=== PATIENT | male | born 1955 | race Caucasian/White ===

== ENCOUNTER 2023-04-09 08:55 | Outpatient (OUT) | payer MEDICARE, OTHER, SELFPAY ==
--- NOTE | 2023-04-09 09:19 | XR_ITS ---
The [address] [address] Patient Name: JANICE PANDYA MRN: [id number] date: 1955 Sex: M Assigned Patient Location: Current Patient Location: Accession/Order Number: [id number] Exam Date: 04/09/2023 09:22 Report Date: 04/09/2023 09:43 At the request of: JAGDEEP SCHMITZ Procedure: XR foot RT min 3V PROCEDURE: XR foot RT min 3V HISTORY: RIGHT FOOT PAIN ; deviation of the fifth toe causing irritation COMPARISON: XR foot right 11/28/2022 FINDINGS: BONES:Marked degenerative changes the first metatarsal phalangeal joint and chronic lateral deviation of the first toe. Resection of second toe at the metatarsophalangeal joint. Resection of distal end of fourth toe. Medial deviation of tip of fifth toe. SOFT TISSUES:Mild distal dorsal soft tissue swelling. EFFUSION:None visible. OTHER: Negative. IMPRESSION: 1. Stable surgical changes and chronic degenerative changes. 2. No appreciable new findings involving fifth toe. Electronically authenticated by: HUSAM GAMEZ Date: 04/09/2023 09:43
== END 2023-04-09 08:56 ==
PROVIDERS: PCP Family Medicine; Visit Provider Physician Assistant
DX: M79.671 Pain in right foot (principal); L97.511 Non-pressure chronic ulcer of other part of right foot limited to breakdown of skin; E11.621 Type 2 diabetes mellitus with foot ulcer; L60.8 Other nail disorders; E11.40 Type 2 diabetes mellitus with diabetic neuropathy, unspecified; E11.65 Type 2 diabetes mellitus with hyperglycemia; B35.1 Tinea unguium; I25.10 Atherosclerotic heart disease of native coronary artery without angina pectoris; M25.872 Other specified joint disorders, left ankle and foot; M20.5X2 Other deformities of toe(s) (acquired), left foot; M20.42 Other hammer toe(s) (acquired), left foot
CPT/HCPCS: 11055; 73630

== ENCOUNTER 2023-05-01 09:56 | Outpatient (OUT) | payer MEDICARE, OTHER, SELFPAY | END 2023-05-01 09:57 | disposition home or self-care (01) | LOC: WC 09:56 | PROVIDERS: PCP Family Medicine; Visit Provider Podiatrist Foot & Ankle Surgery | DX: E11.621 Type 2 diabetes mellitus with foot ulcer (principal); E11.65 Type 2 diabetes mellitus with hyperglycemia; L84 Corns and callosities; M20.42 Other hammer toe(s) (acquired), left foot; M20.5X2 Other deformities of toe(s) (acquired), left foot; L60.8 Other nail disorders; M25.872 Other specified joint disorders, left ankle and foot; I25.10 Atherosclerotic heart disease of native coronary artery without angina pectoris; B35.1 Tinea unguium; E11.40 Type 2 diabetes mellitus with diabetic neuropathy, unspecified; E78.5 Hyperlipidemia, unspecified; E03.9 Hypothyroidism, unspecified; L97.511 Non-pressure chronic ulcer of other part of right foot limited to breakdown of skin | CPT/HCPCS: G0463 ==

== ENCOUNTER 2023-08-09 12:24 | Outpatient (OUT) | payer MEDICARE, OTHER, SELFPAY ==
[2023-08-09 12:55] LABS: Basophils Absolute Auto 0.1 10^3/uL (0.0-0.1); Eosinophils Absolute Auto 1.7 10^3/uL (0.0-0.7); Eosinophils Percent Auto 18.8 % (0.9-7.0); Hemoglobin 12.5 g/dL (14.0-18.0); Immature Granulocytes Abs Auto 0.02 10^3/uL (0.00-0.03); Immature Granulocytes Pct Auto 0.2 % (0.0-0.5); Lymphocytes Absolute Auto 2.3 10^3/uL (1.2-3.8); Lymphocytes Percent Auto 24.4 % (20.5-60.0); Mean Corpuscular HGB Conc 29.8 g/dL (29.9-35.2); Mean Corpuscular Volume 77.3 fL (80.0-94.0); Mean Platelet Volume 10.7 fL (9.5-13.5); Monocytes Absolute Auto 0.7 10^3/uL (0.3-0.8); Monocytes Percent Auto 7.8 % (1.7-12.0); Neutrophils Absolute Auto 4.4 10^3/uL (1.4-6.5); Neutrophils Percent Auto 47.8 % (43.0-75.0); Platelet Count 281 10^3/uL (150-450); Red Blood Count 5.43 10^6/uL (4.70-6.10); Red Cell Distribution Width 18.4 % (11.0-15.0); White Blood Count 9.3 10^3/uL (4.0-11.0)
[2023-08-09 13:31] LABS: Creatinine Urine Random 82.09 mg/dL (20.00-300.00); Microalbum Creatinine Ratio Ur 21.9 mg/g (0.0-29.9); Microalbumin Urine Random 1.8 mg/dL (<=30.0)
[2023-08-09 13:32] LABS: Alanine Aminotransferase 25 U/L (16-63); Albumin Globulin Ratio 0.9; Albumin Level 3.9 g/dL (3.4-5.0); Alkaline Phosphatase 67 U/L (46-116); Anion Gap 13.7; Aspartate Amino Transferase 18 U/L (15-37); BUN Creatinine Ratio 20.8; Bilirubin Total 0.5 mg/dL (0.2-1.0); Calcium 9.3 mg/dL (8.5-10.1); Carbon Dioxide 25.5 mmol/L (21.0-32.0); Chloride 103 mmol/L (98-107); Chol HDL Ratio 9.6; Cholesterol 173 mg/dL (<=200); Estimated GFR (African America >60 (>=60); Estimated GFR (Non-African Ame 55 (>=60); Globulin 4.2 g/dL; Glucose 137 mg/dL (74-106); HDL Cholesterol 18 mg/dL (40-60); Potassium 4.2 mmol/L (3.5-5.1); Sodium 138 mmol/L (136-145); Total Protein 8.1 g/dL (6.4-8.2); Triglycerides 359 mg/dL (<=150); VLDL CHOLESTEROL 71.8 mg/dL
[2023-08-09 13:47] LABS: Prostate Specific Antigen Dx 0.48 ng/mL (<=4.00)
== END 2023-08-09 12:25 | disposition home or self-care (01) ==
LOC: LAB 12:26
PROVIDERS: PCP Family Medicine; Visit Provider Family Medicine
DX: E11.59 Type 2 diabetes mellitus with other circulatory complications (principal); Z12.5 Encounter for screening for malignant neoplasm of prostate
CPT/HCPCS: 36415; 80053; 80061; 82043; 82570; 84153; 85025

== ENCOUNTER 2024-11-25 16:09 | Outpatient (OUT) | payer MEDICARE, OTHER, SELFPAY | END 2024-11-25 16:10 | disposition home or self-care (01) | LOC: WC 16:09 | PROVIDERS: PCP Family Medicine; Visit Provider Physician Assistant | DX: L84 Corns and callosities (principal); E11.65 Type 2 diabetes mellitus with hyperglycemia; E11.621 Type 2 diabetes mellitus with foot ulcer; L97.428 Non-pressure chronic ulcer of left heel and midfoot with other specified severity | CPT/HCPCS: 11043 ==

== ENCOUNTER 2024-12-10 09:52 | Outpatient (OUT) | payer MEDICARE, OTHER, SELFPAY ==
--- OUTSIDE RECORDS SUMMARY | 2024-12-10 10:00 | XMS_ITS | CCD ---
Author Organization [facility] Care Team Providers Care Bartender Helper Name Role Phone TANJA NITISH~[phone] UNKNOWN Unavailable Unavailable Ayisire, Eseoghene N Unavailable Unavailable Ayisadam, Eseoghene N Unavailable Unavailable Nitish Martin Unavailable Unavailable Unavailable Jaelyn Espinal Unavailable Margaux Christian Admitting Unavailable Nitish Martin Primary Care Unavailable Margaux Christian Attending Unavailable Nitish Martin Primary Care Unavailable Margaux Christian Attending Unavailable Margaux Christian Admitting Unavailable Tanja, Dr. Nitish Crump Primary Care Unavaila Margaux South Attending Unavailable Mark, Dr. Helga Storey Referring Unavail able Tanja, Dr. Nitish Crump Primary Care Unavaila daisy Queen, Dr. Martin Zarate Referring Unava ilable Curt, Dr. Martin Zarate Attending Unava ilcarla Flores, Dr. Helga Storey Attending Unavail able Tanja, Dr. Nitish Crump Primary Care Unavaila daisy Flores, Dr. Helga Storey Referring Unavail able NISHA IVORY Attending Unavailable NISHA VIORY Admitting Unavailable DR NITISH MARTIN Primary Care Unavailable SHAIKH Magui GOMEZ Attending Unavailable DR NITISH MARTIN Primary Care Unavailable Husam Fischer Consulting Unavailable SEVEN GOMEZIKH H Admitting Unavailable NISHA IVORY Procedure Practitioner RHONDA Fulton Consulting Unavailable NISHA IVORY Consulting Unavailable DALLIN, WYATT Consulting Unavailable JESSICA STEIN Consulting Unavailable HELGA GOLDBERG Consulting Unavailable PATRICIA, JUNIOR H Consulting Unavailable AYYAGARI ., LILA Consulting Unavailable NISHA IVORY Attending Unavailable NISHA IVORY Admitting Unavailable TANJA, DR CLEMENS Primary Care Unavailable HIGHLANDER, NISHA Núñez Consulting Unavailable HIGHLANDER, NISHA Núñez Attending Unavailable HIGHLANDER, NISHA Núñez Admitting Unavailable TANJA, DR CLEMENS Primary Care Unavailable HIGHLANDER, NISHA Núñez Attending Unavailable HIGHLANDER, NISHA Núñez Admitting Unavailable TANJA, DR CLEMENS Primary Care Unavailable HIGHLANDER, NISHA Núñez Admitting Unavailable TANJA, DR CLEMENS Primary Care Unavailable HIGHLANDER, NISHA Núñez Attending Unavailable HIGHLANDER, NISHA Núñez Attending Unavailable HIGHLANDER, NISHA Núñez Admitting Unavailable TANJA, DR CLEMENS Primary Care Unavailable WEST, DR ROSA MARIA Smith Consulting Unavailable HIGHLANDER, NISHA Núñez Consulting Unavailable AGUBOSIM, WYATT Consulting Unavailable LONG, JESSICA Consulting Unavailable TANJA, DR CLEMENS Primary Care Unavailable Zieblexie, Husam Consulting Unavailable HIGHLANDER, NISHA Núñez Attending Unavailable HIGHLANDER, NISHA Núñez Admitting Unavailable HIGHLANDER, NISHA Núñez Consulting Unavailable TANJA, DR CLEMENS Primary Care Unavailable AINSLEY, JAGDEEP Admitting Unavailable AINSLEY, JAGDEEP Attending Unavailable TANJA, DR CLEMENS Primary Care Unavailable HIGHLANDER, NISHA Núñez Attending Unavailable HIGHLANDER, NISHA Núñez Admitting Unavailable HIGHLANDER, NISHA Núñez Admitting Unavailable TANJA, DR CLEMENS Primary Care Unavailable HIGHLANDER, NISHA Núñez Consulting Unavailable HIGHLANDER, NISHA Núñez Attending Unavailable WHITAKERJOSE MARTIN Consulting Unavailable TANJA, DR CLEMENS Primary Care Unavailable HIGHLANDER, NISHA Núñez Admitting Unavailable HIGHLANDER, NISHA Núñez Attending Unavailable TANJA, DR CLEMENS Primary Care Unavailable HIGHLANDER, NISHA Núñez Attending Unavailable HIGHLANDER, NISHA Núñez Admitting Unavailable HIGHLANDER, NISHA Núñez Admitting Unavailable TANJA, DR CLEMENS Primary Care Unavailable HIGHLANDER, NISHA Núñez Attending Unavailable HIGHLANDER, NISHA Núñez Attending Unavailable HIGHLANDER, NISHA Núñez Admitting Unavailable TANJA, DR CLEMENS Primary Care Unavailable TANJA, DR CLEMENS Primary Care Unavailable HIGHLANDER, NISHA Núñez Attending Unavailable HIGHLANDER, NISHA Núñez Admitting Unavailable HIGHLANDER, NISHA Núñez Attending Unavailable HIGHLANDER, NISHA Núñez Admitting Unavailable TANJA, DR CLEMENS Primary Care Unavailable HIGHLANDER, NISHA Núñez Attending Unavailable HIGHLANDER, NISHA Núñez Admitting Unavailable TANJA, DR CLEMENS Primary Care Unavailable HIGHLANDER, NISHA Núñez Attending Unavailable HIGHLANDER, NISHA Núñez Admitting Unavailable ZieberHusam Consulting Unavailable TANJA, DR CLEMENS Primary Care Unavailable HIGHLANDER, NISHA Núñez Consulting Unavailable HIGHLANDER, NISHA Núñez Admitting Unavailable TANJA, DR CLEMENS Primary Care Unavailable HIGHLANDER, NISHA Núñez Attending Unavailable Barbara Ellis Unavailable Nitish Martin DO Primary Care Provider MARTIN QUEEN Attending Unavailable NITISH MARTIN Primary Care Unavailable Lashaun Bradley DO Unavailable [phone] Nitish Martin DO Primary Care Provider [phone] Elliot Queen MD Unavailable [phone] Nisha Ivory MD Unavailable LASHAUN BRADLEY Attending Unavailable NITISH MARTIN Referring Unavailable NITISH MARTIN Attending Unavailable EMELYN ZUNIGA Attending Unavailable LASHAUN BRADLEY Attending Unavailable LASHAUN BRADLEY Attending Unavailable NITISH MARTIN Referring Unavailable JOYCE RAMSEY Attending Unavailable NITISH MARTIN Attending Unavailable NITISH MARTIN Referring Unavailable BARI CHOWDHURY Attending Unavailable LASHAUN BRADLEY Attending Unavailable Allergies Allergy Classification Reported Allergen(s) Allergy Type Date of Onset Reaction(s) Facility (4 sources) Angiotensin Converting Enzyme (Enris) Inhibitors; Translations: [NERIS Inhibitors] Allergy to drug (finding) 3 Hypotension [facility] 3 Repository (1 source) Angiotensin-conv erting enzyme inhibitor agent Drug Intolerance 3 Unknown [facility] Medications Current Medications Medication Drug Class(es) Dates Sig (Normalized) Sig (Original) aspirin 81 mg delayed release oral tablet (20 sources) Platelet Aggregation Inhibitor, Nonsteroidal Anti-inflammatory Drug take 1 tablet by mouth in the morning aspirin 81 MG EC tablet Take 81 mg by mouth in the morning. Active Aspirin Active atorvastatin 20 mg oral tablet (20 sources) HMG-CoA Reductase Inhibitor Start: 10-15-2024 take 1 tablet by mouth once daily in the evening atorvastatin (Lipitor) 20 MG tablet Indications: Mixed hyperlipidemia (CMS/HCC) TAKE 1 TABLET BY MOUTH EVERY DAY IN THE EVENING FOR 90 DAYS 90 tablet 3 10/15/2024 Active Start: 01-07-2024 take 1 tablet by rob th once daily in the evening atorvastatin (Lipitor) 20 MG tablet Indications: Mixed hyperlipidemia (CMS/HCC) TAKE 1 TABLET BY MOUTH EVERY DAY IN THE EVENING FOR 90 DAYS 90 tablet 3 01/07/2024 Active Atorvastatin Jacki cium Active Blood Glucose Monitoring Suppl (Luma[employer]uch Verio Flex System) w/Device kit (13 sources) Blood Glucose Monitoring Suppl (One[employer]uch Verio Flex System) w/Device kit Active canagliflozin 100 mg oral tablet (17 sources) Sodium-Glucose Cotransporter 2 Inhibitor take 1 tablet by mouth once daily canagliflozin (Invokana) 100 mg Take 1 tablet (100 mg) by mouth once daily. 0 Active Invokana Active carvedilol 6.25 mg oral tablet (20 sources) alpha-Adrenergic Feroz, beta-Adrenergic Feroz Start: 01-16-2024 take 1 tablet by mouth twice daily at mealtime carvedilol (Coreg) 6.25 mg tablet Indications: Multiple vessel coronary artery disease TAKE 1 TABLET BY MOUTH TWICE A DAY WITH MEALS 180 tablet 0 01/16/2024 Active Carvedilol Activ e ciclopirox 10 mg/ml medicate d shampoo (20 sources) Start: 06-27-2024 Ciclopirox 1 % shampoo Indications: Other seborrheic dermatitis Lather on wet hair, leave on 5 min, rinse 2-3 x week, 30 day supply 120 mL 11 06/27/2024 Active Start: 06-27-2024 ciclopirox (Lo prox) 0.77 % cream Indications: Other seborrheic dermatitis Apply thin layer to affected area once a day, 30 day supply 30 g 11 06/27/2024 Active clindamycin 300 mg oral capsule (1 source) Lincosamide Antibacterial Start: 05-10-2023 take 1 capsule by mouth every eight hours Clindamycin HCl 300 MG 1 cap(s) Orally tid for 10 day(s) May, Active clopidogrel 75 mg oral tablet (20 sources) P2Y12 Platelet Inhibitor take 1 tablet by mouth in the morning clopidogrel (Plavix) 75 MG tablet Take 75 mg by mouth in the morning. Active Clopidogrel Bisu lfate Active dapagliflozin 5 mg oral tablet (16 sources) Sodium-Glucose Cotransporter 2 Inhibitor Start: 03-03-2024 End: 03-03-2025 take 1 tablet by mouth once daily dapagliflozin (Farxiga) 5 MG Indications: Type 2 diabetes mellitus with other circulatory complications (CMS/HCC) Take 1 tablet (5 mg) by mouth Daily 90 tablet 3 03/03/2024 03/03/2025 Active take 1 tablet by mouth once valeriano y dapagliflozin propanediol (Farxiga) 5 mg Take 1 tablet (5 mg) by mouth once daily. 0 Active 0.5 ml dulaglutide 3 mg/ml auto-injector (15 sources) GLP-1 Receptor Agonist dulagluti de (Trulicity) 1.5 mg/0.5 mL pen injector injection Inject under the skin. 0 Active Trulicity 0.75 M G/0.5ML Subcutaneous Solution Pen-injector as directed Quantity: 0 Refills: 0 Ordered: 27-Sep-2021 DO Active fenofibrate 145 mg oral tablet (20 sources) Peroxisome Proliferator Receptor alpha Agonist Start: 08-31-2023 take 1 tablet by mouth once daily fenofibrate (Tricor) 145 mg tablet Indications: Hyperlipidemia, unspecified hyperlipidemia type Take 1 tablet (145 mg) by mouth once daily. 90 tablet 1 08/31/2023 Active Fenofibrate Acti ve 24 hr isosorbide mononitrate 60 mg extended release oral tablet (20 sources) Nitrate Vasodilator Start: 10-20-2021 take 1 tablet by mouth once daily isosorbide mononitrate ER (Imdur) 60 mg 24 hr tablet Take 1 tablet (60 mg) by mouth once daily. 0 10/20/2021 Active Start: 10-20-2021 take 1 tablet by rob th once daily Isosorbide Mononitrate ER 30 MG Oral Tablet Extended Release 24 Hour TAKE 1 TABLET DAILY. Quantity: 90 Refills: 3 Ordered: 20-Oct-2021 Helga Flores DO Start : 20-Oct-2021 Active levothyroxine sodium 0.2 mg oral tablet (20 sources) l-Thyroxine Start: 06-11-2023 End: 07-28-2024 take 1 tablet by mouth once daily levothyroxine (Synthroid, Levoxyl) 200 MCG tablet Indications: Other specified hypothyroidism (CMS/HCC) TAKE 1 TABLET BY MOUTH EVERY DAY 90 tablet 3 07/28/2024 Active Synthroid Active 24 hr metFORMIN hydrochloride 500 mg extended release oral tablet (20 sources) Biguanide Start: 08-06-2023 End: 09-02-2024 take 1 tablet by mouth twice daily metFORMIN XR (Glucophage-XR) 500 MG 24 hr tablet Indications: Type 2 diabetes mellitus with other circulatory complications (CMS/HCC) TAKE 1 TABLET BY MOUTH TWICE A DAY 180 tablet 1 09/02/2024 Active take 1 tablet by mouth every twe lve hours metFORMIN, OSM, (Fortamet) 500 mg 24 hr tablet Take 1 tablet (500 mg) by mouth every 12 hours. Do not crush, chew, or split. 0 Active take 1 tablet by th every twelve hours at mealtime metFORMIN HCl - 500 MG Oral Tablet TAKE 1 TABLET EVERY 12 HOURS WITH FOOD. Quantity: 0 Refills: 0 Ordered: 23-Jan-2023 DO Active take 1 tablet by mouth once valeriano y metFORMIN HCl - 1000 MG Oral Tablet TAKE 1 TABLET EVERY 12 HOURS DAILY. Quantity: 0 Refills: 0 Ordered: 27-Sep-2021 DO Active metFORMIN HCl Ac tive nitroglycerin 0.4 mg subling ual tablet (20 sources) Nitrate Vasodilator nitroglyceri n (Nitrostat) 0.[address] 0.4 mg under the tongue every 5 (five) minutes if needed for chest pain. Active Nitrostat Not-Ta gregory Semaglutide, 2 MG/DOSE, (Ozempic, 2 MG/DOSE,) 8 MG/3ML solution pen-injector (7 sources) Start: 09-01-2024 inject 2 mg by subcutaneous injection every week Semaglutide, 2 MG/DOSE, (Ozempic, 2 MG/DOSE,) 8 MG/3ML solution pen-injector Indications: Type 2 diabetes mellitus with other circulatory complications (CMS/HCC) Inject 2 mg under the skin 1 (one) time per week 9 mL 3 09/01/2024 Active Completed/Discontinued Medications Medication Drug Class(es) Dates Sig (Normalized) Sig (Original) semaglutide (Ozempic, 1 MG/DOSE,) 4 MG/3ML solution pen-injector (8 sources) Start: 03-03-2024 End: 09-01-2024 inject 1 mg by subcutaneous injection every week semaglutide (Ozempic, 1 MG/DOSE,) 4 MG/3ML solution pen-injector Indications: Type 2 diabetes mellitus with other circulatory complications (CMS/HCC) Inject 1 mg under the skin 1 (one) time per week 9 mL 3 03/03/2024 09/01/2024 Discontinued Start: 03-03-2024 End: 03-03-2025 inject 1 mg by subcutaneous injection every week semaglutide (Ozempic, 1 MG/DOSE,) 4 MG/3ML solution pen-injector Indications: Type 2 diabetes mellitus with other circulatory complications (CMS/HCC) Inject 1 mg under the skin 1 (one) time per week 9 mL 3 03/03/2024 03/03/2025 Active Problems Active Problems Problem Classification Problem Date Documented Date Episodic/Chronic Acquired foot deformities (1 source) Other hammer toe(s) (acquired), left foot; Translations: [OTHER HAMMER TOES ACQUIRED LT FOOT] Onset: 12-05-2022 Chronic Acute cerebrovascular disease (1 source) Other nontraumatic subarachnoid hemorrhage; Translations: [OTH NONTRAUM SUBARACHNOID HEMORR] Onset: 11-22-2022 Chronic Chronic kidney disease (15 sources) Chronic kidney disease stage 3A ; Translations: [Stage 3a chronic kidney disease (CKD)] Onset: 08-09-2023 08-09-2023 Chronic Chronic ulcer of skin (9 sources) Non-pressure chronic ulcer of other part of right foot limited to breakdown of skin; Translations: [Non-pressure chronic ulcer of other part of right foot with fat layer exposed] Onset: 03-28-2022 Chronic Congestive heart failure; nonhypertensive (3 sources) Congestive heart failure stage C; Translations: [Congestive heart failure, unspecified] Onset: 08-31-2023 08-31-2023 Chronic Coronary atherosclerosis and other heart disease (20 sources) Multi vessel coronary artery disease; Translations: [Coronary atherosclerosis of unspecified type of vessel, lytton or graft] Onset: 03-29-2016 01-29-2024 Chronic Coronary atherosclerosis and other heart disease (2 sources) Presence of aortocoronary bypass graft; Translations: [Presence of aortocoronary bypass graft] Onset: 08-31-2023 Episodic Diabetes mellitus with complications (20 sources) Type 2 diabetes mellitus with diabetic neuropathy, unspecified; Translations: [Type 2 diabetes mellitus with hyperglycemia] Onset: 03-22-2022 Chronic Diabetes mellitus without complication (16 sources) Diabetes mellitus; Translations: [Diabetes mellitus without mention of complication, type II or unspecified type, not stated as uncontrolled] Onset: 08-31-2023 08-31-2023 Chronic Disorders of lipid metabolism (20 sources) Hyperlipidemia; Translations: [Other and unspecified hyperlipidemia] Onset: 12-05-2022 01-29-2024 Chronic Esophageal disorders (13 sources) Gastroesophageal reflux disease without esophagitis; Translations: [Gastro-esophageal reflux disease without esophagitis] Onset: 03-29-2016 08-06-2023 Chronic Essential hypertension (20 sources) Hypertensive disorder; Translations: [Unspecified essential hypertension] Onset: 08-31-2023 01-29-2024 Chronic Gout and other crystal arthropathies (1 source) Gout, unspecified; Translations: [GOUT UNSPECIFIED] Onset: 12-05-2022 Chronic Immunizations and screening for infectious disease (2 sources) Patient encounter status; Translations: [Encounter for immunization] 12-04-2024 Episodic Infective arthritis and osteomyelitis (except that caused by tuberculosis or sexually transmitted disease) (1 source) Other acute osteomyelitis, right ankle and foot; Translations: [OTH ACUTE OSTEOMYEL RT ANKLE FOOT] Onset: 03-28-2022 Chronic Osteoarthritis (13 sources) Osteoarthritis of knee; Translations: [Osteoarthritis of knee, unspecified] Onset: 03-29-2016 08-06-2023 Chronic Other acquired deformities (1 source) Contracture, left ankle; Translations: [CONTRACTURE LEFT ANKLE] Onset: 12-05-2022 Chronic Other aftercare (2 sources) exterminator helper (current) use of insulin; Translations: [correction (current) use of insulin ([facility])] Onset: 08-31-2023 Episodic Other bone disease and musculoskeletal deformities (2 sources) Absence of toe; Translations: [Acquired absence of other right toe(s)] 08-04-2024 Episodic Other circulatory disease (16 sources) Patient post angioplasty; Translations: [Other postprocedural status] Onset: 08-31-2023 01-29-2024 Episodic Other circulatory disease (2 sources) Peripheral vascular angioplasty status; Translations: [Peripheral vascular angioplasty status] Onset: 08-31-2023 Episodic Other nutritional; endocrine; and metabolic disorders (10 sources) Obesity; Translations: [Obesity, unspecified] Chronic Other nutritional; endocrine; and metabolic disorders (6 sources) Overweight in adulthood with body mass index of 25 or more but less than 30; Translations: [Overweight] Onset: 01-29-2024 01-29-2024 Episodic Other nutritional; endocrine; and metabolic disorders (2 sources) Body mass index (BMI) 29.0-29.9, adult; Translations: [Body mass index (BMI) 29.0-29.9, adult] Onset: 01-29-2024 Episodic Other screening for suspected conditions (not mental disorders or infectious disease) (13 sources) Cardiovascular stress test abnormal; Translations: [Other nonspecific abnormal results of function study of cardiovascular system] Onset: 08-31-2023 08-31-2023 Episodic Other skin disorders (5 sources) Corns and callosities; Translations: [CORNS AND CALLOSITIES] Onset: 05-30-2022 Episodic Poisoning by nonmedicinal substances (1 source) Toxic effect of unspecified spider venom, undetermined, initial encounter Episodic Residual codes; unclassified (2 sources) Never smoked tobacco; Translations: [Other specified health status] Onset: 01-29-2024 01-29-2024 Episodic Residual codes; unclassified (2 sources) Other specified health status; Translations: [Other specified health status] Onset: 01-29-2024 Episodic Residual codes; unclassified (2 sources) Family history of malignant neoplasm of thyroid; Translations: [Family history of malignant neoplasm of other organs or systems] 06-16-2024 Episodic Sprains and strains (2 sources) Sprain of foot; Translations: [Sprain of foot, left] Episodic Thyroid disorders (3 sources) Hypothyroidism, unspecified; Translations: [Acquired hypothyroidism] Onset: 12-05-2022 06-16-2024 Chronic Unclassified (1 source) R94.39 - Abnormal result of other cardiovascular function study; Translations: [R94.39 - Abnormal result of other cardiovascular function study] Onset: 03-14-2022 Unclassified (1 source) Z01.812 - Encounter for preprocedural laboratory examination; Translations: [Z01.812 - Encounter for preprocedural laboratory examination] Onset: 03-10-2022 Unclassified (1 source) CONTACT W/AND (SUSP) EXPOS COVID-19; Translations: [CONTACT W/AND (SUSP) EXPOS COVID-19] Onset: 06-13-2022 Past or Other Problems Problem Classification Problem Date Documented Da te Episodic/Chronic Acquired foot deformities (1 source) Other deformities of toe(s) (acquired), left foot; Translations: [OTHER DEFORMITIES TOES ACQ LT FOOT] Onset: 12-05-2022 Episodic Acquired foot deformities (1 source) Other deformities of toe(s) (acquired), right foot; Translations: [OTHER DEFORMITIES TOES ACQ RT FOOT] Onset: 07-13-2022 Episodic Deficiency and other anemia (13 sources) Anemia; Translations: [Anemia, unspecified] Onset: 03-29-2016 08-06-2023 Episodic Mood disorders (2 sources) Mood disorders Onset: 12-04-2024 12-04-2024 Mycoses (5 sources) Tinea unguium; Translations: [TINEA UNGUIUM] Onset: 10-24-2022 Episodic Other aftercare (1 source) exterminator helper (current) use of aspirin; Translations: [PROPOSAL CONSULTANT CURRENT USE OF ASPIRIN] Onset: 03-28-2022 Episodic Other aftercare (1 source) Other intermodal customer service (current) drug therapy; Translations: [OTH PROPOSAL CONSULTANT CURRENT DRUG THERAPY] Onset: 03-28-2022 Episodic Other bone disease and musculoskeletal deformities (1 source) Acquired absence of other right toe(s); Translations: [ACQUIRED ABSENCE OTHER RIGHT TOES] Onset: 12-05-2022 Episodic Other connective tissue disease (1 source) Plantar fascial fibromatosis; Translations: [PLANTAR FASCIAL FIBROMATOSIS] Onset: 12-05-2022 Episodic Other connective tissue disease (4 sources) Pain in right foot; Translations: [PAIN IN RIGHT FOOT] Onset: 11-28-2022 Episodic Other inflammatory condition of skin (2 sources) Seborrheic dermatitis; Translations: [Other seborrheic dermatitis] 06-27-2024 Episodic Other inflammatory condition of skin (2 sources) Erythema of skin; Translations: [Other specified erythematous conditions] 06-27-2024 Episodic Other non-traumatic joint disorders (1 source) Other specified joint disorders, left ankle and foot; Translations: [OTHER SPEC JOINT D/O LT ANKLE FOOT] Onset: 12-05-2022 Episodic Other skin disorders (1 source) Other nail disorders; Translations: [OTHER NAIL DISORDERS] Onset: 12-05-2022 Episodic Other skin disorders (1 source) Epidermal thickening, unspecified; Translations: [EPIDERMAL THICKENING UNSPECIFIED] Onset: 06-15-2022 Episodic Other skin disorders (1 source) Ingrowing nail; Translations: [INGROWING NAIL] Onset: 04-12-2022 Episodic Other skin disorders (2 sources) Skin tag; Translations: [Other hypertrophic disorders of the skin] 06-27-2024 Episodic Other skin disorders (2 sources) Inflamed seborrheic keratosis; Translations: [Inflamed seborrheic keratosis] 06-27-2024 Episodic Other upper respiratory infections (1 source) Acute pharyngitis, unspecified Onset: 10-10-2021 Resolved: 10-10-2021 Episodic Skin and subcutaneous tissue infections (1 source) Cellulitis of right lower limb; Translations: [CELLULITIS OF RIGHT LOWER LIMB] Onset: 03-28-2022 Episodic Superficial injury; contusion (1 source) Blister (nonthermal), right lesser toe(s), initial encounter; Translations: [BLISTER NONTHERM RT LESSR TOES INIT] Onset: 03-28-2022 Episodic Unclassified (14 sources) Never smoked tobacco; Translations: [Never a smoker] Unclassified (1 source) Onset: 01-29-2024 01-29-2024 Results Test Name Value Interpretation Reference Range Facility HbA1c (Bld) [Mass fraction]o n 12-01-2024 Interpretation and review of laboratory results [facility] 12-01-2024 HbA1c (Bld) [Mass fraction] 7.7 % [facility] HbA1c (Bld) [Mass fraction]o n 09-01-2024 Interpretation and review of laboratory results Abnormal [facility] 09-01-2024 HbA1c (Bld) [Mass fraction] 8.6 % [facility] No Panel Informationon 06-27 [facility] [employer] Carcinoembryonic Ag [Mass/Vo l]on 06-20-2024 Performing Organization Information Site ID: [id number] Name: [facility] Address: [address] [place] [id number] Director: Edil Bedolla MD [facility] Laboratory - Chemistry and C hemistry - challengeon 06-20-2024 Calcitonin [Mass/Vol] 6 pg/mL NINF - 10 pg/mL [facility] Comment on above: This test was performed using the Siemens Chemiluminescent method. Values obtained with different assay methods cannot be used interchangeably. Calcitonin levels, regardless of value, should not be interpreted as absolute evidence of the presence or absence of the disease. Carcinoembryonic Ag [Mass/Vol] ng/mL See Note: ng/mL [facility] Comment on above: Reference Range: Non-Smoker: <2.5 Smoker: <5.0 This test was performed using the Siemens chemiluminescent method. Values obtained from different assay methods cannot be used interchangeably. CEA levels, regardless of value, should not be interpreted as absolute evidence of the presence or absence of disease. No Panel Informationon 06-20 Performing Organization Information Site ID: [id number] Name: [facility] [place] Address: [address] [place] [address] Dr [place], [place] Director: Huan Tate M.D.,PhD [facility] US THYROIDon 06-16-2024 US THYROID EXAM: Thyroid Ultrasound: REASON FOR EXAM: Family history of thyroid cancer. COMPARISON: None. TECHNIQUE: Grayscale imaging with color flow Doppler was performed. FINDINGS: The thyroid lobes are symmetric in size and echogenicity. Diffusely heterogeneous. No discrete nodule or mass lesion. Isthmus upper limits of normal. Measurements: Right Lobe: 3.9 x 1.4 x 1.4 cm Left Lobe: 4.1 x 1.3 x 1.5 cm Isthmus: 0.60 cm IMPRESSION: No sonographic evidence of discrete thyroid nodule. *This report is generated using voice recognition reporting (Zipnosis). On occasion Zipnosis erroneously drops words from the report or replaces the spoken word with similar sounding words. Please call with any questions/concerns regarding this report.* Dictated and transcribed 06/16/2024/jf This report has been electronically signed and approved by the interpreting radiologist. Electronically Signed Martin Christianson II, M.D. 2024-06-16 16:43:23 Normal Not Available US Thyroid glandon EXAM: Thyroid Ultrasound: REASON FOR EXAM: Family history of thyroid cancer. COMPARISON: None. TECHNIQUE: Grayscale imaging with color flow Doppler was performed. FINDINGS: The thyroid lobes are symmetric in size and echogenicity. Diffusely heterogeneous. No discrete nodule or mass lesion. Isthmus upper limits of normal. Measurements: Right Lobe: 3.9 x 1.4 x 1.4 cm Left Lobe: 4.1 x 1.3 x 1.5 cm Isthmus: 0.60 cm IMPRESSION: No sonographic evidence of discrete thyroid nodule. *This report is generated using voice recognition reporting ([employer]). On occasion PowerScribe erroneously drops words from the report or replaces the spoken word with similar sounding words. Please call with any questions/concerns regarding this report.* Dictated and transcribed 06/16/2024/[place] This report has been electronically signed and approved by the interpreting radiologist. Electronically Signed Martin Christianson II, M.D. 2024-06-16 16:43:23 IMAGING Martin Christianson MD - 06/16/2024 EXAM: Thyroid Ultrasound: REASON FOR EXAM: Family history of thyroid cancer. COMPARISON: None. TECHNIQUE: Grayscale imaging with color flow Doppler was performed. FINDINGS: The thyroid lobes are symmetric in size and echogenicity. Diffusely heterogeneous. No discrete nodule or mass lesion. Isthmus upper limits of normal. Measurements: Right Lobe: 3.9 x 1.4 x 1.4 cm Left Lobe: 4.1 x 1.3 x 1.5 cm Isthmus: 0.60 cm IMPRESSION: No sonographic evidence of discrete thyroid nodule. *This report is generated using voice recognition reporting ([employer]). On occasion PowerScribe erroneously drops words from the report or replaces the spoken word with similar sounding words. Please call with any questions/concerns regarding this report.* Dictated and transcribed 06/16/2024/ This report has been electronically signed and approved by the interpreting radiologist. Electronically Signed Martin Christianson II, M.D. 2024-06-16 16:43:23 [facility] Radiology Study observation (narrative) [facility] Med[employer] US Thyroid glandOrdered By: Martin Christianson on 06-16-2024 [facility] [employer] Work Phone: Office Visit (Cardiology)on 01-23-2023 Follow-up visit Diagnoses/Problems Assessed Multiple vessel coronary artery disease (414.00) (I25.10) History of coronary artery bypass graft (V45.81) (Z95.1) Angina pectoris (413.9) (I20.9) Status post angioplasty (V45.89) (Z98.62) Diabetes mellitus (250.00) (E11.9) CHF (NYHA class II, ACC/AHA stage C) (428.0) (I50.9) Chronic myocardial ischemia (414.8) (I25.9) Class 1 obesity with body mass index (BMI) of 30.0 to 30.9 in adult (278.00,V85.30) (E66.9,Z68.30) Never a smoker Arteriosclerotic cardiovascular disease (ASCVD) (429.2,440.9) (I25.10) Orders Angina pectoris, Hypertension Renew: Carvedilol 6.25 MG Oral Tablet; TAKE 1 TABLET TWICE DAILY WITH MEALS Class 1 obesity with body mass index (BMI) of 30.0 to 30.9 in adult Healthy Weight Tips; Status:Complete - Retrospective Authorization; Done: 23Jan2023 Some eating tips that can help you lose weight.; Status:Complete - Retrospective Authorization; Done: 23Jan2023 Hyperlipidemia Renew: Atorvastatin Calcium 20 MG Oral Tablet; TAKE 1 TABLET AT BEDTIME Multiple vessel coronary artery disease Renew: Aspirin EC 81 MG Oral Tablet Delayed Release; TAKE 1 TABLET DAILY DIRECTED Renew: Nitroglycerin 0.4 MG Sublingual Tablet Sublingual; DISSOLVE 1 TABLET UNDER THE TONGUE NEEDED FOR CHEST PAIN UP TO 3 DOSES IN 15 MINUTES Multiple vessel coronary artery disease, Status post angioplasty Stop: Clopidogrel Bisulfate 75 MG Oral Tablet SocHx: Never a smoker Tobacco Use Screening; Status:Complete; Done: 23Jan2023 Patient Instructions Please bring all medicines, vitamins, and herbal supplements with you when you come to the office. Prescriptions will not be filled unless you are compliant with your follow up appointments or have a follow up appointment scheduled as per instruction of your physician. Refills should be requested at the time of your visit. stop plavix when done with bottle Follow up in 1 year Chief Complaint JANICE PANDYA is being seen for a 6 month follow-up of. 67-year-old gentleman returns for follow-up, former patient of Dr. Flores now seeing me for the first time. 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 Last heart catheterization from March [address] Christian is reviewed; revealing: Occluded LAD, patent WALL to the LAD with good runoff and good caliber distally giving collaterals to the occluded right coronary, occluded right coronary, circumflex with a stent in the proximal and mid segment with good result. The first marginal branch is small with a 70% stenosis and there are no other grafts noted. Patient has mild LV dysfunction with ejection fraction of 45%. Patient's underlying comorbidities are noted for diabetes mellitus, obesity, mild ischemic cardiomyopathy with ejection fraction 45% the above-mentioned CABG and stenting He states his glucoses running around 150-1 60 at home and remains otherwise in appropriate therapies from our standpoint he is not on a NERIS or ARB as he has adverse reaction/allergy to NERIS inhibitors (hypotension) Recommendations, continue current therapies, obtain appropriate laboratories, follow-up in 1 year Surgical History Problems History of Cardiac catheterization with stent placement History of Complete colonoscopy History of Foot surgery toe amputation History of Knee replacement History of Surgery Current Meds Medication NameInstruction Aspirin EC 81 MG Oral Tablet Delayed ReleaseTAKE 1 TABLET DAILY DIRECTED. Atorvastatin Calcium 20 MG Oral TabletTAKE 1 TABLET AT BEDTIME. Carvedilol 6.25 MG Oral TabletTAKE 1 TABLET TWICE DAILY WITH MEALS. Clopidogrel Bisulfate 75 MG Oral TabletTAKE 1 TABLET DAILY. Farxiga 5 MG Oral TabletTAKE 1 TABLET BY MOUTH EVERY MORNING Fenofibrate 145 MG Oral TabletTAKE 1 TABLET DAILY. Invokana 100 MG Oral TabletTake 1 tablet daily Isosorbide Mononitrate ER 60 MG Oral Tablet Extended Release 24 HourTAKE 1 TABLET DAILY DIRECTED. metFORMIN HCl - 500 MG Oral TabletTAKE 1 TABLET EVERY 12 HOURS WITH FOOD. Nitroglycerin 0.4 MG Sublingual Tablet SublingualDISSOLVE 1 TABLET UNDER THE TONGUE NEEDED FOR CHEST PAIN UP TO 3 DOSES IN 15 MINUTES Synthroid 200 MCG Oral TabletTAKE 1 TABLET DAILY DIRECTED. Trulicity 1.5 MG/0.5ML Subcutaneous Solution Pen-injectorUSE DIRECTED Allergies Medication NERIS Inhibitors Adverse Reaction; Hypotension;; Recorded By: Franchesca Adan; 05/01/2022 10:50:25 AM Social History Problems Caffeine use (V49.89) (Z78.9) occassional Never a smoker No alcohol use No illicit drug use Review of Systems Constitutional: not feeling tired. Cardiovascular: chest pain, but no intermittent leg claudication and as noted in HPI. Respiratory: shortness of breath during exertion, but no cough and no shortness of breath. Gastrointestinal: no change in bowel habits and no blood in stools. Integumentary: no skin rashes. Neurological: no seizures and no frequent falls. All other systems have been reviewed and are negat (more content not included)... Normal [facility] [employer] Tobacco Screening.on 023 Adult depression screening assessment No [facility] 250 DO Work Phone: Fall risk assessment a) No falls within the last year [facility] 250 DO Work Phone: Tobacco use status [facility] b) No [facility] 250 DO Work Phone: ACID FAST SMEAR AND CXon Acid Fast Culture Negative Normal [facility] Comment on above: Result Comment: No a monse fast bacilli isolated after 6 weeks. Performed By: #### A FB #### [facility] [address] [place] [address] Dr. Balta Gorman Acid Fast Smear Negative Normal [facility] Comment on above: Performed By: #### A FB #### [facility] [address] [place] [address] Dr. 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 [address] [place] [address] Dr. Balta Gorman FUNGAL CULTUREon 07-11-2022 Fungus (Mycology) Culture Final report [facility] Comment on above: Performed By: #### C XFUN #### [facility] [address] [place] [address] Dr. Balta Gorman Fungus Stain Final report Normal [facility] Comment on above: Performed By: #### C XFUN #### [facility] [address] [place] [address] Dr. Balta Gorman Result 1 Comment Normal [facility] Comment on above: Result Comment: FRANCISCA/ Calcofluor preparation: no fungus observed. Performed By: #### C XFUN #### [facility] [address] [place] [address] Dr. Balta Gorman Result Comment: No y east or mold isolated after 4 weeks. WOUND CULTUREon 06-15-2022 Bacteria identified Aer cx Nom (Unsp spec) Final report Normal [facility] Comment on above: Performed By: #### A FB #### [facility] [address] [place] [address] Dr. Balta Gorman Result 1 Comment Normal [facility] Comment on above: Result Comment: No g rowth in 36 - 48 hours. Performed By: #### A FB #### [facility] [address] [address] [address] Balta CAVAZOS STAINon 06-12-2022 DIPHTHEROIDS Normal [facility] Comment on above: Performed By: #### C VDTBH #### [facility] [address] [address] [address] Balta Gorman EPITHELIALS Normal [facility] Comment on above: Performed By: #### C VDTBH #### [facility] [address] [place] [address] Dr. Balta Gorman FUNGAL ELEMENTS Normal [facility] Comment on above: Performed By: #### C VDTBH #### [facility] [address] [address] [address] Balta CAVAZOS NEG BACILLI Normal [facility] Comment on above: Performed By: #### C VDTBH #### [facility] [address] [place] [address] Dr. Balta CAVAZOS NEG DIPPLOCOCCI Normal [facility] Comment on above: Performed By: #### C VDTBH #### [facility] [address] [place] [address] Dr. Balta CAVAZOS POS BACILLI Normal [facility] Comment on above: Performed By: #### C VDTBH #### [facility] [address] [place] [address] Dr. Balta Gorman GRAM POSITIVE COCCI Normal [facility] Comment on above: Performed By: #### C VDTBH #### [facility] [address] [place] [address] Dr. Balta Gorman GRAM STAIN SOURCE Rt 4th Toe Bone Normal [facility] Comment on above: Performed By: #### C VDTBH #### [facility] [address] [place] [address] Dr. Balta Gorman GS_DIPTH Normal [facility] Comment on above: Performed By: #### C VDTBH #### [facility] [address] [address] [address] Balta Gorman WBC NONE SEEN Normal [facility] Comment on above: Performed By: #### C VDTBH #### [facility] [address] [address] [address] Balta Gorman POINT OF CARE GLUCOSEon Glucose [Mass/Vol] 168 mg/dL Critically high 74-106 [facility] Comment on above: Performed By: #### P OCGLUC ####[facility] [id number] [address]Dr. Balta Gorman Glucose [Mass/Vol] 161 mg/dL Critically high 74-106 [facility] Comment on above: Performed By: #### P OCGLUC #### [facility] [address] [address] [address] Balta Gorman [facility])on SARS-CoV-2 (COVID-19) RNA DERICK+probe Ql (Unsp spec) Not detected Normal NOT DETECTED [facility] Comment on above: Result Comment: This test is not yet approved or cleared by the [place] FDA. When there are no FDA-approved or cleared tests available, and other criteria are met, FDA can make tests available under an emergency access mechanism called an Emergency Use Authorization (EUA). The EUA for this test is supported by the [place] of Health and Human Service's (HHS's) declaration that circumstances exist to justify the emergency use of in vitro diagnostics for the detection and/or diagnosis of the virus that causes COVID-19. This EUA will remain in effect (meaning this test can be used) for the duration of the COVID-19 declaration justifying emergency of IVDs, unless it is terminated or revoked by FDA (after which the test may no longer be used). When diagnostic testing is negative, the possibility of a false negative should be considered in the context of a patient's recent exposures and the presence of clinical signs and symptoms consistent with SARS-CoV-2. Performed By: #### C VDTBH ####[facility] [id number] [place], [place] [address]PkDr. Balta Gorman PROF CHEM 8 (BAS METB)on Anion gap [Moles/Vol] 13.3 mmol/L Normal [facility] Comment on above: Performed By: #### C VDTBH #### [facility] [address] [address] [address] Balta Gorman Calcium [Mass/Vol] 8.7 mg/dL Normal 8.5-10.1 [facility] Comment on above: Performed By: #### C VDTBH #### [facility] [address] [address] [address] Balta Gorman Chloride [Moles/Vol] 106 mmol/L Normal 98-107 [facility] Comment on above: Performed By: #### C VDTBH #### [facility] [address] [address] [address] Balta Gorman CO2 [Moles/Vol] 23.9 mmol/L Normal 21.0-32.0 [facility] Comment on above: Performed By: #### C VDTBH #### [facility] [address] [address] [address] Balta Gorman Creatinine [Mass/Vol] 1.24 mg/dL Normal 0.70-1.30 [facility] Comment on above: Performed By: #### C VDTBH #### [facility] [address] [address] [address] Balta Gorman EGFR-AF IVORIAN >60 Normal >=60 [facility] Comment on above: Performed By: #### C VDTBH #### [facility] [address] [address] [address] Balta Gorman EGFR-NON AF IVORIAN 58 mL/min/1.73m2 Critically low >=60 [facility] Comment on above: Performed By: #### C VDTBH #### [facility] [address] [address] [address] Balta Gorman Glucose [Mass/Vol] 158 mg/dL Critically high 74-106 [facility] Comment on above: Performed By: #### C VDTBH #### [facility] [address] [address] [address] Balta Gorman Potassium [Moles/Vol] 4.2 mmol/L Normal 3.5-5.1 [facility] Comment on above: Performed By: #### C VDTBH #### [facility] [address] [address] [address] Balta Gorman Sodium [Moles/Vol] 139 mmol/L Normal 136-145 [facility] Comment on above: Performed By: #### C VDTBH #### [facility] [address] [address] [address] Balta Gorman Urea nitrogen [Mass/Vol] 19.0 mg/dL Critically high 7.0-18.0 [facility] Comment on above: Performed By: #### C VDTBH #### [facility] [address] [address] [address] Balta Gorman Urea nitrogen/Creatinine [Mass ratio] 15.3 mg/mg Normal [facility] Comment on above: Performed By: #### C VDTBH #### [facility] [address] [address] [address] Balta Gorman ACID FAST SMEAR AND CXon Acid Fast Culture Negative [facility] Comment on above: Result Comment: No a monse fast bacilli isolated after 6 weeks. Performed By: #### A FB ####[facility] [id number] [id number]. Balta Gorman Acid Fast Smear Negative Normal [facility] Comment on above: Performed By: #### A FB ####[facility] [id number] [id number] [employer] Specimen Processing Tissue Grinding [facility] Comment on above: Performed By: #### A FB ####[facility] [address] [place], [place] [address]Tu. Balta Gorman FUNGAL CULTUREon 05-05-2022 Fungus (Mycology) Culture Final report Normal [facility] Comment on above: Performed By: #### A FB #### [facility] [address] [address] [address] Balta Gorman Fungus Stain Final report Normal [facility] Comment on above: Performed By: #### A FB #### [facility] [address] [address] [address] Balta Gorman Result 1 Comment Normal [facility] Comment on above: Result Comment: FRANCISCA/ Calcofluor preparation: no fungus observed. Performed By: #### A FB #### [facility] [address] [address] [address] Balta Gorman Result Comment: No y east or mold isolated after 4 weeks. Office Visit (Cardiology)on 05-01-2022 Follow-up visit Diagnoses/Problems Assessed Multiple vessel coronary artery disease (414.00) (I25.10) Hypertension (401.9) (I10) Hyperlipidemia (272.4) (E78.5) History of coronary artery bypass graft (V45.81) (Z95.1) Angina pectoris (413.9) (I20.9) Diabetes mellitus (250.00) (E11.9) Never a smoker Overweight with body mass index (BMI) of 29 to 29.9 in adult (278.02,V85.25) (E66.3,Z68.29) Orders Hyperlipidemia Renew: Atorvastatin Calcium 20 MG Oral Tablet; TAKE 1 TABLET AT BEDTIME Multiple vessel coronary artery disease Renew: Aspirin EC 81 MG Oral Tablet Delayed Release; TAKE 1 TABLET DAILY DIRECTED Overweight with body mass index (BMI) of 29 to 29.9 in adult Healthy Weight Tips; Status:Complete - Retrospective Authorization; Done: 01May2022 Some eating tips that can help you lose weight.; Status:Complete - Retrospective Authorization; Done: 01May2022 SocHx: Never a smoker Tobacco Use Screening; Status:Complete; Done: 01May2022 Patient Instructions By signing my name below, Hemal, Franchesca Adan LPN.,Scribe, attest that this documentation has been prepared under the direction and in the presence of Dr. Helga Flores DO. Please bring all medicines, vitamins, and herbal supplements with you when you come to the office. Prescriptions will not be filled unless you are compliant with your follow up appointments or have a follow up appointment scheduled as per instruction of your physician. Refills should be requested at the time of your visit Follow up in [6 ] months Chief Complaint CATH RESULTS. History of Present Illness Mr. Pandya is a 67-year-old male who is seen back today for follow-up on his history of coronary disease. He had remote bypass surgery that was done back in 1992 at [facility] in [place]. 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 This was redilated and stented. He had a recent episode at cardiac rehab in [place] and because of this was seen in January of this year in the office. He had a stress test. Stress test suggested some lateral ischemia and he then subsequently underwent a heart cath. Heart catheterization demonstrated multivessel disease. There was a circumflex small branch with a 70% narrowing but this was considered too small for intervention. There was no further intervention done after his diagnostic heart cath. Today he indicates no recent episodes of chest pain. Seems to be stable. Blood pressure was low earlier today but he is not symptomatic. Physical exam: Neck: No carotid bruits are heard Lungs: Clear Heart: Regular rate and rhythm without murmurs or extra sounds Extremities: No edema Recommendation is continued medical management of his multivessel coronary disease. No changes were recommended. He is to keep track of his blood pressure at home or at least if he has symptoms of lightheadedness. No changes were made. He is to return in 6 months. Current Meds Medication NameInstruction Aspirin EC 81 MG Oral Tablet Delayed ReleaseTAKE 1 TABLET DAILY DIRECTED. Atorvastatin Calcium 20 MG Oral TabletTAKE 1 TABLET AT BEDTIME. Carvedilol 6.25 MG Oral TabletTAKE 1 TABLET TWICE DAILY WITH MEALS. Clopidogrel Bisulfate 75 MG Oral TabletTAKE 1 TABLET DAILY. Fenofibrate 145 MG Oral TabletTAKE 1 TABLET DAILY. Invokana 100 MG Oral TabletTake 1 tablet daily Isosorbide Mononitrate ER 60 MG Oral Tablet Extended Release 24 HourTAKE 1 TABLET DAILY DIRECTED. metFORMIN HCl - 1000 MG Oral TabletTAKE 1 TABLET EVERY 12 HOURS DAILY. Nitroglycerin 0.4 MG Sublingual Tablet SublingualDISSOLVE 1 TABLET UNDER THE TONGUE NEEDED FOR CHEST PAIN UP TO 3 DOSES IN 15 MINUTES Synthroid 200 MCG Oral TabletTAKE 1 TABLET DAILY DIRECTED. Trulicity 1.5 MG/0.5ML Subcutaneous Solution Pen-injectorUSE DIRECTED Allergies Medication No Known Drug Allergies Recorded By: Vikki Rivas; 09/19/2021 9:11:40 AM Social History Problems Caffeine use (V49.89) (Z78.9) occassional Never a smoker No alcohol use No illicit drug use Review of Systems Constitutional: not feeling tired. Cardiovascular: no intermittent leg claudication and as noted in HPI. Respiratory: no cough and no shortness of breath. Gastrointestinal: no change in bowel habits and no blood in stools. Integumentary: no skin rashes. Neurological: no seizures and no frequent falls. All other systems have been reviewed and are negative for complaint. Vitals Vital Signs Recorded: 01May2022 09:28AM Heart Rate80, L Radial Iwkvxbqv21, LUE, Sitting Hgjvcxswp34, LUE, Sitting Height6 ft 1 in Offfkd898 lb BMI Zowykjopvz89.42 kg/m2 BSA Calculated2.25 Tobacco Useb) No Falls Screening (Age 18+)a) No falls within the last year Signatures Electronically signed by : Helga Flores DO; May 01 2022 11:18AM EST (Author) Normal [employer] Tobacco Screening.on 022 Fall risk assessment a) No falls within the last year [facility] 250 DO Work Phone: Tobacco use status [facility] b) No [facility] 250 DO Work Phone: XR FOOT LT MIN 3 VIEWSon XR FOOT LT MIN 3 VIEWS EXAM: XR FOOT LT MIN 3 VIEWS COMPARISON: Foot radiographs the 2019 HISTORY: Pain in left foot FINDINGS: Indications arthrodesis in the proximal second interphalangeal joints. Uncomplicated appearance of the associated hardware. Erosive or surgical changes in the proximal third, fourth and fifth phalanges, unchanged in appearance from multiple prior exams. There is slight lateral subluxation in the first interphalangeal joints. There is an Achilles tendon enthesophyte and calcaneal spurring. Soft tissue swelling overlies the medial first interphalangeal joint. IMPRESSION: 1. Lateral subluxation of the first interphalangeal joint with overlying soft tissue swelling. 2. Erosive or surgical changes in the third through fifth digits similar in appearance to prior imaging. 3. Evidence of chronic Achilles tendinosis and plantar fasciitis. 4. Uncomplicated appearing second digit arthrodesis. Electronically authenticated by: JOSE MARTIN WHITAKER Date: 2022-04-14 10:08 Normal [facility] TISSUE CULTUREon 04-07-2022 Anaerobic Culture, Extended Incubation Final report Normal [facility] Comment on above: Performed By: #### A FB #### [facility] [address] [address] [address] Balta Gorman Result 1 Comment Normal [facility] Comment on above: Result Comment: No g rowth in 56 - 72 hours. Performed By: #### A FB #### [facility] [address] [place] [address] Dr. Balta Gorman Result Comment: No g rowth after 14 days. Tissue Culture Final report Normal [facility] Comment on above: Performed By: #### A FB #### [facility] [address] [place] [address] Dr. Balta Gorman WOUND CULTUREon 03-26-2022 Antimicrobial Susceptibility Comment Normal [facility] Comment on above: Result Comment: S = Susceptible; I = Intermediate; R = Resistant P = Positive; N = Negative MICS are expressed in micrograms per mL Antibiotic RSLT#1 RSLT#2 RSLT#3 RSLT#4 Ciprofloxacin R Clindamycin S Erythromycin S Gentamicin S Levofloxacin R Linezolid S Oxacillin R Penicillin R Rifampin S Tetracycline S Trimethoprim/Sulfa R Vancomycin S Performed By: #### A FB #### [facility] [address] [place] [address] Dr. Balta Gorman Bacteria identified Aer cx Nom (Unsp spec) Final report Abnormal [facility] Comment on above: Performed By: #### A FB #### [facility] [address] [place] [address] Dr. Balta Gorman Result 1 Comment Abnormal [facility] Comment on above: Result Comment: Meth icillin - resistant Staphylococcus aureus Based on resistance to oxacillin this isolate would be resistant to all currently available beta-lactam antimicrobial agents, with the exception of the newer cephalosporins with anti-MRSA activity, such as Ceftaroline Heavy growth Performed By: #### A FB #### [facility] [address] [address] [address] Balta Gorman CBC AUTO DIFFon 03-24-2022 BASO # 0.0 103/ul Normal 0.0-0.1 [facility] Comment on above: Performed By: #### C BC ####[facility] [address] [address]Dr. Balta Gorman Basophils/100 WBC (Bld) 0.5 % Normal 0.2-2.0 [facility] Comment on above: Performed By: #### C BC ####[facility] [address] [place], [place] [address]Dr. Balta Gorman EO # 0.1 103/ul Normal 0.0-0.7 [facility] Comment on above: Performed By: #### C BC ####[facility] [address] [place], [place] [address]Dr. Balta Gorman Eosinophils/100 WBC (Bld) 1.1 % Normal 0.9-7.0 [facility] Comment on above: Performed By: #### C BC ####[facility] [address] [place], [place] [address]Dr. Balta Gorman Erythrocyte distribution width (RBC) [Ratio] 16.9 % Critically high 11.0-15.0 [facility] Comment on above: Performed By: #### C BC ####[facility] [address] [place], [place] [address]Dr. Balta Gorman Hematocrit (Bld) [Volume fraction] 34.5 % Critically low 42.0-54.0 [facility] Comment on above: Performed By: #### C BC ####[facility] Wact[address] [place], [place] [address]Dr. Balta Gorman Hemoglobin (Bld) [Mass/Vol] 10.2 g/dL Critically low 14.0-18.0 [facility] Comment on above: Performed By: #### C BC ####[facility] [address]ie[address] [place], [place] [address]Dr. Balta Gorman IG # 0.03 10e3/ul Normal 0.00-0.03 [facility] Comment on above: Performed By: #### C BC ####[facility] [address] [address]DrPaola Gorman IG % 0.4 % Normal 0.0-0.5 [facility] Comment on above: Performed By: #### C BC ####[facility] [address] [address]DrPaola Gorman LYMPH # 1.6 103/ul Normal 1.2-3.8 [facility] Comment on above: Performed By: #### C BC ####[facility] [address] [address]DrPaola Gorman Lymphocytes/100 WBC (Bld) 18.4 % Critically low 20.5-60.0 [facility] Comment on above: Performed By: #### C BC ####[facility] [address] [address]DrPaola Gorman MANUAL DIFF REQ NO Normal [facility] Comment on above: Performed By: #### C BC ####[facility] [address] [address]DrPaola Gorman MCH (RBC) [Entitic mass] 22.7 pg Critically low 25.9-34.0 [facility] Comment on above: Performed By: #### C BC ####[facility] [address] [address]DrPaola Gorman MCHC (RBC) [Mass/Vol] 29.6 g/dL Critically low 29.9-35.2 [facility] Comment on above: Performed By: #### C BC ####[facility] [address] [address]DrPaola Gorman MCV (RBC) [Entitic vol] 76.7 fL Critically low 80.0-94.0 [facility] Comment on above: Performed By: #### C BC ####[facility] [address] [place], [place] [address]DrPaola Gorman MONO # 0.9 103/ul Critically high 0.3-0.8 [facility] Comment on above: Performed By: #### C BC ####[facility] [address] [id number]. Balta Gorman Monocytes/100 WBC (Bld) 11.1 % Normal 1.7-12.0 [facility] Comment on above: Performed By: #### C BC ####[facility] [address] [id number]. Balta Gorman NEUT # 5.8 103/ul Normal 1.4-6.5 [facility] Comment on above: Performed By: #### C BC ####[facility] [address] [id number]. Balta Gorman Neutrophils/100 WBC (Bld) 68.5 % Normal 43.0-75.0 [facility] Comment on above: Performed By: #### C BC ####[facility] [address] [address]Dr. Balta Gorman Platelet mean volume (Bld) [Entitic vol] 10.2 fL Normal 9.5-13.5 [facility] Comment on above: Performed By: #### C BC ####[facility] [address] [id number]. Balta Gorman PLT 285 103/ul Normal 150-450 [facility] Comment on above: Performed By: #### C BC ####[facility] [address] [id number]. Balta Gorman RBC 4.50 106/ul Critically low 4.70-6.10 [facility] Comment on above: Performed By: #### C BC ####[facility] [address] [address]Dr. Balta Gorman WBC 8.5 103/ul Normal 4.0-11.0 [facility] Comment on above: Performed By: #### C BC ####[facility] [address] [id number] Balta Gorman POINT OF CARE GLUCOSEon 05-2 0 Glucose [Mass/Vol] 209 mg/dL Critically high 74-106 T [facility] Comment on above: Performed By: #### P OCGLUC #### [facility] [address] [address] [address] Balta Gorman PROF CHEM 8 (BAS METB)on Anion gap [Moles/Vol] 13.7 mmol/L Normal [facility] Comment on above: Performed By: #### B MP ####[facility] [address] [address]DrPaola Gorman Calcium [Mass/Vol] 8.1 mg/dL Critically low 8.5-10.1 e [facility] Comment on above: Performed By: #### B MP ####[facility] [address] [address]DrPaola Gorman Chloride [Moles/Vol] 105 mmol/L Normal 98-107 [facility] Comment on above: Performed By: #### B MP ####[facility] [address] [id number] Gorman CO2 [Moles/Vol] 23.0 mmol/L Normal 21.0-32.0 [facility] Comment on above: Performed By: #### B MP ####[facility] [address] [id number] Gorman Creatinine [Mass/Vol] 1.15 mg/dL Normal 0.70-1.30 [facility] Comment on above: Performed By: #### B MP ####[facility] [address] [id number] Gorman EGFR-AF IVORIAN >60 Normal >=60 [facility] Comment on above: Performed By: #### B MP ####[facility] [address] [address]DrPaola Gorman EGFR-NON AF IVORIAN >60 Normal >=60 [facility] Comment on above: Performed By: #### B MP ####[facility] [address] [address]DrPaola Gorman Glucose [Mass/Vol] 214 mg/dL Critically high 74-106 T [facility] Comment on above: Performed By: #### B MP ####[facility] [address] [address]DrPaola Gorman Potassium [Moles/Vol] 3.7 mmol/L Normal 3.5-5.1 [facility] Comment on above: Performed By: #### B MP ####[facility] [address] [address]DrPaola Gorman Sodium [Moles/Vol] 138 mmol/L Normal 136-145 [facility] Comment on above: Performed By: #### B MP ####[facility] [address] [address]DrPaola Gorman Urea nitrogen [Mass/Vol] 21.0 mg/dL Critically high 7.0-18.0 [facility] Comment on above: Performed By: #### B MP ####[facility] [address] [place], [place] [address]DrPaola Gorman Urea nitrogen/Creatinine [Mass ratio] 18.3 mg/mg Normal [facility] Comment on above: Performed By: #### B MP ####[facility] [address] [place], [place] [address]DrPaola Gorman CBC AUTO DIFFon 03-23-2022 BASO # 0.1 103/ul Normal 0.0-0.1 [facility] Comment on above: Performed By: #### C VDTBH #### [facility] [address] [place] [address] Dr. Balta Gorman Basophils/100 WBC (Bld) 1.0 % Normal 0.2-2.0 [facility] Comment on above: Performed By: #### C VDTBH #### [facility] [address] [place] [address] Dr. Balta Gorman EO # 0.3 103/ul Normal 0.0-0.7 [facility] Comment on above: Performed By: #### C VDTBH #### [facility] [address] [place] [address] Dr. Balta Gorman Eosinophils/100 WBC (Bld) 4.5 % Normal 0.9-7.0 [facility] Comment on above: Performed By: #### C VDTBH #### [facility] [address] [place] [address] Dr. Balta Gorman Erythrocyte distribution width (RBC) [Ratio] 17.0 % Critically high 11.0-15.0 [facility] Comment on above: Performed By: #### C VDTBH #### [facility] [address] [place] [address] Dr. Balta Gorman Hematocrit (Bld) [Volume fraction] 35.7 % Critically low 42.0-54.0 [facility] Comment on above: Performed By: #### C VDTBH #### [facility] [address] [place] [address] Dr. Balta Gorman Hemoglobin (Bld) [Mass/Vol] 10.6 g/dL Critically low 14.0-18.0 [facility] Comment on above: Performed By: #### C VDTBH #### [facility] [address] [place] [address] Dr. Balta Gorman IG # 0.03 10e3/ul Normal 0.00-0.03 [facility] Comment on above: Performed By: #### C VDTBH #### [facility] [address] [place] [address] Dr. Balta Gorman IG % 0.4 % Normal 0.0-0.5 [facility] Comment on above: Performed By: #### C VDTBH #### [facility] [address] [place] [address] Dr. Balta Gorman LYMPH # 1.8 103/ul Normal 1.2-3.8 [facility] Comment on above: Performed By: #### C VDTBH #### [facility] [address] [place] [address] Dr. Balta Gorman Lymphocytes/100 WBC (Bld) 25.6 % Normal 20.5-60.0 [facility] Comment on above: Performed By: #### C VDTBH #### [facility] [address] [place] [address] Dr. Balta Gorman MANUAL DIFF REQ NO Normal [facility] Comment on above: Performed By: #### C VDTBH #### [facility] [address] [place] [address] Dr. Balta Gorman MCH (RBC) [Entitic mass] 22.8 pg Critically low 25.9-34.0 [facility] Comment on above: Performed By: #### C VDTBH #### [facility] [address] [place] [address] Dr. Balta Gorman MCHC (RBC) [Mass/Vol] 29.7 g/dL Critically low 29.9-35.2 [facility] Comment on above: Performed By: #### C VDTBH #### [facility] [address] [place] [address] Dr. Balta Gorman MCV (RBC) [Entitic vol] 76.9 fL Critically low 80.0-94.0 [facility] Comment on above: Performed By: #### C VDTBH #### [facility] [address] [place] [address] Dr. Balta Gorman MONO # 1.0 103/ul Critically high 0.3-0.8 [facility] Comment on above: Performed By: #### C VDTBH #### [facility] [address] [place] [address] Dr. Balta Gorman Monocytes/100 WBC (Bld) 13.8 % Critically high 1.7-12.0 [facility] Comment on above: Performed By: #### C VDTBH #### [facility] [address] [place] [address] Dr. Balta Gorman NEUT # 3.9 103/ul Normal 1.4-6.5 [facility] Comment on above: Performed By: #### C VDTBH #### [facility] [address] [place] [address] Dr. Balta Gorman Neutrophils/100 WBC (Bld) 54.7 % Normal 43.0-75.0 [facility] Comment on above: Performed By: #### C VDTBH #### [facility] [address] [address] [address] Balta Gorman Platelet mean volume (Bld) [Entitic vol] 10.5 fL Normal 9.5-13.5 [facility] Comment on above: Performed By: #### C VDTBH #### [facility] [address] [address] [address] Balta Gorman PLT 271 103/ul Normal 150-450 [facility] Comment on above: Performed By: #### C VDTBH #### [facility] [address] [address] [address] Balta Gorman RBC 4.64 106/ul Critically low 4.70-6.10 [facility] Comment on above: Performed By: #### C VDTBH #### [facility] [address] [address] [address] Balta Gorman WBC 7.2 103/ul Normal 4.0-11.0 [facility] Comment on above: Performed By: #### C VDTBH #### [facility] [address] [address] [address] Balta Gorman GLYCOHEMOGLOBIN A1Con 2021 ADA RECOMMENDATION SEE BELOW Normal [facility] Comment on above: Result Comment: ADA RECOMMENDED LIMIT 4.0 - 6.0 ADA THERAPEUTIC TARGET < 7.0 ACTION SUGGESTED > 7.0 Performed By: #### A 1C #### [facility] [address] [address] [address] Balta Gorman Glucose [Mass/Vol] 177 mg/dL Normal [facility] Comment on above: Performed By: #### A 1C #### [facility] [address] [address] [address] Balta Gorman HbA1c (Bld) [Mass fraction] 7.8 % Critically high 4.5-6.2 [facility] Comment on above: Performed By: #### A 1C #### [facility] [address] [address] [address] Balta Gorman GRAM STAINon 03-23-2022 COMMENTS NO ORGANISMS OBSERVED Normal [facility] Comment on above: Performed By: #### A FB #### [facility] [address] [address] [address] Balta Gorman DIPHTHEROIDS Normal [facility] Comment on above: Performed By: #### A FB #### [facility] [address] [address] [address] Balta Gorman EPITHELIALS Normal [facility] Comment on above: Performed By: #### A FB #### [facility] [address] [address] [address] Balta Gorman FUNGAL ELEMENTS Normal [facility] Comment on above: Performed By: #### A FB #### [facility] [address] [place] [address] Dr. Balta Gorman GRAM NEG BACILLI [facility] Comment on above: Performed By: #### A FB #### [facility] [address] [place] [address] Dr. Balta CAVAZOS NEG DIPPLOCOCCI [facility] Comment on above: Performed By: #### A FB #### [facility] [address] [address] [address] Balta Gorman GRAM POS BACILLI Normal [facility] Comment on above: Performed By: #### A FB #### [facility] [address] [place] [address] Dr. Balta Gorman GRAM POSITIVE COCCI Normal [facility] Comment on above: Performed By: #### A FB #### [facility] [address] [address] [address] Balta Gorman GRAM STAIN SOURCE r. 2nd toe bone- pos t irrigation Normal [facility] Comment on above: Performed By: #### A FB #### [facility] [address] [place] [address] Dr. Balta Gorman GS_DIPTH [facility] Comment on above: Performed By: #### A FB #### [facility] [address] [place] [address] Dr. Balta Gorman WBC RARE Normal [facility] Comment on above: Performed By: #### A FB #### [facility] [address] [address] [address] Balta Gorman POINT OF CARE GLUCOSEon 03-05 Glucose [Mass/Vol] 209 mg/dL Critically high [address] [place] [address] Comment on above: Performed By: #### A FB #### [facility] [address] [address] [address] Balta Gorman Glucose [Mass/Vol] 203 mg/dL Critically high -106 [facility] Comment on above: Performed By: #### P OCGLUC #### [facility] [address] [address] [address] Balta Gorman Glucose [Mass/Vol] 119 mg/dL Critically high [address] [place] [address] Comment on above: Performed By: #### A FB #### [facility] [address] [place] [address] Dr. Balta Gorman Glucose [Mass/Vol] 115 mg/dL Critically high [address] [place] [address] Comment on above: Performed By: #### A FB #### [facility] [address] [address] [address] Balta Gorman PROF CHEM 8 (BAS METB)on Anion gap [Moles/Vol] 12.2 mmol/L Normal [facility] Comment on above: Performed By: #### A FB #### [facility] [address] [address] [address] Balta Gorman Calcium [Mass/Vol] 8.1 mg/dL Critically low 8.5-10.1 [facility] Comment on above: Performed By: #### A FB #### [facility] [address] [address] [address] Balta Gorman Chloride [Moles/Vol] 104 mmol/L Normal 98-107 [facility] Comment on above: Performed By: #### A FB #### [facility] [address] [address] [address] Balta Gorman CO2 [Moles/Vol] 24.5 mmol/L Normal 21.0-32.0 [facility] Comment on above: Performed By: #### A FB #### [facility] [address] [address] [address] Balta Gorman Creatinine [Mass/Vol] 1.06 mg/dL Normal 0.70-1.30 [facility] Comment on above: Performed By: #### A FB #### [facility] [address] [place] [address] Dr. Balta Gorman EGFR-AF IVORIAN >60 Normal >=60 [facility] Comment on above: Performed By: #### A FB #### [facility] [address] [address] [address] Balta Gorman EGFR-NON AF IVORIAN >60 Normal >=60 [facility] Comment on above: Performed By: #### A FB #### [facility] [address] [place] [address] Dr. Balta Gorman Glucose [Mass/Vol] 110 mg/dL Critically high 74-106 T [facility] Comment on above: Performed By: #### A FB #### [facility] [address] [place] [address] Dr. Balta Gorman Potassium [Moles/Vol] 3.7 mmol/L Normal 3.5-5.1 [facility] Comment on above: Performed By: #### A FB #### [facility] [address] [place] [address] Dr. Balta Gorman Sodium [Moles/Vol] 137 mmol/L Normal 136-145 [facility] Comment on above: Performed By: #### A FB #### [facility] [address] [place] [address] Dr. Balta Gorman Urea nitrogen [Mass/Vol] 19.0 mg/dL Critically high 7.0-18.0 [facility] Comment on above: Performed By: #### A FB #### [facility] [address] [place] [address] Dr. Balta Gorman Urea nitrogen/Creatinine [Mass ratio] 17.9 mg/mg Normal [facility] Comment on above: Performed By: #### A FB #### [facility] [address] [place] [address] Dr. Balta Gorman PROTIMEon 03-23-2022 INR Coag (PPP) [Relative time] 1.06 {INR} Normal [facility] Comment on above: Performed By: #### P TT, PT ####[facility] [address] [place], [place] [address]DrPaola Gorman INR GUIDELINES SEE BELOW Normal [facility] Comment on above: Result Comment: PORSCHE RED INR: 2.0 - 3.0 CONDITIONS NOT LISTED BELOW 2.5 - 3.5 FOR PROSTHETIC HEART VALVE REPLACEMENT 2.5 - 3.5 RECURRENT THROMBOSIS Performed By: #### P TT, PT ####[facility] Jvivvdt[address] [place], [place] [address]DrPaola Gorman PT Coag (PPP) [Time] 11.4 s Normal 9.0-11.6 [facility] Comment on above: Performed By: #### P TT, PT ####[facility] Fuedfoaprh[address] [place], [place] [address]DrPaola Gorman PTTon 03-23-2022 aPTT Coag (Bld) [Time] 33.8 s Normal 22.3-36.2 [facility] Comment on above: Performed By: #### P TT, PT ####[facility] Wrbueaugmu[address] [place], [place] [address]DrPaola Gorman CBC AUTO DIFFon 03-22-2022 BASO # 0.1 103/ul Normal 0.0-0.1 [facility] Comment on above: Performed By: #### C BC ####[facility] K[address]fs[address] [place], [place] [address]DrPaola Gorman Basophils/100 WBC (Bld) 0.9 % Normal 0.2-2.0 [facility] Comment on above: Performed By: #### C BC ####[facility] O[address]vjkyct[address] [place], [place] [address]DrPaola Gorman EO # 0.3 103/ul Normal 0.0-0.7 [facility] Comment on above: Performed By: #### C BC ####[facility] [address] [place] [address]Dr. Balta Gorman Eosinophils/100 WBC (Bld) 3.2 % Normal 0.9-7.0 [facility] Comment on above: Performed By: #### C BC ####[facility] Qrmrijuywo[address] [place], [place] [address]Dr. Balta Gorman Erythrocyte distribution width (RBC) [Ratio] 17.5 % Critically high 11.0-15.0 [facility] Comment on above: Performed By: #### C BC ####[facility] Tldggftsrl[address] [place], [place] [address]Dr. Balta Gorman Hematocrit (Bld) [Volume fraction] 39.5 % Critically low 42.0-54.0 [facility] Comment on above: Performed By: #### C BC ####[facility] Mixjgkxcin[address] [place], [place] [address]Dr. Balta Gorman Hemoglobin (Bld) [Mass/Vol] 11.6 g/dL Critically low 14.0-18.0 [facility] Comment on above: Performed By: #### C BC ####[facility] Qsgqrajpon8[address] [place], [place] [address]Dr. Balta Gorman IG # 0.03 10e3/ul Normal 0.00-0.03 [facility] Comment on above: Performed By: #### C BC ####[facility] Spepmkulfr[address] [place], [place] [address]Dr. Balta Gorman IG % 0.3 % Normal 0.0-0.5 [facility] Comment on above: Performed By: #### C BC ####[facility] Nktraneyjy[address] [place], [place] [address]Dr. Balta Gorman LYMPH # 1.6 103/ul Normal 1.2-3.8 [facility] Comment on above: Performed By: #### C BC ####[facility] Trqxaqceyc[address] [place], [place] [address]Dr. Balta Gorman Lymphocytes/100 WBC (Bld) 17.7 % Critically low 20.5-60.0 [facility] Comment on above: Performed By: #### C BC ####[facility] [address] [place] [id number]. Balta Gorman MANUAL DIFF REQ NO Normal [facility] Comment on above: Performed By: #### C BC ####[facility] S[address] [place] [address]Dr. Balta Sherif MCH (RBC) [Entitic mass] 22.5 pg Critically low 25.9-34.0 [facility] Comment on above: Performed By: #### C BC ####[facility] Cel[address]qbeopr[address] [place] [address]Dr. Balta Sherif MCHC (RBC) [Mass/Vol] 29.4 g/dL Critically low 29.9-35.2 [facility] Comment on above: Performed By: #### C BC ####[facility] [address] [place] [address]Dr. Balta Gorman MCV (RBC) [Entitic vol] 76.6 fL Critically low 80.0-94.0 [facility] Comment on above: Performed By: #### C BC ####[facility] Owzltrzigw[address] [place], [place] [address]Dr. Balta Gorman MONO # 1.0 103/ul Critically high 0.3-0.8 [facility] Comment on above: Performed By: #### C BC ####[facility] Havajiwbyj[address] [place], [place] [address]Dr. Balta Gorman Monocytes/100 WBC (Bld) 11.0 % Normal 1.7-12.0 [facility] Comment on above: Performed By: #### C BC ####[facility] Aszmwhxxub[address] [place] [address]Dr. Balta Gorman NEUT # 5.9 103/ul Normal 1.4-6.5 [facility] Comment on above: Performed By: #### C BC ####[facility] Cll[address] [place], [place] [address]Dr. Balta Gorman Neutrophils/100 WBC (Bld) 66.9 % Normal 43.0-75.0 [facility] Comment on above: Performed By: #### C BC ####[facility] [address] [place], [place] [address]Yw. Balta Gorman Platelet mean volume (Bld) [Entitic vol] 10.4 fL Normal 9.5-13.5 [facility] Comment on above: Performed By: #### C BC ####[facility] We[address] [place], [place] [address]Oa. Aurabenja Gorman PLT 319 103/ul Normal 150-450 [facility] Comment on above: Performed By: #### C BC ####[facility] [address]ls[address] [place], [place] [address]Jw. Balta Gorman RBC 5.16 106/ul Normal 4.70-6.10 [facility] Comment on above: Result Comment: SLIG HT HYPOCHROMIA Performed By: #### C BC ####[facility] [address] [place] [id number]. Balta Gorman WBC 8.8 103/ul Normal 4.0-11.0 [facility] Comment on above: Performed By: #### C BC ####[facility] [address] [place], [place] [address]Nh. Balta Gorman CULTURE BLOODon 03-22-2022 Microscopic examination of blood, culture Culture Observations: No growth at 5 days. Isolate 1 BC_BA_NA Normal [facility] Comment on above: Performed By: #### C VDTBH #### [facility] Laboratory [address] [place], [place] [address] Dr. Balta Gorman Microscopic examination of blood, culture Culture Observations: No growth at 5 days. Isolate 1 BC_BA_NA Normal [facility] Comment on above: Performed By: #### C VDTBH #### [facility] Laboratory [address] [place] [id number] Balta Gorman Covid-19 PCR ([facility])on 03-05 SARS-CoV-2 (COVID-19) RNA DERICK+probe Ql (Unsp spec) Not detected Normal NOT DETECTED [facility] Comment on above: Result Comment: When diagnostic testing is negative, the possibility of a false negative should be considered in the context of a patient's recent exposures and the presence of clinical signs and symptoms consistent with SARS-CoV-2. This test is not yet approved or cleared by the [place] Food and Drug Administration (FDA). This test was developed by [employer], [place], [place]. The performance characteristics of this test were validated by [facility]. The results are not intended to be used as the sole means for clinical diagnosis or patient management decisions. The [facility] is authorized under Clinical Laboratory Improvement Amendments (CLIA) to perform high- complexity testing. This test is not yet approved or cleared by the [place] FDA. When there are no FDA-approved or cleared tests available, and other criteria are met, FDA can make tests available under an emergency access mechanism called an Emergency Use Authorization (EUA). The EUA for this test is supported by the [place] of Health and Human Service's declaration that circumstances exist to justify the emergency use of in vitro diagnostics for the detection and/or diagnosis of the virus that causes COVID-19. This EUA will remain in effect for the duration of the COVID-19 declaration justifying emergency of IVDs, unless it is terminated or revoked by the FDA (after which the test may no longer be used). Performed By: #### C VDTBH #### [facility] Laboratory [address] [place] [address] [address] Balta Gorman POINT OF CARE GLUCOSEon 03-05 Glucose [Mass/Vol] 121 mg/dL Critically high 74-106 [facility] Comment on above: Performed By: #### P OCGLUC #### [facility] Laboratory [address] [place] [address] [address] Balta Gorman Glucose [Mass/Vol] 109 mg/dL Critically high 74-106 [facility] Comment on above: Performed By: #### P OCGLUC #### [facility] Laboratory [address] [place] [address] [address] Balta Gorman PROF 14(COMP METB)on 022 Albumin [Mass/Vol] 3.5 g/dL Normal 3.4-5.0 [facility] Comment on above: Performed By: #### C MP ####[facility] [address]gsqz[address] [place] [address]Dr. Balta Gorman Albumin/Globulin [Mass ratio] 0.8 {ratio} Normal [facility] Comment on above: Performed By: #### C MP ####[facility] [address]omflqowl[address] [place] [address]Dr. Balta Gorman ALP [Catalytic activity/Vol] 78 U/L Normal 46-116 [facility] Comment on above: Performed By: #### C MP ####[facility] Bxhke[address] [place], [place] [address]Dr. Balta hSerif ALT [Catalytic activity/Vol] 24 U/L Normal 16-63 [facility] Comment on above: Performed By: #### C MP ####[facility] Kdpeadppfc[address] [place], [place] [address]Dr. Balta Sherif Anion gap [Moles/Vol] 11.9 mmol/L Normal [facility] Comment on above: Performed By: #### C MP ####[facility] Qvnbykeubz[address] [place], [place] [address]Dr. Balta Sherif AST [Catalytic activity/Vol] 16 U/L Normal 15-37 [facility] Comment on above: Performed By: #### C MP ####[facility] U[address]rvhx[address] [place], [place] [address]Dr. Balta Sherif Bilirubin [Mass/Vol] 0.6 mg/dL Normal 0.2-1.0 [facility] Comment on above: Performed By: #### C MP ####[facility] H[address]uczoeen[address] [place], [place] [address]Dr. Balta Sherif Calcium [Mass/Vol] 8.7 mg/dL Normal 8.5-10.1 [facility] Comment on above: Performed By: #### C MP ####[facility] Lf[address]awg[address] [place], [place] [address]Dr. Balta Gorman Chloride [Moles/Vol] 104 mmol/L Normal 98-107 [facility] Comment on above: Performed By: #### C MP ####[facility] F[address]klxvp[address] [place], [place] [address]Dr. Balta Gorman CO2 [Moles/Vol] 28.1 mmol/L Normal 21.0-32.0 [facility] Comment on above: Performed By: #### C MP ####[facility] [address] [place] [id number]. Balta Gorman Creatinine [Mass/Vol] 1.24 mg/dL Normal 0.70-1.30 [facility] Comment on above: Performed By: #### C MP ####[facility] Hfgcrraura[address] [place] [id number]. Balta Sherif EGFR-AF IVORIAN >60 Normal >=60 [facility] Comment on above: Performed By: #### C MP ####[facility] Mvguxdnwhk9925 [place] [address]Dr. Balta Sherif EGFR-NON AF IVORIAN 58 mL/min/1.73m2 Critically low >=60 [facility] Comment on above: Performed By: #### C MP ####[facility] Vnefdnnvsf9725 [place] [id number]. Balta Sherif Globulin (S) [Mass/Vol] 4.4 g/dL Normal [facility] Comment on above: Performed By: #### C MP ####[facility] Tsuxfwmlpj[address] [place] [address]Dr. Balta Gorman Glucose [Mass/Vol] 205 mg/dL Critically high 74-106 [facility] Comment on above: Performed By: #### C MP ####[facility] Brtowlspse4994 [place] [address]Dr. Balta Sherif Potassium [Moles/Vol] 4.0 mmol/L Normal 3.5-5.1 [facility] Comment on above: Performed By: #### C MP ####[facility] S[address]oafrhs[address]89 [place] [address]Dr. Balta Sherif Protein [Mass/Vol] 7.9 g/dL Normal 6.4-8.2 [facility] Comment on above: Performed By: #### C MP ####[facility] Cozrqfbecv[address] [place] [address]Dr. Balta Sherif Sodium [Moles/Vol] 140 mmol/L Normal 136-145 [facility] Comment on above: Performed By: #### C MP ####[facility] Hbjamaflfu[address] [place], [place] [address]Dr. Balta Gorman Urea nitrogen [Mass/Vol] 22.0 mg/dL Critically high 7.0-18.0 [facility] Comment on above: Performed By: #### C MP ####[facility] X[address]jlmavoqo[address] [place], [place] [address]Dr. Balta Gorman Urea nitrogen/Creatinine [Mass ratio] 17.7 mg/mg Normal [facility] Comment on above: Performed By: #### C MP ####[facility] Cgzqdnumhs[address] [place], [place] [address]Dr. Balta Gorman UA (CLEAN/CATCH) SLIP INJECTOR AND APPLICATOR/MICRO I F IND.on 03-22-2022 Bilirubin Ql (U) Negative Normal NEGATIVE [facility] Comment on above: Performed By: #### U ACSIND ####[facility] Vwmmfcctko[address] [place], [place] [address]Dr. Balta Gorman Clarity (U) CLEAR Normal CLEAR [facility] Comment on above: Performed By: #### U ACSIND ####[facility] Iuxpavldhz[address] [place], [place] [address]Dr. Balta Gorman Color (U) LT. YELLOW Normal YELLOW [facility] Comment on above: Performed By: #### U ACSIND ####[facility] Pwkjknagzi[address] [place], [place] [address]Dr. Balta Gorman Glucose Ql (U) >1000 Abnormal NEGATIVE [facility] Comment on above: Performed By: #### U ACSIND ####[facility] Fqvbelsyxc[address] [place], [place] [address]Dr. Balta Gorman Hemoglobin Ql (U) Negative Normal NEGATIVE [facility] Comment on above: Performed By: #### U ACSIND ####[facility] Bwhfjabnco[address] [place], [place] [address]Dr. Balta Gorman Ketones Ql (U) Negative Normal NEGATIVE [facility] Comment on above: Performed By: #### U ACSIND ####[facility] Vwidjgrlkk[address] [place], [place] [address]Dr. Balta Gorman LEUKOCYTES Negative Normal NEGATIVE [facility] Comment on above: Performed By: #### U ACSIND ####[facility] [address]rgzrg[address] [place] [address]Dr. Balta Gorman Nitrite Ql (U) Negative Normal NEGATIVE [facility] Comment on above: Performed By: #### U ACSIND ####[facility] Xlfvezvesv[address] [place] [address]Dr. Blata Gorman pH (U) 6.0 [pH] Normal 5-9 [facility] Comment on above: Performed By: #### U ACSIND ####[facility] Bsdneuiefp[address] [place] [address]Dr. Balta Gorman SPEC GRAVITY 1.010 Normal 1.005-<=1.02 5 [facility] Comment on above: Performed By: #### U ACSIND ####[facility] Cxcxqftdpp37[address] [place] [address]Dr. Balta Gorman UA PROTEIN Negative Normal NEGATIVE/ TRACE [facility] Comment on above: Performed By: #### U ACSIND ####[facility] Dwokhwgrcf[address] [place], [place] [address]Dr. Balta Gorman UR MICRO IND NOT INDICATED Normal [facility] Comment on above: Performed By: #### U ACSIND ####[facility] Nbadxwmmln99[address] [place] [address]Dr. Balta Gorman Urobilinogen Qn (U) 0.2 {Jose Luis'U}/dL Normal 0.2 - 1. 0 [facility] Comment on above: Performed By: #### U ACSIND ####[facility] Yfplimiyot[address] [place], [place] [address]Dr. Balta Gorman XR FOOT RT MIN 3 VIEWSon XR FOOT RT MIN 3 VIEWS EXAM: Right foot HISTORY: Second toe wound with infection for 2 weeks and no improvement. COMPARISON STUDY: 05/26/2021. TECHNIQUE: 3 views of the right foot were obtained. FINDINGS: There is no evidence of fracture or dislocation. There are no suspicious or destructive bone lesions, and there is no obvious periosteal reaction. There has been significant worsening of degenerative changes at the first MTP joint. 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 There is diffuse soft tissue swelling in the second toe. IMPRESSION: Diffuse swelling of the second toe with no definite plain film evidence of osteomyelitis. However, plain film can be insensitive in the early stages. If clinical concern remains, an MRI with and without contrast is the best method to evaluate. Significant progression of degenerative changes at the first MTP joint. Electronically authenticated by: HELGA GOLDBERG Date: 2022-03-22 15:21 Normal [facility] Blood Urea Nitrogenon 2021 Urea nitrogen [Mass/Vol] 21 mg/dL Normal - [facility] Comment on above: Performed By: #### P P, LYTES, CBC, BUN, CREAT, LIPID #### [place] [id number] [facility] COVID-19 Antigenon 2 COVID-19 Antigen Healthcare Worker?: N Reference Range: Negative Negative results, from patients with symptom onset beyond five days, should be treated as presumptive and confirmation with a molecular assay, if necessary, for patient management, may be performed. Negative results do not rule out COVID-19 and should not be used as the sole basis for treatment or patient management decisions, including infection control decisions. Negative results should be considered in the context of a patient's recent exposures, history and the presence of clinical signs and symptoms consistent with COVID-19. The [facility] SARS Antigen JOSE L does not differentiate between SARS-CoV and SARS-CoV-2. This test was developed and its performance characteristic determined by [employer] and validated at [facility]. This test has not been FDA cleared or approved. This test has been authorized by FDA under an Emergency Use Authorization (EUA). This test has been validated in accordance with the FDA's Guidance Document (Policy for Diagnostics Testing in Laboratories Certified to Perform High Complexity Testing under CLIA prior to Emergency Use Authorization for Coronavirus Disease-2019 during the Public Health Emergency) issued on February 05, 2020. This test is only authorized for the duration of time the declaration that circumstances exist justifying the authorization of the emergency use of in vitro diagnostic tests for detection of SARS-CoV-2 virus and/or diagnosis of COVID-19 infection under section 564(b)(1) of the Act, 21 U.S.C. 360bbb-3(b)(1), unless the authorization is terminated or revoked sooner. SARS-CoV+SARS-CoV-2 (COVID-19) Ag [Presence] in Respiratory specimen by Rapid immunoassay Negative for SARS Antigen by JOSE L PERFORMED BY: [place] [id number] PATHOLOGIST AUTOMATIC CASTING MACHINE OPERATOR ERLIN GUPTA M.D. Normal [facility] Comment on above: Performed By: #### S OFIANEG, COVID-19 HERMINIO #### [address] Coagulation Profileon 2021 aPTT Coag (Bld) [Time] 30.4 s Normal 25.1-36.5 [facility] Comment on above: Result Comment: PERF ORMED BY: [place] [id number] PATHOLOGIST AUTOMATIC CASTING MACHINE OPERATOR ERLIN GUPTA M.D. Performed By: #### P P, LYTES, CBC, BUN, CREAT, LIPID #### [address] INR Coag (PPP) [Relative time] 1.1 {INR} Normal [facility] Comment on above: Result Comment: INR Therapeutic Range A) Pre- and Peroperative OAT started two weeks before surgery. NOT HIP SURGERY: 1.5 - 2.5 HIP SURGERY: 2 - 3 B) Primary and secondary prevention of venous THROMBOSIS: 2 - 3 C) Active venous thrombosis, pulmonary embolism and prevention of recurrent venous thrombosis: 2 - 3 D) Prevention of arterial thromboembolism including patients with mechanical heart valves: 3 - 4.5 Performed By: #### P P, LYTES, CBC, BUN, CREAT, LIPID #### [facility] [address] [place] [address] PT Coag (PPP) [Time] 12.7 s Normal 9.0-12.9 [facility] Comment on above: Performed By: #### P P, LYTES, CBC, BUN, CREAT, LIPID #### [facility] [address] Complete Blood Count Auto Di ffon 03-10-2022 Basophils (Bld) [#/Vol] 0.1 10*3/uL Normal 0.0-0.2 [facility] Comment on above: Result Comment: PERF ORMED BY: [place] [id number] PATHOLOGIST AUTOMATIC CASTING MACHINE OPERATOR ERLIN GUPTA M.D. Performed By: #### P P, LYTES, CBC, BUN, CREAT, LIPID #### [address] Basophils/100 WBC (Bld) 1.6 % Normal . [facility] Comment on above: Performed By: #### P P, LYTES, CBC, BUN, CREAT, LIPID #### [address] Eosinophils (Bld) [#/Vol] 0.2 10*3/uL Normal 0.0-0.45 [facility] Comment on above: Performed By: #### P P, LYTES, CBC, BUN, CREAT, LIPID #### [address] Eosinophils/100 WBC (Bld) 3.4 % Normal . [facility] Comment on above: Performed By: #### P P, LYTES, CBC, BUN, CREAT, LIPID #### [address] Erythrocyte distribution width (RBC) [Ratio] 17.0 % High 12.0-14.8 [facility] Comment on above: Performed By: #### P P, LYTES, CBC, BUN, CREAT, LIPID #### [address] Hematocrit (Bld) [Volume fraction] 38.9 % Normal 38.8-50.0 [facility] Comment on above: Performed By: #### P P, LYTES, CBC, BUN, CREAT, LIPID #### [place] [address] [place] Hemoglobin (Bld) [Mass/Vol] 12.4 g/dL Low 13.0-17.0 [facility] Comment on above: Performed By: #### P P, LYTES, CBC, BUN, CREAT, LIPID #### [address] Lymphocytes (Bld) [#/Vol] 1.6 10*3/uL Normal 1.00-4.8 [facility] Comment on above: Performed By: #### P P, LYTES, CBC, BUN, CREAT, LIPID #### [address] Lymphocytes/100 WBC (Bld) 25.1 % Normal . [facility] Comment on above: Performed By: #### P P, LYTES, CBC, BUN, CREAT, LIPID #### [address] MCH (RBC) [Entitic mass] 22.6 pg Low 27.5-35.2 [facility] Comment on above: Performed By: #### P P, LYTES, CBC, BUN, CREAT, LIPID #### [address] MCV (RBC) [Entitic vol] 70.8 fL Low 83.5-101 [facility] Comment on above: Performed By: #### P P, LYTES, CBC, BUN, CREAT, LIPID #### [address] Mean Corpuscular HGB Conc 31.9 g/dL Low 32.5-35.6 [facility] Comment on above: Performed By: #### P P, LYTES, CBC, BUN, CREAT, LIPID #### [address] Monocytes (Bld) [#/Vol] 0.7 10*3/uL Normal 0.0-0.8 [facility] Comment on above: Performed By: #### P P, LYTES, CBC, BUN, CREAT, LIPID #### [address] Monocytes/100 WBC (Bld) 10.2 % Normal . [facility] Comment on above: Performed By: #### P P, LYTES, CBC, BUN, CREAT, LIPID #### [address] Neutrophils (Bld) [#/Vol] 3.8 10*3/uL Normal 1.8-7.7 [facility] Comment on above: Performed By: #### P P, LYTES, CBC, BUN, CREAT, LIPID #### [address] Neutrophils/100 WBC (Bld) 59.7 % Normal . [facility] Comment on above: Performed By: #### P P, LYTES, CBC, BUN, CREAT, LIPID #### [address] Nucleated RBC/100 WBC (Bld) [Ratio] 0.1 % Normal 0-0.5 [facility] Comment on above: Performed By: #### P P, LYTES, CBC, BUN, CREAT, LIPID #### [address] Platelet mean volume (Bld) [Entitic vol] 8.6 fL Normal 6.6-10.1 [facility] Comment on above: Performed By: #### P P, LYTES, CBC, BUN, CREAT, LIPID #### [place] [address] [place] Platelets (Bld) [#/Vol] 270 10*3/uL Normal 150-450 [facility] Comment on above: Performed By: #### P P, LYTES, CBC, BUN, CREAT, LIPID #### [place] [address] [place] RBC (Bld) [#/Vol] 5.49 10*6/uL Normal 3.90-5.60 [facility] Comment on above: Performed By: #### P P, LYTES, CBC, BUN, CREAT, LIPID #### [address] [place] [address] [place] WBC (Bld) [#/Vol] 6.4 10*3/uL Normal 4.5-11.0 [facility] Comment on above: Performed By: #### P P, LYTES, CBC, BUN, CREAT, LIPID #### [address] Creatinineon 03-10-2022 Creatinine [Mass/Vol] 1.01 mg/dL Normal 0.64-1.27 [facility] Comment on above: Performed By: #### P P, LYTES, CBC, BUN, CREAT, LIPID #### [address] Estimated GFR ( Raegan > 60 Normal [facility] Comment on above: Result Comment: GFR estimated reference range: According to KDOQI guidelines, <60 ml/min/1.73m2 is sufficient to diagnose a patient with chronic kidney disease. Performed By: #### P P, LYTES, CBC, BUN, CREAT, LIPID #### [address] Estimated GFR (Non- Am > 60 Normal [facility] Comment on above: Performed By: #### P P, LYTES, CBC, BUN, CREAT, LIPID #### [address] ECG 12 lead ECGon 03-10-2022 ECG 12 lead ECG [place] [address] Electrocardiograph Report Signed Patient: Janice Pandya Jr MR#: [id number] : 1955 Acct:[id number] Age/Sex: 67 / M ADM Date: 03/10/22 Loc: Room: Type: [facility] Attending Dr: Margaux Christian MD Ordering Provider: Margaux Christian MD Date of Service: 03/10/2204/26/924 ECG/ECG 12 lead ECG: pre op Copies to: Test Reason : Blood Pressure : / mmHG Vent. Rate : 066 BPM Atrial Rate : 066 BPM P-R Int : 218 ms QRS Dur : 110 ms QT Int : 410 ms P-R-T Axes : 008 030 -52 degrees QTc Int : 429 ms Sinus rhythm with 1st degree AV block Voltage criteria for left ventricular hypertrophy Abnormal ECG When compared with ECG of 09-NOV-2021 15:43, LVH criteria are now present Confirmed by [place] PEREIRA [facility], ERIAK ([id number]) on 03/10/2022 10:04:07 AM Referred By: LATESHA CHRISTIAN Electronically Signed By:ERIKA CARRION MD [facility] Transcribed By: MUS Signed By Erika Carrion MD, [facility] 03/10/22 1004 Normal [facility] Electrolyteson 03-10-2022 Chloride [Moles/Vol] 105 mmol/L Normal 95-114 [facility] Comment on above: Performed By: #### P P, LYTES, CBC, BUN, CREAT, LIPID #### [address] CO2 [Moles/Vol] 22.9 mmol/L Normal 22.0-30.0 [facility] Comment on above: Performed By: #### P P, LYTES, CBC, BUN, CREAT, LIPID #### [address] Potassium [Moles/Vol] 4.3 mmol/L Normal 3.5-5.1 [facility] Comment on above: Performed By: #### P P, LYTES, CBC, BUN, CREAT, LIPID #### [address] Sodium [Moles/Vol] 137 mmol/L Normal 136-146 [facility] Comment on above: Performed By: #### P P, LYTES, CBC, BUN, CREAT, LIPID #### [address] Laboratory - Chemistry and C hemistry - challengeon 03-10-2022 Cholesterol [Mass/Vol] 167\S\167 Normal 140-200 -[facility] 600 DO Work Phone: Comment on above: Chol less than 200 m g/dl low risk Chol 201-239 mg/dl borderline risk Chol 240 mg/dl and greater high risk Cholesterol in LDL [Mass/Vol] 80\S\80 Normal 0-100 [facility] 600 DO Work Phone: Comment on above: LDL ATP III CLASSIFI CATION LDL less than 100 mg/dL Optimal LDL 100-129 mg/dL Near or above optimal LDL 130-159 mg/dL Borderline high LDL 160-189 mg/dL High LDL greater than 189 mg/dL Very high Laboratory - Microbiology an d Antimicrobial susceptibilityon 03-10-2022 SARS-CoV-2 (COVID-19) RNA DERICK+probe Ql (Unsp spec) [facility] 600 DO Work Phone: Lipid Panelon 03-10-2022 Cholesterol [Mass/Vol] 167 mg/dL Normal 140-200 [facility] Comment on above: Result Comment: Chol less than 200 mg/dl low risk Chol 201-239 mg/dl borderline risk Chol 240 mg/dl and greater high risk Performed By: #### P P, LYTES, CBC, BUN, CREAT, LIPID #### [facility] [address] [place] [address] Cholesterol in HDL [Mass/Vol] 21 mg/dL Low 29-71 [facility] Comment on above: Result Comment: HDL CHOL ATP-III CLASSIFICATION Cardiovascular Risk HDL > or equal to 60 mg/dL LOW HDL < 40 mg/dL HIGH Performed By: #### P P, LYTES, CBC, BUN, CREAT, LIPID #### [facility] [address] [place] [address] Cholesterol.total/Ch olesterol in HDL [Mass ratio] 8.0 {ratio} Normal <5.0 [facility] Comment on above: Result Comment: PERF ORMED BY: [place] [address] PATHOLOGIST AUTOMATIC CASTING MACHINE OPERATOR ERLIN GUPTA M.D. Performed By: #### P P, LYTES, CBC, BUN, CREAT, LIPID #### [facility] [address] [place] [address] LDL Cholesterol,Calculat ed 80 mg/dL Normal 0-100 [facility] Comment on above: Result Comment: LDL ATP III CLASSIFICATION LDL less than 100 mg/dL Optimal LDL 100-129 mg/dL Near or above optimal LDL 130-159 mg/dL Borderline high LDL 160-189 mg/dL High LDL greater than 189 mg/dL Very high Performed By: #### P P, LYTES, CBC, BUN, CREAT, LIPID #### [facility] [address] Triglyceride w/Reflex 328 mg/dL High 35-149 [facility] Comment on above: Result Comment: TRIG ATP III CLASSIFICATION TRIG less than 150 mg/dL Normal TRIG 150-199 mg/dL Borderline high TRIG 200-500 mg/dL High TRIG greater than 500 mg/dL Very high Standard traceable to the Center for Disease Conrtrol and Prevention (CDC) test method. Performed By: #### P P, LYTES, CBC, BUN, CREAT, LIPID #### [facility] [address] VLDL CHOLESTEROL 65 mg/dL Normal [facility] Comment on above: Performed By: #### P P, LYTES, CBC, BUN, CREAT, LIPID #### [facility] [address] No Panel Informationon 03-10 0.1\S\0.1 Normal 0-0.5 [facility] [employer] DO Work Phone: Comment on above: PERFORMED BY:[facility] [address] [id number] MEDICAL DIRECTORERLIN GUPTA M.D. 0.2\S\0.2 Normal 0.0-0.45 [facility] [employer] DO Work Phone: 0.7\S\0.7 Normal 0.0-0.8 [facility] [employer] 600 DO Work Phone: 1.6\S\1.6 Normal . [facility] [employer] 600 DO Work Phone: 3.8\S\3.8 Normal 1.8-7.7 -[facility] 600 DO Work Phone: 3.4\S\3.4 Normal . [facility] 600 DO Work Phone: 10.2\S\10.2 Normal . [facility] 600 DO Work Phone: 25.1\S\25.1 Normal . [facility] 600 DO Work Phone: 59.7\S\59.7 Normal . [facility] 600 DO Work Phone: 8.6\S\8.6 Normal 6.6-10.1 [facility] 600 DO Work Phone: 270\S\270 Normal 150-450 [facility] 600 DO Work Phone: 17.0\S\17.0 above high threshold 12.0-14.8 [facility] 600 DO Work Phone: 31.9\S\31.9 below low threshold 32.5-35.6 [facility] 600 DO Work Phone: 22.6\S\22.6 below low threshold 27.5-35.2 [facility] 600 DO Work Phone: 70.8\S\70.8 below low threshold 83.5-101 [facility] 600 DO Work Phone: 38.9\S\38.9 Normal 38.8-50.0 [facility] 600 DO Work Phone: 12.4\S\12.4 below low threshold 13.0-17.0 [facility] 600 DO Work Phone: 5.49\S\5.49 Normal 3.90-5.60 [facility] 600 DO Work Phone: 6.4\S\6.4 Normal 4.1-10.5 [facility] 600 DO Work Phone: 30.4\S\30.4 Normal 25.1-36.5 [facility] 600 DO Work Phone: Comment on above: PERFORMED BY:[facility] [place], [place] [id number] MEDICAL DIRECTORERLIN GUPTA M.D. 1.1\S\1.1 Normal [facility] 600 DO Work Phone: Comment on above: INR Therapeutic Rang e A) Pre- and Peroperative OAT started two weeks before surgery. NOT HIP SURGERY: 1.5 - 2.5 HIP SURGERY: 2 - 3 B) Primary and secondary prevention of venous THROMBOSIS: 2 - 3 C) Active venous thrombosis, pulmonary embolism and prevention of recurrent venous thrombosis: 2 - 3 D) Prevention of arterial thromboembolism including patients with mechanical heart valves: 3 - 4.5 12.7\S\12.7 Normal 9.0-12.9 [facility] 600 DO Work Phone: Negative Normal Negative [facility] DO Work Phone: Comment on above: This is a duplicate Herminio SARS Antigen (JOSE L) result to be used for statistical tracking purpose only.PERFORMED BY:[facility] [place], [place] [phone] MEDICAL DIRECTORERLIN GUPTA M.D. 22.9\S\22.9 Normal 22.0-30.0 [facility] 600 DO Work Phone: 105\S\105 Normal 95-114 [facility] 600 DO Work Phone: 4.3\S\4.3 Normal 3.5-5.1 [facility] 600 DO Work Phone: 137\S\137 Normal 136-146 [place] [address] DO Work Phone: 21\S\21 below low threshold 29-71 [place] [address] DO Work Phone: Comment on above: HDL CHOL ATP-III CLA SSIFICATION Cardiovascular Risk HDL > or equal to 60 mg/dL LOW HDL < 40 mg/dL HIGH > 60 Normal [place] [address] DO Work Phone: Comment on above: GFR estimated refere nce range: According to KDOQI guidelines, <60 ml/min/1.73m2 is sufficient to diagnose a patient with chronic kidney disease. 1.01\S\1.01 Normal 0.64-1.27 [place] [address] DO Work Phone: 8.0\S\8.0 Normal <5.0 [place] [address] DO Work Phone: Comment on above: PERFORMED BY:[facility] [place], [place] [phone] MEDICAL DIRECTORERLIN GUPTA M.D. 65\S\65 Normal [place] [address] DO Work Phone: 328\S\328 above high threshold 35-149 [place] [address] DO Work Phone: Comment on above: TRIG ATP III CLASSIF ICATION TRIG less than 150 mg/dL Normal TRIG 150-199 mg/dL Borderline high TRIG 200-500 mg/dL High TRIG greater than 500 mg/dL Very high Standard traceable to the Center for Disease Conrtrol and Prevention (CDC) test method. Herminio Ag Negativeon 03-10-20 22 Herminio Ag Negative Negative Normal Negative [facility] Comment on above: Result Comment: This is a duplicate Herminio SARS Antigen (JOSE L) result to be used for statistical tracking purpose only. PERFORMED BY: [facility] [address] [place] [address] PATHOLOGIST AUTOMATIC CASTING MACHINE OPERATOR ERLIN GUPTA M.D. Performed By: #### S PADMINI CHAU-19 HERMINIO #### [facility] [address] CARDIAC STRESS/REST INJE CTIONon 03-01-2022 [facility] CARDIAC STRESS/REST INJECTION Patient Name: JANICE PANDYA STUDY: MYOCARDIAL PERFUSION STRESS TEST WITH LEXISCAN Performing facility: [facility], [address] [place] [address], [address] Provider: Helga Flores DO, [facility] PCP: Dr. Vineet Martin Supervising provider: Ratna Queen DO, [facility] INDICATION: Angina CAD; S/P PTCA HISTORY: Gender: M; Age: 67 y/o ; Height: 185.42 cm; Weight: 106.158145 kg. High Cholesterol; CAD; Diabetes; HTN; Chest Pain; Denies smoking. Cardiac catheterization on 2021. PTCA on 2021. CABG on 1992. COMPARISON: Previous nuclear testing completed at [facility]. ACCESSION NUMBER(S): [id number]; [id number]; [id number] ORDERING CLINICIAN: HELGA FLORES TECHNIQUE: ONE DAY protocol. Stress injection: Date:03-01-22, 35.6 mCi of Myoview IV 20 seconds after rapid injection of Lexiscan. Rest injection: Date: 03-01-22, 11.5 mCi of Myoview IV at rest. The patient had a rapid injection of 0.4 mg of Lexiscan IV over 10 seconds. Imaging was performed by gated tomographic technique. Reason for Lexiscan: dizziness/unsteady/fa ll risk STRESS TEST DATA: Resting heart rate was 61 BPM. Resting blood pressure was 126/70 mmHg. Peak blood pressure was 100/52 mmHg. Peak heart rate was 81 BPM. TEST TERMINATED DUE TO: Protocol completed FINDINGS: STRESS TEST RESULTS: Resting electrocardiogram revealed normal sinus rhythm. There were no significant ischemic ECG changes or dysrhythmias. The patient did not have chest pains/symptoms during procedure. There was a normal recovery phase. IMAGING RESULTS: Image quality was good. Rest and stress tomographic images were reviewed and revealed abnormal perfusion. There was evidence of perfusion abnormality with small area of moderate which is reversible on rest images consistent with small area of lateral wall ischemia. There was evidence of perfusion abnormality with small area of moderate which is fixed on both rest and stress images consistent with small inferolateral myocardial infarction. There was not left ventricular dilatation with stress. Overall left ventricular systolic function appeared to be abnormal. There were regional wall motion abnormalities with moderate inferolateral hypokinesis. LVEF was 45%. TID is 1.15 and is normal. There were no evidence of attenuation artifact. IMPRESSION: Abnormal Lexiscan Myoview cardiac perfusion stress test. Smaller lateral myocardial ischemia by perfusion imaging. Small inferolateral myocardial infarction by perfusion imaging. Abnormal left ventricular systolic function. Left ventricular ejection fraction 40 %. When compared to prior study the lateral wall ischemia is new. Electronically signed by: MARGAUX CRHISTIAN MD Normal [facility] No Panel Informationon 03-01 Normal -[facility] 250 DO Work Phone: Complete Blood Count with Au to Diffon 01-23-2022 Basophils (Bld) [#/Vol] 0.08 10*3/uL Normal 0.00-0.20 [facility] Specialist Comment on above: Performed By: #### C BCAD #### [facility] [address] [place], [place] [id number] Basophils/100 WBC (Bld) 1.1 % Normal [facility] Comment on above: Performed By: #### C BCAD #### [facility] [address] [place], [place] [id number] Eosinophils (Bld) [#/Vol] 0.29 10*3/uL Normal 0.02-0.50 [facility] Comment on above: Performed By: #### C BCAD #### [facility] [address] [place], [place] [id number] Eosinophils/100 WBC (Bld) 4.1 % Normal [facility] Comment on above: Performed By: #### C BCAD #### [facility] [address] [place], [place] [id number] Erythrocyte distribution width (RBC) [Ratio] 17.6 % High 11.0-15.0 [facility] Comment on above: Performed By: #### C BCAD #### [facility] [address] [place], [place] [id number] Hematocrit (Bld) [Volume fraction] 41.0 % Normal 38.5-50.0 [facility] Comment on above: Performed By: #### C BCAD #### [facility] [address] [place], [place] [id number] Hemoglobin (Bld) [Mass/Vol] 11.9 g/dL Low 13.0-17.1 [facility] Special[facility] Comment on above: Performed By: #### C BCAD #### [facility] [address] [place], [place] [id number] Lymphocytes (Bld) [#/Vol] 1.8 10*3/uL Normal 0.9-3.9 [facility] Comment on above: Performed By: #### C BCAD #### [facility] [address] [place], [place] [id number] Lymphocytes/100 WBC (Bld) 25.1 % Normal [facility] Comment on above: Performed By: #### C BCAD #### [facility] [address] [place], [place] [id number] MCH (RBC) [Entitic mass] 21.9 pg Low 27.0-33.0 [facility] Comment on above: Performed By: #### C BCAD #### [facility] [address] [place], [place] [id number] MCHC (RBC) [Mass/Vol] 29.0 g/dL Low 32.0-36.0 [facility] Comment on above: Performed By: #### C BCAD #### [facility] [address] [place], [place] [id number] MCV (RBC) [Entitic vol] 76 fL Low 80-100 [facility] Comment on above: Performed By: #### C BCAD #### [facility] [address] [place], [place] [id number] Monocytes (Bld) [#/Vol] 0.7 10*3/uL Normal 0.2-0.9 [facility] Comment on above: Performed By: #### C BCAD #### [facility] [address] [place], [place] [id number] Monocytes/100 WBC (Bld) 9.3 % Normal [facility] Comment on above: Performed By: #### C BCAD #### [facility] [address] [place], [place] [id number] Neutrophils (Bld) [#/Vol] 4.3 10*3/uL Normal 1.5-7.8 [facility] Comment on above: Performed By: #### C BCAD #### [facility] [address] [place], [place] [id number] Neutrophils/100 WBC (Bld) 60.0 % Normal [facility] Comment on above: Performed By: #### C BCAD #### [facility] [address] [place], [place] [id number] Platelet mean volume (Bld) [Entitic vol] 10.50 fL Normal 7.50-12.50 [facility] Comment on above: Performed By: #### C BCAD #### [facility] [address] [place], [place] [id number] Platelets (Bld) [#/Vol] 306 10*3/uL Normal 140-400 [facility] Comment on above: Performed By: #### C BCAD #### [facility] [address] [place], [place] [id number] RBC (Bld) [#/Vol] 5.43 10*6/uL Normal 4.20-5.80 [facility] Comment on above: Performed By: #### C BCAD #### [facility] [address] [place], [place] [id number] RDW-SD 46.0 fL Normal 37.0-50.0 [facility] Comment on above: Performed By: #### C BCAD #### [facility] [address] [place], [place] [id number] WBC (Bld) [#/Vol] 7.1 10*3/uL Normal 3.8-11.0 [facility] Comment on above: Performed By: #### C BCAD #### [facility] [address] [place], [place] [id number] Hemoglobin A1Con 01-23-2022 EAG 182.90 Normal [facility] Comment on above: Performed By: #### A 1C #### [facility] [address] [place], [place] [id number] HbA1c (Bld) [Mass fraction] 8.0 % High 4.0-6.0 [facility] Comment on above: Performed By: #### A 1C #### [facility] [address] [place], [place] [id number] Lipid Panelon 01-23-2022 Cholesterol [Mass/Vol] 177 mg/dL Normal 125-200 [facility] Comment on above: Result Comment: Low risk < 200mg/dL Borderline risk 201-239 mg/dl High risk > or equal to 240 Performed By: #### L IPD #### [facility] [address] [place], [place] [id number] Cholesterol in HDL [Mass/Vol] 25 mg/dL Low >40 [facility] Comment on above: Result Comment: High Cardiovascular Risk HDL <40 mg/dL Low Cardiovascular Risk HDL > or equal to 60 mg/dl Performed By: #### L IPD #### [facility] [address] [place], [place] [id number] Cholesterol in LDL [Mass/Vol] 83 mg/dL Normal [facility] Comment on above: Result Comment: LDL ATP III CLASSIFICATION LDL less than 100 mg/dl Optimal LDL 100-129 mg/dl Near or above optimal LDL 130-159 Borderline high LDL 160-189 High LDL greater than 189 mg/dl Very High Performed By: #### L IPD #### [facility] [address] [place], [place] [id number] Cholesterol in VLDL [Mass/Vol] 69 mg/dL Normal [facility] Comment on above: Performed By: #### L IPD #### [facility] [address] [place], [place] [id number] Cholesterol.total/Ch olesterol in HDL [Mass ratio] 7 {ratio} Normal [facility] Comment on above: Performed By: #### L IPD #### [facility] [address] [place], [place] [id number] Triglyceride [Mass/Vol] 343 mg/dL High 30-150 [facility] Associate Professor Physician Comment on above: Result Comment: TRIG ATPIII CLASSIFICATIONS TRIG less than 150 mg/dl Normal TRIG 150-199 mg/dl Borderline High TRIG 200-500 mg/dl High TRIG greather than 500 mg/dl Very High Performed By: #### L IPD #### [facility] [address] [place], [place] [id number] PSA SCREEN (MEDICARE)on 01-04 TPSA 0.405 ng/mL Normal <4.000 [facility] Associate Professor Physician Comment on above: Result Comment: PSA Test Method: ECLIA/Joseph e 601 Performed By: #### P SA #### [facility] [address] [place], [place] [id number] Tobacco Screening.on 022 Fall risk assessment a) No falls within the last year [facility] [employer] DO Work Phone: Tobacco use status CPHS b) No [place] [address] DO Work Phone: Laboratory - Chemistry and C hemistry - challengeon 11-07-2021 Cholesterol [Mass/Vol] 183\S\183 Normal 140-200 [facility] [employer] DO Work Phone: Comment on above: Chol less than 200 m g/dl low risk Chol 201-239 mg/dl borderline risk Chol 240 mg/dl and greater high risk Cholesterol in LDL [Mass/Vol] 97\S\97 Normal 0-100 [place] [address] DO Work Phone: Comment on above: LDL ATP III CLASSIFI CATION LDL less than 100 mg/dL Optimal LDL 100-129 mg/dL Near or above optimal LDL 130-159 mg/dL Borderline high LDL 160-189 mg/dL High LDL greater than 189 mg/dL Very high Laboratory - Microbiology an d Antimicrobial susceptibilityon 11-07-2021 SARS-CoV-2 (COVID-19) RNA DERICK+probe Ql (Unsp spec) [facility] [employer] DO Work Phone: No Panel Informationon 11-07 56.2\S\56.2 Normal . [place] [address] DO Work Phone: 8.5\S\8.5 Normal 6.6-10.1 [facility] DO Work Phone: 279\S\279 Normal 150-450 [facility] 250 DO Work Phone: 16.0\S\16.0 above high threshold 12.0-14.8 [facility] 250 DO Work Phone: 31.3\S\31.3 below low threshold 32.5-35.6 [facility] 250 DO Work Phone: 22.7\S\22.7 below low threshold 27.5-35.2 [facility] 250 DO Work Phone: 3.5\S\3.5 Normal 1.8-7.7 [facility] 250 DO Work Phone: 0.1\S\0.1 Normal 0.0-0.2 [facility] 250 DO Work Phone: Comment on above: PERFORMED BY:[place] [address] [address] [place], [place] [phone] MEDICAL DIRECTORERLIN GUPTA M.D. 1.4\S\1.4 Normal . [facility] 250 DO Work Phone: 4.0\S\4.0 Normal . [facility] 250 DO Work Phone: 10.2\S\10.2 Normal . [facility] DO Work Phone: 28.2\S\28.2 Normal . [facility] [address] DO Work Phone: 0.2\S\0.2 Normal 0.0-0.45 [facility] [address] DO Work Phone: 0.6\S\0.6 Normal 0.0-0.8 [facility] [address] DO Work Phone: 1.7\S\1.7 Normal 1.00-4.8 [facility] 250 DO Work Phone: 72.3\S\72.3 below low threshold 83.5-101 [facility] 250 DO Work Phone: 39.8\S\39.8 Normal 38.8-50.0 [facility] DO Work Phone: 12.5\S\12.5 below low threshold 13.0-17.0 [facility] DO Work Phone: 5.50\S\5.50 Normal 3.90-5.60 [facility] [facility] DO Work Phone: 6.2\S\6.2 Normal 4.1-10.5 [facility] 250 DO Work Phone: 34.4\S\34.4 Normal 25.1-36.5 [facility] 250 DO Work Phone: Comment on above: PERFORMED BY:[place] [address] [address], [place] [id number] MEDICAL DIRECTORERLIN GUPTA M.D. 1.1\S\1.1 Normal [facility] 250 DO Work Phone: Comment on above: INR Therapeutic Rang e A) Pre- and Peroperative OAT started two weeks before surgery. NOT HIP SURGERY: 1.5 - 2.5 HIP SURGERY: 2 - 3 B) Primary and secondary prevention of venous THROMBOSIS: 2 - 3 C) Active venous thrombosis, pulmonary embolism and prevention of recurrent venous thrombosis: 2 - 3 D) Prevention of arterial thromboembolism including patients with mechanical heart valves: 3 - 4.5 12.2\S\12.2 Normal 9.0-12.9 [facility] 250 DO Work Phone: Negative Normal Negative [facility] 250 DO Work Phone: Comment on above: This is a duplicate Herminio SARS Antigen (JOSE L) result to be used for statistical tracking purpose only.PERFORMED BY:[facility] [place] [id number] MEDICAL DIRECTORSAN [facility] ALONSO Garner 24.2\S\24.2 Normal 22.0-30.0 [facility] 250 DO Work Phone: 101\S\101 Normal 95-114 [facility] 250 DO Work Phone: 4.5\S\4.5 Normal 3.5-5.1 [facility] 250 DO Work Phone: 139\S\139 Normal 136-146 [facility] 250 DO Work Phone: 23\S\23 Normal 9-23 [facility] 250 DO Work Phone: > 60 Normal -[facility] 250 DO Work Phone: Comment on above: GFR estimated refere nce range: According to KDOQI guidelines, <60 ml/min/1.73m2 is sufficient to diagnose a patient with chronic kidney disease. 1.14\S\1.14 Normal 0.64-1.27 [facility] 250 DO Work Phone: 9.2\S\9.2 Normal <5.0 [facility] 250 DO Work Phone: Comment on above: PERFORMED BY:[facility] [place] [id number] MEDICAL DIRECTORERLIN GUPTA M.D. 66\S\65 Normal [facility] 250 DO Work Phone: 329\S\329 above high threshold 35-149 -[facility] 250 DO Work Phone: Comment on above: TRIG ATP III CLASSIF ICATION TRIG less than 150 mg/dL Normal TRIG 150-199 mg/dL Borderline high TRIG 200-500 mg/dL High TRIG greater than 500 mg/dL Very high Standard traceable to the Center for Disease Conrtrol and Prevention (CDC) test method. 20\S\20 below low threshold 29-71 [facility] 250 DO Work Phone: Comment on above: HDL CHOL ATP-III CLA SSIFICATION Cardiovascular Risk HDL > or equal to 60 mg/dL LOW HDL < 40 mg/dL HIGH [facility] CARDIAC STRESS/REST INJE CTIONon 10-12-2021 [facility] CARDIAC STRESS/REST INJECTION Patient Name: JANICE PANDYA STUDY: MYOCARDIAL PERFUSION STRESS TEST WITH LEXISCAN Performing facility: [facility], [address] [place] [address], [address] Provider: Helga Flores DO, [facility] PCP: Dr. Vineet Martin Supervising provider: Erika Carrion MD, [facility] INDICATION: CAD; HISTORY: Gender: M; Age: 66 y/o ; Height: 185.42 cm; Weight: 106.154286 kg. High Cholesterol; CAD; Diabetes; HTN; Chest Pain; Denies smoking. Cardiac catheterization on 2014. PTCA on 2014. COMPARISON: Previous nuclear testing completed at [facility]. ACCESSION NUMBER(S): [id number]; [id number]; [id number] ORDERING CLINICIAN: HELGA FLORES TECHNIQUE: ONE DAY protocol. Stress injection: Date:10-12-21, 34.6 mCi of Myoview IV 20 seconds after rapid injection of Lexiscan. Rest injection: Date: 10-12-21, 11.2 mCi of Myoview IV at rest. The patient had a rapid injection of 0.4 mg of Lexiscan IV over 10 seconds. Imaging was performed by gated tomographic technique. Reason for Lexiscan: dizziness/unsteady/fa ll risk STRESS TEST DATA: Resting heart rate was 63 BPM. Resting blood pressure was 152/84 mmHg. Peak blood pressure was 154/62 mmHg. Peak heart rate was 81 BPM. TEST TERMINATED DUE TO: Protocol completed FINDINGS: STRESS TEST RESULTS: Resting electrocardiogram revealed sinus bradycardia with first-degree AV block and nonspecific ST and T changes. There were no significant ischemic ECG changes, in frequent isolated PVCs were noted during the stress test. The patient did not have chest pains/symptoms during procedure. There was a normal recovery phase. IMAGING RESULTS: Image quality was good. Rest and stress tomographic images were reviewed and revealed abnormal perfusion. There was no evidence of perfusion abnormality suggestive of ischemia ischemia. There was evidence of a small fixed perfusion abnormality involving the basal inferior wall consistent with infarction. There was no left ventricular dilatation with stress. Overall left ventricular systolic function appeared to be abnormal. There was mild basal inferior wall hypokinesis. LVEF was 46%. TID is 1.0 and is normal. There was no evidence of attenuation artifact. IMPRESSION: Abnormal Lexiscan Myoview cardiac perfusion stress test. No myocardial ischemia by perfusion imaging. Small basal inferior myocardial infarction by perfusion imaging. Abnormal left ventricular systolic function. Left ventricular ejection fraction 46 %. When compared to a study from 2019, the previous study reported inferior myocardial infarction with minimal inferior ischemia. Ejection fraction measures 55% previously. Current study reveals only basal infarction with no ischemia and with drop of the ejection fraction down to 46%. Electronically signed by: ERIKA CARRION MD Normal [facility] No Panel Informationon 10-12 Normal [facility] 600 DO Work Phone: Quick Strepon 10-10-2021 S. pyogenes Org specific cx Ql (Throat) Negative [employer] Other Quick Strep [employer] [facility] [employer] Other Tobacco Screening.on 021 Fall risk assessment a) No falls within the last year [facility] 250 DO Work Phone: Tobacco use status CPHS b) No [facility] 250 DO Work Phone: Vital Signs Date Time Vital Sign Value Performing Clinician Facility 12-04-2024 11:36-0500 Body height 185.4 cm Joyce Ramsey Work Phone: [facility] 12-04-2024 11:36-0500 Body mass index (BMI) [Ratio] 28.23 kg/m2 Joyce Ramsey GEOPHYSICAL PROSPECTING PERMIT AGENT Work Phone: [facility] 12-04-2024 11:36-0500 Body temperature 98.01 [degF] Joyce Ramsey GEOPHYSICAL PROSPECTING PERMIT AGENT Work Phone: [facility] 12-04-2024 11:36-0500 Body weight 97.07 kg Joyce Ramsey GEOPHYSICAL PROSPECTING PERMIT AGENT Work Phone: [facility] 12-04-2024 11:36-0500 Diastolic blood pressure 78 mm[Hg] Joyce Ramsey GEOPHYSICAL PROSPECTING PERMIT AGENT Work Phone: [facility] 12-04-2024 11:36-0500 Heart rate 62 /min Joyce Ramsey GEOPHYSICAL PROSPECTING PERMIT AGENT Work Phone: [facility] 12-04-2024 11:36-0500 SaO2% (BldA) [Mass fraction] 99 % Joyce Ramsey GEOPHYSICAL PROSPECTING PERMIT AGENT Work Phone: [facility] 12-04-2024 11:36-0500 Systolic blood pressure 120 mm[Hg] Joyce Ramsey GEOPHYSICAL PROSPECTING PERMIT AGENT Work Phone: [facility] 12-01-2024 09:09-0500 Body height 185.4 cm Lashaun Petznick DO Work Phone: [facility] 12-01-2024 09:09-0500 Body mass index (BMI) [Ratio] 28.5 kg/m2 Lashaun Petznick DO Work Phone: [facility] 12-01-2024 09:09-0500 Body temperature 98.29 [degF] Lashaun Petznick DO Work Phone: [facility] 12-01-2024 09:09-0500 Body weight 97.98 kg Lashaun Petznick DO Work Phone: [facility] 12-01-2024 09:09-0500 Diastolic blood pressure 82 mm[Hg] Lashaun Petznick DO Work Phone: [facility] 12-01-2024 09:09-0500 Heart rate 83 /min Lashaun Petznick DO Work Phone: [facility] 12-01-2024 09:09-0500 SaO2% (BldA) [Mass fraction] 96 % Lashaun Petznick DO Work Phone: [facility] 12-01-2024 09:09-0500 Systolic blood pressure 140 mm[Hg] Lashaun Petznick DO Work Phone: [facility] 09-01-2024 09:14-0400 Body height 185.4 cm Lashaun Petznick DO Work Phone: [facility] 09-01-2024 09:14-0400 Body mass index (BMI) [Ratio] 29.5 kg/m2 Lashaun Petznick DO Work Phone: [facility] 09-01-2024 09:14-0400 Body temperature 96.6 [degF] Lashaun Petznick DO Work Phone: [facility] 09-01-2024 09:14-0400 Body weight 101.42 kg Lashaun Petznick DO Work Phone: [facility] 09-01-2024 09:14-0400 Diastolic blood pressure 72 mm[Hg] Lashaun Petznick DO Work Phone: [facility] 09-01-2024 09:14-0400 Heart rate 69 /min Lashaun Petznick DO Work Phone: [facility] 09-01-2024 09:14-0400 SaO2% (BldA) [Mass fraction] 96 % Lashaun Petznick DO Work Phone: [facility] 09-01-2024 09:14-0400 Systolic blood pressure 124 mm[Hg] Lashaun Petznick DO Work Phone: [facility] 06-16-2024 15:30-0400 Body height 185.4 cm Nitish Martin DO Work Phone: [facility] 06-16-2024 15:30-0400 Body mass index (BMI) [Ratio] 29.42 kg/m2 Nitish Martin DO Work Phone: [facility] 06-16-2024 15:30-0400 Body temperature 98.29 [degF] Nitish Martin DO Work Phone: [facility] 06-16-2024 15:30-0400 Body weight 101.15 kg Nitish Martin DO Work Phone: [facility] 06-16-2024 15:30-0400 Diastolic blood pressure 80 mm[Hg] Nitish Martin DO Work Phone: [facility] 06-16-2024 15:30-0400 Heart rate 80 /min Nitish Martin DO Work Phone: [facility] 06-16-2024 15:30-0400 Systolic blood pressure 122 mm[Hg] Nitish Martin DO Work Phone: [facility] 01-29-2024 14:36-0400 Body height 185.4 cm Martin Queen DO Work Phone: [facility] 01-29-2024 14:36-0400 Body mass index (BMI) [Ratio] 29.69 kg/m2 Martin Queen DO Work Phone: [facility] 01-29-2024 14:36-0400 Body weight 102.06 kg Martin Queen DO Work Phone: [facility] 01-29-2024 14:36-0400 Diastolic blood pressure 70 mm[Hg] Martin Queen DO Work Phone: [facility] 01-29-2024 14:36-0400 Heart rate 86 /min Martin Queen DO Work Phone: [facility] 01-29-2024 14:36-0400 Systolic blood pressure 138 mm[Hg] Martin Queen DO Work Phone: [facility] 05-10-2023 12:10-0400 Body height 185.42 cm Barbara Ellis Other [employer] Other 05-10-2023 12:10-0400 Body mass index (BMI) [Ratio] 30.26 kg/m2 Barbara Ellis Other [employer] Other 05-10-2023 12:10-0400 Body temperature 97.8 [degF] Barbara Ellis Other [employer] Other 05-10-2023 12:10-0400 Body weight 104.06 kg Barbara Ellis Other [employer] Other 05-10-2023 12:10-0400 Respiratory rate 18 /min Barbara Ellis Other [employer] Other 05-10-2023 12:10-0400 SaO2% (BldA) [Mass fraction] 97 % Barbara Ellis Other [employer] Other 01-23-2023 11:01-0400 Body height 185.42 cm Nitish Martin Work Phone: [facility] DO Work Phone: 01-23-2023 11:01-0400 Body mass index (BMI) [Ratio] 30.08 kg/m2 Nitish Martin Work Phone: [facility] DO Work Phone: 01-23-2023 11:01-0400 Body surface area Derived from formula 2.28 m2 Nitish Martin Work Phone: [facility] DO Work Phone: 01-23-2023 11:01-0400 Body weight 103.42 kg Nitish Martin Work Phone: [facility] DO Work Phone: 01-23-2023 11:01-0400 Diastolic blood pressure 60 mm[Hg] Nitish Martin Work Phone: [facility] DO Work Phone: 01-23-2023 11:01-0400 Heart rate 60 /min Nitish Martin Work Phone: [facility] 250 DO Work Phone: 01-23-2023 11:01-0400 Systolic blood pressure 108 mm[Hg] Nitish Martin Work Phone: [facility] 250 DO Work Phone: 05-01-2022 09:28-0400 Body height 185.42 cm Nitish Martin Work Phone: [facility] 250 DO Work Phone: 05-01-2022 09:28-0400 Body mass index (BMI) [Ratio] 29.42 kg/m2 Nitish Martin Work Phone: [facility] 250 DO Work Phone: 05-01-2022 09:28-0400 Body surface area Derived from formula 2.25 m2 Nitish Martin Work Phone: [facility] 250 DO Work Phone: 05-01-2022 09:28-0400 Body weight 101.15 kg Nitish Martin Work Phone: [facility] 250 DO Work Phone: 05-01-2022 09:28-0400 Diastolic blood pressure 50 mm[Hg] Nitish Martin Work Phone: [facility] 250 DO Work Phone: 05-01-2022 09:28-0400 Heart rate 80 /min Nitish Martin Work Phone: [facility] 250 DO Work Phone: 05-01-2022 09:28-0400 Systolic blood pressure 80 mm[Hg] Nitish Martin Work Phone: [facility] 250 DO Work Phone: 03-01-2022 07:30-0400 40 1 Nitish Martin Work Phone: [facility] 600 DO Work Phone: Comment on above: [id number] 11-22-2021 10:31-0500 Body height 182.88 cm Nitish Martin Work Phone: [facility] 250 DO Work Phone: 11-22-2021 10:31-0500 Body mass index (BMI) [Ratio] 30.38 kg/m2 Nitish Martin Work Phone: [facility] 250 DO Work Phone: 11-22-2021 10:31-0500 Body surface area Derived from formula 2.24 m2 Nitish Martin Work Phone: [facility] 250 DO Work Phone: 11-22-2021 10:31-0500 Body weight 101.61 kg Nitish Martin Work Phone: [facility] 250 DO Work Phone: 11-22-2021 10:31-0500 Diastolic blood pressure 72 mm[Hg] Nitish Martin Work Phone: [facility] 250 DO Work Phone: 11-22-2021 10:31-0500 Heart rate 66 /min Nitish Martin Work Phone: [facility] 250 DO Work Phone: 11-22-2021 10:31-0500 Systolic blood pressure 124 mm[Hg] Nitish Martin Work Phone: [facility] 250 DO Work Phone: 10-10-2021 10:00-0500 Body height 185.42 cm Jaelyn Espinal Other [employer] Other 10-10-2021 10:00-0500 Body temperature 97.5 [degF] Jaelyn Espinal Other [employer] Other 10-10-2021 10:00-0500 SaO2% (BldA) [Mass fraction] 99 % Jaelyn Espinal Other [employer] Other 09-27-2021 09:48-0500 Body height 182.88 cm Nitish Martin Work Phone: [facility] 250 DO Work Phone: 09-27-2021 09:48-0500 Body mass index (BMI) [Ratio] 30.65 kg/m2 Nitish Martin Work Phone: [facility] 250 DO Work Phone: 09-27-2021 09:48-0500 Body surface area Derived from formula 2.24 m2 Nitish Martin Work Phone: [facility] 250 DO Work Phone: 09-27-2021 09:48-0500 Body weight 102.51 kg Nitish Martin Work Phone: [facility] 250 DO Work Phone: 09-27-2021 09:48-0500 Diastolic blood pressure 59 mm[Hg] Nitish Martin Work Phone: [facility] 250 DO Work Phone: 09-27-2021 09:48-0500 Heart rate 73 /min Nitish Martin Work Phone: [facility] 250 DO Work Phone: 09-27-2021 09:48-0500 Systolic blood pressure 129 mm[Hg] Nitish Martin Work Phone: [facility] 250 DO Work Phone: 09-27-2021 09:48-0500 46 1 Nitish Martin Work Phone: [facility] 250[facility] [place] Work Phone: Comment on above: [id number] Encounters Encounter Date Encounter Type Care Provider Facility Start: 12-04-2024 End: 12-04-2024 Bamboo flowsheet Nitish Martin DO Work Phone: [facility] 230 Start: 12-04-2024 End: 12-04-2024 Bamboo flowsheet Nitish Martin DO Work Phone: [facility] 230 Start: 12-04-2024 End: 12-04-2024 Assay of hemosiderin, quant Joyce Ramsey GEOPHYSICAL PROSPECTING PERMIT AGENT Work Phone: [facility] Start: 12-04-2024 End: 12-04-2024 Patient encounter procedure Joyce Ramsey GEOPHYSICAL PROSPECTING PERMIT AGENT Work Phone: [facility] 230 Comment on above: Routine general medi jacki examination at health care facility (Primary Dx); Encounter for vaccination; Hypertension, unspecified type (CMS/HCC); Stage 3a chronic kidney disease (CKD) (CMS/HCC); Type 2 diabetes mellitus with stage 3a chronic kidney disease, without long-term current use of insulin (HCC) (CMS/HCC); Hyperlipidemia, unspecified hyperlipidemia type (CMS/HCC) Start: 12-04-2024 End: 12-04-2024 ambulatory JOYCE RAMSEY Not Available Start: 12-01-2024 End: 12-01-2024 Office outpatient visit 25 minutes Lashaun Bradley DO Work Phone: [facility] 230 Comment on above: Type 2 diabetes lisandro itus with other circulatory complications (CMS/HCC) (Primary Dx); Type 2 diabetes mellitus with stage 3a chronic kidney disease, without long-term current use of insulin (HCC) (CMS/HCC); Preventative health care; Screening for prostate cancer Start: 12-01-2024 End: 12-01-2024 Patient encounter status Lashaun Bradley DO Work Phone: [facility] Start: 12-01-2024 End: 12-01-2024 ambulatory LASHAUN BRADLEY Not Available Start: 09-01-2024 End: 09-01-2024 Office outpatient visit 25 minutes Lashaun Bradley DO Work Phone: [facility] 230 Comment on above: Type 2 diabetes lisandro itus with other circulatory complications (CMS/HCC) Start: 09-01-2024 End: 09-01-2024 ambulatory LASHAUN BRADLEY Not Available Start: 08-29-2024 End: 08-29-2024 Telephone encounter Lashaun Bradley DO Work Phone: [facility] 230 Start: 06-27-2024 End: 06-27-2024 Bamboo flowsheet CallMD PA Work Phone: [facility] Start: 06-27-2024 End: 06-27-2024 [employer] CallMD PA Work Phone: [facility] Start: 06-27-2024 End: 06-27-2024 Office outpatient new 45 minutes CallMD PA Work Phone: [facility] Comment on above: Other seborrheic matthew matitis (Primary Dx); Acrochordon; Other specified erythematous conditions; Inflamed seborrheic keratosis Start: 06-27-2024 End: 06-27-20[address] Not Available Start: 06-16-2024 End: 06-16-2024 ambulatory NITISH MARTIN Not Available Start: 06-16-2024 End: 06-16-2024 Office outpatient visit 25 minutes Nitish Martin DO Work Phone: [facility] 230 Comment on above: Hypothyroidism (acqu ired) (CMS/HCC) (Primary Dx); Family history of thyroid cancer; Type 2 diabetes mellitus with foot ulcer (CODE) (CMS/HCC); Non-pressure chronic ulcer of other part of unspecified foot with unspecified severity (CMS/HCC); Type 2 diabetes mellitus with diabetic neuropathy, unspecified (CMS/HCC); Type 2 diabetes mellitus with other diabetic neurological complication (CMS/HCC); Type 2 diabetes mellitus with diabetic polyneuropathy (HCC) (CMS/HCC); Type 2 diabetes mellitus with hyperglycemia (CMS/HCC); Acquired absence of other right toe(s) ([facility]) Start: 06-16-2024 End: 06-16-2024 ambulatory NITISH MARTIN Not Available Start: 06-02-2024 End: 06-02-2024 ambulatory LASHAUN BRADLEY Not Available Start: 03-03-2024 End: 03-03-2024 ambulatory LASHAUN Dimas KIRK Not Available Start: 01-29-2024 End: 01-29-2024 Office outpatient visit 25 minutes [facility] DO Work Phone: [facility] Comment on above: Arteriosclerotic car diovascular disease (ASCVD); History of coronary artery bypass graft; Multiple vessel coronary artery disease; Status post angioplasty; Hypertension, unspecified type; Mixed hyperlipidemia; Other specified diabetes mellitus with other specified complication, with long-term current use of insulin ([facility]); BMI 29.0-29.9,adult; Never smoked tobacco Start: 01-29-2024 End: 01-29-2024 ambulatory [facility] Ambulatory Start: 01-07-2024 End: 01-07-2024 ambulatory EMELYN Quintero EFRAIN Not Available Start: 05-10-2023 End: 05-10-2023 ambulatory Barbara Ellis Other [employer] Other Start: 05-10-2023 Office outpatient vi sit 15 minutes Barbara Ellis [facility] Start: 03-19-2023 End: 03-20-[address] NITISH MARTIN Facility:[facility]1 Start: 03-05-2023 Rx Renewal Nitish Martin Work Phone: [facility] 250 DO Work Phone: Start: 03-05-2023 End: 03-06-[address] NITISH MARTIN Facility:[facility]1 Start: 02-13-2023 End: 02-14-[address] NITISH MARTIN Facility:[facility]1 Start: 01-23-2023 Office outpatient vi sit 15 minutes Nitish Martin Work Phone: [facility] 250 DO Work Phone: Start: 01-23-[address] Nitish Martin Facility: Start: 11-28-2022 End: 11-29-[address] NITISH MARTIN Facility:[facility]1 Start: 11-13-2022 End: 11-14-2022 ambulatory NISHA Wilton IVORY Facility:[facility]1 Start: 10-24-2022 End: 10-25-2022 ambulatory NISHA Núñez [facility] Facility:[facility] Start: 07-18-2022 End: 07-19-2022 ambulatory NISHA Núñez [facility] Facility:[facility] Start: 07-03-2022 End: 07-04-2022 ambulatory NISHA Núñez [facility] Facility:[facility]1 Start: 06-20-2022 End: 06-21-2022 ambulatory NISHA Núñez [facility] Facility:[facility]1 Start: 06-13-2022 Encounter for preprocedural laboratory examination NISHA Núñez [facility] Start: 06-12-2022 End: 06-12-2022 ambulatory NISHA Núñez [facility] Facility:[facility]1 Start: 06-09-2022 End: 06-10-2022 ambulatory NISHA Núñez [facility] Facility:[facility]1 Start: 06-09-2022 End: 06-10-2022 Encounter for preprocedural laboratory examination NISHA Núñez [facility] Facility:[facility]1 Start: 06-07-2022 End: 06-08-2022 ambulatory NISHA Núñez [facility] Facility:H1 Start: 06-06-2022 End: 06-07-2022 ambulatory NISHA Núñez [facility] Facility:H1 Start: 05-30-2022 End: 05-31-2022 ambulatory NISHA Núñez [facility] Facility:H1 Start: 05-02-2022 End: 05-03-2022 ambulatory NISHA Núñez [facility] Facility:H1 Start: 05-01-2022 Office outpatient vi sit 25 minutes Nitish Martin Work Phone: [facility] 250 DO Work Phone: Start: 05-01-[address] Helga Flores Facility: Start: 04-18-2022 End: 04-19-2022 ambulatory NISHA Wilton IVORY Facility:[facility]1 Start: 04-14-2022 End: 04-15-2022 ambulatory NISHA IVORY Facility:[facility]1 Start: 03-30-2022 End: 03-31-[address] NITISH MARTIN Facility:[facility]1 Start: 03-22-2022 End: 03-24-2022 Evaluation and management of inpatient SHAIKH Magui GOMEZ Facility:H1 Start: 03-22-2022 End: 03-23-[address] NITISH MARTIN Facility:[facility]1 Start: 03-14-[address] Nitish Martin Facility:[id number] Start: 03-14-2022 Patient encounter procedure Nitish Martin Work Phone: [facility] DO Work Phone: Start: [facility]-20[facility] Provider: Margaux Christian, Status: Pen, Time: 12:00 PM Nitish Martin Work Phone: [facility] DO Work Phone: Start: 03-14-2022 End: 03-15-2022 ambulatory Margaux Christian Facility:[facility] Start: 03-13-2022 Chart Update Nitish Martin Work Phone: [facility] DO Work Phone: Start: 03-10-2022 Chart Update Nitish Martin Work Phone: [facility] 600 DO Work Phone: Start: 03-10-2022 End: 03-10-2022 ambulatory Nitish Martin Facility:[facility] Start: 12-14-2021 Rx Renewal Nitish Martin Work Phone: [facility] 250 DO Work Phone: Start: 11-22-2021 Office outpatient vi sit 25 minutes Nitish Martin Work Phone: [facility] DO Work Phone: Start: 11-09-2021 [facility] Provider: Martin Queen, Status: Pen, Time: 1:00 PM Nitish Martin Work Phone: [facility] 250 DO Work Phone: Start: 11-08-2021 Chart Update Nitish Martin Work Phone: [facility] DO Work Phone: Start: 10-18-2021 Telephone encounter Nitish luz Work Phone: [facility] 600 DO Work Phone: Start: 10-14-2021 Chart Update [facility] Work Phone: Start: 10-12-2021 Patient encounter procedure Nitish Martin Work Phone: [facility] [address] [place] Work Phone: Start: 10-10-2021 End: 10-10-2021 ambulatory Jaelyn Espinal Other [facility] [employer] Other Start: 10-10-2021 Office outpatient vi sit 15 minutes Jaelyn Espinal [facility] Start: 09-28-2021 AUDIT Nitish Martin Work Phone: [facility] [address] [place] Work Phone: Start: 09-27-2021 Office outpatient vi sit 25 minutes [facility]itish Martin [facility] Work Phone: Start: 04-11-2017 End: 04-12-2017 Ambulatory [id number] MAILE MARTIN [place] Procedures Date Procedure Procedure Detail Performing Clinician Start: 12-01-2024 Hemoglobin glycosylated a1c Lashaun Bradley DO Work Phone: Start: 09-01-2024 Hemoglobin glycosylated a1c Lashaun Bradley DO Work Phone: Start: 06-27-2024 CRYOTHERAPY SKIN LESION Bari Chowdhury PA Work Phone: Start: 06-18-2024 Carcinoembryonic ant igen cea Nitish Martin DO Work Phone: Start: 01-29-2024 Alanine aminotransfe rase [Enzymatic activity/volume] in Serum or Plasma MARTIN QUEEN Start: 01-29-2024 Aspartate aminotrans ferase [Enzymatic activity/volume] in Serum or Plasma MARTIN QUEEN Start: 01-29-2024 HIGH SENSITIVITY CRP BRIAN QUEEN Start: 01-29-2024 Lipid panel MARTIN BUCK Start: 08-31-2023 History of coronary artery bypass grafting History of coronary artery bypass graft Martin Queen DO Work Phone: Start: 03-23-2022 Detachment at Right 2nd Toe, Complete, Open Approach NISHA IVORY Arthroplasty of knee Nitish Martin Work Phone: Cardiac catheterization Nitish Martin Work Phone: History of coronary artery bypass grafting History of coronary artery bypass graft Nitish Martin Work Phone: History of coronary artery bypass grafting History of coronary artery bypass graft Martin Queen DO Work Phone: Operative procedure on foot Nitish Martin Work Phone: Comment on above: toe amputation; Surgical procedure Nitish pro Work Phone: Total colonoscopy Nitish luz Work Phone: Plan of Treatment Date Care Activity Detail Author Start: 12-04-2025 Medicare Annual Wellness (AWV) Medicare Annual Wellness (AWV) [facility] Start: 12-01-2025 Urine screening for protein Diabetes: Urine Protein Screening [facility] Start: 03-27-2025 Screening for malignant neoplasm of colon [facility] Start: 03-27-2025 End: 03-27-2025 Patient encounter procedure 03/27/2025 8:45 AM EDT Office Visit [facility] [address] [facility] [address] [place] [phone] Lashaun Bradley DO [address] [place] [address] [facility] [address] Start: 03-01-2025 Hemoglobin A1c measurement Diabetes: Hemoglobin A1C [facility] Start: 01-28-2025 End: 01-28-2025 Patient encounter procedure 01/28/2025 9:50 AM EDT Office Visit [facility] [address] [place] [id number] Martin Queen, DO [address] [place] [address] [facility] Start: 12-04-2024 End: 12-04-2024 Patient encounter procedure 12/04/2024 11:20 AM EST Office Visit [facility] [address] [place] [phone] Nitish Martin, DO [address] [place] [address] Arrived [facility] [address] Comment on above: Arrived Start: 12-02-2024 Hemoglobin A1c measurement Diabetes: Hemoglobin A1C [facility] Start: 12-01-2024 End: 12-01-2025 Prostate specific Ag [Mass/volume] in Serum or Plasma PSA Lab Routine Screening for prostate cancer Expected: 12/01/2024 (Approximate), Expires: 12/01/2025 [facility] Comment on above: Expected: 12/01/2024 (Approximate), Expi res: 12/01/2025 Start: 12-01-2024 End: 12-01-2024 Patient encounter procedure 12/01/2024 9:15 AM EST Office Visit [facility] [address] [place] [phone] Lashaun Bradley, DO [address] [place] [address] [facility] [address] Start: 09-02-2024 Hemoglobin A1c measurement Diabetes: Hemoglobin A1C [facility] Start: 09-01-2024 End: 09-01-2024 Patient encounter procedure 09/01/2024 9:15 AM EDT Office Visit [facility] [address] [place] [address] Lashaun Bradley, DO [address] [place] [address] [facility] [address] Start: 08-09-2024 Urine screening for protein Diabetes: Urine Protein Screening [facility] Start: 07-06-2024 Influenza vaccination Influenza Vaccine (#1) [facility] Start: 06-27-2024 Glaucoma screening Diabetes: Retinopathy Screening [facility] Start: 06-27-2024 End: 06-27-2024 Patient encounter procedure 06/27/2024 8:50 AM EDT Office Visit [facility] [address] [place] [address] Bari Chowdhury PA [address] [place] [address] [facility] Comment on above: Arrived Start: 01-29-2024 End: 01-28-2025 Alanine aminotransferase [Enzymatic activity/volume] in Serum or Plasma by With P-5'-P Alanine Aminotransferase Lab Routine 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 Multiple vessel coronary artery disease Hypertension, unspecified type Mixed hyperlipidemia Expected: 01/29/2024 (Approximate), Expires: 01/28/2025 [facility] Work Phone: Comment on above: Expected: 01/29/2024 (Approximate), Expi res: 01/28/2025 Start: 01-29-2024 End: 01-28-2025 Aspartate aminotransferase [Enzymatic activity/volume] in Serum or Plasma by With P-5'-P Aspartate Aminotransferase Lab Routine 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 Multiple vessel coronary artery disease Hypertension, unspecified type Mixed hyperlipidemia Expected: 01/29/2024 (Approximate), Expires: 01/28/2025 [facility] Work Phone: Comment on above: Expected: 01/29/2024 (Approximate), Expi res: 01/28/2025 Start: 01-29-2024 End: 01-28-2025 C reactive protein [Mass/volume] in Serum or Plasma by High sensitivity method C-Reactive Protein, High Sensitivity Lab Routine 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 Multiple vessel coronary artery disease Hypertension, unspecified type Mixed hyperlipidemia Expected: 01/29/2024 (Approximate), Expires: 01/28/2025 [facility] Work Phone: Comment on above: Expected: 01/29/2024 (Approximate), Expi res: 01/28/2025 Start: 01-29-2024 End: 01-28-2025 Lipid 1996 panel - Serum or Plasma Lipid Panel Lab Routine 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 Multiple vessel coronary artery disease Hypertension, unspecified type Mixed hyperlipidemia Expected: 01/29/2024 (Approximate), Expires: 01/28/2025 [facility] Service Area Work Phone: Comment on above: Expected: 01/29/2024 (Approximate), Expi res: 01/28/2025 Start: 01-24-2024 FUV, Provider: Martin Queen, Status: Pen, Time: 9:30 AM FUV, Provider: Martin Queen, Status: Pen, Time: 9:30 AM [facility] [employer] 250 DO Work Phone: Start: 01-23-2023 Medicare Annual Wellness (AWV) Medicare Annual Wellness (AWV) [facility] Start: 11-16-2022 FUV, Provider: Martin Queen, Status: Pen, Time: 10:20 AM FUV, Provider: Martin Queen, Status: Pen, Time: 10:20 AM [facility] Work Phone: Start: 08-25-2022 Pneumococcal Vaccine: 65+ Years (2 - PCV) Pneumococcal Vaccine: 65+ Years (2 - PCV) [facility] Start: 08-25-2022 Pneumococcal Vaccine: 65+ Years (2 of 2 - PCV) Pneumococcal Vaccine: 65+ Years (2 of 2 - PCV) [facility] Start: 05-29-2022 FUV, Provider: Helga Flores, Status: Pen, Time: 10:15 AM FUV, Provider: Helga Flores, Status: Pen, Time: 10:15 AM -[facility] 250 DO Work Phone: Start: 05-01-2022 FUV, Provider: Helga Flores, Status: Pen, Time: 9:30 AM FUV, Provider: Helga Flores, Status: Pen, Time: 9:30 AM -[facility] 600 DO Work Phone: Start: 03-21-2022 FUV, Provider: Helga Flores, Status: Pen, Time: 9:15 AM FUV, Provider: Helga Flores, Status: Pen, Time: 9:15 AM [facility] 250 DO Work Phone: Start: 03-14-2022 SURGNONUH, Provider: Margaux Christian, Status: Pen, Time: 12:00 PM SURGNONUH, Provider: Margaux Christian, Status: Pen, Time: 12:00 PM -[facility] 600 DO Work Phone: Start: 11-09-2021 SURGNONUH, Provider: Martin Queen, Status: Pen, Time: 1:00 PM SURGNONUH, Provider: Martin Queen, Status: Pen, Time: 1:00 PM -[facility] 600 DO Work Phone: Start: 10-12-2021 STRESS NUC, Provider: [place] HHVI NUCLEAR 01,[id number], Status: Pen, Time: 7:30 AM STRESS NUC, Provider: [place] [facility]VI NUCLEAR 01,[id number], Status: Pen, Time: 7:30 AM -[facility] 250 DO Work Phone: Start: 02-07-2006 Zoster Vaccines (1 of 2) Zoster Vaccines (1 of 2) [facility] Start: 02-07-1978 DTaP/Tdap/Td Vaccines (1 - Tdap) DTaP/Tdap/Td Vaccines (1 - Tdap) [facility] Start: 02-07-1975 Urine screening for protein Diabetes: Urine Protein Screening [facility] Start: 02-07-1974 Hepatitis C screening Hepatitis C Screening [facility] Start: 02-07-1966 Diabetic foot examination Diabetes: Foot Exam [facility] Start: 02-07-1966 Glaucoma screening Diabetes: Retinopathy Screening [facility] Start: 1956 Creatinine measurement Creatinine Level [facility] Start: 1956 Echocardiography Echocardiogram [facility] Start: 1956 Hemoglobin A1c measurement Diabetes: Hemoglobin A1C [facility] Start: 1956 Lipid panel Lipid Panel [facility] Start: 1956 Medicare Annual Wellness Visit Medicare Annual Wellness Visit (AWV) [facility] Start: 1956 Potassium measurement Potassium Level [facility] Start: 1956 Screening for malignant neoplasm of colon [facility] Start: 1956 Thyroid stimulating hormone measurement TSH Level [facility] CBC W Auto Different ial panel - Blood CBC and differential Lab Routine Preventative health care Ordered: 12/01/2024 [facility] Comment on above: Ordered: 12/01/2024 Comprehensive metabo lic 2000 panel - Serum or Plasma Comprehensive metabolic panel Lab Routine Preventative health care Ordered: 12/01/2024 [facility] Work Phone: Comment on above: Ordered: 12/01/2024 Lipid 1996 panel - S mariely or Plasma Lipid panel Lab Routine Preventative health care Ordered: 12/01/2024 [facility] Comment on above: Ordered: 12/01/2024 Microalbumin/Creatin ine panel in random Urine Microalbumin / creatinine urine ratio Lab Routine Type 2 diabetes mellitus with other circulatory complications (CMS/HCC) Ordered: 12/01/2024 [facility] Comment on above: Ordered: 12/01/2024 Thyrotropin [Units/volume] in Serum or Plasma TSH Lab Routine Preventative health care Ordered: 12/01/2024 [facility] Comment on above: Ordered: 12/01/2024 Immunizations Immunization Date Immunization Notes Care Provider Ele mcneal 12-04-2024 Pneumococcal Conjuga te PCV 20 Joyce Ramsey NP Work Phone: [facility] 08-04-2024 influenza, high dose seasonal, preservative-free Lashaun Bradley DO Work Phone: [facility] 08-21-2023 Influenza, Seasonal, Quadrivalent, Adjuvanted [facility] Work Phone: [facility] 08-21-2023 influenza virus vacc ine, unspecified formulation [facility] Work Phone: [facility] 08-09-2023 RSV, recombinant, protein subunit RSVpreF, adjuvant reconstitu, 120mcg/0.5mL, PF (Arexvy) [facility] Work Phone: [facility] 08-02-2022 Fluzone High-Dose Quadrivalent 0.7 ML Intramuscular Suspension Prefilled Syringe Nitish Martin Work Phone: [facility] 250 DO Work Phone: 08-02-2022 Pfizer COVID-19 Vac Bivalent 30 MCG/0.3ML Intramuscular Suspension Nitish Martin Work Phone: [facility] 09-02-2021 Pfizer-BioNTech COVI D-19 Vacc 30 MCG/0.3ML Intramuscular Suspension Nitish Martin Work Phone: [facility] 08-25-2021 Fluad Quadrivalent 0 .5 ML Intramuscular Prefilled Syringe Nitish Martin Work Phone: [facility] 250 DO Work Phone: 08-25-2021 pneumococcal polysaccharide vaccine, 23 valent Nitish Martin Work Phone: [facility] 02-06-2021 Pfizer-BioNTech COVI D-19 Vacc 30 MCG/0.3ML Intramuscular Suspension Nitish Martin Work Phone: [facility] 01-16-2021 Pfizer-BioNTech COVI D-19 Vacc 30 MCG/0.3ML Intramuscular Suspension Nitish Martin Work Phone: [facility] 11-22-2020 zoster vaccine recombinant Nitish Martin Work Phone: [facility] 250 DO Work Phone: 01-18-2021 zoster vaccine, unspecified formulation Martin Queen DO Work Phone: [facility] Work Phone: 09-09-2020 influenza, high dose seasonal, preservative-free Nitish Martin Work Phone: [facility] 250 DO Work Phone: 09-05-2020 influenza virus vacc ine, unspecified formulation Nitish Martin Work Phone: [facility] 250 DO Work Phone: 09-05-2020 influenza, seasonal, injectable Bari Chowdhury PA Work Phone: [facility] 08-29-2020 influenza, injectabl e, quadrivalent, preservative free Nitish Martin Work Phone: [facility] 250 DO Work Phone: 08-29-2020 zoster vaccine recombinant Nitish Martin Work Phone: [facility] 250 DO Work Phone: 08-29-2020 zoster vaccine, unspecified formulation Martin Queen DO Work Phone: [facility] Work Phone: 09-07-2019 influenza virus vacc ine, unspecified formulation Nitish Martin Work Phone: [facility] 250 DO Work Phone: 08-26-2019 Influenza, injectabl e, Madin Caitie Canine Kidney, preservative free, quadrivalent Nitish Martin Work Phone: [facility] 250 DO Work Phone: 11-05-2017 pneumococcal polysaccharide vaccine, 23 valent Nitish Martin Work Phone: [facility] 09-18-2017 influenza, injectabl e, quadrivalent, preservative free Nitish Martin Work Phone: [facility] 250 DO Work Phone: 08-06-2017 influenza, high dose seasonal, preservative-free Nitish Martin Work Phone: [facility] 250 DO Work Phone: 08-05-2016 influenza virus vacc ine, unspecified formulation Nitish Martin Work Phone: [facility] 250 DO Work Phone: 07-24-2011 influenza, seasonal, injectable, preservative free Nitish Martin Work Phone: [facility] 250 DO Work Phone: 11-05-2010 influenza virus vacc ine, unspecified formulation Nitish Martin Work Phone: [facility] 250 DO Work Phone: 08-05-2010 pneumococcal polysaccharide vaccine, 23 valent Nitish Martin Work Phone: [place] [address] DO Work Phone: 08-13-2008 influenza, seasonal, injectable, preservative free Nitish Martin Work Phone: [place] [address] DO Work Phone: influenza virus vacc ine, unspecified formulation Nitish Martin Work Phone: [place] [address] DO Work Phone: Comment on above: Sep 2010 Payers Date Payer Category Payer Self-pay 2021 Medicare [id number] 2021 Private Health Insurance [employer] [id number] 2021 Unknown 2017 Unknown [id number] 1959 Medicare [id number] 1959 Unknown [id number] 2.16.840.1.222421.19 1956 Unknown [id number] 2.16.840.1.962220.3.579.2. 356 1956 Unknown [id number] 2.16.840.1.896391.3.579.2. 356 1956 Unknown [id number] 2.16.840.1.913672.3.579.2. 356 1956 Unknown [id number] 2.16.840.1.307441.3.579.2. 593 1956 Unknown [id number] 2.16.840.1.308163.3.579.2. 593 1956 Unknown [id number] 2.16.840.1.227564.3.579.2. 593 1956 Unknown [id number] 2.16.840.1.126243.3.579.2. 593 1956 Unknown [id number] 2.16.840.1.234276.3.579.2. 593 1956 Unknown [id number] 2.16.840.1.254655.3.579.2. 593 1956 Unknown [id number] 2.16.840.1.993629.3.579.2. 593 1956 Unknown [id number] 2.16.840.1.460247.3.579.2. 593 1956 Unknown [id number] 2.16.840.1.319336.3.579.2. 593 1956 Unknown [id number] 2.16.840.1.736928.3.579.2. 593 1956 Unknown [id number] 2.16.840.1.882703.3.579.2. 593 1956 Unknown [id number] 2.16.840.1.428620.3.579.2. 593 1956 Unknown [id number] 2.16.840.1.707494.3.579.2. 593 1956 Unknown [id number] 2.16.840.1.268478.3.579.2. 593 1956 Unknown [id number] 2.16.840.1.445256.3.579.2. 593 1956 Unknown [id number] 2.16.840.1.838701.3.579.2. 593 1956 Unknown [id number] 2.16.840.1.150094.3.579.2. 593 1956 Unknown [id number] 2.16.840.1.998106.3.579.2. 593 1956 Unknown [id number] 2.16.840.1.009929.3.579.2. 593 1956 Unknown [id number] 2.16.840.1.770156.3.579.2. 593 1956 Unknown [id number] 2.16.840.1.755081.3.579.2. 1244 1956 Unknown [id number] 2.16.840.1.092265.3.579.2. 1259 1956 Unknown [id number] 2.16.840.1.355169.3.579.2. 1259 1956 Unknown [id number] 2.16.840.1.950556.3.579.2. 1259 1956 Unknown [id number] 2.16.840.1.911682.3.579.2. 1259 1956 Unknown [id number] 2.16.840.1.309431.3.579.2. 9 1956 Unknown [id number] 2.16.840.1.325114.3.579.2. 1259 1956 Unknown [id number] 2.16.840.1.656613.3.579.2. 9 1956 Unknown [id number] 2.16.840.1.687753.3.579.2. 1259 1956 Unknown [id number] 2.16.840.1.849199.3.579.2. 9 1956 Unknown [id number] 2.16.840.1.997965.3.579.2. 1259 Unknown [id number] 2.16.840.1.474545.3.579.2. 531 Unknown [id number] 2.16.840.1.970289.3.579.2. 531 Social History Date Type Detail Facility Start: 01-29-2024 End: 12-01-2024 Caffeine use Caffeine use [facility] 250 DO Work Phone: Comment on above: occassional; Start: 01-29-2024 End: 12-01-2024 Sex Assigned At [facility] [employer] Other Start: 01-29-2024 End: 06-16-2024 Tobacco smoking status NHIS Never smoked tobacco [facility] Start: 01-29-2024 End: 06-16-2024 Tobacco use and exposure Smokeless tobacco non-user [facility] Work Phone: Start: 01-29-2024 End: 12-01-2024 Alcohol intake Lifetime non-drinker (finding) [facility] Work Phone: Start: 1955 [facility] Work Phone: Start: 01-19-2024 End: 01-29-2024 Exposure to SARS-CoV-2 (event) Not sure [facility] How often to you hav e a drink containing alcohol? Never [facility] How many standard drinks containing alcohol do you have on a typical day? Patient does not drink [facility] NEGATED: Highlighted rowStart: PAULINO History of tobacco use Passive smoker [facility] Medical Equipment Procedure Code Equipment Code Equipment Origin al Text Equipment Identifier Dates Fsbs daily [id number] Start: 03-03-2024 Fsbs daily [id number] Start: 03-03-2024 Clinical Notes 10-08-2017 to 12-01-2024 Lashaun Bradley, - 12/01/2024 9:35 AM Trini Bradley, - 12/01/2024 9:15 AM Trini Bradley, DO - 09/01/2024 12:48 PM Erika Bradley DO - 09/01/2024 9:15 AM EDT Note Date & Type Note Facility 12-01-2024 History of Presen t illness Narrative Associated Problem(s): Type 2 diabetes mellitus with other circulatory complications (CMS/[facility]) During the appointment today all pertinent labs, imaging, health maintenance, and glucose readings were reviewed. Encouraged to check blood glucose throughout the day with some fasting and some PP readings. They are to bring their glucose meter/cgm in to all appointments. All of the patients questions, treatment options, and current care plan and goals were discussed. A copy of this along with pertinent instructions were given to the patient at the end of the appointment. The patient voices understanding of all of this and is to call in between appointments if they have any problems or questions. Janice Pandya is making improvements and encouraged on this. , Will stay on current medications. , Instructions given today include: Dietary education Images from the original note were not included. Janice Pandya is a 69 y.o. male presents with chief complaint of Diabetes HPI: Diabetes Mellitus Follow-up: Janice Pandya is here for follow-up evaluation of diabetes mellitus. The initial diagnosis of diabetes was made in 2000 Diabetes complications: peripheral neuropathy and cardiovascular disease He has been checking his blood glucose once a day in the morning. Last A1c: 8.6 on 09/01/24 Last eye exam: 06/27/2022- 2023 Dr Villegas Current concerns include: Forgot his meter at home. Lost 7 lbs since his last visit. Ozepmic was increased at his last visit. Admits to decreased appetite. Bg levels: improving 130- 160 in the morning Diet: trying to limit carbs Drinks: water, gatorade zero, 2 cups coffee with splenda, 1 can diet pop Exercise: None recently Hypoglycemia: none He states he is due for labs. Not sure if you want to order these or Dr Martin SUBJECTIVE: PROBLEM LIST SOCIAL ALLERGIES: Patient Active Problem List Diagnosis Type 2 diabetes mellitus with other circulatory complications ([facility]) Anemia, unspecified Atherosclerotic heart disease of [place] coronary artery without angina pectoris ([facility]) Gastro-esophageal reflux disease without esophagitis Osteoarthritis of knee, unspecified Stage 3a chronic kidney disease (CKD) ([facility]) Hypertension ([facility]) Hyperlipidemia ([facility]) History of coronary artery bypass graft Type 2 diabetes mellitus with stage 3a chronic kidney disease, without long-term current use of insulin ([facility]) ([facility]) Social History Tobacco Use Smoking status: Never Passive exposure: Never Smokeless tobacco: Never Substance Use Topics Alcohol use: Never Drug use: Never No Known Allergies Synopsis SmartLink 12/01/2024 09:20 Antidiabetic medications Dapagliflozin Propanediol 5 mg Daily PO metFORMIN HCl 500 mg BID PO Semaglutide 2 mg Weekly SC (8 MG/3ML SOPN) Labs MHPT A1C 7.7 Outpatient prescription Medication marked as long-term The ASCVD Risk score (Andreia CHAVEZ, et al., 2019) failed to calculate for the following reasons: Risk score cannot be calculated because patient has a medical history suggesting prior/existing ASCVD REVIEW OF SYMPTOMS: Review of Systems Constitutional: Negative for appetite change, fatigue and unexpected weight change. Eyes: Negative for visual disturbance. Respiratory: Negative for cough, shortness of breath and wheezing. Cardiovascular: Negative for chest pain, palpitations and leg swelling. Neurological: Negative for numbness. Endocrine: Negative for polydipsia, polyphagia and polyuria. OBJECTIVE: 12/01/2024 9:09 AM 09/01/2024 9:14 AM 06/16/2024 3:30 PM Vitals BMI 28.5 kg/m2 29.5 kg/m2 29.42 kg/m2 Systolic 140 124 122 Diastolic 82 72 80 Heart Rate 83 69 80 Temp 98.3 F 96.6 F 98.3 F Height (in) 6' 1 6' 1 6' 1 Weight (lb) 216 223.6 223 Visit Report Report Report Report Physical Exam Constitutional: General: He is not in acute distress. Appearance: Normal appearance. Cardiovascular: Rate and Rhythm: Normal rate and regular rhythm. Heart sounds: No murmur heard. No friction rub. No gallop. Pulmonary: Breath sounds: Normal breath sounds. No wheezing, rhonchi or rales. Musculoskeletal: General: No swelling. Neurological: Mental Status: He is alert. ASSESSMENT AND PLAN: Problem List Items Addressed This Visit Type 2 diabetes mellitus with other circulatory complications (CMS/HCC) - Primary During the appointment today all pertinent labs, imaging, health maintenance, and glucose readings were reviewed. Encouraged to check blood glucose throughout the day with some fasting and some PP readings. They are to bring their glucose meter/cgm in to all appointments. All of the patients questions, treatment options, and current care plan and goals were discussed. A copy of this along with pertinent instructions were given to the patient at the end of the appointment. The patient voices understanding of all of this and is to call in between appointments if they have any problems or questions. Janice Pandya is making improvements and encouraged on this. , Will stay on current medications. , Instructions given today include: Dietary education Relevant Orders POCT glycosylated hemoglobin (Hb A1C) docked device (Completed) Microalbumin / creatinine urine ratio Type 2 diabetes mellitus with stage 3a chronic kidney disease, without long-term current use of insulin (HCC) (CMS/HCC) Other Visit Diagnoses Preventative health care Relevant Orders Comprehensive metabolic panel Lipid panel TSH CBC and differential Screening for prostate cancer Relevant Orders PSA Follow up in about 4 months (around 03/31/2025) for Recheck. Patient's Medications New Prescriptions No medications on file Previous Medications ASPIRIN 81 MG EC TABLET Take 81 mg by mouth in the morning. ATORVASTATIN (LIPITOR) 20 MG TABLET TAKE 1 TABLET BY MOUTH EVERY DAY IN THE EVENING FOR 90 DAYS BLOOD GLUCOSE MONITORING SUPPL (L[employer] EnginesIO FLEX SYSTEM) W/DEVICE KIT CARVEDILOL (COREG) 6.25 MG TABLET Take 6.25 mg by mouth in the morning and 6.25 mg in the evening. Take with meals. CICLOPIROX (LOPROX) 0.77 % CREAM Apply thin layer to affected area once a day, 30 day supply CICLOPIROX 1 % SHAMPOO Lather on wet hair, leave on 5 min, rinse 2-3 x week, 30 day supply CLOPIDOGREL (PLAVIX) 75 MG TABLET Take 75 mg by mouth in the morning. DAPAGLIFLOZIN (FARXIGA) 5 MG Take 1 tablet (5 mg) by mouth Daily FENOFIBRATE (TRICOR) 145 MG TABLET Take 145 mg by mouth in the morning. GLUCOSE BLOOD ([employer] TherapeuticsTOUCH VERIO) TEST STRIP Fsbs daily ISOSORBIDE MONONITRATE ER (IMDUR) 60 MG 24 HR TABLET Take 60 mg by mouth in the morning. Do not crush or chew. . LEVOTHYROXINE (SYNTHROID, LEVOXYL) 200 MCG TABLET TAKE 1 TABLET BY MOUTH EVERY DAY METFORMIN XR (GLUCOPHAGE-XR) 500 MG 24 HR TABLET TAKE 1 TABLET BY MOUTH TWICE A DAY NITROGLYCERIN (NITROSTAT) 0.[address] 0.4 mg under the tongue every 5 (five) minutes if needed for chest pain. ONETOUCH DELICA [facility]ANCETS [facility]G [facility] F[facility] daily SEMAGLUTIDE, 2 MG/DOSE, (OZEMPIC, 2 MG/DOSE,) 8 MG/3ML SOLUTION PEN-INJECTOR Inject 2 mg under the skin 1 (one) time per week Modified Medications No medications on file Discontinued Medications No medications on file I have reviewed and reconciled the history and medication list with the patient today. documented in this encounter [facility] 09-01-2024 History of Presen t illness Narrative Associated Problem(s): Type 2 diabetes mellitus with other circulatory complications (CMS/[facility]) During the appointment today all pertinent labs, imaging, health maintenance, and glucose readings were reviewed. Encouraged to check blood glucose throughout the day with some fasting and some PP readings. They are to bring their glucose meter/cgm in to all appointments. All of the patients questions, treatment options, and current care plan and goals were discussed. A copy of this along with pertinent instructions were given to the patient at the end of the appointment. The patient voices understanding of all of this and is to call in between appointments if they have any problems or questions. Jnaice Pandya blood sugars are worsening. , Discussed dietary changes at length. Encouraged to limit simple carbs and focus more on healthy protein/fat with all meals and snacks. They should also avoid any sugary drinks. , Instructions given today include: Dietary education. Will increase ozempic. He is going to also work on improving his diet. Images from the original note were not included. Janice Pandya is a 69 y.o. male presents with chief complaint of Diabetes HPI: Diabetes Mellitus Follow-up: Janice Pandya is here for follow-up evaluation of diabetes mellitus. The initial diagnosis of diabetes was made in 2000 Diabetes complications: peripheral neuropathy and cardiovascular disease He has been checking his blood glucose once a day in the morning. Bg running 150-200 in the am. Hasn't been great with his diet lately. Last A1c: 7.9 (06/02/24) Last eye exam: 06/27/2022- 2023 Dr Villegas Current concerns include: States his bg levels are similar to last visit. Diet: trying to limit carbs Drinks: water, gatorade zero, 2 cups coffee with splenda, 1 can diet pop Exercise: None recently Hypoglycemia: None Diabetes Pertinent negatives for diabetes include no chest pain, no fatigue, no polydipsia, no polyphagia and no polyuria. SUBJECTIVE: PROBLEM LIST SOCIAL ALLERGIES: Patient Active Problem List Diagnosis Type 2 diabetes mellitus with other circulatory complications (CMS/HCC) Anemia, unspecified Atherosclerotic heart disease of [place] coronary artery without angina pectoris (CMS/HCC) Gastro-esophageal reflux disease without esophagitis Osteoarthritis of knee, unspecified Stage 3a chronic kidney disease (CKD) (CMS/HCC) Hypertension (CMS/HCC) Hyperlipidemia (CMS/HCC) History of coronary artery bypass graft Type 2 diabetes mellitus with stage 3a chronic kidney disease, without long-term current use of insulin (HCC) (CMS/[facility]) Social History Tobacco Use Smoking status: Never Passive exposure: Never Smokeless tobacco: Never Substance Use Topics Alcohol use: Never Drug use: Never No Known Allergies Synopsis [facility] 09/01/2024 Antidiabetic medications Dapagliflozin Propanediol 5 mg Daily PO metFORMIN HCl 500 mg BID PO Semaglutide 1 mg Weekly SC -Discontinued Semaglutide 2 mg Weekly SC (8 MG/3ML SOPN) Labs MHPT A1C 8.6 Outpatient prescription Medication marked as long-term REVIEW OF SYMPTOMS: Review of Systems Constitutional: Negative for appetite change, fatigue and unexpected weight change. Eyes: Negative for visual disturbance. Respiratory: Negative for cough, shortness of breath and wheezing. Cardiovascular: Negative for chest pain, palpitations and leg swelling. Neurological: Negative for numbness. Endocrine: Negative for polydipsia, polyphagia and polyuria. OBJECTIVE: 09/01/2024 9:14 AM 06/16/2024 3:30 PM 06/02/2024 9:15 AM Vitals BMI 29.5 kg/m2 29.42 kg/m2 29.42 kg/m2 Systolic 124 122 126 Diastolic 72 80 68 Heart Rate 69 80 88 Temp 96.6 F 98.3 F 98.3 F Height (in) 6' 1 6' 1 6' 1 Weight (lb) 223.6 223 223 Visit Report Report Report Report Physical Exam Constitutional: General: He is not in acute distress. Appearance: Normal appearance. Cardiovascular: Rate and Rhythm: Normal rate and regular rhythm. Heart sounds: No murmur heard. No friction rub. No gallop. Pulmonary: Breath sounds: Normal breath sounds. No wheezing, rhonchi or rales. Musculoskeletal: General: No swelling. Neurological: Mental Status: He is alert. ASSESSMENT AND PLAN: Problem List Items Addressed This Visit Type 2 diabetes mellitus with other circulatory complications (CMS/HCC) During the appointment today all pertinent labs, imaging, health maintenance, and glucose readings were reviewed. Encouraged to check blood glucose throughout the day with some fasting and some PP readings. They are to bring their glucose meter/cgm in to all appointments. All of the patients questions, treatment options, and current care plan and goals were discussed. A copy of this along with pertinent instructions were given to the patient at the end of the appointment. The patient voices understanding of all of this and is to call in between appointments if they have any problems or questions. Janice Pandya blood sugars are worsening. , Discussed dietary changes at length. Encouraged to limit simple carbs and focus more on healthy protein/fat with all meals and snacks. They should also avoid any sugary drinks. , Instructions given today include: Dietary education. Will increase ozempic. He is going to also work on improving his diet. Relevant Medications Semaglutide, 2 MG/DOSE, (Ozempic, 2 MG/DOSE,) 8 MG/3ML solution pen-injector Other Relevant Orders POCT glycosylated hemoglobin (Hb A1C) docked device (Completed) Follow up in about 3 months (around 12/02/2024) for Recheck. Patient's Medications New Prescriptions SEMAGLUTIDE, 2 MG/DOSE, (OZEMPIC, 2 MG/DOSE,) 8 MG/3ML SOLUTION PEN-INJECTOR Inject 2 mg under the skin 1 (one) time per week Previous Medications ASPIRIN 81 MG EC TABLET Take 81 mg by mouth in the morning. ATORVASTATIN (LIPITOR) 20 MG TABLET TAKE 1 TABLET BY MOUTH EVERY DAY IN THE EVENING FOR 90 DAYS BLOOD GLUCOSE MONITORING SUPPL ([employer] VERIO FLEX SYSTEM) W/DEVICE KIT CARVEDILOL (COREG) 6.25 MG TABLET Take 6.25 mg by mouth in the morning and 6.25 mg in the evening. Take with meals. CICLOPIROX (LOPROX) 0.77 % CREAM Apply thin layer to affected area once a day, 30 day supply CICLOPIROX 1 % SHAMPOO Lather on wet hair, leave on 5 min, rinse 2-3 x week, 30 day supply CLOPIDOGREL (PLAVIX) 75 MG TABLET Take 75 mg by mouth in the morning. DAPAGLIFLOZIN (FARXIGA) 5 MG Take 1 tablet (5 mg) by mouth Daily FENOFIBRATE (TRICOR) 145 MG TABLET Take 145 mg by mouth in the morning. GLUCOSE BLOOD ([employer] Services[employer]CH VERIO) TEST STRIP Fsbs daily ISOSORBIDE MONONITRATE ER (IMDUR) 60 MG 24 HR TABLET Take 60 mg by mouth in the morning. Do not crush or chew. . LEVOTHYROXINE (SYNTHROID, LEVOXYL) 200 MCG TABLET TAKE 1 TABLET BY MOUTH EVERY DAY METFORMIN XR (GLUCOPHAGE-XR) 500 MG 24 HR TABLET TAKE 1 TABLET BY MOUTH TWICE A DAY NITROGLYCERIN (NITROSTAT) 0.[address] 0.4 mg under the tongue every 5 (five) minutes if needed for chest pain. [employer] TherapeuticsTOUCH DELICA LANCETS 33G [facility] Fsbs daily Modified Medications No medications on file Discontinued Medications SEMAGLUTIDE (OZEMPIC, 1 MG/DOSE,) 4 MG/3ML SOLUTION PEN-INJECTOR Inject 1 mg under the skin 1 (one) time per week I have reviewed and reconciled the history and medication list with the patient today. documented in this encounter [facility] 08-29-2024 Telephone encounter Note LVM appointment reminder [facility] 08-29-2024 Miscellaneous Notes LVM appointment reminder documented in this encounter [facility] 06-27-2024 History of Presen t illness Narrative Follow up Diagnosis: Seborrheic Dermatitis Location: scalp, face Last visit: 12/12/2018 Status: flared, ran out of medication few years ago Current treatment: Fluocinonide 0.05% solution, Hydrocortisone 2.5% cream- needs refills Previous patient of Jaimie Avina NP Lesions: Location: chest, left underarm Duration: months Quality: itchy Associated symptoms: raised, rough Treatments: none All pertinent medical history, medications, and allergies were reviewed. General Exam: alert , oriented to person, place, and time , normal affect, well appearing Unaccompanied A focused exam completed based on patient reported problems, see below: 1. Other seborrheic dermatitis Head - Anterior (Face), Scalp Erythema and scale. Flaring today Discussed that seborrheic dermatitis is a chronic condition that can be controlled but not cured. Start Ciclopirox shampoo 2-3 times weekly, leave on 5-10 min, then rinse. Start Ciclopirox cream daily on the face as needed for flares. May hold cream when clear. Continue shampoo as maintenance treatment. Notify office if flaring despite treatment. Related Medications Ciclopirox 1 % shampoo Lather on wet hair, leave on 5 min, rinse 2-3 x week, 30 day supply ciclopirox (Loprox) 0.77 % cream Apply thin layer to affected area once a day, 30 day supply 2. Acrochordon Left Axilla Fleshy, skin-colored sessile and pedunculated papules with surrounding erythema The patient was informed that skin tags are benign growths usually found around the neck or in the axillae. Due to symptoms/inflammation, removal performed today, see procedure note. Procedure: Skin tag removal Informed consent: Discussed risks (permanent scarring, infection, pain, bleeding, bruising, redness, and recurrence of the lesion) and benefits of the procedure, as well as the alternatives. He is aware that skin tags are benign lesions, and their removal is often not considered medically necessary. Informed consent was obtained and waiver was signed if needed. Anesthesia: 1% lidocaine with epinephrine and a 1:10 solution of 8.4% sodium bicarbonate, Quantity: 1.0 cc The area was prepared and draped in a standard fashion. Snip removal was performed. Bleeding was controlled with electrocautery A sterile dressing was applied. The patient tolerated procedure well. The patient was instructed on post-op care. Number of lesions removed: 1 3. Other specified erythematous conditions 4. Inflamed seborrheic keratosis (2) Chest - Medial (Center), Left Axilla [address] and brown stuck on verrucous scaly papule with surrounding erythema The patient was informed that symptomatic seborrheic keratoses are benign growths that become inflamed, itchy, tender, traumatized, caught on clothing, or bleed. Symptomatic lesions can be treated with cryotherapy or curretage. Thicker lesions treated with cryotherapy may require more than one treatment. The patient was instructed to notify the office if abnormal redness or tenderness develops at the treatment site. Cryotherapy today, see procedure note. Diagnosis: Inflamed seborrheic keratosis Indication: Inflamed Consent: Verbal consent was obtained and risks were discussed, including, but not limited to risks of scarring, darker or car rider pigmentary changes, recurrence, incomplete removal and infection. Method: Liquid nitrogen was used to treat the lesion(s) with two 5-10 second freeze-thaw cycles Number of lesions treated: 2 Post-procedure instructions: Instructions were given orally and in writing. The office will be contacted if the lesion fails to resolve despite treatment, or if a side effect develops such as abnormal crusting, scabbing, redness or tenderness Cryotherapy, skin lesion - Chest - Medial (Center), Left Axilla Next Visit: 1 year documented in this encounter [facility] 06-16-2024 History of Presen t illness Narrative Images from the original note were not included. Janice Pandya is a 69 y.o. male presents with chief complaint of No chief complaint on file. HPI: HPI AUNT HAD THYROID CANCER. Brother just dx. Was told to have thyroid tested. History of Present Illness The patient presents for evaluation of thyroid cancer. She is diagnosed with papillary thyroid cancer. FAMILY HISTORY Her aunt of thyroid cancer. Her brother has a big mass in his throat. SUBJECTIVE: MEDICATIONS: ALLERGIES Current Outpatient Medications Medication Instructions aspirin 81 mg, Daily atorvastatin (Lipitor) 20 MG tablet TAKE 1 TABLET BY MOUTH EVERY DAY IN THE EVENING FOR 90 DAYS Blood Glucose Monitoring Suppl (Nanomech Verio Flex System) w/Device kit No dose, route, or frequency recorded. carvedilol (COREG) 6.25 mg, 2 times daily with meals ciclopirox (Loprox) 0.77 % cream Apply thin layer to affected area once a day, 30 day supply Ciclopirox 1 % shampoo Lather on wet hair, leave on 5 min, rinse 2-3 x week, 30 day supply clopidogrel (PLAVIX) 75 mg, Daily dapagliflozin (FARXIGA) 5 mg, Oral, Daily fenofibrate (TRICOR) 145 mg, Daily glucose blood ([employer] Verio) test strip Fsbs daily isosorbide mononitrate ER (IMDUR) 60 mg, Daily levothyroxine (SYNTHROID, LEVOXYL) 200 mcg, Oral, Daily metFORMIN XR (GLUCOPHAGE-XR) 500 mg, Oral, 2 times daily nitroglycerin (NITROSTAT) 0.4 mg, Every 5 min PRN Nanomech Delica Lancets 33G misc Fsbs daily Ozempic (2 MG/DOSE) 2 mg, Subcutaneous, Weekly No Known Allergies Depression: Not at risk (09/01/2024) PHQ-2 PHQ-2 Score: 0 REVIEW OF SYMPTOMS: Review of Systems OBJECTIVE: BP 122/80 Pulse 80 Temp 98.3 F Ht 6' 1 Wt 223 lb BMI 29.42 kg/m Recent Results (from the past 6 weeks) POCT glycosylated hemoglobin (Hb A1C) docked device Collection Time: 09/01/24 9:23 AM Result Value Ref Range Hemoglobin A1C 8.6 Results GENERAL EXAM: Physical Exam Physical Exam ASSESSMENT AND PLAN: Assessment/Plan Diagnoses and all orders for this visit: Hypothyroidism (acquired) (CMS/HCC) - Calcitonin; Future - CEA; Future - US thyroid; Future Family history of thyroid cancer - Calcitonin; Future - CEA; Future - US thyroid; Future Type 2 diabetes mellitus with foot ulcer (CODE) (CMS/HCC) Non-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 Family hx Papillary thyroid cancer. Noted some weight loss. Calcitonin and Carcinoma Embryonic Antigen (CEA) tests have been ordered. An ultrasound has been scheduled. No follow-ups on file. documented in this encounter [facility] 01-29-2024 History of Presen t illness Narrative Subjective Janice Pandya is a 68 y.o. male Chief Complaint Annual Exam 68-year-old gentleman returns for annual follow-up he is doing well he denies any cardiovascular events, symptoms, nitrate usage or hospitalizations. He has a history of known ASHD, last years catheterization from March [address] Christian is reviewed; revealing: Occluded LAD, patent WALL to the LAD with good runoff and good caliber distally giving collaterals to the occluded right coronary, occluded right coronary, circumflex with a stent in the proximal and mid segment with good result. The first marginal branch is small with a 70% stenosis and there are no other grafts noted. Patient has mild LV dysfunction with ejection fraction of 45%. Patient's underlying comorbidities are noted for diabetes mellitus, obesity, mild ischemic cardiomyopathy with ejection fraction 45% the above-mentioned CABG and stenting. Most recently his diabetes is being reviewed by his primary care physician and undergoing advance therapeutic intervention because of weight gain etc. Recommendations, continue with current therapies obtain lipid and high-sensitivity profiles and follow-up in 1 year Review of Systems All other systems reviewed and are negative. Vitals: 01/29/24 1436 BP: 138/70 BP Location: Right arm Patient Position: Sitting Pulse: 86 Weight: 102 kg (225 lb) Height: 1.854 m (6' 1 ) Objective Physical Exam Constitutional: Appearance: Normal appearance. HENT: Nose: Nose normal. Neck: Vascular: No carotid bruit. Cardiovascular: Rate and Rhythm: Normal rate. Pulses: Normal pulses. Heart sounds: Normal heart sounds. Pulmonary: Effort: Pulmonary effort is normal. Abdominal: General: Bowel sounds are normal. Palpations: Abdomen is soft. Musculoskeletal: General: Normal range of motion. Cervical back: Normal range of motion. Right lower leg: No edema. Left lower leg: No edema. Skin: General: Skin is warm and dry. Neurological: General: No focal deficit present. Mental Status: He is alert. Psychiatric: Mood and Affect: Mood normal. Behavior: Behavior normal. Thought Content: Thought content normal. Judgment: Judgment normal. Allergies Neris inhibitors Current Medications Current Outpatient Medications: aspirin 81 mg EC tablet, Take 1 tablet (81 mg) by mouth once daily., Disp: , Rfl: atorvastatin (Lipitor) 20 mg tablet, Take 1 tablet (20 mg) by mouth once daily at bedtime., Disp: , Rfl: canagliflozin (Invokana) 100 mg, Take 1 tablet (100 mg) by mouth once daily., Disp: , Rfl: carvedilol (Coreg) 6.25 mg tablet, TAKE 1 TABLET BY MOUTH TWICE A DAY WITH MEALS, Disp: 180 tablet, Rfl: 0 dapagliflozin propanediol (Farxiga) 5 mg, Take 1 tablet (5 mg) by mouth once daily., Disp: , Rfl: dulaglutide (Trulicity) 1.5 mg/0.5 mL pen injector injection, Inject under the skin., Disp: , Rfl: fenofibrate (Tricor) 145 mg tablet, Take 1 tablet (145 mg) by mouth once daily., Disp: 90 tablet, Rfl: 1 isosorbide mononitrate ER (Imdur) 60 mg 24 hr tablet, Take 1 tablet (60 mg) by mouth once daily., Disp: , Rfl: levothyroxine (Synthroid) 200 mcg tablet, Take 1 tablet (200 mcg) by mouth once daily., Disp: , Rfl: metFORMIN, OSM, (Fortamet) 500 mg 24 hr tablet, Take 1 tablet (500 mg) by mouth every 12 hours. Do not crush, chew, or split., Disp: , Rfl: nitroglycerin (Nitrostat) 0.4 mg SL tablet, Place under the tongue., Disp: , Rfl: Assessment/Plan 1. Arteriosclerotic cardiovascular disease (ASCVD) 2. History of coronary artery bypass graft 3. Multiple vessel coronary artery disease 4. Status post angioplasty 5. Hypertension, unspecified type 6. Mixed hyperlipidemia 7. Other specified diabetes mellitus with other specified complication, with long-term current use of insulin ([facility]) 8. BMI 29.0-29.9,adult 9. Never smoked tobacco Scribe Attestation By signing my name below, ISheri LPN, Scribe attest that this documentation has been prepared under the direction and in the presence of Martin Queen DO. Provider Attestation - Scribe documentation All medical record entries made by the Scribe were at my direction and personally dictated by me. I have reviewed the chart and agree that the record accurately reflects my personal performance of the history, physical exam, discussion and plan. documented in this encounter [facility] Work Phone: 01-29-2024 Instructions Sheri Newman LPN - 01/29/2024 2:10 PM EDT Please bring all medicines, vitamins, and herbal supplements with you when you come to the office. Prescriptions will not be filled unless you are compliant with your follow up appointments or have a follow up appointment scheduled as per instruction of your physician. Refills should be requested at the time of your visit. BMI was above normal measurement. Current weight: 102 kg (225 lb) Weight change since last visit (-) denotes wt loss -3 lbs Weight loss needed to achieve BMI 25: 35.9 Lbs Weight loss needed to achieve BMI 30: -1.9 Lbs Provided instructions on dietary changes Provided instructions on exercise. documented in this encounter [facility] Work Phone: 05-10-2023 Evaluation note Encounter Date Diagnosis Assessment Notes May, Spider bite wound, undetermined intent, initial encounter (ICD-10 - T63.304A) Spider bites home care material was printed Drink plenty fluids, get plenty of rest. Continue home medications as prescribed. Take the clindamycin as prescribed until gone. Keep the wound clean and dry. You may shower however no swimming until the wound is completely healed. Call your family doctor tomorrow for an appointment to be rechecked next week. Go to the ER for worsening symptoms or concerns. [employer] Other 01-24-2023 NotePROCEDURE: XR FOOT RT MIN 3 VIEWS HISTORY: Pain in right foot ; lateral right foot lump for one month COMPARISON: XR foot right 06/12/2022 FINDINGS: BONES:Marked degenerative changes the first metatarsophalangeal joint. Amputation of the second toe at the metatarsophalangeal joint. Amputation of distal phalanx of third digit and the middle and distal phalanx of the fourth digit. Moderate degenerative changes of the tarsal metatarsal joints. SOFT TISSUES:Mild distal dorsal soft tissue swelling. Skin surface marker localizing the patient's palpable lump projects over the tarsal-metatarsal joints where there are small degenerative osteophytes. EFFUSION:None visible. OTHER: Negative. IMPRESSION: 1. Patient's palpable lump may correspond to degenerative osteophytes at the metatarsophalangeal joints. 2. Stable postsurgical changes. No acute bone abnormality. Electronically authenticated by: HUSAM FISCHER Date: 2022-11-28 15:28[facility]08-08-2022 NotePROCEDURE: XR FOOT RT MIN 3 VIEWS COMPARISON: 06/06/2022 HISTORY: OTHER HAMMER TOE(S) (ACQUIRED), RIGHT FOOT FINDINGS: BONES:Interval amputation at the fourth proximal interphalangeal joint. Stable amputation second metatarsal phalangeal joint. Moderate hallux valgus with severe changes of the first metatarsal-phalangeal joint. Moderate degenerative changes tarsal metatarsal joints. Mild enthesopathic spurring of the calcaneus at the plantar insertion SOFT TISSUES:Forefoot soft tissue swelling. Vascular calcifications EFFUSION:None visible. OTHER: Negative. IMPRESSION: Interval amputation at the fourth proximal interphalangeal joint Electronically authenticated by: ROSA MARIA MATOS Date: 2022-06-12 21:05[facility]08-02-2022 NotePROCEDURE: XR FOOT RT MIN 3 VIEWS HISTORY: Pain in right foot ; seeping blister over fourth digit. COMPARISON: XR foot right 03/23/2022 FINDINGS: BONES:Marked degenerative changes of the first metatarsophalangeal joint. Resection of the second toe at the metatarsophalangeal joint. Resection of the third distal phalanx. Mild degenerative changes the midfoot. SOFT TISSUES:Mild dorsal soft tissue swelling over the distal foot. No radiopaque foreign body. EFFUSION:None visible. OTHER: Negative. IMPRESSION: 1. Stable surgical changes and degenerative changes. 2. No appreciable acute findings with specific attention to the fourth toe. Electronically authenticated by: HUSAM FISCHER Date: 2022-06-06 19:33[facility]05-19-2022 NotePROCEDURE: XR FOOT RT MIN 3 VIEWS HISTORY: Postoperative care COMPARISON: XR foot right 03/22/2022 FINDINGS: BONES:Amputation of the second toe at the metatarsophalangeal joint. Moderate degenerative changes of the tarsal-metatarsal joints and the first metatarsophalangeal joint. SOFT TISSUES:Dorsal soft tissue swelling and small amount of subcutaneous air at surgical site. EFFUSION:None visible. OTHER: Negative. IMPRESSION: 1. Postop amputation of second toe. 2. Multifocal degenerative changes. Electronically authenticated by: HUSAM FISCHER Date: 2022-03-23 11:10[id number] Evaluation note* Encounter Date Diagnosis Assessment Notes Treatment Notes Treatment Clinical Notes Oct, Sore throat (ICD-10 - J02.9) symptoms appear viral in nature. Reassurance given. . Saltwater gargles may help with pain and disrupts bacteria and viral infections. Continue tylenol/ibu for general discomfort. Encourage fluids. Symptoms should improve within the next 4-7 days. [employer] Other 12-04-2017 History general Narrative - Reported* Type Description Date Medical History Diabetes mellitus Medical History Hyperlipidemia Medical History Hypothyroidism Surgical History CABG 1992 Surgical History cardiac stent 2002 Surgical History right knee arthroplasty 10/08/20 Surgical History left knee arthroplasty 03/2016 Surgical History Foot Surgery Hospitalization History see above surgical histo ry [employer] Other Evaluation note* Diagnosis Arteriosclerotic cardiovascular disease (ASCVD) Unspecified cardiovascular disease History of coronary artery bypass graft Postsurgical aortocoronary bypass status Multiple vessel coronary artery disease Status post angioplasty Postsurgical percutaneous transluminal coronary angioplasty status Hypertension, unspecified type Mixed hyperlipidemia Other specified diabetes mellitus with other specified complication, with long- term current use of insulin (CMS/HCC) BMI 29.0-29.9,adult Never smoked tobacco documented in this encounter [facility] Work Phone: Evaluation note* Diagnosis Type 2 diabetes mellitus with other circulatory complications (CMS/HCC)- Primary Screening for prostate cancer Special screening for malignant neoplasm of prostate Type 2 diabetes mellitus with stage 3a chronic kidney disease, without long-term current use of insulin (HCC) (CMS/HCC)- Primary Type 2 diabetes mellitus with other circulatory complications (CMS/HCC) Type 2 diabetes mellitus with hyperosmolarity without coma, unspecified whether intermodal customer service insulin use (CMS/HCC) Type 2 diabetes mellitus with stage 3a chronic kidney disease, without long-term current use of insulin (HCC) (CMS/HCC) Type 2 diabetes mellitus with other circulatory complications (CMS/HCC) Type 2 diabetes mellitus with other circulatory complications (CMS/HCC) documented in this encounter [facility] HealthcareEvaluation note* Diagnosis Type 2 diabetes mellitus with other circulatory complications (CMS/HCC)- Primary Screening for prostate cancer Special screening for malignant neoplasm of prostate Type 2 diabetes mellitus with stage 3a chronic kidney disease, without long-term current use of insulin (HCC) (CMS/HCC)- Primary Type 2 diabetes mellitus with other circulatory complications (CMS/HCC) Type 2 diabetes mellitus with hyperosmolarity without coma, unspecified whether intermodal customer service insulin use (CMS/HCC) Type 2 diabetes mellitus with stage 3a chronic kidney disease, without long-term current use of insulin (HCC) (CMS/HCC) Type 2 diabetes mellitus with other circulatory complications (CMS/HCC) Hypothyroidism (acquired) (CMS/HCC)- Primary Unspecified hypothyroidism Family history of thyroid cancer Family history of other specified malignant neoplasm Type 2 diabetes mellitus with foot ulcer (CODE) (CMS/HCC) Non-pressure chronic ulcer of other part of unspecified foot with unspecified severity (CMS/HCC) Type 2 diabetes mellitus with diabetic neuropathy, unspecified (CMS/HCC) Type 2 diabetes mellitus with other diabetic neurological complication (CMS/HCC) Type 2 diabetes mellitus with diabetic polyneuropathy (CMS/HCC) Type 2 diabetes mellitus with hyperglycemia (CMS/HCC) Acquired absence of other right toe(s) (CMS/HCC) Hypothyroidism (acquired) (CMS/HCC) Unspecified hypothyroidism Family history of thyroid cancer Family history of other specified malignant neoplasm Type 2 diabetes mellitus with other circulatory complications (CMS/HCC) documented in this encounter [facility] HealthcareEvaluation note* Diagnosis Other seborrheic dermatitis- Primary Acrochordon Unspecified hypertrophic and atrophic condition of skin Other specified erythematous conditions Inflamed seborrheic keratosis documented in this encounter [facility] HealthcareEvaluation note* Diagnosis Type 2 diabetes mellitus with other circulatory complications (CMS/HCC)- Primary Screening for prostate cancer Special screening for malignant neoplasm of prostate Type 2 diabetes mellitus with stage 3a chronic kidney disease, without long-term current use of insulin (HCC) (CMS/HCC)- Primary Type 2 diabetes mellitus with other circulatory complications (CMS/HCC) Type 2 diabetes mellitus with hyperosmolarity without coma, unspecified whether fdc insulin use (CMS/HCC) Type 2 diabetes mellitus with stage 3a chronic kidney disease, without long-term current use of insulin (HCC) (CMS/HCC) Type 2 diabetes mellitus with other circulatory complications (CMS/HCC) Type 2 diabetes mellitus with other circulatory complications (CMS/HCC) Type 2 diabetes mellitus with other circulatory complications (CMS/HCC)- Primary Type 2 diabetes mellitus with stage 3a chronic kidney disease, without long-term current use of insulin (HCC) (CMS/HCC) Preventative health care Routine general medical examination at a health care facility Screening for prostate cancer Special screening for malignant neoplasm of prostate documented in this encounter [facility] HealthcareEvaluation note* Diagnosis Type 2 diabetes mellitus with other circulatory complications (CMS/HCC)- Primary Screening for prostate cancer Special screening for malignant neoplasm of prostate Type 2 diabetes mellitus with stage 3a chronic kidney disease, without long-term current use of insulin (HCC) (CMS/HCC)- Primary Type 2 diabetes mellitus with other circulatory complications (CMS/HCC) Type 2 diabetes mellitus with hyperosmolarity without coma, unspecified whether intermodal customer service insulin use (CMS/HCC) Type 2 diabetes mellitus with stage 3a chronic kidney disease, without long-term current use of insulin (HCC) (CMS/HCC) Type 2 diabetes mellitus with other circulatory complications (CMS/HCC) Type 2 diabetes mellitus with other circulatory complications (CMS/HCC) Type 2 diabetes mellitus with other circulatory complications (CMS/HCC)- Primary Type 2 diabetes mellitus with stage 3a chronic kidney disease, without long-term current use of insulin (HCC) (CMS/HCC) Preventative health care Routine general medical examination at a health care facility Screening for prostate cancer Special screening for malignant neoplasm of prostate Routine general medical examination at health care facility- Primary Routine general medical examination at a health care facility Encounter for vaccination Hypertension, unspecified type (CMS/HCC) Stage 3a chronic kidney disease (CKD) (CMS/HCC) Type 2 diabetes mellitus with stage 3a chronic kidney disease, without long-term current use of insulin (HCC) (CMS/HCC) Hyperlipidemia, unspecified hyperlipidemia type (CMS/HCC) [facility] Narrative* Mr. Pandya is a 66-year-old male who is seen back today for follow-up on his history of coronary disease. He had bypass surgery that was done remotely back in 1992 at [facility] in [place]. He had a WALL graft to the LAD and has had previous intervention to the circumflex and right coronary arteries. Last heart catheterization from 2014 demonstrated the LAD to be occluded proximally. WALL graft to the LAD was patent. Circumflex had been previously stented and had a 90% stenosis at the leading edge of the stent. There was some collaterals to the right coronary artery from the circumflex. The right coronary artery itself was occluded. He had further intervention to the circumflex.Today he indicates he has been having intermittent episodes of chest pain mostly with exertion. He typically rests and the discomfort resolves. * Physical exam: * Neck: No carotid bruits are heard * Lungs: Clear * Heart: Regular rate and rhythm without murmurs or extra sounds * Extremities: No significant edema * Recommendation is for him to undergo a Lexiscan stress test to evaluate for areas of significant ischemia. I anticipate he will likely require cardiac catheterization in the future. Continue medical management in the interim. He will be seen back after stress testing is completed. No change made to medications today. [facility] Work Phone: History of Present illness Narrative* Mr. Pandya is a 66-year-old male who is seen back today for follow-up on his history of coronary disease. He had remote bypass surgery that was done back in 1992 at [facility] in [place].He had a WALL graft to the LAD and has had previous intervention to the circumflex and right coronary arteries. Heart catheterization in 2014 demonstrated the LAD to be occluded proximally. The WALL graft was patent. Circumflex had significant stenosis and had further intervention. Right coronary artery was occluded. He had recent intervention again done in November of this year with further intervention to the circumflex which had a restenotic lesion. He indicates today no anginal chest pain. Se ems to be doing well. * Physical exam: * Neck: No carotid bruits are heard * Lungs: Clear * Heart: Regular rate and rhythm without murmurs or extra sounds * Extremities: No edema * Recommendation is continuation of current medications. He is interested in starting cardiac rehab. This will be arranged for him through [facility]. He is to return in 6 months for follow-up. [facility] [phone] DO Work Phone: History of Present illness Narrative* Mr. Pandya is a 67-year-old male who is seen back today for follow-up on his history of coronary disease. He had remote bypass surgery that was done back in 1992 at [facility] in [place]. 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 This was redilated and stented. He had a recent episode at cardiac rehab in [place] and because of this was seen in January of this year in the office. He had a stress test. Stress test suggested some lateral ischemia and he then subsequently underwent a heart cath. Heart catheterization demonstrated multivessel disease. There was a circumflex small branch with a 70% narrowing but this was considered too small for intervention. There was no further intervention done after his diagnosticheart cath. Today he indicates no recent episodes of chest pain. Seems to be stable. Blood pressurewas low earlier today but he is not symptomatic. * Physical exam: * Neck: No carotid bruits are heard * Lungs: Clear * Heart: Regular rate and rhythm without murmurs or extra sounds * Extremities: No edema * Recommendation is continued medical management of his multivessel coronary disease. No changes wererecommended. He is to keep track of his blood pressure at home or at least if he has symptoms of lightheadedness. No changes were made. He is to return in 6 months. [facility] 250 DO Work Phone: History of Present illness Narrative* Joyce Ramsey, GEOPHYSICAL PROSPECTING PERMIT AGENT - 12/04/2024 1:00 PM EST Images from the original note were not included. Subjective : Chief Complaint: Janice Pandya is an 69 y.o. male here for an annual wellness visit. I have reviewed and reconciled the history and medication list with the patient today. Current Outpatient Medications Medication Sig Dispense Refill aspirin 81 MG EC tablet Take 81 mg by mouth in the morning. atorvastatin (Lipitor) 20 MG tablet TAKE 1 TABLET BY MOUTH EVERY DAY IN THE EVENING FOR 90 DAYS 90 tablet 3 Blood Glucose Monitoring Suppl (Nanomech Verio Flex System) w/Device kit carvedilol (Coreg) 6.25 MG tablet Take 6.25 mg by mouth in the morning and 6.25 mg in the evening. Take with meals. ciclopirox (Loprox) 0.77 % cream Apply thin layer to affected area once a day, 30 day supply 30 g 11 Ciclopirox 1 % shampoo Lather on wet hair, leave on 5 min, rinse 2-3 x week, 30 day supply 120 mL 11 clopidogrel (Plavix) 75 MG tablet Take 75 mg by mouth in the morning. dapagliflozin (Farxiga) 5 MG Take 1 tablet (5 mg) by mouth Daily 90 tablet 3 fenofibrate (Tricor) 145 MG tablet Take 145 mg by mouth in the morning. glucose blood (LumaStreamuch Verio) test strip Fsbs daily 100 strip 4 isosorbide mononitrate ER (Imdur) 60 MG 24 hr tablet Take 60 mg by mouth in the morning. Do not crush or chew. . levothyroxine (Synthroid, Levoxyl) 200 MCG tablet TAKE 1 TABLET BY MOUTH EVERY DAY 90 tablet 3 metFORMIN XR (Glucophage-XR) 500 MG 24 hr tablet TAKE 1 TABLET BY MOUTH TWICE A DAY 180 tablet 1 nitroglycerin (Nitrostat) 0.[address] 0.4 mg under the tongue every 5 (five) minutes if needed for chest pain. OneTouch Delica Lancets 33G misc Fsbs daily 100 each 3 Semaglutide, 2 MG/DOSE, (Ozempic, 2 MG/DOSE,) 8 MG/3ML solution pen-injector Inject 2 mg under the skin 1 (one) time per week 9 mL 3 No current facility-administered medications for this visit. Review of Systems All other systems reviewed and are negative. List of current healthcare providers: Patient Care Team: Nitish Martin DO as PCP - General (Family Medicine) Lashaun Bradley DO as PCP - ACO Reach Elliot Queen MD as Referring Physician (Cardiology) Nisha Ivory MD as Referring Physician (Podiatry) Medicare Annual Visit Over the past 2 weeks, how often have you been bothered by any of the following problems? Little interest or pleasure in doing things: Not at all Feeling down, depressed, or hopeless: Not at all Patient Health Questionnaire-2 Score: 0 Over the past 2 weeks, how often have you been bothered by any of the following problems? Trouble falling or staying asleep, or sleeping too much: Not at all Feeling tired or having little energy: Not at all Poor appetite or overeating: Not at all Feeling bad about yourself - or that you are a failure or have let yourself or your family down: Not at all Trouble concentrating on things, such as reading the newspaper or watching television: Not at all Moving or speaking so slowly that other people could have noticed? Or the opposite - being so fidgety or restless that you have been moving around a lot more than usual.: Not at all Thoughts that you would be better off or hurting yourself in some way: Not at all Patient Health Questionnaire-9 Score: 0 Ribeiro Fall Risk History of Falling, Immediate or Within 3 Months: No Secondary Diagnosis: No Ambulatory Aid: Walks without aid/bedrest/nurse assist Intravenous Therapy/Heparin Lock: No Gait/Transferring: Normal/bedrest/immobile Mental Status: Oriented to own ability Ribeiro Fall Risk Score: 0 Health Risk Assessment Form Do you need help eating, bathing, using the toilet, dressing, or getting around your home?: No Can you prepare your own meals?: Yes Can you do your own housework without help?: Yes Can you shop for groceries or clothes without help?: Yes Do you exercise for about 20 minutes 3 or more days a week?: No How confident are you that you can control and manage most of your health problems?: Very confident Can you mange your money, credit cards and accounts, pay bills and taxes?: Yes Vision Screening: Yes, no gross abnormalities Hearing Screening: Yes, no gross abnormalities Cognitive Screening Three Word Registration: Village, Kitchen, Baby Clock Drawing: Normal Clock - 2 Three Word Recall: 2/3 words correct - 2 Total Score (0-5 Points): 4 Pain Assessment Pain Score: 0 - No pain Advance Care Planning Do you have a living will?: Yes Do you have a medical power of mergers and acquisitions attorney?: Yes Who is your medical power of mergers and acquisitions attorney?: alexis Liliana Objective : BP 120/78 Pulse 62 Temp 98 F Ht 6' 1 Wt 214 lb SpO2 99% BMI 28.23 kg/m No results found. Physical Exam Vitals reviewed. Constitutional: Appearance: Normal appearance. HENT: Head: Normocephalic and atraumatic. Right Ear: Tympanic membrane normal. Left Ear: Tympanic membrane normal. Nose: Nose normal. Mouth/Throat: Mouth: Mucous membranes are moist. Pharynx: Oropharynx is clear. Eyes: Extraocular Movements: Extraocular movements intact. Neck: Vascular: No carotid bruit. Cardiovascular: Rate and Rhythm: Normal rate. Rhythm irregular. Heart sounds: Normal heart sounds. Pulmonary: Effort: Pulmonary effort is normal. Breath sounds: Normal breath sounds. No wheezing, rhonchi or rales. Musculoskeletal: Cervical back: Neck supple. Lymphadenopathy: Cervical: No cervical adenopathy. Skin: General: Skin is warm and dry. Neurological: General: No focal deficit present. Mental Status: He is alert and oriented to person, place, and time. Psychiatric: Mood and Affect: Mood normal. Behavior: Behavior normal. Judgment: Judgment normal. Assessment/Plan : The following health maintenance schedule was reviewed with the patient and provided in printed form in the after visit summary: Health Maintenance Topic Date Due Medicare Annual Wellness (AWV) 01/23/2023 Diabetes: Retinopathy Screening 06/27/2024 Colorectal Cancer Screening 03/27/2025 Diabetes: Hemoglobin A1C 03/01/2025 Diabetes: Urine Protein Screening 12/01/2025 Influenza Vaccine Completed Pneumococcal Vaccine: 65+ Years Completed Advance Care Planning Has CAR[place] and CHELEJorge Janice was seen today for medicare annual wellness visit subsequent. Diagnoses and all orders for this visit: Routine general medical examination at health care facility (Primary) Encounter for vaccination - Pneumococcal conjugate vaccine 20-valent IM Hypertension, unspecified type (CMS/HCC) Stage 3a chronic kidney disease (CKD) ([facility]) Type 2 diabetes mellitus with stage 3a chronic kidney disease, without long-term current use of insulin (HCC) ([facility]) Hyperlipidemia, unspecified hyperlipidemia type ([facility]) Patient here for annual Medicare Wellness visit. Demographics were updated. Self-assessment was completed. Past medical, family and social history were updated. The medication list, including supplements being taken, was updated. A list of other current medical providers was established/updated. Time was spent discussing health maintenance issues, ordering proper testing, and schedule was provided regarding recommended screening. We discussed safety issues and fall risk. Depression screening was completed and addressed. Cognitive function was assessed by direct observation and assessment of ability to perform ADL's and IADL's was done. We also discussed Advanced Directives and code status. The current BMI was provided along with an education packet regarding healthy living and maintenanceof a healthy weight. The BMI will cont to be monitored at routine office visits as well. Major riskfactors for chronic disease including family history were discussed . Orders Placed This Encounter Procedures Pneumococcal conjugate vaccine 20-valent IM Electronically signed by Joyce Ramsey NP on December 04, 2024 documented in this encounter[facility] HealthcareReason for referral (narrative)* Consultation (Routine) - Authorized Specialty Diagnoses / Procedures Referred By Vaughn t Referred To Contact Cardiology Diagnoses Arteriosclerotic cardiovascular disease (ASCVD) Procedures Follow Up In Cardiology Martin Queen DO [facility], [address] [address] Martin Queen DO [facility], [address] [address] Referral ID Status Reason Start Date Expiration Date V isits Requested Visits Authorized [id number] Authorized 01/29/2024 01/28/2025 1 1 [facility] Work Phone: Summary Purpose Family History No Family History Records FoundUnknown Family Member Name Dates Details No pertinent family history: Mother, Sister(V49.89, Z78.9) Status:Active Family history of congestive heart failure: Brother(V17.49, Z82.49) Status:Active Unknown Family Member Name Dates Details Family history of congestive heart failure: Brother(V17.49, Z82.49) Status:Active No pertinent family history: Mother, Sister(V49.89, Z78.9) Status:Active Unknown Family Member Name Dates Details No pertinent family history: Mother, Sister(V49.89, Z78.9) Status:Active Family history of congestive heart failure: Brother(V17.49, Z82.49) Status:Active Unknown Family Member Name Dates Details Family history of congestive heart failure: Brother(V17.49, Z82.49) Status:Active No pertinent family history: Mother, Sister(V49.89, Z78.9) Status:Active Unknown Family Member Name Dates Details No pertinent family history: Mother, Sister(V49.89, Z78.9) Status:Active Family history of congestive heart failure: Brother(V17.49, Z82.49) Status:Active Unknown Family Member Name Dates Details Family history of congestive heart failure: Brother(V17.49, Z82.49) Status:Active No pertinent family history: Mother, Sister(V49.89, Z78.9) Status:Active Unknown Family Member Name Dates Details Family history of congestive heart failure: Brother(V17.49, Z82.49) Status:Active No pertinent family history: Mother, Sister(V49.89, Z78.9) Status:Active Unknown Family Member Name Dates Details Family history of congestive heart failure: Brother(V17.49, Z82.49) Status:Active No pertinent family history: Mother, Sister(V49.89, Z78.9) Status:Active Unknown Family Member Name Dates Details Family history of congestive heart failure: Brother(V17.49, Z82.49) Status:Active No pertinent family history: Mother, Sister(V49.89, Z78.9) Status:Active Unknown Family Member Name Dates Details Family history of congestive heart failure: Brother(V17.49, Z82.49) Status:Active No pertinent family history: Mother, Sister(V49.89, Z78.9) Status:Active Unknown Family Member Name Dates Details Family history of congestive heart failure: Brother(V17.49, Z82.49) Status:Active No pertinent family history: Mother, Sister(V49.89, Z78.9) Status:Active Unknown Family Member Name Dates Details Family history of congestive heart failure: Brother(V17.49, Z82.49) Status:Active No pertinent family history: Mother, Sister(V49.89, Z78.9) Status:Active Unknown Family Member Name Dates Details Family history of congestive heart failure: Brother(V17.49, Z82.49) Status:Active No pertinent family history: Mother, Sister(V49.89, Z78.9) Status:Active Unknown Family Member Name Dates Details Family history of congestive heart failure: Brother(V17.49, Z82.49) Status:Active No pertinent family history: Mother, Sister(V49.89, Z78.9) Status:Active Advance Directives No Advanced Directives Records FoundNo Advanced Directives Records FoundNo Advanced Directives Records FoundNo Advanced Directives Records FoundNo Advanced Directives Records FoundNo Advanced Directives Records FoundNo Advanced Directives Records FoundNo Advanced Directives Records FoundNo Advanced Directives Records Found Chief Complaint JANICE PANDYA is being seen for an annual follow-up of.cath results.CATH RESULTS.* JANICE PANDYA is being seen for a 6 month follow-up of. * 67-year-old gentleman returns for follow-up, former patient of Dr. Flores now seeing me for the first time. 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 Last heart catheterization from March [address] Christian is reviewed; revealing: Occluded LAD, patent WALL to the LAD with good runoff and good caliber distally giving collaterals to the occluded right coronary, occluded right coronary, circumflex with a stent in the proximal and mid segment with good result. The first marginal branch is small with a 70% stenosis and there are no other grafts noted. Patient has mild LV dysfunction with ejection fraction of 45%. * Patient's underlying comorbidities are noted for diabetes mellitus, obesity, mild ischemic cardiomyopathy with ejection fraction 45% the above-mentioned CABG and stenting * He states his glucoses running around 150-1 60 at home and remains otherwise in appropriate therapies from our standpoint he is not on a NERIS or ARB as he has adverse reaction/allergy to NERIS inhibitors (hypotension) * Recommendations, continue current therapies, obtain appropriate laboratories, follow-up in 1 year Additional Source Comments (unrecognized sect ion and content) No Status Records FoundNo Status Records FoundNo Status Records FoundNo Status Records FoundNo Status Records FoundNo Status Records FoundNo Status Records FoundNo Status Records FoundNo Status Records Found INFORMATION SOURCE (unrecogn ized section and content) DATE CREATED AUTHOR 05/01/2018 [facility] DATE CREATED AUTHOR AUTHOR'S ORGANIZ ATION 01/25/2022 [facility] dical Specialist DATE CREATED AUTHOR AUTHOR'S ORGANIZ ATION 03/03/2022 [facility] DATE CREATED AUTHOR AUTHOR'S ORGANIZ ATION 12/09/2022 [facility] DATE CREATED AUTHOR AUTHOR'S ORGANIZ ATION 01/24/2023 [employer] DATE CREATED AUTHOR AUTHOR'S ORGANIZ ATION 02/20/2023 [facility] DATE CREATED AUTHOR AUTHOR'S ORGANIZ ATION 03/21/2023 [facility] DATE CREATED AUTHOR AUTHOR'S ORGANIZ ATION 04/18/2024 [facility] DATE CREATED AUTHOR AUTHOR'S ORGANIZ ATION 12/06/2024 [facility] dical Specialists EPIC REASON FOR VISIT (unrecogniz ed section and content) Reason Comments Annual Exam Reason Comments Diabetes Reason Comments Rash Suspicious Skin Lesion Reason Comments Medicare Annual Wellness Visit Subsequen t Care Teams (unrecognized sec tion and content) Bartender Helper Relationship Specialty Start Date End Date Nitish Martin DO [address] [place] [id number] PCP - General 09/18/19 Bartender Helper Relationship Specialty Start Date End Date Lashaun Bradley, DO [address] [place] [address] PCP - ACO Reach 03/29/23 Nitish Martin, DO [address] [place] [address] PCP - General Family Medicine 03/13/23 Bartender Helper Relationship Specialty Start Date End Date Lashaun Bradley, DO [address] [place] [address] PCP - ACO Reach 03/29/23 Nitish Martin, DO [address] [place] [address] PCP - General Family Medicine 03/13/23 Bartender Helper Relationship Specialty Start Date End Date Lashaun Bradley, DO [address] [place] [address] PCP - ACO Reach 03/29/23 Nitish Martin, DO [address] [place] [address] PCP - General Family Medicine 03/13/23 Bartender Helper Relationship Specialty Start Date End Date Lashaun Bradley, DO [address] [place] [address] PCP - ACO Reach 03/29/23 Nitish Martin, DO [address] [place] [address] PCP - General Family Medicine 03/13/23 Bartender Helper Relationship Specialty Start Date End Date Lashaun Bradley, DO [address] [place] [address] PCP - ACO Reach 03/29/23 Nitish Martin, DO [address] [place] [address] PCP - General Family Medicine 03/13/23 Bartender Helper Relationship Specialty Start Date End Date Kirk Lashaun Dimas, DO [address] [place] [address] PCP - ACO Reach 03/29/23 Nitish Martin, DO [address] [place] [address] PCP - General Family Medicine 03/13/23 Bartender Helper Relationship Specialty Start Date End Date OtonielLashaun thompson Judie, DO [address] [place] [address] PCP - ACO Reach 03/29/23 Ntiish Martin, DO [address] [place] [address] PCP - General Family Medicine 03/13/23 Elliot Queen MD [address] [place] [address] Referring Physician Cardiology 12/04/24 Nisha Ivory MD [address] [place] [address] [place] [address] Referring Physician Podiatry 12/04/24 Bartender Helper Relationship Specialty Start Date End Date Lashaun Bradley, DO [address] [place] [address] PCP - ACO Reach 03/29/23 Nitish Martin, DO [address] [place] [address] PCP - General Family Medicine 03/13/23 FOR RECORDS PERTAINING TO PATIENTS WHO ARE OR HAVE BEEN ENROLLED IN A CHEMICAL DEPENDENCY/SUBSTANCEABUSE PROGRAM, SOME INFORMATION MAY BE OMITTED. This clinical summary was aggregated from multiple sources. Caution should be exercised in using it in the provision of clinical care. This summary normalizes information from multiple sources, and as a consequence, information in this document may materially change the coding, format and clinical context of patient data. In addition, data may be omitted in some cases. CLINICAL DECISIONS SHOULD BE BASED ON THE PRIMARY CLINICAL RECORDS. [facility]. provides no warranty or guarantee of the accuracy or completeness of information in this document.
== END 2024-12-10 09:53 | disposition home or self-care (01) ==
LOC: WC 09:53
PROVIDERS: PCP Family Medicine; Visit Provider Physician Assistant
DX: E11.621 Type 2 diabetes mellitus with foot ulcer (principal); L97.422 Non-pressure chronic ulcer of left heel and midfoot with fat layer exposed
CPT/HCPCS: 11042

== ENCOUNTER 2024-12-23 10:32 | Outpatient (OUT) | payer MEDICARE, OTHER, SELFPAY ==
--- OUTSIDE RECORDS SUMMARY | 2024-12-23 10:41 | XMS_ITS | CCD ---
Author Organization [facility] Care Team Providers Care Mud Mixer Operator Name Role Phone TANJA NITISH~[phone] UNKNOWN Unavailable Unavailable Ayisire, Eseoghene N Unavailable Unavailable Ayisadam, Eseoghene N Unavailable Unavailable Nitish Martin Unavailable Unavailable Unavailable Jaelyn Espinal Unavailable Margaux Christian Admitting Unavailable Nitish Martin Primary Care Unavailable Margaux Christian Attending Unavailable Nitish Martin Primary Care Unavailable Margaux Christian Attending Unavailable Margaux Christian Admitting Unavailable Tanja, Dr. Nitihs Crump Primary Care Unavaila Margaux South Attending [...] Unavail able NISHA IVORY Attending Unavailable NISHA IVORY Admitting Unavailable DR NITISH MARTIN Primary Care [...] Admitting Unavailable HIGHLANDER, NISHA Núñez Attending Unavailable TNAJA, DR CLEMENS Primary Care Unavailable HIGHLANDER, NISHA [...] Primary Care Unavailable Lashaun Bradley DO Unavailable [phone] Nitish Martin DO Primary Care Provider [phone] Elliot Queen MD Unavailable Nisha Ivory MD Unavailable [phone] LASHAUN BRADLEY Attending Unavailable NITISH MARTIN Referring [...] Reaction(s) Facility (4 sources) Angiotensin Converting Enzyme (Neris) Inhibitors; Translations: [NERIS Inhibitors] Allergy to drug (finding) 3 Hypotension [facility] 3 Repository (1 source) Angiotensin-conv erting enzyme inhibitor agent Drug Intolerance 3 Unknown [facility] Medications Current Medications Medication Drug Class(es) [...] Jacki cium Active Blood Glucose Monitoring Suppl (Flowlineuch Verio Flex System) w/Device kit (13 sources) Blood Glucose Monitoring Suppl (One[employer]itrum View, [employer] Verio Flex System) w/Device kit Active canagliflozin [...] [Coronary atherosclerosis of unspecified type of vessel, lower brule or graft] Onset: 03-29-2016 01-29-2024 Chronic Coronary [...] Onset: 12-05-2022 Chronic Other aftercare (2 sources) technical trainer (current) use of insulin; Translations: [halfway (current) use of insulin ([facility])] Onset: 08-31-2023 Episodic Other bone [...] Onset: 10-24-2022 Episodic Other aftercare (1 source) technical trainer (current) use of aspirin; Translations: [LONGTERM CURRENT USE OF ASPIRIN] Onset: 03-28-2022 Episodic Other aftercare (1 source) Other half-way (current) drug therapy; Translations: [OTH SCIENCE AND OPERATIONS OFFICER CURRENT DRUG THERAPY] Onset: 03-28-2022 Episodic Other [...] Interpretation and review of laboratory results [facility] 12-01-2024 HbA1c (Bld) [Mass fraction] 7.7 % [facility] HbA1c (Bld) [Mass fraction]o n 09-01-2024 Interpretation and review of laboratory results Abnormal [facility] 09-01-2024 HbA1c (Bld) [Mass fraction] 8.6 % [facility] No Panel Informationon 06-27 [facility] Semi Carcinoembryonic Ag [Mass/Vo l]on 06-20-2024 Performing Organization Information Site ID: QPT Name: [facility] Address: [address] [place] [id number] Director: Edil Bedolla MD [facility] Laboratory - Chemistry and C hemistry - challengeon 06-20-2024 Calcitonin [Mass/Vol] 6 pg/mL NINF - 10 pg/mL [facility] Comment on above: This test was performed using the Siemens Chemiluminescent method. Values obtained with different assay methods cannot be used interchangeably. Calcitonin levels, regardless of value, should not be interpreted as absolute evidence of the presence or absence of the disease. Carcinoembryonic Ag [Mass/Vol] ng/mL See Note: ng/mL [facility] Comment on above: Reference Range: Non-Smoker: <2.5 Smoker: <5.0 This test was performed using the Siemens chemiluminescent method. Values obtained from different assay methods cannot be used interchangeably. CEA levels, regardless of value, should not be interpreted as absolute evidence of the presence or absence of disease. No Panel Informationon 06-20 Performing Organization Information Site ID: KIRT Name: [facility] [place] Address: [address] [place] [address] Dr Polk, [place] Director: Huan Tate M.D.,PhD [facility] US THYROIDon 06-16-2024 US THYROID [...] report is generated using voice recognition reporting (Simple Emotion). On occasion Simple Emotion erroneously drops words from the report or [...] report is generated using voice recognition reporting (IncellDxcribe). On occasion PowerScribe erroneously drops words from [...] report is generated using voice recognition reporting (IncellDxcribe). On occasion PowerScribe erroneously drops words from the report or replaces the spoken word with similar sounding words. Please call with any questions/concerns regarding this report.* Dictated and transcribed 06/16/2024/ This report has been electronically signed and approved by the interpreting radiologist. Electronically Signed Martin Christianson II, M.D. 2024-06-16 16:43:23 [facility] Radiology Study observation (narrative) [facility] [employer] US Thyroid glandOrdered By: Martin Christianson on 06-16-2024 [facility] [employer] Work Phone: Office Visit (Cardiology)on 01-23-2023 [...] negat (more content not included)... Normal [facility] Tobacco Screening.on 023 Adult depression screening assessment No [facility] 250 DO Work Phone: Fall risk assessment a) No falls within the last year [facility] 250 DO Work Phone: Tobacco use status [facility] b) No [facility] 250 DO Work Phone: ACID FAST SMEAR AND CXon Acid Fast Culture Negative Normal [facility] Comment on above: Result Comment: No a monse fast bacilli isolated after 6 weeks. Performed By: #### A FB #### [facility] [address] [place] [address] Dr. Balta Gorman Acid Fast Smear Negative Normal [facility] Comment on above: Performed By: #### A FB #### [facility] [address] [place] [address] Dr. Balta Gorman [employer] Specimen Processing Tissue Grinding Normal [facility] Comment on above: Performed By: #### A FB #### [facility] [address] [place] [address] Dr. Balta Gorman FUNGAL CULTUREon 07-11-2022 Fungus (Mycology) Culture Final report [facility] Comment on above: Performed By: #### C XFUN #### [facility] [address] [place] [address] Dr. Balta Gorman Fungus Stain Final report Normal [facility] Comment on above: Performed By: #### C XFUN #### [facility] [address] [place] [address] Dr. Balta Gorman Result 1 Comment Normal [facility] Comment on above: Result Comment: FRANCISCA/ Calcofluor preparation: no fungus observed. Performed By: #### C XFUN #### [facility] [address] [place] [address] Dr. Balta Gorman Result Comment: No y east or mold isolated after 4 weeks. WOUND CULTUREon 06-15-2022 Bacteria identified Aer cx Nom (Unsp spec) Final report Normal [facility] Comment on above: Performed By: #### A FB #### [facility] [address] [place] [address] Dr. Balta Gorman Result 1 Comment Normal [facility] Comment on above: Result Comment: No g rowth in 36 - 48 hours. Performed By: #### A FB #### [facility] [address] [address] [address] Balta CAVAZOS STAINon 06-12-2022 DIPHTHEROIDS Normal [facility] Comment on above: Performed By: #### C VDTBH #### [facility] [address] [address] [address] Balta Gorman EPITHELIALS Normal [facility] Comment on above: Performed By: #### C VDTBH #### [facility] [address] [place] [address] Dr. Balta Gorman FUNGAL ELEMENTS Normal [facility] Comment on above: Performed By: #### C VDTBH #### [facility] [address] [address] [address] Balta CAVAZOS NEG BACILLI Normal [facility] Comment on above: Performed By: #### C VDTBH #### [facility] [address] [place] [address] Dr. Balta CAVAZOS NEG DIPPLOCOCCI Normal [facility] Comment on above: Performed By: #### C VDTBH #### [facility] [address] [place] [address] Dr. Balta CAVAZOS POS BACILLI Normal [facility] Comment on above: Performed By: #### C VDTBH #### [facility] [address] [place] [address] Dr. Balta Gorman GRAM POSITIVE COCCI Normal [facility] Comment on above: Performed By: #### C VDTBH #### [facility] [address] [place] [address] Dr. Balta Gorman GRAM STAIN SOURCE Rt 4th Toe Bone Normal [facility] Comment on above: Performed By: #### C VDTBH #### [facility] [address] [place] [address] Dr. Balta Gorman GS_DIPTH Normal [facility] Comment on above: Performed By: #### C VDTBH #### [facility] [address] [address] [address] Balta Gorman WBC NONE SEEN Normal [facility] Comment on above: Performed By: #### C VDTBH #### [facility] [address] [address] [address] Balta Gorman POINT OF CARE GLUCOSEon Glucose [Mass/Vol] 168 mg/dL Critically high 74-106 [facility] Comment on above: Performed By: #### P OCGLUC ####[facility] [address] [address]Dr. Balta Gorman Glucose [Mass/Vol] 161 mg/dL Critically high 74-106 [facility] Comment on above: Performed By: #### P OCGLUC #### [facility] [address] [address] [address] Balta Gorman [facility]on SARS-CoV-2 (COVID-19) RNA DERICK+probe Ql (Unsp spec) Not detected Normal NOT DETECTED [facility] Comment on above: Result Comment: This test is not yet approved or cleared by the [place] FDA. When there are no FDA-approved or cleared tests available, and other criteria are met, FDA can make tests available under an emergency access mechanism called an Emergency Use Authorization (EUA). The EUA for this test is supported by the Environmental Protection Inspector of Health and Human Service's (HHS's) declaration [...] with SARS-CoV-2. Performed By: #### C VDTBH ####[facility] [address] [place], [place] [address]ClDr. Balta Gorman PROF CHEM 8 (BAS METB)on Anion gap [Moles/Vol] 13.3 mmol/L Normal [facility] Comment on above: Performed By: #### C VDTBH #### [facility] [address] [address] [address] Balta Gorman Calcium [Mass/Vol] 8.7 mg/dL Normal 8.5-10.1 [facility] Comment on above: Performed By: #### C VDTBH #### [facility] [address] [address] [address] Balta Gorman Chloride [Moles/Vol] 106 mmol/L Normal 98-107 [facility] Comment on above: Performed By: #### C VDTBH #### [facility] [address] [address] [address] Balta Gorman CO2 [Moles/Vol] 23.9 mmol/L Normal 21.0-32.0 [facility] Comment on above: Performed By: #### C VDTBH #### [facility] [address] [address] [address] Balta Gorman Creatinine [Mass/Vol] 1.24 mg/dL Normal 0.70-1.30 [facility] Comment on above: Performed By: #### C VDTBH #### [facility] [address] [address] [address] Balta Gorman EGFR-AF CONGOLESE >60 Normal >=60 [facility] Comment on above: Performed By: #### C VDTBH #### [facility] [address] [address] [address] Balta Gorman EGFR-NON AF CONGOLESE 58 mL/min/1.73m2 Critically low >=60 [facility] Comment on above: Performed By: #### C VDTBH #### [facility] [address] [address] [address] Balta Gorman Glucose [Mass/Vol] 158 mg/dL Critically high 74-106 [facility] Comment on above: Performed By: #### C VDTBH #### [facility] [address] [address] [address] Balta Gorman Potassium [Moles/Vol] 4.2 mmol/L Normal 3.5-5.1 [facility] Comment on above: Performed By: #### C VDTBH #### [facility] [address] [address] [address] Balta Gorman Sodium [Moles/Vol] 139 mmol/L Normal 136-145 [facility] Comment on above: Performed By: #### C VDTBH #### [facility] [address] [address] [address] Balta Gorman Urea nitrogen [Mass/Vol] 19.0 mg/dL Critically high 7.0-18.0 [facility] Comment on above: Performed By: #### C VDTBH #### [facility] [address] [address] [address] Balta Gorman Urea nitrogen/Creatinine [Mass ratio] 15.3 mg/mg Normal [facility] Comment on above: Performed By: #### C VDTBH #### [facility] [address] [address] [address] Balta Gorman ACID FAST SMEAR AND CXon Acid Fast Culture Negative [facility] Comment on above: Result Comment: No a monse fast bacilli isolated after 6 weeks. Performed By: #### A FB ####[facility] [address] [id number]. Balta Gorman Acid Fast Smear Negative Normal [facility] Comment on above: Performed By: #### A FB ####[facility] [address] [id number] Gorman [employer] Specimen Processing Tissue Grinding [facility] Comment on above: Performed By: #### A FB ####[facility] [address] [place], [place] [address]Xz. Balta Gorman FUNGAL CULTUREon 05-05-2022 Fungus (Mycology) Culture Final report Normal [facility] Comment on above: Performed By: #### A FB #### [facility] [address] [address] [address] Balta Gorman Fungus Stain Final report Normal [facility] Comment on above: Performed By: #### A FB #### [facility] [address] [address] [address] Balta Gorman Result 1 Comment Normal [facility] Comment on above: Result Comment: FRANCISCA/ Calcofluor preparation: no fungus observed. Performed By: #### A FB #### [facility] [address] [address] [address] Balta Gorman Result Comment: No y [...] that was done back in 1992 at [facility] in [place]. 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 This was redilated and stented. He had a recent episode at cardiac rehab in [place] and because of this was seen in [...] Recorded: 01May2022 09:28AM Heart Rate80, L Radial Vbmncact08, LUE, Sitting Zeuwozksb61, LUE, Sitting Height6 ft 1 in Gqgwyp827 lb BMI Cvajwutfaq11.42 kg/m2 BSA Calculated2.25 Tobacco Useb) No Falls Screening (Age 18+)a) No falls within the last year Signatures Electronically signed by : Helga Flores DO; May 01 2022 11:18AM EST (Author) Normal Right On Interactive Tobacco Screening.on 022 Fall risk assessment a) No falls within the last year [facility] [employer] in [place] 250 DO Work Phone: Tobacco use status [facility] b) No [facility] 250 DO Work Phone: XR FOOT LT [...] JOSE MARTIN WHITAKER Date: 2022-04-14 10:08 Normal [facility] TISSUE CULTUREon 04-07-2022 Anaerobic Culture, Extended Incubation Final report Normal [facility] Comment on above: Performed By: #### A FB #### [facility] [address] [address] [address] Balta Gorman Result 1 Comment Normal [facility] Comment on above: Result Comment: No g rowth in 56 - 72 hours. Performed By: #### A FB #### [facility] [address] [place] [address] Dr. Balta Gorman Result Comment: No g rowth after 14 days. Tissue Culture Final report Normal [facility] Comment on above: Performed By: #### A FB #### [facility] [address] [place] [address] Dr. Balta Gorman WOUND CULTUREon 03-26-2022 Antimicrobial Susceptibility Comment Normal [facility] Comment on above: Result Comment: S = Susceptible; I = Intermediate; R = Resistant P = Positive; N = Negative MICS are expressed in micrograms per mL Antibiotic RSLT#1 RSLT#2 RSLT#3 RSLT#4 Ciprofloxacin R Clindamycin S Erythromycin S Gentamicin S Levofloxacin R Linezolid S Oxacillin R Penicillin R Rifampin S Tetracycline S Trimethoprim/Sulfa R Vancomycin S Performed By: #### A FB #### [facility] [address] [place] [address] Dr. Balta Gorman Bacteria identified Aer cx Nom (Unsp spec) Final report Abnormal [facility] Comment on above: Performed By: #### A FB #### [facility] [address] [place] [address] Dr. Balta Gorman Result 1 Comment Abnormal [facility] Comment on above: Result Comment: Meth icillin - resistant Staphylococcus aureus Based on resistance to oxacillin this isolate would be resistant to all currently available beta-lactam antimicrobial agents, with the exception of the newer cephalosporins with anti-MRSA activity, such as Ceftaroline Heavy growth Performed By: #### A FB #### [facility] [address] [address] [address] Balta Gorman CBC AUTO DIFFon 03-24-2022 BASO # 0.0 103/ul Normal 0.0-0.1 [facility] Comment on above: Performed By: #### C BC ####[facility] [address] [address]Dr. Balta Gorman Basophils/100 WBC (Bld) 0.5 % Normal 0.2-2.0 [facility] Comment on above: Performed By: #### C BC ####[facility] [address] [place], [place] [address]Dr. Balta Gorman EO # 0.1 103/ul Normal 0.0-0.7 [facility] Comment on above: Performed By: #### C BC ####[facility] [address] [place], [place] [address]Dr. Balta Gorman Eosinophils/100 WBC (Bld) 1.1 % Normal 0.9-7.0 [facility] Comment on above: Performed By: #### C BC ####[facility] [address] [place], [place] [address]Dr. Balta Gorman Erythrocyte distribution width (RBC) [Ratio] 16.9 % Critically high 11.0-15.0 [facility] Comment on above: Performed By: #### C BC ####[facility] [address] [place], [place] [address]Dr. Balta Gorman Hematocrit (Bld) [Volume fraction] 34.5 % Critically low 42.0-54.0 [facility] Comment on above: Performed By: #### C BC ####[facility] [address] [place], [place] [address]Dr. Balta Gorman Hemoglobin (Bld) [Mass/Vol] 10.2 g/dL Critically low 14.0-18.0 [facility] Comment on above: Performed By: #### C BC ####[facility] [address] [place], [place] [address]Dr. Balta Gorman IG # 0.03 10e3/ul Normal 0.00-0.03 [facility] Comment on above: Performed By: #### C BC ####[facility] [address] [address]DrPaola Gorman IG % 0.4 % Normal 0.0-0.5 [facility] Comment on above: Performed By: #### C BC ####[facility] [address] [address]DrPaola Gorman LYMPH # 1.6 103/ul Normal 1.2-3.8 [facility] Comment on above: Performed By: #### C BC ####[facility] [address] [address]DrPaola Gorman Lymphocytes/100 WBC (Bld) 18.4 % Critically low 20.5-60.0 [facility] Comment on above: Performed By: #### C BC ####[facility] [address] [address]DrPaola Gorman MANUAL DIFF REQ NO Normal [facility] Comment on above: Performed By: #### C BC ####[facility] [address] [address]DrPaola Gorman MCH (RBC) [Entitic mass] 22.7 pg Critically low 25.9-34.0 [facility] Comment on above: Performed By: #### C BC ####[facility] [address] [address]DrPaola Gorman MCHC (RBC) [Mass/Vol] 29.6 g/dL Critically low 29.9-35.2 [facility] Comment on above: Performed By: #### C BC ####[facility] [address] [address]DrPaola Gorman MCV (RBC) [Entitic vol] 76.7 fL Critically low 80.0-94.0 [facility] Comment on above: Performed By: #### C BC ####[facility] [address] [place], [place] [address]DrPaola Gorman MONO # 0.9 103/ul Critically high 0.3-0.8 [facility] Comment on above: Performed By: #### C BC ####[facility] [address] [id number]. Balta Gorman Monocytes/100 WBC (Bld) 11.1 % Normal 1.7-12.0 [facility] Comment on above: Performed By: #### C BC ####[facility] [address] [address]Dr. Balta Gorman NEUT # 5.8 103/ul Normal 1.4-6.5 [facility] Comment on above: Performed By: #### C BC ####[facility] [address] [id number]. Balta Gorman Neutrophils/100 WBC (Bld) 68.5 % Normal 43.0-75.0 [facility] Comment on above: Performed By: #### C BC ####[facility] [address] [address]Dr. Balta Gorman Platelet mean volume (Bld) [Entitic vol] 10.2 fL Normal 9.5-13.5 [facility] Comment on above: Performed By: #### C BC ####[facility] [address] [address]Dr. Balta Gorman PLT 285 103/ul Normal 150-450 [facility] Comment on above: Performed By: #### C BC ####[facility] [address] [address]Dr. Balta Gorman RBC 4.50 106/ul Critically low 4.70-6.10 [facility] Comment on above: Performed By: #### C BC ####[facility] [address] [address]Dr. Balta Gorman WBC 8.5 103/ul Normal 4.0-11.0 [facility] Comment on above: Performed By: #### C BC ####[facility] [address] [id number] Balta Gorman POINT OF CARE GLUCOSEon 05-2 0 Glucose [Mass/Vol] 209 mg/dL Critically high 74-[address] [facility] Comment on above: Performed By: #### P OCGLUC #### [facility] [address] [address] [address] Balta Gorman PROF CHEM 8 (BAS METB)on Anion gap [Moles/Vol] 13.7 mmol/L Normal [facility] Comment on above: Performed By: #### B MP ####[facility] [address] [address]DrPaola Gorman Calcium [Mass/Vol] 8.1 mg/dL Critically low 8.5-10.1 e [facility] Comment on above: Performed By: #### B MP ####[facility] [address] [address]DrPaola Gorman Chloride [Moles/Vol] 105 mmol/L Normal 98-107 [facility] Comment on above: Performed By: #### B MP ####[facility] [address] [id number] Gorman CO2 [Moles/Vol] 23.0 mmol/L Normal 21.0-32.0 [facility] Comment on above: Performed By: #### B MP ####[facility] [facility] [address] [place] [id number] Gorman Creatinine [Mass/Vol] 1.15 mg/dL Normal 0.70-1.30 [facility] Comment on above: Performed By: #### B MP ####[facility] [address] [place] [id number] Gorman EGFR-AF CONGOLESE >60 Normal >=60 [facility] Comment on above: Performed By: #### B MP ####[facility] [address] [place] [id number] Gorman EGFR-NON AF CONGOLESE >60 Normal >=60 [facility] Comment on above: Performed By: #### B MP ####[facility] [address] [place] [address]DrPaola Gorman Glucose [Mass/Vol] 214 mg/dL Critically high 74-[address] [facility] Comment on above: Performed By: #### B MP ####[facility] [address] [place] [address]DrPaola Gorman Potassium [Moles/Vol] 3.7 mmol/L Normal 3.5-5.1 [facility] Comment on above: Performed By: #### B MP ####[facility] Q[address] [place] [address]DrPaola Gorman Sodium [Moles/Vol] 138 mmol/L Normal 136-145 [facility] Comment on above: Performed By: #### B MP ####[facility] [address]jee[address] [place] [address]DrPaola Gorman Urea nitrogen [Mass/Vol] 21.0 mg/dL Critically high 7.0-18.0 [facility] Comment on above: Performed By: #### B MP ####[facility] [address] [place], [place] [address]DrPaola Gorman Urea nitrogen/Creatinine [Mass ratio] 18.3 mg/mg Normal [facility] Comment on above: Performed By: #### B MP ####[facility] [address] [place], [place] [address]DrPaola Gorman CBC AUTO DIFFon 03-23-2022 BASO # 0.1 103/ul Normal 0.0-0.1 [facility] Comment on above: Performed By: #### C VDTBH #### [facility] [address] [place] [address] Dr. Balta Gorman Basophils/100 WBC (Bld) 1.0 % Normal 0.2-2.0 [facility] Comment on above: Performed By: #### C VDTBH #### [facility] [address] [place] [address] Dr. Balta Gorman EO # 0.3 103/ul Normal 0.0-0.7 [facility] Comment on above: Performed By: #### C VDTBH #### [facility] [address] [place] [address] Dr. Balta Gorman Eosinophils/100 WBC (Bld) 4.5 % Normal 0.9-7.0 [facility] Comment on above: Performed By: #### C VDTBH #### [facility] [address] [place] [address] Dr. Balta Gorman Erythrocyte distribution width (RBC) [Ratio] 17.0 % Critically high 11.0-15.0 [facility] Comment on above: Performed By: #### C VDTBH #### [facility] [address] [place] [address] Dr. Balta Gorman Hematocrit (Bld) [Volume fraction] 35.7 % Critically low 42.0-54.0 [facility] Comment on above: Performed By: #### C VDTBH #### [facility] [address] [place] [address] Dr. Balta Gorman Hemoglobin (Bld) [Mass/Vol] 10.6 g/dL Critically low 14.0-18.0 [facility] Comment on above: Performed By: #### C VDTBH #### [facility] [address] [place] [address] Dr. Balta Gorman IG # 0.03 10e3/ul Normal 0.00-0.03 [facility] Comment on above: Performed By: #### C VDTBH #### [facility] [address] [place] [address] Dr. Balta Gorman IG % 0.4 % Normal 0.0-0.5 [facility] Comment on above: Performed By: #### C VDTBH #### [facility] [address] [place] [address] Dr. Balta Gorman LYMPH # 1.8 103/ul Normal 1.2-3.8 [facility] Comment on above: Performed By: #### C VDTBH #### [facility] [address] [place] [address] Dr. Balta Gorman Lymphocytes/100 WBC (Bld) 25.6 % Normal 20.5-60.0 [facility] Comment on above: Performed By: #### C VDTBH #### [facility] [address] [place] [address] Dr. Balta Gorman MANUAL DIFF REQ NO Normal [facility] Comment on above: Performed By: #### C VDTBH #### [facility] [address] [place] [address] Dr. Balta Gorman MCH (RBC) [Entitic mass] 22.8 pg Critically low 25.9-34.0 [facility] Comment on above: Performed By: #### C VDTBH #### [facility] [address] [place] [address] Dr. Balta Gorman MCHC (RBC) [Mass/Vol] 29.7 g/dL Critically low 29.9-35.2 [facility] Comment on above: Performed By: #### C VDTBH #### [facility] [address] [place] [address] Dr. Balta Gorman MCV (RBC) [Entitic vol] 76.9 fL Critically low 80.0-94.0 [facility] Comment on above: Performed By: #### C VDTBH #### [facility] [address] [place] [address] Dr. Balta Gorman MONO # 1.0 103/ul Critically high 0.3-0.8 [facility] Comment on above: Performed By: #### C VDTBH #### [facility] [address] [place] [address] Dr. Balta Gorman Monocytes/100 WBC (Bld) 13.8 % Critically high 1.7-12.0 [facility] Comment on above: Performed By: #### C VDTBH #### [facility] [address] [place] [address] Dr. Balta Gorman NEUT # 3.9 103/ul Normal 1.4-6.5 [facility] Comment on above: Performed By: #### C VDTBH #### [facility] [address] [place] [address] Dr. Balta Gorman Neutrophils/100 WBC (Bld) 54.7 % Normal 43.0-75.0 [facility] Comment on above: Performed By: #### C VDTBH #### [facility] [address] [address] [address] Balta Gorman Platelet mean volume (Bld) [Entitic vol] 10.5 fL Normal 9.5-13.5 [facility] Comment on above: Performed By: #### C VDTBH #### [facility] [address] [address] [address] Balta Gorman PLT 271 103/ul Normal 150-450 [facility] Comment on above: Performed By: #### C VDTBH #### [facility] [address] [address] [address] Balta Gorman RBC 4.64 106/ul Critically low 4.70-6.10 [facility] Comment on above: Performed By: #### C VDTBH #### [facility] [address] [address] [address] Balta Gorman WBC 7.2 103/ul Normal 4.0-11.0 [facility] Comment on above: Performed By: #### C VDTBH #### [facility] [address] [address] [address] Balta Gorman GLYCOHEMOGLOBIN A1Con 2021 ADA RECOMMENDATION SEE BELOW Normal [facility] Comment on above: Result Comment: ADA RECOMMENDED LIMIT 4.0 - 6.0 ADA THERAPEUTIC TARGET < 7.0 ACTION SUGGESTED > 7.0 Performed By: #### A 1C #### [facility] [address] [address] [address] Balta Gorman Glucose [Mass/Vol] 177 mg/dL Normal [facility] Comment on above: Performed By: #### A 1C #### [facility] [address] [address] [address] Balta Gorman HbA1c (Bld) [Mass fraction] 7.8 % Critically high 4.5-6.2 [facility] Comment on above: Performed By: #### A 1C #### [facility] [address] [address] [address] Balta Gorman GRAM STAINon 03-23-2022 COMMENTS NO ORGANISMS OBSERVED Normal [facility] Comment on above: Performed By: #### A FB #### [facility] [address] [address] [address] Balta Gorman DIPHTHEROIDS Normal [facility] Comment on above: Performed By: #### A FB #### [facility] [address] [address] [address] Balta Gorman EPITHELIALS Normal [facility] Comment on above: Performed By: #### A FB #### [facility] [address] [address] [address] Balta Gorman FUNGAL ELEMENTS Normal [facility] Comment on above: Performed By: #### A FB #### [facility] [address] [place] [address] Dr. Balta Gorman GRAM NEG BACILLI [facility] Comment on above: Performed By: #### A FB #### [facility] [address] [place] [address] Dr. Balta CAVAZOS NEG DIPPLOCOCCI [facility] Comment on above: Performed By: #### A FB #### [facility] [address] [address] [address] Balta Gorman GRAM POS BACILLI Normal [facility] Comment on above: Performed By: #### A FB #### [facility] [address] [place] [address] Dr. Balta Gorman GRAM POSITIVE COCCI Normal [facility] Comment on above: Performed By: #### A FB #### [facility] [address] [address] [address] Balta Gorman GRAM STAIN SOURCE r. 2nd toe bone- pos t irrigation Normal [facility] Comment on above: Performed By: #### A FB #### [facility] [address] [place] [address] Dr. Balta Gorman GS_DIPTH [facility] Comment on above: Performed By: #### A FB #### [facility] [address] [place] [address] Dr. Balta Gorman WBC RARE Normal [facility] Comment on above: Performed By: #### A FB #### [facility] [address] [address] [address] Balta Gorman POINT OF CARE GLUCOSEon 03-05 Glucose [Mass/Vol] 209 mg/dL Critically high [address] [place] [address] Comment on above: Performed By: #### A FB #### [facility] [address] [address] [address] Balta Gorman Glucose [Mass/Vol] 203 mg/dL Critically high -106 [facility] Comment on above: Performed By: #### P OCGLUC #### [facility] [address] [address] [address] Balta Gorman Glucose [Mass/Vol] 119 mg/dL Critically high [address] [place] [address] Comment on above: Performed By: #### A FB #### [facility] [address] [place] [address] Dr. Balta Gorman Glucose [Mass/Vol] 115 mg/dL Critically high [address] [place] [address] Comment on above: Performed By: #### A FB #### [facility] [address] [address] [address] Balta Gorman PROF CHEM 8 (BAS METB)on Anion gap [Moles/Vol] 12.2 mmol/L Normal [facility] Comment on above: Performed By: #### A FB #### [facility] [address] [address] [address] Balta Gorman Calcium [Mass/Vol] 8.1 mg/dL Critically low 8.5-10.1 [facility] Comment on above: Performed By: #### A FB #### [facility] [address] [address] [address] Balta Gorman Chloride [Moles/Vol] 104 mmol/L Normal 98-107 [facility] Comment on above: Performed By: #### A FB #### [facility] [address] [address] [address] Balta Gorman CO2 [Moles/Vol] 24.5 mmol/L Normal 21.0-32.0 [facility] Comment on above: Performed By: #### A FB #### [facility] [address] [address] [address] Balta Gorman Creatinine [Mass/Vol] 1.06 mg/dL Normal 0.70-1.30 [facility] Comment on above: Performed By: #### A FB #### [facility] [address] [place] [address] Dr. Balta Gorman EGFR-AF CONGOLESE >60 Normal >=60 [facility] Comment on above: Performed By: #### A FB #### [facility] [address] [address] [address] Balta Gorman EGFR-NON AF CONGOLESE >60 Normal >=60 [facility] Comment on above: Performed By: #### A FB #### [facility] [address] [place] [address] Dr. Balta Gorman Glucose [Mass/Vol] 110 mg/dL Critically high 74-[address] [facility] Comment on above: Performed By: #### A FB #### [facility] [address] [place] [address] Dr. Balta Gorman Potassium [Moles/Vol] 3.7 mmol/L Normal 3.5-5.1 [facility] Comment on above: Performed By: #### A FB #### [facility] [address] [place] [address] Dr. Balta Gorman Sodium [Moles/Vol] 137 mmol/L Normal 136-145 [facility] Comment on above: Performed By: #### A FB #### [facility] [address] [place] [address] Dr. Balta Gorman Urea nitrogen [Mass/Vol] 19.0 mg/dL Critically high 7.0-18.0 [facility] Comment on above: Performed By: #### A FB #### [facility] [address] [place] [address] Dr. Balta Gorman Urea nitrogen/Creatinine [Mass ratio] 17.9 mg/mg Normal [facility] Comment on above: Performed By: #### A FB #### [facility] [address] [place] [address] Dr. Balta Gorman PROTIMEon 03-23-2022 INR Coag (PPP) [Relative time] 1.06 {INR} Normal [facility] Comment on above: Performed By: #### P TT, PT ####[facility] [address] [place], [place] [address]DrPaola Gorman INR GUIDELINES SEE BELOW Normal [facility] Comment on above: Result Comment: PORSCHE RED INR: 2.0 - 3.0 CONDITIONS NOT LISTED BELOW 2.5 - 3.5 FOR PROSTHETIC HEART VALVE REPLACEMENT 2.5 - 3.5 RECURRENT THROMBOSIS Performed By: #### P TT, PT ####[facility] [address] [place], [place] [address]DrPaola Gorman PT Coag (PPP) [Time] 11.4 s Normal 9.0-11.6 [facility] Comment on above: Performed By: #### P TT, PT ####[facility] [address] [place], [place] [address]DrPaola Gorman PTTon 03-23-2022 aPTT Coag (Bld) [Time] 33.8 s Normal 22.3-36.2 [facility] Comment on above: Performed By: #### P TT, PT ####[facility] [address] [place], [place] [address]DrPaola Gorman CBC AUTO DIFFon 03-22-2022 BASO # 0.1 103/ul Normal 0.0-0.1 [facility] Comment on above: Performed By: #### C BC ####[facility] [address] [place], [place] [address]DrPaola Gorman Basophils/100 WBC (Bld) 0.9 % Normal 0.2-2.0 [facility] Comment on above: Performed By: #### C BC ####[facility] [address] [place], [place] [address]DrPaola Gorman EO # 0.3 103/ul Normal 0.0-0.7 [facility] Comment on above: Performed By: #### C BC ####[facility] [address] [place] [address]Dr. Balta Gorman Eosinophils/100 WBC (Bld) 3.2 % Normal 0.9-7.0 [facility] Comment on above: Performed By: #### C BC ####[facility] [address] [place], [place] [address]Dr. Balta Gorman Erythrocyte distribution width (RBC) [Ratio] 17.5 % Critically high 11.0-15.0 [facility] Comment on above: Performed By: #### C BC ####[facility] [address] [place], [place] [address]Dr. Balta Gorman Hematocrit (Bld) [Volume fraction] 39.5 % Critically low 42.0-54.0 [facility] Comment on above: Performed By: #### C BC ####[facility] [address] [place], [place] [address]Dr. Balta Gorman Hemoglobin (Bld) [Mass/Vol] 11.6 g/dL Critically low 14.0-18.0 [facility] Comment on above: Performed By: #### C BC ####[facility] [address] [place], [place] [address]Dr. Balta Gorman IG # 0.03 10e3/ul Normal 0.00-0.03 [facility] Comment on above: Performed By: #### C BC ####[facility] [address] [place], [place] [address]Dr. Balta Gorman IG % 0.3 % Normal 0.0-0.5 [facility] Comment on above: Performed By: #### C BC ####[facility] [address] [place], [place] [address]Dr. Balta Gorman LYMPH # 1.6 103/ul Normal 1.2-3.8 [facility] Comment on above: Performed By: #### C BC ####[facility] [address] [place], [place] [address]Dr. Balta Gorman Lymphocytes/100 WBC (Bld) 17.7 % Critically low 20.5-60.0 [facility] Comment on above: Performed By: #### C BC ####[facility] [address] [place] [id number]. Balta Gorman MANUAL DIFF REQ NO Normal [facility] Comment on above: Performed By: #### C BC ####[facility] [address] [place] [address]Dr. Balta Sherif MCH (RBC) [Entitic mass] 22.5 pg Critically low 25.9-34.0 [facility] Comment on above: Performed By: #### C BC ####[facility] [address] [place] [address]Dr. Balta Sherif MCHC (RBC) [Mass/Vol] 29.4 g/dL Critically low 29.9-35.2 [facility] Comment on above: Performed By: #### C BC ####[facility] [address] [place] [address]Dr. Balta Gorman MCV (RBC) [Entitic vol] 76.6 fL Critically low 80.0-94.0 [facility] Comment on above: Performed By: #### C BC ####[facility] [address] [place], [place] [address]Dr. Balta Gorman MONO # 1.0 103/ul Critically high 0.3-0.8 [facility] Comment on above: Performed By: #### C BC ####[facility] [address] [place], [place] [address]Dr. Balta Gorman Monocytes/100 WBC (Bld) 11.0 % Normal 1.7-12.0 [facility] Comment on above: Performed By: #### C BC ####[facility] [address] [place] [address]Dr. Balta Gorman NEUT # 5.9 103/ul Normal 1.4-6.5 [facility] Comment on above: Performed By: #### C BC ####[facility] [address] [place], [place] [address]Dr. Balta Gorman Neutrophils/100 WBC (Bld) 66.9 % Normal 43.0-75.0 [facility] Comment on above: Performed By: #### C BC ####[facility] [address] [place], [place] [address]Gu. Balta Gorman Platelet mean volume (Bld) [Entitic vol] 10.4 fL Normal 9.5-13.5 [facility] Comment on above: Performed By: #### C BC ####[facility] [address] [place], [place] [address]Or. Aurabenja Gorman PLT 319 103/ul Normal 150-450 [facility] Comment on above: Performed By: #### C BC ####[facility] [address] [place], [place] [address]Iv. Balta Gorman RBC 5.16 106/ul Normal 4.70-6.10 [facility] Comment on above: Result Comment: SLIG HT HYPOCHROMIA Performed By: #### C BC ####[facility] [address] [place] [id number]. Balta Gorman WBC 8.8 103/ul Normal 4.0-11.0 [facility] Comment on above: Performed By: #### C BC ####[facility] [address] [place], [place] [address]St. Balta Gorman CULTURE BLOODon 03-22-2022 Microscopic examination of blood, culture Culture Observations: No growth at 5 days. Isolate 1 BC_BA_NA Normal [facility] Comment on above: Performed By: #### C VDTBH #### [facility] [address] [place], [place] [address] Dr. Balta Gorman Microscopic examination of blood, culture Culture Observations: No growth at 5 days. Isolate 1 BC_BA_NA Normal [facility] Comment on above: Performed By: #### C VDTBH #### [facility] [id number] Balta Gorman Covid-19 PCR ([facility])on 03-05 SARS-CoV-2 (COVID-19) RNA DERICK+probe Ql (Unsp spec) Not detected Normal NOT DETECTED [facility] Comment on above: Result Comment: When diagnostic testing is negative, the possibility of a false negative should be considered in the context of a patient's recent exposures and the presence of clinical signs and symptoms consistent with SARS-CoV-2. This test is not yet approved or cleared by the [place] Food and Drug Administration (FDA). This test was developed by [employer], [place], [place]. The performance characteristics of this test were validated by [facility]. The results are not intended to be used as the sole means for clinical diagnosis or patient management decisions. [facility] is authorized under Clinical Laboratory Improvement [...] for this test is supported by the Environmental Protection Inspector of Health and Human Service's declaration that [...] used). Performed By: #### C VDTBH #### [facility] [address] [address] [address] Balta Gorman POINT OF CARE GLUCOSEon 03-05 Glucose [Mass/Vol] 121 mg/dL Critically high 74-106 [facility] Comment on above: Performed By: #### P OCGLUC #### [facility] [address] [address] [address] Batla Gorman Glucose [Mass/Vol] 109 mg/dL Critically high 74-106 [facility] Comment on above: Performed By: #### P OCGLUC #### [facility] [address] [address] [address] Blata Gorman PROF 14(COMP METB)on 022 Albumin [Mass/Vol] 3.5 g/dL Normal 3.4-5.0 [facility] Comment on above: Performed By: #### C MP ####[facility] [address] [place] [address]Dr. Balta Gorman Albumin/Globulin [Mass ratio] 0.8 {ratio} Normal [facility] Comment on above: Performed By: #### C MP ####[facility] [address] [place] [address]Dr. Balta Gorman ALP [Catalytic activity/Vol] 78 U/L Normal 46-116 [facility] Comment on above: Performed By: #### C MP ####[facility] [address] [place], [place] [address]Dr. Balta Sherif ALT [Catalytic activity/Vol] 24 U/L Normal 16-63 [facility] Comment on above: Performed By: #### C MP ####[facility] [address] [place], [place] [address]Dr. Balta Sherif Anion gap [Moles/Vol] 11.9 mmol/L Normal [facility] Comment on above: Performed By: #### C MP ####[facility] [address] [place], [place] [address]Dr. Balta Sherif AST [Catalytic activity/Vol] 16 U/L Normal 15-37 [facility] Comment on above: Performed By: #### C MP ####[facility] [address] [place], [place] [address]Dr. Balta Sherif Bilirubin [Mass/Vol] 0.6 mg/dL Normal 0.2-1.0 [facility] Comment on above: Performed By: #### C MP ####[facility] [address] [place], [place] [address]Dr. Balta Sherif Calcium [Mass/Vol] 8.7 mg/dL Normal 8.5-10.1 [facility] Comment on above: Performed By: #### C MP ####[facility] [address] [place], [place] [address]Dr. Balta Gorman Chloride [Moles/Vol] 104 mmol/L Normal 98-107 [facility] Comment on above: Performed By: #### C MP ####[facility] [address] [place], [place] [address]Dr. Balta Gorman CO2 [Moles/Vol] 28.1 mmol/L Normal 21.0-32.0 [facility] Comment on above: Performed By: #### C MP ####[facility] [address] [place] [id number]. Balta Gorman Creatinine [Mass/Vol] 1.24 mg/dL Normal 0.70-1.30 [facility] Comment on above: Performed By: #### C MP ####[facility] [address] [place] [id number]. Balta Sherif EGFR-AF CONGOLESE >60 Normal >=60 [facility] Comment on above: Performed By: #### C MP ####[facility] [address] [place] [id number]. Balta Sherif EGFR-NON AF CONGOLESE 58 mL/min/1.73m2 Critically low >=60 [facility] Comment on above: Performed By: #### C MP ####[facility] [address] [place] [id number]. Balta Sherif Globulin (S) [Mass/Vol] 4.4 g/dL Normal [facility] Comment on above: Performed By: #### C MP ####[facility] Qiijm[address]shp[address] [place] [id number]. Balta Gorman Glucose [Mass/Vol] 205 mg/dL Critically high 74-106 [facility] Comment on above: Performed By: #### C MP ####[facility] Vuf[address]utb[address] [place] [id number]. Balta Sherif Potassium [Moles/Vol] 4.0 mmol/L Normal 3.5-5.1 [facility] Comment on above: Performed By: #### C MP ####[facility] Bs[address]wkxhq[address] [place] [id number]. Balta Sherif Protein [Mass/Vol] 7.9 g/dL Normal 6.4-8.2 [facility] Comment on above: Performed By: #### C MP ####[facility] Bzldwousfo[address] [place] [id number]. Balta Sherif Sodium [Moles/Vol] 140 mmol/L Normal 136-145 [facility] Comment on above: Performed By: #### C MP ####[facility] [address] [place], [place] [address]Dr. Balta Gorman Urea nitrogen [Mass/Vol] 22.0 mg/dL Critically high 7.0-18.0 [facility] Comment on above: Performed By: #### C MP ####[facility] [address] [place], [place] [address]Dr. Balta Gorman Urea nitrogen/Creatinine [Mass ratio] 17.7 mg/mg Normal [facility] Comment on above: Performed By: #### C MP ####[facility] [address] [place], [place] [address]Dr. Balta Gorman UA (CLEAN/CATCH) SOFTWARE PROGRAM MANAGER/MICRO I F IND.on 03-22-2022 Bilirubin Ql (U) Negative Normal NEGATIVE [facility] Comment on above: Performed By: #### U ACSIND ####[facility] [address] [place], [place] [address]Dr. Balta Gorman Clarity (U) CLEAR Normal CLEAR [facility] Comment on above: Performed By: #### U ACSIND ####[facility] Qbby[address] [place], [place] [address]Dr. Balta Gorman Color (U) LT. YELLOW Normal YELLOW [facility] Comment on above: Performed By: #### U ACSIND ####[facility] [address] [place], [place] [address]Dr. Balta Gorman Glucose Ql (U) >1000 Abnormal NEGATIVE [facility] Comment on above: Performed By: #### U ACSIND ####[facility] [address] [place], [place] [address]Dr. Balta Gorman Hemoglobin Ql (U) Negative Normal NEGATIVE [facility] Comment on above: Performed By: #### U ACSIND ####[facility] [address]qvc[address] [place], [place] [address]Dr. Balta Gorman Ketones Ql (U) Negative Normal NEGATIVE [facility] Comment on above: Performed By: #### U ACSIND ####[facility] M[address]ih[address] [place], [place] [address]Dr. Balta Gorman LEUKOCYTES Negative Normal NEGATIVE [facility] Comment on above: Performed By: #### U ACSIND ####[facility] Um[address] [place] [address]Dr. Balta Gorman Nitrite Ql (U) Negative Normal NEGATIVE [facility] Comment on above: Performed By: #### U ACSIND ####[facility] [address]os[address]fq[address] [place] [address]Dr. Balta Gorman pH (U) 6.0 [pH] Normal 5-9 [facility] Comment on above: Performed By: #### U ACSIND ####[facility] [address] [place] [address]Dr. Balta Gorman SPEC GRAVITY 1.010 Normal 1.005-<=1.02 5 [facility] Comment on above: Performed By: #### U ACSIND ####[facility] [address]nc[address] [place] [address]Dr. Balta Gorman UA PROTEIN Negative Normal NEGATIVE/ TRACE [facility] Comment on above: Performed By: #### U ACSIND ####[facility] [address]ef[address] [place], [place] [address]Dr. Balta Gorman UR MICRO IND NOT INDICATED Normal [facility] Comment on above: Performed By: #### U ACSIND ####[facility] [address]uss[address]fp[address] [place] [address]Dr. Balta Gorman Urobilinogen Qn (U) 0.2 {Jose Luis'U}/dL Normal 0.2 - 1. 0 [facility] Comment on above: Performed By: #### U ACSIND ####[facility] Okrcmtpic[address] [place], [place] [address]Dr. Balta Gorman XR FOOT RT MIN 3 [...] by: HELGA GOLDBERG Date: 2022-03-22 15:21 Normal [facility] Blood Urea Nitrogenon 2021 Urea nitrogen [Mass/Vol] 21 mg/dL Normal - [facility] Comment on above: Performed By: #### P P, LYTES, CBC, BUN, CREAT, LIPID #### [place] [id number] [facility] COVID-19 Antigenon 2 COVID-19 Antigen Healthcare Worker?: [...] developed and its performance characteristic determined by [employer] and validated at [facility]. This test has not been FDA [...] SARS Antigen by JOSE L PERFORMED BY: [place] [address] PATHOLOGIST BENCH WORKER HELPER ERLIN GUPTA M.D. Normal [facility] Comment on above: Performed By: #### S OFIANEG, COVID-19 HERMINIO #### [address] Coagulation Profileon 2021 aPTT Coag (Bld) [Time] 30.4 s Normal 25.1-36.5 [facility] Comment on above: Result Comment: PERF ORMED BY: [place] [address] PATHOLOGIST BENCH WORKER HELPER ERLIN GUPTA M.D. Performed By: #### P P, LYTES, CBC, BUN, CREAT, LIPID #### [address] INR Coag (PPP) [Relative time] 1.1 {INR} Normal [facility] Comment on above: Result Comment: INR [...] P, LYTES, CBC, BUN, CREAT, LIPID #### [facility] [address] [place] [address] PT Coag (PPP) [Time] 12.7 s Normal 9.0-12.[address] [facility] Comment on above: Performed By: #### P P, LYTES, CBC, BUN, CREAT, LIPID #### [facility] [address] Complete Blood Count Auto Di ffon 03-10-2022 Basophils (Bld) [#/Vol] 0.1 10*3/uL Normal 0.0-0.2 [facility] Comment on above: Result Comment: PERF ORMED BY: [place] [address] PATHOLOGIST BENCH WORKER HELPER ERLIN GUPTA M.D. Performed By: #### P P, LYTES, CBC, BUN, CREAT, LIPID #### [address] Basophils/100 WBC (Bld) 1.6 % Normal . [facility] Comment on above: Performed By: #### P P, LYTES, CBC, BUN, CREAT, LIPID #### [address] Eosinophils (Bld) [#/Vol] 0.2 10*3/uL Normal 0.0-0.45 [facility] Comment on above: Performed By: #### P P, LYTES, CBC, BUN, CREAT, LIPID #### [address] Eosinophils/100 WBC (Bld) 3.4 % Normal . [facility] Comment on above: Performed By: #### P P, LYTES, CBC, BUN, CREAT, LIPID #### [address] Erythrocyte distribution width (RBC) [Ratio] 17.0 % High 12.0-14.8 [facility] Comment on above: Performed By: #### P P, LYTES, CBC, BUN, CREAT, LIPID #### [address] Hematocrit (Bld) [Volume fraction] 38.9 % Normal 38.8-50.0 [facility] Comment on above: Performed By: #### P P, LYTES, CBC, BUN, CREAT, LIPID #### [place] [address] [place] Hemoglobin (Bld) [Mass/Vol] 12.4 g/dL Low 13.0-17.0 [facility] Comment on above: Performed By: #### P P, LYTES, CBC, BUN, CREAT, LIPID #### [address] Lymphocytes (Bld) [#/Vol] 1.6 10*3/uL Normal 1.00-4.8 [facility] Comment on above: Performed By: #### P P, LYTES, CBC, BUN, CREAT, LIPID #### [address] Lymphocytes/100 WBC (Bld) 25.1 % Normal . [facility] Comment on above: Performed By: #### P P, LYTES, CBC, BUN, CREAT, LIPID #### [address] MCH (RBC) [Entitic mass] 22.6 pg Low 27.5-35.2 [facility] Comment on above: Performed By: #### P P, LYTES, CBC, BUN, CREAT, LIPID #### [address] MCV (RBC) [Entitic vol] 70.8 fL Low 83.5-101 [facility] Comment on above: Performed By: #### P P, LYTES, CBC, BUN, CREAT, LIPID #### [address] Mean Corpuscular HGB Conc 31.9 g/dL Low 32.5-35.6 [facility] Comment on above: Performed By: #### P P, LYTES, CBC, BUN, CREAT, LIPID #### [address] Monocytes (Bld) [#/Vol] 0.7 10*3/uL Normal 0.0-0.8 [facility] Comment on above: Performed By: #### P P, LYTES, CBC, BUN, CREAT, LIPID #### [address] Monocytes/100 WBC (Bld) 10.2 % Normal . [facility] Comment on above: Performed By: #### P P, LYTES, CBC, BUN, CREAT, LIPID #### [address] Neutrophils (Bld) [#/Vol] 3.8 10*3/uL Normal 1.8-7.7 [facility] Comment on above: Performed By: #### P P, LYTES, CBC, BUN, CREAT, LIPID #### [address] Neutrophils/100 WBC (Bld) 59.7 % Normal . [facility] Comment on above: Performed By: #### P P, LYTES, CBC, BUN, CREAT, LIPID #### [address] Nucleated RBC/100 WBC (Bld) [Ratio] 0.1 % Normal 0-0.5 [facility] Comment on above: Performed By: #### P P, LYTES, CBC, BUN, CREAT, LIPID #### [address] Platelet mean volume (Bld) [Entitic vol] 8.6 fL Normal 6.6-10.1 [facility] Comment on above: Performed By: #### P P, LYTES, CBC, BUN, CREAT, LIPID #### [place] [address] [place] Platelets (Bld) [#/Vol] 270 10*3/uL Normal 150-450 [facility] Comment on above: Performed By: #### P P, LYTES, CBC, BUN, CREAT, LIPID #### [place] [address] [place] RBC (Bld) [#/Vol] 5.49 10*6/uL Normal 3.90-5.60 [facility] Comment on above: Performed By: #### P P, LYTES, CBC, BUN, CREAT, LIPID #### [address] [place] [address] [place] WBC (Bld) [#/Vol] 6.4 10*3/uL Normal 4.5-11.0 [facility] Comment on above: Performed By: #### P P, LYTES, CBC, BUN, CREAT, LIPID #### [address] Creatinineon 03-10-2022 Creatinine [Mass/Vol] 1.01 mg/dL Normal 0.64-1.27 [facility] Comment on above: Performed By: #### P P, LYTES, CBC, BUN, CREAT, LIPID #### [address] Estimated GFR ( Raegan > 60 Normal [facility] Comment on above: Result Comment: GFR estimated reference range: According to KDOQI guidelines, <60 ml/min/1.73m2 is sufficient to diagnose a patient with chronic kidney disease. Performed By: #### P P, LYTES, CBC, BUN, CREAT, LIPID #### [address] Estimated GFR (Non- Am > 60 Normal [facility] Comment on above: Performed By: #### P P, LYTES, CBC, BUN, CREAT, LIPID #### [address] ECG 12 lead ECGon 03-10-2022 ECG 12 lead ECG [facility] [place] [address] Electrocardiograph Report Signed Patient: Janice Pandya Jr MR#: [id number] : 1955 Acct:[id number] Age/Sex: 67 / M ADM Date: 03/10/22 Loc: Room: Type: [facility] Attending Dr: Margaux Christian MD Ordering Provider: [...] are now present Confirmed by INDIA PEREIRA [facility], ERIKA ([id number]) on 03/10/2022 10:04:07 AM Referred By: LATESHA CHRISTIAN Electronically Signed By:ERIKA CARRION MD [facility] Transcribed By: MUS Signed By Erika Carrion MD, [facility] 03/10/22 1004 Normal [facility] Electrolyteson 03-10-2022 Chloride [Moles/Vol] 105 mmol/L Normal 95-[address] [facility] Comment on above: Performed By: #### P P, LYTES, CBC, BUN, CREAT, LIPID #### [address] CO2 [Moles/Vol] 22.9 mmol/L Normal 22.0-30.0 [facility] Comment on above: Performed By: #### P P, LYTES, CBC, BUN, CREAT, LIPID #### [address] Potassium [Moles/Vol] 4.3 mmol/L Normal 3.5-5.1 [facility] Comment on above: Performed By: #### P P, LYTES, CBC, BUN, CREAT, LIPID #### [address] Sodium [Moles/Vol] 137 mmol/L Normal 136-146 [facility] Comment on above: Performed By: #### P P, LYTES, CBC, BUN, CREAT, LIPID #### [address] Laboratory - Chemistry and C hemistry - challengeon 03-10-2022 Cholesterol [Mass/Vol] 167\S\167 Normal 140-200 -[facility] 600 DO Work Phone: Comment on above: Chol less than 200 m g/dl low risk Chol 201-239 mg/dl borderline risk Chol 240 mg/dl and greater high risk Cholesterol in LDL [Mass/Vol] 80\S\80 Normal 0-100 [facility] 600 DO Work Phone: Comment on above: LDL ATP III CLASSIFI CATION LDL less than 100 mg/dL Optimal LDL 100-129 mg/dL Near or above optimal LDL 130-159 mg/dL Borderline high LDL 160-189 mg/dL High LDL greater than 189 mg/dL Very high Laboratory - Microbiology an d Antimicrobial susceptibilityon 03-10-2022 SARS-CoV-2 (COVID-19) RNA DERICK+probe Ql (Unsp spec) [facility] 600 DO Work Phone: Lipid Panelon 03-10-2022 Cholesterol [Mass/Vol] 167 mg/dL Normal 140-200 [facility] Comment on above: Result Comment: Chol less than 200 mg/dl low risk Chol 201-239 mg/dl borderline risk Chol 240 mg/dl and greater high risk Performed By: #### P P, LYTES, CBC, BUN, CREAT, LIPID #### [facility] [address] [place] [address] Cholesterol in HDL [Mass/Vol] 21 mg/dL Low 29-71 [facility] Comment on above: Result Comment: HDL CHOL ATP-III CLASSIFICATION Cardiovascular Risk HDL > or equal to 60 mg/dL LOW HDL < 40 mg/dL HIGH Performed By: #### P P, LYTES, CBC, BUN, CREAT, LIPID #### [facility] [address] [place] [address] Cholesterol.total/Ch olesterol in HDL [Mass ratio] 8.0 {ratio} Normal <5.0 [facility] Comment on above: Result Comment: PERF ORMED BY: [place] [address] PATHOLOGIST BENCH WORKER HELPER ERLIN GUPTA M.D. Performed By: #### P P, LYTES, CBC, BUN, CREAT, LIPID #### [facility] [address] [place] [address] LDL Cholesterol,Calculat ed 80 mg/dL Normal 0-100 [facility] Comment on above: Result Comment: LDL ATP III CLASSIFICATION LDL less than 100 mg/dL Optimal LDL 100-129 mg/dL Near or above optimal LDL 130-159 mg/dL Borderline high LDL 160-189 mg/dL High LDL greater than 189 mg/dL Very high Performed By: #### P P, LYTES, CBC, BUN, CREAT, LIPID #### [facility] [address] Triglyceride w/Reflex 328 mg/dL High 35-149 [facility] Comment on above: Result Comment: TRIG ATP III CLASSIFICATION TRIG less than 150 mg/dL Normal TRIG 150-199 mg/dL Borderline high TRIG 200-500 mg/dL High TRIG greater than 500 mg/dL Very high Standard traceable to the Center for Disease Conrtrol and Prevention (CDC) test method. Performed By: #### P P, LYTES, CBC, BUN, CREAT, LIPID #### [facility] [address] VLDL CHOLESTEROL 65 mg/dL Normal [facility] Comment on above: Performed By: #### P P, LYTES, CBC, BUN, CREAT, LIPID #### [facility] [address] No Panel Informationon 03-10 0.1\S\0.1 Normal 0-0.5 [facility] [employer] DO Work Phone: Comment on above: PERFORMED BY:[facility] [place] [address] [phone] MEDICAL DIRECTORERLIN GUPTA M.D. 0.2\S\0.2 Normal 0.0-0.45 [facility] [employer] DO Work Phone: 0.7\S\0.7 Normal 0.0-0.8 [facility] [employer] 600 DO Work Phone: 1.6\S\1.6 Normal . [facility] [employer] 600 DO Work Phone: 3.8\S\3.8 Normal 1.8-7.7 -[facility] 600 DO Work Phone: 3.4\S\3.4 Normal . [facility] 600 DO Work Phone: 10.2\S\10.2 Normal . [facility] 600 DO Work Phone: 25.1\S\25.1 Normal . [facility] 600 DO Work Phone: 59.7\S\59.7 Normal . [facility] 600 DO Work Phone: 8.6\S\8.6 Normal 6.6-10.1 [facility] 600 DO Work Phone: 270\S\270 Normal 150-450 [facility] 600 DO Work Phone: 17.0\S\17.0 above high threshold 12.0-14.8 [facility] 600 DO Work Phone: 31.9\S\31.9 below low threshold 32.5-35.6 [facility] 600 DO Work Phone: 22.6\S\22.6 below low threshold 27.5-35.2 [facility] 600 DO Work Phone: 70.8\S\70.8 below low threshold 83.5-101 [facility] 600 DO Work Phone: 38.9\S\38.9 Normal 38.8-50.0 [facility] 600 DO Work Phone: 12.4\S\12.4 below low threshold 13.0-17.0 [facility] 600 DO Work Phone: 5.49\S\5.49 Normal 3.90-5.60 [facility] 600 DO Work Phone: 6.4\S\6.4 Normal 4.1-10.5 [facility] 600 DO Work Phone: 30.4\S\30.4 Normal 25.1-36.5 [facility] 600 DO Work Phone: Comment on above: PERFORMED BY:[facility] [place], [place] [phone] MEDICAL DIRECTORERLIN GUPTA M.D. 1.1\S\1.1 Normal [facility] 600 DO Work Phone: Comment on above: [...] valves: 3 - 4.5 12.7\S\12.7 Normal 9.0-12.9 [facility] 600 DO Work Phone: Negative Normal Negative [facility] 600 DO Work Phone: Comment on above: This is a duplicate Herminio SARS Antigen (JOSE L) result to be used for statistical tracking purpose only.PERFORMED BY:[facility] [place], [place] [phone] MEDICAL DIRECTORERLIN GUPTA M.D. 22.9\S\22.9 Normal 22.0-30.0 [facility] 600 DO Work Phone: 105\S\105 Normal 95-114 [facility] 600 DO Work Phone: 4.3\S\4.3 Normal 3.5-5.1 [facility] 600 DO Work Phone: 137\S\137 Normal 136-146 [place] [address] DO Work Phone: 21\S\21 below low threshold 29-71 [place] [address] DO Work Phone: Comment on above: HDL CHOL ATP-III CLA SSIFICATION Cardiovascular Risk HDL > or equal to 60 mg/dL LOW HDL < 40 mg/dL HIGH > 60 Normal [place] [address] DO Work Phone: Comment on above: GFR estimated refere nce range: According to KDOQI guidelines, <60 ml/min/1.73m2 is sufficient to diagnose a patient with chronic kidney disease. 1.01\S\1.01 Normal 0.64-1.27 [place] [address] DO Work Phone: 8.0\S\8.0 Normal <5.0 [place] [address] DO Work Phone: Comment on above: PERFORMED BY:[facility] [place], [place] [phone] MEDICAL DIRECTORERLIN GUPTA M.D. 65\S\65 Normal [place] [address] DO Work Phone: 328\S\328 above high threshold 35-149 [place] [address] DO Work Phone: Comment on above: TRIG ATP III CLASSIF ICATION TRIG less than 150 mg/dL Normal TRIG 150-199 mg/dL Borderline high TRIG 200-500 mg/dL High TRIG greater than 500 mg/dL Very high Standard traceable to the Center for Disease Conrtrol and Prevention (CDC) test method. Herminio Ag Negativeon 03-10-20 22 Herminio Ag Negative Negative Normal Negative [facility] Comment on above: Result Comment: This is a duplicate Herminio SARS Antigen (JOSE L) result to be used for statistical tracking purpose only. PERFORMED BY: [facility] [address] [place] [address] PATHOLOGIST BENCH WORKER HELPER ERLIN GUPTA M.D. Performed By: #### S PADMINI CHAU-19 HERMINIO #### [facility] [address] CARDIAC STRESS/REST INJE CTIONon 03-01-2022 [facility] CARDIAC STRESS/REST INJECTION Patient Name: JANICE PANDYA STUDY: MYOCARDIAL PERFUSION STRESS TEST WITH LEXISCAN Performing facility: [facility], [address] [place] [address], [address] Provider: Helga Flores DO, [facility] PCP: Dr. Vineet Martin Supervising provider: Ratna Queen DO, [facility] INDICATION: Angina CAD; S/P PTCA HISTORY: Gender: M; Age: 67 y/o ; Height: 185.42 cm; Weight: 106.071750 kg. High Cholesterol; CAD; Diabetes; HTN; Chest Pain; Denies smoking. Cardiac catheterization on 2021. PTCA on 2021. CABG on 1992. COMPARISON: Previous nuclear testing completed at [facility]. ACCESSION NUMBER(S): [id number]; [id number]; [id number] ORDERING CLINICIAN: HELGA FLORES TECHNIQUE: ONE DAY [...] ischemia is new. Electronically signed by: MARGAUX CHRISTIAN MD Normal [facility] No Panel Informationon 03-01 Normal -[facility] 250 DO Work Phone: Complete Blood Count with Au to Diffon 01-23-2022 Basophils (Bld) [#/Vol] 0.08 10*3/uL Normal 0.00-0.20 [facility] Specialist Comment on above: Performed By: #### C BCAD #### [facility] [address] [place], [place] [id number] Basophils/100 WBC (Bld) 1.1 % Normal [facility] Comment on above: Performed By: #### C BCAD #### [facility] [address] [place], [place] [id number] Eosinophils (Bld) [#/Vol] 0.29 10*3/uL Normal 0.02-0.50 [facility] Comment on above: Performed By: #### C BCAD #### [facility] [address] [place], [place] [id number] Eosinophils/100 WBC (Bld) 4.1 % Normal [facility] Comment on above: Performed By: #### C BCAD #### [facility] [address] [place], [place] [id number] Erythrocyte distribution width (RBC) [Ratio] 17.6 % High 11.0-15.0 [facility] Comment on above: Performed By: #### C BCAD #### [facility] [address] [place], [place] [id number] Hematocrit (Bld) [Volume fraction] 41.0 % Normal 38.5-50.0 [facility] Specialist Comment on above: Performed By: #### C BCAD #### [facility] [address] [place], [place] [id number] Hemoglobin (Bld) [Mass/Vol] 11.9 g/dL Low 13.0-17.1 [facility] Specialist Comment on above: Performed By: #### C BCAD #### [facility] [address] [place], [place] [id number] Lymphocytes (Bld) [#/Vol] 1.8 10*3/uL Normal 0.9-3.9 [facility] Specialist Comment on above: Performed By: #### C BCAD #### [facility] [address] [place], [place] [id number] Lymphocytes/100 WBC (Bld) 25.1 % Normal [facility] Specialist Comment on above: Performed By: #### C BCAD #### [facility] [address] [place], [place] [id number] MCH (RBC) [Entitic mass] 21.9 pg Low 27.0-33.0 [facility] Specialist Comment on above: Performed By: #### C BCAD #### [facility] [address] [place], [place] [id number] MCHC (RBC) [Mass/Vol] 29.0 g/dL Low 32.0-36.0 [facility] Specialist Comment on above: Performed By: #### C BCAD #### [facility] [address] [place], [place] [id number] MCV (RBC) [Entitic vol] 76 fL Low 80-100 [facility] Specialist Comment on above: Performed By: #### C BCAD #### [facility] [address] [place], [place] [id number] Monocytes (Bld) [#/Vol] 0.7 10*3/uL Normal 0.2-0.9 [facility] Specialist Comment on above: Performed By: #### C BCAD #### [facility] [address] [place], [place] [id number] Monocytes/100 WBC (Bld) 9.3 % Normal [facility] Comment on above: Performed By: #### C BCAD #### [facility] [address], [place] [id number] Neutrophils (Bld) [#/Vol] 4.3 10*3/uL Normal 1.5-7.8 [facility] Comment on above: Performed By: #### C BCAD #### [facility] [address] [place], [place] [id number] Neutrophils/100 WBC (Bld) 60.0 % Normal [facility] Comment on above: Performed By: #### C BCAD #### [facility] [address], [place] [id number] Platelet mean volume (Bld) [Entitic vol] 10.50 fL Normal 7.50-12.50 [facility] Comment on above: Performed By: #### C BCAD #### [facility] [address] [place], [place] [id number] Platelets (Bld) [#/Vol] 306 10*3/uL Normal 140-400 [facility] Comment on above: Performed By: #### C BCAD #### [facility] [address] [place], [place] [id number] RBC (Bld) [#/Vol] 5.43 10*6/uL Normal 4.20-5.80 [facility] Comment on above: Performed By: #### C BCAD #### [facility] [address], [place] [id number] RDW-SD 46.0 fL Normal 37.0-50.0 [facility] Comment on above: Performed By: #### C BCAD #### [facility] [address] [place] [id number] WBC (Bld) [#/Vol] 7.1 10*3/uL Normal 3.8-11.0 [facility] Comment on above: Performed By: #### C BCAD #### [facility] [address], [place] [id number] Hemoglobin A1Con 01-23-2022 EAG 182.90 Normal [facility] Comment on above: Performed By: #### A 1C #### [facility] [address], [place] [id number] HbA1c (Bld) [Mass fraction] 8.0 % High 4.0-6.0 [facility] Specialist Comment on above: Performed By: #### A 1C #### [facility] [address], [place] [id number] Lipid Panelon 01-23-2022 Cholesterol [Mass/Vol] 177 mg/dL Normal 125-200 [facility] Specialist Comment on above: Result Comment: Low risk < 200mg/dL Borderline risk 201-239 mg/dl High risk > or equal to 240 Performed By: #### L IPD #### [facility] [address], [place] [id number] Cholesterol in HDL [Mass/Vol] 25 mg/dL Low >40 [facility] Specialist Comment on above: Result Comment: High Cardiovascular Risk HDL <40 mg/dL Low Cardiovascular Risk HDL > or equal to 60 mg/dl Performed By: #### L IPD #### [facility] [address], [place] [id number] Cholesterol in LDL [Mass/Vol] 83 mg/dL Normal [facility] Specialist Comment on above: Result Comment: LDL ATP III CLASSIFICATION LDL less than 100 mg/dl Optimal LDL 100-129 mg/dl Near or above optimal LDL 130-159 Borderline high LDL 160-189 High LDL greater than 189 mg/dl Very High Performed By: #### L IPD #### [facility] [address], [place] [id number] Cholesterol in VLDL [Mass/Vol] 69 mg/dL Normal [facility] Specialist Comment on above: Performed By: #### L IPD #### [facility] [address], [place] [id number] Cholesterol.total/Ch olesterol in HDL [Mass ratio] 7 {ratio} Normal [facility] Specialist Comment on above: Performed By: #### L IPD #### [facility] [address], [place] [id number] Triglyceride [Mass/Vol] 343 mg/dL High 30-150 [facility] Professional Driver Comment on above: Result Comment: TRIG ATPIII CLASSIFICATIONS TRIG less than 150 mg/dl Normal TRIG 150-199 mg/dl Borderline High TRIG 200-500 mg/dl High TRIG greather than 500 mg/dl Very High Performed By: #### L IPD #### [facility] [address], [place] [id number] PSA SCREEN (MEDICARE)on 01-04 TPSA 0.405 ng/mL Normal <4.000 [facility] Professional Driver Comment on above: Result Comment: PSA Test Method: ECLIA/Joseph e 601 Performed By: #### P SA #### [facility] [address], [place] [id number] Tobacco Screening.on 022 Fall risk assessment a) No falls within the last year [facility] [employer] DO Work Phone: Tobacco use status CPHS b) No [place] [address] DO Work Phone: Laboratory - Chemistry and C hemistry - challengeon 11-07-2021 Cholesterol [Mass/Vol] 183\S\183 Normal 140-200 [facility] [employer] DO Work Phone: Comment on above: Chol less than 200 m g/dl low risk Chol 201-239 mg/dl borderline risk Chol 240 mg/dl and greater high risk Cholesterol in LDL [Mass/Vol] 97\S\97 Normal 0-100 [place] [address] DO Work Phone: Comment on above: LDL ATP III CLASSIFI CATION LDL less than 100 mg/dL Optimal LDL 100-129 mg/dL Near or above optimal LDL 130-159 mg/dL Borderline high LDL 160-189 mg/dL High LDL greater than 189 mg/dL Very high Laboratory - Microbiology an d Antimicrobial susceptibilityon 11-07-2021 SARS-CoV-2 (COVID-19) RNA DERICK+probe Ql (Unsp spec) [facility] [employer] DO Work Phone: No Panel Informationon 11-07 56.2\S\56.2 Normal . [place] [address] DO Work Phone: 8.5\S\8.5 Normal 6.6-10.1 [facility] DO Work Phone: 279\S\279 Normal 150-450 [facility] 250 DO Work Phone: 16.0\S\16.0 above high threshold 12.0-14.8 [facility] DO Work Phone: 31.3\S\31.3 below low threshold 32.5-35.6 [facility] DO Work Phone: 22.7\S\22.7 below low threshold 27.5-35.2 [facility] [facility] DO Work Phone: 3.5\S\3.5 Normal 1.8-7.7 [facility] DO Work Phone: 0.1\S\0.1 Normal 0.0-0.2 [facility] DO Work Phone: Comment on above: PERFORMED BY:[place] [address] [address] [place], [place] [id number] MEDICAL DIRECTORERLIN GUPTA M.D. 1.4\S\1.4 Normal . [facility] DO Work Phone: 4.0\S\4.0 Normal . [facility] DO Work Phone: 10.2\S\10.2 Normal . [facility] DO Work Phone: 28.2\S\28.2 Normal . [facility] DO Work Phone: 0.2\S\0.2 Normal 0.0-0.45 [facility] DO Work Phone: 0.6\S\0.6 Normal 0.0-0.8 [facility] DO Work Phone: 1.7\S\1.7 Normal 1.00-4.8 [facility] DO Work Phone: 72.3\S\72.3 below low threshold 83.5-101 [facility] DO Work Phone: 39.8\S\39.8 Normal 38.8-50.0 [facility] DO Work Phone: 12.5\S\12.5 below low threshold 13.0-17.0 [facility] DO Work Phone: 5.50\S\5.50 Normal 3.90-5.60 [facility] DO Work Phone: 6.2\S\6.2 Normal 4.1-10.5 [facility] DO Work Phone: 34.4\S\34.4 Normal 25.1-36.5 [facility] DO Work Phone: Comment on above: PERFORMED BY:[place] [address] [address] [place], [place] [id number] MEDICAL DIRECTORERLIN GUPTA M.D. 1.1\S\1.[address] [facility] 250 DO Work Phone: Comment on above: [...] valves: 3 - 4.5 12.2\S\12.2 Normal 9.0-12.9 [facility] [facility] DO Work Phone: Negative Normal Negative [facility] DO Work Phone: Comment on above: This is a duplicate Herminio SARS Antigen (JOSE L) result to be used for statistical tracking purpose only.PERFORMED BY:[facility] [place] [id number] MEDICAL DIRECTORVALLEY [facility] ALONSO Garner 24.2\S\24.2 Normal 22.0-30.0 [facility] DO Work Phone: 101\S\101 Normal 95-114 [facility] DO Work Phone: 4.5\S\4.5 Normal 3.5-5.1 [facility] DO Work Phone: 139\S\139 Normal 136-146 [facility] DO Work Phone: 23\S\23 Normal 9-23 [facility] [facility] DO Work Phone: > 60 Normal -[facility] [facility] DO Work Phone: Comment on above: GFR estimated refere nce range: According to KDOQI guidelines, <60 ml/min/1.73m2 is sufficient to diagnose a patient with chronic kidney disease. 1.14\S\1.14 Normal 0.64-1.27 [facility] DO Work Phone: 9.2\S\9.2 Normal <5.0 [facility] [facility] DO Work Phone: Comment on above: PERFORMED BY:[facility] [place] [id number] MEDICAL DIRECTORERLIN GUPTA M.D. 66\S\65 Normal [facility] DO Work Phone: 329\S\329 above high threshold 35-149 -[facility] [facility] DO Work Phone: Comment on above: TRIG ATP III CLASSIF ICATION TRIG less than 150 mg/dL Normal TRIG 150-199 mg/dL Borderline high TRIG 200-500 mg/dL High TRIG greater than 500 mg/dL Very high Standard traceable to the Center for Disease Conrtrol and Prevention (CDC) test method. 20\S\20 below low threshold 29-71 [facility] DO Work Phone: Comment on above: HDL CHOL ATP-III CLA SSIFICATION Cardiovascular Risk HDL > or equal to 60 mg/dL LOW HDL < 40 mg/dL HIGH [facility] CARDIAC STRESS/REST INJE CTIONon 10-12-2021 [facility] CARDIAC STRESS/REST INJECTION Patient Name: JANICE PANDYA STUDY: MYOCARDIAL PERFUSION STRESS TEST WITH LEXISCAN Performing facility: [facility], [address] [place] [address], [address] Provider: Helga Flores DO, [facility] PCP: Dr. Vineet Martin Supervising provider: [facility]ion [facility] INDICATION: CAD; HISTORY: Gender: M; Age: 66 y/o ; Height: 185.42 cm; Weight: 106.590136 kg. High Cholesterol; CAD; Diabetes; HTN; Chest Pain; Denies smoking. Cardiac catheterization on 2014. PTCA on 2014. COMPARISON: Previous nuclear testing completed at [facility]. ACCESSION NUMBER(S): [id number]; [id number]; [id number] ORDERING CLINICIAN: HELGA FLORES TECHNIQUE: ONE DAY [...] Electronically signed by: ERIKA CARRION MD Normal [facility] No Panel Informationon 10-12 Normal [facility] 600 DO Work Phone: Quick Strepon 10-10-2021 S. pyogenes Org specific cx Ql (Throat) Negative [employer] Other Quick Strep [facility] Other Tobacco Screening.on 021 Fall risk assessment a) No falls within the last year [facility] [facility] DO Work Phone: Tobacco use status CPHS b) No [facility] DO Work Phone: Vital Signs Date Time Vital Sign Value Performing Clinician Facility 12-04-2024 11:36-0500 Body height 185.4 cm Joyce Ramsey Work Phone: [facility] 12-04-2024 11:36-0500 Body mass index (BMI) [Ratio] 28.23 kg/m2 Joyce Ramsey [employer] INSPECTOR Work Phone: [facility] 12-04-2024 11:36-0500 Body temperature 98.01 [degF] Joyce Ramsey [employer] FRAMES INSPECTOR Work Phone: [facility] 12-04-2024 11:36-0500 Body weight 97.07 kg Joyce Ramsey [employer]AMES INSPECTOR Work Phone: [facility] 12-04-2024 11:36-0500 Diastolic blood pressure 78 mm[Hg] Joyce Ramsey [employer] FRAMES INSPECTOR Work Phone: [facility] 12-04-2024 11:36-0500 Heart rate 62 /min Joyce Ramsey [employer] INSPECTOR Work Phone: [facility] 12-04-2024 11:36-0500 SaO2% (BldA) [Mass fraction] 99 % Joyce Ramsey [employer] FRAMES INSPECTOR Work Phone: [facility] 12-04-2024 11:36-0500 Systolic blood pressure 120 mm[Hg] Joyce Ramsey HANDB[employer] FRAMES INSPECTOR Work Phone: [facility] 12-01-2024 09:09-0500 Body height 185.4 cm Lashaun Petznick DO Work Phone: [facility] 12-01-2024 09:09-0500 Body mass index (BMI) [Ratio] 28.5 kg/m2 Lashaun Petznick DO Work Phone: [facility] 12-01-2024 09:09-0500 Body temperature 98.29 [degF] Lashaun Petznick DO Work Phone: [facility] 12-01-2024 09:09-0500 Body weight 97.98 kg Lashaun Petznick DO Work Phone: [facility] 12-01-2024 09:09-0500 Diastolic blood pressure 82 mm[Hg] Lashaun Petznick DO Work Phone: [facility] 12-01-2024 09:09-0500 Heart rate 83 /min Lashaun Petznick DO Work Phone: [facility] 12-01-2024 09:09-0500 SaO2% (BldA) [Mass fraction] 96 % Lashaun Petznick DO Work Phone: [facility] 12-01-2024 09:09-0500 Systolic blood pressure 140 mm[Hg] Lashaun Petznick DO Work Phone: [facility] 09-01-2024 09:14-0400 Body height 185.4 cm Lashaun Petznick DO Work Phone: [facility] 09-01-2024 09:14-0400 Body mass index (BMI) [Ratio] 29.5 kg/m2 Lashaun Petznick DO Work Phone: [facility] 09-01-2024 09:14-0400 Body temperature 96.6 [degF] Lashaun Petznick DO Work Phone: [facility] 09-01-2024 09:14-0400 Body weight 101.42 kg Lashaun Petznick DO Work Phone: [facility] 09-01-2024 09:14-0400 Diastolic blood pressure 72 mm[Hg] Lashaun Petznick DO Work Phone: [facility] 09-01-2024 09:14-0400 Heart rate 69 /min Lashaun Petznick DO Work Phone: [facility] 09-01-2024 09:14-0400 SaO2% (BldA) [Mass fraction] 96 % Lashaun Petznick DO Work Phone: [facility] 09-01-2024 09:14-0400 Systolic blood pressure 124 mm[Hg] Lashaun Petznick DO Work Phone: [facility] 06-16-2024 15:30-0400 Body height 185.4 cm Nitish Martin DO Work Phone: [facility] 06-16-2024 15:30-0400 Body mass index (BMI) [Ratio] 29.42 kg/m2 Nitish Martin DO Work Phone: [facility] 06-16-2024 15:30-0400 Body temperature 98.29 [degF] Nitish Martin DO Work Phone: [facility] 06-16-2024 15:30-0400 Body weight 101.15 kg Nitish Martin DO Work Phone: [facility] 06-16-2024 15:30-0400 Diastolic blood pressure 80 mm[Hg] Nitish Martin DO Work Phone: [facility] 06-16-2024 15:30-0400 Heart rate 80 /min Nitish Martin DO Work Phone: [facility] 06-16-2024 15:30-0400 Systolic blood pressure 122 mm[Hg] Nitish Martin DO Work Phone: [facility] 01-29-2024 14:36-0400 Body height 185.4 cm Martin Queen DO Work Phone: [facility] 01-29-2024 14:36-0400 Body mass index (BMI) [Ratio] 29.69 kg/m2 Martin Queen DO Work Phone: [facility] 01-29-2024 14:36-0400 Body weight 102.06 kg Martin Queen DO Work Phone: [facility] 01-29-2024 14:36-0400 Diastolic blood pressure 70 mm[Hg] Martin Queen DO Work Phone: [facility] 01-29-2024 14:36-0400 Heart rate 86 /min Martin Queen DO Work Phone: [facility] 01-29-2024 14:36-0400 Systolic blood pressure 138 mm[Hg] Martin Queen DO Work Phone: [facility] 05-10-2023 12:10-0400 Body height 185.42 cm Barbara Ellis Other [employer] Other 05-10-2023 12:10-0400 Body mass index (BMI) [Ratio] 30.26 kg/m2 Barbara Ellis Other [employer] Other 05-10-2023 12:10-0400 Body temperature 97.8 [degF] Barbara Ellis Other [employer] Other 05-10-2023 12:10-0400 Body weight 104.06 kg Barbara Ellis Other [employer] Other 05-10-2023 12:10-0400 Respiratory rate 18 /min Barbara Ellis Other [employer] Other 05-10-2023 12:10-0400 SaO2% (BldA) [Mass fraction] 97 % Barbara Ellis Other [employer] Other 01-23-2023 11:01-0400 Body height 185.42 cm Nitish Martin Work Phone[facility] DO Work Phone: 01-23-2023 11:01-0400 Body mass index (BMI) [Ratio] 30.08 kg/m2 Nitish Martin Work Phone: [facility] DO Work Phone: 01-23-2023 11:01-0400 Body surface area Derived from formula 2.28 m2 Nitish Martin Work Phone: [facility] DO Work Phone: 01-23-2023 11:01-0400 Body weight 103.42 kg Nitish Martin Work Phone: [facility] DO Work Phone: 01-23-2023 11:01-0400 Diastolic blood pressure 60 mm[Hg] Nitish Martin Work Phone: [facility] DO Work Phone: 01-23-2023 11:01-0400 Heart rate 60 /min Nitish Martin Work Phone: [facility] [facility] DO Work Phone: 01-23-2023 11:01-0400 Systolic blood pressure 108 mm[Hg] Nitish Martin Work Phone: [facility] [facility] DO Work Phone: 05-01-2022 09:28-0400 Body height 185.42 cm Nitish Martin Work Phone: [facility] [facility] DO Work Phone: 05-01-2022 09:28-0400 Body mass index (BMI) [Ratio] 29.42 kg/m2 Nitish Martin Work Phone: [facility] [facility] DO Work Phone: 05-01-2022 09:28-0400 Body surface area Derived from formula 2.25 m2 Nitish Martin Work Phone: [facility] [facility] DO Work Phone: 05-01-2022 09:28-0400 Body weight 101.15 kg Nitish Martin Work Phone: [facility] [facility] DO Work Phone: 05-01-2022 09:28-0400 Diastolic blood pressure 50 mm[Hg] Nitish Martin Work Phone: [facility] DO Work Phone: 05-01-2022 09:28-0400 Heart rate 80 /min Nitish Martin Work Phone: [facility] [facility] DO Work Phone: 05-01-2022 09:28-0400 Systolic blood pressure 80 mm[Hg] Nitish Martin Work Phone: [facility] [facility] DO Work Phone: 03-01-2022 07:30-0400 40 1 Nitish Martin Work Phone: [facility] 600 DO Work Phone: Comment on above: [id number] 11-22-2021 10:31-0500 Body height 182.88 cm Nitish Martin Work Phone: [facility] DO Work Phone: 11-22-2021 10:31-0500 Body mass index (BMI) [Ratio] 30.38 kg/m2 Nitish Martin Work Phone: [facility] [facility] DO Work Phone: 11-22-2021 10:31-0500 Body surface area Derived from formula 2.24 m2 Nitish Martin Work Phone: [facility] [facility] DO Work Phone: 11-22-2021 10:31-0500 Body weight 101.61 kg Nitish Martin Work Phone: [facility] DO Work Phone: 11-22-2021 10:31-0500 Diastolic blood pressure 72 mm[Hg] Nitish Martin Work Phone: [facility] [facility] DO Work Phone: 11-22-2021 10:31-0500 Heart rate 66 /min Nitish Martin Work Phone: [facility] [facility] DO Work Phone: 11-22-2021 10:31-0500 Systolic blood pressure 124 mm[Hg] Nitish Martin Work Phone: [facility] [facility] DO Work Phone: 10-10-2021 10:00-0500 Body height 185.42 cm Jaelyn Espinal Other [employer] Other 10-10-2021 10:00-0500 Body temperature 97.5 [degF] Jaelyn Espinal Other [employer] Other 10-10-2021 10:00-0500 SaO2% (BldA) [Mass fraction] 99 % Jaelyn Espinal Other [employer] Other 09-27-2021 09:48-0500 Body height 182.88 cm Nitish Martin Work Phone: [facility] DO Work Phone: 09-27-2021 09:48-0500 Body mass index (BMI) [Ratio] 30.65 kg/m2 Nitish Martin Work Phone: [facility] [facility] DO Work Phone: 09-27-2021 09:48-0500 Body surface area Derived from formula 2.24 m2 Nitish Martin Work Phone: [facility] [facility] DO Work Phone: 09-27-2021 09:48-0500 Body weight 102.51 kg Nitish Martin Work Phone: [facility] DO Work Phone: 09-27-2021 09:48-0500 Diastolic blood pressure 59 mm[Hg] Nitish Martin Work Phone: [facility] DO Work Phone: 09-27-2021 09:48-0500 Heart rate 73 /min Nitish Martin Work Phone: [facility] [facility] DO Work Phone: 09-27-2021 09:48-0500 Systolic blood pressure 129 mm[Hg] Nitish Martin Work Phone: [facility] DO Work Phone: 09-27-2021 09:48-0500 46 1 Nitish Martin Work Phone: [facility] [facility] [place] Work Phone: Comment on above: [id number] Encounters Encounter Date Encounter Type Care Provider Facility Start: 12-04-2024 End: 12-04-2024 Bamboo flowsheet Nitish Martin DO Work Phone: [facility] 230 Start: 12-04-2024 End: 12-04-2024 Bamboo flowsheet Nitish Martin DO Work Phone: [facility] 230 Start: 12-04-2024 End: 12-04-2024 Assay of hemosiderin, quant Joyce Ramsey HANDBAG FRAMES INSPECTOR Work Phone: [facility] Start: 12-04-2024 End: 12-04-2024 Patient encounter procedure Joyce Ramsey HANDBAG FRAMES INSPECTOR Work Phone: [facility] 230 Comment on above: Routine general medi [...] 25 minutes Lashaun Bradley DO Work Phone: [facility] 230 Comment on above: Type 2 diabetes lisandro itus with other circulatory complications (CMS/HCC) (Primary Dx); Type 2 diabetes mellitus with stage 3a chronic kidney disease, without long-term current use of insulin (HCC) (CMS/HCC); Preventative health care; Screening for prostate cancer Start: 12-01-2024 End: 12-01-2024 Patient encounter status Lashaun Bradley DO Work Phone: [facility] Start: 12-01-2024 End: 12-01-2024 ambulatory LASHAUN BRADLEY Not Available Start: 09-01-2024 End: 09-01-2024 Office outpatient visit 25 minutes Lashaun Bradley DO Work Phone: [facility] 230 Comment on above: Type 2 diabetes lisandro itus with other circulatory complications (CMS/HCC) Start: 09-01-2024 End: 09-01-2024 ambulatory LASHAUN BRADLEY Not Available Start: 08-29-2024 End: 08-29-2024 Telephone encounter Lashaun Bradley DO Work Phone: [facility] 230 Start: 06-27-2024 End: 06-27-2024 Bamboo flowsheet [employer] PA Work Phone: [facility] Start: 06-27-2024 End: 06-27-2024 [employer] PA Work Phone: [facility] Start: 06-27-2024 End: 06-27-2024 Office outpatient new 45 minutes [employer] PA Work Phone: [facility] Comment on above: Other seborrheic matthew matitis (Primary Dx); Acrochordon; Other specified erythematous conditions; Inflamed seborrheic keratosis Start: 06-27-2024 End: 06-27-2024 ambulatory BARI Ping4EIM Not Available Start: 06-16-2024 End: 06-16-2024 ambulatory NITISH MARTIN Not Available Start: 06-16-2024 End: 06-16-2024 Office outpatient visit 25 minutes Nitish Martin DO Work Phone: [facility] 230 Comment on above: Hypothyroidism (acqu ired) [...] (CMS/HCC); Acquired absence of other right toe(s) ([facility]) Start: 06-16-2024 End: 06-16-2024 ambulatory NITISH MARTIN Not Available Start: 06-02-2024 End: 06-02-2024 ambulatory LASHAUN BRADLEY Not Available Start: 03-03-2024 End: 03-03-2024 ambulatory LASHAUN Dimas KIRK Not Available Start: 01-29-2024 End: 01-29-2024 Office outpatient visit 25 minutes [facility] DO Work Phone: [facility] Comment on above: Arteriosclerotic car diovascular disease (ASCVD); History of coronary artery bypass graft; Multiple vessel coronary artery disease; Status post angioplasty; Hypertension, unspecified type; Mixed hyperlipidemia; Other specified diabetes mellitus with other specified complication, with long-term current use of insulin ([facility]); BMI 29.0-29.9,adult; Never smoked tobacco Start: 01-29-2024 End: 01-29-2024 ambulatory [facility] Ambulatory Start: 01-07-2024 End: 01-07-2024 ambulatory EMELYN Quintero EFRAIN Not Available Start: 05-10-2023 End: 05-10-2023 ambulatory Barbara Ellis Other [employer] Other Start: 05-10-2023 Office outpatient vi sit 15 minutes Barbara Ellis [facility] Start: 03-19-2023 End: 03-20-[address] NITISH MARTIN Facility:H1 Start: 03-05-2023 Rx Renewal Nitish Martin Work Phone: [facility] DO Work Phone: Start: 03-05-2023 End: 03-06-[address] NITISH MARTIN Facility:[facility]1 Start: 02-13-2023 End: 02-14-[address] NITISH MARTIN Facility:[facility]1 Start: 01-23-2023 Office outpatient vi sit 15 minutes Nitish Martin Work Phone: [facility] DO Work Phone: Start: 01-23-[address] Nitish Martin Facility: Start: 11-28-2022 End: 11-29-[address] NITISH MARTIN Facility:[facility]1 Start: 11-13-2022 End: 11-14-2022 ambulatory NISHA Wilton IVORY Facility:H1 Start: 10-24-2022 End: 10-25-2022 ambulatory NISHA Núñez [facility] Facility:H1 Start: 07-18-2022 End: 07-19-2022 ambulatory NISHA Núñez [facility] Facility:H1 Start: 07-03-2022 End: 07-04-2022 ambulatory NISHA Núñez [facility] Facility:H1 Start: 06-20-2022 End: 06-21-2022 ambulatory NISHA Núñez [facility] Facility:H1 Start: 06-13-2022 Encounter for preprocedural laboratory examination NISHA Núñez [facility] Start: 06-12-2022 End: 06-12-2022 ambulatory NISHA Núñez [facility] Facility:H1 Start: 06-09-2022 End: 06-10-2022 ambulatory NISHA Núñez [facility] Facility:H1 Start: 06-09-2022 End: 06-10-2022 Encounter for preprocedural laboratory examination NISHA Núñez [facility] Facility:H1 Start: 06-07-2022 End: 06-08-2022 ambulatory [facility]HA [facility]ez [facility] [facility] Facility[facility] Start: 06-06-2022 End: 06-07-2022 ambulatory NISHA Núñez [facility] Facility:H1 Start: 05-30-2022 End: 05-31-2022 ambulatory NISHA Núñez [facility] Facility:H1 Start: 05-02-2022 End: 05-03-2022 ambulatory NISHA Núñez [facility] Facility:H1 Start: 05-01-2022 Office outpatient vi sit 25 minutes Nitish Martin Work Phone: [facility] 250 DO Work Phone: Start: 05-01-2022 ambulatory [...] Patient encounter procedure Nitish Martin Work Phone: [facility] 250 DO Work Phone: Start: 03-14-2022 SURGFORMERLY [facility], Provider: Margaux Christian, Status: Pen, Time: 12:00 PM Nitish Martin Work Phone: [facility] 250 DO Work Phone: Start: 03-14-2022 End: 03-15-2022 ambulatory Margaux Christian Facility:[facility] Start: 03-13-2022 Chart Update Nitish Martin Work Phone: [facility] 250 DO Work Phone: Start: 03-10-2022 Chart Update Nitish Martin Work Phone: [facility] 600 DO Work Phone: Start: 03-10-2022 End: 03-10-2022 ambulatory Nitish Martin Facility:[facility] Start: 12-14-2021 Rx Renewal Nitish Martin Work Phone: [facility] 250 DO Work Phone: Start: 11-22-2021 Office outpatient vi sit 25 minutes Nitish Martin Work Phone: [facility] 250 DO Work Phone: Start: 11-09-2021 SURGFORMERLY [facility], Provider: Martin Queen, Status: Pen, Time: 1:00 PM Nitish Martin Work Phone: [facility] 250 DO Work Phone: Start: 11-08-2021 Chart Update Nitish Martin Work Phone: [facility] 250 DO Work Phone: Start: 10-18-2021 Telephone encounter Nitish luz Work Phone: [facility] 600 DO Work Phone: Start: 10-14-2021 Chart Update Nitish Martin [facility]: [facility] Work Phone: Start: 10-12-2021 Patient encounter procedure Nitish Martin Work Phone: [facility] 250A [place] Work Phone: Start: 10-10-2021 End: 10-10-2021 ambulatory Jaelyn Espinal Other [facility] Other Start: 10-10-2021 Office outpatient vi sit 15 minutes Jaelyn Espinla [facility] Start: 09-28-2021 AUDIT Nitish Martin Work Phone: [facility] 250[address] [place] Work Phone: Start: 09-27-2021 Office outpatient vi sit 25 minutes Nitish Martin Work Phone: [facility] Work Phone: Start: 04-11-2017 End: 04-12-2017 Ambulatory [id number] MAILE MARTIN Facility[place] Procedures Date Procedure Procedure Detail Performing Clinician [...] Annual Wellness (AWV) Medicare Annual Wellness (AWV) [facility] Start: 12-01-2025 Urine screening for protein Diabetes: Urine Protein Screening [facility] Start: 03-27-2025 Screening for malignant neoplasm of colon [facility] Start: 03-27-2025 End: 03-27-2025 Patient encounter procedure 03/27/2025 8:45 AM EDT Office Visit [facility] [address] [facility] [address] [place] [phone] Lashaun Bradley DO [address] [place] [address] [facility] 230 Start: 03-01-2025 Hemoglobin A1c measurement Diabetes: Hemoglobin A1C [facility] Start: 01-28-2025 End: 01-28-2025 Patient encounter procedure 01/28/2025 9:50 AM EDT Office Visit [facility] [address] [place] [id number] Martin Queen, DO [address] [place] [address] [facility] Start: 12-04-2024 End: 12-04-2024 Patient encounter procedure 12/04/2024 11:20 AM EST Office Visit [facility] [address] [place] [phone] Nitish Martin, DO [address] [place] [address] Arrived [facility] 230 Comment on above: Arrived Start: 12-02-2024 Hemoglobin A1c measurement Diabetes: Hemoglobin A1C [facility] Start: 12-01-2024 End: 12-01-2025 Prostate specific Ag [Mass/volume] in Serum or Plasma PSA Lab Routine Screening for prostate cancer Expected: 12/01/2024 (Approximate), Expires: 12/01/2025 [facility] Comment on above: Expected: 12/01/2024 (Approximate), Expi res: 12/01/2025 Start: 12-01-2024 End: 12-01-2024 Patient encounter procedure 12/01/2024 9:15 AM EST Office Visit [facility] [address] [place] [phone] Lashaun Bradley, DO [address] [place] [address] [facility] 230 Start: 09-02-2024 Hemoglobin A1c measurement Diabetes: Hemoglobin A1C [facility] Start: 09-01-2024 End: 09-01-2024 Patient encounter procedure 09/01/2024 9:15 AM EDT Office Visit [facility] [address] [place] [address] Lashaun Bradley, DO [address] [place] [address] [facility] 230 Start: 08-09-2024 Urine screening for protein Diabetes: Urine Protein Screening [facility] Start: 07-06-2024 Influenza vaccination Influenza Vaccine (#1) [facility] Start: 06-27-2024 Glaucoma screening Diabetes: Retinopathy Screening [facility] Start: 06-27-2024 End: 06-27-2024 Patient encounter procedure 06/27/2024 8:50 AM EDT Office Visit [facility] [address] [place] [address] Bari Chowdhury PA [address] [place] [address] [facility] Comment on above: Arrived Start: 01-29-2024 End: 01-28-2025 Alanine aminotransferase [Enzymatic activity/volume] in Serum or Plasma by With P-5'-P Alanine Aminotransferase Lab Routine 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 Multiple vessel coronary artery disease Hypertension, unspecified type Mixed hyperlipidemia Expected: 01/29/2024 (Approximate), Expires: 01/28/2025 [facility] Work Phone: Comment on above: Expected: 01/29/2024 (Approximate), Expi res: 01/28/2025 Start: 01-29-2024 End: 01-28-2025 Aspartate aminotransferase [Enzymatic activity/volume] in Serum or Plasma by With P-5'-P Aspartate Aminotransferase Lab Routine 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 Multiple vessel coronary artery disease Hypertension, unspecified type Mixed hyperlipidemia Expected: 01/29/2024 (Approximate), Expires: 01/28/2025 [facility] Work Phone: Comment on above: Expected: 01/29/2024 (Approximate), Expi res: 01/28/2025 Start: 01-29-2024 End: 01-28-2025 C reactive protein [Mass/volume] in Serum or Plasma by High sensitivity method C-Reactive Protein, High Sensitivity Lab Routine 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 Multiple vessel coronary artery disease Hypertension, unspecified type Mixed hyperlipidemia Expected: 01/29/2024 (Approximate), Expires: 01/28/2025 [facility] Work Phone: Comment on above: Expected: 01/29/2024 (Approximate), Expi res: 01/28/2025 Start: 01-29-2024 End: 01-28-2025 Lipid 1996 panel - Serum or Plasma Lipid Panel Lab Routine 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 Multiple vessel coronary artery disease Hypertension, unspecified type Mixed hyperlipidemia Expected: 01/29/2024 (Approximate), Expires: 01/28/2025 [facility] Service Area Work Phone: Comment on above: Expected: 01/29/2024 (Approximate), Expi res: 01/28/2025 Start: 01-24-2024 [facility]UV, Provider: Martin Queen, Status: Pen, Time: 9:30 AM [facility], Provider: Martin Queen, Status: Pen, Time: 9:30 AM [facility] [employer] 250 DO Work Phone: Start: 01-23-2023 Medicare Annual Wellness (AWV) Medicare Annual Wellness (AWV) [facility] Start: 11-16-2022 FUV, Provider: Martin Queen, Status: Pen, Time: 10:20 AM [facility], Provider: Martin Queen, Status: Pen, Time: 10:20 AM [facility] 250 DO Work Phone: Start: 08-25-2022 Pneumococcal Vaccine: 65+ Years (2 - PCV) Pneumococcal Vaccine: 65+ Years (2 - PCV) [facility] Start: 08-25-2022 Pneumococcal Vaccine: 65+ Years (2 of 2 - PCV) Pneumococcal Vaccine: 65+ Years (2 of 2 - PCV) [facility] Start: 05-29-2022 FUV, Provider: Helga Flores, Status: Pen, Time: 10:15 AM [facility]UV, Provider: Helga Flores, Status: Pen, Time: 10:15 AM -[facility] 250 DO Work Phone: Start: 05-01-2022 FUV, Provider: Helga Flores, Status: Pen, Time: 9:30 AM [facility]UV, Provider: Helga Flores, Status: Pen, Time: 9:30 AM -[facility] 600 DO Work Phone: Start: 03-21-2022 FUV, Provider: Helga Flores, Status: Pen, Time: 9:15 AM [facility], Provider: Helga Flores, Status: Pen, Time: 9:15 AM [facility] 250 DO Work Phone: Start: 03-14-2022 [facility], Provider: Margaux Christian, Status: Pen, Time: 12:00 PM [facility], Provider: Margaux Christian, Status: Pen, Time: 12:00 PM -[facility] 600 DO Work Phone: Start: 11-09-2021 [facility], Provider: Martin Queen, Status: Pen, Time: 1:00 PM [facility], Provider: Martin Queen, Status: Pen, Time: 1:00 PM -[facility] 600 DO Work Phone: Start: 10-12-2021 STRESS NUC, Provider: [place] HHVI NUCLEAR 01,[id number], Status: Pen, Time: 7:30 AM STRESS NUC, Provider: [place] [facility]VI NUCLEAR 01,[id number], Status: Pen, Time: 7:30 AM -[facility] 250 DO Work Phone: Start: 02-07-2006 Zoster Vaccines (1 of 2) Zoster Vaccines (1 of 2) [facility] Start: 02-07-1978 DTaP/Tdap/Td Vaccines (1 - Tdap) DTaP/Tdap/Td Vaccines (1 - Tdap) [facility] Start: 02-07-1975 Urine screening for protein Diabetes: Urine Protein Screening [facility] Start: 02-07-1974 Hepatitis C screening Hepatitis C Screening [facility] Start: 02-07-1966 Diabetic foot examination Diabetes: Foot Exam [facility] Start: 02-07-1966 Glaucoma screening Diabetes: Retinopathy Screening [facility] Start: 1956 Creatinine measurement Creatinine Level [facility] Start: 1956 Echocardiography Echocardiogram [facility] Start: 1956 Hemoglobin A1c measurement Diabetes: Hemoglobin A1C [facility] Start: 1956 Lipid panel Lipid Panel [facility] Start: 1956 Medicare Annual Wellness Visit Medicare Annual Wellness Visit (AWV) [facility] Start: 1956 Potassium measurement Potassium Level [facility] Start: 1956 Screening for malignant neoplasm of colon [facility] Start: 1956 Thyroid stimulating hormone measurement TSH Level [facility] CBC W Auto Different ial panel - Blood CBC and differential Lab Routine Preventative health care Ordered: 12/01/2024 [facility] Comment on above: Ordered: 12/01/2024 Comprehensive metabo lic 2000 panel - Serum or Plasma Comprehensive metabolic panel Lab Routine Preventative health care Ordered: 12/01/2024 [facility] Work Phone: Comment on above: Ordered: 12/01/2024 Lipid 1996 panel - S mariely or Plasma Lipid panel Lab Routine Preventative health care Ordered: 12/01/2024 [facility] Comment on above: Ordered: 12/01/2024 Microalbumin/Creatin ine panel in random Urine Microalbumin / creatinine urine ratio Lab Routine Type 2 diabetes mellitus with other circulatory complications (CMS/HCC) Ordered: 12/01/2024 [facility] Comment on above: Ordered: 12/01/2024 Thyrotropin [Units/volume] in Serum or Plasma TSH Lab Routine Preventative health care Ordered: 12/01/2024 [facility] Comment on above: Ordered: 12/01/2024 Immunizations Immunization Date Immunization Notes Care Provider Ele mcneal 12-04-2024 Pneumococcal Conjuga te PCV 20 Joyce Ramsey NP Work Phone: [facility] 08-04-2024 influenza, high dose seasonal, preservative-free Lashaun Bradley DO Work Phone: [facility] 08-21-2023 Influenza, Seasonal, Quadrivalent, Adjuvanted [facility] Work Phone: [facility] 08-21-2023 influenza virus vacc ine, unspecified formulation [facility] Work Phone: [facility] 08-09-2023 RSV, recombinant, protein subunit RSVpreF, adjuvant reconstitu, 120mcg/0.5mL, PF (Arexvy) [facility] Work Phone: [facility] 08-02-2022 Fluzone High-Dose Quadrivalent 0.7 ML Intramuscular Suspension Prefilled Syringe Nitish Martin Work Phone: [facility] 250 DO Work Phone: 08-02-2022 Pfizer COVID-19 Vac Bivalent 30 MCG/0.3ML Intramuscular Suspension Nitish Martin Work Phone: [facility] 09-02-2021 Pfizer-BioNTech COVI D-19 Vacc 30 MCG/0.3ML Intramuscular Suspension Nitish Martin Work Phone: [facility] 08-25-2021 Fluad Quadrivalent 0 .5 ML Intramuscular Prefilled Syringe Nitish Martin Work Phone: [facility] 250 DO Work Phone: 08-25-2021 pneumococcal polysaccharide vaccine, 23 valent Nitish Martin Work Phone: [facility] 02-06-2021 Pfizer-BioNTech COVI D-19 Vacc 30 MCG/0.3ML Intramuscular Suspension Nitish Martin Work Phone: [facility] 01-16-2021 Pfizer-BioNTech COVI D-19 Vacc 30 MCG/0.3ML Intramuscular Suspension Nitish Martin Work Phone: [facility] 11-22-2020 zoster vaccine recombinant Nitish Martin Work Phone: [facility] 250 DO Work Phone: 01-18-2021 zoster vaccine, unspecified formulation Martin Queen DO Work Phone: [facility] Work Phone: 09-09-2020 influenza, high dose seasonal, preservative-free Nitish Martin Work Phone: [facility] 250 DO Work Phone: 09-05-2020 influenza virus vacc ine, unspecified formulation Nitish Martin Work Phone: [facility] 250 DO Work Phone: 09-05-2020 influenza, seasonal, injectable Bari Chowdhury PA Work Phone: [facility] 08-29-2020 influenza, injectabl e, quadrivalent, preservative free Nitish Martin Work Phone: [facility] 250 DO Work Phone: 08-29-2020 zoster vaccine recombinant Nitish Martin Work Phone: [facility] 250 DO Work Phone: 08-29-2020 zoster vaccine, unspecified formulation Martin Queen DO Work Phone: [facility] Work Phone: 09-07-2019 influenza virus vacc ine, unspecified formulation Nitish Martin Work Phone: [facility] 250 DO Work Phone: 08-26-2019 Influenza, injectabl e, Madin Caitie Canine Kidney, preservative free, quadrivalent Nitish Martin Work Phone: [facility] 250 DO Work Phone: 11-05-2017 pneumococcal polysaccharide vaccine, 23 valent Nitish Martin Work Phone: [facility] 09-18-2017 influenza, injectabl e, quadrivalent, preservative free Nitish Martin Work Phone: [facility] 250 DO Work Phone: 08-06-2017 influenza, high dose seasonal, preservative-free Nitish Martin Work Phone: [facility] 250 DO Work Phone: 08-05-2016 influenza virus vacc ine, unspecified formulation Nitish Martin Work Phone: [facility] 250 DO Work Phone: 07-24-2011 influenza, seasonal, injectable, preservative free Nitish Martin Work Phone: [facility] 250 DO Work Phone: 11-05-2010 influenza virus vacc ine, unspecified formulation Nitish Martin Work Phone: [facility] 250 DO Work Phone: 08-05-2010 pneumococcal polysaccharide vaccine, 23 valent Nitish Martin Work Phone: [place] [address] DO Work Phone: 08-13-2008 influenza, seasonal, injectable, preservative free Nitish Martin Work Phone: [place] [address] DO Work Phone: influenza virus vacc ine, unspecified formulation Nitish Martin Work Phone: [place] [address] DO Work Phone: Comment on above: Sep 2010 Payers Date Payer Category Payer Self-pay 2021 Medicare [id number] 2021 Private Health Insurance [employer] [id number] 2021 Unknown 2017 Unknown [id number] 1958 Medicare [id number] 1959 Unknown [id number] 2.16.840.1.929019.19 1956 Unknown [id number] 2.16.840.1.006711.3.579.2. 356 1956 Unknown [id number] 2.16.840.1.149240.3.579.2. 356 1956 Unknown [id number] 2.16.840.1.248854.3.579.2. 356 1956 Unknown [id number] 2.16.840.1.418849.3.579.2. 593 1956 Unknown [id number] 2.16.840.1.761715.3.579.2. 593 1956 Unknown [id number] 2.16.840.1.282930.3.579.2. 593 1956 Unknown [id number] 2.16.840.1.400487.3.579.2. 593 1956 Unknown [id number] 2.16.840.1.217594.3.579.2. 593 1956 Unknown [id number] 2.16.840.1.805443.3.579.2. 593 1956 Unknown [id number] 2.16.840.1.086385.3.579.2. 593 1956 Unknown [id number] 2.16.840.1.226246.3.579.2. 593 1956 Unknown [id number] 2.16.840.1.648988.3.579.2. 593 1956 Unknown [id number] 2.16.840.1.319352.3.579.2. 593 1956 Unknown [id number] 2.16.840.1.819278.3.579.2. 593 1956 Unknown [id number] 2.16.840.1.721295.3.579.2. 593 1956 Unknown [id number] 2.16.840.1.231168.3.579.2. 593 1956 Unknown [id number] 2.16.840.1.976404.3.579.2. 593 1956 Unknown [id number] 2.16.840.1.678503.3.579.2. 593 1956 Unknown [id number] 2.16.840.1.795692.3.579.2. 593 1956 Unknown [id number] 2.16.840.1.657222.3.579.2. 593 1956 Unknown [id number] 2.16.840.1.076514.3.579.2. 593 1956 Unknown [id number] 2.16.840.1.606259.3.579.2. 593 1956 Unknown [id number] 2.16.840.1.971574.3.579.2. 593 1956 Unknown [id number] 2.16.840.1.608967.3.579.2. 1244 1956 Unknown [id number] 2.16.840.1.781614.3.579.2. 1259 1956 Unknown [id number] 2.16.840.1.189517.3.579.2. 1259 1956 Unknown [id number] 2.16.840.1.773995.3.579.2. 1259 1956 Unknown [id number] 2.16.840.1.848236.3.579.2. 1259 1956 Unknown [id number] 2.16.840.1.218291.3.579.2. 9 1956 Unknown [id number] 2.16.840.1.348830.3.579.2. 1259 1956 Unknown [id number] 2.16.840.1.112271.3.579.2. 9 1956 Unknown [id number] 2.16.840.1.818300.3.579.2. 1259 1956 Unknown [id number] 2.16.840.1.305428.3.579.2. 9 1956 Unknown [id number] 2.16.840.1.577302.3.579.2. 1259 Unknown [id number] 2.16.840.1.208632.3.579.2. 531 Unknown [id number] 2.16.840.1.328542.3.579.2. 531 Social History Date Type Detail Facility Start: 01-29-2024 End: 12-01-2024 Caffeine use Caffeine use [facility] 250 DO Work Phone: Comment on above: occassional; Start: 01-29-2024 End: 12-01-2024 Sex Assigned At [facility] Other Start: 01-29-2024 End: 06-16-2024 Tobacco smoking status NHIS Never smoked tobacco [facility] Start: 01-29-2024 End: 06-16-2024 Tobacco use and exposure Smokeless tobacco non-user [facility] Work Phone: Start: 01-29-2024 End: 12-01-2024 Alcohol intake Lifetime non-drinker (finding) [facility] Work Phone: Start: 1955 [facility]: Start: 01-19-2024 End: 01-29-2024 Exposure to SARS-CoV-2 (event) Not sure [facility] How often to you hav e a drink containing alcohol? Never [facility] How many standard drinks containing alcohol do you have on a typical day? Patient does not drink [facility] NEGATED: Highlighted rowStart: PAULINO History of tobacco use Passive smoker [facility] Medical Equipment Procedure Code Equipment Code Equipment Origin al Text Equipment Identifier Dates Fsbs daily [id number] Start: 03-03-2024 Fsbs daily [id number] Start: 03-03-2024 Clinical Notes 10-08-2017 to 12-01-2024 Lashaun Bradley, - 12/01/2024 9:35 AM Trini Bradlye, - 12/01/2024 9:15 AM Trini Bradley, DO - 09/01/2024 12:48 PM Erika Bradley DO - 09/01/2024 9:15 AM EDT Note Date & Type Note Facility 12-01-2024 History of Presen t illness Narrative Associated Problem(s): Type 2 diabetes mellitus with other circulatory complications (CMS/[facility]) During the appointment today all [...] 2 diabetes mellitus with other circulatory complications ([facility]) Anemia, unspecified Atherosclerotic heart disease of [place] coronary artery without angina pectoris ([facility]) Gastro-esophageal reflux disease without esophagitis Osteoarthritis of knee, unspecified Stage 3a chronic kidney disease (CKD) ([facility]) Hypertension ([facility]) Hyperlipidemia ([facility]) History of coronary artery bypass graft Type 2 diabetes mellitus with stage 3a chronic kidney disease, without long-term current use of insulin ([facility]) ([facility]) Social History Tobacco Use Smoking [...] FOR 90 DAYS BLOOD GLUCOSE MONITORING SUPPL (Read[employer]IO FLEX SYSTEM) W/DEVICE KIT CARVEDILOL (COREG) 6.25 [...] by mouth in the morning. GLUCOSE BLOOD ([employer] SolutionsTOUCH VERIO) TEST STRIP Fsbs daily ISOSORBIDE MONONITRATE [...] for chest pain. ONETOUCH DELICA LANCETS 33G [facility] Fsbs daily SEMAGLUTIDE, 2 MG/DOSE, (OZEMPIC, 2 MG/DOSE,) 8 MG/3ML SOLUTION PEN-INJECTOR Inject 2 mg under the skin 1 (one) time per week Modified Medications No medications on file Discontinued Medications No medications on file I have reviewed and reconciled the history and medication list with the patient today. documented in this encounter [facility] 09-01-2024 History of Presen t illness Narrative Associated Problem(s): Type 2 diabetes mellitus with other circulatory complications (CMS/[facility]) During the appointment today all [...] if they have any problems or questions. Janiec Pandya blood sugars are worsening. , Discussed [...] (CMS/HCC) Anemia, unspecified Atherosclerotic heart disease of [place] coronary artery without angina pectoris (CMS/HCC) Gastro-esophageal reflux disease without esophagitis Osteoarthritis of knee, unspecified Stage 3a chronic kidney disease (CKD) (CMS/HCC) Hypertension (CMS/HCC) Hyperlipidemia (CMS/HCC) History of coronary artery bypass graft Type 2 diabetes mellitus with stage 3a chronic kidney disease, without long-term current use of insulin (HCC) (CMS/[facility]) Social History Tobacco Use Smoking [...] FOR 90 DAYS BLOOD GLUCOSE MONITORING SUPPL ([employer] VERIO FLEX SYSTEM) W/DEVICE KIT CARVEDILOL (COREG) [...] by mouth in the morning. GLUCOSE BLOOD (Lav[employer]CH VERIO) TEST STRIP Fsbs daily ISOSORBIDE MONONITRATE [...] (five) minutes if needed for chest pain. [employer] SolutionsTOUCH DELICA LANCETS 33G [facility] Fsbs daily Modified Medications No medications on file Discontinued Medications SEMAGLUTIDE (OZEMPIC, 1 MG/DOSE,) 4 MG/3ML SOLUTION PEN-INJECTOR Inject 1 mg under the skin 1 (one) time per week I have reviewed and reconciled the history and medication list with the patient today. documented in this encounter [facility] 08-29-2024 Telephone encounter Note LVM appointment reminder [facility] 08-29-2024 Miscellaneous Notes LVM appointment reminder documented in this encounter [facility] 06-27-2024 History of Presen t illness Narrative [...] (2) Chest - Medial (Center), Left Axilla [place] and brown stuck on verrucous scaly papule [...] limited to risks of scarring, darker or machine set up pigmentary changes, recurrence, incomplete removal and infection. [...] Visit: 1 year documented in this encounter [facility] 06-16-2024 History of Presen t illness Narrative [...] FOR 90 DAYS Blood Glucose Monitoring Suppl ([employer] Verio Flex System) w/Device kit No dose, [...] fenofibrate (TRICOR) 145 mg, Daily glucose blood (Flowlineuch Verio) test strip Fsbs daily isosorbide mononitrate ER (IMDUR) 60 mg, Daily levothyroxine (SYNTHROID, LEVOXYL) 200 mcg, Oral, Daily metFORMIN XR (GLUCOPHAGE-XR) 500 mg, Oral, 2 times daily nitroglycerin (NITROSTAT) 0.4 mg, Every 5 min PRN [employer] Delica Lancets 33G misc Fsbs daily Ozempic [...] follow-ups on file. documented in this encounter [facility] 01-29-2024 History of Presen t illness Narrative [...] complication, with long-term current use of insulin ([facility]) 8. BMI 29.0-29.9,adult 9. Never [...] discussion and plan. documented in this encounter [facility] Work Phone: 01-29-2024 Instructions Sheri Newman [...] instructions on exercise. documented in this encounter [facility] Work Phone: 05-10-2023 Evaluation note Encounter [...] the ER for worsening symptoms or concerns. [employer] Other 01-24-2023 NotePROCEDURE: XR FOOT RT MIN [...] Electronically authenticated by: HUSAM FISCHER Date: 2022-11-28 15:28[facility]08-08-2022 NotePROCEDURE: XR FOOT RT MIN 3 [...] authenticated by: ROSA MARIA MATOS Date: 2022-06-12 21:05[facility]08-02-2022 NotePROCEDURE: XR FOOT RT MIN 3 [...] Electronically authenticated by: HUSAM FISCHER Date: 2022-06-06 19:33[facility]05-19-2022 NotePROCEDURE: XR FOOT RT MIN 3 [...] authenticated by: HUSAM FISCHER Date: 2022-03-23 11:10[id number]* Encounter Date Diagnosis Assessment Notes Treatment Notes Treatment Clinical Notes Oct, Sore throat (ICD-10 - J02.9) symptoms appear viral in nature. Reassurance given. . Saltwater gargles may help with pain and disrupts bacteria and viral infections. Continue tylenol/ibu for general discomfort. Encourage fluids. Symptoms should improve within the next 4-7 days. [employer] Other 12-04-2017 History general Narrative - Reported* Type Description Date Medical History Diabetes mellitus Medical History Hyperlipidemia Medical History Hypothyroidism Surgical History CABG 1992 Surgical History cardiac stent 2002 Surgical History right knee arthroplasty 10/08/20 Surgical History left knee arthroplasty 03/2016 Surgical History Foot Surgery Hospitalization History see above surgical histo ry [employer] Other Evaluation note* Diagnosis Arteriosclerotic cardiovascular disease [...] Never smoked tobacco documented in this encounter [facility] Work Phone: Evaluation note* Diagnosis Type [...] mellitus with hyperosmolarity without coma, unspecified whether half-way insulin use (CMS/HCC) Type 2 diabetes mellitus with stage 3a chronic kidney disease, without long-term current use of insulin (HCC) (CMS/HCC) Type 2 diabetes mellitus with other circulatory complications (CMS/HCC) Type 2 diabetes mellitus with other circulatory complications (CMS/HCC) documented in this encounter [facility] Healthcare[facility]* Diagnosis Type 2 diabetes mellitus with other circulatory complications (CMS/HCC)- Primary Screening for prostate cancer Special screening for malignant neoplasm of prostate Type 2 diabetes mellitus with stage 3a chronic kidney disease, without long-term current use of insulin (HCC) (CMS/HCC)- Primary Type 2 diabetes mellitus with other circulatory complications (CMS/HCC) Type 2 diabetes mellitus with hyperosmolarity without coma, unspecified whether oil expeller insulin use (CMS/HCC) Type 2 diabetes mellitus [...] circulatory complications (CMS/HCC) documented in this encounter [facility] HealthcareEvaluation note* Diagnosis Other seborrheic dermatitis- Primary Acrochordon Unspecified hypertrophic and atrophic condition of skin Other specified erythematous conditions Inflamed seborrheic keratosis documented in this encounter [facility] HealthcareEvaluation note* Diagnosis Type 2 diabetes mellitus with other circulatory complications (CMS/HCC)- Primary Screening for prostate cancer Special screening for malignant neoplasm of prostate Type 2 diabetes mellitus with stage 3a chronic kidney disease, without long-term current use of insulin (HCC) (CMS/HCC)- Primary Type 2 diabetes mellitus with other circulatory complications (CMS/HCC) Type 2 diabetes mellitus with hyperosmolarity without coma, unspecified whether oil expeller insulin use (CMS/HCC) Type 2 diabetes mellitus [...] neoplasm of prostate documented in this encounter [facility] HealthcareEvaluation note* Diagnosis Type 2 diabetes mellitus with other circulatory complications (CMS/HCC)- Primary Screening for prostate cancer Special screening for malignant neoplasm of prostate Type 2 diabetes mellitus with stage 3a chronic kidney disease, without long-term current use of insulin (HCC) (CMS/HCC)- Primary Type 2 diabetes mellitus with other circulatory complications (CMS/HCC) Type 2 diabetes mellitus with hyperosmolarity without coma, unspecified whether oil expeller insulin use (CMS/HCC) Type 2 diabetes mellitus [...] was done remotely back in 1992 at [facility] in [place]. He had a WALL graft to the [...] completed. No change made to medications today. [facility] Work [facility]: History of Present illness Narrative* Mr. Pandya is a 66-year-old male who is seen back today for follow-up on his history of coronary disease. He had remote bypass surgery that was done back in 1992 at [facility] in [place].He had a WALL graft to the LAD [...] This will be arranged for him through [facility]. He is to return in 6 months for follow-up. [facility] [employer] 528 DO Work Phone: History of Present illness Narrative* Mr. Pandya is a 67-year-old male who is seen back today for follow-up on his history of coronary disease. He had remote bypass surgery that was done back in 1992 at [facility] in [place]. 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 This was redilated and stented. He had a recent episode at cardiac rehab in [place] and because of this was seen in [...] He is to return in 6 months. [facility] 250 DO Work Phone: History of Present illness Narrative* Joyce Ramsey, HANDBAG FRAMES INSPECTOR - 12/04/2024 1:00 PM EST Images from [...] 90 tablet 3 Blood Glucose Monitoring Suppl ([employer] Verio Flex System) w/Device kit carvedilol (Coreg) [...] by mouth in the morning. glucose blood ([employer] Verio) test strip Fsbs daily 100 strip [...] Do you have a medical power of erisa attorney?: Yes Who is your medical power of erisa attorney?: alexis Liliana Objective : BP 120/78 [...] (CMS/HCC) Stage 3a chronic kidney disease (CKD) ([facility]) Type 2 diabetes mellitus with stage 3a chronic kidney disease, without long-term current use of insulin (HCC) ([facility]) Hyperlipidemia, unspecified hyperlipidemia type ([facility]) Patient here for annual Medicare [...] Up In Cardiology Martin Queen DO [address] [facility] [address], [address] [address] Martin Queen DO [address] [facility] [address], [address] [address] Referral ID Status Reason Start Date Expiration Date V isits Requested Visits Authorized [id number] Authorized 01/29/2024 01/28/2025 1 1 [facility] Work Phone: Summary Purpose Family History [...] our standpoint he is not on a NERSI or ARB as he has adverse reaction/allergy [...] section and content) DATE CREATED AUTHOR 05/01/2018 [facility] DATE CREATED AUTHOR AUTHOR'S ORGANIZ ATION 01/25/2022 [facility] dical Specialist DATE CREATED AUTHOR AUTHOR'S ORGANIZ ATION [facility]2022 [facility] DATE CREATED AUTHOR AUTHOR'S ORGANIZ ATION 12/09/2022 [place] DATE CREATED AUTHOR AUTHOR'S ORGANIZ ATION 01/24/2023 [employer] DATE CREATED AUTHOR AUTHOR'S ORGANIZ ATION 02/20/2023 [facility] DATE CREATED AUTHOR AUTHOR'S ORGANIZ ATION 03/21/2023 [facility] DATE CREATED AUTHOR AUTHOR'S ORGANIZ ATION 04/18/2024 [facility] DATE CREATED AUTHOR AUTHOR'S ORGANIZ ATION 12/06/2024 [facility] dical Specialists EPIC REASON FOR VISIT (unrecogniz ed section and content) Reason Comments Annual Exam Reason Comments Diabetes Reason Comments Rash Suspicious Skin Lesion Reason Comments Medicare Annual Wellness Visit Subsequen t Care Teams (unrecognized sec tion and content) Mud Mixer Operator Relationship Specialty Start Date End Date Nitish Martin DO [address] [place] [id number] PCP - General 09/18/19 Mud Mixer Operator Relationship Specialty Start Date End Date Lashaun Bradley, DO [address] [place] [address] PCP - ACO Reach 03/29/23 Nitish Martin, DO [address] [place] [address] PCP - General Family Medicine 03/13/23 Mud Mixer Operator Relationship Specialty Start Date End Date Lashaun Bradley, DO [address] [place] [address] PCP - ACO Reach 03/29/23 Nitish Martin, DO [address] [place] [address] PCP - General Family Medicine 03/13/23 Mud Mixer Operator Relationship Specialty Start Date End Date Lashaun Bradley, DO [address] [place] [address] PCP - ACO Reach 03/29/23 Nitish Martin, DO [address] [place] [address] PCP - General Family Medicine 03/13/23 Mud Mixer Operator Relationship Specialty Start Date End Date Lashaun Bradley, DO [address] [place] [address] PCP - ACO Reach 03/29/23 Nitish Martin, DO [address] [place] [address] PCP - General Family Medicine 03/13/23 Mud Mixer Operator Relationship Specialty Start Date End Date Lashaun Bradley, DO [address] [place] [address] PCP - ACO Reach 03/29/23 Nitish Martin, DO [address] [place] [address] PCP - General Family Medicine 03/13/23 Mud Mixer Operator Relationship Specialty Start Date End Date Kirk Lashaun Dimas, DO [address] [place] [address] PCP - ACO Reach 03/29/23 Nitish Martin, DO [address] [place] [address] PCP - General Family Medicine 03/13/23 Mud Mixer Operator Relationship Specialty Start Date End Date OtonielLashaun thompson Judie, DO [address] [place] [address] PCP - ACO Reach 03/29/23 Nitish Martin, DO [address] [place] [address] PCP - General Family Medicine 03/13/23 Elliot Queen MD [address] [place] [address] Referring Physician Cardiology 12/04/24 Nisha Ivory MD [address] [place] [address] [place] [address] Referring Physician Podiatry 12/04/24 Mud Mixer Operator Relationship Specialty Start Date End Date Lashaun Bradley, DO [address] [place] [address] PCP - ACO Reach 03/29/23 Nitish Martin, DO [address] [place] [address] PCP - General Family Medicine 03/13/23 FOR [...] BE BASED ON THE PRIMARY CLINICAL RECORDS. [employer] [facility]. provides no warranty or guarantee of the accuracy or completeness of information in this document.
== END 2024-12-23 10:33 | disposition home or self-care (01) ==
LOC: WC 10:32
PROVIDERS: PCP Family Medicine; Visit Provider Physician Assistant
DX: E11.621 Type 2 diabetes mellitus with foot ulcer (principal); L97.429 Non-pressure chronic ulcer of left heel and midfoot with unspecified severity; L97.422 Non-pressure chronic ulcer of left heel and midfoot with fat layer exposed
CPT/HCPCS: 11043

== ENCOUNTER 2025-01-06 15:46 | Outpatient (OUT) | payer MEDICARE, OTHER, SELFPAY | END 2025-01-06 15:47 | disposition home or self-care (01) | LOC: WC 15:46 | PROVIDERS: PCP Family Medicine; Visit Provider Podiatrist Foot & Ankle Surgery | DX: E11.621 Type 2 diabetes mellitus with foot ulcer (principal); L97.422 Non-pressure chronic ulcer of left heel and midfoot with fat layer exposed | CPT/HCPCS: 11042 ==

== ENCOUNTER 2025-01-27 15:58 | Outpatient (OUT) | payer MEDICARE, OTHER, SELFPAY | END 2025-01-27 15:59 | disposition home or self-care (01) | LOC: WC 15:58 | PROVIDERS: PCP Family Medicine; Visit Provider Physician Assistant | DX: E11.621 Type 2 diabetes mellitus with foot ulcer (principal); L97.422 Non-pressure chronic ulcer of left heel and midfoot with fat layer exposed | CPT/HCPCS: 11043 ==

== ENCOUNTER 2025-01-28 13:01 | Outpatient (OUT) | payer MEDICARE, OTHER, SELFPAY ==
[2025-01-28 15:07] LABS: Anion Gap 13.7; Calcium 8.8 mg/dL (8.5-10.1); Carbon Dioxide 25.7 mmol/L (21.0-32.0); Chloride 104 mmol/L (98-107); Estimated GFR (African America >60 (>=60 mL/min/1.73m^2); Estimated GFR (Non-African Ame 51 (>=60 mL/min/1.73m^2); Glucose 150 mg/dL (74-106); Potassium 4.4 mmol/L (3.5-5.1); Sodium 139 mmol/L (136-145)
[2025-01-29 05:12] LABS: C-Reactive Protein, Cardiac 1.17 mg/L (0.00-3.00)
== END 2025-01-28 13:02 | disposition home or self-care (01) ==
LOC: LAB 13:03
PROVIDERS: PCP Family Medicine; Visit Provider Internal Medicine Cardiovascular Disease
DX: I25.10 Atherosclerotic heart disease of native coronary artery without angina pectoris (principal); I50.9 Heart failure, unspecified; I25.5 Ischemic cardiomyopathy
CPT/HCPCS: 36415; 80048; 83880; 86140

== ENCOUNTER 2025-02-10 09:52 | Outpatient (OUT) | payer MEDICARE, OTHER, SELFPAY ==
--- OUTSIDE RECORDS SUMMARY | 2025-02-10 10:13 | XMS_ITS | CCD ---
Author Organization [facility] Care Team Providers Care Finance Manager Name Role Phone NITISH AGRAWAL~[phone] UNKNOWN Unavailable Unavailable Ayisire, Eseoghene N Unavailable Unavailable Kwesiisadam, Eseoghene N Unavailable Unavailable Nitish Agrawal Unavailable Unavailable Unavailable Jaelyn Espinal Unavailable Margaux Castillo Admitting Unavailable Nitish Agrawal Primary Care Unavailable Margaux Castillo Attending Unavailable Nitish Agrawal Primary Care Unavailable Margaux Castillo Attending Unavailable Margaux Castillo Admitting Unavailable Tanja, Dr. Nitish Crump Primary Care Unavaila ble Margaux Castillo Attending Unavailable Mark, Dr. Helga Storey Referring Unavail able Tanja, Dr. Nitish Crump Primary Care Unavaila daisy Elias, Dr. Martin Zarate Referring Unava ilable Curt, Dr. Martin Zarate Attending Unava ilcarla Flores, Dr. Helga Storey Attending Unavail able Tanja, Dr. Nitish Crump Primary Care Unavaila daisy Flores, Dr. Helga Storey Referring Unavail able NISHA FARRAR Attending Unavailable NISHA FARRAR Admitting Unavailable DR NITISH AGRAWAL Primary Care Unavailable SHAIKH Magui GOMEZ Attending Unavailable DR NITISH AGRAWAL Primary Care Unavailable Husam Gamez Consulting Unavailable SEVEN GOMEZIKH H Admitting Unavailable NISHA FARRAR Procedure Practitioner RHONDA Fulton Consulting Unavailable NISHA FARRAR Consulting Unavailable AGUBDUARTE, WYATT Consulting Unavailable JESSICA STEIN Consulting Unavailable HELGA GOLDBERG Consulting Unavailable PATRICIA, JUNIOR H Consulting Unavailable AYYAGARI ., LILA Consulting Unavailable NISHA FARRAR Attending Unavailable NISHA FARRAR Admitting Unavailable TANJA, DR CLEMENS Primary Care [...] Unavailable HIGHLANDER, NISHA Núñez Attending Unavailable Barbara lElis Unavailable Nitish Agrawal DO Primary Care Provider Lashaun Bradley DO Unavailable Nitish Agrawal DO Primary Care Provider [phone] Elliot Elias MD Unavailable [phone] Nisha Farrar MD Unavailable [phone] Nitish Agrawal DO Primary Care Provider [phone] Elliot Elias MD Unavailable [phone] LASHAUN BRADLEY Attending Unavailable NITISH AGRAWAL Referring Unavailable NITISH AGRAWAL Attending Unavailable JOYCE LOYD Attending Unavailable LATHA CAICEDO Attending Unavailable LASHAUN BRADLEY Attending Unavailable LASHAUN BRADLEY Attending Unavailable NITISH AGRAWAL Referring Unavailable NITISH AGRAWAL Attending Unavailable NITISH AGRAWAL Referring Unavailable BARI CHOWDHURY Attending Unavailable LASHAUN BRADLEY Attending Unavailable MARTIN ELIAS Attending Unavailable MARTIN ELIAS Referring Unavailable NITISH AGRAWAL Primary Care Unavailable MARTIN ELIAS Referring Unavailable NITISH AGRAWAL Primary Care Unavailable Allergies Allergy Classification Reported Allergen(s) Allergy Type Date of Onset Reaction(s) Facility (4 sources) Angiotensin Converting Enzyme (Neris) Inhibitors; Translations: [NERIS Inhibitors] Allergy to drug (finding) 3 Hypotension [facility] 3 Repository (2 sources) Angiotensin-conv erting enzyme inhibitor agent Drug Intolerance 3 Unknown [facility] Medications Current Medications Medication Drug Class(es) Dates Sig (Normalized) Sig (Original) aspirin 81 mg delayed release oral tablet (20 sources) Platelet Aggregation Inhibitor, Nonsteroidal Anti-inflammatory Drug take 1 tablet by mouth in the morning aspirin 81 MG EC tablet Take 81 mg by mouth in the morning. Active Aspirin Active atorvastatin 20 mg oral tablet (20 sources) HMG-CoA Reductase Inhibitor Start: 01-07-2024 take 1 tablet by mouth once daily in the evening atorvastatin (Lipitor) 20 MG tablet Indications: Mixed hyperlipidemia (CMS/HCC) TAKE 1 TABLET BY MOUTH EVERY DAY IN THE EVENING FOR 90 DAYS 90 tablet 3 10/15/2024 Active Atorvastatin Jacki cium Active Blood Glucose Monitoring Suppl (OneTouch Verio Flex System) w/Device kit (18 sources) Blood Glucose Monitoring Suppl (OneTouch Verio Flex System) w/Device kit Active canagliflozin 100 mg oral tablet (18 sources) Sodium-Glucose Cotransporter 2 Inhibitor take 1 tablet by mouth once daily canagliflozin (Invokana) 100 mg Take 1 tablet (100 mg) by mouth once daily. Active Invokana Active carvedilol 6.25 mg oral tablet (20 sources) alpha-Adrenergic Feroz, beta-Adrenergic Feroz Start: 01-16-2024 take 1 tablet by mouth twice daily at mealtime carvedilol (Coreg) 6.25 mg tablet Indications: Multiple vessel coronary artery disease , Hypertension, unspecified type TAKE 1 TABLET BY MOUTH TWICE A DAY WITH FOOD 180 tablet 3 04/17/2024 Active Carvedilol Activ e ciclopirox 10 mg/ml [...] lfate Active dapagliflozin 5 mg oral tablet (20 sources) Sodium-Glucose Cotransporter 2 Inhibitor Start: 03-03-2024 End: 03-03-2025 take 1 tablet by mouth once daily dapagliflozin (Farxiga) 5 MG Indications: Type 2 diabetes mellitus with other circulatory complications Take 1 tablet (5 mg) by mouth Daily 90 tablet 3 03/03/2024 03/03/2025 Active 0.5 ml dulaglutide 3 mg/ml auto-injector (16 sources) GLP-1 Receptor Agonist End: 01-28-2025 dulaglutide (Trulicity) 1.5 mg/0.5 mL pen injector injection Inject under the skin. 01/28/2025 Discontinued (Therapy completed) Trulicity 0.75 M G/0.5ML Subcutaneous Solution Pen-injector as directed Quantity: 0 Refills: 0 Ordered: 27-Sep-2021 DO Active fenofibrate 145 mg oral tablet (20 sources) Peroxisome Proliferator Receptor alpha Agonist Start: 08-31-2023 take 1 tablet by mouth once daily fenofibrate (Tricor) 145 mg tablet Indications: Hyperlipidemia, unspecified hyperlipidemia type TAKE 1 TABLET BY MOUTH EVERY DAY 90 tablet 3 03/05/2024 Active Fenofibrate Acti ve hydrOXYzine hydrochloride 25 mg oral tablet (1 source) Antihistamine Start: 01-29-2025 take 2 tablets by mouth twice daily as needed for anxiety hydrOXYzine HCl (Atarax) 25 MG tablet Indications: Anxiety Take 2 tablets (50 mg) by mouth 2 (two) times a day as needed for anxiety 40 tablet 01/29/2025 Active Start: 01-29-2025 take 2 tablets by mo [facility] twice daily as needed for anxiety hydrOXYzine HCl (Atarax) 25 MG tablet Indications: Anxiety Take 2 tablets (50 mg) by mouth 2 (two) times a day as needed for anxiety 40 tablet 01/29/2025 Active 24 hr isosorbide mononitrate 60 mg extended release oral tablet (20 sources) Nitrate Vasodilator Start: 10-20-2021 End: 12-09-2025 take 1 tablet by mouth once daily isosorbide mononitrate ER (Imdur) 60 mg 24 hr tablet Indications: Angina pectoris, unspecified , Hypertension, unspecified type Take 1 tablet (60 mg) by mouth once daily. 90 tablet 3 12/09/2024 12/09/2025 Active Start: 10-20-2021 [facility] daily Isosorbide Mononitrate ER 30 MG Oral Tablet Extended Release 24 Hour TAKE 1 TABLET DAILY. Quantity: 90 Refills: 3 Ordered: 20-Oct-2021 Helga Flores DO Start : 20-Oct-2021 Active ammonium lactate 120 mg/ml topical lotion (2 sources) Start: 11-25-2024 ammonium lacta te (Lac-Hydrin) 12 % lotion APPLY DAILY TO DRY AREAS ON FEET 11/25/2024 Active levothyroxine sodium 0.2 mg oral tablet (20 sources) l-Thyroxi ne Start: 06-11-2023 End: 07-28-2024 take 1 tablet by mouth once daily levothyroxine (Synthroid, Levoxyl) 200 MCG tablet Indications: Other specified hypothyroidism TAKE 1 TABLET BY MOUTH EVERY DAY 90 tablet 3 07/28/2024 Active Synthroid Active 24 hr metFORMIN hydrochlorid e 500 mg extended release oral tablet (20 sources) Biguanide Start: 03-03-2024 metFORMIN XR 5 00 mg 24 hr tablet 1 tablet (500 mg) 2 times daily (morning and late afternoon). 03/03/2024 Active Start: 08-06-2023 End: 09-02-2024 take 1 tablet by mouth twice daily metFORMIN XR (Glucophage-XR) 500 MG 24 hr tablet Indications: Type 2 diabetes mellitus with other circulatory complications TAKE 1 TABLET BY MOUTH TWICE A DAY 180 tablet 1 09/02/2024 Active take 1 tablet by rob th every twelve hours metFORMIN, OSM, (Fortamet) 500 mg 24 hr tablet Take 1 tablet (500 mg) by mouth every 12 hours. Do not crush, chew, or split. Active take 1 tablet by rob th every twelve hours at mealtime metFORMIN HCl - 500 MG Oral Tablet TAKE 1 TABLET EVERY 12 HOURS WITH FOOD. Quantity: 0 Refills: 0 Ordered: 23-Jan-2023 DO Active take 1 tablet by rob th once daily metFORMIN HCl - 1000 MG Oral Tablet TAKE 1 TABLET EVERY 12 HOURS DAILY. Quantity: 0 Refills: 0 Ordered: 27-Sep-2021 DO Active metFORMIN HCl Ac tive nitroglycerin 0.4 mg sublingual tablet (20 sources) Nitrate Vasodilator Start: 10-15-2024 nitroglyce rin (Nitrostat) 0.4 mg SL tablet Indications: Arteriosclerotic cardiovascular disease (ASCVD) , History of coronary artery bypass graft , Status post angioplasty Place 1 tablet (0.4 mg) under the tongue every 5 minutes if needed for chest pain. 100 tablet 1 10/15/2024 Active Nitrostat Alexy jenkins Ozempic 1 mg/dose (4 mg/3 mL) pen injector (1 source) Start: 03-04-2024 End: 01-28-2025 inject 1 mg by subcutaneous injection every week Ozempic 1 mg/dose (4 mg/3 mL) pen injector Inject 1 mg under the skin 1 (one) time per week. 03/04/2024 01/28/2025 Discontinued (Dose adjustment) Ozempic 2 mg/dose (8 mg/3 mL) pen injector (1 source) Start: 11-23-2024 Ozempic 2 mg/d ose (8 mg/3 mL) pen injector Inject 2 mg under the skin every 7 days. 11/23/2024 Active Semaglutide, 2 MG/DOSE, (Ozempic, 2 MG/DOSE,) 8 MG/3ML solution pen-injector (12 sources) Start: 09-01-2024 inject 2 mg by subcutaneous injection every week Semaglutide, 2 MG/DOSE, (Ozempic, 2 MG/DOSE,) 8 MG/3ML solution pen-injector Indications: Type 2 diabetes mellitus with other circulatory complications Inject 2 mg under the skin 1 (one) time per week 9 mL 3 09/01/2024 Active Start: 09-01-2024 inject 2 mg by subcu taneous injection every week Semaglutide, 2 MG/DOSE, (Ozempic, 2 MG/DOSE,) 8 MG/3ML solution pen-injector Indications: Type 2 diabetes mellitus with other circulatory complications (CMS/HCC) Inject 2 mg under the skin 1 (one) time per week 9 mL 3 09/01/2024 Active sertraline 50 mg oral tablet (1 source) Serotonin Reuptake Inhibitor Start: 01-29-2025 End: 07-28-2025 take 1 tablet by mouth once daily sertraline (Zoloft) 50 MG tablet Indications: Anxiety Take 1 tablet (50 mg) by mouth Daily 30 tablet 5 01/29/2025 07/28/2025 Active Completed/Discontinued Medications Medication Drug Class(es) Dates [...] [OTH NONTRAUM SUBARACHNOID HEMORR] Onset: 11-22-2022 Chronic Anxiety disorders (2 sources) Anxiety; Translations: [Anxiety disorder, unspecified] 01-29-2025 Chronic Cardiac dysrhythmias (20 sources) Palpitations; Translations: [Tachycardia] Onset: 01-28-2025 01-28-2025 Episodic Chronic kidney disease (20 sources) Chronic kidney disease stage 3A ; Translations: [Stage 3a chronic kidney disease (CKD)] Onset: 08-09-2023 08-09-2023 Chronic Chronic ulcer of skin (9 sources) Non-pressure chronic ulcer of other part of right foot limited to breakdown of skin; Translations: [Non-pressure chronic ulcer of other part of right foot with fat layer exposed] Onset: 03-28-2022 Chronic Congestive heart failure; nonhypertensive (11 sources) Congestive heart failure stage C; Translations: [Congestive heart failure, unspecified] Onset: 08-31-2023 08-31-2023 Chronic Coronary atherosclerosis and other heart disease (20 sources) Multi vessel coronary artery disease; Translations: [Coronary atherosclerosis of unspecified type of vessel, [place] or graft] Onset: 03-29-2016 01-29-2024 Chronic Coronary atherosclerosis and other heart disease (2 sources) Presence of aortocoronary bypass graft; Translations: [Presence of aortocoronary bypass graft] Onset: 08-31-2023 Episodic Diabetes mellitus with complications (20 sources) Type 2 diabetes mellitus with diabetic neuropathy, unspecified; Translations: [Type 2 diabetes mellitus with hyperglycemia] Onset: 03-29-2016 Chronic Diabetes mellitus without complication (20 sources) Diabetes mellitus; Translations: [Diabetes mellitus without mention of complication, type II or unspecified type, not stated as uncontrolled] Onset: 08-31-2023 08-31-2023 Chronic Disorders of lipid metabolism (20 sources) Hyperlipidemia; Translations: [Other and unspecified hyperlipidemia] Onset: 12-05-2022 01-29-2024 Chronic Esophageal disorders (18 sources) Gastroesophageal reflux disease without esophagitis; Translations: [...] RT ANKLE FOOT] Onset: 03-28-2022 Chronic Osteoarthritis (18 sources) Osteoarthritis of knee; Translations: [Osteoarthritis of knee, unspecified] Onset: 03-29-2016 08-06-2023 Chronic Other acquired deformities (1 source) Contracture, left ankle; Translations: [CONTRACTURE LEFT ANKLE] Onset: 12-05-2022 Chronic Other aftercare (2 sources) computer terminal operator (current) use of insulin; Translations: [computer terminal operator (current) use of insulin (Multi)] Onset: 08-31-2023 Episodic Other bone disease and musculoskeletal deformities (2 sources) Absence of toe; Translations: [Acquired absence of other right toe(s)] 08-04-2024 Episodic Other circulatory disease (2 sources) Peripheral vascular angioplasty status; Translations: [Peripheral vascular angioplasty status] Onset: 08-31-2023 Episodic Other nervous system disorders (8 sources) Difficulty walking; Translations: [Difficulty in walking, not elsewhere classified] Onset: 03-29-2016 01-28-2025 Chronic Other nutritional; endocrine; and metabolic disorders (10 sources) Obesity; Translations: [Obesity, unspecified] Chronic Other nutritional; endocrine; and metabolic disorders (2 sources) Body mass index (BMI) 28.0-28.9, adult; Translations: [Body mass index (BMI) 28.0-28.9, adult] Onset: 01-28-2025 Episodic Other skin disorders (5 sources) Corns and callosities; Translations: [CORNS AND CALLOSITIES] Onset: 05-30-2022 Episodic Peripheral and visceral atherosclerosis (2 sources) Arteriosclerotic vascular disease 01-28-2025 Chronic Poisoning by nonmedicinal substances (1 source) Toxic effect of unspecified spider venom, undetermined, initial encounter Episodic Residual codes; unclassified (2 sources) Family history of malignant neoplasm of thyroid; Translations: [Family history of malignant neoplasm of other organs or systems] 06-16-2024 Episodic Residual codes; unclassified (2 sources) Other specified health status; Translations: [Other specified health status] Onset: 01-29-2024 Episodic Sprains and strains (2 sources) Sprain of foot; Translations: [Sprain of foot, left] Episodic Thyroid disorders (5 sources) Hypothyroidism, unspecified; Translations: [Acquired hypothyroidism] Onset: [...] TOES ACQ RT FOOT] Onset: 07-13-2022 Episodic Administrative/social admission (8 sources) Reduced mobility; Translations: [Other reduced mobility] Onset: 03-29-2016 01-28-2025 Episodic Deficiency and other anemia (18 sources) Anemia; Translations: [Anemia, unspecified] Onset: 03-29-2016 08-06-2023 Episodic Mood disorders (7 sources) Mood disorders Onset: 12-04-2024 12-04-2024 Mycoses (5 sources) Tinea unguium; Translations: [TINEA UNGUIUM] Onset: 10-24-2022 Episodic Other aftercare (1 source) computer terminal operator (current) use of aspirin; Translations: [ROLL FILLER CURRENT USE OF ASPIRIN] Onset: 03-28-2022 Episodic Other aftercare (1 source) Other terminal operator (current) drug therapy; Translations: [OTH HALFWAY CURRENT DRUG THERAPY] Onset: 03-28-2022 Episodic Other bone disease and musculoskeletal deformities (1 source) Acquired absence of other right toe(s); Translations: [ACQUIRED ABSENCE OTHER RIGHT TOES] Onset: 12-05-2022 Episodic Other circulatory disease (20 sources) Patient post angioplasty; Translations: [Other postprocedural status] Onset: 08-31-2023 01-29-2024 Episodic Other connective tissue disease (1 source) Plantar fascial fibromatosis; Translations: [PLANTAR FASCIAL FIBROMATOSIS] Onset: 12-05-2022 Episodic Other connective tissue disease (4 sources) Pain in right foot; Translations: [PAIN IN RIGHT FOOT] Onset: 11-28-2022 Episodic Other connective tissue disease (8 sources) Muscle weakness; Translations: [Muscle weakness (generalized)] Onset: 03-29-2016 01-28-2025 Episodic Other inflammatory condition of skin (2 sources) Seborrheic dermatitis; Translations: [Other seborrheic dermatitis] 06-27-2024 Episodic Other inflammatory condition of skin (2 sources) Erythema of skin; Translations: [Other specified erythematous conditions] 06-27-2024 Episodic Other non-traumatic joint disorders (1 source) Other specified joint disorders, left ankle and foot; Translations: [OTHER SPEC JOINT D/O LT ANKLE FOOT] Onset: 12-05-2022 Episodic Other nutritional; endocrine; and metabolic disorders (12 sources) Overweight in adulthood with body mass index of 25 or more but less than 30; Translations: [Overweight] Onset: 01-29-2024 01-29-2024 Episodic Other screening for suspected conditions (not mental disorders or infectious disease) (18 sources) Cardiovascular stress test abnormal; Translations: [Other nonspecific abnormal results of function study of cardiovascular system] Onset: 08-31-2023 08-31-2023 Episodic Other skin disorders (1 source) Other [...] pharyngitis, unspecified Onset: 10-10-2021 Resolved: 10-10-2021 Episodic Residual codes; unclassified (8 sources) Never smoked tobacco; Translations: [Other specified health status] Onset: 01-29-2024 01-29-2024 Episodic Skin and subcutaneous tissue infections (1 source) Cellulitis of right lower limb; Translations: [CELLULITIS OF RIGHT LOWER LIMB] Onset: 03-28-2022 Episodic Superficial injury; contusion (1 source) Blister (nonthermal), right lesser toe(s), initial encounter; Translations: [BLISTER NONTHERM RT LESSR TOES INIT] Onset: 03-28-2022 Episodic Unclassified (14 sources) Never smoked tobacco; Translations: [Never a smoker] Unclassified (2 sources) Onset: 01-29-2024 01-29-2024 Results Test Name Value Interpretation Reference Range Facility ALL BASIC METABOLIC PANELon 01-28-2025 Anion gap [Moles/Vol] 13.7 mmol/L [facility] Calcium [Mass/Vol] 8.8 mg/dL 8.5 - 10. 1 mg/dL [facility] Chloride [Moles/Vol] 104 mmol/L 98 - 10 7 mmol/L [facility] CO2 [Moles/Vol] 25.7 mmol/L 21.0 - 32.0 mmol/L [facility] Creatinine [Mass/Vol] 1.39 mg/dL High 0.70 - 1.30 mg/dL [facility] GFR/1.73 sq M.predicted CKD-EPI (S/P/Bld) [Vol rate/Area] >60 >=60 mL/min/1.73m 2 [facility] Glucose [Mass/Vol] 150 mg/dL High 74 - 106 mg/dL [facility] Potassium [Moles/Vol] 4.4 mmol/L 3.5 - 5.1 mmol/L [facility] Sodium [Moles/Vol] 139 mmol/L 136 - 145 mmol/L [facility] TBH EGFR-NON AF GREENLANDIC 51 Low >=60 mL/min/1.73m 2 [facility] Urea nitrogen [Mass/Vol] 25 mg/dL High 7.0 - 18.0 mg/dL [facility] Urea nitrogen/Creatinine [Mass ratio] 18 mg/mg [facility] ALL PRO BNPon 01-28-2025 NT PRO B TYPE NATRIURETIC PEPT 1185 pg/mL High NINF - 900.0 pg/mL [facility] [employer] No Panel Informationon 01-28 Interpretation and review of laboratory results Abnormal [facility] HbA1c (Bld) [Mass fraction]o n 12-01-2024 Interpretation and review of laboratory results [facility] Cell countson 12-01-2024 HbA1c (Bld) [Mass fraction] 7.7 % [facility] [employer] HbA1c (Bld) [Mass fraction]o n 09-01-2024 Interpretation and review of laboratory results Abnormal [facility] [employer] [facility] - Hematology and Cell countson 09-01-2024 HbA1c (Bld) [Mass fraction] 8.6 % [facility] [employer] No Panel Informationon 06-27 [facility] Carcinoembryonic Ag [Mass/Vo l]on 06-20-2024 Performing Organization Information Site ID: QPT Name: [facility] Address: [address] [place] [address], [address] [place] [id number] Director: Edil Bedolla MD [facility] Laboratory - Chemistry and C hemistry - challengeon 06-20-2024 Calcitonin [Mass/Vol] 6 pg/mL NINF - 10 pg/mL [facility] Comment on above: This test was performed using the Siemens Chemiluminescent method. Values obtained with different assay methods cannot be used interchangeably. Calcitonin levels, regardless of value, should not be interpreted as absolute evidence of the presence or absence of the disease. Carcinoembryonic Ag [Mass/Vol] ng/mL See Note: ng/mL [facility] Comment on above: Reference Range: Non-Smoker: <2.5 Smoker: <5.0 This test was performed using the Siemens chemiluminescent method. Values obtained from different assay methods cannot be used interchangeably. CEA levels, regardless of value, should not be interpreted as absolute evidence of the presence or absence of disease. No Panel Informationon 06-20 Performing Organization Information Site ID: [facility] Name: [facility] [place] [place] Address: [address] [place] [address] [place] [id number] Director: Huan Tate M.D.,PhD [facility] US THYROIDon 06-16-2024 [...] report is generated using voice recognition reporting ([employer]). On occasion [employer] erroneously drops words from [...] report is generated using voice recognition reporting ([employer]). On occasion [employer] erroneously drops words from [...] report is generated using voice recognition reporting ([employer]). On occasion [employer] erroneously drops words from the report or replaces the spoken word with similar sounding words. Please call with any questions/concerns regarding this report.* Dictated and transcribed 06/16/2024/[place] This report has been electronically signed and approved by the interpreting radiologist. Electronically Signed Martin Christianson II, M.D. 2024-06-16 16:43:23 [facility] Radiology Study observation (narrative) [facility] US Thyroid glandOrdered By: Martin Christianson on 06-16-2024 [facility] Work Phone: Office Visit (Cardiology)on 01-23-2023 [...] up in 1 year Chief Complaint JANICE FORD is being seen for a 6 month follow-up of. 67-year-old gentleman returns for follow-up, former patient of Dr. Flores now seeing me for the first time. 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 Last heart catheterization from March [address] Castillo is reviewed; revealing: [place]ccluded LAD, patent WALL [...] are negat (more content not included)... Normal [employer] Tobacco Screening.on 023 Adult depression screening assessment No [facility] [employer] 250 DO Work Phone: Fall risk assessment a) No falls within the last year [facility] [employer] 250 DO Work Phone: Tobacco use status [facility]PH[facility] b) No [facility] [employer] 250 DO Work Phone: ACID FAST SMEAR AND CXon Acid Fast Culture Negative Normal [facility] Comment on above: Result Comment: No a monse fast bacilli isolated after 6 weeks. Performed By: #### A FB #### [facility] [address] [place] [address] Dr. Balta Gorman Acid Fast Smear Negative Normal [facility] Comment on above: Performed By: #### A FB #### [facility] [address] [place] [address] Dr. Balta Gorman [employer] Specimen Processing Tissue Grinding Normal [facility] Comment on above: Performed By: #### A FB #### [facility] [address] [place] [address] Dr. Balta Gorman FUNGAL CULTUREon 07-11-2022 Fungus (Mycology) Culture Final report Normal [facility] Comment on above: Performed By: #### C XFUN #### [facility] [address] [place] [address] Dr. Balta Gorman Fungus Stain Final report Normal [facility] Comment on above: Performed By: #### C XFUN #### [facility] [address] [place], [place] [id number] Dr. Balta Gorman Result 1 Comment Normal [facility] [facility] Comment on above: Result Comment: FRANCISCA/ Calcofluor preparation: no fungus observed. Performed By: #### C XFUN #### [facility] [address] [place] [address] Dr. Balta Gorman Result Comment: No y east or mold isolated after 4 weeks. WOUND CULTUREon 06-15-2022 Bacteria identified Aer cx Nom (Unsp spec) Final report Normal [facility] Comment on above: Performed By: #### A FB #### [facility] [address] [place] [address] Dr. Balta Gorman Result 1 Comment Normal [facility] Comment on above: Result Comment: No g rowth in 36 - 48 hours. Performed By: #### A FB #### [facility] [address] [place] [address] Dr. Balta Gorman GRAM STAINon 06-12-2022 DIPHTHEROIDS Normal The [facility] Comment on above: Performed By: #### C VDTBH #### [facility] [address] [place] [address] Dr. Balta Gorman EPITHELIALS Normal The [facility] Comment on above: Performed By: #### C VDTBH #### [facility] [address] [place] [address] Dr. Balta Gorman FUNGAL ELEMENTS Normal The [facility] Comment on above: Performed By: #### C VDTBH #### [facility] [address] [place] [address] Dr. Balta CAVAZOS NEG BACILLI Normal The [facility] Comment on above: Performed By: #### C VDTBH #### [facility] [address] [address] [address] Balta CAVAZOS NEG DIPPLOCOCCI Normal The [facility] Comment on above: Performed By: #### C VDTBH #### [facility] [address] [place] [address] Dr. Balta Gorman GRAM POS BACILLI Normal The [facility] Comment on above: Performed By: #### C VDTBH #### [facility] [address] [address] [address] Balta Gorman GRAM POSITIVE COCCI Normal [facility] Comment on above: Performed By: #### C VDTBH #### [facility] [address] [address] [address] Balta Gorman GRAM STAIN SOURCE Rt 4th Toe Bone Normal Th e [facility] Comment on above: Performed By: #### C VDTBH #### [facility] [address] [address] [address] Balta Gorman GS_DIPTH Normal [facility] Comment on above: Performed By: #### C VDTBH #### [facility] [address] [address] [address] Balta Gorman WBC NONE SEEN [facility] Comment on above: Performed By: #### C VDTBH #### [facility] [address] [address] [address] Balta Gorman POINT OF CARE GLUCOSEon Glucose [Mass/Vol] 168 mg/dL Critically high [address] [place] [address] Comment on above: Performed By: #### P OCGLUC ####[facility] [address] [address]Dr. Balta Gorman Glucose [Mass/Vol] 161 mg/dL Critically high [address] [place] [address] Comment on above: Performed By: #### P OCGLUC #### [facility] [address] [address] [address] Balta Gorman Covid-19 PCR ([facility]on SARS-CoV-2 (COVID-19) RNA DERICK+probe Ql (Unsp spec) Not detected Normal NOT DETECTED The [facility] Comment on above: Result Comment: This test is not yet approved or cleared by the [place] FDA. When there are no FDA-approved or cleared tests available, and other criteria are met, FDA can make tests available under an emergency access mechanism called an Emergency Use Authorization (EUA). The EUA for this test is supported by the [place] of Health and Human Service's (HHS's) declaration [...] with SARS-CoV-2. Performed By: #### C VDTBH ####[facility] [address] [address]Dr. Balta Gorman PROF CHEM 8 (BAS METB)on Anion gap [Moles/Vol] 13.3 mmol/L Normal [facility] Comment on above: Performed By: #### C VDTBH #### [facility] [address] [place] [address] Dr. Balta Gorman Calcium [Mass/Vol] 8.7 mg/dL Normal 8.5-10.1 [facility] Comment on above: Performed By: #### C VDTBH #### [facility] [address] [address] [address] Balta Gorman Chloride [Moles/Vol] 106 mmol/L Normal 98-107 [facility] Comment on above: Performed By: #### C VDTBH #### [facility] [address] [address] [address] Balta Gorman CO2 [Moles/Vol] 23.9 mmol/L Normal 21.0-32.[address] [facility] Comment on above: Performed By: #### C VDTBH #### [facility] [address] [address] [address] Balta Gorman Creatinine [Mass/Vol] 1.24 mg/dL Normal 0.70-1.30 [facility] Comment on above: Performed By: #### C VDTBH #### [facility] [address] [address] [address] Balta Gorman EGFR-AF GREENLANDIC >60 Normal >=[address] [facility] Comment on above: Performed By: #### C VDTBH #### [facility] [address] [address] [address] Balta Gorman EGFR-NON AF GREENLANDIC 58 mL/min/1.73m2 Critically low >=60 [facility] Comment on above: Performed By: #### C VDTBH #### [facility] [address] [address] [address] Balta Gorman Glucose [Mass/Vol] 158 mg/dL Critically high 74-106 [facility] Comment on above: Performed By: #### C VDTBH #### [facility] [address] [address] [address] Balta Gorman Potassium [Moles/Vol] 4.2 mmol/L Normal 3.5-5.1 [facility] Comment on above: Performed By: #### C VDTBH #### [facility] [address] [address] [address] Balta Gorman Sodium [Moles/Vol] 139 mmol/L Normal 136-145 [facility] Comment on above: Performed By: #### C VDTBH #### [facility] [address] [address] [address] Balta Gorman Urea nitrogen [Mass/Vol] 19.0 mg/dL Critically high 7.0-18.0 [facility] Comment on above: Performed By: #### C VDTBH #### [facility] [address] [address] [address] Balta Gorman Urea nitrogen/Creatinine [Mass ratio] 15.3 mg/mg Normal [facility] Comment on above: Performed By: #### C VDTBH #### [facility] [address] [address] [address] Balta Gorman ACID FAST SMEAR AND CXon Acid Fast Culture Negative Normal [facility] Comment on above: Result Comment: No a monse fast bacilli isolated after 6 weeks. Performed By: #### A FB ####[facility] [address] [address]Dr. Balta Gorman Acid Fast Smear Negative Normal [facility] Comment on above: Performed By: #### A FB ####[facility] [address] [place], [place] [address]MfDr. 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 Balta Gorman FUNGAL CULTUREon 05-05-2022 Fungus (Mycology) Culture Final report Normal [facility] Comment on above: Performed By: #### A FB #### [facility] [address] [place], [place] [address] Dr. Balta Gorman Fungus Stain Final report Normal [facility] Comment on above: Performed By: #### A FB #### [facility] [address] [place], [place] [address] Dr. Balta Gorman Result 1 Comment Normal [facility] Comment on above: Result Comment: FRANCISCA/ Calcofluor preparation: no fungus observed. Performed By: #### A FB #### [facility] [address] [place], [place] [address] Dr. Balta Gorman Result Comment: No y [...] lose weight.; Status:Complete - Retrospective Authorization; Done: [id number] SocHx: Never a smoker Tobacco Use Screening; Status:Complete; Done: [id number] Patient Instructions By signing my name below, I, Franchesca Adan LPN.,[place], attest that this documentation has been prepared [...] CATH RESULTS. History of Present Illness Mr. Ford is a 67-year-old male who is seen back today for follow-up on his history of coronary disease. He had remote bypass surgery that was done back in 1992 at [facility] in [place]. 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 This was redilated and stented. He had a recent episode at cardiac rehab in [place] and because of this was seen in [...] Recorded: 01May2022 09:28AM Heart Rate80, L Radial Urtgfzxt00, LUE, Sitting Ucgszeded14, LUE, Sitting Height6 ft 1 in Jxldxa285 lb BMI Tjbehxngrd07.42 kg/m2 BSA Calculated2.25 Tobacco Useb) No Falls Screening (Age 18+)a) No falls within the last year Signatures Electronically signed by : Helga Flores DO; May 01 2022 11:18AM EST (Author) Normal [employer] Tobacco Screening.on 022 Fall risk assessment a) No falls within the last year [facility] [employer] Ice Cream 250 DO Work Phone: Tobacco use status [facility] b) No [facility] Heart-Amanda 250 DO Work Phone: XR FOOT LT [...] JOSE MARTIN WHITAKER Date: 2022-04-14 10:08 Normal The [facility] TISSUE CULTUREon 04-07-2022 Anaerobic Culture, Extended Incubation Final report Normal [facility] Comment on above: Performed By: #### A FB #### [facility] [address] [place] [address] Dr. Balta Gorman Result 1 Comment Normal The [facility] Comment on above: Result Comment: No g rowth in 56 - 72 hours. Performed By: #### A FB #### [facility] [address] [place] [address] Dr. Balta Gorman Result Comment: No g rowth after 14 days. Tissue Culture Final report Normal [facility] Comment on above: Performed By: #### A FB #### [facility] [address] [place] [address] Dr. Balta Gorman WOUND CULTUREon 03-26-2022 Antimicrobial Susceptibility Comment Normal [facility] Comment on above: Result Comment: S = Susceptible; I = Intermediate; R = Resistant P = Positive; N = Negative MICS are expressed in micrograms per mL Antibiotic RSLT#1 RSLT#2 RSLT#3 RSLT#4 Ciprofloxacin R Clindamycin S Erythromycin S Gentamicin S Levofloxacin R Linezolid S Oxacillin R Penicillin R Rifampin S Tetracycline S Trimethoprim/Sulfa R Vancomycin S Performed By: #### A FB #### [facility] [address] [place] [address] Dr. Balta Gorman Bacteria identified Aer cx Nom (Unsp spec) Final report Abnormal The [facility] Comment on above: Performed By: #### A FB #### [facility] [address] [address] [address] Balta Gorman Result 1 Comment Abnormal The [facility] Comment on above: Result Comment: Meth icillin - resistant Staphylococcus aureus Based on resistance to oxacillin this isolate would be resistant to all currently available beta-lactam antimicrobial agents, with the exception of the newer cephalosporins with anti-MRSA activity, such as Ceftaroline Heavy growth Performed By: #### A FB #### [facility] [address] [address] [address] Balta Gorman CBC AUTO DIFFon 03-24-2022 BASO # 0.0 103/ul Normal 0.0-0.1 [facility] Comment on above: Performed By: #### C BC ####[facility] [address] [address]Dr. Balta Gorman Basophils/100 WBC (Bld) 0.5 % Normal 0.2-2.0 [facility] Comment on above: Performed By: #### C BC ####[facility] [address] [address]Dr. Balta Gorman EO # 0.1 103/ul Normal 0.0-0.7 [facility] Comment on above: Performed By: #### C BC ####[facility] [address] [address]Dr. Balta Gorman Eosinophils/100 WBC (Bld) 1.1 % Normal 0.9-7.0 [facility] Comment on above: Performed By: #### C BC ####[facility] [address] [address]DrPaola Gorman Erythrocyte distribution width (RBC) [Ratio] 16.9 % Critically high 11.0-15.0 [facility] Comment on above: Performed By: #### C BC ####[facility] [address] [place], [place] [address]Dr. Balta Gorman Hematocrit (Bld) [Volume fraction] 34.5 % Critically low 42.0-54.0 [facility] Comment on above: Performed By: #### C BC ####[facility] [address] [address]DrPaola Balta Sherif Hemoglobin (Bld) [Mass/Vol] 10.2 g/dL Critically low 14.0-18.0 [facility] Comment on above: Performed By: #### C BC ####[facility] [address] [address]DrPaola Chavarriabenja Sherif IG # 0.03 10e3/ul Normal 0.00-0.03 [facility] Comment on above: Performed By: #### C BC ####[facility] [address] [place], [place] [address]DrPaola Gorman IG % 0.4 % Normal 0.0-0.5 [facility] Comment on above: Performed By: #### C BC ####[facility] [address] [place], [place] [address]DrPaola Gorman LYMPH # 1.6 103/ul Normal 1.2-3.8 [facility] Comment on above: Performed By: #### C BC ####[facility] [address] [place], [place] [address]DrPaola Gorman Lymphocytes/100 WBC (Bld) 18.4 % Critically low 20.5-60.0 [facility] Comment on above: Performed By: #### C BC ####[facility] [address] [address]DrPaola Gorman MANUAL DIFF REQ NO Normal [facility] Comment on above: Performed By: #### C BC ####[facility] [address] [address]DrPaola Gorman MCH (RBC) [Entitic mass] 22.7 pg Critically low 25.9-34.0 [facility] Comment on above: Performed By: #### C BC ####[facility] [address] [address]DrPaola Gorman MCHC (RBC) [Mass/Vol] 29.6 g/dL Critically low 29.9-35.2 [facility] Comment on above: Performed By: #### C BC ####[facility] [address] [address]DrPaola Gorman MCV (RBC) [Entitic vol] 76.7 fL Critically low 80.0-94.0 [facility] Comment on above: Performed By: #### C BC ####[facility] [address] [address]DrPaola Gorman MONO # 0.9 103/ul Critically high 0.3-0.8 [facility] Comment on above: Performed By: #### C BC ####[facility] [address] [address]DrPaola Gorman Monocytes/100 WBC (Bld) 11.1 % Normal 1.7-12.0 [facility] Comment on above: Performed By: #### C BC ####[facility] [address] [place], [place] [address]DrPaola Gorman NEUT # 5.8 103/ul Normal 1.4-6.5 [facility] Comment on above: Performed By: #### C BC ####[facility] [address] [place], [place] [address]DrPaola Gorman Neutrophils/100 WBC (Bld) 68.5 % Normal 43.0-75.0 [facility] Comment on above: Performed By: #### C BC ####[facility] [address] [place], [place] [address]DrPaola Gorman Platelet mean volume (Bld) [Entitic vol] 10.2 fL Normal 9.5-13.5 [facility] Comment on above: Performed By: #### C BC ####[facility] [address] [place], [place] [address]DrPaola Gorman PLT 285 103/ul Normal 150-450 [facility] Comment on above: Performed By: #### C BC ####[facility] [address] [address]DrPaola Gorman RBC 4.50 106/ul Critically low 4.70-6.10 [facility] Comment on above: Performed By: #### C BC ####[facility] [address] [address]DrPaola Gorman WBC 8.5 103/ul Normal 4.0-11.0 [facility] Comment on above: Performed By: #### C BC ####[facility] [address] [address]DrPaola Gorman POINT OF CARE GLUCOSEon 03-06 Glucose [Mass/Vol] 209 mg/dL Critically high 74-106 [facility] Comment on above: Performed By: #### P OCGLUC #### [facility] [address] [address] [address] Balta Gorman PROF CHEM 8 (BAS METB)on Anion gap [Moles/Vol] 13.7 mmol/L Normal [facility] Comment on above: Performed By: #### B MP ####[facility] [address] [address]DrPaola Gorman Calcium [Mass/Vol] 8.1 mg/dL Critically low 8.5-10.1 [facility] Comment on above: Performed By: #### B MP ####[facility] [address] [address]Dr. Balta Gorman Chloride [Moles/Vol] 105 mmol/L Normal 98-107 [facility] Comment on above: Performed By: #### B MP ####[facility] [address] [address]DrPaola Gorman CO2 [Moles/Vol] 23.0 mmol/L Normal 21.0-32.[address] [facility] Comment on above: Performed By: #### B MP ####[facility] [address] [address]DrPaola Gorman Creatinine [Mass/Vol] 1.15 mg/dL Normal 0.70-1.30 [facility] Comment on above: Performed By: #### B MP ####[facility] [address] [address]DrPaola Gorman EGFR-AF GREENLANDIC >60 Normal >=60 [facility] Comment on above: Performed By: #### B MP ####[facility] [address] [address]Dr. Balta Gorman EGFR-NON AF GREENLANDIC >60 Normal >=60 [facility] Comment on above: Performed By: #### B MP ####[facility] [address] [address]Dr. Balta Gorman Glucose [Mass/Vol] 214 mg/dL Critically high 74-106 [facility] Comment on above: Performed By: #### B MP ####[facility] [address] [address]Dr. Balta Gorman Potassium [Moles/Vol] 3.7 mmol/L Normal 3.5-5.1 [facility] Comment on above: Performed By: #### B MP ####[facility] [address] [address]DrPaola Gorman Sodium [Moles/Vol] 138 mmol/L Normal 136-145 [facility] Comment on above: Performed By: #### B MP ####[facility] [address] [address]Dr. Balta Gorman Urea nitrogen [Mass/Vol] 21.0 mg/dL Critically high 7.0-18.0 [facility] Comment on above: Performed By: #### B MP ####[facility] [address] [address]DrPaola Gorman Urea nitrogen/Creatinine [Mass ratio] 18.3 mg/mg Normal [facility] Comment on above: Performed By: #### B MP ####[facility] [address] [place] [address]DrPaola Gorman CBC AUTO DIFFon 03-23-2022 BASO # 0.1 103/ul Normal 0.0-0.1 [facility] Comment on above: Performed By: #### C VDTBH #### [facility] [address] [address] [address] Balta Gorman Basophils/100 WBC (Bld) 1.0 % Normal 0.2-2.0 [facility] Comment on above: Performed By: #### C VDTBH #### [facility] [address] [place] [address] Dr. Balta Gorman EO # 0.3 103/ul Normal 0.0-0.7 [facility] Comment on above: Performed By: #### C VDTBH #### [facility] [address] [place] [address] Dr. Balta Gorman Eosinophils/100 WBC (Bld) 4.5 % Normal 0.9-7.0 [facility] Comment on above: Performed By: #### C VDTBH #### [facility] [address] [place] [address] Dr. Balta Gorman Erythrocyte distribution width (RBC) [Ratio] 17.0 % Critically high 11.0-15.0 [facility] Comment on above: Performed By: #### C VDTBH #### [facility] [address] [place] [address] Dr. Balta Gorman Hematocrit (Bld) [Volume fraction] 35.7 % Critically low 42.0-54.0 [facility] Comment on above: Performed By: #### C VDTBH #### [facility] [address] [place] [address] Dr. Balta Gorman Hemoglobin (Bld) [Mass/Vol] 10.6 g/dL Critically low 14.0-18.0 [facility] Comment on above: Performed By: #### C VDTBH #### [facility] [address] [place] [address] Dr. Balta Gorman IG # 0.03 10e3/ul Normal 0.00-0.03 [facility] Comment on above: Performed By: #### C VDTBH #### [facility] [address] [place] [address] Dr. Balta Gorman IG % 0.4 % Normal 0.0-0.5 [facility] Comment on above: Performed By: #### C VDTBH #### [facility] [address] [address] [address] Balta Gorman LYMPH # 1.8 103/ul Normal 1.2-3.8 [facility] Comment on above: Performed By: #### C VDTBH #### [facility] [address] [place] [address] Dr. Balta Gorman Lymphocytes/100 WBC (Bld) 25.6 % Normal 20.5-60.0 [facility] Comment on above: Performed By: #### C VDTBH #### [facility] [address] [place] [address] Dr. Balta Gorman MANUAL DIFF REQ NO Normal [facility] Comment on above: Performed By: #### C VDTBH #### [facility] [address] [place] [address] Dr. Balta Gorman MCH (RBC) [Entitic mass] 22.8 pg Critically low 25.9-34.0 [facility] Comment on above: Performed By: #### C VDTBH #### [facility] [facility] [address] [place] [address] Dr. Balta Gorman MCHC (RBC) [Mass/Vol] 29.7 g/dL Critically low 29.9-35.2 [facility] Comment on above: Performed By: #### C VDTBH #### [facility] Laboratory [address] [place] [address] Dr. Balta Gorman MCV (RBC) [Entitic vol] 76.9 fL Critically low 80.0-94.0 [facility] Comment on above: Performed By: #### C VDTBH #### [facility] Laboratory [address] [place] [address] Dr. Balta Gorman MONO # 1.0 103/ul Critically high 0.3-0.8 The [facility] Comment on above: Performed By: #### C VDTBH #### [facility] Laboratory [address] [place] [address] Dr. Balta Gorman Monocytes/100 WBC (Bld) 13.8 % Critically high 1.7-12.0 [facility] Comment on above: Performed By: #### C VDTBH #### [facility] Laboratory [address] [address] [address] Balta Gorman NEUT # 3.9 103/ul Normal 1.4-6.5 [facility] Comment on above: Performed By: #### C VDTBH #### [facility] Laboratory [address] [address] [address] Balta Gorman Neutrophils/100 WBC (Bld) 54.7 % Normal 43.0-75.0 [facility] Comment on above: Performed By: #### C VDTBH #### [facility] [address] [address] [address] Balta Gorman Platelet mean volume (Bld) [Entitic vol] 10.5 fL Normal 9.5-13.5 [facility] Comment on above: Performed By: #### C VDTBH #### [facility] [address] [place] [address] Dr. Balta Gorman PLT 271 103/ul Normal 150-450 [facility] Comment on above: Performed By: #### C VDTBH #### [facility] [address] [address] [address] Balta Gorman RBC 4.64 106/ul Critically low 4.70-6.10 [facility] Comment on above: Performed By: #### C VDTBH #### [facility] [address] [place] [address] Dr. Balta Gorman WBC 7.2 103/ul Normal 4.0-11.0 [facility] Comment on above: Performed By: #### C VDTBH #### [facility] [address] [place] [address] Dr. Balta Gorman GLYCOHEMOGLOBIN A1Con 2021 ADA RECOMMENDATION SEE BELOW Normal [facility] Comment on above: Result Comment: ADA RECOMMENDED LIMIT 4.0 - 6.0 ADA THERAPEUTIC TARGET < 7.0 ACTION SUGGESTED > 7.0 Performed By: #### A 1C #### [facility] [address] [address] [address] Balta Gorman Glucose [Mass/Vol] 177 mg/dL Normal [facility] Comment on above: Performed By: #### A 1C #### [facility] [address] [address] [address] Balta Gorman HbA1c (Bld) [Mass fraction] 7.8 % Critically high 4.5-6.2 [facility] Comment on above: Performed By: #### A 1C #### [facility] Laboratory [address] [address] [address] Balta Gorman GRAM STAINon 03-23-2022 COMMENTS NO ORGANISMS OBSERVED Normal [facility] Comment on above: Performed By: #### A FB #### [facility] [address] [address] [address] Balta Gorman DIPHTHEROIDS Normal [facility] Comment on above: Performed By: #### A FB #### [facility] [address] [address] [address] Balta Gorman EPITHELIALS Normal [facility] Comment on above: Performed By: #### A FB #### [facility] [address] [address] [address] Balta Gorman FUNGAL ELEMENTS Normal [facility] Comment on above: Performed By: #### A FB #### [facility] [address] [place] [address] Dr. Balta CAVAZOS NEG BACILLI Normal [facility] Comment on above: Performed By: #### A FB #### [facility] [address] [address] [address] Balta CAVAZOS NEG DIPPLOCOCCI Normal [facility] Comment on above: Performed By: #### A FB #### [facility] [address] [address] [address] Balta Gorman GRAM POS BACILLI Normal [facility] Comment on above: Performed By: #### A FB #### [facility] [address] [place] [address] Dr. Balta Gorman GRAM POSITIVE COCCI Normal [facility] Comment on above: Performed By: #### A FB #### [facility] [address] [place] [address] Dr. Balta Gorman GRAM STAIN SOURCE r. 2nd toe bone- pos t irrigation Normal [facility] Comment on above: Performed By: #### A FB #### [facility] [address] [address] [address] Balta Gorman GS_DIPTH [facility] Comment on above: Performed By: #### A FB #### [facility] [address] [address] [address] Balta Gorman WBC RARE [facility] Comment on above: Performed By: #### A FB #### [facility] [address] [address] [address] Balta Gorman POINT OF CARE GLUCOSEon 03-05 Glucose [Mass/Vol] 209 mg/dL Critically high [facility]106 [facility] Comment on above: Performed By: #### A FB #### [facility] [address] [place] [address] Dr. Balta Gorman Glucose [Mass/Vol] 203 mg/dL Critically high [facility]106 [facility] Comment on above: Performed By: #### P OCGLUC #### [facility] [address] [place] [address] Dr. Balta Gorman Glucose [Mass/Vol] 119 mg/dL Critically high [address] [place] [address] Comment on above: Performed By: #### A FB #### [facility] [address] [place] [address] Dr. Balta Gorman Glucose [Mass/Vol] 115 mg/dL Critically high [facility]106 [facility] Comment on above: Performed By: #### A FB #### [facility] [address] [place] [address] Dr. Balta Gorman PROF CHEM 8 (BAS METB)on Anion gap [Moles/Vol] 12.2 mmol/L [facility] Comment on above: Performed By: #### A FB #### [facility] [address] [place] [address] Dr. Balta Gorman Calcium [Mass/Vol] 8.1 mg/dL Critically low 8.5-10.1 [facility] Comment on above: Performed By: #### A FB #### [facility] [address] [place] [address] Dr. Batla Gorman Chloride [Moles/Vol] 104 mmol/L Normal 98-107 [facility] Comment on above: Performed By: #### A FB #### [facility] [address] [address] [address] Balta Gorman CO2 [Moles/Vol] 24.5 mmol/L Normal 21.0-32.0 [facility] Comment on above: Performed By: #### A FB #### [facility] [address] [place] [address] Dr. Balta Gorman Creatinine [Mass/Vol] 1.06 mg/dL Normal 0.70-1.30 [facility] Comment on above: Performed By: #### A FB #### [facility] [address] [place] [address] Dr. Balta Gorman EGFR-AF GREENLANDIC >60 Normal >=[address] [facility] Comment on above: Performed By: #### A FB #### [facility] [address] [place] [address] Dr. Balta Gorman EGFR-NON AF GREENLANDIC >60 Normal >=60 [facility] Comment on above: Performed By: #### A FB #### [facility] [address] [place] [address] Dr. Balta Gorman Glucose [Mass/Vol] 110 mg/dL Critically high 74-106 [facility] Comment on above: Performed By: #### A FB #### [facility] [address] [place] [address] Dr. Balta Gorman Potassium [Moles/Vol] 3.7 mmol/L Normal 3.5-5.1 [facility] Comment on above: Performed By: #### A FB #### [facility] [address] [place] [address] Dr. Balta Gorman Sodium [Moles/Vol] 137 mmol/L Normal 136-145 [facility] Comment on above: Performed By: #### A FB #### [facility] [address] [place] [address] Dr. Balta Gorman Urea nitrogen [Mass/Vol] 19.0 mg/dL Critically high 7.0-18.0 [facility] Comment on above: Performed By: #### A FB #### [facility] [address] [address] [address] Balta Gorman Urea nitrogen/Creatinine [Mass ratio] 17.9 mg/mg Normal [facility] Comment on above: Performed By: #### A FB #### [facility] [address] [address] [address] Balta Gorman PROTIMEon 03-23-2022 INR Coag (PPP) [Relative time] 1.06 {INR} Normal [facility] Comment on above: Performed By: #### P TT, PT ####[facility] [address] [place], [place] [address]Dr. Balta Gorman INR GUIDELINES SEE BELOW Normal [facility] Comment on above: Result Comment: PORSCHE RED INR: 2.0 - 3.0 CONDITIONS NOT LISTED BELOW 2.5 - 3.5 FOR PROSTHETIC HEART VALVE REPLACEMENT 2.5 - 3.5 RECURRENT THROMBOSIS Performed By: #### P TT, PT ####[facility] [address] [place], [place] [address]Dr. Balta Gorman PT Coag (PPP) [Time] 11.4 s Normal 9.0-11.6 [facility] Comment on above: Performed By: #### P TT, PT ####[facility] [address] [place], [place] [address]Dr. Balta Gorman PTTon 03-23-2022 aPTT Coag (Bld) [Time] 33.8 s Normal 22.3-36.2 [facility] Comment on above: Performed By: #### P TT, PT ####[facility] [address] [place], [place] [address]Dr. Balta Gorman CBC AUTO DIFFon 03-22-2022 BASO # 0.1 103/ul Normal 0.0-0.1 [facility] Comment on above: Performed By: #### C BC ####[facility] [address] [place], [place] [address]Dr. Chavarrialan Gorman Basophils/100 WBC (Bld) 0.9 % Normal 0.2-2.0 [facility] Comment on above: Performed By: #### C BC ####[facility] [address] [address]Dr. Balta Gorman EO # 0.3 103/ul Normal 0.0-0.7 [facility] Comment on above: Performed By: #### C BC ####[facility] [address] [place], [place] [address]Dr. Balta Gorman Eosinophils/100 WBC (Bld) 3.2 % Normal 0.9-7.0 [facility] Comment on above: Performed By: #### C BC ####[facility] [address] [place], [place] [address]Dr. Balta Gorman Erythrocyte distribution width (RBC) [Ratio] 17.5 % Critically high 11.0-15.0 [facility] Comment on above: Performed By: #### C BC ####[facility] [address] [place], [place] [address]Dr. Balta Gorman Hematocrit (Bld) [Volume fraction] 39.5 % Critically low 42.0-54.0 [facility] Comment on above: Performed By: #### C BC ####[facility] [address] [place], [place] [address]Dr. Balta Gorman Hemoglobin (Bld) [Mass/Vol] 11.6 g/dL Critically low 14.0-18.0 [facility] Comment on above: Performed By: #### C BC ####[facility] [address] [place], [place] [address]Dr. Balta Gorman IG # 0.03 10e3/ul Normal 0.00-0.03 [facility] Comment on above: Performed By: #### C BC ####[facility] [address] [place], [place] [address]Dr. Balta Gorman IG % 0.3 % Normal 0.0-0.5 [facility] Comment on above: Performed By: #### C BC ####[facility] [address] [address]Dr. Balta Gorman LYMPH # 1.6 103/ul Normal 1.2-3.8 [facility] Comment on above: Performed By: #### C BC ####[facility] [address] [address]Dr. Balta Gorman Lymphocytes/100 WBC (Bld) 17.7 % Critically low 20.5-60.0 [facility] Comment on above: Performed By: #### C BC ####[facility] [address] [address]Dr. Balta Gorman MANUAL DIFF REQ NO Normal [facility] Comment on above: Performed By: #### C BC ####[facility] [address] [address]Dr. Balta Gorman MCH (RBC) [Entitic mass] 22.5 pg Critically low 25.9-34.0 [facility] Comment on above: Performed By: #### C BC ####[facility] [address] [place], [place] [address]Dr. Balta Gorman MCHC (RBC) [Mass/Vol] 29.4 g/dL Critically low 29.9-35.2 [facility] Comment on above: Performed By: #### C BC ####[facility] [address] [address]Dr. Balta Gorman MCV (RBC) [Entitic vol] 76.6 fL Critically low 80.0-94.0 [facility] Comment on above: Performed By: #### C BC ####[facility] [address] [address]Dr. Balta Gorman MONO # 1.0 103/ul Critically high 0.3-0.8 [facility] Comment on above: Performed By: #### C BC ####[facility] [address] [place], [place] [address]Dr. Balta Gorman Monocytes/100 WBC (Bld) 11.0 % Normal 1.7-12.0 [facility] Comment on above: Performed By: #### C BC ####[facility] [address] [place], [place] [address]Ji. Aruabenja Gorman NEUT # 5.9 103/ul Normal 1.4-6.5 [facility] Comment on above: Performed By: #### C BC ####[facility] [address] [place], [place] [address]Cg. Balta Gorman Neutrophils/100 WBC (Bld) 66.9 % Normal 43.0-75.0 [facility] Comment on above: Performed By: #### C BC ####[facility] [address] [address]Dr. Balta Gorman Platelet mean volume (Bld) [Entitic vol] 10.4 fL Normal 9.5-13.5 [facility] Comment on above: Performed By: #### C BC ####[facility] [address] [place], [place] [address]Xc. Balta Gorman PLT 319 103/ul Normal 150-450 [facility] Comment on above: Performed By: #### C BC ####[facility] [address] [address]Dr. Balta Gorman RBC 5.16 106/ul Normal 4.70-6.10 [facility] Comment on above: Result Comment: SLIG HT HYPOCHROMIA Performed By: #### C BC ####[facility] [address] [address]Dr. Balta Gorman WBC 8.8 103/ul Normal 4.0-11.0 [facility] Comment on above: Performed By: #### C BC ####[facility] [address] [address]DrPaola Gorman CULTURE BLOODon 03-22-2022 Microscopic examination of blood, culture Culture Observations: No growth at 5 days. Isolate 1 BC_BA_NA Normal [facility] Comment on above: Performed By: #### C VDTB #### [facility] Laboratory [address] [place], [place] [address] Dr. Balta Gorman Microscopic examination of blood, culture Culture Observations: No growth at 5 days. Isolate 1 BC_BA_NA Normal [facility] Comment on above: Performed By: #### C VDTBH #### [facility] Laboratory [address] [address] [address] Balta Gorman Covid-19 PCR ([facility])on 03-05 SARS-CoV-2 (COVID-19) RNA DERICK+probe Ql (Unsp spec) Not detected Normal NOT DETECTED [facility] Comment on above: Result Comment: When diagnostic testing is negative, the possibility of a false negative should be considered in the context of a patient's recent exposures and the presence of clinical signs and symptoms consistent with SARS-CoV-2. This test is not yet approved or cleared by the [place] Food and Drug Administration (FDA). This test was developed by [employer], [place], [place]. The performance characteristics of this test were validated by The [facility]. The results are not intended to be used as the sole means for clinical diagnosis or patient management decisions. The [facility] is authorized under Clinical [...] for this test is supported by the [place] of Health and Human Service's declaration that [...] used). Performed By: #### C VDTBH #### [facility] Laboratory [address] [address] [address] Balta Gorman POINT OF CARE GLUCOSEon 03-05 Glucose [Mass/Vol] 121 mg/dL Critically high 74-106 [facility] Comment on above: Performed By: #### P OCGLUC #### [facility] Laboratory [address] [place], [place] [address] Dr. Balta Gorman Glucose [Mass/Vol] 109 mg/dL Critically high 74-106 [facility] Comment on above: Performed By: #### P OCGLUC #### [facility] Laboratory [address] [place], [place] [address] Dr. Balta Gorman PROF 14(COMP METB)on 022 Albumin [Mass/Vol] 3.5 g/dL Normal 3.4-5.0 [facility] Comment on above: Performed By: #### C MP ####[facility] [address] [address]DrPaola Gorman Albumin/Globulin [Mass ratio] 0.8 {ratio} Normal [facility] Comment on above: Performed By: #### C MP ####[facility] [address] [address]DrPaola Gorman ALP [Catalytic activity/Vol] 78 U/L Normal 46-116 [facility] Comment on above: Performed By: #### C MP ####[facility] [address] [address]DrPaola Gorman ALT [Catalytic activity/Vol] 24 U/L Normal 16-63 [facility] Comment on above: Performed By: #### C MP ####[facility] [address] [address]DrPaola Gorman Anion gap [Moles/Vol] 11.9 mmol/L Normal [facility] Comment on above: Performed By: #### C MP ####[facility] [address] [address]DrPaola Gorman AST [Catalytic activity/Vol] 16 U/L Normal 15-37 [facility] Comment on above: Performed By: #### C MP ####[facility] [address] [address]DrPaola Gorman Bilirubin [Mass/Vol] 0.6 mg/dL Normal 0.2-1.0 [facility] Comment on above: Performed By: #### C MP ####[facility] [address] [address]DrPaola Gorman Calcium [Mass/Vol] 8.7 mg/dL Normal 8.5-10.1 [facility] Comment on above: Performed By: #### C MP ####[facility] [address] [address]Dr. Balta Gorman Chloride [Moles/Vol] 104 mmol/L Normal 98-107 [facility] Comment on above: Performed By: #### C MP ####[facility] [address] [address]Dr. Balta Gorman CO2 [Moles/Vol] 28.1 mmol/L Normal 21.0-32.0 [facility] Comment on above: Performed By: #### C MP ####[facility] [address] [address]Dr. Balta Gorman Creatinine [Mass/Vol] 1.24 mg/dL Normal 0.70-1.30 [facility] Comment on above: Performed By: #### C MP ####[facility] [address] [place], [place] [address]Dr. Balta Sherif EGFR-AF GREENLANDIC >60 Normal >=60 [facility] Comment on above: Performed By: #### C MP ####[facility] [address] [address]Dr. Balta Sherif EGFR-NON AF GREENLANDIC 58 mL/min/1.73m2 Critically low >=60 [facility] Comment on above: Performed By: #### C MP ####[facility] [address] [address]Dr. Balta Sherif Globulin (S) [Mass/Vol] 4.4 g/dL Normal [facility] Comment on above: Performed By: #### C MP ####[facility] [address] [address]Dr. Balta Sherif Glucose [Mass/Vol] 205 mg/dL Critically high 74-106 [facility] Comment on above: Performed By: #### C MP ####[facility] [address] [address]Dr. Balta Gorman Potassium [Moles/Vol] 4.0 mmol/L Normal 3.5-5.1 [facility] Comment on above: Performed By: #### C MP ####[facility] [address] [address]Dr. Balta Gorman Protein [Mass/Vol] 7.9 g/dL Normal 6.4-8.2 [facility] Comment on above: Performed By: #### C MP ####[facility] [address] [place], [place] [address]Dr. Balta Gorman Sodium [Moles/Vol] 140 mmol/L Normal 136-145 [facility] Comment on above: Performed By: #### C MP ####[facility] [address] [place], [place] [address]Dr. Balta Gorman Urea nitrogen [Mass/Vol] 22.0 mg/dL Critically high 7.0-18.0 [facility] Comment on above: Performed By: #### C MP ####[facility] [address] [place], [place] [address]Dr. Balta Gorman Urea nitrogen/Creatinine [Mass ratio] 17.7 mg/mg Normal [facility] Comment on above: Performed By: #### C MP ####[facility] [address] [place], [place] [address]Dr. Balta Gorman UA (CLEAN/CATCH) UNIVERSITY LECTURER/MICRO I F IND.on 03-22-2022 Bilirubin Ql (U) Negative Normal NEGATIVE [facility] Comment on above: Performed By: #### U ACSIND ####[facility] [address] [place], [place] [address]Dr. Balta Gorman Clarity (U) CLEAR Normal CLEAR [facility] Comment on above: Performed By: #### U ACSIND ####[facility] [address] [place], [place] [address]Dr. Balta Gorman Color (U) LT. YELLOW Normal YELLOW [facility] Comment on above: Performed By: #### U ACSIND ####[facility] P[address] [place], [place] [address]Dr. Balta Gorman Glucose Ql (U) >1000 Abnormal NEGATIVE [facility] Comment on above: Performed By: #### U ACSIND ####[facility] [address] [place] [address]Dr. Balta Gorman Hemoglobin Ql (U) Negative Normal NEGATIVE [facility] Comment on above: Performed By: #### U ACSIND ####[facility] Mxvwpbdhwd[address] [place], [place] [address]Dr. Balta Gorman Ketones Ql (U) Negative Normal NEGATIVE [facility] Comment on above: Performed By: #### U ACSIND ####[facility] Yvifq[address]dv[address] [place], [place] [address]Dr. Balta Gorman LEUKOCYTES Negative Normal NEGATIVE [facility] Comment on above: Performed By: #### U ACSIND ####[facility] Ip[address]lamqi[address] [place], [place] [address]Dr. Balta Gorman Nitrite Ql (U) Negative Normal NEGATIVE [facility] Comment on above: Performed By: #### U ACSIND ####[facility] Pe[address] [place], [place] [address]Dr. Balta Gorman pH (U) 6.0 [pH] Normal 5-9 [facility] Comment on above: Performed By: #### U ACSIND ####[facility] Wzejpr[address]df[address] [place], [place] [address]Dr. Balta Gorman SPEC GRAVITY 1.010 Normal 1.005-<=1.02 5 [facility] Comment on above: Performed By: #### U ACSIND ####[facility] Dmawkxwbez[address] [place], [place] [address]Dr. Balta Gorman UA PROTEIN Negative Normal NEGATIVE/ TRACE [facility] Comment on above: Performed By: #### U ACSIND ####[facility] Yihiwbfnsw[address] [place], [place] [address]Dr. Aurabenja Gorman UR MICRO IND NOT INDICATED Normal The [facility] Comment on above: Performed By: #### U ACSIND ####[facility] Nbzffg[address] [place], [place] [address]Dr. Balta Sherif Urobilinogen Qn (U) 0.2 {Jose Luis'U}/dL Normal 0.2 - 1. 0 [facility] Comment on above: Performed By: #### U ACSIND ####[facility] Xtx[address]omm1042 [place], [place] [address]Sd. Balta Gorman XR FOOT RT MIN 3 [...] by: HELGA GOLDBERG Date: 2022-03-22 15:21 Normal [facility] Blood Urea Nitrogenon 2021 Urea nitrogen [Mass/Vol] 21 mg/dL Normal - [facility] Comment on above: Performed By: #### P P, LYTES, CBC, BUN, CREAT, LIPID #### [address] COVID-19 Antigenon 2 COVID-19 Antigen Healthcare Worker?: [...] developed and its performance characteristic determined by Wunsch-Brautkle[employer] and validated at [facility]. This test has not been [...] SARS Antigen by JOSE L PERFORMED BY: [place] [address] PATHOLOGIST LABORER OPERATOR ERLIN GUPTA M.D. [facility] Comment on above: Performed By: #### S OFIANEG, COVID-19 HERMINIO #### [facility] [address] [place] [address] Coagulation Profileon 2021 aPTT Coag (Bld) [Time] 30.4 s Normal 25.1-36.5 [facility] Comment on above: Result Comment: PERF ORMED BY: [place] [address] PATHOLOGIST LABORER OPERATOR ERLIN GUPTA M.D. Performed By: #### P P, LYTES, CBC, BUN, CREAT, LIPID #### [facility] [address] [place], [place] [id number] [facility] INR Coag (PPP) [Relative time] 1.1 {INR} Normal [facility] Comment on above: Result Comment: [...] P, LYTES, CBC, BUN, CREAT, LIPID #### [address] PT Coag (PPP) [Time] 12.7 s Normal 9.0-12.9 [facility] Comment on above: Performed By: #### P P, LYTES, CBC, BUN, CREAT, LIPID #### [address] Complete Blood Count Auto Di ffon 03-10-2022 Basophils (Bld) [#/Vol] 0.1 10*3/uL Normal 0.0-0.2 [facility] Comment on above: Result Comment: PERF ORMED BY: [place] [address] PATHOLOGIST LABORER OPERATOR ERLIN GUPTA M.D. Performed By: #### P P, LYTES, CBC, BUN, CREAT, LIPID #### [address] Basophils/100 WBC (Bld) 1.6 % Normal . [facility] Comment on above: Performed By: #### P P, LYTES, CBC, BUN, CREAT, LIPID #### [address] Eosinophils (Bld) [#/Vol] 0.2 10*3/uL Normal 0.0-0.45 [facility] Comment on above: Performed By: #### P P, LYTES, CBC, BUN, CREAT, LIPID #### [address] Eosinophils/100 WBC (Bld) 3.4 % Normal . [facility] Comment on above: Performed By: #### P P, LYTES, CBC, BUN, CREAT, LIPID #### [address] Erythrocyte distribution width (RBC) [Ratio] 17.0 % High 12.0-14.8 [facility] Comment on above: Performed By: #### P P, LYTES, CBC, BUN, CREAT, LIPID #### [address] Hematocrit (Bld) [Volume fraction] 38.9 % Normal 38.8-50.0 [facility] Comment on above: Performed By: #### P P, LYTES, CBC, BUN, CREAT, LIPID #### [address] Hemoglobin (Bld) [Mass/Vol] 12.4 g/dL Low 13.0-17.0 [facility] Comment on above: Performed By: #### P P, LYTES, CBC, BUN, CREAT, LIPID #### [address] Lymphocytes (Bld) [#/Vol] 1.6 10*3/uL Normal 1.00-4.8 [facility] Comment on above: Performed By: #### P P, LYTES, CBC, BUN, CREAT, LIPID #### [address] Lymphocytes/100 WBC (Bld) 25.1 % Normal . [facility] Comment on above: Performed By: #### P P, LYTES, CBC, BUN, CREAT, LIPID #### [address] MCH (RBC) [Entitic mass] 22.6 pg Low 27.5-35.2 [facility] Comment on above: Performed By: #### P P, LYTES, CBC, BUN, CREAT, LIPID #### [address] MCV (RBC) [Entitic vol] 70.8 fL Low 83.5-101 [facility] Comment on above: Performed By: #### P P, LYTES, CBC, BUN, CREAT, LIPID #### [address] Mean Corpuscular HGB Conc 31.9 g/dL Low 32.5-35.6 [facility] Comment on above: Performed By: #### P P, LYTES, CBC, BUN, CREAT, LIPID #### [facility] [address] [place] [address] [place] Monocytes (Bld) [#/Vol] 0.7 10*3/uL Normal 0.0-0.8 [facility] Comment on above: Performed By: #### P P, LYTES, CBC, BUN, CREAT, LIPID #### [facility] [address] Monocytes/100 WBC (Bld) 10.2 % Normal . [facility] Comment on above: Performed By: #### P P, LYTES, CBC, BUN, CREAT, LIPID #### [address] Neutrophils (Bld) [#/Vol] 3.8 10*3/uL Normal 1.8-7.7 [facility] Comment on above: Performed By: #### P P, LYTES, CBC, BUN, CREAT, LIPID #### [address] Neutrophils/100 WBC (Bld) 59.7 % Normal . [facility] Comment on above: Performed By: #### P P, LYTES, CBC, BUN, CREAT, LIPID #### [address] Nucleated RBC/100 WBC (Bld) [Ratio] 0.1 % Normal 0-0.5 [facility] Comment on above: Performed By: #### P P, LYTES, CBC, BUN, CREAT, LIPID #### [place] [address] [place] Platelet mean volume (Bld) [Entitic vol] 8.6 fL Normal 6.6-10.1 [facility] Comment on above: Performed By: #### P P, LYTES, CBC, BUN, CREAT, LIPID #### [place] [address] [place] Platelets (Bld) [#/Vol] 270 10*3/uL Normal 150-450 [facility] Comment on above: Performed By: #### P P, LYTES, CBC, BUN, CREAT, LIPID #### [address] RBC (Bld) [#/Vol] 5.49 10*6/uL Normal 3.90-5.60 [facility] Comment on above: Performed By: #### P P, LYTES, CBC, BUN, CREAT, LIPID #### [address] WBC (Bld) [#/Vol] 6.4 10*3/uL Normal 4.5-11.0 [facility] Comment on above: Performed By: #### P P, LYTES, CBC, BUN, CREAT, LIPID #### [address] Creatinineon 03-10-2022 Creatinine [Mass/Vol] 1.01 mg/dL Normal 0.64-1.27 [facility] Comment on above: Performed By: #### P P, LYTES, CBC, BUN, CREAT, LIPID #### [address] Estimated GFR ( Raegan > 60 [facility] Comment on above: Result Comment: GFR estimated reference range: According to KDOQI guidelines, <60 ml/min/1.73m2 is sufficient to diagnose a patient with chronic kidney disease. Performed By: #### P P, LYTES, CBC, BUN, CREAT, LIPID #### [address] Estimated GFR (Non- Am > 60 [facility] Comment on above: Performed By: #### P P, LYTES, CBC, BUN, CREAT, LIPID #### [address] ECG 12 lead ECGon 03-10-2022 ECG 12 lead ECG [facility] [place] [address] [place] [address] Electrocardiograph Report Signed Patient: Janice Ford MR#: [id number] : 1955 Acct:[id number] Age/Sex: 67 / M ADM Date: 03/10/22 Loc: PS Room: Type: [facility] Attending Dr: Margaux Castillo MD Ordering Provider: Margaux Castillo MD Date of Service: 03/10/2204/26/924 ECG/ECG 12 [...] are now present Confirmed by INDIA PEREIRA FACC, ERIKA ([id number]) on 03/10/2022 10:04:07 AM Referred By: LATESHA CASTILLO Electronically Signed By:ERIKA OSBORNE MD FACC Transcribed By: MUS Signed By Erika Osborne MD, FACC 03/10/22 1004 Normal [facility] Electrolyteson 03-10-2022 Chloride [Moles/Vol] 105 mmol/L Normal 95-114 [facility] Comment on above: Performed By: #### P P, LYTES, CBC, BUN, CREAT, LIPID #### [facility] [address] CO2 [Moles/Vol] 22.9 mmol/L Normal 22.0-30.0 [facility] Comment on above: Performed By: #### P P, LYTES, CBC, BUN, CREAT, LIPID #### [facility] [address] [place] [address] [place] Potassium [Moles/Vol] 4.3 mmol/L Normal 3.5-5.1 [facility] Comment on above: Performed By: #### P P, LYTES, CBC, BUN, CREAT, LIPID #### [facility] [address] [place] [address] [place] Sodium [Moles/Vol] 137 mmol/L Normal 136-146 [facility] Comment on above: Performed By: #### P P, LYTES, CBC, BUN, CREAT, LIPID #### [facility] [address] [place] [id number] [facility] Laboratory - Chemistry and C hemistry - challengeon 03-10-2022 Cholesterol [Mass/Vol] 167\S\167 Normal 140-200 [place] [address] DO Work Phone: Comment on above: Chol less than 200 m g/dl low risk Chol 201-239 mg/dl borderline risk Chol 240 mg/dl and greater high risk Cholesterol in LDL [Mass/Vol] 80\S\80 Normal 0-100 [place] [address] DO Work Phone: Comment on above: LDL ATP III CLASSIFI CATION LDL less than 100 mg/dL Optimal LDL 100-129 mg/dL Near or above optimal LDL 130-159 mg/dL Borderline high LDL 160-189 mg/dL High LDL greater than 189 mg/dL Very high Laboratory - Microbiology an d Antimicrobial susceptibilityon 03-10-2022 SARS-CoV-2 (COVID-19) RNA DERICK+probe Ql (Unsp spec) [place] [address] DO Work Phone: Lipid Panelon 03-10-2022 Cholesterol [Mass/Vol] 167 mg/dL Normal 140-200 [facility] Comment on above: Result Comment: Chol less than 200 mg/dl low risk Chol 201-239 mg/dl borderline risk Chol 240 mg/dl and greater high risk Performed By: #### P P, LYTES, CBC, BUN, CREAT, LIPID #### [facility] [address] [place] [address] [place] Cholesterol in HDL [Mass/Vol] 21 mg/dL Low 29-71 [facility] Comment on above: Result Comment: HDL CHOL ATP-III CLASSIFICATION Cardiovascular Risk HDL > or equal to 60 mg/dL LOW HDL < 40 mg/dL HIGH Performed By: #### P P, LYTES, CBC, BUN, CREAT, LIPID #### [facility] [address] [place] [id number] [facility] Cholesterol.total/Ch olesterol in HDL [Mass ratio] 8.0 {ratio} Normal <5.0 [facility] Comment on above: Result Comment: PERF ORMED BY: [facility] [address] [place] [id number] PATHOLOGIST LABORER OPERATOR ERLIN GUPTA M.D. Performed By: #### P P, LYTES, CBC, BUN, CREAT, LIPID #### [facility] [address] LDL Cholesterol,Calculat ed 80 mg/dL Normal 0-100 [facility] Comment on above: Result Comment: LDL ATP III CLASSIFICATION LDL less than 100 mg/dL Optimal LDL 100-129 mg/dL Near or above optimal LDL 130-159 mg/dL Borderline high LDL 160-189 mg/dL High LDL greater than 189 mg/dL Very high Performed By: #### P P, LYTES, CBC, BUN, CREAT, LIPID #### [facility] [address] [place] [address] Triglyceride w/Reflex 328 mg/dL High 35-149 [facility] Comment on above: Result Comment: TRIG ATP III CLASSIFICATION TRIG less than 150 mg/dL Normal TRIG 150-199 mg/dL Borderline high TRIG 200-500 mg/dL High TRIG greater than 500 mg/dL Very high Standard traceable to the Center for Disease Conrtrol and Prevention (CDC) test method. Performed By: #### P P, LYTES, CBC, BUN, CREAT, LIPID #### [facility] [address] VLDL CHOLESTEROL 65 mg/dL Normal [facility] Comment on above: Performed By: #### P P, LYTES, CBC, BUN, CREAT, LIPID #### [facility] [address] No Panel Informationon 03-10 0.1\S\0.1 Normal 0-0.5 -[facility] [address] DO Work Phone: Comment on above: PERFORMED BY:[facility] M[place]OUGH[place], [place] [phone] MEDICAL DIRECTORERLIN GUPTA M.D. 0.2\S\0.2 Normal 0.0-0.45 [facility] [address] DO Work Phone: 0.7\S\0.7 Normal 0.0-0.8 [facility] [address] DO Work Phone: 1.6\S\1.6 Normal . -[facility] [address] DO Work Phone: 3.8\S\3.8 Normal 1.8-7.7 [facility] [address] DO Work Phone: 3.4\S\3.4 Normal . -[facility] [address] DO Work Phone: 10.2\S\10.2 Normal . -[facility] [address] DO Work Phone: 25.1\S\25.1 Normal . -[facility] [address] DO Work Phone: 59.7\S\59.7 Normal . -[facility] [address] DO Work Phone: 8.6\S\8.6 Normal 6.6-10.1 -[facility] [address] DO Work Phone: 270\S\270 Normal 150-450 -[facility] [address] DO Work Phone: 17.0\S\17.0 above high threshold 12.0-14.8 -[facility] [address] DO Work Phone: 31.9\S\31.9 below low threshold 32.5-35.6 -[facility] [address] DO Work Phone: 22.6\S\22.6 below low threshold 27.5-35.2 -[facility] [address] DO Work Phone: 70.8\S\70.8 below low threshold 83.5-101 -[facility] [address] DO Work Phone: 38.9\S\38.9 Normal 38.8-50.0 [facility] [address] DO Work Phone: 12.4\S\12.4 below low threshold 13.0-17.0 [facility] 600 DO Work Phone: 5.49\S\5.49 Normal 3.90-5.60 [facility] 600 DO Work Phone: 6.4\S\6.4 Normal 4.1-10.5 [facility] [address] DO Work Phone: 30.4\S\30.4 Normal 25.1-36.5 [facility] Work Phone: Comment on above: PERFORMED BY:[facility] [place] [place], [place] [phone] MEDICAL DIRECTORERLIN GUPTA M.D. 1.1\S\1.1 Normal [facility] 600 DO Work Phone: Comment [...] valves: 3 - 4.5 12.7\S\12.7 Normal 9.0-12.9 [facility] DO Work Phone: Negative Normal Negative [facility] DO Work Phone: Comment on above: This is a duplicate Herminio SARS Antigen (JOSE L) result to be used for statistical tracking purpose only.PERFORMED BY:[facility] [place], [place] [phone] MEDICAL DIRECTORERLIN GUPTA M.D. 22.9\S\22.9 Normal 22.0-30.0 [facility] 600 DO Work Phone: 105\S\105 Normal 95-114 [facility] 600 DO Work Phone: 4.3\S\4.3 Normal 3.5-5.1 [facility] 600 DO Work Phone: 137\S\137 Normal 136-146 [facility] 600 DO Work Phone: 21\S\21 below low threshold 29-71 [facility] 600 DO Work Phone: Comment on above: HDL CHOL ATP-III CLA SSIFICATION Cardiovascular Risk HDL > or equal to 60 mg/dL LOW HDL < 40 mg/dL HIGH > 60 Normal [facility] 600 DO Work Phone: Comment on above: GFR estimated refere nce range: According to KDOQI guidelines, <60 ml/min/1.73m2 is sufficient to diagnose a patient with chronic kidney disease. 1.01\S\1.01 Normal 0.64-1.27 [facility] 600 DO Work Phone: 8.0\S\8.0 Normal <5.0 [facility] [employer] DO Work Phone: Comment on above: PERFORMED BY:[facility] [place], [place] [phone] MEDICAL DIRECTORERLIN GUPTA M.D. 65\S\65 Normal [facility] 600 DO Work Phone: 328\S\328 above high threshold 35-149 [facility] [employer] DO Work Phone: Comment on above: TRIG ATP III CLASSIF ICATION TRIG less than 150 mg/dL Normal TRIG 150-199 mg/dL Borderline high TRIG 200-500 mg/dL High TRIG greater than 500 mg/dL Very high Standard traceable to the Center for Disease Conrtrol and Prevention (CDC) test method. Herminio Ag Negativeon 03-10-20 Herminio Ag Negative Negative Normal Negative [facility] Comment on above: Result Comment: This is a duplicate Herminio SARS Antigen (JOSE L) result to be used for statistical tracking purpose only. PERFORMED BY: [facility] [address] [place] [address] PATHOLOGIST LABORER OPERATOR ERLIN GUPTA M.D. Performed By: #### S DEEJAY CHAUID-19 HERMINIO #### [address] CARDIAC STRESS/REST INJE CTIONon 03-01-2022 [facility] CARDIAC STRESS/REST INJECTION Patient Name: JANICE FORD STUDY: MYOCARDIAL PERFUSION STRESS TEST WITH LEXISCAN Performing facility: [facility], [address] [place] [address], [address] Provider: Helga Flores DO, [facility] PCP: Dr. Vineet Agrawal Supervising provider: Ratna Elias DO, [facility] INDICATION: Angina CAD; S/P PTCA HISTORY: Gender: M; Age: 67 y/o ; Height: 185.42 cm; Weight: 106.330149 kg. High Cholesterol; CAD; Diabetes; HTN; Chest Pain; Denies smoking. Cardiac catheterization on 2021. PTCA on 2021. CABG on 1992. COMPARISON: Previous nuclear testing completed at [facility]. ACCESSION NUMBER(S): [id number]; [id number]; [id number] ORDERING CLINICIAN: EHLGA FLORES TECHNIQUE: ONE DAY protocol. Stress injection: [...] ischemia is new. Electronically signed by: MARGAUX CASTILLO MD Normal [facility] No Panel Informationon 03-01 Normal -[facility] 250 DO Work Phone: Complete Blood Count with Au to Diffon 01-23-2022 Basophils (Bld) [#/Vol] 0.08 10*3/uL Normal 0.00-0.20 [facility] Iv Therapy Nurse Comment on above: Performed By: #### C BCAD #### [facility] [address] [place], [place] [id number] Basophils/100 WBC (Bld) 1.1 % Normal [facility] Iv Therapy Nurse Comment on above: Performed By: #### C BCAD #### [facility] [address] [place], [place] [id number] Eosinophils (Bld) [#/Vol] 0.29 10*3/uL Normal 0.02-0.50 [facility] Specialist Comment on above: Performed By: #### C BCAD #### [facility] [address] [place], [place] [id number] Eosinophils/100 WBC (Bld) 4.1 % Normal [facility] Specialist Comment on above: Performed By: #### C BCAD #### [facility] [address] [place], [place] [id number] Erythrocyte distribution width (RBC) [Ratio] 17.6 % High 11.0-15.0 [facility] Specialist Comment on above: Performed By: #### C BCAD #### [facility] [address] [place], [place] [id number] Hematocrit (Bld) [Volume fraction] 41.0 % Normal 38.5-50.0 [facility] Iv Therapy Nurse Comment on above: Performed By: #### C BCAD #### [facility] [address] [place], [place] [id number] Hemoglobin (Bld) [Mass/Vol] 11.9 g/dL Low 13.0-17.1 [facility] Iv Therapy Nurse Comment on above: Performed By: #### C BCAD #### [facility] [address] [place], [place] [id number] Lymphocytes (Bld) [#/Vol] 1.8 10*3/uL Normal 0.9-3.9 [facility] Specialist Comment on above: Performed By: #### C BCAD #### [facility] [address] [place], [place] [id number] Lymphocytes/100 WBC (Bld) 25.1 % Normal [facility] Specialist Comment on above: Performed By: #### C BCAD #### [facility] [address] [place], [place] [id number] MCH (RBC) [Entitic mass] 21.9 pg Low 27.0-33.0 [facility] Iv Therapy Nurse Comment on above: Performed By: #### C BCAD #### [facility] [address] [place], [place] [id number] MCHC (RBC) [Mass/Vol] 29.0 g/dL Low 32.0-36.0 [facility] Iv Therapy Nurse Comment on above: Performed By: #### C BCAD #### [facility] [address] [place], [place] [id number] MCV (RBC) [Entitic vol] 76 fL Low 80-100 [facility] Specialist Comment on above: Performed By: #### C BCAD #### [facility] [address] [place], [place] [id number] Monocytes (Bld) [#/Vol] 0.7 10*3/uL Normal 0.2-0.9 [facility] Comment on above: Performed By: #### C BCAD #### [facility] [address] [place], [place] [id number] Monocytes/100 WBC (Bld) 9.3 % Normal [facility] Comment on above: Performed By: #### C BCAD #### [facility] [address] [place], [place] [id number] Neutrophils (Bld) [#/Vol] 4.3 10*3/uL Normal 1.5-7.8 [facility] Comment on above: Performed By: #### C BCAD #### [facility] [address] [place], [place] [id number] Neutrophils/100 WBC (Bld) 60.0 % Normal [facility] Comment on above: Performed By: #### C BCAD #### [facility] [address] [place], [place] [id number] Platelet mean volume (Bld) [Entitic vol] 10.50 fL Normal 7.50-12.50 [facility] Comment on above: Performed By: #### C BCAD #### [facility] [address] [place], [place] [id number] Platelets (Bld) [#/Vol] 306 10*3/uL Normal 140-400 [facility] Specialist Comment on above: Performed By: #### C BCAD #### [facility] [address] [place], [place] [id number] RBC (Bld) [#/Vol] 5.43 10*6/uL Normal 4.20-5.80 [facility] Comment on above: Performed By: #### C BCAD #### [facility] [address] [place], [place] [id number] RDW-SD 46.0 fL Normal 37.0-50.0 [facility] Specialist Comment on above: Performed By: #### C BCAD #### [facility] [address] [place], [place] [id number] WBC (Bld) [#/Vol] 7.1 10*3/uL Normal 3.8-11.0 [facility] Comment on above: Performed By: #### C BCAD #### [facility] [address] [place], [place] [id number] Hemoglobin A1Con 01-23-2022 EAG 182.90 Normal [facility] Comment on above: Performed By: #### A 1C #### [facility] [address] [place], [place] [id number] HbA1c (Bld) [Mass fraction] 8.0 % High 4.0-6.0 [facility] Comment on above: Performed By: #### A 1C #### [facility] [address] [place], [place] [id number] Lipid Panelon 01-23-2022 Cholesterol [Mass/Vol] 177 mg/dL Normal 125-200 [facility] Comment on above: Result Comment: Low risk < 200mg/dL Borderline risk 201-239 mg/dl High risk > or equal to 240 Performed By: #### L IPD #### [facility] [address] [place], [place] [id number] Cholesterol in HDL [Mass/Vol] 25 mg/dL Low >40 [facility] Specialist Comment on above: Result Comment: High Cardiovascular Risk HDL <40 mg/dL Low Cardiovascular Risk HDL > or equal to 60 mg/dl Performed By: #### L IPD #### [facility] [address] [place], [place] [id number] Cholesterol in LDL [Mass/Vol] 83 mg/dL Normal [facility] Comment on above: Result Comment: LDL ATP III CLASSIFICATION LDL less than 100 mg/dl Optimal LDL 100-129 mg/dl Near or above optimal LDL 130-159 Borderline high LDL 160-189 High LDL greater than 189 mg/dl Very High Performed By: #### L IPD #### [facility] [address] [place], [place] [id number] Cholesterol in VLDL [Mass/Vol] 69 mg/dL Normal [facility] Comment on above: Performed By: #### L IPD #### [facility] [address] [place], [place] [id number] Cholesterol.total/Ch olesterol in HDL [Mass ratio] 7 {ratio} Normal [facility] Iv Therapy Nurse Comment on above: Performed By: #### L IPD #### [facility] [address] [place], [place] [id number] Triglyceride [Mass/Vol] 343 mg/dL High 30-150 [facility] Iv Therapy Nurse Comment on above: Result Comment: TRIG ATPIII CLASSIFICATIONS TRIG less than 150 mg/dl Normal TRIG 150-199 mg/dl Borderline High TRIG 200-500 mg/dl High TRIG greather than 500 mg/dl Very High Performed By: #### L IPD #### [facility] [address] [place], [place] [id number] PSA SCREEN (MEDICARE)on 01-04 TPSA 0.405 ng/mL Normal <4.000 [facility] Iv Therapy Nurse Comment on above: Result Comment: PSA Test Method: ECLIA/Joseph e 601 Performed By: #### P SA MC #### [facility] [address] [place], [place] [id number] Tobacco Screening.on 022 Fall risk assessment a) No falls within the last year [facility] [employer] 250 DO Work Phone: Tobacco use status CPHS b) No [facility] [employer] 250 DO Work Phone: Laboratory - Chemistry and C hemistry - challengeon 11-07-2021 Cholesterol [Mass/Vol] 183\S\183 Normal 140-200 [facility]Amanda 250 DO Work Phone: Comment on above: Chol less than 200 m g/dl low risk Chol 201-239 mg/dl borderline risk Chol 240 mg/dl and greater high risk Cholesterol in LDL [Mass/Vol] 97\S\97 Normal 0-100 [facility] [employer] 250 DO Work Phone: Comment on above: LDL ATP III CLASSIFI CATION LDL less than 100 mg/dL Optimal LDL 100-129 mg/dL Near or above optimal LDL 130-159 mg/dL Borderline high LDL 160-189 mg/dL High LDL greater than 189 mg/dL Very high Laboratory - Microbiology an d Antimicrobial susceptibilityon 11-07-2021 SARS-CoV-2 (COVID-19) RNA DERICK+probe Ql (Unsp spec) -[facility] Heart-Amanda 250 DO Work Phone: No Panel Informationon 11-07 56.2\S\56.2 Normal . [facility] Heart-[place]ano 250 DO Work Phone: 8.5\S\8.5 Normal 6.6-10.1 [facility]-Amanda 250 DO Work Phone: 279\S\279 Normal 150-450 [facility]-[place] 250 DO Work Phone: 16.0\S\16.0 above high threshold 12.0-14.8 [facility]manda 250 DO Work Phone: 31.3\S\31.3 below low threshold 32.5-35.6 [facility]-[place] 250 DO Work Phone: 22.7\S\22.7 below low threshold 27.5-35.2 [facility]manda 250 DO Work Phone: 3.5\S\3.5 Normal 1.8-7.7 [facility]manda 250 DO Work Phone: 0.1\S\0.1 Normal 0.0-0.2 [facility]manda 250 DO Work Phone: Comment on above: PERFORMED BY:[facility] [place], [place] [phone] MEDICAL DIRECTORERLIN GUPTA M.D. 1.4\S\1.4 Normal . [facility]-Amanda 250 DO Work Phone: 4.0\S\4.0 Normal . [facility]-[place] 250 DO Work Phone: 10.2\S\10.2 Normal . [facility]mand[facility] 250 DO Work Phone: 28.2\S\28.2 Normal . [facility] 250 DO Work Phone: 0.2\S\0.2 Normal 0.0-0.45 [facility] 250 DO Work Phone: 0.6\S\0.6 Normal 0.0-0.8 [facility] 250 DO Work Phone: 1.7\S\1.7 Normal 1.00-4.8 [facility]manda 250 DO Work Phone: 72.3\S\72.3 below low threshold 83.5-101 [facility] 250 DO Work Phone: 39.8\S\39.8 Normal 38.8-50.0 [facility] 250 DO Work Phone: 12.5\S\12.5 below low threshold 13.0-17.0 [facility]manda 250 DO Work Phone: 5.50\S\5.50 Normal 3.90-5.60 [facility]manda 250 DO Work Phone: 6.2\S\6.2 Normal 4.1-10.5 [facility]manda 250 DO Work Phone: 34.4\S\34.4 Normal 25.1-36.5 [facility]manda 250 DO Work Phone: Comment on above: PERFORMED BY:[place] [address] [address] [place], [place] [phone] MEDICAL DIRECTORERLIN GUPTA M.D. 1.1\S\1.1 Normal [facility] 250 DO Work Phone: Comment [...] valves: 3 - 4.5 12.2\S\12.2 Normal 9.0-12.9 [facility]-Amanda 250 DO Work Phone: Negative Normal Negative [facility]-[place] 250 DO Work Phone: Comment on above: This is a duplicate Herminio SARS Antigen (JOSE L) result to be used for statistical tracking purpose only.PERFORMED BY:[id number] [place], [place] [phone] MEDICAL DIRECTORERLIN GUPTA M.D. 24.2\S\24.2 Normal 22.0-30.0 [facility]manda 250 DO Work Phone: 101\S\101 Normal 95-114 [facility]manda 250 DO Work Phone: 4.5\S\4.5 Normal 3.5-5.1 [facility]manda 250 DO Work Phone: 139\S\139 Normal 136-146 [facility]manda 250 DO Work Phone: 23\S\23 Normal 9-23 [facility] 250 DO Work Phone: > 60 Normal [facility]manda 250 DO Work Phone: Comment on above: GFR estimated refere nce range: According to KDOQI guidelines, <60 ml/min/1.73m2 is sufficient to diagnose a patient with chronic kidney disease. 1.14\S\1.14 Normal 0.64-1.27 [facility] 250 DO Work Phone: 9.2\S\9.2 Normal <5.0 [facility] [place] [facility] 250 DO Work Phone: Comment on above: PERFORMED BY:[facility] [place], [place] [phone] MEDICAL DIRECTORERLIN GUPTA M.D. 66\S\65 Normal [facility] 250 DO Work Phone: 329\S\329 above high threshold 35-149 [place] [address] DO Work Phone: Comment on above: TRIG ATP III CLASSIF ICATION TRIG less than 150 mg/dL Normal TRIG 150-199 mg/dL Borderline high TRIG 200-500 mg/dL High TRIG greater than 500 mg/dL Very high Standard traceable to the Center for Disease Conrtrol and Prevention (CDC) test method. 20\S\20 below low threshold 29-71 [place] [address] DO Work Phone: Comment on above: HDL CHOL ATP-III CLA SSIFICATION Cardiovascular Risk HDL > or equal to 60 mg/dL LOW HDL < 40 mg/dL HIGH [facility] CARDIAC STRESS/REST INJE CTIONon 10-12-2021 [facility] CARDIAC STRESS/REST INJECTION Patient Name: JANICE FORD STUDY: MYOCARDIAL PERFUSION STRESS TEST WITH LEXISCAN Performing facility: [facility], [address] [place] [address] [facility] Provider: Helga Flores DO, FACC PCP: Dr. Vineet Agrawal Supervising provider: Erika Osborne MD, FACC INDICATION: CAD; HISTORY: Gender: M; Age: 66 y/o ; Height: 185.42 cm; Weight: 106.907558 kg. High Cholesterol; CAD; Diabetes; HTN; Chest Pain; Denies smoking. Cardiac catheterization on 2014. PTCA on 2014. COMPARISON: Previous nuclear testing completed [id number] at [facility]. ACCESSION NUMBER(S): [id number]; [id number]; [id number] ORDERING CLINICIAN: HELGA FLORES TECHNIQUE: ONE DAY [...] down to 46%. Electronically signed by: ERIKA OSBORNE MD Normal [facility] No Panel Informationon 10-12 Normal [facility] 600 DO Work Phone: Quick Strepon 10-10-2021 S. pyogenes Org specific cx Ql (Throat) Negative [employer] Other [facility] [employer] Other Tobacco Screening.on 021 Fall risk assessment a) No falls within the last year [facility] 250 DO Work Phone: Tobacco use status [facility] b) No [facility]manda 250 DO Work Phone: Vital Signs Date Time Vital Sign Value Performing Clinician Facility 01-29-2025 08:49-0400 Body height 185.4 cm Latha HARRIS Work Phone: [facility] 01-29-2025 08:49-0400 Body mass index (BMI) [Ratio] 28.1 kg/m2 Latha Caicedo PA Work Phone: [facility] 01-29-2025 08:49-0400 Body temperature 97.3 [degF] Latha Caicedo PA Work Phone: [facility] 01-29-2025 08:49-0400 Body weight 96.62 kg Latha Caicedo PA Work Phone: [facility] 01-29-2025 08:49-0400 Diastolic blood pressure 72 mm[Hg] Latha Caicedo PA Work Phone: [facility] 01-29-2025 08:49-0400 Heart rate 76 /min Latha Caicedo PA Work Phone: [facility] 01-29-2025 08:49-0400 SaO2% (BldA) [Mass fraction] 96 % Latha Caicedo PA Work Phone: [facility] 01-29-2025 08:49-0400 Systolic blood pressure 130 mm[Hg] Latha Caicedo PA Work Phone: [facility] 01-28-2025 10:05-0400 Body height 185.4 cm Martin Elias DO Work Phone: [facility] 01-28-2025 10:05-0400 Body mass index (BMI) [Ratio] 28.68 kg/m2 Martin Elias DO Work Phone: [facility] 01-28-2025 10:05-0400 Body weight 98.61 kg Martin Elias DO Work Phone: [facility] 01-28-2025 10:05-0400 Diastolic blood pressure 66 mm[Hg] Martin Elias DO Work Phone: [facility] 01-28-2025 10:05-0400 Heart rate 82 /min Martin Elias DO Work Phone: [facility] 01-28-2025 10:05-0400 Systolic blood pressure 116 mm[Hg] Martin Elias DO Work Phone: [facility] 12-04-2024 11:36-0500 Body height 185.4 cm Joyce Loyd CYLINDER HONER Work Phone: [facility] 12-04-2024 11:36-0500 Body mass index (BMI) [Ratio] 28.23 kg/m2 Joyce Geney CYLINDER HONER Work Phone: [facility] 12-04-2024 11:36-0500 Body temperature 98.01 [degF] Joyce Loyd CYLINDER HONER Work Phone: [facility] 12-04-2024 11:36-0500 Body weight 97.07 kg Joyce Loyd CYLINDER HONER Work Phone: [facility] 12-04-2024 11:36-0500 Diastolic blood pressure 78 mm[Hg] Joyce Millsy CYLINDER HONER Work Phone: [facility] 12-04-2024 11:36-0500 Heart rate 62 /min Joyce Loyd CYLINDER HONER Work Phone: [facility] 12-04-2024 11:36-0500 SaO2% (BldA) [Mass fraction] 99 % Joyce Millsy CYLINDER HONER Work Phone: [facility] 12-04-2024 11:36-0500 Systolic blood pressure 120 mm[Hg] Joyce Millsy CYLINDER HONER Work Phone: [facility] 12-04-2024 11:15-0500 Body height 185.4 cm Nitish Agrawal DO Work Phone: [facility] 12-04-2024 11:15-0500 Body mass index (BMI) [Ratio] 28.23 kg/m2 Nitish Agrawal DO Work Phone: [facility] 12-04-2024 11:15-0500 Body temperature 98.01 [degF] Nitish Agrawal DO Work Phone: [facility] 12-04-2024 11:15-0500 Body weight 97.07 kg Nitish Agrawal DO Work Phone: [facility] 12-04-2024 11:15-0500 Diastolic blood pressure 78 mm[Hg] Nitish Agrawal DO Work Phone: [facility] 12-04-2024 11:15-0500 Heart rate 62 /min Nitish Agrawal DO Work Phone: [facility] 12-04-2024 11:15-0500 SaO2% (BldA) [Mass fraction] 99 % Nitish Agrawal DO Work Phone: [facility] 12-04-2024 11:15-0500 Systolic blood pressure 120 mm[Hg] Nitish Agrawal DO Work Phone: [facility] 12-01-2024 09:09-0500 Body height 185.4 cm Lashaun Petznick DO Work Phone: [facility] 12-01-2024 09:09-0500 Body mass index (BMI) [Ratio] 28.5 kg/m2 Lsahaun Petznick DO Work Phone: [facility] 12-01-2024 09:09-0500 Body temperature 98.29 [degF] Lashaun Petznick DO Work Phone: [facility] 12-01-2024 09:09-0500 Body weight 97.98 kg Lashaun Petznick DO Work Phone: [facility] 12-01-2024 09:09-0500 Diastolic blood pressure 82 mm[Hg] Lashaun Petznick DO Work Phone: [facility] 12-01-2024 09:09-0500 Heart rate 83 /min Lashaun Petznick DO Work Phone: [facility] 12-01-2024 09:09-0500 SaO2% (BldA) [Mass fraction] 96 % Lashaun Petznick DO Work Phone: [facility] 12-01-2024 09:09-0500 Systolic blood pressure 140 mm[Hg] Lashaun Petznick DO Work Phone: [facility] 09-01-2024 09:14-0400 Body height 185.4 cm Lashaun Petznick DO Work Phone: [facility] 09-01-2024 09:14-0400 Body mass index (BMI) [Ratio] 29.5 kg/m2 Lashaun Petznick DO Work Phone: [facility] 09-01-2024 09:14-0400 Body temperature 96.6 [degF] Lashaun Petznick DO Work Phone: [facility] 09-01-2024 09:14-0400 Body weight 101.42 kg Lashaun Petznick DO Work Phone: [facility] 09-01-2024 09:14-0400 Diastolic blood pressure 72 mm[Hg] Lashaun Petznick DO Work Phone: [facility] 09-01-2024 09:14-0400 Heart rate 69 /min Lashaun Petznick DO Work Phone: [facility] 09-01-2024 09:14-0400 SaO2% (BldA) [Mass fraction] 96 % Lashaun Petznick DO Work Phone: [facility] 09-01-2024 09:14-0400 Systolic blood pressure 124 mm[Hg] Lashaun Petznick DO Work Phone: [facility] 06-16-2024 15:30-0400 Body height 185.4 cm Nitish Agrawal DO Work Phone: [facility] 06-16-2024 15:30-0400 Body mass index (BMI) [Ratio] 29.42 kg/m2 Nitish Agrawal DO Work Phone: [facility] 06-16-2024 15:30-0400 Body temperature 98.29 [degF] Nitish Agrawal DO Work Phone: [facility] 06-16-2024 15:30-0400 Body weight 101.15 kg Nitish Agrawal DO Work Phone: [facility] 06-16-2024 15:30-0400 Diastolic blood pressure 80 mm[Hg] Nitish Agrawal DO Work Phone: [facility] 06-16-2024 15:30-0400 Heart rate 80 /min Nitish Agrawal DO Work Phone: [facility] 06-16-2024 15:30-0400 Systolic blood pressure 122 mm[Hg] Nitish Agrawal DO Work Phone: [facility] 01-29-2024 14:36-0400 Body height 185.4 cm Martin Elias DO Work Phone: [facility] 01-29-2024 14:36-0400 Body mass index (BMI) [Ratio] 29.69 kg/m2 Martin Elias DO Work Phone: [facility] 01-29-2024 14:36-0400 Body weight 102.06 kg Martin Elias DO Work Phone: [facility] 01-29-2024 14:36-0400 Diastolic blood pressure 70 mm[Hg] Martin Elias DO Work Phone: [facility] 01-29-2024 14:36-0400 Heart rate 86 /min Martin Elias DO Work Phone: [facility] 01-29-2024 14:36-0400 Systolic blood pressure 138 mm[Hg] Martin Elias DO Work Phone: [facility] 05-10-2023 12:10-0400 Body height 185.42 cm Barbara Ellis Other [employer] Other 05-10-2023 12:10-0400 Body mass index (BMI) [Ratio] 30.26 kg/m2 Barbara Ellis Other [employer] Other 05-10-2023 12:10-0400 Body temperature 97.8 [degF] Barbara Ellis Other [employer] Other 05-10-2023 12:10-0400 Body weight 104.06 kg Barbara Ellis Other [employer] Other 05-10-2023 12:10-0400 Respiratory rate 18 /min Barbara Ellis Other [employer] Other 05-10-2023 12:10-0400 SaO2% (BldA) [Mass fraction] 97 % Barbara Ellis Other [employer] Other 01-23-2023 11:01-0400 Body height 185.42 cm Nitish Agrawal Work Phone: [facility] 250 DO Work Phone: 01-23-2023 11:01-0400 Body mass index (BMI) [Ratio] 30.08 kg/m2 Nitish Agrawal Work Phone: [facility] 250 DO Work Phone: 01-23-2023 11:01-0400 Body surface area Derived from formula 2.28 m2 Nitish Agrawal Work Phone: [facility] 250 DO Work Phone: 01-23-2023 11:01-0400 Body weight 103.42 kg Nitish Agrawal Work Phone: [email or web address] 250 DO Work Phone: 01-23-2023 11:01-0400 Diastolic blood pressure 60 mm[Hg] Nitish Agrawal Work Phone: [facility] 250 DO Work Phone: 01-23-2023 11:01-0400 Heart rate 60 /min Nitish Agrawal Work Phone: [facility] 250 DO Work Phone: 01-23-2023 11:01-0400 Systolic blood pressure 108 mm[Hg] Nitish Agrawal Work Phone: [facility]manda 250 DO Work Phone: 05-01-2022 09:28-0400 Body height 185.42 cm Nitish Agrawal Work Phone: [facility]manda 250 DO Work Phone: 05-01-2022 09:28-0400 Body mass index (BMI) [Ratio] 29.42 kg/m2 Nitish Agrawal Work Phone: [facility] 250 DO Work Phone: 05-01-2022 09:28-0400 Body surface area Derived from formula 2.25 m2 Nitish Agrawal Work Phone: [facility] 250 DO Work Phone: 05-01-2022 09:28-0400 Body weight 101.15 kg Nitish Agrawal Work Phone: [facility] 250 DO Work Phone: 05-01-2022 09:28-0400 Diastolic blood pressure 50 mm[Hg] Nitish Agrawal Work Phone: [facility] 250 DO Work Phone: 05-01-2022 09:28-0400 Heart rate 80 /min Nitish Agrawal Work Phone: [facility] 250 DO Work Phone: 05-01-2022 09:28-0400 Systolic blood pressure 80 mm[Hg] Nitish Agrawal Work Phone: [facility] 250 DO Work Phone: 03-01-2022 07:30-0400 40 1 Nitish Agrawal Work Phone: [facility] 600 DO Work Phone: Comment on above: [id number] 11-22-2021 10:31-0500 Body height 182.88 cm Nitish Agrawal Work Phone: [facility] 250 DO Work Phone: 11-22-2021 10:31-0500 Body mass index (BMI) [Ratio] 30.38 kg/m2 Nitish Agrawal Work Phone: [facility] 250 DO Work Phone: 11-22-2021 10:31-0500 Body surface area Derived from formula 2.24 m2 Nitish Agrawal Work Phone: [facility] 250 DO Work Phone: 11-22-2021 10:31-0500 Body weight 101.61 kg Nitish Agrawal Work Phone: [facility] 250 DO Work Phone: 11-22-2021 10:31-0500 Diastolic blood pressure 72 mm[Hg] Nitish Agrawal Work Phone: [facility] 250 DO Work Phone: 11-22-2021 10:31-0500 Heart rate 66 /min Nitish Agrawal Work Phone: [facility] 250 DO Work Phone: 11-22-2021 10:31-0500 Systolic blood pressure 124 mm[Hg] Nitish Agarwal Work Phone: [facility] 250 DO Work Phone: 10-10-2021 10:00-0500 Body height 185.42 cm Jaelyn Espinal Other [employer] Other 10-10-2021 10:00-0500 Body temperature 97.5 [degF] Jaelyn Espinal Other [employer] Other 10-10-2021 10:00-0500 SaO2% (BldA) [Mass fraction] 99 % Jaelyn Espinal Other [facility] [employer] Other 09-27-2021 09:48-0500 Body height 182.88 cm Nitish Agrawal Work Phone: [facility] 250 DO Work Phone: 09-27-2021 09:48-0500 Body mass index (BMI) [Ratio] 30.65 kg/m2 Nitish Agrawal Work Phone: [facility] 250 DO Work Phone: 09-27-2021 09:48-0500 Body surface area Derived from formula 2.24 m2 Nitish Agrawal Work Phone: [facility] 250 DO Work Phone: 09-27-2021 09:48-0500 Body weight 102.51 kg Nitish Agrawal Work Phone: [facility] 250 DO Work Phone: 09-27-2021 09:48-0500 Diastolic blood pressure 59 mm[Hg] Nitish Agrawal Work Phone: [facility] 250 DO Work Phone: 09-27-2021 09:48-0500 Heart rate 73 /min Nitish Agrawal Work Phone: [facility] 250 DO Work Phone: 09-27-2021 09:48-0500 Systolic blood pressure 129 mm[Hg] Nitish Agrawal Work Phone: [facility] 250 DO Work Phone: 09-27-2021 09:48-0500 46 1 Nitish Agrawal Work Phone: [facility] 250A [place] Work Phone: Comment on above: [id number] Encounters Encounter Date Encounter Type Care Provider Facility Start: 01-30-2025 End: 01-30-2025 ambulatory [facility] Ambulatory Start: 01-29-2025 End: 01-29-2025 Bamboo flowsheet Latha Caicedo PA Work Phone: [facility] [address] Start: 01-29-2025 End: 01-29-2025 Bamboo flowsheet Latha Caicedo PA Work Phone: [facility] [address] Start: 01-29-2025 End: 01-29-2025 Office outpatient visit 15 minutes Latha Caicedo PA Work Phone: [facility] [address] Comment on above: Anxiety (Primary Dx) Start: 01-29-2025 End: 01-29-2025 ambulatory LATHA CAICEDO Not Available Start: 01-28-2025 End: 01-28-2025 Clinisync Result Encounter Generic External Data Provider [facility] External Department Unsolicited Start: 01-28-2025 End: 01-28-2025 Clinisync Result Encounter Generic External Data Provider [facility] External Department Unsolicited Start: 01-28-2025 End: 01-28-2025 Office outpatient visit 40 minutes [facility] DO Work Phone: [facility] Comment on above: Arteriosclerotic car diovascular disease (ASCVD); History of coronary artery bypass graft; Status post angioplasty; Ischemic cardiomyopathy; Angina pectoris; Palpitations; Tachycardia; Mixed hyperlipidemia; Other specified diabetes mellitus with other specified complication, with long-term current use of insulin; Body mass index (BMI) of 28.0 to 28.9 in adult; Never smoked tobacco; ACC/AHA stage C congestive heart failure due to ischemic cardiomyopathy Start: 01-28-2025 End: 01-28-2025 ambulatory [facility] Ambulatory Start: 12-04-2024 End: 12-04-2024 Bamboo flowsheet Nitish Agrawal DO Work Phone: [facility] [address] Start: 12-04-2024 End: 12-04-2024 Bamboo flowsheet Nitish Agrawal DO Work Phone: [facility] [address] Start: 12-04-2024 End: 12-04-2024 Assay of hemosiderin, quant Joyce Loyd CYLINDER HONER Work Phone: [facility] Start: 12-04-2024 End: 12-04-2024 Patient encounter procedure Joyce Loyd CYLINDER HONER Work Phone: [facility] 230 Comment on above: Routine general medi jacki examination at health care facility (Primary Dx); Encounter for vaccination; Hypertension, unspecified type (CMS/HCC); Stage 3a chronic kidney disease (CKD) (CMS/HCC); Type 2 diabetes mellitus with stage 3a chronic kidney disease, without long-term current use of insulin (HCC) (CMS/HCC); Hyperlipidemia, unspecified hyperlipidemia type (CMS/HCC) Start: 12-04-2024 End: 12-04-2024 Office outpatient visit 25 minutes Nitish Agrawal DO Work Phone: [facility] 230 Comment on above: Hypothyroidism (acqu ired) (CMS/HCC) (Primary Dx) Start: 12-04-2024 End: 12-04-2024 ambulatory JOYCE LOYD Not Available Start: 12-01-2024 End: 12-01-2024 Office outpatient visit 25 minutes Lashaun Bradley DO Work Phone: [facility] [phone] Comment on above: Type 2 diabetes lisandro itus with other circulatory complications (CMS/HCC) (Primary Dx); Type 2 diabetes mellitus with stage 3a chronic kidney disease, without long-term current use of insulin (HCC) (CMS/HCC); Preventative health care; Screening for prostate cancer Start: 12-01-2024 End: 12-01-2024 Patient encounter status Lashaun Judie Bradley DO Work Phone: [facility] Start: 12-01-2024 End: 12-01-2024 ambulatory LASHAUN Dimas PETZNICK Not Available Start: 09-01-2024 End: 09-01-2024 Office outpatient visit 25 minutes Lashaun Tamayoick DO Work Phone: [facility] [phone] Comment on above: Type 2 diabetes lisandro itus with other circulatory complications (CMS/HCC) Start: 09-01-2024 End: 09-01-2024 ambulatory LASHAUN Judie PETZNICK Not Available Start: 08-29-2024 End: 08-29-2024 Telephone encounter Lashaun Frederickjay DO Work Phone: [facility] [address] Start: 06-27-2024 End: 06-27-2024 Bamboo flowsheet Barikvng Doran PA Work Phone: [facility] Start: 06-27-2024 End: 06-27-2024 Bamboo flowsheet Bari Andreea PA Work Phone: [facility] Start: 06-27-2024 End: 06-27-2024 Office outpatient new 45 minutes Bari Northeim PA Work Phone: [facility] Comment on above: Other seborrheic matthew matitis (Primary Dx); Acrochordon; Other specified erythematous conditions; Inflamed seborrheic keratosis Start: 06-27-2024 End: 06-27-2024 ambulatory BARI DORAN Not Available Start: 06-16-2024 End: 06-16-2024 ambulatory NITISH AGRAWAL Not Available Start: 06-16-2024 End: 06-16-2024 Office outpatient visit 25 minutes Nitish Agrawal DO Work Phone: [facility] 230 Comment on above: Hypothyroidism (acqu ired) [...] (CMS/HCC); Acquired absence of other right toe(s) (CMS/HCC) Start: 06-16-2024 End: 06-16-2024 ambulatory NITISH AGRAWAL Not Available Start: 06-02-2024 End: 06-02-2024 ambulatory LASHAUN Dimas ISAIASICK Not Available Start: 03-03-2024 End: 03-03-2024 ambulatory LASHAUN M ISAIASICK Not Available Start: 01-29-2024 End: 01-29-2024 Office outpatient visit 25 minutes Martin Zavala Curt DO Work Phone: [facility] Comment on above: Arteriosclerotic car diovascular disease (ASCVD); History of coronary artery bypass graft; Multiple vessel coronary artery disease; Status post angioplasty; Hypertension, unspecified type; Mixed hyperlipidemia; Other specified diabetes mellitus with other specified complication, with long-term current use of insulin ([facility]); BMI 29.0-29.9,adult; Never smoked tobacco Start: 05-10-2023 End: 05-10-2023 ambulatory Barbara Ellis Other [facility] [employer] Other Start: 05-10-2023 Office outpatient vi sit 15 minutes Barbara Ellis [facility] [place] Start: 03-19-2023 End: 03-20-[address] NITISH AGRAWAL Facility:H1 Start: 03-05-2023 Rx Renewal Nitish Agrawal Work Phone: [facility] 250 DO Work Phone: Start: 03-05-2023 End: 03-06-[address] NITISH AGRAWAL Facility:H1 Start: 02-13-2023 End: 02-14-[address] NITISH AGRAWAL Facility:H1 Start: 01-23-2023 Office outpatient vi sit 15 minutes Nitish Agrawal Work Phone: [facility] 250 DO Work Phone: Start: 01-23-[address] Nitish Agrawal Facility: Start: 11-28-2022 End: 11-29-[address] NITISH AGRAWAL Facility:H1 Start: 11-13-2022 End: 11-14-2022 ambulatory NISHA FARRAR Facility:H1 Start: 10-24-2022 End: 10-25-2022 ambulatory NISHA FARRAR Facility:H1 Start: 07-18-2022 End: 07-19-2022 ambulatory NISHA FARRAR Facility:H1 Start: 07-03-2022 End: 07-04-2022 ambulatory NISHA FARRAR Facility:H1 Start: 06-20-2022 End: 06-21-2022 ambulatory NISHA FARRAR Facility:H1 Start: 06-13-2022 Encounter for preprocedural laboratory examination NISHA FARRAR [facility] Start: 06-12-2022 End: 06-12-2022 ambulatory NISHA FARRAR Facility:H1 Start: 06-09-2022 End: 06-10-2022 ambulatory NISHA FARRAR Facility:H1 Start: 06-09-2022 End: 06-10-2022 Encounter for preprocedural laboratory examination NISHA FARRAR Facility:H1 Start: 06-07-2022 End: 06-08-2022 ambulatory NISHA FARRAR Facility:H1 Start: 06-06-2022 End: 06-07-2022 ambulatory NISHA FARRAR Facility:H1 Start: 05-30-2022 End: 05-31-2022 ambulatory NISHA FARRAR Facility:H1 Start: 05-02-2022 End: 05-03-2022 ambulatory NISHA FARRAR Facility:H1 Start: 05-01-2022 Office outpatient vi sit 25 minutes Nitish Agraawl Work Phone: [facility] [address] DO Work Phone: Start: 05-01-[address] Helga Flores Facility:[id number] Start: 04-18-2022 End: 04-19-2022 ambulatory NISHA FARRAR Facility:H1 Start: 04-14-2022 End: 04-15-2022 ambulatory NISHA FARRAR Facility:H1 Start: 03-30-2022 End: 03-31-[address] NITISH AGRAWAL Facility:H1 Start: 03-22-2022 End: 03-24-2022 Evaluation and management of inpatient SHAIKH Magui GOMEZ Facility:H1 Start: 03-22-2022 End: 03-23-[address] NITISH AGRAWAL Facility:H1 Start: 03-14-[address] Nitish Agrawal Facility:[id number] Start: 03-14-2022 Patient encounter procedure Nitish Agrawal Work Phone: [facility] [address] DO Work Phone: Start: 03-14-2022 SURGNON, Provider: Margaux Castillo, Status: Pen, Time: 12:00 PM Nitish Agrawal Work Phone: [facility] 250 DO Work Phone: Start: 03-14-2022 End: 03-15-2022 ambulatory Margaux Castillo Facility:[facility] Start: 03-13-2022 Chart Update Nitish Agrawal Work Phone: [facility] [address] DO Work Phone: Start: 03-10-2022 Chart Update Nitish Agrawal Work Phone: [facility] 600 DO Work Phone: Start: 03-10-2022 End: 03-10-2022 ambulatory Nitish Agrawal Facility:[facility] Start: 12-14-2021 Rx Renewal Nitish Agrawal Work Phone: -[facility] 250 DO Work Phone: Start: 11-22-2021 Office outpatient vi sit 25 minutes Nitish Agrawal Work Phone: [facility] 250 DO Work Phone: Start: 11-09-2021 SURGNON, Provider: Martin Elias, Status: Pen, Time: 1:00 PM Nitish Agrawal Work Phone: -[facility] 250 DO Work Phone: Start: 11-08-2021 Chart Update Nitish Agrawal Work Phone: [facility] 250 DO Work Phone: Start: 10-18-2021 Telephone encounter Nitish luz Work Phone: [facility] 600 DO Work Phone: Start: 10-14-2021 Chart Update Nitish Agrawal Work Phone: [facility] 600 DO Work Phone: Start: 10-12-2021 Patient encounter procedure Nitish Agrawal Work Phone: [facility] 250[address] [place] Work Phone: Start: 10-10-2021 End: 10-10-2021 ambulatory Jaelyn Jonesault Other [facility] [employer] Other Start: 10-10-2021 Office outpatient vi sit 15 minutes Jaelyn Kylie [facility] Start: 09-28-2021 AUDIT Nitish Agrawal Work Phone: [facility] 250[address] [place] Work Phone: Start: 09-27-2021 Office outpatient vi sit 25 minutes Nitish Agrawal Work Phone: [facility] 250 DO Work Phone: Start: 04-11-2017 End: 04-12-2017 Ambulatory [id number] MAILE AGRAWAL Facility:[facility] Procedures Date Procedure Procedure Detail Performing Clinician Start: 01-28-2025 ALL BASIC METABOLIC PANEL Generic External Data Provider Start: 01-28-2025 ALL PRO BNP Generic Ex ternal Data Provider Start: 12-01-2024 Hemoglobin glycosylated a1c Lashaun Bradley DO Work Phone: Start: 12-01-2024 Lipid 1996 panel - S mariley or Plasma Martin Elias DO Work Phone: Start: 12-01-2024 Thyrotropin [Units/v olume] in Serum or Plasma Martin Elias DO Work Phone: Start: 09-01-2024 Hemoglobin glycosylated a1c Lashaun Bradley DO Work Phone: Start: 06-27-2024 CRYOTHERAPY SKIN LESION Bari HARRIS Work Phone: Start: 06-18-2024 Carcinoembryonic ant igen cea Nitish Agrawal DO Work Phone: Start: 08-31-2023 History of coronary artery bypass grafting History of coronary artery bypass graft Martin Elias DO Work Phone: Start: 03-23-2022 Detachment at Right 2nd Toe, Complete, Open Approach NISHA FARRAR Arthroplasty of knee Nitish Agrawal Work Phone: Cardiac catheterization Nitish Agrawal Work Phone: History of coronary artery bypass grafting History of coronary artery bypass graft Nitish Agrawal Work Phone: History of coronary artery bypass grafting History of coronary artery bypass graft Martin Elias DO Work Phone: History of coronary artery bypass grafting History of coronary artery bypass graft Martin Elias DO Work Phone: Operative procedure on foot Nitish Agrawal Work Phone: Comment on above: toe amputation; Surgical procedure Nitish pro Work Phone: Total colonoscopy Nitish luz Work Phone: Plan of Treatment Date Care Activity Detail Author Start: 12-07-2025 End: 12-07-2025 Patient encounter procedure 12/07/2025 10:00 AM EST Office Visit [facility] [address] [place] [phone] Joyce Loyd NP [address] [place] [address] [facility] Start: 12-04-2025 Medicare Annual Wellness (AWV) Medicare Annual Wellness (AWV) [facility] Start: 12-01-2025 Lipid panel Lipid Panel [facility] Start: 12-01-2025 Thyroid stimulating hormone measurement TSH Level [facility] Start: 12-01-2025 Urine screening for protein Diabetes: Urine Protein Screening [facility] Start: 03-27-2025 Screening for malignant neoplasm of colon [facility] Start: 03-27-2025 End: 03-27-2025 Patient encounter procedure 03/27/2025 8:45 AM EDT Office Visit [facility] [address] [place] [phone] Lashaun Bradley DO [address] [place] [address] [facility] 230 Start: 03-12-2025 End: 03-12-2025 Patient encounter procedure 03/12/2025 8:00 AM EDT Office Visit [facility] [address] [place] [phone] Latha Caicedo PA [address] [place] [address] [facility] 230 Start: 03-01-2025 Hemoglobin A1c measurement Diabetes: Hemoglobin A1C [facility] Start: 01-29-2025 End: 01-29-2025 Patient encounter procedure 01/29/2025 8:40 AM EDT Office Visit [facility] [address] [place] [phone] Latha Caicedo PA [address] [place] [address] Arrived [facility] 230 Comment on above: Arrived Start: 01-28-2025 End: 01-28-2026 Basic metabolic 2000 panel - Serum or Plasma Basic Metabolic Panel Lab Routine Arteriosclerotic cardiovascular disease (ASCVD) Expected: 01/28/2025 (Approximate), Expires: 01/28/2026 [facility] Work Phone: Comment on above: Expected: 01/28/2025 (Approximate), Expi res: 01/28/2026 Start: 01-28-2025 End: 01-28-2026 C reactive protein [Mass/volume] in Serum or Plasma by High sensitivity method C-Reactive Protein, High Sensitivity Lab Routine Arteriosclerotic cardiovascular disease (ASCVD) Expected: 01/28/2025 (Approximate), Expires: 01/28/2026 [facility] Work Phone: Comment on above: Expected: 01/28/2025 (Approximate), Expi res: 01/28/2026 Start: 01-28-2025 End: 01-28-2026 Holter monitor study Holter Or Event Band Manager Cardiac Services Routine Angina pectoris Palpitations Tachycardia Expected: 01/28/2025, Expires: 01/28/2026 [facility] Service Area Work Phone: Comment on above: Expected: 01/28/2025, Expires: Start: 01-28-2025 End: 01-28-2026 Natriuretic peptide B [Mass/volume] in Blood B-Type Natriuretic Peptide Lab Routine Arteriosclerotic cardiovascular disease (ASCVD) ACC/AHA stage C congestive heart failure due to ischemic cardiomyopathy Expected: 01/28/2025 (Approximate), Expires: 01/28/2026 [facility] Work Phone: Comment on above: Expected: 01/28/2025 (Approximate), Expi res: 01/28/2026 Start: 01-28-2025 End: 01-28-2027 NM Heart Perfusion W stress and W radionuclide IV Nuclear Stress Test Cardiac Nuclear Medicine Routine 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 Status post angioplasty Angina pectoris Palpitations Tachycardia Expected: 01/28/2025 (Approximate), Expires: 01/28/2027 [facility] Work Phone: Comment on above: Expected: 01/28/2025 (Approximate), Expi res: 01/28/2027 Start: 01-28-2025 End: 01-28-2025 Patient encounter procedure 01/28/2025 9:50 AM EDT Office Visit [facility] [address] [facility] [address] [place] [phone] Martin Elias, DO [address] [place] [address] [facility] Start: 12-04-2024 End: 12-04-2024 Patient encounter procedure 12/04/2024 11:20 AM EST Office Visit [facility] [address] [place] [address] Nitish Agrawal DO [address] [place], [place] [id number] Arrived [facility] 230 Comment on above: Arrived Start: 12-02-2024 Hemoglobin A1c measurement Diabetes: Hemoglobin A1C [facility] Start: 12-01-2024 End: 12-01-2025 Prostate specific Ag [Mass/volume] in Serum or Plasma PSA Lab Routine Screening for prostate cancer Expected: 12/01/2024 (Approximate), Expires: 12/01/2025 [facility] Comment on above: Expected: 12/01/2024 (Approximate), Expi res: 12/01/2025 Start: 12-01-2024 End: 12-01-2024 Patient encounter procedure 12/01/2024 9:15 AM EST Office Visit [facility] [address] [place] [phone] Lashaun Bradley, DO [address] [place] [address] [facility] 230 Start: 09-02-2024 Hemoglobin A1c measurement Diabetes: Hemoglobin A1C [facility] Start: 09-01-2024 End: 09-01-2024 Patient encounter procedure 09/01/2024 9:15 AM EDT Office Visit [facility] [address] [place] [phone] Lashaun Bradley, DO [address] [place] [address] [facility] 230 Start: 08-09-2024 Urine screening for protein Diabetes: Urine Protein Screening [facility] Start: 07-06-2024 Influenza vaccination Influenza Vaccine (#1) [facility] Start: 06-27-2024 Glaucoma screening Diabetes: Retinopathy Screening [facility] Start: 06-27-2024 End: 06-27-2024 Patient encounter procedure 06/27/2024 8:50 AM EDT Office Visit [facility] [address] [place] [phone] Bari Chowdhury PA [address] [place] [phone] Arrived [facility] Comment on above: Arrived Start: 01-29-2024 End: 01-28-2025 Alanine aminotransferase [Enzymatic activity/volume] in Serum or Plasma by With P-5'-P Alanine Aminotransferase Lab Routine 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 Multiple vessel coronary artery disease Hypertension, unspecified type Mixed hyperlipidemia Expected: 01/29/2024 (Approximate), Expires: 01/28/2025 [facility] Work Phone: Comment on above: Expected: 01/29/2024 (Approximate), Expi res: 01/28/2025 Start: 01-29-2024 End: 01-28-2025 Aspartate aminotransferase [Enzymatic activity/volume] in Serum or Plasma by With P-5'-P Aspartate Aminotransferase Lab Routine 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 Multiple vessel coronary artery disease Hypertension, unspecified type Mixed hyperlipidemia Expected: 01/29/2024 (Approximate), Expires: 01/28/2025 [facility] Work Phone: Comment on above: Expected: 01/29/2024 (Approximate), Expi res: 01/28/2025 Start: 01-29-2024 End: 01-28-2025 C reactive protein [Mass/volume] in Serum or Plasma by High sensitivity method C-Reactive Protein, High Sensitivity Lab Routine 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 Multiple vessel coronary artery disease Hypertension, unspecified type Mixed hyperlipidemia Expected: 01/29/2024 (Approximate), Expires: 01/28/2025 [facility] Work Phone: Comment on above: Expected: 01/29/2024 (Approximate), Expi res: 01/28/2025 Start: 01-29-2024 End: 01-28-2025 Lipid 1996 panel - Serum or Plasma Lipid Panel Lab Routine 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 Multiple vessel coronary artery disease Hypertension, unspecified type Mixed hyperlipidemia Expected: 01/29/2024 (Approximate), Expires: 01/28/2025 [facility] Service Area Work Phone: Comment on above: Expected: 01/29/2024 (Approximate), Expi res: 01/28/2025 Start: 01-24-2024 FUV, Provider: Martin Elias, Status: Pen, Time: 9:30 AM FUV, Provider: Martin Elias, Status: Pen, Time: 9:30 AM [facility] 250 DO Work Phone: Start: 01-23-2023 Medicare Annual Wellness (AWV) Medicare Annual Wellness (AWV) [facility] Start: 11-16-2022 FUV, Provider: Martin Elias, Status: Pen, Time: 10:20 AM FUV, Provider: Martin Elias, Status: Pen, Time: 10:20 AM -[facility]-[place] 250 DO Work Phone: Start: 08-25-2022 Pneumococcal Vaccine: 65+ Years (2 - PCV) Pneumococcal Vaccine: 65+ Years (2 - PCV) [facility] Start: 08-25-2022 Pneumococcal Vaccine: 65+ Years (2 of 2 - PCV) Pneumococcal Vaccine: 65+ Years (2 of 2 - PCV) [facility] Start: 05-29-2022 FUV, Provider: Helga Flores, Status: Pen, Time: 10:15 AM FUV, Provider: Helga Flores, Status: Pen, Time: 10:15 AM -[facility] 250 DO Work Phone: Start: 05-01-2022 FUV, Provider: Helga Flores, Status: Pen, Time: 9:30 AM FUV, Provider: Helga Flores, Status: Pen, Time: 9:30 AM -[facility] 600 DO Work Phone: Start: 03-21-2022 FUV, Provider: Helga Flores, Status: Pen, Time: 9:15 AM FUV, Provider: Helga Flores, Status: Pen, Time: 9:15 AM -[facility] 250 DO Work Phone: Start: 03-14-2022 SURGNON, Provider: Margaux Castillo, Status: Pen, Time: 12:00 PM [facility] Provider: Margaux Castillo, Status: Pen, Time: 12:00 PM [facility] 600 DO Work Phone: Start: 11-09-2021 [facility], Provider: Martin Elias, Status: Pen, Time: 1:00 PM [facility], Provider: Martin Elias, Status: Pen, [facility] [facility] Work Phone: Start: 10-12-2021 STRESS NUC, Provider: [place] [facility]VI NUCLEAR 01,[id number], Status: Pen, Time: 7:30 AM STRESS NUC, Provider: [place] [facility] NUCLEAR 01,[id number], Status: Pen, Time: 7:30 AM -[facility] 250 DO Work Phone: Start: 02-07-2006 Zoster Vaccines (1 of 2) Zoster Vaccines (1 of 2) [facility] Start: 02-07-1978 DTaP/Tdap/Td Vaccines (1 - Tdap) DTaP/Tdap/Td Vaccines (1 - Tdap) [facility] Start: 02-07-1975 Urine screening for protein Diabetes: Urine Protein Screening [facility] Start: 02-07-1974 Hepatitis C screening Hepatitis C Screening [facility] Start: 02-07-1966 Diabetic foot examination Diabetes: Foot Exam [facility] Start: 02-07-1966 Glaucoma screening Diabetes: Retinopathy Screening [facility] Start: 1956 Creatinine measurement Creatinine Level [facility] Start: 1956 Echocardiography Echocardiogram [facility] Start: 1956 Hemoglobin A1c measurement Diabetes: Hemoglobin A1C [facility] Start: 1956 Lipid panel Lipid Panel [facility] Start: 1956 Medicare Annual Wellness Visit Medicare Annual Wellness Visit (AWV) [facility] Start: 1956 Potassium measurement Potassium Level [facility] Start: 1956 Screening for malignant neoplasm of colon [facility] Start: 1956 Thyroid stimulating hormone measurement TSH Level [facility] CBC W Auto Different ial panel - Blood CBC and differential Lab Routine Preventative health care Ordered: 12/01/2024 [facility] Comment on above: Ordered: 12/01/2024 Comprehensive metabo lic 2000 panel - Serum or Plasma Comprehensive metabolic panel Lab Routine Preventative health care Ordered: 12/01/2024 [facility] Work Phone: Comment on above: Ordered: 12/01/2024 Lipid 1996 panel - S mariely or Plasma Lipid panel Lab Routine Preventative health care Ordered: 12/01/2024 [facility] Comment on above: Ordered: 12/01/2024 Microalbumin/Creatin ine panel in random Urine Microalbumin / creatinine urine ratio Lab Routine Type 2 diabetes mellitus with other circulatory complications (CMS/HCC) Ordered: 12/01/2024 [facility] Comment on above: Ordered: 12/01/2024 Thyrotropin [Units/volume] in Serum or Plasma TSH Lab Routine Preventative health care Ordered: 12/01/2024 [facility] Comment on above: Ordered: 12/01/2024 Immunizations Immunization Date Immunization Notes Care Provider Ele mcneal 12-04-2024 Pneumococcal Conjuga te PCV 20 Joyce Loyd CYLINDER HONER Work Phone: [facility] 08-04-2024 influenza, high dose seasonal, preservative-free Lashaun Bradley DO Work Phone: [facility] 08-21-2023 Influenza, Seasonal, Quadrivalent, Adjuvanted [facility] PA Work Phone: [facility] 08-21-2023 influenza virus vacc ine, unspecified formulation [facility] STEVEN Work Phone: [facility] 08-09-2023 RSV, recombinant, protein subunit RSVpreF, adjuvant reconstitu, 120mcg/0.5mL, PF (Arexvy) [facility] Work Phone: [facility] 08-02-2022 Fluzone High-Dose Quadrivalent 0.7 ML Intramuscular Suspension Prefilled Syringe Nitish Agrawal Work Phone: [facility] 250 DO Work Phone: 08-02-2022 Pfizer COVID-19 Vac Bivalent 30 MCG/0.3ML Intramuscular Suspension Nitish Agrawal Work Phone: [facility] 09-02-2021 Pfizer-BioNTech COVI D-19 Vacc 30 MCG/0.3ML Intramuscular Suspension Nitish Agrawal Work Phone: [facility] 08-25-2021 Fluad Quadrivalent 0 .5 ML Intramuscular Prefilled Syringe [facility]itish Agrawal [facility] DO Work Phone: 08-25-2021 pneumococcal polysaccharide vaccine, 23 valent Nitish Agrawal Work Phone: [facility] 02-06-2021 Pfizer-BioNTech COVI D-19 Vacc 30 MCG/0.3ML Intramuscular Suspension Nitish Agrawal Work Phone: [facility] 01-16-2021 [facility] COV[facility] D-19 Vacc 30 MCG/0.3ML Intramuscular Suspension Nitish Agrawal Work Phone: [facility] 11-22-2020 zoster vaccine recombinant Nitish Agrawal Work Phone: [facility] 250 DO Work Phone: 11-22-2020 zoster vaccine, unspecified formulation Martin Elias DO Work Phone: [facility] Work Phone: 09-09-2020 influenza, high dose seasonal, preservative-free Nitish Agrawal Work Phone: [facility] 250 DO Work Phone: 09-05-2020 influenza virus vacc ine, unspecified formulation Nitish Agrawal Work Phone: [facility] 250 DO Work Phone: 09-05-2020 influenza, seasonal, injectable Bari Luciana HARRIS Work Phone: [facility] 08-29-2020 influenza, injectabl e, quadrivalent, preservative free Nitish Agrawal Work Phone: [facility] 250 DO Work Phone: 08-29-2020 zoster vaccine recombinant Nitish Agrawal Work Phone: [place] [address] DO Work Phone: 08-29-2020 zoster vaccine, unspecified formulation Martin Elias DO Work Phone: [facility] Work Phone: 09-07-2019 influenza virus vacc ine, unspecified formulation Nitish Agrawal Work Phone: [place] [address] DO Work Phone: 08-26-2019 Influenza, injectabl e, Madin [place] Canine Kidney, preservative free, quadrivalent Nitish Agrawal Work Phone: [place] [address] DO Work Phone: 11-05-2017 pneumococcal polysaccharide vaccine, 23 valent Nitish Agrawal Work Phone: [facility] 09-18-2017 influenza, injectabl e, quadrivalent, preservative free Nitish Agrawal Work Phone: [place] [address] DO Work Phone: 08-06-2017 influenza, high dose seasonal, preservative-free Nitish Agrawal Work Phone: [place] [address] DO Work Phone: 08-05-2016 influenza virus vacc ine, unspecified formulation Nitish Agrawal Work Phone: [facility] 250 DO Work Phone: 07-24-2011 influenza, seasonal, injectable, preservative free Nitish Agrawal Work Phone: [facility] 250 DO Work Phone: 11-05-2010 influenza virus vacc ine, unspecified formulation Nitish Agrawal Work Phone: [place] [id number] DO Work Phone: 08-05-2010 pneumococcal polysaccharide vaccine, 23 valent Nitish Agrawal Work Phone: [place] [address] DO Work Phone: 08-13-2008 influenza, seasonal, injectable, preservative free Nitish Agrawal Work Phone: [place] [address] DO Work Phone: influenza virus vacc ine, unspecified formulation Nitish Agrawal Work Phone: [place] [address] DO Work Phone: Comment on above: Sep 2010 Payers Date Payer Category Payer Self-pay 2021 Medicare [id number] 2021 Private Health Insurance [employer] [id number] 2021 Unknown 2017 Unknown [id number] 1959 Medicare [id number] 1959 Unknown [id number] 2..840.1.880365.19 1956 Unknown [id number] 2..840.1.149494.3.579.2. 356 1956 Unknown [id number] 2..840.1.828928.3.579.2. 356 1956 Unknown [id number] 2..840.1.409053.3.579.2. 356 1956 Unknown [id number] 2.16.840.1.007827.3.579.2. 593 1956 Unknown [id number] 2.16.840.1.521128.3.579.2. 593 1956 Unknown [id number] 2.16.840.1.494131.3.579.2. 593 1956 Unknown [id number] 2.16.840.1.285910.3.579.2. 593 1956 Unknown [id number] 2.16.840.1.678425.3.579.2. 593 1956 Unknown [id number] 2.16.840.1.584024.3.579.2. 593 1956 Unknown [id number] 2.16.840.1.140212.3.579.2. 593 1956 Unknown [id number] 2.16.840.1.045909.3.579.2. 593 1956 Unknown [id number] 2.16.840.1.264350.3.579.2. 593 1956 Unknown [id number] 2.16.840.1.171523.3.579.2. 593 1956 Unknown [id number] 2.16.840.1.338354.3.579.2. 593 1956 Unknown [id number] 2.16.840.1.034510.3.579.2. 593 1956 Unknown [id number] 2.16.840.1.766965.3.579.2. 593 1956 Unknown [id number] 2.16.840.1.791474.3.579.2. 593 1956 Unknown [id number] 2.16.840.1.641532.3.579.2. 593 1956 Unknown [id number] 2.16.840.1.722566.3.579.2. 593 1956 Unknown [id number] 2.16.840.1.871452.3.579.2. 593 1956 Unknown [id number] 2.16.840.1.618377.3.579.2. 593 1956 Unknown [id number] 2.16.840.1.094504.3.579.2. 593 1956 Unknown [id number] 2.16.840.1.658992.3.579.2. 593 1956 Unknown [id number] 2.16.840.1.081058.3.579.2. 1259 1956 Unknown [id number] 2.16.840.1.734486.3.579.2. 125 1956 Unknown [id number] 2.840.1.628273.3.579.2. 125 1956 Unknown [id number] 2.16.840.1.980083.3.579.2. 125 1956 Unknown [id number] 2.16840.1.018092.3.579.2. 1259 1956 Unknown [id number] 2.16840.1.737296.3.579.2. 1259 1956 Unknown [id number] 2.16.840.1.621489.3.579.2. 125 1956 Unknown [id number] 2.16.840.1.102574.3.579.2. 125 1956 Unknown [id number] 2.16.840.1.014553.3.579.2. 125 1956 Unknown [id number] 2.16.840.1.888613.3.579.2. 1259 1956 Unknown [id number] 2.16.840.1.744343.3.579.2. 1244 1956 Unknown [id number] 2.16.840.1.553722.3.579.2. 1244 Unknown [id number] 2.16.840.1.265513.3.579.2. 531 Unknown [id number] 2.16.840.1.532493.3.579.2. 531 Social History Date Type Detail Facility Start: 01-29-2024 End: 12-04-2024 Caffeine use Caffeine use -[facility] DO Work Phone: Comment on above: occassional; Start: 01-29-2024 End: 12-04-2024 Sex Assigned At [facility] [employer] Other Start: 01-29-2024 End: 06-16-2024 Tobacco smoking status NHIS Never smoked tobacco [facility] Start: 01-29-2024 End: 06-16-2024 Tobacco use and exposure Smokeless tobacco non-user [facility] Work Phone: Start: 01-29-2024 End: 12-04-2024 Alcohol intake Lifetime non-drinker (finding) [facility] Work Phone: Start: 1955 Sex Assigned At Not on file [facility] Work Phone: Start: 01-19-2024 End: 01-28-2025 Exposure to SARS-CoV-2 (event) Not sure [facility] How often to you hav e a drink containing alcohol? Never [facility] How many standard drinks containing alcohol do you have on a typical day? Patient does not drink [facility] Start: 1955 Sex assigned at Male U [facility] Start: 09-23-2024 Gender identity Identifies as male gender (finding) [facility] Work Phone: NEGATED: Highlighted rowStart: NINF History of tobacco use Passive smoker [facility] Medical Equipment Procedure Code Equipment Code Equipment Origin al Text Equipment Identifier Dates Fsbs daily [id number] Start: 03-03-2024 [facility] daily [id number] Start: 03-03-2024 Clinical Notes 10-08-2017 to 01-29-2025 Latha Caicedo, PA - 01/29/2025 8:40 AM EDIdalia Elias, DO - 01/28/2025 9:50 AM EDTPatient Shayy Abel Tanja, DO - 12/04/2024 11:20 AM Trini Bradley, DO - 12/01/2024 9:35 AM EST Note Date & Type Note Facility 01-29-2025 History of Presen t illness Narrative Images from the original note were not included. Subjective Patient ID: Janice Ford is a 69 y.o. male who presents for Anxiety (Pt presents to discuss anxiety. Pt notes periods of chest tightness when going to work on things, noticing a difference in personality when around large groups. Pt was told by Insurance Claims Clerk he wants to have a stress test and he started to get all tense about this.). Anxiety Presents for initial visit. Onset was 1 to 6 months ago. The problem has been gradually worsening. Symptoms include chest pain, excessive worry, irritability, nervous/anxious behavior, palpitations, panic and restlessness. Patient reports no depressed mood, insomnia, nausea, shortness of breath or suicidal ideas. Symptoms occur most days. The severity of symptoms is interfering with daily activities. The symptoms are aggravated by social activities and specific phobias. The quality of sleep is fair. Nighttime awakenings: one to two. Past treatments include nothing. Review of Systems Constitutional: Positive for irritability. Negative for chills and fever. Respiratory: Negative for shortness of breath. Cardiovascular: Positive for chest pain and palpitations. Gastrointestinal: Negative for diarrhea, nausea and vomiting. Musculoskeletal: Negative for myalgias. Skin: Negative for rash. Psychiatric/Behavioral: Negative for suicidal ideas. The patient is nervous/anxious. The patient does not have insomnia. All other systems reviewed and are negative. Objective Visit Vitals BP 130/72 Pulse 76 Temp 97.3 F Ht 6' 1 Wt 213 lb SpO2 96% BMI 28.10 kg/m Smoking Status Never BSA 2.23 m Physical Exam Constitutional: General: He is not in acute distress. Appearance: Normal appearance. HENT: Head: Normocephalic and atraumatic. Mouth/Throat: Mouth: Mucous membranes are moist. Cardiovascular: Rate and Rhythm: Normal rate and regular rhythm. Pulses: Normal pulses. Heart sounds: No murmur heard. No friction rub. No gallop. Pulmonary: Effort: No respiratory distress. Breath sounds: Normal breath sounds. No wheezing, rhonchi or rales. Skin: General: Skin is warm and dry. Findings: No rash. Neurological: General: No focal deficit present. Mental Status: He is alert and oriented to person, place, and time. Psychiatric: Mood and Affect: Mood is anxious. Behavior: Behavior normal. Thought Content: Thought content does not include homicidal or suicidal ideation. Judgment: Judgment normal. Assessment/Plan Diagnoses and all orders for this visit: Anxiety - sertraline (Zoloft) 50 MG tablet; Take 1 tablet (50 mg) by mouth Daily - hydrOXYzine HCl (Atarax) 25 MG tablet; Take 2 tablets (50 mg) by mouth 2 (two) times a day as needed for anxiety Medication as directed. Counseling recommended. Verbalizes understanding of the need to be seen in the ER for suicidal/homicidal ideation, excessive stress, elevated blood pressure or palpitations. Pt offers understanding of treatment plan. I discussed the side effects of the medications prescribed and to seek medical care if they arise. Discussed stress management strategies, social support and importance of healthy diet, exercise and regular sleep habits. Advised on relaxation methods to decrease anxiety and depression. All questions answered. Call the office with any other questions or concerns. documented in this encounter [facility] 01-28-2025 History of Presen t illness Narrative Chief Complaint Patient presents with Annual Exam 1 year, arteriosclerotic cardiovascular disease Subjective Janice Ford is a 69 y.o. male 69-year-old gentleman returns for annual follow-up for continued cardiovascular evaluation and surveillance. He is doing reasonably well although he has had episodes of class III angina while cleaning up his yard most recently. This was resolved simply by stopping his activity and going inside, anginal resolved by 5 minutes. He has had a couple other episodes with less intense activity; he has not taken any nitrates. He denies any hospitalizations, nitrate usage admits to the above episodes of angina which are relatively new in onset as well as admits to palpitations and tachyarrhythmias that have occurred over the past 1 year. He has a history of known ASHD, last years catheterization from March [address] Castillo is reviewed; revealing: Occluded LAD, patent WALL [...] fraction 45% the above-mentioned CABG and stenting. He remains on appropriate secondary preventive therapies, we do not have any recent lipid panel. Recommendations: Proceed with Lexiscan stress imaging, 7-day event monitor, lipid panel, BNP, high-sensitivity CRP and chemistry panel, otherwise instructions in regards to nitrate usage and follow-up again in 6 months; for any unstable symptomatology to initiate nitro under the tongue and go to the emergency room Review of Systems Cardiovascular: Positive for chest pain and dyspnea on exertion. All other systems reviewed and are negative. Vitals: 01/28/25 1005 BP: 116/66 BP Location: Left arm Patient Position: Sitting Pulse: 82 Weight: 98.6 kg (217 lb 6.4 oz) Height: 1.854 m (6' 1 ) Objective [...] TABLET BY MOUTH TWICE A DAY WITH FOOD, Disp: 180 tablet, Rfl: 3 dapagliflozin propanediol (Farxiga) 5 mg, Take 1 tablet (5 mg) by mouth once daily., Disp: , Rfl: fenofibrate (Tricor) 145 mg tablet, TAKE 1 TABLET BY MOUTH EVERY DAY, Disp: 90 tablet, Rfl: 3 isosorbide mononitrate ER (Imdur) 60 mg 24 hr tablet, Take 1 tablet (60 mg) by mouth once daily., Disp: 90 tablet, Rfl: 3 levothyroxine (Synthroid) 200 mcg tablet, Take 1 tablet (200 mcg) by mouth once daily., Disp: , Rfl: metFORMIN XR 500 mg 24 hr tablet, 1 tablet (500 mg) 2 times daily (morning and late afternoon)., Disp: , Rfl: metFORMIN, OSM, (Fortamet) 500 mg 24 hr tablet, Take 1 tablet (500 mg) by mouth every 12 hours. Do not crush, chew, or split., Disp: , Rfl: nitroglycerin (Nitrostat) 0.4 mg SL tablet, Place 1 tablet (0.4 mg) under the tongue every 5 minutes if needed for chest pain., Disp: 100 tablet, Rfl: 1 Ozempic 2 mg/dose (8 mg/3 mL) pen injector, Inject 2 mg under the skin every 7 days., Disp: , Rfl: Assessment/Plan 1. Arteriosclerotic cardiovascular disease (ASCVD) Follow Up In Cardiology 2. History of coronary artery bypass graft 3. Status post angioplasty 4. Ischemic cardiomyopathy 5. Angina pectoris 6. Palpitations 7. Tachycardia 8. Mixed hyperlipidemia 9. Other specified diabetes mellitus with other specified complication, with long-term current use of insulin 10. Body mass index (BMI) of 28.0 to 28.9 in adult 11. Never smoked tobacco Scribe Attestation By signing my name below, Mandi Recio LPN, Scribe attest that this documentation has been prepared under the direction and in the presence of Martin Elias DO. Provider Attestation - Scribe documentation All medical record entries made by the Scribe were at my direction and personally dictated by me. I have reviewed the chart and agree that the record accurately reflects my personal performance of the history, physical exam, discussion and plan. documented in this encounter [facility] Work Phone: 01-28-2025 Instructions Mandi Oakley LPN - 01/28/2025 9:50 AM EDT Please bring all medicines, vitamins, and herbal supplements with you when you come to the office. Prescriptions will not be filled unless you are compliant with your follow up appointments or have a follow up appointment scheduled as per instruction of your physician. Refills should be requested at the time of your visit. BMI was above normal measurement. Current weight: 98.6 kg (217 lb 6.4 oz) Weight change since last visit (-) denotes wt loss -7.6 lbs Weight loss needed to achieve BMI 25: 28.3 Lbs Weight loss needed to achieve BMI 30: -9.5 Lbs Provided instructions on dietary changes Provided instructions on exercise. documented in this encounter [facility] Work Phone: 12-04-2024 History of Presen t illness Narrative Images from the original note were not included. Janice Ford is a 69 y.o. male presents with chief complaint of No chief complaint on file. HPI: HPI Here for 6 month check - discuss lab History of Present Illness The patient is a 69-year-old male who presents for evaluation of thyroid management, cholesterol management, and blood glucose management. He reports experiencing heat intolerance, often feeling the need to discard his blanket or dress more lightly than others. He has been prescribed Ozempic, which he notes has significantly suppressed his appetite. He has an upcoming appointment with Dr. Elias scheduled for 01/28/2025. He does not experience any chest pain or irregular heartbeats. However, he occasionally experiences shortness of breath when exerting himself physically, necessitating rest. FAMILY HISTORY His younger brother has thyroid cancer. His aunt of thyroid cancer about 5 years ago. MEDICATIONS Current: Metformin, atorvastatin, Ozempic, Synthroid SUBJECTIVE: MEDICATIONS: ALLERGIES Current Outpatient Medications Medication Instructions ammonium lactate (Lac-Hydrin) 12 % lotion APPLY DAILY TO DRY AREAS ON FEET aspirin 81 mg, Daily atorvastatin (Lipitor) 20 MG tablet TAKE 1 TABLET BY MOUTH EVERY DAY IN THE EVENING FOR 90 DAYS Blood Glucose Monitoring Suppl ([employer] Verio Flex System) w/Device kit No dose, [...] fenofibrate (TRICOR) 145 mg, Daily glucose blood ([employer] Verio) test strip Fsbs daily hydrOXYzine HCl (ATARAX) 50 mg, Oral, 2 times daily PRN isosorbide mononitrate ER (IMDUR) 60 mg, Daily levothyroxine (SYNTHROID, LEVOXYL) 200 mcg, Oral, Daily metFORMIN XR (GLUCOPHAGE-XR) 500 mg, Oral, 2 times daily nitroglycerin (NITROSTAT) 0.4 mg, Every 5 min PRN OneTouch Delica Lancets 33G [facility] Fsbs daily Ozempic (2 MG/DOSE) 2 mg, Subcutaneous, Weekly sertraline (ZOLOFT) 50 mg, Oral, Daily No Known Allergies Depression: Not at risk (12/04/2024) PHQ-2 PHQ-2 Score: 0 REVIEW OF SYMPTOMS: Review of Systems OBJECTIVE: BP 120/78 Pulse 62 Temp 98 F Ht 6' 1 Wt 214 lb SpO2 99% BMI 28.23 kg/m Recent Results (from the past 6 weeks) ALL BASIC METABOLIC PANEL Collection Time: 01/28/25 1:24 PM Result Value Ref Range SODIUM 139 136 - 145 mmol/L POTASSIUM 4.4 3.5 - 5.1 mmol/L CHLORIDE 104 98 - 107 mmol/L CARBON DIOXIDE 25.7 21.0 - 32.0 mmol/L ANION GAP 13.7 GLUCOSE 150 (H) 74 - 106 mg/dL BLOOD UREA NITROGEN 25.0 (H) 7.0 - 18.0 mg/dL CREATININE 1.39 (H) 0.70 - 1.30 mg/dL TBH EGFR-AF [place] >60 >=60 mL/min/1.73m 2 TBH EGFR-NON AF [place] 51 (L) >=60 mL/min/1.73m 2 BUN CREATININE RATIO 18.0 CALCIUM 8.8 8.5 - 10.1 mg/dL ALL PRO BNP Collection Time: 01/28/25 1:24 PM Result Value Ref Range NT PRO B TYPE NATRIURETIC PEPT 1,185.0 (H) <=900.0 pg/mL C-REACTIVE PROTEIN, CARDIAC Collection Time: 01/28/25 1:24 PM Result Value Ref Range C-REACTIVE PROTEIN, CARDIAC 1.17 0.00 - 3.00 mg/L Results Laboratory Studies Thyroid test shows TSH is 0.032. PSA is normal at 0.9. CBC is essentially normal. Microalbumin in urine test is normal. Cholesterol panel shows HDL is 22. Blood sugar is 111. Kidney function is normal with a filtration rate of 75. Salts in the blood stream are normal. Protein is normal. Liver functions are normal. GENERAL EXAM: Physical Exam Physical Exam Lungs are clear. Heart has a regular rate and rhythm. Vital Signs The patient's body mass index (BMI) is 28.2. ASSESSMENT AND PLAN: Assessment/Plan Assessment & Plan 1. Thyroid management. His thyroid levels are slightly elevated, with a TSH of 0.032. He reports feeling hot when others are comfortable, which is consistent with hyperthyroidism. He has lost 11 pounds since February 2024, which is not rapid but still notable. The dosage of Synthroid will be reduced from 200 mcg to 150 mcg. He should continue taking the remaining 200 mcg tablets until they are finished. TSH levels will be rechecked in one year. 2. Cholesterol management. His cholesterol levels are suboptimal, with an HDL of 18. He is currently on atorvastatin 20 mg. He is advised to discuss potential dosage adjustments with Dr. Elias during his upcoming appointment on January 28, 2025. 3. Blood glucose management. His blood glucose level is well-controlled at 111. He is currently on metformin and Ozempic, which has effectively curbed his appetite. He should continue his current medication regimen. 4. Prostate cancer screening. His PSA level is within the normal range at 0.9, with a slight age-related increase over the past seven years. Annual PSA screenings will continue until he reaches the age of 76. No follow-ups on file. I have reviewed and reconciled the history and medication list with the patient today. documented in this encounter [facility] 12-01-2024 History of Presen t illness Narrative Associated Problem(s): Type 2 diabetes mellitus with other circulatory complications ([facility]) During the appointment today all [...] they have any problems or questions. Janice Ford is making improvements and encouraged on this. , Will stay on current medications. , Instructions given today include: Dietary education Images from the original note were not included. Janice Ford is a 69 y.o. male presents with chief complaint of Diabetes HPI: Diabetes Mellitus Follow-up: Janice Ford is here for follow-up evaluation of diabetes [...] you want to order these or Dr Agrawal SUBJECTIVE: PROBLEM LIST SOCIAL ALLERGIES: Patient Active Problem List Diagnosis Type 2 diabetes mellitus with other circulatory complications ([facility]/HCC) Anemia, unspecified Atherosclerotic heart disease of [place] coronary artery without angina pectoris ([facility]/HCC) Gastro-esophageal reflux disease without esophagitis Osteoarthritis of knee, unspecified Stage 3a chronic kidney disease (CKD) ([facility]) Hypertension ([facility]) Hyperlipidemia ([facility]) History of coronary artery bypass graft Type 2 diabetes mellitus with stage 3a chronic kidney disease, without long-term current use of insulin ([facility]) ([facility]) Social History Tobacco Use Smoking [...] 2 diabetes mellitus with other circulatory complications ([facility]) - Primary During the appointment today all [...] they have any problems or questions. Janice Ford is making improvements and encouraged on this. , Will stay on current medications. , Instructions given today include: Dietary education Relevant Orders POCT glycosylated hemoglobin (Hb A1C) docked device (Completed) Microalbumin / creatinine urine ratio Type 2 diabetes mellitus with stage 3a chronic kidney disease, without long-term current use of insulin (HCC) ([facility]) Other Visit Diagnoses Preventative health care Relevant [...] FOR 90 DAYS BLOOD GLUCOSE MONITORING SUPPL ([employer] VERIO FLEX SYSTEM) W/DEVICE KIT CARVEDILOL (COREG) [...] by mouth in the morning. GLUCOSE BLOOD (ONETOUCH VERIO) TEST STRIP Fsbs daily ISOSORBIDE MONONITRATE [...] for chest pain. ONETOUCH DELICA LANCETS 33G MISC Fsbs daily SEMAGLUTIDE, 2 MG/DOSE, (OZEMPIC, 2 MG/DOSE,) 8 MG/3ML SOLUTION PEN-INJECTOR Inject 2 mg under the skin 1 (one) time per week Modified Medications No medications on file Discontinued Medications No medications on file I have reviewed and reconciled the history and medication list with the patient today. documented in this encounter [facility] 09-01-2024 History of Presen t illness Narrative Associated Problem(s): Type 2 diabetes mellitus with other circulatory complications ([facility]) During the appointment today all [...] they have any problems or questions. Janice Ford blood sugars are worsening. , Discussed dietary changes at length. Encouraged to limit simple carbs and focus more on healthy protein/fat with all meals and snacks. They should also avoid any sugary drinks. , Instructions given today include: Dietary education. Will increase ozempic. He is going to also work on improving his diet. Images from the original note were not included. Janice Ford is a 69 y.o. male presents with chief complaint of Diabetes HPI: Diabetes Mellitus Follow-up: Janice Ford is here for follow-up evaluation of diabetes [...] (CMS/HCC) Anemia, unspecified Atherosclerotic heart disease of [place] coronary artery without angina pectoris (CMS/HCC) Gastro-esophageal reflux disease without esophagitis Osteoarthritis of knee, unspecified Stage 3a chronic kidney disease (CKD) (CMS/HCC) Hypertension (CMS/HCC) Hyperlipidemia (CMS/HCC) History of coronary artery bypass graft Type 2 diabetes mellitus with stage 3a chronic kidney disease, without long-term current use of insulin (HCC) ([facility]) Social History Tobacco Use Smoking [...] they have any problems or questions. Janice Ford blood sugars are worsening. , Discussed dietary [...] FOR 90 DAYS BLOOD GLUCOSE MONITORING SUPPL ([employer] VERIO FLEX SYSTEM) W/DEVICE KIT CARVEDILOL (COREG) [...] by mouth in the morning. GLUCOSE BLOOD (TLBX.meUCH VERIO) TEST STRIP Fsbs daily ISOSORBIDE MONONITRATE [...] (five) minutes if needed for chest pain. TLBX.meUCH DELICA LANCETS 33G [facility] Fsbs daily Modified Medications No medications on file Discontinued Medications SEMAGLUTIDE (OZEMPIC, 1 MG/DOSE,) 4 MG/3ML SOLUTION PEN-INJECTOR Inject 1 mg under the skin 1 (one) time per week I have reviewed and reconciled the history and medication list with the patient today. documented in this encounter [facility] 08-29-2024 Telephone encounter Note LVM appointment reminder [facility] 08-29-2024 Miscellaneous Notes LVM appointment reminder documented in this encounter [facility] 06-27-2024 History of Presen t illness Narrative [...] (2) Chest - Medial (Center), Left Axilla [place] and brown stuck on verrucous scaly papule [...] limited to risks of scarring, darker or account officer pigmentary changes, recurrence, incomplete removal and infection. [...] Visit: 1 year documented in this encounter [facility] 06-16-2024 History of Presen t illness Narrative Images from the original note were not included. Janice Ford is a 69 y.o. male presents with [...] FOR 90 DAYS Blood Glucose Monitoring Suppl ([employer] Verio Flex System) w/Device kit No dose, [...] fenofibrate (TRICOR) 145 mg, Daily glucose blood ([employer] Verio) test strip Fsbs daily isosorbide mononitrate ER (IMDUR) 60 mg, Daily levothyroxine (SYNTHROID, LEVOXYL) 200 mcg, Oral, Daily metFORMIN XR (GLUCOPHAGE-XR) 500 mg, Oral, 2 times daily nitroglycerin (NITROSTAT) 0.4 mg, Every 5 min PRN OneTouch Delica Lancets 33G misc Fsbs daily Ozempic [...] (CMS/HCC) Type 2 diabetes mellitus with hyperglycemia ([facility]/HCC) Acquired absence of other right toe(s) ([facility]) Assessment & Plan 1. Family hx Papillary thyroid cancer. Noted some weight loss. Calcitonin and Carcinoma Embryonic Antigen (CEA) tests have been ordered. An ultrasound has been scheduled. No follow-ups on file. documented in this encounter [facility] 01-29-2024 History of Presen t illness Narrative Subjective Janice Ford is a 68 y.o. male Chief Complaint Annual Exam 68-year-old gentleman returns for annual follow-up he is doing well he denies any cardiovascular events, symptoms, nitrate usage or hospitalizations. He has a history of known ASHD, last years catheterization from March [address] Castillo is reviewed; revealing: Occluded LAD, patent WALL [...] complication, with long-term current use of insulin ([facility]) 8. BMI 29.0-29.9,adult 9. Never smoked tobacco Scribe Attestation By signing my name below, I, Echo Otero LPN attest that this documentation has been prepared under the direction and in the presence of Martin Elias DO. Provider Attestation - Scribe documentation All medical record entries made by the Scribe were at my direction and personally dictated by me. I have reviewed the chart and agree that the record accurately reflects my personal performance of the history, physical exam, discussion and plan. documented in this encounter [facility] Work Phone: 01-29-2024 Instructions Sheri Newman [...] instructions on exercise. documented in this encounter [facility] Work Phone: 05-10-2023 Evaluation note Encounter [...] the ER for worsening symptoms or concerns. [employer] Other 01-24-2023 NotePROCEDURE: XR FOOT RT MIN [...] acute bone abnormality. Electronically authenticated by: HUSAM GAMEZ Date: 2022-11-28 15:28[facility]08-08-2022 NotePROCEDURE: XR FOOT RT MIN 3 VIEWS [...] authenticated by: ROSA MARIA MATOS Date: 2022-06-12 21:05[facility]08-02-2022 NotePROCEDURE: XR FOOT RT MIN 3 VIEWS [...] the fourth toe. Electronically authenticated by: HUSAM GAMEZ Date: 2022-06-06 19:33[facility]05-19-2022 NotePROCEDURE: XR FOOT RT MIN 3 VIEWS [...] Multifocal degenerative changes. Electronically authenticated by: HUSAM GAMEZ Date: 2022-03-23 11:10[id number] Evaluation note* Encounter Date Diagnosis Assessment Notes Treatment Notes Treatment Clinical Notes Oct, Sore throat (ICD-10 - J02.9) symptoms appear viral in nature. Reassurance given. . Saltwater gargles may help with pain and disrupts bacteria and viral infections. Continue tylenol/ibu for general discomfort. Encourage fluids. Symptoms should improve within the next 4-7 days. [facility] Other 12-04-2017 History general Narrative - Reported* Type Description Date Medical History Diabetes mellitus Medical History Hyperlipidemia Medical History Hypothyroidism Surgical History CABG 1992 Surgical History cardiac stent 2002 Surgical History right knee arthroplasty 10/08/20 Surgical History left knee arthroplasty 03/2016 Surgical History Foot Surgery Hospitalization History see above surgical histo ry [facility] Other Evaluation note* Diagnosis Arteriosclerotic cardiovascular disease [...] Never smoked tobacco documented in this encounter [facility] Work Phone: Evaluation note* Diagnosis Type [...] mellitus with hyperosmolarity without coma, unspecified whether correction insulin use (CMS/HCC) Type 2 diabetes mellitus with stage 3a chronic kidney disease, without long-term current use of insulin (HCC) (CMS/HCC) Type 2 diabetes mellitus with other circulatory complications (CMS/HCC) Type 2 diabetes mellitus with other circulatory complications (CMS/HCC) documented in this encounter [facility] HealthcareEvaluation note* Diagnosis Type 2 diabetes mellitus with other circulatory complications (CMS/HCC)- Primary Screening for prostate cancer Special screening for malignant neoplasm of prostate Type 2 diabetes mellitus with stage 3a chronic kidney disease, without long-term current use of insulin (HCC) (CMS/HCC)- Primary Type 2 diabetes mellitus with other circulatory complications (CMS/HCC) Type 2 diabetes mellitus with hyperosmolarity without coma, unspecified whether terminal operator insulin use (CMS/HCC) Type 2 diabetes mellitus [...] circulatory complications (CMS/HCC) documented in this encounter [facility] HealthcareEvaluation note* Diagnosis Other seborrheic dermatitis- Primary Acrochordon Unspecified hypertrophic and atrophic condition of skin Other specified erythematous conditions Inflamed seborrheic keratosis documented in this encounter [facility] HealthcareEvaluation note* Diagnosis Type 2 diabetes mellitus with other circulatory complications (CMS/HCC)- Primary Screening for prostate cancer Special screening for malignant neoplasm of prostate Type 2 diabetes mellitus with stage 3a chronic kidney disease, without long-term current use of insulin (HCC) (CMS/HCC)- Primary Type 2 diabetes mellitus with other circulatory complications (CMS/HCC) Type 2 diabetes mellitus with hyperosmolarity without coma, unspecified whether terminal operator insulin use (CMS/HCC) Type 2 diabetes mellitus [...] neoplasm of prostate documented in this encounter [facility] HealthcareEvaluation note* Diagnosis Type 2 diabetes mellitus with other circulatory complications (CMS/HCC)- Primary Screening for prostate cancer Special screening for malignant neoplasm of prostate Type 2 diabetes mellitus with stage 3a chronic kidney disease, without long-term current use of insulin (HCC) (CMS/HCC)- Primary Type 2 diabetes mellitus with other circulatory complications (CMS/HCC) Type 2 diabetes mellitus with hyperosmolarity without coma, unspecified whether correction insulin use (CMS/HCC) Type 2 diabetes mellitus [...] hyperlipidemia type (CMS/HCC) documented in this encounter [facility] HealthcareEvaluation note* Diagnosis Arteriosclerotic cardiovascular disease (ASCVD) Unspecified cardiovascular disease History of coronary artery bypass graft Postsurgical aortocoronary bypass status Status post angioplasty Postsurgical percutaneous transluminal coronary angioplasty status Ischemic cardiomyopathy Other specified forms of chronic ischemic heart disease Angina pectoris Other and unspecified angina pectoris Palpitations Tachycardia Unspecified tachycardia Mixed hyperlipidemia Other specified diabetes mellitus with other specified complication, with long- term current use of insulin Body mass index (BMI) of 28.0 to 28.9 in adult Never smoked tobacco ACC/AHA stage C congestive heart failure due to ischemic cardiomyopathy documented in this encounter [facility] Work Phone: Evaluation note* Diagnosis Type [...] mellitus with hyperosmolarity without coma, unspecified whether correction insulin use (CMS/HCC) Type 2 diabetes mellitus [...] without long-term current use of insulin (HCC) ([facility]) Preventative health care Routine general medical examination at a health care facility Screening for prostate cancer Special screening for malignant neoplasm of prostate Anxiety- Primary Anxiety state, unspecified documented in [facility] encounter [facility]* Diagnosis Type 2 diabetes mellitus with other circulatory complications- Primary Screening for prostate cancer Special screening for malignant neoplasm of prostate Type 2 diabetes mellitus with stage 3a chronic kidney disease, without long-term current use of insulin (HCC) ([facility])- Primary Type 2 diabetes mellitus with other circulatory complications Type 2 diabetes mellitus with hyperosmolarity without coma, unspecified whether correction insulin use (CMS/[facility]) Type 2 diabetes mellitus with stage 3a chronic kidney disease, without long-term current use of insulin (HCC) ([facility]) 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 Ford is a 66-year-old male who is seen back today for follow-up on his history of coronary disease. He had bypass surgery that was done remotely back in 1992 at [facility] in [place]. He had a WALL graft to the [...] completed. No change made to medications today. [facility] DO Work Phone: History of Present illness Narrative* Mr. Ford is a 66-year-old male who is seen back today for follow-up on his history of coronary disease. He had remote bypass surgery that was done back in 1992 at [facility].He had a WALL graft to the LAD [...] This will be arranged for him through [facility]. He is to return in 6 months for follow-up. [facility] Work Phone: History of Present illness Narrative* Mr. Ford is a 67-year-old male who is seen back today for follow-up on his history of coronary disease. He had remote bypass surgery that was done back in 1992 at [facility]. 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 This was redilated and stented. He had a recent episode at cardiac rehab in [place] and because of this was seen in [...] He is to return in 6 months. -[facility] [address] DO Work Phone: History of Present illness Narrative* Joyce Loyd NP - 12/04/2024 1:00 PM EST Images from the original note were not included. Subjective : Chief Complaint: Janice Ford is an 69 y.o. male here for [...] 90 tablet 3 Blood Glucose Monitoring Suppl ([place] Verio Flex System) w/Device kit carvedilol (Coreg) [...] by mouth in the morning. glucose blood ([employer] Verio) test strip Fsbs daily 100 strip [...] current healthcare providers: Patient Care Team: Nitish Agrawal DO as PCP - General (Family Medicine) Lashaun Bradley, DO as PCP - ACO Reach Elliot Elias MD as Referring Physician (Cardiology) Nisha Farrar MD as Referring Physician (Podiatry) Medicare Annual [...] Do you have a medical power of traffic law attorney?: Yes Who is your medical power of traffic law attorney?: alexis Liliana Objective : BP 120/78 [...] Completed Advance Care Planning Has CARINA and KAREEN Janice was seen today for medicare annual wellness visit subsequent. Diagnoses and all orders for this visit: Routine general medical examination at health care facility (Primary) Encounter for vaccination - Pneumococcal conjugate vaccine 20-valent IM Hypertension, unspecified type ([facility]/HCC) Stage 3a chronic kidney disease (CKD) ([facility]) Type 2 diabetes mellitus with stage 3a chronic kidney disease, without long-term current use of insulin (HCC) ([facility]) Hyperlipidemia, unspecified hyperlipidemia type ([facility]) Patient here for annual Medicare [...] vaccine 20-valent IM Electronically signed by Joyce Loyd NP on December 04, 2024 documented [facility] Healthcare[facility] for referral (narrative)* Consultation (Routine) - Authorized Specialty Diagnoses / Procedures Referred By Conttrino t Referred To Contact Cardiology Diagnoses Arteriosclerotic cardiovascular disease (ASCVD) Procedures Follow Up In Cardiology Martin Elias, [address] [facility] [place] [address] Martin Elias DO [address] [facility] [address], [address] [address] Referral ID Status Reason Start Date Expiration Date V isits Requested Visits Authorized [id number] Authorized 01/29/2024 01/28/2025 1 1 [facility] Work Phone: Summary Purpose Family History Unknown Family Member Name Dates Details No [...] Advanced Directives Records Found Chief Complaint JANICE FORD is being seen for an annual follow-up of.cath results.CATH RESULTS.* JANICE FORD is being seen for a 6 month follow-up of. * 67-year-old gentleman returns for follow-up, former patient of Dr. Flores now seeing me for the first time. 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 Last heart catheterization from March [address] Castillo is reviewed; revealing: Occluded LAD, patent WALL [...] section and content) DATE CREATED AUTHOR 05/01/2018 [facility] DATE CREATED AUTHOR AUTHOR'S ORGANIZ ATION 01/25/2022 [facility] dical Specialist DATE CREATED AUTHOR AUTHOR'S ORGANIZ ATION 03/03/2022 [facility] DATE CREATED AUTHOR AUTHOR'S ORGANIZ ATION 12/09/2022 [facility] DATE CREATED AUTHOR AUTHOR'S ORGANIZ ATION 01/24/2023 [employer] DATE CREATED AUTHOR AUTHOR'S ORGANIZ ATION 02/20/2023 [facility] DATE CREATED AUTHOR AUTHOR'S ORGANIZ ATION 03/21/2023 [facility] DATE CREATED AUTHOR AUTHOR'S ORGANIZ ATION 01/30/2025 [facility] dical Specialists EPIC DATE CREATED AUTHOR AUTHOR'S ORGANIZ ATION 01/31/2025 [facility] REASON FOR VISIT (unrecogniz ed section and content) Reason Comments Annual Exam Reason Comments Diabetes Reason Comments Rash Suspicious Skin Lesion Reason Comments Medicare Annual Wellness Visit Subsequen t Reason Comments Annual Exam 1 year, arterioscler otic cardiovascular disease Specialty Diagnoses / Procedures Referred By Conttrino t Referred To Contact Cardiology Diagnoses Arteriosclerotic cardiovascular disease (ASCVD) Procedures Follow Up In Cardiology Martin Elias, DO [address] [facility], [address] [place] [address] Phone: tel: fax: Martin Elias, DO [address] [place] [address] Phone: tel: fax: Referral ID Status Reason Start Date Expiration Date V isits Requested Visits Authorized [id number] Authorized 01/29/2024 01/28/2025 1 1 Reason Comments Anxiety Pt presents to discu anxiety. Pt notes periods of chest tightness when going to work on things, noticing a difference in personality when around large groups. Pt was told by Insurance Claims Clerk he wants to have a stress test and he started to get all tense about this. Care Teams (unrecognized sec tion and content) Finance Manager Relationship Specialty Start Date End Date Nitish Agrawal, [address] [place] [address] PCP - General 09/18/19 Finance Manager Relationship Specialty Start Date End Date Lashaun Bradley DO [address] [place] [address] PCP - ACO Reach 03/29/23 Nitish Agrawal DO [address] [place] [address] PCP - General Family Medicine 03/13/23 Finance Manager Relationship Specialty Start Date End Date Lashanu Bradley DO [address] [place] [address] PCP - ACO Reach 03/29/23 Nitish Agrawal DO [address] [place] [address] PCP - General Family Medicine 03/13/23 Finance Manager Relationship Specialty Start Date End Date Lashaun Bradley Judie, DO [address] [place] [address] PCP - ACO Reach 03/29/23 Nitish Agrawal, DO [address] [place] [address] PCP - General Family Medicine 03/13/23 Finance Manager Relationship Specialty Start Date End Date Lashaun Bradley, DO [address] [place] [address] PCP - ACO Reach 03/29/23 Nitish Agrawal, DO [address] [place] [address] PCP - General Family Medicine 03/13/23 Finance Manager Relationship Specialty Start Date End Date Lashaun Bradley, DO [address] [place] [address] PCP - ACO Reach 03/29/23 Nitish Agrawal, DO [address] [place] [address] PCP - General Family Medicine 03/13/23 Finance Manager Relationship Specialty Start Date End Date Lashaun Bradley, DO [address] [place] [address] PCP - ACO Reach 03/29/23 Nitish Agrawal, DO [address] [place] [address] PCP - General Family Medicine 03/13/23 Finance Manager Relationship Specialty Start Date End Date Lashaun Bradley, DO [address] [place] [address] PCP - ACO Reach 03/29/23 Nitish Agrawal, DO [address] [place] [address] PCP - General Family Medicine 03/13/23 Elliot Elias MD [address] [facility] [address] [place] [address] Referring Physician Cardiology 12/04/24 Nisha Farrar MD [address] [place] [address] [place] [address] Referring Physician Podiatry 12/04/24 Finance Manager Relationship Specialty Start Date End Date Lashaun Bradley DO [address] [place] [address] PCP - ACO Reach 03/29/23 Nitish Agrawal, [address] [place] [address] PCP - General Family Medicine 03/13/23 Finance Manager Relationship Specialty Start Date End Date Nitish Agrawal, [address] [id number] PCP - General 09/18/19 Finance Manager Relationship Specialty Start Date End Date Lashaun Bradley DO [address] [place] [address] PCP - ACO Reach 03/29/23 Nitish Agrawal DO [address] [place] [address] PCP - General Family Medicine 03/13/23 Elliot Elias MD [address] [facility] [address], [address] [place] [address] Referring Physician Cardiology 12/04/24 Nisha Farrar MD [address] [place] [address] Referring Physician Podiatry 12/04/24 Finance Manager Relationship Specialty Start Date End Date Lashaun Bradley DO [address] [place] [address] PCP - ACO Reach 03/29/23 Nitish Agrawal DO [address] [place] [address] PCP - General Family Medicine 03/13/23 Elliot Elias MD [address] [facility] [address], [address] [place] [address] Referring Physician Cardiology 12/04/24 Nisha Farrar MD [address] [place] [address] Referring Physician Podiatry 12/04/24 Finance Manager Relationship Specialty Start Date End Date Lashaun Bradley DO [address] [place] [address] PCP - ACO Reach 03/29/23 Nitish Agrawal, DO [address] [place] [address] PCP - General Family Medicine 03/13/23 Elliot Elias MD [address] [facility] [address], [address] [place] [address] Referring Physician Cardiology 12/04/24 Nisha Farrar MD [address] [place] [address] [place] [address] Referring Physician Podiatry 12/04/24 Finance Manager Relationship Specialty Start Date End Date Lashaun Bradley DO [address] [place] [address] PCP - ACO Reach 03/29/23 Nitish Agrawal, [address] [place] [address] PCP - General Family Medicine 03/13/23 Elliot Elias MD [address] [facility] [address], [address] [place] [address] Referring Physician Cardiology 12/04/24 Nisha Farrar MD [address] [place] [address] [place] [address] Referring Physician Podiatry 12/04/24 FOR RECORDS PERTAINING TO PATIENTS WHO ARE [...] BE BASED ON THE PRIMARY CLINICAL RECORDS. [facility] [employer] [facility]. provides no warranty or guarantee of the accuracy or completeness of information in this document.
== END 2025-02-10 09:53 | disposition home or self-care (01) ==
LOC: WC 09:53
PROVIDERS: PCP Family Medicine; Visit Provider Physician Assistant
DX: E11.621 Type 2 diabetes mellitus with foot ulcer (principal); L97.425 Non-pressure chronic ulcer of left heel and midfoot with muscle involvement without evidence of necrosis
CPT/HCPCS: 11042

== ENCOUNTER 2025-03-03 08:48 | Outpatient (OUT) | payer MEDICARE, OTHER, SELFPAY | END 2025-03-03 08:49 | disposition home or self-care (01) | LOC: WC 08:49 | PROVIDERS: PCP Family Medicine; Visit Provider Physician Assistant | DX: E11.621 Type 2 diabetes mellitus with foot ulcer (principal); L97.425 Non-pressure chronic ulcer of left heel and midfoot with muscle involvement without evidence of necrosis | CPT/HCPCS: 11043 ==

== ENCOUNTER 2025-03-24 09:03 | Outpatient (OUT) | payer MEDICARE, OTHER, SELFPAY ==
--- OUTSIDE RECORDS SUMMARY | 2025-03-24 09:10 | XMS_ITS | CCD ---
Author Organization [facility] Care Team Providers Care Animal Chiropractor Name Role Phone NITISH AGRAWAL~[phone] UNKNOWN Unavailable Unavailable Ayisire, Eseoghene N Unavailable [...] Unavailable DR NITISH AGRAWAL Primary Care Unavailable PATRICIA, JUNIOR H Attending Unavailable DR NITISH AGRAWAL Primary Care Unavailable Husam Gamez Consulting Unavailable PATRICIA, JUNIOR H Admitting Unavailable NISHA FARRAR Procedure Practitioner RHONDA Fulton Consulting Unavailable NISHA FARRAR Consulting Unavailable DALLIN, WYATT Consulting Unavailable JESSICA STEIN Consulting Unavailable HELGA GOLDBERG Consulting Unavailable PATRICIA, JNUIOR H Consulting Unavailable WILIAN ., LILA Consulting Unavailable NISHA FARRAR Attending Unavailable NISHA FARRAR Admitting Unavailable DR NITISH AGRAWAL Primary Care Unavailable HIGHLANDER, NISHA Núñez Consulting [...] Unavailable TANJA, DR CLEMENS Primary Care Unavailable Zieber, Husam Consulting Unavailable HIGHLANDER, NISHA Núñez Attending [...] HIGHLANDER, NISHA Núñez Attending Unavailable HIGHLANDER, NISHA úNñez Admitting Unavailable HIGHLANDER, NISHA Núñez Admitting Unavailable [...] Núñez Attending Unavailable Barbara Ellis Unavailable Nitish Agrawal DO Primary Care Provider Lashaun Bradley DO Unavailable [phone] Nitish Agrawal DO Primary Care Provider [phone] Elliot Elias MD Unavailable [phone] Nisha Farrar MD Unavailable [phone] Nitish Agrawal DO Primary Care Provider Elliot Elias MD Unavailable LASHAUN BRADLEY Attending Unavailable NITISH AGRAWAL Referring Unavailable NITISH AGRAWAL Attending Unavailable JOYCE LOYD Attending Unavailable LATHA CAICEDO Attending Unavailable LASHAUN BRADLEY Attending Unavailable LASHAUN BRADLEY Attending Unavailable NITISH AGRAWAL Referring Unavailable NITISH AGRAWAL Attending Unavailable NITISH AGRAWAL Referring Unavailable BARI CHOWDHURY Attending Unavailable LASHAUN BRADLEY Attending Unavailable MARTIN ELIAS Referring Unavailable NITISH AGRAWAL Primary Care Unavailable MARTIN ELIAS Attending Unavailable MARTIN ELIAS Referring Unavailable NITISH AGRAWAL Primary Care Unavailable MARTIN ELIAS Referring Unavailable NITISH AGRAWAL Primary Care Unavailable Allergies Allergy Classification Reported Allergen(s) Allergy Type Date of Onset Reaction(s) Facility (5 sources) Angiotensin Converting Enzyme (Neris) Inhibitors; Translations: [NERIS Inhibitors] Allergy to drug (finding) 3 Hypotension [facility] Repository (7 sources) Angiotensin-conv erting enzyme inhibitor agent Drug Intolerance 3 Unknown [facility] Medications Current Medications Medication Drug Class(es) Dates [...] Jacki cium Active Blood Glucose Monitoring Suppl ([employer] Verio Flex System) w/Device kit (19 sources) Blood Glucose Monitoring Suppl ([employer] Verio Flex System) w/Device kit Active canagliflozin 100 mg oral tablet (20 sources) Sodium-Glucose Cotransporter 2 Inhibitor take 1 [...] x week, 30 day supply 120 mL 06/27/2024 Active Start: 06-27-2024 ciclopirox (Lo prox) [...] ve hydrOXYzine hydrochloride 25 mg oral tablet (2 sources) Antihistamine Start: 01-29-2025 take 2 tablets by [...] Active Start: 10-20-2021 take 1 tablet by once daily Isosorbide Mononitrate ER 30 MG Oral Tablet Extended Release 24 Hour TAKE 1 TABLET DAILY. Quantity: 90 Refills: 3 Ordered: 20-Oct-2021 Helga Flores DO Start : 20-Oct-2021 Active ammonium lactate 120 mg/ml topical lotion (3 sources) Start: 11-25-2024 ammonium lacta te (Lac-Hydrin) [...] pain. 100 tablet 1 10/15/2024 Active Nitrostat Erica-Ta gregory Ozempic 1 mg/dose (4 mg/3 mL) pen injector (1 source) Start: 03-04-2024 End: 01-28-2025 inject 1 mg by subcutaneous injection every week Ozempic 1 mg/dose (4 mg/3 mL) pen injector Inject 1 mg under the skin 1 (one) time per week. 03/04/2024 01/28/2025 Discontinued (Dose adjustment) Ozempic 2 mg/dose (8 mg/3 mL) pen injector (6 sources) Start: 11-23-2024 Ozempic 2 mg/d ose (8 mg/3 mL) pen injector Inject 2 mg under the skin every 7 days. 11/23/2024 Active Semaglutide, 2 MG/DOSE, (Ozempic, 2 MG/DOSE,) 8 MG/3ML solution pen-injector (13 sources) Start: 09-01-2024 inject 2 mg by [...] 09/01/2024 Active sertraline 50 mg oral tablet (2 sources) Serotonin Reuptake Inhibitor Start: 01-29-2025 End: 07-28-2025 take 1 tablet by mouth once daily sertraline (Zoloft) 50 MG tablet Indications: Anxiety Take 1 tablet (50 mg) by mouth Daily 30 tablet 5 01/29/2025 07/28/2025 Active Completed/Discontinued Medications Medication Drug Class(es) Dates Sig (Normalized) Sig (Original) regadenoson (Lexiscan) injection 0.4 mg (1 source) Start: 02-23-2025 End: 02-23-2025 0.4 mg, intravenous, Once, On Sun02/23/25 at 0930, For 1 dose semaglutide (Ozempic, 1 MG/DOSE,) 4 MG/3ML solution [...] week 9 mL 3 03/03/2024 03/03/2025 Active Tc-99m tetrofosmin (Myoview) injection 10 millicurie (1 source) Start: 02-23-2025 End: 02-23-2025 10 millicurie, intravenous, Once in imaging, Starting on Sun02/23/25 at 0825, For 1 dose, Administer 45 to 90 minutes prior to imaging unless otherwise indicated. Tc-99m tetrofosmin (Myoview) injection 30 millicurie (1 source) Start: 02-23-2025 End: 02-23-2025 30 millicurie, intravenous, Once in imaging, Starting on Sun02/23/25 at 0937, For 1 dose, Administer 45 to 90 minutes prior to imaging unless otherwise indicated. Problems Active Problems Problem Classification Problem Date [...] Onset: 03-28-2022 Chronic Congestive heart failure; nonhypertensive (17 sources) Congestive heart failure stage C; Translations: [Congestive heart failure, unspecified] Onset: 08-31-2023 08-31-2023 Chronic Coronary atherosclerosis and other heart disease (20 sources) Multi vessel coronary artery disease; Translations: [Coronary atherosclerosis of unspecified type of vessel, [place] or graft] Onset: 03-29-2016 01-29-2024 Chronic Coronary atherosclerosis and other heart disease (4 sources) Presence of aortocoronary bypass graft; Translations: [...] hyperlipidemia] Onset: 12-05-2022 01-29-2024 Chronic Esophageal disorders (19 sources) Gastroesophageal reflux disease without esophagitis; Translations: [...] RT ANKLE FOOT] Onset: 03-28-2022 Chronic Osteoarthritis (19 sources) Osteoarthritis of knee; Translations: [Osteoarthritis of knee, unspecified] Onset: 03-29-2016 08-06-2023 Chronic Other acquired deformities (1 source) Contracture, left ankle; Translations: [CONTRACTURE LEFT ANKLE] Onset: 12-05-2022 Chronic Other aftercare (2 sources) [facility] (current) use of insulin; Translations: [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 (Multi)] Onset: 08-31-2023 Episodic Other bone disease and musculoskeletal deformities (2 sources) Absence of toe; Translations: [Acquired absence of other right toe(s)] 08-04-2024 Episodic Other circulatory disease (4 sources) Peripheral vascular angioplasty status; Translations: [Peripheral vascular angioplasty status] Onset: 08-31-2023 Episodic Other nervous system disorders (10 sources) Difficulty walking; Translations: [Difficulty in walking, [...] Onset: 05-30-2022 Episodic Peripheral and visceral atherosclerosis (3 sources) Arteriosclerotic vascular disease 01-28-2025 Chronic Poisoning [...] RT FOOT] Onset: 07-13-2022 Episodic Administrative/social admission (10 sources) Reduced mobility; Translations: [Other reduced mobility] Onset: 03-29-2016 01-28-2025 Episodic Deficiency and other anemia (19 sources) Anemia; Translations: [Anemia, unspecified] Onset: 03-29-2016 08-06-2023 Episodic Mood disorders (8 sources) Mood disorders Onset: 12-04-2024 12-04-2024 Mycoses (5 sources) Tinea unguium; Translations: [TINEA UNGUIUM] Onset: 10-24-2022 Episodic Other aftercare (1 source) 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; Translations: [SKILLED NURSING CURRENT USE OF ASPIRIN] Onset: 03-28-2022 Episodic Other aftercare (1 source) Other long-term (current) drug therapy; Translations: [OTH SKILLED NURSING CURRENT DRUG THERAPY] Onset: 03-28-2022 Episodic Other [...] Onset: 11-28-2022 Episodic Other connective tissue disease (10 sources) Muscle weakness; Translations: [Muscle weakness (generalized)] [...] Episodic Other nutritional; endocrine; and metabolic disorders (18 sources) Overweight in adulthood with body mass index of 25 or more but less than 30; Translations: [Overweight] Onset: 01-29-2024 01-29-2024 Episodic Other screening for suspected conditions (not mental disorders or infectious disease) (20 sources) Cardiovascular stress test abnormal; Translations: [Other [...] 10-10-2021 Resolved: 10-10-2021 Episodic Residual codes; unclassified (14 sources) Never smoked tobacco; Translations: [Other specified [...] smoked tobacco; Translations: [Never a smoker] Unclassified (7 sources) Onset: 01-29-2024 01-29-2024 Results Test Name Value Interpretation Reference Range Facility [facility] Heart Perfusion W stress and W radionuclide Rei 02-23-2025 Abnormal Lexiscan Myoview cardiac perfusion stress test. No myocardial ischemia by perfusion imaging. No myocardial infarction by perfusion imaging. Abnormal left ventricular systolic function, mild global hypokinesis. Left ventricular ejection fraction 45 %. When compared to a study from 2021, the previous study reported inferolateral myocardial infarction with small lateral myocardial ischemia which is no longer seen, ejection fraction has improved from 40% up to 45%. Signed by: Erika Osborne 02/23/2025 6:21 PM Dictation workstation: [id number] [facility] Interpreted By: Erika Osborne and Giannuzzi Michael STUDY: MYOCARDIAL PERFUSION STRESS TEST WITH LEXISCAN Performing facility: [facility], [address] [place] [address], [address], [address] Provider: Ratna Elias DO, FACC PCP: Dr. Vineet Agrawal Supervising provider: Yamilka Rebollar MD, FACC INDICATION: Signs/Symptoms:h/o pci, angina 2-3, palps, tachy. ,I25.10 Atherosclerotic heart disease of [place] coronary artery without angina pectoris,Z95.1 Presence of aortocoronary bypass graft,Z98.62 Peripheral vascular angioplasty status,I20.9 Angina pectoris, unspecified,R00.2 Palpitations,R00.0 Tachycardia, unspecified HISTORY: Gender: M; Age: 70 y/o ; Height: HT 185.4 cm cm; Weight: WT 98.612 kg kg. CAD; High Cholesterol; HTN; Arrhythmias;ST Palpitations; Chest Pain; SOB; CHF ICM Denies smoking. Cardiac catheterization on 2014. PTCA on 2014. CABG on 1992. COMPARISON: Previous nuclear testing completed at [facility]. ACCESSION NUMBER(S): [id number] ORDERING CLINICIAN: MARTIN ELIAS TECHNIQUE: ONE DAY protocol. Stress injection: Date:06-25-25, 33.9 mCi of Myoview IV 20 seconds after rapid injection of Lexiscan. Rest injection: Date: 06-25-25, 10.3 mCi of Myoview IV at rest. The patient had a rapid injection of 0.4 mg of Lexiscan IV over 10 seconds. Imaging was performed by gated tomographic technique. Reason for Lexiscan: dizziness/unsteady/fa ll risk STRESS TEST DATA: Resting heart rate was 76 BPM. Resting blood pressure was 136/86 mmHg. Peak blood pressure was 128/78 mmHg. Peak heart rate was 90 BPM. TEST TERMINATED DUE TO: Protocol completed FINDINGS: STRESS TEST RESULTS: Resting electrocardiogram revealed normal sinus rhythm with first-degree AV block, incomplete left bundle branch block, diffuse repolarization abnormalities. There were no significant ischemic ECG changes or dysrhythmias. The patient did not have chest pains/symptoms during procedure. There was a normal recovery phase. IMAGING RESULTS: Image quality was good. Rest and stress tomographic images were reviewed and revealed abnormal perfusion. There was no evidence of perfusion abnormality consistent with ischemia. There was no evidence of perfusion abnormality consistent with infarction. There was no left ventricular dilatation with stress. Overall left ventricular systolic function appeared to be abnormal. There was mild global hypokinesis. LVEF was 45%. TID is 0.98 and is normal. There was evidence of inferoapical attenuation artifact. [facility] Erika Osborne M D - 02/23/2025 Interpreted By: Erika Osborne and Giannuzzi Michael STUDY: MYOCARDIAL PERFUSION STRESS TEST WITH LEXISCAN Performing facility: [facility], [address] [place] [address], [address], [place], [place] [address] Provider: Ratna Elias DO, FACC PCP: Dr. Vineet Agrawal Supervising provider: Yamilka Rebollar MD, FACC INDICATION: Signs/Symptoms:h/o pci, angina 2-3, palps, tachy. ,I25.10 Atherosclerotic heart disease of [place] coronary artery without angina pectoris,Z95.1 Presence of aortocoronary bypass graft,Z98.62 Peripheral vascular angioplasty status,I20.9 Angina pectoris, unspecified,R00.2 Palpitations,R00.0 Tachycardia, unspecified HISTORY: Gender: M; Age: 70 y/o ; Height: HT 185.4 cm cm; Weight: WT 98.612 kg kg. CAD; High Cholesterol; HTN; Arrhythmias;ST Palpitations; Chest Pain; SOB; CHF ICM Denies smoking. Cardiac catheterization on 2014. PTCA on 2014. CABG on 1992. COMPARISON: Previous nuclear testing completed at [facility]. ACCESSION NUMBER(S): [id number] ORDERING CLINICIAN: MARTIN ELIAS TECHNIQUE: ONE DAY protocol. Stress injection: Date:06-25-25, 33.9 mCi of Myoview IV 20 seconds after rapid injection of Lexiscan. Rest injection: Date: 06-25-25, 10.3 mCi of Myoview IV at rest. The patient had a rapid injection of 0.4 mg of Lexiscan IV over 10 seconds. Imaging was performed by gated tomographic technique. Reason for Lexiscan: dizziness/unsteady/fa ll risk STRESS TEST DATA: Resting heart rate was 76 BPM. Resting blood pressure was 136/86 mmHg. Peak blood pressure was 128/78 mmHg. Peak heart rate was 90 BPM. TEST TERMINATED DUE TO: Protocol completed FINDINGS: STRESS TEST RESULTS: Resting electrocardiogram revealed normal sinus rhythm with first-degree AV block, incomplete left bundle branch block, diffuse repolarization abnormalities. There were no significant ischemic ECG changes or dysrhythmias. The patient did not have chest pains/symptoms during procedure. There was a normal recovery phase. IMAGING RESULTS: Image quality was good. Rest and stress tomographic images were reviewed and revealed abnormal perfusion. There was no evidence of perfusion abnormality consistent with ischemia. There was no evidence of perfusion abnormality consistent with infarction. There was no left ventricular dilatation with stress. Overall left ventricular systolic function appeared to be abnormal. There was mild global hypokinesis. LVEF was 45%. TID is 0.98 and is normal. There was evidence of inferoapical attenuation artifact. IMPRESSION: Abnormal Lexiscan Myoview cardiac perfusion stress test. No myocardial ischemia by perfusion imaging. No myocardial infarction by perfusion imaging. Abnormal left ventricular systolic function, mild global hypokinesis. Left ventricular ejection fraction 45 %. When compared to a study from 2021, the previous study reported inferolateral myocardial infarction with small lateral myocardial ischemia which is no longer seen, ejection fraction has improved from 40% up to 45%. Signed by: Erika Osborne 02/23/2025 6:21 PM Dictation workstation: [id number] [facility] Work Phone: Radiology Study observation (narrative) [facility] Work Phone: NM Heart Perfusion W stress and W radionuclide IVOrdered By: Erika Osborne on 02-23-2025 [facility] Work Phone: NUCLEAR STRESS TESTon 2024 NUCLEAR STRESS TEST Interpreted By: Erika Osborne, and Maine Lopez STUDY: MYOCARDIAL PERFUSION STRESS TEST WITH LEXISCAN Performing facility: [facility], [address] [place] [address], [address], [address] Provider: Ratna Elias DO, FACC PCP: Dr. Vineet Agrawal Supervising provider: Yamilka Rebollar MD, FACC INDICATION: Signs/Symptoms:h/o pci, angina 2-3, palps, tachy. ,I25.10 Atherosclerotic heart disease of [place] coronary artery without angina pectoris,Z95.1 Presence of aortocoronary bypass graft,Z98.62 Peripheral vascular angioplasty status,I20.9 Angina pectoris, unspecified,R00.2 Palpitations,R00.0 Tachycardia, unspecified HISTORY: Gender: M; Age: 70 y/o ; Height: HT 185.4 cm cm; Weight: WT 98.612 kg kg. CAD; High Cholesterol; HTN; Arrhythmias;ST Palpitations; Chest Pain; SOB; CHF ICM Denies smoking. Cardiac catheterization on 2014. PTCA on 2014. CABG on 1992. COMPARISON: Previous nuclear testing completed at [facility]. ACCESSION NUMBER(S): [id number] ORDERING CLINICIAN: MARTIN ELIAS TECHNIQUE: ONE DAY protocol. Stress injection: Date:06-25-25, 33.9 mCi of Myoview IV 20 seconds after rapid injection of Lexiscan. Rest injection: Date: 06-25-25, 10.3 mCi of Myoview IV at rest. The patient had a rapid injection of 0.4 mg of Lexiscan IV over 10 seconds. Imaging was performed by gated tomographic technique. Reason for Lexiscan: dizziness/unsteady/fa ll risk STRESS TEST DATA: Resting heart rate was 76 BPM. Resting blood pressure was 136/86 mmHg. Peak blood pressure was 128/78 mmHg. Peak heart rate was 90 BPM. TEST TERMINATED DUE TO: Protocol completed FINDINGS: STRESS TEST RESULTS: Resting electrocardiogram revealed normal sinus rhythm with first-degree AV block, incomplete left bundle branch block, diffuse repolarization abnormalities. There were no significant ischemic ECG changes or dysrhythmias. The patient did not have chest pains/symptoms during procedure. There was a normal recovery phase. IMAGING RESULTS: Image quality was good. Rest and stress tomographic images were reviewed and revealed abnormal perfusion. There was no evidence of perfusion abnormality consistent with ischemia. There was no evidence of perfusion abnormality consistent with infarction. There was no left ventricular dilatation with stress. Overall left ventricular systolic function appeared to be abnormal. There was mild global hypokinesis. LVEF was 45%. TID is 0.98 and is normal. There was evidence of inferoapical attenuation artifact. IMPRESSION: Abnormal Lexiscan Myoview cardiac perfusion stress test. No myocardial ischemia by perfusion imaging. No myocardial infarction by perfusion imaging. Abnormal left ventricular systolic function, mild global hypokinesis. Left ventricular ejection fraction 45 %. When compared to a study from 2021, the previous study reported inferolateral myocardial infarction with small lateral myocardial ischemia which is no longer seen, ejection fraction has improved from 40% up to 45%. Signed by: Erika Osborne 02/23/2025 6:21 PM Dictation workstation: [id number] [facility] NUCLEAR STRESS TEST EXERCISE (CARD)on 02-23-2025 Source Facility: [facility] Interpreted By: Erika Osborne, Sahil Lopez STUDY: MYOCARDIAL PERFUSION STRESS TEST WITH LEXISCAN Performing facility: [facility], [address], [address], [place] [id number] [facility] Provider: Ratna Elias DO, FACC PCP: Dr. Vineet Agrawal Supervising provider: Yamilka Rebolalr MD, FACC INDICATION: Signs/Symptoms:h/o pci, angina 2-3, palps, tachy. ,I25.10 Atherosclerotic heart disease of [place] coronary artery without angina pectoris,Z95.1 Presence of aortocoronary bypass graft,Z98.62 Peripheral vascular angioplasty status,I20.9 Angina pectoris, unspecified,R00.2 Palpitations,R00.0 Tachycardia, unspecified HISTORY: Gender: M; Age: 70 y/o ; Height: HT 185.4 cm cm; Weight: WT 98.612 kg kg. CAD; High Cholesterol; HTN; Arrhythmias;ST Palpitations; Chest Pain; SOB; CHF ICM Denies smoking. Cardiac catheterization on 2014. PTCA on 2014. CABG on 1992. COMPARISON: Previous nuclear testing completed at [facility]. ACCESSION NUMBER(S): [id number] ORDERING CLINICIAN: MARTIN ELIAS TECHNIQUE: ONE DAY protocol. Stress injection: Date:06-25-25, 33.9 mCi of Myoview IV 20 seconds after rapid injection of Lexiscan. Rest injection: Date: 06-25-25, 10.3 mCi of Myoview IV at rest. The patient had a rapid injection of 0.4 mg of Lexiscan IV over 10 seconds. Imaging was performed by gated tomographic technique. Reason for Lexiscan: dizziness/unsteady/fa ll risk STRESS TEST DATA: Resting heart rate was 76 BPM. Resting blood pressure was 136/86 mmHg. Peak blood pressure was 128/78 mmHg. Peak heart rate was 90 BPM. TEST TERMINATED DUE TO: Protocol completed FINDINGS: STRESS TEST RESULTS: Resting electrocardiogram revealed normal sinus rhythm with first-degree AV block, incomplete left bundle branch block, diffuse repolarization abnormalities. There were no significant ischemic ECG changes or dysrhythmias. The patient did not have chest pains/symptoms during procedure. There was a normal recovery phase. IMAGING RESULTS: Image quality was good. Rest and stress tomographic images were reviewed and revealed abnormal perfusion. There was no evidence of perfusion abnormality consistent with ischemia. There was no evidence of perfusion abnormality consistent with infarction. There was no left ventricular dilatation with stress. Overall left ventricular systolic function appeared to be abnormal. There was mild global hypokinesis. LVEF was 45%. TID is 0.98 and is normal. There was evidence of inferoapical attenuation artifact. IMPRESSION: Abnormal Lexiscan Myoview cardiac perfusion stress test. No myocardial ischemia by perfusion imaging. No myocardial infarction by perfusion imaging. Abnormal left ventricular systolic function, mild global hypokinesis. Left ventricular ejection fraction 45 %. When compared to a study from 2021, the previous study reported inferolateral myocardial infarction with small lateral myocardial ischemia which is no longer seen, ejection fraction has improved from 40% up to 45%. Signed by: Erika Osborne 02/23/2025 6:21 PM Dictation workstation: [id number] Radiology, Radiologist, - 02/24/2025 Source Facility: [facility] Interpreted By: Erika Osborne and Giannuzzi Michael STUDY: MYOCARDIAL PERFUSION STRESS TEST WITH LEXISCAN Performing facility: [facility], [address], [address], [place] [address] [facility] Provider: Ratna Elias DO, [facility] PCP: Dr. Vineet Agrawal Supervising provider: Yamilka Rebollar MD, FACC INDICATION: Signs/Symptoms:h/o pci, angina 2-3, palps, tachy. ,I25.10 Atherosclerotic heart disease of [place] coronary artery without angina pectoris,Z95.1 Presence of aortocoronary bypass graft,Z98.62 Peripheral vascular angioplasty status,I20.9 Angina pectoris, unspecified,R00.2 Palpitations,R00.0 Tachycardia, unspecified HISTORY: Gender: M; Age: 70 y/o ; Height: HT 185.4 cm cm; Weight: WT 98.612 kg kg. CAD; High Cholesterol; HTN; Arrhythmias;ST Palpitations; Chest Pain; SOB; CHF ICM Denies smoking. Cardiac catheterization on 2014. PTCA on 2014. CABG on 1992. COMPARISON: Previous nuclear testing completed at [facility]. ACCESSION NUMBER(S): [id number] ORDERING CLINICIAN: MARTIN ELIAS TECHNIQUE: ONE DAY protocol. Stress injection: Date:06-25-25, 33.9 mCi of Myoview IV 20 seconds after rapid injection of Lexiscan. Rest injection: Date: 06-25-25, 10.3 mCi of Myoview IV at rest. The patient had a rapid injection of 0.4 mg of Lexiscan IV over 10 seconds. Imaging was performed by gated tomographic technique. Reason for Lexiscan: dizziness/unsteady/fa ll risk STRESS TEST DATA: Resting heart rate was 76 BPM. Resting blood pressure was 136/86 mmHg. Peak blood pressure was 128/78 mmHg. Peak heart rate was 90 BPM. TEST TERMINATED DUE TO: Protocol completed FINDINGS: STRESS TEST RESULTS: Resting electrocardiogram revealed normal sinus rhythm with first-degree AV block, incomplete left bundle branch block, diffuse repolarization abnormalities. There were no significant ischemic ECG changes or dysrhythmias. The patient did not have chest pains/symptoms during procedure. There was a normal recovery phase. IMAGING RESULTS: Image quality was good. Rest and stress tomographic images were reviewed and revealed abnormal perfusion. There was no evidence of perfusion abnormality consistent with ischemia. There was no evidence of perfusion abnormality consistent with infarction. There was no left ventricular dilatation with stress. Overall left ventricular systolic function appeared to be abnormal. There was mild global hypokinesis. LVEF was 45%. TID is 0.98 and is normal. There was evidence of inferoapical attenuation artifact. IMPRESSION: Abnormal Lexiscan Myoview cardiac perfusion stress test. No myocardial ischemia by perfusion imaging. No myocardial infarction by perfusion imaging. Abnormal left ventricular systolic function, mild global hypokinesis. Left ventricular ejection fraction 45 %. When compared to a study from 2021, the previous study reported inferolateral myocardial infarction with small lateral myocardial ischemia which is no longer seen, ejection fraction has improved from 40% up to 45%. Signed by: Erika Osborne 02/23/2025 6:21 PM Dictation workstation: [id number] [facility] Radiology Study observation (narrative) [facility] NUCLEAR STRESS TEST EXERCISE (CARD)Ordered By: Radiologist Radiology on 02-23-2025 [facility] LOOKSIM[facility]car e Work Phone: ALL BASIC METABOLIC PANELon 01-28-2025 Anion gap [Moles/Vol] 13.7 mmol/L [facility] Calcium [Mass/Vol] 8.8 mg/dL 8.5 - 10. 1 mg/dL [facility] Chloride [Moles/Vol] 104 mmol/L 98 - 10 7 mmol/L [facility] CO2 [Moles/Vol] 25.7 mmol/L 21.0 - 32.0 mmol/L [facility] Creatinine [Mass/Vol] 1.39 mg/dL High 0.70 - 1.30 mg/dL [facility] GFR/1.73 sq M.predicted CKD-EPI (S/P/Bld) [Vol rate/Area] >60 >=60 mL/min/1.73m 2 [facility] Glucose [Mass/Vol] 150 mg/dL High 74 - 106 mg/dL [facility] Potassium [Moles/Vol] 4.4 mmol/L 3.5 - 5.1 mmol/L [facility] Sodium [Moles/Vol] 139 mmol/L 136 - 145 mmol/L [facility] TBH EGFR-NON AF GUINEAN 51 Low >=60 mL/min/1.73m 2 [facility] Urea nitrogen [Mass/Vol] 25 mg/dL High 7.0 - 18.0 mg/dL [facility] Urea nitrogen/Creatinine [Mass ratio] 18 mg/mg [facility] ALL PRO BNPon 01-28-2025 NT PRO B TYPE NATRIURETIC PEPT 1185 pg/mL High NINF - 900.0 pg/mL [facility] No Panel Informationon 01-28 Interpretation and review of laboratory results Abnormal [facility] HbA1c (Bld) [Mass fraction]o n 12-01-2024 Interpretation and review of laboratory results [facility] and Cell countson 12-01-2024 HbA1c (Bld) [Mass fraction] 7.7 % [facility] HbA1c (Bld) [Mass fraction]o n 09-01-2024 Interpretation and review of laboratory results Abnormal [facility] - Hematology and Cell countson 09-01-2024 HbA1c (Bld) [Mass fraction] 8.6 % [facility] No Panel Informationon 06-27 [facility] Carcinoembryonic Ag [Mass/Vo l]on 06-20-2024 Performing Organization Information Site ID: QPT Name: [facility] Address: [address] [place] [address], [address] [place] [id number] Director: Edil Bedolla MD [facility] Laboratory - Chemistry and C hemistry - challengeon 06-20-2024 Calcitonin [Mass/Vol] 6 pg/mL NINF - 10 pg/mL [facility] Comment on above: This test was performed using the Siemens Chemiluminescent method. Values obtained with different assay methods cannot be used interchangeably. Calcitonin levels, regardless of value, should not be interpreted as absolute evidence of the presence or absence of the disease. Carcinoembryonic Ag [Mass/Vol] ng/mL See Note: ng/mL [facility] Comment on above: Reference Range: Non-Smoker: <2.5 Smoker: <5.0 This test was performed using the Siemens chemiluminescent method. Values obtained from different assay methods cannot be used interchangeably. CEA levels, regardless of value, should not be interpreted as absolute evidence of the presence or absence of disease. No Panel Informationon 06-20 Performing Organization Information Site ID: [facility] Name: [facility] Address: [address] [place] [address] Dr [place], [place] Director: Huan Tate M.D.,PhD [facility] Health[facility] [place] THYROIDon 06-16-2024 [place] [...] report is generated using voice recognition reporting (Quaam). On occasion Quaam erroneously drops words from the report or [...] report is generated using voice recognition reporting ([employer]). On occasion PowerScribe erroneously drops words from [...] report is generated using voice recognition reporting ([employer]). On occasion PowerScribe erroneously drops words from the report or replaces the spoken word with similar sounding words. Please call with any questions/concerns regarding this report.* Dictated and transcribed 06/16/2024/ This report has been electronically signed and approved by the interpreting radiologist. Electronically Signed Martin Christianson II, M.D. 2024-06-16 16:43:23 [facility] Radiology Study observation (narrative) [facility] Thyroid glandOrdered By: Martin Christianson on 06-16-2024 [facility] [employer] Work Phone: Office Visit (Cardiology)on 01-23-2023 [...] are negat (more content not included)... Normal [facility] Tobacco Screening.on 023 Adult depression screening assessment No [facility] 250 DO Work Phone: Fall risk assessment a) No falls within the last year [facility] 250 DO Work Phone: Tobacco use status [facility] b) No [facility] Work Phone: ACID FAST SMEAR AND CXon Acid Fast Culture Negative Normal [facility] Comment on above: Result Comment: No a monse fast bacilli isolated after 6 weeks. Performed By: #### A FB #### [facility] [address] [place] [address] Dr. Balta Gorman Acid Fast Smear Negative Normal [facility] Comment on above: Performed By: #### A FB #### [facility] [address] [place] [address] Dr. Balta Gorman [employer] Specimen Processing Tissue Gr[facility] Comment on above: Performed By: #### A FB #### [facility] [address] [place] [address] Dr. Balta Gorman FUNGAL CULTUREon 07-11-2022 Fungus (Mycology) Culture Final report [facility] Comment on above: Performed By: #### C XFUN #### [facility] [address] [place] [address] Dr. Balta Gorman Fungus Stain Final report Normal [facility] Comment on above: Performed By: #### C XFUN #### [facility] [address] [place] [address] Dr. Balta Gorman Result 1 Comment Normal [facility] Comment on above: Result Comment: FRANCISCA/ Calcofluor preparation: no fungus observed. Performed By: #### C XFUN #### [facility] [address] [place] [address] Dr. Balta Gorman Result Comment: No y east or mold isolated after 4 weeks. WOUND CULTUREon 06-15-2022 Bacteria identified Aer cx Nom (Unsp spec) Final report Normal [facility] Comment on above: Performed By: #### A FB #### [facility] [address] [address] [address] Balta Gorman Result 1 Comment Normal [facility] Comment on above: Result Comment: No g rowth in 36 - 48 hours. Performed By: #### A FB #### [facility] [address] [address] [address] Balta CAVAZOS STAINon 06-12-2022 DIPHTHEROIDS Normal [facility] Comment on above: Performed By: #### C VDTBH #### [facility] [address] [address] [address] Balta Gorman EPITHELIALS Normal [facility] Comment on above: Performed By: #### C VDTBH #### [facility] [address] [place] [address] Dr. Balta Gorman FUNGAL ELEMENTS Normal [facility] Comment on above: Performed By: #### C VDTBH #### [facility] [address] [address] [address] Balta CAVAZOS NEG BACILLI Normal [facility] Comment on above: Performed By: #### C VDTBH #### [facility] [address] [address] [address] Balta CAVAZOS NEG DIPPLOCOCCI Normal [facility] Comment on above: Performed By: #### C VDTBH #### [facility] [address] [address] [address] Balta CAVAZOS POS BACILLI Normal [facility] Comment on above: Performed By: #### C VDTBH #### [facility] [address] [address] [address] Balta Gorman GRAM POSITIVE COCCI Normal [facility] Comment on above: Performed By: #### C VDTBH #### [facility] [address] [address] [address] Balta Gorman GRAM STAIN SOURCE Rt 4th Toe Bone Normal [facility] Comment on above: Performed By: #### C VDTBH #### [facility] [address] [place] [address] Dr. Balta Gorman GS_DIPTH Normal [facility] Comment on above: Performed By: #### C VDTBH #### [facility] [address] [address] [address] Balta Gorman WBC NONE SEEN Normal [facility] Comment on above: Performed By: #### C VDTBH #### [facility] [address] [address] [address] Balta Gorman POINT OF CARE GLUCOSEon Glucose [Mass/Vol] 168 mg/dL Critically high 74-106 [facility] Comment on above: Performed By: #### P OCGLUC ####[facility] [address] [address]Dr. Balta Gorman Glucose [Mass/Vol] 161 mg/dL Critically high 74-106 [facility] Comment on above: Performed By: #### P OCGLUC #### [facility] [address] [address] [address] Balta Gorman Covid-19 PCR ([facility]on SARS-CoV-2 (COVID-19) RNA DERICK+probe Ql (Unsp spec) Not detected Normal NOT DETECTED [facility] Comment on above: Result Comment: This test is not yet approved or cleared by the [place] FDA. When there are no FDA-approved or cleared tests available, and other criteria are met, FDA can make tests available under an emergency access mechanism called an Emergency Use Authorization (EUA). The EUA for this test is supported by the [place] of Health and Human Service's (HHS's) declaration [...] with SARS-CoV-2. Performed By: #### C VDTBH ####[facility] [address] [place], [place] [address]McDr. Balta Gorman PROF CHEM 8 (BAS METB)on Anion gap [Moles/Vol] 13.3 mmol/L Normal [facility] Comment on above: Performed By: #### C VDTBH #### [facility] [address] [address] [address] Balta Gorman Calcium [Mass/Vol] 8.7 mg/dL Normal 8.5-10.1 [facility] Comment on above: Performed By: #### C VDTBH #### [facility] [address] [address] [address] Balta Gorman Chloride [Moles/Vol] 106 mmol/L Normal 98-107 [facility] Comment on above: Performed By: #### C VDTBH #### [facility] [address] [address] [address] Balta Gorman CO2 [Moles/Vol] 23.9 mmol/L Normal 21.0-32.0 [facility] Comment on above: Performed By: #### C VDTBH #### [facility] [address] [address] [address] Balta Gorman Creatinine [Mass/Vol] 1.24 mg/dL Normal 0.70-1.30 [facility] Comment on above: Performed By: #### C VDTBH #### [facility] [address] [address] [address] Balta Gorman EGFR-AF GUINEAN >60 Normal >=60 [facility] Comment on above: Performed By: #### C VDTBH #### [facility] [address] [address] [address] Balta Gorman EGFR-NON AF GUINEAN 58 mL/min/1.73m2 Critically low >=60 [facility] Comment on above: Performed By: #### C VDTBH #### [facility] [address] [address] [address] Balta Gorman Glucose [Mass/Vol] 158 mg/dL Critically high 74-106 [facility] Comment on above: Performed By: #### C VDTBH #### [facility] [address] [address] [address] Balta Gorman Potassium [Moles/Vol] 4.2 mmol/L Normal 3.5-5.1 [facility] Comment on above: Performed By: #### C VDTBH #### [facility] [address] [address] [address] Balta Gorman Sodium [Moles/Vol] 139 mmol/L Normal 136-145 [facility] Comment on above: Performed By: #### C VDTBH #### [facility] [address] [address] [address] Balta Gorman Urea nitrogen [Mass/Vol] 19.0 mg/dL Critically high 7.0-18.0 [facility] Comment on above: Performed By: #### C VDTBH #### [facility] [address] [address] [address] Balta Gorman Urea nitrogen/Creatinine [Mass ratio] 15.3 mg/mg Normal [facility] Comment on above: Performed By: #### C VDTBH #### [facility] [address] [address] [address] Balta Gorman ACID FAST SMEAR AND CXon Acid Fast Culture Negative Normal [facility] Comment on above: Result Comment: No a monse fast bacilli isolated after 6 weeks. Performed By: #### A FB ####[facility] [address] [id number] Gorman Acid Fast Smear Negative Normal [facility] Comment on above: Performed By: #### A FB ####[facility] [address] [id number] Gorman [employer] Specimen Processing Tissue [facility] Comment on above: Performed By: #### A FB ####[facility] [address] [id number] Gorman FUNGAL CULTUREon 05-05-2022 Fungus (Mycology) Culture Final report Normal [facility] [facility] Comment on above: Performed By: #### A FB #### [facility] [address] [place], [place] [address] Dr. Balta Gorman Fungus Stain Final report Normal [facility] Comment on above: Performed By: #### A FB #### [facility] [address] [place], [place] [address] Dr. Balta Gorman Result 1 Comment Normal [facility] Comment on above: Result Comment: FRANCISCA/ Calcofluor preparation: no fungus observed. Performed By: #### A FB #### [facility] [address] [place], [place] [address] Dr. Balta Gorman Result Comment: No y [...] Patient Instructions By signing my name below, Franchesca Recio LPN.,Scribe, attest that this documentation has been [...] back in 1992 at [facility] in [place]. 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 This was redilated and stented. He had a recent episode at cardiac rehab in [place] and because of this was seen in [...] Recorded: 01May2022 09:28AM Heart Rate80, L Radial Jlrasbhc38, LUE, Sitting Vswfgjjfp59, LUE, Sitting Height6 ft 1 in Icfohr752 lb BMI Bkzzsfrapo09.42 kg/m2 BSA Calculated2.25 Tobacco Useb) No Falls Screening (Age 18+)a) No falls within the last year Signatures Electronically signed by : Helga Flores DO; May 01 2022 11:18AM EST (Author) Normal [employer] Tobacco Screening.on 022 Fall risk assessment a) No falls within the last year [facility] [employer] 250 DO Work Phone: Tobacco use status [facility] b) No [facility] 250 DO Work Phone: XR FOOT LT [...] JOSE MARTIN WHITAKER Date: 2022-04-14 10:08 Normal [facility] TISSUE CULTUREon 04-07-2022 Anaerobic Culture, Extended Incubation Final report Normal [facility] Comment on above: Performed By: #### A FB #### [facility] [address] [address] [address] Balta Gorman Result 1 Comment Normal [facility] Comment on above: Result Comment: No g rowth in 56 - 72 hours. Performed By: #### A FB #### [facility] [address] [place] [address] Dr. Balta Gorman Result Comment: No g rowth after 14 days. Tissue Culture Final report Normal [facility] Comment on above: Performed By: #### A FB #### [facility] [address] [address] [address] Balta Gorman WOUND CULTUREon 03-26-2022 Antimicrobial Susceptibility Comment Normal [facility] Comment on above: Result Comment: S = Susceptible; I = Intermediate; R = Resistant P = Positive; N = Negative MICS are expressed in micrograms per mL Antibiotic RSLT#1 RSLT#2 RSLT#3 RSLT#4 Ciprofloxacin R Clindamycin S Erythromycin S Gentamicin S Levofloxacin R Linezolid S Oxacillin R Penicillin R Rifampin S Tetracycline S Trimethoprim/Sulfa R Vancomycin S Performed By: #### A FB #### [facility] [address] [place] [address] Dr. Balta Gorman Bacteria identified Aer cx Nom (Unsp spec) Final report Abnormal [facility] Comment on above: Performed By: #### A FB #### [facility] [address] [place] [address] Dr. Balta Gorman Result 1 Comment Abnormal [facility] Comment on above: Result Comment: Meth icillin - resistant Staphylococcus aureus Based on resistance to oxacillin this isolate would be resistant to all currently available beta-lactam antimicrobial agents, with the exception of the newer cephalosporins with anti-MRSA activity, such as Ceftaroline Heavy growth Performed By: #### A FB #### [facility] [address] [address] [address] Balta Gorman CBC AUTO DIFFon 03-24-2022 BASO # 0.0 103/ul Normal 0.0-0.1 [facility] Comment on above: Performed By: #### C BC ####[facility] [address] [address]DrPaola Gorman Basophils/100 WBC (Bld) 0.5 % Normal 0.2-2.0 [facility] Comment on above: Performed By: #### C BC ####[facility] [address] [address]Dr. Balta Gorman EO # 0.1 103/ul Normal 0.0-0.7 [facility] Comment on above: Performed By: #### C BC ####[facility] [address] [address]Dr. Balta Gorman Eosinophils/100 WBC (Bld) 1.1 % Normal 0.9-7.0 [facility] Comment on above: Performed By: #### C BC ####[facility] [address] [place], [place] [address]Dr. Balta Gorman Erythrocyte distribution width (RBC) [Ratio] 16.9 % Critically high 11.0-15.0 [facility] Comment on above: Performed By: #### C BC ####[facility] [address] [place], [place] [address]DrPaola Gorman Hematocrit (Bld) [Volume fraction] 34.5 % Critically low 42.0-54.0 [facility] Comment on above: Performed By: #### C BC ####[facility] [address] [place], [place] [address]DrPaola Gorman Hemoglobin (Bld) [Mass/Vol] 10.2 g/dL Critically low 14.0-18.0 [facility] Comment on above: Performed By: #### C BC ####[facility] [address] [place], [place] [address]DrPaola Chavarriabenja Sherif IG # 0.03 10e3/ul Normal 0.00-0.03 [facility] Comment on above: Performed By: #### C BC ####[facility] [address] [address]DrPaola Balta Sherif IG % 0.4 % Normal 0.0-0.5 [facility] Comment on above: Performed By: #### C BC ####[facility] [address] [address]DrPaola Gorman LYMPH # 1.6 103/ul Normal 1.2-3.8 [facility] Comment on above: Performed By: #### C BC ####[facility] [address] [address]DrPaola Gorman Lymphocytes/100 WBC (Bld) 18.4 % Critically low 20.5-60.0 [facility] Comment on above: Performed By: #### C BC ####[facility] [address] [place], [place] [address]DrPaola Gorman MANUAL DIFF REQ NO Normal [facility] Comment on above: Performed By: #### C BC ####[facility] [address] [address]DrPaola Gorman MCH (RBC) [Entitic mass] 22.7 pg Critically low 25.9-34.0 [facility] Comment on above: Performed By: #### C BC ####[facility] [address] [address]DrPaola Gorman MCHC (RBC) [Mass/Vol] 29.6 g/dL Critically low 29.9-35.2 [facility] Comment on above: Performed By: #### C BC ####[facility] [address] [place], [place] [address]DrPaola Gorman MCV (RBC) [Entitic vol] 76.7 fL Critically low 80.0-94.0 [facility] Comment on above: Performed By: #### C BC ####[facility] [address] [place], [place] [address]DrPaola Gorman MONO # 0.9 103/ul Critically high 0.3-0.8 [facility] Comment on above: Performed By: #### C BC ####[facility] [address] [address]Dr. Balta Gormna Monocytes/100 WBC (Bld) 11.1 % Normal 1.7-12.0 [facility] Comment on above: Performed By: #### C BC ####[facility] [address] [address]Dr. Balta Gorman NEUT # 5.8 103/ul Normal 1.4-6.5 [facility] Comment on above: Performed By: #### C BC ####[facility] [address] [address]Dr. Balta Gorman Neutrophils/100 WBC (Bld) 68.5 % Normal 43.0-75.0 [facility] Comment on above: Performed By: #### C BC ####[facility] [address] [address]Dr. Balta Groman Platelet mean volume (Bld) [Entitic vol] 10.2 fL Normal 9.5-13.5 [facility] Comment on above: Performed By: #### C BC ####[facility] [address] [address]Dr. Balta Gorman PLT 285 103/ul Normal 150-450 [facility] Comment on above: Performed By: #### C BC ####[facility] [address] [address]Dr. Balta Gorman RBC 4.50 106/ul Critically low 4.70-6.10 [facility] Comment on above: Performed By: #### C BC ####[facility] [address] [address]Dr. Balta Gorman WBC 8.5 103/ul Normal 4.0-11.0 [facility] Comment on above: Performed By: #### C BC ####[facility] [address] [address]Dr. Balta Sherif POINT OF CARE GLUCOSEon 05-2 0-2022 Glucose [Mass/Vol] 209 mg/dL Critically high 74-106 [facility] Comment on above: Performed By: #### P OCGLUC #### [facility] [address] [address] [address] Balta Gorman PROF CHEM 8 (BAS METB)on Anion gap [Moles/Vol] 13.7 mmol/L Normal [facility] Comment on above: Performed By: #### B MP ####[facility] [address] [address]DrPaola Gorman Calcium [Mass/Vol] 8.1 mg/dL Critically low 8.5-10.1 [facility] Comment on above: Performed By: #### B MP ####[facility] [address] [place] [address]DrPaola Gorman Chloride [Moles/Vol] 105 mmol/L Normal 98-107 [facility] Comment on above: Performed By: #### B MP ####[facility] [address] [place] [address]DrPaola Gorman CO2 [Moles/Vol] 23.0 mmol/L Normal 21.0-32.0 [facility] Comment on above: Performed By: #### B MP ####[facility] [address] [place] [id number] Gorman Creatinine [Mass/Vol] 1.15 mg/dL Normal 0.70-1.30 [facility] Comment on above: Performed By: #### B MP ####[facility] [address] [place] [id number] Gorman EGFR-AF GUINEAN >60 Normal >=60 [facility] Comment on above: Performed By: #### B MP ####[facility] [address] [place] [id number] Gorman EGFR-NON AF GUINEAN >60 Normal >=60 [facility] Comment on above: Performed By: #### B MP ####[facility] Vlt[address]wlnsfb[address] [place] [id number] Gorman Glucose [Mass/Vol] 214 mg/dL Critically high 74-106 [facility] Comment on above: Performed By: #### B MP ####[facility] [address] [place] [address]Dr. Balta Gorman Potassium [Moles/Vol] 3.7 mmol/L Normal 3.5-5.1 [facility] Comment on above: Performed By: #### B MP ####[facility] [address] [address]Dr. Balta Gorman Sodium [Moles/Vol] 138 mmol/L Normal 136-145 [facility] Comment on above: Performed By: #### B MP ####[facility] [address] [place] [place] [address]Dr. Balta Gorman Urea nitrogen [Mass/Vol] 21.0 mg/dL Critically high 7.0-18.0 [facility] Comment on above: Performed By: #### B MP ####[facility] [address] [place] [address]Dr. Balta Gorman Urea nitrogen/Creatinine [Mass ratio] 18.3 mg/mg Normal [facility] Comment on above: Performed By: #### B MP ####[facility] Lxcrav[address] [place], [place] [address]Dr. Balta Gorman CBC AUTO DIFFon 03-23-2022 BASO # 0.1 103/ul Normal 0.0-0.1 [facility] Comment on above: Performed By: #### C VDTBH #### [facility] [address] [place] [address] Dr. Balta Gorman Basophils/100 WBC (Bld) 1.0 % Normal 0.2-2.0 [facility] Comment on above: Performed By: #### C VDTBH #### [facility] [address] [place] [address] Dr. Balta Gorman EO # 0.3 103/ul Normal 0.0-0.7 [facility] Comment on above: Performed By: #### C VDTBH #### [facility] [address] [place] [address] Dr. Balta Gorman Eosinophils/100 WBC (Bld) 4.5 % Normal 0.9-7.0 [facility] Comment on above: Performed By: #### C VDTBH #### [facility] [address] [place] [address] Dr. Balta Gorman Erythrocyte distribution width (RBC) [Ratio] 17.0 % Critically high 11.0-15.0 [facility] Comment on above: Performed By: #### C VDTBH #### [facility] [address] [place] [address] Dr. Balta Gorman Hematocrit (Bld) [Volume fraction] 35.7 % Critically low 42.0-54.0 [facility] Comment on above: Performed By: #### C VDTBH #### [facility] [address] [place] [address] Dr. Balta Gorman Hemoglobin (Bld) [Mass/Vol] 10.6 g/dL Critically low 14.0-18.0 [facility] Comment on above: Performed By: #### C VDTBH #### [facility] [address] [place] [address] Dr. Balta Gorman IG # 0.03 10e3/ul Normal 0.00-0.03 [facility] Comment on above: Performed By: #### C VDTBH #### [facility] [address] [place] [address] Dr. Balta Gorman IG % 0.4 % Normal 0.0-0.5 [facility] Comment on above: Performed By: #### C VDTBH #### [facility] [address] [place] [address] Dr. Balta Gorman LYMPH # 1.8 103/ul Normal 1.2-3.8 [facility] Comment on above: Performed By: #### C VDTBH #### [facility] [address] [place] [address] Dr. Balta Gorman Lymphocytes/100 WBC (Bld) 25.6 % Normal 20.5-60.0 [facility] Comment on above: Performed By: #### C VDTBH #### [facility] [address] [place] [address] Dr. Balta Gorman MANUAL DIFF REQ NO Normal [facility] Comment on above: Performed By: #### C VDTBH #### [facility] [address] [place] [address] Dr. Balta Gorman MCH (RBC) [Entitic mass] 22.8 pg Critically low 25.9-34.0 [facility] Comment on above: Performed By: #### C VDTBH #### [facility] [address] [place] [address] Dr. Balta Gorman MCHC (RBC) [Mass/Vol] 29.7 g/dL Critically low 29.9-35.2 [facility] Comment on above: Performed By: #### C VDTBH #### [facility] [address] [place] [address] Dr. Balta Gorman MCV (RBC) [Entitic vol] 76.9 fL Critically low 80.0-94.0 [facility] Comment on above: Performed By: #### C VDTBH #### [facility] [address] [place] [address] Dr. Balta Gorman MONO # 1.0 103/ul Critically high 0.3-0.8 [facility] Comment on above: Performed By: #### C VDTBH #### [facility] [address] [place] [address] Dr. Balta Gorman Monocytes/100 WBC (Bld) 13.8 % Critically high 1.7-12.0 [facility] Comment on above: Performed By: #### C VDTBH #### [facility] [address] [place] [address] Dr. Balta Gorman NEUT # 3.9 103/ul Normal 1.4-6.5 [facility] Comment on above: Performed By: #### C VDTBH #### [facility] [address] [place] [address] Dr. Balta Gorman Neutrophils/100 WBC (Bld) 54.7 % Normal 43.0-75.0 [facility] Comment on above: Performed By: #### C VDTBH #### [facility] [address] [address] [address] Balta Gorman Platelet mean volume (Bld) [Entitic vol] 10.5 fL Normal 9.5-13.5 [facility] Comment on above: Performed By: #### C VDTBH #### [facility] [address] [address] [address] Balta Gorman PLT 271 103/ul Normal 150-450 [facility] Comment on above: Performed By: #### C VDTBH #### [facility] [address] [address] [address] Balta Gorman RBC 4.64 106/ul Critically low 4.70-6.10 [facility] Comment on above: Performed By: #### C VDTBH #### [facility] [address] [address] [address] Balta Gorman WBC 7.2 103/ul Normal 4.0-11.0 [facility] Comment on above: Performed By: #### C VDTBH #### [facility] [address] [address] [address] Balta Gorman GLYCOHEMOGLOBIN A1Con 2021 ADA RECOMMENDATION SEE BELOW Normal [facility] Comment on above: Result Comment: ADA RECOMMENDED LIMIT 4.0 - 6.0 ADA THERAPEUTIC TARGET < 7.0 ACTION SUGGESTED > 7.0 Performed By: #### A 1C #### [facility] [address] [address] [address] Balta Gorman Glucose [Mass/Vol] 177 mg/dL Normal [facility] Comment on above: Performed By: #### A 1C #### [facility] [address] [address] [address] Balta Gorman HbA1c (Bld) [Mass fraction] 7.8 % Critically high 4.5-6.2 [facility] Comment on above: Performed By: #### A 1C #### [facility] [address] [address] [address] Balta Gorman GRAM STAINon 03-23-2022 COMMENTS NO ORGANISMS OBSERVED Normal [facility] Comment on above: Performed By: #### A FB #### [facility] [address] [address] [address] Balta Gorman DIPHTHEROIDS Normal [facility] Comment on above: Performed By: #### A FB #### [facility] [address] [place] [address] Dr. Balta Gorman EPITHELIALS Normal [facility] Comment on above: Performed By: #### A FB #### [facility] [address] [place] [address] Dr. Balta Gorman FUNGAL ELEMENTS Normal [facility] Comment on above: Performed By: #### A FB #### [facility] [address] [place] [address] Dr. Balta Gorman GRAM NEG BACILLI [facility] Comment on above: Performed By: #### A FB #### [facility] [address] [place] [address] Dr. Balta CAVAZOS NEG DIPPLOCOCCI [facility] Comment on above: Performed By: #### A FB #### [facility] [address] [address] [address] Balta Gorman GRAM POS BACILLI [facility] Comment on above: Performed By: #### A FB #### [facility] [address] [place] [address] Dr. Balta Gorman GRAM POSITIVE COCCI Normal [facility] Comment on above: Performed By: #### A FB #### [facility] [address] [address] [address] Balta Gorman GRAM STAIN SOURCE r. 2nd toe bone- pos t irrigation Normal [facility] Comment on above: Performed By: #### A FB #### [facility] [address] [place] [address] Dr. Balta Gorman GS_DIPTH [facility] Comment on above: Performed By: #### A FB #### [facility] [address] [place] [address] Dr. Balta Gorman WBC RARE Normal [facility] Comment on above: Performed By: #### A FB #### [facility] [address] [address] [address] Balta Gorman POINT OF CARE GLUCOSEon 03-05 Glucose [Mass/Vol] 209 mg/dL Critically high [address] [place] [address] Comment on above: Performed By: #### A FB #### [facility] [address] [address] [address] Balta Gorman Glucose [Mass/Vol] 203 mg/dL Critically high [address] [place] [address] Comment on above: Performed By: #### P OCGLUC #### [facility] [address] [address] [address] Balta Gorman Glucose [Mass/Vol] 119 mg/dL Critically high [address] [place] [address] Comment on above: Performed By: #### A FB #### [facility] [address] [place] [address] Dr. Balta Gorman Glucose [Mass/Vol] 115 mg/dL Critically high [address] [place] [address] Comment on above: Performed By: #### A FB #### [facility] [address] [address] [address] Balta Gorman PROF CHEM 8 (BAS METB)on Anion gap [Moles/Vol] 12.2 mmol/L Normal [facility] Comment on above: Performed By: #### A FB #### [facility] [address] [address] [address] Balta Gorman Calcium [Mass/Vol] 8.1 mg/dL Critically low 8.5-10.1 [facility] Comment on above: Performed By: #### A FB #### [facility] [address] [address] [address] Balta Gorman Chloride [Moles/Vol] 104 mmol/L Normal 98-107 [facility] Comment on above: Performed By: #### A FB #### [facility] [address] [place] [address] Dr. Balta Gorman CO2 [Moles/Vol] 24.5 mmol/L Normal 21.0-32.0 [facility] Comment on above: Performed By: #### A FB #### [facility] [address] [address] [address] Balta Gorman Creatinine [Mass/Vol] 1.06 mg/dL Normal 0.70-1.30 [facility] Comment on above: Performed By: #### A FB #### [facility] [address] [place] [address] Dr. Balta Gorman EGFR-AF GUINEAN >60 Normal >=60 [facility] Comment on above: Performed By: #### A FB #### [facility] [address] [place] [address] Dr. Balta Gorman EGFR-NON AF GUINEAN >60 Normal >=60 [facility] Comment on above: Performed By: #### A FB #### [facility] [address] [place] [address] Dr. Balta Gorman Glucose [Mass/Vol] 110 mg/dL Critically high 74-106 [facility] Comment on above: Performed By: #### A FB #### [facility] [address] [place] [address] Dr. Balta Gorman Potassium [Moles/Vol] 3.7 mmol/L Normal 3.5-5.1 [facility] Comment on above: Performed By: #### A FB #### [facility] [address] [place] [address] Dr. Balta Gorman Sodium [Moles/Vol] 137 mmol/L Normal 136-145 [facility] Comment on above: Performed By: #### A FB #### [facility] [address] [place] [address] Dr. Balta Gorman Urea nitrogen [Mass/Vol] 19.0 mg/dL Critically high 7.0-18.0 [facility] Comment on above: Performed By: #### A FB #### [facility] [address] [place] [address] Dr. Balta Gorman Urea nitrogen/Creatinine [Mass ratio] 17.9 mg/mg Normal [facility] Comment on above: Performed By: #### A FB #### [facility] [address] [address] [address] Balta Gorman PROTIMEon 03-23-2022 INR Coag (PPP) [Relative time] 1.06 {INR} Normal [facility] Comment on above: Performed By: #### P TT, PT ####[facility] [address] [place], [place] [address]DrPaola Gorman INR GUIDELINES SEE BELOW Normal [facility] Comment on above: Result Comment: PORSCHE RED INR: 2.0 - 3.0 CONDITIONS NOT LISTED BELOW 2.5 - 3.5 FOR PROSTHETIC HEART VALVE REPLACEMENT 2.5 - 3.5 RECURRENT THROMBOSIS Performed By: #### P TT, PT ####[facility] Cltid[address] [place], [place] [address]DrPaola Gorman PT Coag (PPP) [Time] 11.4 s Normal 9.0-11.6 [facility] Comment on above: Performed By: #### P TT, PT ####[facility] [address] [place], [place] [address]DrPaola Gorman PTTon 03-23-2022 aPTT Coag (Bld) [Time] 33.8 s Normal 22.3-36.2 [facility] Comment on above: Performed By: #### P TT, PT ####[facility] Sly[address]axcd[address] [place], [place] [address]DrPaola Gorman CBC AUTO DIFFon 03-22-2022 BASO # 0.1 103/ul Normal 0.0-0.1 [facility] Comment on above: Performed By: #### C BC ####[facility] [address]vrupoiryu[address] [place], [place] [address]DrPaola Gorman Basophils/100 WBC (Bld) 0.9 % Normal 0.2-2.0 [facility] Comment on above: Performed By: #### C BC ####[facility] [address] [place], [place] [address]DrPaola Gorman EO # 0.3 103/ul Normal 0.0-0.7 [facility] Comment on above: Performed By: #### C BC ####[facility] [address] [place] [address]Dr. Balta Gorman Eosinophils/100 WBC (Bld) 3.2 % Normal 0.9-7.0 [facility] Comment on above: Performed By: #### C BC ####[facility] U[address] [place], [place] [address]Dr. Balta Gorman Erythrocyte distribution width (RBC) [Ratio] 17.5 % Critically high 11.0-15.0 [facility] Comment on above: Performed By: #### C BC ####[facility] [address]arke[address] [place], [place] [address]Dr. Balta Gorman Hematocrit (Bld) [Volume fraction] 39.5 % Critically low 42.0-54.0 [facility] Comment on above: Performed By: #### C BC ####[facility] Dog[address]yar[address] [place], [place] [address]Dr. Balta Gorman Hemoglobin (Bld) [Mass/Vol] 11.6 g/dL Critically low 14.0-18.0 [facility] Comment on above: Performed By: #### C BC ####[facility] [address] [place], [place] [address]Dr. Balta Gorman IG # 0.03 10e3/ul Normal 0.00-0.03 [facility] Comment on above: Performed By: #### C BC ####[facility] K[address]ch[address] [place], [place] [address]Dr. Balta Gorman IG % 0.3 % Normal 0.0-0.5 [facility] Comment on above: Performed By: #### C BC ####[facility] Lnvlnvpdnv[address] [place], [place] [address]Dr. Balta Gorman LYMPH # 1.6 103/ul Normal 1.2-3.8 [facility] Comment on above: Performed By: #### C BC ####[facility] [address]fdmrsmtq[address] [place], [place] [address]Dr. Balta Gorman Lymphocytes/100 WBC (Bld) 17.7 % Critically low 20.5-60.0 [facility] Comment on above: Performed By: #### C BC ####[facility] [address] [place] [id number]. Balta Gorman MANUAL DIFF REQ NO Normal [facility] Comment on above: Performed By: #### C BC ####[facility] Pbexejjtim[address] [place] [id number]. Balta Gorman MCH (RBC) [Entitic mass] 22.5 pg Critically low 25.9-34.0 [facility] Comment on above: Performed By: #### C BC ####[facility] Lytocrvcep[address] [place], [place] [address]Dr. Balta Gorman MCHC (RBC) [Mass/Vol] 29.4 g/dL Critically low 29.9-35.2 [facility] Comment on above: Performed By: #### C BC ####[facility] [address] [place] [address]Dr. Balta Gorman MCV (RBC) [Entitic vol] 76.6 fL Critically low 80.0-94.0 [facility] Comment on above: Performed By: #### C BC ####[facility] [address] [place], [place] [address]Dr. Balta Gorman MONO # 1.0 103/ul Critically high 0.3-0.8 [facility] Comment on above: Performed By: #### C BC ####[facility] [address] [place] [address]Dr. Balta Gorman Monocytes/100 WBC (Bld) 11.0 % Normal 1.7-12.0 [facility] Comment on above: Performed By: #### C BC ####[facility] [address] [place], [place] [address]Dr. Balta Gorman NEUT # 5.9 103/ul Normal 1.4-6.5 [facility] Comment on above: Performed By: #### C BC ####[facility] [address] [place], [place] [address]Dr. Balta Gorman Neutrophils/100 WBC (Bld) 66.9 % Normal 43.0-75.0 [facility] Comment on above: Performed By: #### C BC ####[facility] [address] [place], [place] [address]Ul. Balta Gorman Platelet mean volume (Bld) [Entitic vol] 10.4 fL Normal 9.5-13.5 [facility] Comment on above: Performed By: #### C BC ####[facility] [address] [place], [place] [address]Kc. Balta Gorman PLT 319 103/ul Normal 150-450 [facility] Comment on above: Performed By: #### C BC ####[facility] [address]sensjepus[address] [place], [place] [address]Bv. Balta Gorman RBC 5.16 106/ul Normal 4.70-6.10 [facility] Comment on above: Result Comment: SLIG HT HYPOCHROMIA Performed By: #### C BC ####[facility] [address]ws[address] [place] [id number]. Balta Gorman WBC 8.8 103/ul Normal 4.0-11.0 [facility] Comment on above: Performed By: #### C BC ####[facility] [address]frol[address] [place] [id number]. Balta Gorman CULTURE BLOODon 03-22-2022 Microscopic examination of blood, culture Culture Observations: No growth at 5 days. Isolate 1 BC_BA_NA Normal [facility] Comment on above: Performed By: #### C VDTB #### [facility] [address] [address] [address] Balta Gorman Microscopic examination of blood, culture Culture Observations: No growth at 5 days. Isolate 1 BC_BA_NA Normal [facility] Comment on above: Performed By: #### C VDTBH #### [facility] [address] [address] [address] Balta Gorman [facility]-05 SARS-CoV-2 (COVID-19) RNA DERICK+probe Ql (Unsp spec) Not detected Normal NOT DETECTED [facility] Comment on above: Result Comment: When diagnostic testing is negative, the possibility of a false negative should be considered in the context of a patient's recent exposures and the presence of clinical signs and symptoms consistent with SARS-CoV-2. This test is not yet approved or cleared by the [place] Food and Drug Administration (FDA). This test was developed by [employer], [place], [place]. The performance characteristics of this test were validated by [facility]. The results are not intended to be used as the sole means for clinical diagnosis or patient management decisions. [facility] is authorized under Clinical Laboratory Improvement Amendments [...] for this test is supported by the Delinquency Prevention Officer of Health and Human Service's declaration that [...] used). Performed By: #### C VDTBH #### [facility] [address] [address] [address] Balta Gorman POINT OF CARE GLUCOSEon 03-05 Glucose [Mass/Vol] 121 mg/dL Critically high 74-106 [facility] Comment on above: Performed By: #### P OCGLUC #### [facility] [address] [place] [address] Dr. Balta Gorman Glucose [Mass/Vol] 109 mg/dL Critically high 74-106 [facility] Comment on above: Performed By: #### P OCGLUC #### [facility] [address] [address] [address] Balta Gorman PROF 14(COMP METB)on 022 Albumin [Mass/Vol] 3.5 g/dL Normal 3.4-5.0 [facility] Comment on above: Performed By: #### C MP ####[facility] [address] [place] [address]Dr. Balta Sherif Albumin/Globulin [Mass ratio] 0.8 {ratio} Normal [facility] Comment on above: Performed By: #### C MP ####[facility] [address] [address]Dr. Balta Sherif ALP [Catalytic activity/Vol] 78 U/L Normal 46-116 [facility] Comment on above: Performed By: #### C MP ####[facility] [address] [place], [place] [address]Dr. Balta Sherif ALT [Catalytic activity/Vol] 24 U/L Normal 16-63 [facility] Comment on above: Performed By: #### C MP ####[facility] Che[address] [place], [place] [address]Dr. Aurabenja Sherif Anion gap [Moles/Vol] 11.9 mmol/L Normal [facility] Comment on above: Performed By: #### C MP ####[facility] Az[address]cf[address]lt[address] [place], [place] [address]Dr. Balta Sherif AST [Catalytic activity/Vol] 16 U/L Normal 15-37 [facility] Comment on above: Performed By: #### C MP ####[facility] [address] [place], [place] [address]Dr. Balta Gorman Bilirubin [Mass/Vol] 0.6 mg/dL Normal 0.2-1.0 [facility] Comment on above: Performed By: #### C MP ####[facility] R[address] [place], [place] [address]Dr. Balta Gorman Calcium [Mass/Vol] 8.7 mg/dL Normal 8.5-10.1 [facility] Comment on above: Performed By: #### C MP ####[facility] [address]so[address]ocx[address] [place], [place] [address]Dr. Balta Gorman Chloride [Moles/Vol] 104 mmol/L Normal 98-107 [facility] Comment on above: Performed By: #### C MP ####[facility] [address] [place], [place] [address]Dr. Balta Gorman CO2 [Moles/Vol] 28.1 mmol/L Normal 21.0-32.0 [facility] Comment on above: Performed By: #### C MP ####[facility] [address] [place] [address]Dr. Balta Sherif Creatinine [Mass/Vol] 1.24 mg/dL Normal 0.70-1.30 [facility] Comment on above: Performed By: #### C MP ####[facility] [address] [place] [id number]. Balta Sherif EGFR-AF GUINEAN >60 Normal >=60 [facility] Comment on above: Performed By: #### C MP ####[facility] [address] [place] [id number]. Balta Gorman EGFR-NON AF GUINEAN 58 mL/min/1.73m2 Critically low >=60 [facility] Comment on above: Performed By: #### C MP ####[facility] [address] [place] [address]Dr. Balta Gorman Globulin (S) [Mass/Vol] 4.4 g/dL Normal [facility] Comment on above: Performed By: #### C MP ####[facility] [address] [place] [id number]. Balta Gorman Glucose [Mass/Vol] 205 mg/dL Critically high 74-106 [facility] Comment on above: Performed By: #### C MP ####[facility] [address] [place] [id number]. Balta Gorman Potassium [Moles/Vol] 4.0 mmol/L Normal 3.5-5.1 [facility] Comment on above: Performed By: #### C MP ####[facility] Ilmcffiydi[address] [place] [id number]. Balta Gorman Protein [Mass/Vol] 7.9 g/dL Normal 6.4-8.2 [facility] Comment on above: Performed By: #### C MP ####[facility] U[address] [place] [id number]. Balta Gorman Sodium [Moles/Vol] 140 mmol/L Normal 136-145 [facility] Comment on above: Performed By: #### C MP ####[facility] Hbqdssjugj[address] [place], [place] [address]Dr. Balta Gorman Urea nitrogen [Mass/Vol] 22.0 mg/dL Critically high 7.0-18.0 [facility] Comment on above: Performed By: #### C MP ####[facility] Nkswefxj[address] [place], [place] [address]Dr. Balta Gorman Urea nitrogen/Creatinine [Mass ratio] 17.7 mg/mg Normal [facility] Comment on above: Performed By: #### C MP ####[facility] Dmtuhmyene[address] [place], [place] [address]Dr. Balta Gorman UA (CLEAN/CATCH) FEED MILL MANAGER/MICRO I F IND.on 03-22-2022 Bilirubin Ql (U) Negative Normal NEGATIVE The [facility] Comment on above: Performed By: #### U ACSIND ####[facility] Fytcvtl[address] [place], [place] [address]Dr. Balta Gorman Clarity (U) CLEAR Normal CLEAR [facility] Comment on above: Performed By: #### U ACSIND ####[facility] Oy[address] [place], [place] [address]Dr. Balta Gorman Color (U) LT. YELLOW Normal YELLOW [facility] Comment on above: Performed By: #### U ACSIND ####[facility] Grlispngsd[address] [place], [place] [address]Dr. Balta Gorman Glucose Ql (U) >1000 Abnormal NEGATIVE The [facility] Comment on above: Performed By: #### U ACSIND ####[facility] Mcojtdusdw[address] [place], [place] [address]Dr. Balta Gorman Hemoglobin Ql (U) Negative Normal NEGATIVE The [facility] Comment on above: Performed By: #### U ACSIND ####[facility] Tbcektscal[address] [place], [place] [address]Dr. Balta Gorman Ketones Ql (U) Negative Normal NEGATIVE The [facility] Comment on above: Performed By: #### U ACSIND ####[facility] [address] [place] [address]Dr. Balta Gorman LEUKOCYTES Negative Normal NEGATIVE [facility] Comment on above: Performed By: #### U ACSIND ####[facility] [address] [place] [address]Dr. Balta Gorman Nitrite Ql (U) Negative Normal NEGATIVE The [facility] Comment on above: Performed By: #### U ACSIND ####[facility] [address] [place] [address]Dr. Balta Gorman pH (U) 6.0 [pH] Normal 5-9 [facility] Comment on above: Performed By: #### U ACSIND ####[facility] Dvydjrpf[address] [place], [place] [address]Dr. Balta Gorman SPEC GRAVITY 1.010 Normal 1.005-<=1.02 5 [facility] Comment on above: Performed By: #### U ACSIND ####[facility] Bxtehlrdbu[address] [place], [place] [address]Dr. Balta Gorman UA PROTEIN Negative Normal NEGATIVE/ TRACE [facility] Comment on above: Performed By: #### U ACSIND ####[facility] Syrjoqyoyb[address] [place], [place] [address]Dr. Balta Gorman UR MICRO IND NOT INDICATED Normal The [facility] Comment on above: Performed By: #### U ACSIND ####[facility] [address] [place] [address]Dr. Balta Gorman Urobilinogen Qn (U) 0.2 {Jose Luis'U}/dL Normal 0.2 - 1. 0 [facility] Comment on above: Performed By: #### U ACSIND ####[facility] Utofmkqdhn[address] [place], [place] [address]Dr. Balta Gorman XR FOOT RT MIN 3 [...] by: HELGA GOLDBERG Date: 2022-03-22 15:21 Normal [facility] Blood Urea Nitrogenon 2021 Urea nitrogen [Mass/Vol] 21 mg/dL Normal 07-28 [facility] Comment on above: Performed By: #### P P, LYTES, CBC, BUN, CREAT, LIPID #### [facility] [address] [id number] [facility] [...] developed and its performance characteristic determined by [facility] and validated at [facility]. This test has not been FDA [...] SARS Antigen by JOSE L PERFORMED BY: [place] [address] PATHOLOGIST NEWSPAPER JOURNALIST ERLIN GUPTA M.D. Normal [facility] Comment on above: Performed By: #### S OFIANEG, COVID-19 HERMINIO #### [address] Coagulation Profileon 2021 aPTT Coag (Bld) [Time] 30.4 s Normal 25.1-36.5 [facility] Comment on above: Result Comment: PERF ORMED BY: [place] [address] PATHOLOGIST NEWSPAPER JOURNALIST ERLIN GUPTA M.D. Performed By: #### P P, LYTES, CBC, BUN, CREAT, LIPID #### [address] INR Coag (PPP) [Relative time] 1.1 {INR} [facility] Comment on above: Result Comment: INR Therapeutic [...] P, LYTES, CBC, BUN, CREAT, LIPID #### [address] PT Coag (PPP) [Time] 12.7 s Normal 9.0-12.9 [facility] Comment on above: Performed By: #### P P, LYTES, CBC, BUN, CREAT, LIPID #### [address] Complete Blood Count Auto Di ffon 03-10-2022 Basophils (Bld) [#/Vol] 0.1 10*3/uL Normal 0.0-0.2 [facility] Comment on above: Result Comment: PERF ORMED BY: [place] [address] PATHOLOGIST NEWSPAPER JOURNALIST ERLIN GUPTA M.D. Performed By: #### P P, LYTES, CBC, BUN, CREAT, LIPID #### [address] Basophils/100 WBC (Bld) 1.6 % Normal . [facility] Comment on above: Performed By: #### P P, LYTES, CBC, BUN, CREAT, LIPID #### [address] Eosinophils (Bld) [#/Vol] 0.2 10*3/uL Normal 0.0-0.45 [facility] Comment on above: Performed By: #### P P, LYTES, CBC, BUN, CREAT, LIPID #### [address] Eosinophils/100 WBC (Bld) 3.4 % Normal . [facility] Comment on above: Performed By: #### P P, LYTES, CBC, BUN, CREAT, LIPID #### [address] Erythrocyte distribution width (RBC) [Ratio] 17.0 % High 12.0-14.8 [facility] Comment on above: Performed By: #### P P, LYTES, CBC, BUN, CREAT, LIPID #### [address] Hematocrit (Bld) [Volume fraction] 38.9 % Normal 38.8-50.0 [facility] Comment on above: Performed By: #### P P, LYTES, CBC, BUN, CREAT, LIPID #### [address] Hemoglobin (Bld) [Mass/Vol] 12.4 g/dL Low 13.0-17.0 [facility] Comment on above: Performed By: #### P P, LYTES, CBC, BUN, CREAT, LIPID #### [address] Lymphocytes (Bld) [#/Vol] 1.6 10*3/uL Normal 1.00-4.8 [facility] Comment on above: Performed By: #### P P, LYTES, CBC, BUN, CREAT, LIPID #### [address] Lymphocytes/100 WBC (Bld) 25.1 % Normal . [facility] Comment on above: Performed By: #### P P, LYTES, CBC, BUN, CREAT, LIPID #### [address] MCH (RBC) [Entitic mass] 22.6 pg Low 27.5-35.2 [facility] Comment on above: Performed By: #### P P, LYTES, CBC, BUN, CREAT, LIPID #### [address] MCV (RBC) [Entitic vol] 70.8 fL Low 83.5-101 [facility] Comment on above: Performed By: #### P P, LYTES, CBC, BUN, CREAT, LIPID #### [address] Mean Corpuscular HGB Conc 31.9 g/dL Low 32.5-35.6 [facility] Comment on above: Performed By: #### P P, LYTES, CBC, BUN, CREAT, LIPID #### [address] Monocytes (Bld) [#/Vol] 0.7 10*3/uL Normal 0.0-0.8 [facility] Comment on above: Performed By: #### P P, LYTES, CBC, BUN, CREAT, LIPID #### [address] [address] [place] Monocytes/100 WBC (Bld) 10.2 % Normal . [facility] Comment on above: Performed By: #### P P, LYTES, CBC, BUN, CREAT, LIPID #### [address] Neutrophils (Bld) [#/Vol] 3.8 10*3/uL Normal 1.8-7.7 [facility] Comment on above: Performed By: #### P P, LYTES, CBC, BUN, CREAT, LIPID #### [address] Neutrophils/100 WBC (Bld) 59.7 % Normal . [facility] Comment on above: Performed By: #### P P, LYTES, CBC, BUN, CREAT, LIPID #### [address] Nucleated RBC/100 WBC (Bld) [Ratio] 0.1 % Normal 0-0.5 [facility] Comment on above: Performed By: #### P P, LYTES, CBC, BUN, CREAT, LIPID #### [address] Platelet mean volume (Bld) [Entitic vol] 8.6 fL Normal 6.6-10.1 [facility] Comment on above: Performed By: #### P P, LYTES, CBC, BUN, CREAT, LIPID #### [place] [address] [place] Platelets (Bld) [#/Vol] 270 10*3/uL Normal 150-450 [facility] Comment on above: Performed By: #### P P, LYTES, CBC, BUN, CREAT, LIPID #### [place] [address] [place] RBC (Bld) [#/Vol] 5.49 10*6/uL Normal 3.90-5.60 [facility] Comment on above: Performed By: #### P P, LYTES, CBC, BUN, CREAT, LIPID #### [address] WBC (Bld) [#/Vol] 6.4 10*3/uL Normal 4.5-11.0 [facility] Comment on above: Performed By: #### P P, LYTES, CBC, BUN, CREAT, LIPID #### [address] Creatinineon 03-10-2022 Creatinine [Mass/Vol] 1.01 mg/dL Normal 0.64-1.27 [facility] Comment on above: Performed By: #### P P, LYTES, CBC, BUN, CREAT, LIPID #### [address] Estimated GFR ( Raegan > 60 Normal [facility] Comment on above: Result Comment: GFR estimated reference range: According to KDOQI guidelines, <60 ml/min/1.73m2 is sufficient to diagnose a patient with chronic kidney disease. Performed By: #### P P, LYTES, CBC, BUN, CREAT, LIPID #### [address] Estimated GFR (Non- Am > 60 Normal [facility] Comment on above: Performed By: #### P P, LYTES, CBC, BUN, CREAT, LIPID #### [address] ECG 12 lead ECGon 03-10-2022 ECG 12 lead ECG [facility] [place] [address] Electrocardiograph Report Signed Patient: Janice Ford Jr MR#: [id number] : 1955 Acct:[id number] Age/Sex: 67 / M ADM Date: 03/10/22 Loc: PS Room: Type: [facility] Attending Dr: Margaux Castillo MD Ordering Provider: [...] are now present Confirmed by [facility], ERIKA ([id number]) on 03/10/2022 10:04:07 AM Referred By: LATESHA CASTILLO Electronically Signed By:ERIKA OSBORNE MD [facility] Transcribed By: MUS Signed By Erika Osborne MD, FAC 03/10/22 1004 Normal [facility] Electrolyteson 03-10-2022 Chloride [Moles/Vol] 105 mmol/L Normal 95-114 [facility] Comment on above: Performed By: #### P P, LYTES, CBC, BUN, CREAT, LIPID #### [address] CO2 [Moles/Vol] 22.9 mmol/L Normal 22.0-30.0 [facility] Comment on above: Performed By: #### P P, LYTES, CBC, BUN, CREAT, LIPID #### [address] Potassium [Moles/Vol] 4.3 mmol/L Normal 3.5-5.1 [facility] Comment on above: Performed By: #### P P, LYTES, CBC, BUN, CREAT, LIPID #### [address] Sodium [Moles/Vol] 137 mmol/L Normal 136-146 [facility] Comment on above: Performed By: #### P P, LYTES, CBC, BUN, CREAT, LIPID #### [address] Laboratory - Chemistry and C hemistry - challengeon 03-10-2022 Cholesterol [Mass/Vol] 167\S\167 Normal 140-200 -[facility] 600 DO Work Phone: Comment on above: Chol less than 200 m g/dl low risk Chol 201-239 mg/dl borderline risk Chol 240 mg/dl and greater high risk Cholesterol in LDL [Mass/Vol] 80\S\80 Normal 0-100 [facility] 600 DO Work Phone: Comment on above: LDL ATP III CLASSIFI CATION LDL less than 100 mg/dL Optimal LDL 100-129 mg/dL Near or above optimal LDL 130-159 mg/dL Borderline high LDL 160-189 mg/dL High LDL greater than 189 mg/dL Very high Laboratory - Microbiology an d Antimicrobial susceptibilityon 03-10-2022 SARS-CoV-2 (COVID-19) RNA DERICK+probe Ql (Unsp spec) [facility] 600 DO Work Phone: Lipid Panelon 03-10-2022 Cholesterol [Mass/Vol] 167 mg/dL Normal 140-200 [facility] Comment on above: Result Comment: Chol less than 200 mg/dl low risk Chol 201-239 mg/dl borderline risk Chol 240 mg/dl and greater high risk Performed By: #### P P, LYTES, CBC, BUN, CREAT, LIPID #### [facility] [address] [place] [address] Cholesterol in HDL [Mass/Vol] 21 mg/dL Low 29-71 [facility] Comment on above: Result Comment: HDL CHOL ATP-III CLASSIFICATION Cardiovascular Risk HDL > or equal to 60 mg/dL LOW HDL < 40 mg/dL HIGH Performed By: #### P P, LYTES, CBC, BUN, CREAT, LIPID #### [facility] [address] Cholesterol.total/Ch olesterol in HDL [Mass ratio] 8.0 {ratio} Normal <5.0 [facility] Comment on above: Result Comment: PERF ORMED BY: [place] [address] PATHOLOGIST NEWSPAPER JOURNALIST ERLIN GUPTA M.D. Performed By: #### P P, LYTES, CBC, BUN, CREAT, LIPID #### [place] [address] [place] LDL Cholesterol,Calculat ed 80 mg/dL Normal 0-100 [facility] Comment on above: Result Comment: LDL ATP III CLASSIFICATION LDL less than 100 mg/dL Optimal LDL 100-129 mg/dL Near or above optimal LDL 130-159 mg/dL Borderline high LDL 160-189 mg/dL High LDL greater than 189 mg/dL Very high Performed By: #### P P, LYTES, CBC, BUN, CREAT, LIPID #### [facility] [address] Triglyceride w/Reflex 328 mg/dL High 35-149 [facility] Comment on above: Result Comment: TRIG ATP III CLASSIFICATION TRIG less than 150 mg/dL Normal TRIG 150-199 mg/dL Borderline high TRIG 200-500 mg/dL High TRIG greater than 500 mg/dL Very high Standard traceable to the Center for Disease Conrtrol and Prevention (CDC) test method. Performed By: #### P P, LYTES, CBC, BUN, CREAT, LIPID #### [facility] [address] VLDL CHOLESTEROL 65 mg/dL Normal [facility] Comment on above: Performed By: #### P P, LYTES, CBC, BUN, CREAT, LIPID #### [facility] [address] No Panel Informationon 03-10 0.1\S\0.1 Normal 0-0.5 [facility] [employer] 600 DO Work Phone: Comment on above: PERFORMED BY:[address] [id number] MEDICAL DIRECTORERLIN GUPTA M.D. 0.2\S\0.2 Normal 0.0-0.45 [facility] [employer] 600 DO Work Phone: 0.7\S\0.7 Normal 0.0-0.8 [facility] 600 DO Work Phone: 1.6\S\1.6 Normal . [facility] 600 DO Work Phone: 3.8\S\3.8 Normal 1.8-7.7 -[facility] 600 DO Work Phone: 3.4\S\3.4 Normal . [facility] 600 DO Work Phone: 10.2\S\10.2 Normal . [facility] 600 DO Work Phone: 25.1\S\25.1 Normal . [facility] 600 DO Work Phone: 59.7\S\59.7 Normal . [facility] 600 DO Work Phone: 8.6\S\8.6 Normal 6.6-10.1 -[facility] 600 DO Work Phone: 270\S\270 Normal 150-450 [facility] 600 DO Work Phone: 17.0\S\17.0 above high threshold 12.0-14.8 -[facility] 600 DO Work Phone: 31.9\S\31.9 below low threshold 32.5-35.6 -[facility] 600 DO Work Phone: 22.6\S\22.6 below low threshold 27.5-35.2 -[facility] 600 DO Work Phone: 70.8\S\70.8 below low threshold 83.5-101 -[facility] 600 DO Work Phone: 38.9\S\38.9 Normal 38.8-50.0 -[facility] 600 DO Work Phone: 12.4\S\12.4 below low threshold 13.0-17.0 -[facility] 600 DO Work Phone: 5.49\S\5.49 Normal 3.90-5.60 [facility] 600 DO Work Phone: 6.4\S\6.4 Normal 4.1-10.5 [facility] 600 DO Work Phone: 30.4\S\30.4 Normal 25.1-36.5 [facility] 600 DO Work Phone: Comment on above: PERFORMED BY:[facility] [place], [place] [phone] MEDICAL DIRECTORERLIN GUPTA M.D. 1.1\S\1.1 Normal [facility] 600 DO Work Phone: Comment on above: [...] valves: 3 - 4.5 12.7\S\12.7 Normal 9.0-12.9 [facility] 600 DO Work Phone: Negative Normal Negative [facility] 600 DO Work Phone: Comment on above: This is a duplicate Herminio SARS Antigen (JOSE L) result to be used for statistical tracking purpose only.PERFORMED BY:[facility] [place] [id number] MEDICAL DIRECTORERLIN GUPTA M.D. 22.9\S\22.9 Normal 22.0-30.0 [facility] 600 DO Work Phone: 105\S\105 Normal 95-114 [facility] 600 DO Work Phone: 4.3\S\4.3 Normal 3.5-5.1 [facility] [employer] DO Work Phone: 137\S\137 Normal 136-146 [facility] [employer] DO Work Phone: 21\S\21 below low threshold 29-71 [place] [address] DO Work Phone: Comment on above: HDL CHOL ATP-III CLA SSIFICATION Cardiovascular Risk HDL > or equal to 60 mg/dL LOW HDL < 40 mg/dL HIGH > 60 Normal [facility] [employer] DO Work Phone: Comment on above: GFR estimated refere nce range: According to KDOQI guidelines, <60 ml/min/1.73m2 is sufficient to diagnose a patient with chronic kidney disease. 1.01\S\1.01 Normal 0.64-1.27 [facility] [place] [address] DO Work Phone: 8.0\S\8.0 Normal <5.0 [facility] [employer] DO Work Phone: Comment on above: PERFORMED BY:[facility] [place], [place] [phone] MEDICAL DIRECTORERLIN GUPTA M.D. 65\S\65 Normal [facility] [employer] DO Work Phone: 328\S\328 above high threshold 35-149 [place] [address] DO Work Phone: Comment on above: TRIG ATP III CLASSIF ICATION TRIG less than 150 mg/dL Normal TRIG 150-199 mg/dL Borderline high TRIG 200-500 mg/dL High TRIG greater than 500 mg/dL Very high Standard traceable to the Center for Disease Conrtrol and Prevention (CDC) test method. Herminio Ag Negativeon 03-10-20 22 Herminio Ag Negative Negative Normal Negative [facility] Comment on above: Result Comment: This is a duplicate Herminio SARS Antigen (JOSE L) result to be used for statistical tracking purpose only. PERFORMED BY: [facility] [address] [place] [address] PATHOLOGIST NEWSPAPER JOURNALIST ERLIN GUPTA M.D. Performed By: #### S PADMINI CHAU-Roseanne HERMINIO #### [facility] [address] [id number] [facility] CARDIAC STRESS/REST INJE CTIONon 03-01-2022 [facility] CARDIAC STRESS/REST INJECTION Patient Name: JANICE FORD STUDY: MYOCARDIAL PERFUSION STRESS TEST WITH LEXISCAN Performing facility: [facility], [address] [place] [address], [address], [address] Provider: Helga Flores DO, [facility] PCP: Dr. Vineet Agrawal Supervising provider: Ratna Elias DO [facility] INDICATION: Angina CAD; S/P PTCA HISTORY: Gender: M; Age: 67 y/o ; Height: 185.42 cm; Weight: 106.340192 kg. High Cholesterol; CAD; Diabetes; HTN; Chest Pain; Denies smoking. Cardiac catheterization on 2021. PTCA on 2021. CABG on 1992. COMPARISON: Previous nuclear testing completed at [facility]. ACCESSION NUMBER(S): [id number]; [id number]; [id number] ORDERING CLINICIAN: HELGA FLORES TECHNIQUE: ONE DAY [...] Electronically signed by: MARGAUX CASTILLO MD Normal [facility] No Panel Informationon 03-01 Normal -[facility] [place] 250 DO Work Phone: Complete Blood Count with Au to Diffon 01-23-2022 Basophils (Bld) [#/Vol] 0.08 10*3/uL Normal 0.00-0.20 [facility] Comment on above: Performed By: #### C BCAD #### [facility] [address] [place], [place] [id number] Basophils/100 WBC (Bld) 1.1 % Normal [facility] Comment on above: Performed By: #### C BCAD #### [facility] [address] [place], [place] [id number] Eosinophils (Bld) [#/Vol] 0.29 10*3/uL Normal 0.02-0.50 [facility] Comment on above: Performed By: #### C BCAD #### [facility] [address] [place], [place] [id number] Eosinophils/100 WBC (Bld) 4.1 % Normal [facility] Comment on above: Performed By: #### C BCAD #### [facility] [address] [place], [place] [id number] Erythrocyte distribution width (RBC) [Ratio] 17.6 % High 11.0-15.0 [facility] Comment on above: Performed By: #### C BCAD #### [facility] [address] [place], [place] [id number] Hematocrit (Bld) [Volume fraction] 41.0 % Normal 38.5-50.0 [facility] Specialist Comment on above: Performed By: #### C BCAD #### [facility] [address] [place], [place] [id number] Hemoglobin (Bld) [Mass/Vol] 11.9 g/dL Low 13.0-17.1 [facility] Specialist Comment on above: Performed By: #### C BCAD #### [facility] [address] [place], [place] [id number] Lymphocytes (Bld) [#/Vol] 1.8 10*3/uL Normal 0.9-3.9 [facility] Specialist Comment on above: Performed By: #### C BCAD #### [facility] [address] [place], [place] [id number] Lymphocytes/100 WBC (Bld) 25.1 % Normal [facility] Specialist Comment on above: Performed By: #### C BCAD #### [facility] [address] [place], [place] [id number] MCH (RBC) [Entitic mass] 21.9 pg Low 27.0-33.0 [facility] Specialist Comment on above: Performed By: #### C BCAD #### [facility] [address] [place], [place] [id number] MCHC (RBC) [Mass/Vol] 29.0 g/dL Low 32.0-36.0 [facility] Specialist Comment on above: Performed By: #### C BCAD #### [facility] [address] [place], [place] [id number] MCV (RBC) [Entitic vol] 76 fL Low 80-100 [facility] Specialist Comment on above: Performed By: #### C BCAD #### [facility] [address] [place], [place] [id number] Monocytes (Bld) [#/Vol] 0.7 10*3/uL Normal 0.2-0.9 [facility] Specialist Comment on above: Performed By: #### C BCAD #### [facility] [address] [place], [place] [id number] Monocytes/100 WBC (Bld) 9.3 % Normal [facility] Comment on above: Performed By: #### C BCAD #### [facility] [address] [place], [place] [id number] Neutrophils (Bld) [#/Vol] 4.3 10*3/uL Normal 1.5-7.8 [facility] Comment on above: Performed By: #### C BCAD #### [facility] [address] [place], [place] [id number] Neutrophils/100 WBC (Bld) 60.0 % Normal [facility] Comment on above: Performed By: #### C BCAD #### [facility] [address] [place], [place] [id number] Platelet mean volume (Bld) [Entitic vol] 10.50 fL Normal 7.50-12.50 [facility] Comment on above: Performed By: #### C BCAD #### [facility] [address] [place], [place] [id number] Platelets (Bld) [#/Vol] 306 10*3/uL Normal 140-400 [facility] Comment on above: Performed By: #### C BCAD #### [facility] [address] [place], [place] [id number] RBC (Bld) [#/Vol] 5.43 10*6/uL Normal 4.20-5.80 [facility] Comment on above: Performed By: #### C BCAD #### [facility] [address] [place], [place] [id number] RDW-SD 46.0 fL Normal 37.0-50.0 [facility] Comment on above: Performed By: #### C BCAD #### [facility] [address] [place], [place] [id number] WBC (Bld) [#/Vol] 7.1 10*3/uL Normal 3.8-11.0 [facility] Comment on above: Performed By: #### C BCAD #### [facility] [address] [place], [place] [id number] Hemoglobin A1Con 01-23-2022 EAG 182.90 Normal [facility] Director Telemetry Comment on above: Performed By: #### A 1C #### [facility] [address] [place], [place] [id number] HbA1c (Bld) [Mass fraction] 8.0 % High 4.0-6.0 [facility] Director Telemetry Comment on above: Performed By: #### A 1C #### [facility] [address] [place], [place] [id number] Lipid Panelon 01-23-2022 Cholesterol [Mass/Vol] 177 mg/dL Normal 125-200 [facility] Specialist Comment on above: Result Comment: Low risk < 200mg/dL Borderline risk 201-239 mg/dl High risk > or equal to 240 Performed By: #### L IPD #### [facility] [address], [place] [id number] Cholesterol in HDL [Mass/Vol] 25 mg/dL Low >40 [facility] Director Telemetry Comment on above: Result Comment: High Cardiovascular Risk HDL <40 mg/dL Low Cardiovascular Risk HDL > or equal to 60 mg/dl Performed By: #### L IPD #### [facility] [address], [place] [id number] Cholesterol in LDL [Mass/Vol] 83 mg/dL Normal [facility] Specialist Comment on above: Result Comment: LDL ATP III CLASSIFICATION LDL less than 100 mg/dl Optimal LDL 100-129 mg/dl Near or above optimal LDL 130-159 Borderline high LDL 160-189 High LDL greater than 189 mg/dl Very High Performed By: #### L IPD #### [facility] [address], [place] [id number] Cholesterol in VLDL [Mass/Vol] 69 mg/dL Normal [facility] Specialist Comment on above: Performed By: #### L IPD #### [facility] [address], [place] [id number] Cholesterol.total/Ch olesterol in HDL [Mass ratio] 7 {ratio} Normal [facility] Director Telemetry Comment on above: Performed By: #### L IPD #### [facility] [address], [place] [id number] Triglyceride [Mass/Vol] 343 mg/dL High 30-150 [facility] Director Telemetry Comment on above: Result Comment: TRIG ATPIII CLASSIFICATIONS TRIG less than 150 mg/dl Normal TRIG 150-199 mg/dl Borderline High TRIG 200-500 mg/dl High TRIG greather than 500 mg/dl Very High Performed By: #### L IPD #### [facility] [address], [place] [id number] PSA SCREEN (MEDICARE)on 01-04 TPSA 0.405 ng/mL Normal <4.000 [facility] Director Telemetry Comment on above: Result Comment: PSA Test Method: ECLIA/Joseph e 601 Performed By: #### P SA MC #### [facility] [address], [place] [id number] Tobacco Screening.on 022 Fall risk assessment a) No falls within the last year [facility] DO Work Phone: Tobacco use status CPHS b) No [place] [address] DO Work Phone: Laboratory - Chemistry and C hemistry - challengeon 11-07-2021 Cholesterol [Mass/Vol] 183\S\183 Normal 140-200 [place] [address] DO Work Phone: Comment on above: Chol less than 200 m g/dl low risk Chol 201-239 mg/dl borderline risk Chol 240 mg/dl and greater high risk Cholesterol in LDL [Mass/Vol] 97\S\97 Normal 0-100 [place] [address] DO Work Phone: Comment on above: LDL ATP III CLASSIFI CATION LDL less than 100 mg/dL Optimal LDL 100-129 mg/dL Near or above optimal LDL 130-159 mg/dL Borderline high LDL 160-189 mg/dL High LDL greater than 189 mg/dL Very high Laboratory - Microbiology an d Antimicrobial susceptibilityon 11-07-2021 SARS-CoV-2 (COVID-19) RNA DERICK+probe Ql (Unsp spec) [facility] [employer] DO Work Phone: No Panel Informationon 11-07 56.2\S\56.2 Normal . [place] [address] DO Work Phone: 8.5\S\8.5 Normal 6.6-10.1 [facility] [address] DO Work Phone: 279\S\279 Normal 150-450 [facility] 250 DO Work Phone: 16.0\S\16.0 above high threshold 12.0-14.8 [facility] [address] DO Work Phone: 31.3\S\31.3 below low threshold 32.5-35.6 [facility] [address] DO Work Phone: 22.7\S\22.7 below low threshold 27.5-35.2 -[facility] [facility] DO Work Phone: 3.5\S\3.5 Normal 1.8-7.7 [facility] 250 DO Work Phone: 0.1\S\0.1 Normal 0.0-0.2 [facility] [address] DO Work Phone: Comment on above: PERFORMED BY:[facility] [place], [place] [id number] MEDICAL DIRECTORERLIN GUPTA M.D. 1.4\S\1.4 Normal . [facility] [address] DO Work Phone: 4.0\S\4.0 Normal . [facility] [address] DO Work Phone: 10.2\S\10.2 Normal . [facility] [address] DO Work Phone: 28.2\S\28.2 Normal . [facility] [facility] DO Work Phone: 0.2\S\0.2 Normal 0.0-0.45 [facility] [address] DO Work Phone: 0.6\S\0.6 Normal 0.0-0.8 [facility] 250 DO Work Phone: 1.7\S\1.7 Normal 1.00-4.8 [facility] [address] DO Work Phone: 72.3\S\72.3 below low threshold 83.5-101 [facility] 250 DO Work Phone: 39.8\S\39.8 Normal 38.8-50.0 [facility] [facility] DO Work Phone: 12.5\S\12.5 below low threshold 13.0-17.0 [facility] [address] DO Work Phone: 5.50\S\5.50 Normal 3.90-5.60 [facility] 250 DO Work Phone: 6.2\S\6.2 Normal 4.1-10.5 [facility] 250 DO Work Phone: 34.4\S\34.4 Normal 25.1-36.5 [facility] 250 DO Work Phone: Comment on above: PERFORMED BY:[place] [id number] [address] [place], [place] [phone] MEDICAL DIRECTORERLIN GUPTA M.D. 1.1\S\1.1 [facility] Work Phone: Comment on above: [...] valves: 3 - 4.5 12.2\S\12.2 Normal 9.0-12.9 [facility] [facility] DO Work Phone: Negative Normal Negative [facility] [address] DO Work Phone: Comment on above: This is a duplicate Herminio SARS Antigen (JOSE L) result to be used for statistical tracking purpose only.PERFORMED BY:[facility] [place] [id number] MEDICAL DIRECTORERLIN GUPTA M.D. 24.2\S\24.2 Normal 22.0-30.0 -[facility] [address] DO Work Phone: 101\S\101 Normal 95-114 -[facility] [address] DO Work Phone: 4.5\S\4.5 Normal 3.5-5.1 -[facility] [address] DO Work Phone: 139\S\139 Normal 136-146 -[facility] [address] DO Work Phone: 23\S\23 Normal 9-23 -[facility] [address] DO Work Phone: > 60 Normal -[facility] [address] DO Work Phone: Comment on above: GFR estimated refere nce range: According to KDOQI guidelines, <60 ml/min/1.73m2 is sufficient to diagnose a patient with chronic kidney disease. 1.14\S\1.14 Normal 0.64-1.27 [facility] [address] DO Work Phone: 9.2\S\9.2 Normal <5.0 [facility] [address] DO Work Phone: Comment on above: PERFORMED BY:[facility] [place] [id number] MEDICAL DIRECTORERLIN GUPTA M.D. 66\S\65 Normal [facility] [address] DO Work Phone: 329\S\329 above high threshold 35-149 -[facility] [address] DO Work Phone: Comment on above: TRIG ATP III CLASSIF ICATION TRIG less than 150 mg/dL Normal TRIG 150-199 mg/dL Borderline high TRIG 200-500 mg/dL High TRIG greater than 500 mg/dL Very high Standard traceable to the Center for Disease Conrtrol and Prevention (CDC) test method. 20\S\20 below low threshold 29-71 -[facility] [address] DO Work Phone: Comment on above: HDL CHOL ATP-III CLA SSIFICATION Cardiovascular Risk HDL > or equal to 60 mg/dL LOW HDL < 40 mg/dL HIGH [facility] CARDIAC STRESS/REST INJE CTIONon 10-12-2021 [facility] CARDIAC STRESS/REST INJECTION Patient Name: JANICE FORD STUDY: MYOCARDIAL PERFUSION STRESS TEST WITH LEXISCAN Performing facility: [facility], [address] [place] [address], [address], [address] Provider: Helga Flores DO, FACC PCP: Dr. Vineet Agrawal Supervising provider: Erika Osborne MD, FACC INDICATION: CAD; HISTORY: Gender: M; Age: 66 y/o ; Height: 185.42 cm; Weight: 106.446517 kg. High Cholesterol; CAD; Diabetes; HTN; Chest Pain; Denies smoking. Cardiac catheterization on 2014. PTCA on 2014. COMPARISON: Previous nuclear testing completed [id number] at [facility]. ACCESSION NUMBER(S): [id number]; [id number]; [id number] ORDERING CLINICIAN: HELGA FLORES TECHNIQUE: ONE DAY [...] Electronically signed by: ERIKA OSBORNE MD Normal [facility] No Panel Informationon 10-12 Normal [facility] 600 DO Work Phone: Quick Strepon 10-10-2021 S. pyogenes Org specific cx Ql (Throat) Negative [facility] Other Quick Strep [facility] [employer] Other Tobacco Screening.on 021 Fall risk assessment a) No falls within the last year [facility] [address] DO Work Phone: Tobacco use status CPHS b) No [facility] [place] [address] DO Work Phone: Vital Signs Date Time Vital Sign Value Performing Clinician Facility 02-23-2025 09:20-0400 Diastolic blood pressure 86 mm[Hg] [address] 02-23-2025 09:20-0400 Heart rate 76 /min [address] 02-23-2025 09:20-0400 Systolic blood pressure 136 mm[Hg] Svetlana 1 [facility] 01-29-2025 08:49-0400 Body height 185.4 cm Latha Caicedo PA Work Phone: [facility] 01-29-2025 08:49-0400 Body mass index (BMI) [Ratio] 28.1 kg/m2 Latha Caicedo PA Work Phone: [facility] 01-29-2025 08:49-0400 Body temperature 97.3 [degF] Latha Caicedo PA Work Phone: [facility] 01-29-2025 08:49-0400 Body weight 96.62 kg Latha Caicedo PA Work Phone: [facility] 01-29-2025 08:49-0400 Diastolic blood pressure 72 mm[Hg] Latha Caicedo PA Work Phone: [facility] 01-29-2025 08:49-0400 Heart rate 76 /min Latha Caicedo PA Work Phone: [facility] 01-29-2025 08:49-0400 SaO2% (BldA) [Mass fraction] 96 % Latha Caicedo PA Work Phone: [facility] 01-29-2025 08:49-0400 Systolic blood pressure 130 mm[Hg] Latha Caicedo PA Work Phone: [facility] 01-28-2025 10:05-0400 Body height 185.4 cm Martin Elias DO Work Phone: [facility] 01-28-2025 10:05-0400 Body mass index (BMI) [Ratio] 28.68 kg/m2 Martin Elias DO Work Phone: [facility] 01-28-2025 10:05-0400 Body weight 98.61 kg Martin Elias DO Work Phone: [facility] 01-28-2025 10:05-0400 Diastolic blood pressure 66 mm[Hg] Martin Elias DO Work Phone: [facility] 01-28-2025 10:05-0400 Heart rate 82 /min Martin Elias DO Work Phone: [facility] 01-28-2025 10:05-0400 Systolic blood pressure 116 mm[Hg] Martin Elias DO Work Phone: [facility] 12-04-2024 11:36-0500 Body height 185.4 cm Joyce Loyd MULTI DISCIPLINED LANGUAGE ANALYST Work Phone: [facility] 12-04-2024 11:36-0500 Body mass index (BMI) [Ratio] 28.23 kg/m2 Joyce Loyd MULTI DISCIPLINED LANGUAGE ANALYST Work Phone: [facility] 12-04-2024 11:36-0500 Body temperature 98.01 [degF] Joyce Loyd MULTI DISCIPLINED LANGUAGE ANALYST Work Phone: [facility] 12-04-2024 11:36-0500 Body weight 97.07 kg Joyce Loyd MULTI DISCIPLINED LANGUAGE ANALYST Work Phone: [facility] 12-04-2024 11:36-0500 Diastolic blood pressure 78 mm[Hg] Joyce Evert MULTI DISCIPLINED LANGUAGE ANALYST Work Phone: [facility] 12-04-2024 11:36-0500 Heart rate 62 /min Joyce Loyd MULTI DISCIPLINED LANGUAGE ANALYST Work Phone: [facility] 12-04-2024 11:36-0500 SaO2% (BldA) [Mass fraction] 99 % Joyce Loyd MULTI DISCIPLINED LANGUAGE ANALYST Work Phone: [facility] 12-04-2024 11:36-0500 Systolic blood pressure 120 mm[Hg] Joyce Evert MULTI DISCIPLINED LANGUAGE ANALYST Work Phone: [facility] 12-04-2024 11:15-0500 Body height 185.4 cm Nitish Agrawal DO Work Phone: [facility] 12-04-2024 11:15-0500 Body mass index (BMI) [Ratio] 28.23 kg/m2 Nitish Agrawal DO Work Phone: [facility] 12-04-2024 11:15-0500 Body temperature 98.01 [degF] Nitish Agrawal DO Work Phone: [facility] 12-04-2024 11:15-0500 Body weight 97.07 kg Nitish Agrawal DO Work Phone: [facility] 12-04-2024 11:15-0500 Diastolic blood pressure 78 mm[Hg] Nitish Agrawal DO Work Phone: [facility] 12-04-2024 11:15-0500 Heart rate 62 /min Nitish Agrawal DO Work Phone: [facility] 12-04-2024 11:15-0500 SaO2% (BldA) [Mass fraction] 99 % Nitish Agrawal DO Work Phone: [facility] 12-04-2024 11:15-0500 Systolic blood pressure 120 mm[Hg] Niitsh Agrawal DO Work Phone: [facility] 12-01-2024 09:09-0500 Body height 185.4 cm Lashaun Petznick DO Work Phone: [facility] 12-01-2024 09:09-0500 Body mass index (BMI) [Ratio] 28.5 kg/m2 Lashaun Petznick DO Work Phone: [facility] 12-01-2024 09:09-0500 Body temperature 98.29 [degF] Lashaun Petznick DO Work Phone: [facility] 12-01-2024 09:09-0500 Body weight 97.98 kg Lashaun Petznick DO Work Phone: [facility] 12-01-2024 09:09-0500 Diastolic blood pressure 82 mm[Hg] Lashaun Petznick DO Work Phone: [facility] 12-01-2024 09:09-0500 Heart rate 83 /min Lashaun Petznick DO Work Phone: [facility] 12-01-2024 09:09-0500 SaO2% (BldA) [Mass fraction] 96 % Lashaun Petznick DO Work Phone: [facility] 12-01-2024 09:09-0500 Systolic blood pressure 140 mm[Hg] Lashaun Petznick DO Work Phone: [facility] 09-01-2024 09:14-0400 Body height 185.4 cm Lashaun Petznick DO Work Phone: [facility] 09-01-2024 09:14-0400 Body mass index (BMI) [Ratio] 29.5 kg/m2 Lashaun Petznick DO Work Phone: [facility] 09-01-2024 09:14-0400 Body temperature 96.6 [degF] Lashaun Petznick DO Work Phone: [facility] 09-01-2024 09:14-0400 Body weight 101.42 kg Lashaun Petznick DO Work Phone: [facility] 09-01-2024 09:14-0400 Diastolic blood pressure 72 mm[Hg] Lashaun Petznick DO Work Phone: [facility] 09-01-2024 09:14-0400 Heart rate 69 /min Lashaun Petznick DO Work Phone: [facility] 09-01-2024 09:14-0400 SaO2% (BldA) [Mass fraction] 96 % Lashaun Petznick DO Work Phone: [facility] 09-01-2024 09:14-0400 Systolic blood pressure 124 mm[Hg] Lashaun Petznick DO Work Phone: [facility] 06-16-2024 15:30-0400 Body height 185.4 cm Nitish Agrawal DO Work Phone: [facility] 06-16-2024 15:30-0400 Body mass index (BMI) [Ratio] 29.42 kg/m2 Nitish Agrawal DO Work Phone: [facility] 06-16-2024 15:30-0400 Body temperature 98.29 [degF] Nitish Agrawal DO Work Phone: [facility] 06-16-2024 15:30-0400 Body weight 101.15 kg Nitish Agrawal DO Work Phone: [facility] 06-16-2024 15:30-0400 Diastolic blood pressure 80 mm[Hg] Nitish Agrawal DO Work Phone: [facility] 06-16-2024 15:30-0400 Heart rate 80 /min Nitish Agrawal DO Work Phone: [facility] 06-16-2024 15:30-0400 Systolic blood pressure 122 mm[Hg] Nitish Agrawal DO Work Phone: [facility] 01-29-2024 14:36-0400 Body height 185.4 cm Martin Elias DO Work Phone: [facility] 01-29-2024 14:36-0400 Body mass index (BMI) [Ratio] 29.69 kg/m2 Martin Elias DO Work Phone: [facility] 01-29-2024 14:36-0400 Body weight 102.06 kg Martin Elias DO Work Phone: [facility] 01-29-2024 14:36-0400 Diastolic blood pressure 70 mm[Hg] Martin Elias DO Work Phone: [facility] 01-29-2024 14:36-0400 Heart rate 86 /min Martin Elias DO Work Phone: [facility] 01-29-2024 14:36-0400 Systolic blood pressure 138 mm[Hg] Martin Elias DO Work Phone: [facility] 05-10-2023 12:10-0400 Body height 185.42 cm Barbara Ellis Other [facility] Other 05-10-2023 12:10-0400 Body mass index (BMI) [Ratio] 30.26 kg/m2 Barbara Ellis Other [facility] Other 05-10-2023 12:10-0400 Body temperature 97.8 [degF] Barbara Ellis Other [facility] Other 05-10-2023 12:10-0400 Body weight 104.06 kg Barbara Ellis Other [facility] Other 05-10-2023 12:10-0400 Respiratory rate 18 /min Barbara Ellis Other [facility] Other 05-10-2023 12:10-0400 SaO2% (BldA) [Mass fraction] 97 % Barbara Ellis Other [facility] Other 01-23-2023 11:01-0400 Body height 185.42 cm Nitish Agrawal Work Phone: [facility] [facility] DO Work Phone: 01-23-2023 11:01-0400 Body mass index (BMI) [Ratio] 30.08 kg/m2 Nitish Agrawal Work Phone: [facility] [facility] DO Work Phone: 01-23-2023 11:01-0400 Body surface area Derived from formula 2.28 m2 Nitish Agrawal Work Phone: -[facility] 250 DO Work Phone: 01-23-2023 11:01-0400 Body weight 103.42 kg Nitish Agrawal Work Phone: -[facility] 250 DO Work Phone: 01-23-2023 11:01-0400 Diastolic blood pressure 60 mm[Hg] Nitish Agrawal Work Phone: -[facility] [address] DO Work Phone: 01-23-2023 11:01-0400 Heart rate 60 /min Nitish Agrawal Work Phone: [facility] [facility] DO Work Phone: 01-23-2023 11:01-0400 Systolic blood pressure 108 mm[Hg] Nitish Agrawal Work Phone: [facility] 250 DO Work Phone: 05-01-2022 09:28-0400 Body height 185.42 cm Nitish Agrawal Work Phone: [facility] [address] DO Work Phone: 05-01-2022 09:28-0400 Body mass index (BMI) [Ratio] 29.42 kg/m2 Nitish Agrawal Work Phone: [facility] 250 DO Work Phone: 05-01-2022 09:28-0400 Body surface area Derived from formula 2.25 m2 Nitish Agrawal Work Phone: [facility] 250 DO Work Phone: 05-01-2022 09:28-0400 Body weight 101.15 kg Nitish Agrawal Work Phone: [facility] 250 DO Work Phone: 05-01-2022 09:28-0400 Diastolic blood pressure 50 mm[Hg] Nitish Agrawal Work Phone: [facility] [facility] DO Work Phone: 05-01-2022 09:28-0400 Heart rate 80 /min Nitish Agrawal Work Phone: [facility] [address] DO Work Phone: 05-01-2022 09:28-0400 Systolic blood pressure 80 mm[Hg] Nitish Agrawal Work Phone: [facility] [facility] DO Work Phone: 03-01-2022 07:30-0400 40 1 Nitish Agrawal Work Phone: [facility] 600 DO Work Phone: Comment on above: [id number] 11-22-2021 10:31-0500 Body height 182.88 cm Nitish Agrawal Work Phone: [facility] [address] DO Work Phone: 11-22-2021 10:31-0500 Body mass index (BMI) [Ratio] 30.38 kg/m2 Nitish Agrawal Work Phone: [facility] 250 DO Work Phone: 11-22-2021 10:31-0500 Body surface area Derived from formula 2.24 m2 Nitish Agrawal Work Phone: [facility] 250 DO Work Phone: 11-22-2021 10:31-0500 Body weight 101.61 kg Nitish Agrawal Work Phone: [facility] 250 DO Work Phone: 11-22-2021 10:31-0500 Diastolic blood pressure 72 mm[Hg] Nitish Agrawal Work Phone: [facility] 250 DO Work Phone: 11-22-2021 10:31-0500 Heart rate 66 /min Nitish Agrawal Work Phone: [facility] [facility] DO Work Phone: 11-22-2021 10:31-0500 Systolic blood pressure 124 mm[Hg] Ntiish Agrawal Work Phone: [facility] [facility] DO Work Phone: 10-10-2021 10:00-0500 Body height 185.42 cm Jaelyn Espinal Other [facility] Other 10-10-2021 10:00-0500 Body temperature 97.5 [degF] Jaelyn Espinal Other [facility] Other 10-10-2021 10:00-0500 SaO2% (BldA) [Mass fraction] 99 % Jaelyn Espinal Other [facility] Other 09-27-2021 09:48-0500 Body height 182.88 cm Nitish Agrawal Work Phone: [facility] 250 DO Work Phone: 09-27-2021 09:48-0500 Body mass index (BMI) [Ratio] 30.65 kg/m2 Nitish Agrawal Work Phone: [facility] 250 DO Work Phone: 09-27-2021 09:48-0500 Body surface area Derived from formula 2.24 m2 Nitish Agrawal Work Phone: [facility] 250 DO Work Phone: 09-27-2021 09:48-0500 Body weight 102.51 kg Nitish Agrawal Work Phone: [facility] 250 DO Work Phone: 09-27-2021 09:48-0500 Diastolic blood pressure 59 mm[Hg] Nitish Agrawal Work Phone: [facility] 250 DO Work Phone: 09-27-2021 09:48-0500 Heart rate 73 /min Nitish Agrawal Work Phone: [facility] 250 DO Work Phone: 09-27-2021 09:48-0500 Systolic blood pressure 129 mm[Hg] Nitish Agrawal Work Phone: [facility] 250 DO Work Phone: 09-27-2021 09:48-0500 46 1 Nitish Agrawal Work Phone: [facility] [address] [place] Work Phone: Comment on above: [id number] Encounters Encounter Date Encounter Type Care Provider Facility Start: 02-23-2025 End: 02-24-2025 Clinisync Result Encounter Generic External Data Provider [facility] External Department Unsolicited Start: 02-23-2025 End: 02-24-2025 Clinisync Result Encounter Generic External Data Provider [facility] External Department Unsolicited Start: 02-23-2025 End: 02-23-2025 Subsequent hospital visit by physician Svetlana Aponte Admin Room 1 [facility] Comment on above: Arteriosclerotic car diovascular disease (ASCVD); History of coronary artery bypass graft; Status post angioplasty; Angina pectoris; Palpitations; Tachycardia Start: 02-23-2025 End: 02-23-2025 ambulatory [facility] Start: 01-30-2025 End: 01-30-2025 ambulatory [facility] Ambulatory Start: 01-29-2025 End: 01-29-2025 Bamboo flowsheet Latha Caicedo PA Work Phone: [facility] Start: 01-29-2025 End: 01-29-2025 Bamboo flowsheet Latha HARRIS Work Phone: [facility] Start: 01-29-2025 End: 01-29-2025 Office outpatient visit 15 minutes Latha Caicedo PA Work Phone: [facility] Comment on above: Anxiety (Primary Dx) Start: 01-29-2025 End: 01-29-2025 ambulatory LATHA CAICEDO Not Available Start: 01-28-2025 End: 01-28-2025 Clinisync Result Encounter Generic External Data Provider [facility] External Department Unsolicited Start: 01-28-2025 End: 01-28-2025 Clinisync Result Encounter Generic External Data Provider [facility] External Department Unsolicited Start: 01-28-2025 End: 01-28-2025 Office outpatient visit 40 minutes [facility] Work Phone: [facility] Comment on above: Arteriosclerotic car diovascular disease [...] ischemic cardiomyopathy Start: 01-28-2025 End: 01-28-2025 ambulatory [facility] Ambulatory Start: 12-04-2024 End: 12-04-2024 Bamboo flowsheet Nitish Agrawal DO Work Phone: [facility] Start: 12-04-2024 End: 12-04-2024 Bamboo flowsheet Nitish Agrawal DO Work Phone: [facility] Start: 12-04-2024 End: 12-04-2024 Assay of hemosiderin, quant Joyce Loyd MULTI DISCIPLINED LANGUAGE ANALYST Work Phone: [facility] Start: 12-04-2024 End: 12-04-2024 Patient encounter procedure Joyce Loyd MULTI DISCIPLINED LANGUAGE ANALYST Work Phone: [facility] 230 Comment on above: Routine general [...] minutes Nitish Agrawal DO Work Phone: [facility] 230 Comment on above: Hypothyroidism (acqu ired) (CMS/HCC) (Primary Dx) Start: 12-04-2024 End: 12-04-2024 ambulatory JOYCE LOYD Not Available Start: 12-01-2024 End: 12-01-2024 Office outpatient visit 25 minutes Lashaun Bradley DO Work Phone: [facility] [place] [facility] 230 Comment on above: Type 2 diabetes lisandro itus with other circulatory complications (CMS/HCC) (Primary Dx); Type 2 diabetes mellitus with stage 3a chronic kidney disease, without long-term current use of insulin (HCC) (CMS/HCC); Preventative health care; Screening for prostate cancer Start: 12-01-2024 End: 12-01-2024 Patient encounter status Lashaun Bradley DO Work Phone: [facility] Start: 12-01-2024 End: 12-01-2024 ambulatory LASHAUN BRADLEY Not Available Start: 09-01-2024 End: 09-01-2024 Office outpatient visit 25 minutes Lashaun Bradley DO Work Phone: [facility] FM 230 Comment on above: Type 2 diabetes lisandro itus with other circulatory complications (CMS/HCC) Start: 09-01-2024 End: 09-01-2024 ambulatory LASHAUN BRADLEY Not Available Start: 08-29-2024 End: 08-29-2024 Telephone encounter Lashaun Bradley DO Work Phone: [facility] FM 230 Start: 06-27-2024 End: 06-27-2024 [employer] Work Phone: [facility] Start: 06-27-2024 End: 06-27-2024 [employer] Work Phone: [facility] Start: 06-27-2024 End: 06-27-2024 Office outpatient new 45 minutes Bari Clipmarks PA Work Phone: [facility]M Comment on above: Other seborrheic matthew matitis (Primary Dx); Acrochordon; Other specified erythematous conditions; Inflamed seborrheic keratosis Start: 06-27-2024 End: 06-27-2024 ambulatory BARI NORTHEIM Not Available Start: 06-16-2024 End: 06-16-2024 ambulatory NITISH AGRAWAL Not Available Start: 06-16-2024 End: 06-16-2024 Office outpatient visit 25 minutes Nitish Agrawal DO Work Phone: [facility] FM 230 Comment on above: Hypothyroidism (acqu ired) (CMS/HCC) (Primary Dx); Family history of thyroid cancer; Type 2 diabetes mellitus with foot ulcer (CODE) (CMS/HCC); Non-pressure chronic ulcer of other part of unspecified foot with unspecified severity (CMS/HCC); Type 2 diabetes mellitus with diabetic neuropathy, unspecified (CMS/HCC); Type 2 diabetes mellitus with other diabetic neurological complication ([facility]/HCC); Type 2 diabetes mellitus with diabetic polyneuropathy (HCC) ([facility]); Type 2 diabetes mellitus with hyperglycemia ([facility]); Acquired absence of other right toe(s) ([facility]) Start: 06-16-2024 End: 06-16-2024 ambulatory NITISH AGRAWAL Not Available Start: 06-02-2024 End: 06-02-2024 ambulatory LASHAUN BRADLEY Not Available Start: 03-03-2024 End: 03-03-2024 ambulatory LASHAUN M KIRK Not Available Start: 01-29-2024 End: 01-29-2024 Office outpatient visit 25 minutes Martin Elias DO Work Phone: [facility] Comment on above: Arteriosclerotic car diovascular disease (ASCVD); History of coronary artery bypass graft; Multiple vessel coronary artery disease; Status post angioplasty; Hypertension, unspecified type; Mixed hyperlipidemia; Other specified diabetes mellitus with other specified complication, with long-term current use of insulin ([facility]); BMI 29.0-29.9,adult; Never smoked tobacco Start: 05-10-2023 End: 05-10-2023 ambulatory Barbara Ellis Other [place] [employer] Other Start: 05-10-2023 Office outpatient vi sit 15 minutes Barbara Ellis [facility] Start: 03-19-2023 End: 03-20-[address] NITISH AGRAWAL Facility:H1 Start: 03-05-2023 Rx Renewal [facility]ish [facility] Work Phone: Start: 03-05-2023 End: 03-06-[address] NITISH AGRAWAL Facility:H1 Start: 02-13-2023 End: 02-14-[address] NITISH AGRAWAL Facility:H1 Start: 01-23-2023 Office outpatient vi sit 15 minutes [facility]itish [facility]al [facility] Work Phone: Start: 01-23-[address] Nitish Agrawal Facility: Start: 11-28-2022 End: 11-29-[address] NITISH AGRAWAL Facility:H1 Start: 11-13-2022 End: 11-14-2022 ambulatory NISHA Wilton FARRAR Facility:H1 Start: 10-24-2022 End: 10-25-2022 ambulatory NISHA Núñez [facility] Facility:H1 Start: 07-18-2022 End: 07-19-2022 ambulatory NISHA Núñez [facility] Facility:H1 Start: 07-03-2022 End: 07-04-2022 ambulatory NISHA Núñez [facility] Facility:H1 Start: 06-20-2022 End: 06-21-2022 ambulatory NISHA Núñez [facility] Facility:H1 Start: 06-13-2022 Encounter for preprocedural laboratory examination NISHA Núñez [facility] Start: 06-12-2022 End: 06-12-2022 ambulatory NISHA Núñez [facility] Facility:H1 Start: 06-09-2022 End: 06-10-2022 ambulatory NISHA Núñez [facility] Facility:H1 Start: 06-09-2022 End: 06-10-2022 Encounter for preprocedural laboratory examination NISHA Núñez [facility] Facility:H1 Start: 06-07-2022 End: 06-08-2022 ambulatory NISHA Núñez [facility] Facility:H1 Start: 06-06-2022 End: 06-07-2022 ambulatory NISHA Núñez [facility] Facility:H1 Start: 05-30-2022 End: 05-31-2022 ambulatory NISHA Núñez [facility] Facility:H1 Start: 05-02-2022 End: 05-03-2022 ambulatory NISHA Núñez [facility] Facility:H1 Start: 05-01-2022 Office outpatient vi sit 25 minutes Nitish Agrawal Work Phone: [facility] [facility] DO Work Phone: Start: 05-01-[address] Helga Flores Facility: Start: 04-18-2022 End: 04-19-2022 ambulatory NISHA Wilton FARRAR Facility:H1 Start: 04-14-2022 End: 04-15-2022 ambulatory NISHA Wilton CHARAN Facility:H1 Start: 03-30-2022 End: 03-31-[address] NITISH AGRAWAL Facility:H1 Start: 03-22-2022 End: 03-24-2022 Evaluation and management of inpatient SHAIKH Magui GOMEZ Facility:H1 Start: 03-22-2022 End: 03-23-[address] NITISH AGRAWAL Facility:H1 Start: 03-14-[address] Nitish Agrawal Facility:[id number] Start: 03-14-2022 Patient encounter procedure Nitish Agrawal Work Phone: [facility] 250 DO Work Phone: Start: 03-14-2022 [facility], Provider: Margaux Castillo, Status: Pen, Time: 12:00 PM Nitish Agrawal Work Phone: -[facility] 250 DO Work Phone: Start: 03-14-2022 End: 03-15-2022 ambulatory Margaux Castillo Facility:[facility] Start: 03-13-2022 Chart Update Nitish Agrawal Work Phone: [facility] 250 DO Work Phone: Start: 03-10-2022 Chart Update Nitish Agrawal Work Phone: -[facility] 600 DO Work Phone: Start: 03-10-2022 End: 03-10-2022 ambulatory Nitish Agrawal Facility:[facility] Start: 12-14-2021 Rx Renewal Nitish Agrawal Work Phone: [facility] 250 DO Work Phone: Start: 11-22-2021 Office outpatient vi sit 25 minutes Nitish Agrawal Work Phone: [facility] 250 DO Work Phone: Start: 11-09-2021 [facility], Provider: Martin Elias, Status: Pen, Time: 1:00 PM Nitish Agrawal Work Phone: [facility] 250 DO Work Phone: Start: 11-08-2021 Chart Update Nitish Agrawal Work Phone: [facility] 250 DO Work Phone: Start: 10-18-2021 Telephone encounter Nitish luz Work Phone: [facility] 600 DO Work Phone: Start: 10-14-2021 Chart Update Nitish Agrawal Work Phone: [facility] 600 DO Work Phone: Start: 10-12-2021 Patient encounter procedure Nitish Agrawal Work Phone: [facility] [address] [place] Work Phone: Start: 10-10-2021 End: 10-10-2021 ambulatory Jaelyn Espinal Other [place] [employer] Other Start: 10-10-2021 Office outpatient vi sit 15 minutes Jaelyn Espinal [facility] Urgent [facility] D[facility] Start: 09-28-2021 AUDIT Nitish Agrawal Work Phone: [facility] [address] [place] Work Phone: Start: 09-27-2021 Office outpatient vi sit 25 minutes Nitish Agrawal Work Phone: [facility] 250 DO Work Phone: Start: 04-11-2017 End: 04-12-2017 Ambulatory [id number] MAILE AGRAWAL [facility] Procedures Date Procedure Procedure Detail Performing Clinician Start: 02-23-2025 Cv strs tst xers&/or rx cont ecg trcg only Martin Elias DO Work Phone: Start: 02-23-2025 NUCLEAR STRESS TEST EXERCISE (CARD) Generic External Data Provider Start: 01-28-2025 ALL BASIC METABOLIC PANEL Generic External Data Provider Start: 01-28-2025 ALL PRO BNP Generic Ex ternal Data Provider Start: 12-01-2024 Hemoglobin glycosylated a1c Lashaun Bradley DO Work Phone: Start: 12-01-2024 Lipid 1996 panel - S mariely or Plasma Martin Elias DO Work Phone: [...] History of coronary artery bypass graft Martin Cobiandon DO Work Phone: Start: 03-23-2022 Detachment at Right 2nd Toe, Complete, Open Approach NISHA FARRAR Arthroplasty of knee Nitish Agrawal Work Phone: Cardiac catheterization Nitish Agrawal Work Phone: History of coronary artery bypass grafting History of coronary artery bypass graft Nitish Agrawal Work Phone: History of coronary artery bypass grafting History of coronary artery bypass graft Martin Cobiandon DO Work Phone: History of coronary artery bypass grafting History of coronary artery bypass graft Martin Zavala Curt Work Phone: History of coronary artery bypass grafting History of coronary artery bypass graft Svetlana 1 Operative procedure on foot Nitish Agrawal Work Phone: Comment on above: toe amputation; Surgical procedure Nitish pro Work Phone: Total colonoscopy Nitish luz Work Phone: Plan of Treatment Date Care Activity Detail Author Start: 12-07-2025 End: 12-07-2025 Patient encounter procedure 12/07/2025 10:00 AM EST Office Visit [facility] [address] [place] [id number] Joyce Loyd, [employer]ED LANGUAGE ANALYST [address] [place] [address] [facility] 230 Start: 12-04-2025 Medicare Annual Wellness (AWV) Medicare Annual Wellness (AWV) [facility] Start: 12-01-2025 Lipid panel Lipid Panel [facility] Start: 12-01-2025 Thyroid stimulating hormone measurement TSH Level [facility] Start: 12-01-2025 Urine screening for protein Diabetes: Urine Protein Screening [facility] Start: 08-04-2025 End: 08-04-2025 Patient encounter procedure 08/04/2025 11:10 AM EDT Office Visit [facility] [address] [place] [phone] Martin Elias DO [address] [place] [address] [facility] Start: 03-27-2025 Screening for malignant neoplasm of colon [facility] Start: 03-27-2025 End: 03-27-2025 Patient encounter procedure 03/27/2025 8:45 AM EDT Office Visit [facility] [address] [place] [phone] Lashaun Bradley DO [address] [place] [address] [facility] 230 Start: 03-12-2025 End: 03-12-2025 Patient encounter procedure 03/12/2025 8:00 AM EDT Office Visit [facility] [address] [place] [phone] Latha Caicedo, PA [address] [place] [address] [facility] 230 Start: 03-01-2025 Hemoglobin A1c measurement Diabetes: Hemoglobin A1C [facility] Start: 02-01-2025 COVID-19 Vaccine ( season) COVID-19 Vaccine () [facility] Start: 01-29-2025 End: 01-29-2025 Patient encounter procedure 01/29/2025 8:40 AM EDT Office Visit [facility] [address] [place] [address] Latha Caicedo PA [address] [place] [address] Arrived [facility] 230 Comment on above: Arrived Start: 01-28-2025 End: 01-28-2026 Basic metabolic 2000 panel - Serum or Plasma Basic Metabolic Panel Lab Routine Arteriosclerotic cardiovascular disease (ASCVD) Expected: 01/28/2025 (Approximate), Expires: 01/28/2026 [facility] Work Phone: Comment on above: Expected: 01/28/2025 (Approximate), Expi res: 01/28/2026 Start: 01-28-2025 End: 01-28-2026 C reactive protein [Mass/volume] in Serum or Plasma by High sensitivity method C-Reactive Protein, High Sensitivity Lab Routine Arteriosclerotic cardiovascular disease (ASCVD) Expected: 01/28/2025 (Approximate), Expires: 01/28/2026 [facility] Work Phone: Comment on above: Expected: 01/28/2025 (Approximate), Expi res: 01/28/2026 Start: 01-28-2025 End: 01-28-2026 Holter monitor study Holter Or Event [facility] Routine Angina pectoris Palpitations Tachycardia Expected: 01/28/2025, Expires: 01/28/2026 [facility] Service Area Work Phone: Comment on above: Expected: 01/28/2025, Expires: Start: 01-28-2025 End: 01-28-2026 Natriuretic peptide B [Mass/volume] in Blood B-Type Natriuretic Peptide Lab Routine Arteriosclerotic cardiovascular disease (ASCVD) ACC/AHA stage C congestive heart failure due to ischemic cardiomyopathy Expected: 01/28/2025 (Approximate), Expires: 01/28/2026 [facility] Work Phone: Comment on above: Expected: 01/28/2025 (Approximate), Expi res: 01/28/2026 Start: 01-28-2025 End: 01-28-2027 NM Heart Perfusion W stress and W radionuclide IV Nuclear Stress Test Cardiac Nuclear Medicine Routine 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 Status post angioplasty Angina pectoris Palpitations Tachycardia Expected: 01/28/2025 (Approximate), Expires: 01/28/2027 [facility] Work Phone: Comment on above: Expected: 01/28/2025 (Approximate), Expi res: 01/28/2027 Start: 01-28-2025 End: 01-28-2025 Patient encounter procedure 01/28/2025 9:50 AM EDT Office Visit [facility] [address] [place] [address] Martin Elias, DO [address] [place] [address] [facility] Start: 12-04-2024 End: 12-04-2024 Patient encounter procedure 12/04/2024 11:20 AM EST Office Visit [facility] [address] [place] [phone] Nitish Agrawal, DO [address] [place] [address] Arrived [facility] 230 Comment on above: Arrived Start: 12-02-2024 Hemoglobin A1c measurement Diabetes: Hemoglobin A1C [facility] Start: 12-01-2024 End: 12-01-2025 Prostate specific Ag [Mass/volume] in Serum or Plasma PSA Lab Routine Screening for prostate cancer Expected: 12/01/2024 (Approximate), Expires: 12/01/2025 [facility] Comment on above: Expected: 12/01/2024 (Approximate), Expi res: 12/01/2025 Start: 12-01-2024 End: 12-01-2024 Patient encounter procedure 12/01/2024 9:15 AM EST Office Visit [facility] [address] [place] [phone] OtonielyelenaLashaun gipson, DO [address] [place] [address] [facility] 230 Start: 09-02-2024 Hemoglobin A1c measurement Diabetes: Hemoglobin A1C [facility] Start: 09-01-2024 End: 09-01-2024 Patient encounter procedure 09/01/2024 9:15 AM EDT Office Visit [facility] [address] [place] [address] OtonielyelenaLashaun gipson, DO [address] [place] [address] [facility] 230 Start: 08-09-2024 Urine screening for protein Diabetes: Urine Protein Screening [facility] Start: 07-06-2024 Influenza vaccination Influenza Vaccine (#1) [facility] Start: 06-27-2024 Glaucoma screening Diabetes: Retinopathy Screening [facility] Start: 06-27-2024 End: 06-27-2024 Patient encounter procedure 06/27/2024 8:50 AM EDT Office Visit [facility] [address] [place] [phone] Bari Chowdhury PA [address] [place] [phone] Arrived [facility] Comment on above: Arrived Start: 01-29-2024 End: 01-28-2025 Alanine aminotransferase [Enzymatic activity/volume] in Serum or Plasma by With P-5'-P Alanine Aminotransferase Lab Routine 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 Multiple vessel coronary artery disease Hypertension, unspecified type Mixed hyperlipidemia Expected: 01/29/2024 (Approximate), Expires: 01/28/2025 [facility] Work Phone: Comment on above: Expected: 01/29/2024 (Approximate), Expi res: 01/28/2025 Start: 01-29-2024 End: 01-28-2025 Aspartate aminotransferase [Enzymatic activity/volume] in Serum or Plasma by With P-5'-P Aspartate Aminotransferase Lab Routine 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 Multiple vessel coronary artery disease Hypertension, unspecified type Mixed hyperlipidemia Expected: 01/29/2024 (Approximate), Expires: 01/28/2025 [facility] Work Phone: Comment on above: Expected: 01/29/2024 (Approximate), Expi res: 01/28/2025 Start: 01-29-2024 End: 01-28-2025 C reactive protein [Mass/volume] in Serum or Plasma by High sensitivity method C-Reactive Protein, High Sensitivity Lab Routine 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 Multiple vessel coronary artery disease Hypertension, unspecified type Mixed hyperlipidemia Expected: 01/29/2024 (Approximate), Expires: 01/28/2025 [facility] Work Phone: Comment on above: Expected: 01/29/2024 (Approximate), Expi res: 01/28/2025 Start: 01-29-2024 End: 01-28-2025 Lipid 1996 panel - Serum or Plasma Lipid Panel Lab Routine 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 Multiple vessel coronary artery disease Hypertension, unspecified type Mixed hyperlipidemia Expected: 01/29/2024 (Approximate), Expires: 01/28/2025 [facility] Work Phone: Comment on above: Expected: 01/29/2024 (Approximate), Expi res: 01/28/2025 Start: 01-24-2024 FUV, Provider: Martin Elias, Status: Fidencio, Time: 9:30 AM FUV, Provider: Martin lEias, Status: Fidencio, Time: 9:30 AM [place] [address] DO Work Phone: Start: 01-23-2023 Medicare Annual Wellness (AWV) Medicare Annual Wellness (AWV) [facility] Start: 11-16-2022 FUV, Provider: Martin Elias, Status: Pen, Time: 10:20 AM FUV, Provider: Martin Elias, Status: Pen, Time: 10:20 AM [facility] 250 DO Work Phone: Start: 08-25-2022 Pneumococcal Vaccine: 65+ Years (2 - PCV) Pneumococcal Vaccine: 65+ Years (2 - PCV) [facility] Start: 08-25-2022 Pneumococcal Vaccine: 65+ Years (2 of 2 - PCV) Pneumococcal Vaccine: 65+ Years (2 of 2 - PCV) [facility] Start: 05-29-2022 FUV, Provider: Helga Flores, Status: Pen, Time: 10:15 AM FUV, Provider: Helga Flores, Status: Pen, Time: 10:15 AM -[facility] 250 DO Work Phone: Start: 05-01-2022 FUV, Provider: Helga Flores, Status: Pen, Time: 9:30 AM FUV, Provider: Helga Flores, Status: Pen, Time: 9:30 AM -[facility]-[place] 600 DO Work Phone: Start: 03-21-2022 FUV, Provider: Helga Flores, Status: Pen, Time: 9:15 AM FUV, Provider: Helga Flores, Status: Pen, Time: 9:15 AM -[facility] 250 DO Work Phone: Start: 03-14-2022 SURGNON, Provider: Margaux Castillo, Status: Pen, Time: 12:00 PM SUR[facility]ON[facility], Provider: Margaux Castillo, Status: Pen, Time: 12:00 PM [facility] 600 DO Work Phone: Start: 11-09-2021 SUR[facility]ONUH, Provider: Martin Elias, Status: Pen, Time: 1:00 PM SUR[facility]ON[facility], Provider: Martin Elias, Status: Pen, Time: 1:00 PM -[facility] 600 DO Work Phone: Start: 10-12-2021 STRESS NUC, Provider: TANOZOARIDA MCKEON NUCLEAR 01,[id number], Status: Pen, Time: 7:30 AM STRESS NUC, Provider: [place] MARRI NUCLEAR 01,[id number], Status: Pen, Time: 7:30 AM -[facility] 250 DO Work Phone: Start: 02-07-2006 Zoster Vaccines (1 of 2) Zoster Vaccines (1 of 2) [facility] Start: 02-07-1978 DTaP/Tdap/Td Vaccines (1 - Tdap) DTaP/Tdap/Td Vaccines (1 - Tdap) [facility] Start: 02-07-1975 Urine screening for protein Diabetes: Urine Protein Screening [facility] Start: 02-07-1974 Hepatitis C screening Hepatitis C Screening [facility] Start: 02-07-1966 Diabetic foot examination Diabetes: Foot Exam [facility] Start: 02-07-1966 Glaucoma screening Diabetes: Retinopathy Screening [facility] Start: 1956 Creatinine measurement Creatinine Level [facility] Start: 1956 Echocardiography Echocardiogram [facility] Start: 1956 Hemoglobin A1c measurement Diabetes: Hemoglobin A1C [facility] Start: 1956 Lipid panel Lipid Panel [facility] Start: 1956 Medicare Annual Wellness Visit Medicare Annual Wellness Visit (AWV) [facility] Start: 1956 Potassium measurement Potassium Level [facility] Start: 1956 Screening for malignant neoplasm of colon [facility] Start: 1956 Thyroid stimulating hormone measurement TSH Level [facility] CBC W Auto Different ial panel - Blood CBC and differential Lab Routine Preventative health care Ordered: 12/01/2024 [facility] Comment on above: Ordered: 12/01/2024 Comprehensive metabo lic 2000 panel - Serum or Plasma Comprehensive metabolic panel Lab Routine Preventative health care Ordered: 12/01/2024 [facility] Work Phone: Comment on above: Ordered: 12/01/2024 Lipid 1996 panel - S mariely or Plasma Lipid panel Lab Routine Preventative health care Ordered: 12/01/2024 [facility] Comment on above: Ordered: 12/01/2024 Microalbumin/Creatin ine panel in random Urine Microalbumin / creatinine urine ratio Lab Routine Type 2 diabetes mellitus with other circulatory complications (CMS/HCC) Ordered: 12/01/2024 [facility] Comment on above: Ordered: 12/01/2024 Thyrotropin [Units/volume] in Serum or Plasma TSH Lab Routine Preventative health care Ordered: 12/01/2024 [facility] Comment on above: Ordered: 12/01/2024 Immunizations Immunization Date Immunization Notes Care Provider Ele mcneal 12-04-2024 Pneumococcal Conjuga te PCV 20 Joyce Loyd M[employer] LANGUAGE ANALYST Work Phone: [facility] 08-04-2024 influenza, high dose seasonal, preservative-free Lashaun Bradley DO Work Phone: [facility] 08-21-2023 Influenza, Seasonal, Quadrivalent, Adjuvanted [facility] Work Phone: [facility] 08-21-2023 influenza virus vacc ine, unspecified formulation [facility] Work Phone: [facility] 08-09-2023 RSV, recombinant, protein subunit RSVpreF, adjuvant reconstitu, 120mcg/0.5mL, PF (Arexvy) [facility] Work Phone: [facility] [facility] 08-02-2022 Fluzone High-Dose Quadrivalent 0.7 ML Intramuscular Suspension Prefilled Syringe Nitish Agrawal Work Phone: [facility] 250 DO Work Phone: 08-02-2022 Pfizer COVID-19 Vac Bivalent 30 MCG/0.3ML Intramuscular Suspension Nitish Agrawal Work Phone: [facility] 09-02-2021 Pfizer-BioNTech COVI D-19 Vacc 30 MCG/0.3ML Intramuscular Suspension Nitish Agrawal Work Phone: [facility] 08-25-2021 Fluad Quadrivalent 0 .5 ML Intramuscular Prefilled Syringe Nitish Agrawal Work Phone: [facility] 250 DO Work Phone: 08-25-2021 pneumococcal polysaccharide vaccine, 23 valent Nitish Agrawal Work Phone: [facility] 02-06-2021 Pfizer-BioNTech COVI D-19 Vacc 30 MCG/0.3ML Intramuscular Suspension Nitish Agrawal Work Phone: [facility] 01-16-2021 Pfizer-BioNTech COVI D-19 Vacc 30 MCG/0.3ML Intramuscular Suspension Nitish Agrawal Work Phone: [facility] 11-22-2020 zoster vaccine recombinant Nitish Agrawal Work Phone: -[facility] 250 DO Work Phone: 11-22-2020 zoster vaccine, unspecified formulation Martin Elias DO Work Phone: [facility] Work Phone: 09-09-2020 influenza, high dose seasonal, preservative-free Nitish Agrawal Work Phone: [facility] 250 DO Work Phone: 09-05-2020 influenza virus vacc ine, unspecified formulation Nitish Agrawal Work Phone: [facility] 250 DO Work Phone: 09-05-2020 influenza, seasonal, injectable Bari Andreeam PA Work Phone: [facility] 08-29-2020 influenza, injectabl e, quadrivalent, preservative free Nitish Agrawal Work Phone: [facility] 250 DO Work Phone: 08-29-2020 zoster vaccine recombinant Nitish Agrawal Work Phone: [facility] 250 DO Work Phone: 08-29-2020 zoster vaccine, unspecified formulation Martin Elias DO Work Phone: [facility] Work Phone: 09-07-2019 influenza virus vacc ine, unspecified formulation Nitish Agrawal [facility] Phone: [facility] Work Phone: 08-26-2019 Influenza, injectabl e, Madin Caitie Canine Kidney, preservative free, quadrivalent Nitish Agrawal Work Phone: [facility] 250 DO Work Phone: 11-05-2017 pneumococcal polysaccharide vaccine, 23 valent Nitish Agrawal Work Phone: [facility] 09-18-2017 influenza, injectabl e, quadrivalent, preservative free Nitish Agrawal Work Phone: [place] [address] DO Work Phone: 08-06-2017 influenza, high dose seasonal, preservative-free Nitish Agrawal Work Phone: [place] [address] DO Work Phone: 08-05-2016 influenza virus vacc ine, unspecified formulation Nitish Agrawal Work Phone: [place] [address] DO Work Phone: 07-24-2011 influenza, seasonal, injectable, preservative free Nitish Agrawal Work Phone: [place] [address] DO Work Phone: 11-05-2010 influenza virus vacc ine, unspecified formulation Nitish Agrawal Work Phone: [facility] 250 DO Work Phone: 08-05-2010 pneumococcal polysaccharide vaccine, 23 valent Nitish Agrawal Work Phone: [facility] 250 DO Work Phone: 08-13-2008 influenza, seasonal, injectable, preservative free Nitish Agrawal Work Phone: [facility] 250 DO Work Phone: influenza virus vacc ine, unspecified formulation Nitish Agrawal Work Phone: [facility] 250 DO Work Phone: Comment on above: Sep 2010 Payers Date Payer Category Payer Self-pay 2021 Medicare [id number] 2021 Private Health Insurance [employer] Member Subscriber Plan / Payer (Effective 2021-Present) Name: Janice Ford Relation to Subscriber: Self Name: Janice Ford Payer ID: Not on file Type: Not on file Address: [place] [id number] 2021 Unknown 2017 Unknown [id number] 1958 Medicare [id number] 1959 Unknown [id number] 2.16840.1.204326.19 1956 Unknown [id number] 2.16840.1.727126.3.579.2. 356 1956 Unknown [id number] 2.840.1.566663.3.579.2. 356 1956 Unknown [id number] 2.840.1.476270.3.579.2. 356 1956 Unknown [id number] 2.16.840.1.844536.3.579.2. 593 1956 Unknown [id number] 2.16.840.1.514730.3.579.2. 593 1956 Unknown [id number] 2.16.840.1.117721.3.579.2. 593 1956 Unknown [id number] 2.16.840.1.824061.3.579.2. 593 1956 Unknown [id number] 2.16.840.1.056571.3.579.2. 593 1956 Unknown [id number] 2.16.840.1.354666.3.579.2. 593 1956 Unknown [id number] 2.16.840.1.437003.3.579.2. 593 1956 Unknown [id number] 2.16.840.1.001120.3.579.2. 593 1956 Unknown [id number] 2.16.840.1.912384.3.579.2. 593 1956 Unknown [id number] 2.16.840.1.120615.3.579.2. 593 1956 Unknown [id number] 2.16.840.1.983947.3.579.2. 593 1956 Unknown [id number] 2.16.840.1.004324.3.579.2. 593 1956 Unknown [id number] 2.16.840.1.439206.3.579.2. 593 1956 Unknown [id number] 2.16.840.1.459712.3.579.2. 593 1956 Unknown [id number] 2.16.840.1.381782.3.579.2. 593 1956 Unknown [id number] 2.16.840.1.372087.3.579.2. 593 1956 Unknown [id number] 2.16.840.1.570930.3.579.2. 593 1956 Unknown [id number] 2.16.840.1.334711.3.579.2. 593 1956 Unknown [id number] 2.16.840.1.713697.3.579.2. 593 1956 Unknown [id number] 2.16.840.1.568118.3.579.2. 593 1956 Unknown [id number] 2.16.840.1.649736.3.579.2. 9 1956 Unknown [id number] 2.16.840.1.149119.3.579.2. 9 1956 Unknown [id number] 2.16.840.1.012782.3.579.2. 1258 1956 Unknown [id number] 2.16.840.1.296736.3.579.2. 1258 1956 Unknown [id number] 2.16.840.1.056970.3.579.2. 1258 1956 Unknown [id number] 2.16.840.1.129139.3.579.2. 1258 1956 Unknown [id number] 2.16840.1.772296.3.579.2. 1258 1956 Unknown [id number] 2.16.840.1.500818.3.579.2. 9 1956 Unknown [id number] 2.16840.1.977059.3.579.2. 1258 1956 Unknown [id number] 2.16.840.1.310944.3.579.2. 9 1956 Unknown [id number] 2.16840.1.926061.3.579.2. 1245 1956 Unknown [id number] 2.16.840.1.594182.3.579.2. 1245 1956 Unknown [id number] 2.16840.1.835468.3.579.2. 1245 1956 Unknown [id number] 2.16840.1.894480.3.579.2. 1245 1956 Unknown [id number] 2.16840.1.166509.3.579.2. 1245 1956 Unknown [id number] 2.16.840.1.226655.3.579.2. 1244 1956 Unknown [id number] 2.16.840.1.682773.3.579.2. 1244 Unknown [id number] 2.16.840.1.260589.3.579.2. 531 Unknown [id number] 2.16.840.1.084368.3.579.2. 531 Social History Date Type Detail Facility Start: 01-29-2024 End: 12-04-2024 Caffeine use Caffeine use -[facility] 250 DO Work Phone: Comment on above: occassional; Start: 01-29-2024 End: 12-04-2024 Sex Assigned At [facility] [employer] Other Start: 01-29-2024 End: 06-16-2024 Tobacco smoking status NHIS Never smoked tobacco [facility] Start: 01-29-2024 End: 06-16-2024 Tobacco use and exposure Smokeless tobacco non-user [facility] Work Phone: Start: 01-29-2024 End: 01-29-2025 Alcohol intake Lifetime non-drinker (finding) [facility] Work Phone: Start: 1955 Sex Assigned At Not on file [facility] Work Phone: Start: 01-19-2024 End: 01-30-2025 Exposure to SARS-CoV-2 (event) Not sure [facility] How often to you hav e a drink containing alcohol? Never [facility] How many standard drinks containing alcohol do you have on a typical day? Patient does not drink [facility] Start: 1955 Sex assigned at Male [facility] Start: 09-23-2024 Gender identity Identifies as male gender (finding) [facility] Work Phone: NEGATED: Highlighted rowStart: NINF History of tobacco use Passive smoker [facility] Medical Equipment Procedure Code Equipment Code Equipment Origin al Text Equipment Identifier Dates Fsbs daily [id number] Start: 03-03-2024 Fsbs daily [id number] Start: 03-03-2024 Clinical Notes 10-08-2017 to 01-29-2025 Latha Caicedo, PA - 01/29/2025 8:40 AM Nydia Elias, DO - 01/28/2025 9:50 AM EDTPatitrudi Agrawal, DO - 12/04/2024 11:20 AM Trini Bradley, [...] around large groups. Pt was told by [employer] he wants to have a stress test [...] questions or concerns. documented in this encounter [facility] 01-28-2025 History of Presen t illness Narrative [...] Attestation By signing my name below, I, Mandi Micah Vincent LPNibkvng attest that this documentation has been prepared [...] discussion and plan. documented in this encounter [facility] Work Phone: 01-28-2025 Instructions Mandi Oakley LPN [...] instructions on exercise. documented in this encounter [facility] Work Phone: 12-04-2024 History of Presen t [...] FOR 90 DAYS Blood Glucose Monitoring Suppl ([employer] Verio Flex System) w/Device kit No dose, [...] fenofibrate (TRICOR) 145 mg, Daily glucose blood ([employer]uch Verio) test strip Fsbs daily hydrOXYzine HCl (ATARAX) 50 mg, Oral, 2 times daily PRN isosorbide mononitrate ER (IMDUR) 60 mg, Daily levothyroxine (SYNTHROID, LEVOXYL) 200 mcg, Oral, Daily metFORMIN XR (GLUCOPHAGE-XR) 500 mg, Oral, 2 times daily nitroglycerin (NITROSTAT) 0.4 mg, Every 5 min PRN [employer] Delica Lancets 33G [facility] Fsbs daily Ozempic (2 MG/DOSE) 2 mg, [...] (H) 0.70 - 1.30 mg/dL TBH EGFR-AF GUINEAN >60 >=60 mL/min/1.73m 2 TBH EGFR-NON AF GUINEAN 51 (L) >=60 mL/min/1.73m 2 BUN CREATININE [...] the patient today. documented in this encounter [facility] 12-01-2024 History of Presen t illness Narrative Associated Problem(s): Type 2 diabetes mellitus with other circulatory complications ([facility]) During the appointment today all [...] 2 diabetes mellitus with other circulatory complications ([facility]) Anemia, unspecified Atherosclerotic heart disease of [place] coronary artery without angina pectoris ([facility]) Gastro-esophageal reflux disease without esophagitis Osteoarthritis of knee, unspecified Stage 3a chronic kidney disease (CKD) ([facility]) Hypertension ([facility]) Hyperlipidemia ([facility]) History of coronary artery bypass graft Type 2 diabetes mellitus with stage 3a chronic kidney disease, without long-term current use of insulin ([facility]) ([facility]) Social History Tobacco Use Smoking [...] FOR 90 DAYS BLOOD GLUCOSE MONITORING SUPPL ([employer] VERIO FLEX SYSTEM) W/DEVICE KIT CARVEDILOL (COREG) [...] the patient today. documented in this encounter [facility] 09-01-2024 History of Presen t illness Narrative Associated Problem(s): Type 2 diabetes mellitus with other circulatory complications ([facility]) During the appointment today all [...] 2 diabetes mellitus with other circulatory complications ([facility]) Anemia, unspecified Atherosclerotic heart disease of [place] coronary artery without angina pectoris ([facility]) Gastro-esophageal reflux disease without esophagitis Osteoarthritis of knee, unspecified Stage 3a chronic kidney disease (CKD) ([facility]) Hypertension ([facility]) Hyperlipidemia ([facility]) History of coronary artery bypass graft Type 2 diabetes mellitus with stage 3a chronic kidney disease, without long-term current use of insulin ([facility]) ([facility]) Social History Tobacco Use Smoking [...] FOR 90 DAYS BLOOD GLUCOSE MONITORING SUPPL ([employer] VERIO FLEX SYSTEM) W/DEVICE KIT CARVEDILOL (COREG) [...] by mouth in the morning. GLUCOSE BLOOD ([employer] VERIO) TEST STRIP Fsbs daily ISOSORBIDE MONONITRATE [...] (five) minutes if needed for chest pain. [employer] DELICA LANCETS 33G [facility] Fsbs daily Modified Medications No medications on file Discontinued Medications SEMAGLUTIDE (OZEMPIC, 1 MG/DOSE,) 4 MG/3ML SOLUTION PEN-INJECTOR Inject 1 mg under the skin 1 (one) time per week I have reviewed and reconciled the history and medication list with the patient today. documented in this encounter [facility] 08-29-2024 Telephone encounter Note LVM appointment reminder [facility] 08-29-2024 Miscellaneous Notes LVM appointment reminder documented in this encounter [facility] 06-27-2024 History of Presen t [...] (2) Chest - Medial (Center), Left Axilla [place] and brown stuck on verrucous scaly papule [...] limited to risks of scarring, darker or decal transferrer pigmentary changes, recurrence, incomplete removal and infection. [...] Visit: 1 year documented in this encounter [facility] 06-16-2024 History of Presen t [...] FOR 90 DAYS Blood Glucose Monitoring Suppl ([employer] Verio Flex System) w/Device kit No dose, [...] fenofibrate (TRICOR) 145 mg, Daily glucose blood ([employer] Verio) test strip Fsbs daily isosorbide mononitrate [...] 2 diabetes mellitus with foot ulcer (CODE) ([facility]/HCC) Non-pressure chronic ulcer of other part of unspecified foot with unspecified severity (CMS/HCC) Type 2 diabetes mellitus with diabetic neuropathy, unspecified (CMS/HCC) Type 2 diabetes mellitus with other diabetic neurological complication (CMS/HCC) Type 2 diabetes mellitus with diabetic polyneuropathy (HCC) ([facility]/HCC) Type 2 diabetes mellitus with hyperglycemia (CMS/HCC) Acquired absence of other right toe(s) ([facility]) Assessment & Plan 1. Family hx Papillary thyroid cancer. Noted some weight loss. Calcitonin and Carcinoma Embryonic Antigen (CEA) tests have been ordered. An ultrasound has been scheduled. No follow-ups on file. documented in this encounter [facility] 01-29-2024 History of Presen t [...] complication, with long-term current use of insulin ([facility]) 8. BMI 29.0-29.9,adult 9. Never smoked tobacco Scribe Attestation By signing my name below, ISheri LPN , Echo attest that this documentation has been prepared [...] discussion and plan. documented in this encounter [facility] Work Phone: 01-29-2024 Instructions Sheri Newman LPN [...] instructions on exercise. documented in this encounter [facility] Work Phone: 05-10-2023 Evaluation note Encounter Date [...] the ER for worsening symptoms or concerns. [facility] Other 01-24-2023 NotePROCEDURE: XR FOOT RT MIN [...] Electronically authenticated by: HUSAM GAMEZ Date: 2022-11-28 15:28[facility]08-08-2022 NotePROCEDURE: XR FOOT RT MIN 3 [...] authenticated by: ROSA MARIA MATOS Date: 2022-06-12 21:05[facility]08-02-2022 NotePROCEDURE: XR FOOT RT MIN 3 [...] Electronically authenticated by: HUSAM GAMEZ Date: 2022-06-06 19:33[facility]05-19-2022 NotePROCEDURE: XR FOOT RT MIN 3 [...] authenticated by: HUSAM GAMEZ Date: 2022-03-23 11:10[id number]* Encounter Date Diagnosis Assessment Notes Treatment Notes Treatment Clinical Notes Oct, Sore throat (ICD-10 - J02.9) symptoms appear viral in nature. Reassurance given. . Saltwater gargles may help with pain and disrupts bacteria and viral infections. Continue tylenol/ibu for general discomfort. Encourage fluids. Symptoms should improve within the next 4-7 days. [facility] Other 12-04-2017 History general Narrative - Reported* Type Description Date Medical History Diabetes mellitus Medical History Hyperlipidemia Medical History Hypothyroidism Surgical History CABG 1992 Surgical History cardiac stent 2002 Surgical History right knee arthroplasty 10/08/20 Surgical History left knee arthroplasty 03/2016 Surgical History Foot Surgery Hospitalization History see above surgical histo ry [facility] [employer] Other Evaluation note* Diagnosis Arteriosclerotic cardiovascular disease [...] Never smoked tobacco documented in this encounter [facility] Work Phone: Evaluation note* Diagnosis Type 2 [...] mellitus with hyperosmolarity without coma, unspecified whether long-term insulin use (CMS/HCC) Type 2 diabetes mellitus [...] mellitus with hyperosmolarity without coma, unspecified whether long-term insulin use (CMS/HCC) Type 2 diabetes mellitus [...] circulatory complications (CMS/HCC) documented in this encounter [facility]* Diagnosis Other seborrheic dermatitis- Primary Acrochordon Unspecified hypertrophic and atrophic condition of skin Other specified erythematous conditions Inflamed seborrheic keratosis documented in this encounter [facility]* Diagnosis Type 2 diabetes [...] with hyperosmolarity without coma, unspecified whether intermodal dispatcher insulin use (CMS/HCC) Type 2 diabetes mellitus [...] neoplasm of prostate documented in this encounter [facility]* Diagnosis Type 2 diabetes [...] with hyperosmolarity without coma, unspecified whether intermodal dispatcher insulin use (CMS/HCC) Type 2 diabetes mellitus [...] hyperlipidemia type (CMS/HCC) documented in this encounter [facility] Healthcare[facility] note* Diagnosis Arteriosclerotic cardiovascular disease (ASCVD) [...] to ischemic cardiomyopathy documented in this encounter [facility] Work Phone: Evaluation note* Diagnosis Type 2 [...] with hyperosmolarity without coma, unspecified whether intermodal dispatcher insulin use (CMS/HCC) Type 2 diabetes mellitus [...] without long-term current use of insulin (HCC) ([facility]) Preventative health care Routine general medical examination at a health care facility Screening for prostate cancer Special screening for malignant neoplasm of prostate Anxiety- Primary Anxiety state, unspecified documented in this encounter [facility] HealthcareEvaluation note* Diagnosis Type 2 diabetes mellitus with other circulatory complications- Primary Screening for prostate cancer Special screening for malignant neoplasm of prostate Type 2 diabetes mellitus with stage 3a chronic kidney disease, without long-term current use of insulin (HCC) ([facility])- Primary Type 2 diabetes mellitus with other circulatory complications Type 2 diabetes mellitus with hyperosmolarity without coma, unspecified whether intermodal dispatcher insulin use (CMS/[facility]) Type 2 diabetes mellitus with stage 3a chronic kidney disease, without long-term current use of insulin (HCC) ([facility]) 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 complications- Primary Type 2 diabetes mellitus with stage 3a chronic kidney disease, without long-term current use of insulin (HCC) ([facility]) Preventative health care Routine general medical examination at a health care facility Screening for prostate cancer Special screening for malignant neoplasm of prostate Hypothyroidism (acquired) ([facility])- Primary Unspecified hypothyroidism documented in this encounter [facility]* Diagnosis Arteriosclerotic cardiovascular disease (ASCVD) Unspecified cardiovascular disease History of coronary artery bypass graft Postsurgical aortocoronary bypass status Status post angioplasty Postsurgical percutaneous transluminal coronary angioplasty status Angina pectoris Other and unspecified angina pectoris Palpitations Tachycardia Unspecified tachycardia documented in this encounter [facility] Work Phone: History of Present illness Narrative* Mr. Ford is a 66-year-old male who is seen back today for follow-up on his history of coronary disease. He had bypass surgery that was done remotely back in 1992 at [facility]. He had a WALL graft to the [...] completed. No change made to medications today. [facility] [employer] 250 DO Work Phone: History of Present illness Narrative* Mr. Ford is a 66-year-old male who is seen back today for follow-up on his history of coronary disease. He had remote bypass surgery that was done back in 1992 at [facility].He had a WALL graft to the LAD [...] This will be arranged for [facility] through [facility]. He is to return in 6 months for follow-up. [facility] [employer] 250 DO Work Phone: History of Present illness Narrative* Mr. Ford is a 67-year-old male who is seen back today for follow-up on his history of coronary disease. He had remote bypass surgery that was done back in 1992 at [facility]. 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 This was redilated and stented. He had a recent episode at cardiac rehab in [place] and because of this was seen in [...] He is to return in 6 months. [facility] [employer] DO Work Phone: History of Present illness [...] 90 tablet 3 Blood Glucose Monitoring Suppl ([employer] Verio Flex System) w/Device kit carvedilol (Coreg) [...] by mouth in the morning. glucose blood (OneTouch Verio) test strip Fsbs daily 100 strip [...] Do you have a medical power of document review attorney?: Yes Who is your medical power of document review attorney?: alexis Ford Objective : BP 120/78 Pulse 62 Temp [...] conjugate vaccine 20-valent IM Hypertension, unspecified type ([facility]) Stage 3a chronic kidney disease (CKD) ([facility]) Type 2 diabetes mellitus with stage 3a chronic kidney disease, without long-term current use of insulin (HCC) ([facility]) Hyperlipidemia, unspecified hyperlipidemia type ([facility]) Patient here for annual Medicare [...] (ASCVD) Procedures Follow Up In Cardiology Martin Elias DO [address], [place] [address] [place] [id number] Martin Elias DO [address], [address] [place] [address] Referral ID Status Reason Start Date Expiration Date V isits Requested Visits Authorized [id number] Authorized 01/29/2024 01/28/2025 1 1 [facility] Work Phone: Reason for visit Narrative* Cardiac Stress Testing (Routine) - Authorized Specialty Diagnoses / Procedures Referred By Conttrino t Referred To Contact Radiology Diagnoses 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 Status post angioplasty Angina pectoris Palpitations Tachycardia Procedures Nuclear Stress Test CHG MYOCARDIAL SPECT MULTIPLE STUDIES Martin Elias, [address] [facility] 2, [address] [address] Phone: tel: fax: Referral ID Status Reason Start Date Expiration Date V isits Requested Visits Authorized [id number] Authorized 01/28/2025 01/28/2026 5 5 [facility] Work Phone: reason for visit Narrative* Cardiac Stress Testing (Routine) - Authorized Specialty Diagnoses / Procedures Referred By Contac t Referred To Contact Radiology Diagnoses 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 Status post angioplasty Angina pectoris Palpitations Tachycardia Procedures Nuclear Stress Test CHG MYOCARDIAL SPECT MULTIPLE STUDIES Martin Elias, [address], [place] [address] [place] [id number] Phone: tel: fax: Referral ID Status Reason Start Date Expiration Date V isits Requested Visits Authorized [id number] Authorized 01/28/2025 01/28/2026 5 5 [facility] Work Phone: Summary Purpose Family History No [...] section and content) DATE CREATED AUTHOR 05/01/2018 [facility] DATE CREATED AUTHOR AUTHOR'S ORGANIZ ATION 01/25/2022 [facility] dical Specialist DATE CREATED AUTHOR AUTHOR'S ORGANIZ ATION 03/03/2022 [facility] DATE CREATED AUTHOR AUTHOR'S ORGANIZ ATION 12/09/2022 [facility] DATE CREATED AUTHOR AUTHOR'S ORGANIZ ATION 01/24/2023 [facility] DATE CREATED AUTHOR AUTHOR'S ORGANIZ ATION 02/20/2023 [facility] DATE CREATED AUTHOR AUTHOR'S ORGANIZ ATION 03/21/2023 [facility] DATE CREATED AUTHOR AUTHOR'S ORGANIZ ATION 01/30/2025 [facility] dical Specialists EPIC DATE CREATED AUTHOR AUTHOR'S ORGANIZ ATION 03/18/2025 [facility] DATE CREATED AUTHOR AUTHOR'S ORGANIZ ATION 03/18/2025 [facility] REASON FOR VISIT (unrecogniz ed section and content) Reason Comments Annual Exam Reason Comments Diabetes Reason Comments Rash Suspicious Skin Lesion Reason Comments Medicare Annual Wellness Visit Subsequen t Reason Comments Annual Exam 1 year, arterioscler otic cardiovascular disease Specialty Diagnoses / Procedures Referred By Contac t Referred To Contact Cardiology Diagnoses Arteriosclerotic cardiovascular disease (ASCVD) Procedures Follow Up In Cardiology Martin Elias S, DO [address] [facility], [address] [place] [address] Phone: tel: fax: Martin Elias, DO [address] [facility], [facility] [address] [place] [address] Phone: tel: fax: Referral ID Status Reason Start Date Expiration Date V isits Requested Visits Authorized [id number] Authorized 01/29/2024 01/28/2025 1 1 Reason Comments [facility] Pt notes periods of chest tightness when going to work on things, noticing a difference in personality when around large groups. Pt was told by [employer] he wants to have a stress test and he started to get all tense about this. Care Teams (unrecognized sec tion and content) Animal Chiropractor Relationship Specialty Start Date End Date Nitish Agrawal, [address] [place] [address] PCP - General 09/18/19 Animal Chiropractor Relationship Specialty Start Date End Date Lashaun Bradley, [address] [facility] [address] [place] [address] PCP - ACO Reach 03/29/23 Nitish Agrawal, [address] [facility] [address] [place] [address] PCP - General Family Medicine 03/13/23 Animal Chiropractor Relationship Specialty Start Date End Date Lashaun Bradley DO [address] [facility] [address] [place] [address] PCP - ACO Reach 03/29/23 Nitish Agrawal, [address] [facility] [address] [place] [address] PCP - General Family Medicine 03/13/23 Animal Chiropractor Relationship Specialty Start Date End Date RonibrandanWojciechLashaun M, DO [address] [place] [address] PCP - ACO Reach 03/29/23 Nitish Agrawal, DO [address] [place] [address] PCP - General Family Medicine 03/13/23 Animal Chiropractor Relationship Specialty Start Date End Date RonibrandanLashaun Judie, DO [address] [place] [address] PCP - ACO Reach 03/29/23 Nitish Agrawal, DO [address] [place] [address] PCP - General Family Medicine 03/13/23 Animal Chiropractor Relationship Specialty Start Date End Date Lashaun Bradley, DO [address] [place] [address] PCP - ACO Reach 03/29/23 Nitish Agrawal, DO [address] [place] [address] PCP - General Family Medicine 03/13/23 Animal Chiropractor Relationship Specialty Start Date End Date Lashaun Bradley, DO [address] [place] [address] PCP - ACO Reach 03/29/23 Nitish Agrawal, DO [address] [place] [address] PCP - General Family Medicine 03/13/23 Animal Chiropractor Relationship Specialty Start Date End Date Lashaun Bradley, DO [address] [place] [address] PCP - ACO Reach 03/29/23 Nitish Agrawal, DO [address] [place] [address] PCP - General Family Medicine 03/13/23 Elliot Elias MD [address] [facility] [address] [place] [address] Referring Physician Cardiology 12/04/24 Nisha Farrar MD [address] [place] [address] [place] [address] Referring Physician Podiatry 12/04/24 Animal Chiropractor Relationship Specialty Start Date End Date Lashaun Bradley, DO [address] [place] [address] PCP - ACO Reach 03/29/23 Nitish Agrawal, DO [address] [place] [address] PCP - General Family Medicine 03/13/23 Animal Chiropractor Relationship Specialty Start Date End Date Nitish Agrawal, DO [address] [id number] PCP - General 09/18/19 Animal Chiropractor Relationship Specialty Start Date End Date Lashaun Bradley DO [address] [place] [address] PCP - ACO Reach 03/29/23 Nitish Agrawal, DO [address] [place] [address] PCP - General Family Medicine 03/13/23 Elliot Elias MD [address] [facility], [address] [place] [address] Referring Physician Cardiology 12/04/24 Nisha Farrar MD [address] [place] [address] [place] [address] Referring Physician Podiatry 12/04/24 Animal Chiropractor Relationship Specialty Start Date End Date Lashaun Bradley DO [address] [place] [address] PCP - ACO Reach 03/29/23 Nitish Agrawal DO [address] [place] [address] PCP - General Family Medicine 03/13/23 Elliot Elias MD [address] [facility] [address], [address] [place] [address] Referring Physician Cardiology 12/04/24 Nisha Farrar MD [address] [place] [address] [place] [address] Referring Physician Podiatry 12/04/24 Animal Chiropractor Relationship Specialty Start Date End Date Lashaun Bradley DO [address] [place] [address] PCP - ACO Reach 03/29/23 Nitish Agrawal DO [address] [place] [address] PCP - General Family Medicine 03/13/23 Elliot Elias MD [address] [facility] [address], [address] [place] [address] Referring Physician Cardiology 12/04/24 Nisha Farrar MD [address] [place], [place] [address] [place] [address] Referring Physician Podiatry 12/04/24 Animal Chiropractor Relationship Specialty Start Date End Date Lashaun Bradley, DO [address] [place] [address] PCP - ACO Reach 03/29/23 Nitish Agrawal DO [address] [place] [address] PCP - General Family Medicine 03/13/23 Elliot Elias MD [address] [facility] [address], [address] [place] [address] Referring Physician Cardiology 12/04/24 Nisha Farrar MD [address] [place], [place] [address] [place] [address] Referring Physician Podiatry 12/04/24 Animal Chiropractor Relationship Specialty Start Date End Date Nitish Agrawal DO [address] [place] [address] PCP - General 09/18/19 Animal Chiropractor Relationship Specialty Start Date End Date Nitish Agrawal DO [address] [place] [address] PCP - General 09/18/19 Animal Chiropractor Relationship Specialty Start Date End Date Nitish Agrawal, DO [address] [place] [address] PCP - General 09/18/19 Animal Chiropractor Relationship Specialty Start Date End Date Nitish Agrawal, DO [address] [place] [address] PCP - General 09/18/19 Animal Chiropractor Relationship Specialty Start Date End Date Lashaun Bradley, DO [address] [place] [address] PCP - ACO Reach 03/29/23 Nitish Agrawal DO [address] [place] [address] PCP - General Family Medicine 03/13/23 Elliot Elias MD [address] [facility] [address], [address] [place] [address] Referring Physician Cardiology 12/04/24 Nisha Farrar MD [address] [place] [address] [place] [address] Referring Physician Podiatry 12/04/24 FOR RECORDS PERTAINING [...] BE BASED ON THE PRIMARY CLINICAL RECORDS. [facility] provides no warranty or guarantee of the accuracy or completeness of information in this document.
== END 2025-03-24 09:04 | disposition home or self-care (01) ==
LOC: WC 09:03
PROVIDERS: PCP Family Medicine; Visit Provider Physician Assistant
DX: E11.621 Type 2 diabetes mellitus with foot ulcer (principal); L97.425 Non-pressure chronic ulcer of left heel and midfoot with muscle involvement without evidence of necrosis
CPT/HCPCS: 11043

== ENCOUNTER 2025-04-07 09:29 | Outpatient (OUT) | payer MEDICARE, OTHER, SELFPAY | END 2025-04-07 09:30 | disposition home or self-care (01) | LOC: WC 09:32 | PROVIDERS: PCP Family Medicine; Visit Provider Physician Assistant | DX: E11.621 Type 2 diabetes mellitus with foot ulcer (principal); L97.425 Non-pressure chronic ulcer of left heel and midfoot with muscle involvement without evidence of necrosis | CPT/HCPCS: 11043 ==

== ENCOUNTER 2025-04-22 13:51 | Outpatient (OUT) | payer MEDICARE, OTHER, SELFPAY ==
--- OUTSIDE RECORDS SUMMARY | 2025-04-22 13:54 | XMS_ITS | Encounter Summary ---
Author Organization [facility] Address [address] [place] [address] Care Team Providers Care Showroom Consultant Name Role Phone Lashaun Madison Judie DO Unavailable [phone] Nitish Agrawal DO Primary Care Provider [phone] Elliot Elias MD Unavailable [phone] Ranjan Ivory MD Unavailable [phone] Encounter Details Date Type Department Care Team (Late st Contact Info) Description 08/09/2023 Orders Only [facility] [address] [facility] [address] [place] [address] A, Unknown Practice [address] [place], [place] [phone] Social History Tobacco Use Types Packs/Day Years Used Date Smoking Tobacco: Never Smokeless Tobacco: Never Alcohol Use Standard Drinks/Week Comments Never 0 (1 standard drink = 0.6 oz pur e alcohol) AUDIT-C Answer Date Recorded Q1: How often do you have a drink containing alcohol? Never 08/06/2023 Q2: How many drinks containi ng alcohol do you have on a typical day when you are drinking? Patient does not drink Q3: How often do you have si x or more drinks on one occasion? Never 08/06/2023 PHQ-2 Answer Date Recorded Patient Health Questionnaire-2 Score 0 08/06/2023 Sex and Gender Information Value Date Recorded Sex Assigned at Not on file Legal Sex Male 7:07 PM EDT Gender Identity Not on file Sexual Orientation Not on file documented as of this encounter Plan of Treatment Upcoming Encounters Date Type Department Care Team (Late st Contact Info) Description 09/21/2025 8:30 AM EST Office Visit [facility] [address] [place] [phone] Lashaun Madison DO [address] [place] [address] 12/07/2025 10:00 AM EST Office Visit [facility] [address] [place] [phone] Joyce Loyd, LAZARO [address] [place] [address] documented as of this encounter Procedures Procedure Name Priority Date/Time Associated Diagnosis Comments SCANNED LABS Routine 08/09/2023 3:16 PM EDT SCANNED LABS Routine 08/09/2023 3:05 PM EDT documented in this encounter Results * SCANNED LABS (08/09/2023 3:16 PM EDT) us Unknown Practice A LAB CHG PERFORMABLES Final Re sult * SCANNED LABS (08/09/2023 3:05 PM EDT) us Unknown Practice A LAB CHG PERFORMABLES Final Re sult documented in this encounter Visit Diagnoses Not on filedocumented in this encounter Care Teams Showroom Consultant Relationship Specialty Start Date End Date Lashaun Madison DO [address] [place] [address] PCP - ACO Reach 03/29/23 Nitish Agrawal DO [address] [place] [address] PCP - General Family Medicine 03/13/23 Elliot Elias MD [address] [facility] [address], [address] [place] [address] Referring Physician Cardiology 12/04/24 Ranjan Ivory MD [address] [place] [address] Dr LUCAS [place], [id number] Referring Physician Podiatry 12/04/24 documented as of this encounter
--- OUTSIDE RECORDS SUMMARY | 2025-04-22 13:54 | XMS_ITS | Encounter Summary ---
Author Organization [facility] Address [address] [place] [address] Care Team Providers Care Demand Manager Name Role Phone Lashaun Madison Judie DO Unavailable [phone] Nitish Agrawal DO Primary Care Provider [phone] Elliot Elias MD Unavailable [phone] Ranjan Ivory MD Unavailable [phone] Encounter Details Date Type Department Care Team (Late st Contact Info) Description 12/04/2024 Abstract [facility] [address] [facility] [address] [place] [address] Nitish Agrawal, [address] [facility] [address] [place] [address] Social History Tobacco Use Types Packs/Day Years Used Date Smoking Tobacco: Never Passive Smoke Exposure: Never Smokeless Tobacco: Never Alcohol Use Standard [...] Date Recorded Patient Health Questionnaire-2 Score 0 12/04/2024 Sex and Gender Information Value Date Recorded Sex Assigned at Not on file Legal Sex Male 7:07 PM EDT Gender Identity Not on file Sexual Orientation Not on file documented as of this encounter Functional Status * Over the past 2 weeks, how often have you been bothered by any of the following problems? Question Answer Date of Assessment Author Little interest or pleasure in doing things Not at all 12/04/2024 11:00 AM Michela Petty MA Feeling down, depressed, or hopeless Not at all 12/04/2024 11:00 AM Michela Petty MA Patient Health Questionnaire-2 Score 0 12/04/2024 11:00 AM Promise Petty MA * Question Answer Date of Assessment Author Trouble falling or staying asleep, or sleeping too much Not at all 12/04/2024 11:00 AM Michela Minaya MA Feeling tired or having little energy Not at all 12/04/2024 11:00 AM Michela Petty MA Poor appetite or overeating Not at all 12/04/2024 11 :00 AM Michela Petty MA Feeling bad about yourself - or that you are a failure or have let yourself or your family down Not at all 12/04/2024 11:00 AM Michela Petty MA Trouble concentrating on things, such as reading the newspaper or watching television Not at all 12/04/2024 11:00 AM Michela Petty MA Moving or speaking so slowly that other people could have noticed? Or the opposite - being so fidgety or restless that you have been moving around a lot more than usual. Not at all 12/04/2024 11:00 AM Michela Castro MA Thoughts that you would be better off or hurting yourself in some way Not at all 12/04/2024 11:00 AM Deangelo Petty MA Patient Health Questionnaire-9 Score 0 12/04/2024 11:00 AM Promise Petty MA documented as of this encounter Plan of Treatment Upcoming Encounters Date Type Department Care Team (Late st Contact Info) Description 09/21/2025 8:30 AM EST Office Visit [facility] [address] [place] [address] Lashaun Madison, [address] [place] [address] 12/07/2025 10:00 AM EST Office Visit [facility] [address] [place] [phone] Joyce Loyd, LAZARO [address] [place] [address] documented as of this encounter Visit Diagnoses Not on filedocumented in this encounter Additional Health Concerns Assessment Noted Time PHQ-9 Depression Total Score: 0 12/04/19 11:00 AM EST documented as of this encounter Care Teams Demand Manager Relationship Specialty Start Date End Date Lashaun Madison DO [address] [place] [address] PCP - ACO Reach 03/29/23 Nitish Agrawal DO [address] [place] [address] PCP - General Family Medicine 03/13/23 Elliot Elias MD [address] [facility], [address] [place] [address] Referring Physician Cardiology 12/04/24 Ranjan Ivory MD [address] [place] [address] [place] [address] Referring Physician Podiatry 12/04/24 documented as of this encounter
--- OUTSIDE RECORDS SUMMARY | 2025-04-22 13:54 | XMS_ITS | Clinical Summary ---
Author Organization [facility] Address [address] [place] [address] Phone Care Team Providers Care Shrimp Peeling Machine Operator Name Role Phone Nitish Agrawal DO Primary Care Provider [phone] Allergies Active Allergy Reactions Criticality Noted Date Comments Enrike Inhibitors Unknown 08/31/2023 Medications aspirin 81 mg EC tablet Take 1 tablet (81 mg) by mouth once daily. Active atorvastatin (Lipitor) 20 mg tablet Take 1 tablet (20 mg) by mouth once daily at bedtime. Active canagliflozin (Invokana) 100 mg Take 1 tablet (100 mg) by mouth once daily. Active levothyroxine (Synthroid) 200 mcg tablet Take 1 tablet (200 mcg) by mouth once daily. Active metFORMIN, OSM, (Fortamet) 500 mg 24 hr tablet Take 1 tablet (500 mg) by mouth every 12 hours. Do not crush, chew, or split. Active dapagliflozin propanediol (Farxiga) 5 mg Take 1 tablet (5 mg) by mouth once daily. Active metFORMIN XR 500 mg 24 hr tablet 1 tablet (500 mg) 2 times daily (morning and late afternoon). 03/03/20 24 Active nitroglycerin (Nitrostat) 0.4 mg SL tabletIndications: Arteriosclerotic cardiovascular disease (ASCVD),History of coronary artery bypass graft,Status post angioplasty Place 1 tablet (0.4 mg) under the tongue every 5 minutes if needed for chest pain. 100 tablet 1 10/15/20 24 Active isosorbide mononitrate ER (Imdur) 60 mg 24 hr tabletIndications: Angina pectoris, unspecified,Hypert ension, unspecified type Take 1 tablet (60 mg) by mouth once daily. 90 tablet 3 12/09/19 25 026 Active Ozempic 2 mg/dose (8 mg/3 mL) pen injector Inject 2 mg under the skin every 7 days. 11/23/19 25 Active fenofibrate (Tricor) 145 mg tabletIndications: Hyperlipidemia, unspecified hyperlipidemia type Take 1 tablet (145 mg) by mouth once daily. 90 tablet 3 03/03/20 25 026 Active carvedilol (Coreg) 6.25 mg tabletIndications: Multiple vessel coronary artery disease,Hypertensi on, unspecified type TAKE 1 TABLET BY MOUTH TWICE A DAY WITH FOOD 180 tablet 3 04/14/20 25 Active carvedilol (Coreg) 6.25 mg tabletIndications: Multiple vessel coronary artery disease,Hypertensi on, unspecified type TAKE 1 TABLET BY MOUTH TWICE A DAY WITH FOOD 180 tablet 3 04/17/20 24 025 Discontinued Active Problems Problem Noted Date Diagnosed Date Ischemic cardiomyopathy 01/28/2025 Palpitations 01/28/2025 Tachycardia 01/28/2025 Body mass index (BMI) of 28.0 to 28.9 in adult 0 01/29/2024 Never smoked tobacco 01/29/2024 Abnormal stress test 08/31/2023 Angina pectoris 08/31/2023 Diabetes mellitus (Multi) 08/31/2023 History of coronary artery bypass graft 08/31/20 23 Hyperlipidemia 08/31/2023 Hypertension 08/31/2023 Multiple vessel coronary artery disease 08/31/20 23 Status post angioplasty 08/31/2023 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 CHF (NYHA class II, ACC/AHA stage C) (Multi) Chronic myocardial ischemia 08/31/2023 Encounters Date Type Department Care Team Description 04/11/2025 Refill [place] [id number] [address] Zach Elias, Multiple vessel coronary artery disease; Hypertension, unspecified type 03/17/[address] [place] [address] Franchesca Adan LPN 03/17/[address] [address] Cristin Fulton RN 03/01/[address] [address] Zach Elias, DO Hyperlipidemia, unspecified hyperlipidemia type 02/23/2025 8:09 AM EDT - 02/23/2025 11:59 PM EDT Hospital Encounter [address] [address] Discharge Disposition: Home 02/23/2025 8:09 AM EDT - 02/23/2025 11:59 PM EDT Hospital Encounter [address] [address] Discharge Disposition: Home 02/23/2025 8:09 AM EDT - 02/23/2025 11:59 PM EDT Hospital Encounter [address] [address] Discharge Disposition: Home 02/23/2025 8:09 AM EDT - 02/23/2025 11:59 PM EDT Hospital Encounter [address] [address] Discharge Disposition: Home 02/23/2025 8:09 AM EDT - 02/23/2025 11:59 PM EDT Hospital Encounter [address] [address] Arteriosclerotic cardiovascular disease (ASCVD); History of coronary artery bypass graft; Status post angioplasty; Angina pectoris; Palpitations; Tachycardia Discharge Disposition: Home 02/22/2025 Travel 02/19/2025 Travel 02/17/[address] [place] [address] BenewahFranchesca gordonROSLYN 01/30/2025 8:00 AM EDT Ancillary Procedure [address] [address] Angina pectoris; Palpitations; Tachycardia 01/30/2025 Travel 01/28/2025 9:50 AM EDT Office Visit [address] [address] Zach Elias, Arteriosclerotic cardiovascular disease (ASCVD); History of coronary artery bypass graft; Status post angioplasty; Ischemic cardiomyopathy; Angina pectoris; Palpitations; Tachycardia; Mixed hyperlipidemia; Other specified diabetes mellitus with other specified complication, with long-term current use of insulin; Body mass index (BMI) of 28.0 to 28.9 in adult; Never smoked tobacco; ACC/AHA stage C congestive heart failure due to ischemic cardiomyopathy 01/28/2025 Travel from Last 3 Months Immunizations Immunization Administration Dates Next Due Pfizer Purple Cap SARS-CoV-2 09/02/2021,02/07/20,01/16/2021 Pneumococcal polysaccharide vaccine, 23-valent, age 2 years and older (PNEUMOVAX 23) 08/25/2021,11/05/2017,08/05/2010 Zoster, Unspecified 11/22/2020,08/29/2020 Family History Medical History Relation Name Comments Heart failure Brother Relation Name Status Comments Brother Social History Tobacco Use Types Packs/Day Years Used Date Smoking Tobacco: Never Smokeless Tobacco: Never Alcohol Use Standard Drinks/Week Comments Never 0 (1 standard drink = 0.6 oz pur e alcohol) Sex and Gender Information Value Date Recorded Sex Assigned at Male 09/23/2024 10:48 AM EST Legal Sex Male 4:11 AM EST Gender Identity Male 09/23/2024 10:48 AM EST Sexual Orientation Not on file Last Filed Vital Signs Vital Sign Reading Time Taken Comments Blood Pressure 136/86 02/23/2025 9:20 AM EDT Pulse 76 02/23/2025 9:20 AM EDT Temperature - - Respiratory Rate - - Oxygen Saturation - - Inhaled Oxygen Concentration - - Weight 98.6 kg (217 lb 6.4 oz) 01/28/2025 10:05 AM EDT Height 185.4 cm (6' 1 ) 01/28/2025 10:05 AM EDT Body Mass Index 28.68 01/28/2025 10:05 AM EDT Plan of Treatment Upcoming Encounters Date Type Department Care Team (Late st Contact Info) Description 08/04/2025 11:10 AM EDT Office Visit [facility] [address] [facility] [address] [place] [address] Zach Elias DO [address] [facility] [address] [place] [address] Health Maintenance Due Date Last Done Comments CT Colonography 1955 Colonoscopy 1955 Creatinine Level 1955 Diabetes: Hemoglobin A1C 1955 Echocardiogram 1955 FIT 1955 Medicare Annual Wellness Visit (AWV) 1955 Potassium Level 1955 Sigmoidoscopy 1955 Diabetes: Retinopathy Screening 02/07/1966 Hepatitis C Screening 02/07/1974 DTaP/Tdap/Td Vaccines (1 - Tdap) 02/07/1978 Zoster Vaccines (1 of 2) 02/07/2006 11/22/2020, 08/06 COVID-19 Vaccine ( season) 2025 08/04/2024, 08/09/2023, 08/02/2022, Additional history exists Colorectal Cancer Screening 03/27/2025 FIT-DNA (Cologuard) 03/27/2025 03/27/2022 Diabetes: Urine Protein Screening 12/01/2025 12/01/2024 Lipid Panel 12/01/2025 12/01/2024 TSH Level 12/01/2025 12/01/2024 RSV High Risk: (Elderly (60+) or Population) Completed 08/09/2023 Influenza Vaccine Completed 08/04/2024, , 08/02/2022, Additional history exists Pneumococcal Vaccine Completed 12/04/2024, 08/25/2021, 11/05/2017, Additional history exists HIB Vaccines Aged Out No longer eligi ble based on patient's age to complete this topic HPV Vaccines Aged Out No longer eligi ble based on patient's age to complete this topic Hepatitis A Vaccines Aged Out No long er eligible based on patient's age to complete this topic Hepatitis B Vaccines Aged Out No long er eligible based on patient's age to complete this topic IPV Vaccines Aged Out No longer eligi ble based on patient's age to complete this topic Meningococcal Vaccine Aged Out No mela celia eligible based on patient's age to complete this topic Rotavirus Vaccines Aged Out No longer eligible based on patient's age to complete this topic Procedures Procedure Name Priority Date/Time Associated Diagnosis Comments STRESS TEST, REGADENOSON W MYOCARDIAL PERFUSION SPECT (MULTI STUDY) Routine 02/23/2025 10:25 AM EDT 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 Status post angioplasty Angina pectoris Palpitations Tachycardia CARDIAC EVENT MONITOR CONTINUOUS UP TO 30 DAYS - HOOK-UP, PHYSICIAN READ Routine 01/30/2025 8:15 AM EDT Angina pectoris Palpitations Tachycardia from Last 3 Months Results * STRESS TEST, REGADENOSON W MYOCARDIAL PERFUSION SPECT (MULTI STUDY) (02/23/2025 10:25 AM EDT) Anatomical Region Laterality Modality Nuclear Medicine 02/23/2025 6:22 PM EDT 02/23/2025 6:22 PM EDT Impressions 02/23/2025 6:21 PM EDT Abnormal Lexiscan Myoview cardiac perfusion stress test. [...] 40% up to 45%. Signed by: Erika Carrion 02/23/2025 6:21 PM Dictation workstation: [id number] Narrative 02/23/2025 6:21 PM EDT Interpreted By: Erika Carrion, and Maine Lopez STUDY: MYOCARDIAL PERFUSION STRESS TEST WITH LEXISCAN Performing facility: [facility], [address], [address], [place] [address] [facility] Provider: Ratna Elias DO, [facility] PCP: Dr. Vineet Agrawal Supervising provider: Yamilka Rebollar MD, [facility] INDICATION: Signs/Symptoms:h/o pci, angina 2-3, palps, tachy. ,I25.10 Atherosclerotic heart disease of citizen [place] coronary artery without angina pectoris,Z95.1 Presence of [...] 1992. COMPARISON: Previous nuclear testing completed at [facility]. ACCESSION NUMBER(S): [id number] ORDERING CLINICIAN: ZACH ELIAS TECHNIQUE: ONE DAY protocol. Stress injection: Date:06-25-25, 33.9 mCi of Myoview IV 20 seconds after rapid injection of Lexiscan. Rest injection: Date: 06-25-25, 10.3 mCi of Myoview IV at rest. The patient had a rapid injection of 0.4 mg of Lexiscan IV over 10 seconds. Imaging was performed by gated tomographic technique. Reason for Lexiscan: dizziness/unsteady/fall risk STRESS TEST DATA: Resting heart rate [...] There was evidence of inferoapical attenuation artifact. Procedure Note Erika Carrion MD - 02/23/2025 Interpreted By: Erika Carrion and Maine Lopez STUDY: MYOCARDIAL PERFUSION STRESS TEST WITH LEXISCAN Performing facility: [facility], [address] [place] [address], [address], [place], [place] [address] Provider: Ratna Elias DO, [facility] PCP: Dr. Vineet Agrawal Supervising provider: Yamil[facility]bollar MD, [facility] INDICATION: Signs/Symptoms:h/o pci, angina 2-3, palps, tachy. ,I25.10 Atherosclerotic heart disease of citizen [place] coronary artery without angina pectoris,Z95.1 Presence of [...] 1992. COMPARISON: Previous nuclear testing completed at [facility]. ACCESSION NUMBER(S): [id number] ORDERING CLINICIAN: ZACH ELIAS TECHNIQUE: ONE DAY protocol. Stress injection: Date:06-25-25, 33.9 mCi of Myoview IV 20 seconds after rapid injection of Lexiscan. Rest injection: Date: 06-25-25, 10.3 mCi of Myoview IV at rest. The patient had a rapid injection of 0.4 mg of Lexiscan IV over 10 seconds. Imaging was performed by gated tomographic technique. Reason for Lexiscan: dizziness/unsteady/fall risk STRESS TEST DATA: Resting heart rate [...] 40% up to 45%. Signed by: Erika Carrion 02/23/2025 6:21 PM Dictation workstation: [id number] Zach Elias DO CV STRESS PROCEDURES Final Result * CARDIAC EVENT MONITOR CONTINUOUS UP TO 30 DAYS - HOOK-UP, PHYSICIAN READ (01/30/2025 8:15 AM EDT) Narrative [facility] - 02/11/2025 5:41 PM EDT 1 week event monitor applied on 01/30/2025 and was removed on 02/06/2025. 5 tracings were sent for review all demonstrated normal sinus rhythm with a heart rate between 73 and 98 bpm and with isolated PVCs. No symptoms were reported Zach Elias DO CV CARDIAC SERVICES PROCEDU RES Final Result [facility] from Last 3 Months Insurance [facility] MEDICARE SUPPLEMENT MEDICARE PART A AND B Care Teams Shrimp Peeling Machine Operator Relationship Specialty Start Date End Date Nitish Agrawal DO [address] [place] [address] PCP - General 09/18/19
--- OUTSIDE RECORDS SUMMARY | 2025-04-22 13:54 | XMS_ITS | Encounter Summary ---
Author Organization [facility] Address [address] [place] [address] Care Team Providers Care Drag Car Racer Name Role Phone Lashaun Madison DO Unavailable [phone] Nitish Agrawal DO Primary Care Provider [phone] Elliot Elias MD Unavailable [phone] Ranjan Ivory MD Unavailable [phone] Encounter Details Date Type Department Care Team (Late st Contact Info) Description 04/09/2023 Orders Only [facility] [address] [place] [address] Nitish Agrawal DO [address] [place] [address] Social History Tobacco Use Types Packs/Day Years Used Date Smoking Tobacco: Never Assessed Sex and Gender Information Value Date Recorded Sex Assigned at Not on file Legal Sex Male 7:07 PM EDT Gender Identity Not on file Sexual Orientation Not on file documented as of this encounter Plan of Treatment Upcoming Encounters Date Type Department Care Team (Late st Contact Info) Description 09/21/2025 8:30 AM EST Office Visit [facility] [address] [place] [address] Lashaun Madison DO [address] [place] [address] 12/07/2025 10:00 AM EST Office Visit [facility] [address] [place] [address] Joyce Loyd, BOAT FUELER [address] [facility] [address] [place] [address] documented as of this encounter Procedures Procedure Name Priority Date/Time Associated Diagnosis Comments XR FOOT 3+ VIEWS RIGHT Routine 04/09/2023 3:27 PM EDT documented in this encounter Results * XR FOOT 3+ VIEWS RIGHT (04/09/2023 3:27 PM EDT) Anatomical Region Laterality Modality Radiographic Kelly ging Nitish Agrawal DO IMG XR PROCEDURES Final Result documented in this encounter Visit Diagnoses Not on filedocumented in this encounter Care Teams Drag Car Racer Relationship Specialty Start Date End Date Lashaun Madison DO [address] [facility] [address] [place] [address] PCP - ACO Reach 03/29/23 Nitish Agrawal DO [address] [facility] [address] [place] [address] PCP - General Family Medicine 03/13/23 Elliot Elias MD [address] [facility] [address], [facility] [address] [place] [address] Referring Physician Cardiology 12/04/24 Ranjan Ivory MD [address] [place] [address] [place] [address] Referring Physician Podiatry 12/04/24 documented as of this encounter
--- OUTSIDE RECORDS SUMMARY | 2025-04-22 13:54 | XMS_ITS ---
Author Organization [facility] Care Team Providers Care Director Dance Name Role Phone FLOYD LÓPEZ Unavailable Unavailable Allergies and adverse reactions No Known Allergies Care Team Name Role Address Phone Organization Dates FLOYD [facility] [address] [place], [address], [place] (Office): : [facility] 03/29/2016 - 04/02/2016 Mental Status Section Date Assessment Total Score Description 04/02/2016 BIMS 15 cognitively int act PHQ-9 00 04/02/2016 BIMS 15 cognitively int act PHQ-9 00 Problems Problem # Description Date of onset Resolved Date Code CodeSystem Concern Status 1 DIFFICULTY IN WALKING, NOT ELSEWHERE CLASSIFIED 03/29/[address] active 2 MUSCLE WEAKNESS (GENERALIZED) 03/29/[address] active 3 OTHER REDUCED MOBILITY 03/29/[address] active Reason for Referral No Reasons for Referral Entered Social History Social History Observation Description Start Date End Date Code Code System Current Smoking Status Tobacco smoking consumption unknown 596690836 SNOMED CT Sex Assigned At Male 1955 [address]-2 [facility] Gender Identity Vital Signs Code Code System Vitals Name Values and Units Timing Information 9279-1 LOINC Respiratory Rate Value=18.0 Units=/m in 04/02/2016 8310-5 LOINC Body Temperature Value=98.0 Units= F 04/02/2016 70546-2 LOINC O2 % BldC Oximetry Value=98.0 Units= % 04/02/2016 8462-4 [facility] Blood Pressure-Diastolic Value=78 Un its=mmHg 04/02/2016 8480-6 [facility] Blood Pressure-Systolic Odxod=312 Un its=mmHg 04/02/2016 8867-4 [facility] Heart rate Value=86.0 Units=/min 45918-7 [facility] Pain Level Value=5.0 04/01/2016 8302-2 [facility] Height Value=73.0 Units=Inches 03/30/2016 26583-4 [facility] Weight Ljhyk=127.3 Units=Lbs
--- OUTSIDE RECORDS SUMMARY | 2025-04-22 13:54 | XMS_ITS | Encounter Summary ---
Author Organization [facility] Address [address] [place] [address] Phone Care Team Providers Care Automobile Body Worker Name Role Phone Nitish Agrawal DO Primary Care Provider [phone] Encounter Details Date Type Department Care Team (Late st Contact Info) Description 06/09/2022 Orders Only [facility] [address] [place] [address] Conversion, Onbase Social History Tobacco Use Types Packs/Day Years Used Date Smoking Tobacco: Never Assessed Sex and Gender Information Value Date Recorded Sex Assigned at Male 09/23/2024 10:48 AM EST Legal Sex Male 4:11 AM EST Gender Identity Male 09/23/2024 10:48 AM EST Sexual Orientation Not on file documented as of this encounter Plan of Treatment Upcoming Encounters Date Type Department Care Team (Late st Contact Info) Description 08/04/2025 11:10 AM EDT Office Visit [facility] [address] [facility] [address] [place] [address] Martin Elias DO [address], [address] [place] [address] Scheduled Orders Name Type Priority Associated Diagnoses Orde r Schedule OUTSIDE LAB SCAN Lab Ordered: 06/09/2022 documented as of this encounter Visit Diagnoses Not on filedocumented in this encounter Care Teams Automobile Body Worker Relationship Specialty Start Date End Date Nitish Agrawal DO [address] [place] [address] PCP - General 09/18/19 documented as of this encounter
--- OUTSIDE RECORDS SUMMARY | 2025-04-22 13:54 | XMS_ITS | Encounter Summary ---
Author Organization [facility] Address [address] [place] [address] Care Team Providers Care Coroner Technician Name Role Phone Lashaun Madison Judie DO Unavailable [phone] Nitish Agrawal DO Primary Care Provider [phone] Elliot Elias MD Unavailable [phone] Ranjan Ivory MD Unavailable [phone] Encounter Details Date Type Department Care Team (Late st Contact Info) Description 10/15/2023 Abstract [facility] [address] [place] [id number] Kiel Lozano, DPM [address] [place], [place] [id number] Social History Tobacco Use Types Packs/Day Years [...] 09/21/2025 8:30 AM EST Office Visit [facility] [address] [place] [address] Lashaun Madison, DO [address] [place] [address] 12/07/2025 10:00 AM EST Office Visit [facility] [address] [place] [address] Joyce Loyd, LEAD DATA ARCHITECT [address] [place] [address] documented as of this encounter Visit Diagnoses Not on filedocumented in this encounter Care Teams Coroner Technician Relationship Specialty Start Date End Date Lashaun Madison, DO [address] [place] [address] PCP - ACO Reach 03/29/23 Nitish Agrawal DO [address] [place] [address] PCP - General Family Medicine 03/13/23 Elliot Elias MD [address] [facility] [address], [address] [place] [address] Referring Physician Cardiology 12/04/24 Ranjan Ivory MD [address] [place] [address] [place] [address] Referring Physician Podiatry 12/04/24 documented as of this encounter
--- OUTSIDE RECORDS SUMMARY | 2025-04-22 13:54 | XMS_ITS | Clinical Summary ---
Author Organization [facility] Address [id number] [place] [address] Care Team Providers Care Director Professional Services Name Role Phone Brittany York Primary Care Provider [phone] Social History Tobacco Use Types Packs/Day Years Used Date Smoking Tobacco: Never Assessed Childcare Answer Date Recorded Childcare Unknown 01/12/2021 Employment Answer Date Recorded Employment Unknown 01/12/2021 Purpose - Life Answer Date Recorded Purpose and direction in life Unknown Sex and Gender Information Value Date Recorded Sex Assigned at Not on file Legal Sex Male 11:41 AM EDT Gender Identity Not on file Sexual Orientation Not on file Plan of Treatment Health Maintenance Due Date Last Done Comments Depression Screening 1967 Tobacco Screening 1967 Adult BMI Screening 02/07/1974 DTaP,Tdap and Td Vaccines (1 - Tdap) 02/07/1975 Zoster (Shingles) Vaccine (1 of 2) 02/07/2006 Fall Risk Screening 02/07/2021 Influenza Vaccine 07/06/2025 Medical Devices Not on file Care Teams Director Professional Services Relationship Specialty Start Date End Date Brittany York APRN-CNP [address] [place] [address] PCP - General Family Medicine 01/12/21
--- OUTSIDE RECORDS SUMMARY | 2025-04-22 13:54 | XMS_ITS | Encounter Summary ---
Author Organization [facility] Address [address] [place] [address] Care Team Providers Care Wound Care Technician Name Role Phone Lashaun Madison DO Unavailable [phone] Nitish Agrawal DO Primary Care Provider [phone] Elliot Elias MD Unavailable [phone] Ranjan Ivory MD Unavailable [phone] Encounter Details Date Type Department Care Team (Late st Contact Info) Description 07/19/2023 Abstract [facility] [address] [place] [phone] Kiel Lozano, DPM [address] [place] [address] Social History Tobacco Use Types Packs/Day Years [...] Visit [facility] [address] [facility] [address] [place] [address] Lashaun Madison DO [address] [facility] [address] [place] [address] 12/07/2025 10:00 AM EST Office Visit [facility] [address] [place] [address] Joyce Loyd, BATCH MIXER OPERATOR [address] [place] [address] documented as of this encounter Visit Diagnoses Not on filedocumented in this encounter Care Teams Wound Care Technician Relationship Specialty Start Date End Date Lashaun Madison DO [address] [place] [address] PCP - ACO Reach 03/29/23 Nitish Agrawal DO [address] [place] [address] PCP - General Family Medicine 03/13/23 Elliot Elias MD [address] [place] [address] [address], [address] [place] [address] Referring Physician Cardiology 12/04/24 Ranjan Ivory MD [address] [place] [address] [place] [address] Referring Physician Podiatry 12/04/24 documented as of this encounter
--- OUTSIDE RECORDS SUMMARY | 2025-04-22 13:54 | XMS_ITS | Encounter Summary ---
Author Organization [facility] Address [address] [place] [address] Phone Care Team Providers Care Fleet Maintenance Manager Name Role Phone Nitish Agrawal DO Primary Care Provider [phone] Encounter Details Date Type Department Care Team (Late st Contact Info) Description 11/07/2021 Orders Only [facility] [address] [place] [address] Conversion, Onbase Social History Tobacco Use Types [...] Description 08/04/2025 11:10 AM EDT Office Visit [facility] [address] [facility] [address] [place] [address] Martin Elias DO [address], [address] [place] [address] Scheduled Orders Name Type Priority Associated Diagnoses Orde r Schedule OUTSIDE LAB SCAN Lab Ordered: 11/07/2021 documented as of this encounter Visit Diagnoses Not on filedocumented in this encounter Care Teams Fleet Maintenance Manager Relationship Specialty Start Date End Date Nitish Agrawal DO [address] [place] [address] PCP - General 09/18/19 documented as of this encounter
--- OUTSIDE RECORDS SUMMARY | 2025-04-22 13:54 | XMS_ITS | Encounter Summary ---
Author Organization [facility] Address [address] [place] [address] Phone Care Team Providers Care Supreme Court Judge Name Role Phone Tanja Nitish Crump DO Primary Care Provider [phone] Reason for Visit * Reason Comments Med Refill Encounter Details Date Type Department Care Team (Late st Contact Info) Description 04/11/[address] [place] [phone] Martin Elias DO [address] [place] [address] [address], [address] [place] [address] Multiple vessel coronary artery disease; Hypertension, unspecified type Social History Tobacco Use Types Packs/Day Years [...] Description 08/04/2025 11:10 AM EDT Office Visit [address] [place] [address] Martin Elias DO [address] [facility] 2, [address] [place] [address] documented as of this encounter Visit Diagnoses Diagnosis Multiple vessel coronary artery disease Hypertension, unspecified type documented in this encounter Additional Health Concerns Assessment Noted Time A fall risk assessment has been complete d for the patient 01/29/2024 2:36 PM EDT documented as of this encounter Care Teams Supreme Court Judge Relationship Specialty Start Date End Date Nitish Agrawal DO [address] [place] [phone] PCP - General 09/18/19 documented as of this encounter
--- OUTSIDE RECORDS SUMMARY | 2025-04-22 13:54 | XMS_ITS | Encounter Summary ---
Author Organization [facility] Address [address] [place] [address] Care Team Providers Care Salicylic Acid Blender Name Role Phone Lashaun Madison DO Unavailable [phone] Nitish Agrawal DO Primary Care Provider [phone] Elliot Elias MD Unavailable [phone] Ranjan Ivory MD Unavailable [phone] Encounter Details Date Type Department Care Team (Late st Contact Info) Description 06/30/2023 Abstract [facility] [address] [place] [phone] Kiel Lozano, DPM [address] [place], [place] [id number] Social History Tobacco Use Types Packs/Day Years Used Date Smoking Tobacco: Never Tobacco Cessation:Counseling Given: Not Answered Alcohol Use Standard Drinks/Week Comments Never 0 [...] Visit [facility] [address] [facility] [address] [place] [phone] Lashaun Madison DO [address] [facility] 230 [place] [address] 12/07/2025 10:00 AM EST Office Visit [facility] [address] [place] [address] Joyce Loyd, REFRIGERATING ENGINEER [address] [place] [address] documented as of this encounter Visit Diagnoses Not on filedocumented in this encounter Care Teams Salicylic Acid Blender Relationship Specialty Start Date End Date Lashaun Madison DO [address] [place] [address] PCP - ACO Reach 03/29/23 Nitish Agrawal DO [address] [place] [address] PCP - General Family Medicine 03/13/23 Elliot Elias MD [address] [place] [address] 2, [address] [place] [address] Referring Physician Cardiology 12/04/24 Ranjan Ivory MD [address] [place] [address] [place] [address] Referring Physician Podiatry 12/04/24 documented as of this encounter
--- OUTSIDE RECORDS SUMMARY | 2025-04-22 13:54 | XMS_ITS | Encounter Summary ---
Author Organization [facility] Address [address] [place] [address] Phone Care Team Providers Care Geothermal Sheet Metal Worker Name Role Phone Nitish Agrawal DO Primary Care Provider [phone] Encounter Details Date Type Department Care Team (Late st Contact Info) Description 03/07/2021 Orders Only [facility] [address] [place] [address] Conversion, Onbase Social History Tobacco Use Types [...] Description 08/04/2025 11:10 AM EDT Office Visit [facility] [address] [facility] [address] [place] [address] Martin Elias DO [address], [address] [place] [address] Scheduled Orders Name Type Priority Associated Diagnoses Orde r Schedule OUTSIDE LAB SCAN Lab Ordered: 03/07/2021 documented as of this encounter Visit Diagnoses Not on filedocumented in this encounter Care Teams Geothermal Sheet Metal Worker Relationship Specialty Start Date End Date Nitish Agrawal DO [address] [place] [address] PCP - General 09/18/19 documented as of this encounter
--- OUTSIDE RECORDS SUMMARY | 2025-04-22 13:54 | XMS_ITS | Encounter Summary ---
Author Organization [facility] Address [address] [place] [address] Care Team Providers Care Music Industry Internship Name Role Phone Lashaun Madison DO Unavailable [phone] Nitish Agrawal DO Primary Care Provider [phone] Elliot Elias MD Unavailable [phone] Ranjan Ivory MD Unavailable [phone] Encounter Details Date Type Department Care Team (Late st Contact Info) Description 07/30/2023 Abstract [facility] [address] [place] [phone] Kiel Lozano, DPM [address] [place] [address] Social History Tobacco Use Types Packs/Day Years [...] [facility] [address] [place] [address] Lashaun Madison DO [address] [facility] 230 [place] [address] 12/07/2025 10:00 AM EST Office Visit [facility] [address] [place] [address] Joyce Loyd, DELINQUENT TAX COLLECTOR [address] [place] [address] documented as of this encounter Visit Diagnoses Not on filedocumented in this encounter Care Teams Music Industry Internship Relationship Specialty Start Date End Date Lashaun Madison DO [address] [place] [address] PCP - ACO Reach 03/29/23 Nitish Agrawal DO [address] [place] [address] PCP - General Family Medicine 03/13/23 Elliot Elias MD [address] [place] [address] [address], [address] [place] [address] Referring Physician Cardiology 12/04/24 Ranjan Ivory MD [address] [place] [address] [place] [address] Referring Physician Podiatry 12/04/24 documented as of this encounter
--- OUTSIDE RECORDS SUMMARY | 2025-04-22 13:54 | XMS_ITS | Encounter Summary ---
Author Organization [facility] Address [address] [place] [address] Care Team Providers Care Drawer In Hand Name Role Phone Lashaun Madison DO Unavailable [phone] Nitish Agrawal DO Primary Care Provider [phone] Elliot Elias MD Unavailable [phone] Ranjan Ivory MD Unavailable [phone] Encounter Details Date Type Department Care Team (Late st Contact Info) Description 02/19/2024 Abstract [facility] [address] [facility] 230 [place] [address] Lashaun Madison, [address] [facility] 230 [place] [address] Social History Tobacco Use Types Packs/Day Years [...] 09/21/2025 8:30 AM EST Office Visit [facility] [address] [place] [address] Lashaun Madison, DO [address] [place] [address] 12/07/2025 10:00 AM EST Office Visit [facility] [address] [place] [address] Joyce Loyd, BEAM WARPER [address] [place] [address] documented as of this encounter Visit Diagnoses Not on filedocumented in this encounter Care Teams Drawer In Hand Relationship Specialty Start Date End Date Lashaun Madison, DO [address] [place] [address] PCP - ACO Reach 03/29/23 Nitish Agrawal DO [address] [place] [address] PCP - General Family Medicine 03/13/23 Elliot Elias MD 703 [facility] 2, [address] [place] [address] Referring Physician Cardiology 12/04/24 Ranjan Ivory MD [address] [place] [address] [place] [address] Referring Physician Podiatry 12/04/24 documented as of this encounter
--- OUTSIDE RECORDS SUMMARY | 2025-04-22 13:54 | XMS_ITS | Encounter Summary ---
Author Organization [facility] Address [address] [place] [address] Care Team Providers Care Thermospray Operator Name Role Phone Lashaun Madison DO Unavailable [phone] Nitish Agrawal DO Primary Care Provider [phone] Elliot Elias MD Unavailable [phone] Ranjan Ivory MD Unavailable [phone] Reason for Visit * Reason Comments Med Refill Encounter Details Date Type Department Care Team (Late st Contact Info) Description 03/04/2024 Refill [facility] [address] [facility] [address] [place] [phone] Lashaun Madison, DO [address] [facility] 230 [place] [address] Type 2 diabetes mellitus with other circulatory complications (HCC) Social History Tobacco Use Types Packs/Day Years [...] on file documented as of this encounter Miscellaneous Notes * Telephone Encounter - Imani Ritchie LPN - 03/04/2024 4:53 PM EDT Was sent yesterday. Received confirmation: Receipt confirmed by pharmacy (03/03/2024 9:08 AM EDT) documented in this encounter Plan of Treatment Upcoming Encounters Date Type Department Care Team (Late st Contact Info) Description 09/21/2025 8:30 AM EST Office Visit [facility] [address] [place] [address] Lashaun Madison DO [address] [place] [address] 12/07/2025 10:00 AM EST Office Visit [facility] [address] [place] [phone] Joyce Loyd, READING RECOVERY TEACHER [address] [place] [address] documented as of this encounter Visit Diagnoses Diagnosis Type 2 diabetes mellitus with other circulatory complications (HCC) documented in this encounter Care Teams Thermospray Operator Relationship Specialty Start Date End Date Lashaun Madison DO [address] [place] [address] PCP - ACO Reach 03/29/23 Nitish Agrawal DO [address] [place] [address] PCP - General Family Medicine 03/13/23 Elliot Elias MD [facility] 2, [address] [place] [address] Referring Physician Cardiology 12/04/24 Ranjan Ivory MD [address] [place] [address] Dr LUCAS Diboll, [id number] Referring Physician Podiatry 12/04/24 documented as of this encounter
--- OUTSIDE RECORDS SUMMARY | 2025-04-22 13:54 | XMS_ITS | Clinical Summary ---
Author Organization [facility] Address [address] [place] [address] Care Team Providers Care In House Cra Name Role Phone Lashaun Madison Judie RICH Unavailable [phone] Nitish Agrawal DO Primary Care Provider [phone] Elliot Queen MD Unavailable [phone] Ranjan Ivory MD Unavailable [phone] Allergies No known active allergies Medications isosorbide mononitrate ER (Imdur) 60 MG 24 hr tablet Take 60 mg by mouth in the morning. Do not crush or chew. . Active fenofibrate (Tricor) 145 MG tablet Take 145 mg by mouth in the morning. Active carvedilol (Coreg) 6.25 MG tablet Take 6.25 mg by mouth in the morning and 6.25 mg in the evening. Take with meals. Active aspirin 81 MG EC tablet Take 81 mg by mouth in the morning. Active clopidogrel (Plavix) 75 MG tablet Take 75 mg by mouth in the morning. Active nitroglycerin (Nitrostat) 0.[address] 0.4 mg under the tongue every 5 (five) minutes if needed for chest pain. Active Blood Glucose Monitoring Suppl (ClickPay ServicesToScan•Jour Verio Flex System) w/Device kit Active glucose blood (OneTouch Verio) test stripIndications:Ty pe 2 diabetes mellitus with other circulatory complications (HCC) Fsbs daily 100 strip 4 4 Active OneTouch Delica Lancets 33G miscIndications:Typ e 2 diabetes mellitus with other circulatory complications (HCC) Fsbs daily 100 each 3 4 Active Ciclopirox 1 % shampooIndications: Other seborrheic dermatitis Lather on wet hair, leave on 5 min, rinse 2-3 x week, 30 day supply 120 mL 11 4 Active ciclopirox (Loprox) 0.77 % creamIndications:Ot her seborrheic dermatitis Apply thin layer to affected area once a day, 30 day supply 30 g 11 4 Active levothyroxine (Synthroid, Levoxyl) 200 MCG tabletIndications:O ther specified hypothyroidism TAKE 1 TABLET BY MOUTH EVERY DAY 90 tablet 3 4 Active Semaglutide, 2 MG/DOSE, (Ozempic, 2 MG/DOSE,) 8 MG/3ML solution pen-injectorIndicat ions:Type 2 diabetes mellitus with other circulatory complications (HCC) Inject 2 mg under the skin 1 (one) time per week 9 mL 3 4 Active atorvastatin (Lipitor) 20 MG tabletIndications:M ixed hyperlipidemia TAKE 1 TABLET BY MOUTH EVERY DAY IN THE EVENING FOR 90 DAYS 90 tablet 3 4 Active ammonium lactate (Lac-Hydrin) 12 % lotion APPLY DAILY TO DRY AREAS ON FEET 5 Active sertraline (Zoloft) 50 MG tabletIndications:A nxiety Take 1 tablet (50 mg) by mouth Daily 30 tablet 5 5 07/28/20 25 Active hydrOXYzine HCl (Atarax) 25 MG tabletIndications:A nxiety Take 2 tablets (50 mg) by mouth 2 (two) times a day as needed for anxiety 40 tablet 5 Active metFORMIN XR (Glucophage-XR) 500 MG 24 hr tabletIndications:T ype 2 diabetes mellitus with other circulatory complications (HCC) TAKE 1 TABLET BY MOUTH TWICE A DAY 180 tablet 1 5 Active dapagliflozin (Farxiga) 5 MGIndications:Type 2 diabetes mellitus with other circulatory complications (HCC) TAKE 1 TABLET BY MOUTH EVERY DAY 90 tablet 5 Active Active Problems Problem Noted Date Diagnosed Date Ischemic cardiomyopathy 01/28/2025 Palpitations 01/28/2025 Tachycardia 01/28/2025 Body mass index (BMI) of 28.0 to 28.9 in adult 0 01/29/2024 Never smoked tobacco 01/29/2024 Type 2 diabetes mellitus wit h stage 3a chronic kidney disease, without long-term current use of insulin 12/03/2023 Hypertension 08/31/2023 Hyperlipidemia 08/31/2023 History of coronary artery bypass graft 08/31/20 Abnormal stress test 08/31/2023 Angina pectoris 08/31/2023 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 CHF (NYHA class II, ACC/AHA stage C) 08/31/2023 Chronic myocardial ischemia 08/31/2023 Status post angioplasty 08/31/2023 Multiple vessel coronary artery disease 08/31/20 Diabetes mellitus 08/31/2023 Stage 3a chronic kidney disease (CKD) 08/09/2023 Type 2 diabetes mellitus wit h other circulatory complications 07/12/2023 Assessment & Plan (03/27/2025 9:16 AM EDT): During the appointment today all pertinent labs, [...] if they have any problems or questions. Nick Ford is doing very well and encouraged on this. , Will stay on current medications. Assessment & Plan (12/01/2024 9:35 AM EST): During the appointment today all pertinent labs, [...] if they have any problems or questions. Nick Ford is making improvements and encouraged on this. , Will stay on current medications. , Instructions given today include: Dietary education Assessment & Plan (09/01/2024 12:48 PM EDT): During the appointment today all pertinent labs, [...] if they have any problems or questions. Nick Ford blood sugars are worsening. , Discussed dietary changes at length. Encouraged to limit simple carbs and focus more on healthy protein/fat with all meals and snacks. They should also avoid any sugary drinks. , Instructions given today include: Dietary education. Will increase ozempic. He is going to also work on improving his diet. Assessment & Plan (06/02/2024 9:50 AM EDT): During the appointment today all pertinent labs, [...] if they have any problems or questions. Nick Ford control is stable overall. , Will stay on current medications. , Discussed dietary changes at length. Encouraged to limit simple carbs and focus more on healthy protein/fat with all meals and snacks. They should also avoid any sugary drinks. , Instructions given today include: Dietary education. He needs to limit simple carbs. Assessment & Plan (03/03/2024 9:51 AM EDT): During the appointment today all pertinent labs, [...] if they have any problems or questions. Nick Ford is making improvements and encouraged on this. , Discussed dietary changes at length. Encouraged to limit simple carbs and focus more on healthy protein/fat with all meals and snacks. They should also avoid any sugary drinks. , Instructions given today include: Dietary education. Will change him to ozempic due to the struggle with getting mounjaro/trulicity. Assessment & Plan (12/03/2023 8:05 PM EST): During the appointment today all pertinent labs, [...] if they have any problems or questions. Nick Ford is struggling to gain control of their diabetes. I am very concerned for diabetes related complications. , Will stay on current medications. , Discussed dietary changes at length. Encouraged to limit simple carbs and focus more on healthy protein/fat with all meals and snacks. They should also avoid any sugary drinks. , Instructions given today include: Dietary education. Will change from trulicity to mounjaro when he runs out of trulicity to see if this works better for him. He is to contact me when he runs low on trulicity. Assessment & Plan (08/06/2023 3:37 PM EDT): During the appointment today all pertinent labs, [...] if they have any problems or questions. Nick Ford is struggling to gain control of their diabetes. I am very concerned for diabetes related complications. , Will stay on current medications. , Discussed dietary changes at length. Encouraged to limit simple carbs and focus more on healthy protein/fat with all meals and snacks. They should also avoid any sugary drinks. , Instructions given today include: Dietary education. He really needs to improve control of his diet and increase activity. Will stay on current meds for now. Anemia, unspecified 03/29/2016 Atherosclerotic heart diseas e of [place] coronary artery without angina pectoris 03/29/2016 Gastro-esophageal reflux disease without esophag itis 03/29/2016 Osteoarthritis of knee, unspecified 03/29/2016 Difficulty in walking, not elsewhere classified 03/29/2016 Muscle weakness (generalized) 03/29/2016 Other reduced mobility 03/29/2016 Diabetes mellitus due to und erlying condition with unspecified complications 03/29/2016 Difficulty walking 03/29/2016 Muscle weakness 03/29/2016 Reduced mobility 03/29/2016 Encounters Date Type Department Care Team Description 03/27/2025 8:45 AM EDT Office Visit [facility] [address] [place] [address] Lashaun Madison, DO Type 2 diabetes mellitus with stage 3a chronic kidney disease, without long-term current use of insulin (HCC); Type 2 diabetes mellitus with other circulatory complications (HCC) 03/27/2025 Orders Only [facility] [address] [place] [address] Joyce Loyd NP Colon cancer screening (Primary Dx) 03/27/2025 Travel 03/01/2025 Refill [facility] [address] [place] [address] Lashaun Madison, DO Type 2 diabetes mellitus with other circulatory complications (HCC) 02/25/2025 Refill [facility] [address] [place] [address] Lashaun Madison, Type 2 diabetes mellitus with other circulatory complications (HCC) 02/23/2025 Clinisync Result Encounter [facility] External Department Unsolicited Provider, Generic External Data 01/29/2025 8:40 AM EDT Office Visit [facility] [address] [place] [address] Robin Caicedo PA Anxiety (Primary Dx) 01/29/2025 Telephone [facility] [address] [place] [address] Robin Caicedo PA Medication Question 01/29/2025 Bamboo flowsheet [facility] [address] [place] [address] Robin Caicedo PA 01/29/2025 Travel 01/28/2025 Clinisync Result Encounter [facility] External Department Unsolicited Provider, Generic External Data from Last 3 Months Immunizations Immunization Administration Dates Next Due Influenza, High Dose Seasona l, Preservative Free 08/04/2024,09/09/2020 Influenza, High-dose Seasona l, Quadrivalent, Preservative Free 08/02/2022 Influenza, Seasonal, Quadriv alent, Adjuvanted 08/21/2023,08/25/2021 Influenza, injectable, MDCK, preservative free, quadrivalent 08/26/2019 Influenza, injectable, quadr ivalent, preservative free 08/29/2020,09/18/2017 Influenza, seasonal, injectable 09/05/2020 Influenza, seasonal, injecta ble, preservative free 07/24/2011,08/13/2008 Pneumococcal Conjugate PCV 20 12/04/2024 Pneumococcal Polysaccharide PPSV23 08/25/2021,,08/05/2010 RSV, recombinant, protein gtz bunit RSVpreF, adjuvant reconstitu, 120mcg/0.5mL, PF (Arexvy) 08/09/2023 SARS-COV-2 (COVID-19) vaccin e, mRNA, spike protein, LNP, bivalent, preservative free, 30 mcg/0.3 mL dose, nic-sucrose formulation 08/02/2022 Zoster, Recombinant 11/22/2020,08/29/2020 Zoster, Unspecified 11/22/2020,08/29/2020 Family History Medical History Relation Name Comments Diabetes Brother Diabetes Father Heart disease Father Hypertension Father Stroke Father Cancer Mother Kidney disease Mother Lung disease Mother Melanoma Neg Hx Relation Name Status Comments Brother 3 Daughter 1, healthy Father Mother Sister 2, healthy Son 1 Social History Tobacco Use Types Packs/Day Years Used Date Smoking Tobacco: Never Passive Smoke Exposure: Never Smokeless Tobacco: Never Tobacco Cessation:Counseling Given: Yes Alcohol Use Standard Drinks/Week Comments Never 0 [...] Date Recorded Patient Health Questionnaire-2 Score 0 03/27/2025 Sex and Gender Information Value Date Recorded Sex Assigned at Not on file Legal Sex Male 7:07 PM EDT Gender Identity Not on file Sexual Orientation Not on file Last Filed Vital Signs Vital Sign Reading Time Taken Comments Blood Pressure 128/72 03/27/2025 8:46 AM EDT Pulse 67 03/27/2025 8:46 AM EDT Temperature 36.8 C (98.2 F) 03/27/2025 8:46 AM EDT Respiratory Rate - - Oxygen Saturation 97% 03/27/2025 8:46 AM EDT Inhaled Oxygen Concentration - - Weight 97.5 kg (215 lb) 03/27/2025 8:46 AM EDT Height 185.4 cm (6' 1 ) 03/27/2025 8:46 AM EDT Body Mass Index 28.37 03/27/2025 8:46 AM EDT Plan of Treatment Upcoming Encounters Date Type Department Care Team (Late st Contact Info) Description 09/21/2025 8:30 AM EST Office Visit [facility] [address] [place] [address] Lashaun Madison, [address] [place] [address] 12/07/2025 10:00 AM EST Office Visit [facility] [address] [place] [address] GenemartinezJoyce, [employer] [address] [place] [address] Health Maintenance Due Date Last Done Comments CT Colonography 1956 Colonoscopy 1956 FIT 1956 FOBT 1956 Sigmoidoscopy 1956 Diabetes: Retinopathy Screening 06/27/2024 Colorectal Cancer Screening 03/27/2025 FIT-DNA 03/27/2025 03/27/2022, 03/06, 02/19/2019, Additional history exists Diabetes: Hemoglobin A1C 06/27/2025 025, 12/01/2024, 09/01/2024, Additional history exists Diabetes: Urine Protein Screening 12/01/2025 12/01/2024, 12/28/2020, 12/23/2019, Additional history exists Influenza Vaccine Completed 08/04/2024, , 08/02/2022, Additional history exists Pneumococcal Vaccine: 65+ Years Completed 12/04/2024, 08/25/2021, 11/05/2017, Additional history exists Procedures Procedure Name Priority Date/Time Associated Diagnosis Comments POCT GLYCOSYLATED HEMOGLOBIN (HGB A1C) Routine 03/27/2025 8:57 AM EDT Type 2 diabetes mellitus with other circulatory complications (HCC) NUCLEAR STRESS TEST EXERCISE (CARD) 02/23/2025 8:09 AM EDT C-REACTIVE PROTEIN, CARDIAC Routine 01/28/2025 1:24 PM EDT ALL PRO BNP Routine 01/28/2025 1:24 PM EDT ALL BASIC METABOLIC PANEL Routine 01/28/2025 1:24 PM EDT MICROALBUMIN / CREATININE URINE RATIO Routine 12/01/2024 10:03 AM EST Type 2 diabetes mellitus with other circulatory complications (HCC) COLOR FUNDUS PHOTOGRAPHY - OU - BOTH EYES Routine 06/27/2022 12:00 PM EDT LAB COLOGUARD COLON CANCER SCREEN Routine 03/27/2022 from Last 3 Months or Most Recently Relevant to Health Maintenance Results * POCT glycosylated hemoglobin (Hb A1C) docked device (03/27/2025 8:57 AM EDT) Hemoglobin A1C 7.1 Blood Venous blood specimen / Unknown 03/27/2025 8:57 AM EDT Lashaun Madison DO POINT OF CARE TEST ENTER/E DIT ORDERABLES Final Result * NUCLEAR STRESS TEST EXERCISE (CARD) (02/23/2025 8:09 AM EDT) Anatomical Region Laterality Modality Radiographic Kelly ging 02/23/2025 8:09 AM EDT Narrative 02/23/2025 6:21 PM EDT Source Facility: [facility] Interpreted By: Erika Carrion, Sahil Lopez STUDY: MYOCARDIAL PERFUSION STRESS TEST WITH LEXISCAN Performing facility: [facility], [address] [place] [address], [address], [address] Provider: Ratna Queen DO, FACC PCP: Dr. Vineet Agrawal Supervising provider: Yamilka Rebollar MD, FACC INDICATION: Signs/Symptoms:h/o pci, angina 2-3, palps, tachy. ,I25.10 Atherosclerotic heart disease of [place] coronary artery without angina pectoris,Z95.1 Presence of [...] 1992. COMPARISON: Previous nuclear testing completed at [facility]. ACCESSION NUMBER(S): [id number] ORDERING CLINICIAN: ZACH QUEEN TECHNIQUE: ONE DAY protocol. Stress injection: Date:06-25-25, [...] Erika Carrion 02/23/2025 6:21 PM Dictation workstation: [id number] Procedure Note Radiology, Radiologist, - 02/24/2025 Source Facility: [facility] Interpreted By: Erika Carrion and Giannuzzi Michael STUDY: MYOCARDIAL PERFUSION STRESS TEST WITH LEXISCAN Performing facility: [facility], [address], [address], [place] [address] [facility] Provider: Ratna Queen DO, [facility] PCP: Dr. Vineet Agrawal Supervising provider: Yamilka Rebollar MD, FACC INDICATION: Signs/Symptoms:h/o pci, angina 2-3, palps, tachy. ,I25.10 Atherosclerotic heart disease of [place] coronary artery without angina pectoris,Z95.1 Presence of [...] 1992. COMPARISON: Previous nuclear testing completed at [facility]. ACCESSION NUMBER(S): [id number] ORDERING CLINICIAN: ZACH QUEEN TECHNIQUE: ONE DAY protocol. Stress injection: Date:06-25-25, [...] Erika Carrion 02/23/2025 6:21 PM Dictation workstation: [id number] Generic External Data Provider IMG XR PROCEDURES Final Result * C-REACTIVE PROTEIN, CARDIAC (01/28/2025 1:24 PM EDT) Pathologist [facility] C-REACTIVE PROTEIN, CARDIAC 1.17 0.00 - 3.00 mg/L [facility] Comment: Relative Risk for Future Cardiovascular Event Low <1.00 Average 1.00 - 3.00 High >3.00 Performed at: [facility] [address] [id number] Radiology Asst: Leonardo Stevens PhD, Phone: [phone] 01/28/2025 1:24 PM EDT 01/28/2025 1:48 PM EDT Narrative [facility] - 01/29/2025 5:12 AM EDT Generic External Data Provider LAB BLOOD ORDERAB LES Final Result [facility] * (ABNORMAL) ALL PRO BNP (01/28/2025 1:24 PM EDT) Pathologist [facility] NT PRO B TYPE NATRIURETIC PEPT 1,185.0(H) <=900.0 pg/mL [facility] 01/28/2025 1:24 PM EDT 01/28/2025 1:48 PM EDT Narrative [facility] - 01/28/2025 3:08 PM EDT Generic External Data Provider [facility] F inal Result Performing Organization Address City/[facility] Co de Phone Number [facility] TB * (ABNORMAL) ALL BASIC METABOLIC PANEL (01/28/2025 1:24 PM EDT) SODIUM 139 136 - 145 mmol/L [facility] POTASSIUM 4.4 3.5 - 5.1 mmol/L [facility] CHLORIDE 104 98 - 107 mmol/L [facility] CARBON DIOXIDE 25.7 21.0 - 32.0 mmol/L [facility] ANION GAP 13.7 [facility] GLUCOSE 150(H) 74 - 106 mg/dL [facility] BLOOD UREA NITROGEN 25.0(H) 7.0 - 18.0 mg/dL [facility] CREATININE 1.39(H) 0.70 - 1.30 mg/dL [facility] EGFR-AF ICELANDIC >60 >=60 mL/min/1.7 3m 2 [facility] EGFR-NON AF ICELANDIC 51(L) >=60 mL/min/1.7 3m 2 [facility] BUN CREATININE RATIO 18.0 [facility] CALCIUM 8.8 8.5 - 10.1 mg/dL [facility] 01/28/2025 1:24 PM EDT 01/28/2025 1:48 PM EDT Narrative [facility] - 01/28/2025 3:08 PM EDT Generic External Data Provider [facility] F inal Result Performing Organization Address City/[facility]/ZIP Co de Phone Number [facility] TB * (ABNORMAL) Microalbumin / creatinine urine ratio (12/01/2024 10:03 AM EST) Creat Ur 95.3 Not Estab. mg/dL [facility] Albumin Ur 48.3 Not Estab. ug/mL [facility] Alb/Creat Ratio Urine 51(H) 0 - 29 mg/g creat [facility] Comment: Normal: 0 - 29 Moderately increased: 30 - 300 Severely increased: >300 Urine Urine specimen obtained by clean catch procedure / Unknown 12/01/2024 10:03 AM EST 12/01/2024 Narrative [facility] - 12/02/2024 10:07 AM EST Performed at: - [facility] [id number] Radiology Asst: Leonardo Stevens PhD, Phone: [phone] us Lashaun Madison DO LAB URINE ORDERABLES Final Result [facility] * Color Fundus Photography - OU - Both Eyes (06/27/2022 12:00 PM EDT) Anatomical Region Laterality Modality Head Fundus Photograp hy 06/27/2022 12:0 0 PM EDT Narrative 06/27/2022 12:00 PM EDT PERFORMED AT [facility] LOCATION:[id number] [facility] Procedure Note CONVERSION, GENERIC - 03/21/2023 PERFORMED AT [facility] LOCATION:[id number] [facility] Lashaun Madison DO OPHTH PHOTOGRAPHY Final Re sult * Cologuard?? colon cancer screening (03/27/2022) COLOGUARD RESULT REPORTABLE Negative Negative [facility] Comment: NEGATIVE TEST RESULT. A negative Cologuard result indicates a low likelihood that a colorectal cancer (CRC) or advanced adenoma (adenomatous polyps with more advanced pre-malignant features) is present. The chance that a person with a negative Cologuard test has a colorectal cancer is less than 1 in 1500 (negative predictive value >99.9%) or has an advanced adenoma is less than 5.3% (negative predictive value 94.7%). These data are based on a prospective cross-sectional study of 10,000 individuals at average risk for colorectal cancer who were screened with both Cologuard and colonoscopy. (Payam Dillon al, N Engl J Med 2014;370(14):0282-8692) The normal value (reference range) for this assay is negative. COLOGUARD RE-SCREENING RECOMMENDATION: Periodic colorectal cancer screening is an important part of preventive healthcare for asymptomatic individuals at average risk for colorectal cancer. Following a negative Cologuard result, the [place] Cancer Society and U.S. Multi-Society Task Force screening guidelines recommend a Cologuard re-screening interval of 3 years. References: [place] [employer] Society Guideline for Colorectal Cancer Screening: https://www.cancer.org/cancer/wvjpg-kxnycf-owjkxp/bceamcejs-zurywnemc-hlgugsc/ac s-rec ommendations.html.; [place] DK, Oren SHEIKH, Harvey RomanK, Colorectal Cancer Screening: Recommendations for Physicians and Patients from the U.S. Multi-Society Task Force on Colorectal Cancer Screening , Am J Gastroenterology 2017; 112:1825-4160. TEST DESCRIPTION: Composite algorithmic analysis of stool DNA-biomarkers with hemoglobin immunoassay. Quantitative values of individual biomarkers are not reportable and are not associated with individual biomarker result reference ranges. Cologuard is intended for colorectal cancer screening of adults of either sex, 45 years or older, who are at average-risk for colorectal cancer (CRC). Cologuard has been approved for use by the U.S. FDA. The performance of Cologuard was established in a cross sectional study of average-risk adults aged 50-84. Cologuard performance in patients ages 45 to 49 years was estimated by sub-group analysis of near-age groups. Colonoscopies performed for a positive result may find as the most clinically significant lesion: colorectal cancer [4.0%], advanced adenoma (including sessile serrated polyps greater than or equal to 1cm diameter) [20%] or non- advanced adenoma [31%]; or no colorectal neoplasia [45%]. These estimates are derived from a prospective cross-sectional screening study of 10,000 individuals at average risk for colorectal cancer who were screened with both Cologuard and colonoscopy. (Payam Dillon al, N Engl J Med 2014;370(14):0609-1628.) Cologuard may produce a false negative or false positive result (no colorectal cancer or precancerous polyp present at colonoscopy follow up). A negative Cologuard test result does not guarantee the absence of CRC or advanced adenoma (pre-cancer). The current Cologuard screening interval is every 3 years. ([place] Cancer Society and U.S. Multi-Society Task Force). Cologuard performance data in a 10,000 patient pivotal study using colonoscopy as the reference method can be accessed at the following location: www.Enable Injections.Oyster.com/results. Additional description of the Cologuard test process, warnings and precautions can be found at www.cologuard.com. 03/27/2022 Robin HARRIS [facility] MOLECULAR DIAGNOSTICS ORDERA BLES Final Result [facility] from Last 3 Months or Most Recently Relevant to Health Maintenance Insurance [employer] [place] Care Teams In House Cra Relationship Specialty Start Date End Date Lashaun Madison DO [address] [place] [address] PCP - ACO Reach 03/29/23 Nitish Agrawal DO [address] [place] [address] PCP - General Family Medicine 03/13/23 Elliot Queen MD [address] [address], [address] [address] Referring Physician Cardiology 12/04/24 Ranjan Ivory MD [address] [place] [address] [place] [address] Referring Physician Podiatry 12/04/24
--- OUTSIDE RECORDS SUMMARY | 2025-04-22 13:54 | XMS_ITS | Encounter Summary ---
Author Organization [facility] Address [address] [place] [address] Care Team Providers Care Dental Surgery Doctor Name Role Phone Lashaun Madison DO Unavailable [phone] Nitish Agrawal DO Primary Care Provider [phone] Elliot Elias MD Unavailable [phone] Ranjan Ivory MD Unavailable [phone] Encounter Details Date Type Department Care Team (Late st Contact Info) Description 08/06/2023 Abstract [facility] [address] [facility] [address] 230 [place] [address] Lashaun Madison, [address] [facility] 230 [place] [address] Social History Tobacco Use Types Packs/Day Years [...] as of this encounter Functional Status * Audit-C Score Answer Date of Assessment Author 0 08/06/2023 1:02 PM Abel Bryant LPN * Question Answer Date of Assessment Author Q1: How often do you have a drink containing alcohol? Never 08/06/2023 1:02 PM Zoie Bryant LPN Q2: How many drinks containing alcohol do you have on a typical day when you are drinking? Patient does not drink 08/06/2023 1:02 PM Zoie Bryant LPN Q3: How often do you have six or more drinks on one occasion? Never 08/06/2023 1:02 PM Zoie Bryant LPN * Over the past 2 weeks, how often have you been bothered by any of the following problems? Question Answer Date of Assessment Author Little interest or pleasure in doing things Not at all 08/06/2023 1:02 PM Zoie Bryant LPN Feeling down, depressed, or hopeless Not at all 08/06/2023 1:02 PM Zoie rByant LPN Patient Health Questionnaire-2 Score 0 08/06/2023 1:02 PM Asher Bryant LPN documented as of this encounter Plan of Treatment Upcoming Encounters Date Type Department Care Team (Late st Contact Info) Description 09/21/2025 8:30 AM EST Office Visit [facility] [address] [place] [address] Lashaun Madison DO [address] [place] [address] 12/07/2025 10:00 AM EST Office Visit [facility] [address] [place] [address] Joyce Loyd NP [address] [place] [address] documented as of this encounter Visit Diagnoses Not on filedocumented in this encounter Care Teams Dental Surgery Doctor Relationship Specialty Start Date End Date Lashaun Madison DO [address] [place] [address] PCP - ACO Reach 03/29/23 Nitish Agrawal DO [address] [facility] 230 [place] [address] PCP - General Family Medicine 03/13/23 Elliot Elias MD 703 [facility] 2, [facility] 250 [place] [address] Referring Physician Cardiology 12/04/24 Ranjan Ivory MD [address] [place] [address] [place] [address] Referring Physician Podiatry 12/04/24 documented as of this encounter
--- OUTSIDE RECORDS SUMMARY | 2025-04-22 13:54 | XMS_ITS | Encounter Summary ---
Author Organization [facility] Address [address] [place] [address] Phone Care Team Providers Care Geodetic Surveyor Name Role Phone Nitish Agrawal DO Primary Care Provider [phone] Encounter Details Date Type Department Care Team (Late st Contact Info) Description 01/15/2019 Orders Only [facility] [address] [place] [address] Conversion, Onbase Social History Tobacco Use Types [...] Description 08/04/2025 11:10 AM EDT Office Visit [facility] 7[address] [facility] [address] [place] [address] Martin Elias DO 703 [facility] 2, [address] [place] [address] Scheduled Orders Name Type Priority Associated Diagnoses Orde r Schedule OUTSIDE LAB SCAN Lab Ordered: 01/15/2019 documented as of this encounter Visit Diagnoses Not on filedocumented in this encounter Care Teams Geodetic Surveyor Relationship Specialty Start Date End Date Nitish Agrawal DO [address] [place] [address] PCP - General 09/18/19 documented as of this encounter
== END 2025-04-22 13:52 | disposition home or self-care (01) ==
LOC: WC 13:51
PROVIDERS: PCP Family Medicine; Visit Provider Podiatrist Foot & Ankle Surgery
DX: M79.672 Pain in left foot (principal); M21.962 Unspecified acquired deformity of left lower leg; L97.529 Non-pressure chronic ulcer of other part of left foot with unspecified severity; E11.621 Type 2 diabetes mellitus with foot ulcer; L97.425 Non-pressure chronic ulcer of left heel and midfoot with muscle involvement without evidence of necrosis
CPT/HCPCS: 11043; 73630

== ENCOUNTER 2025-04-22 14:36 | Outpatient (OUT) | payer MEDICARE, OTHER, SELFPAY ==
--- OUTSIDE RECORDS SUMMARY | 2025-04-22 14:45 | XMS_ITS | Encounter Summary ---
Author Organization [facility] Address [address] [place] [address] Care Team Providers Care Getterer Name Role Phone Lashaun Madison DO Unavailable [phone] Nitish Agrawal DO Primary Care Provider [phone] Elliot Elias MD Unavailable [phone] Ranjan Ivory MD Unavailable [phone] Encounter Details Date Type Department Care Team (Late st Contact Info) Description 08/06/2023 Abstract [facility] [address] [facility] [address] 230 [place] [address] Lashaun Madison, [address] [facility] 230 [place] [address] Social History Tobacco Use Types Packs/Day Years [...] all 08/06/2023 1:02 PM Zoie Bryant LPN Patient Health Questionnaire-2 Score 0 08/06/2023 1:02 PM Asher Bryant LPN documented as of this encounter Plan of Treatment Upcoming Encounters Date Type Department Care Team (Late st Contact Info) Description 09/21/2025 8:30 AM EST Office Visit [facility] [address] [place] [address] Lashaun Madison DO [address] [place] [address] 12/07/2025 10:00 AM EST Office Visit [facility] [address] [place] [address] Joyce Loyd NP [address] [place] [address] documented as of this encounter Visit Diagnoses Not on filedocumented in this encounter Care Teams Getterer Relationship Specialty Start Date End Date Lashaun Madison DO [address] [place] [address] PCP - ACO Reach 03/29/23 Nitish Agrawal DO [address] [facility] 230 [place] [address] PCP - General Family Medicine 03/13/23 Elliot Elias MD 703 [facility] 2, [facility] 250 [place] [address] Referring Physician Cardiology 12/04/24 Ranjan Ivory MD [address] [place] [address] [place] [address] Referring Physician Podiatry 12/04/24 documented as of this encounter
--- OUTSIDE RECORDS SUMMARY | 2025-04-22 14:45 | XMS_ITS | Clinical Summary ---
Author Organization [facility] Address [address] [place] [address] Phone Care Team Providers Care Core Drill Operator Helper Name Role Phone Nitish Agrawal DO Primary Care Provider [phone] Allergies Active Allergy Reactions Criticality Noted Date [...] Type Department Care Team Description 04/11/2025 Refill [place] [id number] [address] Zach Elias, Multiple vessel coronary artery disease; Hypertension, unspecified type 03/17/[address] [place] [address] Franchesca Adan LPN 03/17/[address] [address] Cristin Fulton RN 03/01/[address] [address] Zach Elias, DO Hyperlipidemia, unspecified hyperlipidemia type 02/23/2025 8:09 AM EDT - 02/23/2025 11:59 PM EDT Hospital Encounter [address] [address] Discharge Disposition: Home 02/23/2025 8:09 AM EDT - 02/23/2025 11:59 PM EDT Hospital Encounter [address] [address] Discharge Disposition: Home 02/23/2025 8:09 AM EDT - 02/23/2025 11:59 PM EDT Hospital Encounter [address] [address] Discharge Disposition: Home 02/23/2025 8:09 AM EDT - 02/23/2025 11:59 PM EDT Hospital Encounter [address] [address] Discharge Disposition: Home 02/23/2025 8:09 AM EDT - 02/23/2025 11:59 PM EDT Hospital Encounter [address] [address] Arteriosclerotic cardiovascular disease (ASCVD); History of coronary artery bypass graft; Status post angioplasty; Angina pectoris; Palpitations; Tachycardia Discharge Disposition: Home 02/22/2025 Travel 02/19/2025 Travel 02/17/[address] [place] [address] GlennFranchesca gordonROSLYN 01/30/2025 8:00 AM EDT Ancillary Procedure [address] [address] Angina pectoris; Palpitations; Tachycardia 01/30/2025 Travel 01/28/2025 9:50 AM EDT Office Visit [address] [address] Zach Elias, Arteriosclerotic cardiovascular disease [...] Description 08/04/2025 11:10 AM EDT Office Visit [facility] [address] [place] [address] Zach Elias DO [address], [address] [place] [address] Health Maintenance Due Date Last Done Comments [...] Erika Carrion 02/23/2025 6:21 PM Dictation workstation: [id number] Narrative 02/23/2025 6:21 PM EDT Interpreted By: Erika Carrion, and Maine Lopez STUDY: MYOCARDIAL PERFUSION STRESS TEST WITH LEXISCAN Performing facility: [facility], [address], [address], [place] [address] [facility] Provider: Ratna Elias DO, [facility] PCP: Dr. Vineet Agrawal Supervising provider: Yamilka Rebollar MD, [facility] INDICATION: Signs/Symptoms:h/o pci, angina 2-3, palps, tachy. ,I25.10 Atherosclerotic heart disease of [place] coronary artery without angina pectoris,Z95.1 Presence of [...] 1992. COMPARISON: Previous nuclear testing completed at [facility]. ACCESSION NUMBER(S): [id number] ORDERING CLINICIAN: ZACH ELIAS TECHNIQUE: ONE DAY [...] PERFUSION STRESS TEST WITH LEXISCAN Performing facility: [facility], [address] [place] [address], [address], [place], [place] [address] Provider: Ratna Elias DO, [facility] PCP: Dr. Vineet Agrawal Supervising provider: Yamil[facility]ollar MD, [facility] INDICATION: Signs/Symptoms:h/o pci, angina 2-3, palps, tachy. ,I25.10 Atherosclerotic heart disease of [place] coronary artery without angina pectoris,Z95.1 Presence of [...] 1992. COMPARISON: Previous nuclear testing completed at [facility]. ACCESSION NUMBER(S): [id number] ORDERING CLINICIAN: ZACH ELIAS TECHNIQUE: ONE DAY [...] Erika Carrion 02/23/2025 6:21 PM Dictation workstation: [id number] Zach Elias DO CV STRESS PROCEDURES Final [...] Result CPACS from Last 3 Months Insurance [facility] MEDICARE SUPPLEMENT MEDICARE PART A AND B Care Teams Core Drill Operator Helper Relationship Specialty Start Date End Date Nitish Agrawal DO [address] [place] [address] PCP - General 09/18/19
--- OUTSIDE RECORDS SUMMARY | 2025-04-22 14:45 | XMS_ITS | Encounter Summary ---
Author Organization [facility] Address [address] [place] [address] Care Team Providers Care Canvas Cutter Machine Name Role Phone Lashaun Madison DO Unavailable [phone] Nitish Agrawal DO Primary Care Provider [phone] Elliot Elias MD Unavailable [phone] Ranjan Iovry MD Unavailable [phone] Encounter Details Date Type Department Care Team (Late st Contact Info) Description 07/19/2023 Abstract [facility] [address] [place] [address] Kiel Lozano, DPM [address] [place] [address] Social History Tobacco Use Types Packs/Day Years [...] Visit [facility] [address] [facility] 230 [place] [address] Lashaun Madison DO [address] [facility] 230 [place] [address] 12/07/2025 10:00 AM EST Office Visit [facility] [address] [place] [address] Joyce Loyd, CERTIFIED MORTICIAN [address] [place] [address] documented as of this encounter Visit Diagnoses Not on filedocumented in this encounter Care Teams Canvas Cutter Machine Relationship Specialty Start Date End Date Lashaun Madison DO [address] [place] [address] PCP - ACO Reach 03/29/23 Nitish Agrawal DO [address] [place] [address] PCP - General Family Medicine 03/13/23 Elliot Elias MD [address] [place] [address] 2, [address] [place] [address] Referring Physician Cardiology 12/04/24 Ranjan Ivory MD [address] [place] [address] [place] [address] Referring Physician Podiatry 12/04/24 documented as of this encounter
--- OUTSIDE RECORDS SUMMARY | 2025-04-22 14:45 | XMS_ITS | Encounter Summary ---
Author Organization [facility] Address [address] [place] [address] Phone Care Team Providers Care Outpatient Dietitian Name Role Phone Nitish Agrawal DO Primary Care Provider [phone] Encounter Details Date Type Department Care Team (Late st Contact Info) Description 11/07/2021 Orders Only [facility] [address] [place] [address] Conversion, Onbase Social History Tobacco Use Types [...] Description 08/04/2025 11:10 AM EDT Office Visit [facility] [address] [place] [address] Martin Elias DO [address], [address] [place] [address] Scheduled Orders Name Type Priority Associated Diagnoses Orde r Schedule OUTSIDE LAB SCAN Lab Ordered: 11/07/2021 documented as of this encounter Visit Diagnoses Not on filedocumented in this encounter Care Teams Outpatient Dietitian Relationship Specialty Start Date End Date Nitish Agrawal DO [address] [place] [address] PCP - General 09/18/19 documented as of this encounter
--- OUTSIDE RECORDS SUMMARY | 2025-04-22 14:45 | XMS_ITS | Encounter Summary ---
Author Organization [facility] Address [address] [place] [address] Care Team Providers Care Company Driver Name Role Phone Lashaun Madison DO Unavailable [phone] Nitish Agrawal DO Primary Care Provider [phone] Elliot Elias MD Unavailable [phone] Ranjan Ivory MD Unavailable [phone] Encounter Details Date Type Department Care Team (Late st Contact Info) Description 02/19/2024 Abstract [facility] [address] [facility] 230 [place] [address] Lashaun Madison, [address] [facility] 230 [place] [address] Social History Tobacco Use Types Packs/Day Years [...] 09/21/2025 8:30 AM EST Office Visit [facility] [address] [place] [address] Lashaun Madison, DO [address] [place] [address] 12/07/2025 10:00 AM EST Office Visit [facility] [address] [place] [address] Joyce Loyd, GLUER MACHINE OPERATOR [address] [place] [address] documented as of this encounter Visit Diagnoses Not on filedocumented in this encounter Care Teams Company Driver Relationship Specialty Start Date End Date Lashaun Madison, DO [address] [place] [address] PCP - ACO Reach 03/29/23 Nitish Agrawal DO [address] [place] [address] PCP - General Family Medicine 03/13/23 Elliot Elias MD 703 [facility] 2, [address] [place] [address] Referring Physician Cardiology 12/04/24 Ranjan Ivory MD [address] [place] [address] [place] [address] Referring Physician Podiatry 12/04/24 documented as of this encounter
--- OUTSIDE RECORDS SUMMARY | 2025-04-22 14:45 | XMS_ITS | Encounter Summary ---
Author Organization [facility] Address [address] [place] [address] Care Team Providers Care Senior Systems Software Engineer Name Role Phone Lashaun Madison Judie DO Unavailable [phone] Nitish Agrawal DO Primary Care Provider [phone] Elliot Elias MD Unavailable [phone] Ranjan Ivory MD Unavailable [phone] Encounter Details Date Type Department Care Team (Late st Contact Info) Description 12/04/2024 Abstract [facility] [address] [facility] [address] 230 [place] [address] Nitish Agrawal, [address] [facility] 230 [place] [address] Social History Tobacco Use Types Packs/Day Years [...] 09/21/2025 8:30 AM EST Office Visit [facility] [address] [place] [address] Lashaun Madison, [address] [place] [address] 12/07/2025 10:00 AM EST Office Visit [facility] [address] [place] [address] Joyce Loyd, LAZARO [address] [place] [address] documented as of this encounter Visit Diagnoses Not on filedocumented in this encounter Additional Health Concerns Assessment Noted Time PHQ-9 Depression Total Score: 0 12/04/19 11:00 AM EST documented as of this encounter Care Teams Senior Systems Software Engineer Relationship Specialty Start Date End Date Lashaun Madison DO [address] [place] [address] PCP - ACO Reach 03/29/23 Nitish Agrawal DO [address] [place] [address] PCP - General Family Medicine 03/13/23 Elliot Elias MD 703 [facility] 2, [address] [place] [address] Referring Physician Cardiology 12/04/24 Ranjan Ivory MD [address] [place] [address] [place] [address] Referring Physician Podiatry 12/04/24 documented as of this encounter
--- OUTSIDE RECORDS SUMMARY | 2025-04-22 14:45 | XMS_ITS | Encounter Summary ---
Author Organization [facility] Address [address] [place] [address] Phone Care Team Providers Care Set Illustrator Name Role Phone Nitish Agrawal DO Primary Care Provider [phone] Encounter Details Date Type Department Care Team (Late st Contact Info) Description 03/07/2021 Orders Only [facility] [address] [place] [address] Conversion, Onbase Social History Tobacco Use Types [...] Description 08/04/2025 11:10 AM EDT Office Visit [facility] 703 [facility] [address] [place] [address] Martin Elias DO [address], [address] [place] [address] Scheduled Orders Name Type Priority Associated Diagnoses Orde r Schedule OUTSIDE LAB SCAN Lab Ordered: 03/07/2021 documented as of this encounter Visit Diagnoses Not on filedocumented in this encounter Care Teams Set Illustrator Relationship Specialty Start Date End Date Nitish Agrawal DO [address] [place] [address] PCP - General 09/18/19 documented as of this encounter
--- OUTSIDE RECORDS SUMMARY | 2025-04-22 14:45 | XMS_ITS | Encounter Summary ---
Author Organization [facility] Address [address] [place] [address] Care Team Providers Care Barratte Operator Name Role Phone Lashaun Madison Judie DO Unavailable [phone] Nitish Agrawal DO Primary Care Provider [phone] Elliot Elias MD Unavailable [phone] Ranjan Ivory MD Unavailable [phone] Encounter Details Date Type Department Care Team (Late st Contact Info) Description 10/15/2023 Abstract [facility] [address] [place] [address] Kiel Lozano, DPM [address] [place], [place] [address] Social History Tobacco Use Types Packs/Day Years [...] 09/21/2025 8:30 AM EST Office Visit [facility] [address] [place] [address] Lashaun Madison, DO [address] [place] [address] 12/07/2025 10:00 AM EST Office Visit [facility] [address] [place] [address] Joyce Loyd, BIG DATA DEVELOPER [address] [place] [address] documented as of this encounter Visit Diagnoses Not on filedocumented in this encounter Care Teams Barratte Operator Relationship Specialty Start Date End Date Lashaun Madison, DO [address] [place] [address] PCP - ACO Reach 03/29/23 Nitish Agrawal DO [address] [place] [address] PCP - General Family Medicine 03/13/23 Elliot Elias MD 703 [facility] 2, [address] [place] [address] Referring Physician Cardiology 12/04/24 Ranjan Ivory MD [address] [place] [address] [place] [address] Referring Physician Podiatry 12/04/24 documented as of this encounter
--- OUTSIDE RECORDS SUMMARY | 2025-04-22 14:45 | XMS_ITS | Encounter Summary ---
Author Organization [facility] Address [address] [place] [address] Phone Care Team Providers Care Oracle Hrms Consultant Name Role Phone Nitish Agrawal DO Primary Care Provider [phone] Encounter Details Date Type Department Care Team (Late st Contact Info) Description 06/09/2022 Orders Only [facility] [address] [place] [address] Conversion, Onbase Social History Tobacco Use Types [...] 11:10 AM EDT Office [facility] 703 [facility] [address] [place] [address] Martin Elias DO [address], [address] [place] [address] Scheduled Orders Name Type Priority Associated Diagnoses Orde r Schedule OUTSIDE LAB SCAN Lab Ordered: 06/09/2022 documented as of this encounter Visit Diagnoses Not on filedocumented in this encounter Care Teams Oracle Hrms Consultant Relationship Specialty Start Date End Date Nitish Agrawal DO [address] [place] [address] PCP - General 09/18/19 documented as of this encounter
--- OUTSIDE RECORDS SUMMARY | 2025-04-22 14:45 | XMS_ITS | Encounter Summary ---
Author Organization [facility] Address [address] [place] [address] Care Team Providers Care Head Baker Name Role Phone Lashaun Madison DO Unavailable [phone] Nitish Agrawal DO Primary Care Provider [phone] Elliot Elias MD Unavailable [phone] Ranjan Ivory MD Unavailable [phone] Encounter Details Date Type Department Care Team (Late st Contact Info) Description 04/09/2023 Orders Only [facility] [address] [place] [address] Nitish Agrawal DO [address] [place] [address] Social History Tobacco Use Types Packs/Day Years [...] 09/21/2025 8:30 AM EST Office Visit [facility] [address] [place] [address] Lashaun Madison DO [address] [place] [address] 12/07/2025 10:00 AM EST Office Visit [facility] [address] [place] [address] Joyce Loyd, MACHINE RECORDS UNITS SUPERVISOR [address] [facility] 230 [place] [address] documented as of this encounter Procedures Procedure [...] on filedocumented in this encounter Care Teams Head Baker Relationship Specialty Start Date End Date Lashaun Madison DO [address] [facility] 230 [place] [address] PCP - ACO Reach 03/29/23 Nitish Agrawal DO [address] [facility] 230 [place] [address] PCP - General Family Medicine 03/13/23 Elliot Elias MD 7[address] [facility] 2, [facility] 250 [place] [address] Referring Physician Cardiology 12/04/24 Ranjan Ivory MD [address] [place] [address] [place] [address] Referring Physician Podiatry 12/04/24 documented as of this encounter
--- OUTSIDE RECORDS SUMMARY | 2025-04-22 14:45 | XMS_ITS | Encounter Summary ---
Author Organization [facility] Address [address] [place] [address] Phone Care Team Providers Care Banjo Repairer Name Role Phone Nitish Agrawal DO Primary Care Provider [phone] Encounter Details Date Type Department Care Team (Late st Contact Info) Description 01/15/2019 Orders Only [facility] [address] [place] [address] Conversion, Onbase Social History Tobacco Use Types [...] Description 08/04/2025 11:10 AM EDT Office Visit [facility] 703 [facility] [address] [place] [address] Martin Elias DO 703 [facility] 2, [address] [place] [address] Scheduled Orders Name Type Priority Associated Diagnoses Orde r Schedule OUTSIDE LAB SCAN Lab Ordered: 01/15/2019 documented as of this encounter Visit Diagnoses Not on filedocumented in this encounter Care Teams Banjo Repairer Relationship Specialty Start Date End Date Nitish Agrawal DO [address] [place] [address] PCP - General 09/18/19 documented as of this encounter
--- OUTSIDE RECORDS SUMMARY | 2025-04-22 14:45 | XMS_ITS | Encounter Summary ---
Author Organization [facility] Address [address] [place] [address] Care Team Providers Care Finance Manager Name Role Phone Lashaun Madison Judie DO Unavailable [phone] Nitish Agrawal DO Primary Care Provider [phone] Elliot Elias MD Unavailable [phone] Ranjan Ivory MD Unavailable [phone] Encounter Details Date Type Department Care Team (Late st Contact Info) Description 08/09/2023 Orders Only [facility] [address] [facility] [address] [place] [address] A, Unknown Practice [address] [place], [place] [address] Social History Tobacco Use Types Packs/Day Years [...] [address] [place] [address] Lashaun Madison DO [address] [place] [address] 12/07/2025 10:00 AM EST Office Visit [facility] [address] [place] [address] Joyce Loyd, LAZARO [address] [place] [address] documented as of this encounter Procedures Procedure [...] on filedocumented in this encounter Care Teams Finance Manager Relationship Specialty Start Date End Date Lashaun Madison DO [address] [place] [address] PCP - ACO Reach 03/29/23 Nitish Agrawal DO [address] [place] [address] PCP - General Family Medicine 03/13/23 Elliot Elias MD 703 [facility] 2, [address] [place] [address] Referring Physician Cardiology 12/04/24 Ranjan Ivory MD [address] [place] [address] Dr LUCAS [place], [facility]11 Referring Physician Podiatry 12/04/24 documented as of this encounter
--- OUTSIDE RECORDS SUMMARY | 2025-04-22 14:45 | XMS_ITS ---
Author Organization [facility] Care Team Providers Care Gunstock Repairer Name Role Phone FLOYD LÓPEZ Unavailable Unavailable Allergies and adverse reactions No Known Allergies Care Team Name Role Address Phone Organization Dates FLOYD MCFADDENMUSA PCP [address] [place], [address], [place] (Office): : [facility] 03/29/2016 - 04/02/2016 Mental Status Section Date Assessment Total Score Description 04/02/2016 BIMS 15 cognitively int act PHQ-9 00 04/02/2016 BIMS 15 cognitively int act PHQ-9 00 Problems Problem # Description Date of onset Resolved Date Code CodeSystem Concern Status 1 DIFFICULTY IN WALKING, NOT ELSEWHERE CLASSIFIED 03/29/[address] active 2 MUSCLE WEAKNESS (GENERALIZED) 03/29/[address] active 3 OTHER REDUCED MOBILITY 03/29/[address] active Reason for Referral No Reasons for Referral Entered Social History Social History Observation Description Start Date End Date Code Code System Current Smoking Status Tobacco smoking consumption unknown 449828330 SNOMED CT Sex Assigned At Male 1955 [address]90-2 [facility] Gender Identity Vital Signs Code Code System Vitals Name Values and Units Timing Information 9279-1 LOINC Respiratory Rate Value=18.0 Units=/m in 04/02/2016 8310-5 LOINC Body Temperature Value=98.0 Units= F 04/02/2016 51786-4 LOINC O2 % BldC Oximetry Value=98.0 Units= % 04/02/2016 8462-4 [facility] Blood Pressure-Diastolic Value=78 Un its=mmHg 04/02/2016 8480-6 [facility] Blood Pressure-Systolic Dkuyi=170 Un its=mmHg 04/02/2016 8867-4 [facility] Heart rate Value=86.0 Units=/min 35790-3 [facility] Pain Level Value=5.0 04/01/2016 8302-2 [facility] Height Value=73.0 Units=Inches 03/30/2016 45407-9 [facility] Weight Hvzrq=491.3 Units=Lbs
--- OUTSIDE RECORDS SUMMARY | 2025-04-22 14:45 | XMS_ITS | Clinical Summary ---
Author Organization [facility] Address [address] [place] [address] Care Team Providers Care Piano Assembler Name Role Phone Lashaun Madison Judie RICH Unavailable [phone] Nitish Agrawal DO Primary Care Provider [phone] Elliot Queen MD Unavailable [phone] Ranjan Ivory MD Unavailable [phone] Allergies No known active allergies Medications isosorbide [...] chest pain. Active Blood Glucose Monitoring Suppl (WibkiToInveshare Verio Flex System) w/Device kit Active glucose [...] unspecified 03/29/2016 Atherosclerotic heart diseas e of [place] coronary artery without angina pectoris 03/29/2016 Gastro-esophageal [...] 03/27/2025 8:45 AM EDT Office Visit [facility] [address] [place] [address] Lashaun Madison, DO Type 2 diabetes mellitus with stage 3a chronic kidney disease, without long-term current use of insulin (HCC); Type 2 diabetes mellitus with other circulatory complications (HCC) 03/27/2025 Orders Only [facility] [address] [place] [address] Joyce Loyd NP Colon cancer screening (Primary Dx) 03/27/2025 Travel 03/01/2025 Refill [facility] [address] [place] [address] Lashaun Madison, DO Type 2 diabetes mellitus with other circulatory complications (HCC) 02/25/2025 Refill [facility] [address] [place] [address] Lashaun Madison, Type 2 diabetes mellitus with other circulatory complications (HCC) 02/23/2025 Clinisync Result Encounter [facility] External Department Unsolicited Provider, Generic External Data 01/29/2025 8:40 AM EDT Office Visit [facility] [address] [place] [address] Robin Caicedo PA Anxiety (Primary Dx) 01/29/2025 Telephone [facility] [address] [place] [address] Robin Caicedo PA Medication Question 01/29/2025 Bamboo flowsheet [facility] [address] [place] [address] Robin Caicedo PA 01/29/2025 Travel 01/28/2025 [...] [address] [place] [address] Lashaun Madison, [address] [place] [address] 12/07/2025 10:00 AM EST Office Visit [facility] [address] [place] [address] GenemartinezJoyce, AURICULOTHERAPIST [address] [place] [address] Health Maintenance Due Date Last Done Comments [...] Narrative 02/23/2025 6:21 PM EDT Source Facility: [facility] Interpreted By: Erika Carrion, Sahil Lopez STUDY: MYOCARDIAL PERFUSION STRESS TEST WITH LEXISCAN Performing facility: [facility], [address] [place] [address], [address], [address] Provider: Ratna Queen DO, FACC PCP: Dr. Vineet Agrawal Supervising provider: Yamilka Rebollar MD, FACC INDICATION: Signs/Symptoms:h/o pci, angina 2-3, palps, tachy. ,I25.10 Atherosclerotic heart disease of [place] coronary artery without angina pectoris,Z95.1 Presence of [...] 1992. COMPARISON: Previous nuclear testing completed at [facility]. ACCESSION NUMBER(S): [id number] ORDERING CLINICIAN: ZACH QUEEN TECHNIQUE: ONE DAY [...] Erika Carrion 02/23/2025 6:21 PM Dictation workstation: [id number] Procedure Note Radiology, Radiologist, - 02/24/2025 Source Facility: [facility] Interpreted By: Erika Carrion and Giannuzzi Michael STUDY: MYOCARDIAL PERFUSION STRESS TEST WITH LEXISCAN Performing facility: [facility], [address] [facility], [address], [place] [address] [facility] Provider: Ratna Queen DO, [facility] PCP: Dr. Vineet Agrawal Supervising provider: Yamilka Rebollar MD, FACC INDICATION: Signs/Symptoms:h/o pci, angina 2-3, palps, tachy. ,I25.10 Atherosclerotic heart disease of [place] coronary artery without angina pectoris,Z95.1 Presence of [...] 1992. COMPARISON: Previous nuclear testing completed at [facility]. ACCESSION NUMBER(S): [id number] ORDERING CLINICIAN: ZACH QUEEN TECHNIQUE: ONE DAY [...] Erika Carrion 02/23/2025 6:21 PM Dictation workstation: [id number] Generic External Data Provider IMG XR PROCEDURES Final Result * C-REACTIVE PROTEIN, CARDIAC (01/28/2025 1:24 PM EDT) Pathologist [facility] C-REACTIVE PROTEIN, CARDIAC 1.17 0.00 - 3.00 mg/L [facility] Comment: Relative Risk for Future Cardiovascular Event Low <1.00 Average 1.00 - 3.00 High >3.00 Performed at: [facility] [address] [id number] Seed Core Operator: Leonardo Stevens PhD, Phone: [phone] 01/28/2025 1:24 PM EDT 01/28/2025 1:48 PM EDT Narrative [facility] - 01/29/2025 5:12 AM EDT Generic External Data Provider LAB BLOOD ORDERAB LES Final Result [facility] * (ABNORMAL) ALL PRO BNP (01/28/2025 1:24 PM EDT) Pathologist [facility] NT PRO B TYPE NATRIURETIC PEPT 1,185.0(H) <=900.0 pg/mL [facility] 01/28/2025 1:24 PM EDT 01/28/2025 1:48 PM EDT Narrative [facility] - 01/28/2025 3:08 PM EDT Generic External Data Provider [facility] F inal Result Performing Organization Address City/[facility] Co de Phone Number [facility] TB * [...] 0.70 - 1.30 mg/dL [facility] EGFR-AF [place] >60 >=60 mL/min/1.7 3m 2 [facility] EGFR-NON AF [place] 51(L) >=60 mL/min/1.7 3m 2 [facility] BUN CREATININE RATIO 18.0 [facility] CALCIUM 8.8 8.5 - 10.1 mg/dL [facility] 01/28/2025 1:24 PM EDT 01/28/2025 1:48 PM EDT Narrative [facility] - 01/28/2025 3:08 PM EDT Generic External Data Provider [facility] F inal Result Performing Organization Address City/[facility]/ZIP Co de Phone Number [facility] TB * [...] 12/02/2024 10:07 AM EST Performed at: - [facility] [id number] Seed Core Operator: Leonardo Stevens PhD, Phone: [phone] us Lashaun Madison DO LAB URINE ORDERABLES Final Result [facility] * Color Fundus Photography - OU - Both Eyes (06/27/2022 12:00 PM EDT) Anatomical Region Laterality Modality Head Fundus Photograp hy 06/27/2022 12:0 0 PM EDT Narrative 06/27/2022 12:00 PM EDT PERFORMED AT [facility] LOCATION:[id number] [facility] Procedure Note CONVERSION, GENERIC - 03/21/2023 PERFORMED AT [facility] LOCATION:[id number] [facility] Lashaun Madison DO OPHTH PHOTOGRAPHY Final Re [...] (Payam Dillon al, N Engl J Med 2014;370(14):9074-7448) The normal value (reference range) for this assay is negative. COLOGUARD RE-SCREENING RECOMMENDATION: Periodic colorectal cancer screening is an important part of preventive healthcare for asymptomatic individuals at average risk for colorectal cancer. Following a negative Cologuard result, the [place] Cancer Society and U.S. Multi-Society Task Force screening guidelines recommend a Cologuard re-screening interval of 3 years. References: [place] Cancer Society Guideline for Colorectal Cancer Screening: https://www.cancer.org/cancer/uzhju-zhxzvx-nmzfvs/isdnhcklw-eiqwrvzcu-zchdodj/ac s-rec ommendations.html.; [place] DK, Oren SHEIKH, Harvey RomanK, Colorectal Cancer Screening: Recommendations for Physicians and Patients from the U.S. Multi-Society Task Force on Colorectal Cancer Screening , Am J Gastroenterology 2017; 112:4145-9930. TEST DESCRIPTION: Composite algorithmic analysis of stool [...] (Payam Dillon al, N Engl J Med 2014;370(14):5627-2823.) Cologuard may produce a false negative or false positive result (no colorectal cancer or precancerous polyp present at colonoscopy follow up). A negative Cologuard test result does not guarantee the absence of CRC or advanced adenoma (pre-cancer). The current Cologuard screening interval is every 3 years. ([place] Cancer Society and U.S. Multi-Society Task Force). Cologuard performance data in a 10,000 patient pivotal study using colonoscopy as the reference method can be accessed at the following location: www.[employer].LectureTools/results. Additional description of the Cologuard test process, warnings and precautions can be found at www.cologuard.com. 03/27/2022 Robin [facility] ORDERA BLES Final Result [facility] from Last 3 Months or Most Recently Relevant to Health Maintenance Insurance [employer] [place] Care Teams Piano Assembler Relationship Specialty Start Date End Date Lashaun Madison DO [address] [place] [address] PCP - ACO Reach 03/29/23 Nitish Agrawal DO [address] [place] [address] PCP - General Family Medicine 03/13/23 Elliot Queen MD [address] [place] [address], [address] [address] Referring Physician Cardiology 12/04/24 Ranjan Ivory MD [address] [place] [address] [place] [address] Referring Physician Podiatry 12/04/24
--- OUTSIDE RECORDS SUMMARY | 2025-04-22 14:45 | XMS_ITS | Encounter Summary ---
Author Organization [facility] Address [address] [place] [address] Care Team Providers Care Academic Computing Director Name Role Phone Lashaun Madison DO Unavailable [phone] Nitish Agrawal DO Primary Care Provider [phone] Elliot Elias MD Unavailable [phone] Ranjan Ivory MD Unavailable [phone] Reason for Visit * Reason Comments Med Refill Encounter Details Date Type Department Care Team (Late st Contact Info) Description 03/04/2024 Refill [facility] [address] [facility] [address] [place] [address] Lashaun Madison, DO [address] [facility] 230 [place] [address] Type 2 diabetes mellitus with [...] 09/21/2025 8:30 AM EST Office Visit [facility] [address] [place] [address] Lashaun Madison DO [address] [place] [address] 12/07/2025 10:00 AM EST Office Visit [facility] [address] [place] [address] Joyce Loyd, SLOT MACHINE DEPARTMENT FLOORPERSON [address] [place] [address] documented as of this encounter Visit Diagnoses Diagnosis Type 2 diabetes mellitus with other circulatory complications (HCC) documented in this encounter Care Teams Academic Computing Director Relationship Specialty Start Date End Date Lashaun Madison DO [address] [place] [address] PCP - ACO Reach 03/29/23 Nitish Agrawal DO [address] [place] [address] PCP - General Family Medicine 03/13/23 Elliot Elias MD [facility]03 [facility], [address] [place] [address] Referring Physician Cardiology 12/04/24 Ranjan Ivory MD [address] [place] [address] Dr LUCAS [place], [facility]11 Referring Physician Podiatry 12/04/24 documented as of this encounter
--- OUTSIDE RECORDS SUMMARY | 2025-04-22 14:45 | XMS_ITS | Encounter Summary ---
Author Organization [facility] Address [address] [place] [address] Phone Care Team Providers Care It Security Project Manager Name Role Phone Tanja Nitish Crump DO Primary Care Provider [phone] Reason for Visit * Reason Comments Med Refill Encounter Details Date Type Department Care Team (Late st Contact Info) Description 04/11/[address] [place] [address] Martin Elias DO [address] [place] [address] 2, [address] [place] [address] Multiple vessel coronary artery disease; [...] Description 08/04/2025 11:10 AM EDT Office Visit [address] [place] [address] Martin Elias DO 703 [facility] 2, [address] [place] [address] documented as of this encounter Visit Diagnoses Diagnosis Multiple vessel coronary artery disease Hypertension, unspecified type documented in this encounter Additional Health Concerns Assessment Noted Time A fall risk assessment has been complete d for the patient 01/29/2024 2:36 PM EDT documented as of this encounter Care Teams It Security Project Manager Relationship Specialty Start Date End Date Nitish Agrawal DO [address] [place] [address] PCP - General 09/18/19 documented as of this encounter
--- OUTSIDE RECORDS SUMMARY | 2025-04-22 14:45 | XMS_ITS | Encounter Summary ---
Author Organization [facility] Address [address] [place] [address] Care Team Providers Care Labor Employment Associate Name Role Phone Lashaun Madison DO Unavailable [phone] Nitish Agrawal DO Primary Care Provider [phone] Elliot Elias MD Unavailable [phone] Ranjan Ivory MD Unavailable [phone] Encounter Details Date Type Department Care Team (Late st Contact Info) Description 06/30/2023 Abstract [facility] [address] [place] [phone] Kiel Lozano, DPM [address] [place], [place] [address] Social History Tobacco Use Types Packs/Day Years [...] Visit [facility] [address] [facility] 230 [place] [address] Lashaun Madison DO [address] [facility] 230 [place] [address] 12/07/2025 10:00 AM EST Office Visit [facility] [address] [place] [address] Joyce Loyd, HOG WORKER [address] [place] [address] documented as of this encounter Visit Diagnoses Not on filedocumented in this encounter Care Teams Labor Employment Associate Relationship Specialty Start Date End Date Lashaun Madison DO [address] [place] [address] PCP - ACO Reach 03/29/23 Nitish Agrawal DO [address] [place] [address] PCP - General Family Medicine 03/13/23 Elliot Elias MD [address] [place] [address] 2, [address] [place] [address] Referring Physician Cardiology 12/04/24 Ranjan Ivory MD [address] [place] [address] [place] [address] Referring Physician Podiatry 12/04/24 documented as of this encounter
--- OUTSIDE RECORDS SUMMARY | 2025-04-22 14:45 | XMS_ITS | Clinical Summary ---
Author Organization [facility] Address [facility] [id number] [address] [place] [address] Care Team Providers Care Dye Tank Tender Name Role Phone Brittany York Primary Care Provider [phone] Social History Tobacco Use Types Packs/Day Years [...] Medical Devices Not on file Care Teams Dye Tank Tender Relationship Specialty Start Date End Date Brittany York APRN-CNP [address] [place] [address] PCP - General Family Medicine 01/12/21
--- OUTSIDE RECORDS SUMMARY | 2025-04-22 14:45 | XMS_ITS | Encounter Summary ---
Author Organization [facility] Address [address] [place] [address] Care Team Providers Care Plant Care Worker Name Role Phone Lashaun Madison DO Unavailable [phone] Nitish Agrawal DO Primary Care Provider [phone] Elliot Elias MD Unavailable [phone] Ranjan Ivory MD Unavailable [phone] Encounter Details Date Type Department Care Team (Late st Contact Info) Description 07/30/2023 Abstract [facility] [address] [place] [address] Kiel Lozano, DPM [address] [place] [address] Social History Tobacco Use Types Packs/Day Years [...] Visit [facility] [address] [facility] 230 [place] [address] Lashaun Madison DO [address] [facility] 230 [place] [address] 12/07/2025 10:00 AM EST Office Visit [facility] [address] [place] [address] Joyce Loyd, STUDIO HAND [address] [place] [address] documented as of this encounter Visit Diagnoses Not on filedocumented in this encounter Care Teams Plant Care Worker Relationship Specialty Start Date End Date Lashaun Madison DO [address] [place] [address] PCP - ACO Reach 03/29/23 Nitish Agrawal DO [address] [place] [address] PCP - General Family Medicine 03/13/23 Elliot Elias MD [address] [place] [address] [address], [address] [place] [address] Referring Physician Cardiology 12/04/24 Ranjan Ivory MD [address] [place] [address] [place] [address] Referring Physician Podiatry 12/04/24 documented as of this encounter
--- NOTE | 2025-04-22 15:08 | XR_ITS ---
The [address] [address] Patient Name: JANICE PANDYA MRN: [id number] date: 1955 Sex: M Assigned Patient Location: [facility] Current Patient Location: [facility] Accession/Order Number: [id number] Exam Date: 04/22/2025 15:23 Report Date: 04/22/2025 15:25 At the request of: NISHA FARRAR DPJudie Procedure: XR foot LT min 3V LEFT FOOT - 3 views CLINICAL HISTORY: lt foot pain, lt foot ulcer, lt foot deformity COMPARISON: Left foot 04/14/2022 FINDINGS: No focal soft tissue abnormality. PIP joint prosthesis second digit without hardware complication. Hallux valgus deformity. No acute bony process is seen. There appears to be bone loss involving the heads of the proximal phalanx of the third fourth and fifth digits similar to the prior study. Moderate degenerative changes of the IP joint of the first digit. Plantar spurring. XR/XR foot LT min 3V IMPRESSION: NO SIGNIFICANT CHANGE IN LEFT FOOT FINDINGS COMPARED TO THE PRIOR STUDY. NO HARDWARE COMPLICATION IS SEEN. Impression dictated by: Theron Guerra Jr., D.O. 04/22/2025 3:25 PM Dictation Location: [place] [address] Electronically authenticated by: [id number] Y Date: 04/22/2025 15:25
== END 2025-04-22 14:37 | disposition home or self-care (01) ==
LOC: RAD 14:42
PROVIDERS: PCP Family Medicine; Visit Provider Podiatrist Foot & Ankle Surgery
DX: M79.672 Pain in left foot (principal); M21.962 Unspecified acquired deformity of left lower leg; L97.529 Non-pressure chronic ulcer of other part of left foot with unspecified severity
CPT/HCPCS: 73630

== ENCOUNTER 2025-05-07 14:37 | Outpatient (OUT) | payer MEDICARE, OTHER, SELFPAY ==
--- OUTSIDE RECORDS SUMMARY | 2025-05-07 14:39 | XMS_ITS | Encounter Summary ---
Author Organization [facility] Address [address] [place] [address] Phone Care Team Providers Care Lead Php Developer Name Role Phone Nitish Agrawal DO Primary Care Provider [phone] Encounter Details Date Type Department Care Team (Late st Contact Info) Description 06/09/2022 Orders Only [facility] [address] [place] [address] Conversion, Onbase Social History Tobacco Use Types [...] Description 08/04/2025 11:10 AM EDT Office Visit [facility] 703 [facility] [address] [place] [address] Maritn Elias DO [address], [address] [place] [address] Scheduled Orders Name Type Priority Associated Diagnoses Orde r Schedule OUTSIDE LAB SCAN Lab Ordered: 06/09/2022 documented as of this encounter Visit Diagnoses Not on filedocumented in this encounter Care Teams Lead Php Developer Relationship Specialty Start Date End Date Nitish Agrawal DO [address] [place] [address] PCP - General 09/18/19 documented as of this encounter
--- OUTSIDE RECORDS SUMMARY | 2025-05-07 14:39 | XMS_ITS | Encounter Summary ---
Author Organization [facility] Address [address] [place] [address] Care Team Providers Care Sales And Service Change Leader Name Role Phone Lashaun Madison DO Unavailable [phone] Nitish Agrawal DO Primary Care Provider [phone] Elliot Elias MD Unavailable [phone] Ranjan Ivory MD Unavailable [phone] Encounter Details Date Type Department Care Team (Late st Contact Info) Description 08/06/2023 Abstract [facility] [address] [facility] [address] [place] [address] Lashaun Madison, [address] [facility] 230 [place] [address] Social History Tobacco Use Types Packs/Day Years [...] 09/21/2025 8:30 AM EST Office Visit [facility] [address] [place] [address] Lashaun Madison DO [address] [place] [address] 12/07/2025 10:00 AM EST Office Visit [facility] [address] [place] [address] Joyce Loyd NP [address] [place] [address] documented as of this encounter Visit Diagnoses Not on filedocumented in this encounter Care Teams Sales And Service Change Leader Relationship Specialty Start Date End Date Lashaun Madison DO [address] [place] [address] PCP - ACO Reach 03/29/23 Nitish Agrawal DO [address] [facility] 230 [place] [address] PCP - General Family Medicine 03/13/23 Elliot Elias MD 703 [facility] 2, [facility] 250 [place] [address] Referring Physician Cardiology 12/04/24 Ranjan Ivory MD [address] [place] [address] [place] [address] Referring Physician Podiatry 12/04/24 documented as of this encounter
--- OUTSIDE RECORDS SUMMARY | 2025-05-07 14:39 | XMS_ITS | Encounter Summary ---
Author Organization [facility] Address [address] [place] [address] Care Team Providers Care Bundle Collector Name Role Phone Lashaun Madison Judie DO Unavailable [phone] Nitish Agrawal DO Primary Care Provider [phone] Elliot Elias MD Unavailable [phone] Ranjan Ivory MD Unavailable [phone] Encounter Details Date Type Department Care Team (Late st Contact Info) Description 10/15/2023 Abstract [facility] [address] [place] [phone] Kiel Lozano, DPM [address] [place], [place] [phone] Social History Tobacco Use Types Packs/Day Years [...] 09/21/2025 8:30 AM EST Office Visit [facility] [address] [place] [address] Lashaun Madison, DO [address] [place] [address] 12/07/2025 10:00 AM EST Office Visit [facility] [address] [place] [address] Joyce Loyd, BRAKE RELINER [address] [place] [address] documented as of this encounter Visit Diagnoses Not on filedocumented in this encounter Care Teams Bundle Collector Relationship Specialty Start Date End Date Lashaun Madison, DO [address] [place] [address] PCP - ACO Reach 03/29/23 Nitish Agrawal DO [address] [place] [address] PCP - General Family Medicine 03/13/23 Elliot Elias MD 703 [facility] 2, [address] [place] [address] Referring Physician Cardiology 12/04/24 Ranjan Ivory MD [address] [place] [address] [place] [address] Referring Physician Podiatry 12/04/24 documented as of this encounter
--- OUTSIDE RECORDS SUMMARY | 2025-05-07 14:39 | XMS_ITS | Clinical Summary ---
Author Organization [facility] Address [address] [facility] [place] [address] Care Team Providers Care Seeing Eye Dog Teacher Name Role Phone Lashaun Madison Judie RICH Unavailable [phone] Nitish Martin DO Primary Care Provider [phone] Elliot Elias MD Unavailable [phone] Nisha Ivory MD Unavailable [phone] Allergies No known active allergies Medications isosorbide [...] chest pain. Active Blood Glucose Monitoring Suppl ([employer] Verio Flex System) w/Device kit Active glucose [...] any problems or questions. Janice Pandya is doing very well and encouraged on [...] have any problems or questions. Janice Pandya control is stable overall. , Will stay [...] any problems or questions. Janice Pandya is struggling to gain control of their [...] any problems or questions. 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 03/29/2016 Gastro-esophageal reflux disease without esophag itis 03/29/2016 Osteoarthritis of knee, unspecified 03/29/2016 Difficulty in walking, not elsewhere classified 03/29/2016 Muscle weakness (generalized) 03/29/2016 Other reduced mobility 03/29/2016 Diabetes mellitus due to und erlying condition with unspecified complications 03/29/2016 Difficulty walking 03/29/2016 Muscle weakness 03/29/2016 Reduced mobility 03/29/2016 Encounters Date Type Department Care Team Description 04/22/2025 Clinisync Result Encounter [facility] External Department Unsolicited Provider, Generic External Data 03/27/2025 8:45 AM EDT Office Visit [facility] [address] [place] [address] Lashaun Madison, DO Type 2 diabetes mellitus with stage 3a chronic kidney disease, without long-term current use of insulin (HCC); Type 2 diabetes mellitus with other circulatory complications (HCC) 03/27/2025 Orders Only [facility] [address] [place] [address] Joyce Loyd, COIL CLEANER Colon cancer screening (Primary Dx) 03/27/2025 Travel 03/01/2025 Refill [facility] [address] [place] [address] Lashaun Madison, DO Type 2 diabetes mellitus with other circulatory complications (HCC) 02/25/2025 Refill [facility] [address] [place] [address] Lashaun Madison, Type 2 diabetes mellitus [...] 8:30 AM EST Office Visit [facility] [address] [place] [address] Lashaun Madison DO [address] [place] [address] 12/07/2025 10:00 AM EST Office Visit [facility] [address] [place] [address] Joyce Loyd, LAZARO [address] [place], [place] [phone] Health Maintenance Due Date Last Done Comments CT Colonography 1955 Colonoscopy 1955 FIT 1955 FOBT 1955 Sigmoidoscopy 1955 Diabetes: Retinopathy Screening 06/27/2024 Colorectal Cancer Screening 03/27/2025 FIT-DNA 03/27/2025 03/27/2022, 03/06, 02/19/2019, Additional history exists Diabetes: Hemoglobin A1C 06/27/2025 025, 12/01/2024, 09/01/2024, Additional history exists Influenza Vaccine (#1) 2025 4, 08/21/2023, 08/02/2022, Additional history exists Diabetes: Urine Protein Screening 12/01/2025 12/01/2024, 12/28/2020, 12/23/2019, Additional history exists Pneumococcal Vaccine: 65+ Years Completed 12/04/2024, 08/25/2021, 11/05/2017, Additional history exists Procedures Procedure Name Priority Date/Time Associated Diagnosis Comments XR FOOT LT MIN 3V 04/22/2025 3:2 5 PM EDT POCT GLYCOSYLATED HEMOGLOBIN (HGB A1C) Routine 03/27/2025 8:57 AM EDT Type 2 diabetes mellitus with other circulatory complications (HCC) NUCLEAR STRESS TEST EXERCISE (CARD) 02/23/2025 8:09 AM EDT MICROALBUMIN / CREATININE URINE RATIO Routine 12/01/2024 10:03 AM EST Type 2 diabetes mellitus with other circulatory complications (HCC) COLOR FUNDUS PHOTOGRAPHY - OU - BOTH EYES Routine 06/27/2022 12:00 PM EDT LAB COLOGUARD COLON CANCER SCREEN Routine 03/27/2022 from Last 3 Months or Most Recently Relevant to Health Maintenance Results * XR FOOT LT MIN 3V (04/22/2025 3:25 PM EDT) Anatomical Region Laterality Modality Other 04/22/2025 3:25 PM EDT Narrative 04/22/2025 3:27 PM EDT The [address] [address] XRay Report Signed Patient: JANICE PANDYA MR#: [id number] : 1955 Acct:[id number] Age/Sex: 70 / M ADM Date: 04/22/25 Loc: RAD Attending Dr: Nisha Ivory D.P.M. Ordering Physician: Nisha Ivory D.P.M. Date of Service: 04/22/25 Procedure(s): XR foot LT min 3V Accession Number(s): [id number] cc: NITISH MARTIN ; Nisha Ivory D.P.M. [place] [address] Patient Name: JANICE PANDYA MRN: [id number] date: 1955 Sex: M Assigned Patient Location: RAD Current Patient Location: [facility] Accession/Order Number: [id number] Exam Date: 04/22/2025 15:23 Report Date: 04/22/2025 15:25 At the request of: NISHA IVORY DPJudie Procedure: XR foot LT min 3V LEFT FOOT - 3 views CLINICAL HISTORY: lt foot pain, lt foot ulcer, lt foot deformity COMPARISON: Left foot 04/14/2022 FINDINGS: No focal soft tissue abnormality. PIP joint prosthesis second digit without hardware complication. Hallux valgus deformity. No acute bony process is seen. There appears to be bone loss involving the heads of the proximal phalanx of the third fourth and fifth digits similar to the prior study. Moderate degenerative changes of the IP joint of the first digit. Plantar spurring. XR/XR foot LT min 3V IMPRESSION: NO SIGNIFICANT CHANGE IN LEFT FOOT FINDINGS COMPARED TO THE PRIOR STUDY. NO HARDWARE COMPLICATION IS SEEN. Impression dictated by: Theron Guerra Jr., D.O. 04/22/2025 3:25 PM Dictation Location: [place] [address] Electronically authenticated by: [id number] Y Date: 04/22/2025 15:25 Dictated By: Theron Guerra M.D. Signed By: 04/22/25 1527 DD/ 1525 TD/TT: English Instructor: Procedure Note Radiology, Radiologist, MD - 04/22/[address] [address] XRay Report Signed Patient: JANICE PANDYA R#: [id number] : 1955cct:[id number] Age/Sex: 70 / MADM Date: 04/22/25 Loc: RAD Attending Dr: Nisha Ivory D.P.M. Ordering Physician: Nisha Ivory D.P.M. Date of Service: 04/22/25 Procedure(s): XR foot LT min 3V Accession Number(s): [id number] cc: NITISH MARTIN ; Nisha Ivory D.P.M. The [place] [address] Patient Name: JANICE PANDYA MRN: [id number] date: 1955 Sex: M Assigned Patient Location: [facility] Current Patient Location: [facility] Accession/Order Number: [id number] Exam Date: 04/22/2025 15:23 Report Date: 04/22/2025 15:25 At the request of: NISHA IVORY DPJudie Procedure: XR foot LT min 3V LEFT FOOT - 3 views CLINICAL HISTORY: lt foot pain, lt foot ulcer, lt foot deformity COMPARISON: Left foot 04/14/2022 FINDINGS: No focal soft tissue abnormality. PIP joint prosthesis second digitwithout hardware complication. Hallux valgus deformity. No acute bony process is seen. There appears to be bone loss involving the heads of the proximal phalanx of the third fourth and fifth digits similar to the prior study. Moderate degenerative changes of the IP joint of the first digit. Plantar spurring. XR/XR foot LT min 3V IMPRESSION: NO SIGNIFICANT CHANGE IN LEFT FOOT FINDINGS COMPARED TO THE PRIOR STUDY.NO HARDWARE COMPLICATION IS SEEN. Impression dictated by: Theron Guerra Jr., D.O. 04/22/2025 3:25 PM Dictation Location: [place] [address] Electronically authenticated by: [id number] Y Date: 5:25 Dictated By: Theron Guerra M.D. Signed By:04/22/25 1527 DD/ 1525 TD/TT: English Instructor: us Generic External Data Provider [facility] Final Result * POCT glycosylated hemoglobin (Hb A1C) docked device (03/27/2025 8:57 AM EDT) Hemoglobin A1C 7.1 Blood Venous blood specimen / Unknown 03/27/2025 8:57 AM EDT us Lashaun Madison DO POINT OF CARE TEST ENTER/E DIT ORDERABLES Final Result * NUCLEAR STRESS TEST EXERCISE (CARD) (02/23/2025 8:09 AM EDT) Anatomical Region Laterality Modality Radiographic Kelly ging 02/23/2025 8:09 AM EDT Narrative 02/23/2025 6:21 PM EDT Source Facility: [facility] Interpreted By: Erika Carrion and Giannuzzi Michael STUDY: MYOCARDIAL PERFUSION STRESS TEST WITH LEXISCAN Performing facility: [facility], [address] [place] [address], [address], [place] [address] [facility] Provider: Ratna Elias DO, LOCATED WITHIN [facility] PCP: Dr. Vineet Martin Supervising provider: Yamilka Rebollar MD, FACC INDICATION: Signs/Symptoms:h/o pci, angina 2-3, palps, tachy. 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 COMPARISON: Previous nuclear testing completed at [facility]. ACCESSION NUMBER(S): [id number] ORDERING CLINICIAN: ZACH ELIAS TECHNIQUE: ONE DAY [...] Erika Carrion 02/23/2025 6:21 PM Dictation workstation: [id number] Procedure Note Radiology, Radiologist, - 02/24/2025 Source Facility: [facility] Interpreted By: Erika Carrion, Sahil Lopez STUDY: MYOCARDIAL PERFUSION STRESS TEST WITH LEXISCAN Performing facility: [facility], [address] [place] [address], [address], [place] [id number] [facility] Provider: Ratna Elias DO, FACC PCP: Dr. Vineet Martin Supervising provider: Yamilka Rebollar MD, [facility] INDICATION: Signs/Symptoms:h/o pci, angina 2-3, palps, tachy. 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 COMPARISON: Previous nuclear testing completed at [facility]. ACCESSION NUMBER(S): [id number] ORDERING CLINICIAN: ZACH ELIAS TECHNIQUE: ONE DAY [...] Erika Carrion 02/23/2025 6:21 PM Dictation workstation: [id number] Generic External Data Provider IMG XR PROCEDURES Final Result * (ABNORMAL) Microalbumin / creatinine urine ratio [...] - 12/02/2024 10:07 AM EST Performed at: [facility] [id number] Lipcoat Sprayer: Leonardo Stevens PhD, Phone: [phone] us Lashaun Madison DO LAB URINE ORDERABLES Final Result [facility] * Color Fundus Photography - OU - Both Eyes (06/27/2022 12:00 PM EDT) Anatomical Region Laterality Modality Head Fundus Photograp hy 06/27/2022 12:0 0 PM EDT Narrative 06/27/2022 12:00 PM EDT PERFORMED AT [facility] LOCATION:[id number] [facility] Procedure Note CONVERSION, GENERIC - 03/21/2023 PERFORMED AT [facility] LOCATION:[id number] [facility] us Lashaun Madison DO OPHTH PHOTOGRAPHY Final Re [...] screened with both Cologuard and colonoscopy. (Payam Calle et al, N Engl J Med 2014;370(14):1767-8352) The normal value (reference range) for this assay is negative. COLOGUARD RE-SCREENING RECOMMENDATION: Periodic colorectal cancer screening is an important part of preventive healthcare for asymptomatic individuals at average risk for colorectal cancer. Following a negative Cologuard result, the [place] [employer] Society and U.S. Multi-Society Task Force screening guidelines recommend a Cologuard re-screening interval of 3 years. References: [place] [employer] Guideline for Colorectal Cancer Screening: https://www.cancer.org/cancer/zpwsn-vcenpj-kdotpo/aykakktyk-emnvubvsn-jlgvaly/ac s-rec ommendations.html.; [place] CHAVEZ, Oren CR, Harvey RomanK, Colorectal Cancer Screening: Recommendations for Physicians and Patients from the U.S. Multi-Society Task Force on Colorectal Cancer Screening , Am J Gastroenterology 2017; 112:6432-5291. TEST DESCRIPTION: Composite algorithmic analysis of stool [...] screened with both Cologuard and colonoscopy. (Payam Pretty. et al, N Engl J Med 2014;370(14):2812-0567.) Cologuard may produce a false negative or false positive result (no colorectal cancer or precancerous polyp present at colonoscopy follow up). A negative Cologuard test result does not guarantee the absence of CRC or advanced adenoma (pre-cancer). The current Cologuard screening interval is every 3 years. ([place] [employer] Society and U.S. Multi-Society Task Force). Cologuard performance data in a 10,000 patient pivotal study using colonoscopy as the reference method can be accessed at the following location: www.Ignite100.Hotelscan/results. Additional description of the Cologuard test process, warnings and precautions can be found at www.cologuard.com. 03/27/2022 [facility] ORDERA BLES Final Result [facility] from Last 3 Months or Most Recently Relevant to Health Maintenance Insurance MEDICARE [employer] Care Teams Seeing Eye Dog Teacher Relationship Specialty Start Date End Date Lashaun Madison DO [address] [facility] 230 [place] [address] PCP - ACO Reach 03/29/23 Nitish Martin DO [address] [facility] [facility] 230 [place] [address] PCP - General Family Medicine 03/13/23 Elliot Elias MD 703 [facility] 2, [address] [place] [address] Referring Physician Cardiology 12/04/24 Nisha Ivory MD [address] [place] [address] [place] [address] Referring Physician Podiatry 12/04/24
--- OUTSIDE RECORDS SUMMARY | 2025-05-07 14:39 | XMS_ITS | Encounter Summary ---
Author Organization [facility] Address [address] [place] [address] Care Team Providers Care Rug Renovator Name Role Phone Lashaun Madison Judie DO Unavailable [phone] Nitish Agrawal DO Primary Care Provider [phone] Elliot Elias MD Unavailable [phone] Ranjan Ivory MD Unavailable [phone] Encounter Details Date Type Department Care Team (Late st Contact Info) Description 08/09/2023 Orders Only [facility] [address] [facility] [address] [place] [address] A, Unknown Practice [address] [place], [place] [address] Social History Tobacco Use Types Packs/Day Years [...] [address] [place] [address] Lashaun Madison DO [address] [place] [address] 12/07/2025 10:00 AM EST Office Visit [facility] [address] [place] [address] Joyce Loyd, LAZARO [address] [place] [address] documented as of this encounter Procedures Procedure [...] on filedocumented in this encounter Care Teams Rug Renovator Relationship Specialty Start Date End Date Lashaun Madison DO [address] [place] [address] PCP - ACO Reach 03/29/23 Nitish Agrawal DO [address] [place] [address] PCP - General Family Medicine 03/13/23 Elliot Elias MD 703 [facility] 2, [address] [place] [address] Referring Physician Cardiology 12/04/24 Ranjan Ivory MD [address] [place] [address] Dr LUCAS Bolivar, [facility] Referring Physician Podiatry 12/04/24 documented as of this encounter
--- OUTSIDE RECORDS SUMMARY | 2025-05-07 14:39 | XMS_ITS | Encounter Summary ---
Author Organization [facility] Address [address] [place] [address] Phone Care Team Providers Care Rice Dryer Mechanic Name Role Phone Nitish Agrawal DO Primary Care Provider [phone] Encounter Details Date Type Department Care Team (Late st Contact Info) Description 03/07/2021 Orders Only [facility] [address] [place] [address] Conversion, Onbase Social History Tobacco Use Types [...] Description 08/04/2025 11:10 AM EDT Office Visit [facility] 703 [facility] [address] [place] [address] Martin Elias DO [address] [place] [address] Scheduled Orders Name Type Priority Associated Diagnoses Orde r Schedule OUTSIDE LAB SCAN Lab Ordered: 03/07/2021 documented as of this encounter Visit Diagnoses Not on filedocumented in this encounter Care Teams Rice Dryer Mechanic Relationship Specialty Start Date End Date Nitish Agrawal DO [address] [place] [address] PCP - General 09/18/19 documented as of this encounter
--- OUTSIDE RECORDS SUMMARY | 2025-05-07 14:39 | XMS_ITS | Encounter Summary ---
Author Organization [facility] Address [address] [place] [address] Phone Care Team Providers Care Quality Engineer Name Role Phone Nitish Agrawal DO Primary Care Provider [phone] Encounter Details Date Type Department Care Team (Late st Contact Info) Description 11/07/2021 Orders Only [facility] [address] [place] [address] Conversion, Onbase Social History Tobacco Use Types [...] Description 08/04/2025 11:10 AM EDT Office Visit [facility] [address] [facility] [address] [place] [address] Martin Elias DO [address], [address] [place] [address] Scheduled Orders Name Type Priority Associated Diagnoses Orde r Schedule OUTSIDE LAB SCAN Lab Ordered: 11/07/2021 documented as of this encounter Visit Diagnoses Not on filedocumented in this encounter Care Teams Quality Engineer Relationship Specialty Start Date End Date Nitish Agrawal DO [address] [place] [address] PCP - General 09/18/19 documented as of this encounter
--- OUTSIDE RECORDS SUMMARY | 2025-05-07 14:39 | XMS_ITS | Clinical Summary ---
Author Organization [facility] Address [address] [place] [address] Phone Care Team Providers Care Cook Mess Name Role Phone Nitish Agrawal DO Primary Care Provider [phone] Allergies Active Allergy Reactions Criticality Noted Date [...] Encounters Date Type Department Care Team Description 05/07/[address] [place] [address] Franchesca Adan, ROSLYN POC 04/11/2025 Refill [facility] [address] [place] [address] Zach Queen DO Multiple vessel coronary artery disease; Hypertension, unspecified type 03/17/[address] [facility] [address] [place] [address] Franchesca Adan LPN 03/17/[address] [place] [address] Cristin Fulton RN 03/01/[address] [place] [address] Zach Queen DO Hyperlipidemia, unspecified hyperlipidemia type 02/23/2025 8:09 AM EDT - 02/23/2025 11:59 PM EDT Hospital Encounter [place] [address] [place] [address] Discharge Disposition: Home 02/23/2025 8:09 AM EDT - 02/23/2025 11:59 PM EDT Hospital Encounter [address] [address] Discharge Disposition: Home 02/23/2025 8:09 AM EDT - 02/23/2025 11:59 PM EDT Hospital Encounter [address] [address] Discharge Disposition: Home 02/23/2025 8:09 AM EDT - 02/23/2025 11:59 PM EDT Hospital Encounter [address] [address] Discharge Disposition: Home 02/23/2025 8:09 AM EDT - 02/23/2025 11:59 PM EDT Hospital Encounter [place] [address] [place] [address] Arteriosclerotic cardiovascular disease (ASCVD); History of coronary artery bypass graft; Status post angioplasty; Angina pectoris; Palpitations; Tachycardia Discharge Disposition: Home 02/22/2025 Travel 02/19/2025 Travel 02/17/2025 Telephone [facility] [address] [place] [address] Franchesca Adan LPN from Last 3 Months Immunizations Immunization Administration [...] 11:10 AM EDT Office Visit [facility] 703 [facility] [address] [place] [address] Zach Queen, [address] [facility] [address], [address] [place] [address] Health Maintenance Due Date Last Done Comments [...] Cancer Screening 03/27/2025 FIT-DNA (Cologuard) 03/27/2025 03/27/2022 Influenza Vaccine (#1) 2025 , 08/21/2023, 08/02/2022, Additional history exists Diabetes: Urine Protein Screening 12/01/2025 12/01/2024 Lipid Panel 12/01/2025 12/01/2024 TSH Level 12/01/2025 12/01/2024 RSV High Risk: (Elderly (60+) or Population) Completed 08/09/2023 Pneumococcal Vaccine Completed 12/04/2024, 08/25/2021, 11/05/2017, Additional history exists HIB Vaccines Aged Out No longer eligi ble based on patient's age to complete this topic HPV Vaccines (No Doses Required) Completed Hepatitis A Vaccines Aged Out No long [...] Status post angioplasty Angina pectoris Palpitations Tachycardia from Last 3 [...] Erika Carrion 02/23/2025 6:21 PM Dictation workstation: [id number] Narrative 02/23/2025 6:21 PM EDT Interpreted By: Erika Carrion and Giannuzzi Michael STUDY: MYOCARDIAL PERFUSION STRESS TEST WITH LEXISCAN Performing facility: [facility], [address] [place] [address], [address], [address] Provider: Ratna Queen DO, FACC PCP: Dr. Vineet Agrawal Supervising provider: Yamilka Rebollar MD, FACC INDICATION: Signs/Symptoms:h/o pci, angina 2-3, palps, tachy. ,I25.10 Atherosclerotic heart disease of beaver coronary artery without angina pectoris,Z95.1 Presence of [...] 1992. COMPARISON: Previous nuclear testing completed at [facility]. ACCESSION NUMBER(S): [id number] ORDERING CLINICIAN: ZACH QUEEN TECHNIQUE: ONE DAY [...] - 02/23/2025 Interpreted By: Erika Carrion and Giannuzzi Michael STUDY: MYOCARDIAL PERFUSION STRESS TEST WITH LEXISCAN Performing facility: [facility], [address] [place] [address], [address], [place] [address] [facility] Provider: Ratna Queen DO, FACC PCP: Dr. Vineet Agrawal Supervising provider: Yamilka Rebollar MD, FACC INDICATION: Signs/Symptoms:h/o pci, angina 2-3, palps, tachy. ,I25.10 Atherosclerotic heart disease of beaver coronary artery without angina pectoris,Z95.1 Presence of [...] 1992. COMPARISON: Previous nuclear testing completed at [facility]. ACCESSION NUMBER(S): [id number] ORDERING CLINICIAN: ZACH QUEEN TECHNIQUE: ONE DAY [...] Erika Carrion 02/23/2025 6:21 PM Dictation workstation: [id number] Zach Queen DO CV STRESS PROCEDURES Final Result from Last 3 Months Insurance [facility] MEDICARE SUPPLEMENT MEDICARE PART A AND B Care Teams Cook Mess Relationship Specialty Start Date End Date Nitish Agrawal DO [address] [place] [address] PCP - General 09/18/19
--- OUTSIDE RECORDS SUMMARY | 2025-05-07 14:39 | XMS_ITS | Encounter Summary ---
Author Organization [facility] Address [address] [place] [address] Care Team Providers Care Multi Site Leasing Consultant Name Role Phone Lashaun Madison DO Unavailable [phone] Nitish Agrawal DO Primary Care Provider [phone] Elliot Elias MD Unavailable [phone] Ranjan Ivory MD Unavailable [phone] Reason for Visit * Reason Comments Med Refill Encounter Details Date Type Department Care Team (Late st Contact Info) Description 03/04/2024 Refill [facility] [address] [facility] [address] [place] [phone] Lashaun Madison, DO [address] [facility] 230 [place] [address] Type 2 diabetes mellitus with [...] 09/21/2025 8:30 AM EST Office Visit [facility] [address] [place] [address] Lashaun Madison DO [address] [place] [address] 12/07/2025 10:00 AM EST Office Visit [facility] [address] [place] [address] Joyce Loyd, SCHOOL TRAFFIC SUPERVISOR [address] [place] [address] documented as of this encounter Visit Diagnoses Diagnosis Type 2 diabetes mellitus with other circulatory complications (HCC) documented in this encounter Care Teams Multi Site Leasing Consultant Relationship Specialty Start Date End Date Lashaun Madison DO [address] [place] [address] PCP - ACO Reach 03/29/23 Nitish Agrawal DO [address] [place] [address] PCP - General Family Medicine 03/13/23 Elliot Elias MD [facility] [facility], [address] [place] [address] Referring Physician Cardiology 12/04/24 Ranjan Ivory MD [address] [place] [address] Dr LUCAS [place], [facility]11 Referring Physician Podiatry 12/04/24 documented as of this encounter
--- OUTSIDE RECORDS SUMMARY | 2025-05-07 14:39 | XMS_ITS | Encounter Summary ---
Author Organization [facility] Address [address] [place] [address] Care Team Providers Care Kaiawhina Kohanga Reo Name Role Phone Lashaun Madison DO Unavailable [phone] Nitish Agrawal DO Primary Care Provider [phone] Elliot Elias MD Unavailable [phone] Ranjan Ivory MD Unavailable [phone] Encounter Details Date Type Department Care Team (Late st Contact Info) Description 07/30/2023 Abstract [facility] [address] [place] [phone] Kiel Lozano, DPM [address] [place] [address] Social History Tobacco Use Types Packs/Day Years [...] Visit [facility] [address] [facility] 230 [place] [address] Lashaun Madison DO [address] [facility] 230 [place] [address] 12/07/2025 10:00 AM EST Office Visit [facility] [address] [place] [address] Jyoce Loyd, GUN TESTER [address] [place] [address] documented as of this encounter Visit Diagnoses Not on filedocumented in this encounter Care Teams Kaiawhina Kohanga Reo Relationship Specialty Start Date End Date Lashaun Madison DO [address] [place] [address] PCP - ACO Reach 03/29/23 Nitish Agrawal DO [address] [place] [address] PCP - General Family Medicine 03/13/23 Elliot Elias MD [address] [place] [address] 2, [address] [place] [address] Referring Physician Cardiology 12/04/24 Ranjan Ivory MD [address] [place] [address] [place] [address] Referring Physician Podiatry 12/04/24 documented as of this encounter
--- OUTSIDE RECORDS SUMMARY | 2025-05-07 14:39 | XMS_ITS | Encounter Summary ---
Author Organization [facility] Address [address] [place] [address] Care Team Providers Care Fabrication Lead Name Role Phone Lashaun Madison DO Unavailable [phone] Nitish Agrawal DO Primary Care Provider [phone] Elliot Elias MD Unavailable [phone] Ranjan Ivory MD Unavailable [phone] Encounter Details Date Type Department Care Team (Late st Contact Info) Description 06/30/2023 Abstract [facility] [address] [place] [phone] Kiel Lozano, DPM [address] [place], [place] [id number] Social History Tobacco Use Types Packs/Day Years [...] Visit [facility] [address] [facility] 230 [place] [phone] Lashaun Madison DO [address] [facility] 230 [place] [address] 12/07/2025 10:00 AM EST Office Visit [facility] [address] [place] [address] Joyce Loyd, VARYING EXCEPTIONALITIES TEACHER [address] [place] [address] documented as of this encounter Visit Diagnoses Not on filedocumented in this encounter Care Teams Fabrication Lead Relationship Specialty Start Date End Date Lashaun Madison DO [address] [place] [address] PCP - ACO Reach 03/29/23 Nitish Agrawal DO [address] [place] [address] PCP - General Family Medicine 03/13/23 Elliot Elias MD [address] [place] [address] 2, [address] [place] [address] Referring Physician Cardiology 12/04/24 Ranjan Ivory MD [address] [place] [address] [place] [address] Referring Physician Podiatry 12/04/24 documented as of this encounter
--- OUTSIDE RECORDS SUMMARY | 2025-05-07 14:39 | XMS_ITS | Encounter Summary ---
Author Organization [facility] Address [address] [place] [address] Care Team Providers Care Tube Fitter Name Role Phone Lashaun Madison DO Unavailable [phone] Nitish Agrawal DO Primary Care Provider [phone] Elliot Elias MD Unavailable [phone] Ranjan Ivory MD Unavailable [phone] Encounter Details Date Type Department Care Team (Late st Contact Info) Description 07/19/2023 Abstract [facility] [address] [place] [phone] Kiel Lozano, DPM [address] [place] [address] Social History Tobacco Use Types Packs/Day Years [...] Visit [facility] [address] [facility] 230 [place] [address] Lashaun Madison DO [address] [facility] 230 [place] [address] 12/07/2025 10:00 AM EST Office Visit [facility] [address] [place] [address] Joyce Loyd, GIN CLERK [address] [place] [address] documented as of this encounter Visit Diagnoses Not on filedocumented in this encounter Care Teams Tube Fitter Relationship Specialty Start Date End Date Lashaun Madison DO [address] [place] [address] PCP - ACO Reach 03/29/23 Nitish Agrawal DO [address] [place] [address] PCP - General Family Medicine 03/13/23 Elliot Elias MD [address] [place] [address] 2, [address] [place] [address] Referring Physician Cardiology 12/04/24 Ranjan Ivory MD [address] [place] [address] [place] [address] Referring Physician Podiatry 12/04/24 documented as of this encounter
--- OUTSIDE RECORDS SUMMARY | 2025-05-07 14:39 | XMS_ITS | Clinical Summary ---
Author Organization [facility] [employer] [facility] [employer] Address [facility]-[id number] [address] [place] [address] Care Team Providers Care Restaurant Line Server Name Role Phone Brittany York Primary Care Provider [phone] Social History Tobacco Use Types Packs/Day Years [...] Medical Devices Not on file Care Teams Restaurant Line Server Relationship Specialty Start Date End Date Brittany York APRN-CNP [address] [place] [address] PCP - General Family Medicine 01/12/21
--- OUTSIDE RECORDS SUMMARY | 2025-05-07 14:39 | XMS_ITS | Encounter Summary ---
Author Organization [facility] Address [address] [place] [address] Care Team Providers Care Svp Group Director Name Role Phone Lashaun Madison DO Unavailable [phone] Nitish Agrawal DO Primary Care Provider [phone] Elliot Elias MD Unavailable [phone] Ranjan Ivory MD Unavailable [phone] Encounter Details Date Type Department Care Team (Late st Contact Info) Description 04/09/2023 Orders Only [facility] [address] [place] [address] Nitish Agrawal DO [address] [place] [address] Social History Tobacco Use Types Packs/Day Years [...] 09/21/2025 8:30 AM EST Office Visit [facility] [address] [place] [address] Lashaun Madison DO [address] [place] [address] 12/07/2025 10:00 AM EST Office Visit [facility] [address] [place] [address] Joyce Loyd, VISITING NURSE [address] [facility] 230 [place] [address] documented as of this encounter Procedures Procedure [...] on filedocumented in this encounter Care Teams Svp Group Director Relationship Specialty Start Date End Date Lashaun Madison DO [address] [facility] 230 [place] [address] PCP - ACO Reach 03/29/23 Nitish Agrawal DO [address] [facility] 230 [place] [address] PCP - General Family Medicine 03/13/23 Elliot Elias MD 703 [facility] 2, [facility] 250 [place] [address] Referring Physician Cardiology 12/04/24 Ranjan Ivory MD [address] [place] [address] [place] [address] Referring Physician Podiatry 12/04/24 documented as of this encounter
--- OUTSIDE RECORDS SUMMARY | 2025-05-07 14:39 | XMS_ITS | Encounter Summary ---
Author Organization [facility] Address [address] [place] [address] Phone Care Team Providers Care Welding Equipment Sales Representative Name Role Phone TanjaNitish owen Primary Care Provider [phone] Reason for Visit * Reason Onset Date Comments POC 05/07/2025 Encounter Details Date Type Department Care Team (Late st Contact Info) Description 05/07/2025 Telephone [place] [id number] [address] Franchesca Adan LPN POC Social History Tobacco Use Types Packs/Day Years [...] encounter Miscellaneous Notes * Telephone Encounter - Franchesca Adan LPN - 05/07/2025 1:10 PM EDT POC form completed and signed. Faxed to Dr. Ivory office approval given for metatarsal excision. Form to be scanned to chart. documented in this encounter Plan of Treatment Upcoming Encounters Date Type Department Care Team (Late st Contact Info) Description 08/04/2025 11:10 AM EDT Office Visit [facility] [address] [facility] [address] [place] [address] Martin Elias DO [address] [facility] [address], [address] [place] [address] documented as of this encounter Visit Diagnoses Not on filedocumented in this encounter Additional Health Concerns Assessment Noted Time A fall risk assessment has been complete d for the patient 01/29/2024 2:36 PM EDT documented as of this encounter Care Teams Welding Equipment Sales Representative Relationship Specialty Start Date End Date Nitish Agrawal DO [address] [place] [phone] PCP - General 09/18/19 documented as of this encounter
--- OUTSIDE RECORDS SUMMARY | 2025-05-07 14:39 | XMS_ITS | Encounter Summary ---
Author Organization [facility] Address [address] [place] [address] Care Team Providers Care Taxicab Driver Name Role Phone Lashaun Madison Judie DO Unavailable [phone] Nitish Agrawal DO Primary Care Provider [phone] Elliot Elias MD Unavailable [phone] Ranjan Ivory MD Unavailable [phone] Encounter Details Date Type Department Care Team (Late st Contact Info) Description 02/19/2024 Abstract [facility] 230 [address] [facility] [address] [place] [address] Nitish Agrawal, [address] [facility] 230 [place] [address] Social History Tobacco Use Types Packs/Day Years [...] 09/21/2025 8:30 AM EST Office Visit [facility] [address] [place] [address] Lashaun Madison, DO [address] [place] [address] 12/07/2025 10:00 AM EST Office Visit [facility] [address] [place] [address] Joyce Loyd, COMMUNITY HEALTH NURSING DIRECTOR [address] [place] [address] documented as of this encounter Visit Diagnoses Not on filedocumented in this encounter Care Teams Taxicab Driver Relationship Specialty Start Date End Date Lashaun Madison DO [address] [place] [address] PCP - ACO Reach 03/29/23 Nitish Agrawal DO [address] [place] [address] PCP - General Family Medicine 03/13/23 Elliot Elias MD 703 [facility] 2, [address] [place] [address] Referring Physician Cardiology 12/04/24 Ranjan Ivory MD [address] [place] [address] [place] [address] Referring Physician Podiatry 12/04/24 documented as of this encounter
--- OUTSIDE RECORDS SUMMARY | 2025-05-07 14:39 | XMS_ITS | Encounter Summary ---
Author Organization [facility] Address [address] [place] [address] Care Team Providers Care Pilot Boat Operator Name Role Phone Lashaun Madison DO Unavailable [phone] Nitish Agrawal DO Primary Care Provider [phone] Elliot Elias MD Unavailable [phone] Ranjan Ivory MD Unavailable [phone] Encounter Details Date Type Department Care Team (Late st Contact Info) Description 02/19/2024 Abstract [facility] 230 [address] [facility] 230 [place] [address] Lashaun Madison, [address] [facility] 230 [place] [address] Social History Tobacco Use Types Packs/Day Years [...] 09/21/2025 8:30 AM EST Office Visit [facility] [address] [place] [address] Lashaun Madison, DO [address] [place] [address] 12/07/2025 10:00 AM EST Office Visit [facility] [address] [place] [address] Joyce Loyd, CATTLE MANAGER [address] [place] [address] documented as of this encounter Visit Diagnoses Not on filedocumented in this encounter Care Teams Pilot Boat Operator Relationship Specialty Start Date End Date Lashaun Madison, DO [address] [place] [address] PCP - ACO Reach 03/29/23 Nitish Agrawal DO [address] [place] [address] PCP - General Family Medicine 03/13/23 Elliot Elias MD [address] [facility] 2, [address] [place] [address] Referring Physician Cardiology 12/04/24 Ranjan Ivory MD [address] [place] [address] [place] [address] Referring Physician Podiatry 12/04/24 documented as of this encounter
--- OUTSIDE RECORDS SUMMARY | 2025-05-07 14:39 | XMS_ITS | Encounter Summary ---
Author Organization [facility] Address [address] [place] [address] Phone Care Team Providers Care Service Sprinkler Helper Name Role Phone Nitish Agrawal DO Primary Care Provider [phone] Encounter Details Date Type Department Care Team (Late st Contact Info) Description 01/15/[address] [facility] [address] [place] [address] Conversion, Onbase Social History Tobacco Use Types [...] Description 08/04/2025 11:10 AM EDT Office Visit [facility] [address] [facility] [address] [place] [address] Martin Elias DO 703 [facility] 2, [address] [place] [address] Scheduled Orders Name Type Priority Associated Diagnoses Orde r Schedule OUTSIDE LAB SCAN Lab Ordered: 01/15/2019 documented as of this encounter Visit Diagnoses Not on filedocumented in this encounter Care Teams Service Sprinkler Helper Relationship Specialty Start Date End Date Nitish Agrawal DO [address] [place] [address] PCP - General 09/18/19 documented as of this encounter
== END 2025-05-07 14:38 | disposition home or self-care (01) ==
LOC: WC 14:37
PROVIDERS: PCP Family Medicine; Visit Provider Physician Assistant
DX: E11.621 Type 2 diabetes mellitus with foot ulcer (principal); L97.425 Non-pressure chronic ulcer of left heel and midfoot with muscle involvement without evidence of necrosis
CPT/HCPCS: 11043

== ENCOUNTER 2025-05-15 09:51 | Outpatient (OUT) | payer MEDICARE, OTHER, SELFPAY ==
--- OUTSIDE RECORDS SUMMARY | 2025-05-15 10:02 | XMS_ITS | CCD ---
Author Organization [facility] CliniSywy Care Team Providers Care Project Management Manager Name Role Phone NITISH [phone] UNKNOWN Unavailable Unavailable Ayisire, Eseoghene N Unavailable [...] WYATT Consulting Unavailable JESSICA STEIN Consulting Unavailable HELAG GOLDBERG Consulting Unavailable PATRICIA, JUNIOR H Consulting Unavailable WILIAN ., LILA Consulting [...] Unavailable HIGHLANDER, NISHA Núñez Attending Unavailable HIGHLANDER, NSIHA Núñez Admitting Unavailable HIGHLANDER, NISHA Núñez Admitting [...] Primary Care Provider Lashaun Bradley DO Unavailable [phone] Nitish Agrawal DO Primary Care Provider [phone] Elliot Elias MD Unavailable [phone] Nisha Farrar MD Unavailable [phone] Nitish Agrawal DO Primary Care Provider [phone] Elliot Elias MD Unavailable MARTIN ELIAS Referring Unavailable NITISH AGRAWAL Primary Care Unavailable LASHAUN BRADLEY Attending Unavailable NITISH AGRAWAL Referring Unavailable NITISH AGRAWAL Attending Unavailable LASHAUN BRADLEY Attending Unavailable NITISH AGRAWAL Referring Unavailable JOYCE LOYD Attending Unavailable LATHA CAICEDO Attending Unavailable LASHAUN BRADLEY Attending Unavailable NITISH AGRAWAL Attending Unavailable NITISH AGRAWAL [...] Inhibitors] Allergy to drug (finding) 3 Hypotension [facility] Repository (7 sources) Angiotensin-conv erting enzyme inhibitor agent Drug Intolerance 3 Unknown [facility] Medications Current Medications Medication Drug Class(es) [...] (Lipitor) 20 MG tablet Indications: Mixed hyperlipidemia TAKE 1 TABLET BY MOUTH EVERY DAY IN THE EVENING FOR 90 DAYS 90 tablet 3 10/15/2024 Active Atorvastatin Jacki cium Active Blood Glucose Monitoring Suppl (beModeluch Verio Flex System) w/Device kit (20 sources) Blood Glucose Monitoring Suppl (OneTouch Verio [...] TABLET BY MOUTH EVERY DAY 90 tablet 03/02/2025 Active 0.5 ml dulaglutide 3 mg/ml auto-injector [...] ve hydrOXYzine hydrochloride 25 mg oral tablet (3 sources) Antihistamine Start: 01-29-2025 take 2 tablets [...] Start: 10-20-2021 take 1 tablet by rob once daily Isosorbide Mononitrate ER 30 MG Oral Tablet Extended Release 24 Hour TAKE 1 TABLET DAILY. Quantity: 90 Refills: 3 Ordered: 20-Oct-2021 Helga Flores DO Start : 20-Oct-2021 Active ammonium lactate 120 mg/ml topical lotion (4 sources) Start: 11-25-2024 ammonium lacta te (Lac-Hydrin) [...] release oral tablet (20 sources) Biguanide Start: 02-25-2025 take 1 tablet by mouth twice daily metFORMIN XR (Glucophage-XR) 500 MG 24 hr tablet Indications: Type 2 diabetes mellitus with other circulatory complications (HCC) TAKE 1 TABLET BY MOUTH TWICE A DAY 180 tablet 1 02/25/2025 Active Start: 03-03-2024 metFORMIN XR 5 00 mg [...] (Ozempic, 2 MG/DOSE,) 8 MG/3ML solution pen-injector (14 sources) Start: 09-01-2024 inject 2 mg by [...] 09/01/2024 Active sertraline 50 mg oral tablet (3 sources) Serotonin Reuptake Inhibitor Start: 01-29-2025 End: [...] Anxiety; Translations: [Anxiety disorder, unspecified] 01-29-2025 Chronic Chronic kidney disease (20 sources) Chronic kidney disease stage 3A ; Translations: [Stage 3a chronic kidney disease (CKD)] Onset: 08-09-2023 08-09-2023 Chronic Chronic ulcer of skin (9 sources) Non-pressure chronic ulcer of other part of right foot limited to breakdown of skin; Translations: [Non-pressure chronic ulcer of other part of right foot with fat layer exposed] Onset: 03-28-2022 Chronic Congestive heart failure; nonhypertensive (18 sources) Congestive heart failure stage C; Translations: [Congestive heart failure, unspecified] Onset: 08-31-2023 08-31-2023 Chronic Coronary atherosclerosis and other heart disease (20 sources) Multi vessel coronary artery disease; Translations: [Coronary atherosclerosis of unspecified type of vessel, [place] or graft] Onset: 03-29-2016 01-29-2024 Chronic Diabetes mellitus with complications (20 sources) Type [...] hyperlipidemia] Onset: 12-05-2022 01-29-2024 Chronic Esophageal disorders (20 sources) Gastroesophageal reflux disease without esophagitis; Translations: [...] RT ANKLE FOOT] Onset: 03-28-2022 Chronic Osteoarthritis (20 sources) Osteoarthritis of knee; Translations: [Osteoarthritis of knee, unspecified] Onset: 03-29-2016 08-06-2023 Chronic Other acquired deformities (1 source) Contracture, left ankle; Translations: [CONTRACTURE LEFT ANKLE] Onset: 12-05-2022 Chronic Other bone disease and musculoskeletal deformities (2 sources) Absence of toe; Translations: [Acquired absence of other right toe(s)] 08-04-2024 Episodic Other nervous system disorders (12 sources) Difficulty walking; Translations: [Difficulty in walking, not elsewhere classified] Onset: 03-29-2016 01-28-2025 Chronic Other nutritional; endocrine; and metabolic disorders (10 sources) Obesity; Translations: [Obesity, unspecified] Chronic Other skin disorders (5 sources) Corns and [...] RT FOOT] Onset: 07-13-2022 Episodic Administrative/social admission (12 sources) Reduced mobility; Translations: [Other reduced mobility] Onset: 03-29-2016 01-28-2025 Episodic Cardiac dysrhythmias (20 sources) Palpitations; Translations: [Tachycardia] Onset: 01-28-2025 01-28-2025 Episodic Coronary atherosclerosis and other heart disease (4 sources) Presence of aortocoronary bypass graft; Translations: [Presence of aortocoronary bypass graft] Onset: 08-31-2023 Episodic Deficiency and other anemia (20 sources) Anemia; Translations: [Anemia, unspecified] Onset: 03-29-2016 08-06-2023 Episodic Mood disorders (9 sources) Mood disorders Onset: 12-04-2024 12-04-2024 Mycoses (5 sources) Tinea unguium; Translations: [TINEA UNGUIUM] Onset: 10-24-2022 Episodic Other aftercare (1 source) long term acute care registered nurse (current) use of aspirin; Translations: [ASSEMBLER BICYCLE CURRENT USE OF ASPIRIN] Onset: 03-28-2022 Episodic Other aftercare (1 source) Other custodial (current) drug therapy; Translations: [OTH CUSTODIAL CURRENT DRUG THERAPY] Onset: 03-28-2022 Episodic Other aftercare (2 sources) halfway (current) use of insulin; Translations: [long term acute care registered nurse (current) use of insulin (Multi)] Onset: 08-31-2023 Episodic Other bone disease and musculoskeletal deformities (1 source) Acquired absence of other right toe(s); Translations: [ACQUIRED ABSENCE OTHER RIGHT TOES] Onset: 12-05-2022 Episodic Other circulatory disease (20 sources) Patient post angioplasty; Translations: [Other postprocedural status] Onset: 08-31-2023 01-29-2024 Episodic Other circulatory disease (4 sources) Peripheral vascular angioplasty status; Translations: [Peripheral vascular angioplasty status] Onset: 08-31-2023 Episodic Other connective tissue disease (1 source) Plantar fascial fibromatosis; Translations: [PLANTAR FASCIAL FIBROMATOSIS] Onset: 12-05-2022 Episodic Other connective tissue disease (4 sources) Pain in right foot; Translations: [PAIN IN RIGHT FOOT] Onset: 11-28-2022 Episodic Other connective tissue disease (12 sources) Muscle weakness; Translations: [Muscle weakness (generalized)] [...] Episodic Other nutritional; endocrine; and metabolic disorders (19 sources) Overweight in adulthood with body mass index of 25 or more but less than 30; Translations: [Overweight] Onset: 01-29-2024 01-29-2024 Episodic Other nutritional; endocrine; and metabolic disorders (2 sources) Body mass index (BMI) 28.0-28.9, adult; Translations: [Body mass index (BMI) 28.0-28.9, adult] Onset: 01-28-2025 Episodic Other screening for suspected conditions (not [...] 10-10-2021 Resolved: 10-10-2021 Episodic Residual codes; unclassified (15 sources) Never smoked tobacco; Translations: [Other specified health status] Onset: 01-29-2024 01-29-2024 Episodic Residual codes; unclassified (2 sources) Other specified health status; Translations: [Other specified health status] Onset: 01-29-2024 Episodic Skin and subcutaneous tissue infections [...] Test Name Value Interpretation Reference Range Facility XR FOOT LT MIN 3Von 04-22-20 [place] [address] XRay Report Signed Patient: JANICE FORD MR#: [id number] : 1955 Acct:[id number] Age/Sex: 70 / M ADM Date: 04/22/25 Loc: RAD Attending Dr: Nisha Farrar D.P.M. Ordering Physician: Nisha Farrar D.P.M. Date of Service: 04/22/25 Procedure(s): XR foot LT min 3V Accession Number(s): [id number] cc: NITISH AGRAWAL ; Nisha Farrar D.P.M. [address] [address] Patient Name: JANICE FORD MRN: [id number] date: 1955 Sex: M Assigned Patient Location: RAD Current Patient Location: RAD Accession/Order Number: [id number] Exam Date: 04/22/2025 15:23 Report Date: 04/22/2025 15:25 At the request of: NISHA FARRAR DPJudie Procedure: XR foot LT min 3V [...] Jr., D.O. 04/22/2025 3:25 PM Dictation Location: [place] [address] Electronically authenticated by: [id number] Y Date: 04/22/2025 15:25 Dictated By: Theron Guerra M.D. Signed By: 04/22/25 1527 DD/ 1525 TD/TT: Office Systems Technology Instructor: [facility] Radiology, Radiologist, MD - 04/22/2025 [place] [address] XRay Report Signed Patient: JANICE FORD MR#: [id number] : 1955 Acct:[id number] Age/Sex: 70 / M ADM Date: 04/22/25 Loc: RAD Attending Dr: Nisha Farrar D.P.M. Ordering Physician: Nisha Farrar D.P.M. Date of Service: 04/22/25 Procedure(s): XR foot LT min 3V Accession Number(s): [id number] cc: NITISH AGRAWAL ; Nisha Farrar D.P.M. The [address] [address] Patient Name: JANICE FORD MRN: [facility]:[id number] date: 1955 Sex: M Assigned Patient Location: RAD Current Patient Location: RAD Accession/Order Number: [id number] Exam Date: 04/22/2025 15:23 Report Date: 04/22/2025 15:25 At the request of: NISHA FARRAR DPM Procedure: XR foot LT min 3V LEFT [...] Jr., D.O. 04/22/2025 3:25 PM Dictation Location: [place] [address] Electronically authenticated by: [id number] Y Date: 04/22/2025 15:25 Dictated By: Theron Guerra M.D. Signed By: 04/22/25 1527 DD/ 1525 TD/TT: Office Systems Technology Instructor: [facility] Radiology Study observation (narrative) [facility] XR FOOT LT MIN 3VOrdered By: Radiologist Radiology on 04-22-2025 [facility] Work Phone: nm Heart Perfusion W stress and W radionuclide [...] Erika Osborne 02/23/2025 6:21 PM Dictation workstation: [id number] Interpreted By: Erika Osborne, and Maine Lopez STUDY: MYOCARDIAL PERFUSION STRESS TEST WITH LEXISCAN Performing facility: [facility], [address] [place] [address], [address], [place] [address] [facility] Provider: Ratna Elias DO, [facility] PCP: Dr. Vineet Agrawal Supervising provider: Yamilka Rebollar MD, [facility] INDICATION: Signs/Symptoms:h/o pci, angina 2-3, palps, tachy. ,I25.10 Atherosclerotic heart disease of [place] coronary artery without angina pectoris,Z95.1 Presence of [...] 1992. COMPARISON: Previous nuclear testing completed at [facility]. ACCESSION NUMBER(S): [id number] ORDERING CLINICIAN: MARTIN ELIAS TECHNIQUE: ONE DAY [...] PERFUSION STRESS TEST WITH LEXISCAN Performing facility: [facility], [address] [place] [address], [address], [place] [address] [facility] Provider: Ratna Elias DO, FACC PCP: Dr. Vineet Agrawal Supervising provider: Yamilka Rebollar MD, FACC INDICATION: Signs/Symptoms:h/o pci, angina 2-3, palps, tachy. ,I25.10 Atherosclerotic heart disease of [place] coronary artery without angina pectoris,Z95.1 Presence of [...] 1992. COMPARISON: Previous nuclear testing completed at [facility]. ACCESSION NUMBER(S): [id number] ORDERING CLINICIAN: MARTIN ELIAS TECHNIQUE: ONE DAY [...] Erika Osborne 02/23/2025 6:21 PM Dictation workstation: [id number] [facility] Work Phone: Radiology Study observation (narrative) [facility] Work Phone: NM Heart Perfusion W stress and W radionuclide IVOrdered By: Erika Osborne on 02-23-2025 [facility] Work Phone: NUCLEAR STRESS TESTon 2024 NUCLEAR STRESS TEST Interpreted By: Erika Osborne and Maine Lopez STUDY: MYOCARDIAL PERFUSION STRESS TEST WITH LEXISCAN Performing facility: [facility], [address], [address], [place] [address] [facility] Provider: Ratna Elias DO, FACC PCP: Dr. Vineet Agrawal Supervising provider: Yamilka Rebollar MD, FACC INDICATION: Signs/Symptoms:h/o pci, angina 2-3, palps, tachy. ,I25.10 Atherosclerotic heart disease of [place] coronary artery without angina pectoris,Z95.1 Presence of [...] 1992. COMPARISON: Previous nuclear testing completed at [facility]. ACCESSION NUMBER(S): [id number] ORDERING CLINICIAN: MARTIN ELIAS TECHNIQUE: ONE DAY [...] Erika Osborne 02/23/2025 6:21 PM Dictation workstation: [id number] [facility] NUCLEAR STRESS TEST EXERCISE (CARD)on 02-23-2025 Source Facility: [facility] Interpreted By: Erika Osborne, and Maine Lopez STUDY: MYOCARDIAL PERFUSION STRESS TEST WITH LEXISCAN Performing facility: [facility], [address], [address], [place] [address] [facility] Provider: Ratna Elias DO, FACC PCP: Dr. Vineet Agrawal Supervising provider: Yamilka Rebollar MD, FACC INDICATION: Signs/Symptoms:h/o pci, angina 2-3, palps, tachy. ,I25.10 Atherosclerotic heart disease of [place] coronary artery without angina pectoris,Z95.1 Presence of [...] 1992. COMPARISON: Previous nuclear testing completed at [facility]. ACCESSION NUMBER(S): [id number] ORDERING CLINICIAN: MARTIN ELIAS TECHNIQUE: ONE DAY [...] Erika Osborne 02/23/2025 6:21 PM Dictation workstation: [id number] Radiology, Radiologist, - 02/24/2025 Source Facility: [facility] Interpreted By: Erika Osborne and Giannuzzi Michael STUDY: MYOCARDIAL PERFUSION STRESS TEST WITH LEXISCAN Performing facility: [facility], [address] [place] [address], [address], [place] [id number] [facility] Provider: Ratna Elias DO, FACC PCP: Dr. Vineet Agrawal Supervising provider: Yamilka Rebollar MD, FACC INDICATION: Signs/Symptoms:h/o pci, angina 2-3, palps, tachy. ,I25.10 Atherosclerotic heart disease of [place] coronary artery without angina pectoris,Z95.1 Presence of [...] 1992. COMPARISON: Previous nuclear testing completed at [facility]. ACCESSION NUMBER(S): [id number] ORDERING CLINICIAN: MARTIN ELIAS TECHNIQUE: ONE DAY [...] Erika Osborne 02/23/2025 6:21 PM Dictation workstation: [id number] [facility] Radiology Study observation (narrative) [facility] NUCLEAR STRESS TEST EXERCISE (CARD)Ordered By: Radiologist Radiology on 02-23-2025 [facility] Work Phone: ALL BASIC METABOLIC PANELon 01-28-2025 Anion gap [Moles/Vol] 13.7 mmol/L [facility] Calcium [Mass/Vol] 8.8 mg/dL 8.5 - 10. 1 mg/dL [facility] Chloride [Moles/Vol] 104 mmol/L 98 - 10 7 mmol/L [facility] CO2 [Moles/Vol] 25.7 mmol/L 21.0 - 32.0 mmol/L [facility] Creatinine [Mass/Vol] 1.39 mg/dL High 0.70 - 1.30 mg/dL [facility] GFR/1.73 sq M.predicted CKD-EPI (S/P/Bld) [Vol rate/Area] >60 >=60 mL/min/1.73m 2 [facility] Glucose [Mass/Vol] 150 mg/dL High 74 - 106 mg/dL [facility] Potassium [Moles/Vol] 4.4 mmol/L 3.5 - 5.1 mmol/L [facility] Sodium [Moles/Vol] 139 mmol/L 136 - 145 mmol/L [facility] TBH EGFR-NON AF SRI LANKAN 51 Low >=60 mL/min/1.73m 2 [facility] Urea nitrogen [Mass/Vol] 25 mg/dL High 7.0 - 18.0 mg/dL [facility] Urea nitrogen/Creatinine [Mass ratio] 18 mg/mg [facility] ALL PRO BNPon 01-28-2025 NT PRO B TYPE NATRIURETIC PEPT 1185 pg/mL High NINF - 900.0 pg/mL [facility] No Panel Informationon 01-28 Interpretation and review of laboratory results Abnormal [facility] HbA1c (Bld) [Mass fraction]o n 12-01-2024 Interpretation and review of laboratory results [facility] - Hematology and Cell countson 12-01-2024 HbA1c (Bld) [Mass fraction] 7.7 % [facility] [place] HbA1c (Bld) [Mass fraction]o n 09-01-2024 Interpretation and review of laboratory results Abnormal [facility] [employer] [facility] Laboratory - Hematology and Cell countson 09-01-2024 HbA1c (Bld) [Mass fraction] 8.6 % [facility] [place] No Panel Informationon 06-27 [facility] Carcinoembryonic Ag [Mass/Vo l]on 06-20-2024 Performing Organization Information Site ID: QPT Name: [facility] Address: [address] [place] [address], [address] [place] [id number] Director: Edil Bedolla MD [facility] [place] Laboratory - Chemistry and C hemistry - challengeon 06-20-2024 Calcitonin [Mass/Vol] 6 pg/mL NINF - 10 pg/mL [facility] Comment on above: This test was performed using the Siemens Chemiluminescent method. Values obtained with different assay methods cannot be used interchangeably. Calcitonin levels, regardless of value, should not be interpreted as absolute evidence of the presence or absence of the disease. Carcinoembryonic Ag [Mass/Vol] ng/mL See Note: ng/mL [facility] Comment on above: Reference Range: Non-Smoker: <2.5 Smoker: <5.0 This test was performed using the Siemens chemiluminescent method. Values obtained from different assay methods cannot be used interchangeably. CEA levels, regardless of value, should not be interpreted as absolute evidence of the presence or absence of disease. No Panel Informationon 06-20 Performing Organization Information Site ID: AMD Name: [facility] Address: [address] [place] [address] [place] [address] Director: Huan Tate M.D.,PhD [facility] [employer] US THYROIDon 06-16-2024 US THYROID EXAM: Thyroid [...] report is generated using voice recognition reporting (BroadLight). On occasion PowerSc[employer] erroneously drops words from [...] report is generated using voice recognition reporting (BroadLight). On occasion PowerScribe erroneously drops words from [...] report is generated using voice recognition reporting (Contoure). On occasion PowerScribe erroneously drops words from the report or replaces the spoken word with similar sounding words. Please call with any questions/concerns regarding this report.* Dictated and transcribed 06/16/2024/[place] This report has been electronically signed and approved by the interpreting radiologist. Electronically Signed Martin Christianson II, M.D. 2024-06-16 16:43:23 [facility] Radiology Study observation (narrative) [facility] Thyroid glandOrdered By: Martin Christianson on 06-16-2024 [facility] [employer] Work Phone: Office Visit (Cardiology)on 01-23-2023 [...] are negat (more content not included)... [facility] Tobacco Screening.on 023 Adult depression screening assessment No [facility] [employer] 250 DO Work Phone: Fall risk assessment a) No falls within the last year [facility] [employer] 250 DO Work Phone: Tobacco use status [facility] b) No [facility] [employer] 250 DO Work Phone: ACID FAST SMEAR AND CXon Acid Fast Culture Negative Normal [facility] Comment on above: Result Comment: No a monse fast bacilli isolated after 6 weeks. Performed By: #### A FB #### [facility] [address] [place] [address] [address] Balta Gorman Acid Fast Smear Negative Normal [facility] Comment on above: Performed By: #### A FB #### [facility] [address] [place] [address] [address] Balta Gorman [employer] Specimen Processing Tissue Grinding Normal [facility] Comment on above: Performed By: #### A FB #### [facility] [address] [place] [address] [address] Balta Gorman FUNGAL CULTUREon 07-11-2022 Fungus (Mycology) Culture Final report Normal [facility] Comment on above: Performed By: #### C XFUN #### [facility] [address] [place] [address] Dr. Balta Gorman Fungus Stain Final report Normal [facility] Comment on above: Performed By: #### C XFUN #### [facility] [address] [place] [address] Dr. Balta Gorman Result 1 Comment Normal [facility] Comment on above: Result Comment: FRANCISCA/ Calcofluor preparation: no fungus observed. Performed By: #### C XFUN #### [facility] [address] [place] [address] Dr. Balta Gorman Result Comment: No y east or mold isolated after 4 weeks. WOUND CULTUREon 06-15-2022 Bacteria identified Aer cx Nom (Unsp spec) Final report Normal [facility] Comment on above: Performed By: #### A FB #### [facility] [address] [place] [address] Dr. Balta Gorman Result 1 Comment Normal [facility] Comment on above: Result Comment: No g rowth in 36 - 48 hours. Performed By: #### A FB #### [facility] [address] [place] [address] Dr. Balta Gorman GRAM STAINon 06-12-2022 DIPHTHEROIDS Normal [facility] Comment on above: Performed By: #### C VDTBH #### [facility] [address] [place] [address] Dr. Balta Gorman EPITHELIALS Normal [facility] Comment on above: Performed By: #### C VDTBH #### [facility] [address] [place] [address] Dr. Balta Gorman FUNGAL ELEMENTS Normal [facility] Comment on above: Performed By: #### C VDTBH #### [facility] [address] [place] [address] Dr. Balta Gorman GRAM NEG BACILLI Normal [facility] Comment on above: Performed By: #### C VDTBH #### [facility] [address] [place] [address] [address] Balta Gorman GRAM NEG DIPPLOCOCCI Normal [facility] Comment on above: Performed By: #### C VDTBH #### [facility] [address] [place] [address] [address] Balta Gorman GRAM POS BACILLI Normal [facility] Comment on above: Performed By: #### C VDTBH #### [facility] [address] [place] [address] [address] Balta Gorman GRAM POSITIVE COCCI Normal [facility] Comment on above: Performed By: #### C VDTBH #### [facility] [address] [place] [address] [address] Balta Gorman GRAM STAIN SOURCE Rt 4th Toe Bone Normal [facility] Comment on above: Performed By: #### C VDTBH #### [facility] [address] [place] [address] Dr. Balta Gorman GS_DIPTH Normal [facility] Comment on above: Performed By: #### C VDTBH #### [facility] [address] [place] [address] [address] Balta Gorman WBC NONE SEEN Normal [facility] Comment on above: Performed By: #### C VDTBH #### [facility] [address] [place] [address] [address] Balta Gorman POINT OF CARE GLUCOSEon Glucose [Mass/Vol] 168 mg/dL Critically high 74-106 [facility] Comment on above: Performed By: #### P OCGLUC ####[facility] [id number] [place] [address]Dr. Balta Gorman Glucose [Mass/Vol] 161 mg/dL Critically high 74-106 [facility] Comment on above: Performed By: #### P OCGLUC #### [facility] [address] [place] [address] Dr. Balta Gorman Covid-19 PCR (CVDTB)on SARS-CoV-2 (COVID-19) RNA DERICK+probe Ql (Unsp spec) Not detected Normal NOT DETECTED [facility] Comment on above: Result Comment: This test is not yet approved or cleared by the [place] FDA. When there are no FDA-approved or cleared tests available, and other criteria are met, FDA can make tests available under an emergency access mechanism called an Emergency Use Authorization (EUA). The EUA for this test is supported by the [place] of Health and Human Service's (HHS's) declaration [...] with SARS-CoV-2. Performed By: #### C VDTBH ####[facility] [address] [place] [address]Dr. Balta Gorman PROF CHEM 8 (BAS METB)on Anion gap [Moles/Vol] 13.3 mmol/L Normal [facility] Comment on above: Performed By: #### C VDTBH #### [facility] [address] [place] [address] Dr. Balta Gorman Calcium [Mass/Vol] 8.7 mg/dL Normal 8.5-10.1 [facility] Comment on above: Performed By: #### C VDTBH #### [facility] [address] [address] [address] Balta Gorman Chloride [Moles/Vol] 106 mmol/L Normal 98-107 [facility] Comment on above: Performed By: #### C VDTBH #### [facility] [address] [address] [address] Balta Gorman CO2 [Moles/Vol] 23.9 mmol/L Normal 21.0-32.0 [facility] Comment on above: Performed By: #### C VDTBH #### [facility] [address] [address] [address] Balta Gorman Creatinine [Mass/Vol] 1.24 mg/dL Normal 0.70-1.30 [facility] Comment on above: Performed By: #### C VDTBH #### [facility] [address] [address] [address] Balta Gorman EGFR-AF SRI LANKAN >60 Normal >=60 [facility] Comment on above: Performed By: #### C VDTBH #### [facility] [address] [address] [address] Balta Gorman EGFR-NON AF SRI LANKAN 58 mL/min/1.73m2 Critically low >=60 [facility] Comment on above: Performed By: #### C VDTBH #### [facility] [address] [place] [address] Dr. Balta Gorman Glucose [Mass/Vol] 158 mg/dL Critically high 74-106 [facility] Comment on above: Performed By: #### C VDTBH #### [facility] [address] [place] [address] Dr. Balta Gorman Potassium [Moles/Vol] 4.2 mmol/L Normal 3.5-5.1 [facility] Comment on above: Performed By: #### C VDTBH #### [facility] [address] [place] [address] Dr. Balta Gorman Sodium [Moles/Vol] 139 mmol/L Normal 136-145 [facility] Comment on above: Performed By: #### C VDTBH #### [facility] [address] [place] [address] Dr. Balta Gorman Urea nitrogen [Mass/Vol] 19.0 mg/dL Critically high 7.0-18.0 [facility] Comment on above: Performed By: #### C VDTBH #### [facility] [address] [place] [address] Dr. Balta Gorman Urea nitrogen/Creatinine [Mass ratio] 15.3 mg/mg Normal [facility] Comment on above: Performed By: #### C VDTBH #### [facility] [address] [address] [address] Balta Gorman ACID FAST SMEAR AND CXon Acid Fast Culture Negative Normal [facility] Comment on above: Result Comment: No a monse fast bacilli isolated after 6 weeks. Performed By: #### A FB ####[facility] [address] [place], [place] [address]YoDr. Balta Gorman Acid Fast Smear Negative Normal [facility] Comment on above: Performed By: #### A FB ####[facility] [address] [place] [id number]. Balta Gorman AFB Specimen Processing Tissue Grinding Normal [facility] Comment on above: Performed By: #### A FB ####[facility] [address] [address]Dr. Balta Gorman FUNGAL CULTUREon 05-05-2022 Fungus (Mycology) Culture Final report Normal [facility] Comment on above: Performed By: #### A FB #### [facility] [address] [address] [address] Balta Gorman Fungus Stain Final report Normal [facility] Comment on above: Performed By: #### A FB #### [facility] [address] [place] [address] Dr. Balta Gorman Result 1 Comment Normal [facility] Comment on above: Result Comment: FRANCISCA/ Calcofluor preparation: no fungus observed. Performed By: #### A FB #### [facility] [address] [place] [address] Dr. Balta Gorman Result Comment: No y [...] signing my name below, I, Franchesca Adan LPN.,Scribe, attest that this documentation [...] that was done back in 1992 at [facility] in [place]. 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 This was redilated and stented. He had a recent episode at cardiac rehab in [place] and because of this was seen in [...] Recorded: 01May2022 09:28AM Heart Rate80, L Radial Kgyrvktn08, LUE, Sitting Lruonxeyy31, LUE, Sitting Height6 ft 1 in Pjuqya928 lb BMI Qjronyyycb16.42 kg/m2 BSA Calculated2.25 Tobacco Useb) No Falls Screening (Age 18+)a) No falls within the last year Signatures Electronically signed by : Helga Flores DO; May 01 2022 11:18AM EST (Author) Normal [facility] Tobacco Screening.on 022 Fall risk assessment a) No falls within the last year [facility] Adalid 250 DO Work Phone: Tobacco use status CP b) No -[facility] Rashad-Tano 250 DO Work Phone: XR FOOT LT [...] JOSE MARTIN WHITAKER Date: 2022-04-14 10:08 Normal [facility] TISSUE CULTUREon 04-07-2022 Anaerobic Culture, Extended Incubation Final report Normal [facility] Comment on above: Performed By: #### A FB #### [facility] [address] [place] [address] Dr. Balta Gorman Result 1 Comment Normal [facility] Comment on above: Result Comment: No g rowth in 56 - 72 hours. Performed By: #### A FB #### [facility] [address] [address] [address] Balta Gorman Result Comment: No g rowth after 14 days. Tissue Culture Final report Normal [facility] Comment on above: Performed By: #### A FB #### [facility] [address] [address] [address] Balta Gorman WOUND CULTUREon 03-26-2022 Antimicrobial Susceptibility Comment Normal [facility] Comment on above: Result Comment: S = Susceptible; I = Intermediate; R = Resistant P = Positive; N = Negative MICS are expressed in micrograms per mL Antibiotic RSLT#1 RSLT#2 RSLT#3 RSLT#4 Ciprofloxacin R Clindamycin S Erythromycin S Gentamicin S Levofloxacin R Linezolid S Oxacillin R Penicillin R Rifampin S Tetracycline S Trimethoprim/Sulfa R Vancomycin S Performed By: #### A FB #### [facility] [address] [place] [address] Dr. Balta Gorman Bacteria identified Aer cx Nom (Unsp spec) Final report Abnormal [facility] Comment on above: Performed By: #### A FB #### [facility] [address] [place] [address] Dr. Balta Gorman Result 1 Comment Abnormal [facility] Comment on above: Result Comment: Meth icillin - resistant Staphylococcus aureus Based on resistance to oxacillin this isolate would be resistant to all currently available beta-lactam antimicrobial agents, with the exception of the newer cephalosporins with anti-MRSA activity, such as Ceftaroline Heavy growth Performed By: #### A FB #### [facility] [address] [place] [address] Dr. Balta Gorman CBC AUTO DIFFon 03-24-2022 BASO # 0.0 103/ul Normal 0.0-0.1 [facility] Comment on above: Performed By: #### C BC ####[facility] [address] [place], [place] [address]Dr. Balta Gorman Basophils/100 WBC (Bld) 0.5 % Normal 0.2-2.0 [facility] Comment on above: Performed By: #### C BC ####[facility] [address] [place] [address]Dr. Balta Gorman EO # 0.1 103/ul Normal 0.0-0.7 [facility] Comment on above: Performed By: #### C BC ####[facility] [address] [place] [address]DrPaola Gorman Eosinophils/100 WBC (Bld) 1.1 % Normal 0.9-7.0 [facility] Comment on above: Performed By: #### C BC ####[facility] [address] [place] [address]Dr. Balta Gorman Erythrocyte distribution width (RBC) [Ratio] 16.9 % Critically high 11.0-15.0 [facility] Comment on above: Performed By: #### C BC ####[facility] [address] [place] [address]Dr. Balta Gorman Hematocrit (Bld) [Volume fraction] 34.5 % Critically low 42.0-54.0 [facility] Comment on above: Performed By: #### C BC ####[facility] [address] [place] [address]Dr. Balta Gorman Hemoglobin (Bld) [Mass/Vol] 10.2 g/dL Critically low 14.0-18.0 [facility] Comment on above: Performed By: #### C BC ####[facility] [address] [place], [place] [address]Dr. Balta Gorman IG # 0.03 10e3/ul Normal 0.00-0.03 [facility] Comment on above: Performed By: #### C BC ####[facility] [address] [place], [place] [address]Dr. Balta Gorman IG % 0.4 % Normal 0.0-0.5 [facility] Comment on above: Performed By: #### C BC ####[facility] [address] [place], [place] [address]Dr. Balta Gorman LYMPH # 1.6 103/ul Normal 1.2-3.8 [facility] Comment on above: Performed By: #### C BC ####[facility] [address] [place], [place] [address]Dr. Balta Gorman Lymphocytes/100 WBC (Bld) 18.4 % Critically low 20.5-60.0 [facility] Comment on above: Performed By: #### C BC ####[facility] [address] [place], [place] [address]Dr. Balta Gorman MANUAL DIFF REQ NO Normal [facility] Comment on above: Performed By: #### C BC ####[facility] [address] [place] [id number]. Balta Gorman MCH (RBC) [Entitic mass] 22.7 pg Critically low 25.9-34.0 [facility] Comment on above: Performed By: #### C BC ####[facility] [address] [place] [id number]. Balta Gorman MCHC (RBC) [Mass/Vol] 29.6 g/dL Critically low 29.9-35.2 [facility] Comment on above: Performed By: #### C BC ####[facility] [address] [place] [id number]. Balta Gorman MCV (RBC) [Entitic vol] 76.7 fL Critically low 80.0-94.0 [facility] Comment on above: Performed By: #### C BC ####[facility] [address] [place], [place] [address]Dr. Aurabenja Sherif MONO # 0.9 103/ul Critically high 0.3-0.8 [facility] Comment on above: Performed By: #### C BC ####[facility] [address] [place], [place] [address]Dr. Aurabenja Gorman Monocytes/100 WBC (Bld) 11.1 % Normal 1.7-12.0 [facility] Comment on above: Performed By: #### C BC ####[facility] [address] [place], [place] [address]Dr. Balta Gorman NEUT # 5.8 103/ul Normal 1.4-6.5 [facility] Comment on above: Performed By: #### C BC ####[facility] [address] [place], [place] [address]Dr. Aurabenja Gorman Neutrophils/100 WBC (Bld) 68.5 % Normal 43.0-75.0 [facility] Comment on above: Performed By: #### C BC ####[facility] [address] [place], [place] [address]Dr. Aurabenja Gorman Platelet mean volume (Bld) [Entitic vol] 10.2 fL Normal 9.5-13.5 [facility] Comment on above: Performed By: #### C BC ####[facility] [address] [place], [place] [address]Fu. Balta Gorman PLT 285 103/ul Normal 150-450 [facility] Comment on above: Performed By: #### C BC ####[facility] [address] [place], [place] [address]If. Balta Gorman RBC 4.50 106/ul Critically low 4.70-6.10 [facility] Comment on above: Performed By: #### C BC ####[facility] [address] [place] [id number]. Balta Gorman WBC 8.5 103/ul Normal 4.0-11.0 [facility] Comment on above: Performed By: #### C BC ####[facility] [address] [place] [id number]. Balta Gorman POINT OF CARE GLUCOSEon 03-06 Glucose [Mass/Vol] 209 mg/dL Critically high 74-106 [facility] Comment on above: Performed By: #### P OCGLUC #### [facility] [address] [place], [place] [address] Dr. Balta Gorman PROF CHEM 8 (BAS METB)on Anion gap [Moles/Vol] 13.7 mmol/L Normal [facility] Comment on above: Performed By: #### B MP ####[facility] [address] [place] [id number]. aBlta Gorman Calcium [Mass/Vol] 8.1 mg/dL Critically low 8.5-10.1 [facility] Comment on above: Performed By: #### B MP ####[facility] [address] [place] [id number] Gorman Chloride [Moles/Vol] 105 mmol/L Normal 98-107 [facility] Comment on above: Performed By: #### B MP ####[facility] [address] [place] [id number] Gorman CO2 [Moles/Vol] 23.0 mmol/L Normal 21.0-32.0 [facility] Comment on above: Performed By: #### B MP ####[facility] [address] [place] [address]Dr. Balta Gorman Creatinine [Mass/Vol] 1.15 mg/dL Normal 0.70-1.30 [facility] Comment on above: Performed By: #### B MP ####[facility] [address] [place] [address]Dr. Balta Gorman EGFR-AF SRI LANKAN >60 Normal >=60 [facility] Comment on above: Performed By: #### B MP ####[facility] [address]bl[address] [place] [address]Dr. Balta Gorman EGFR-NON AF SRI LANKAN >60 Normal >=60 [facility] Comment on above: Performed By: #### B MP ####[facility] [address] [place], [place] [address]Dr. Balta Sherif Glucose [Mass/Vol] 214 mg/dL Critically high 74-106 [facility] Comment on above: Performed By: #### B MP ####[facility] [address] [place], [place] [address]Dr. Balta Gorman Potassium [Moles/Vol] 3.7 mmol/L Normal 3.5-5.1 [facility] Comment on above: Performed By: #### B MP ####[facility] [address] [place], [place] [address]Dr. Aurabenja Sherif Sodium [Moles/Vol] 138 mmol/L Normal 136-145 [facility] Comment on above: Performed By: #### B MP ####[facility] [address] [place] [address]Dr. Aurabenja Sherif Urea nitrogen [Mass/Vol] 21.0 mg/dL Critically high 7.0-18.0 [facility] Comment on above: Performed By: #### B MP ####[facility] [address] [place] [address]Dr. Balta Gorman Urea nitrogen/Creatinine [Mass ratio] 18.3 mg/mg Normal [facility] Comment on above: Performed By: #### B MP ####[facility] [address] [place] [address]Dr. Balta Gorman CBC AUTO DIFFon 03-23-2022 BASO # 0.1 103/ul Normal 0.0-0.1 [facility] Comment on above: Performed By: #### C VDTBH #### [facility] [address] [address] [address] Balta Gorman Basophils/100 WBC (Bld) 1.0 % Normal 0.2-2.0 [facility] Comment on above: Performed By: #### C VDTBH #### [facility] [address] [place] [address] Dr. Balta Gorman EO # 0.3 103/ul Normal 0.0-0.7 [facility] Comment on above: Performed By: #### C VDTBH #### [facility] [address] [place] [address] Dr. Balta Gorman Eosinophils/100 WBC (Bld) 4.5 % Normal 0.9-7.0 [facility] Comment on above: Performed By: #### C VDTBH #### [facility] [address] [place] [address] Dr. Balta Gorman Erythrocyte distribution width (RBC) [Ratio] 17.0 % Critically high 11.0-15.0 [facility] Comment on above: Performed By: #### C VDTBH #### [facility] [address] [place] [address] Dr. Balta Gorman Hematocrit (Bld) [Volume fraction] 35.7 % Critically low 42.0-54.0 [facility] Comment on above: Performed By: #### C VDTBH #### [facility] [address] [place] [address] Dr. Balta Gorman Hemoglobin (Bld) [Mass/Vol] 10.6 g/dL Critically low 14.0-18.0 [facility] Comment on above: Performed By: #### C VDTBH #### [facility] [address] [place] [address] Dr. Balta Gorman IG # 0.03 10e3/ul Normal 0.00-0.03 [facility] Comment on above: Performed By: #### C VDTBH #### [facility] [address] [place] [address] Dr. Balta Gorman IG % 0.4 % Normal 0.0-0.5 [facility] Comment on above: Performed By: #### C VDTBH #### [facility] [address] [place] [address] Dr. Balta Gorman LYMPH # 1.8 103/ul Normal 1.2-3.8 [facility] Comment on above: Performed By: #### C VDTBH #### [facility] [address] [place] [address] Dr. Balta Gorman Lymphocytes/100 WBC (Bld) 25.6 % Normal 20.5-60.0 [facility] Comment on above: Performed By: #### C VDTBH #### [facility] [address] [place] [address] Dr. Balta Gorman MANUAL DIFF REQ NO Normal [facility] Comment on above: Performed By: #### C VDTBH #### [facility] [address] [place] [address] Dr. Balta Gorman MCH (RBC) [Entitic mass] 22.8 pg Critically low 25.9-34.0 [facility] Comment on above: Performed By: #### C VDTBH #### [facility] [address] [place] [address] Dr. Balta Gorman MCHC (RBC) [Mass/Vol] 29.7 g/dL Critically low 29.9-35.2 [facility] Comment on above: Performed By: #### C VDTBH #### [facility] [address] [place] [address] Dr. Balta Gorman MCV (RBC) [Entitic vol] 76.9 fL Critically low 80.0-94.0 [facility] Comment on above: Performed By: #### C VDTBH #### [facility] [address] [place] [address] Dr. Balta Gorman MONO # 1.0 103/ul Critically high 0.3-0.8 [facility] Comment on above: Performed By: #### C VDTBH #### [facility] [address] [place] [address] Dr. Balta Gorman Monocytes/100 WBC (Bld) 13.8 % Critically high 1.7-12.0 [facility] Comment on above: Performed By: #### C VDTBH #### [facility] [address] [place] [address] Dr. Balta Gorman NEUT # 3.9 103/ul Normal 1.4-6.5 [facility] Comment on above: Performed By: #### C VDTBH #### [facility] [address] [place] [address] Dr. Balta Gorman Neutrophils/100 WBC (Bld) 54.7 % Normal 43.0-75.0 [facility] Comment on above: Performed By: #### C VDTBH #### [facility] [address] [place] [address] Dr. Balta Gorman Platelet mean volume (Bld) [Entitic vol] 10.5 fL Normal 9.5-13.5 [facility] Comment on above: Performed By: #### C VDTBH #### [facility] [address] [place] [address] Dr. Balta Gorman PLT 271 103/ul Normal 150-450 [facility] Comment on above: Performed By: #### C VDTBH #### [facility] [address] [place] [address] Dr. Balta Gorman RBC 4.64 106/ul Critically low 4.70-6.10 [facility] Comment on above: Performed By: #### C VDTBH #### [facility] [address] [place] [address] Dr. Balta Gorman WBC 7.2 103/ul Normal 4.0-11.0 [facility] Comment on above: Performed By: #### C VDTBH #### [facility] [address] [place] [address] Dr. Balta Gorman GLYCOHEMOGLOBIN A1Con 2021 ADA RECOMMENDATION SEE BELOW Normal [facility] Comment on above: Result Comment: ADA RECOMMENDED LIMIT 4.0 - 6.0 ADA THERAPEUTIC TARGET < 7.0 ACTION SUGGESTED > 7.0 Performed By: #### A 1C #### [facility] [address] [address] [address] Balta Gorman Glucose [Mass/Vol] 177 mg/dL Normal [facility] Comment on above: Performed By: #### A 1C #### [facility] [address] [address] [address] Balta Gorman HbA1c (Bld) [Mass fraction] 7.8 % Critically high 4.5-6.2 [facility] Comment on above: Performed By: #### A 1C #### [facility] [address] [place] [address] Dr. Balta Gorman GRAM STAINon 03-23-2022 COMMENTS NO ORGANISMS OBSERVED Normal [facility] Comment on above: Performed By: #### A FB #### [facility] [address] [place] [address] Dr. Balta Gorman DIPHTHEROIDS Normal [facility] Comment on above: Performed By: #### A FB #### [facility] [address] [address] [address] Balta Gorman EPITHELIALS Normal [facility] Comment on above: Performed By: #### A FB #### [facility] [address] [address] [address] Balta Gorman FUNGAL ELEMENTS Normal [facility] Comment on above: Performed By: #### A FB #### [facility] [address] [place] [address] Dr. Balta Gorman GRAM NEG BACILLI Normal [facility] Comment on above: Performed By: #### A FB #### [facility] [address] [place] [address] Dr. Balta CAVAZOS NEG DIPPLOCOCCI Normal [facility] Comment on above: Performed By: #### A FB #### [facility] [address] [place] [address] Dr. Balta Gorman GRAM POS BACILLI Normal [facility] Comment on above: Performed By: #### A FB #### [facility] [address] [address] [address] Balta Gorman GRAM POSITIVE COCCI Normal [facility] Comment on above: Performed By: #### A FB #### [facility] [address] [place] [address] Dr. Balta Gorman GRAM STAIN SOURCE r. 2nd toe bone- pos t irrigation Normal [facility] Comment on above: Performed By: #### A FB #### [facility] [address] [place] [address] Dr. Balta Gorman GS_DIPTH [facility] Comment on above: Performed By: #### A FB #### [facility] [address] [place] [address] Dr. Balta Gorman WBC RARE [facility] Comment on above: Performed By: #### A FB #### [facility] [address] [place] [address] Dr. Balta Gorman POINT OF CARE GLUCOSEon 03-05 Glucose [Mass/Vol] 209 mg/dL Critically high 74-106 [facility] Comment on above: Performed By: #### A FB #### [facility] [address] [place] [address] Dr. Balta Gorman Glucose [Mass/Vol] 203 mg/dL Critically high -106 [facility] Comment on above: Performed By: #### P OCGLUC #### [facility] [address] [place] [address] Dr. Balta Gorman Glucose [Mass/Vol] 119 mg/dL Critically high 74-106 [facility] Comment on above: Performed By: #### A FB #### [facility] [address] [place] [address] Dr. Balta Gorman Glucose [Mass/Vol] 115 mg/dL Critically high -106 [facility] Comment on above: Performed By: #### A FB #### [facility] [address] [place] [address] Dr. Balta Gorman PROF CHEM 8 (BAS METB)on Anion gap [Moles/Vol] 12.2 mmol/L Normal [facility] Comment on above: Performed By: #### A FB #### [facility] [address] [place] [address] Dr. Balta Gorman Calcium [Mass/Vol] 8.1 mg/dL Critically low 8.5-10.1 Th e [facility] Comment on above: Performed By: #### A FB #### [facility] [address] [address] [address] Balta Gorman Chloride [Moles/Vol] 104 mmol/L Normal 98-107 [facility] Comment on above: Performed By: #### A FB #### [facility] [address] [place] [address] Dr. Balta Gorman CO2 [Moles/Vol] 24.5 mmol/L Normal 21.0-32.0 [facility] Comment on above: Performed By: #### A FB #### [facility] [address] [place] [address] Dr. Balta Gorman Creatinine [Mass/Vol] 1.06 mg/dL Normal 0.70-1.30 [facility] Comment on above: Performed By: #### A FB #### [facility] [address] [place] [address] Dr. Balta Gorman EGFR-AF SRI LANKAN >60 Normal >=60 [facility] Comment on above: Performed By: #### A FB #### [facility] [address] [place] [address] Dr. Balta Gorman EGFR-NON AF SRI LANKAN >60 Normal >=60 [facility] Comment on above: Performed By: #### A FB #### [facility] [address] [place] [address] Dr. Balta Gorman Glucose [Mass/Vol] 110 mg/dL Critically high 74-106 [facility] Comment on above: Performed By: #### A FB #### [facility] [address] [place] [address] Dr. Balta Gomran Potassium [Moles/Vol] 3.7 mmol/L Normal 3.5-5.1 [facility] Comment on above: Performed By: #### A FB #### [facility] [address] [address] [address] Balta Gorman Sodium [Moles/Vol] 137 mmol/L Normal 136-145 [facility] Comment on above: Performed By: #### A FB #### [facility] [address] [address] [address] Balta Gorman Urea nitrogen [Mass/Vol] 19.0 mg/dL Critically high 7.0-18.0 [facility] Comment on above: Performed By: #### A FB #### [facility] [address] [address] [address] Balta Gorman Urea nitrogen/Creatinine [Mass ratio] 17.9 mg/mg Normal [facility] Comment on above: Performed By: #### A FB #### [facility] [address] [address] [address] Balta Gorman PROTIMEon 03-23-2022 INR Coag (PPP) [Relative time] 1.06 {INR} Normal [facility] Comment on above: Performed By: #### P TT, PT ####[facility] [address] [address]Dr. Balta Gorman INR GUIDELINES SEE BELOW Normal [facility] Comment on above: Result Comment: PORSCHE RED INR: 2.0 - 3.0 CONDITIONS NOT LISTED BELOW 2.5 - 3.5 FOR PROSTHETIC HEART VALVE REPLACEMENT 2.5 - 3.5 RECURRENT THROMBOSIS Performed By: #### P TT, PT ####[facility] [address] [address]Dr. Balta Gorman PT Coag (PPP) [Time] 11.4 s Normal 9.0-11.6 [facility] Comment on above: Performed By: #### P TT, PT ####[facility] [address] [address]Dr. Balta Gorman PTTon 03-23-2022 aPTT Coag (Bld) [Time] 33.8 s Normal 22.3-36.2 [facility] Comment on above: Performed By: #### P TT, PT ####[facility] [address] [address]Dr. Balta Gorman CBC AUTO DIFFon 03-22-2022 BASO # 0.1 103/ul Normal 0.0-0.1 [facility] Comment on above: Performed By: #### C BC ####[facility] [address] [place], [place] [address]Dr. Balta Sherif Basophils/100 WBC (Bld) 0.9 % Normal 0.2-2.0 [facility] Comment on above: Performed By: #### C BC ####[facility] [address] [place], [place] [address]Dr. Balta Gorman EO # 0.3 103/ul Normal 0.0-0.7 [facility] Comment on above: Performed By: #### C BC ####[facility] [address] [place], [place] [address]Dr. Aurabenja Gorman Eosinophils/100 WBC (Bld) 3.2 % Normal 0.9-7.0 [facility] Comment on above: Performed By: #### C BC ####[facility] [address] [place], [place] [address]Dr. Balta Gorman Erythrocyte distribution width (RBC) [Ratio] 17.5 % Critically high 11.0-15.0 [facility] Comment on above: Performed By: #### C BC ####[facility] [address] [place], [place] [address]Dr. Balta Gorman Hematocrit (Bld) [Volume fraction] 39.5 % Critically low 42.0-54.0 [facility] Comment on above: Performed By: #### C BC ####[facility] [address] [place], [place] [address]Dr. Balta Gorman Hemoglobin (Bld) [Mass/Vol] 11.6 g/dL Critically low 14.0-18.0 [facility] Comment on above: Performed By: #### C BC ####[facility] [address] [place], [place] [address]Dr. Balta Gorman IG # 0.03 10e3/ul Normal 0.00-0.03 [facility] Comment on above: Performed By: #### C BC ####[facility] [address] [address]Dr. Balta Gorman IG % 0.3 % Normal 0.0-0.5 [facility] Comment on above: Performed By: #### C BC ####[facility] [address] [address]Dr. Balta Sherif LYMPH # 1.6 103/ul Normal 1.2-3.8 [facility] Comment on above: Performed By: #### C BC ####[facility] [address] [address]Dr. Aurabenja Gorman Lymphocytes/100 WBC (Bld) 17.7 % Critically low 20.5-60.0 [facility] Comment on above: Performed By: #### C BC ####[facility] [address] [address]Dr. Aurabenja Gorman MANUAL DIFF REQ NO Normal [facility] Comment on above: Performed By: #### C BC ####[facility] [address] [address]Dr. Balta Sherif MCH (RBC) [Entitic mass] 22.5 pg Critically low 25.9-34.0 [facility] Comment on above: Performed By: #### C BC ####[facility] [address] [address]Dr. Balta Sherif MCHC (RBC) [Mass/Vol] 29.4 g/dL Critically low 29.9-35.2 [facility] Comment on above: Performed By: #### C BC ####[facility] [address] [address]Dr. Aurabenja Gorman MCV (RBC) [Entitic vol] 76.6 fL Critically low 80.0-94.0 [facility] Comment on above: Performed By: #### C BC ####[facility] [address] [place], [place] [address]Dr. Balta Gorman MONO # 1.0 103/ul Critically high 0.3-0.8 [facility] Comment on above: Performed By: #### C BC ####[facility] [address] [address]Dr. Balta Gorman Monocytes/100 WBC (Bld) 11.0 % Normal 1.7-12.0 [facility] Comment on above: Performed By: #### C BC ####[facility] [address] [id number]. Balta Gorman NEUT # 5.9 103/ul Normal 1.4-6.5 [facility] Comment on above: Performed By: #### C BC ####[facility] [address] [address]Dr. Balta Sherif Neutrophils/100 WBC (Bld) 66.9 % Normal 43.0-75.0 [facility] Comment on above: Performed By: #### C BC ####[facility] [address]vpyxesisx[address] [place], [place] [address]Dr. Balta Gorman Platelet mean volume (Bld) [Entitic vol] 10.4 fL Normal 9.5-13.5 [facility] Comment on above: Performed By: #### C BC ####[facility] [address] [place], [place] [address]Dr. Balta Sherif PLT 319 103/ul Normal 150-450 [facility] Comment on above: Performed By: #### C BC ####[facility] [address] [id number]. Aurabenja Sherif RBC 5.16 106/ul Normal 4.70-6.10 [facility] Comment on above: Result Comment: SLIG HT HYPOCHROMIA Performed By: #### C BC ####[facility] [address] [id number]. Aurabenja Sherif WBC 8.8 103/ul Normal 4.0-11.0 [facility] Comment on above: Performed By: #### C BC ####[facility] [address] [id number]. Balta Gorman CULTURE BLOODon 03-22-2022 Microscopic examination of blood, culture Culture Observations: No growth at 5 days. Isolate 1 BC_BA_NA Normal [facility] Comment on above: Performed By: #### C VDTBH #### [facility] [address] [place] [address] Dr. Balta Gorman Microscopic examination of blood, culture Culture Observations: No growth at 5 days. Isolate 1 BC_BA_NA Normal [facility] Comment on above: Performed By: #### C VDTBH #### [facility] [address] [address] [address] Balta Gorman Covid-19 PCR ([facility])on 03-05 SARS-CoV-2 (COVID-19) RNA DERICK+probe Ql (Unsp spec) Not detected Normal NOT DETECTED [facility] Comment on above: Result Comment: When diagnostic testing is negative, the possibility of a false negative should be considered in the context of a patient's recent exposures and the presence of clinical signs and symptoms consistent with SARS-CoV-2. This test is not yet approved or cleared by the [place] Food and Drug Administration (FDA). This test was developed by [facility], [place], [place]. The performance characteristics of this test were validated by [facility]. The results are not intended to be used as the sole means for clinical diagnosis or patient management decisions. [facility] is authorized under Clinical Laboratory Improvement [...] for this test is supported by the [place] of Health and Human Service's declaration that [...] used). Performed By: #### C VDTBH #### [facility] [address] [address] [address] Balta Gorman POINT OF CARE GLUCOSEon 03-05 Glucose [Mass/Vol] 121 mg/dL Critically high 74-106 [facility] Comment on above: Performed By: #### P OCGLUC #### [facility] [address] [address] [address] Balta Gorman Glucose [Mass/Vol] 109 mg/dL Critically high 74-106 [facility] Comment on above: Performed By: #### P OCGLUC #### [facility] [address] [address] [address] Balta Gorman PROF 14(COMP METB)on 022 Albumin [Mass/Vol] 3.5 g/dL Normal 3.4-5.0 [facility] Comment on above: Performed By: #### C MP ####[facility] [address] [address]Dr. Balta Goramn Albumin/Globulin [Mass ratio] 0.8 {ratio} Normal [facility] Comment on above: Performed By: #### C MP ####[facility] [address] [address]Dr. Balta Gorman ALP [Catalytic activity/Vol] 78 U/L Normal 46-116 [facility] Comment on above: Performed By: #### C MP ####[facility] [address] [address]Dr. Balta Gorman ALT [Catalytic activity/Vol] 24 U/L Normal 16-63 [facility] Comment on above: Performed By: #### C MP ####[facility] [address] [address]Dr. Balta Gorman Anion gap [Moles/Vol] 11.9 mmol/L Normal [facility] Comment on above: Performed By: #### C MP ####[facility] [address] [address]Dr. Balta Gorman AST [Catalytic activity/Vol] 16 U/L Normal 15-37 [facility] Comment on above: Performed By: #### C MP ####[facility] [address] [address]Dr. Balta Gorman Bilirubin [Mass/Vol] 0.6 mg/dL Normal 0.2-1.0 [facility] Comment on above: Performed By: #### C MP ####[facility] [address] [address]Dr. Balta Gorman Calcium [Mass/Vol] 8.7 mg/dL Normal 8.5-10.1 [facility] Comment on above: Performed By: #### C MP ####[facility] [address] [id number]. Balta Gorman Chloride [Moles/Vol] 104 mmol/L Normal 98-107 [facility] Comment on above: Performed By: #### C MP ####[facility] [address] [address]Dr. Balta Gorman CO2 [Moles/Vol] 28.1 mmol/L Normal 21.0-32.0 [facility] Comment on above: Performed By: #### C MP ####[facility] Octvasfzt[address] [place], [place] [address]Dr. Balta Gorman Creatinine [Mass/Vol] 1.24 mg/dL Normal 0.70-1.30 [facility] Comment on above: Performed By: #### C MP ####[facility] [address] [address]Dr. Balta Gorman EGFR-AF SRI LANKAN >60 Normal >=60 [facility] Comment on above: Performed By: #### C MP ####[facility] [address] [address]Dr. Balta Gorman EGFR-NON AF SRI LANKAN 58 mL/min/1.73m2 Critically low >=60 [facility] Comment on above: Performed By: #### C MP ####[facility] [address] [place], [place] [address]Dr. Balta Gorman Globulin (S) [Mass/Vol] 4.4 g/dL Normal [facility] Comment on above: Performed By: #### C MP ####[facility] [address] [place], [place] [address]Dr. Balta Gorman Glucose [Mass/Vol] 205 mg/dL Critically high 74-106 [facility] Comment on above: Performed By: #### C MP ####[facility] [address] [address]Dr. Balta Gorman Potassium [Moles/Vol] 4.0 mmol/L Normal 3.5-5.1 [facility] Comment on above: Performed By: #### C MP ####[facility] Cqns[address]scqi[address] [place], [place] [address]Dr. Balta Gorman Protein [Mass/Vol] 7.9 g/dL Normal 6.4-8.2 [facility] Comment on above: Performed By: #### C MP ####[facility] [address] [place], [place] [address]Dr. Balta Gorman Sodium [Moles/Vol] 140 mmol/L Normal 136-145 [facility] Comment on above: Performed By: #### C MP ####[facility] Enxvx[address] [place], [place] [address]Dr. Balta Gorman Urea nitrogen [Mass/Vol] 22.0 mg/dL Critically high 7.0-18.0 [facility] Comment on above: Performed By: #### C MP ####[facility] [address]zf[address] [place], [place] [address]Dr. Balta Gorman Urea nitrogen/Creatinine [Mass ratio] 17.7 mg/mg Normal [facility] Comment on above: Performed By: #### C MP ####[facility] Yacshyr[address]ib[address] [place], [place] [address]Dr. Balta Gorman UA (CLEAN/CATCH) WATCH SUPERVISOR/MICRO I F IND.on 03-22-2022 Bilirubin Ql (U) Negative Normal NEGATIVE [facility] Comment on above: Performed By: #### U ACSIND ####[facility] [address]ikt[address] [address]Dr. Balta Gorman Clarity (U) CLEAR Normal CLEAR [facility] Comment on above: Performed By: #### U ACSIND ####[facility] N[address]atsxq[address] [place], [place] [address]Dr. Balta Gorman Color (U) LT. YELLOW Normal YELLOW [facility] Comment on above: Performed By: #### U ACSIND ####[facility] Tw[address] [place], [place] [address]Dr. Balta Gorman Glucose Ql (U) >1000 Abnormal NEGATIVE [facility] Comment on above: Performed By: #### U ACSIND ####[facility] [address] [place], [place] [address]Dr. Balta Gorman Hemoglobin Ql (U) Negative Normal NEGATIVE [facility] Comment on above: Performed By: #### U ACSIND ####[facility] Iqqvwfryhv[address] [place], [place] [address]Dr. Balta Gorman Ketones Ql (U) Negative Normal NEGATIVE [facility] Comment on above: Performed By: #### U ACSIND ####[facility] [address]ecsa[address] [place], [place] [address]Dr. Balta Gorman LEUKOCYTES Negative Normal NEGATIVE [facility] Comment on above: Performed By: #### U ACSIND ####[facility] [address] [place], [place] [address]Dr. Balta Gorman Nitrite Ql (U) Negative Normal NEGATIVE [facility] Comment on above: Performed By: #### U ACSIND ####[facility] [address]evoloue[address] [place], [place] [address]Dr. Balta Gorman pH (U) 6.0 [pH] Normal 5-9 [facility] Comment on above: Performed By: #### U ACSIND ####[facility] Pr[address] [place], [place] [address]Dr. Balta Gorman SPEC GRAVITY 1.010 Normal 1.005-<=1.02 5 [facility] Comment on above: Performed By: #### U ACSIND ####[facility] [address] [place], [place] [address]Dr. Balta Gorman UA PROTEIN Negative Normal NEGATIVE/ TRACE [facility] Comment on above: Performed By: #### U ACSIND ####[facility] O[address]caq[address] [place], [place] [address]Dr. Balta Gorman UR MICRO IND NOT INDICATED Normal [facility] Comment on above: Performed By: #### U ACSIND ####[facility] [address] [place], [place] [address]Wd. Balta Gorman Urobilinogen Qn (U) 0.2 {Jose Luis'U}/dL Normal 0.2 - 1. 0 [facility] Comment on above: Performed By: #### U ACSIND ####[facility] [address] [id number]. Balta Gorman XR FOOT RT MIN 3 [...] by: HELGA GOLDBERG Date: 2022-03-22 15:21 Normal [facility] Blood Urea Nitrogenon 2021 Urea nitrogen [Mass/Vol] 21 mg/dL Normal - [facility] Comment on above: Performed By: #### P P, LYTES, CBC, BUN, CREAT, LIPID #### [facility] [address] COVID-19 Antigenon 2 COVID-19 Antigen Healthcare [...] developed and its performance characteristic determined by [employer] and validated at [facility]. This test has not been FDA cleared [...] SARS Antigen by JOSE L PERFORMED BY: [place] [address] PATHOLOGIST ACOUSTIC SENSOR OPERATOR ERLIN GUPTA M.D. Normal [facility] Comment on above: Performed By: #### S OFIANEG, COVID-19 HERMINIO #### [facility] [address] [place] [address] Coagulation Profileon 2021 aPTT Coag (Bld) [Time] 30.4 s Normal 25.1-36.5 [facility] Comment on above: Result Comment: PERF ORMED BY: [place] [address] PATHOLOGIST ACOUSTIC SENSOR OPERATOR ERLIN GUPTA M.D. Performed By: #### P P, LYTES, CBC, BUN, CREAT, LIPID #### [facility] [address] [place] [address] INR Coag (PPP) [Relative time] 1.1 {INR} Normal [facility] Comment on above: Result Comment: INR Therapeutic [...] P, LYTES, CBC, BUN, CREAT, LIPID #### [address] PT Coag (PPP) [Time] 12.7 s Normal 9.0-12.9 [facility] Comment on above: Performed By: #### P P, LYTES, CBC, BUN, CREAT, LIPID #### [address] Complete Blood Count Auto Di ffon 03-10-2022 Basophils (Bld) [#/Vol] 0.1 10*3/uL Normal 0.0-0.2 [facility] Comment on above: Result Comment: PERF ORMED BY: [place] [address] PATHOLOGIST ACOUSTIC SENSOR OPERATOR ERLIN GUPTA M.D. Performed By: #### P P, LYTES, CBC, BUN, CREAT, LIPID #### [address] Basophils/100 WBC (Bld) 1.6 % Normal . [facility] Comment on above: Performed By: #### P P, LYTES, CBC, BUN, CREAT, LIPID #### [address] Eosinophils (Bld) [#/Vol] 0.2 10*3/uL Normal 0.0-0.45 [facility] Comment on above: Performed By: #### P P, LYTES, CBC, BUN, CREAT, LIPID #### [address] Eosinophils/100 WBC (Bld) 3.4 % Normal . [facility] Comment on above: Performed By: #### P P, LYTES, CBC, BUN, CREAT, LIPID #### [address] Erythrocyte distribution width (RBC) [Ratio] 17.0 % High 12.0-14.8 [facility] Comment on above: Performed By: #### P P, LYTES, CBC, BUN, CREAT, LIPID #### [address] Hematocrit (Bld) [Volume fraction] 38.9 % Normal 38.8-50.0 [facility] Comment on above: Performed By: #### P P, LYTES, CBC, BUN, CREAT, LIPID #### [address] Hemoglobin (Bld) [Mass/Vol] 12.4 g/dL Low 13.0-17.0 [facility] Comment on above: Performed By: #### P P, LYTES, CBC, BUN, CREAT, LIPID #### [address] Lymphocytes (Bld) [#/Vol] 1.6 10*3/uL Normal 1.00-4.8 [facility] Comment on above: Performed By: #### P P, LYTES, CBC, BUN, CREAT, LIPID #### [address] Lymphocytes/100 WBC (Bld) 25.1 % Normal . [facility] Comment on above: Performed By: #### P P, LYTES, CBC, BUN, CREAT, LIPID #### [address] MCH (RBC) [Entitic mass] 22.6 pg Low 27.5-35.2 [facility] Comment on above: Performed By: #### P P, LYTES, CBC, BUN, CREAT, LIPID #### [address] MCV (RBC) [Entitic vol] 70.8 fL Low 83.5-101 [facility] Comment on above: Performed By: #### P P, LYTES, CBC, BUN, CREAT, LIPID #### [address] Mean Corpuscular HGB Conc 31.9 g/dL Low 32.5-35.6 [facility] Comment on above: Performed By: #### P P, LYTES, CBC, BUN, CREAT, LIPID #### [address] Monocytes (Bld) [#/Vol] 0.7 10*3/uL Normal 0.0-0.8 [facility] Comment on above: Performed By: #### P P, LYTES, CBC, BUN, CREAT, LIPID #### [address] Monocytes/100 WBC (Bld) 10.2 % Normal . [facility] Comment on above: Performed By: #### P P, LYTES, CBC, BUN, CREAT, LIPID #### [address] Neutrophils (Bld) [#/Vol] 3.8 10*3/uL Normal 1.8-7.7 [facility] Comment on above: Performed By: #### P P, LYTES, CBC, BUN, CREAT, LIPID #### [address] Neutrophils/100 WBC (Bld) 59.7 % Normal . [facility] Comment on above: Performed By: #### P P, LYTES, CBC, BUN, CREAT, LIPID #### [address] Nucleated RBC/100 WBC (Bld) [Ratio] 0.1 % Normal 0-0.5 [facility] Comment on above: Performed By: #### P P, LYTES, CBC, BUN, CREAT, LIPID #### [address] Platelet mean volume (Bld) [Entitic vol] 8.6 fL Normal 6.6-10.1 [facility] Comment on above: Performed By: #### P P, LYTES, CBC, BUN, CREAT, LIPID #### [facility] [address] Platelets (Bld) [#/Vol] 270 10*3/uL Normal 150-450 [facility] Comment on above: Performed By: #### P P, LYTES, CBC, BUN, CREAT, LIPID #### [address] RBC (Bld) [#/Vol] 5.49 10*6/uL Normal 3.90-5.60 [facility] Comment on above: Performed By: #### P P, LYTES, CBC, BUN, CREAT, LIPID #### [address] WBC (Bld) [#/Vol] 6.4 10*3/uL Normal 4.5-11.0 [facility] Comment on above: Performed By: #### P P, LYTES, CBC, BUN, CREAT, LIPID #### [address] Creatinineon 03-10-2022 Creatinine [Mass/Vol] 1.01 mg/dL Normal 0.64-1.27 [facility] Comment on above: Performed By: #### P P, LYTES, CBC, BUN, CREAT, LIPID #### [address] Estimated GFR ( Raegan > 60 Normal [facility] Comment on above: Result Comment: GFR estimated reference range: According to KDOQI guidelines, <60 ml/min/1.73m2 is sufficient to diagnose a patient with chronic kidney disease. Performed By: #### P P, LYTES, CBC, BUN, CREAT, LIPID #### [address] Estimated GFR (Non- Am > 60 Normal [facility] Comment on above: Performed By: #### P P, LYTES, CBC, BUN, CREAT, LIPID #### [facility] [address] ECG 12 lead ECGon 03-10-2022 ECG 12 lead ECG [facility] Main [place] [address] [place] [address] Electrocardiograph Report Signed Patient: Janice Ford Jr MR#: [id number] : 1955 Acct:[id number] Age/Sex: 67 / M ADM Date: 03/10/22 Loc: PS Room: Type: [facility] Attending Dr: Margaux Castillo MD Ordering Provider: [...] are now present Confirmed by INDIA PEREIRA [facility], ERIKA ([id number]) on 03/10/2022 10:04:07 AM Referred By: LATESHA CASTILLO Electronically Signed By:ERIKA OSBORNE MD [facility] Transcribed By: MUS Signed By Erika Osborne MD, FACC 03/10/22 1004 Normal [facility] Electrolyteson 03-10-2022 Chloride [Moles/Vol] 105 mmol/L Normal 95-114 [facility] Comment on above: Performed By: #### P P, LYTES, CBC, BUN, CREAT, LIPID #### [address] CO2 [Moles/Vol] 22.9 mmol/L Normal 22.0-30.0 [facility] Comment on above: Performed By: #### P P, LYTES, CBC, BUN, CREAT, LIPID #### [facility] [address] Potassium [Moles/Vol] 4.3 mmol/L Normal 3.5-5.1 [facility] Comment on above: Performed By: #### P P, LYTES, CBC, BUN, CREAT, LIPID #### [facility] [address] Sodium [Moles/Vol] 137 mmol/L Normal 136-146 [facility] Comment on above: Performed By: #### P P, LYTES, CBC, BUN, CREAT, LIPID #### [facility] [address] Laboratory - Chemistry and C hemistry - challengeon 03-10-2022 Cholesterol [Mass/Vol] 167\S\167 Normal 140-200 [place] [address] DO Work Phone: Comment on above: Chol less than 200 m g/dl low risk Chol 201-239 mg/dl borderline risk Chol 240 mg/dl and greater high risk Cholesterol in LDL [Mass/Vol] 80\S\80 Normal 0-100 [place] [address] DO Work Phone: Comment on above: LDL ATP III CLASSIFI CATION LDL less than 100 mg/dL Optimal LDL 100-129 mg/dL Near or above optimal LDL 130-159 mg/dL Borderline high LDL 160-189 mg/dL High LDL greater than 189 mg/dL Very high Laboratory - Microbiology an d Antimicrobial susceptibilityon 03-10-2022 SARS-CoV-2 (COVID-19) RNA DERICK+probe Ql (Unsp spec) [place] [address] DO Work Phone: Lipid Panelon 03-10-2022 Cholesterol [Mass/Vol] 167 mg/dL Normal 140-200 [facility] Comment on above: Result Comment: Chol less than 200 mg/dl low risk Chol 201-239 mg/dl borderline risk Chol 240 mg/dl and greater high risk Performed By: #### P P, LYTES, CBC, BUN, CREAT, LIPID #### [facility] [address] Cholesterol in HDL [Mass/Vol] 21 mg/dL Low 29-71 [facility] Comment on above: Result Comment: HDL CHOL ATP-III CLASSIFICATION Cardiovascular Risk HDL > or equal to 60 mg/dL LOW HDL < 40 mg/dL HIGH Performed By: #### P P, LYTES, CBC, BUN, CREAT, LIPID #### [facility] [address] Cholesterol.total/Ch olesterol in HDL [Mass ratio] 8.0 {ratio} Normal <5.0 [facility] Comment on above: Result Comment: PERF ORMED BY: [place] [address] PATHOLOGIST ACOUSTIC SENSOR OPERATOR ERLIN GUPTA M.D. Performed By: #### P P, LYTES, CBC, BUN, CREAT, LIPID #### [address] LDL Cholesterol,Calculat ed 80 mg/dL Normal 0-100 [facility] Comment on above: Result Comment: LDL ATP III CLASSIFICATION LDL less than 100 mg/dL Optimal LDL 100-129 mg/dL Near or above optimal LDL 130-159 mg/dL Borderline high LDL 160-189 mg/dL High LDL greater than 189 mg/dL Very high Performed By: #### P P, LYTES, CBC, BUN, CREAT, LIPID #### [address] Triglyceride w/Reflex 328 mg/dL High 35-149 [facility] Comment on above: Result Comment: TRIG ATP III CLASSIFICATION TRIG less than 150 mg/dL Normal TRIG 150-199 mg/dL Borderline high TRIG 200-500 mg/dL High TRIG greater than 500 mg/dL Very high Standard traceable to the Center for Disease Conrtrol and Prevention (CDC) test method. Performed By: #### P P, LYTES, CBC, BUN, CREAT, LIPID #### [facility] [address] VLDL CHOLESTEROL 65 mg/dL Normal [facility] Comment on above: Performed By: #### P P, LYTES, CBC, BUN, CREAT, LIPID #### [facility] 1111 [place] [address] [facility] No Panel Informationon 03-10 0.1\S\0.1 Normal 0-0.5 -[facility] 600 DO Work Phone: Comment on above: PERFORMED BY:[facility]1111 [address] [place], [place] [id number] MEDICAL DIRECTORERLIN GUPTA M.D. 0.2\S\0.2 Normal 0.0-0.45 -[facility] 600 DO Work Phone: 0.7\S\0.7 Normal 0.0-0.8 -[facility] 600 DO Work Phone: 1.6\S\1.6 Normal . [facility] 600 DO Work Phone: 3.8\S\3.8 Normal 1.8-7.7 -[facility] 600 DO Work Phone: 3.4\S\3.4 Normal . [facility] 600 DO Work Phone: 10.2\S\10.2 Normal . [facility] 600 DO Work Phone: 25.1\S\25.1 Normal . [facility] 600 DO Work Phone: 59.7\S\59.7 Normal . [facility] 600 DO Work Phone: 8.6\S\8.6 Normal 6.6-10.1 -[facility] 600 DO Work Phone: 270\S\270 Normal 150-450 [facility] 600 DO Work Phone: 17.0\S\17.0 above high threshold 12.0-14.8 -[facility] 600 DO Work Phone: 31.9\S\31.9 below low threshold 32.5-35.6 -[facility] 600 DO Work Phone: 22.6\S\22.6 below low threshold 27.5-35.2 [facility] 600 DO Work Phone: 70.8\S\70.8 below low threshold 83.5-101 MP-[facility] 600 DO Work Phone: 38.9\S\38.9 Normal 38.8-50.0 [facility] 600 DO Work Phone: 12.4\S\12.4 below low threshold 13.0-17.0 [facility] 600 DO Work Phone: 5.49\S\5.49 Normal 3.90-5.60 [facility] 600 DO Work Phone: 6.4\S\6.4 Normal 4.1-10.5 -[facility] 600 DO Work Phone: 30.4\S\30.4 Normal 25.1-36.5 [facility] 600 DO Work Phone: Comment on above: PERFORMED BY:[place] [address] [place] [place], [place] [phone] MEDICAL DIRECTORERLIN GUPTA M.D. 1.1\S\1.1 Normal [facility] 600 DO Work Phone: Comment on [...] valves: 3 - 4.5 12.7\S\12.7 Normal 9.0-12.9 [facility] 600 DO Work Phone: Negative Normal Negative -[facility] 600 DO Work Phone: Comment on above: This is a duplicate Herminio SARS Antigen (JOSE L) result to be used for statistical tracking purpose only.PERFORMED BY:[place] [address] [address] [place], [place] [id number] MEDICAL DIRECTORERLIN GUPTA M.D. 22.9\S\22.9 Normal 22.0-30.0 [facility] 600 DO Work Phone: 105\S\105 Normal 95-114 [facility] 600 DO Work Phone: 4.3\S\4.3 Normal 3.5-5.1 [facility] 600 DO Work Phone: 137\S\137 Normal 136-146 [facility] 600 DO Work Phone: 21\S\21 below low threshold 29-71 -[facility] 600 DO Work Phone: Comment on above: HDL CHOL ATP-III CLA SSIFICATION Cardiovascular Risk HDL > or equal to 60 mg/dL LOW HDL < 40 mg/dL HIGH > 60 Normal [facility] 600 DO Work Phone: Comment on above: GFR estimated refere nce range: According to KDOQI guidelines, <60 ml/min/1.73m2 is sufficient to diagnose a patient with chronic kidney disease. 1.01\S\1.01 Normal 0.64-1.27 [facility] 600 DO Work Phone: 8.0\S\8.0 Normal <5.0 [facility] 600 DO Work Phone: Comment on above: PERFORMED BY:[facility] [place], [place] [phone] MEDICAL DIRECTORERLIN GUPTA M.D. 66\S\65 Normal -[facility] 600 DO Work Phone: 328\S\328 above high threshold 35-149 -[facility] 600 DO Work Phone: Comment on above: TRIG ATP III CLASSIF ICATION TRIG less than 150 mg/dL Normal TRIG 150-199 mg/dL Borderline high TRIG 200-500 mg/dL High TRIG greater than 500 mg/dL Very high Standard traceable to the Center for Disease Conrtrol and Prevention (CDC) test method. Herminio Ag Negativeon 03-10-20 Herminio Ag Negative Negative Normal Negative [facility] Comment on above: Result Comment: This is a duplicate Herminio SARS Antigen (JOSE L) result to be used for statistical tracking purpose only. PERFORMED BY: [place] [address] PATHOLOGIST ACOUSTIC SENSOR OPERATOR ERLIN GUPTA M.D. Performed By: #### S DEEJAY CHAUID-19 HERMINIO #### [address] CARDIAC STRESS/REST INJE CTIONon 03-01-2022 [facility] CARDIAC STRESS/REST INJECTION Patient Name: JANICE FORD STUDY: MYOCARDIAL PERFUSION STRESS TEST WITH LEXISCAN Performing facility: [facility], [address] [place] [address], [address] Provider: Helga Flores DO, [facility] PCP: Dr. Vineet Agrawal Supervising provider: Ratna Elias DO, [facility] INDICATION: Angina CAD; S/P PTCA HISTORY: Gender: M; Age: 67 y/o ; Height: 185.42 cm; Weight: 106.410415 kg. High Cholesterol; CAD; Diabetes; HTN; Chest Pain; Denies smoking. Cardiac catheterization on 2021. PTCA on 2021. CABG on 1992. COMPARISON: Previous nuclear testing completed at [facility]. ACCESSION NUMBER(S): [id number]; [id number]; [id number] ORDERING CLINICIAN: HELGA FLORES TECHNIQUE: ONE DAY [...] Electronically signed by: MARGAUX CASTILLO MD Normal [facility] No Panel Informationon 03-01 Normal -[facility] 250 DO Work Phone: Complete Blood Count with Au to Diffon 01-23-2022 Basophils (Bld) [#/Vol] 0.08 10*3/uL Normal 0.00-0.20 [facility] Weatherization Coordinator Comment on above: Performed By: #### C BCAD #### [facility] [address] [place], [place] [id number] Basophils/100 WBC (Bld) 1.1 % Normal [facility] Specialist Comment on above: Performed By: #### C BCAD #### [facility] [address] [place], [place] [id number] Eosinophils (Bld) [#/Vol] 0.29 10*3/uL Normal 0.02-0.50 [facility] Comment on above: Performed By: #### C BCAD #### [facility] [address] [place], [place] [id number] Eosinophils/100 WBC (Bld) 4.1 % Normal [facility] Specialist Comment on above: Performed By: #### C BCAD #### [facility] [address] [place], [place] [id number] Erythrocyte distribution width (RBC) [Ratio] 17.6 % High 11.0-15.0 [facility] Comment on above: Performed By: #### C BCAD #### [facility] [address] [place], [place] [id number] Hematocrit (Bld) [Volume fraction] 41.0 % Normal 38.5-50.0 [facility] Comment on above: Performed By: #### C BCAD #### [facility] [address] [place], [place] [id number] Hemoglobin (Bld) [Mass/Vol] 11.9 g/dL Low 13.0-17.1 [facility] Comment on above: Performed By: #### C BCAD #### [facility] [address] [place], [place] [id number] Lymphocytes (Bld) [#/Vol] 1.8 10*3/uL Normal 0.9-3.9 [facility] Comment on above: Performed By: #### C BCAD #### [facility] [address] [place], [place] [id number] Lymphocytes/100 WBC (Bld) 25.1 % Normal [facility] Specialist Comment on above: Performed By: #### C BCAD #### [facility] [address] [place], [place] [id number] MCH (RBC) [Entitic mass] 21.9 pg Low 27.0-33.0 [facility] Special[facility] Comment on above: Performed By: #### C BCAD #### [facility] [address] [place], [place] [id number] MCHC (RBC) [Mass/Vol] 29.0 g/dL Low 32.0-36.0 [facility] Comment on above: Performed By: #### C BCAD #### [facility] [address] [place], [place] [id number] MCV (RBC) [Entitic vol] 76 fL Low 80-100 [facility] Special[facility] Comment on above: Performed By: #### C BCAD #### [facility] [address] [place], [place] [id number] Monocytes (Bld) [#/Vol] 0.7 10*3/uL Normal 0.2-0.9 [facility] Comment on above: Performed By: #### C BCAD #### [facility] [address] [place], [place] [id number] Monocytes/100 WBC (Bld) 9.3 % Normal [facility] Special[facility] Comment on above: Performed By: #### C BCAD #### [facility] [address] [place], [place] [id number] Neutrophils (Bld) [#/Vol] 4.3 10*3/uL Normal 1.5-7.8 [facility] Special[facility] Comment on above: Performed By: #### C BCAD #### [facility] [address] [place], [place] [id number] Neutrophils/100 WBC (Bld) 60.0 % Normal [facility] Specialist Comment on above: Performed By: #### C BCAD #### [facility] [address] [place], [place] [id number] Platelet mean volume (Bld) [Entitic vol] 10.50 fL Normal 7.50-12.50 [facility] Specialist Comment on above: Performed By: #### C BCAD #### [facility] [address] [place], [place] [id number] Platelets (Bld) [#/Vol] 306 10*3/uL Normal 140-400 [facility] Specialist Comment on above: Performed By: #### C BCAD #### [facility] [address] [place], [place] [id number] RBC (Bld) [#/Vol] 5.43 10*6/uL Normal 4.20-5.80 [facility] Comment on above: Performed By: #### C BCAD #### [facility] [address] [place], [place] [id number] RDW-SD 46.0 fL Normal 37.0-50.0 [facility] Special[facility] Comment on above: Performed By: #### C BCAD #### [facility] [address] [place], [place] [id number] WBC (Bld) [#/Vol] 7.1 10*3/uL Normal 3.8-11.0 [facility] Comment on above: Performed By: #### C BCAD #### [facility] [address] [place], [place] [id number] Hemoglobin A1Con 01-23-[address]22 EAG [address] [facility] Comment on above: Performed By: #### A 1C #### [facility] [address] [place], [place] [id number] HbA1c (Bld) [Mass fraction] 8.0 % High 4.0-6.[address] [facility] Comment on above: Performed By: #### A 1C #### [facility] [address] [place], [place] [id number] Lipid Panelon 01-23-2022 Cholesterol [Mass/Vol] 177 mg/dL Normal 125-200 [facility] Specialist Comment on above: Result Comment: Low risk < 200mg/dL Borderline risk 201-239 mg/dl High risk > or equal to 240 Performed By: #### L IPD #### [facility] [address] [place], [place] [id number] Cholesterol in HDL [Mass/Vol] 25 mg/dL Low >40 [facility] Special[facility] Comment on above: Result Comment: High Cardiovascular Risk HDL <40 mg/dL Low Cardiovascular Risk HDL > or equal to 60 mg/dl Performed By: #### L IPD #### [facility] [address] [place], [place] [id number] Cholesterol in LDL [Mass/Vol] 83 mg/dL Normal [facility] Comment on above: Result Comment: LDL ATP III CLASSIFICATION LDL less than 100 mg/dl Optimal LDL 100-129 mg/dl Near or above optimal LDL 130-159 Borderline high LDL 160-189 High LDL greater than 189 mg/dl Very High Performed By: #### L IPD #### [facility] [address] [place], [place] [id number] Cholesterol in VLDL [Mass/Vol] 69 mg/dL Normal [facility] Weatherization Coordinator Comment on above: Performed By: #### L IPD #### [facility] [address] [place], [place] [id number] Cholesterol.total/Ch olesterol in HDL [Mass ratio] 7 {ratio} Normal [facility] Specialist Comment on above: Performed By: #### L IPD #### [facility] [address] [place], [place] [id number] Triglyceride [Mass/Vol] 343 mg/dL High 30-150 [facility] Weatherization Coordinator Comment on above: Result Comment: TRIG ATPIII CLASSIFICATIONS TRIG less than 150 mg/dl Normal TRIG 150-199 mg/dl Borderline High TRIG 200-500 mg/dl High TRIG greather than 500 mg/dl Very High Performed By: #### L IPD #### [facility] [address] [place], [place] [id number] PSA SCREEN (MEDICARE)on 01-04 TPSA 0.405 ng/mL Normal <4.000 [facility] Specialist Comment on above: Result Comment: PSA Test Method: ECLIA/Joseph e 601 Performed By: #### P SA MC #### [facility] [address] [place], [place] [id number] Tobacco Screening.on 022 Fall risk assessment a) No falls within the last year [facility] 250 DO Work Phone: Tobacco use status CP b) No [facility] 250 DO Work Phone: Laboratory - Chemistry and C hemistry - challengeon 11-07-2021 Cholesterol [Mass/Vol] 183\S\183 Normal 140-200 [facility] 250 DO Work Phone: Comment on above: Chol less than 200 m g/dl low risk Chol 201-239 mg/dl borderline risk Chol 240 mg/dl and greater high risk Cholesterol in LDL [Mass/Vol] 97\S\97 Normal 0-100 [facility] 250 DO Work Phone: Comment on above: LDL ATP III CLASSIFI CATION LDL less than 100 mg/dL Optimal LDL 100-129 mg/dL Near or above optimal LDL 130-159 mg/dL Borderline high LDL 160-189 mg/dL High LDL greater than 189 mg/dL Very high Laboratory - Microbiology an d Antimicrobial susceptibilityon 11-07-2021 SARS-CoV-2 (COVID-19) RNA DERICK+probe Ql (Unsp spec) [facility] 250 DO Work Phone: No Panel Informationon 11-07 56.2\S\56.2 Normal . [facility] 250 DO Work Phone: 8.5\S\8.5 Normal 6.6-10.1 [facility] Work Phone: 279\S\279 Normal 150-450 [facility] 250 DO Work Phone: 16.0\S\16.0 above high threshold 12.0-14.8 [facility] 250 DO Work Phone: 31.3\S\31.3 below low threshold 32.5-35.6 [facility] 250 DO Work Phone: 22.7\S\22.7 below low threshold 27.5-35.2 [facility] 250 DO Work Phone: 3.5\S\3.5 Normal 1.8-7.7 [facility] 250 DO Work Phone: 0.1\S\0.1 Normal 0.0-0.2 [facility] 250 DO Work Phone: Comment on above: PERFORMED BY:[place] [address] [address] [place], [place] [id number] MEDICAL DIRECTORERLIN GUPTA M.D. 1.4\S\1.4 Normal . [facility] 250 DO Work Phone: 4.0\S\4.0 Normal . [facility] 250 DO Work Phone: 10.2\S\10.2 Normal . [facility] 250 DO Work Phone: 28.2\S\28.2 Normal . [facility] 250 DO Work Phone: 0.2\S\0.2 Normal 0.0-0.45 [facility] 250 DO Work Phone: 0.6\S\0.6 Normal 0.0-0.8 [facility] 250 DO Work Phone: 1.7\S\1.7 Normal 1.00-4.8 [facility] 250 DO Work Phone: 72.3\S\72.3 below low threshold 83.5-101 [facility] 250 DO Work Phone: 39.8\S\39.8 Normal 38.8-50.0 [facility] 250 DO Work Phone: 12.5\S\12.5 below low threshold 13.0-17.0 [facility] 250 DO Work Phone: 5.50\S\5.50 Normal 3.90-5.60 [facility] 250 DO Work Phone: 6.2\S\6.2 Normal 4.1-10.5 [facility] 250 DO Work Phone: 34.4\S\34.4 Normal 25.1-36.5 [facility] 250 DO Work Phone: Comment on above: PERFORMED BY:[facility] [id number] MEDICAL DIRECTORERLIN GUPTA M.D. 1.1\S\1.1 Normal -[facility] 250 DO Work Phone: Comment on above: [...] valves: 3 - 4.5 12.2\S\12.2 Normal 9.0-12.9 -[facility] 250 DO Work Phone: Negative Normal Negative -[facility] 250 DO Work Phone: Comment on above: This is a duplicate Herminio SARS Antigen (JOSE L) result to be used for statistical tracking purpose only.PERFORMED BY:[facility] [place] [id number] MEDICAL DIRECTORERLIN GUPTA M.D. 24.2\S\24.2 Normal 22.0-30.0 [facility] 250 DO Work Phone: 101\S\101 Normal 95-114 [facility] 250 DO Work Phone: 4.5\S\4.5 Normal 3.5-5.1 -[facility] 250 DO Work Phone: 139\S\139 Normal 136-146 -[facility] 250 DO Work Phone: 23\S\23 Normal 9-23 -[facility] 250 DO Work Phone: > 60 Normal -[facility] 250 DO Work Phone: Comment on above: GFR estimated refere wye range: According to KDOQI guidelines, <60 ml/min/1.73m2 is sufficient to diagnose a patient with chronic kidney disease. 1.14\S\1.14 Normal 0.64-1.27 [facility] 250 DO Work Phone: 9.2\S\9.2 Normal <5.0 [place] [address] DO Work Phone: Comment on above: PERFORMED BY:[place] [address] [place], [place] [id number] MEDICAL DIRECTORERLIN GUPTA M.D. 65\S\65 Normal [place] [address] DO Work Phone: 329\S\329 above high threshold 35-149 [place] [address] DO Work Phone: Comment on above: TRIG ATP III CLASSIF ICATION TRIG less than 150 mg/dL Normal TRIG 150-199 mg/dL Borderline high TRIG 200-500 mg/dL High TRIG greater than 500 mg/dL Very high Standard traceable to the Center for Disease Conrtrol and Prevention (CDC) test method. 20\S\20 below low threshold 29-71 [place] [address] DO Work Phone: Comment on above: HDL CHOL ATP-III CLA SSIFICATION Cardiovascular Risk HDL > or equal to 60 mg/dL LOW HDL < 40 mg/dL HIGH [facility] CARDIAC STRESS/REST INJE CTIONon 10-12-2021 [facility] CARDIAC STRESS/REST INJECTION Patient Name: JANICE FORD STUDY: MYOCARDIAL PERFUSION STRESS TEST WITH LEXISCAN Performing facility: [facility], [address] [place] [id number] [facility] Provider: Helga Flores DO, FAC PCP: Dr. Vineet Agrawal Supervising provider: Erika Osborne MD, FACC INDICATION: CAD; HISTORY: Gender: M; Age: 66 y/o ; Height: 185.42 cm; Weight: 106.316613 kg. High Cholesterol; CAD; Diabetes; HTN; Chest Pain; Denies smoking. Cardiac catheterization on 2014. PTCA on 2014. COMPARISON: Previous nuclear testing completed [id number] at [facility]. ACCESSION NUMBER(S): [id number]; [id number]; [id number] ORDERING CLINICIAN: HELGA FLORES TECHNIQUE: ONE DAY [...] Electronically signed by: ERIKA OSBORNE MD Normal [facility] No Panel Informationon 10-12 Normal [facility] 600 DO Work Phone: Quick Strepon 10-10-2021 S. pyogenes Org specific cx Ql (Throat) Negative [facility] [place] Communication Other Quick Strep [facility] [place] Communication Other Tobacco Screening.on 021 Fall risk assessment a) No falls within the last year [facility] 250 DO Work Phone: Tobacco use status CPHS b) No [facility] 250 DO Work Phone: Vital Signs Date Time Vital Sign Value Performing Clinician Facility 02-23-2025 09:20-0400 Diastolic blood pressure 86 mm[Hg] [address] 02-23-2025 09:20-0400 Heart rate 76 /min [address] 02-23-2025 09:20-0400 Systolic blood pressure 136 mm[Hg] [address] 01-29-2025 08:49-0400 Body height 185.4 cm Latha HARRIS Work Phone: [facility] 01-29-2025 08:49-0400 Body mass index (BMI) [Ratio] 28.1 kg/m2 Latha HARRIS Work Phone: [facility] 01-29-2025 08:49-0400 Body temperature 97.3 [degF] Latha HARRIS Work Phone: [facility] 01-29-2025 08:49-0400 Body weight 96.62 kg Latha HARRIS Work Phone: [facility] 01-29-2025 08:49-0400 Diastolic blood pressure 72 mm[Hg] Latha HARRIS Work Phone: [facility] 01-29-2025 08:49-0400 Heart rate 76 /min Latha HARRIS Work Phone: [facility] 01-29-2025 08:49-0400 SaO2% (BldA) [Mass fraction] 96 % Latha HARRIS Work Phone: [facility] 01-29-2025 08:49-0400 Systolic blood pressure 130 mm[Hg] Latha HARRIS Work Phone: [facility] 01-28-2025 10:05-0400 Body height 185.4 cm Martin Elias DO Work Phone: [facility] 01-28-2025 10:05-0400 Body mass index (BMI) [Ratio] 28.68 kg/m2 Martin Elias DO Work Phone: [facility] 01-28-2025 10:05-0400 Body weight 98.61 kg Martin Elias DO Work Phone: [facility] 01-28-2025 10:05-0400 Diastolic blood pressure 66 mm[Hg] Martin Elias DO Work Phone: [facility] 01-28-2025 10:05-0400 Heart rate 82 /min Martin Elias DO Work Phone: [facility] 01-28-2025 10:05-0400 Systolic blood pressure 116 mm[Hg] Martin Elias DO Work Phone: [facility] 12-04-2024 11:36-0500 Body height 185.4 cm Joyce Loyd MANAGER MONE[employer] Work Phone: [facility] 12-04-2024 11:36-0500 Body mass index (BMI) [Ratio] 28.23 kg/m2 Joyce Loyd MANAGER [employer]ONE[employer] Work Phone: [facility] 12-04-2024 11:36-0500 Body temperature 98.01 [degF] Joyce Loyd MANAGER [employer]ONE[employer] Work Phone: [facility] 12-04-2024 11:36-0500 Body weight 97.07 kg Joyce Loyd MANAGER [employer]ONE[employer] Work Phone: [facility] 12-04-2024 11:36-0500 Diastolic blood pressure 78 mm[Hg] Joyce Loyd MANAGER [employer]ONEY Work Phone: [facility] 12-04-2024 11:36-0500 Heart rate 62 /min Joyce Loyd MANAGER [employer] Work Phone: [facility] 12-04-2024 11:36-0500 SaO2% (BldA) [Mass fraction] 99 % Joyce Loyd MANAGER MONEY Work Phone: [facility] 12-04-2024 11:36-0500 Systolic blood pressure 120 mm[Hg] Joyce Loyd MANAGER MONEY Work Phone: [facility] 12-04-2024 11:15-0500 Body height 185.4 cm Nitish Agrawal DO Work Phone: [facility] 12-04-2024 11:15-0500 Body mass index (BMI) [Ratio] 28.23 kg/m2 Nitish Agrawal DO Work Phone: [facility] 12-04-2024 11:15-0500 Body temperature 98.01 [degF] Nitish Agrawal DO Work Phone: [facility] 12-04-2024 11:15-0500 Body weight 97.07 kg Nitish Agrawal DO Work Phone: [facility] 12-04-2024 11:15-0500 Diastolic blood pressure 78 mm[Hg] Nitish Agrawal DO Work Phone: [facility] 12-04-2024 11:15-0500 Heart rate 62 /min Nitish Agrawal DO Work Phone: [facility] 12-04-2024 11:15-0500 SaO2% (BldA) [Mass fraction] 99 % Nitish Agrawal DO Work Phone: [facility] 12-04-2024 11:15-0500 Systolic blood pressure 120 mm[Hg] Nitish Agrawal DO Work Phone: [facility] 12-01-2024 09:09-0500 Body height 185.4 cm Lashaun Petznick DO Work Phone: [facility] 12-01-2024 09:09-0500 Body mass index (BMI) [Ratio] 28.5 kg/m2 Lashaun Petznick DO Work Phone: [facility] 12-01-2024 09:09-0500 Body temperature 98.29 [degF] Lashaun Petznick DO Work Phone: [facility] 12-01-2024 09:09-0500 Body weight 97.98 kg Lashaun Petznick DO Work Phone: [facility] 12-01-2024 09:09-0500 Diastolic blood pressure 82 mm[Hg] Lashaun Petznick DO Work Phone: [facility] 12-01-2024 09:09-0500 Heart rate 83 /min Lashaun Petznick DO Work Phone: [facility] 12-01-2024 09:09-0500 SaO2% (BldA) [Mass fraction] 96 % Lashaun Petznick DO Work Phone: [facility] 12-01-2024 09:09-0500 Systolic blood pressure 140 mm[Hg] Lashaun Petznick DO Work Phone: [facility] 09-01-2024 09:14-0400 Body height 185.4 cm Lashaun Petznick DO Work Phone: [facility] 09-01-2024 09:14-0400 Body mass index (BMI) [Ratio] 29.5 kg/m2 Lashaun Petznick DO Work Phone: [facility] 09-01-2024 09:14-0400 Body temperature 96.6 [degF] Lashaun Petznick DO Work Phone: [facility] 09-01-2024 09:14-0400 Body weight 101.42 kg Lashaun Petznick DO Work Phone: [facility] 09-01-2024 09:14-0400 Diastolic blood pressure 72 mm[Hg] Lashaun Petznick DO Work Phone: [facility] 09-01-2024 09:14-0400 Heart rate 69 /min Lashaun Petznick DO Work Phone: [facility] 09-01-2024 09:14-0400 SaO2% (BldA) [Mass fraction] 96 % Lashaun Petznick DO Work Phone: [facility] 09-01-2024 09:14-0400 Systolic blood pressure 124 mm[Hg] Lashaun Bradley DO Work Phone: [facility] 06-16-2024 15:30-0400 Body height 185.4 cm Nitish Agrawal DO Work Phone: [facility] 06-16-2024 15:30-0400 Body mass index (BMI) [Ratio] 29.42 kg/m2 Nitish Agrawal DO Work Phone: [facility] 06-16-2024 15:30-0400 Body temperature 98.29 [degF] Nitish Agrawal DO Work Phone: [facility] 06-16-2024 15:30-0400 Body weight 101.15 kg Nitish Agrawal DO Work Phone: [facility] 06-16-2024 15:30-0400 Diastolic blood pressure 80 mm[Hg] Nitish Agrawal DO Work Phone: [facility] 06-16-2024 15:30-0400 Heart rate 80 /min Nitish Agrawal DO Work Phone: [facility] 06-16-2024 15:30-0400 Systolic blood pressure 122 mm[Hg] Nitish Agrawal DO Work Phone: [facility] 01-29-2024 14:36-0400 Body height 185.4 cm Martin Elias DO Work Phone: [facility] 01-29-2024 14:36-0400 Body mass index (BMI) [Ratio] 29.69 kg/m2 Martin Elias DO Work Phone: [facility] 01-29-2024 14:36-0400 Body weight 102.06 kg Martin Elias DO Work Phone: [facility] 01-29-2024 14:36-0400 Diastolic blood pressure 70 mm[Hg] Martin Elias DO Work Phone: [facility] 01-29-2024 14:36-0400 Heart rate 86 /min Martin Elias DO Work Phone: [facility] 01-29-2024 14:36-0400 Systolic blood pressure 138 mm[Hg] Martin Elias DO Work Phone: [facility] 05-10-2023 12:10-0400 Body height 185.42 cm Barbara Ellis Other [employer] Other 05-10-2023 12:10-0400 Body mass index (BMI) [Ratio] 30.26 kg/m2 Barbara Ellis Other [employer] Other 05-10-2023 12:10-0400 Body temperature 97.8 [degF] Barbara Ellis Other [employer] Other 05-10-2023 12:10-0400 Body weight 104.06 kg Barbara Ellis Other [employer] Other 05-10-2023 12:10-0400 Respiratory rate 18 /min Barbara Ellis Other [employer] Other 05-10-2023 12:10-0400 SaO2% (BldA) [Mass fraction] 97 % Barbara Ellis Other [employer] Other 01-23-2023 11:01-0400 Body height 185.42 cm Nitish Agrawal Work Phone: [facility] DO Work Phone: 01-23-2023 11:01-0400 Body mass index (BMI) [Ratio] 30.08 kg/m2 Nitish Agrawal Work Phone: [facility] 250 DO Work Phone: 01-23-2023 11:01-0400 Body surface area Derived from formula 2.28 m2 Nitish Agrawal Work Phone: [facility] 250 DO Work Phone: 01-23-2023 11:01-0400 Body weight 103.42 kg Nitish Agrawal Work Phone: [facility] 250 DO Work Phone: 01-23-2023 11:01-0400 Diastolic blood pressure 60 mm[Hg] Nitish Agrawal Work Phone: [facility] 250 DO Work Phone: 01-23-2023 11:01-0400 Heart rate 60 /min Nitish Agrawal Work Phone: [facility] 250 DO Work Phone: 01-23-2023 11:01-0400 Systolic blood pressure 108 mm[Hg] Nitish Agrawal Work Phone: [facility] 250 DO Work Phone: 05-01-2022 09:28-0400 Body height 185.42 cm Nitish Agrawal Work Phone: [facility] 250 DO Work Phone: 05-01-2022 09:28-0400 Body mass index (BMI) [Ratio] 29.42 kg/m2 Nitish Agrawal Work Phone: [facility] 250 DO Work Phone: 05-01-2022 09:28-0400 Body surface area Derived from formula 2.25 m2 Nitish Agrawal Work Phone: [facility] 250 DO Work Phone: 05-01-2022 09:28-0400 Body weight 101.15 kg Nitish Agrawal Work Phone: [facility] 250 DO Work Phone: 05-01-2022 09:28-0400 Diastolic blood pressure 50 mm[Hg] Nitish Agrawal Work Phone: [facility] 250 DO Work Phone: 05-01-2022 09:28-0400 Heart rate 80 /min Nitish Agrawal Work Phone: [facility] 250 DO Work Phone: 05-01-2022 09:28-0400 Systolic blood pressure 80 mm[Hg] Nitish Agrawal Work Phone: [facility] 250 DO Work Phone: 03-01-2022 07:30-0400 40 1 Nitish Agrawal Work Phone: [facility] 600 DO Work Phone: Comment on above: [id number] 11-22-2021 10:31-0500 Body height 182.88 cm Nitish Agrawal Work Phone: [facility] 250 DO Work Phone: 11-22-2021 10:31-0500 Body mass index (BMI) [Ratio] 30.38 kg/m2 Nitish Agrawal Work Phone: [facility] 250 DO Work Phone: 11-22-2021 10:31-0500 Body surface area Derived from formula 2.24 m2 Nitish Agrawal Work Phone: [facility] 250 DO Work Phone: 11-22-2021 10:31-0500 Body weight 101.61 kg Nitish Agrawal Work Phone: [facility] 250 DO Work Phone: 11-22-2021 10:31-0500 Diastolic blood pressure 72 mm[Hg] Nitish Agrawal Work Phone: [facility] 250 DO Work Phone: 11-22-2021 10:31-0500 Heart rate 66 /min Nitish Agrawal Work Phone: [facility] 250 DO Work Phone: 11-22-2021 10:31-0500 Systolic blood pressure 124 mm[Hg] Nitish Agrawal Work Phone: [facility] 250 DO Work Phone: 10-10-2021 10:00-0500 Body height 185.42 cm Jaelyn Espinal Other [employer] Other 10-10-2021 10:00-0500 Body temperature 97.5 [degF] Jaelyn Espinal Other [employer] Other 10-10-2021 10:00-0500 SaO2% (BldA) [Mass fraction] 99 % Jaelyn Espinal Other [employer] Other 09-27-2021 09:48-0500 Body height 182.88 cm Nitish Agrawal Work Phone: [facility] 250 DO Work Phone: 09-27-2021 09:48-0500 Body mass index (BMI) [Ratio] 30.65 kg/m2 Nitish Agrawal Work Phone: [facility] 250 DO Work Phone: 09-27-2021 09:48-0500 Body surface area Derived from formula 2.24 m2 Nitish Agrawal Work Phone: [facility] 250 DO Work Phone: 09-27-2021 09:48-0500 Body weight 102.51 kg Nitish Agrawal Work Phone: [facility] 250 DO Work Phone: 09-27-2021 09:48-0500 Diastolic blood pressure 59 mm[Hg] Nitish Agrawal Work Phone: [facility] 250 DO Work Phone: 09-27-2021 09:48-0500 Heart rate 73 /min Nitish Gordoner Work Phone: [facility] 250 DO Work Phone: 09-27-2021 09:48-0500 Systolic blood pressure 129 mm[Hg] Nitish Gordoner Work Phone: [facility] 250 DO Work Phone: 09-27-2021 09:48-0500 46 1 Nitish Gordoner Work Phone: [facility] [address] [place] Work Phone: Comment on above: [id number] Encounters Encounter Date Encounter Type Care Provider Facility Start: 04-22-2025 End: 04-22-2025 Clinisync Result Encounter Generic External Data Provider [facility] External Department Unsolicited Start: 04-22-2025 End: 04-22-2025 Clinisync Result Encounter Generic External Data Provider [facility] External Department Unsolicited Start: 03-27-2025 End: 03-27-2025 ambulatory LASHAUN BRADLEY Not Available Start: 02-23-2025 End: 02-24-2025 Clinisync Result Encounter Generic External Data Provider [facility] External Department Unsolicited Start: 02-23-2025 End: 02-24-2025 Clinisync Result Encounter Generic External Data Provider [facility] External Department Unsolicited Start: 02-23-2025 End: 02-23-2025 Subsequent hospital visit by physician Sevtlana Garrett Fl Admin Room [facility] Comment on above: Arteriosclerotic car diovascular disease (ASCVD); History of coronary artery bypass graft; Status post angioplasty; Angina pectoris; Palpitations; Tachycardia Start: 02-23-2025 End: 02-23-2025 ambulatory [facility] Start: 01-30-2025 End: 01-30-2025 ambulatory [facility] Amb[facility] Start: 01-29-2025 End: 01-29-2025 Bamboo flowsheet Latha Caiceod PA Work Phone: [facility] Start: 01-29-2025 End: 01-29-2025 Bamboo flowsheet Latha Caicedo PA Work Phone: [facility] Start: 01-29-2025 End: 01-29-2025 Office outpatient visit 15 minutes Latha Caicedo PA Work Phone: [facility] 230 Comment on above: Anxiety (Primary Dx) Start: 01-29-2025 End: 01-29-2025 ambulatory LATHA CAICEDO Not Available Start: 01-28-2025 End: 01-28-2025 Clinisync Result Encounter Generic External Data Provider [facility] External Department Unsolicited Start: 01-28-2025 End: 01-28-2025 Clinisync Result Encounter Generic External Data Provider [facility] External Department Unsolicited Start: 01-28-2025 End: 01-28-2025 Office outpatient visit 40 minutes [facility] DO Work Phone: [facility] Comment on above: Arteriosclerotic car diovascular disease [...] ischemic cardiomyopathy Start: 01-28-2025 End: 01-28-2025 ambulatory [facility] Ambulatory Start: 12-04-2024 End: 12-04-2024 Bamboo flowsheet Nitish Agrawal DO Work Phone: [facility] Start: 12-04-2024 End: 12-04-2024 Bamboo flowsheet Nitish Agrawal DO Work Phone: [facility] Start: 12-04-2024 End: 12-04-2024 Assay of hemosiderin, quant Joyce Loyd NP Work Phone: [facility] Start: 12-04-2024 End: 12-04-2024 Patient encounter procedure Joyce Loyd NP Work Phone: [facility] 230 Comment on above: Routine general medi [...] 25 minutes Nitish Agrawal DO Work Phone: [facility] 230 Comment on above: Hypothyroidism (acqu ired) (CMS/HCC) (Primary Dx) Start: 12-04-2024 End: 12-04-2024 ambulatory JOYCE Amanda LOYD Not Available Start: 12-01-2024 End: 12-01-2024 Office outpatient visit 25 minutes Lashaun Bradley DO Work Phone: [facility] 512 Comment on above: Type 2 diabetes lisandro itus with other circulatory complications (CMS/HCC) (Primary Dx); Type 2 diabetes mellitus with stage 3a chronic kidney disease, without long-term current use of insulin (HCC) (CMS/HCC); Preventative health care; Screening for prostate cancer Start: 12-01-2024 End: 12-01-2024 Patient encounter status Lashaun Bradley DO Work Phone: [facility] Start: 12-01-2024 End: 12-01-2024 ambulatory LASHAUN BRADLEY Not Available Start: 09-01-2024 End: 09-01-2024 Office outpatient visit 25 minutes Lashaun Bradley DO Work Phone: [facility] 126 Comment on above: Type 2 diabetes lisandro itus with other circulatory complications (CMS/HCC) Start: 09-01-2024 End: 09-01-2024 ambulatory LASHAUN BRADLEY Not Available Start: 08-29-2024 End: 08-29-2024 Telephone encounter Lashaun Bradley DO Work Phone: [facility] 230 Start: 06-27-2024 End: 06-27-2024 Shaq Chowdhury [place] Work Phone: [facility] Start: 06-27-2024 End: 06-27-2024 Bamboo flowsheet Bari Chowdhury PA Work Phone: [facility] Start: 06-27-2024 End: 06-27-2024 Office outpatient new 45 minutes Bari Chowdhury PA Work Phone: [facility] Comment on above: Other seborrheic matthew matitis (Primary Dx); Acrochordon; Other specified erythematous conditions; Inflamed seborrheic keratosis Start: 06-27-2024 End: 06-27-2024 ambulatory BARI CHOWDHURY Not Available Start: 06-16-2024 End: 06-16-2024 ambulatory NITISH AGRAWAL Not Available Start: 06-16-2024 End: 06-16-2024 Office outpatient visit 25 minutes Nitish Agrawal DO Work Phone: [facility] 230 Comment on above: Hypothyroidism (acqu [...] 06-02-2024 ambulatory LASHAUN BRADLEY Not Available Start: 01-29-2024 End: 01-29-2024 Office outpatient visit 25 minutes Martin Elias DO Work Phone: [facility] Comment on above: Arteriosclerotic car diovascular disease (ASCVD); History of coronary artery bypass graft; Multiple vessel coronary artery disease; Status post angioplasty; Hypertension, unspecified type; Mixed hyperlipidemia; Other specified diabetes mellitus with other specified complication, with long-term current use of insulin ([facility]); BMI 29.0-29.9,adult; Never smoked tobacco Start: 05-10-2023 End: 05-10-2023 ambulatory Barbara Ellis Other [facility] [employer] Other Start: 05-10-2023 Office outpatient vi sit 15 minutes Barbara Ellis [facility] Start: 03-19-2023 End: 03-20-[address] NITISH AGRAWAL Facility:H1 Start: 03-05-2023 Rx Renewal Nitish Agrawal Work Phone: [facility] 250 DO Work Phone: Start: 03-05-2023 End: 03-06-[address] NITISH AGRAWAL Facility:H1 Start: 02-13-2023 End: 02-14-[address] NITISH AGRAWAL Facility:[facility]1 Start: 01-23-2023 Office outpatient vi sit 15 minutes Nitish [facility]rawal [facility] Work Phone: Start: 01-23-[address] Nitish Agrawal Facility:[id number] Start: 11-28-2022 End: 11-29-[address] NITISH AGRAWAL Facility:[facility]1 Start: 11-13-2022 End: 11-14-2022 ambulatory NISHA FARRAR Facility:[facility]1 Start: 10-24-2022 End: 10-25-2022 ambulatory NISHA FARRAR Facility:[facility]1 Start: 07-18-2022 End: 07-19-2022 ambulatory NISHA FARRAR Facility:[facility]1 Start: 07-03-2022 End: 07-04-2022 ambulatory NISHA FARRAR Facility:[facility]1 Start: 06-20-2022 End: 06-21-2022 ambulatory NISHA FARRAR Facility:[facility]1 Start: 06-13-2022 Encounter for preprocedural laboratory examination NISHA FARRAR [facility] Start: 06-12-2022 End: 06-12-2022 ambulatory NISHA FARRAR Facility:[facility]1 Start: 06-09-2022 End: 06-10-2022 ambulatory NISHA FARRAR Facility:[facility]1 Start: 06-09-2022 End: 06-10-2022 Encounter for preprocedural laboratory examination NISAH FARRAR Facility:[facility]1 Start: 06-07-2022 End: 06-08-2022 ambulatory NISHA FARRAR Facility:[facility]1 Start: 06-06-2022 End: 06-07-2022 ambulatory NISHA FARRAR Facility:[facility]1 Start: 05-30-2022 End: 05-31-2022 ambulatory NISHA FARRAR Facility:[facility]1 Start: 05-02-2022 End: 05-03-2022 [facility] Start: 05-01-2022 Office outpatient vi sit 25 minutes Nitish Agrawal Work Phone: [facility] 250 DO Work Phone: Start: 05-01-[address] Helga Flores Facility:[id number] Start: 04-18-2022 End: 04-19-2022 ambulatory NISHA FARRAR Facility:[facility]1 Start: 04-14-2022 End: 04-15-2022 ambulatory NISHA FARRAR Facility:H1 Start: 03-30-2022 End: 03-31-[address] NITISH AGRAWAL Facility:H1 Start: 03-22-2022 End: 03-24-2022 Evaluation and management of inpatient SHAIKH Magui GOMEZ Facility:H1 Start: 03-22-2022 End: 03-23-[address] NITISH AGRAWAL Facility:H1 Start: 03-14-[address] Nitish Agrawal Facility:[id number] Start: 03-14-2022 Patient encounter procedure Nitish Agrawal Work Phone: [facility] 250 DO Work Phone: Start: 03-14-2022 SURGNON, Provider: Margaux Castillo, Status: Pen, Time: 12:00 PM Nitish Agrawal Work Phone: [facility] 250 DO Work Phone: Start: 03-14-2022 End: 03-15-2022 ambulatory Margaux Castillo Facility:[facility] Start: 03-13-2022 Chart Update Nitish Agrawal Work Phone: -[facility] 250 DO Work Phone: Start: 03-10-2022 Chart Update Nitish Agrawal Work Phone: -[facility] 600 DO Work Phone: Start: 03-10-2022 End: 03-10-2022 ambulatory Nitish Agrawal Facility:[facility] Start: 12-14-2021 Rx Renewal Nitish Agrawal Work Phone: -[facility] 250 DO Work Phone: Start: 11-22-2021 Office outpatient vi sit 25 minutes Nitish Agrawal Work Phone: [facility] 250 DO Work Phone: Start: 11-09-2021 SURGNON, Provider: Martin Elias, Status: Pen, Time: 1:00 PM Nitish Agrawal Work Phone: [facility] 250 DO Work Phone: Start: 11-08-2021 Chart Update Nitish Agrawal Work Phone: -[facility] 250 DO Work Phone: Start: 10-18-2021 Telephone encounter Nitish luz Work Phone: [facility] 600 DO Work Phone: Start: 10-14-2021 Chart Update Nitish Agrawal Work Phone: -[facility] 600 DO Work Phone: Start: 10-12-2021 Patient encounter procedure Nitish Agrawal Work Phone: -[facility] [address] [place] Work Phone: Start: 10-10-2021 End: 10-10-2021 ambulatory Jaelyn Espinal Other [facility] [employer] Other Start: 10-10-2021 Office outpatient vi sit 15 minutes Jaelyn Espinal [facility] Start: 09-28-2021 AUDIT Nitish Agrawal Work Phone: -[facility] [address] [place] Work Phone: Start: 09-27-2021 Office outpatient vi sit 25 minutes Nitish Agrawal Work Phone: [facility] 250 DO Work Phone: Start: 04-11-2017 End: 04-12-2017 Ambulatory [id number] MAILE AGRAWAL Facility:[facility] Procedures Date Procedure Procedure Detail Performing Clinician Start: 04-22-2025 XR FOOT LT MIN 3V Gener ic External Data Provider Start: 02-23-2025 Cv strs tst xers&/or rx [...] 12/07/2025 10:00 AM EST Office Visit [facility] [address] [place] [phone] Joyce Loyd NP [address] [place] [address] [facility] 230 Start: 12-04-2025 Medicare Annual Wellness (AWV) Medicare Annual Wellness (AWV) [facility] Start: 12-01-2025 Lipid panel Lipid Panel [facility] Start: 12-01-2025 Thyroid stimulating hormone measurement TSH Level [facility] Start: 12-01-2025 Urine screening for protein Diabetes: Urine Protein Screening [facility] Start: 09-21-2025 End: 09-21-2025 Patient encounter procedure 09/21/2025 8:30 AM EST Office Visit [facility] [address] [place] [phone] Lashaun Bradley DO [address] [place] [address] [facility] 230 Start: 08-04-2025 End: 08-04-2025 Patient encounter procedure 08/04/2025 11:10 AM EDT Office Visit [facility] [address] [place] [address] Martin Elias, [address] [place] [address] [facility] Start: 06-27-2025 Hemoglobin A1c measurement Diabetes: Hemoglobin A1C [facility] Start: 03-27-2025 Screening for malignant neoplasm of colon [facility] Start: 03-27-2025 End: 03-27-2025 Patient encounter procedure 03/27/2025 8:45 AM EDT Office Visit [facility] [address] [place] [phone] Lashaun Bradley DO [address] [place] [address] [facility] 230 Start: 03-12-2025 End: 03-12-2025 Patient encounter procedure 03/12/2025 8:00 AM EDT Office Visit [facility] [address] [place] [phone] Latha Caicedo PA [address] [place] [address] [facility] 230 Start: 03-01-2025 Hemoglobin A1c measurement Diabetes: Hemoglobin A1C [facility] Start: 02-01-2025 COVID-19 Vaccine ( season) COVID-19 Vaccine ( season) [facility] Start: 01-29-2025 End: 01-29-2025 Patient encounter procedure 01/29/2025 8:40 AM EDT [facility] [address] [place] [phone] Latha Caicedo PA [address] [place] [address] Arrived [facility] 230 Comment on above: Arrived Start: 01-28-2025 End: 01-28-2026 Basic metabolic 2000 panel - Serum or Plasma Basic Metabolic Panel Lab Routine Arteriosclerotic cardiovascular disease (ASCVD) Expected: 01/28/2025 (Approximate), Expires: 01/28/2026 [facility] Work Phone: Comment on above: Expected: 01/28/2025 (Approximate), Expi res: 01/28/2026 Start: 01-28-2025 End: 01-28-2026 C reactive protein [Mass/volume] in Serum or Plasma by High sensitivity method C-Reactive Protein, High Sensitivity Lab Routine Arteriosclerotic cardiovascular disease (ASCVD) Expected: 01/28/2025 (Approximate), Expires: 01/28/2026 [facility] [facility] Work Phone: Comment on above: Expected: 01/28/2025 (Approximate), Expi res: 01/28/2026 Start: 01-28-2025 End: 01-28-2026 Holter monitor study Holter Or Event Room [facility] Services Routine Angina pectoris Palpitations Tachycardia Expected: 01/28/2025, Expires: 01/28/2026 [facility] Service Area Work Phone: Comment on above: Expected: 01/28/2025, Expires: Start: 01-28-2025 End: 01-28-2026 Natriuretic peptide B [Mass/volume] in Blood B-Type Natriuretic Peptide Lab Routine Arteriosclerotic cardiovascular disease (ASCVD) ACC/AHA stage C congestive heart failure due to ischemic cardiomyopathy Expected: 01/28/2025 (Approximate), Expires: 01/28/2026 [facility] Work Phone: Comment on above: Expected: 01/28/2025 (Approximate), Expi res: 01/28/2026 Start: 01-28-2025 End: 01-28-2027 NM Heart Perfusion W stress and W radionuclide IV Nuclear Stress Test Cardiac Nuclear Medicine Routine 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 Status post angioplasty Angina pectoris Palpitations Tachycardia Expected: 01/28/2025 (Approximate), Expires: 01/28/2027 [facility] Work Phone: Comment on above: Expected: 01/28/2025 (Approximate), Expi res: 01/28/2027 Start: 01-28-2025 End: 01-28-2025 Patient encounter procedure 01/28/2025 9:50 AM EDT Office Visit [facility] [address] [place] [phone] Martin Elias, DO [address] [place] [address] [facility] Start: 12-04-2024 End: 12-04-2024 Patient encounter procedure 12/04/2024 11:20 AM EST Office Visit [facility] [address] [place] [phone] Nitish Agrawal, DO [address] [place] [address] Arrived [facility] Comment on above: Arrived Start: 12-02-2024 Hemoglobin A1c measurement Diabetes: Hemoglobin A1C [facility] Start: 12-01-2024 End: 12-01-2025 Prostate specific Ag [Mass/volume] in Serum or Plasma PSA Lab Routine Screening for prostate cancer Expected: 12/01/2024 (Approximate), Expires: 12/01/2025 [facility] Comment on above: Expected: 12/01/2024 (Approximate), Expi res: 12/01/2025 Start: 12-01-2024 End: 12-01-2024 Patient encounter procedure 12/01/2024 9:15 AM EST Office Visit [facility] [address] [place] [phone] Lashaun Bradley, DO [address] [place] [address] [facility] Start: 09-02-2024 Hemoglobin A1c measurement Diabetes: Hemoglobin A1C [facility] Start: 09-01-2024 End: 09-01-2024 Patient encounter procedure 09/01/2024 9:15 AM EDT Office Visit [facility] [address] [place] [phone] Lashaun Bradley DO [address] [place] [address] [facility] 230 Start: 08-09-2024 Urine screening for protein Diabetes: Urine Protein Screening [facility] Start: 07-06-2024 Influenza vaccination Influenza Vaccine (#1) [facility] Start: 06-27-2024 Glaucoma screening Diabetes: Retinopathy Screening [facility] Start: 06-27-2024 End: 06-27-2024 Patient encounter procedure 06/27/2024 8:50 AM EDT Office Visit [facility] [address] [place] [phone] Bari Chowdhury PA [address] [place] [phone] Arrived [facility] Comment on above: Arrived Start: 01-29-2024 End: 01-28-2025 Alanine aminotransferase [Enzymatic activity/volume] in Serum or Plasma by With P-5'-P Alanine Aminotransferase Lab Routine 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 Multiple vessel coronary artery disease Hypertension, unspecified type Mixed hyperlipidemia Expected: 01/29/2024 (Approximate), Expires: 01/28/2025 [facility] Work Phone: Comment on above: Expected: 01/29/2024 (Approximate), Expi res: 01/28/2025 Start: 01-29-2024 End: 01-28-2025 Aspartate aminotransferase [Enzymatic activity/volume] in Serum or Plasma by With P-5'-P Aspartate Aminotransferase Lab Routine 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 Multiple vessel coronary artery disease Hypertension, unspecified type Mixed hyperlipidemia Expected: 01/29/2024 (Approximate), Expires: 01/28/2025 [facility] Work Phone: Comment on above: Expected: 01/29/2024 (Approximate), Expi res: 01/28/2025 Start: 01-29-2024 End: 01-28-2025 C reactive protein [Mass/volume] in Serum or Plasma by High sensitivity method C-Reactive Protein, High Sensitivity Lab Routine 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 Multiple vessel coronary artery disease Hypertension, unspecified type Mixed hyperlipidemia Expected: 01/29/2024 (Approximate), Expires: 01/28/2025 [facility] Work Phone: Comment on above: Expected: 01/29/2024 (Approximate), Expi res: 01/28/2025 Start: 01-29-2024 End: 01-28-2025 Lipid 1996 panel - Serum or Plasma Lipid Panel Lab Routine 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 Multiple vessel coronary artery disease Hypertension, unspecified type Mixed hyperlipidemia Expected: 01/29/2024 (Approximate), Expires: 01/28/2025 [facility] Service Area Work Phone: Comment on above: Expected: 01/29/2024 (Approximate), Expi res: 01/28/2025 Start: 01-24-2024 FUV, Provider: Martin Elias, Status: Fidencio, Time: 9:30 AM FUV, Provider: Matrin Elias, Status: Fidencio, Time: 9:30 AM [facility] [employer] 250 DO Work Phone: Start: 01-23-2023 Medicare Annual Wellness (AWV) Medicare Annual Wellness (AWV) [facility] Start: 11-16-2022 FUV, Provider: Martin Elias, Status: Fidencio, Time: 10:20 AM FUV, Provider: Martin Elias, Status: Fidencio, Time: 10:20 AM [facility] 250 DO Work Phone: Start: 08-25-2022 Pneumococcal Vaccine: 65+ Years (2 - PCV) Pneumococcal Vaccine: 65+ Years (2 - PCV) [facility] Start: 08-25-2022 Pneumococcal Vaccine: 65+ Years (2 of 2 - PCV) Pneumococcal Vaccine: 65+ Years (2 of 2 - PCV) [facility] Start: 05-29-2022 FUV, Provider: Helga Flores, Status: Pen, Time: 10:15 AM FUV, Provider: Helga Flores, Status: Pen, Time: 10:15 AM -[facility] 250 DO Work Phone: Start: 05-01-2022 FUV, Provider: Helga Flores, Status: Pen, Time: 9:30 AM FUV, Provider: Helga Folres, Status: Pen, Time: 9:30 AM -[facility] 600 DO Work Phone: Start: 03-21-2022 FUV, Provider: Helga Flores, Status: Pen, Time: 9:15 AM FUV, Provider: Helga Flores, Status: Pen, Time: 9:15 AM -[facility] 250 DO Work Phone: Start: 03-14-2022 SURGNONUH, Provider: Margaux Castillo, Status: Pen, Time: 12:00 PM [facility], Provider: Margaux Castillo, Status: Pen, Time: 12:00 PM -[facility] 600 DO Work Phone: Start: 11-09-2021 SURGNONUH, Provider: Martin Elias, Status: Pen, Time: 1:00 PM SURGNON[facility], Provider: Martin Elias, Status: Pen, Time: 1:00 PM -[facility] 600 DO Work Phone: Start: 10-12-2021 STRESS NUC, Provider: [place] MARRI NUCLEAR 01,[id number], Status: Pen, Time: 7:30 AM STRESS NUC, Provider: [place] HHVI NUCLEAR 01,[id number], Status: Pen, Time: 7:30 AM [facility] 250 DO Work Phone: Start: 02-07-2006 Zoster Vaccines (1 of 2) Zoster Vaccines (1 of 2) [facility] Start: 02-07-1978 DTaP/Tdap/Td Vaccines (1 - Tdap) DTaP/Tdap/Td Vaccines (1 - Tdap) [facility] Start: 02-07-1975 Urine screening for protein Diabetes: Urine Protein Screening [facility] Start: 02-07-1974 Hepatitis C screening Hepatitis C Screening [facility] Start: 02-07-1966 Diabetic foot examination Diabetes: Foot Exam [facility] Start: 02-07-1966 Glaucoma screening Diabetes: Retinopathy Screening [facility] Start: 1956 Creatinine measurement Creatinine Level [facility] Start: 1956 Echocardiography Echocardiogram [facility] Start: 1956 Hemoglobin A1c measurement Diabetes: Hemoglobin A1C [facility] Start: 1956 Lipid panel Lipid Panel [facility] Start: 1956 Medicare Annual Wellness Visit Medicare Annual Wellness Visit (AWV) [facility] Start: 1956 Potassium measurement Potassium Level [facility] Start: 1956 Screening for malignant neoplasm of colon [facility] Start: 1956 Thyroid stimulating hormone measurement TSH Level [facility] CBC W Auto Different ial panel - Blood CBC and differential Lab Routine Preventative health care Ordered: 12/01/2024 [facility] Comment on above: Ordered: 12/01/2024 Comprehensive metabo lic 2000 panel - Serum or Plasma Comprehensive metabolic panel Lab Routine Preventative health care Ordered: 12/01/2024 [facility] Work Phone: Comment on above: Ordered: 12/01/2024 Lipid 1996 panel - S mariely or Plasma Lipid panel Lab Routine Preventative health care Ordered: 12/01/2024 [facility] Comment on above: Ordered: 12/01/2024 Microalbumin/Creatin ine panel in random Urine Microalbumin / creatinine urine ratio Lab Routine Type 2 diabetes mellitus with other circulatory complications (CMS/HCC) Ordered: 12/01/2024 [facility] Comment on above: Ordered: 12/01/2024 Thyrotropin [Units/volume] in Serum or Plasma TSH Lab Routine Preventative health care Ordered: 12/01/2024 [facility] Comment on above: Ordered: 12/01/2024 Immunizations Immunization Date Immunization Notes Care Provider Ele mcneal 12-04-2024 Pneumococcal Conjuga te PCV 20 Joyce Loyd MANAGER [employer]ONE[employer] Work Phone: [facility] 08-04-2024 influenza, high dose seasonal, preservative-free Lashaun Bradley DO Work Phone: [facility] 08-21-2023 Influenza, Seasonal, Quadrivalent, Adjuvanted [facility] Work Phone: [facility] 08-21-2023 influenza virus vacc ine, unspecified formulation [facility] Work Phone: [facility] 08-09-2023 RSV, recombinant, protein subunit RSVpreF, adjuvant reconstitu, 120mcg/0.5mL, PF (Arexvy) [facility] Work Phone: [facility] 08-02-2022 Fluzone High-Dose Quadrivalent 0.7 ML Intramuscular Suspension Prefilled Syringe Nitish Agrawal Work Phone: [facility] 250 DO Work Phone: 08-02-2022 Pfizer COVID-19 Vac Bivalent 30 MCG/0.3ML Intramuscular Suspension Nitish Agrawal Work Phone: [facility] 09-02-2021 NewsWhipLinkdexNTech COVI D-19 Vacc 30 MCG/0.3ML Intramuscular Suspension Nitish Agrawal Work Phone: [facility] 08-25-2021 Fluad Quadrivalent 0 .5 ML Intramuscular Prefilled Syringe Nitish Agrawal Work Phone: [facility] 250 DO Work Phone: 08-25-2021 pneumococcal polysaccharide vaccine, 23 valent Nitish Agrawal Work Phone: [facility] 02-06-2021 PfizerBeeBillionNTVision Source COVI D-19 Vacc 30 MCG/0.3ML Intramuscular Suspension Nitish Agrawal Work Phone: [facility] 01-16-2021 Pfizer-BioNTech COVI D-19 Vacc 30 MCG/0.3ML Intramuscular Suspension Nitish Agrawal Work Phone: [facility] 11-22-2020 zoster vaccine recombinant [facility]itish [facility]rawal [facility] Work Phone: 11-22-2020 zoster vaccine, unspecified formulation Martin Elias DO Work Phone: [facility] Work Phone: 09-09-2020 influenza, high dose seasonal, preservative-free Nitish Agrawal Work Phone: [facility] 250 DO Work Phone: 09-05-2020 influenza virus vacc ine, unspecified formulation Nitish Agrawal Work Phone: [facility] 250 DO Work Phone: 09-05-2020 influenza, seasonal, injectable Bari HARRIS Work Phone: [facility] 08-29-2020 influenza, injectabl e, quadrivalent, preservative free Nitish Agrawal Work Phone: [facility] 250 DO Work Phone: 08-29-2020 zoster vaccine recombinant Nitish Agrawal Work Phone: [facility] 250 DO Work Phone: 08-29-2020 zoster vaccine, unspecified formulation Martin Elias DO Work Phone: [facility] Work Phone: 09-07-2019 influenza virus vacc ine, unspecified formulation Nitish Agrawal Work Phone: [facility] 250 DO Work Phone: 08-26-2019 Influenza, injectabl e, Madin Caitie Canine Kidney, preservative free, quadrivalent Nitish Agrawal Work Phone: [facility] 250 DO Work Phone: 11-05-2017 pneumococcal polysaccharide vaccine, 23 valent Nitish Abel Agrawal Work Phone: [facility] 09-18-2017 influenza, injectabl e, quadrivalent, preservative free Nitish Agrawal Work Phone: [facility] 250 DO Work Phone: 08-06-2017 influenza, high dose seasonal, preservative-free Nitish Agrawal Work Phone: [place] [address] DO Work Phone: 08-05-2016 influenza virus vacc ine, unspecified formulation Nitish Roman Tanja Work Phone: [place] [address] DO Work Phone: 07-24-2011 influenza, seasonal, injectable, preservative free Nitish Agrawal Work Phone: [place] [address] DO Work Phone: 11-05-2010 influenza virus vacc ine, unspecified formulation Nitish Abel Gordoner Work Phone: [place] [address] DO Work Phone: 08-05-2010 pneumococcal polysaccharide vaccine, 23 valent Nitish Abel Tanja Work Phone: [facility] 250 DO Work Phone: 08-13-2008 influenza, seasonal, injectable, preservative free Nitish Agrawal Work Phone: [place] [address] DO Work Phone: influenza virus vacc ine, unspecified formulation Nitish Roman Tanja Work Phone: [place] [address] DO Work Phone: Comment on above: Sep 2010 Payers Date Payer Category Payer Self-pay 2021 Medicare [id number] 2021 Private Health Insurance [employer] [id number] 2021 Unknown 2017 Unknown [id number] 1959 Medicare [id number] 1959 Unknown [id number] 2.16.840.1.745272.19 1956 Unknown [id number] 2.16.840.1.399216.3.579.2. 356 1956 Unknown [id number] 2.16.840.1.047302.3.579.2. 356 1956 Unknown [id number] 2.16.840.1.639668.3.579.2. 356 1956 Unknown [id number] 2.16.840.1.580526.3.579.2. 593 1956 Unknown [id number] 2.16.840.1.573488.3.579.2. 593 1956 Unknown [id number] 2.16.840.1.889055.3.579.2. 593 1956 Unknown [id number] 2.16.840.1.264795.3.579.2. 593 1956 Unknown [id number] 2.16.840.1.817693.3.579.2. 593 1956 Unknown [id number] 2.16.840.1.492294.3.579.2. 593 1956 Unknown [id number] 2.16.840.1.617772.3.579.2. 593 1956 Unknown [id number] 2.16.840.1.501305.3.579.2. 593 1956 Unknown [id number] 2.16.840.1.216822.3.579.2. 593 1956 Unknown [id number] 2.16.840.1.048470.3.579.2. 593 1956 Unknown [id number] 2.16.840.1.979780.3.579.2. 593 1956 Unknown [id number] 2.16.840.1.854431.3.579.2. 593 1956 Unknown [id number] 2.16.840.1.650508.3.579.2. 593 1956 Unknown [id number] 2.16.840.1.560239.3.579.2. 593 1956 Unknown [id number] 2.16.840.1.139201.3.579.2. 593 1956 Unknown [id number] 2.16.840.1.398368.3.579.2. 593 1956 Unknown [id number] 2.16.840.1.285742.3.579.2. 593 1956 Unknown [id number] 2.16.840.1.362986.3.579.2. 593 1956 Unknown [id number] 2.16.840.1.070152.3.579.2. 593 1956 Unknown [id number] 2.16.840.1.445063.3.579.2. 593 1956 Unknown [id number] 2.16.840.1.904412.3.579.2. 1246 1956 Unknown [id number] 2.16.840.1.702740.3.579.2. 1246 1956 Unknown [id number] 2.16.840.1.305555.3.579.2. 1245 1956 Unknown [id number] 2.16.840.1.172083.3.579.2. 1245 1956 Unknown [id number] 2.16.840.1.280165.3.579.2. 1245 1956 Unknown [id number] 2.16.840.1.142649.3.579.2. 1258 1956 Unknown [id number] 2.16.840.1.716108.3.579.2. 1258 1956 Unknown [id number] 2.16.840.1.299444.3.579.2. 1258 1956 Unknown [id number] 2.840.1.012597.3.579.2. 1258 1956 Unknown [id number] 2.16840.1.400262.3.579.2. 1258 1956 Unknown [id number] 2..840.1.436144.3.579.2. 1258 1956 Unknown [id number] 2.16.840.1.352040.3.579.2. 1258 1956 Unknown [id number] 2.16.840.1.011982.3.579.2. 1258 1956 Unknown [id number] 2.16.840.1.801056.3.579.2. 1258 1956 Unknown [id number] 2.16.840.1.232298.3.579.2. 1258 1956 Unknown [id number] 2.16.840.1.396319.3.579.2. 4 1956 Unknown [id number] 2.16.840.1.348512.3.579.2. 1244 Unknown [id number] 2.16.840.1.660810.3.579.2. 531 Unknown [id number] 2.16.840.1.087100.3.579.2. 531 Social History Date Type Detail Facility Start: 01-29-2024 End: 03-27-2025 Caffeine use Caffeine use -[facility] 250 DO Work Phone: Comment on above: occassional; Start: 01-29-2024 End: 03-27-2025 Sex Assigned At [facility] [employer] Other Start: 01-29-2024 End: 06-16-2024 Tobacco smoking status NHIS Never smoked tobacco [facility] Start: 01-29-2024 End: 06-16-2024 Tobacco use and exposure Smokeless tobacco non-user [facility] Work Phone: Start: 01-29-2024 End: 03-27-2025 Alcohol intake Lifetime non-drinker (finding) [facility] Work Phone: Start: 1955 Sex Assigned At Not on file [facility] Work Phone: Start: 01-19-2024 End: 01-30-2025 Exposure to SARS-CoV-2 (event) Not sure [facility] How often to you hav e a drink containing alcohol? Never [facility] How many standard drinks containing alcohol do you have on a typical day? Patient does not drink [facility] Start: 1955 Sex assigned at Male [facility] Start: 09-23-2024 Gender identity Identifies as male gender (finding) [facility] Work Phone: NEGATED: Highlighted rowStart: NINF History of tobacco use Passive smoker [facility] Medical Equipment Procedure Code Equipment Code Equipment Origin al Text Equipment Identifier Dates Fsbs daily [id number] Start: 03-03-2024 Fsbs daily [id number] Start: 03-03-2024 Clinical Notes 10-08-2017 to 01-29-2025 STEVEN Costa - 01/29/2025 8:40 AM Nydia Elias DO - 01/28/2025 9:50 AM EDTPatient Shayy Abel Agrawal, DO - 12/04/2024 11:20 AM Shadycari Bradley, DO - 12/01/2024 9:35 AM EST [...] around large groups. Pt was told by Hand Tube Bender he wants to have a stress test [...] questions or concerns. documented in this encounter [facility] 01-28-2025 History of Presen t illness Narrative [...] signing my name below, Mandi Recio LPN, Micahibe attest that this documentation has been prepared [...] discussion and plan. documented in this encounter [facility] Work Phone: 01-28-2025 Instructions Mandi Oakley [...] instructions on exercise. documented in this encounter [facility] Work Phone: 12-04-2024 History of Presen [...] FOR 90 DAYS Blood Glucose Monitoring Suppl (beModeluch Verio Flex System) w/Device kit No dose, [...] fenofibrate (TRICOR) 145 mg, Daily glucose blood (OneTouch Verio) test strip Fsbs daily hydrOXYzine HCl [...] (H) 0.70 - 1.30 mg/dL [facility] EGFR-AF SRI LANKAN >60 >=60 mL/min/1.73m 2 [facility] EGFR-NON AF SRI LANKAN 51 (L) >=60 mL/min/1.73m 2 BUN CREATININE [...] the patient today. documented in this encounter [facility] 12-01-2024 History of Presen t illness Narrative [...] 2 diabetes mellitus with other circulatory complications ([facility]/HCC) Anemia, unspecified Atherosclerotic heart disease of [place] coronary artery without angina pectoris ([facility]/HCC) Gastro-esophageal reflux disease without esophagitis Osteoarthritis of knee, unspecified Stage 3a chronic kidney disease (CKD) ([facility]/HCC) Hypertension ([facility]/HCC) Hyperlipidemia ([facility]) History of coronary artery bypass graft Type 2 diabetes mellitus with stage 3a chronic kidney disease, without long-term current use of insulin ([facility]) ([facility]) Social History Tobacco Use Smoking [...] 2 diabetes mellitus with other circulatory complications (CMS/[facility]) - Primary During the appointment [...] they have any problems or questions. Janice Kilgore Liliana is making improvements and encouraged on this. , Will stay on current medications. , Instructions given today include: Dietary education Relevant Orders POCT glycosylated hemoglobin (Hb A1C) docked device (Completed) Microalbumin / creatinine urine ratio Type 2 diabetes mellitus with stage 3a chronic kidney disease, without long-term current use of insulin (HCC) (CMS/[facility]) Other Visit Diagnoses Preventative health [...] FOR 90 DAYS BLOOD GLUCOSE MONITORING SUPPL (UpdateLogic VERIO FLEX SYSTEM) W/DEVICE KIT CARVEDILOL (COREG) [...] for chest pain. ONETOUCH DELICA LANCETS 33G [facility] [place] daily SEMAGLUTIDE, 2 MG/DOSE, (OZEMPIC, 2 MG/DOSE,) 8 MG/3ML SOLUTION PEN-INJECTOR Inject 2 mg under the skin 1 (one) time per week Modified Medications No medications on file Discontinued Medications No medications on file I have reviewed and reconciled the history and medication list with the patient today. documented in this encounter [facility] 09-01-2024 History of Presen t illness Narrative Associated Problem(s): Type 2 diabetes mellitus with other circulatory complications ([facility]) During the appointment today all [...] 2 diabetes mellitus with other circulatory complications ([facility]) Anemia, unspecified Atherosclerotic heart disease of [place] coronary artery without angina pectoris ([facility]) Gastro-esophageal reflux disease without esophagitis Osteoarthritis of knee, unspecified Stage 3a chronic kidney disease (CKD) (CMS/[facility]) Hypertension ([facility]/HCC) Hyperlipidemia ([facility]) History of coronary artery bypass graft Type 2 diabetes mellitus with stage 3a chronic kidney disease, without long-term current use of insulin ([facility]) ([facility]) Social History Tobacco Use Smoking [...] FOR 90 DAYS BLOOD GLUCOSE MONITORING SUPPL (Crowd FusionUCH VERIO FLEX SYSTEM) W/DEVICE KIT CARVEDILOL (COREG) [...] by mouth in the morning. GLUCOSE BLOOD (Resort GemsTOUCH VERIO) TEST STRIP Fsbs daily ISOSORBIDE MONONITRATE [...] (five) minutes if needed for chest pain. Resort GemsUCH DELICA LANCETS 33[place] [facility] [place] daily Modified Medications No medications on file Discontinued Medications SEMAGLUTIDE (OZEMPIC, 1 MG/DOSE,) 4 MG/3ML SOLUTION PEN-INJECTOR Inject 1 mg under the skin 1 (one) time per week I have reviewed and reconciled the history and medication list with the patient today. documented in this encounter [facility] 08-29-2024 Telephone encounter Note LVM appointment reminder [facility] 08-29-2024 Miscellaneous Notes M appointment reminder documented in this encounter [facility] 06-27-2024 History of Presen t illness Narrative [...] (2) Chest - Medial (Center), Left Axilla Skyline and brown stuck on verrucous scaly papule [...] limited to risks of scarring, darker or mill tender second operator pigmentary changes, recurrence, incomplete removal and infection. [...] Visit: 1 year documented in this encounter [facility] 06-16-2024 History of Presen t illness Narrative [...] FOR 90 DAYS Blood Glucose Monitoring Suppl (beModeluch Verio Flex System) w/Device kit No dose, [...] fenofibrate (TRICOR) 145 mg, Daily glucose blood (CFBankTouch Verio) test strip Fsbs daily isosorbide mononitrate ER (IMDUR) 60 mg, Daily levothyroxine (SYNTHROID, LEVOXYL) 200 mcg, Oral, Daily metFORMIN XR (GLUCOPHAGE-XR) 500 mg, Oral, 2 times daily nitroglycerin (NITROSTAT) 0.4 mg, Every 5 min PRN CFBankTouch Delica Lancets 33G misc Fsbs daily Ozempic [...] follow-ups on file. documented in this encounter [facility] 01-29-2024 History of Presen t illness Narrative [...] complication, with long-term current use of insulin ([facility]) 8. BMI 29.0-29.9,adult 9. Never smoked tobacco Scribe Attestation By signing my name below, I, Micah Otero LPNibkvng attest that this documentation has been [...] discussion and plan. documented in this encounter [facility] Work Phone: 01-29-2024 Instructions Sheri Newman [...] instructions on exercise. documented in this encounter [facility] Work Phone: 05-10-2023 Evaluation note Encounter [...] the ER for worsening symptoms or concerns. [employer] Other 01-24-2023 NotePROCEDURE: XR FOOT RT MIN [...] Electronically authenticated by: HUSAM GAMEZ Date: 2022-11-28 15:28[facility]08-08-2022 NotePROCEDURE: XR FOOT RT MIN 3 [...] authenticated by: ROSA MARIA MATOS Date: 2022-06-12 21:05[facility]08-02-2022 NotePROCEDURE: XR FOOT RT MIN 3 [...] Electronically authenticated by: HUSAM GAMEZ Date: 2022-06-06 19:33[facility]05-19-2022 NotePROCEDURE: XR FOOT RT MIN 3 [...] authenticated by: HUSAM GAMEZ Date: 2022-03-23 11:10[facility]* Encounter Date Diagnosis Assessment Notes Treatment Notes Treatment Clinical Notes Oct, Sore throat (ICD-10 - J02.9) symptoms appear viral in nature. Reassurance given. . Saltwater gargles may help with pain and disrupts bacteria and viral infections. Continue tylenol/ibu for general discomfort. Encourage fluids. Symptoms should improve within the next 4-7 days. [employer] Other 12-04-2017 History general Narrative - Reported* Type Description Date Medical History Diabetes mellitus Medical History Hyperlipidemia Medical History Hypothyroidism Surgical History CABG 1992 Surgical History cardiac stent 2002 Surgical History right knee arthroplasty 10/08/20 Surgical History left knee arthroplasty 03/2016 Surgical History Foot Surgery Hospitalization History see above surgical histo ry [employer] Other Evaluation note* Diagnosis Arteriosclerotic cardiovascular disease [...] Never smoked tobacco documented in this encounter [facility] Work Phone: Evaluation note* Diagnosis Type [...] mellitus with hyperosmolarity without coma, unspecified whether custodial insulin use (CMS/HCC) Type 2 diabetes mellitus with stage 3a chronic kidney disease, without long-term current use of insulin (HCC) (CMS/HCC) Type 2 diabetes mellitus with other circulatory complications (CMS/HCC) Type 2 diabetes mellitus with other circulatory complications (CMS/HCC) documented in this encounter [facility] HealthcareEvaluation note* Diagnosis Type 2 diabetes mellitus with other circulatory complications (CMS/HCC)- Primary Screening for prostate cancer Special screening for malignant neoplasm of prostate Type 2 diabetes mellitus with stage 3a chronic kidney disease, without long-term current use of insulin (HCC) (CMS/HCC)- Primary Type 2 diabetes mellitus with other circulatory complications (CMS/HCC) Type 2 diabetes mellitus with hyperosmolarity without coma, unspecified whether custodial insulin use (CMS/HCC) Type 2 diabetes mellitus [...] circulatory complications (CMS/HCC) documented in this encounter [facility] HealthcareEvaluation note* Diagnosis Other seborrheic dermatitis- Primary Acrochordon Unspecified hypertrophic and atrophic condition of skin Other specified erythematous conditions Inflamed seborrheic keratosis documented in this encounter [facility] HealthcareEvaluation note* Diagnosis Type 2 diabetes mellitus with other circulatory complications (CMS/HCC)- Primary Screening for prostate cancer Special screening for malignant neoplasm of prostate Type 2 diabetes mellitus with stage 3a chronic kidney disease, without long-term current use of insulin (HCC) (CMS/HCC)- Primary Type 2 diabetes mellitus with other circulatory complications (CMS/HCC) Type 2 diabetes mellitus with hyperosmolarity without coma, unspecified whether middle or intermediate school principal insulin use (CMS/HCC) Type 2 diabetes mellitus [...] neoplasm of prostate documented in this encounter [facility] HealthcareEvaluation note* Diagnosis Type 2 diabetes mellitus with other circulatory complications (CMS/HCC)- Primary Screening for prostate cancer Special screening for malignant neoplasm of prostate Type 2 diabetes mellitus with stage 3a chronic kidney disease, without long-term current use of insulin (HCC) (CMS/HCC)- Primary Type 2 diabetes mellitus with other circulatory complications (CMS/HCC) Type 2 diabetes mellitus with hyperosmolarity without coma, unspecified whether custodial insulin use (CMS/HCC) Type 2 diabetes mellitus [...] hyperlipidemia type (CMS/HCC) documented in this encounter [facility] HealthcareEvaluation note* Diagnosis Arteriosclerotic cardiovascular disease [...] to ischemic cardiomyopathy documented in this encounter [facility] Work Phone: Evaluation note* Diagnosis Type [...] mellitus with hyperosmolarity without coma, unspecified whether custodial insulin use (CMS/HCC) Type 2 diabetes mellitus [...] Anxiety state, unspecified documented in this encounter [facility] HealthcareEvaluation note* Diagnosis Type 2 diabetes mellitus with other circulatory complications- Primary Screening for prostate cancer Special screening for malignant neoplasm of prostate Type 2 diabetes mellitus with stage 3a chronic kidney disease, without long-term current use of insulin (HCC) ([facility])- Primary Type 2 diabetes mellitus with other circulatory complications Type 2 diabetes mellitus with hyperosmolarity without coma, unspecified whether middle or intermediate school principal insulin use (CMS/HCC) Type 2 diabetes mellitus with stage 3a chronic kidney disease, without long-term current use of insulin (HCC) ([facility]) 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 complications- Primary Type 2 diabetes mellitus with stage 3a chronic kidney disease, without long-term current use of insulin (HCC) ([facility]) Preventative health care Routine general medical examination at a health care facility Screening for prostate cancer Special screening for malignant neoplasm of prostate Hypothyroidism (acquired) ([facility])- Primary Unspecified hypothyroidism documented in this encounter [facility]* Diagnosis Arteriosclerotic cardiovascular disease (ASCVD) Unspecified cardiovascular disease History of coronary artery bypass graft Postsurgical aortocoronary bypass status Status post angioplasty Postsurgical percutaneous transluminal coronary angioplasty status Angina pectoris Other and unspecified angina pectoris Palpitations Tachycardia Unspecified tachycardia documented in this encounter [facility] Work Phone: History of Present illness Narrative* Mr. Ford is a 66-year-old male who is seen back today for follow-up on his history of coronary disease. He had bypass surgery that was done remotely back in 1992 at [facility] in [place]. He had a WALL graft to the [...] completed. No change made to medications today. [facility] Job DO Work Phone: History of Present illness Narrative* Mr. Ford is a 66-year-old male who is seen back today for follow-up on his history of coronary disease. He had remote bypass surgery that was done back in 1992 at [facility].He had a WALL graft to the LAD [...] This [facility] for [facility]. He is to return in 6 months for follow-up. [facility] Job DO Work Phone: History of Present illness Narrative* Mr. Ford is a 67-year-old male who is seen back today for follow-up on his history of coronary disease. He had remote bypass surgery that was done back in 1992 at [facility]. 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 This was redilated and stented. He had a recent episode at cardiac rehab in [place] and because of this was seen in [...] He is to return in 6 months. [facility] 250 DO Work Phone: History of Present [...] 90 tablet 3 Blood Glucose Monitoring Suppl ([employer] Verio Flex System) w/Device kit carvedilol (Coreg) [...] by mouth in the morning. glucose blood (beModeluch Verio) test strip Fsbs daily 100 strip [...] for chest pain. OneTouch Delica Lancets 33G [facility] Fsbs daily 100 each 3 Semaglutide, 2 [...] Normal/bedrest/immobile Mental Status: Oriented to own ability Gema Fall Risk Score: 0 Health Risk Assessment [...] Do you have a medical power of finishing lab technician?: Yes Who is your medical power of finishing lab technician?: aleixskarlo Ford Objective : BP 120/78 Pulse 62 [...] conjugate vaccine 20-valent IM Hypertension, unspecified type ([facility]) Stage 3a chronic kidney disease (CKD) ([facility]) Type 2 diabetes mellitus with stage 3a chronic kidney disease, without long-term current use of insulin (HCC) ([facility]) Hyperlipidemia, unspecified hyperlipidemia type ([facility]) Patient here for annual Medicare [...] December 04, 2024 [facility] Consultation (Routine) - Authorized Specialty Diagnoses / Procedures Referred By Vaughn costa Referred To Contact Cardiology Diagnoses Arteriosclerotic cardiovascular disease (ASCVD) Procedures Follow Up In Cardiology Martin Elias DO [address] [facility] 2, [address] [address] Martin Elias DO [address] [facility] 2, [address] [address] Referral ID Status Reason Start Date Expiration Date V isits Requested Visits Authorized [id number] Authorized 01/29/2024 01/28/2025 1 1 [facility] Work Phone: Reason for visit Narrative* Cardiac Stress Testing (Routine) - Authorized Specialty Diagnoses / Procedures Referred By Haileeac t Referred To Contact Radiology Diagnoses 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 Status post angioplasty Angina pectoris Palpitations Tachycardia Procedures Nuclear Stress Test CHG MYOCARDIAL SPECT MULTIPLE STUDIES Martin Elias DO [address] [facility] 2, [address] [address] Phone: tel: fax: Referral ID Status Reason Start Date Expiration Date V isits Requested Visits Authorized [id number] Authorized 01/28/2025 01/28/2026 5 5 [facility] Work Phone: Reason for visit Narrative* Cardiac Stress Testing (Routine) - Authorized Specialty Diagnoses / Procedures Referred By Contac t Referred To Contact Radiology Diagnoses 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 Status post angioplasty Angina pectoris Palpitations Tachycardia Procedures Nuclear Stress Test CHG MYOCARDIAL SPECT MULTIPLE STUDIES Martin Elias DO [address] [facility] 2, [address] [address] Phone: tel: fax: Referral ID Status Reason Start Date Expiration Date V isits Requested Visits Authorized [id number] Authorized 01/28/2025 01/28/2026 5 5 [facility] Work Phone: Summary Purpose Family History [...] section and content) DATE CREATED AUTHOR 05/01/2018 [facility] DATE CREATED AUTHOR AUTHOR'S ORGANIZ ATION 01/25/2022 [facility] Special[facility] DATE CREATED AUTHOR AUTHOR'S ORGANIZ ATION 03/03/2022 [facility] DATE CREATED AUTHOR AUTHOR'S ORGANIZ ATION 12/09/2022 [facility] DATE CREATED AUTHOR AUTHOR'S ORGANIZ ATION 01/24/2023 [facility] DATE CREATED AUTHOR AUTHOR'S ORGANIZ ATION 02/20/2023 [facility] DATE CREATED AUTHOR AUTHOR'S ORGANIZ ATION 03/21/2023 [facility] DATE CREATED AUTHOR AUTHOR'S ORGANIZ ATION 03/18/2025 [facility] DATE CREATED AUTHOR AUTHOR'S ORGANIZ ATION 04/02/2025 [facility] d[facility] Specialists EPIC DATE CREATED AUTHOR AUTHOR'S ORGANIZ ATION 05/10/2025 [facility] REASON FOR VISIT (unrecogniz ed section [...] Procedures Follow Up In Cardiology Martin Elias, [address] [place] [address], [address] [address] Phone: tel: fax: Martin Elias, [address] [place] [address] 2, [address] [address] Phone: tel: fax: Referral ID Status Reason Start Date Expiration Date V isits Requested Visits Authorized [id number] Authorized 01/29/2024 01/28/2025 1 1 Reason Comments Anxiety Pt presents to discu anxiety. Pt notes periods of chest tightness when going to work on things, noticing a difference in personality when around large groups. Pt was told by Hand Tube Bender he wants to have a stress test and he started to get all tense about this. Care Teams (unrecognized sec tion and content) Project Management Manager Relationship Specialty Start Date End Date Nitish Agrawal, DO [address] [place] [id number] PCP - General 09/18/19 Project Management Manager Relationship Specialty Start Date End Date Lashaun Bradley, DO [address] [place] [address] PCP - ACO Reach 03/29/23 Nitish Agrawal, DO [address] [place] [address] PCP - General Family Medicine 03/13/23 Project Management Manager Relationship Specialty Start Date End Date Lashaun Bradley, DO [address] [place] [address] PCP - ACO Reach 03/29/23 Nitish Agrawal, DO [address] [place] [address] PCP - General Family Medicine 03/13/23 Project Management Manager Relationship Specialty Start Date End Date Lashaun Bradley, DO [address] [place] [address] PCP - ACO Reach 03/29/23 Nitish Agrawal, DO [address] [place] [address] PCP - General Family Medicine 03/13/23 Project Management Manager Relationship Specialty Start Date End Date RonibrandanWojciechLashaun M, DO [address] [place] [address] PCP - ACO Reach 03/29/23 Nitish Agrawal, DO [address] [place] [address] PCP - General Family Medicine 03/13/23 Project Management Manager Relationship Specialty Start Date End Date Lashaun Bradley, DO [address] [place] [address] PCP - ACO Reach 03/29/23 Nitish Agrawal, DO [address] [place] [address] PCP - General Family Medicine 03/13/23 Project Management Manager Relationship Specialty Start Date End Date RonibrandanWojciechLashaun M, DO [address] [place] [address] PCP - ACO Reach 03/29/23 Nitish Agrawal, DO [address] [place] [address] PCP - General Family Medicine 03/13/23 Project Management Manager Relationship Specialty Start Date End Date Lashaun Bradley, DO [address] [place] [address] PCP - ACO Reach 03/29/23 Nitish Agrawal, DO [address] [place] [address] PCP - General Family Medicine 03/13/23 Elliot Elias MD [address] [facility] [address] [place] [address] Referring Physician Cardiology 12/04/24 Nisha Farrar MD [address] [place] [address] [place] [address] Referring Physician Podiatry 12/04/24 Project Management Manager Relationship Specialty Start Date End Date Lashaun Bradley DO [address] [place] [address] PCP - ACO Reach 03/29/23 Nitish Agrawal DO [address] [place] [address] PCP - General Family Medicine 03/13/23 Project Management Manager Relationship Specialty Start Date End Date Nitish Agrawal DO [address] [phone] PCP - General 09/18/19 Project Management Manager Relationship Specialty Start Date End Date Lashaun Bradley DO [address] [place] [address] PCP - ACO Reach 03/29/23 Nitish Agrawal DO [address] [place] [address] PCP - General Family Medicine 03/13/23 Elliot Elias MD [address] [place] [address] [address] [place] [address] Referring Physician Cardiology 12/04/24 Nisha Farrar MD [address] [place] [address] [place] [address] Referring Physician Podiatry 12/04/24 Project Management Manager Relationship Specialty Start Date End Date Lashaun Bradley, DO [address] [place] [address] PCP - ACO Reach 03/29/23 Nitish Agrawal, [address] [place] [address] PCP - General Family Medicine 03/13/23 Elliot Elias MD [address] [facility] 2, [address] [place] [address] Referring Physician Cardiology 12/04/24 Nisha Farrar MD [address] [place], [place] [address] [address] Referring Physician Podiatry 12/04/24 Project Management Manager Relationship Specialty Start Date End Date Lashaun Bradley, DO [address] [place] [address] PCP - ACO Reach 03/29/23 Nitish Agrawal, [address] [place] [address] PCP - General Family Medicine 03/13/23 Elliot Elias MD [address] [facility] 2, [address] [place] [address] Referring Physician Cardiology 12/04/24 Nisha Farrar MD [address] [place] [address] [place] [address] Referring Physician Podiatry 12/04/24 Project Management Manager Relationship Specialty Start Date End Date Lashaun Bradley, DO [address] [place] [address] PCP - ACO Reach 03/29/23 Nitish Agrawal, DO [address] [place] [address] PCP - General Family Medicine 03/13/23 Elliot Elias MD [address] [place] [address] 2, [address] [place] [address] Referring Physician Cardiology 12/04/24 Nisha Farrar MD [address] [place] [address] [place] [address] Referring Physician Podiatry 12/04/24 Project Management Manager Relationship Specialty Start Date End Date Nitish Agrawal, DO [address] [place] [address] PCP - General 09/18/19 Project Management Manager Relationship Specialty Start Date End Date Nitish Agrawal, [address] [place] [address] PCP - General 09/18/19 Project Management Manager Relationship Specialty Start Date End Date Nitish Agrawal DO [address] [place] [phone] PCP - General 09/18/19 Project Management Manager Relationship Specialty Start Date End Date Nitish Agrawal, [address] [place] [address] PCP - General 09/18/19 Project Management Manager Relationship Specialty Start Date End Date Lashaun Bradley, DO [address] [place] [address] PCP - ACO Reach 03/29/23 Nitish Agrawal, DO [address] [place] [address] PCP - General Family Medicine 03/13/23 Elliot Elias MD [address] [facility] 2, [address] [place] [address] Referring Physician Cardiology 12/04/24 Nisha Farrar MD [address] [place] [address] [place] [address] Referring Physician Podiatry 12/04/24 Project Management Manager Relationship Specialty Start Date End Date Lashaun Bradley, DO [address] [place] [address] PCP - ACO Reach 03/29/23 Nitish Agrawal, [address] [place] [address] PCP - General Family Medicine 03/13/23 Elliot Elias MD [address], [address] [place] [address] Referring Physician Cardiology 12/04/24 Nisha Farrar MD [address] [place] [address] [place] [address] Referring Physician Podiatry 12/04/24 FOR RECORDS PERTAINING [...] BE BASED ON THE PRIMARY CLINICAL RECORDS. [employer] provides no warranty or guarantee of the accuracy or completeness of information in this document.
--- NOTE | 2025-05-15 10:04 | ECG_ITS ---
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
--- NOTE | 2025-05-15 10:12 | XR_ITS ---
The [address] [address] Patient Name: JANICE PANDYA MRN: [id number] date: 1955 Sex: M Assigned Patient Location: [facility] Current Patient Location: [facility] Accession/Order Number: [id number] Exam Date: 05/15/2025 10:46 Report Date: 05/15/2025 10:49 At the request of: NISHA FARRAR DPM Procedure: XR chest 2V PA AND LATERAL CHEST: CLINICAL HISTORY: Preoperative clearance COMPARISON: 01/11/2022 Median sternotomy wires are visualized. There is no focal parenchymal consolidation, effusion or pneumothorax. The cardiac, hilar and mediastinal silhouettes are within normal limits. There is no vascular congestion. The visualized bony thorax is intact. There is mild dextroscoliotic curvature and degenerative changes with suspected DISH. XR/XR chest 2V IMPRESSION: NO ACUTE CARDIOPULMONARY ABNORMALITY. Impression dictated by: Melani Owens M.D. 05/15/2025 10:49 AM Dictation Location: [place] [address] Electronically authenticated by: [id number] Y Date: 05/15/2025 10:49
--- NOTE | 2025-05-15 10:52 | PM.PRESUREVA ---
History of Present Illness History of Present Illness Chief complaint: diabetic Foot Ulcer left plantar foot metatarsal Narrative: Patient presents for presurgical testing. Please see HPI from Dr. Ivory dated April 22, 2025. Review of Systems ROS Narrative Please see ROS from Dr. Ivory dated April 22, 2025. [facility] Medical History (Updated 05/15/25 @ 10:50 by Christina Bragg NP) Hypertension ?I10 - Essential (primary) hypertension (ICD-10) Arthritis ?M19.90 - Unspecified osteoarthritis, unspecified site (ICD-10) Kidney stones ?N20.0 - Calculus of kidney (ICD-10) Dyspnea on exertion ?R06.09 - Other forms of dyspnea (ICD-10) Hypothyroidism ?E03.9 - Hypothyroidism, unspecified (ICD-10) Tachycardia ?R00.0 - Tachycardia, unspecified (ICD-10) CAD (coronary artery disease) ?I25.10 - Atherosclerotic heart disease of [place] coronary artery without angina pectoris (ICD-10) Ischemic cardiomyopathy ?I25.5 - Ischemic cardiomyopathy (ICD-10) Diabetes ?E11.9 - Type 2 diabetes mellitus without complications (ICD-10) Palpitations ?R00.2 - Palpitations (ICD-10) ASHD (arteriosclerotic heart disease) ?I25.10 - Atherosclerotic heart disease of [place] coronary artery without angina pectoris (ICD-10) Angina of effort ?I20.89 - Other forms of angina pectoris (ICD-10) Equinus contracture of left ankle ?M24.572 - Contracture, left ankle (ICD-10) Diabetic ulcer of left foot ?E11.621 - Type 2 diabetes mellitus with foot ulcer (ICD-10) ?L97.529 - Non-pressure chronic ulcer of other part of left foot with unspecified severity (ICD-10) Surgical History (Updated 05/15/25 @ 10:25 by Christina Bragg NP) History of foot surgery ?Z98.890 - Other specified postprocedural states (ICD-10) History of colonoscopy ?Z98.890 - Other specified postprocedural states (ICD-10) History of total knee arthroplasty ?Z96.659 - Presence of unspecified artificial knee joint (ICD-10) S/P arterial stent ?Z95.9 - Presence of cardiac and vascular implant and graft, unspecified (ICD-10) Hx of CABG ?Z95.1 - Presence of aortocoronary bypass graft (ICD-10) History of cardiac catheterization ?Z98.890 - Other specified postprocedural states (ICD-10) Family History (Updated 05/15/25 @ 10:25 by Christina Bragg NP) Other Family history of cancer Family history of diabetes mellitus Family history of heart disease Family history of hypertension Family history of stroke Social History (Updated 05/15/25 @ 10:19 by Christina Bragg NP) Within the past year, how often did you have a drink containing alcohol: monthly or less Smoking status: Never smoker Non-prescribed substance use: denies use Previous occupational history: Retired Highest level of school completed/degree received: high school graduate Meds Home Medications and Allergies Home Medications ?Medication ?Instructions ?Recorded ?Confirmed ?Type atorvastatin 20 mg tablet 20 mg PO DAILY 05/15/25 05/15/25 History carvedilol 6.25 mg tablet 6.25 mg PO Q12H 05/15/25 05/15/25 History dapagliflozin propanediol 5 mg 5 mg PO DAILY 05/15/25 05/15/25 History tablet (Farxiga) fenofibrate nanocrystallized 145 145 mg PO DAILY 05/15/25 05/15/25 History mg tablet isosorbide mononitrate 60 mg 60 mg PO DAILY 05/15/25 05/15/25 History tablet,extended release 24 hr levothyroxine 200 mcg tablet 200 mcg PO DAILY 05/15/25 05/15/25 History metformin 500 mg tablet,extended 500 mg PO BID 05/15/25 05/15/25 History release 24 hr nitroglycerin 0.4 mg sublingual 0.4 mg sublingual Q5M PRN chest 05/15/25 05/15/25 History tablet pain semaglutide 2 mg/dose (8 mg/3 mL) 2 mg subcut QWEEK 05/15/25 05/15/25 History subcutaneous pen injector (Ozempic) Allergies Allergy/AdvReac Type Severity Reaction Status Date / Time No Known Drug Allergies Allergy Verified 05/15/25 10:14 Exam Narrative Exam Narrative: Constitutional: Awake, alert, comfortable, pale, chronically ill-appearing, nontoxic, interactive, vital signs as charted Head: Normocephalic, atraumatic Neck: Supple, normal appearance, normal range of motion, no meningeal signs, no lymphadenopathy Respiratory: No respiratory distress, breath sounds clear Cardiovascular: Regular rate and rhythm, strong and regular heart tones Neuro: No gross neurological deficits Psychiatric: Oriented ?3, normal affect Assessment and Plan Assessment and Plan (1) Diabetic ulcer of left foot: (2) Equinus contracture of left ankle: Plan Left partial second metatarsal excision with delayed primary closure of ulceration and tendo Achilles lengthening scheduled with Dr. Ivory May 19, 2025.
[2025-05-15 11:00] LABS: Hematocrit 42.9 % (42.0-54.0); Hemoglobin 13.6 g/dL (14.0-18.0); Immature Granulocytes Abs Auto 0.03 10^3/uL (0.00-0.03); Immature Granulocytes Pct Auto 0.4 % (0.0-0.5); Lymphocytes Absolute Auto 1.8 10^3/uL (1.2-3.8); Mean Corpuscular HGB Conc 31.7 g/dL (29.9-35.2); Mean Corpuscular Hemoglobin 26.3 pg (25.9-34.0); Mean Corpuscular Volume 82.8 fL (80.0-94.0); Platelet Count 266 10^3/uL (150-450); Red Blood Count 5.18 10^6/uL (4.70-6.10); White Blood Count 7.1 10^3/uL (4.0-11.0)
[2025-05-15 11:18] LABS: Anion Gap 16.2; Blood Urea Nitrogen 25.0 mg/dL (7.0-18.0); Calcium 8.5 mg/dL (8.5-10.1); Carbon Dioxide 23.9 mmol/L (21.0-32.0); Chloride 105 mmol/L (98-107); Estimated GFR (African America >60 (>=60 mL/min/1.73m^2); Estimated GFR (Non-African Ame 54 (>=60 mL/min/1.73m^2); Glucose 231 mg/dL (74-106); INR 1.05; Partial Thromboplastin Time 32.2 sec (22.3-36.2); Potassium 4.1 mmol/L (3.5-5.1); Prothrombin Time 11.1 sec (9.0-11.6); Sodium 141 mmol/L (136-145)
== END 2025-05-15 09:52 | disposition home or self-care (01) ==
PROVIDERS: PCP Family Medicine; Visit Provider Podiatrist Foot & Ankle Surgery
DX: Z01.810 Encounter for preprocedural cardiovascular examination (principal); Z01.812 Encounter for preprocedural laboratory examination; Z01.818 Encounter for other preprocedural examination; E11.621 Type 2 diabetes mellitus with foot ulcer
CPT/HCPCS: 71046; 80048; 85025; 85610; 85730; 93005; G0463

== ENCOUNTER 2025-05-18 07:22 | Outpatient (OUT) | payer MEDICARE, OTHER, SELFPAY ==
--- NOTE | 2025-05-18 07:30 | CA_ITS ---
[facility] Test Date: 2025-05-18 Pat Name: JANICE PANDYA Department: Room: - Gender: Male Office Rn: : [id number] Requested By: Gisela Crandall Order Number: [id number] Reading MD: SUKHWINDER KARIMI Interpretive Statements Normal segmental pressures and waveforms in both lower extremities to the level of the ankle. Significant pressure drop and dampened pressure waveforms between the lower thigh and ankle bilaterally suggestive of below knee peripheral arterial disease. Mildly reduced ankle-brachial indices bilaterally; left worse than right. Abnormal toe brachial indices more pronounced on the right lower extremity. Given the significantly reduced TBI's, the ankle-brachial indices may be falsely elevated due to calcified vessels. Electronically Signed On 05-19-2025 12:57:12 EDT by SUKHWINDER KARIMI
--- OUTSIDE RECORDS SUMMARY | 2025-05-18 07:43 | XMS_ITS | CCD ---
Author Organization [facility] CliniSyoh Care Team Providers Care Inspector And Hand Packager Name Role Phone NITISH [phone] UNKNOWN Unavailable Unavailable Ayisire, Eseoghene N Unavailable [...] Primary Care Provider Lashaun Bradley DO Unavailable [phone] Nitish Agrawal DO Primary Care Provider Elliot Elias MD Unavailable [phone] Nisha Farrar MD Unavailable [phone] Nitish Agrawal DO Primary Care Provider Elliot Elias MD Unavailable [phone] MARTIN ELIAS Referring Unavailable NITISH AGRAWAL Primary [...] Inhibitors] Allergy to drug (finding) 3 Hypotension [facility] Repository (7 sources) Angiotensin-conv erting enzyme inhibitor agent Drug Intolerance 3 Unknown [facility] Medications Current Medications Medication Drug [...] Jacki cium Active Blood Glucose Monitoring Suppl (Stretchuch Verio Flex System) w/Device kit (20 sources) [...] ve hydrOXYzine hydrochloride 25 mg oral tablet (4 sources) Antihistamine Start: 01-29-2025 take 2 tablets [...] Active ammonium lactate 120 mg/ml topical lotion (5 sources) Start: 11-25-2024 ammonium lacta te (Lac-Hydrin) [...] (Ozempic, 2 MG/DOSE,) 8 MG/3ML solution pen-injector (15 sources) Start: 09-01-2024 inject 2 mg by [...] 09/01/2024 Active sertraline 50 mg oral tablet (4 sources) Serotonin Reuptake Inhibitor Start: 01-29-2025 End: [...] Onset: 03-28-2022 Chronic Congestive heart failure; nonhypertensive (19 sources) Congestive heart failure stage C; Translations: [Congestive heart failure, unspecified] Onset: 08-31-2023 08-31-2023 Chronic Coronary atherosclerosis and other heart disease (20 sources) Multi vessel coronary artery disease; Translations: [Coronary atherosclerosis of unspecified type of vessel, [place] or graft] Onset: 03-29-2016 01-29-2024 Chronic Diabetes [...] toe(s)] 08-04-2024 Episodic Other nervous system disorders (14 sources) Difficulty walking; Translations: [Difficulty in walking, [...] RT FOOT] Onset: 07-13-2022 Episodic Administrative/social admission (14 sources) Reduced mobility; Translations: [Other reduced mobility] Onset: 03-29-2016 01-28-2025 Episodic Cardiac dysrhythmias (20 sources) Palpitations; Translations: [Tachycardia] Onset: 01-28-2025 01-28-2025 Episodic Coronary atherosclerosis and other heart disease (4 sources) Presence of aortocoronary bypass graft; Translations: [Presence of aortocoronary bypass graft] Onset: 08-31-2023 Episodic Deficiency and other anemia (20 sources) Anemia; Translations: [Anemia, unspecified] Onset: 03-29-2016 08-06-2023 Episodic Mood disorders (10 sources) Mood disorders Onset: 12-04-2024 12-04-2024 Mycoses (5 sources) Tinea unguium; Translations: [TINEA UNGUIUM] Onset: 10-24-2022 Episodic Other aftercare (1 source) MCFP (current) use of aspirin; Translations: [PENITENTIARY CURRENT USE OF ASPIRIN] Onset: 03-28-2022 Episodic Other aftercare (1 source) Other residential (current) drug therapy; Translations: [OTH INSTRUMENTATION DESIGNER CURRENT DRUG THERAPY] Onset: 03-28-2022 Episodic Other aftercare (2 sources) [facility]FP (current) use of insulin; Translations: [oil heaterman (current) use of insulin (Multi)] Onset: 08-31-2023 [...] Onset: 11-28-2022 Episodic Other connective tissue disease (14 sources) Muscle weakness; Translations: [Muscle weakness (generalized)] [...] Episodic Other nutritional; endocrine; and metabolic disorders (20 sources) Overweight in adulthood with body mass [...] 10-10-2021 Resolved: 10-10-2021 Episodic Residual codes; unclassified (16 sources) Never smoked tobacco; Translations: [Other specified [...] Name Value Interpretation Reference Range Facility XR CHEST 2Von 05-15-2025 [place] [address] XRay Report Signed Patient: JANICE FORD Jr. MR#: [id number] : 1955 Acct:[id number] Age/Sex: 70 / M ADM Date: 05/15/25 Loc: [facility] Attending Dr: Nisha Farrar D.P.M. Ordering Physician: Nisha Farrar D.P.M. Date of Service: 05/15/25 Procedure(s): XR chest 2V Accession Number(s): [id number] cc: NITISH AGRAWAL ; Nisha Farrar D.P.M. [address] [address] Patient Name: JANICE FORD MRN: [id number] date: 1955 Sex: M Assigned Patient Location: [facility] Current Patient Location: [facility] Accession/Order Number: [id number] Exam Date: 05/15/2025 10:46 Report Date: 05/15/2025 10:49 At the request of: NISHA FARRAR DPM Procedure: XR chest 2V PA AND LATERAL CHEST: CLINICAL HISTORY: Preoperative clearance COMPARISON: 01/11/2022 Median sternotomy wires are visualized. There is no focal parenchymal consolidation, effusion or pneumothorax. The cardiac, hilar and mediastinal silhouettes are within normal limits. There is no vascular congestion. The visualized bony thorax is intact. There is mild dextroscoliotic curvature and degenerative changes with suspected DISH. XR/XR chest 2V IMPRESSION: NO ACUTE CARDIOPULMONARY ABNORMALITY. Impression dictated by: Melani Owens M.D. 05/15/2025 10:49 AM Dictation Location: [place] [address] Electronically authenticated by: [id number] Y Date: 05/15/2025 10:49 Dictated By: Melani Owens M.D. Signed By: 05/15/25 1051 DD/ 1049 TD/TT: Tile Setter: [facility] Radiology, Radiologist, MD - 05/15/2025 [place] [address] XRay Report Signed Patient: JANICE FORD Jr. MR#: [id number] : 1955 Acct:[id number] Age/Sex: 70 / M ADM Date: 05/15/25 Loc: [facility] Attending Dr: Nisha Farrar D.P.M. Ordering Physician: Nisha Farrar D.P.M. Date of Service: 05/15/25 Procedure(s): XR chest 2V Accession Number(s): [id number] cc: NITISH AGRAWAL ; Nisha Farrar D.P.M. The [place] [id number] Patient Name: JANICE FORD MRN: [facility]:[id number] date: 1955 Sex: M Assigned Patient Location: [facility] Current Patient Location: [facility] Accession/Order Number: [id number] Exam Date: 05/15/2025 10:46 Report Date: 05/15/2025 10:49 At the request of: NISHA FARRAR DPJudie Procedure: XR chest 2V PA AND LATERAL CHEST: CLINICAL HISTORY: Preoperative clearance COMPARISON: 01/11/2022 Median sternotomy wires are visualized. There is no focal parenchymal consolidation, effusion or pneumothorax. The cardiac, hilar and mediastinal silhouettes are within normal limits. There is no vascular congestion. The visualized bony thorax is intact. There is mild dextroscoliotic curvature and degenerative changes with suspected DISH. XR/XR chest 2V IMPRESSION: NO ACUTE CARDIOPULMONARY ABNORMALITY. Impression dictated by: Melani Owens M.D. 05/15/2025 10:49 AM Dictation Location: [place] [address] Electronically authenticated by: [id number] Y Date: 05/15/2025 10:49 Dictated By: Melani Owens M.D. Signed By: 05/15/25 1051 DD/ 1049 TD/TT: Tile Setter: [facility] [employer] Radiology Study observation (narrative) [facility] XR CHEST 2VOrdered By: [facility] on 05-15-2025 [facility] [employer] Work Phone: XR FOOT LT MIN 3Von 04-22-20 [place] [address] XRay Report Signed Patient: JANICE FORD MR#: [id number] : 1955 Acct:[id number] Age/Sex: 70 / M ADM Date: 04/22/25 Loc: [facility] Attending Dr: Nisha Farrar D.P.M. Ordering Physician: Nisha Farrar D.P.M. Date of Service: 04/22/25 Procedure(s): XR foot LT min 3V Accession Number(s): [id number] cc: NITISH AGRAWAL ; Nisha Farrar D.P.M. The [place] [id number] Patient Name: JANICE FORD MRN: [id number] date: 1955 Sex: M Assigned Patient Location: [facility] Current Patient Location: [facility] Accession/Order Number: [id number] Exam Date: 04/22/2025 15:23 Report Date: 04/22/2025 [...] Jr., D.O. 04/22/2025 3:25 PM Dictation Location: [place] [address] Electronically authenticated by: [id number] Y Date: 04/22/2025 15:25 Dictated By: Theron Guerra M.D. Signed By: 04/22/25 1527 DD/ 1525 TD/TT: Tile Setter: [facility] Radiology, Radiologist, MD - 04/22/2025 [place] [address] XRay Report Signed Patient: JANICE FORD MR#: [id number] : 1955 Acct:[id number] Age/Sex: 70 / M ADM Date: 04/22/25 Loc: [facility] Attending Dr: Nisha Farrar D.P.M. Ordering Physician: Nisha Farrar D.P.M. Date of Service: 04/22/25 Procedure(s): XR foot LT min 3V Accession Number(s): [id number] cc: NITISH AGRAWAL ; Nisha Farrar D.P.M. The [address] [address] Patient Name: JANICE FORD MRN: [facility]:[id number] date: 1955 Sex: M Assigned Patient Location: [facility] Current Patient Location: [facility] Accession/Order Number: [id number] Exam Date: 04/22/2025 15:23 Report Date: 04/22/2025 [...] Jr., D.O. 04/22/2025 3:25 PM Dictation Location: [place] [address] Electronically authenticated by: [id number] Y Date: 04/22/2025 15:25 Dictated By: Theron Guerra M.D. Signed By: 04/22/25 1527 DD/ 1525 TD/TT: Tile Setter: [facility] [employer] Radiology Study observation (narrative) [facility] [employer] XR FOOT LT MIN 3VOrdered By: Radiologist Radiology on 04-22-2025 [facility] Centrescar e Work Phone: nm Heart Perfusion W [...] Erika Osborne 02/23/2025 6:21 PM Dictation workstation: [id number] Interpreted By: Erika Osborne, and Maine Lopez STUDY: MYOCARDIAL PERFUSION STRESS TEST WITH LEXISCAN Performing facility: [facility], [address] [place] [address], [address], [place] [address] [facility] Provider: Ratna Elias DO, [facility] PCP: Dr. Vineet Agrawal Supervising provider: Yamilka Rebollar MD, [facility] INDICATION: Signs/Symptoms:h/o pci, angina 2-3, palps, tachy. ,I25.10 Atherosclerotic heart disease of [place] coronary artery without angina pectoris,Z95.1 Presence of [...] 1992. COMPARISON: Previous nuclear testing completed at [facility]. ACCESSION NUMBER(S): [id number] ORDERING CLINICIAN: MARTIN ELIAS TECHNIQUE: ONE DAY [...] TEST WITH LEXISCAN Performing facility: [facility], [address] [place] [address], [address], [place] [address] [facility] Provider: Ratna Elias DO, FACC PCP: Dr. Vineet Agrawal Supervising provider: Yamilka Rebollar MD, FACC INDICATION: Signs/Symptoms:h/o pci, angina 2-3, palps, tachy. ,I25.10 Atherosclerotic heart disease of [place] coronary artery without angina pectoris,Z95.1 Presence of [...] 1992. COMPARISON: Previous nuclear testing completed at [facility]. ACCESSION NUMBER(S): [id number] ORDERING CLINICIAN: MARTIN ELIAS TECHNIQUE: ONE DAY [...] Erika Osborne 02/23/2025 6:21 PM Dictation workstation: [id number] [facility] Work Phone: Radiology Study observation (narrative) [facility] Work Phone: NM Heart Perfusion W stress and W radionuclide IVOrdered By: Erika Osborne on 02-23-2025 [facility] Work Phone: NUCLEAR STRESS TESTon 2024 NUCLEAR STRESS TEST Interpreted By: Erika Osborne and Maine Lopez STUDY: MYOCARDIAL PERFUSION STRESS TEST WITH LEXISCAN Performing facility: [facility], [address], [address], [place] [address] [facility] Provider: Ratna Elias DO, FACC PCP: Dr. Vineet Agrawal Supervising provider: Yamilka Rebollar MD, FACC INDICATION: Signs/Symptoms:h/o pci, angina 2-3, palps, tachy. ,I25.10 Atherosclerotic heart disease of [place] coronary artery without angina pectoris,Z95.1 Presence of [...] 1992. COMPARISON: Previous nuclear testing completed at [facility]. ACCESSION NUMBER(S): [id number] ORDERING CLINICIAN: MARTIN ELIAS TECHNIQUE: ONE DAY [...] Erika Osborne 02/23/2025 6:21 PM Dictation workstation: [id number] [facility] NUCLEAR STRESS TEST EXERCISE (CARD)on 02-23-2025 Source Facility: [facility] Interpreted By: Erika Osborne, and Maine Lopez STUDY: MYOCARDIAL PERFUSION STRESS TEST WITH LEXISCAN Performing facility: [facility], [address], [address], [place] [address] [facility] Provider: Ratna Elias DO, FACC PCP: Dr. Vineet Agrawal Supervising provider: Yamilka Rebollar MD, FACC INDICATION: Signs/Symptoms:h/o pci, angina 2-3, palps, tachy. ,I25.10 Atherosclerotic heart disease of [place] coronary artery without angina pectoris,Z95.1 Presence of [...] 1992. COMPARISON: Previous nuclear testing completed at [facility]. ACCESSION NUMBER(S): [id number] ORDERING CLINICIAN: MARTIN ELIAS TECHNIQUE: ONE DAY [...] Erika Osborne 02/23/2025 6:21 PM Dictation workstation: [id number] Radiology, Radiologist, - 02/24/2025 Source Facility: [facility] Interpreted By: Erika Osborne and Giannuzzi Michael STUDY: MYOCARDIAL PERFUSION STRESS TEST WITH LEXISCAN Performing facility: [facility], [address] [place] [address], [address], [place] [id number] [facility] Provider: Ratna Elias DO, FACC PCP: Dr. Vineet Agrawal Supervising provider: Yamilka Rebollar MD, FACC INDICATION: Signs/Symptoms:h/o pci, angina 2-3, palps, tachy. ,I25.10 Atherosclerotic heart disease of [place] coronary artery without angina pectoris,Z95.1 Presence of [...] 1992. COMPARISON: Previous nuclear testing completed at [facility]. ACCESSION NUMBER(S): [id number] ORDERING CLINICIAN: MARTIN ELIAS TECHNIQUE: ONE DAY [...] Erika Osborne 02/23/2025 6:21 PM Dictation workstation: [id number] [facility] Radiology Study observation (narrative) [facility] NUCLEAR STRESS TEST EXERCISE (CARD)Ordered By: Radiologist Radiology on 02-23-2025 [employer] Work Phone: ALL BASIC METABOLIC PANELon 01-28-2025 Anion gap [Moles/Vol] 13.7 mmol/L [facility] Calcium [Mass/Vol] 8.8 mg/dL 8.5 - 10. 1 mg/dL [facility] Chloride [Moles/Vol] 104 mmol/L 98 - 10 7 mmol/L [facility] CO2 [Moles/Vol] 25.7 mmol/L 21.0 - 32.0 mmol/L [facility] Creatinine [Mass/Vol] 1.39 mg/dL High 0.70 - 1.30 mg/dL [facility] GFR/1.73 sq M.predicted CKD-EPI (S/P/Bld) [Vol rate/Area] >60 >=60 mL/min/1.73m 2 [facility] Glucose [Mass/Vol] 150 mg/dL High 74 - 106 mg/dL [facility] Potassium [Moles/Vol] 4.4 mmol/L 3.5 - 5.1 mmol/L [facility] Sodium [Moles/Vol] 139 mmol/L 136 - 145 mmol/L [facility] TBH EGFR-NON AF [place] 51 Low >=60 mL/min/1.73m 2 [facility] Urea nitrogen [Mass/Vol] 25 mg/dL High 7.0 - 18.0 mg/dL [facility] Urea nitrogen/Creatinine [Mass ratio] 18 mg/mg [facility] ALL PRO BNPon 01-28-2025 NT PRO B TYPE NATRIURETIC PEPT 1185 pg/mL High NINF - 900.0 pg/mL [facility] No Panel Informationon 01-28 Interpretation and review of laboratory results Abnormal [facility] [employer] [facility] HbA1c (Bld) [Mass fraction]o n 12-01-2024 Interpretation and review of laboratory results [facility]ology and Cell countson 12-01-2024 HbA1c (Bld) [Mass fraction] 7.7 % [facility] [employer] HbA1c (Bld) [Mass fraction]o n 09-01-2024 Interpretation and review of laboratory results Abnormal [facility] - Hematology and Cell countson 09-01-2024 HbA1c (Bld) [Mass fraction] 8.6 % [facility] [employer] No Panel Informationon 06-27 [employer] Carcinoembryonic Ag [Mass/Vo l]on 06-20-2024 Performing Organization Information Site ID: QPT Name: [employer] [facility] Address: [address] [place] [address], [address] [place] [id number] Director: Edil Bedolla MD [facility] [employer] Laboratory - Chemistry and C hemistry - challengeon 06-20-2024 Calcitonin [Mass/Vol] 6 pg/mL NINF - 10 pg/mL [facility] [employer] Comment on above: This test was performed using the Siemens Chemiluminescent method. Values obtained with different assay methods cannot be used interchangeably. Calcitonin levels, regardless of value, should not be interpreted as absolute evidence of the presence or absence of the disease. Carcinoembryonic Ag [Mass/Vol] ng/mL See Note: ng/mL [facility] [employer] Comment on above: Reference Range: Non-Smoker: <2.5 Smoker: <5.0 This test was performed using the Siemens chemiluminescent method. Values obtained from different assay methods cannot be used interchangeably. CEA levels, regardless of value, should not be interpreted as absolute evidence of the presence or absence of disease. No Panel Informationon 06-20 Performing Organization Information Site ID: AMD Name: [employer] [place] Address: [address] [place] [address] [place] [address] Director: Huan Tate M.D.,PhD [facility] US THYROIDon 06-16-2024 US THYROID EXAM: Thyroid [...] report is generated using voice recognition reporting ([employer]). On occasion PowerScribe erroneously drops words from [...] report is generated using voice recognition reporting ([employer]). On occasion PowerScribe erroneously drops words from [...] report is generated using voice recognition reporting ([employer]). On occasion Power[employer] erroneously drops words from the report or replaces the spoken word with similar sounding words. Please call with any questions/concerns regarding this report.* Dictated and transcribed 06/16/2024/[place] This report has been electronically signed and approved by the interpreting radiologist. Electronically Signed Martin Christianson II, M.D. 2024-06-16 16:43:23 [facility] Radiology Study observation (narrative) [facility] Thyroid glandOrdered By: Martin Christianson on 06-16-2024 [facility] [employer] Work Phone: Office Visit (Cardiology)on 01-23-2023 [...] are negat (more content not included)... Normal [facility] Tobacco Screening.on 023 Adult depression screening assessment No [facility] [employer] 250 DO Work Phone: Fall risk assessment a) No falls within the last year [facility] [employer] 250 DO Work Phone: Tobacco use status [facility] b) No [facility] [employer] 250 DO Work Phone: ACID FAST SMEAR AND CXon Acid Fast Culture Negative Normal [facility] Comment on above: Result Comment: No a monse fast bacilli isolated after 6 weeks. Performed By: #### A FB #### [facility] [address] [place] [address] [address] Balta Gorman Acid Fast Smear Negative Normal [facility] Comment on above: Performed By: #### A FB #### [facility] [address] [place] [address] [address] Balta Gorman [employer] Specimen Processing Tissue Grinding Normal [facility] Comment on above: Performed By: #### A FB #### [facility] [address] [place] [address] [address] Balta Gorman FUNGAL CULTUREon 07-11-2022 Fungus (Mycology) Culture Final report Normal [facility] Comment on above: Performed By: #### C XFUN #### [facility] [address] [place] [address] Dr. Balta Gorman Fungus Stain Final report Normal [facility] Comment on above: Performed By: #### C XFUN #### [facility] [address] [place] [address] Dr. Balta Gorman Result 1 Comment Normal [facility] Comment on above: Result Comment: FRANCISCA/ Calcofluor preparation: no fungus observed. Performed By: #### C XFUN #### [facility] [address] [place] [address] Dr. Balta Gorman Result Comment: No y east or mold isolated after 4 weeks. WOUND CULTUREon 06-15-2022 Bacteria identified Aer cx Nom (Unsp spec) Final report Normal [facility] Comment on above: Performed By: #### A FB #### [facility] [address] [place] [address] Dr. Balta Gorman Result 1 Comment Normal [facility] Comment on above: Result Comment: No g rowth in 36 - 48 hours. Performed By: #### A FB #### [facility] [address] [place] [address] Dr. Balta Gorman GRAM STAINon 06-12-2022 DIPHTHEROIDS Normal [facility] Comment on above: Performed By: #### C VDTBH #### [facility] [address] [place] [address] Dr. Balta Gorman EPITHELIALS Normal [facility] Comment on above: Performed By: #### C VDTBH #### [facility] [address] [place] [address] Dr. Balta Gorman FUNGAL ELEMENTS Normal [facility] Comment on above: Performed By: #### C VDTBH #### [facility] [address] [place] [address] Dr. Balta Gorman GRAM NEG BACILLI Normal [facility] Comment on above: Performed By: #### C VDTBH #### [facility] [address] [place] [address] [address] Balta Gorman GRAM NEG DIPPLOCOCCI Normal [facility] Comment on above: Performed By: #### C VDTBH #### [facility] [address] [place] [address] [address] Balta Gorman GRAM POS BACILLI Normal [facility] Comment on above: Performed By: #### C VDTBH #### [facility] [address] [place] [address] [address] Balta Gorman GRAM POSITIVE COCCI Normal [facility] Comment on above: Performed By: #### C VDTBH #### [facility] [address] [place] [address] [address] Balta Gorman GRAM STAIN SOURCE Rt 4th Toe Bone Normal [facility] Comment on above: Performed By: #### C VDTBH #### [facility] [address] [place] [address] Dr. Balta Gorman GS_DIPTH Normal [facility] Comment on above: Performed By: #### C VDTBH #### [facility] [address] [place] [address] [address] Balta Gorman WBC NONE SEEN Normal [facility] Comment on above: Performed By: #### C VDTBH #### [facility] [address] [place] [address] [address] Balta Gorman POINT OF CARE GLUCOSEon Glucose [Mass/Vol] 168 mg/dL Critically high 74-106 [facility] Comment on above: Performed By: #### P OCGLUC ####[facility] [id number] [place] [address]Dr. Balta Gorman Glucose [Mass/Vol] 161 mg/dL Critically high 74-106 [facility] Comment on above: Performed By: #### P OCGLUC #### [facility] [address] [place] [address] Dr. Balat Gorman Covid-19 PCR (CVDTB)on SARS-CoV-2 (COVID-19) RNA DERICK+probe Ql (Unsp spec) Not detected Normal NOT DETECTED [facility] Comment on above: Result Comment: This test is not yet approved or cleared by the [place] FDA. When there are no FDA-approved or cleared tests available, and other criteria are met, FDA can make tests available under an emergency access mechanism called an Emergency Use Authorization (EUA). The EUA for this test is supported by the [place] of Health and Human Service's (HHS's) declaration [...] with SARS-CoV-2. Performed By: #### C VDTBH ####[facility] [id number] [place] [address]Dr. Balta Gorman PROF CHEM 8 (BAS METB)on Anion gap [Moles/Vol] 13.3 mmol/L Normal [facility] Comment on above: Performed By: #### C VDTBH #### [facility] [address] [place] [address] Dr. Balta Gorman Calcium [Mass/Vol] 8.7 mg/dL Normal 8.5-10.1 [facility] Comment on above: Performed By: #### C VDTBH #### [facility] [address] [place] [address] [address] Balta Gorman Chloride [Moles/Vol] 106 mmol/L Normal 98-107 [facility] Comment on above: Performed By: #### C VDTBH #### [facility] [address] [place] [address] Dr. Balta Gorman CO2 [Moles/Vol] 23.9 mmol/L Normal 21.0-32.0 [facility] Comment on above: Performed By: #### C VDTBH #### [facility] [address] [address] [address] Balta Gorman Creatinine [Mass/Vol] 1.24 mg/dL Normal 0.70-1.30 [facility] Comment on above: Performed By: #### C VDTBH #### [facility] [address] [address] [address] Balta Gorman EGFR-AF PAPUA NEW GUINEAN >60 Normal >=60 [facility] Comment on above: Performed By: #### C VDTBH #### [facility] [address] [address] [address] Balta Gorman EGFR-NON AF PAPUA NEW GUINEAN 58 mL/min/1.73m2 Critically low >=60 [facility] Comment on above: Performed By: #### C VDTBH #### [facility] [address] [place] [address] Dr. Balta Gorman Glucose [Mass/Vol] 158 mg/dL Critically high 74-106 T [facility] Comment on above: Performed By: #### C VDTBH #### [facility] [address] [place] [address] Dr. Balta Gorman Potassium [Moles/Vol] 4.2 mmol/L Normal 3.5-5.1 [facility] Comment on above: Performed By: #### C VDTBH #### [facility] [address] [place] [address] Dr. Balta Gorman Sodium [Moles/Vol] 139 mmol/L Normal 136-145 [facility] Comment on above: Performed By: #### C VDTBH #### [facility] [address] [place] [address] Dr. Balta Gorman Urea nitrogen [Mass/Vol] 19.0 mg/dL Critically high 7.0-18.0 [facility] Comment on above: Performed By: #### C VDTBH #### [facility] [address] [place] [address] Dr. Balta Gorman Urea nitrogen/Creatinine [Mass ratio] 15.3 mg/mg Normal [facility] Comment on above: Performed By: #### C VDTBH #### [facility] [address] [address] [address] Balta Gorman ACID FAST SMEAR AND CXon Acid Fast Culture Negative Normal [facility] Comment on above: Result Comment: No a monse fast bacilli isolated after 6 weeks. Performed By: #### A FB ####[facility] [address] [place], [place] [address]EoDr. Balta Gorman Acid Fast Smear Negative Normal [facility] Comment on above: Performed By: #### A FB ####[facility] [address] [id number]. Balta Gorman AFB Specimen Processing Tissue Grinding Normal [facility] Comment on above: Performed By: #### A FB ####[facility] [address] [address]Dr. Balta Gorman FUNGAL CULTUREon 05-05-2022 Fungus (Mycology) Culture Final report Normal [facility] Comment on above: Performed By: #### A FB #### [facility] [address] [address] [address] Balta Gorman Fungus Stain Final report Normal [facility] Comment on above: Performed By: #### A FB #### [facility] [address] [place] [address] Dr. Balta Gorman Result 1 Comment Normal [facility] Comment on above: Result Comment: FRANCISCA/ Calcofluor preparation: no fungus observed. Performed By: #### A FB #### [facility] [address] [place] [address] Dr. Balta Gorman Result Comment: No y [...] that was done back in 1992 at [facility] in [place]. 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 This was redilated and stented. He had a recent episode at cardiac rehab in [place] and because of this was seen in [...] Recorded: 01May2022 09:28AM Heart Rate80, L Radial Qtujpqjb07, LUE, Sitting Ossycqvon60, LUE, Sitting Height6 ft 1 in Tfhgcp162 lb BMI Uuchnkwpyo54.42 kg/m2 BSA Calculated2.25 Tobacco Useb) No Falls Screening (Age 18+)a) No falls within the last year Signatures Electronically signed by : Helga Flores DO; May 01 2022 11:18AM EST (Author) Normal [facility] Tobacco Screening.on 022 Fall risk assessment a) No falls within the last year [facility] Adalid 250 DO Work Phone: Tobacco use status CP b) No -[facility] Rashad-Tano 250 DO Work Phone: XR [...] JOSE MARTIN WHITAKER Date: 2022-04-14 10:08 Normal [facility] TISSUE CULTUREon 04-07-2022 Anaerobic Culture, Extended Incubation Final report Normal [facility] Comment on above: Performed By: #### A FB #### [facility] [address] [place] [address] Dr. Balta Gorman Result 1 Comment Normal [facility] Comment on above: Result Comment: No g rowth in 56 - 72 hours. Performed By: #### A FB #### [facility] [address] [address] [address] Balta Gorman Result Comment: No g rowth after 14 days. Tissue Culture Final report Normal [facility] Comment on above: Performed By: #### A FB #### [facility] [address] [address] [address] Balta Gorman WOUND CULTUREon 03-26-2022 Antimicrobial Susceptibility Comment Normal [facility] Comment on above: Result Comment: S = Susceptible; I = Intermediate; R = Resistant P = Positive; N = Negative MICS are expressed in micrograms per mL Antibiotic RSLT#1 RSLT#2 RSLT#3 RSLT#4 Ciprofloxacin R Clindamycin S Erythromycin S Gentamicin S Levofloxacin R Linezolid S Oxacillin R Penicillin R Rifampin S Tetracycline S Trimethoprim/Sulfa R Vancomycin S Performed By: #### A FB #### [facility] [address] [place] [address] Dr. Balta Gorman Bacteria identified Aer cx Nom (Unsp spec) Final report Abnormal [facility] Comment on above: Performed By: #### A FB #### [facility] [address] [place] [address] Dr. Balta Gorman Result 1 Comment Abnormal [facility] Comment on above: Result Comment: Meth icillin - resistant Staphylococcus aureus Based on resistance to oxacillin this isolate would be resistant to all currently available beta-lactam antimicrobial agents, with the exception of the newer cephalosporins with anti-MRSA activity, such as Ceftaroline Heavy growth Performed By: #### A FB #### [facility] [address] [place] [address] Dr. Balta Gorman CBC AUTO DIFFon 03-24-2022 BASO # 0.0 103/ul Normal 0.0-0.1 [facility] Comment on above: Performed By: #### C BC ####[facility] [address] [place], [place] [address]Dr. Balta Gorman Basophils/100 WBC (Bld) 0.5 % Normal 0.2-2.0 [facility] Comment on above: Performed By: #### C BC ####[facility] [address] [address]Dr. Balta Gorman EO # 0.1 103/ul Normal 0.0-0.7 [facility] Comment on above: Performed By: #### C BC ####[facility] [address] [address]DrPaola Gorman Eosinophils/100 WBC (Bld) 1.1 % Normal 0.9-7.0 [facility] Comment on above: Performed By: #### C BC ####[facility] [address] [address]Dr. Balta Gorman Erythrocyte distribution width (RBC) [Ratio] 16.9 % Critically high 11.0-15.0 [facility] Comment on above: Performed By: #### C BC ####[facility] [address] [address]Dr. Balta Gorman Hematocrit (Bld) [Volume fraction] 34.5 % Critically low 42.0-54.0 [facility] Comment on above: Performed By: #### C BC ####[facility] [address] [address]Dr. Balta Gorman Hemoglobin (Bld) [Mass/Vol] 10.2 g/dL Critically low 14.0-18.0 [facility] Comment on above: Performed By: #### C BC ####[facility] [address] [place], [place] [address]Dr. Balta Gorman IG # 0.03 10e3/ul Normal 0.00-0.03 [facility] Comment on above: Performed By: #### C BC ####[facility] [address] [place], [place] [address]Dr. Balta Gorman IG % 0.4 % Normal 0.0-0.5 [facility] Comment on above: Performed By: #### C BC ####[facility] [address] [place], [place] [address]Dr. Balta Gorman LYMPH # 1.6 103/ul Normal 1.2-3.8 [facility] Comment on above: Performed By: #### C BC ####[facility] [address] [place], [place] [address]Dr. Balta Gorman Lymphocytes/100 WBC (Bld) 18.4 % Critically low 20.5-60.0 [facility] Comment on above: Performed By: #### C BC ####[facility] [address] [place], [place] [address]Dr. Balta Gorman MANUAL DIFF REQ NO Normal [facility] Comment on above: Performed By: #### C BC ####[facility] [address] [id number]. Balta Gorman MCH (RBC) [Entitic mass] 22.7 pg Critically low 25.9-34.0 [facility] Comment on above: Performed By: #### C BC ####[facility] [address] [id number]. Balta Gorman MCHC (RBC) [Mass/Vol] 29.6 g/dL Critically low 29.9-35.2 [facility] Comment on above: Performed By: #### C BC ####[facility] [address] [id number]. Balta Gorman MCV (RBC) [Entitic vol] 76.7 fL Critically low 80.0-94.0 [facility] Comment on above: Performed By: #### C BC ####[facility] [address] [place], [place] [address]Dr. Aurabenja Sherif MONO # 0.9 103/ul Critically high 0.3-0.8 [facility] Comment on above: Performed By: #### C BC ####[facility] [address] [place], [place] [address]Dr. Aurabenja Gorman Monocytes/100 WBC (Bld) 11.1 % Normal 1.7-12.0 [facility] Comment on above: Performed By: #### C BC ####[facility] [address] [place], [place] [address]Dr. Balta Gorman NEUT # 5.8 103/ul Normal 1.4-6.5 [facility] Comment on above: Performed By: #### C BC ####[facility] [address] [place], [place] [id number]. Aurabenja Gorman Neutrophils/100 WBC (Bld) 68.5 % Normal 43.0-75.0 [facility] Comment on above: Performed By: #### C BC ####[facility] [address] [place], [place] [address]Dr. Aurabenja Gorman Platelet mean volume (Bld) [Entitic vol] 10.2 fL Normal 9.5-13.5 [facility] Comment on above: Performed By: #### C BC ####[facility] [address] [place], [place] [address]Bn. Balta Gorman PLT 285 103/ul Normal 150-450 [facility] Comment on above: Performed By: #### C BC ####[facility] [address], [place] [address]Dt. Balta Gorman RBC 4.50 106/ul Critically low 4.70-6.10 [facility] Comment on above: Performed By: #### C BC ####[facility] [address] [id number]. Balta Gorman WBC 8.5 103/ul Normal 4.0-11.0 [facility] Comment on above: Performed By: #### C BC ####[facility] [address] [id number]. Balta Gorman POINT OF CARE GLUCOSEon 03-06 Glucose [Mass/Vol] 209 mg/dL Critically high 74-106 [facility] Comment on above: Performed By: #### P OCGLUC #### [facility] [address] [place], [place] [address] Dr. Balta Gorman PROF CHEM 8 (BAS METB)on Anion gap [Moles/Vol] 13.7 mmol/L Normal [facility] Comment on above: Performed By: #### B MP ####[facility] [address] [id number]. Balta Gorman Calcium [Mass/Vol] 8.1 mg/dL Critically low 8.5-10.1 [facility] Comment on above: Performed By: #### B MP ####[facility] [address] [address]DrPaola Gorman Chloride [Moles/Vol] 105 mmol/L Normal 98-107 [facility] Comment on above: Performed By: #### B MP ####[facility] [address] [id number] Gorman CO2 [Moles/Vol] 23.0 mmol/L Normal 21.0-32.0 [facility] Comment on above: Performed By: #### B MP ####[facility] [address] [address]Dr. Balta Gorman Creatinine [Mass/Vol] 1.15 mg/dL Normal 0.70-1.30 [facility] Comment on above: Performed By: #### B MP ####[facility] [address] [address]Dr. Balta Gorman EGFR-AF PAPUA NEW GUINEAN >60 Normal >=60 [facility] Comment on above: Performed By: #### B MP ####[facility] [address] [address]Dr. Balta Gorman EGFR-NON AF PAPUA NEW GUINEAN >60 Normal >=60 [facility] Comment on above: Performed By: #### B MP ####[facility] [address] [place], [place] [address]Dr. Balta Sherif Glucose [Mass/Vol] 214 mg/dL Critically high 74-106 [facility] Comment on above: Performed By: #### B MP ####[facility] [address] [place], [place] [address]Dr. Balta Gorman Potassium [Moles/Vol] 3.7 mmol/L Normal 3.5-5.1 [facility] Comment on above: Performed By: #### B MP ####[facility] [address] [place], [place] [address]Dr. Aurabenja Sherif Sodium [Moles/Vol] 138 mmol/L Normal 136-145 [facility] Comment on above: Performed By: #### B MP ####[facility] [address] [address]Dr. Aurabenja Sherif Urea nitrogen [Mass/Vol] 21.0 mg/dL Critically high 7.0-18.0 [facility] Comment on above: Performed By: #### B MP ####[facility] [address] [address]Dr. Balta Gorman Urea nitrogen/Creatinine [Mass ratio] 18.3 mg/mg Normal [facility] Comment on above: Performed By: #### B MP ####[facility] [address] [address]Dr. Balta Gorman CBC AUTO DIFFon 03-23-2022 BASO # 0.1 103/ul Normal 0.0-0.1 [facility] Comment on above: Performed By: #### C VDTBH #### [facility] [address] [address] [address] Balta Gorman Basophils/100 WBC (Bld) 1.0 % Normal 0.2-2.0 [facility] Comment on above: Performed By: #### C VDTBH #### [facility] [address] [place] [address] Dr. Balta Gorman EO # 0.3 103/ul Normal 0.0-0.7 [facility] Comment on above: Performed By: #### C VDTBH #### [facility] [address] [place] [address] Dr. Balta Gorman Eosinophils/100 WBC (Bld) 4.5 % Normal 0.9-7.0 [facility] Comment on above: Performed By: #### C VDTBH #### [facility] [address] [place] [address] Dr. Balta Gorman Erythrocyte distribution width (RBC) [Ratio] 17.0 % Critically high 11.0-15.0 [facility] Comment on above: Performed By: #### C VDTBH #### [facility] [address] [place] [address] Dr. Balta Gorman Hematocrit (Bld) [Volume fraction] 35.7 % Critically low 42.0-54.0 [facility] Comment on above: Performed By: #### C VDTBH #### [facility] [address] [place] [address] Dr. Balta Gorman Hemoglobin (Bld) [Mass/Vol] 10.6 g/dL Critically low 14.0-18.0 [facility] Comment on above: Performed By: #### C VDTBH #### [facility] [address] [place] [address] Dr. Balta Gorman IG # 0.03 10e3/ul Normal 0.00-0.03 [facility] Comment on above: Performed By: #### C VDTBH #### [facility] [address] [place] [address] Dr. Balta Gorman IG % 0.4 % Normal 0.0-0.5 [facility] Comment on above: Performed By: #### C VDTBH #### [facility] [address] [place] [address] Dr. Balta Gorman LYMPH # 1.8 103/ul Normal 1.2-3.8 [facility] Comment on above: Performed By: #### C VDTBH #### [facility] [address] [place] [address] Dr. Balta Gorman Lymphocytes/100 WBC (Bld) 25.6 % Normal 20.5-60.0 [facility] Comment on above: Performed By: #### C VDTBH #### [facility] [address] [place] [address] Dr. Balta Gorman MANUAL DIFF REQ NO Normal [facility] Comment on above: Performed By: #### C VDTBH #### [facility] [address] [place] [address] Dr. Balta Gorman MCH (RBC) [Entitic mass] 22.8 pg Critically low 25.9-34.0 [facility] Comment on above: Performed By: #### C VDTBH #### [facility] [address] [place] [address] Dr. Balta Gorman MCHC (RBC) [Mass/Vol] 29.7 g/dL Critically low 29.9-35.2 [facility] Comment on above: Performed By: #### C VDTBH #### [facility] [address] [place] [address] Dr. Balta Gorman MCV (RBC) [Entitic vol] 76.9 fL Critically low 80.0-94.0 [facility] Comment on above: Performed By: #### C VDTBH #### [facility] [address] [place] [address] Dr. Balta Gorman MONO # 1.0 103/ul Critically high 0.3-0.8 [facility] Comment on above: Performed By: #### C VDTBH #### [facility] [address] [place] [address] Dr. Balta Gorman Monocytes/100 WBC (Bld) 13.8 % Critically high 1.7-12.0 [facility] Comment on above: Performed By: #### C VDTBH #### [facility] [address] [place] [address] Dr. Balta Gorman NEUT # 3.9 103/ul Normal 1.4-6.5 [facility] Comment on above: Performed By: #### C VDTBH #### [facility] [address] [place] [address] Dr. Balta Gorman Neutrophils/100 WBC (Bld) 54.7 % Normal 43.0-75.0 [facility] Comment on above: Performed By: #### C VDTBH #### [facility] [address] [place] [address] Dr. Balta Gorman Platelet mean volume (Bld) [Entitic vol] 10.5 fL Normal 9.5-13.5 [facility] Comment on above: Performed By: #### C VDTBH #### [facility] [address] [place] [address] Dr. Balta Gorman PLT 271 103/ul Normal 150-450 [facility] Comment on above: Performed By: #### C VDTBH #### [facility] [address] [place] [address] Dr. Balta Gorman RBC 4.64 106/ul Critically low 4.70-6.10 [facility] Comment on above: Performed By: #### C VDTBH #### [facility] [address] [place] [address] Dr. Balta Gorman WBC 7.2 103/ul Normal 4.0-11.0 [facility] Comment on above: Performed By: #### C VDTBH #### [facility] [address] [place] [address] Dr. Balta Gorman GLYCOHEMOGLOBIN A1Con 2021 ADA RECOMMENDATION SEE BELOW Normal [facility] Comment on above: Result Comment: ADA RECOMMENDED LIMIT 4.0 - 6.0 ADA THERAPEUTIC TARGET < 7.0 ACTION SUGGESTED > 7.0 Performed By: #### A 1C #### [facility] [address] [address] [address] Balta Gorman Glucose [Mass/Vol] 177 mg/dL Normal [facility] Comment on above: Performed By: #### A 1C #### [facility] [address] [address] [address] Balta Gorman HbA1c (Bld) [Mass fraction] 7.8 % Critically high 4.5-6.2 [facility] Comment on above: Performed By: #### A 1C #### [facility] [address] [place] [address] Dr. Balta Gorman GRAM STAINon 03-23-2022 COMMENTS NO ORGANISMS OBSERVED Normal [facility] Comment on above: Performed By: #### A FB #### [facility] [address] [place] [address] Dr. Balta Gorman DIPHTHEROIDS Normal [facility] Comment on above: Performed By: #### A FB #### [facility] [address] [address] [address] Balta Gorman EPITHELIALS Normal [facility] Comment on above: Performed By: #### A FB #### [facility] [address] [address] [address] Balta Gorman FUNGAL ELEMENTS Normal [facility] Comment on above: Performed By: #### A FB #### [facility] [address] [place] [address] Dr. Balta Gorman GRAM NEG BACILLI Normal [facility] Comment on above: Performed By: #### A FB #### [facility] [address] [place] [address] Dr. Balta CAVAZOS NEG DIPPLOCOCCI Normal [facility] Comment on above: Performed By: #### A FB #### [facility] [address] [place] [address] Dr. Balta Gorman GRAM POS BACILLI Normal [facility] Comment on above: Performed By: #### A FB #### [facility] [address] [address] [address] Balta Gorman GRAM POSITIVE COCCI Normal [facility] Comment on above: Performed By: #### A FB #### [facility] [address] [place] [address] Dr. Balta Gorman GRAM STAIN SOURCE r. 2nd toe bone- pos t irrigation Normal [facility] Comment on above: Performed By: #### A FB #### [facility] [address] [place] [address] Dr. Balta Gorman GS_DIPTH [facility] Comment on above: Performed By: #### A FB #### [facility] [address] [place] [address] Dr. Balta Gorman WBC RARE [facility] Comment on above: Performed By: #### A FB #### [facility] [address] [place] [address] Dr. Balta Gorman POINT OF CARE GLUCOSEon 03-05 Glucose [Mass/Vol] 209 mg/dL Critically high 74-106 [facility] Comment on above: Performed By: #### A FB #### [facility] [address] [place] [address] Dr. Balta Gorman Glucose [Mass/Vol] 203 mg/dL Critically high -106 [facility] Comment on above: Performed By: #### P OCGLUC #### [facility] [address] [place] [address] Dr. Balta Gorman Glucose [Mass/Vol] 119 mg/dL Critically high 74-106 [facility] Comment on above: Performed By: #### A FB #### [facility] [address] [place] [address] Dr. Balta Gorman Glucose [Mass/Vol] 115 mg/dL Critically high -106 [facility] Comment on above: Performed By: #### A FB #### [facility] [address] [place] [address] Dr. Balta Gorman PROF CHEM 8 (BAS METB)on Anion gap [Moles/Vol] 12.2 mmol/L Normal [facility] Comment on above: Performed By: #### A FB #### [facility] [address] [place] [address] Dr. Balta Gorman Calcium [Mass/Vol] 8.1 mg/dL Critically low 8.5-10.1 [facility] Comment on above: Performed By: #### A FB #### [facility] [address] [address] [address] Batla Gorman Chloride [Moles/Vol] 104 mmol/L Normal 98-107 [facility] Comment on above: Performed By: #### A FB #### [facility] [address] [place] [address] Dr. Balta Gorman CO2 [Moles/Vol] 24.5 mmol/L Normal 21.0-32.0 [facility] Comment on above: Performed By: #### A FB #### [facility] [address] [place] [address] Dr. Balta Gorman Creatinine [Mass/Vol] 1.06 mg/dL Normal 0.70-1.30 [facility] Comment on above: Performed By: #### A FB #### [facility] [address] [place] [address] Dr. Balta Gorman EGFR-AF PAPUA NEW GUINEAN >60 Normal >=60 [facility] Comment on above: Performed By: #### A FB #### [facility] [address] [place] [address] Dr. Balta Gorman EGFR-NON AF PAPUA NEW GUINEAN >60 Normal >=60 [facility] Comment on above: Performed By: #### A FB #### [facility] [address] [place] [address] Dr. Balta Gorman Glucose [Mass/Vol] 110 mg/dL Critically high 74-106 [facility] Comment on above: Performed By: #### A FB #### [facility] [address] [place] [address] Dr. Balta Gorman Potassium [Moles/Vol] 3.7 mmol/L Normal 3.5-5.1 [facility] Comment on above: Performed By: #### A FB #### [facility] [address] [address] [address] Balta Gorman Sodium [Moles/Vol] 137 mmol/L Normal 136-145 [facility] Comment on above: Performed By: #### A FB #### [facility] [address] [address] [address] Balta Gorman Urea nitrogen [Mass/Vol] 19.0 mg/dL Critically high 7.0-18.0 [facility] Comment on above: Performed By: #### A FB #### [facility] [address] [address] [address] Balta Gorman Urea nitrogen/Creatinine [Mass ratio] 17.9 mg/mg Normal [facility] Comment on above: Performed By: #### A FB #### [facility] [address] [address] [address] Balta Gorman PROTIMEon 03-23-2022 INR Coag (PPP) [Relative time] 1.06 {INR} Normal [facility] Comment on above: Performed By: #### P TT, PT ####[facility] [address] [address]Dr. Balta Gorman INR GUIDELINES SEE BELOW Normal [facility] Comment on above: Result Comment: PORSCHE RED INR: 2.0 - 3.0 CONDITIONS NOT LISTED BELOW 2.5 - 3.5 FOR PROSTHETIC HEART VALVE REPLACEMENT 2.5 - 3.5 RECURRENT THROMBOSIS Performed By: #### P TT, PT ####[facility] [address] [address]Dr. Balta Gorman PT Coag (PPP) [Time] 11.4 s Normal 9.0-11.6 [facility] Comment on above: Performed By: #### P TT, PT ####[facility] [address] [address]Dr. Balta Gorman PTTon 03-23-2022 aPTT Coag (Bld) [Time] 33.8 s Normal 22.3-36.2 [facility] Comment on above: Performed By: #### P TT, PT ####[facility] [address] [address]Dr. Balta Gorman CBC AUTO DIFFon 03-22-2022 BASO # 0.1 103/ul Normal 0.0-0.1 [facility] Comment on above: Performed By: #### C BC ####[facility] [address] [place], [place] [address]Dr. Balta Sherif Basophils/100 WBC (Bld) 0.9 % Normal 0.2-2.0 [facility] Comment on above: Performed By: #### C BC ####[facility] Hgxqvrzn[address] [place], [place] [address]Dr. Balta Gorman EO # 0.3 103/ul Normal 0.0-0.7 [facility] Comment on above: Performed By: #### C BC ####[facility] [address] [place], [place] [address]Dr. Aurabenja Gorman Eosinophils/100 WBC (Bld) 3.2 % Normal 0.9-7.0 [facility] Comment on above: Performed By: #### C BC ####[facility] [address] [place], [place] [address]Dr. Balta Gorman Erythrocyte distribution width (RBC) [Ratio] 17.5 % Critically high 11.0-15.0 [facility] Comment on above: Performed By: #### C BC ####[facility] [address] [place], [place] [address]Dr. Balta Gorman Hematocrit (Bld) [Volume fraction] 39.5 % Critically low 42.0-54.0 [facility] Comment on above: Performed By: #### C BC ####[facility] [address]sofr[address] [place], [place] [address]Dr. Balta Gorman Hemoglobin (Bld) [Mass/Vol] 11.6 g/dL Critically low 14.0-18.0 [facility] Comment on above: Performed By: #### C BC ####[facility] [address] [place], [place] [address]Dr. Balta Gorman IG # 0.03 10e3/ul Normal 0.00-0.03 [facility] Comment on above: Performed By: #### C BC ####[facility] [address] [address]Dr. Balta Gorman IG % 0.3 % Normal 0.0-0.5 [facility] Comment on above: Performed By: #### C BC ####[facility] [address] [address]Dr. Balta Sherif LYMPH # 1.6 103/ul Normal 1.2-3.8 [facility] Comment on above: Performed By: #### C BC ####[facility] [address] [address]Dr. Aurabenja Gorman Lymphocytes/100 WBC (Bld) 17.7 % Critically low 20.5-60.0 [facility] Comment on above: Performed By: #### C BC ####[facility] [address] [address]Dr. Aurabenja Gorman MANUAL DIFF REQ NO Normal [facility] Comment on above: Performed By: #### C BC ####[facility] [address] [address]Dr. Balta Sherif MCH (RBC) [Entitic mass] 22.5 pg Critically low 25.9-34.0 [facility] Comment on above: Performed By: #### C BC ####[facility] [address] [address]Dr. Balta Sherif MCHC (RBC) [Mass/Vol] 29.4 g/dL Critically low 29.9-35.2 [facility] Comment on above: Performed By: #### C BC ####[facility] [address] [address]Dr. Aurabenja Gorman MCV (RBC) [Entitic vol] 76.6 fL Critically low 80.0-94.0 [facility] Comment on above: Performed By: #### C BC ####[facility] Ev[address]ks[address] [place], [place] [address]Dr. Balta Gorman MONO # 1.0 103/ul Critically high 0.3-0.8 [facility] Comment on above: Performed By: #### C BC ####[facility] [address] [address]Dr. Balta Gorman Monocytes/100 WBC (Bld) 11.0 % Normal 1.7-12.0 [facility] Comment on above: Performed By: #### C BC ####[facility] [address] [id number]. Balta Gorman NEUT # 5.9 103/ul Normal 1.4-6.5 [facility] Comment on above: Performed By: #### C BC ####[facility] [address] [address]Dr. Balta Sherif Neutrophils/100 WBC (Bld) 66.9 % Normal 43.0-75.0 [facility] Comment on above: Performed By: #### C BC ####[facility] Zrx[address] [place], [place] [address]Dr. Balta Gorman Platelet mean volume (Bld) [Entitic vol] 10.4 fL Normal 9.5-13.5 [facility] Comment on above: Performed By: #### C BC ####[facility] Ff[address] [place], [place] [address]Dr. Balta Sherif PLT 319 103/ul Normal 150-450 [facility] Comment on above: Performed By: #### C BC ####[facility] [address] [address]Dr. Aurabenja Sherif RBC 5.16 106/ul Normal 4.70-6.10 [facility] Comment on above: Result Comment: SLIG HT HYPOCHROMIA Performed By: #### C BC ####[facility] [address] [address]Dr. Aurabenja Sherif WBC 8.8 103/ul Normal 4.0-11.0 [facility] Comment on above: Performed By: #### C BC ####[facility] [address] [address]Dr. Balta Gorman CULTURE BLOODon 03-22-2022 Microscopic examination of blood, culture Culture Observations: No growth at 5 days. Isolate 1 BC_BA_NA Normal [facility] Comment on above: Performed By: #### C VDTBH #### [facility] [address] [place] [address] Dr. Balta Gorman Microscopic examination of blood, culture Culture Observations: No growth at 5 days. Isolate 1 BC_BA_NA Normal [facility] Comment on above: Performed By: #### C VDTBH #### [facility] [address] [address] [address] Balta Gorman Covid-19 PCR ([facility])on 03-05 SARS-CoV-2 (COVID-19) RNA DERICK+probe Ql (Unsp spec) Not detected Normal NOT DETECTED [facility] Comment on above: [...] Administration (FDA). This test was developed by [employer], [place], [place]. The performance characteristics of this test were validated by [facility]. The results are not intended to be used as the sole means for clinical diagnosis or patient management decisions. [facility] is authorized under Clinical Laboratory [...] for this test is supported by the [place] of Health and Human Service's declaration that [...] used). Performed By: #### C VDTBH #### [facility] [address] [address] [address] Balta Gorman POINT OF CARE GLUCOSEon 03-05 Glucose [Mass/Vol] 121 mg/dL Critically high 74-106 [facility] Comment on above: Performed By: #### P OCGLUC #### [facility] [address] [address] [address] Balta Gorman Glucose [Mass/Vol] 109 mg/dL Critically high 74-106 [facility] Comment on above: Performed By: #### P OCGLUC #### [facility] [address] [address] [address] Balta Gorman PROF 14(COMP METB)on 022 Albumin [Mass/Vol] 3.5 g/dL Normal 3.4-5.0 [facility] Comment on above: Performed By: #### C MP ####[facility] [address] [address]Dr. Balta Gorman Albumin/Globulin [Mass ratio] 0.8 {ratio} Normal [facility] Comment on above: Performed By: #### C MP ####[facility] [address] [address]Dr. Balta Gorman ALP [Catalytic activity/Vol] 78 U/L Normal 46-116 [facility] Comment on above: Performed By: #### C MP ####[facility] [address] [address]Dr. Balta Gorman ALT [Catalytic activity/Vol] 24 U/L Normal 16-63 [facility] Comment on above: Performed By: #### C MP ####[facility] [address] [address]Dr. Balta Gorman Anion gap [Moles/Vol] 11.9 mmol/L Normal [facility] Comment on above: Performed By: #### C MP ####[facility] [address] [address]Dr. Balta Gorman AST [Catalytic activity/Vol] 16 U/L Normal 15-37 [facility] Comment on above: Performed By: #### C MP ####[facility] [address] [address]Dr. Balta Gorman Bilirubin [Mass/Vol] 0.6 mg/dL Normal 0.2-1.0 [facility] Comment on above: Performed By: #### C MP ####[facility] [address] [address]Dr. Balta Gorman Calcium [Mass/Vol] 8.7 mg/dL Normal 8.5-10.1 [facility] Comment on above: Performed By: #### C MP ####[facility] [address] [id number]. Balta Gorman Chloride [Moles/Vol] 104 mmol/L Normal 98-107 [facility] Comment on above: Performed By: #### C MP ####[facility] [address] [address]Dr. Balta Gorman CO2 [Moles/Vol] 28.1 mmol/L Normal 21.0-32.0 [facility] Comment on above: Performed By: #### C MP ####[facility] N[address] [place], [place] [address]Dr. Balta Gorman Creatinine [Mass/Vol] 1.24 mg/dL Normal 0.70-1.30 [facility] Comment on above: Performed By: #### C MP ####[facility] [address] [address]Dr. Balta Gorman EGFR-AF PAPUA [place] >60 Normal >=60 [facility] Comment on above: Performed By: #### C MP ####[facility] [address] [address]Dr. Balta Gorman EGFR-NON AF PAPUA [place] 58 mL/min/1.73m2 Critically low >=60 [facility] Comment on above: Performed By: #### C MP ####[facility] [address]se[address] [place], [place] [address]Dr. Balta Gorman Globulin (S) [Mass/Vol] 4.4 g/dL Normal [facility] Comment on above: Performed By: #### C MP ####[facility] [address] [place], [place] [address]Dr. Balta Gorman Glucose [Mass/Vol] 205 mg/dL Critically high 74-106 [facility] Comment on above: Performed By: #### C MP ####[facility] [address] [address]Dr. Balta Gorman Potassium [Moles/Vol] 4.0 mmol/L Normal 3.5-5.1 [facility] Comment on above: Performed By: #### C MP ####[facility] X[address]wssct[address] [place], [place] [address]Dr. Balta Gorman Protein [Mass/Vol] 7.9 g/dL Normal 6.4-8.2 [facility] Comment on above: Performed By: #### C MP ####[facility] Ifjnxcsonb[address] [place], [place] [address]Dr. Balta Gorman Sodium [Moles/Vol] 140 mmol/L Normal 136-145 [facility] Comment on above: Performed By: #### C MP ####[facility] Slstznazgu[address] [place], [place] [address]Dr. Balta Gorman Urea nitrogen [Mass/Vol] 22.0 mg/dL Critically high 7.0-18.0 [facility] Comment on above: Performed By: #### C MP ####[facility] [address] [place], [place] [address]Dr. Balta Gorman Urea nitrogen/Creatinine [Mass ratio] 17.7 mg/mg Normal [facility] Comment on above: Performed By: #### C MP ####[facility] [address]chx[address]bet[address] [place], [place] [address]Dr. Balta Gorman UA (CLEAN/CATCH) LUMP MACHINE OPERATOR/MICRO I F IND.on 03-22-2022 Bilirubin Ql (U) Negative Normal NEGATIVE [facility] Comment on above: Performed By: #### U ACSIND ####[facility] [address] [address]Dr. Balta Gorman Clarity (U) CLEAR Normal CLEAR [facility] Comment on above: Performed By: #### U ACSIND ####[facility] [address] [place], [place] [address]Dr. Balta Gorman Color (U) LT. YELLOW Normal YELLOW [facility] Comment on above: Performed By: #### U ACSIND ####[facility] [address] [place], [place] [address]Dr. Balta Gorman Glucose Ql (U) >1000 Abnormal NEGATIVE [facility] Comment on above: Performed By: #### U ACSIND ####[facility] Nx[address]ulonmjf[address] [place], [place] [address]Dr. Balta Gorman Hemoglobin Ql (U) Negative Normal NEGATIVE [facility] Comment on above: Performed By: #### U ACSIND ####[facility] Z[address] [place], [place] [address]Dr. Balta Gorman Ketones Ql (U) Negative Normal NEGATIVE [facility] Comment on above: Performed By: #### U ACSIND ####[facility] [address] [place], [place] [address]Dr. Balta Gorman LEUKOCYTES Negative Normal NEGATIVE [facility] Comment on above: Performed By: #### U ACSIND ####[facility] [address]om[address] [place], [place] [address]Dr. Balta Gorman Nitrite Ql (U) Negative Normal NEGATIVE [facility] Comment on above: Performed By: #### U ACSIND ####[facility] Xtha[address]rmfn[address] [place], [place] [address]Dr. Balta Gorman pH (U) 6.0 [pH] Normal 5-9 [facility] Comment on above: Performed By: #### U ACSIND ####[facility] [address]vwtvsc[address] [place], [place] [address]Dr. Balta Gorman SPEC GRAVITY 1.010 Normal 1.005-<=1.02 5 [facility] Comment on above: Performed By: #### U ACSIND ####[facility] T[address]rf[address] [place], [place] [address]Dr. Balta Gorman UA PROTEIN Negative Normal NEGATIVE/ TRACE [facility] Comment on above: Performed By: #### U ACSIND ####[facility] Lscsup[address]zl[address] [place], [place] [address]Dr. Balta Gorman UR MICRO IND NOT INDICATED Normal [facility] Comment on above: Performed By: #### U ACSIND ####[facility] Rx[address] [place], [place] [address]Ht. Balta Gorman Urobilinogen Qn (U) 0.2 {Jose Luis'U}/dL Normal 0.2 - 1. 0 [facility] Comment on above: Performed By: #### U ACSIND ####[facility] [address] [address]Dr. Balta Gorman XR FOOT RT MIN 3 [...] HELGA GOLDBERG Date: 2022-03-22 15:21 Normal [facility] Blood Urea Nitrogenon 2021 Urea nitrogen [Mass/Vol] 21 mg/dL Normal - [facility] Comment on above: Performed By: #### P P, LYTES, CBC, BUN, CREAT, LIPID #### [facility] [address] COVID-19 Antigenon 2 COVID-19 Antigen Healthcare [...] developed and its performance characteristic determined by [employer] and validated at [facility]. This test has not been FDA cleared [...] SARS Antigen by JOSE L PERFORMED BY: [place] [address] PATHOLOGIST [employer] OPERATOR ERLIN GUPTA M.D. Normal [facility] Comment on above: Performed By: #### S OFIANEG, COVID-19 HERMINIO #### [facility] [address] [place] [address] Coagulation Profileon 2021 aPTT Coag (Bld) [Time] 30.4 s Normal 25.1-36.5 [facility] Comment on above: Result Comment: PERF ORMED BY: [place] [address] PATHOLOGIST [employer] OPERATOR ERLIN GUPTA M.D. Performed By: #### P P, LYTES, CBC, BUN, CREAT, LIPID #### [facility] [address] [place] [address] INR Coag (PPP) [Relative time] 1.1 {INR} Normal [facility] Comment on above: Result Comment: INR Therapeutic [...] P, LYTES, CBC, BUN, CREAT, LIPID #### [address] PT Coag (PPP) [Time] 12.7 s Normal 9.0-12.9 [facility] Comment on above: Performed By: #### P P, LYTES, CBC, BUN, CREAT, LIPID #### [address] Complete Blood Count Auto Di ffon 03-10-2022 Basophils (Bld) [#/Vol] 0.1 10*3/uL Normal 0.0-0.2 [facility] Comment on above: Result Comment: PERF ORMED BY: [place] [address] PATHOLOGIST [employer] OPERATOR ERLIN GUPTA M.D. Performed By: #### P P, LYTES, CBC, BUN, CREAT, LIPID #### [address] Basophils/100 WBC (Bld) 1.6 % Normal . [facility] Comment on above: Performed By: #### P P, LYTES, CBC, BUN, CREAT, LIPID #### [address] Eosinophils (Bld) [#/Vol] 0.2 10*3/uL Normal 0.0-0.45 [facility] Comment on above: Performed By: #### P P, LYTES, CBC, BUN, CREAT, LIPID #### [address] Eosinophils/100 WBC (Bld) 3.4 % Normal . [facility] Comment on above: Performed By: #### P P, LYTES, CBC, BUN, CREAT, LIPID #### [address] Erythrocyte distribution width (RBC) [Ratio] 17.0 % High 12.0-14.8 [facility] Comment on above: Performed By: #### P P, LYTES, CBC, BUN, CREAT, LIPID #### [address] Hematocrit (Bld) [Volume fraction] 38.9 % Normal 38.8-50.0 [facility] Comment on above: Performed By: #### P P, LYTES, CBC, BUN, CREAT, LIPID #### [address] Hemoglobin (Bld) [Mass/Vol] 12.4 g/dL Low 13.0-17.0 [facility] Comment on above: Performed By: #### P P, LYTES, CBC, BUN, CREAT, LIPID #### [address] Lymphocytes (Bld) [#/Vol] 1.6 10*3/uL Normal 1.00-4.8 [facility] Comment on above: Performed By: #### P P, LYTES, CBC, BUN, CREAT, LIPID #### [address] Lymphocytes/100 WBC (Bld) 25.1 % Normal . [facility] Comment on above: Performed By: #### P P, LYTES, CBC, BUN, CREAT, LIPID #### [address] MCH (RBC) [Entitic mass] 22.6 pg Low 27.5-35.2 [facility] Comment on above: Performed By: #### P P, LYTES, CBC, BUN, CREAT, LIPID #### [address] MCV (RBC) [Entitic vol] 70.8 fL Low 83.5-101 [facility] Comment on above: Performed By: #### P P, LYTES, CBC, BUN, CREAT, LIPID #### [address] Mean Corpuscular HGB Conc 31.9 g/dL Low 32.5-35.6 [facility] Comment on above: Performed By: #### P P, LYTES, CBC, BUN, CREAT, LIPID #### [address] Monocytes (Bld) [#/Vol] 0.7 10*3/uL Normal 0.0-0.8 [facility] Comment on above: Performed By: #### P P, LYTES, CBC, BUN, CREAT, LIPID #### [address] Monocytes/100 WBC (Bld) 10.2 % Normal . [facility] Comment on above: Performed By: #### P P, LYTES, CBC, BUN, CREAT, LIPID #### [address] Neutrophils (Bld) [#/Vol] 3.8 10*3/uL Normal 1.8-7.7 [facility] Comment on above: Performed By: #### P P, LYTES, CBC, BUN, CREAT, LIPID #### [address] Neutrophils/100 WBC (Bld) 59.7 % Normal . [facility] Comment on above: Performed By: #### P P, LYTES, CBC, BUN, CREAT, LIPID #### [address] Nucleated RBC/100 WBC (Bld) [Ratio] 0.1 % Normal 0-0.5 [facility] Comment on above: Performed By: #### P P, LYTES, CBC, BUN, CREAT, LIPID #### [address] Platelet mean volume (Bld) [Entitic vol] 8.6 fL Normal 6.6-10.1 [facility] Comment on above: Performed By: #### P P, LYTES, CBC, BUN, CREAT, LIPID #### [facility] [address] Platelets (Bld) [#/Vol] 270 10*3/uL Normal 150-450 [facility] Comment on above: Performed By: #### P P, LYTES, CBC, BUN, CREAT, LIPID #### [address] RBC (Bld) [#/Vol] 5.49 10*6/uL Normal 3.90-5.60 [facility] Comment on above: Performed By: #### P P, LYTES, CBC, BUN, CREAT, LIPID #### [address] WBC (Bld) [#/Vol] 6.4 10*3/uL Normal 4.5-11.0 [facility] Comment on above: Performed By: #### P P, LYTES, CBC, BUN, CREAT, LIPID #### [address] Creatinineon 03-10-2022 Creatinine [Mass/Vol] 1.01 mg/dL Normal 0.64-1.27 [facility] Comment on above: Performed By: #### P P, LYTES, CBC, BUN, CREAT, LIPID #### [address] Estimated GFR ( Raegan > 60 Normal [facility] Comment on above: Result Comment: GFR estimated reference range: According to KDOQI guidelines, <60 ml/min/1.73m2 is sufficient to diagnose a patient with chronic kidney disease. Performed By: #### P P, LYTES, CBC, BUN, CREAT, LIPID #### [address] Estimated GFR (Non- Am > 60 Normal [facility] Comment on above: Performed By: #### P P, LYTES, CBC, BUN, CREAT, LIPID #### [facility] [address] ECG 12 lead ECGon 03-10-2022 ECG 12 lead ECG [facility] [place] [address] [place] [address] Electrocardiograph Report Signed Patient: Janice Ford Jr MR#: [id number] : 1955 Acct:[id number] Age/Sex: 67 / M ADM Date: 03/10/22 Loc: PS Room: Type: [employer] Attending Dr: Margaux Castillo MD Ordering Provider: [...] are now present Confirmed by [place] [facility], ERIKA ([id number]) on 03/10/2022 10:04:07 AM Referred By: LATESHA CASTILLO Electronically Signed By:ERIKA OSBORNE MD [facility] Transcribed By: MUS Signed By Erika Osborne MD, FACC 03/10/22 1004 Normal [facility] Electrolyteson 03-10-2022 Chloride [Moles/Vol] 105 mmol/L Normal 95-114 [facility] Comment on above: Performed By: #### P P, LYTES, CBC, BUN, CREAT, LIPID #### [address] CO2 [Moles/Vol] 22.9 mmol/L Normal 22.0-30.0 [facility] Comment on above: Performed By: #### P P, LYTES, CBC, BUN, CREAT, LIPID #### [facility] [address] Potassium [Moles/Vol] 4.3 mmol/L Normal 3.5-5.1 [facility] Comment on above: Performed By: #### P P, LYTES, CBC, BUN, CREAT, LIPID #### [facility] [address] Sodium [Moles/Vol] 137 mmol/L Normal 136-146 [facility] Comment on above: Performed By: #### P P, LYTES, CBC, BUN, CREAT, LIPID #### [facility] [address] Laboratory - Chemistry and C hemistry - challengeon 03-10-2022 Cholesterol [Mass/Vol] 167\S\167 Normal 140-[address] [place] [address] DO Work Phone: Comment on above: Chol less than 200 m g/dl low risk Chol 201-239 mg/dl borderline risk Chol 240 mg/dl and greater high risk Cholesterol in LDL [Mass/Vol] 80\S\80 Normal 0-100 [place] [address] DO Work Phone: Comment on above: LDL ATP III CLASSIFI CATION LDL less than 100 mg/dL Optimal LDL 100-129 mg/dL Near or above optimal LDL 130-159 mg/dL Borderline high LDL 160-189 mg/dL High LDL greater than 189 mg/dL Very high Laboratory - Microbiology an d Antimicrobial susceptibilityon 03-10-2022 SARS-CoV-2 (COVID-19) RNA DERICK+probe Ql (Unsp spec) [place] [address] DO Work Phone: Lipid Panelon 03-10-2022 Cholesterol [Mass/Vol] 167 mg/dL Normal 140-200 [facility] Comment on above: Result Comment: Chol less than 200 mg/dl low risk Chol 201-239 mg/dl borderline risk Chol 240 mg/dl and greater high risk Performed By: #### P P, LYTES, CBC, BUN, CREAT, LIPID #### [facility] [address] Cholesterol in HDL [Mass/Vol] 21 mg/dL Low 29-71 [facility] Comment on above: Result Comment: HDL CHOL ATP-III CLASSIFICATION Cardiovascular Risk HDL > or equal to 60 mg/dL LOW HDL < 40 mg/dL HIGH Performed By: #### P P, LYTES, CBC, BUN, CREAT, LIPID #### [facility] [address] Cholesterol.total/Ch olesterol in HDL [Mass ratio] 8.0 {ratio} Normal <5.0 [facility] Comment on above: Result Comment: PERF ORMED BY: [place] [address] PATHOLOGIST [employer] OPERATOR ERLIN GUPTA M.D. Performed By: #### P P, LYTES, CBC, BUN, CREAT, LIPID #### [address] LDL Cholesterol,Calculat ed 80 mg/dL Normal 0-100 [facility] Comment on above: Result Comment: LDL ATP III CLASSIFICATION LDL less than 100 mg/dL Optimal LDL 100-129 mg/dL Near or above optimal LDL 130-159 mg/dL Borderline high LDL 160-189 mg/dL High LDL greater than 189 mg/dL Very high Performed By: #### P P, LYTES, CBC, BUN, CREAT, LIPID #### [address] Triglyceride w/Reflex 328 mg/dL High 35-149 [facility] Comment on above: Result Comment: TRIG ATP III CLASSIFICATION TRIG less than 150 mg/dL Normal TRIG 150-199 mg/dL Borderline high TRIG 200-500 mg/dL High TRIG greater than 500 mg/dL Very high Standard traceable to the Center for Disease Conrtrol and Prevention (CDC) test method. Performed By: #### P P, LYTES, CBC, BUN, CREAT, LIPID #### [facility] [address] VLDL CHOLESTEROL 65 mg/dL Normal [facility] Comment on above: Performed By: #### P P, LYTES, CBC, BUN, CREAT, LIPID #### [facility] [address] [place] [address] [facility] No Panel Informationon 03-10 0.1\S\0.1 Normal 0-0.5 -[facility] 600 DO Work Phone: Comment on above: PERFORMED BY:[facility]1111 [address]JHONY MCD[place] [id number] MEDICAL DIRECTORERLIN GUPTA M.D. 0.2\S\0.2 Normal 0.0-0.45 -[facility] 600 DO Work Phone: 0.7\S\0.7 Normal 0.0-0.8 -[facility] 600 DO Work Phone: 1.6\S\1.6 Normal . [facility] 600 DO Work Phone: 3.8\S\3.8 Normal 1.8-7.7 -[facility] 600 DO Work Phone: 3.4\S\3.4 Normal . [facility] 600 DO Work Phone: 10.2\S\10.2 Normal . [facility] 600 DO Work Phone: 25.1\S\25.1 Normal . [facility] 600 DO Work Phone: 59.7\S\59.7 Normal . [facility] 600 DO Work Phone: 8.6\S\8.6 Normal 6.6-10.1 -[facility] 600 DO Work Phone: 270\S\270 Normal 150-450 [facility] 600 DO Work Phone: 17.0\S\17.0 above high threshold 12.0-14.8 -[facility] 600 DO Work Phone: 31.9\S\31.9 below low threshold 32.5-35.6 -[facility] 600 DO Work Phone: 22.6\S\22.6 below low threshold 27.5-35.2 [facility] 600 DO Work Phone: 70.8\S\70.8 below low threshold 83.5-101 MP-[facility] 600 DO Work Phone: 38.9\S\38.9 Normal 38.8-50.0 [facility] 600 DO Work Phone: 12.4\S\12.4 below low threshold 13.0-17.0 [facility] 600 DO Work Phone: 5.49\S\5.49 Normal 3.90-5.60 [facility] 600 DO Work Phone: 6.4\S\6.4 Normal 4.1-10.5 -[facility] 600 DO Work Phone: 30.4\S\30.4 Normal 25.1-36.5 [facility] 600 DO Work Phone: Comment on above: PERFORMED BY:[place] [address] [address] [place], [place] [phone] MEDICAL DIRECTORERLIN GUPTA M.D. 1.1\S\1.1 Normal [facility] 600 DO Work Phone: Comment on [...] valves: 3 - 4.5 12.7\S\12.7 Normal 9.0-12.9 [facility] 600 DO Work Phone: Negative Normal Negative -[facility] 600 DO Work Phone: Comment on above: This is a duplicate Herminio SARS Antigen (JOSE L) result to be used for statistical tracking purpose only.PERFORMED BY:[place] [address] [address] [place]DENA[place]CH[place], [place] [phone] MEDICAL DIRECTORERLIN GUPTA M.D. 22.9\S\22.9 Normal 22.0-30.0 [facility] 600 DO Work Phone: 105\S\105 Normal 95-114 [facility] 600 DO Work Phone: 4.3\S\4.3 Normal 3.5-5.1 [facility] 600 DO Work Phone: 137\S\137 Normal 136-146 [facility] 600 DO Work Phone: 21\S\21 below low threshold 29-71 -[facility] 600 DO Work Phone: Comment on above: HDL CHOL ATP-III CLA SSIFICATION Cardiovascular Risk HDL > or equal to 60 mg/dL LOW HDL < 40 mg/dL HIGH > 60 Normal [facility] 600 DO Work Phone: Comment on above: GFR estimated refere nce range: According to KDOQI guidelines, <60 ml/min/1.73m2 is sufficient to diagnose a patient with chronic kidney disease. 1.01\S\1.01 Normal 0.64-1.27 [facility] 600 DO Work Phone: 8.0\S\8.0 Normal <5.0 [facility] 600 DO Work Phone: Comment on above: PERFORMED BY:[facility] CONDENACOG[place]CH[place], [place] [phone] MEDICAL DIRECTORERLIN GUPTA M.D. 66\S\65 Normal -[facility] 600 DO Work Phone: 328\S\328 above high threshold 35-149 -[facility] 600 DO Work Phone: Comment on above: TRIG ATP III CLASSIF ICATION TRIG less than 150 mg/dL Normal TRIG 150-199 mg/dL Borderline high TRIG 200-500 mg/dL High TRIG greater than 500 mg/dL Very high Standard traceable to the Center for Disease Conrtrol and Prevention (CDC) test method. Herminio Ag Negativeon 03-10-20 Herminio Ag Negative Negative Normal Negative [facility] Comment on above: Result Comment: This is a duplicate Herminio SARS Antigen (JOSE L) result to be used for statistical tracking purpose only. PERFORMED BY: [place] [address] PATHOLOGIST [employer] OPERATOR ERLIN GUPTA M.D. Performed By: #### S DEEJAY CHAUID-19 HERMINIO #### [address] CARDIAC STRESS/REST INJE CTIONon 03-01-2022 [facility] CARDIAC STRESS/REST INJECTION Patient Name: JANICE FORD STUDY: MYOCARDIAL PERFUSION STRESS TEST WITH LEXISCAN Performing facility: [facility], [address] [place] [address], [address] Provider: Helga Flores DO, [facility] PCP: Dr. Vineet Agrawal Supervising provider: Rtana Elias DO, [facility] INDICATION: Angina CAD; S/P PTCA HISTORY: Gender: M; Age: 67 y/o ; Height: 185.42 cm; Weight: 106.047793 kg. High Cholesterol; CAD; Diabetes; HTN; Chest Pain; Denies smoking. Cardiac catheterization on 2021. PTCA on 2021. CABG on 1992. COMPARISON: Previous nuclear testing completed at [facility]. ACCESSION NUMBER(S): [id number]; [id number]; [id number] ORDERING CLINICIAN: HELGA FLORES TECHNIQUE: ONE DAY [...] Electronically signed by: MARGAUX CASTILLO MD Normal [facility] No Panel Informationon 03-01 Normal -[facility] 250 DO Work Phone: Complete Blood Count with Au to Diffon 01-23-2022 Basophils (Bld) [#/Vol] 0.08 10*3/uL Normal 0.00-0.20 [facility] [employer] Supervisor Comment on above: Performed By: #### C BCAD #### [facility] [address] [place], [place] [id number] Basophils/100 WBC (Bld) 1.1 % Normal [facility] Specialist Comment on above: Performed By: #### C BCAD #### [facility] [address] [place], [place] [id number] Eosinophils (Bld) [#/Vol] 0.29 10*3/uL Normal 0.02-0.50 [facility] Specialist Comment on above: Performed By: #### C BCAD #### [facility] [address] [place], [place] [id number] Eosinophils/100 WBC (Bld) 4.1 % Normal [facility] Specialist Comment on above: Performed By: #### C BCAD #### [facility] [address] [place], [place] [id number] Erythrocyte distribution width (RBC) [Ratio] 17.6 % High 11.0-15.0 [facility] Specialist Comment on above: Performed By: #### C BCAD #### [facility] [address] [place], [place] [id number] Hematocrit (Bld) [Volume fraction] 41.0 % Normal 38.5-50.0 [facility] Specialist Comment on above: Performed By: #### C BCAD #### [facility] [address] [place], [place] [id number] Hemoglobin (Bld) [Mass/Vol] 11.9 g/dL Low 13.0-17.1 [facility] Specialist Comment on above: Performed By: #### C BCAD #### [facility] [address] [place], [place] [id number] Lymphocytes (Bld) [#/Vol] 1.8 10*3/uL Normal 0.9-3.9 [facility] Specialist Comment on above: Performed By: #### C BCAD #### [facility] [address] [place], [place] [id number] Lymphocytes/100 WBC (Bld) 25.1 % Normal [facility] Specialist Comment on above: Performed By: #### C BCAD #### [facility] [address] [place], [place] [id number] MCH (RBC) [Entitic mass] 21.9 pg Low 27.0-33.0 [facility] Specialist Comment on above: Performed By: #### C BCAD #### [facility] [address] [place], [place] [id number] MCHC (RBC) [Mass/Vol] 29.0 g/dL Low 32.0-36.0 [facility] Specialist Comment on above: Performed By: #### C BCAD #### [facility] [address] [place], [place] [id number] MCV (RBC) [Entitic vol] 76 fL Low 80-100 [facility] Specialist Comment on above: Performed By: #### C BCAD #### [facility] [address] [place], [place] [id number] Monocytes (Bld) [#/Vol] 0.7 10*3/uL Normal 0.2-0.9 [facility] Specialist Comment on above: Performed By: #### C BCAD #### [facility] [address] [place], [place] [id number] Monocytes/100 WBC (Bld) 9.3 % Normal [facility] Specialist Comment on above: Performed By: #### C BCAD #### [facility] [address] [place], [place] [id number] Neutrophils (Bld) [#/Vol] 4.3 10*3/uL Normal 1.5-7.8 [facility] Specialist Comment on above: Performed By: #### C BCAD #### [facility] [address] [place], [place] [id number] Neutrophils/100 WBC (Bld) 60.0 % Normal [facility] Specialist Comment on above: Performed By: #### C BCAD #### [facility] [address] [place], [place] [id number] Platelet mean volume (Bld) [Entitic vol] 10.50 fL Normal 7.50-12.50 [facility] Specialist Comment on above: Performed By: #### C BCAD #### [facility] [address] [place], [place] [id number] Platelets (Bld) [#/Vol] 306 10*3/uL Normal 140-400 [facility] Specialist Comment on above: Performed By: #### C BCAD #### [facility] [address] [place], [place] [id number] RBC (Bld) [#/Vol] 5.43 10*6/uL Normal 4.20-5.80 [facility] Comment on above: Performed By: #### C BCAD #### [facility] [address] [place], [place] [id number] RDW-SD 46.0 fL Normal 37.0-50.0 [facility] Specialist Comment on above: Performed By: #### C BCAD #### [facility] [address] [place], [place] [id number] WBC (Bld) [#/Vol] 7.1 10*3/uL Normal 3.8-11.0 [facility] Comment on above: Performed By: #### C BCAD #### [facility] [address] [place], [place] [id number] Hemoglobin A1Con 01-23-2022 EAG 182.90 Normal [facility] Comment on above: Performed By: #### A 1C #### [facility] [address] [place], [place] [id number] HbA1c (Bld) [Mass fraction] 8.0 % High 4.0-6.0 [facility] Comment on above: Performed By: #### A 1C #### [facility] [address] [place], [place] [id number] Lipid Panelon 01-23-2022 Cholesterol [Mass/Vol] 177 mg/dL Normal 125-200 [facility] Specialist Comment on above: Result Comment: Low risk < 200mg/dL Borderline risk 201-239 mg/dl High risk > or equal to 240 Performed By: #### L IPD #### [facility] [address] [place], [place] [id number] Cholesterol in HDL [Mass/Vol] 25 mg/dL Low >40 [facility] Specialist Comment on above: Result Comment: High Cardiovascular Risk HDL <40 mg/dL Low Cardiovascular Risk HDL > or equal to 60 mg/dl Performed By: #### L IPD #### [facility] [address] [place], [place] [id number] Cholesterol in LDL [Mass/Vol] 83 mg/dL Normal [facility] Comment on above: Result Comment: LDL ATP III CLASSIFICATION LDL less than 100 mg/dl Optimal LDL 100-129 mg/dl Near or above optimal LDL 130-159 Borderline high LDL 160-189 High LDL greater than 189 mg/dl Very High Performed By: #### L IPD #### [facility] [address] [place], [place] [id number] Cholesterol in VLDL [Mass/Vol] 69 mg/dL Normal [facility] [employer] Supervisor Comment on above: Performed By: #### L IPD #### [facility] [address] [place], [place] [id number] Cholesterol.total/Ch olesterol in HDL [Mass ratio] 7 {ratio} Normal [facility] Specialist Comment on above: Performed By: #### L IPD #### [facility] [address] [place], [place] [id number] Triglyceride [Mass/Vol] 343 mg/dL High 30-150 [facility] [employer] Supervisor Comment on above: Result Comment: TRIG ATPIII CLASSIFICATIONS TRIG less than 150 mg/dl Normal TRIG 150-199 mg/dl Borderline High TRIG 200-500 mg/dl High TRIG greather than 500 mg/dl Very High Performed By: #### L IPD #### [facility] [address] [place], [place] [id number] PSA SCREEN (MEDICARE)on 01-04 TPSA 0.405 ng/mL Normal <4.000 [facility] Specialist Comment on above: Result Comment: PSA Test Method: ECLIA/Joseph e 601 Performed By: #### P SA MC #### [facility] [address] [place], [place] [id number] Tobacco Screening.on 022 Fall risk assessment a) No falls within the last year [facility] 250 DO Work Phone: Tobacco use status CP b) No [facility] 250 DO Work Phone: Laboratory - Chemistry and C hemistry - challengeon 11-07-2021 Cholesterol [Mass/Vol] 183\S\183 Normal 140-200 [facility] 250 DO Work Phone: Comment on above: Chol less than 200 m g/dl low risk Chol 201-239 mg/dl borderline risk Chol 240 mg/dl and greater high risk Cholesterol in LDL [Mass/Vol] 97\S\97 Normal 0-100 [facility] 250 DO Work Phone: Comment on above: LDL ATP III CLASSIFI CATION LDL less than 100 mg/dL Optimal LDL 100-129 mg/dL Near or above optimal LDL 130-159 mg/dL Borderline high LDL 160-189 mg/dL High LDL greater than 189 mg/dL Very high Laboratory - Microbiology an d Antimicrobial susceptibilityon 11-07-2021 SARS-CoV-2 (COVID-19) RNA DERICK+probe Ql (Unsp spec) [facility] 250 DO Work Phone: No Panel Informationon 11-07 56.2\S\56.2 Normal . [facility] 250 DO Work Phone: 8.5\S\8.5 Normal 6.6-10.1 [facility] Work Phone: 279\S\279 Normal 150-450 [facility] 250 DO Work Phone: 16.0\S\16.0 above high threshold 12.0-14.8 [facility] Work Phone: 31.3\S\31.3 below low threshold 32.5-35.6 [facility] Work Phone: 22.7\S\22.7 below low threshold 27.5-35.2 [facility] 250 DO Work Phone: 3.5\S\3.5 Normal 1.8-7.7 [facility] 250 DO Work Phone: 0.1\S\0.1 Normal 0.0-0.2 [facility] 250 DO Work Phone: Comment on above: PERFORMED BY:[place] [address] [address] [place], [place] [id number] MEDICAL DIRECTORERLIN GUPTA M.D. 1.4\S\1.4 Normal . [facility] 250 DO Work Phone: 4.0\S\4.0 Normal . [facility] 250 DO Work Phone: 10.2\S\10.2 Normal . [facility] 250 DO Work Phone: 28.2\S\28.2 Normal . [facility] 250 DO Work Phone: 0.2\S\0.2 Normal 0.0-0.45 [facility] 250 DO Work Phone: 0.6\S\0.6 Normal 0.0-0.8 [facility] 250 DO Work Phone: 1.7\S\1.7 Normal 1.00-4.8 [facility] 250 DO Work Phone: 72.3\S\72.3 below low threshold 83.5-101 [facility] 250 DO Work Phone: 39.8\S\39.8 Normal 38.8-50.0 [facility] 250 DO Work Phone: 12.5\S\12.5 below low threshold 13.0-17.0 [facility] 250 DO Work Phone: 5.50\S\5.50 Normal 3.90-5.60 [facility] 250 DO Work Phone: 6.2\S\6.2 Normal 4.1-10.5 [facility] 250 DO Work Phone: 34.4\S\34.4 Normal 25.1-36.5 [facility] 250 DO Work Phone: Comment on above: PERFORMED BY:[facility] [place] [id number] MEDICAL DIRECTORERLIN GUPTA M.D. 1.1\S\1.1 Normal -[facility] 250 DO Work Phone: [...] valves: 3 - 4.5 12.2\S\12.2 Normal 9.0-12.9 -[facility] 250 DO Work Phone: Negative Normal Negative -[facility] 250 DO Work Phone: Comment on above: This is a duplicate Herminio SARS Antigen (JOSE L) result to be used for statistical tracking purpose only.PERFORMED BY:[facility] [place] [id number] MEDICAL DIRECTORERLIN GUPTA M.D. 24.2\S\24.2 Normal 22.0-30.0 [facility] 250 DO Work Phone: 101\S\101 Normal 95-114 [facility] 250 DO Work Phone: 4.5\S\4.5 Normal 3.5-5.1 -[facility] 250 DO Work Phone: 139\S\139 Normal 136-146 -[facility] 250 DO Work Phone: 23\S\23 Normal 9-23 -[facility] 250 DO Work Phone: > 60 Normal -[facility] 250 DO Work Phone: Comment on above: GFR estimated refere ohe range: According to KDOQI guidelines, <60 ml/min/1.73m2 is sufficient to diagnose a patient with chronic kidney disease. 1.14\S\1.14 Normal 0.64-1.27 [facility] 250 DO Work Phone: 9.2\S\9.2 Normal <5.0 [place] [address] DO Work Phone: Comment on above: PERFORMED BY:[place] [address] [address] [place], [place] [phone] MEDICAL DIRECTORERLIN GUPTA M.D. 65\S\65 Normal [place] [address] DO Work Phone: 329\S\329 above high threshold 35-149 [place] [address] DO Work Phone: Comment on above: TRIG ATP III CLASSIF ICATION TRIG less than 150 mg/dL Normal TRIG 150-199 mg/dL Borderline high TRIG 200-500 mg/dL High TRIG greater than 500 mg/dL Very high Standard traceable to the Center for Disease Conrtrol and Prevention (CDC) test method. 20\S\20 below low threshold 29-71 [place] [address] DO Work Phone: Comment on above: HDL CHOL ATP-III CLA SSIFICATION Cardiovascular Risk HDL > or equal to 60 mg/dL LOW HDL < 40 mg/dL HIGH [facility] CARDIAC STRESS/REST INJE CTIONon 10-12-2021 [facility] CARDIAC STRESS/REST INJECTION Patient Name: JANICE FORD STUDY: MYOCARDIAL PERFUSION STRESS TEST WITH LEXISCAN Performing facility: [facility], [address] [place] [id number] [facility] Provider: Helga Flores DO, FAC PCP: Dr. Vineet Agrawal Supervising provider: Erika Osborne MD, FACC INDICATION: CAD; HISTORY: Gender: M; Age: 66 y/o ; Height: 185.42 cm; Weight: 106.130607 kg. High Cholesterol; CAD; Diabetes; HTN; Chest Pain; Denies smoking. Cardiac catheterization on 2014. PTCA on 2014. COMPARISON: Previous nuclear testing completed [id number] at [facility]. ACCESSION NUMBER(S): [id number]; [id number]; [id number] ORDERING CLINICIAN: HEGLA FLORES TECHNIQUE: ONE DAY protocol. Stress injection: [...] Electronically signed by: ERIKA OSBORNE MD Normal [facility] No Panel Informationon 10-12 Normal [facility] 600 DO Work Phone: Quick Strepon 10-10-2021 S. pyogenes Org specific cx Ql (Throat) Negative [facility] Other Quick Strep [facility] Other Tobacco Screening.on 021 Fall risk assessment a) No falls within the last year [facility] 250 DO Work Phone: Tobacco use status CPHS b) No [facility] 250 DO Work Phone: Vital Signs Date Time Vital Sign Value Performing Clinician Facility 02-23-2025 09:20-0400 Diastolic blood pressure 86 mm[Hg] [address] 02-23-2025 09:20-0400 Heart rate 76 /min [address] 02-23-2025 09:20-0400 Systolic blood pressure 136 mm[Hg] [address] 01-29-2025 08:49-0400 Body height 185.4 cm Latha HARRIS Work Phone: [facility] 01-29-2025 08:49-0400 Body mass index (BMI) [Ratio] 28.1 kg/m2 Latha HARRIS Work Phone: [facility] 01-29-2025 08:49-0400 Body temperature 97.3 [degF] Latha HARRIS Work Phone: [facility] 01-29-2025 08:49-0400 Body weight 96.62 kg Latha HARRIS Work Phone: [facility] 01-29-2025 08:49-0400 Diastolic blood pressure 72 mm[Hg] Latha HARRIS Work Phone: [facility] 01-29-2025 08:49-0400 Heart rate 76 /min Latha HARRIS Work Phone: [facility] 01-29-2025 08:49-0400 SaO2% (BldA) [Mass fraction] 96 % Latha HARRIS Work Phone: [facility] 01-29-2025 08:49-0400 Systolic blood pressure 130 mm[Hg] Latha HARRIS Work Phone: [facility] 01-28-2025 10:05-0400 Body height 185.4 cm Martin Elias DO Work Phone: [facility] 01-28-2025 10:05-0400 Body mass index (BMI) [Ratio] 28.68 kg/m2 Martin Elias DO Work Phone: [facility] 01-28-2025 10:05-0400 Body weight 98.61 kg Martin Elias DO Work Phone: [facility] 01-28-2025 10:05-0400 Diastolic blood pressure 66 mm[Hg] Martin Elias DO Work Phone: [facility] 01-28-2025 10:05-0400 Heart rate 82 /min Martin Elias DO Work Phone: [facility] 01-28-2025 10:05-0400 Systolic blood pressure 116 mm[Hg] Martin Elias DO Work Phone: [facility] 12-04-2024 11:36-0500 Body height 185.4 cm Joyce Loyd [employer]OR[employer] DANCER Work Phone: [facility] 12-04-2024 11:36-0500 Body mass index (BMI) [Ratio] 28.23 kg/m2 Joyce Loyd [employer] D[employer]ER Work Phone: [facility] 12-04-2024 11:36-0500 Body temperature 98.01 [degF] Joyce Loyd [employer]OR[employer] DANCER Work Phone: [facility] 12-04-2024 11:36-0500 Body weight 97.07 kg Joyce Loyd [employer] D[employer]ER Work Phone: [facility] 12-04-2024 11:36-0500 Diastolic blood pressure 78 mm[Hg] Joyce Loyd [employer] DANCER Work Phone: [facility] 12-04-2024 11:36-0500 Heart rate 62 /min Joyce Loyd [employer] DANCER Work Phone: [facility] 12-04-2024 11:36-0500 SaO2% (BldA) [Mass fraction] 99 % Joyce Loyd CHORUS DANCER Work Phone: [facility] 12-04-2024 11:36-0500 Systolic blood pressure 120 mm[Hg] Joyce Loyd CHORUS DANCER Work Phone: [facility] 12-04-2024 11:15-0500 Body height 185.4 cm Nitish Agrawal DO Work Phone: [facility] 12-04-2024 11:15-0500 Body mass index (BMI) [Ratio] 28.23 kg/m2 Nitish Agrawal DO Work Phone: [facility] 12-04-2024 11:15-0500 Body temperature 98.01 [degF] Nitish Agrawal DO Work Phone: [facility] 12-04-2024 11:15-0500 Body weight 97.07 kg Nitish Agrawal DO Work Phone: [facility] 12-04-2024 11:15-0500 Diastolic blood pressure 78 mm[Hg] Nitish Agrawal DO Work Phone: [facility] 12-04-2024 11:15-0500 Heart rate 62 /min Nitish Agrawal DO Work Phone: [facility] 12-04-2024 11:15-0500 SaO2% (BldA) [Mass fraction] 99 % Nitish Agrawal DO Work Phone: [facility] 12-04-2024 11:15-0500 Systolic blood pressure 120 mm[Hg] Nitish Agrawal DO Work Phone: [facility] 12-01-2024 09:09-0500 Body height 185.4 cm Lashaun Petznick DO Work Phone: [facility] 12-01-2024 09:09-0500 Body mass index (BMI) [Ratio] 28.5 kg/m2 Lashaun Petznick DO Work Phone: [facility] 12-01-2024 09:09-0500 Body temperature 98.29 [degF] Lashaun Petznick DO Work Phone: [facility] 12-01-2024 09:09-0500 Body weight 97.98 kg Lashaun Petznick DO Work Phone: [facility] 12-01-2024 09:09-0500 Diastolic blood pressure 82 mm[Hg] Lashaun Petznick DO Work Phone: [facility] 12-01-2024 09:09-0500 Heart rate 83 /min Lashaun Petznick DO Work Phone: [facility] 12-01-2024 09:09-0500 SaO2% (BldA) [Mass fraction] 96 % Lashaun Petznick DO Work Phone: [facility] 12-01-2024 09:09-0500 Systolic blood pressure 140 mm[Hg] Lashaun Petznick DO Work Phone: [facility] 09-01-2024 09:14-0400 Body height 185.4 cm Lashaun Petznick DO Work Phone: [facility] 09-01-2024 09:14-0400 Body mass index (BMI) [Ratio] 29.5 kg/m2 Lashaun Petznick DO Work Phone: [facility] 09-01-2024 09:14-0400 Body temperature 96.6 [degF] Lashaun Petznick DO Work Phone: [facility] 09-01-2024 09:14-0400 Body weight 101.42 kg Lashaun Petznick DO Work Phone: [facility] 09-01-2024 09:14-0400 Diastolic blood pressure 72 mm[Hg] Lashaun Petznick DO Work Phone: [facility] 09-01-2024 09:14-0400 Heart rate 69 /min Lashaun Petznick DO Work Phone: [facility] 09-01-2024 09:14-0400 SaO2% (BldA) [Mass fraction] 96 % Lashaun Petznick DO Work Phone: [facility] 09-01-2024 09:14-0400 Systolic blood pressure 124 mm[Hg] Lashaun Bradley DO Work Phone: [facility] 06-16-2024 15:30-0400 Body height 185.4 cm Nitish Agrawal DO Work Phone: [facility] 06-16-2024 15:30-0400 Body mass index (BMI) [Ratio] 29.42 kg/m2 Nitish Agrawal DO Work Phone: [facility] 06-16-2024 15:30-0400 Body temperature 98.29 [degF] Nitish Agrawal DO Work Phone: [facility] 06-16-2024 15:30-0400 Body weight 101.15 kg Nitish Agrawal DO Work Phone: [facility] 06-16-2024 15:30-0400 Diastolic blood pressure 80 mm[Hg] Nitish Agrawal DO Work Phone: [facility] 06-16-2024 15:30-0400 Heart rate 80 /min Nitish Agrawal DO Work Phone: [facility] 06-16-2024 15:30-0400 Systolic blood pressure 122 mm[Hg] Nitish Agrawal DO Work Phone: [facility] 01-29-2024 14:36-0400 Body height 185.4 cm Martin Elias DO Work Phone: [facility] 01-29-2024 14:36-0400 Body mass index (BMI) [Ratio] 29.69 kg/m2 Martin Elias DO Work Phone: [facility] 01-29-2024 14:36-0400 Body weight 102.06 kg Martin Elias DO Work Phone: [facility] 01-29-2024 14:36-0400 Diastolic blood pressure 70 mm[Hg] Martin Elias DO Work Phone: [facility] 01-29-2024 14:36-0400 Heart rate 86 /min Martin Elias DO Work Phone: [facility] 01-29-2024 14:36-0400 Systolic blood pressure 138 mm[Hg] Martin Elias DO Work Phone: [facility] 05-10-2023 12:10-0400 Body height 185.42 cm Barbara Ellis Other [employer] Other 05-10-2023 12:10-0400 Body mass index (BMI) [Ratio] 30.26 kg/m2 Barbara Ellis Other [employer] Other 05-10-2023 12:10-0400 Body temperature 97.8 [degF] Barbara Ellis Other [employer] Other 05-10-2023 12:10-0400 Body weight 104.06 kg Barbara Ellis Other [employer] Other 05-10-2023 12:10-0400 Respiratory rate 18 /min Barbara Ellis Other [employer] Other 05-10-2023 12:10-0400 SaO2% (BldA) [Mass fraction] 97 % Barbara Ellis Other [employer] Other 01-23-2023 11:01-0400 Body height 185.42 cm Nitish Agrawal Work Phone: [facility] [employer] 250 DO Work Phone: 01-23-2023 11:01-0400 Body mass index (BMI) [Ratio] 30.08 kg/m2 Nitish Agrawal Work Phone: [facility] [employer] 250 DO Work Phone: 01-23-2023 11:01-0400 Body surface area Derived from formula 2.28 m2 Nitish Agrawal Work Phone: [employer] [employer] 250 DO Work Phone: 01-23-2023 11:01-0400 Body weight 103.42 kg Nitish Agrawal Work Phone: [facility] 250 DO Work Phone: 01-23-2023 11:01-0400 Diastolic blood pressure 60 mm[Hg] Nitish Agrawal Work Phone: [facility] 250 DO Work Phone: 01-23-2023 11:01-0400 Heart rate 60 /min Nitish Agrawal Work Phone: [facility] 250 DO Work Phone: 01-23-2023 11:01-0400 Systolic blood pressure 108 mm[Hg] Nitish Agrawal Work Phone: [facility] 250 DO Work Phone: 05-01-2022 09:28-0400 Body height 185.42 cm Nitish Agrawal Work Phone: [facility] 250 DO Work Phone: 05-01-2022 09:28-0400 Body mass index (BMI) [Ratio] 29.42 kg/m2 Nitish Agrawal Work Phone: [facility] 250 DO Work Phone: 05-01-2022 09:28-0400 Body surface area Derived from formula 2.25 m2 Nitish Agrawal Work Phone: [facility] 250 DO Work Phone: 05-01-2022 09:28-0400 Body weight 101.15 kg Nitish Agrawal Work Phone: [facility] 250 DO Work Phone: 05-01-2022 09:28-0400 Diastolic blood pressure 50 mm[Hg] Nitish Agrawal Work Phone: [facility] 250 DO Work Phone: 05-01-2022 09:28-0400 Heart rate 80 /min Nitish Agrawal Work Phone: [facility] 250 DO Work Phone: 05-01-2022 09:28-0400 Systolic blood pressure 80 mm[Hg] Nitish Agrawal Work Phone: [facility] 250 DO Work Phone: 03-01-2022 07:30-0400 40 1 Nitish Agrawal Work Phone: [facility] 600 DO Work Phone: Comment on above: [id number] 11-22-2021 10:31-0500 Body height 182.88 cm Nitish Agrawal Work Phone: [facility] 250 DO Work Phone: 11-22-2021 10:31-0500 Body mass index (BMI) [Ratio] 30.38 kg/m2 Nitish Agrawal Work Phone: [facility] 250 DO Work Phone: 11-22-2021 10:31-0500 Body surface area Derived from formula 2.24 m2 Nitish Agrawal Work Phone: [facility] 250 DO Work Phone: 11-22-2021 10:31-0500 Body weight 101.61 kg Nitish Agrawal Work Phone: [facility] 250 DO Work Phone: 11-22-2021 10:31-0500 Diastolic blood pressure 72 mm[Hg] Nitish Agrawal Work Phone: [facility] 250 DO Work Phone: 11-22-2021 10:31-0500 Heart rate 66 /min Nitish Agrawal Work Phone: [facility] 250 DO Work Phone: 11-22-2021 10:31-0500 Systolic blood pressure 124 mm[Hg] Nitish Agrawal Work Phone: [facility] 250 DO Work Phone: 10-10-2021 10:00-0500 Body height 185.42 cm Jaelyn Espinal Other [employer] Other 10-10-2021 10:00-0500 Body temperature 97.5 [degF] Jaelyn Espinal Other [employer] Other 10-10-2021 10:00-0500 SaO2% (BldA) [Mass fraction] 99 % Jaelyn Espinal Other [employer] Other 09-27-2021 09:48-0500 Body height 182.88 cm Nitish Agrawal Work Phone: [facility] 250 DO Work Phone: 09-27-2021 09:48-0500 Body mass index (BMI) [Ratio] 30.65 kg/m2 Nitish Agrawal Work Phone: [facility] 250 DO Work Phone: 09-27-2021 09:48-0500 Body surface area Derived from formula 2.24 m2 Nitish Agrawal Work Phone: [facility] 250 DO Work Phone: 09-27-2021 09:48-0500 Body weight 102.51 kg Nitish Agrawal Work Phone: [facility] 250 DO Work Phone: 09-27-2021 09:48-0500 Diastolic blood pressure 59 mm[Hg] Nitish Agrawal Work Phone: [facility] 250 DO Work Phone: 09-27-2021 09:48-0500 Heart rate 73 /min Nitish Gordoner Work Phone: [facility] 250 DO Work Phone: 09-27-2021 09:48-0500 Systolic blood pressure 129 mm[Hg] Nitish Roman Tanja Work Phone: [facility] 250 DO Work Phone: 09-27-2021 09:48-0500 46 1 Nitish Agrawal Work Phone: [facility] [address] [place] Work Phone: Comment on above: [id number] Encounters Encounter Date Encounter Type Care Provider Facility Start: 05-15-2025 End: 05-15-2025 Clinisync Result Encounter Generic External Data Provider [facility] External Department Unsolicited Start: 05-15-2025 End: 05-15-2025 Clinisync Result Encounter Generic External Data Provider [...] by physician Svetlana Aponte Admin Room 1 [facility] Comment on above: Arteriosclerotic car diovascular disease (ASCVD); History of coronary artery bypass graft; Status post angioplasty; Angina pectoris; Palpitations; Tachycardia Start: 02-23-2025 End: 02-23-2025 ambulatory [facility] Start: 01-30-2025 End: 01-30-2025 ambulatory [facility] Ambulatory Start: 01-29-2025 End: 01-29-2025 Bamboo flowsheet Latha Caicedo PA Work Phone: [facility] Start: 01-29-2025 End: 01-29-2025 Bamboo flowsheet Latha Caicedo PA Work Phone: [facility] Start: 01-29-2025 End: 01-29-2025 Office outpatient visit 15 minutes Latha Caicedo PA Work Phone: [facility] 230 Comment on above: Anxiety (Primary Dx) Start: 01-29-2025 End: 01-29-2025 ambulatory LATHA CAICEDO Not Available Start: 01-28-2025 End: 01-28-2025 Clinisync Result Encounter Generic External Data Provider [facility] External Department Unsolicited Start: 01-28-2025 End: 01-28-2025 Clinisync Result Encounter Generic External Data Provider [facility] External Department Unsolicited Start: 01-28-2025 End: 01-28-2025 Office outpatient visit 40 minutes [facility] DO Work Phone: [facility] Comment on above: Arteriosclerotic car diovascular disease [...] ischemic cardiomyopathy Start: 01-28-2025 End: 01-28-2025 ambulatory [facility] Ambulatory Start: 12-04-2024 End: 12-04-2024 Bamboo flowsheet Nitish Agrawal DO Work Phone: [facility] Start: 12-04-2024 End: 12-04-2024 Bamboo flowsheet Nitish Agrawal DO Work Phone: [facility] Start: 12-04-2024 End: 12-04-2024 Assay of hemosiderin, quant Joyce Loyd CHORUS DANCER Work Phone: [facility] Start: 12-04-2024 End: 12-04-2024 Patient encounter procedure Joyce Loyd CHORUS DANCER Work Phone: [facility] 230 Comment on above: Routine [...] 25 minutes Nitish Agrawal DO Work Phone: [facility] 230 Comment on above: Hypothyroidism (acqu ired) (CMS/HCC) (Primary Dx) Start: 12-04-2024 End: 12-04-2024 ambulatory JOYCE LOYD Not Available Start: 12-01-2024 End: 12-01-2024 Office outpatient visit 25 minutes Lashaun Bradley DO Work Phone: [facility] [phone] Comment on above: Type 2 diabetes lisandro itus with other circulatory complications (CMS/HCC) (Primary Dx); Type 2 diabetes mellitus with stage 3a chronic kidney disease, without long-term current use of insulin (HCC) (CMS/HCC); Preventative health care; Screening for prostate cancer Start: 12-01-2024 End: 12-01-2024 Patient encounter status Lashaun Bradley DO Work Phone: [facility] Start: 12-01-2024 End: 12-01-2024 ambulatory LASHAUN Dimas PETYELENAICK Not Available Start: 09-01-2024 End: 09-01-2024 Office outpatient visit 25 minutes Lashaun Tamayoick DO Work Phone: [facility] 488 Comment on above: Type 2 diabetes lisandro itus with other circulatory complications (CMS/HCC) Start: 09-01-2024 End: 09-01-2024 ambulatory LASHAUN Judie PETZNICK Not Available Start: 08-29-2024 End: 08-29-2024 Telephone encounter Lashaun Frederickyelenabrandan DO Work Phone: [facility] 230 Start: 06-27-2024 End: 06-27-2024 Bamboo flowsheet Bari Doran PA Work Phone: [facility] Start: 06-27-2024 End: 06-27-2024 Bamboo flowsheet [facility]ng [facility] Work Phone: [facility] Start: 06-27-2024 End: 06-27-2024 Office outpatient new 45 minutes Bari [facility] Work Phone: [facility] Comment on above: Other seborrheic matthew matitis (Primary Dx); Acrochordon; Other specified erythematous conditions; Inflamed seborrheic keratosis Start: 06-27-2024 End: 06-27-2024 [facility] Start: 06-16-2024 End: 06-16-2024 ambulatory NITISH AGRAWAL Not Available Start: 06-16-2024 End: 06-16-2024 Office outpatient visit 25 minutes Nitish Agrawal DO Work Phone: [facility] 230 Comment on above: Hypothyroidism [...] End: 01-29-2024 Office outpatient visit 25 minutes Maritn Elias DO Work Phone: [facility] Comment on above: Arteriosclerotic car diovascular disease (ASCVD); History of coronary artery bypass graft; Multiple vessel coronary artery disease; Status post angioplasty; Hypertension, unspecified type; Mixed hyperlipidemia; Other specified diabetes mellitus with other specified complication, with long-term current use of insulin ([facility]); BMI 29.0-29.9,adult; Never smoked tobacco Start: 05-10-2023 End: 05-10-2023 ambulatory Barbara Ellis Other [employer] Other Start: 05-10-2023 Office outpatient vi sit 15 minutes Barbara Ellis [facility] Start: 03-19-2023 End: 03-20-[address] NITISH AGRAWAL Facility:[facility]1 Start: 03-05-2023 Rx Renewal Nitish Agrawal Work Phone: [facility] 250 DO Work Phone: Start: 03-05-2023 End: 03-06-[address] NITISH AGRAWAL Facility:[facility]1 Start: 02-13-2023 End: 02-14-[address] NITISH AGRAWAL Facility:[facility]1 Start: 01-23-2023 Office outpatient vi sit 15 minutes Nitish Agrawal Work Phone: [facility] 250 DO Work Phone: Start: 01-23-[address] Nitish Agrawal Facility:[id number] Start: 11-28-2022 End: 11-29-[address] NITISH AGRAWAL Facility:[facility]1 Start: 11-13-2022 End: 11-14-2022 ambulatory NISHA FARRAR Facility:[facility]1 Start: 10-24-2022 End: 10-25-2022 ambulatory NISHA FARRAR Facility:[facility]1 Start: 07-18-2022 End: 07-19-2022 ambulatory NISHA FARRAR Facility:[facility]1 Start: 07-03-2022 End: 07-04-2022 ambulatory NISHA FARRAR Facility:[facility]1 Start: 06-20-2022 End: 06-21-2022 ambulatory NISHA FARRAR Facility:[facility]1 Start: 06-13-2022 Encounter for preprocedural laboratory examination NISHA FARRAR [facility] Start: 06-12-2022 End: 06-12-2022 ambulatory NISHA FARRAR [...] sit 25 minutes Nitish Agrawal Work Phone: [facility] 250 DO Work Phone: Start: 05-01-[address] Helga Flores Facility:[id number] Start: 04-18-2022 End: 04-19-2022 ambulatory NISHA FARRAR Facility:[facility]1 Start: 04-14-2022 End: 04-15-2022 ambulatory NISHA FARRAR Facility:[facility]1 Start: 03-30-2022 End: 03-31-[address] NITISH AGRAWAL Facility:[facility]1 Start: 03-22-2022 End: 03-24-2022 Evaluation and management of inpatient SHAIKH Magui GOMEZ Facility:H1 Start: 03-22-2022 End: 03-23-[address] NITISH AGRAWAL Facility:[facility]1 Start: 03-14-[address] Nitish Agrawal Facility:[id number] Start: 03-14-2022 Patient encounter procedure Nitish Agrawal Work Phone: [facility] 250 DO Work Phone: Start: [facility]-14-2022 [facility]: Margaux Castillo, Status: Pen, Time: 12:00 PM Nitish Agrawal Work Phone: [facility] 250 DO Work Phone: Start: 03-14-2022 End: 03-15-2022 ambulatory Margaux Castillo Facility:[facility] Start: 03-13-2022 Chart Update Nitish Agrawal Work Phone: [facility] 250 DO Work Phone: Start: 03-10-2022 Chart Update Nitish Agrawal Work Phone: [facility] 600 DO Work Phone: Start: 03-10-2022 End: 03-10-2022 ambulatory Nitish Agrawal Facility:[facility] Start: 12-14-2021 Rx Renewal Nitish Agrawal Work Phone: [facility] 250 DO Work Phone: Start: 11-22-2021 Office outpatient vi sit 25 minutes Nitish Agrawal Work Phone: [facility] 250 DO Work Phone: Start: 11-09-2021 SURGNON, Provider: Martin Elias, Status: Pen, Time: 1:00 PM Nitish Agrawal Work Phone: [facility] 250 DO Work Phone: Start: 11-08-2021 Chart Update Nitish Agrawal Work Phone: [facility] 250 DO Work Phone: Start: 10-18-2021 Telephone encounter Nitish luz Work Phone: [facility] 600 DO Work Phone: Start: 10-14-2021 Chart Update Nitish Agrawal Work Phone: [facility] 600 DO Work Phone: Start: 10-12-2021 Patient encounter procedure Nitish Agrawal Work Phone: [facility] [address] [place] Work Phone: Start: 10-10-2021 End: 10-10-2021 ambulatory Jaelyn Espinal Other [facility] [employer] Other Start: 10-10-2021 Office outpatient vi sit 15 minutes Jaelyn Espinal [facility] Start: 09-28-2021 AUDIT Nitish Agrawal Work Phone: [facility] [address] [place] Work Phone: Start: 09-27-2021 Office outpatient vi sit 25 minutes Nitish Agrawal Work Phone: [facility] 250 DO Work Phone: Start: 04-11-2017 End: 04-12-2017 Ambulatory [id number] MAILE AGRAWAL Facility:[facility] Procedures Date Procedure Procedure Detail Performing Clinician Start: 05-15-2025 XR CHEST 2V Generic Ex ternal Data Provider Start: 04-22-2025 XR FOOT LT MIN 3V [...] History of coronary artery bypass graft Martin Sally Elias Work Phone: History of coronary artery bypass [...] [address] [place] [address] Joyce Loyd, CHORUS DANCER [address] [place] [address] [facility] Start: 12-04-2025 Medicare Annual Wellness (AWV) Medicare Annual Wellness (AWV) [facility] Healthcare Start: 12-01-2025 Lipid panel Lipid Panel [facility] Start: 12-01-2025 Thyroid stimulating hormone measurement TSH Level [facility] Start: 12-01-2025 Urine screening for protein Diabetes: Urine Protein Screening [facility] Start: 09-21-2025 End: 09-21-2025 Patient encounter procedure 09/21/2025 8:30 AM EST Office Visit [facility] [address] [place] [phone] Lashaun Bradley, DO [address] [place] [address] [facility] Start: 08-04-2025 End: 08-04-2025 Patient encounter procedure 08/04/2025 11:10 AM EDT Office Visit [facility] [address] [place] [id number] Martin Elias, DO [address] [place] [address] [facility] Start: 07-06-2025 Influenza vaccination Influenza Vaccine (#1) [facility] Start: 06-27-2025 Hemoglobin A1c measurement Diabetes: Hemoglobin A1C [facility] Start: 03-27-2025 Screening for malignant neoplasm of [facility] Start: 03-27-2025 End: 03-27-2025 Patient encounter procedure 03/27/2025 8:45 AM EDT Office Visit [facility] [address] [place] [phone] Lashaun Bradley, DO [address] [place] [address] [facility] 230 Start: 03-12-2025 End: 03-12-2025 Patient encounter procedure 03/12/2025 8:00 AM EDT Office Visit [facility] [address] [place] [phone] Latha Caicedo PA [address] [place] [address] [facility] 230 Start: 03-01-2025 Hemoglobin A1c measurement Diabetes: Hemoglobin A1C [facility] Start: 02-01-2025 COVID-19 Vaccine ( season) COVID-19 Vaccine ( season) [facility] Start: 01-29-2025 End: 01-29-2025 Patient encounter procedure 01/29/2025 8:40 AM EDT Office Visit [facility] [address] [place] [phone] Latha Caicedo PA [address] [place] [address] Arrived [facility] 230 Comment on above: Arrived Start: 01-28-2025 End: 01-28-2026 Basic metabolic 2000 panel - Serum or Plasma Basic Metabolic Panel Lab Routine Arteriosclerotic cardiovascular disease (ASCVD) Expected: 01/28/2025 (Approximate), Expires: 01/28/2026 [facility] Work Phone: Comment on above: Expected: 01/28/2025 (Approximate), Expi res: 01/28/2026 Start: 01-28-2025 End: 01-28-2026 C reactive protein [Mass/volume] in Serum or Plasma by High sensitivity method C-Reactive Protein, High Sensitivity Lab Routine Arteriosclerotic cardiovascular disease (ASCVD) Expected: 01/28/2025 (Approximate), Expires: 01/28/2026 [facility] Work Phone: Comment on above: Expected: 01/28/2025 (Approximate), Expi res: 01/28/2026 Start: 01-28-2025 End: 01-28-2026 Holter monitor study Holter Or Event Tool [facility] Routine Angina pectoris Palpitations Tachycardia Expected: 01/28/2025, Expires: 01/28/2026 [facility] Service Area Work Phone: Comment on above: Expected: 01/28/2025, Expires: Start: 01-28-2025 End: 01-28-2026 Natriuretic peptide B [Mass/volume] in Blood B-Type Natriuretic Peptide Lab Routine Arteriosclerotic cardiovascular disease (ASCVD) ACC/AHA stage C congestive heart failure due to ischemic cardiomyopathy Expected: 01/28/2025 (Approximate), Expires: 01/28/2026 [facility] Work Phone: Comment on above: Expected: 01/28/2025 (Approximate), Expi res: 01/28/2026 Start: 01-28-2025 End: 01-28-2027 NM Heart Perfusion W stress and W radionuclide IV Nuclear Stress Test Cardiac Nuclear Medicine Routine 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 Status post angioplasty Angina pectoris Palpitations Tachycardia Expected: 01/28/2025 (Approximate), Expires: 01/28/2027 [facility] Work Phone: Comment on above: Expected: 01/28/2025 (Approximate), Expi res: 01/28/2027 Start: 01-28-2025 End: 01-28-2025 Patient encounter procedure 01/28/2025 9:50 AM EDT Office Visit [facility] [address] [place] [phone] Martin Elias, DO [address] [place] [address] [facility] Start: 12-04-2024 End: 12-04-2024 Patient encounter procedure 12/04/2024 11:20 AM EST Office Visit [facility] [address] [place] [phone] Nitish Agrawal, [address] [place] [address] Arrived [facility] 230 Comment on above: Arrived Start: 12-02-2024 Hemoglobin A1c measurement Diabetes: Hemoglobin A1C [facility] Healthcare Start: 12-01-2024 End: 12-01-2025 Prostate specific Ag [Mass/volume] in Serum or Plasma PSA Lab Routine Screening for prostate cancer Expected: 12/01/2024 (Approximate), Expires: 12/01/2025 [facility] Comment on above: Expected: 12/01/2024 (Approximate), Expi res: 12/01/2025 Start: 12-01-2024 End: 12-01-2024 Patient encounter procedure 12/01/2024 9:15 AM EST Office Visit [facility] [address] [place] [phone] Lashaun Bradley, DO [address] [place] [address] [facility] Start: 09-02-2024 Hemoglobin A1c measurement Diabetes: Hemoglobin A1C [facility] Start: 09-01-2024 End: 09-01-2024 Patient encounter procedure 09/01/2024 9:15 AM EDT Office Visit [facility] [address] [place] [phone] Lashaun Bradley, DO [address] [place] [address] [facility] 230 Start: 08-09-2024 Urine screening for protein Diabetes: Urine Protein Screening [facility] Start: 07-06-2024 Influenza vaccination Influenza Vaccine (#1) [facility] Start: 06-27-2024 Glaucoma screening Diabetes: Retinopathy Screening [facility] Start: 06-27-2024 End: 06-27-2024 Patient encounter procedure 06/27/2024 8:50 AM EDT Office Visit [facility] [address] [place] [phone] Bari Chowdhury PA [address] [place] [phone] Arrived [facility] Comment on above: Arrived Start: 01-29-2024 End: 01-28-2025 Alanine aminotransferase [Enzymatic activity/volume] in Serum or Plasma by With P-5'-P Alanine Aminotransferase Lab Routine 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 Multiple vessel coronary artery disease Hypertension, unspecified type Mixed hyperlipidemia Expected: 01/29/2024 (Approximate), Expires: 01/28/2025 [facility] Work Phone: Comment on above: Expected: 01/29/2024 (Approximate), Expi res: 01/28/2025 Start: 01-29-2024 End: 01-28-2025 Aspartate aminotransferase [Enzymatic activity/volume] in Serum or Plasma by With P-5'-P Aspartate Aminotransferase Lab Routine 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 Multiple vessel coronary artery disease Hypertension, unspecified type Mixed hyperlipidemia Expected: 01/29/2024 (Approximate), Expires: 01/28/2025 [facility] Work Phone: Comment on above: Expected: 01/29/2024 (Approximate), Expi res: 01/28/2025 Start: 01-29-2024 End: 01-28-2025 C reactive protein [Mass/volume] in Serum or Plasma by High sensitivity method C-Reactive Protein, High Sensitivity Lab Routine 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 Multiple vessel coronary artery disease Hypertension, unspecified type Mixed hyperlipidemia Expected: 01/29/2024 (Approximate), Expires: 01/28/2025 [facility] Work Phone: Comment on above: Expected: 01/29/2024 (Approximate), Expi res: 01/28/2025 Start: 01-29-2024 End: 01-28-2025 Lipid 1996 panel - Serum or Plasma Lipid Panel Lab Routine 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 Multiple vessel coronary artery disease Hypertension, unspecified type Mixed hyperlipidemia Expected: 01/29/2024 (Approximate), Expires: 01/28/2025 [facility] Service Area Work Phone: Comment on above: Expected: 01/29/2024 (Approximate), Expi res: 01/28/2025 Start: 01-24-2024 FUV, Provider: Martin Elias, Status: Pen, Time: 9:30 AM FUV, Provider: Martin Elias, Status: Fidencio, Time: 9:30 AM [facility] 250 DO Work Phone: Start: 01-23-2023 Medicare Annual Wellness (AWV) Medicare Annual Wellness (AWV) [facility] Start: 11-16-2022 FUV, Provider: Martin Elias, Status: Pen, Time: 10:20 AM FUV, Provider: Martin Elias, Status: Pen, Time: 10:20 AM -[facility] 250 DO Work Phone: Start: 08-25-2022 Pneumococcal Vaccine: 65+ Years (2 - PCV) Pneumococcal Vaccine: 65+ Years (2 - PCV) [facility] Start: 08-25-2022 Pneumococcal Vaccine: 65+ Years (2 of 2 - PCV) Pneumococcal Vaccine: 65+ Years (2 of 2 - PCV) [facility] Start: 05-29-2022 FUV, Provider: Helga Flores, Status: Pen, Time: 10:15 AM FUV, Provider: Helga Flores, Status: Pen, Time: 10:15 AM -[facility] 250 DO Work Phone: Start: 05-01-2022 FUV, Provider: Helga Flores, Status: Pen, Time: 9:30 AM FUV, Provider: Helga Flores, Status: Pen, Time: 9:30 AM -[facility] 600 DO Work Phone: Start: 03-21-2022 FUV, Provider: Helga Flores, Status: Pen, Time: 9:15 AM FUV, Provider: Helga Flores, Status: Pen, Time: 9:15 AM -[facility] 250 DO Work Phone: Start: 03-14-2022 SURGNON, Provider: Margaux Castillo, Status: Pen, Time: 12:00 PM SURGNONUH, Provider: Margaux Castillo, Status: Pen, Time: 12:00 PM -[facility] 600 DO Work Phone: Start: 11-09-2021 SURGNONUH, Provider: Martin Elias, Status: Pen, Time: 1:00 PM SURGNONUH, Provider: Martin Elias, Status: Pen, Time: 1:00 PM -[facility] 600 DO Work Phone: Start: 10-12-2021 STRESS NUC, Provider: [place] MCKEON NUCLEAR [id number], Status: Pen, Time: 7:30 AM STRESS NUC, Provider: [place] MCKEON NUCLEAR [id number], Status: Pen, Time: 7:30 AM [facility] 250 DO Work Phone: Start: 02-07-2006 Zoster Vaccines (1 of 2) Zoster Vaccines (1 of 2) [facility] Start: 02-07-1978 DTaP/Tdap/Td Vaccines (1 - Tdap) DTaP/Tdap/Td Vaccines (1 - Tdap) [facility] Start: 02-07-1975 Urine screening for protein Diabetes: Urine Protein Screening [facility] Start: 02-07-1974 Hepatitis C screening Hepatitis C Screening [facility] Start: 02-07-1966 Diabetic foot examination Diabetes: Foot Exam [facility] Start: 02-07-1966 Glaucoma screening Diabetes: Retinopathy Screening [facility] Start: 1956 Creatinine measurement Creatinine Level [facility] Start: 1956 Echocardiography Echocardiogram [facility] Start: 1956 Hemoglobin A1c measurement Diabetes: Hemoglobin A1C [facility] Start: 1956 Lipid panel Lipid Panel [facility] Start: 1956 Medicare Annual Wellness Visit Medicare Annual Wellness Visit (AWV) [facility] Start: 1956 Potassium measurement Potassium Level [facility] Start: 1956 Screening for malignant neoplasm of colon [facility] Start: 1956 Thyroid stimulating hormone measurement TSH Level [facility] CBC W Auto Different ial panel - Blood CBC and differential Lab Routine Preventative health care Ordered: 12/01/2024 [facility] Comment on above: Ordered: 12/01/2024 Comprehensive metabo lic 2000 panel - Serum or Plasma Comprehensive metabolic panel Lab Routine Preventative health care Ordered: 12/01/2024 [facility] Work Phone: Comment on above: Ordered: 12/01/2024 Lipid 1996 panel - S mariely or Plasma Lipid panel Lab Routine Preventative health care Ordered: 12/01/2024 [facility] Comment on above: Ordered: 12/01/2024 Microalbumin/Creatin ine panel in random Urine Microalbumin / creatinine urine ratio Lab Routine Type 2 diabetes mellitus with other circulatory complications (CMS/HCC) Ordered: 12/01/2024 [facility] Comment on above: Ordered: 12/01/2024 Thyrotropin [Units/volume] in Serum or Plasma TSH Lab Routine Preventative health care Ordered: 12/01/2024 [facility] Comment on above: Ordered: 12/01/2024 Immunizations Immunization Date Immunization Notes Care Provider Ele mcneal 12-04-2024 Pneumococcal Conjuga te PCV 20 Joyce Loyd [employer]ER Work Phone: [facility] 08-04-2024 influenza, high dose seasonal, preservative-free Lashaun Tamayobrandan DO Work Phone: [facility] 08-04-2024 influenza virus vacc ine, unspecified formulation Generic Provider [facility] 08-21-2023 Influenza, Seasonal, Quadrivalent, Adjuvanted [facility] Work Phone: [facility] 08-21-2023 influenza virus vacc ine, unspecified formulation [facility] PA Work Phone: [facility] 08-09-2023 RSV, recombinant, protein subunit RSVpreF, adjuvant reconstitu, 120mcg/0.5mL, PF (Arexvy) [facility] Work Phone: [facility] 08-02-2022 Fluzone High-Dose Quadrivalent 0.7 ML Intramuscular Suspension Prefilled Syringe Nitish Agrawal Work Phone: [facility] 250 DO Work Phone: 08-02-2022 Pfizer COVID-19 Vac Bivalent 30 MCG/0.3ML Intramuscular Suspension Nitish Agrawal Work Phone: [facility] 09-02-2021 Pfizer-BioNTech COVI D-19 Vacc 30 MCG/0.3ML Intramuscular Suspension Nitish Agrawal Work Phone: [facility] 08-25-2021 Fluad Quadrivalent 0 .5 ML Intramuscular Prefilled Syringe Nitish [facility]rawal [facility] DO Work Phone: 08-25-2021 pneumococcal polysaccharide vaccine, 23 valent Nitish Agrawal Work Phone: [facility] 02-06-2021 [facility] COV[facility] D-19 Vacc 30 MCG/0.3ML Intramuscular Suspension Nitish Agrawal Work Phone: [facility] 01-16-2021 Pfizer-BioNTech COVI D-19 Vacc 30 MCG/0.3ML Intramuscular Suspension Nitish Agrawal Work Phone: [facility] 11-22-2020 zoster vaccine recombinant Nitish Agrawal Work Phone: [facility] 250 DO Work Phone: 11-22-2020 zoster vaccine, unspecified formulation Martin Elias DO Work Phone: [facility] Work Phone: 09-09-2020 influenza, high dose seasonal, preservative-free Nitish Agrawal Work Phone: [facility] 250 DO Work Phone: 09-05-2020 influenza virus vacc ine, unspecified formulation Nitish Agrawal Work Phone: [facility] 250 DO Work Phone: 09-05-2020 influenza, seasonal, injectable Bari HARRIS Work Phone: [facility] 08-29-2020 influenza, injectabl e, quadrivalent, preservative free Nitish Agrawal Work Phone: [facility] 250 DO Work Phone: 08-29-2020 zoster vaccine recombinant Nitish Agrawal Work Phone: [facility] 250 DO Work Phone: 08-29-2020 zoster vaccine, unspecified formulation Martin Elais DO Work Phone: [facility] Work Phone: 09-07-2019 influenza virus vacc ine, unspecified formulation Nitish Agrawal Work Phone: [facility] 250 DO Work Phone: 08-26-2019 Influenza, injectabl e, Madin [place] Canine Kidney, preservative free, quadrivalent Nitish Agrawal Work Phone: [facility] 250 DO Work Phone: 11-05-2017 pneumococcal polysaccharide vaccine, 23 valent Nitish Agrawal Work Phone: [facility] 09-18-2017 influenza, injectabl e, quadrivalent, preservative free Nitish Agrawal Work Phone: [facility] 250 DO Work Phone: 08-06-2017 influenza, high dose seasonal, preservative-free Nitish Agrawal Work Phone: [facility] 250 DO Work Phone: 08-05-2016 influenza virus vacc ine, unspecified formulation Nitish Agrawal Work Phone: [facility] 250 DO Work Phone: 07-24-2011 influenza, seasonal, injectable, preservative free Nitish Agrawal Work Phone: [facility] 250 DO Work Phone: 11-05-2010 influenza virus vacc ine, unspecified formulation Nitish Argawal Work Phone: [facility] 250 DO Work Phone: 08-05-2010 pneumococcal polysaccharide vaccine, 23 valent Nitish Agrawal Work Phone: [facility] 250 DO Work Phone: 08-13-2008 influenza, seasonal, injectable, preservative free Nitish Agrawal Work Phone: [facility] 250 DO Work Phone: influenza virus vacc ine, unspecified formulation Nitish Roman Tanja Work Phone: -[facility] 250 DO Work Phone: Comment on above: Sep 2010 Payers Date Payer Category Payer Self-pay 2021 Medicare [id number] 2021 Private Health Insurance [employer] Member Subscriber Plan / Payer (Effective 2021-Present) Name: Janice Ford Relation to Subscriber: Self Name: [place] Janice Kilgore Payer ID: Not on file Type: Not on file Address: [place] [id number] 2021 Unknown 2017 Unknown [id number] 1958 Medicare [id number] 1959 Unknown [id number] 2..840.1.980580.19 1956 Unknown [id number] 2.840.1.330319.3.579.2. 356 1956 Unknown [id number] 2.16840.1.814128.3.579.2. 356 1956 Unknown [id number] 2.16840.1.887788.3.579.2. 356 1956 Unknown [id number] 2.16840.1.870132.3.579.2. 593 1956 Unknown [id number] 2.16840.1.449497.3.579.2. 593 1956 Unknown [id number] 2.16840.1.832588.3.579.2. 593 1956 Unknown [id number] 2.16.840.1.871007.3.579.2. 593 1956 Unknown [id number] 2.16.840.1.519539.3.579.2. 593 1956 Unknown [id number] 2.16.840.1.835044.3.579.2. 593 1956 Unknown [id number] 2.16.840.1.895857.3.579.2. 593 1956 Unknown [id number] 2.16.840.1.688939.3.579.2. 593 1956 Unknown [id number] 2.16.840.1.109386.3.579.2. 593 1956 Unknown [id number] 2.16.840.1.655217.3.579.2. 593 1956 Unknown [id number] 2.16.840.1.343257.3.579.2. 593 1956 Unknown [id number] 2.16.840.1.409722.3.579.2. 593 1956 Unknown [id number] 2.16.840.1.057481.3.579.2. 593 1956 Unknown [id number] 2.16.840.1.873308.3.579.2. 593 1956 Unknown [id number] 2.16.840.1.675233.3.579.2. 593 1956 Unknown [id number] 2.16.840.1.063691.3.579.2. 593 1956 Unknown [id number] 2.16.840.1.327800.3.579.2. 593 1956 Unknown [id number] 2.16.840.1.458601.3.579.2. 593 1956 Unknown [id number] 2.16.840.1.262019.3.579.2. 593 1956 Unknown [id number] 2.16.840.1.493091.3.579.2. 593 1956 Unknown [id number] 2.16.840.1.316161.3.579.2. 1246 1956 Unknown [id number] 2.16.840.1.677006.3.579.2. 1245 1956 Unknown [id number] 2.16840.1.110754.3.579.2. 1245 1956 Unknown [id number] 2.840.1.994598.3.579.2. 1245 1956 Unknown [id number] 2.840.1.889665.3.579.2. 1246 1956 Unknown [id number] 2.840.1.339657.3.579.2. 1258 1956 Unknown [id number] 2.840.1.785906.3.579.2. 1258 1956 Unknown [id number] 2.840.1.309952.3.579.2. 1258 1956 Unknown [id number] 2.840.1.923325.3.579.2. 1259 1956 Unknown [id number] 2.840.1.681535.3.579.2. 1258 1956 Unknown [id number] 2.840.1.154011.3.579.2. 1258 1956 Unknown [id number] 2.16840.1.404282.3.579.2. 1258 1956 Unknown [id number] 2.16.840.1.988264.3.579.2. 1258 1956 Unknown [id number] 2.16840.1.728815.3.579.2. 1259 1956 Unknown [id number] 2.16.840.1.282919.3.579.2. 1259 1956 Unknown [id number] 2.16.840.1.788589.3.579.2. 1244 1956 Unknown [id number] 2.16.840.1.295877.3.579.2. 1244 Unknown [id number] 2.16.840.1.167397.3.579.2. 531 Unknown [id number] 2.16.840.1.688392.3.579.2. 531 Social History Date Type Detail Facility Start: 01-29-2024 End: 03-27-2025 Caffeine use Caffeine use -[facility] 250 DO Work Phone: Comment on above: occassional; Start: 01-29-2024 End: 03-27-2025 Sex Assigned At [facility] Other Start: 01-29-2024 End: 06-16-2024 Tobacco smoking status NHIS Never smoked tobacco [facility] Start: 01-29-2024 End: 06-16-2024 Tobacco use and exposure Smokeless tobacco non-user [facility] Work Phone: Start: 01-29-2024 End: 03-27-2025 Alcohol intake Lifetime non-drinker (finding) [facility] Work Phone: Start: 1955 Sex Assigned At Not on file [facility] Work Phone: Start: 01-19-2024 End: 01-30-2025 Exposure to SARS-CoV-2 (event) Not sure [facility] How often to you hav e a drink containing alcohol? Never [facility] How many standard drinks containing alcohol do you have on a typical day? Patient does not drink [facility] Start: 1955 Sex assigned at Male [facility] Start: 09-23-2024 Gender identity Identifies as male gender (finding) [facility] Work Phone: NEGATED: Highlighted rowStart: PAULINO History of tobacco use Passive smoker [facility] Medical Equipment Procedure Code Equipment Code Equipment Origin al Text Equipment Identifier Dates Fsbs daily [id number] Start: 03-03-2024 Fsbs daily [id number] Start: 03-03-2024 Clinical Notes 10-08-2017 to 01-29-2025 Latha Caicedo, PA - 01/29/2025 8:40 AM EDTMartin Elias, DO - 01/28/2025 9:50 AM EDTPatient Shayy Agrawal, DO - 12/04/2024 11:20 AM Trini [...] around large groups. Pt was told by Payroll Director he wants to have a stress test [...] questions or concerns. documented in this encounter [facility] 01-28-2025 History of Presen t [...] By signing my name below, I, Mandi Vincent LPN, Micahibkvng attest that this documentation has been prepared [...] discussion and plan. documented in this encounter [facility] Work Phone: 01-28-2025 Instructions Mandi [...] instructions on exercise. documented in this encounter [facility] Work Phone: 12-04-2024 History of [...] FOR 90 DAYS Blood Glucose Monitoring Suppl ([employer] Verio Flex System) w/Device kit No dose, [...] fenofibrate (TRICOR) 145 mg, Daily glucose blood (HolganixTouch Verio) test strip Fsbs daily hydrOXYzine HCl (ATARAX) 50 mg, Oral, 2 times daily PRN isosorbide mononitrate ER (IMDUR) 60 mg, Daily levothyroxine (SYNTHROID, LEVOXYL) 200 mcg, Oral, Daily metFORMIN XR (GLUCOPHAGE-XR) 500 mg, Oral, 2 times daily nitroglycerin (NITROSTAT) 0.4 mg, Every 5 min PRN OneTouch Delica Lancets 33G [facility]sbs daily Ozempic (2 MG/DOSE) 2 mg, [...] (H) 0.70 - 1.30 mg/dL [facility] EGFR-AF [place] >60 >=60 mL/min/1.73m 2 TBH EGFR-NON AF [place] 51 (L) >=60 mL/min/1.73m 2 BUN [...] patient today. documented in this encounter [facility] 12-01-2024 History of Presen t [...] 2 diabetes mellitus with other circulatory complications ([facility]) Anemia, unspecified Atherosclerotic heart disease of [place] coronary artery without angina pectoris ([facility]) Gastro-esophageal reflux disease without esophagitis Osteoarthritis of knee, unspecified Stage 3a chronic kidney disease (CKD) ([facility]) Hypertension ([facility]) Hyperlipidemia ([facility]) History of coronary artery bypass graft Type 2 diabetes mellitus with stage 3a chronic kidney disease, without long-term current use of insulin ([facility]) ([facility]) Social History Tobacco Use Smoking status: Never [...] FOR 90 DAYS BLOOD GLUCOSE MONITORING SUPPL ([email or web address] VERIO FLEX SYSTEM) W/DEVICE KIT CARVEDILOL (COREG) [...] by mouth in the morning. GLUCOSE BLOOD (TargetCast NetworksTOUCH VERIO) TEST STRIP Fsbs daily ISOSORBIDE MONONITRATE [...] patient today. documented in this encounter [facility] 09-01-2024 History of Presen t illness Narrative Associated Problem(s): Type 2 diabetes mellitus with other circulatory complications ([facility]) During the appointment today all pertinent labs, [...] (CMS/HCC) Anemia, unspecified Atherosclerotic heart disease of [place] coronary artery without angina pectoris (CMS/HCC) Gastro-esophageal reflux disease without esophagitis Osteoarthritis of knee, unspecified Stage 3a chronic kidney disease (CKD) (CMS/HCC) Hypertension (CMS/HCC) Hyperlipidemia (CMS/HCC) History of coronary artery bypass graft Type 2 diabetes mellitus with stage 3a chronic kidney disease, without long-term current use of insulin (HCC) ([facility]) Social History Tobacco Use Smoking status: Never [...] FOR 90 DAYS BLOOD GLUCOSE MONITORING SUPPL ([email or web address] VERIO FLEX SYSTEM) W/DEVICE KIT CARVEDILOL (COREG) [...] by mouth in the morning. GLUCOSE BLOOD (AccelaloxUCH VERIO) TEST STRIP Fsbs daily ISOSORBIDE MONONITRATE [...] (five) minutes if needed for chest pain. [employer]Cast NetworksTOUCH DELICA LANCETS 33G [facility] Fsbs daily Modified Medications No medications on file Discontinued Medications SEMAGLUTIDE (OZEMPIC, 1 MG/DOSE,) 4 MG/3ML SOLUTION PEN-INJECTOR Inject 1 mg under the skin 1 (one) time per week I have reviewed and reconciled the history and medication list with the patient today. documented in this encounter [facility] 08-29-2024 Telephone encounter Note LVM appointment reminder [facility] 08-29-2024 Miscellaneous Notes LVM appointment reminder documented in this encounter [facility] 06-27-2024 History of Presen t [...] (2) Chest - Medial (Center), Left Axilla Bono and brown stuck on verrucous scaly papule [...] limited to risks of scarring, darker or ceo ziff davis pigmentary changes, recurrence, incomplete removal and infection. [...] 1 year documented in this encounter [facility] 06-16-2024 History of Presen t [...] FOR 90 DAYS Blood Glucose Monitoring Suppl ([employer] Verio Flex System) w/Device kit No dose, [...] fenofibrate (TRICOR) 145 mg, Daily glucose blood (Stretchuch Verio) test strip Fsbs daily isosorbide mononitrate ER (IMDUR) 60 mg, Daily levothyroxine (SYNTHROID, LEVOXYL) 200 mcg, Oral, Daily metFORMIN XR (GLUCOPHAGE-XR) 500 mg, Oral, 2 times daily nitroglycerin (NITROSTAT) 0.4 mg, Every 5 min PRN [employer] Delica Lancets 33G misc Fsbs daily Ozempic [...] on file. documented in this encounter [facility] 01-29-2024 History of Presen t [...] complication, with long-term current use of insulin ([facility]) 8. BMI 29.0-29.9,adult 9. Never smoked tobacco [...] discussion and plan. documented in this encounter [facility] Work Phone: 01-29-2024 Instructions Sheri [...] instructions on exercise. documented in this encounter [facility] Work Phone: 05-10-2023 Evaluation note [...] the ER for worsening symptoms or concerns. [facility] Other 01-24-2023 NotePROCEDURE: XR FOOT RT MIN [...] Electronically authenticated by: HUSAM GAMEZ Date: 2022-11-28 15:28[facility]08-08-2022 NotePROCEDURE: XR FOOT RT MIN 3 VIEWS [...] authenticated by: ROSA MARIA MATOS Date: 2022-06-12 21:05[facility]08-02-2022 NotePROCEDURE: XR FOOT RT MIN 3 VIEWS [...] Electronically authenticated by: HUSAM GAMEZ Date: 2022-06-06 19:33[facility]05-19-2022 NotePROCEDURE: XR FOOT RT MIN 3 VIEWS [...] authenticated by: HUSAM GAMEZ Date: 2022-03-23 11:10[id number]* Encounter Date Diagnosis Assessment Notes Treatment Notes Treatment Clinical Notes Oct, Sore throat (ICD-10 - J02.9) symptoms appear viral in nature. Reassurance given. . Saltwater gargles may help with pain and disrupts bacteria and viral infections. Continue tylenol/ibu for general discomfort. Encourage fluids. Symptoms should improve within the next 4-7 days. [facility] Other 12-04-2017 History general Narrative - Reported* Type Description Date Medical History Diabetes mellitus Medical History Hyperlipidemia Medical History Hypothyroidism Surgical History CABG 1992 Surgical History cardiac stent 2002 Surgical History right knee arthroplasty 10/08/20 Surgical History left knee arthroplasty 03/2016 Surgical History Foot Surgery Hospitalization History see above surgical histo ry [facility] Other Evaluation note* Diagnosis Arteriosclerotic cardiovascular disease [...] Never smoked tobacco documented in this encounter [facility] Work Phone: Evaluation note* Diagnosis [...] mellitus with hyperosmolarity without coma, unspecified whether residential insulin use (CMS/HCC) Type 2 diabetes mellitus with stage 3a chronic kidney disease, without long-term current use of insulin (HCC) (CMS/HCC) Type 2 diabetes mellitus with other circulatory complications (CMS/HCC) Type 2 diabetes mellitus with other circulatory complications (CMS/HCC) documented in this encounter [facility] HealthcareEvaluation note* Diagnosis Type 2 diabetes mellitus with other circulatory complications (CMS/HCC)- Primary Screening for prostate cancer Special screening for malignant neoplasm of prostate Type 2 diabetes mellitus with stage 3a chronic kidney disease, without long-term current use of insulin (HCC) (CMS/HCC)- Primary Type 2 diabetes mellitus with other circulatory complications (CMS/HCC) Type 2 diabetes mellitus with hyperosmolarity without coma, unspecified whether residential insulin use (CMS/HCC) Type 2 diabetes mellitus [...] circulatory complications (CMS/HCC) documented in this encounter [facility] HealthcareEvaluation note* Diagnosis Other seborrheic dermatitis- Primary Acrochordon Unspecified hypertrophic and atrophic condition of skin Other specified erythematous conditions Inflamed seborrheic keratosis documented in this encounter [facility] HealthcareEvaluation note* Diagnosis Type 2 diabetes mellitus with other circulatory complications (CMS/HCC)- Primary Screening for prostate cancer Special screening for malignant neoplasm of prostate Type 2 diabetes mellitus with stage 3a chronic kidney disease, without long-term current use of insulin (HCC) (CMS/HCC)- Primary Type 2 diabetes mellitus with other circulatory complications (CMS/HCC) Type 2 diabetes mellitus with hyperosmolarity without coma, unspecified whether long line teamster insulin use (CMS/HCC) Type 2 diabetes mellitus [...] neoplasm of prostate documented in this encounter [facility] HealthcareEvaluation note* Diagnosis Type 2 diabetes mellitus with other circulatory complications (CMS/HCC)- Primary Screening for prostate cancer Special screening for malignant neoplasm of prostate Type 2 diabetes mellitus with stage 3a chronic kidney disease, without long-term current use of insulin (HCC) (CMS/HCC)- Primary Type 2 diabetes mellitus with other circulatory complications (CMS/HCC) Type 2 diabetes mellitus with hyperosmolarity without coma, unspecified whether residential insulin use (CMS/HCC) Type 2 diabetes mellitus [...] without long-term current use of insulin (HCC) ([facility]/HCC) Hyperlipidemia, unspecified hyperlipidemia type (CMS/HCC) documented in this encounter [facility] HealthcareEvaluation note* Diagnosis Arteriosclerotic cardiovascular disease [...] to ischemic cardiomyopathy documented in this encounter [facility] Work Phone: Evaluation note* Diagnosis [...] mellitus with hyperosmolarity without coma, unspecified whether long line teamster insulin use (CMS/HCC) Type 2 diabetes mellitus [...] Anxiety state, unspecified documented in this encounter [facility] HealthcareEvaluation note* Diagnosis Type 2 diabetes mellitus with other circulatory complications- Primary Screening for prostate cancer Special screening for malignant neoplasm of prostate Type 2 diabetes mellitus with stage 3a chronic kidney disease, without long-term current use of insulin (HCC) (CMS/HCC)- Primary Type 2 diabetes mellitus with other circulatory complications Type 2 diabetes mellitus with hyperosmolarity without coma, unspecified whether long line teamster insulin use (CMS/HCC) Type 2 diabetes mellitus with stage 3a chronic kidney disease, without long-term current use of insulin (HCC) ([facility]/HCC) 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 complications- Primary Type 2 diabetes mellitus with stage 3a chronic kidney disease, without long-term current use of insulin (HCC) ([facility]/HCC) Preventative health care Routine general medical examination at a health care facility Screening for prostate cancer Special screening for malignant neoplasm of prostate Hypothyroidism (acquired) ([facility])- Primary Unspecified hypothyroidism documented in this encounter [facility] HealthcareEvaluation note* Diagnosis Arteriosclerotic cardiovascular disease (ASCVD) Unspecified cardiovascular disease History of coronary artery bypass graft Postsurgical aortocoronary bypass status Status post angioplasty Postsurgical percutaneous transluminal coronary angioplasty status Angina pectoris Other and unspecified angina pectoris Palpitations Tachycardia Unspecified tachycardia documented in this encounter [facility] Work Phone: History of Present illness Narrative* Mr. Ford is a 66-year-old male who is seen back today for follow-up on his history of coronary disease. He had bypass surgery that was done remotely back in 1992 at [facility]. He had a WALL graft to the [...] completed. No change made to medications today. [facility] [employer] DO Work Phone: History of Present illness Narrative* Mr. Ford is a 66-year-old male who is seen back today for follow-up on his history of coronary disease. He had remote bypass surgery that was done back in 1992 at [facility].He had a WALL graft to the LAD [...] This will be arranged for him through [facility]. He is to return in 6 months for follow-up. [facility] [employer] DO Work Phone: History of Present illness Narrative* Mr. Ford is a 67-year-old male who is seen back today for follow-up on his history of coronary disease. He had remote bypass surgery that was done back in 1992 at [facility] in [place]. 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 This was redilated and stented. He had a recent episode at cardiac rehab in [place] and because of this was seen in [...] He is to return in 6 months. [facility] 250 DO Work Phone: History of Present [...] 90 tablet 3 Blood Glucose Monitoring Suppl ([employer] Verio Flex System) w/Device kit carvedilol (Coreg) [...] for chest pain. OneTouch Delica Lancets 33G [facility] Fsbs daily 100 each 3 Semaglutide, 2 [...] at all Patient Health Questionnaire-9 Score: 0 Gema Fall Risk History of Falling, Immediate or [...] Do you have a medical power of environmental attorney?: Yes Who is your medical power of environmental attorney?: alexis Ford Objective : BP 120/78 [...] conjugate vaccine 20-valent IM Hypertension, unspecified type ([facility]) Stage 3a chronic kidney disease (CKD) ([facility]) Type 2 diabetes mellitus with stage 3a chronic kidney disease, without long-term current use of insulin (HCC) ([facility]) Hyperlipidemia, unspecified hyperlipidemia type ([facility]) Patient here for annual Medicare Wellness visit. [...] Follow Up In Cardiology Martin Elias DO [address] [place] [address] 2, [address] [address] Martin Elias DO [address] [place] [address] 2, [address] [address] Referral ID Status Reason Start Date Expiration Date V isits Requested Visits Authorized [id number] Authorized 01/29/2024 01/28/2025 1 1 [facility] Work Phone: reason for visit Narrative* Cardiac Stress Testing (Routine) - Authorized Specialty Diagnoses / Procedures Referred By Vaughn costa Referred To Contact Radiology Diagnoses 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 Status post angioplasty Angina pectoris Palpitations Tachycardia Procedures Nuclear Stress Test CHG MYOCARDIAL SPECT MULTIPLE STUDIES Martin Elias DO [address] [place] [address] 2, [address] [address] Phone: tel: fax: Referral ID Status Reason Start Date Expiration Date V isits Requested Visits Authorized [id number] Authorized 01/28/2025 01/28/2026 5 5 [facility] Work Phone: reason for visit Narrative* Cardiac Stress Testing (Routine) - Authorized Specialty Diagnoses / Procedures Referred By Contac t Referred To Contact Radiology Diagnoses 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 Status post angioplasty Angina pectoris Palpitations Tachycardia Procedures Nuclear Stress Test CHG MYOCARDIAL SPECT MULTIPLE STUDIES Martin Elias DO [address] [facility] [address], [address] [place] [address] Phone: tel: fax: Referral ID Status Reason Start Date Expiration Date V isits Requested Visits Authorized [id number] Authorized 01/28/2025 01/28/2026 5 5 [facility] Work Phone: Summary Purpose Family History Unknown [...] section and content) DATE CREATED AUTHOR 05/01/2018 [facility] DATE CREATED AUTHOR AUTHOR'S ORGANIZ ATION 01/25/2022 [facility] DATE CREATED AUTHOR AUTHOR'S ORGANIZ ATION 03/03/2022 [facility] DATE CREATED AUTHOR AUTHOR'S ORGANIZ ATION 12/09/2022 [facility] DATE CREATED AUTHOR AUTHOR'S ORGANIZ ATION 01/24/2023 [employer] DATE CREATED AUTHOR AUTHOR'S ORGANIZ ATION 02/20/2023 [facility] DATE CREATED AUTHOR AUTHOR'S ORGANIZ ATION 03/21/2023 [facility] DATE CREATED AUTHOR AUTHOR'S ORGANIZ ATION 03/18/2025 [facility] DATE CREATED AUTHOR AUTHOR'S ORGANIZ ATION 04/02/2025 [facility] DATE CREATED AUTHOR AUTHOR'S ORGANIZ ATION 05/10/2025 [facility] Ambulatory REASON FOR VISIT (unrecogniz ed [...] Up In Cardiology Martin Elias, DO [address] [facility] [place] [address] Phone: tel: fax: Martin Elias, DO [address] [place] [address] Phone: tel: fax: Referral ID Status Reason Start Date Expiration Date V isits Requested Visits Authorized [id number] Authorized 01/29/2024 01/28/2025 1 1 Reason Comments Anxiety Pt presents to discu anxiety. Pt notes periods of chest tightness when going to work on things, noticing a difference in personality when around large groups. Pt was told by Payroll Director he wants to have a stress test and he started to get all tense about this. Care Teams (unrecognized sec tion and content) Inspector And Hand Packager Relationship Specialty Start Date End Date Nitish Agrawal, [address] [place] [phone] PCP - General 09/18/19 Inspector And Hand Packager Relationship Specialty Start Date End Date Lashaun Bradley DO [address] [place] [address] PCP - ACO Reach 03/29/23 Nitish Agrawal, [address] [place] [address] PCP - General Family Medicine 03/13/23 Inspector And Hand Packager Relationship Specialty Start Date End Date Lashaun Bradley DO [address] [place] [address] PCP - ACO Reach 03/29/23 Nitish Agrawal DO [address] [place] [address] PCP - General Family Medicine 03/13/23 Inspector And Hand Packager Relationship Specialty Start Date End Date Lashaun Bradley, DO [address] [place] [address] PCP - ACO Reach 03/29/23 Nitish Agrawal, DO [address] [place] [address] PCP - General Family Medicine 03/13/23 Inspector And Hand Packager Relationship Specialty Start Date End Date Lashaun Bradley, DO [address] [place] [address] PCP - ACO Reach 03/29/23 Nitish Agrawal, DO [address] [place] [address] PCP - General Family Medicine 03/13/23 Inspector And Hand Packager Relationship Specialty Start Date End Date Lashaun Bradley, DO [address] [place] [address] PCP - ACO Reach 03/29/23 Nitish Agrawal, DO [address] [place] [address] PCP - General Family Medicine 03/13/23 Inspector And Hand Packager Relationship Specialty Start Date End Date Lashaun Bradley, DO [address] [place] [address] PCP - ACO Reach 03/29/23 Nitish Agrawal, DO [address] [place] [address] PCP - General Family Medicine 03/13/23 Inspector And Hand Packager Relationship Specialty Start Date End Date Lashaun Bradley, DO [address] [place] [address] PCP - ACO Reach 03/29/23 Nitish Agrawal, DO [address] [place] [address] PCP - General Family Medicine 03/13/23 Elliot Elias MD [address] [place] [address] [address] [place] [address] Referring Physician Cardiology 12/04/24 Nisha Farrar MD [address] [place] [address] [place] [address] Referring Physician Podiatry 12/04/24 Inspector And Hand Packager Relationship Specialty Start Date End Date Lashaun Bradley DO [address] [place] [address] PCP - ACO Reach 03/29/23 Nitihs Agrawal, [address] [place] [address] PCP - General Family Medicine 03/13/23 Inspector And Hand Packager Relationship Specialty Start Date End Date Nitish Agrawal, [address] [address] PCP - General 09/18/19 Inspector And Hand Packager Relationship Specialty Start Date End Date Lashaun Bradley DO [address] [place] [address] PCP - ACO Reach 03/29/23 Nitish Agrawal DO [address] [place] [address] PCP - General Family Medicine 03/13/23 Elliot Elias MD [address] [facility] [address], [address] [place] [address] Referring Physician Cardiology 12/04/24 Nisha Farrar MD [address] [place] [address] Referring Physician Podiatry 12/04/24 Inspector And Hand Packager Relationship Specialty Start Date End Date Lashaun Bradley DO [address] [place] [address] PCP - ACO Reach 03/29/23 Nitish Agrawal DO [address] [place] [address] PCP - General Family Medicine 03/13/23 Elliot Elias MD [address] [facility] [address], [address] [place] [address] Referring Physician Cardiology 12/04/24 Nisha Farrar MD [address] [place] [address] Referring Physician Podiatry 12/04/24 Inspector And Hand Packager Relationship Specialty Start Date End Date Lashaun Bradley DO [address] [place] [address] PCP - ACO Reach 03/29/23 Nitish Agrawal DO [address] [place] [address] PCP - General Family Medicine 03/13/23 Elliot Elias MD [address] [facility] [address], [address] [place] [address] Referring Physician Cardiology 12/04/24 Nisha Farrar MD [facility] [place] [address] Referring Physician Podiatry 12/04/24 Inspector And Hand Packager Relationship Specialty Start Date End Date Lashaun Bradley DO [address] [place] [address] PCP - ACO Reach 03/29/23 Nitish Agrawal DO [address] [place] [address] PCP - General Family Medicine 03/13/23 Elliot Elias MD [address] [facility] [address], [address] [place] [address] Referring Physician Cardiology 12/04/24 Nisha Farrar MD [facility] [place] [address] Referring Physician Podiatry 12/04/24 Inspector And Hand Packager Relationship Specialty Start Date End Date Nitish Agrawal DO [address] [id number] PCP - General 09/18/19 Inspector And Hand Packager Relationship Specialty Start Date End Date Nitish Agrawal DO [address] [place] [address] PCP - General 09/18/19 Inspector And Hand Packager Relationship Specialty Start Date End Date TanjaNitish owen, DO [address] [place] [address] PCP - General 09/18/19 Inspector And Hand Packager Relationship Specialty Start Date End Date TanjaNitish owen, DO [address] [place] [address] PCP - General 09/18/19 Inspector And Hand Packager Relationship Specialty Start Date End Date Lashaun Bradley, DO [address] [place] [address] PCP - ACO Reach 03/29/23 Nitish Agrawal, DO [address] [place] [address] PCP - General Family Medicine 03/13/23 Elliot Elias MD [address] [place] [address] 2, [address] [place] [address] Referring Physician Cardiology 12/04/24 Nisha Farrar MD [address] [place] [address] [place] [address] Referring Physician Podiatry 12/04/24 Inspector And Hand Packager Relationship Specialty Start Date End Date Lashaun Bradley, DO [address] [place] [address] PCP - ACO Reach 03/29/23 Nitish Agrawal DO [address] [place] [address] PCP - General Family Medicine 03/13/23 Elliot Elias MD [address], [address] [place] [address] Referring Physician Cardiology 12/04/24 Nisha Farrar MD [address] [place] [address] [place] [address] Referring Physician Podiatry 12/04/24 FOR RECORDS PERTAINING [...] BE BASED ON THE PRIMARY CLINICAL RECORDS. [employer] provides no warranty or guarantee of the accuracy or completeness of information in this document.
== END 2025-05-18 07:23 | disposition home or self-care (01) ==
LOC: CARD 07:23
PROVIDERS: PCP Family Medicine; Visit Provider Physician Assistant
DX: R09.89 Other specified symptoms and signs involving the circulatory and respiratory systems (principal); I73.9 Peripheral vascular disease, unspecified
CPT/HCPCS: 93923

== ENCOUNTER 2025-05-19 11:34 | Day surgery (SDC) | payer MEDICARE, OTHER, SELFPAY ==
[2025-05-15 10:48] VITALS: BP 147/77; PULSE 63; TEMP 36.4; O2SAT 98; BMI 28.7
--- OUTSIDE RECORDS SUMMARY | 2025-05-19 11:38 | XMS_ITS | Encounter Summary ---
Author Organization [facility] Address [address] [place] [address] Care Team Providers Care Access Clerk Name Role Phone Lashaun Madison DO Unavailable [phone] Nitish Agrawal DO Primary Care Provider [phone] Elliot Elias MD Unavailable [phone] Ranjan Ivory MD Unavailable [phone] Encounter Details Date Type Department Care Team (Late st Contact Info) Description 06/30/2023 Abstract [facility] [address] [place] [id number] Kiel Lozano, DPM [address] [place], [place] [id number] Social History Tobacco Use Types Packs/Day Years [...] Visit [facility] [address] [facility] 230 [place] [phone] Lashaun Madison DO [address] [facility] 230 [place] [address] 12/07/2025 10:00 AM EST Office Visit [facility] [address] [place] [address] Joyce Loyd, SHED HAND [address] [place] [address] documented as of this encounter Visit Diagnoses Not on filedocumented in this encounter Care Teams Access Clerk Relationship Specialty Start Date End Date Lashaun Madison DO [address] [place] [address] PCP - ACO Reach 03/29/23 Nitish Agrawal DO [address] [place] [address] PCP - General Family Medicine 03/13/23 Elliot Elias MD [address] [place] [address] 2, [address] [place] [address] Referring Physician Cardiology 12/04/24 Ranjan Ivory MD [address] [place] [address] [place] [address] Referring Physician Podiatry 12/04/24 documented as of this encounter
--- OUTSIDE RECORDS SUMMARY | 2025-05-19 11:38 | XMS_ITS | Encounter Summary ---
Author Organization [facility] Address [address] [place] [address] Phone Care Team Providers Care Pipe Threader Name Role Phone Nitish Agrawal DO Primary Care Provider [phone] Encounter Details Date Type Department Care Team (Late st Contact Info) Description 03/07/2021 Orders Only [facility] [address] [place] [address] Conversion, Onbase Social History Tobacco Use Types [...] Description 08/04/2025 11:10 AM EDT Office Visit [facility] [address] [facility] [address] [place] [address] Martin Elias DO [address], [address] [place] [address] Scheduled Orders Name Type Priority Associated Diagnoses Orde r Schedule OUTSIDE LAB SCAN Lab Ordered: 03/07/2021 documented as of this encounter Visit Diagnoses Not on filedocumented in this encounter Care Teams Pipe Threader Relationship Specialty Start Date End Date Nitish Agrawal DO [address] [place] [address] PCP - General 09/18/19 documented as of this encounter
--- OUTSIDE RECORDS SUMMARY | 2025-05-19 11:38 | XMS_ITS | Encounter Summary ---
Author Organization [facility] Address [address] [place] [address] Care Team Providers Care Appliance Service Supervisor Name Role Phone Lashaun Madison DO Unavailable [phone] Nitish Agrawal DO Primary Care Provider [phone] Elliot Elias MD Unavailable [phone] Ranjan Ivory MD Unavailable [phone] Encounter Details Date Type Department Care Team (Late st Contact Info) Description 04/09/2023 Orders Only [facility] [address] [place] [address] Nitish Agrawal DO [address] [place] [address] Social History Tobacco Use Types Packs/Day Years [...] 09/21/2025 8:30 AM EST Office Visit [facility] [address] [place] [address] Lashaun Madison DO [address] [place] [address] 12/07/2025 10:00 AM EST Office Visit [facility] [address] [place] [address] Joyce Loyd, SCREW EYE ASSEMBLER [address] [facility] [address] [place] [address] documented as of this encounter Procedures Procedure [...] on filedocumented in this encounter Care Teams Appliance Service Supervisor Relationship Specialty Start Date End Date Lashaun Madison DO [address] [facility] [address] [place] [address] PCP - ACO Reach 03/29/23 Nitish Agrawal DO [address] [facility] [address] [place] [address] PCP - General Family Medicine 03/13/23 Elliot Elias MD [address] [facility] 2, [facility] [address] [place] [address] Referring Physician Cardiology 12/04/24 Ranjan Ivory MD [address] [place] [address] [place] [address] Referring Physician Podiatry 12/04/24 documented as of this encounter
--- OUTSIDE RECORDS SUMMARY | 2025-05-19 11:38 | XMS_ITS | Encounter Summary ---
Author Organization [facility] Address [address] [place] [address] Care Team Providers Care Engineering Associate Name Role Phone Lashaun Madison Judie DO Unavailable [phone] Nitish Agrawal DO Primary Care Provider [phone] Elliot Elias MD Unavailable [phone] Ranjan Ivory MD Unavailable [phone] Encounter Details Date Type Department Care Team (Late st Contact Info) Description 08/09/2023 Orders Only [facility] [address] [facility] [address] [place] [address] A, Unknown Practice [address] [place], [place] [address] Social History Tobacco Use Types Packs/Day Years [...] [address] [place] [address] Lashaun Madison DO [address] [place] [address] 12/07/2025 10:00 AM EST Office Visit [facility] [address] [place] [address] Joyce Loyd, LAZARO [address] [place] [address] documented as of this encounter Procedures Procedure [...] on filedocumented in this encounter Care Teams Engineering Associate Relationship Specialty Start Date End Date Lashaun Madison DO [address] [place] [address] PCP - ACO Reach 03/29/23 Nitish Agrawal DO [address] [place] [address] PCP - General Family Medicine 03/13/23 Elliot Elias MD [address] [facility] 2, [address] [place] [address] Referring Physician Cardiology 12/04/24 Ranjan Ivory MD [address] [place] [address] Dr LUCAS [place], [facility] Referring Physician Podiatry 12/04/24 documented as of this encounter
--- OUTSIDE RECORDS SUMMARY | 2025-05-19 11:38 | XMS_ITS | Encounter Summary ---
Author Organization [facility] Address [address] [place] [address] Phone Care Team Providers Care Supervisor Ship Maintenance Services Name Role Phone Nitish Agrawal DO Primary Care Provider [phone] Encounter Details Date Type Department Care Team (Late st Contact Info) Description 06/09/2022 Orders Only [facility] [address] [place] [address] Conversion, Onbase Social History Tobacco Use Types [...] Description 08/04/2025 11:10 AM EDT Office Visit [facility] [address] [facility] [address] [place] [phone] Martin Elias DO [address], [address] [place] [address] Scheduled Orders Name Type Priority Associated Diagnoses Orde r Schedule OUTSIDE LAB SCAN Lab Ordered: 06/09/2022 documented as of this encounter Visit Diagnoses Not on filedocumented in this encounter Care Teams Supervisor Ship Maintenance Services Relationship Specialty Start Date End Date Nitish Agrawal DO [address] [place] [address] PCP - General 09/18/19 documented as of this encounter
--- OUTSIDE RECORDS SUMMARY | 2025-05-19 11:38 | XMS_ITS | Encounter Summary ---
Author Organization [facility] Address [address] [place] [address] Phone Care Team Providers Care Telecommunications Clerk Name Role Phone TanjaNitish owen Primary Care Provider [phone] Reason for Visit * Reason Onset Date Comments POC 05/07/2025 Encounter Details Date Type Department Care Team (Late st Contact Info) Description 05/07/2025 Telephone [place] [id number] [address] Franchesca Adan LPN POC Social [...] 11:10 AM EDT Office Visit [facility] [address] [facility] [address] [place] [phone] Martin Elias DO [address] [facility] [address] [place] [address] documented as of this encounter Visit Diagnoses Not on filedocumented in this encounter Additional Health Concerns Assessment Noted Time A fall risk assessment has been complete d for the patient 01/29/2024 2:36 PM EDT documented as of this encounter Care Teams Telecommunications Clerk Relationship Specialty Start Date End Date Nitish Agrawal DO [address] [place] [phone] PCP - General 09/18/19 documented as of this encounter
--- OUTSIDE RECORDS SUMMARY | 2025-05-19 11:38 | XMS_ITS | Encounter Summary ---
Author Organization [facility] Address [address] [place] [address] Phone Care Team Providers Care Stack Yield Engineer Name Role Phone Nitish Agrawal DO Primary Care Provider [phone] Encounter Details Date Type Department Care Team (Late st Contact Info) Description 11/07/2021 Orders Only [facility] [address] [place] [address] Conversion, Onbase Social History Tobacco Use Types [...] Description 08/04/2025 11:10 AM EDT Office Visit [facility] [address] [facility] [address] [place] [phone] Martin Elias DO [address], [address] [place] [address] Scheduled Orders Name Type Priority Associated Diagnoses Orde r Schedule OUTSIDE LAB SCAN Lab Ordered: 11/07/2021 documented as of this encounter Visit Diagnoses Not on filedocumented in this encounter Care Teams Stack Yield Engineer Relationship Specialty Start Date End Date Nitish Agrawal DO [address] [place] [address] PCP - General 09/18/19 documented as of this encounter
--- OUTSIDE RECORDS SUMMARY | 2025-05-19 11:38 | XMS_ITS | Encounter Summary ---
Author Organization [facility] Address [address] [place] [address] Care Team Providers Care Fence Supervisor Name Role Phone Lashaun Madison DO Unavailable [phone] Nitish Agrawal DO Primary Care Provider [phone] Elliot Elias MD Unavailable [phone] Ranjan Ivory MD Unavailable [phone] Encounter Details Date Type Department Care Team (Late st Contact Info) Description 07/30/2023 Abstract [facility] [address] [place] [phone] Kiel Lozano, DPM [address] [place] [address] Social History Tobacco Use Types Packs/Day Years [...] Visit [facility] [address] [facility] [address] [place] [address] Lashaun Madison DO [address] [facility] [address] [place] [address] 12/07/2025 10:00 AM EST Office Visit [facility] [address] [place] [address] Joyce Loyd, ALARM FIELD TECHNICIAN [address] [place] [address] documented as of this encounter Visit Diagnoses Not on filedocumented in this encounter Care Teams Fence Supervisor Relationship Specialty Start Date End Date Lashaun Madison DO [address] [place] [address] PCP - ACO Reach 03/29/23 Nitish Agrawal DO [address] [place] [address] PCP - General Family Medicine 03/13/23 Elliot Elias MD [address] [place] [address] [address], [address] [place] [address] Referring Physician Cardiology 12/04/24 Ranjan Ivory MD [address] [place] [address] [place] [address] Referring Physician Podiatry 12/04/24 documented as of this encounter
--- OUTSIDE RECORDS SUMMARY | 2025-05-19 11:38 | XMS_ITS | Encounter Summary ---
Author Organization [facility] Address [address] [place] [address] Care Team Providers Care Clinical Laboratory Manager Name Role Phone Lashaun Madison DO Unavailable [phone] Nitish Agrawal DO Primary Care Provider [phone] Elliot Elias MD Unavailable [phone] Ranjan Ivory MD Unavailable [phone] Encounter Details Date Type Department Care Team (Late st Contact Info) Description 07/19/2023 Abstract [facility] [address] [place] [phone] Kiel Lozano, DPM [address] [place] [address] Social History Tobacco Use Types Packs/Day Years [...] [address] [facility] [address] [place] [address] Lashaun Madison DO [address] [facility] [address] [place] [address] 12/07/2025 10:00 AM EST Office Visit [facility] [address] [place] [address] Joyce Loyd, MARBLE RUBBER [address] [place] [address] documented as of this encounter Visit Diagnoses Not on filedocumented in this encounter Care Teams Clinical Laboratory Manager Relationship Specialty Start Date End Date Lashaun Madison DO [address] [place] [address] PCP - ACO Reach 03/29/23 Nitish Agrawal DO [address] [place] [address] PCP - General Family Medicine 03/13/23 Elliot Elias MD [address] [place] [address] [address], [address] [place] [address] Referring Physician Cardiology 12/04/24 Ranjan Ivory MD [address] [place] [address] [place] [address] Referring Physician Podiatry 12/04/24 documented as of this encounter
--- OUTSIDE RECORDS SUMMARY | 2025-05-19 11:38 | XMS_ITS | Clinical Summary ---
Author Organization [facility] Address [address] [place] [place] [address] Phone Care Team Providers Care Translator Interpreter Name Role Phone Nitish Agrawal DO Primary Care Provider [phone] Allergies Active Allergy Reactions Criticality Noted Date [...] 2 times daily (morning and late afternoon). 4 Active nitroglycerin (Nitrostat) 0.4 mg SL tabletIndications:A rteriosclerotic cardiovascular disease (ASCVD),History of coronary artery bypass graft,Status post angioplasty Place 1 tablet (0.4 mg) under the tongue every 5 minutes if needed for chest pain. 100 tablet 1 4 Active isosorbide mononitrate ER (Imdur) 60 mg 24 hr tabletIndications:A ngina pectoris, unspecified,Hyperte nsion, unspecified type Take 1 tablet (60 mg) by mouth once daily. 90 tablet 3 5 12/09/19 26 Active Ozempic 2 mg/dose (8 mg/3 mL) pen injector Inject 2 mg under the skin every 7 days. 5 Active fenofibrate (Tricor) 145 mg tabletIndications:H yperlipidemia, unspecified hyperlipidemia type Take 1 tablet (145 mg) by mouth once daily. 90 tablet 3 5 03/03/20 26 Active carvedilol (Coreg) 6.25 mg tabletIndications:M ultiple vessel coronary artery disease,Hypertensio n, unspecified type TAKE 1 TABLET BY MOUTH TWICE A DAY WITH FOOD 180 tablet 3 5 Active Active Problems Problem Noted Date Diagnosed Date Ischemic cardiomyopathy 01/28/2025 Palpitations 01/28/2025 Tachycardia 01/28/2025 Body mass index (BMI) of 28.0 to 28.9 in adult 0 01/29/2024 Never smoked tobacco 01/29/2024 Abnormal stress test 08/31/2023 Angina pectoris 08/31/2023 Diabetes mellitus (Multi) 08/31/2023 History of coronary artery bypass graft 08/31/20 23 Hyperlipidemia 08/31/2023 Hypertension 08/31/2023 Multiple vessel coronary artery disease 08/31/20 Status post angioplasty 08/31/2023 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 CHF (NYHA class II, ACC/AHA stage C) (Multi) Chronic myocardial ischemia 08/31/2023 Encounters Date Type Department Care Team Description 05/07/[address] [address] Franchesca Adan LPN POC 04/11/2025 Refill [facility] [address] [place] [address] Zach Queen, Multiple vessel coronary artery disease; Hypertension, unspecified type 03/17/[address] [place] [address] Franchesca Adan LPN 03/17/[address] [address] Cristin Fulton RN 03/01/[address] [address] Zach Queen, DO Hyperlipidemia, unspecified hyperlipidemia type 02/23/2025 8:09 AM EDT - 02/23/2025 11:59 PM EDT Hospital Encounter [address] [address] Discharge Disposition: Home 02/23/2025 8:09 AM EDT - 02/23/2025 11:59 PM EDT Hospital Encounter [address] [address] Discharge Disposition: Home 02/23/2025 8:09 AM EDT - 02/23/2025 11:59 PM EDT Hospital Encounter [address] [address] Discharge Disposition: Home 02/23/2025 8:09 AM EDT - 02/23/2025 11:59 PM EDT Hospital Encounter [address] [address] Discharge Disposition: Home 02/23/2025 8:09 AM EDT - 02/23/2025 11:59 PM EDT Hospital Encounter [address] [address] Arteriosclerotic cardiovascular disease (ASCVD); History of coronary artery bypass graft; Status post angioplasty; Angina pectoris; Palpitations; Tachycardia Discharge Disposition: Home 02/22/2025 Travel 02/19/2025 Travel 02/17/[address] [place] [address] Franchesca Adan LPN from Last 3 Months [...] Description 08/04/2025 11:10 AM EDT Office Visit [facility] [address] [facility] [address] [place] [address] Zach Queen, [address] [facility] 2, [address] [place] [address] Health Maintenance Due Date Last [...] Erika Carrion 02/23/2025 6:21 PM Dictation workstation: [id number] Narrative 02/23/2025 6:21 PM EDT Interpreted By: Erika Carrion, and Maine Lopez STUDY: MYOCARDIAL PERFUSION STRESS TEST WITH LEXISCAN Performing facility: [facility], [address] [place] [address], [address], [address] Provider: Ratna Queen DO, FACC PCP: Dr. Vineet Agrawal Supervising provider: Yamilka Rebollar MD, FACC INDICATION: Signs/Symptoms:h/o pci, angina 2-3, palps, tachy. ,I25.10 Atherosclerotic heart disease of [place] coronary artery without angina pectoris,Z95.1 Presence of [...] 1992. COMPARISON: Previous nuclear testing completed at [facility]. ACCESSION NUMBER(S): [id number] ORDERING CLINICIAN: ZACH QUEEN TECHNIQUE: ONE DAY [...] PERFUSION STRESS TEST WITH LEXISCAN Performing facility: [facility], [address] [place] [address], [address], [place] [id number] [facility] Provider: Ratna Queen DO, FACC PCP: Dr. Vineet Agrawal Supervising provider: Yamilka Rebollar MD, FACC INDICATION: Signs/Symptoms:h/o pci, angina 2-3, palps, tachy. ,I25.10 Atherosclerotic heart disease of [place] coronary artery without angina pectoris,Z95.1 Presence of [...] 1992. COMPARISON: Previous nuclear testing completed at [facility]. ACCESSION NUMBER(S): [id number] ORDERING CLINICIAN: ZACH QUEEN TECHNIQUE: ONE DAY [...] Erika Carrion 02/23/2025 6:21 PM Dictation workstation: [id number] Zach Queen DO CV STRESS PROCEDURES Final Result from Last 3 Months Insurance [facility] MEDICARE SUPPLEMENT MEDICARE PART A AND B Care Teams Translator Interpreter Relationship Specialty Start Date End Date Nitish Agrawal DO [address] [place] [phone] PCP - General 09/18/19
--- OUTSIDE RECORDS SUMMARY | 2025-05-19 11:38 | XMS_ITS | Clinical Summary ---
Author Organization [facility] Address [address] [facility] [place] [address] Care Team Providers Care Technologist Development Name Role Phone Lashaun Madison Judie RICH Unavailable [phone] Nitish Martin DO Primary Care Provider [phone] Elliot Queen MD Unavailable [phone] Nisha Ivory MD Unavailable [phone] Allergies No known active allergies Medications isosorbide [...] chest pain. Active Blood Glucose Monitoring Suppl (OutTrippinToYuanfen~Flow™ Verio Flex System) w/Device kit Active glucose [...] unspecified 03/29/2016 Atherosclerotic heart diseas e of [place] coronary artery without angina pectoris 03/29/2016 Gastro-esophageal reflux disease without esophag itis 03/29/2016 Osteoarthritis of knee, unspecified 03/29/2016 Difficulty in walking, not elsewhere classified 03/29/2016 Muscle weakness (generalized) 03/29/2016 Other reduced mobility 03/29/2016 Diabetes mellitus due to und erlying condition with unspecified complications 03/29/2016 Difficulty walking 03/29/2016 Muscle weakness 03/29/2016 Reduced mobility 03/29/2016 Encounters Date Type Department Care Team Description 05/15/2025 Abstract [facility] [address] [place] [address] Nitish Martin, DO 05/15/2025 Abstract [facility] [address] [place] [address] Nitish Martin, DO 05/15/2025 Clinisync Result Encounter [facility] External Department Unsolicited Provider, Generic External Data 04/22/2025 Clinisync Result Encounter [facility] External Department Unsolicited Provider, Generic External Data 03/27/2025 8:45 AM EDT Office Visit [facility] [address] [place] [place] [address] Lashaun Madison, DO Type 2 diabetes mellitus with stage 3a chronic kidney disease, without long-term current use of insulin (HCC); Type 2 diabetes mellitus with other circulatory complications (HCC) 03/27/2025 Orders Only [facility] [address] [place] [address] Joyce Loyd, LAZARO Colon cancer screening (Primary Dx) 03/27/2025 Travel 03/01/2025 Refill [facility] [address] [place] [address] Gricelda Lashaun M, DO Type 2 diabetes mellitus with other circulatory complications (HCC) 02/25/2025 Refill [facility] [address] [place] [address] Otonieljay Lashaun M, DO Type 2 diabetes mellitus with other [...] 09/21/2025 8:30 AM EST Office Visit [facility] [address] [facility] 230 [place] [address] Lashaun Madison DO [address] [facility] 230 [place] [address] 12/07/2025 10:00 AM EST Office Visit [facility] [address] [facility] 230 [place] [address] GeneJoyce henriquez Amanda, SUPERINTENDENT CAR CONSTRUCTION [address] [facility] 230 [place] [address] Health Maintenance Due Date Last Done Comments [...] Name Priority Date/Time Associated Diagnosis Comments XR CHEST 2V 05/15/2025 10:49 AM EDT ALL BASIC METABOLIC PANEL Routine 05/15/2025 10:35 AM EDT [facility] APTT Routine 05/15/2025 10:35 AM EDT [facility] PROTHROMBIN TIME INR W/O COUM Routine 05/15/2025 10:35 AM EDT ALL CBC WITH AUTO DIFF Routine 05/15/2025 10:35 AM EDT XR FOOT LT MIN 3V 04/22/2025 3:2 [...] Relevant to Health Maintenance Results * XR CHEST 2V (05/15/2025 10:49 AM EDT) Anatomical Region Laterality Modality Other 05/15/2025 10:4 9 AM EDT Narrative 05/15/2025 10:[place] [address] XRay Report Signed Patient: JANICE PANDYA Jr. MR#: [id number] : 1955 Acct:[id number] Age/Sex: 70 / M ADM Date: 05/15/25 Loc: [facility] Attending Dr: Nisha Ivory D.P.M. Ordering Physician: Nisha Ivory D.P.M. Date of Service: 05/15/25 Procedure(s): XR chest 2V Accession Number(s): [id number] cc: NITISH MARTIN ; Nisha Ivory D.P.M. [address] [address] Patient Name: JANICE PANDYA MRN: [id number] date: 1955 Sex: M Assigned Patient Location: [facility] Current Patient Location: [facility] Accession/Order Number: [id number] Exam Date: 05/15/2025 10:46 Report Date: 05/15/2025 10:49 At the request of: NISHA IVORY DPJudie Procedure: XR chest 2V PA AND [...] Owens M.D. 05/15/2025 10:49 AM Dictation Location: [place] [address] Electronically authenticated by: [id number] Y Date: 05/15/2025 10:49 Dictated By: Melani Owens M.D. Signed By: 05/15/25 1051 DD/ 1049 TD/TT: Plywood Layup Line Back Feeder: Procedure Note Radiology, Radiologist, MD - 05/15/2025 [place] [address] XRay Report Signed Patient: JANICE PANDYA Jr.MR#: [id number] : 1955cct:[id number] Age/Sex: 70 / MADM Date: 05/15/25 Loc: [facility] Attending Dr: Nisha Ivory D.P.M. Ordering Physician: Nisha Ivory D.P.M. Date of Service: 05/15/25 Procedure(s): XR chest 2V Accession Number(s): [id number] cc: NITISH MARTIN ; Nisha Ivory D.P.M. The [place] [address] Patient Name: JANICE PANDYA MRN: [id number] date: 1955 Sex: M Assigned Patient Location: [facility] Current Patient Location: [facility] Accession/Order Number: [id number] Exam Date: 05/15/2025 10:46 Report Date: 05/15/2025 10:49 At the request of: NISHA IVORY DPJudie Procedure: XR chest 2V PA AND LATERAL CHEST: CLINICAL HISTORY: Preoperative clearance COMPARISON: 01/11/2022 Median sternotomy wires are visualized. There is no focal parenchymal consolidation, effusion or pneumothorax. The cardiac, hilar andmediastinal silhouettes are within normal limits. There is no vascular congestion.The visualized bony thorax is intact. There is mild dextroscolioticcurvature and degenerative changes with suspected DISH. XR/XR chest 2V IMPRESSION: NO ACUTE CARDIOPULMONARY ABNORMALITY. Impression dictated by: Melani Owens M.D. 05/15/2025 10:49 AM Dictation Location: [place] [address] Electronically authenticated by: [id number] Y Date: 0:49 Dictated By: Melani Owens M.D. Signed By:05/15/25 1051 DD/ 1049 TD/TT: Plywood Layup Line Back Feeder: Generic External Data Provider [facility] IMAGING Final Result * [facility] PROTHROMBIN TIME INR W/O COUM (05/15/2025 10:35 AM EDT) PROTHROMBIN TIME 11.1 9.0 - 11.6 sec TBH TBH INR 1.05 TBH Comment: DESIRED INR: 2.0-3.0 CONDITIONS NOT LISTED BELOW 2.5-3.5 FOR PROSTHETIC HEART VALVE REPLACEMENT 2.5-3.5 RECURRENT THROMBOSIS 05/15/2025 10:3 5 AM EDT 05/15/2025 10:40 AM EDT Narrative CLINISYNC - 05/15/2025 11:18 AM EDT Generic External Data Provider [facility] F inal Result [facility] * [facility] APTT (05/15/2025 10:35 AM EDT) PARTIAL THROMBOPLASTIN TIME 32.2 22.3 - 36.2 sec TBH 05/15/2025 10:3 5 AM EDT 05/15/2025 10:40 AM EDT Narrative CLINISYNC - 05/15/2025 11:18 AM EDT us Generic External Data Provider CLINISYNC F inal Result CLINISYNC [facility] * (ABNORMAL) ALL CBC WITH AUTO DIFF (05/15/2025 10:35 AM EDT) [facility] WBC 7.1 4.0 - 11.0 10 3/uL TBH TBH RBC 5.18 4.70 - 6.10 10 6/uL TBH TBH HGB 13.6(L) 14.0 - 18.0 g/dL TBH TBH HCT 42.9 42.0 - 54.0 % TBH TBH MCV 82.8 80.0 - 94.0 fL TBH TBH MCH 26.3 25.9 - 34.0 pg TBH TBH MCHC 31.7 29.9 - 35.2 g/dL TBH TBH RDW 15.8(H) 11.0 - 15.0 % TBH TBH PLT 266 150 - 450 10 3/uL TBH TBH MPV 10.4 9.5 - 13.5 fL TBH NEUTROPHILS PERCENT AUTO 60.8 43.0 - 75.0 % TBH LYMPHOCYTES PERCENT AUTO 25.7 20.5 - 60.0 % TBH MONOCYTES PERCENT AUTO 9.2 1.7 - 12.0 % TBH TBH EO % 2.8 0.9 - 7.0 % TBH BASOPHILS PERCENT AUTO 1.1 0.2 - 2.0 % TBH IMMATURE GRANULOCYTES PCT AUTO 0.4 0.0 - 0.5 % TBH NEUTROPHILS ABSOLUTE AUTO 4.3 1.4 - 6.5 10 3/uL TBH LYMPHOCYTES ABSOLUTE AUTO 1.8 1.2 - 3.8 10 3/uL TBH MONOCYTES ABSOLUTE AUTO 0.7 0.3 - 0.8 10 3/uL TBH TBH EO # 0.2 0.0 - 0.7 10 3/uL TBH BASOPHILS ABSOLUTE AUTO 0.1 0.0 - 0.1 10 3/uL TBH IMMATURE GRANULOCYTES ABS AUTO 0.03 0.00 - 0.03 10 3/uL TBH 05/15/2025 10:3 5 AM EDT 05/15/2025 10:40 AM EDT Narrative CLINISYNC - 05/15/2025 11:06 AM EDT Generic External Data Provider CLINMELISSANC F inal Result Performing Organization Address City/[facility] Co de Phone Number ANH TB * (ABNORMAL) ALL BASIC METABOLIC PANEL (05/15/2025 10:35 AM EDT) SODIUM 141 136 - 145 mmol/L TBH POTASSIUM 4.1 3.5 - 5.1 mmol/L TBH CHLORIDE 105 98 - 107 mmol/L TBH CARBON DIOXIDE 23.9 21.0 - 32.0 mmol/L TBH ANION GAP 16.2 TBH GLUCOSE 231(H) 74 - 106 mg/dL TBH BLOOD UREA NITROGEN 25.0(H) 7.0 - 18.0 mg/dL TBH CREATININE 1.32(H) 0.70 - 1.30 mg/dL TBH TBH EGFR-AF BURMESE >60 >=60 mL/min/1.7 3m 2 TBH TBH EGFR-NON AF BURMESE 54(L) >=60 mL/min/1.7 3m 2 TBH BUN CREATININE RATIO 18.9 TBH CALCIUM 8.5 8.5 - 10.1 mg/dL TBH 05/15/2025 10:3 5 AM EDT 05/15/2025 10:40 AM EDT Narrative CLINISYNC - 05/15/2025 11:26 AM EDT Generic External Data Provider ANH F yoly Result Performing Organization Address City/[facility] Co de Phone Number ANH TB * XR FOOT LT MIN 3V (04/22/2025 3:25 PM EDT) Anatomical Region Laterality Modality Other 04/22/2025 3:25 PM EDT Narrative 04/22/2025 3:27 PM EDT The [address] [address] XRay Report Signed Patient: JANICE PANDYA MR#: [id number] : 1955 Acct:[id number] Age/Sex: 70 / M ADM Date: 04/22/25 Loc: RAD Attending Dr: Nisha Ivory D.P.M. Ordering Physician: Nisha Ivory D.P.M. Date of Service: 04/22/25 Procedure(s): XR foot LT min 3V Accession Number(s): [id number] cc: NITISH MARTIN ; Nisha Ivory D.P.M. The [place] [id number] Patient Name: JANICE PANDYA MRN: [facility]:[id number] date: 1955 Sex: M Assigned Patient Location: [facility] Current Patient Location: [facility] Accession/Order Number: [id number] Exam Date: 04/22/2025 15:23 Report Date: 04/22/2025 [...] Jr., D.O. 04/22/2025 3:25 PM Dictation Location: [place] [address] Electronically authenticated by: [id number] Y Date: 04/22/2025 15:25 Dictated By: Theron Guerra M.D. Signed By: 04/22/25 1527 DD/ 1525 TD/TT: Plywood Layup Line Back Feeder: Procedure Note Radiology, Radiologist, MD - 04/22/2025 [place] [address] XRay Report Signed Patient: JANICE PANDYA R#: [id number] : 1955cct:[id number] Age/Sex: 70 / MADM Date: 04/22/25 Loc: RAD Attending Dr: Nisha Ivory D.P.M. Ordering Physician: Nisha Ivory D.P.M. Date of Service: 04/22/25 Procedure(s): XR foot LT min 3V Accession Number(s): [id number] cc: NITISH MARTIN ; Nisha Ivory D.P.M. [place] [id number] Patient Name: JANICE PANDYA MRN: TBH:[id number] date: 1955 Sex: M Assigned Patient Location: [facility] Current Patient Location: [facility] Accession/Order Number: [id number] Exam Date: 04/22/2025 15:23 Report Date: 04/22/2025 15:25 At the request of: NISHA IVORY DPM Procedure: XR foot LT min 3V [...] Jr., D.O. 04/22/2025 3:25 PM Dictation Location: [place] [address] Electronically authenticated by: [id number] Y Date: 5:25 Dictated By: Theron Guerra M.D. Signed By:04/22/25 1527 DD/ 1525 TD/TT: Plywood Layup Line Back Feeder: us Generic External Data Provider CLINISYNC IMAGING Final Result * POCT glycosylated hemoglobin (Hb A1C) docked device (03/27/2025 8:57 AM EDT) Hemoglobin A1C 7.1 Blood Venous blood specimen / Unknown 03/27/2025 8:57 AM EDT Lashaun M Gricelda RICH POINT OF CARE TEST ENTER/E DIT ORDERABLES Final Result * NUCLEAR STRESS TEST EXERCISE (CARD) (02/23/2025 8:09 AM EDT) Anatomical Region Laterality Modality Radiographic Kelly ging 02/23/2025 8:09 AM EDT Narrative 02/23/2025 6:21 PM EDT Source Facility: [facility] Interpreted By: Erika Carrion and Giannuzzi Michael STUDY: MYOCARDIAL PERFUSION STRESS TEST WITH LEXISCAN Performing facility: [facility], [address] [place] [address], [address], [address] Provider: Ratna Queen DO, FACC PCP: Dr. Vineet Martin Supervising provider: Yamilka Rebollar MD, FACC INDICATION: Signs/Symptoms:h/o pci, angina 2-3, palps, tachy. ,I25.10 Atherosclerotic heart disease of [place] coronary artery without angina pectoris,Z95.1 Presence of [...] COMPARISON: Previous nuclear testing completed at [facility]. ACCESSION NUMBER(S): [id number] ORDERING CLINICIAN: ZACH QUEEN TECHNIQUE: ONE DAY [...] Erika Carrion 02/23/2025 6:21 PM Dictation workstation: [id number] Procedure Note Radiology, Radiologist, - 02/24/2025 Source Facility: [facility] Interpreted By: Erika Carrion, and Maine Lopez STUDY: MYOCARDIAL PERFUSION STRESS TEST WITH LEXISCAN Performing facility: [facility], [address] [place] [address], [address], [place] [address] [facility] Provider: Ratna Queen DO, FACC PCP: Dr. Vineet Martin Supervising provider: Yamilka Rebollar MD, FACC INDICATION: Signs/Symptoms:h/o pci, angina 2-3, palps, tachy. ,I25.10 Atherosclerotic heart disease of [place] coronary artery without angina pectoris,Z95.1 Presence of [...] COMPARISON: Previous nuclear testing completed at [facility]. ACCESSION NUMBER(S): [id number] ORDERING CLINICIAN: ZACH QUEEN TECHNIQUE: ONE DAY [...] Erika Carrion 02/23/2025 6:21 PM Dictation workstation: [id number] Generic External Data Provider IMG XR PROCEDURES [...] - 12/02/2024 10:07 AM EST Performed at: 01 - [facility] [id number] Digital Campaign Manager: Leonardo Stevens PhD, Phone: [phone] us Lashaun Madison DO LAB URINE ORDERABLES Final Result Performing Organization Address City/State/[facility] Co de Phone Number [facility] * Color Fundus Photography - OU - Both Eyes (06/27/2022 12:00 PM EDT) Anatomical Region Laterality Modality Head Fundus Photograp hy 06/27/2022 12:0 0 PM EDT Narrative 06/27/2022 12:00 PM EDT PERFORMED AT [facility] LOCATION:[id number] [facility] Procedure Note CONVERSION, GENERIC - 03/21/2023 PERFORMED AT [facility] LOCATION:[id number] [facility] Lashaun Madison DO OPHTH PHOTOGRAPHY Final Re [...] Calle et al, N Engl J Med 2014;370(14):2651-2218) The normal value (reference range) for this assay is negative. COLOGUARD RE-SCREENING RECOMMENDATION: Periodic colorectal cancer screening is an important part of preventive healthcare for asymptomatic individuals at average risk for colorectal cancer. Following a negative Cologuard result, the [place] Cancer Society and U.S. Multi-Society Task Force screening guidelines recommend a Cologuard re-screening interval of 3 years. References: [place] Cancer Society Guideline for Colorectal Cancer Screening: https://www.cancer.org/cancer/dfmiz-yagrke-icywih/aspokqkfu-qqjvhgjzl-yvzcudv/ac s-rec ommendations.html.; [place] CHAVEZ, Oren SHEIKH, Harvey RomanK, Colorectal Cancer Screening: Recommendations for Physicians and Patients from the U.S. Multi-Society Task Force on Colorectal Cancer Screening , Am J Gastroenterology 2017; 112:6766-7126. TEST DESCRIPTION: Composite algorithmic analysis of stool [...] (Payam Dillon al, N Engl J Med 2014;370(14):7644-9832.) Cologuard may produce a false negative or false positive result (no colorectal cancer or precancerous polyp present at colonoscopy follow up). A negative Cologuard test result does not guarantee the absence of CRC or advanced adenoma (pre-cancer). The current Cologuard screening interval is every 3 years. ([place] Cancer Society and U.S. Multi-Society Task Force). Cologuard performance data in a 10,000 patient pivotal study using colonoscopy as the reference method can be accessed at the following location: www.Xoft/results. Additional description of the Cologuard test process, warnings and precautions can be found at www.cologuard.com. 03/27/2022 Robin [facility] ORDERA BLES Final Result [facility] from Last 3 Months or Most Recently Relevant to Health Maintenance Insurance MED[employer] Care Teams Technologist Development Relationship Specialty Start Date End Date Lashaun Madison DO [address] [facility] [address] [place] [address] PCP - ACO Reach 03/29/23 Nitish Martin DO [address] [facility] 230 [place] [address] PCP - General Family Medicine 03/13/23 Elliot Queen MD [address] [place] [address] 2, [facility] [address] [place] [address] Referring Physician Cardiology 12/04/24 Nisha Ivory MD [address] [place] [address] [place] [address] Referring Physician Podiatry 12/04/24
--- OUTSIDE RECORDS SUMMARY | 2025-05-19 11:38 | XMS_ITS | Clinical Summary ---
Author Organization [facility] CenterPredilytics iQiyi Sys tem Address [facility] [id number] [address] [place] [address] Care Team Providers Care Shadowgraph Operator Name Role Phone Brittany York Primary Care Provider [phone] Social History Tobacco Use Types Packs/Day Years [...] Medical Devices Not on file Care Teams Shadowgraph Operator Relationship Specialty Start Date End Date Brittany York APRN-CNP [address] [place] [address] PCP - General Family Medicine 01/12/21
--- OUTSIDE RECORDS SUMMARY | 2025-05-19 11:38 | XMS_ITS | Encounter Summary ---
Author Organization [facility] Address [address] [place] [address] Care Team Providers Care Undercollar Maker Name Role Phone Lashaun Madison DO Unavailable [phone] Nitish Agrawal DO Primary Care Provider [phone] Elliot Elias MD Unavailable [phone] Ranjan Ivory MD Unavailable [phone] Encounter Details Date Type Department Care Team (Late st Contact Info) Description 08/06/2023 Abstract [facility] [address] [facility] [address] [address] [place] [address] Lashaun Madison, [address] [facility] 230 [place] [address] Social History Tobacco Use Types Packs/Day Years [...] 09/21/2025 8:30 AM EST Office Visit [facility] [address] [address] [place] [address] Lashaun Madison DO [address] [place] [address] 12/07/2025 10:00 AM EST Office Visit [facility] [address] [address] [place] [address] Joyce Loyd NP [address] [place] [address] documented as of this encounter Visit Diagnoses Not on filedocumented in this encounter Care Teams Undercollar Maker Relationship Specialty Start Date End Date Lashaun Madison DO [address] [place] [address] PCP - ACO Reach 03/29/23 Nitish Agrawal DO [address] [facility] 230 [place] [address] PCP - General Family Medicine 03/13/23 Elliot Elias MD [address] [facility] 2, [facility] [address] [place] [address] Referring Physician Cardiology 12/04/24 Ranjan Ivory MD [address] [place] [address] [place] [address] Referring Physician Podiatry 12/04/24 documented as of this encounter
--- OUTSIDE RECORDS SUMMARY | 2025-05-19 11:39 | XMS_ITS | Encounter Summary ---
Author Organization [facility] Address [address] [place] [address] Care Team Providers Care Ornamental Metal Worker Helper Name Role Phone Lashaun Madison DO Unavailable [phone] Nitish Agrawal DO Primary Care Provider [phone] Elliot Elias MD Unavailable [phone] Ranjan Ivory MD Unavailable [phone] Reason for Visit * Reason Comments Med Refill Encounter Details Date Type Department Care Team (Late st Contact Info) Description 03/04/2024 Refill [facility] [address] [facility] [address] [address] [place] [address] Lashaun Madison, DO [address] [facility] 230 [place] [address] Type 2 diabetes mellitus with [...] 09/21/2025 8:30 AM EST Office Visit [facility] [address] [place] [address] Lashaun Madison DO [address] [place] [address] 12/07/2025 10:00 AM EST Office Visit [facility] [address] [address] [place] [address] Joyce Loyd, SHOE LASTER [address] [place] [address] documented as of this encounter Visit Diagnoses Diagnosis Type 2 diabetes mellitus with other circulatory complications (HCC) documented in this encounter Care Teams Ornamental Metal Worker Helper Relationship Specialty Start Date End Date Lashaun Madison DO [address] [place] [address] PCP - ACO Reach 03/29/23 Nitish Agrawal DO [address] [place] [address] PCP - General Family Medicine 03/13/23 Elliot Elias MD [facility] [facility] [address] [place] [address] Referring Physician Cardiology 12/04/24 Ranjan Ivory MD [address] [place] [address] Dr LUCAS Lerna, [facility]11 Referring Physician Podiatry 12/04/24 documented as of this encounter
--- OUTSIDE RECORDS SUMMARY | 2025-05-19 11:39 | XMS_ITS | Encounter Summary ---
Author Organization [facility] Address [address] [place] [address] Care Team Providers Care Fruit Picker Machine Operator Name Role Phone Lashaun Madison DO Unavailable [phone] Nitish Agrawal DO Primary Care Provider [phone] Elliot Elias MD Unavailable [phone] Ranjan Ivory MD Unavailable [phone] Encounter Details Date Type Department Care Team (Late st Contact Info) Description 02/19/2024 Abstract [facility] [address] [facility] 230 [place] [address] Lashaun Madison, [address] [facility] 230 [place] [address] Social History Tobacco Use Types Packs/Day Years [...] 09/21/2025 8:30 AM EST Office Visit [facility] [address] [place] [address] Lashaun Madison, DO [address] [facility] [address] [place] [address] 12/07/2025 10:00 AM EST Office Visit [facility] [address] [place] [address] Joyce Loyd, FARM MACHINERY ENGINE MECHANIC [address] [place] [address] documented as of this encounter Visit Diagnoses Not on filedocumented in this encounter Care Teams Fruit Picker Machine Operator Relationship Specialty Start Date End Date Lashaun Madison, DO [address] [place] [address] PCP - ACO Reach 03/29/23 Nitish Agrawal DO [address] [place] [address] PCP - General Family Medicine 03/13/23 Elliot Elias MD [address]03 [facility] 2, [address] [place] [address] Referring Physician Cardiology 12/04/24 Ranjan Ivory MD [address] [place] [address] [place] [address] Referring Physician Podiatry 12/04/24 documented as of this encounter
--- OUTSIDE RECORDS SUMMARY | 2025-05-19 11:39 | XMS_ITS | Encounter Summary ---
Author Organization [facility] Address [address] [place] [address] Care Team Providers Care Tennis Player Name Role Phone Lashaun Madison Judie DO Unavailable [phone] Nitish Agrawal DO Primary Care Provider [phone] Elliot Elias MD Unavailable [phone] Ranjan Ivory MD Unavailable [phone] Encounter Details Date Type Department Care Team ([facility] Contact Info) Description 05/15/2025 Abstract [facility] [address] [facility] [address] [place] [address] Nitish Agrawal, [address] [facility] 230 [place] [address] Social History Tobacco Use Types Packs/Day Years [...] Upcoming Encounters Date Type Department Care Team ([facility] Contact Info) Description 09/21/2025 8:30 AM EST Office Visit [facility] [address] [place] [address] Lashaun Madison DO [address] [place] [address] 12/07/2025 10:00 AM EST Office Visit [facility] [address] [place] [address] Joyce Loyd, CONTROL OPERATOR [address] [place], [place] [id number] documented as of this encounter Visit Diagnoses Not on filedocumented in this encounter Additional Health Concerns Assessment Noted Time PHQ-9 Depression Total Score: 0 12/04/19 11:00 AM EST documented as of this encounter Care Teams Tennis Player Relationship Specialty Start Date End Date Lashaun Madison DO [address] [place] [address] PCP - ACO Reach 03/29/23 Nitish Agrawal DO [address] [place] [address] PCP - General Family Medicine 03/13/23 Elliot Elias MD 703 [facility] 2, [address] [place] [address] Referring Physician Cardiology 12/04/24 Ranjan Ivory MD [address] [place] [address] [place] [address] Referring Physician Podiatry 12/04/24 documented as of this encounter
--- OUTSIDE RECORDS SUMMARY | 2025-05-19 11:39 | XMS_ITS | Encounter Summary ---
Author Organization [facility] Address [address] [place] [address] Care Team Providers Care Micro Photographer Name Role Phone Lashaun Madison Judie DO Unavailable [phone] Nitish Agrawal DO Primary Care Provider [phone] Elliot Elias MD Unavailable [phone] Ranjan Ivory MD Unavailable [phone] Encounter Details Date Type Department Care Team (Late st Contact Info) Description 10/15/2023 Abstract [facility] [address] [place] [phone] Kiel Lozano, DPM [address] [place], [place] [phone] Social History Tobacco Use Types Packs/Day Years [...] 09/21/2025 8:30 AM EST Office Visit [facility] [address] [place] [address] Lashaun Madison, DO [address] [place] [address] 12/07/2025 10:00 AM EST Office Visit [facility] [address] [place] [address] Joyce Loyd, DIRECTOR INSURANCE [address] [place] [address] documented as of this encounter Visit Diagnoses Not on filedocumented in this encounter Care Teams Micro Photographer Relationship Specialty Start Date End Date Lashaun Madison, DO [address] [place] [address] PCP - ACO Reach 03/29/23 Nitish Agrawal DO [address] [place] [address] PCP - General Family Medicine 03/13/23 Elliot Elias MD 703 [facility] 2, [address] [place] [address] Referring Physician Cardiology 12/04/24 Ranjan Ivory MD [address] [place] [address] [place] [address] Referring Physician Podiatry 12/04/24 documented as of this encounter
--- OUTSIDE RECORDS SUMMARY | 2025-05-19 11:39 | XMS_ITS | Encounter Summary ---
Author Organization [facility] Address [address] [place] [address] Phone Care Team Providers Care Meeting Planner Name Role Phone Nitish Agrawal DO Primary Care Provider [phone] Encounter Details Date Type Department Care Team (Late st Contact Info) Description 01/15/2019 Orders Only [facility] [address] [place] [address] Conversion, Onbase Social History Tobacco Use Types [...] Description 08/04/2025 11:10 AM EDT Office Visit [facility] 703 [facility] [address] [place] [address] aMrtin Elias DO 703 [facility] 2, [address] [place] [address] Scheduled Orders Name Type Priority Associated Diagnoses Orde r Schedule OUTSIDE LAB SCAN Lab Ordered: 01/15/2019 documented as of this encounter Visit Diagnoses Not on filedocumented in this encounter Care Teams Meeting Planner Relationship Specialty Start Date End Date Nitish Agrawal DO [address] [place] [address] PCP - General 09/18/19 documented as of this encounter
--- OUTSIDE RECORDS SUMMARY | 2025-05-19 11:39 | XMS_ITS | Encounter Summary ---
Author Organization [facility] Address [address] [place] [address] Care Team Providers Care Park Keeper Name Role Phone Lashaun Madison Judie DO Unavailable [phone] Nitish Agrawal DO Primary Care Provider [phone] Elliot Elias MD Unavailable [phone] Ranjan Ivory MD Unavailable [phone] Encounter Details Date Type Department Care Team ([facility] Contact Info) Description 05/15/2025 Abstract [facility] [address] [facility] [address] [place] [address] Nitish Agrawal, [address] [facility] 230 [place] [address] Social History Tobacco Use Types Packs/Day Years [...] Upcoming Encounters Date Type Department Care Team ([facility] Contact Info) Description 09/21/2025 8:30 AM EST Office Visit [facility] [address] [place] [phone] Lashaun Madison DO [address] [place] [address] 12/07/2025 10:00 AM EST Office Visit [facility] [address] [place] [address] Joyce Loyd, INDUSTRIAL CLEANER [address] [place], [place] [phone] documented as of this encounter Visit Diagnoses Not on filedocumented in this encounter Additional Health Concerns Assessment Noted Time PHQ-9 Depression Total Score: 0 12/04/19 11:00 AM EST documented as of this encounter Care Teams Park Keeper Relationship Specialty Start Date End Date Lashaun Madison DO [address] [place] [address] PCP - ACO Reach 03/29/23 Nitish Agrawal DO [address] [place] [address] PCP - General Family Medicine 03/13/23 Elliot Elias MD 703 [facility] 2, [address] [place] [address] Referring Physician Cardiology 12/04/24 Ranjan Ivory MD [address] [place] [address] [place] [address] Referring Physician Podiatry 12/04/24 documented as of this encounter
--- OUTSIDE RECORDS SUMMARY | 2025-05-19 11:39 | XMS_ITS | Encounter Summary ---
Author Organization [facility] Address [address] [place] [address] Care Team Providers Care It Security Project Manager Name Role Phone Lashaun Madison DO Unavailable [phone] Nitish Agrawal DO Primary Care Provider [phone] Elliot Elias MD Unavailable [phone] Nisha Ivory MD Unavailable [phone] Encounter Details Date Type Department Care Team (Late Contact Info) Description 05/15/2025 Clinisync Result Encounter [facility] External Department Unsolicited Provider, Generic External Data Social History Tobacco Use Types Packs/Day Years [...] Encounters Date Type Department Care Team (Late Contact Info) Description 09/21/2025 8:30 AM EST Office Visit [facility] [address] [facility] [address] [place] [address] Lashaun Madison M, DO [address] [place] [address] 12/07/2025 10:00 AM EST Office Visit [facility] [address] [place] [address] Joyce Loyd, NOVELTY WORKER [address] [place] [address] documented as of this encounter Procedures Procedure Name Priority Date/Time Associated Diagnosis Comments XR CHEST 2V 05/15/2025 10:49 AM EDT [facility] PROTHROMBIN TIME INR W/O COUM Routine 05/15/2025 10:35 AM EDT [facility] APTT Routine 05/15/2025 10:35 AM EDT ALL CBC WITH AUTO DIFF Routine 05/15/2025 10:35 AM EDT ALL BASIC METABOLIC PANEL Routine 05/15/2025 10:35 AM EDT documented in this encounter Results * XR CHEST 2V (05/15/2025 10:49 AM EDT) Anatomical Region Laterality Modality Other 05/15/2025 10:4 9 AM EDT Narrative 05/15/2025 10:51 AM EDT The [address] [address] XRay Report Signed Patient: JANICE PANDYA Jr. MR#: [id number] : 1955 Acct:[id number] Age/Sex: 70 / M ADM Date: 05/15/25 Loc: PST Attending Dr: Nisha Ivory D.P.M. Ordering Physician: Nisha Ivory D.P.M. Date of Service: 05/15/25 Procedure(s): XR chest 2V Accession Number(s): [id number] cc: NITISH AGRAWAL ; Nisha Ivory D.P.M. The [address] [address] Patient Name: JANICE PANDYA MRN: [id number] date: 1955 Sex: M Assigned Patient Location: [facility] Current Patient Location: [facility] Accession/Order Number: [id number] Exam Date: 05/15/2025 10:46 Report Date: 05/15/2025 [...] Owens M.D. 05/15/2025 10:49 AM Dictation Location: [place] [address] Electronically authenticated by: [id number] Y Date: 05/15/2025 10:49 Dictated By: Melani Owens M.D. Signed By: 05/15/25 1051 DD/ 1049 TD/TT: Video Production Assistant: Procedure Note Radiology, Radiologist, MD - 05/15/2025 [place] [address] XRay Report Signed Patient: JANICE PANDYA Jr.MR#: [id number] : 1955cct:[id number] Age/Sex: 70 / MADM Date: 05/15/25 Loc: [facility] Attending Dr: Nisha Ivory D.P.M. Ordering Physician: Nisha Ivory D.P.M. Date of Service: 05/15/25 Procedure(s): XR chest 2V Accession Number(s): [id number] cc: NITISH AGRAWAL ; Nisha Ivory D.P.M. [place] [id number] Patient Name: JANICE PANDYA MRN: [id number] date: 1955 Sex: M Assigned Patient Location: [facility] Current Patient Location: [facility] Accession/Order Number: [id number] Exam Date: 05/15/2025 10:46 Report Date: 05/15/2025 [...] Owens M.D. 05/15/2025 10:49 AM Dictation Location: [place] [address] Electronically authenticated by: [id number] Y Date: 0:49 Dictated By: Melani Owens M.D. Signed By:05/15/25 1051 DD/ 1049 TD/TT: Video Production Assistant: Generic External Data Provider [facility] Final Result * (ABNORMAL) ALL BASIC METABOLIC PANEL (05/15/2025 [...] 0.70 - 1.30 mg/dL TBH TBH EGFR-AF EGYPTIAN >60 >=60 mL/min/1.7 3m 2 TBH TBH EGFR-NON AF EGYPTIAN 54(L) >=60 mL/min/1.7 3m 2 TBH BUN CREATININE RATIO 18.9 TBH CALCIUM 8.5 8.5 - 10.1 mg/dL [facility] 05/15/2025 10:3 5 AM EDT 05/15/2025 10:40 AM EDT Narrative [facility] - 05/15/2025 11:26 AM EDT Generic External Data Provider [facility] F inal Result Performing Organization Address [facility] de Phone Number [facility] * [facility] APTT (05/15/2025 10:35 AM EDT) PARTIAL THROMBOPLASTIN TIME 32.2 22.3 - 36.2 sec TB 05/15/2025 10:3 5 AM EDT 05/15/2025 10:40 AM EDT Narrative [facility] - 05/15/2025 11:18 AM EDT Generic External Data Provider [facility] F inal Result Performing Organization Address [facility] de Phone Number [facility] * [facility] PROTHROMBIN TIME INR W/O COUM (05/15/2025 10:35 AM EDT) PROTHROMBIN TIME 11.1 9.0 - 11.6 sec TB TB INR 1.05 TBH Comment: DESIRED INR: 2.0-3.0 CONDITIONS NOT LISTED BELOW 2.5-3.5 FOR PROSTHETIC HEART VALVE REPLACEMENT 2.5-3.5 RECURRENT THROMBOSIS 05/15/2025 10:3 5 AM EDT 05/15/2025 10:[address] [facility] - 05/15/2025 11:18 AM EDT Generic External Data Provider [facility] F inal Result Performing Organization Address [facility] de Phone Number [facility] * (ABNORMAL) ALL CBC WITH AUTO DIFF (05/15/2025 10:35 AM EDT) TB WBC 7.1 4.0 - 11.0 10 3/uL TBH TBH RBC 5.18 4.70 - 6.10 10 6/uL TBH TBH HGB 13.6(L) 14.0 - 18.0 g/dL TBH TB HCT 42.9 42.0 - 54.0 % TBH TBH MCV 82.8 80.0 - 94.0 fL TBH TBH MCH 26.3 25.9 - 34.0 pg TBH TB MCHC 31.7 29.9 - 35.2 g/dL TB TB RDW 15.8(H) 11.0 - 15.0 % TBH [...] Narrative [facility] - 05/15/2025 11:06 AM EDT us Generic External Data Provider [facility] F inal Result [facility] documented in this encounter Visit Diagnoses Not on filedocumented in this encounter Additional Health Concerns Assessment Noted Time PHQ-9 Depression Total Score: 0 12/04/19 25 11:00 AM EST documented as of this encounter Care Teams It Security Project Manager Relationship Specialty Start Date End Date Lashaun Madison DO [address] [facility] 230 [place] [address] PCP - ACO Reach 03/29/23 Nitish Agrawal DO [address] [facility] 230 [place] [address] PCP - General Family Medicine 03/13/23 Elliot Elias MD [address] [place] [address] 2, [facility] 250 [place] [address] Referring Physician Cardiology 12/04/24 Nisha Ivory MD [address] [place] [address] [place] [address] Referring Physician Podiatry 12/04/24 documented as of this encounter
--- OUTSIDE RECORDS SUMMARY | 2025-05-19 11:39 | XMS_ITS | Encounter Summary ---
Author Organization [facility] Address [address] [place] [address] Care Team Providers Care Electrical Installation Supervisor Name Role Phone Lashaun Madison Judie DO Unavailable [phone] Nitish Agrawal DO Primary Care Provider [phone] Elliot Elias MD Unavailable [phone] Ranjan Ivory MD Unavailable [phone] Encounter Details Date Type Department Care Team (Late st Contact Info) Description 02/19/2024 Abstract [facility] [address] [facility] [address] [place] [address] Nitish Agrawal, [address] [facility] 230 [place] [address] Social History Tobacco Use Types Packs/Day Years [...] 09/21/2025 8:30 AM EST Office Visit [facility] [address] [place] [address] Lashaun Madison, DO [address] [place] [address] 12/07/2025 10:00 AM EST Office Visit [facility] [address] [place] [address] Joyce Loyd, CHIEF GUARD [address] [place] [address] documented as of this encounter Visit Diagnoses Not on filedocumented in this encounter Care Teams Electrical Installation Supervisor Relationship Specialty Start Date End Date Lashaun Madison DO [address] [place] [address] PCP - ACO Reach 03/29/23 Nitish Agrawal DO [address] [place] [address] PCP - General Family Medicine 03/13/23 Elliot Elias MD 703 [facility] 2, [address] [place] [address] Referring Physician Cardiology 12/04/24 Ranjan Ivory MD [address] [place] [address] [place] [address] Referring Physician Podiatry 12/04/24 documented as of this encounter
[2025-05-19 11:41] VITALS: BP 149/81; PULSE 73; TEMP 36.1; O2SAT 99; BMI 28.2
[2025-05-19] MEDS: CEFAZOLIN SODIUM 2 GM/50 ML D5W PREMIX IV (13:19)
--- NOTE | 2025-05-19 13:29 | PM.ORONB ---
Brief Operative Note Date of procedure: 05/19/25 Pre-op diagnosis general: Left diabetic foot ulcer, second toe contracture & hammertoe with subluxation at metatarsal phalangeal joint, equinus Post-op diagnosis: same as pre-op Procedure: Procedure performed: Left delayed primary closure of diabetic foot ulcer, partial second metatarsal resection, tendo Achilles lengthening Indications for procedure: Mr. Ford is a 70-year-old male with type 2 diabetes and nonhealing left plantar forefoot ulceration. Despite offloading and local wound care the ulceration has waxed and waned for months. At his last appointment in the wound center we discussed the potential risks and benefits of surgical intervention specifically pertaining to the above procedures. Noninvasive vascular studies were obtained and do show peripheral arterial disease with left REKHA of 0.91 and TBI of 0.59. Medical clearance was obtained and patient wished to proceed with the above procedures. Intraoperative findings: Ulcer subsecond metatarsal head measured 1.4 x 1.0 x 0.2 cm. no signs of infection. No bone or tendon exposure but ulceration did involve fat and fascia. Contracture with subluxation noted at the 2nd MPJ. Bone quality within normal limits. Procedure in detail: Patient was identified preoperatively by myself which time correct side and site were marked and consent was obtained. Patient brought back to the operating theater placed on table in supine position with a calf tourniquet. IV sedation was administered and the left lower extremity was prepped and draped in usual sterile fashion. Local anesthesia consisting of 10 cc of 1% lidocaine plain and 10 cc of 0.5% Marcaine plain as a standard second ray block. Formal timeout was performed. A triple hemisection percutaneous tendo Achilles lengthening was performed through 3 separate stab incisions placed over the mid substance of the Achilles tendon. The most distal stab incision once through the Achilles tendon the scalpel was turned 90 degrees and the foot was dorsiflexed releasing 50% of the width of the Achilles tendon. Then 3 cm proximal another stab incision was placed releasing 50% of the medial half of the Achilles tendon followed by another stab incision proximal to the second releasing the lateral 50% of the Achilles tendon. 10 degrees of ankle joint dorsiflexion was obtained. Foot and ankle were then exsanguinated and the tourniquet was inflated. The ulceration on the plantar forefoot was then excised and a 3-1 ellipse and passed the back table but was not sent as specimen. The ellipse was then extended distally as well as proximally for visualization then a combination of sharp and blunt dissection gained access to the flexor tendon which was protected and kept intact throughout the procedure. The plantar plate and deep soft tissue was meticulously reflected then blunt dissection along the second metatarsal head neck and shaft was performed. Then a sagittal saw was used to resect the second metatarsal head and neck with a plantarly based bevel. Bone quality was within normal limits and the second metatarsal head and neck were excised and passed the back table to be sent a specimen. The tourniquet was deflated noting a prompt hyperemic response. Any remaining bleeders were coagulated and the surgical site was irrigated with copious amounts of sterile saline. Then deep observable suture was used to close any space in the incision and prior ulcer site were closed meticulously and without tension. A dry sterile dressing and multilayer posterior splint was then applied. Capillary refill was brisk to all toes. Patient tolerated procedure and anesthesia well was transferred to the recovery room with vital signs stable. Postoperative plan: Discharge home under family's care Partial weightbearing to the left heel with use of a walker Follow-up in the wound center within 3 days to be transition to total contact cast. Prescriptions were sent to his pharmacy using my office EMR. Patient will follow-up weekly in the wound center for cast change until surgical sites are healed. Implants: None Anesthesia: MAC and local Surgeon: Ranjan Ivory [employer] Mdm Developer: Shamika Oliva Estimated blood loss (mL): 10 Tourniquet time (min): 16 Pathology: other (Second metatarsal bone) Condition: stable Disposition: PACU
--- NOTE | 2025-05-19 13:37 | XR_ITS ---
The [address] [address] Patient Name: JANICE PANDYA MRN: [id number] date: 1955 Sex: M Assigned Patient Location: [facility] Current Patient Location: Accession/Order Number: [id number] Exam Date: 05/20/2025 08:15 Report Date: 05/20/2025 08:21 At the request of: NISHA FARRAR DPM Procedure: XR foot LT min 3V LEFT FOOT - 3 views CLINICAL DATA: Follow-up after surgery. Ulcer at the second metatarsal. COMPARISON: 04/22/2025 AP, lateral and oblique views were obtained. There is a splint that obscures fine bone detail. A screw is again noted through the proximal interphalangeal joint of the second toe. Deformity at the proximal interphalangeal joints of the third through fifth toes was better seen without the splint. There is interval resection of the head of the second metatarsal. There is no obvious acute fracture given the splint artifact. There is slight lateral subluxation of the distal phalanx of the first toe with moderate degenerative change at the adjacent joint. Minor degenerative change is also visualized at the first metatarsal phalangeal joint. A plantar calcaneal spur is seen. There is soft tissue swelling and subcutaneous air over the dorsum of the foot, presumed to be postoperative. XR/XR foot LT min 3V IMPRESSION: INTERVAL AMPUTATION OF THE HEAD OF THE SECOND METATARSAL. ADDITIONAL POSTOPERATIVE WELL DEGENERATIVE CHANGES, DESCRIBED. Impression dictated by: Melani Owens M.D. 05/20/2025 8:21 AM Dictation Location: [place] [address] Electronically authenticated by: [id number] Y Date: 05/20/2025 08:21
[2025-05-19] MEDS: LIDOCAINE HCL 1% 100 MG/10 ML MDV INJ (13:52)
[2025-05-19] MEDS: BUPIVACAINE HCL 0.5% PF 50 MG/10 ML VIAL INJ (13:52)
[2025-05-19 14:43] VITALS: BP 166/87; PULSE 72; TEMP 36.1; O2SAT 95
[2025-05-19 15:03] VITALS: BP 154/82; PULSE 69; TEMP 36.1; O2SAT 96
[2025-05-19] MEDS: OXYCODONE HCL 5 MG TABLET 10 MG PO (15:03)
--- NOTE | 2025-05-19 15:09 | PC.NURSE ---
1505- Xray completed as ordered. Patient tolerated it well.
[2025-05-19 15:25] VITALS: BP 164/91; PULSE 71; O2SAT 97
== END 2025-05-19 15:35 | disposition home or self-care (01) ==
PROVIDERS: PCP Family Medicine; Visit Provider Podiatrist Foot & Ankle Surgery
PROC: (CPT 27606; principal; 2025-05-19 13:00)
DX: E11.621 Type 2 diabetes mellitus with foot ulcer (principal); L97.529 Non-pressure chronic ulcer of other part of left foot with unspecified severity; I25.10 Atherosclerotic heart disease of native coronary artery without angina pectoris; M20.5X2 Other deformities of toe(s) (acquired), left foot; M20.42 Other hammer toe(s) (acquired), left foot; Z96.651 Presence of right artificial knee joint; Z95.1 Presence of aortocoronary bypass graft; Z79.85 Long-term (current) use of injectable non-insulin antidiabetic drugs; Z79.84 Long term (current) use of oral hypoglycemic drugs; M24.572 Contracture, left ankle; I10 Essential (primary) hypertension; Z95.5 Presence of coronary angioplasty implant and graft; Z87.442 Personal history of urinary calculi; E03.9 Hypothyroidism, unspecified; E11.40 Type 2 diabetes mellitus with diabetic neuropathy, unspecified
CPT/HCPCS: 27606; 28112; 36415; 73630; 82948; 88305; 88311; J0665; J0690; J1100; J2250; J2405; J2704; J3010

== ENCOUNTER 2025-05-20 10:14 | Outpatient (OUT) | payer MEDICARE, OTHER, SELFPAY | END 2025-05-20 10:15 | disposition home or self-care (01) | LOC: WC 10:14 | PROVIDERS: PCP Family Medicine; Visit Provider Physician Assistant | DX: E11.621 Type 2 diabetes mellitus with foot ulcer (principal); L97.425 Non-pressure chronic ulcer of left heel and midfoot with muscle involvement without evidence of necrosis | CPT/HCPCS: 29445; A6213 ==

== ENCOUNTER 2025-05-27 09:17 | Outpatient (OUT) | payer MEDICARE, OTHER, SELFPAY ==
--- OUTSIDE RECORDS SUMMARY | 2025-05-20 20:32 | XMS_ITS | Continuity of Care Document ---
Author Organization [facility] Address [address] [place] [address] Phone Care Team Providers Care Hydraulic Jack Mechanic Name Role Phone Ranjan Ivory DPM Attending Provider Care Teams Patient Care Team Team Status: Inactive Member Role Status Dates Ranjan Ivory DPM MS Attending Provider Active Start: May 19, 2025 End: May 19, 2025 Chief Complaint and Reason for Visit Chief Complaint Admit Date Unknown May 19, 2025 2:24 pm Allergies, Adverse Reactions, Alerts Allergen Type Severity Reaction Last Updated Verified Status No Known Allergies Allergy Unknown March 10, 2022 9:47am Yes Active Social History Smoking Status Status Start Date End Date Date of Observa tion Ex-smoker (finding) March 10, 2022 9:25am Observation Status Observation Response Date of Response Legal Sex Male (finding) Sex Assigned At Male 1955 Family History Relationship Condition Age at Onset Recorded Date/T connor father Cerebrovascular accident (CVA) Unknown Heart problem Unknown mother History of malignant neoplasm of kidney U nknown brother Congestive heart failure Unknown father Diabetes mellitus Unknown Unknown History of stroke Unknown mother Diabetes mellitus Unknown Malignant neoplasm Unknown Hypertension Unknown Unknown Family history of lung cancer Unknown Medications Medication Status Dose Units Route Directions Qty Days St art Date Stop Date End Date Instructions Adherence Carvedilol 6.25 mg tablet Active 6.25 MG PO Twice daily 2021 1:00am Unknown Atorvastati n 20 mg tablet Active 20 MG PO Daily at bedtime 2021 1:00am Unknown Clopidogrel 75 mg tablet Active 75 MG PO Daily at bedtime 2021 1:00am Unknown Aspirin 81 mg Tablet,Janice yed Release (Dr/Ec) Active 81 MG PO Every morning 2021 1:00am Unknown Nitroglycer in 0.4 mg tablet, sublingual Active 0.4 MG SUBLIN GUAL As Directed as needed for Angina 2021 1:00am Unknown Levothyroxi ne (Synthroid) 200 mcg tablet Active 200 MCG PO Daily 2021 1:00am Unknown Fenofibrate Nanocrystal lized 145 mg tablet Active 145 MG PO Daily at bedtime 2021 1:00am Unknown Canaglifloz in (Invokana) 100 mg tablet Discont inued 100 MG PO Every morning 2021 1:00am March 10, 2022 10:11 am Dulaglutide (Trulicity) 1.5 mg/0.5 mL pen injector Active 1.5 MG SUBCUT every week 2021 1:00am Unknown Dapaglifloz in Propanediol (Farxiga) 5 mg tablet Active 5 MG PO Daily March 10, 2022 12:00a m Unknown Isosorbide Mononitrate 30 mg tablet extended release 24 hr Active 30 MG PO Daily March 10, 2022 12:00a m Unknown Cephalexin 500 mg Tablet Active 500 MG PO Twice daily March 10, 2022 12:00a m x 10 days Unknown Metformin 500 mg Tablet Extended Release 24 Hr Active 500 MG PO Twice daily March 10, 2022 12:00a m Unknown Canaglifloz in (Invokana) 100 mg Tablet Active 100 MG PO Daily March 14, 2022 12:00a m Unknown Immunizations Immunization Event Date Not Given Reason Dose Number Mold Dumper Lot Number Vaccine Information Statement (VIS) Detail Administration Location COVID-19 Jean-Claude Song (eRALOS3) January 15, 2021 COVID-19 mRNA Comkip (eRALOS3) February 06, 2021 COVID-19 mRNAJean-Claude (eRALOS3) September 02, 2021 Medical Equipment Device Date Implanted Device Details Drug-eluting coronary artery stent, [id number]-xbmxdtn-coate d November 09, 2021 KARLA: [id number] Issuing Agency: [facility] Device Id: [id number] Lot Number: [id number] Drug-eluting coronary artery stent, [id number]-xudepnusrlqfq-ibiraka-coate d November 09, 2021 KARLA: [id number] Issuing Agency: [facility] Device Id: [id number] Lot Number: [id number] Femoral artery closure plug/patch, synthetic polymer November 09, 2021 KARLA: [id number] Issuing Agency: [facility] Device Id: [id number] Lot Number: [id number] Advance Directives Advance Directive Response Recorded Date/ Time Advance Directives No October 11:21am Insurance Providers Guarantor Nick Ford Jr Address [address] [place] [id number] Contact Info. Home Phone: Payer Policy Id Subscriber's Name Subscriber Id Effectiv e Date Expiration Date [facility] [id number] Nick Ford Jr [id number] Medicare [id number] Nick Ford Jr [id number] Encounters Encounter Location(s) Arrival/Admit Date Discharge/Depart Date Provider(s) Departed Referred -[facility] May 19, 2025 2:24pm May 19, 2025 2:25pm Ranjan Ivory DPM MS
--- OUTSIDE RECORDS SUMMARY | 2025-05-27 09:20 | XMS_ITS | Encounter Summary ---
Author Organization [facility] Address [address] [place] [address] Care Team Providers Care Clutch Assembler Name Role Phone Lashaun Madison DO Unavailable [phone] Nitish Agrawal DO Primary Care Provider [phone] Elliot Elias MD Unavailable [phone] Nisha Ivory MD Unavailable [phone] Encounter Details Date Type Department Care Team [...] Visit [facility] [address] [place] [phone] Lashaun Madison, DO [address] [place] [address] 12/07/2025 10:00 AM EST Office Visit [facility] [address] [place] [address] Joyce Loyd, SENIOR C SOFTWARE DEVELOPER [address] [place], [place] [id number] documented as of this encounter Procedures Procedure Name Priority Date/Time Associated Diagnosis Comments ECG 12-LEAD 05/15/2025 8:31 AM EDT documented in this encounter Results * ECG 12-LEAD (05/15/2025 8:31 AM EDT) Anatomical Region Laterality Modality Other 05/15/2025 8:31 AM EDT Narrative 05/19/2025 4:10 PM EDT [place] [id number] Electrocardiograph Report Signed Patient: JANICE PANDYA Jr. MR#: [id number] : 1955 Acct:[id number] Age/Sex: 70 / M ADM Date: 05/15/25 Loc: PST Attending Dr: Nisha Ivory D.P.M. Ordering Physician: Nisha Ivory D.P.M. Date of Service: 05/15/25 Procedure(s): ECG 12 lead Accession Number(s): [id number] cc: [facility] Test Date: 2025-05-15 Pat Name: JANICE PANDYA Department: Room: - Gender: Male Material Worker: : 1955 Requested By: NISHA IVORY Order Number: [id number] Reading MD: SUKHWINDER FAITH Measurements Intervals Sylvia Rate: 63 P: 21 NE: 288 QRS: 35 QRSD: 114 T: 146 QT: 410 QTc: 423 Interpretive Statements SINUS RHYTHM WITH FIRST DEGREE AV BLOCK MODERATE INTRAVENTRICULAR CONDUCTION DELAY [105+ ms QRS DURATION, 80+ ms Q/S IN V1/V2, NO Q AND 60+ ms R IN I/aVL/V5/V6] NONSPECIFIC ST T-WAVE ABNORMALITY Compared to ECG 03/23/2022 05:05:27 No significant changes Electronically Signed On 05-19-2025 16:10:06 EDT by SUKHWINDER FAITH Dictated By: Sukhwinder Faith M.D. Signed By: 05/19/25 1610 DD/ 0831 TD/TT: Tank Cleaning Supervisor: Procedure Note Radiology, Radiologist, MD - 05/19/2025 [place] [address] Electrocardiograph Report Signed Patient: JANICE PANDYA Jr.MR#: [id number] : 1955cct:[id number] Age/Sex: 70 / MADM Date: 05/15/25 Loc: PST Attending Dr: Nisha Ivory D.P.M. Ordering Physician: Nisha Ivory D.P.M. Date of Service: 05/15/25 Procedure(s): ECG 12 lead Accession Number(s): [id number] cc: [facility] Test Date: 2025-05-15 Pat Name: JANICE PANDYA Department: Room: - Gender: Male Material Worker: : 1955 Requested By: NISHA IVORY Order Number: [id number] Reading MD: SUKHWINDER FAITH Measurements Intervals Sylvia Rate: 63 P: 21 NE: 288 QRS: 35 QRSD: 114 T: 146 QT: 410 QTc: 423 Interpretive Statements SINUS RHYTHM WITH FIRST DEGREE AV BLOCK MODERATE INTRAVENTRICULAR CONDUCTION DELAY [105+ ms QRS DURATION, 80+ msQ/S IN V1/V2, NO Q AND 60+ ms R IN I/aVL/V5/V6] NONSPECIFIC ST T-WAVE ABNORMALITY Compared to ECG 03/23/2022 05:05:27 No significant changes Electronically Signed On 05-19-2025 16:10:06 EDT by SUKHWINDER FAITH Dictated By: Sukhwinder Faith M.D. Signed By:05/19/25 1610 DD/ 0831 TD/TT: Tank Cleaning Supervisor: Generic External Data Provider [facility] Final Result documented in this encounter Visit Diagnoses Not on filedocumented in this encounter Additional Health Concerns Assessment Noted Time PHQ-9 Depression Total Score: 0 12/04/19 25 11:00 AM EST documented as of this encounter Care Teams Clutch Assembler Relationship Specialty Start Date End Date Lashaun Madison DO [address] [place] [address] PCP - ACO Reach 03/29/23 Nitish Agrawal DO [address] [place] [address] PCP - General Family Medicine 03/13/23 Elliot Elias MD [address] [place] [address] [address] [place] [address] Referring Physician Cardiology 12/04/24 Nisha Ivory MD [address] [place] [address] [place] [address] Referring Physician Podiatry 12/04/24 documented as of this encounter
--- OUTSIDE RECORDS SUMMARY | 2025-05-27 09:20 | XMS_ITS | Encounter Summary ---
Author Organization [facility] Address [address] [place] [address] Care Team Providers Care Process Assistant Name Role Phone Lashaun Madison DO Unavailable [phone] Nitish Agrawal DO Primary Care Provider [phone] Elliot Elias MD Unavailable [phone] Ranjan Ivory MD Unavailable [phone] Encounter Details Date Type Department Care Team (Late st Contact Info) Description 07/19/2023 Abstract [facility] [address] [place] [phone] Kiel Lozano, DPM [address] [place] [address] Social History Tobacco Use Types Packs/Day Years [...] Visit [facility] [address] [facility] 230 [place] [address] Lashaun Madison DO [address] [facility] 230 [place] [address] 12/07/2025 10:00 AM EST Office Visit [facility] [address] [place] [address] Joyce Loyd, BUTTONHOLER [address] [place] [address] documented as of this encounter Visit Diagnoses Not on filedocumented in this encounter Care Teams Process Assistant Relationship Specialty Start Date End Date Lashaun Madison DO [address] [place] [address] PCP - ACO Reach 03/29/23 Nitish Agrawal DO [address] [place] [address] PCP - General Family Medicine 03/13/23 Elliot Elias MD [address] [place] [address] [address], [address] [place] [address] Referring Physician Cardiology 12/04/24 Ranjan Ivory MD [address] [place] [address] [place] [address] Referring Physician Podiatry 12/04/24 documented as of this encounter
--- OUTSIDE RECORDS SUMMARY | 2025-05-27 09:20 | XMS_ITS | Encounter Summary ---
Author Organization [facility] Address [address] [place] [address] Care Team Providers Care Order Runner Name Role Phone Lashaun Madison Judie DO Unavailable [phone] Nitish Agrawal DO Primary Care Provider [phone] Elliot Elias MD Unavailable [phone] Ranjan Ivory MD Unavailable [phone] Reason for Visit * Reason Comments Med Refill Encounter Details Date Type Department Care Team (Late st Contact Info) Description 05/24/2025 Refill [facility] [address] [facility] 230 [place] [phone] Robin Caicedo PA [address] [facility] 230 [place] [address] Anxiety Social History Tobacco Use Types Packs/Day Years [...] 09/21/2025 8:30 AM EST Office Visit [facility] [address] [place] [address] Lashaun Madison DO [address] [place] [address] 12/07/2025 10:00 AM EST Office Visit [facility] [address] [place] [address] Joyce Loyd, HARDWARE SALES ASSISTANT [address] [place] [address] documented as of this encounter Visit Diagnoses Diagnosis Anxiety Anxiety state, unspecified documented in this encounter Additional Health Concerns Assessment Noted Time PHQ-9 Depression Total Score: 0 12/04/19 11:00 AM EST documented as of this encounter Care Teams Order Runner Relationship Specialty Start Date End Date Lashaun Madison DO [address] [place] [address] PCP - ACO Reach 03/29/23 Nitish Agrawal DO [address] [place] [address] PCP - General Family Medicine 03/13/23 Elliot Elias MD [address] [facility] [address] [place] [address] Referring Physician Cardiology 12/04/24 Ranjan Ivory MD [address] [place] [address] [place] [address] Referring Physician Podiatry 12/04/24 documented as of this encounter
--- OUTSIDE RECORDS SUMMARY | 2025-05-27 09:20 | XMS_ITS | Encounter Summary ---
Author Organization [facility] Address [address] [place] [address] Care Team Providers Care Auto Apprentice Mechanic Name Role Phone Lashaun Madison DO Unavailable [phone] Nitish Agrawal DO Primary Care Provider [phone] Elliot Elias MD Unavailable [phone] Ranjan Ivory MD Unavailable [phone] Encounter Details Date Type Department Care Team (Late st Contact Info) Description 04/09/2023 Orders Only [facility] [address] [place] [address] Nitish Agrawal DO [address] [place] [address] Social History Tobacco Use Types Packs/Day Years [...] 09/21/2025 8:30 AM EST Office Visit [facility] [address] [place] [address] Lashaun Madison DO [address] [place] [address] 12/07/2025 10:00 AM EST Office Visit [facility] [address] [place] [address] Joyce Loyd, ACTUARY CLERK [address] [facility] 230 [place] [address] documented as of this encounter Procedures Procedure [...] on filedocumented in this encounter Care Teams Auto Apprentice Mechanic Relationship Specialty Start Date End Date Lashaun Madison DO [address] [facility] 230 [place] [address] PCP - ACO Reach 03/29/23 Nitish Agrawal DO [address] [facility] 230 [place] [address] PCP - General Family Medicine 03/13/23 Elliot Elias MD [address] [facility] 2, [email or web address] [address] [place] [address] Referring Physician Cardiology 12/04/24 Ranjan Ivory MD [address] [place] [address] [place] [address] Referring Physician Podiatry 12/04/24 documented as of this encounter
--- OUTSIDE RECORDS SUMMARY | 2025-05-27 09:20 | XMS_ITS | Encounter Summary ---
Author Organization [facility] Address [address] [place] [address] Phone Care Team Providers Care Border Police Name Role Phone Nitish Agrawal DO Primary Care Provider [phone] Encounter Details Date Type Department Care Team (Late st Contact Info) Description 11/07/2021 Orders Only [facility] [address] [place] [address] Conversion, Onbase Social History Tobacco Use Types [...] Description 08/04/2025 11:10 AM EDT Office Visit [facility] [address] [facility] [address] [place] [phone] Martin Elias DO [address], [address] [place] [address] Scheduled Orders Name Type Priority Associated Diagnoses Orde r Schedule OUTSIDE LAB SCAN Lab Ordered: 11/07/2021 documented as of this encounter Visit Diagnoses Not on filedocumented in this encounter Care Teams Border Police Relationship Specialty Start Date End Date Nitish Agrawal DO [address] [place] [address] PCP - General 09/18/19 documented as of this encounter
--- OUTSIDE RECORDS SUMMARY | 2025-05-27 09:20 | XMS_ITS | Encounter Summary ---
Author Organization [facility] Address [address] [place] [address] Care Team Providers Care Inspector Soldering Name Role Phone Lashaun Madison DO Unavailable [phone] Nitish Agrawal DO Primary Care Provider [phone] Elliot Elias MD Unavailable [phone] Ranjan Ivory MD Unavailable [phone] Encounter Details Date Type Department Care Team (Late st Contact Info) Description 07/30/2023 Abstract [facility] [address] [place] [phone] Kiel Lozano, DPM [address] [place] [address] Social History Tobacco Use Types Packs/Day Years [...] Visit [facility] [address] [facility] 230 [place] [address] Lashaun Madison DO [address] [facility] 230 [place] [address] 12/07/2025 10:00 AM EST Office Visit [facility] [address] [place] [address] Joyce Loyd, SOLAR TECHNICIAN [address] [place] [address] documented as of this encounter Visit Diagnoses Not on filedocumented in this encounter Care Teams Inspector Soldering Relationship Specialty Start Date End Date Lashaun Madison DO [address] [place] [address] PCP - ACO Reach 03/29/23 Nitish Agrawal DO [address] [place] [address] PCP - General Family Medicine 03/13/23 Elliot Elias MD [address] [place] [address] [address], [address] [place] [address] Referring Physician Cardiology 12/04/24 Ranjan Ivory MD [address] [place] [address] [place] [address] Referring Physician Podiatry 12/04/24 documented as of this encounter
--- OUTSIDE RECORDS SUMMARY | 2025-05-27 09:20 | XMS_ITS | Clinical Summary ---
Author Organization [facility] Address [address] [facility] [place] [address] Care Team Providers Care Cloth Calender Name Role Phone Lashaun Madison Judie RICH Unavailable [phone] Nitish Martin DO Primary Care Provider [phone] Elliot Elias MD Unavailable [phone] Nisha Ivory MD Unavailable [phone] Allergies No known active allergies Medications isosorbide [...] chest pain. Active Blood Glucose Monitoring Suppl (U.S. [employer] Verio Flex System) w/Device kit Active glucose blood (OneTouch Verio) test stripIndications:T ype 2 diabetes mellitus with other circulatory complications (HCC) Fsbs daily 100 strip 4 03/03/20 24 Active OneTouch Delica Lancets 33G miscIndications:Ty pe 2 diabetes mellitus with other circulatory complications (HCC) Fsbs daily 100 each 3 03/03/20 24 Active Ciclopirox 1 % shampooIndications :Other seborrheic dermatitis Lather on wet hair, leave on 5 min, rinse 2-3 x week, 30 day supply 120 mL 11 06/27/20 24 Active ciclopirox (Loprox) 0.77 % creamIndications:O ther seborrheic dermatitis Apply thin layer to affected area once a day, 30 day supply 30 g 11 06/27/20 24 Active levothyroxine (Synthroid, Levoxyl) 200 MCG tabletIndications: Other specified hypothyroidism TAKE 1 TABLET BY MOUTH EVERY DAY 90 tablet 3 07/28/20 24 Active Semaglutide, 2 MG/DOSE, (Ozempic, 2 MG/DOSE,) 8 MG/3ML solution pen-injectorIndica tions:Type 2 diabetes mellitus with other circulatory complications (HCC) Inject 2 mg under the skin 1 (one) time per week 9 mL 3 09/01/20 24 Active atorvastatin (Lipitor) 20 MG tabletIndications: Mixed hyperlipidemia TAKE 1 TABLET BY MOUTH EVERY DAY IN THE EVENING FOR 90 DAYS 90 tablet 3 10/15/20 24 Active ammonium lactate (Lac-Hydrin) 12 % lotion APPLY DAILY TO DRY AREAS ON FEET 11/25/19 25 Active hydrOXYzine HCl (Atarax) 25 MG tabletIndications: Anxiety Take 2 tablets (50 mg) by mouth 2 (two) times a day as needed for anxiety 40 tablet 01/30/20 25 Active metFORMIN XR (Glucophage-XR) 500 MG 24 hr tabletIndications: Type 2 diabetes mellitus with other circulatory complications (HCC) TAKE 1 TABLET BY MOUTH TWICE A DAY 180 tablet 1 02/26/20 25 Active dapagliflozin (Farxiga) 5 MGIndications:Type 2 diabetes mellitus with other circulatory complications (HCC) TAKE 1 TABLET BY MOUTH EVERY DAY 90 tablet 03/02/20 25 Active sertraline (Zoloft) 50 MG tabletIndications: Anxiety TAKE 1 TABLET BY MOUTH EVERY DAY 90 tablet 1 05/25/20 25 Active sertraline (Zoloft) 50 MG tabletIndications: Anxiety Take 1 tablet (50 mg) by mouth Daily 30 tablet 5 01/30/20 25 025 Discontinued Active Problems Problem Noted Date [...] unspecified 03/29/2016 Atherosclerotic heart diseas e of [place] coronary artery without angina pectoris 03/29/2016 Gastro-esophageal reflux disease without esophag itis 03/29/2016 Osteoarthritis of knee, unspecified 03/29/2016 Difficulty in walking, not elsewhere classified 03/29/2016 Muscle weakness (generalized) 03/29/2016 Other reduced mobility 03/29/2016 Diabetes mellitus due to und erlying condition with unspecified complications 03/29/2016 Difficulty walking 03/29/2016 Muscle weakness 03/29/2016 Reduced mobility 03/29/2016 Encounters Date Type Department Care Team Description 05/24/2025 Refill [facility] [address] [place] [phone] Robin Caicedo PA Anxiety 05/20/2025 Clinisync Result Encounter [facility] External Department Unsolicited Provider, Generic External Data 05/19/2025 Abstract [facility] [address] [place] [phone] Nitish Martin, DO 05/18/2025 Clinisync Result Encounter [facility] External Department Unsolicited Provider, Generic External Data 05/15/2025 Clinisync Result Encounter [facility] External Department Unsolicited Provider, Generic External Data 05/15/2025 Abstract [facility] [address] [place] [phone] Nitish Martin, DO 05/15/2025 Abstract [facility] [address] [place] [address] Nitish Martin, 05/15/2025 Clinisync Result Encounter [facility] External Department Unsolicited Provider, Generic External Data 04/22/2025 Clinisync Result Encounter [facility] External Department Unsolicited Provider, Generic External Data 03/27/2025 8:45 AM EDT Office Visit [facility] [address] [place] [address] Lashaun Madison, Type 2 diabetes mellitus with stage 3a chronic kidney disease, without long-term current use of insulin (HCC); Type 2 diabetes mellitus with other circulatory complications (HCC) 03/27/2025 Orders Only [facility] [address] [place] [address] Joyce Loyd, LAZARO Colon cancer screening (Primary Dx) 03/27/2025 Travel 03/01/2025 Refill [facility] [address] [place] [address] Lashaun Madison, Type 2 diabetes mellitus with other circulatory complications (HCC) 02/25/2025 Refill [facility] [address] [facility] [address] [place] [phone] Lashaun Madison, Type 2 diabetes mellitus with other circulatory complications (HCC) from Last 3 Months Immunizations Immunization Administration [...] 09/21/2025 8:30 AM EST Office Visit [facility] [address] [place] [phone] Lashaun Madison DO [address] [place] [address] 12/07/2025 10:00 AM EST Office Visit [facility] [address] [place] [address] Joyce Loyd NP [address] [place] [address] Health Maintenance Due Date Last Done Comments [...] Diagnosis Comments XR FOOT LT MIN 3V 05/20/2025 8:2 1 AM EDT SEGMENTAL BLOOD PRESSURE 05/18/2025 8:40 AM EDT XR CHEST 2V 05/15/2025 10:49 AM EDT ALL BASIC METABOLIC PANEL Routine 05/15/2025 10:35 AM EDT [facility] APTT Routine 05/15/2025 10:35 AM EDT SRMCOH PROTHROMBIN TIME INR W/O COUM Routine 05/15/2025 10:35 AM EDT ALL CBC WITH AUTO DIFF Routine 05/15/2025 10:35 AM EDT ECG 12-LEAD 05/15/2025 8:31 AM EDT XR FOOT LT MIN 3V 04/22/2025 3:2 5 PM EDT POCT GLYCOSYLATED HEMOGLOBIN (HGB A1C) Routine 03/27/2025 8:57 AM EDT Type 2 diabetes mellitus with other circulatory complications (HCC) MICROALBUMIN / CREATININE URINE RATIO Routine 12/01/2024 10:03 AM EST Type 2 diabetes mellitus with other circulatory complications (HCC) COLOR FUNDUS PHOTOGRAPHY - OU - BOTH EYES Routine 06/27/2022 12:00 PM EDT LAB COLOGUARD COLON CANCER SCREEN Routine 03/27/2022 from Last 3 Months or Most Recently Relevant to Health Maintenance Results * XR FOOT LT MIN 3V (05/20/2025 8:21 AM EDT) Only the most recent of2 resultswithin the time period is included. Anatomical Region Laterality Modality Other 05/20/2025 8:21 AM EDT Narrative 05/20/2025 8:23 AM EDT The [address] [address] XRay Report Signed Patient: JANICE PANDYA MR#: [id number] : 1955 Acct:[id number] Age/Sex: 70 / M ADM Date: 05/19/25 Loc: SURGOUT Attending Dr: Nisha Ivory D.P.M. Ordering Physician: Nisha Ivory D.P.M. Date of Service: 05/19/25 Procedure(s): XR foot LT min 3V Accession Number(s): [id number] cc: NITISH MARTIN ; Nisha Ivory D.P.M. [place] [address] Patient Name: JANICE PANDYA MRN: [id number] date: 1955 Sex: M [facility] Current Patient Location: Accession/Order Number: [id number] Exam Date: 05/20/2025 08:15 Report Date: 05/20/2025 08:21 At the request of: NISHA IVORY DPJudie Procedure: XR foot LT min 3V LEFT FOOT - 3 views CLINICAL DATA: Follow-up after surgery. Ulcer at the second metatarsal. COMPARISON: 04/22/2025 AP, lateral and oblique views were obtained. There is a splint that obscures fine bone detail. A screw is again noted through the proximal interphalangeal joint of the second toe. Deformity at the proximal interphalangeal joints of the third through fifth toes was better seen without the splint. There is interval resection of the head of the second metatarsal. There is no obvious acute fracture given the splint artifact. There is slight lateral subluxation of the distal phalanx of the first toe with moderate degenerative change at the adjacent joint. Minor degenerative change is also visualized at the first metatarsal phalangeal joint. A plantar calcaneal spur is seen. There is soft tissue swelling and subcutaneous air over the dorsum of the foot, presumed to be postoperative. XR/XR foot LT min 3V IMPRESSION: INTERVAL AMPUTATION OF THE HEAD OF THE SECOND METATARSAL. ADDITIONAL POSTOPERATIVE WELL DEGENERATIVE CHANGES, DESCRIBED. Impression dictated by: Melani Owens M.D. 05/20/2025 8:21 AM Dictation Location: [place] [address] Electronically authenticated by: [id number] Y Date: 05/20/2025 08:21 Dictated By: Melani Owens M.D. Signed By: 05/20/25822 DD/ 0 TD/TT: Herbicide Service Sales Representative: Procedure Note Radiology, Radiologist, - 05/20/2025 [place] [address] XRay Report Signed Patient: JANICE PANDYA Jr.MR#: [id number] : 1955cct:[id number] Age/Sex: 70 / MADM Date: 05/19/25 Loc: SURGOUT Attending Dr: Nisha Ivory D.P.M. Ordering Physician: Nisha Ivory D.P.M. Date of Service: 05/19/25 Procedure(s): XR foot LT min 3V Accession Number(s): [id number] cc: NITISH MARTIN ; Nisha Ivory D.P.M. The [place] [address] Patient Name: JANICE PANDYA MRN: [id number] date: 1955 Sex: M Assigned Patient Location: [facility] Current Patient Location: Accession/Order Number: [id number] Exam Date: 05/20/2025 08:15 Report Date: 05/20/2025 08:21 At the request of: NISHA IVORY DPJudie Procedure: XR foot LT min 3V LEFT FOOT - 3 views CLINICAL DATA: Follow-up after surgery. Ulcer at the second metatarsal. COMPARISON: 04/22/2025 AP, lateral and oblique views were obtained. There is a splint thatobscures fine bone detail. A screw is again noted through the proximalinterphalangeal joint of the second toe. Deformity at the proximal interphalangeal jointsof the third through fifth toes was better seen without the splint. There is interval resection of the head of the second metatarsal. There is noobvious acute fracture given the splint artifact. There is slight lateralsubluxation of the distal phalanx of the first toe with moderate degenerative changeat the adjacent joint. Minor degenerative change is also visualized at thefirst metatarsal phalangeal joint. A plantar calcaneal spur is seen. There issoft tissue swelling and subcutaneous air over the dorsum of the foot, presumedto be postoperative. XR/XR foot LT min 3V IMPRESSION: INTERVAL AMPUTATION OF THE HEAD OF THE SECOND METATARSAL. ADDITIONAL POSTOPERATIVE WELL DEGENERATIVE CHANGES, DESCRIBED. Impression dictated by: Melani Owens M.D. 05/20/2025 8:21 AM Dictation Location: [place] [address] Electronically authenticated by: [id number] Y Date: 508:21 Dictated By: Melani Owens M.D. Signed By:05/20/25822 DD/ 0 TD/TT: Herbicide Service Sales Representative: us Generic External Data Provider [facility] Final Result * SEGMENTAL BLOOD PRESSURE (05/18/2025 8:40 AM EDT) Anatomical Region Laterality Modality Radiographic Kelly ging 05/18/2025 8:40 AM EDT Narrative 05/19/2025 12:57 [place] [address] Cardiology Report Signed Patient: JANICE PANDYA Jr. MR#: [id number] : 1955 Acct:[id number] Age/Sex: 70 / M ADM Date: 05/18/25 Loc: CARD Attending Dr: Gisela HARRIS Ordering Physician: Gisela Crandall Date of Service: 05/18/25 Procedure(s): CA segmental UE or LE ANTHONY Accession Number(s): [id number] cc: NITISH MARTIN The [place] Test Date: 2025-05-18 Pat Name: JANICE PANDYA Department: Room: - Gender: Male Cst: : 1955 Requested By: Gisela Crandall Order Number: [id number] Reading MD: DEBRA FAITH Interpretive Statements Normal segmental pressures and waveforms in both lower extremities to the level of the ankle. Significant pressure drop and dampened pressure waveforms between the lower thigh and ankle bilaterally suggestive of below knee peripheral arterial disease. Mildly reduced ankle-brachial indices bilaterally; left worse than right. Abnormal toe brachial indices more pronounced on the right lower extremity. Given the significantly reduced TBI's, the ankle-brachial indices may be falsely elevated due to calcified vessels. Electronically Signed On 05-19-2025 12:57:12 EDT by DEBRA FAITH Dictated By: Debra Faith M.D. Signed By: 05/19/25 1257 05/19/25 1257 DD/ 0840 TD/TT: Herbicide Service Sales Representative: Procedure Note Radiology, Radiologist, MD - 05/19/2025 [place] [address] Cardiology Report Signed Patient: JANICE PANDYA Jr.MR#: [id number] : 1955cct:[id number] Age/Sex: 70 / MADM Date: 05/18/25 Loc: CARD Attending Dr: Gisela HARRIS Ordering Physician: Gisela Crandall Date of Service: 05/18/25 Procedure(s): CA segmental UE or LE ANTHONY Accession Number(s): [id number] cc: NITISH MARTIN [facility] [place] Test Date: 2025-05-18 Pat Name: JANICE PANDYA Department: Room: - Gender: Male Cst: : 1955 Requested By: Gisela Crandall Order Number: [id number] Reading MD: DEBRA FAITH Interpretive Statements Normal segmental pressures and waveforms in both lower extremities to the level of the ankle. Significant pressure drop and dampened pressure waveforms between thelower thigh and ankle bilaterally suggestive of below knee peripheral arterial disease. Mildly reduced ankle-brachial indices bilaterally; left worse than right. Abnormal toe brachial indices more pronounced on the right lowerextremity. Given the significantly reduced TBI's, the ankle-brachial indices may be falsely elevated due to calcified vessels. Electronically Signed On 05-19-2025 12:57:12 EDT by DEBRA FAITH Dictated By: Debra Faith M.D. Signed By:05/19/25 1257 05/19/25 1257 DD/ 0840 TD/TT: Herbicide Service Sales Representative: Generic External Data Provider IMG XR PROCEDURES Final Result * XR CHEST 2V (05/15/2025 10:49 AM EDT) Anatomical Region Laterality Modality Other 05/15/2025 10:4 9 AM EDT Narrative 05/15/2025 10:51 [place] [address] XRay Report Signed Patient: JANICE PANDYA Jr. MR#: [id number] : 1955 Acct:[id number] Age/Sex: 70 / M ADM Date: 05/15/25 Loc: [facility] Attending Dr: Nisha Ivory D.P.M. Ordering Physician: Nisha Ivory D.P.M. Date of Service: 05/15/25 Procedure(s): XR chest 2V Accession Number(s): [id number] cc: NITISH MARTIN ; Nisha Ivory D.P.M. [place] [address] Patient Name: JANICE PANDYA MRN: [id number] date: 1955 Sex: M Assigned Patient Location: [facility] Current Patient Location: [facility] Accession/Order Number: [id number] Exam Date: 05/15/2025 10:46 Report Date: 05/15/2025 [...] Owens M.D. 05/15/2025 10:49 AM Dictation Location: [place] [address] Electronically authenticated by: [id number] Y Date: 05/15/2025 10:49 Dictated By: Melani Owens M.D. Signed By: 05/15/25 1051 DD/ 1049 TD/TT: Herbicide Service Sales Representative: Procedure Note Radiology, Radiologist, - 05/15/2025 [place] [address] XRay Report Signed Patient: JANICE PANDYA Jr.MR#: [id number] : 1955cct:[id number] Age/Sex: 70 / MADM Date: 05/15/25 Loc: [facility] Attending Dr: Nisha Ivory D.P.M. Ordering Physician: Nisha Ivory D.P.M. Date of Service: 05/15/25 Procedure(s): XR chest 2V Accession Number(s): [id number] cc: NITISH MARTIN ; Nisha Ivory D.P.M. The [place] [address] Patient Name: JANICE PANDYA MRN: [id number] date: 1955 Sex: M Assigned Patient Location: [facility] Current Patient Location: [facility] Accession/Order Number: [id number] Exam Date: 05/15/2025 10:46 Report Date: 05/15/2025 [...] Owens M.D. 05/15/2025 10:49 AM Dictation Location: [place] [address] Electronically authenticated by: [id number] Y Date: 0:49 Dictated By: Melani Owens M.D. Signed By:05/15/25 1051 DD/ 1049 TD/TT: Herbicide Service Sales Representative: Generic External Data Provider [facility] Final Result * SRMCOH PROTHROMBIN TIME INR W/O COUM [...] CLINISYNC F inal Result Performing Organization Address [facility]/ZIP Co de Phone Number [facility] * [facility] APTT (05/15/2025 10:35 AM EDT) PARTIAL THROMBOPLASTIN TIME 32.2 22.3 - 36.2 sec TB 05/15/2025 10:3 5 AM EDT 05/15/2025 10:40 AM EDT Narrative CLIN[facility]NC - 05/15/2025 11:18 AM EDT Generic External Data Provider [facility] F inal Result [facility] * (ABNORMAL) ALL CBC WITH AUTO DIFF [...] External Data Provider CLIN[facility]NC F inal Result [facility] * (ABNORMAL) ALL BASIC METABOLIC PANEL (05/15/2025 [...] 0.70 - 1.30 mg/dL TBH TBH EGFR-AF ANGOLAN >60 >=60 mL/min/1.7 3m 2 TBH TBH EGFR-NON AF ANGOLAN 54(L) >=60 mL/min/1.7 3m 2 TBH BUN CREATININE RATIO 18.9 TBH CALCIUM 8.5 8.5 - 10.1 mg/dL [facility] 05/15/2025 10:3 5 AM EDT 05/15/2025 10:40 AM EDT Narrative [facility]IN[facility] - 05/15/2025 11:26 AM EDT us Generic External Data Provider [facility]IN[facility] F inal Result Performing Organization Address City/State/[facility] Co de Phone Number [facility] * ECG 12-LEAD (05/15/2025 8:31 AM EDT) Anatomical Region Laterality Modality Other 05/15/2025 8:31 AM EDT Narrative 05/19/2025 4:10 [place] [address] Electrocardiograph Report Signed Patient: JANICE PANDYA Jr. MR#: [id number] : 1955 Acct:[id number] Age/Sex: 70 / M ADM Date: 05/15/25 Loc: PST Attending Dr: Nisha Ivory D.P.M. Ordering Physician: Nisha Ivory D.P.M. Date of Service: 05/15/25 Procedure(s): ECG 12 lead Accession Number(s): [id number] cc: [facility] [place] Test Date: 2025-05-15 Pat Name: JANICE PANDYA Department: Room: - Gender: Male Cst: : 1955 Requested By: NISHA IVORY Order Number: [id number] Reading MD: DEBRA FAITH Measurements Intervals [place] Rate: 63 P: 21 WY: 288 QRS: 35 QRSD: 114 T: 146 QT: 410 QTc: 423 Interpretive Statements SINUS RHYTHM WITH FIRST DEGREE AV BLOCK MODERATE INTRAVENTRICULAR CONDUCTION DELAY [105+ ms QRS DURATION, 80+ ms Q/S IN V1/V2, NO Q AND 60+ ms R IN I/aVL/V5/V6] NONSPECIFIC ST T-WAVE ABNORMALITY Compared to ECG 03/23/2022 05:05:27 No significant changes Electronically Signed On 05-19-2025 16:10:06 EDT by DEBRA FAITH Dictated By: Debra Faith M.D. Signed By: 05/19/25 1610 DD/ 0831 TD/TT: Herbicide Service Sales Representative: Procedure Note Radiology, Radiologist, MD - 05/19/2025 [place] [address] Electrocardiograph Report Signed Patient: JANICE PANDYA Jr.MR#: [id number] : 1955cct:[id number] Age/Sex: 70 / MADM Date: 05/15/25 Loc: PST Attending Dr: Nisha Ivory D.P.M. Ordering Physician: Nisha Ivory D.P.M. Date of Service: 05/15/25 Procedure(s): ECG 12 lead Accession Number(s): [id number] cc: [facility] [place] Test Date: 2025-05-15 Pat Name: JANICE PANDYA Department: Room: - Gender: Male Cst: : 1955 Requested By: NISHA IVORY Order Number: [id number] Reading MD: DEBRA FAITH Measurements Intervals [place] Rate: 63 P: 21 WY: 288 QRS: 35 QRSD: 114 T: 146 QT: 410 QTc: 423 Interpretive Statements SINUS RHYTHM WITH FIRST DEGREE AV BLOCK MODERATE INTRAVENTRICULAR CONDUCTION DELAY [105+ ms QRS DURATION, 80+ msQ/S IN V1/V2, NO Q AND 60+ ms R IN I/aVL/V5/V6] NONSPECIFIC ST T-WAVE ABNORMALITY Compared to ECG 03/23/2022 05:05:27 No significant changes Electronically Signed On 05-19-2025 16:10:06 EDT by DEBRA FAITH Dictated By: Debra Faith M.D. Signed By:05/19/25 1610 DD/ 0831 TD/TT: Herbicide Service Sales Representative: Generic External Data Provider [facility] Final Result * POCT glycosylated hemoglobin (Hb A1C) docked device (03/27/2025 8:57 AM EDT) Hemoglobin A1C 7.1 Blood Venous blood specimen / Unknown 03/27/2025 8:57 AM EDT Lashaun Madison DO POINT OF CARE TEST ENTER/E DIT ORDERABLES Final Result * (ABNORMAL) Microalbumin / creatinine [...] AM EST Performed at: [facility] [id number] [employer] Metalsmith: Leonardo Stevens PhD, Phone: [phone] Lashaun Madison DO LAB URINE ORDERABLES Final Result [facility] * Color Fundus Photography - OU - Both Eyes (06/27/2022 12:00 PM EDT) Anatomical Region Laterality Modality Head Fundus Photograp hy 06/27/2022 12:0 0 PM EDT Narrative 06/27/2022 12:00 PM EDT [facility] LOC[facility]:[id number] [facility] Procedure Note CONVERSION, GENERIC - 03/21/2023 [facility] LOC[facility]:[id number] [facility] us Lashaun Madison DO OPHTH PHOTOGRAPHY Final [...] Calle et al, N Engl J Med 2014;370(14):2293-1819) The normal value (reference range) for this assay is negative. COLOGUARD RE-SCREENING RECOMMENDATION: Periodic colorectal cancer screening is an important part of preventive healthcare for asymptomatic individuals at average risk for colorectal cancer. Following a negative Cologuard result, the [place] Cancer Society and U.S. Multi-Society Task Force screening guidelines recommend a Cologuard re-screening interval of 3 years. References: [place] Cancer Society Guideline for Colorectal Cancer Screening: https://www.cancer.org/cancer/gyocq-dkbmfp-diwgph/wvqwfdukq-kekwttrvc-fnzfrpf/ac s-rec ommendations.html.; [place] DK, Oren CR, Harvey RomanK, Colorectal Cancer Screening: Recommendations for Physicians and Patients from the U.S. Multi-Society Task Force on Colorectal Cancer Screening , Am J Gastroenterology 2017; 112:1962-3694. TEST DESCRIPTION: Composite algorithmic analysis of stool [...] (Payam Dillon al, N Engl J Med 2014;370(14):7534-5391.) Cologuard may produce a false negative or false positive result (no colorectal cancer or precancerous polyp present at colonoscopy follow up). A negative Cologuard test result does not guarantee the absence of CRC or advanced adenoma (pre-cancer). The current Cologuard screening interval is every 3 years. ([place] Cancer Society and U.S. Multi-Society Task Force). Cologuard performance data in a 10,000 patient pivotal study using colonoscopy as the reference method can be accessed at the following location: www.[employer] [employer]/results. Additional description of the Cologuard test process, warnings and precautions can be found at www.cologuard.com. 03/27/2022 Robin HARRIS LAB MOLECULAR DIAGNOSTICS ORDERA BLES Final Result [facility] from Last 3 Months or Most Recently Relevant to Health Maintenance Insurance [employer] Care Teams Cloth Calender Relationship Specialty Start Date End Date Lashaun Madison DO [address] [place] [address] PCP - ACO Reach 03/29/23 Nitish Martin DO [address] [place] [address] PCP - General Family Medicine 03/13/23 Elliot Elias MD [address] [facility] [address] [place] [address] Referring Physician Cardiology 12/04/24 Nisha Ivory MD [address] [place] [address] [place] [address] Referring Physician Podiatry 12/04/24
--- OUTSIDE RECORDS SUMMARY | 2025-05-27 09:20 | XMS_ITS | Encounter Summary ---
Author Organization [facility] Address [address] [place] [address] Care Team Providers Care Special Events Assistant Name Role Phone Lashaun Madison DO Unavailable [phone] Nitish Agrawal DO Primary Care Provider [phone] Elliot Elias MD Unavailable [phone] Ranjan Ivory MD Unavailable [phone] Encounter Details Date Type Department Care Team (Late Contact Info) Description 05/18/2025 Clinisync Result Encounter [facility] External Department [...] Visit [facility] [address] [facility] [address] [place] [phone] Lashaun aMdison, DO [address] [place] [address] 12/07/2025 10:00 AM EST Office Visit [facility] [address] [place] [address] Joyce Loyd L, RADIO REPAIRER DOMESTIC [address] [place], [place] [address] documented as of this encounter Procedures Procedure Name Priority Date/Time Associated Diagnosis Comments SEGMENTAL BLOOD PRESSURE 05/18/2025 8:40 AM EDT documented in this encounter Results * SEGMENTAL BLOOD PRESSURE (05/18/2025 8:40 AM EDT) Anatomical Region Laterality Modality Radiographic Kelly ging 05/18/2025 8:40 AM EDT Narrative 05/19/2025 12:57 [place] [address] Cardiology Report Signed Patient: JANICE PANDYA Jr. MR#: [id number] : 1955 Acct:[id number] Age/Sex: 70 / M ADM Date: 05/18/25 Loc: CARD Attending Dr: Gisela HARRIS Ordering Physician: Gisela Crandall Date of Service: 05/18/25 Procedure(s): CA segmental UE or LE ANTHONY Accession Number(s): [id number] cc: NITISH AGRAWAL [facility] Test Date: 2025-05-18 Pat Name: JANICE PANDYA Department: Room: - Gender: Male Hedis Review Nurse: : 1955 Requested By: Gisela Crandall Order Number: [id number] Jailyn MD: DEBRA FAITH Interpretive Statements Normal segmental [...] 05/19/25 1257 05/19/25 1257 DD/ 0840 TD/TT: Utility Service Worker: Procedure Note Radiology, Radiologist, MD - 05/19/2025 [place] [address] Cardiology Report Signed Patient: JANICE PANDYA Jr.MR#: [id number] : 1955cct:[id number] Age/Sex: 70 / MADM Date: 05/18/25 Loc: CARD Attending Dr: Gisela HARRIS Ordering Physician: Gisela Crandall Date of Service: 05/18/25 Procedure(s): CA segmental UE or LE ANTHONY Accession Number(s): [id number] cc: NITISH AGRAWAL [facility] Test Date: 2025-05-18 Pat Name: JANICE PANDYA Department: Room: - Gender: Male Hedis Review Nurse: : 1955 Requested By: Gisela Crandall Order Number: [id number] Reading MD: DEBRA FAITH Interpretive Statements Normal [...] By:05/19/25 1257 05/19/25 1257 DD/ 0840 TD/TT: Utility Service Worker: Generic External Data Provider IMG XR PROCEDURES Final Result documented in this encounter Visit Diagnoses Not on filedocumented in this encounter Additional Health Concerns Assessment Noted Time PHQ-9 Depression Total Score: 0 12/04/19 25 11:00 AM EST documented as of this encounter Care Teams Special Events Assistant Relationship Specialty Start Date End Date Lashaun Madison DO [address] [place] [address] PCP - ACO Reach 03/29/23 Nitish Agrawal DO [address] [place] [address] PCP - General Family Medicine 03/13/23 Elliot Elias MD 703 [facility] 2, [address] [place] [address] Referring Physician Cardiology 12/04/24 Ranjan Ivory MD [address] [place] [address] [place] [address] Referring Physician Podiatry 12/04/24 documented as of this encounter
--- OUTSIDE RECORDS SUMMARY | 2025-05-27 09:20 | XMS_ITS | Encounter Summary ---
Author Organization [facility] Address [address] [place] [address] Care Team Providers Care Advertising Representative Name Role Phone Lashaun Madison Judie DO Unavailable [phone] Nitish Agrawal DO Primary Care Provider [phone] Elliot Elias MD Unavailable [phone] Ranjan Ivory MD Unavailable [phone] Encounter Details Date Type Department Care Team (Late st Contact Info) Description 12/04/2024 Abstract [facility] [address] [facility] [address] [place] [address] Nitish Agrawal, [address] [facility] 230 [place] [address] Social History Tobacco Use Types Packs/Day Years [...] 09/21/2025 8:30 AM EST Office Visit [facility] [address] [place] [address] Lashaun Madison, [address] [place] [address] 12/07/2025 10:00 AM EST Office Visit [facility] [address] [place] [address] Joyce Loyd, LAZARO [address] [place] [address] documented as of this encounter Visit Diagnoses Not on filedocumented in this encounter Additional Health Concerns Assessment Noted Time PHQ-9 Depression Total Score: 0 12/04/19 11:00 AM EST documented as of this encounter Care Teams Advertising Representative Relationship Specialty Start Date End Date Lashaun Madison DO [address] [place] [address] PCP - ACO Reach 03/29/23 Nitish Agrawal DO [address] [place] [address] PCP - General Family Medicine 03/13/23 Elliot Elias MD 703 [facility] 2, [address] [place] [address] Referring Physician Cardiology 12/04/24 Ranjan Ivory MD [address] [place] [address] [place] [address] Referring Physician Podiatry 12/04/24 documented as of this encounter
--- OUTSIDE RECORDS SUMMARY | 2025-05-27 09:20 | XMS_ITS | Encounter Summary ---
Author Organization [facility] Address [address] [place] [address] Care Team Providers Care Concrete Inspector Name Role Phone Lashaun Madison Judie DO Unavailable [phone] Nitish Agrawal DO Primary Care Provider [phone] Elliot Elias MD Unavailable [phone] Ranjan Ivory MD Unavailable [phone] Encounter Details Date Type Department Care Team ([facility] Contact Info) Description 05/19/2025 Abstract [facility] 230 [address] [facility] [address] [place] [address] Nitish Agrawal, [address] [facility] 230 [place] [address] Social History Tobacco Use Types Packs/Day Years [...] Upcoming Encounters Date Type Department Care Team ([facility] Contact Info) Description 09/21/2025 8:30 AM EST Office Visit [facility] [address] [place] [address] Lashaun Madison DO [address] [place] [address] 12/07/2025 10:00 AM EST Office Visit [facility] [address] [place] [address] Joyce Loyd, KNITTED GARMENT FINISHER [address] [place], [place] [address] documented as of this encounter Visit Diagnoses Not on filedocumented in this encounter Additional Health Concerns Assessment Noted Time PHQ-9 Depression Total Score: 0 12/04/19 11:00 AM EST documented as of this encounter Care Teams Concrete Inspector Relationship Specialty Start Date End Date Lashaun Madison DO [address] [place] [address] PCP - ACO Reach 03/29/23 Nitish Agrawal DO [address] [place] [address] PCP - General Family Medicine 03/13/23 Elliot Elias MD 703 [facility] 2, [address] [place] [address] Referring Physician Cardiology 12/04/24 Ranjan Ivory MD [address] [place] [address] [place] [address] Referring Physician Podiatry 12/04/24 documented as of this encounter
--- OUTSIDE RECORDS SUMMARY | 2025-05-27 09:20 | XMS_ITS | Encounter Summary ---
Author Organization [facility] Address [address] [place] [address] Care Team Providers Care Operators Teacher Name Role Phone Lashaun Madison DO Unavailable [phone] Nitish Agrawal DO Primary Care Provider [phone] Elliot Elias MD Unavailable [phone] Ranjan Ivory MD Unavailable [phone] Encounter Details Date Type Department Care Team (Late st Contact Info) Description 06/30/2023 Abstract [facility] [address] [place] [address] Kiel Lozano, DPM [address] [place], [place] [phone] Social History Tobacco Use Types Packs/Day Years [...] Visit [facility] [address] [facility] 230 [place] [address] Lashaun Madison DO [address] [facility] 230 [place] [address] 12/07/2025 10:00 AM EST Office Visit [facility] [address] [place] [address] Joyce Loyd, INSIDE SALES ADVERTISING EXECUTIVE [address] [place] [address] documented as of this encounter Visit Diagnoses Not on filedocumented in this encounter Care Teams Operators Teacher Relationship Specialty Start Date End Date Lashaun Madison DO [address] [place] [address] PCP - ACO Reach 03/29/23 Nitish Agrawal DO [address] [place] [address] PCP - General Family Medicine 03/13/23 Elliot Elias MD [address] [place] [address] 2, [address] [place] [address] Referring Physician Cardiology 12/04/24 Ranjan Ivory MD [address] [place] [address] [place] [address] Referring Physician Podiatry 12/04/24 documented as of this encounter
--- OUTSIDE RECORDS SUMMARY | 2025-05-27 09:20 | XMS_ITS | Encounter Summary ---
Author Organization [facility] Address [address] [place] [address] Care Team Providers Care Jewelry Inspector Name Role Phone Lashaun Madison Judie DO Unavailable [phone] Nitish Agrawal DO Primary Care Provider [phone] Elliot Elias MD Unavailable [phone] Ranjan Ivory MD Unavailable [phone] Encounter Details Date Type Department Care Team (Late st Contact Info) Description 08/09/2023 Orders Only [facility] [address] [facility] [address] [place] [address] A, Unknown Practice [address] [place], [place] [phone] Social History Tobacco Use Types Packs/Day Years [...] [address] [place] [address] Lashaun Madison DO [address] [place] [address] 12/07/2025 10:00 AM EST Office Visit [facility] [address] [place] [address] Joyce Loyd, LAZARO [address] [place] [address] documented as of this encounter Procedures Procedure [...] on filedocumented in this encounter Care Teams Jewelry Inspector Relationship Specialty Start Date End Date Lashaun Madison DO [address] [place] [address] PCP - ACO Reach 03/29/23 Nitish Agrawal DO [address] [place] [address] PCP - General Family Medicine 03/13/23 Elliot Elias MD 703 [facility] 2, [address] [place] [address] Referring Physician Cardiology 12/04/24 Ranjan Ivory MD [address] [place] [address] Dr LUCAS [place], [facility] Referring Physician Podiatry 12/04/24 documented as of this encounter
--- OUTSIDE RECORDS SUMMARY | 2025-05-27 09:20 | XMS_ITS | Encounter Summary ---
Author Organization [facility] Address [address] [place] [address] Phone Care Team Providers Care Church Official Name Role Phone Nitish Agrawal DO Primary Care Provider [phone] Encounter Details Date Type Department Care Team (Late st Contact Info) Description 03/07/2021 Orders Only [facility] [address] [place] [address] Conversion, Onbase Social History Tobacco Use Types [...] Description 08/04/2025 11:10 AM EDT Office Visit [facility] 703 [facility] [address] [place] [address] Martin Elias DO [address], [address] [place] [address] Scheduled Orders Name Type Priority Associated Diagnoses Orde r Schedule OUTSIDE LAB SCAN Lab Ordered: 03/07/2021 documented as of this encounter Visit Diagnoses Not on filedocumented in this encounter Care Teams Church Official Relationship Specialty Start Date End Date Nitish Agrawal DO [address] [place] [address] PCP - General 09/18/19 documented as of this encounter
--- OUTSIDE RECORDS SUMMARY | 2025-05-27 09:20 | XMS_ITS | Encounter Summary ---
Author Organization [facility] Address [address] [place] [address] Care Team Providers Care Director Instructional Material Name Role Phone Lashaun Madison DO Unavailable [phone] Nitish Agrawal DO Primary Care Provider [phone] Elliot Elias MD Unavailable [phone] Nisha Ivory MD Unavailable [phone] Encounter Details Date Type Department Care Team (Late Contact Info) Description 05/20/2025 Clinisync Result Encounter [facility] External Department [...] Visit [facility] [address] [facility] [address] [address] [place] [address] Lashaun Madison M, DO [address] [place] [address] 12/07/2025 10:00 AM EST Office Visit [facility] [address] [place] [address] Joyce Loyd L, LODGING FACILITIES MANAGER [address] [place], [place] [phone] documented as of this encounter Procedures Procedure Name Priority Date/Time Associated Diagnosis Comments XR FOOT LT MIN 3V 05/20/2025 8:2 1 AM EDT documented in this encounter Results * XR FOOT LT MIN 3V (05/20/2025 8:21 AM EDT) Anatomical Region Laterality Modality Other 05/20/2025 8:21 AM EDT Narrative 05/20/2025 8:23 [place] [address] XRay Report Signed Patient: JANICE PANDYA Jr. MR#: [id number] : 1955 Acct:[id number] Age/Sex: 70 / M ADM Date: 05/19/25 Loc: SURGOUT Attending Dr: Nisha Ivory D.P.M. Ordering Physician: Nisha Ivory D.P.M. Date of Service: 05/19/25 Procedure(s): XR foot LT min 3V Accession Number(s): [id number] cc: NITISH AGRAWAL ; Nisha Ivory D.P.M. The [address] [address] Patient Name: JANICE PANDYA MRN: [id number] date: 1955 Sex: M Assigned Patient Location: [facility] Current Patient Location: Accession/Order Number: [id number] Exam Date: 05/20/2025 08:15 Report Date: 05/20/2025 08:21 At the request of: NISHA IVORY DPM [...] Owens M.D. 05/20/2025 8:21 AM Dictation Location: [place] [address] Electronically authenticated by: [id number] Y Date: 05/20/2025 08:21 Dictated By: Melani Owens M.D. Signed By: 05/20/2523 DD/ 0 TD/TT: Ordnance Keeper: Procedure Note Radiology, Radiologist, MD - 05/20/2025 [place] [address] XRay Report Signed Patient: JANICE PANDYA Jr.MR#: [id number] : 6Acct:[id number] Age/Sex: 70 / MADM Date: 05/19/25 Loc: SURGOUT Attending Dr: Nisha Ivory D.P.M. Ordering Physician: Nisha Ivory D.P.M. Date of Service: 05/19/25 Procedure(s): XR foot LT min 3V Accession Number(s): [id number] cc: NITISH AGRAWAL ; Nisha Ivory D.P.M. [address] [address] Patient Name: JANICE PANDYA MRN: [id number] date: 1955 Sex: M Assigned Patient Location: SURGOUT Current Patient Location: Accession/Order Number: [id number] Exam Date: 05/20/2025 08:15 Report Date: 05/20/2025 [...] Owens M.D. 05/20/2025 8:21 AM Dictation Location: [place] [address] Electronically authenticated by: [id number] Y Date: 508:21 Dictated By: Melani Owens M.D. Signed By:05/20/25822 DD/ 0 TD/TT: Ordnance Keeper: us Generic External Data Provider [facility] Final Result documented in this encounter Visit Diagnoses Not on filedocumented in this encounter Additional Health Concerns Assessment Noted Time PHQ-9 Depression Total Score: 0 12/04/19 11:00 AM EST documented as of this encounter Care Teams Director Instructional Material Relationship Specialty Start Date End Date Lashaun Madison, DO [address] [facility] 230 [place] [address] PCP - ACO Reach 03/29/23 Nitish Agrawal DO [address] [facility] 230 [place] [address] PCP - General Family Medicine 03/13/23 Elliot Elias MD 703 [facility] 2, [address] [place] [address] Referring Physician Cardiology 12/04/24 Nisha Ivory MD [address] [place] [address] [place] [address] Referring Physician Podiatry 12/04/24 documented as of this encounter
--- OUTSIDE RECORDS SUMMARY | 2025-05-27 09:20 | XMS_ITS | Encounter Summary ---
Author Organization [facility] Address [address] [place] [address] Care Team Providers Care Shellfish Farming Supervisor Name Role Phone Lashaun Madison DO Unavailable [phone] Nitish Agrawal DO Primary Care Provider [phone] Elliot Elias MD Unavailable [phone] Ranjan Ivory MD Unavailable [phone] Encounter Details Date Type Department Care Team (Late st Contact Info) Description 08/06/2023 Abstract [facility] [address] [facility] [address] [place] [address] Lashaun Madison, [address] [facility] 230 [place] [address] Social History Tobacco Use Types Packs/Day Years [...] 09/21/2025 8:30 AM EST Office Visit [facility] [address] [place] [address] Lashaun Madison DO [address] [place] [address] 12/07/2025 10:00 AM EST Office Visit [facility] [address] [place] [address] Joyce Loyd NP [address] [place] [address] documented as of this encounter Visit Diagnoses Not on filedocumented in this encounter Care Teams Shellfish Farming Supervisor Relationship Specialty Start Date End Date Lashaun Madison DO [address] [place] [address] PCP - ACO Reach 03/29/23 Nitish Agrawal DO [address] [facility] 230 [place] [address] PCP - General Family Medicine 03/13/23 Elliot Elias MD 703 [facility] 2, [facility] 250 [place] [address] Referring Physician Cardiology 12/04/24 Ranjan Ivory MD [address] [place] [address] [place] [address] Referring Physician Podiatry 12/04/24 documented as of this encounter
--- OUTSIDE RECORDS SUMMARY | 2025-05-27 09:21 | XMS_ITS | Encounter Summary ---
Author Organization [facility] Address [address] [place] [address] Care Team Providers Care Park Maintainer Name Role Phone Lashaun Madison Judie DO Unavailable [phone] Nitish Agrawal DO Primary Care Provider [phone] Elliot Elias MD Unavailable [phone] Ranjan Ivory MD Unavailable [phone] Encounter Details Date Type Department Care Team (Late st Contact Info) Description 02/19/2024 Abstract [facility] 230 [address] [facility] [address] [place] [address] Nitish Agrawal, [address] [facility] 230 [place] [address] Social History Tobacco Use Types Packs/Day Years [...] 09/21/2025 8:30 AM EST Office Visit [facility] [address] [place] [address] Lashaun Madison, DO [address] [place] [address] 12/07/2025 10:00 AM EST Office Visit [facility] [address] [place] [address] Joyce Loyd, METAL SPRAYER [employer]ODUCTION [address] [place] [address] documented as of this encounter Visit Diagnoses Not on filedocumented in this encounter Care Teams Park Maintainer Relationship Specialty Start Date End Date Lashaun Madison DO [address] [place] [address] PCP - ACO Reach 03/29/23 Nitish Agrawal DO [address] [place] [address] PCP - General Family Medicine 03/13/23 Elliot Elias MD 703 [facility] 2, [address] [place] [address] Referring Physician Cardiology 12/04/24 Ranjan Ivory MD [address] [place] [address] [place] [address] Referring Physician Podiatry 12/04/24 documented as of this encounter
--- OUTSIDE RECORDS SUMMARY | 2025-05-27 09:21 | XMS_ITS | Encounter Summary ---
Author Organization [facility] Address [address] [place] [address] Phone Care Team Providers Care Cardiac/Vascular Sonographer Name Role Phone Nitish Agrawal DO Primary Care Provider [phone] Encounter Details Date Type Department Care Team (Late st Contact Info) Description 06/09/2022 Orders Only [facility] [address] [place] [address] Conversion, Onbase Social History Tobacco Use Types [...] AM EDT Office Visit [facility] 703 [facility] [address] [place] [address] Martin Elias DO [address], [address] [place] [address] Scheduled Orders Name Type Priority Associated Diagnoses Orde r Schedule OUTSIDE LAB SCAN Lab Ordered: 06/09/2022 documented as of this encounter Visit Diagnoses Not on filedocumented in this encounter Care Teams Cardiac/Vascular Sonographer Relationship Specialty Start Date End Date Nitish Agrawal DO [address] [place] [address] PCP - General 09/18/19 documented as of this encounter
--- OUTSIDE RECORDS SUMMARY | 2025-05-27 09:21 | XMS_ITS | Encounter Summary ---
Author Organization [facility] Address [address] [place] [address] Care Team Providers Care Area Attendant Name Role Phone Lashaun Madison DO Unavailable [phone] Nitish Agrawal DO Primary Care Provider [phone] Elliot Elias MD Unavailable [phone] Ranjan Ivory MD Unavailable [phone] Reason for Visit * Reason Comments Med Refill Encounter Details Date Type Department Care Team (Late st Contact Info) Description 03/04/2024 Refill [facility] [address] [facility] [address] [place] [address] Lashaun Madison, DO [address] [facility] 230 [place] [address] Type 2 diabetes mellitus with [...] 09/21/2025 8:30 AM EST Office Visit [facility] [address] [place] [address] Lashaun Madison DO [address] [place] [address] 12/07/2025 10:00 AM EST Office Visit [facility] [address] [place] [address] Joyce Loyd, SIMPLEX OPERATOR [address] [place] [address] documented as of this encounter Visit Diagnoses Diagnosis Type 2 diabetes mellitus with other circulatory complications (HCC) documented in this encounter Care Teams Area Attendant Relationship Specialty Start Date End Date Lashaun Madison DO [address] [place] [address] PCP - ACO Reach 03/29/23 Nitish Agrawal DO [address] [place] [address] PCP - General Family Medicine 03/13/23 Elliot [facility]as MD [facility], [address] [place] [address] Referring Physician Cardiology 12/04/24 Ranjan Ivory MD [address] [place] [address] Dr LUCAS [place], [facility] Referring Physician Podiatry 12/04/24 documented as of this encounter
--- OUTSIDE RECORDS SUMMARY | 2025-05-27 09:21 | XMS_ITS | Encounter Summary ---
Author Organization [facility] Address [address] [place] [address] Phone Care Team Providers Care Syrup Shed Supervisor Name Role Phone Nitish Agrawal DO Primary Care Provider [phone] Encounter Details Date Type Department Care Team (Late st Contact Info) Description 01/15/2019 Orders Only [facility] [address] [place] [address] Conversion, Onbase Social History Tobacco Use Types [...] Description 08/04/2025 11:10 AM EDT Office Visit [facility] 703 [facility] [address] [place] [address] Martin Elias DO 703 [facility] 2, [address] [place] [address] Scheduled Orders Name Type Priority Associated Diagnoses Orde r Schedule OUTSIDE LAB SCAN Lab Ordered: 01/15/2019 documented as of this encounter Visit Diagnoses Not on filedocumented in this encounter Care Teams Syrup Shed Supervisor Relationship Specialty Start Date End Date Nitish Agrawal DO [address] [place] [address] PCP - General 09/18/19 documented as of this encounter
--- OUTSIDE RECORDS SUMMARY | 2025-05-27 09:21 | XMS_ITS | Encounter Summary ---
Author Organization [facility] Address [address] [place] [address] Care Team Providers Care Afterschool Babysitter Name Role Phone Lsahaun Madison Judie DO Unavailable [phone] Nitish Agrawal DO Primary Care Provider [phone] Elliot Elias MD Unavailable [phone] Ranjan Ivory MD Unavailable [phone] Encounter Details Date Type Department Care Team ([facility] Contact Info) Description 05/15/2025 Abstract [facility] [address] [facility] [address] [place] [address] Nitish Agrawal, [address] [facility] 230 [place] [address] Social History Tobacco Use Types Packs/Day Years [...] Upcoming Encounters Date Type Department Care Team ([facility] Contact Info) Description 09/21/2025 8:30 AM EST Office Visit [facility] [address] [place] [address] Lashaun Madison DO [address] [place] [address] 12/07/2025 10:00 AM EST Office Visit [facility] [address] [place] [phone] Joyce Loyd, MECHANIC ASSISTANT [address] [place], [place] [phone] documented as of this encounter Visit Diagnoses Not on filedocumented in this encounter Additional Health Concerns Assessment Noted Time PHQ-9 Depression Total Score: 0 12/04/19 11:00 AM EST documented as of this encounter Care Teams Afterschool Babysitter Relationship Specialty Start Date End Date Lashaun Madison DO [address] [place] [address] PCP - ACO Reach 03/29/23 Nitish Agrawal DO [address] [place] [address] PCP - General Family Medicine 03/13/23 Elliot Elias MD [address] [facility] 2, [address] [place] [address] Referring Physician Cardiology 12/04/24 Ranjna Ivory MD [address] [place] [address] [place] [address] Referring Physician Podiatry 12/04/24 documented as of this encounter
--- OUTSIDE RECORDS SUMMARY | 2025-05-27 09:21 | XMS_ITS | Clinical Summary ---
[facility] Address [id number] [address] [place] [address] Care Team Providers Care Hash Slinger Name Role Phone Brittany York Primary Care Provider [phone] Social History Tobacco Use Types Packs/Day Years [...] Medical Devices Not on file Care Teams Hash Slinger Relationship Specialty Start Date End Date Brittany York APRN-CNP [address] [place] [address] PCP - General Family Medicine 01/12/21
--- OUTSIDE RECORDS SUMMARY | 2025-05-27 09:21 | XMS_ITS | Clinical Summary ---
Author Organization [facility] Address [address] [place] [address] Phone Care Team Providers Care Mesmerist Name Role Phone Nitish Agrawal DO Primary Care Provider [phone] Allergies Active Allergy Reactions Criticality Noted Date [...] Type Department Care Team Description 05/07/[address] [address] Franchesca Adan LPN POC 04/11/2025 Refill [facility] [address] [place] [address] Martin Elias, Multiple vessel coronary artery disease; Hypertension, unspecified type 03/17/[address] [place] [address] Franchesca Adan LPN 03/17/[address] [address] Cristin Fulton RN 03/01/[address] [address] Martin Elias, Hyperlipidemia, unspecified hyperlipidemia type from Last 3 Months Immunizations Immunization Administration [...] Description 08/04/2025 11:10 AM EDT Office Visit [address] [phone] Martin Elias, DO [address] [place] [address] Health Maintenance Due Date Last [...] on patient's age to complete this topic Insurance [facility] MEDIC[facility] SUPPLEMENT MEDICARE PART A AND B Care Teams Mesmerist Relationship Specialty Start Date End Date Nitish Agrawal DO [address] [place] [address] PCP - General 09/18/19
--- OUTSIDE RECORDS SUMMARY | 2025-05-27 09:21 | XMS_ITS | Encounter Summary ---
Author Organization [facility] Address [address] [place] [address] Care Team Providers Care Child Support Investigator Name Role Phone Lashaun Madison Judie DO Unavailable [phone] Nitish Agrawal DO Primary Care Provider [phone] Elliot Elias MD Unavailable [phone] Ranjan Ivory MD Unavailable [phone] Encounter Details Date Type Department Care Team (Late Contact Info) Description 10/15/2023 Abstract [facility] [address] [place] [phone] Kiel Lozano, DPM [address] [place], [place] [phone] Social History Tobacco Use Types Packs/Day Years [...] 09/21/2025 8:30 AM EST Office Visit [facility] [address] [place] [address] Lashaun Madison, DO [address] [place] [address] 12/07/2025 10:00 AM EST Office Visit [facility] [address] [place] [phone] Joyce Loyd, WOOD HEEL CEMENTER [address] [place] [address] documented as of this encounter Visit Diagnoses Not on filedocumented in this encounter Care Teams Child Support Investigator Relationship Specialty Start Date End Date Lashaun Madison, DO [address] [place] [address] PCP - ACO Reach 03/29/23 Nitish Agrawal DO [address] [place] [address] PCP - General Family Medicine 03/13/23 Elliot Elias MD 703 [facility] 2, [address] [place] [address] Referring Physician Cardiology 12/04/24 Ranjan Ivory MD [address] [place] [address] [place] [address] Referring Physician Podiatry 12/04/24 documented as of this encounter
--- OUTSIDE RECORDS SUMMARY | 2025-05-27 09:21 | XMS_ITS | Encounter Summary ---
Author Organization [facility] Address [address] [place] [address] Care Team Providers Care Medical Claims Examiner Name Role Phone Lashaun Madison Judie DO Unavailable [phone] Nitish Agrawal DO Primary Care Provider [phone] Elliot Elias MD Unavailable [phone] Ranjan Ivory MD Unavailable [phone] Encounter Details Date Type Department Care Team ([facility] Contact Info) Description 05/15/2025 Abstract [facility] [address] [facility] [address] [place] [address] Nitish Agrawal, [address] [facility] 230 [place] [address] Social History Tobacco Use Types Packs/Day Years [...] Upcoming Encounters Date Type Department Care Team ([facility] Contact Info) Description 09/21/2025 8:30 AM EST Office Visit [facility] [address] [place] [address] Lashaun Madison DO [address] [place] [address] 12/07/2025 10:00 AM EST Office Visit [facility] [address] [place] [phone] Joyce Loyd, OUTSIDE [employer]S SALES [address] [place], [place] [phone] documented as of this encounter Visit Diagnoses Not on filedocumented in this encounter Additional Health Concerns Assessment Noted Time PHQ-9 Depression Total Score: 0 12/04/19 11:00 AM EST documented as of this encounter Care Teams Medical Claims Examiner Relationship Specialty Start Date End Date Lashaun Madison DO [address] [place] [address] PCP - ACO Reach 03/29/23 Nitish Agrawal DO [address] [place] [address] PCP - General Family Medicine 03/13/23 Elliot Elias MD [address] [facility] 2, [address] [place] [address] Referring Physician Cardiology 12/04/24 Ranjan Ivory MD [address] [place] [address] [place] [address] Referring Physician Podiatry 12/04/24 documented as of this encounter
--- OUTSIDE RECORDS SUMMARY | 2025-05-27 09:21 | XMS_ITS | Encounter Summary ---
Author Organization [facility] Address [address] [place] [address] Care Team Providers Care Poultry Scalder Name Role Phone Lashaun Madison DO Unavailable [phone] Nitish Agrawal DO Primary Care Provider [phone] Elliot Elias MD Unavailable [phone] Nisha Ivory MD Unavailable [phone] Encounter Details Date Type Department Care Team [...] Visit [facility] [address] [facility] [place] [phone] Lashaun Madison M, DO [address] [place] [address] 12/07/2025 10:00 AM EST Office Visit [facility] [address] [place] [address] Joyce Loyd, CUSTOM WOOD STAIR BUILDER [address] [place], [...] EDT Narrative 05/15/2025 10:51 AM EDT The [address] [address] XRay Report Signed Patient: JANICE PANDYA Jr. MR#: [id number] : 1955 Acct:[id number] Age/Sex: 70 / M ADM Date: 05/15/25 Loc: PST Attending Dr: Nisha Ivory D.P.M. Ordering Physician: Nisha Ivory D.P.M. Date of Service: 05/15/25 Procedure(s): XR chest 2V Accession Number(s): [id number] cc: NITISH AGRAWAL ; Nisha Ivory D.P.M. The [address] [address] Patient Name: JANICE PANDYA MRN: [id number] date: 1955 Sex: M Assigned Patient Location: [facility] Current Patient Location: [facility] Accession/Order Number: [id number] Exam Date: 05/15/2025 10:46 Report Date: 05/15/2025 [...] Owens M.D. 05/15/2025 10:49 AM Dictation Location: [place] [address] Electronically authenticated by: [id number] Y Date: 05/15/2025 10:49 Dictated By: Melani Owens M.D. Signed By: 05/15/25 1051 DD/ 1049 TD/TT: Vibration Engineer: Procedure Note Radiology, Radiologist, MD - 05/15/2025 [place] [address] XRay Report Signed Patient: JANICE PANDYA Jr.MR#: [id number] : 1955cct:[id number] Age/Sex: 70 / MADM Date: 05/15/25 Loc: [facility] Attending Dr: Nisha Ivory D.P.M. Ordering Physician: Nisha Ivory D.P.M. Date of Service: 05/15/25 Procedure(s): XR chest 2V Accession Number(s): [id number] cc: NITISH AGRAWAL ; Nisha Ivory D.P.M. [place] [id number] Patient Name: JANICE PANDYA MRN: [id number] date: 1955 Sex: M Assigned Patient Location: [facility] Current Patient Location: [facility] Accession/Order Number: [id number] Exam Date: 05/15/2025 10:46 Report Date: 05/15/2025 [...] Owens M.D. 05/15/2025 10:49 AM Dictation Location: [place] [address] Electronically authenticated by: [id number] Y Date: 0:49 Dictated By: Melani Owens M.D. Signed By:05/15/25 1051 DD/ 1049 TD/TT: Vibration Engineer: Generic External Data Provider [facility] Final [...] 0.70 - 1.30 mg/dL TBH TBH EGFR-AF [place]ANDER >60 >=60 mL/min/1.7 3m 2 TB[facility] EGFR-NON AF [place]ANDER 54(L) >=60 mL/min/1.7 3m 2 TB[facility] BUN CREATININE RATIO 18.9 [facility] CALCIUM 8.5 8.5 - 10.1 mg/dL [facility] 05/15/2025 10:3 5 AM EDT 05/15/2025 10:40 AM EDT Narrative [facility] - 05/15/2025 11:26 AM EDT Generic External Data Provider [facility] F inal Result Performing Organization Address [facility] de Phone Number [facility] * [facility] APTT (05/15/2025 10:35 AM EDT) PARTIAL THROMBOPLASTIN TIME 32.2 22.3 - 36.2 sec TB 05/15/2025 10:3 5 AM EDT 05/15/2025 10:40 AM EDT Narrative [facility] - 05/15/2025 11:18 AM EDT Generic External Data Provider [facility] F inal Result Performing Organization Address [facility] de Phone Number [facility] * [facility] PROTHROMBIN TIME INR W/O COUM (05/15/2025 10:35 AM EDT) PROTHROMBIN TIME 11.1 9.0 - 11.6 sec TB TB INR 1.05 [facility] Comment: DESIRED INR: 2.0-3.0 CONDITIONS NOT LISTED BELOW 2.5-3.5 FOR PROSTHETIC HEART VALVE REPLACEMENT 2.5-3.5 RECURRENT THROMBOSIS 05/15/2025 10:3 5 AM EDT 05/15/2025 10:40 AM EDT [facility] - 05/15/2025 11:18 AM EDT Generic External Data Provider [facility] F inal Result Performing Organization Address [facility] de Phone Number [facility] * (ABNORMAL) ALL CBC WITH AUTO [...] External Data Provider [facility] F inal Result [facility] documented in this encounter Visit Diagnoses Not on filedocumented in this encounter Additional Health Concerns Assessment Noted Time PHQ-9 Depression Total Score: 0 12/04/19 25 11:00 AM EST documented as of this encounter Care Teams Poultry Scalder Relationship Specialty Start Date End Date Lashaun Madison DO [address] [facility] 230 [place] [address] PCP - ACO Reach 03/29/23 Nitish Agrawal DO [address] [facility] 230 [place] [address] PCP - General Family Medicine 03/13/23 Elliot Elias MD [address] [place] [address] 2, [facility] 250 [place] [address] Referring Physician Cardiology 12/04/24 Nisha Ivory MD [address] [place] [address] [place] [address] Referring Physician Podiatry 12/04/24 documented as of this encounter
--- OUTSIDE RECORDS SUMMARY | 2025-05-27 09:21 | XMS_ITS | Encounter Summary ---
Author Organization [facility] Address [address] [place] [address] Care Team Providers Care Sharepoint Net Developer Name Role Phone Lashaun Madison DO Unavailable [phone] Nitish Agrawal DO Primary Care Provider [phone] Elliot Elias MD Unavailable [phone] Ranjan Ivory MD Unavailable [phone] Encounter Details Date Type Department Care Team (Late st Contact Info) Description 02/19/2024 Abstract [facility] [address] [facility] 230 [place] [address] Lashaun Madison, [address] [facility] 230 [place] [address] Social History Tobacco Use Types Packs/Day Years [...] 8:30 AM EST Office Visit [facility] [address] [place] [address] Lashaun Madison, DO [address] [place] [address] 12/07/2025 10:00 AM EST Office Visit [facility] [address] [place] [address] Joyce Loyd, FREELANCE WRITER [address] [place] [address] documented as of this encounter Visit Diagnoses Not on filedocumented in this encounter Care Teams Sharepoint Net Developer Relationship Specialty Start Date End Date Lashaun Madison, DO [address] [place] [address] PCP - ACO Reach 03/29/23 Nitish Agrawal DO [address] [place] [address] PCP - General Family Medicine 03/13/23 Elliot Elias MD [address]03 [facility] 2, [address] [place] [address] Referring Physician Cardiology 12/04/24 Ranjan Ivory MD [address] [place] [address] [place] [address] Referring Physician Podiatry 12/04/24 documented as of this encounter
--- OUTSIDE RECORDS SUMMARY | 2025-05-27 09:40 | XMS_ITS | CCD ---
Author Organization [facility] Care Team Providers Care Sourcing Coordinator Name Role Phone NITISH AGRAWAL~[phone] UNKNOWN Unavailable Unavailable Ayisire, Eseoghene N Unavailable Unavailable Ayisadam, Eseoghene N Unavailable Unavailable Nitish Agrawal Unavailable Unavailable Unavailable Jaelyn Espinal Unavailable Tanja, Dr. Nitish Crump Primary Care UnavailMargaux Montiel Attending Unavailable Mark, Dr. Helga Storey Referring Unavail able Tanja, Dr. Nitish Crump Primary Care Unavaila daisy Elias, Dr. Martin Zarate Referring Unava ilable Curt, Dr. Martin Zarate Attending Unava ilable Mark, Dr. Helga Storey Attending Unavail able Tanja, Dr. Nitish Crump Primary Care Unavaila daisy Flores, Dr. Helga Storey Referring Unavail able NISHA FARRAR Attending Unavailable NISHA FARRAR Admitting Unavailable TANJA, DR CLEMENS Primary Care Unavailable PATRICIA, SHAIKH Magui Attending Unavailable DR NITISH AGRAWAL Primary Care Unavailable Husam Gamez Consulting Unavailable PATRICIA, JUNIOR H Admitting Unavailable NISHA FARRAR Procedure Practitioner UnaRHONDA Das Consulting Unavailable NISHA FARRAR Consulting Unavailable AGUBOSIM, WYATT Consulting Unavailable JESSICA STEIN Consulting Unavailable HELGA GOLDBERG Consulting Unavailable FAGABBI, JUNIOR H Consulting Unavailable AYYAGARI ., LILA Consulting Unavailable NISHA FARRAR Attending Unavailable NISHA FARRAR Admitting Unavailable DR NITISH AGRAWAL Primary Care Unavailable NISHA FARRAR Consulting Unavailable NISHA FARRAR Attending Unavailable NISHA FARRAR Admitting Unavailable DR NITISH AGRAWAL Primary Care Unavailable NISHA FARRAR Attending Unavailable NISHA FARRAR Admitting Unavailable DR NITISH AGRAWAL Primary Care Unavailable NISHA FARRAR Admitting Unavailable TANJA, DR [...] TANJA, DR CLEMENS Primary Care Unavailable AINSLEY, GISELA Admitting Unavailable AINSLEY, GISELA Attending Unavailable TANJA, DR CLEMENS Primary Care Unavailable HIGHLANDER, NISHA Núñez Attending Unavailable HIGHLANDER, NISHA Núñez Admitting Unavailable HIGHLANDER, NISHA Núñez Admitting Unavailable TANJA, DR CLEMENS Primary Care Unavailable HIGHLANDER, NISHA Núñez Consulting Unavailable HIGHLANDER, NISHA Núñez Attending Unavailable WHITAKER, JOSE MARTIN Consulting Unavailable TANJA, DR CLEMENS Primary [...] DR CLEMENS Primary Care Unavailable HIGHLANDER, NISHA Núñze Attending Unavailable HIGHLANDER, NISHA Núñez Admitting Unavailable TANJA, DR CLEMENS Primary Care Unavailable HIGHLANDER, NISHA Núñez Attending Unavailable HIGHLANDER, NISHA Núñez Admitting Unavailable Zieber, Husam Consulting Unavailable TANJA, DR CLEMENS Primary Care Unavailable HIGHLANDER, NISHA Núñez Consulting Unavailable HIGHLANDER, NISHA Núñez Admitting Unavailable TANJA, DR CLEMENS Primary Care Unavailable HIGHLANDER, NISHA Núñez Attending Unavailable Barbara Ellis Unavailable Nitish Agrawal DO Primary Care Provider [phone] Lashaun Bradley DO Unavailable Nitish Agrawal DO Primary Care Provider [phone] Elliot Elias MD Unavailable [phone] Nisha Farrar MD Unavailable Nitish Agrawal DO Primary Care Provider Elliot Elias MD Unavailable MARTIN ELIAS Referring Unavailable NITISH AGRAWAL Primary Care Unavailable LASHAUN BRADLEY Attending Unavailable NITISH AGRAWAL Referring Unavailable NITISH AGRAWAL Attending Unavailable LASHAUN BRADLEY Attending Unavailable NITISH AGRAWAL Referring Unavailable JOYCE LOYD Attending Unavailable LATHA CAICEDO Attending Unavailable LASHAUN BRADLEY Attending Unavailable NITISH AGRAWAL Attending Unavailable NITISH AGRAWAL Referring Unavailable BAIR CHOWDHURY Attending Unavailable LASHAUN BRADLEY Attending Unavailable MARTIN ELIAS Attending Unavailable MARTIN ELIAS Referring Unavailable NITISH AGRAWAL Primary Care Unavailable MARTIN ELIAS Referring Unavailable NITISH AGRAWAL Primary Care Unavailable Nisha Farrar DPM Attending Provider Nisha Farrar Attending Unavailable Nisha Farrar Admitting Unavailable Allergies Allergy Classification Reported Allergen(s) Allergy Type Date of Onset Reaction(s) Facility (5 sources) Angiotensin Converting Enzyme (Neris) Inhibitors; Translations: [NERIS Inhibitors] Allergy to drug (finding) 3 Hypotension [facility] Repository (7 sources) Angiotensin-conv erting enzyme inhibitor agent Drug Intolerance 3 Unknown [facility] Medications Current Medications Medication Drug Class(es) Dates Sig (Normalized) Sig (Original) aspirin 81 mg delayed release oral tablet (20 sources) Platelet Aggregation Inhibitor, Nonsteroidal Anti-inflammatory Drug Start: 11-07-2021 take 1 tablet by mouth once daily in the morning Aspirin Active atorvastatin 20 mg oral tablet (20 sources) HMG-CoA Reductase Inhibitor Start: 11-07-2021 take 1 tablet by mouth once daily in the evening atorvastatin (Lipitor) 20 MG tablet Indications: Mixed hyperlipidemia TAKE 1 TABLET BY MOUTH EVERY DAY IN THE EVENING FOR 90 DAYS 90 tablet 3 10/15/2024 Active Atorvastatin Jacki cium Active Blood Glucose Monitoring Suppl ([email or web address] Verio Flex System) w/Device kit (20 sources) Blood Glucose Monitoring Suppl (OneTouch Verio Flex System) w/Device kit Active canagliflozin 100 mg oral tablet (20 sources) Sodium-Glucose Cotransporter 2 Inhibitor Start: 05-10-202 2 take 1 tablet by mouth once daily Start: 11-07-2021 End: 03-10-2022 take 1 tablet by mouth once daily in the morning Canagliflozin (Invokana) 100 mg tablet Discontinued 100 MG PO Every morning November 07, 2021 1:00am March 10, 2022 10:11am Invokana Active carvedilol 6.25 mg oral tablet (20 sources) alpha-Adrenergic Feroz, beta-Adrenergic Feroz Start: 11-07-2021 take 1 tablet by mouth twice daily at mealtime carvedilol (Coreg) 6.25 mg tablet Indications: Multiple vessel coronary artery disease , Hypertension, unspecified type TAKE 1 TABLET BY MOUTH TWICE A DAY WITH FOOD 180 tablet 3 04/17/2024 Active Carvedilol Activ e cephalexin 500 mg oral tablet (1 source) Cephalosporin Antibacterial Start: 03-10-2022 take 1 tablet by mouth twice daily ciclopirox 10 mg/ml medicated shampoo (20 sources) Start: 06-27-2024 Ciclopirox 1 [...] oral tablet (20 sources) P2Y12 Platelet Inhibitor Start: 11-07-2021 take 1 tablet by mouth once daily at bedtime Clopidogrel Bisu lfate Active dapagliflozin 5 mg oral tablet (20 sources) Sodium-Glucose Cotransporter 2 Inhibitor Start: 03-10-2022 End: 03-03-2025 take 1 tablet by mouth once daily dapagliflozin (Farxiga) 5 MG Indications: Type 2 diabetes mellitus with other circulatory complications (HCC) TAKE 1 TABLET BY MOUTH EVERY DAY 90 tablet 03/02/2025 Active 0.5 ml dulaglutide 3 mg/ml auto-injector (17 sources) GLP-1 Receptor Agonist Start: 11-07-2021 End: 01-28-2025 Trulicity 0.75 M G/0.5ML Subcutaneous Solution Pen-injector as directed Quantity: 0 Refills: 0 Ordered: 27-Sep-2021 DO Active fenofibrate 145 mg oral tablet (20 sources) Peroxisome Proliferator Receptor alpha Agonist Start: 11-07-2021 take 1 tablet by mouth once daily fenofibrate (Tricor) 145 mg tablet Indications: Hyperlipidemia, unspecified hyperlipidemia type TAKE 1 TABLET BY MOUTH EVERY DAY 90 tablet 3 03/05/2024 Active Fenofibrate Acti ve hydrOXYzine hydrochloride 25 mg oral tablet (8 sources) Antihistamine Start: 01-29-2025 take 2 tablets by mouth twice daily as needed for anxiety hydrOXYzine HCl (Atarax) 25 MG tablet Indications: Anxiety Take 2 tablets (50 mg) by mouth 2 (two) times a day as needed for anxiety 40 tablet 01/29/2025 Active 24 hr isosorbide mononitrate 30 mg extended release oral tablet (20 sources) Nitrate Vasodilator Start: 10-20-2021 End: 12-09-2025 take 1 tablet by mouth once daily isosorbide mononitrate ER (Imdur) 60 mg 24 hr tablet Indications: Angina pectoris, unspecified , Hypertension, unspecified type Take 1 tablet (60 mg) by mouth once daily. 90 tablet 3 12/09/2024 12/09/2025 Active Start: 10-20-2021 take 1 tablet by rob th once daily, then take 1 tablet by mouth every twenty-four hours ammonium lactate 120 mg/ml topical lotion (9 sources) Start: 11-25-2024 ammonium lacta te (Lac-Hydrin) 12 % lotion APPLY DAILY TO DRY AREAS ON FEET 11/25/2024 Active levothyroxine sodium 0.2 mg oral tablet (20 sources) l-Thyroxi ne Start: 11-07-2021 End: 07-28-2024 take 1 tablet by mouth [...] DAY 180 tablet 1 02/25/2025 Active Start: 03-10-2022 End: 09-02-2024 metFORMIN XR 500 mg 24 hr ta blet 1 tablet (500 mg) 2 times daily (morning and late afternoon). 03/03/2024 Active take 1 tablet by rob th [...] sublingual tablet (20 sources) Nitrate Vasodilator Start: 11-07-2021 nitroglyce rin (Nitrostat) 0.4 mg SL tablet Indications: Arteriosclerotic cardiovascular disease (ASCVD) , History of coronary artery bypass graft , Status post angioplasty Place 1 tablet (0.4 mg) under the tongue every 5 minutes if needed for chest pain. 100 tablet 1 10/15/2024 Active Nitrostat Erica-Acosta jenkins Ozempic 1 mg/dose (4 mg/3 mL) [...] (Ozempic, 2 MG/DOSE,) 8 MG/3ML solution pen-injector (19 sources) Start: 09-01-2024 inject 2 mg by [...] 09/01/2024 Active sertraline 50 mg oral tablet (9 sources) Serotonin Reuptake Inhibitor Start: 05-25-2025 take 1 tablet by mouth once daily sertraline (Zoloft) 50 MG tablet Indications: Anxiety TAKE 1 TABLET BY MOUTH EVERY DAY 90 tablet 1 05/25/2025 Active Start: 01-29-2025 End: 07-28-2025 take 1 tablet by mouth once daily sertraline (Zoloft) 50 MG tablet Indications: Anxiety Take 1 tablet (50 mg) by mouth Daily 30 tablet 5 01/29/2025 05/25/2025 Discontinued Completed/Discontinued Medications Medication Drug Class(es) Dates Sig [...] SUBARACHNOID HEMORR] Onset: 11-22-2022 Chronic Anxiety disorders (3 sources) Anxiety; Translations: [Anxiety disorder, unspecified] 01-29-2025 [...] Onset: 03-28-2022 Chronic Congestive heart failure; nonhypertensive (20 sources) Congestive heart failure stage C; Translations: [Congestive heart failure, unspecified] Onset: 08-31-2023 08-31-2023 Chronic Coronary atherosclerosis and other heart disease (20 sources) Multi vessel coronary artery disease; Translations: [Coronary atherosclerosis of unspecified type of vessel, [place] or graft] Onset: 03-29-2016 01-29-2024 Chronic Diabetes [...] toe(s)] 08-04-2024 Episodic Other nervous system disorders (20 sources) Difficulty walking; Translations: [Difficulty in walking, [...] Onset: 12-05-2022 06-16-2024 Chronic Unclassified (1 source) CONTACT W/AND (SUSP) EXPOS [...] RT FOOT] Onset: 07-13-2022 Episodic Administrative/social admission (20 sources) Reduced mobility; Translations: [Other reduced mobility] Onset: 03-29-2016 01-28-2025 Episodic Cardiac dysrhythmias (20 sources) Palpitations; Translations: [Tachycardia] Onset: 01-28-2025 01-28-2025 Episodic Coronary atherosclerosis and other heart disease (4 sources) Presence of aortocoronary bypass graft; Translations: [Presence of aortocoronary bypass graft] Onset: 08-31-2023 Episodic Deficiency and other anemia (20 sources) Anemia; Translations: [Anemia, unspecified] Onset: 03-29-2016 08-06-2023 Episodic Mood disorders (14 sources) Mood disorders Onset: 12-04-2024 12-04-2024 Mycoses (5 sources) Tinea unguium; Translations: [TINEA UNGUIUM] Onset: 10-24-2022 Episodic Other aftercare (1 source) [facility] (current) use of aspirin; Translations: [[facility] CURRENT USE OF ASPIRIN] Onset: 03-28-2022 Episodic Other aftercare (1 source) Other residential (current) drug therapy; Translations: [OTH PROFESSOR OF FAMILY MEDICINE CURRENT DRUG THERAPY] Onset: 03-28-2022 Episodic Other aftercare (2 sources) 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 MR#: [id number] : 1955 Acct:[id number] Age/Sex: 70 / M ADM Date: 05/19/25 Loc: SURGOUT Attending Dr: Nisha Farrar D.P.M. Ordering Physician: Nisha Farrar D.P.M. Date of Service: 05/19/25 Procedure(s): XR foot LT min 3V Accession Number(s): [id number] cc: NITISH AGRAWAL ; Nisha Farrar D.P.M. [place] [id number] Patient Name: JANICE FORD MRN: [id number] date: 1955 Sex: M Assigned Patient Location: [facility] Current Patient Location: Accession/Order Number: [id number] Exam Date: 05/20/2025 08:15 Report Date: 05/20/2025 08:21 At the request of: NISHA FARRAR DPJudie [...] 05/20/2025 8:21 AM Dictation Location: [place] [address] Electronically authenticated by: [id number] Date: 05/20/2025 08:21 Dictated By: Melani Owens M.D. Signed By: 05/20/25822 DD/ 0 TD/TT: Chef Assistant: [facility] Radiology, Radiologist, MD - 05/20/2025 [place] [address] XRay Report Signed Patient: JANCIE FORD Jr. MR#: [id number] : 1955 Acct:[id number] Age/Sex: 70 / M ADM Date: 05/19/25 Loc: SURGOUT Attending Dr: Nisha Farrar D.P.M. Ordering Physician: Nisha Farrar D.P.M. Date of Service: 05/19/25 Procedure(s): XR foot LT min 3V Accession Number(s): [id number] cc: NITISH AGRAWAL ; Nisha Farrar D.P.M. The [place] [address] Patient Name: JANICE FORD MRN: [facility]:[id number] date: 1955 Sex: M Assigned Patient Location: [facility] Current Patient Location: Accession/Order Number: [id number] Exam Date: 05/20/2025 08:15 Report Date: 05/20/2025 08:21 At the request of: NISHA FARRAR DPJudie [...] 05/20/2025 8:21 AM Dictation Location: [place] [address] Electronically authenticated by: [id number] Y Date: 05/20/2025 08:21 Dictated By: Melani Owens M.D. Signed By: 05/20/25822 DD/ 0 TD/TT: Chef Assistant: [facility] Radiology Study observation (narrative) [facility] XR FOOT LT MIN 3VOrdered By: Radiologist Radiology on 05-20-2025 [facility] [employer] Work Phone: ECG 12-LEADon 05-19-2025 [place] [address] Electrocardiograph Report Signed Patient: JANICE FORD Jr. MR#: [id number] : 1955 Acct:[id number] Age/Sex: 70 / M ADM Date: 05/15/25 Loc: PST Attending Dr: Nisha Farrar D.P.M. Ordering Physician: Nisha Farrar D.P.M. 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 MR#: [id number] : 1955 Acct:[id number] Age/Sex: 70 / M ADM Date: 05/15/25 Loc: [facility] Attending Dr: Nisha Farrar D.P.M. Ordering Physician: Nisha Farrar D.P.M. 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 Signed By: 05/19/25 1610 DD/ 0831 TD/TT: Chef Assistant: [employer] ECG 12-LEADOrdered By: Earthmillt Radiology on 05-19-2025 [employer] Work Phone: SEGMENTAL BLOOD PRESSUREon 0 05-19-2025 [place] [address] Cardiology Report Signed Patient: JANICE FORD Jr. 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 ECG 12-LEADon 05-15-2025 Radiology Study observation (narrative) [facility] XR CHEST 2Von 05-15-[address] [address] XRay Report Signed Patient: JANICE FORD Jr. MR#: [id number] : 1955 Acct:[id number] Age/Sex: 70 / M ADM Date: 05/15/25 Loc: [facility] Attending Dr: Nisha Farrar D.P.M. Ordering Physician: Nisha Farrar D.P.M. Date of Service: 05/15/25 Procedure(s): XR chest 2V Accession Number(s): [id number] cc: NITISH AGRAWAL ; Nisha Farrar D.P.M. [address] [address] Patient Name: JANICE FORD MRN: [facility]:[id number] date: 1955 Sex: M Assigned Patient Location: [facility] Current Patient Location: [facility] Accession/Order Number: [id number] Exam Date: 05/15/2025 10:46 Report Date: 05/15/2025 [...] Owens M.D. 05/15/2025 10:49 AM Dictation Location: [place] [address] Electronically authenticated by: [id number] Y Date: 05/15/2025 10:49 Dictated By: Melani Owens M.D. Signed By: 05/15/25 1051 DD/ 1049 TD/TT: Chef Assistant: [facility] Radiology, Radiologist, MD - 05/15/[address] [address] XRay Report Signed Patient: JANICE FORD Jr. MR#: [id number] : 1955 Acct:[id number] Age/Sex: 70 / M ADM Date: 05/15/25 Loc: [facility] Attending Dr: Nisha Farrar D.P.M. Ordering Physician: Nisha Farrar D.P.M. Date of Service: 05/15/25 Procedure(s): XR chest 2V Accession Number(s): [id number] cc: NITISH AGRAWAL ; Nisha Farrar D.P.M. The [address] [address] Patient Name: JANICE FORD MRN: [facility]:[id number] date: 1955 Sex: M Assigned Patient Location: [facility] Current Patient Location: [facility] Accession/Order Number: [id number] Exam Date: 05/15/2025 10:46 Report Date: 05/15/2025 [...] Owens M.D. 05/15/2025 10:49 AM Dictation Location: [place] [address] Electronically authenticated by: [id number] Y Date: 05/15/2025 10:49 Dictated By: Melani Owens M.D. Signed By: 05/15/25 1051 DD/ 1049 TD/TT: Chef Assistant: [facility] Radiology Study observation (narrative) [facility] XR CHEST 2VOrdered By: Radio logist Radiology on 05-15-2025 [employer] Work Phone: XR FOOT LT MIN 3Von 04-22-[address] [address] XRay Report Signed Patient: JANICE FORD MR#: [id number] : 1955 Acct:[id number] Age/Sex: 70 / M ADM Date: 04/22/25 Loc: RAD Attending Dr: Nisha Farrar D.P.M. Ordering Physician: Nisha Farrar D.P.M. Date of Service: 04/22/25 Procedure(s): XR foot LT min 3V Accession Number(s): [id number] cc: NITISH AGRAWAL ; Nisha Farrar D.P.M. [address] [address] Patient Name: JANICE FORD MRN: [id number] date: 1955 Sex: M Assigned Patient Location: [facility] Current Patient Location: [facility] Accession/Order Number: [id number] Exam Date: 04/22/2025 15:23 Report Date: 04/22/2025 [...] SEEN. Impression dictated by: Theron Guerra Jr., D.OPaola 04/22/2025 3:25 PM Dictation Location: [place] [address] Electronically authenticated by: [id number] Y Date: 04/22/2025 15:25 Dictated By: Theron Guerra M.D. Signed By: 04/22/25 1527 DD/ 1525 TD/TT: Chef Assistant: [facility] Radiology, Radiologist, - 04/22/2025 [place] [address] XRay Report Signed Patient: JANICE FORD MR#: [id number] : 1955 Acct:[id number] Age/Sex: 70 / M ADM Date: 04/22/25 Loc: RAD Attending Dr: Nisha Farrar D.P.M. Ordering Physician: Nisha Farrar D.P.M. Date of Service: 04/22/25 Procedure(s): XR foot LT min 3V Accession Number(s): [id number] cc: NITISH AGRAWAL ; Nisha Farrar D.P.M. The [place] [address] Patient Name: JANICE FORD MRN: [facility]:[id number] date: 1955 Sex: M Assigned Patient Location: [facility] Current Patient Location: [facility] Accession/Order Number: [id number] Exam Date: 04/22/2025 15:23 Report Date: 04/22/2025 [...] SEEN. Impression dictated by: Theron Guerra Jr., D.OPaola 04/22/2025 3:25 PM Dictation Location: [place] [address] Electronically authenticated by: [id number] Y Date: 04/22/2025 15:25 Dictated By: Theron Guerra M.D. Signed By: 04/22/25 1527 DD/ 152 TD/TT: Chef Assistant: [facility] [employer] Radiology Study observation (narrative) [employer] XR FOOT LT MIN 3VOrdered By: Radiologist Radiology on 04-22-2025 [employer] Work Phone: nm Heart Perfusion W stress and W radionuclide eRi 02-23-2025 Abnormal Lexiscan Myoview cardiac perfusion stress [...] Erika Osborne 02/23/2025 6:21 PM Dictation workstation: [id number] Interpreted By: Erika Osborne and Giannuzzi Michael STUDY: MYOCARDIAL PERFUSION STRESS TEST WITH LEXISCAN Performing facility: [facility], [address] [place] [address], [address], [address] Provider: Ratna Elias DO, [facility] PCP: Dr. Vineet Agrawal Supervising provider: Yamilka Rebollar MD, FACC INDICATION: Signs/Symptoms:h/o pci, angina 2-3, palps, tachy. ,I25.10 Atherosclerotic heart disease of [place] coronary artery without angina pectoris,Z95.1 Presence of [...] on 1992. COMPARISON: Previous nuclear testing completed [id number] at [facility]. ACCESSION NUMBER(S): [id number] ORDERING CLINICIAN: MARTIN ELIAS TECHNIQUE: ONE DAY [...] PERFUSION STRESS TEST WITH LEXISCAN Performing facility: [facility], [address] [place] [address], [address], [place], [place] [address] Provider: Ratna Elias DO, FACC PCP: Dr. Vineet Agrawal Supervising provider: Yamilka Rebollar MD, FACC INDICATION: Signs/Symptoms:h/o pci, angina 2-3, palps, tachy. ,I25.10 Atherosclerotic heart disease of [place] coronary artery without angina pectoris,Z95.1 Presence of [...] COMPARISON: Previous nuclear testing completed at [facility]. ACCESSION NUMBER(S): [id number] ORDERING CLINICIAN: MARTIN ELIAS TECHNIQUE: ONE DAY [...] Erika Osborne 02/23/2025 6:21 PM Dictation workstation: [id number] [facility] Work Phone: Radiology Study observation (narrative) [facility] Work Phone: NM Heart Perfusion W stress and W radionuclide IVOrdered By: Erika Osborne on 02-23-2025 [facility] Work Phone: NUCLEAR STRESS TESTon 2024 NUCLEAR STRESS TEST Interpreted By: Erika Osborne, and Maine Lopez STUDY: MYOCARDIAL PERFUSION STRESS TEST WITH LEXISCAN Performing facility: [facility], [address] [place] [address], [address], [place] [id number] [facility] Provider: Ratna Elias DO, FACC PCP: Dr. Vineet Agrawal Supervising provider: Yamilka Rebollar MD, FACC INDICATION: Signs/Symptoms:h/o pci, angina 2-3, palps, tachy. ,I25.10 Atherosclerotic heart disease of [place] coronary artery without angina pectoris,Z95.1 Presence of [...] COMPARISON: Previous nuclear testing completed at [facility]. ACCESSION NUMBER(S): [id number] ORDERING CLINICIAN: MARTIN ELIAS TECHNIQUE: ONE DAY [...] Erika Osborne 02/23/2025 6:21 PM Dictation workstation: [id number] [facility] NUCLEAR STRESS TEST EXERCISE (CARD)on 02-23-2025 Source Facility: [facility] Interpreted By: Erika Osborne, Sahil Lopez STUDY: MYOCARDIAL PERFUSION STRESS TEST WITH LEXISCAN Performing facility: [facility], [address], [address], [place] [id number] [facility] Provider: Ratna Elias DO, FACC PCP: Dr. Vineet Agrawal Supervising provider: Yamilka Rebollar MD, FACC INDICATION: Signs/Symptoms:h/o pci, angina 2-3, palps, tachy. ,I25.10 Atherosclerotic heart disease of [place] coronary artery without angina pectoris,Z95.1 Presence of [...] COMPARISON: Previous nuclear testing completed at [facility]. ACCESSION NUMBER(S): [id number] ORDERING CLINICIAN: MARTIN ELIAS TECHNIQUE: ONE DAY [...] Erika Osborne 02/23/2025 6:21 PM Dictation workstation: [id number] Radiology, Radiologist, - 02/24/2025 Source Facility: [facility] Interpreted By: Erika Osborne and Giannuzzi Michael STUDY: MYOCARDIAL PERFUSION STRESS TEST WITH LEXISCAN Performing facility: [facility], [address], [address], [place], [place] [address] Provider: Ratna Elias DO, FAC PCP: Dr. Vineet Agrawal Supervising provider: Yamilka Rebollar MD, FACC INDICATION: Signs/Symptoms:h/o pci, angina 2-3, palps, tachy. ,I25.10 Atherosclerotic heart disease of [place] coronary artery without angina pectoris,Z95.1 Presence of [...] COMPARISON: Previous nuclear testing completed at [facility]. ACCESSION NUMBER(S): [id number] ORDERING CLINICIAN: MARTIN ELIAS TECHNIQUE: ONE DAY [...] Erika Osborne 02/23/2025 6:21 PM Dictation workstation: [id number] [facility] Radiology Study observation (narrative) [facility] NUCLEAR STRESS TEST EXERCISE (CARD)Ordered By: Radiologist Radiology on 02-23-2025 [facility] dELiAscar e Work Phone: ALL BASIC METABOLIC PANELon 01-28-2025 Anion gap [Moles/Vol] 13.7 mmol/L [facility] Calcium [Mass/Vol] 8.8 mg/dL 8.5 - 10. 1 mg/dL [facility] Chloride [Moles/Vol] 104 mmol/L 98 - 10 7 mmol/L [facility] CO2 [Moles/Vol] 25.7 mmol/L 21.0 - 32.0 mmol/L [facility] Creatinine [Mass/Vol] 1.39 mg/dL High 0.70 - 1.30 mg/dL [facility] GFR/1.73 sq M.predicted CKD-EPI (S/P/Bld) [Vol rate/Area] >60 >=60 mL/min/1.73m 2 [facility] Glucose [Mass/Vol] 150 mg/dL High 74 - 106 mg/dL [facility] Potassium [Moles/Vol] 4.4 mmol/L 3.5 - 5.1 mmol/L [facility] Sodium [Moles/Vol] 139 mmol/L 136 - 145 mmol/L [facility] TBH EGFR-NON AF KUWAITI 51 Low >=60 mL/min/1.73m 2 [facility] Urea nitrogen [Mass/Vol] 25 mg/dL High 7.0 - 18.0 mg/dL [facility] Urea nitrogen/Creatinine [Mass ratio] 18 mg/mg [facility] ALL PRO BNPon 01-28-2025 NT PRO B TYPE NATRIURETIC PEPT 1185 pg/mL High NINF - 900.0 pg/mL [facility] No Panel Informationon 01-28 Interpretation and review of laboratory results Abnormal [facility] Critical [employer] e HbA1c (Bld) [Mass fraction]o n 12-01-2024 Interpretation and review of laboratory results [facility] and Cell countson 12-01-2024 HbA1c (Bld) [Mass fraction] 7.7 % [facility] HbA1c (Bld) [Mass fraction]o n 09-01-2024 Interpretation and review of laboratory results Abnormal [facility] - Hematology and Cell countson 09-01-2024 HbA1c (Bld) [Mass fraction] 8.6 % [facility] No Panel Informationon 06-27 [facility] Carcinoembryonic Ag [Mass/Vo l]on 06-20-2024 Performing Organization Information Site ID: QPT Name: [facility] Address: [address] [place] [address], [address] [place] [id number] Director: Edil Bedolla MD [facility] [...] Informationon 06-20 Performing Organization Information Site ID: [facility] Name: [facility] Address: [address] [place] [address] Dr [place], [place] Director: Huan Tate M.D.,PhD [facility] Health[facility] e US THYROIDon 06-16-2024 US THYROID [...] report is generated using voice recognition reporting (TapBookAuthor). On occasion TapBookAuthor erroneously drops words from the report or [...] report is generated using voice recognition reporting (NetDragoncribe). On occasion PowerScribe erroneously drops words from [...] report is generated using voice recognition reporting (NetDragoncribe). On occasion PowerScribe erroneously drops words from the report or replaces the spoken word with similar sounding words. Please call with any questions/concerns regarding this report.* Dictated and transcribed 06/16/2024/[place] This report has been electronically signed and approved by the interpreting radiologist. Electronically Signed Martin Christianson II, M.D. 2024-06-16 16:43:23 [facility] Radiology Study observation (narrative) [facility] Thyroid glandOrdered By: Martin Christianson on 06-16-2024 [facility] Critical Media e Work Phone: Office Visit (Cardiology)on 01-23-2023 [...] are negat (more content not included)... Normal [employer] Tobacco Screening.on 023 Adult depression screening assessment No [facility] 250 DO Work Phone: Fall risk assessment a) No falls within the last year [facility] 250 DO Work Phone: Tobacco use status [facility] b) No [facility] Work Phone: ACID FAST SMEAR AND CXon Acid Fast Culture Negative Normal [facility] Comment on above: Result Comment: No a monse fast bacilli isolated after 6 weeks. Performed By: #### A FB #### [facility] [address] [place] [address] Dr. Balta Gorman Acid Fast Smear Negative Normal [facility] Comment on above: Performed By: #### A FB #### [facility] [address] [place] [address] Dr. Balta Gorman [employer] Specimen Processing Tissue Grinding [facility] Comment on above: Performed By: #### A FB #### [facility] [address] [place] [address] Dr. Balta Gorman FUNGAL CULTUREon 07-11-2022 Fungus (Mycology) Culture Final report [facility] Comment on above: Performed By: #### C XFUN #### [facility] [address] [place] [address] Dr. Balta Gorman Fungus Stain Final report Normal [facility] Comment on above: Performed By: #### C XFUN #### [facility] [address] [place] [address] Dr. Balta Gorman Result 1 Comment Normal [facility] Comment on above: Result Comment: FRANCISCA/ Calcofluor preparation: no fungus observed. Performed By: #### C XFUN #### [facility] [address] [place] [address] Dr. Balta Gorman Result Comment: No y east or mold isolated after 4 weeks. WOUND CULTUREon 06-15-2022 Bacteria identified Aer cx Nom (Unsp spec) Final report Normal [facility] Comment on above: Performed By: #### A FB #### [facility] [address] [place] [address] [address] Balta Gorman Result 1 Comment Normal [facility] Comment on above: Result Comment: No g rowth in 36 - 48 hours. Performed By: #### A FB #### [facility] [address] [place] [address] [address] Balta CAVAZOS STAINon 06-12-2022 DIPHTHEROIDS Normal [facility] Comment on above: Performed By: #### C VDTBH #### [facility] [address] [place] [address] [address] Balta Gorman EPITHELIALS Normal [facility] Comment on above: Performed By: #### C VDTBH #### [facility] [address] [place] [address] Dr. Balta Gorman FUNGAL ELEMENTS Normal [facility] Comment on above: Performed By: #### C VDTBH #### [facility] [address] [place] [address] [address] Balta CAVAZOS NEG BACILLI Normal [facility] Comment on above: Performed By: #### C VDTBH #### [facility] [address] [place] [address] [address] Balta CAVAZOS NEG DIPPLOCOCCI Normal [facility] Comment on above: Performed By: #### C VDTBH #### [facility] [address] [place] [address] [address] Balta CAVAZOS POS BACILLI Normal [facility] Comment on above: Performed By: #### C VDTBH #### [facility] [address] [place] [address] [address] Balta Gorman GRAM POSITIVE COCCI Normal [facility] Comment on above: Performed By: #### C VDTBH #### [facility] [address] [place] [address] [address] Balta Gorman GRAM STAIN SOURCE Rt 4th Toe Bone Normal [facility] Comment on above: Performed By: #### C VDTBH #### [facility] [address] [place] [address] Dr. Balta Gorman GS_DIPTH Normal [facility] Comment on above: Performed By: #### C VDTBH #### [facility] [address] [place] [address] [address] Balta Gorman WBC NONE SEEN Normal [facility] Comment on above: Performed By: #### C VDTBH #### [facility] [address] [place] [address] [address] Balta Gorman POINT OF CARE GLUCOSEon Glucose [Mass/Vol] 168 mg/dL Critically high 74-106 [facility] Comment on above: Performed By: #### P OCGLUC ####[facility] [address] [place] [address]Dr. Balta Gorman Glucose [Mass/Vol] 161 mg/dL Critically high 74-106 [facility] Comment on above: Performed By: #### P OCGLUC #### [facility] [address] [place] [address] [address] Balta Gorman Covid-19 PCR ([facility]on SARS-CoV-2 (COVID-19) RNA DERICK+probe Ql (Unsp spec) Not detected Normal NOT DETECTED [facility] Comment on above: Result Comment: This test is not yet approved or cleared by the [place] FDA. When there are no FDA-approved or cleared tests available, and other criteria are met, FDA can make tests available under an emergency access mechanism called an Emergency Use Authorization (EUA). The EUA for this test is supported by the [place] of Health and Human Service's (HHS's) declaration [...] with SARS-CoV-2. Performed By: #### C VDTBH ####[facility] [address] [place], [place] [address]UrDr. Balta Gorman PROF CHEM 8 (BAS METB)on Anion gap [Moles/Vol] 13.3 mmol/L Normal [facility] Comment on above: Performed By: #### C VDTBH #### [facility] [address] [place] [address] [address] Balta Gorman Calcium [Mass/Vol] 8.7 mg/dL Normal 8.5-10.1 [facility] Comment on above: Performed By: #### C VDTBH #### [facility] [address] [place] [address] [address] Balta Gorman Chloride [Moles/Vol] 106 mmol/L Normal 98-107 [facility] Comment on above: Performed By: #### C VDTBH #### [facility] [address] [place] [address] [address] Balta Gorman CO2 [Moles/Vol] 23.9 mmol/L Normal 21.0-32.0 [facility] Comment on above: Performed By: #### C VDTBH #### [facility] [address] [place] [address] [address] Balta Gorman Creatinine [Mass/Vol] 1.24 mg/dL Normal 0.70-1.30 [facility] Comment on above: Performed By: #### C VDTBH #### [facility] [address] [place] [address] [address] Balta Gorman EGFR-AF [place]I >60 Normal >=60 [facility] Comment on above: Performed By: #### C VDTBH #### [facility] [address] [place] [address] [address] Balta Gorman EGFR-NON AF [place]I 58 mL/min/1.73m2 Critically low >=60 [facility] Comment on above: Performed By: #### C VDTBH #### [facility] [address] [place] [address] [address] Balta Gorman Glucose [Mass/Vol] 158 mg/dL Critically high 74-106 T [facility] Comment on above: Performed By: #### C VDTBH #### [facility] [address] [place] [address] [address] Balta Gorman Potassium [Moles/Vol] 4.2 mmol/L Normal 3.5-5.1 [facility] Comment on above: Performed By: #### C VDTBH #### [facility] [address] [place] [address] [address] Balta Gorman Sodium [Moles/Vol] 139 mmol/L Normal 136-145 [facility] Comment on above: Performed By: #### C VDTBH #### [facility] [address] [place] [address] [address] Balta Gorman Urea nitrogen [Mass/Vol] 19.0 mg/dL Critically high 7.0-18.0 [facility] Comment on above: Performed By: #### C VDTBH #### [facility] [address] [place] [address] [address] Balta Gorman Urea nitrogen/Creatinine [Mass ratio] 15.3 mg/mg Normal [facility] Comment on above: Performed By: #### C VDTBH #### [facility] [address] [place] [address] [address] Balta Gorman ACID FAST SMEAR AND CXon Acid Fast Culture Negative Normal [facility] Comment on above: Result Comment: No a monse fast bacilli isolated after 6 weeks. Performed By: #### A FB ####[facility] [address] [place] [id number]. Balta Gorman Acid Fast Smear Negative Normal [facility] Comment on above: Performed By: #### A FB ####[facility] [address] [place] [id number] Gorman [employer] Specimen Processing Tissue Grinding [facility] Comment on above: Performed By: #### A FB ####[facility] [address] [place], [place] [address]RvPaola Gorman FUNGAL CULTUREon 05-05-2022 Fungus (Mycology) Culture Final report Normal [facility] Comment on above: Performed By: #### A FB #### [facility] [address] [place] [address] [address] Balta Gorman Fungus Stain Final report Normal [facility] Comment on above: Performed By: #### A FB #### [facility] [address] [place] [address] [address] Balta Gorman Result 1 Comment Normal [facility] Comment on above: Result Comment: FRANCISCA/ Calcofluor preparation: no fungus observed. Performed By: #### A FB #### [facility] [address] [place] [address] [address] Balta Gorman Result Comment: No y [...] By signing my name below, Franchesca Recio LPN.,[place], attest that this documentation has been [...] that was done back in 1992 at [facility] in [place]. 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 This was redilated and stented. He had a recent episode at cardiac rehab in [place] and because of this was seen in [...] Recorded: 01May2022 09:28AM Heart Rate80, L Radial Moqymhun10, LUE, Sitting Rcaplagqm50, LUE, Sitting Height6 ft 1 in Wcoyyc416 lb BMI Yxlwunmlhu65.42 kg/m2 BSA Calculated2.25 Tobacco Useb) No Falls Screening (Age 18+)a) No falls within the last year Signatures Electronically signed by : Helga Flores DO; May 01 2022 11:18AM EST (Author) Normal [employer] Tobacco Screening.on 022 Fall risk assessment a) No falls within the last year [facility] [employer] 250 DO Work Phone: Tobacco use status [facility] b) No [facility] 250 DO Work Phone: XR FOOT LT [...] JOSE MARTIN WHITAKER Date: 2022-04-14 10:08 Normal [facility] TISSUE CULTUREon 04-07-2022 Anaerobic Culture, Extended Incubation Final report Normal [facility] Comment on above: Performed By: #### A FB #### [facility] [address] [place] [address] [address] Balta Gorman Result 1 Comment Normal [facility] Comment on above: Result Comment: No g rowth in 56 - 72 hours. Performed By: #### A FB #### [facility] [address] [place] [address] Dr. Balta Gorman Result Comment: No g rowth after 14 days. Tissue Culture Final report Normal [facility] Comment on above: Performed By: #### A FB #### [facility] [address] [place] [address] [address] Balta Gorman WOUND CULTUREon 03-26-2022 Antimicrobial Susceptibility Comment Normal [facility] Comment on above: Result Comment: S = Susceptible; I = Intermediate; R = Resistant P = Positive; N = Negative MICS are expressed in micrograms per mL Antibiotic RSLT#1 RSLT#2 RSLT#3 RSLT#4 Ciprofloxacin R Clindamycin S Erythromycin S Gentamicin S Levofloxacin R Linezolid S Oxacillin R Penicillin R Rifampin S Tetracycline S Trimethoprim/Sulfa R Vancomycin S Performed By: #### A FB #### [facility] [address] [place] [address] Dr. Balta Gorman Bacteria identified Aer cx Nom (Unsp spec) Final report Abnormal [facility] Comment on above: Performed By: #### A FB #### [facility] [address] [place] [address] Dr. Balta Gorman Result 1 Comment Abnormal [facility] Comment on above: Result Comment: Meth icillin - resistant Staphylococcus aureus Based on resistance to oxacillin this isolate would be resistant to all currently available beta-lactam antimicrobial agents, with the exception of the newer cephalosporins with anti-MRSA activity, such as Ceftaroline Heavy growth Performed By: #### A FB #### [facility] [address] [place] [address] [address] Balta Gorman CBC AUTO DIFFon 03-24-2022 BASO # 0.0 103/ul Normal 0.0-0.1 [facility] Comment on above: Performed By: #### C BC ####[facility] [address] [place] [address]Dr. Balta Gorman Basophils/100 WBC (Bld) 0.5 % Normal 0.2-2.0 [facility] Comment on above: Performed By: #### C BC ####[facility] [address] [place] [address]Dr. Balta Gorman EO # 0.1 103/ul Normal 0.0-0.7 [facility] Comment on above: Performed By: #### C BC ####[facility] [address] [place], [place] [address]Dr. Balta Gorman Eosinophils/100 WBC (Bld) 1.1 % Normal 0.9-7.0 [facility] Comment on above: Performed By: #### C BC ####[facility] [address] [place], [place] [address]Dr. Balta Gorman Erythrocyte distribution width (RBC) [Ratio] 16.9 % Critically high 11.0-15.0 [facility] Comment on above: Performed By: #### C BC ####[facility] [address] [place], [place] [address]Dr. Balta Gorman Hematocrit (Bld) [Volume fraction] 34.5 % Critically low 42.0-54.0 [facility] Comment on above: Performed By: #### C BC ####[facility] [address] [place], [place] [address]DrPaola Gorman Hemoglobin (Bld) [Mass/Vol] 10.2 g/dL Critically low 14.0-18.0 [facility] Comment on above: Performed By: #### C BC ####[facility] [address] [place], [place] [address]DrPaola Gorman IG # 0.03 10e3/ul Normal 0.00-0.03 [facility] Comment on above: Performed By: #### C BC ####[facility] [address] [place] [address]DrPaola Gorman IG % 0.4 % Normal 0.0-0.5 [facility] Comment on above: Performed By: #### C BC ####[facility] [address] [place] [address]DrPaola Gorman LYMPH # 1.6 103/ul Normal 1.2-3.8 [facility] Comment on above: Performed By: #### C BC ####[facility] [address] [place] [address]DrPaola Gorman Lymphocytes/100 WBC (Bld) 18.4 % Critically low 20.5-60.0 [facility] Comment on above: Performed By: #### C BC ####[facility] [address] [place], [place] [address]DrPaola Gorman MANUAL DIFF REQ NO Normal [facility] Comment on above: Performed By: #### C BC ####[facility] [address] [place] [address]DrPaola Gorman MCH (RBC) [Entitic mass] 22.7 pg Critically low 25.9-34.0 [facility] Comment on above: Performed By: #### C BC ####[facility] [address] [place] [address]DrPaola Gorman MCHC (RBC) [Mass/Vol] 29.6 g/dL Critically low 29.9-35.2 [facility] Comment on above: Performed By: #### C BC ####[facility] [address] [place], [place] [address]DrPaola Gorman MCV (RBC) [Entitic vol] 76.7 fL Critically low 80.0-94.0 [facility] Comment on above: Performed By: #### C BC ####[facility] [address] [place], [place] [address]DrPaola Gorman MONO # 0.9 103/ul Critically high 0.3-0.8 [facility] Comment on above: Performed By: #### C BC ####[facility] [address] [place] [address]Dr. Balta Gorman Monocytes/100 WBC (Bld) 11.1 % Normal 1.7-12.0 [facility] Comment on above: Performed By: #### C BC ####[facility] [address] [place] [address]Dr. Balta Gorman NEUT # 5.8 103/ul Normal 1.4-6.5 [facility] Comment on above: Performed By: #### C BC ####[facility] [address] [place] [address]Dr. Batla Gorman Neutrophils/100 WBC (Bld) 68.5 % Normal 43.0-75.0 [facility] Comment on above: Performed By: #### C BC ####[facility] [address] [place] [address]Dr. Balta Gorman Platelet mean volume (Bld) [Entitic vol] 10.2 fL Normal 9.5-13.5 [facility] Comment on above: Performed By: #### C BC ####[facility] [address] [place] [address]Dr. Balta Gorman PLT 285 103/ul Normal 150-450 [facility] Comment on above: Performed By: #### C BC ####[facility] [address] [place] [address]Dr. Balta Gorman RBC 4.50 106/ul Critically low 4.70-6.10 [facility] Comment on above: Performed By: #### C BC ####[facility] [address] [place] [address]Dr. Balta Gorman WBC 8.5 103/ul Normal 4.0-11.0 [facility] Comment on above: Performed By: #### C BC ####[facility] [address] [place] [address]Dr. Balta Sherif POINT OF CARE GLUCOSEon 05-2 0-2022 Glucose [Mass/Vol] 209 mg/dL Critically high 74-106 T [facility] Comment on above: Performed By: #### P OCGLUC #### [facility] [address] [place] [address] [address] Balta Gorman PROF CHEM 8 (BAS METB)on Anion gap [Moles/Vol] 13.7 mmol/L Normal [facility] Comment on above: Performed By: #### B MP ####[facility] [address] [place] [id number]. Balta Gorman Calcium [Mass/Vol] 8.1 mg/dL Critically low 8.5-10.1 [facility] Comment on above: Performed By: #### B MP ####[facility] [address] [place] [id number] Gorman Chloride [Moles/Vol] 105 mmol/L Normal 98-107 [facility] Comment on above: Performed By: #### B MP ####[facility] [address] [place] [id number] Gorman CO2 [Moles/Vol] 23.0 mmol/L Normal 21.0-32.[address] [facility] Comment on above: Performed By: #### B MP ####[facility] [address] [place] [id number] Gorman Creatinine [Mass/Vol] 1.15 mg/dL Normal 0.70-1.30 [facility] Comment on above: Performed By: #### B MP ####[facility] [address] [place] [id number] Gorman EGFR-AF KUWAITI >60 Normal >=[address] [facility] Comment on above: Performed By: #### B MP ####[facility] [address] [place] [id number] Gorman EGFR-NON AF [place]I >60 Normal >=60 [facility] Comment on above: Performed By: #### B MP ####[facility] [address] [place] [id number] Gorman Glucose [Mass/Vol] 214 mg/dL Critically high 74-106 T [facility] Comment on above: Performed By: #### B MP ####[facility] [address] [place] [address]Dr. Balta Gorman Potassium [Moles/Vol] 3.7 mmol/L Normal 3.5-5.1 [facility] Comment on above: Performed By: #### B MP ####[facility] [address] [place] [address]Dr. Balta Gorman Sodium [Moles/Vol] 138 mmol/L Normal 136-145 [facility] Comment on above: Performed By: #### B MP ####[facility] [address] [place], [place] [address]Dr. Balta Gorman Urea nitrogen [Mass/Vol] 21.0 mg/dL Critically high 7.0-18.0 [facility] Comment on above: Performed By: #### B MP ####[facility] [address] [place], [place] [address]Dr. Balta Gorman Urea nitrogen/Creatinine [Mass ratio] 18.3 mg/mg Normal [facility] Comment on above: Performed By: #### B MP ####[facility] [address] [place], [place] [address]Dr. Balta Gorman CBC AUTO DIFFon 03-23-2022 BASO # 0.1 103/ul Normal 0.0-0.1 [facility] Comment on above: Performed By: #### C VDTB #### [facility] [address] [place] [address] Dr. Balta Gorman Basophils/100 WBC (Bld) 1.0 % Normal 0.2-2.0 [facility] Comment on above: Performed By: #### C VDTBH #### [facility] [address] [place] [address] Dr. Balta Gorman EO # 0.3 103/ul Normal 0.0-0.7 [facility] Comment on above: Performed By: #### C VDTBH #### [facility] [address] [place] [address] Dr. Balta Gorman Eosinophils/100 WBC (Bld) 4.5 % Normal 0.9-7.0 [facility] Comment on above: Performed By: #### C VDTBH #### [facility] [address] [place] [address] Dr. Balta Gorman Erythrocyte distribution width (RBC) [Ratio] 17.0 % Critically high 11.0-15.0 [facility] Comment on above: Performed By: #### C VDTBH #### [facility] [address] [place] [address] Dr. Balta Gorman Hematocrit (Bld) [Volume fraction] 35.7 % Critically low 42.0-54.0 [facility] Comment on above: Performed By: #### C VDTBH #### [facility] [address] [place] [address] Dr. Balta Gorman Hemoglobin (Bld) [Mass/Vol] 10.6 g/dL Critically low 14.0-18.0 [facility] Comment on above: Performed By: #### C VDTBH #### [facility] [address] [place] [address] Dr. Balta Gorman IG # 0.03 10e3/ul Normal 0.00-0.03 [facility] Comment on above: Performed By: #### C VDTBH #### [facility] [address] [place] [address] Dr. Balta Gorman IG % 0.4 % Normal 0.0-0.5 [facility] Comment on above: Performed By: #### C VDTBH #### [facility] [address] [place] [address] Dr. Balta Gorman LYMPH # 1.8 103/ul Normal 1.2-3.8 [facility] Comment on above: Performed By: #### C VDTBH #### [facility] [address] [place] [address] Dr. Balta Gorman Lymphocytes/100 WBC (Bld) 25.6 % Normal 20.5-60.0 [facility] Comment on above: Performed By: #### C VDTBH #### [facility] [address] [address] [address] Balta Gorman MANUAL DIFF REQ NO Normal [facility] Comment on above: Performed By: #### C VDTBH #### [facility] [address] [place] [address] Dr. Balta Gorman MCH (RBC) [Entitic mass] 22.8 pg Critically low 25.9-34.0 [facility] Comment on above: Performed By: #### C VDTBH #### [facility] [address] [place] [address] Dr. Balta Gorman MCHC (RBC) [Mass/Vol] 29.7 g/dL Critically low 29.9-35.2 [facility] Comment on above: Performed By: #### C VDTBH #### [facility] [address] [place] [address] Dr. Balta Gorman MCV (RBC) [Entitic vol] 76.9 fL Critically low 80.0-94.0 [facility] Comment on above: Performed By: #### C VDTBH #### [facility] [address] [place] [address] Dr. Balta Gorman MONO # 1.0 103/ul Critically high 0.3-0.8 [facility] Comment on above: Performed By: #### C VDTBH #### [facility] [address] [place] [address] Dr. Balta Gorman Monocytes/100 WBC (Bld) 13.8 % Critically high 1.7-12.0 [facility] Comment on above: Performed By: #### C VDTBH #### [facility] [address] [place] [address] Dr. Balta Gorman NEUT # 3.9 103/ul Normal 1.4-6.5 [facility] Comment on above: Performed By: #### C VDTBH #### [facility] [address] [place] [address] Dr. Balta Gorman Neutrophils/100 WBC (Bld) 54.7 % Normal 43.0-75.0 [facility] Comment on above: Performed By: #### C VDTBH #### [facility] [address] [address] [address] Balta Gorman Platelet mean volume (Bld) [Entitic vol] 10.5 fL Normal 9.5-13.5 [facility] Comment on above: Performed By: #### C VDTBH #### [facility] [address] [address] [address] Balta Gorman PLT 271 103/ul Normal 150-450 [facility] Comment on above: Performed By: #### C VDTBH #### [facility] [address] [address] [address] Balta Gorman RBC 4.64 106/ul Critically low 4.70-6.10 [facility] Comment on above: Performed By: #### C VDTBH #### [facility] [address] [address] [address] Balta Gorman WBC 7.2 103/ul Normal 4.0-11.0 [facility] Comment on above: Performed By: #### C VDTBH #### [facility] [address] [address] [address] Balta Gorman GLYCOHEMOGLOBIN A1Con 2021 ADA RECOMMENDATION SEE BELOW Normal [facility] Comment on above: Result Comment: ADA RECOMMENDED LIMIT 4.0 - 6.0 ADA THERAPEUTIC TARGET < 7.0 ACTION SUGGESTED > 7.0 Performed By: #### A 1C #### [facility] [address] [address] [address] Balta Gorman Glucose [Mass/Vol] 177 mg/dL Normal [facility] Comment on above: Performed By: #### A 1C #### [facility] [address] [address] [address] Balta Gorman HbA1c (Bld) [Mass fraction] 7.8 % Critically high 4.5-6.2 [facility] Comment on above: Performed By: #### A 1C #### [facility] [address] [address] [address] Balta Gorman GRAM STAINon 03-23-2022 COMMENTS NO ORGANISMS OBSERVED Normal [facility] Comment on above: Performed By: #### A FB #### [facility] [address] [address] [address] Balta Gorman DIPHTHEROIDS Normal [facility] Comment on above: Performed By: #### A FB #### [facility] [address] [place] [address] Dr. Balta Gorman EPITHELIALS Normal [facility] Comment on above: Performed By: #### A FB #### [facility] [address] [address] [address] Balta Gorman FUNGAL ELEMENTS Normal [facility] Comment on above: Performed By: #### A FB #### [facility] [address] [address] [address] Balta Gorman GRAM NEG BACILLI [facility] Comment on above: Performed By: #### A FB #### [facility] [address] [place] [address] Dr. Balta CAVAZOS NEG DIPPLOCOCCI [facility] Comment on above: Performed By: #### A FB #### [facility] [address] [address] [address] Balta Gorman GRAM POS BACILLI [facility] Comment on above: Performed By: #### A FB #### [facility] [address] [place] [address] Dr. Balta Gorman GRAM POSITIVE COCCI Normal [facility] Comment on above: Performed By: #### A FB #### [facility] [address] [address] [address] Balta Gorman GRAM STAIN SOURCE r. 2nd toe bone- pos t irrigation Normal [facility] Comment on above: Performed By: #### A FB #### [facility] [address] [place] [address] Dr. Balta oGrman GS_DIPTH [facility] Comment on above: Performed By: #### A FB #### [facility] [address] [place] [address] Dr. Balta Gorman WBC RARE Normal [facility] Comment on above: Performed By: #### A FB #### [facility] [address] [address] [address] Balta Gorman POINT OF CARE GLUCOSEon 03-05 Glucose [Mass/Vol] 209 mg/dL Critically high [address] [place] [address] Comment on above: Performed By: #### A FB #### [facility] [address] [address] [address] Balta Gorman Glucose [Mass/Vol] 203 mg/dL Critically high [address] [place] [address] Comment on above: Performed By: #### P OCGLUC #### [facility] [address] [address] [address] Balta Gorman Glucose [Mass/Vol] 119 mg/dL Critically high [address] [place] [address] Comment on above: Performed By: #### A FB #### [facility] [address] [place] [address] Dr. Balta Gorman Glucose [Mass/Vol] 115 mg/dL Critically high [address] [place] [address] Comment on above: Performed By: #### A FB #### [facility] [address] [address] [address] Balta Gorman PROF CHEM 8 (BAS METB)on Anion gap [Moles/Vol] 12.2 mmol/L Normal [facility] Comment on above: Performed By: #### A FB #### [facility] [address] [address] [address] Balta Gorman Calcium [Mass/Vol] 8.1 mg/dL Critically low 8.5-10.1 [facility] Comment on above: Performed By: #### A FB #### [facility] [address] [address] [address] Balta Gorman Chloride [Moles/Vol] 104 mmol/L Normal 98-107 [facility] Comment on above: Performed By: #### A FB #### [facility] [address] [place] [address] Dr. Balta Gorman CO2 [Moles/Vol] 24.5 mmol/L Normal 21.0-32.0 [facility] Comment on above: Performed By: #### A FB #### [facility] [address] [address] [address] Balta Gorman Creatinine [Mass/Vol] 1.06 mg/dL Normal 0.70-1.30 [facility] Comment on above: Performed By: #### A FB #### [facility] [address] [place] [address] Dr. Balta Gorman EGFR-AF KUWAITI >60 Normal >=60 [facility] Comment on above: Performed By: #### A FB #### [facility] [address] [place] [address] Dr. Balta Gorman EGFR-NON AF KUWAITI >60 Normal >=60 [facility] Comment on above: Performed By: #### A FB #### [facility] [address] [place] [address] Dr. Balta Gorman Glucose [Mass/Vol] 110 mg/dL Critically high 74-106 [facility] Comment on above: Performed By: #### A FB #### [facility] [address] [place] [address] Dr. Balta Gorman Potassium [Moles/Vol] 3.7 mmol/L Normal 3.5-5.1 [facility] Comment on above: Performed By: #### A FB #### [facility] [address] [place] [address] Dr. Balta Gorman Sodium [Moles/Vol] 137 mmol/L Normal 136-145 [facility] Comment on above: Performed By: #### A FB #### [facility] [address] [place] [address] Dr. Balta Gorman Urea nitrogen [Mass/Vol] 19.0 mg/dL Critically high 7.0-18.0 [facility] Comment on above: Performed By: #### A FB #### [facility] [address] [place] [address] Dr. Balta Gorman Urea nitrogen/Creatinine [Mass ratio] 17.9 mg/mg Normal [facility] Comment on above: Performed By: #### A FB #### [facility] [address] [address] [address] Balta Gorman PROTIMEon 03-23-2022 INR Coag (PPP) [Relative time] 1.06 {INR} Normal [facility] Comment on above: Performed By: #### P TT, PT ####[facility] [address] [place], [place] [address]DrPaola Gorman INR GUIDELINES SEE BELOW Normal [facility] Comment on above: Result Comment: PORSCHE RED INR: 2.0 - 3.0 CONDITIONS NOT LISTED BELOW 2.5 - 3.5 FOR PROSTHETIC HEART VALVE REPLACEMENT 2.5 - 3.5 RECURRENT THROMBOSIS Performed By: #### P TT, PT ####[facility] [address] [place], [place] [address]DrPaola Gorman PT Coag (PPP) [Time] 11.4 s Normal 9.0-11.6 [facility] Comment on above: Performed By: #### P TT, PT ####[facility] [address] [place], [place] [address]DrPaola Gorman PTTon 03-23-2022 aPTT Coag (Bld) [Time] 33.8 s Normal 22.3-36.2 [facility] Comment on above: Performed By: #### P TT, PT ####[facility] [address] [place], [place] [address]DrPaola Gorman CBC AUTO DIFFon 03-22-2022 BASO # 0.1 103/ul Normal 0.0-0.1 [facility] Comment on above: Performed By: #### C BC ####[facility] [address] [place], [place] [address]DrPaola Gorman Basophils/100 WBC (Bld) 0.9 % Normal 0.2-2.0 [facility] Comment on above: Performed By: #### C BC ####[facility] [address] [place], [place] [address]DrPaola Gorman EO # 0.3 103/ul Normal 0.0-0.7 [facility] Comment on above: Performed By: #### C BC ####[facility] [address] [address]Dr. Balta Gorman Eosinophils/100 WBC (Bld) 3.2 % Normal 0.9-7.0 [facility] Comment on above: Performed By: #### C BC ####[facility] [address] [place], [place] [address]Dr. Balta Gorman Erythrocyte distribution width (RBC) [Ratio] 17.5 % Critically high 11.0-15.0 [facility] Comment on above: Performed By: #### C BC ####[facility] [address] [place], [place] [address]Dr. Balta Gorman Hematocrit (Bld) [Volume fraction] 39.5 % Critically low 42.0-54.0 [facility] Comment on above: Performed By: #### C BC ####[facility] [address] [place], [place] [address]Dr. Balta Gorman Hemoglobin (Bld) [Mass/Vol] 11.6 g/dL Critically low 14.0-18.0 [facility] Comment on above: Performed By: #### C BC ####[facility] [address] [place], [place] [address]Dr. Balta Gorman IG # 0.03 10e3/ul Normal 0.00-0.03 [facility] Comment on above: Performed By: #### C BC ####[facility] [address] [place], [place] [address]Dr. Balta Gorman IG % 0.3 % Normal 0.0-0.5 [facility] Comment on above: Performed By: #### C BC ####[facility] [address] [place], [place] [address]Dr. Balta Gorman LYMPH # 1.6 103/ul Normal 1.2-3.8 [facility] Comment on above: Performed By: #### C BC ####[facility] [address] [place], [place] [address]Dr. Balta Gorman Lymphocytes/100 WBC (Bld) 17.7 % Critically low 20.5-60.0 [facility] Comment on above: Performed By: #### C BC ####[facility] [address] [id number]. Aurabenja Gorman MANUAL DIFF REQ NO Normal [facility] Comment on above: Performed By: #### C BC ####[facility] [address] [id number]. Balta Sherif MCH (RBC) [Entitic mass] 22.5 pg Critically low 25.9-34.0 [facility] Comment on above: Performed By: #### C BC ####[facility] [address] [address]Dr. Balta Gorman MCHC (RBC) [Mass/Vol] 29.4 g/dL Critically low 29.9-35.2 [facility] Comment on above: Performed By: #### C BC ####[facility] [address] [address]Dr. Balta Gorman MCV (RBC) [Entitic vol] 76.6 fL Critically low 80.0-94.0 [facility] Comment on above: Performed By: #### C BC ####[facility] [address] [address]Dr. Aurabenja Sherif MONO # 1.0 103/ul Critically high 0.3-0.8 [facility] Comment on above: Performed By: #### C BC ####[facility] [address] [address]Dr. Balta Gorman Monocytes/100 WBC (Bld) 11.0 % Normal 1.7-12.0 [facility] Comment on above: Performed By: #### C BC ####[facility] [address] [place], [place] [address]Dr. Balta Gorman NEUT # 5.9 103/ul Normal 1.4-6.5 [facility] Comment on above: Performed By: #### C BC ####[facility] [address] [place], [place] [address]Dr. Balta Gorman Neutrophils/100 WBC (Bld) 66.9 % Normal 43.0-75.0 [facility] Comment on above: Performed By: #### C BC ####[facility] [address] [place], [place] [address]Vc. Balta Gorman Platelet mean volume (Bld) [Entitic vol] 10.4 fL Normal 9.5-13.5 [facility] Comment on above: Performed By: #### C BC ####[facility] [address] [place], [place] [address]Nn. Balta Gorman PLT 319 103/ul Normal 150-450 [facility] Comment on above: Performed By: #### C BC ####[facility] [address] [place], [place] [address]Fv. Balta Gorman RBC 5.16 106/ul Normal 4.70-6.10 [facility] Comment on above: Result Comment: SLIG HT HYPOCHROMIA Performed By: #### C BC ####[facility] [address] [phone]. Balta Gorman WBC 8.8 103/ul Normal 4.0-11.0 [facility] Comment on above: Performed By: #### C BC ####[facility] [address] [place], [place] [address]Zf. Balta Gorman CULTURE BLOODon 03-22-2022 Microscopic examination of blood, culture Culture Observations: No growth at 5 days. Isolate 1 BC_BA_NA Normal [facility] Comment on above: Performed By: #### C VDTB #### [facility] [address] [address] [address] Balta Gorman Microscopic examination of blood, culture Culture Observations: No growth at 5 days. Isolate 1 BC_BA_NA Normal [facility] Comment on above: Performed By: #### C VDTB #### [facility] [address] [address] [address] Balta Gorman [facility]05 SARS-CoV-2 (COVID-19) RNA DERICK+probe Ql (Unsp spec) Not detected Normal NOT DETECTED [facility] Comment on above: Result Comment: When diagnostic testing is negative, the possibility of a false negative should be considered in the context of a patient's recent exposures and the presence of clinical signs and symptoms consistent with SARS-CoV-2. This test is not yet approved or cleared by the [place] Food and Drug Administration (FDA). This test was developed by [employer], [place], [place]. The performance characteristics of this test were validated by [facility]. The results are not intended to be used as the sole means for clinical diagnosis or patient management decisions. [facility] is authorized under Clinical Laboratory Improvement Amendments [...] for this test is supported by the [place] of Health and Human Service's declaration that [...] used). Performed By: #### C VDTBH #### [facility] [address] [address] [address] Balta Gorman POINT OF CARE GLUCOSEon 03-05 Glucose [Mass/Vol] 121 mg/dL Critically high 74-106 [facility] Comment on above: Performed By: #### P OCGLUC #### [facility] [address] [address] [address] Balta Gorman Glucose [Mass/Vol] 109 mg/dL Critically high 74-106 [facility] Comment on above: Performed By: #### P OCGLUC #### [facility] [address] [address] [address] Balta Gorman PROF 14(COMP METB)on 022 Albumin [Mass/Vol] 3.5 g/dL Normal 3.4-5.0 [facility] Comment on above: Performed By: #### C MP ####[facility] [address] [address]Dr. Chavarrialan Sherif Albumin/Globulin [Mass ratio] 0.8 {ratio} Normal [facility] Comment on above: Performed By: #### C MP ####[facility] [address] [address]Dr. Balta Sherif ALP [Catalytic activity/Vol] 78 U/L Normal 46-116 [facility] Comment on above: Performed By: #### C MP ####[facility] [address] [place], [place] [address]Dr. Balta Sherif ALT [Catalytic activity/Vol] 24 U/L Normal 16-63 [facility] Comment on above: Performed By: #### C MP ####[facility] [address] [place], [place] [address]Dr. Aurabenja Sherif Anion gap [Moles/Vol] 11.9 mmol/L Normal [facility] Comment on above: Performed By: #### C MP ####[facility] [address] [place], [place] [address]Dr. Balta Sherif AST [Catalytic activity/Vol] 16 U/L Normal 15-37 [facility] Comment on above: Performed By: #### C MP ####[facility] [address] [place], [place] [address]Dr. Balta Gorman Bilirubin [Mass/Vol] 0.6 mg/dL Normal 0.2-1.0 [facility] Comment on above: Performed By: #### C MP ####[facility] [address] [place], [place] [address]Dr. Balta Gorman Calcium [Mass/Vol] 8.7 mg/dL Normal 8.5-10.1 [facility] Comment on above: Performed By: #### C MP ####[facility] [address] [place], [place] [address]Dr. Balta Gorman Chloride [Moles/Vol] 104 mmol/L Normal 98-107 [facility] Comment on above: Performed By: #### C MP ####[facility] [address] [place], [place] [address]Dr. Balta Gorman CO2 [Moles/Vol] 28.1 mmol/L Normal 21.0-32.0 [facility] Comment on above: Performed By: #### C MP ####[facility] [address] [id number]. Balta Sherif Creatinine [Mass/Vol] 1.24 mg/dL Normal 0.70-1.30 [facility] Comment on above: Performed By: #### C MP ####[facility] [address] [phone]. Balta Sherif EGFR-AF KUWAITI >60 Normal >=60 [facility] Comment on above: Performed By: #### C MP ####[facility] [address] [id number]. Balta Gorman EGFR-NON AF KUWAITI 58 mL/min/1.73m2 Critically low >=60 [facility] Comment on above: Performed By: #### C MP ####[facility] [address] [address]Dr. Balta Gorman Globulin (S) [Mass/Vol] 4.4 g/dL Normal [facility] Comment on above: Performed By: #### C MP ####[facility] [address] [id number]. Balta Gorman Glucose [Mass/Vol] 205 mg/dL Critically high 74-106 [facility] Comment on above: Performed By: #### C MP ####[facility] [address] [id number]. Balta Gorman Potassium [Moles/Vol] 4.0 mmol/L Normal 3.5-5.1 [facility] Comment on above: Performed By: #### C MP ####[facility] [address] [address]Dr. Balta Gorman Protein [Mass/Vol] 7.9 g/dL Normal 6.4-8.2 [facility] Comment on above: Performed By: #### C MP ####[facility] [address] [phone]. Balta Gorman Sodium [Moles/Vol] 140 mmol/L Normal 136-145 [facility] Comment on above: Performed By: #### C MP ####[facility] [address] [place], [place] [address]Dr. Balta Gorman Urea nitrogen [Mass/Vol] 22.0 mg/dL Critically high 7.0-18.0 [facility] Comment on above: Performed By: #### C MP ####[facility] [address] [place], [place] [address]Dr. Balta Gorman Urea nitrogen/Creatinine [Mass ratio] 17.7 mg/mg Normal [facility] Comment on above: Performed By: #### C MP ####[facility] [address] [place], [place] [address]Dr. Balta Gorman UA (CLEAN/CATCH) SPRING UPHOLSTERER/MICRO I F IND.on 03-22-2022 Bilirubin Ql (U) Negative Normal NEGATIVE [facility] Comment on above: Performed By: #### U ACSIND ####[facility] [address] [place], [place] [address]Dr. Balta Gorman Clarity (U) CLEAR Normal CLEAR [facility] Comment on above: Performed By: #### U ACSIND ####[facility] [address] [place], [place] [address]Dr. Balta Gorman Color (U) LT. YELLOW Normal YELLOW [facility] Comment on above: Performed By: #### U ACSIND ####[facility] [address] [place], [place] [address]Dr. Balta Gorman Glucose Ql (U) >1000 Abnormal NEGATIVE [facility] Comment on above: Performed By: #### U ACSIND ####[facility] [address] [place], [place] [address]Dr. Balta Gorman Hemoglobin Ql (U) Negative Normal NEGATIVE [facility] Comment on above: Performed By: #### U ACSIND ####[facility] [address] [place], [place] [address]Dr. Balta Gorman Ketones Ql (U) Negative Normal NEGATIVE [facility] Comment on above: Performed By: #### U ACSIND ####[facility] [address] [address]Dr. Balta Gorman LEUKOCYTES Negative Normal NEGATIVE [facility] Comment on above: Performed By: #### U ACSIND ####[facility] [address] [address]Dr. Balta Gorman Nitrite Ql (U) Negative Normal NEGATIVE [facility] Comment on above: Performed By: #### U ACSIND ####[facility] [address] [address]Dr. Balta Gorman pH (U) 6.0 [pH] Normal 5-9 [facility] Comment on above: Performed By: #### U ACSIND ####[facility] [address] [place], [place] [address]Dr. Balta Gorman SPEC GRAVITY 1.010 Normal 1.005-<=1.02 5 [facility] Comment on above: Performed By: #### U ACSIND ####[facility] [address] [place], [place] [address]Dr. Balta Gorman UA PROTEIN Negative Normal NEGATIVE/ TRACE [facility] Health Comment on above: Performed By: #### U ACSIND ####[facility] [id number] [place], [place] [address]Dr. Balta Gorman UR MICRO IND NOT INDICATED Normal [facility] Comment on above: Performed By: #### U ACSIND ####[facility] [id number] [place] [address]Dr. Balta Gorman Urobilinogen Qn (U) 0.2 {Jose Luis'U}/dL Normal 0.2 - 1. 0 [facility] Comment on above: Performed By: #### U ACSIND ####[facility] [id number] [place], [place] [address]Dr. Balta Gorman XR FOOT RT MIN 3 [...] HELGA GOLDBERG Date: 2022-03-22 15:21 Normal [facility] - Chemistry and C hemistry - challengeon 03-10-2022 Cholesterol [Mass/Vol] 167\S\167 Normal 140-200 [facility] 600 DO Work Phone: Comment on above: Chol less than 200 m g/dl low risk Chol 201-239 mg/dl borderline risk Chol 240 mg/dl and greater high risk Cholesterol in LDL [Mass/Vol] 80\S\80 Normal 0-100 [facility] 600 DO Work Phone: Comment on above: LDL ATP III CLASSIFI CATION LDL less than 100 mg/dL Optimal LDL 100-129 mg/dL Near or above optimal LDL 130-159 mg/dL Borderline high LDL 160-189 mg/dL High LDL greater than 189 mg/dL Very high Laboratory - Microbiology an d Antimicrobial susceptibilityon 03-10-2022 SARS-CoV-2 (COVID-19) RNA DERICK+probe Ql (Unsp spec) [facility] 600 DO Work Phone: No Panel Informationon 03-10 0.1\S\0.1 Normal 0-0.5 [facility] 600 DO Work Phone: Comment on above: PERFORMED BY:[place] [address] [place], [place] [id number] MEDICAL DIRECTORERLIN GUPTA M.D. 0.2\S\0.2 Normal 0.0-0.45 [facility] 600 DO Work Phone: 0.7\S\0.7 Normal 0.0-0.8 -[facility] 600 DO Work Phone: 1.6\S\1.6 Normal . -[facility] 600 DO Work Phone: 3.8\S\3.8 Normal 1.8-7.7 -[facility] 600 DO Work Phone: 3.4\S\3.4 Normal . [facility] 600 DO Work Phone: 10.2\S\10.2 Normal . -[facility] 600 DO Work Phone: 25.1\S\25.1 Normal . [facility] 600 DO Work Phone: 59.7\S\59.7 Normal . [facility] 600 DO Work Phone: 8.6\S\8.6 Normal 6.6-10.1 [facility] 600 DO Work Phone: 270\S\270 Normal 150-450 [facility] 600 DO Work Phone: 17.0\S\17.0 above high threshold 12.0-14.8 -[facility] 600 DO Work Phone: 31.9\S\31.9 below low threshold 32.5-35.6 -[facility] 600 DO Work Phone: 22.6\S\22.6 below low threshold 27.5-35.2 -[facility] 600 DO Work Phone: 70.8\S\70.8 below low threshold 83.5-101 -[facility] 600 DO Work Phone: 38.9\S\38.9 Normal 38.8-50.0 -[facility] 600 DO Work Phone: 12.4\S\12.4 below low threshold 13.0-17.0 -[facility] 600 DO Work Phone: 5.49\S\5.49 Normal 3.90-5.60 [facility] 600 DO Work Phone: 6.4\S\6.4 Normal 4.1-10.5 [facility] 600 DO Work Phone: 30.4\S\30.4 Normal 25.1-36.5 -[facility] 600 DO Work Phone: Comment on above: PERFORMED BY:[address] [address] [place], [place] [phone] MEDICAL DIRECTORERLIN GUPTA M.D. 1.1\S\1.1 Normal [facility] 600 DO Work Phone: Comment [...] valves: 3 - 4.5 12.7\S\12.7 Normal 9.0-12.9 [facility] 600 DO Work Phone: Negative Normal Negative [facility] 600 DO Work Phone: Comment on above: This is a duplicate Erum SARS Antigen (JOSE L) result to be used for statistical tracking purpose only.PERFORMED BY:[address] [address] [place] [place], [place] [id number] MEDICAL DIRECTORERLIN GUPTA M.D. 22.9\S\22.9 Normal 22.0-30.0 [facility] 600 DO Work Phone: 105\S\105 Normal 95-114 [facility] 600 DO Work Phone: 4.3\S\4.3 Normal 3.5-5.1 [facility] 600 DO Work Phone: 137\S\137 Normal 136-146 [place] [address] DO Work Phone: 21\S\21 below low threshold 29-71 [facility] 600 DO Work Phone: Comment on above: HDL CHOL ATP-III CLA SSIFICATION Cardiovascular Risk HDL > or equal to 60 mg/dL LOW HDL < 40 mg/dL HIGH > 60 Normal [facility] 600 DO Work Phone: Comment on above: GFR estimated refere nce range: According to KDOQI guidelines, <60 ml/min/1.73m2 is sufficient to diagnose a patient with chronic kidney disease. 1.01\S\1.01 Normal 0.64-1.27 [place] [address] DO Work Phone: 8.0\S\8.0 Normal <5.0 [facility] Poliglota DO Work Phone: Comment on above: PERFORMED BY:[place] [address] [place] [place], [place] [id number] MEDICAL DIRECTORERLIN GUPTA M.D. 66\S\65 Normal [facility] 600 DO Work Phone: 328\S\328 above high threshold 35-149 [facility] 600 DO Work Phone: Comment on above: TRIG ATP III CLASSIF ICATION TRIG less than 150 mg/dL Normal TRIG 150-199 mg/dL Borderline high TRIG 200-500 mg/dL High TRIG greater than 500 mg/dL Very high Standard traceable to the Center for Disease Conrtrol and Prevention (CDC) test method. NO CARDIAC STRESS/REST INJE CTIONon 03-01-2022 [facility] CARDIAC STRESS/REST INJECTION Patient Name: JANICE FORD STUDY: MYOCARDIAL PERFUSION STRESS TEST WITH LEXISCAN Performing facility: [facility], [address] [place] [address], [address], [place] [address] [facility] Provider: Helga Flores DO [facility] PCP: Dr. Vineet Agrawal Supervising provider: Ratna Elias DO [facility] INDICATION: Angina CAD; S/P PTCA HISTORY: Gender: M; Age: 67 y/o ; Height: 185.42 cm; Weight: 106.881921 kg. High Cholesterol; CAD; Diabetes; HTN; Chest Pain; Denies smoking. Cardiac catheterization on 2021. PTCA on 2021. CABG on 1992. COMPARISON: Previous nuclear testing completed at [facility]. ACCESSION NUMBER(S): [id number]; [id number]; [id number] ORDERING CLINICIAN: HELGA FLORES TECHNIQUE: ONE DAY [...] wall ischemia is new. Electronically signed by: MARGAXU CASTILLO MD Normal [facility] No Panel Informationon 03-01 Normal -[facility] 250 DO Work Phone: Complete Blood Count with Au to Diffon 01-23-2022 Basophils (Bld) [#/Vol] 0.08 10*3/uL Normal 0.00-0.20 [facility] [employer] Comment on above: Performed By: #### C BCAD #### [facility] [address], [place] [id number] Basophils/100 WBC (Bld) 1.1 % Normal [facility] Specialist Comment on above: Performed By: #### C BCAD #### [facility] [address], [place] [id number] Eosinophils (Bld) [#/Vol] 0.29 10*3/uL Normal 0.02-0.50 [facility] Specialist Comment on above: Performed By: #### C BCAD #### [facility] [address], [place] [id number] Eosinophils/100 WBC (Bld) 4.1 % Normal [facility] Comment on above: Performed By: #### C BCAD #### [facility] [address], [place] [id number] Erythrocyte distribution width (RBC) [Ratio] 17.6 % High 11.0-15.0 [facility] Specialist Comment on above: Performed By: #### C BCAD #### [facility] [address], [place] [id number] Hematocrit (Bld) [Volume fraction] 41.0 % Normal 38.5-50.0 [facility] Specialist Comment on above: Performed By: #### C BCAD #### [facility] [address], [place] [id number] Hemoglobin (Bld) [Mass/Vol] 11.9 g/dL Low 13.0-17.1 [facility] Specialist Comment on above: Performed By: #### C BCAD #### [facility] [address], [place] [id number] Lymphocytes (Bld) [#/Vol] 1.8 10*3/uL Normal 0.9-3.9 [facility] Specialist Comment on above: Performed By: #### C BCAD #### [facility] [address], [place] [id number] Lymphocytes/100 WBC (Bld) 25.1 % Normal [facility] Specialist Comment on above: Performed By: #### C BCAD #### [facility] [address], [place] [id number] MCH (RBC) [Entitic mass] 21.9 pg Low 27.0-33.0 [facility] [employer] Comment on above: Performed By: #### C BCAD #### [facility] [address], [place] [id number] MCHC (RBC) [Mass/Vol] 29.0 g/dL Low 32.0-36.0 [facility] [employer] Comment on above: Performed By: #### C BCAD #### [facility] [address], [place] [id number] MCV (RBC) [Entitic vol] 76 fL Low 80-100 [facility] Specialist Comment on above: Performed By: #### C BCAD #### [facility] [address], [place] [id number] Monocytes (Bld) [#/Vol] 0.7 10*3/uL Normal 0.2-0.9 [facility] Specialist Comment on above: Performed By: #### C BCAD #### [facility] [address], [place] [id number] Monocytes/100 WBC (Bld) 9.3 % Normal [facility] Specialist Comment on above: Performed By: #### C BCAD #### [facility] [address], [place] [id number] Neutrophils (Bld) [#/Vol] 4.3 10*3/uL Normal 1.5-7.8 [facility] [place] [employer] Comment on above: Performed By: #### C BCAD #### [facility] [address], [place] [id number] Neutrophils/100 WBC (Bld) 60.0 % Normal [facility] Comment on above: Performed By: #### C BCAD #### [facility] [address], [place] [id number] Platelet mean volume (Bld) [Entitic vol] 10.50 fL Normal 7.50-12.50 [facility] Comment on above: Performed By: #### C BCAD #### [facility] [address], [place] [id number] Platelets (Bld) [#/Vol] 306 10*3/uL Normal 140-400 [facility] Comment on above: Performed By: #### C BCAD #### [facility] [address], [place] [id number] RBC (Bld) [#/Vol] 5.43 10*6/uL Normal 4.20-5.80 [facility] Comment on above: Performed By: #### C BCAD #### [facility] [address], [place] [id number] RDW-SD 46.0 fL Normal 37.0-50.0 [facility] Comment on above: Performed By: #### C BCAD #### [facility] [address], [place] [id number] WBC (Bld) [#/Vol] 7.1 10*3/uL Normal 3.8-11.0 [facility] Comment on above: Performed By: #### C BCAD #### [facility] [address], [place] [id number] Hemoglobin A1Con 01-23-2022 EAG 182.90 Normal [facility] Comment on above: Performed By: #### A 1C #### [facility] [address], [place] [id number] HbA1c (Bld) [Mass fraction] 8.0 % High 4.0-6.0 [facility] Comment on above: Performed By: #### A 1C #### [facility] [address], [place] [id number] Lipid Panelon 01-23-2022 Cholesterol [Mass/Vol] 177 mg/dL Normal 125-200 [facility] Specialist Comment on above: Result Comment: Low risk < 200mg/dL Borderline risk 201-239 mg/dl High risk > or equal to 240 Performed By: #### L IPD #### [facility] [address], [place] [id number] Cholesterol in HDL [Mass/Vol] 25 mg/dL Low >40 [facility] [employer] Comment on above: Result Comment: High Cardiovascular Risk HDL <40 mg/dL Low Cardiovascular Risk HDL > or equal to 60 mg/dl Performed By: #### L IPD #### [facility] [address], [place] [id number] Cholesterol in LDL [Mass/Vol] 83 mg/dL Normal [facility] Specialist Comment on above: Result Comment: LDL ATP III CLASSIFICATION LDL less than 100 mg/dl Optimal LDL 100-129 mg/dl Near or above optimal LDL 130-159 Borderline high LDL 160-189 High LDL greater than 189 mg/dl Very High Performed By: #### L IPD #### [facility] [address], [place] [id number] Cholesterol in VLDL [Mass/Vol] 69 mg/dL Normal [facility] Specialist Comment on above: Performed By: #### L IPD #### [facility] [address], [place] [id number] Cholesterol.total/Ch olesterol in HDL [Mass ratio] 7 {ratio} Normal [facility] Specialist Comment on above: Performed By: #### L IPD #### [facility] [address], [place] [id number] Triglyceride [Mass/Vol] 343 mg/dL High 30-150 [facility] [employer] Comment on above: Result Comment: TRIG ATPIII CLASSIFICATIONS TRIG less than 150 mg/dl Normal TRIG 150-199 mg/dl Borderline High TRIG 200-500 mg/dl High TRIG greather than 500 mg/dl Very High Performed By: #### L IPD #### [facility] [address], [place] [id number] PSA SCREEN (MEDICARE)on 01-04 TPSA 0.405 ng/mL Normal <4.000 [facility] [employer] Comment on above: Result Comment: PSA Test Method: ECLIA/Joseph e 601 Performed By: #### P #### [facility] [address] [place], [place] [id number] Tobacco Screening.on 022 Fall risk assessment a) No falls within the last year [facility] [employer] 250 DO Work Phone: Tobacco use status CPHS b) No [facility] 250 DO Work Phone: Laboratory - Chemistry and C hemistry - challengeon 11-07-2021 Cholesterol [Mass/Vol] 183\S\183 Normal 140-200 [facility] Work Phone: Comment on above: Chol less than 200 m g/dl low risk Chol 201-239 mg/dl borderline risk Chol 240 mg/dl and greater high risk Cholesterol in LDL [Mass/Vol] 97\S\97 Normal 0-100 [facility] [employer] DO Work Phone: Comment on above: LDL ATP III CLASSIFI CATION LDL less than 100 mg/dL Optimal LDL 100-129 mg/dL Near or above optimal LDL 130-159 mg/dL Borderline high LDL 160-189 mg/dL High LDL greater than 189 mg/dL Very high Laboratory - Microbiology an d Antimicrobial susceptibilityon 11-07-2021 SARS-CoV-2 (COVID-19) RNA DERICK+probe Ql (Unsp spec) [facility] [employer] DO Work Phone: No Panel Informationon 11-07 56.2\S\56.2 Normal . [facility] 250 DO Work Phone: 8.5\S\8.5 Normal 6.6-10.1 [facility] [employer] 250 DO Work Phone: 279\S\279 Normal 150-450 [facility] Work Phone: 16.0\S\16.0 above high threshold 12.0-14.8 [facility] 250 DO Work Phone: 31.3\S\31.3 below low threshold 32.5-35.6 -[facility] 250 DO Work Phone: 22.7\S\22.7 below low threshold 27.5-35.2 [facility] 250 DO Work Phone: 3.5\S\3.5 Normal 1.8-7.7 [facility] 250 DO Work Phone: 0.1\S\0.1 Normal 0.0-0.2 -[facility] 250 DO Work Phone: Comment on above: PERFORMED BY:[place] [address] [place], [place] [id number] MEDICAL DIRECTORERLIN GUPTA M.D. 1.4\S\1.4 Normal . [facility] 250 DO Work Phone: 4.0\S\4.0 Normal . [facility] 250 DO Work Phone: 10.2\S\10.2 Normal . [facility] 250 DO Work Phone: 28.2\S\28.2 Normal . [facility] 250 DO Work Phone: 0.2\S\0.2 Normal 0.0-0.45 [facility] 250 DO Work Phone: 0.6\S\0.6 Normal 0.0-0.8 [facility] 250 DO Work Phone: 1.7\S\1.7 Normal 1.00-4.8 [facility] 250 DO Work Phone: 72.3\S\72.3 below low threshold 83.5-101 [facility] 250 DO Work Phone: 39.8\S\39.8 Normal 38.8-50.0 [facility] 250 DO Work Phone: 12.5\S\12.5 below low threshold 13.0-17.0 [facility] 250 DO Work Phone: 5.50\S\5.50 Normal 3.90-5.60 [facility] 250 DO Work Phone: 6.2\S\6.2 Normal 4.1-10.5 [facility] 250 DO Work Phone: 34.4\S\34.4 Normal 25.1-36.5 [facility] 250 DO Work Phone: Comment on above: PERFORMED BY:[place] [address] [place], [place] [id number] MEDICAL DIRECTORERLIN GUPTA M.D. 1.1\S\1.1 Normal [facility] 250 DO Work Phone: Comment on above: [...] valves: 3 - 4.5 12.2\S\12.2 Normal 9.0-12.9 [facility] 250 DO Work Phone: Negative Normal Negative [facility] 250 DO Work Phone: Comment on above: This is a duplicate Erum SARS Antigen (JOSE L) result to be used for statistical tracking purpose only.PERFORMED BY:[place] [address] [address] [place], [place] [id number] MEDICAL DIRECTORERLIN GUPTA M.D. 24.2\S\24.2 Normal 22.0-30.0 [facility] 250 DO Work Phone: 101\S\101 Normal 95-114 [facility] 250 DO Work Phone: 4.5\S\4.5 Normal 3.5-5.1 [facility] 250 DO Work Phone: 139\S\139 Normal 136-146 [facility] 250 DO Work Phone: 23\S\23 Normal 9-23 [facility] 250 DO Work Phone: > 60 Normal [facility] 250 DO Work Phone: Comment on above: GFR estimated refere nce range: According to KDOQI guidelines, <60 ml/min/1.73m2 is sufficient to diagnose a patient with chronic kidney disease. 1.14\S\1.14 Normal 0.64-1.27 [facility] 250 DO Work Phone: 9.2\S\9.2 Normal <5.0 [facility] 250 DO Work Phone: Comment on above: PERFORMED BY:[address] [place], [place] [id number] MEDICAL DIRECTORERLIN GUPTA M.D. 66\S\65 Normal [facility] 250 DO Work Phone: 329\S\329 above high threshold 35-149 [facility] 250 DO Work Phone: Comment on above: TRIG ATP III CLASSIF ICATION TRIG less than 150 mg/dL Normal TRIG 150-199 mg/dL Borderline high TRIG 200-500 mg/dL High TRIG greater than 500 mg/dL Very high Standard traceable to the Center for Disease Conrtrol and Prevention (CDC) test method. 20\S\20 below low threshold 29-71 -[facility] 250 DO Work Phone: Comment on above: HDL CHOL ATP-III CLA SSIFICATION Cardiovascular Risk HDL > or equal to 60 mg/dL LOW HDL < 40 mg/dL HIGH [facility] CARDIAC STRESS/REST INJE CTIONon 10-12-2021 [facility] CARDIAC STRESS/REST INJECTION Patient Name: JANICE FORD STUDY: MYOCARDIAL PERFUSION STRESS TEST WITH LEXISCAN Performing facility: [facility], [address] [place] [address], [address], [place] [address] [facility] Provider: Helga Flores DO, [facility] PCP: Dr. Vineet Agrawal Supervising provider: Erika Osborne MD, [facility] INDICATION: CAD; HISTORY: Gender: M; Age: 66 y/o ; Height: 185.42 cm; Weight: 106.566773 kg. High Cholesterol; CAD; Diabetes; HTN; Chest Pain; Denies smoking. Cardiac catheterization on 2014. PTCA on 2014. COMPARISON: Previous nuclear testing completed [id number] at [facility]. ACCESSION NUMBER(S): [id number]; [id number]; [id number] ORDERING CLINICIAN: HELGA FLORES TECHNIQUE: ONE DAY [...] Electronically signed by: ERIKA OSBORNE MD Normal [facility] No Panel Informationon 10-12 Normal [facility] 600 DO Work Phone: Quick Strepon 10-10-2021 S. pyogenes Org specific cx Ql (Throat) Negative [facility] [employer] Other Quick Strep [employer] [facility] [employer] Other Tobacco Screening.on 021 Fall risk assessment a) No falls within the last year [facility] 250 DO Work Phone: Tobacco use status CPHS b) No [facility] 250 DO Work Phone: Vital Signs Date Time Vital Sign Value Performing Clinician Facility 02-23-2025 09:20-0400 Diastolic blood pressure 86 mm[Hg] [address] 02-23-2025 09:20-0400 Heart rate 76 /min [address] 02-23-2025 09:20-0400 Systolic blood pressure 136 mm[Hg] [address] 01-29-2025 08:49-0400 Body height 185.4 cm Latha HARRIS Work Phone: [facility] 01-29-2025 08:49-0400 Body mass index (BMI) [Ratio] 28.1 kg/m2 Latha Caicedo PA Work Phone: [facility] 01-29-2025 08:49-0400 Body temperature 97.3 [degF] Latha Caicedo PA Work Phone: [facility] 01-29-2025 08:49-0400 Body weight 96.62 kg Latha Caicedo PA Work Phone: [facility] 01-29-2025 08:49-0400 Diastolic blood pressure 72 mm[Hg] Latha Caicedo PA Work Phone: [facility] 01-29-2025 08:49-0400 Heart rate 76 /min Latha Caicedo PA Work Phone: [facility] 01-29-2025 08:49-0400 SaO2% (BldA) [Mass fraction] 96 % Latha Caicedo PA Work Phone: [facility] 01-29-2025 08:49-0400 Systolic blood pressure 130 mm[Hg] Latha Caicedo PA Work Phone: [facility] 01-28-2025 10:05-0400 Body height 185.4 cm Martin Elias DO Work Phone: [facility] 01-28-2025 10:05-0400 Body mass index (BMI) [Ratio] 28.68 kg/m2 Martin Elias DO Work Phone: [facility] 01-28-2025 10:05-0400 Body weight 98.61 kg Martin Elias DO Work Phone: [facility] 01-28-2025 10:05-0400 Diastolic blood pressure 66 mm[Hg] Martin Elias DO Work Phone: [facility] 01-28-2025 10:05-0400 Heart rate 82 /min Martin Elias DO Work Phone: [facility] 01-28-2025 10:05-0400 Systolic blood pressure 116 mm[Hg] Martin Elias DO Work Phone: [facility] 12-04-2024 11:36-0500 Body height 185.4 cm Joyce Loyd GUEST HISTORY CLERK Work Phone: [facility] 12-04-2024 11:36-0500 Body mass index (BMI) [Ratio] 28.23 kg/m2 Joyce Loyd GUEST HISTORY CLERK Work Phone: [facility] 12-04-2024 11:36-0500 Body temperature 98.01 [degF] Joyce Loyd GUEST HISTORY CLERK Work Phone: [facility] 12-04-2024 11:36-0500 Body weight 97.07 kg Joyce Loyd GUEST HISTORY CLERK Work Phone: [facility] 12-04-2024 11:36-0500 Diastolic blood pressure 78 mm[Hg] Joyce Loyd GUEST HISTORY CLERK Work Phone: [facility] 12-04-2024 11:36-0500 Heart rate 62 /min Joyce Loyd GUEST HISTORY CLERK Work Phone: [facility] 12-04-2024 11:36-0500 SaO2% (BldA) [Mass fraction] 99 % Joyce Loyd GUEST HISTORY CLERK Work Phone: [facility] 12-04-2024 11:36-0500 Systolic blood pressure 120 mm[Hg] Joyce Loyd GUEST HISTORY CLERK Work Phone: [facility] 12-04-2024 11:15-0500 Body height 185.4 cm Nitish Agrawal DO Work Phone: [facility] 12-04-2024 11:15-0500 Body mass index (BMI) [Ratio] 28.23 kg/m2 Nitish Agrawal DO Work Phone: [facility] 12-04-2024 11:15-0500 Body temperature 98.01 [degF] Nitish Agrawal DO Work Phone: [facility] 12-04-2024 11:15-0500 Body weight 97.07 kg Nitish Agrawal DO Work Phone: [facility] 12-04-2024 11:15-0500 Diastolic blood pressure 78 mm[Hg] Nitish Agrawal DO Work Phone: [facility] 12-04-2024 11:15-0500 Heart rate 62 /min Nitish Tanja DO Work Phone: [facility] 12-04-2024 11:15-0500 SaO2% (BldA) [Mass fraction] 99 % Nitish Agrawal DO Work Phone: [facility] 12-04-2024 11:15-0500 Systolic blood pressure 120 mm[Hg] Nitish Agrawal DO Work Phone: [facility] 06-16-2024 15:30-0400 Body height 185.4 cm Nitihs Tanja DO Work Phone: [facility] 06-16-2024 15:30-0400 Body mass index (BMI) [Ratio] 29.42 kg/m2 Nitish Tanja DO Work Phone: [facility] 06-16-2024 15:30-0400 Body temperature 98.29 [degF] Nitish Agrawal DO Work Phone: [facility] 06-16-2024 15:30-0400 Body weight 101.15 kg Nitish Agrawal DO Work Phone: [facility] 06-16-2024 15:30-0400 Diastolic blood pressure 80 mm[Hg] Nitish Agrawal DO Work Phone: [facility] [facility] 06-16-2024 15:30-0400 Heart rate 80 /min Nitish Agrawal DO Work Phone: [facility] 06-16-2024 15:30-0400 Systolic blood pressure 122 mm[Hg] Nitish Agrawal DO Work Phone: [facility] 01-29-2024 14:36-0400 Body height 185.4 cm Martin Elias DO Work Phone: [facility] 01-29-2024 14:36-0400 Body mass index (BMI) [Ratio] 29.69 kg/m2 Martin Elias DO Work Phone: [facility] 01-29-2024 14:36-0400 Body weight 102.06 kg Martin Elias DO Work Phone: [facility] 01-29-2024 14:36-0400 Diastolic blood pressure 70 mm[Hg] Martin Elias DO Work Phone: [facility] 01-29-2024 14:36-0400 Heart rate 86 /min Martin Elias DO Work Phone: [facility] 01-29-2024 14:36-0400 Systolic blood pressure 138 mm[Hg] Martin Elias DO Work Phone: [facility] 05-10-2023 12:10-0400 Body height 185.42 cm Barbara Murphymond Other [employer] Other 05-10-2023 12:10-0400 Body mass index (BMI) [Ratio] 30.26 kg/m2 Barbara Murphymond Other [employer] Other 05-10-2023 12:10-0400 Body temperature 97.8 [degF] Barbara Murphymond Other [employer] Other 05-10-2023 12:10-0400 Body weight 104.06 kg Barbara Murphymond Other [employer] Other 05-10-2023 12:10-0400 Respiratory rate 18 /min Barbara Murphymond Other [employer] Other 05-10-2023 12:10-0400 SaO2% (BldA) [Mass fraction] 97 % Barbara Ellis Other [employer] Other 01-23-2023 11:01-0400 Body height 185.42 cm Nitish Agrawal Work Phone: [facility] [address] DO Work Phone: 01-23-2023 11:01-0400 Body mass index (BMI) [Ratio] 30.08 kg/m2 Nitish Agrawal Work Phone: [facility] 250 DO Work Phone: 01-23-2023 11:01-0400 Body surface area Derived from formula 2.28 m2 Nitish Agrawal Work Phone: [facility] 250 DO Work Phone: 01-23-2023 11:01-0400 Body weight 103.42 kg Nitish Agrawal Work Phone: [facility] 250 DO Work Phone: 01-23-2023 11:01-0400 Diastolic blood pressure 60 mm[Hg] Nitish Agrawal Work Phone: [facility] 250 DO Work Phone: 01-23-2023 11:01-0400 Heart rate 60 /min Nitish Agrawal Work Phone: [facility] 250 DO Work Phone: 01-23-2023 11:01-0400 Systolic blood pressure 108 mm[Hg] Nitish Agrawal Work Phone: [facility] 250 DO Work Phone: 05-01-2022 09:28-0400 Body height 185.42 cm Nitish Agrawal Work Phone: [facility] [address] DO Work Phone: 05-01-2022 09:28-0400 Body mass index (BMI) [Ratio] 29.42 kg/m2 Nitish Agrawal Work Phone: [facility] 250 DO Work Phone: 05-01-2022 09:28-0400 Body surface area Derived from formula 2.25 m2 Nitish Agrawal Work Phone: [facility] 250 DO Work Phone: 05-01-2022 09:28-0400 Body weight 101.15 kg Nitish Agrawal Work Phone: [facility] 250 DO Work Phone: 05-01-2022 09:28-0400 Diastolic blood pressure 50 mm[Hg] Nitish Agrawal Work Phone: [facility] 250 DO Work Phone: 05-01-2022 09:28-0400 Heart rate 80 /min Nitish Agrawal Work Phone: [facility] 250 DO Work Phone: 05-01-2022 09:28-0400 Systolic blood pressure 80 mm[Hg] Nitish Agrawal Work Phone: [facility] 250 DO Work Phone: 03-01-2022 07:30-0400 40 1 Nitish Agrawal Work Phone: [facility] 600 DO Work Phone: Comment on above: [id number] 11-22-2021 10:31-0500 Body height 182.88 cm Nitish Agrawal Work Phone: [facility] 250 DO Work Phone: 11-22-2021 10:31-0500 Body mass index (BMI) [Ratio] 30.38 kg/m2 Nitish Agrawal Work Phone: [facility] 250 DO Work Phone: 11-22-2021 10:31-0500 Body surface area Derived from formula 2.24 m2 Nitish Agrawal Work Phone: [facility] 250 DO Work Phone: 11-22-2021 10:31-0500 Body weight 101.61 kg Nitish Agrawal Work Phone: [facility] 250 DO Work Phone: 11-22-2021 10:31-0500 Diastolic blood pressure 72 mm[Hg] Nitish Agrawal Work Phone: -[facility] 250 DO Work Phone: 11-22-2021 10:31-0500 Heart rate 66 /min Nitish Agrawal Work Phone: [facility] 250 DO Work Phone: 11-22-2021 10:31-0500 Systolic blood pressure 124 mm[Hg] Nitish Agrawal Work Phone: [facility] 250 DO Work Phone: 10-10-2021 10:00-0500 Body height 185.42 cm Jaelyn Espinal Other [employer] Other 10-10-2021 10:00-0500 Body temperature 97.5 [degF] Jaelyn Espinal Other [employer] Other 10-10-2021 10:00-0500 SaO2% (BldA) [Mass fraction] 99 % Jaelyn Espinal Other [employer] Other 09-27-2021 09:48-0500 Body height 182.88 cm Nitish Agrawal Work Phone: [facility] 250 DO Work Phone: 09-27-2021 09:48-0500 Body mass index (BMI) [Ratio] 30.65 kg/m2 Nitish Agrawal Work Phone: [facility] 250 DO Work Phone: 09-27-2021 09:48-0500 Body surface area Derived from formula 2.24 m2 Nitish Agrawal Work Phone: [facility] 250 DO Work Phone: 09-27-2021 09:48-0500 Body weight 102.51 kg Nitish Abel Tanja Work Phone: [facility] 250 DO Work Phone: 09-27-2021 09:48-0500 Diastolic blood pressure 59 mm[Hg] Nitish Agrawal Work Phone: [facility] 250 DO Work Phone: 09-27-2021 09:48-0500 Heart rate 73 /min Nitish Agrawal Work Phone: [facility] 250 DO Work Phone: 09-27-2021 09:48-0500 Systolic blood pressure 129 mm[Hg] Nitish Agrawal Work Phone: [facility] 250 DO Work Phone: 09-27-2021 09:48-0500 46 1 Nitish Agrawal Work Phone: [facility] [address] [place] Work Phone: Comment on above: [id number] Encounters Encounter Date Encounter Type Care Provider Facility Start: 05-24-2025 End: 05-25-2025 Angelito HARRIS Work Phone: [facility] 230 Comment on above: Anxiety Start: 05-20-2025 End: 05-20-2025 Clinisync Result Encounter Generic External Data Provider [facility] External Department Unsolicited Start: 05-20-2025 End: 05-20-2025 Clinisync Result Encounter Generic External Data Provider [facility] External Department Unsolicited Start: 05-19-2025 End: 05-19-2025 ambulatory Nisha Núñez [facility] Work Phone: Start: 05-19-2025 End: 05-19-2025 Departed Referred Nisha Farrar DPJudie MS -[facility] Start: 05-18-2025 End: 05-19-2025 Clinisync Result Encounter Generic External Data Provider [facility] External Department Unsolicited Start: 05-18-2025 End: 05-19-2025 Clinisync Result Encounter Generic External Data Provider [facility] External Department Unsolicited Start: 05-15-2025 End: 05-19-2025 Clinisync Result Encounter Generic External Data Provider [facility] External Department Unsolicited Start: 05-15-2025 End: 05-19-2025 Clinisync Result Encounter Generic External Data Provider [...] by physician Svetlana Aponte Admin Room 1 [facility] Comment on above: Arteriosclerotic car diovascular disease (ASCVD); History of coronary artery bypass graft; Status post angioplasty; Angina pectoris; Palpitations; Tachycardia Start: 02-23-2025 End: 02-23-2025 ambulatory [facility] Start: 01-30-2025 End: 01-30-2025 ambulatory [facility] Ambulatory Start: 01-29-2025 End: 01-29-2025 Bamboo flowsheet Latha HARRIS Work Phone: [facility] Start: 01-29-2025 End: 01-29-2025 Bamboo flowsheet Latha Caicedo PA Work Phone: [facility] Start: 01-29-2025 End: 01-29-2025 Office outpatient visit 15 minutes Latha Caicedo PA Work Phone: [facility] 230 Comment on above: Anxiety (Primary Dx) Start: 01-29-2025 End: 01-29-2025 ambulatory LATHA CAICEDO Not Available Start: 01-28-2025 End: 01-28-2025 Clinisync Result Encounter Generic External Data Provider [facility] External Department Unsolicited Start: 01-28-2025 End: 01-28-2025 Clinisync Result Encounter Generic External Data Provider [facility] External Department Unsolicited Start: 01-28-2025 End: 01-28-2025 Office outpatient visit 40 minutes [facility] DO Work Phone: [facility] Comment on above: Arteriosclerotic car [...] Start: 01-28-2025 End: 01-28-2025 ambulatory [facility] Ambulatory Start: 12-04-2024 End: 12-04-2024 Bamboo flowsheet Nitish Agrawal DO Work Phone: [facility] Start: 12-04-2024 End: 12-04-2024 Bamboo flowsheet Nitish Agrawal DO Work Phone: [facility] 230 Start: 12-04-2024 End: 12-04-2024 Assay of hemosiderin, quant Joyce Loyd NP Work Phone: [facility] Start: 12-04-2024 End: 12-04-2024 Patient encounter procedure Joyce L Luby GUEST HISTORY CLERK Work Phone: [facility] 777 Comment on above: Routine general medi jacki [...] 25 minutes Nitish Agrawal DO Work Phone: [facility] 285 Comment on above: Hypothyroidism (acqu ired) (CMS/HCC) (Primary Dx) Start: 12-04-2024 End: 12-04-2024 ambulatory JOYCE LOYD Not Available Start: 12-01-2024 End: 12-01-2024 Office outpatient visit 25 minutes Lashaun Bradley DO Work Phone: [facility] 230 Comment on above: Type 2 diabetes lisandro itus with other circulatory complications (CMS/HCC) (Primary Dx); Type 2 diabetes mellitus with stage 3a chronic kidney disease, without long-term current use of insulin (HCC) (CMS/HCC); Preventative health care; Screening for prostate cancer Start: 12-01-2024 End: 12-01-2024 Patient encounter status Lashaun M Gricelda DO Work Phone: [facility] Start: 12-01-2024 End: 12-01-2024 ambulatory LASHAUN BRADLEY Not Available Start: 09-01-2024 End: 09-01-2024 Office outpatient visit 25 minutes Lashaun Bradley DO Work Phone: [facility] 254 Comment on above: Type 2 diabetes lisandro itus with other circulatory complications (CMS/HCC) Start: 09-01-2024 End: 09-01-2024 ambulatory LASHAUN BRADLEY Not Available Start: 08-29-2024 End: 08-29-2024 Telephone encounter Lashaun Bradley DO Work Phone: [facility] 230 Start: 06-27-2024 End: 06-27-2024 Jaimeboo flowskavin Chowdhury PA Work Phone: [facility] Start: 06-27-2024 End: 06-27-2024 Bamboo flowsheet [facility] Work Phone: [facility] Start: 06-27-2024 End: 06-27-2024 Office outpatient new 45 minutes [facility] Work Phone: [facility] Comment on above: Other seborrheic matthew matitis (Primary Dx); Acrochordon; Other specified erythematous conditions; Inflamed seborrheic keratosis Start: 06-27-2024 End: 06-27-2024 ambulatory BARI CHOWDHURY Not Available Start: 06-16-2024 End: 06-16-2024 ambulatory NITISH AGRAWAL Not Available Start: 06-16-2024 End: 06-16-2024 Office outpatient visit 25 minutes Nitish Agrawal DO Work Phone: [facility] 230 Comment on above: Hypothyroidism [...] 25 minutes Martin Elias DO Work Phone: [facility] Comment on above: Arteriosclerotic car diovascular disease (ASCVD); History of coronary artery bypass graft; Multiple vessel coronary artery disease; Status post angioplasty; Hypertension, unspecified type; Mixed hyperlipidemia; Other specified diabetes mellitus with other specified complication, with long-term current use of insulin ([facility]); BMI 29.0-29.9,adult; Never smoked tobacco Start: 05-10-2023 End: 05-10-2023 ambulatory Barbara Ellis Other [employer] Other Start: 05-10-2023 Office outpatient vi sit 15 minutes Barbara Ellis [facility] Start: 03-19-2023 End: 03-20-[address] NITISH AGRAWAL Facility:H1 Start: 03-05-2023 Rx Renewal Nitish Agrawal Work Phone: [facility] 250 DO Work Phone: Start: 03-05-2023 End: 03-06-[address] NITISH AGRAWAL Facility:[facility]1 Start: 02-13-2023 End: 02-14-[address] NITISH AGRAWAL Facility:[facility]1 Start: 01-23-2023 Office outpatient vi sit 15 minutes Nitish Agrawal Work Phone: [facility] 250 DO Work Phone: Start: 01-23-[address] Nitish Agrawal Facility:[id number] Start: 11-28-2022 End: 11-29-[address] NITISH AGRAWAL Facility:H1 Start: 11-13-2022 End: 11-14-2022 ambulatory NISHA FARRAR Facility:H1 Start: 10-24-2022 End: 10-25-2022 ambulatory NISHA FARRAR Facility:H1 Start: 07-18-2022 End: 07-19-2022 ambulatory NISHA FARRAR Facility:H1 Start: 07-03-2022 End: 07-04-2022 ambulatory NISHA FARRAR Facility:H1 Start: 06-20-2022 End: 06-21-2022 ambulatory NISHA FARRAR Facility:H1 Start: 06-13-2022 Encounter for preprocedural laboratory examination NISHA FARRAR [facility] Start: 06-12-2022 End: 06-12-2022 ambulatory NISHA FARRAR Facility:H1 Start: 06-09-2022 End: 06-10-2022 ambulatory NISHA FARRAR Facility:H1 Start: 06-09-2022 End: 06-10-2022 Encounter for preprocedural laboratory examination NISHA FARRAR Facility:H1 Start: 06-07-2022 End: 06-08-2022 ambulatory NISHA FARRAR Facility:H1 Start: 06-06-2022 End: 06-07-2022 ambulatory NISHA FARRAR Facility:H1 Start: 05-30-2022 End: 05-31-2022 ambulatory INSHA FARRAR Facility:H1 Start: 05-02-2022 End: 05-03-2022 ambulatory NISHA FARRAR Facility:H1 Start: 05-01-2022 Office outpatient vi sit 25 minutes Nitish Agrawal Work Phone: [facility] 250 DO Work Phone: Start: 05-01-[address] Helga Flores Facility:[id number] Start: 04-18-2022 End: 04-19-2022 ambulatory NISHA FARRAR Facility:H1 Start: 04-14-2022 End: 04-15-2022 ambulatory NISHA FARRAR Facility:H1 Start: 03-30-2022 End: 03-31-[address] NITISH AGRAWAL Facility:H1 Start: 03-22-2022 End: 03-24-2022 Evaluation and management of inpatient SHAIKH Magui GOMEZ Facility:H1 Start: 03-22-2022 End: 03-23-[address] NITISH AGRAWAL Facility:H1 Start: 03-14-[address] Nitish Agrawal Facility:[id number] Start: 03-14-2022 Patient encounter procedure Nitish Agrawal Work Phone: [facility] 250 DO Work Phone: Start: 03-14-2022 [facility] Provider: Margaux Castillo, Status: Pen, Time: 12:00 PM Nitish Agrawal Work Phone: [facility] 250 DO Work Phone: Start: 03-13-2022 Chart Update Nitish Agrawal Work Phone: [facility] 250 DO Work Phone: Start: 03-10-2022 Chart Update Nitish Agrawal Work Phone: [facility] DO Work Phone: Start: 12-14-2021 Rx Renewal Nitish Agrawal Work Phone: [facility] 250 DO Work Phone: Start: 11-22-2021 Office outpatient vi sit 25 minutes Nitish Agrawal Work Phone: [facility] 250 DO Work Phone: Start: 11-09-2021 SURGNON, Provider: Martin Elias, Status: Pen, Time: 1:00 PM Nitish Agrawal Work Phone: [facility] 250 DO Work Phone: Start: 11-08-2021 Chart Update Nitish Agrawal Work Phone: [facility] 250 DO Work Phone: Start: 10-18-2021 Telephone encounter Nitish luz Work Phone: [facility] 600 DO Work Phone: Start: 10-14-2021 Chart Update Nitish Agrawal Work Phone: [facility] 600 DO Work Phone: Start: 10-12-2021 Patient encounter procedure Nitish Agrawal Work Phone: [facility] [address] [place] Work Phone: Start: 10-10-2021 End: 10-10-2021 ambulatory Jaelyn Espinal Other [employer] Other Start: 10-10-2021 Office outpatient vi sit 15 minutes Jaelyn Espinal [facility] [place] Start: 09-28-2021 AUDIT Nitish Agrawal Work Phone: -[facility] 250[address] [place] Work Phone: Start: 09-27-2021 Office outpatient vi sit 25 minutes Nitish Agrawal Work Phone: [facility] 250 DO Work Phone: Start: 04-11-2017 End: 04-12-2017 Ambulatory [id number] MAILE AGRAWAL [place] Procedures Date Procedure Procedure Detail Performing Clinician Start: 05-20-2025 XR FOOT LT MIN 3V Gener ic External Data Provider Start: 05-18-2025 SEGMENTAL BLOOD PRESSURE Generic External Data Provider Start: 05-15-2025 XR CHEST 2V Generic Ex ternal Data Provider Start: 05-15-2025 ECG 12-LEAD Generic Ex ternal Data Provider Start: 04-22-2025 [...] Provider Start: 12-01-2024 Hemoglobin glycosylated a1c Lashaun Dimas Ronibrandan DO Work Phone: Start: 12-01-2024 Lipid 1996 panel - S mariely or Plasma Martin Cobiandon DO Work Phone: Start: 12-01-2024 Thyrotropin [Units/v olume] in Serum or Plasma Martin Cobiandon DO Work Phone: Start: 09-01-2024 Hemoglobin glycosylated a1c Lashaun Bradley DO Work Phone: Start: 06-27-2024 CRYOTHERAPY SKIN LESION Bari Mcleancase PA Work Phone: Start: 06-18-2024 Carcinoembryonic ant igen cea Nitish Agrawal DO Work Phone: Start: 10-27-2023 History of coronary artery bypass grafting History of coronary artery bypass graft Martin Elias DO Work Phone: Start: 03-23-2022 Detachment at Right 2nd Toe, Complete, Open Approach NISHA LÁZAROMADY Arthroplasty of knee Nitish Agrawal Work Phone: [...] 12/07/2025 10:00 AM EST Office Visit [facility] [address] [place] [address] Joyce Loyd NP [address] [place] [address] [facility] 230 Start: 12-04-2025 Medicare Annual Wellness (AWV) Medicare Annual Wellness (AWV) [facility] Start: 12-01-2025 Lipid panel Lipid Panel [facility] Start: 12-01-2025 Thyroid stimulating hormone measurement TSH Level [facility] Start: 12-01-2025 Urine screening for protein Diabetes: Urine Protein Screening [facility] Start: 09-21-2025 End: 09-21-2025 Patient encounter procedure 09/21/2025 8:30 AM EST Office Visit [facility] [address] [place] [phone] Lashaun Bradley DO [address] [place] [address] [facility] 230 Start: 08-04-2025 End: 08-04-2025 Patient encounter procedure 08/04/2025 11:10 AM EDT Office Visit [facility] [address] [place] [address] Martin Elias, [address] [place] [address] [facility] Start: 07-06-2025 Influenza vaccination Influenza Vaccine (#1) [facility] Start: 06-27-2025 Hemoglobin A1c measurement Diabetes: Hemoglobin A1C [facility] Start: 03-27-2025 Screening for malignant neoplasm of colon [facility] Start: 03-27-2025 End: 03-27-2025 Patient encounter procedure 03/27/2025 8:45 AM EDT Office Visit [facility] [address] [place] [phone] Lashaun Bradley DO [address] [place] [address] [facility] 230 Start: 03-12-2025 End: 03-12-2025 Patient encounter procedure 03/12/2025 8:00 AM EDT Office Visit [facility] [address] [place] [address] Latha Caicedo, STEVEN [address] [place] [address] [facility] 230 Start: 03-01-2025 Hemoglobin A1c measurement Diabetes: Hemoglobin A1C [facility] Start: 02-01-2025 COVID-19 Vaccine ( season) COVID-19 Vaccine ( season) [facility] Start: 01-29-2025 End: 01-29-2025 Patient encounter procedure 01/29/2025 8:40 AM EDT Office Visit [facility] [address] [place] [phone] Latha Caicedo PA [address] [place] [address] Arrived [facility] 230 Comment on above: Arrived Start: 01-28-2025 End: 01-28-2026 Basic metabolic 2000 panel - Serum or Plasma Basic Metabolic Panel Lab Routine Arteriosclerotic cardiovascular disease (ASCVD) Expected: 01/28/2025 (Approximate), Expires: 01/28/2026 [facility] Work Phone: Comment on above: Expected: 01/28/2025 (Approximate), Expi res: 01/28/2026 Start: 01-28-2025 End: 01-28-2026 C reactive protein [Mass/volume] in Serum or Plasma by High sensitivity method C-Reactive Protein, High Sensitivity Lab Routine Arteriosclerotic cardiovascular disease (ASCVD) Expected: 01/28/2025 (Approximate), Expires: 01/28/2026 [facility] Work Phone: Comment on above: Expected: 01/28/2025 (Approximate), Expi res: 01/28/2026 Start: 01-28-2025 End: 01-28-2026 Holter monitor study Holter Or Event Athletic [facility] Cardiac Services Routine Angina pectoris Palpitations Tachycardia Expected: 01/28/2025, Expires: 01/28/2026 [facility] Service Area Work Phone: Comment on above: Expected: 01/28/2025, Expires: Start: 01-28-2025 End: 01-28-2026 Natriuretic peptide B [Mass/volume] in Blood B-Type Natriuretic Peptide Lab Routine Arteriosclerotic cardiovascular disease (ASCVD) ACC/AHA stage C congestive heart failure due to ischemic cardiomyopathy Expected: 01/28/2025 (Approximate), Expires: 01/28/2026 [facility] Work Phone: Comment on above: Expected: 01/28/2025 (Approximate), Expi res: 01/28/2026 Start: 01-28-2025 End: 01-28-2027 NM Heart Perfusion W stress and W radionuclide IV Nuclear Stress Test Cardiac Nuclear Medicine Routine 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 Status post angioplasty Angina pectoris Palpitations Tachycardia Expected: 01/28/2025 (Approximate), Expires: 01/28/2027 [facility] Work Phone: Comment on above: Expected: 01/28/2025 (Approximate), Expi res: 01/28/2027 Start: 01-28-2025 End: 01-28-2025 Patient encounter procedure 01/28/2025 9:50 AM EDT Office Visit [facility] [address] [place] [phone] Martin Elias, [address] [place] [address] [facility] Start: 12-04-2024 End: 12-04-2024 Patient encounter procedure 12/04/2024 11:20 AM EST Office Visit [facility] [address] [place] [phone] Nitish Agrawal, [address] [place], [place] [id number] Arrived [facility] Comment on above: Arrived Start: 12-02-2024 Hemoglobin A1c measurement Diabetes: Hemoglobin A1C [facility] Start: 12-01-2024 End: 12-01-2025 Prostate specific Ag [Mass/volume] in Serum or Plasma PSA Lab Routine Screening for prostate cancer Expected: 12/01/2024 (Approximate), Expires: 12/01/2025 [facility] Healthcare Comment on above: Expected: 12/01/2024 (Approximate), Expi res: 12/01/2025 Start: 12-01-2024 End: 12-01-2024 Patient encounter procedure 12/01/2024 9:15 AM EST Office Visit [facility] [address] [place] [phone] Lashaun Bradley, DO [address] [place] [address] [facility] 230 Start: 09-02-2024 Hemoglobin A1c measurement Diabetes: Hemoglobin A1C [facility] Start: 09-01-2024 End: 09-01-2024 Patient encounter procedure 09/01/2024 9:15 AM EDT Office Visit [facility] [address] [place] [phone] Lashaun Bradley, DO [address] [place] [address] [facility] 230 Start: 08-09-2024 Urine screening for protein Diabetes: Urine Protein Screening [facility] Start: 07-06-2024 Influenza vaccination Influenza Vaccine (#1[facility] [facility] Start: 06-27-2024 Glaucoma screening Diabetes: Retinopathy Screening [facility] Start: 06-27-2024 End: 06-27-2024 Patient encounter procedure 06/27/2024 8:50 AM EDT Office Visit [facility] [address] [place] [address] Bari Chowdhury PA [address] [place] [id number] Arrived [facility] Comment on above: Arrived Start: 01-29-2024 End: 01-28-2025 Alanine aminotransferase [Enzymatic activity/volume] in Serum or Plasma by With P-5'-P Alanine Aminotransferase Lab Routine 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 Multiple vessel coronary artery disease Hypertension, unspecified type Mixed hyperlipidemia Expected: 01/29/2024 (Approximate), Expires: 01/28/2025 [facility] Work Phone: Comment on above: Expected: 01/29/2024 (Approximate), Expi res: 01/28/2025 Start: 01-29-2024 End: 01-28-2025 Aspartate aminotransferase [Enzymatic activity/volume] in Serum or Plasma by With P-5'-P Aspartate Aminotransferase Lab Routine 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 Multiple vessel coronary artery disease Hypertension, unspecified type Mixed hyperlipidemia Expected: 01/29/2024 (Approximate), Expires: 01/28/2025 [facility] Work Phone: Comment on above: Expected: 01/29/2024 (Approximate), Expi res: 01/28/2025 Start: 01-29-2024 End: 01-28-2025 C reactive protein [Mass/volume] in Serum or Plasma by High sensitivity method C-Reactive Protein, High Sensitivity Lab Routine 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 Multiple vessel coronary artery disease Hypertension, unspecified type Mixed hyperlipidemia Expected: 01/29/2024 (Approximate), Expires: 01/28/2025 [facility] Work Phone: Comment on above: Expected: 01/29/2024 (Approximate), Expi res: 01/28/2025 Start: 01-29-2024 End: 01-28-2025 Lipid 1996 panel - Serum or Plasma Lipid Panel Lab Routine 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 Multiple vessel coronary artery disease Hypertension, unspecified type Mixed hyperlipidemia Expected: 01/29/2024 (Approximate), Expires: 01/28/2025 [facility] Work Phone: Comment on above: Expected: 01/29/2024 (Approximate), Expi res: 01/28/2025 Start: 01-24-2024 FUV, Provider: Martin Elias, Status: Fidencio, Time: 9:30 AM FUV, Provider: Martin Elias, Status: Pen, Time: 9:30 AM [facility] 250 DO Work Phone: Start: 01-23-2023 Medicare Annual Wellness (AWV) Medicare Annual Wellness (AWV) [facility] Start: 11-16-2022 FUV, Provider: Martin Elias, Status: Fidencio, Time: 10:20 AM FUV, Provider: Martin Elias, Status: Fidencio, Time: 10:20 AM [facility] 250 DO Work Phone: Start: 08-25-2022 Pneumococcal Vaccine: 65+ Years (2 - PCV) Pneumococcal Vaccine: 65+ Years (2 - PCV) [facility] Start: 08-25-2022 Pneumococcal Vaccine: 65+ Years (2 of 2 - PCV) Pneumococcal Vaccine: 65+ Years (2 of 2 - PCV) [facility] Start: 05-29-2022 FUV, Provider: Helga Flores, Status: Pen, Time: 10:15 AM FUV, Provider: Helga Flores, Status: Pen, Time: 10:[address] [facility] 250 DO Work Phone: Start: 05-01-2022 FUV, Provider: Helga Flores, Status: Pen, Time: 9:30 AM FUV, Provider: Helga Flores, Status: Pen, Time: 9:30 AM [facility] Work Phone: Start: 03-21-2022 FUV, Provider: Helga Flores, Status: Pen, Time: 9:15 AM FUV, Provider: Helga Flores, Status: Pen, Time: 9:[address] [facility] 250 DO Work Phone: Start: 03-14-2022 SURGNON, Provider: Margaux Castillo, Status: Pen, Time: 12:00 PM SURGNONUH, Provider: Margaux Castillo, Status: Pen, Time: 12:00 PM [facility] Work Phone: Start: 11-09-2021 SURGNONUH, Provider: Martin Elias, Status: Pen, Time: 1:00 PM SURGNONUH, Provider: Martin Elias, Status: Pen, Time: 1:00 [facility] Work Phone: Start: 10-12-2021 STRESS NUC, Provider: [place] MARRI NUCLEAR 01,[id number], Status: Pen, Time: 7:30 AM STRESS NUC, Provider: [place] HHVI NUCLEAR 01,[id number], Status: Pen, Time: 7:30 AM -[facility] Clancy DO Work Phone: Start: 02-07-2006 Zoster Vaccines (1 of 2) Zoster Vaccines (1 of 2) [facility] Start: 02-07-1978 DTaP/Tdap/Td Vaccines (1 - Tdap) DTaP/Tdap/Td Vaccines (1 - Tdap) [facility] Start: 02-07-1975 Urine screening for protein Diabetes: Urine Protein Screening [facility] Start: 02-07-1974 Hepatitis C screening Hepatitis C Screening [facility] Start: 02-07-1966 Diabetic foot examination Diabetes: Foot Exam [facility] Start: 02-07-1966 Glaucoma screening Diabetes: Retinopathy Screening [facility] Start: 1956 Creatinine measurement Creatinine Level [facility] Start: 1956 Echocardiography Echocardiogram [facility] Start: 1956 Hemoglobin A1c measurement Diabetes: Hemoglobin A1C [facility] Start: 1956 Lipid panel Lipid Panel [facility] Start: 1956 Medicare Annual Wellness Visit Medicare Annual Wellness Visit (AWV) [facility] Start: 1956 Potassium measurement Potassium Level [facility] Start: 1956 Screening for malignant neoplasm of colon [facility] Start: 1956 Thyroid stimulating hormone measurement TSH Level [facility] CBC W Auto Different ial panel [...] Pneumococcal Conjuga te PCV 20 Joyce Loyd GUEST HISTORY CLERK Work Phone: [facility] 08-04-2024 influenza, high dose seasonal, preservative-free Lashaun Bradley DO Work Phone: [facility] 08-04-2024 influenza virus vaccine, unspecified formulation Generic Provider [facility] 08-21-2023 Influenza, Seasonal, Quadrivalent, Adjuvanted [facility] Work Phone: [facility] 08-21-2023 influenza virus vaccine, unspecified formulation [facility] Work Phone: [facility] 08-09-2023 RSV, recombinant, protein subunit RSVpreF, adjuvant reconstitu, 120mcg/0.5mL, PF (Arexvy) [facility] Work Phone: [facility] 08-02-2022 Fluzone High-Dose Quadrivalent 0.7 ML Intramuscular Suspension Prefilled Syringe Nitish Agrawal Work Phone: [facility] 250 DO Work Phone: 08-02-2022 Pfizer COVID-19 Vac Bivalent 30 MCG/0.3ML Intramuscular Suspension Nitish Agrawal Work Phone: [facility] 09-02-2021 [employer] COVID-19 Vacc 30 MCG/0.3ML Intramuscular Suspension Nitish Agrawal Work Phone: [facility] 08-25-2021 Fluad Quadrivalent 0 .5 ML Intramuscular Prefilled Syringe Nitish Agrawal Work Phone: [facility] 250 DO Work Phone: 08-25-2021 pneumococcal polysaccharide vaccine, 23 valent Nitish Agrawal Work Phone: [facility] 02-06-2021 Pfizer-BioNTech COVID-19 Vacc 30 MCG/0.3ML Intramuscular Suspension Nitish Agrawal Work Phone: [facility] 01-16-2021 Pfizer-BioNTech COVID-19 Vacc 30 MCG/0.3ML Intramuscular Suspension Nitish Agrawal Work Phone: [facility] 01-15-2021 COVID-19 mRNA, Comirnaty (Pfizer) Nisha Farrar DPM Work Phone: [facility] 11-22-2020 zoster vaccine recombinant Nitish Agrawal Work Phone: [facility] 250 DO Work Phone: 11-22-2020 zoster vaccine, unspecified formulation Martin Elias DO Work Phone: [facility] Work Phone: 09-09-2020 influenza, high dose seasonal, preservative-free Nitish Agrawal Work Phone: [facility] 250 DO Work Phone: 09-05-2020 influenza virus vaccine, unspecified formulation Nitish Agrawal Work Phone: [facility] 250 DO Work Phone: 09-05-2020 influenza, seasonal, injectable Bari Luciana PA Work Phone: [facility] 08-29-2020 influenza, injectabl e, quadrivalent, preservative free Nitish Agrawal Work Phone: [facility] 250 DO Work Phone: 08-29-2020 zoster vaccine recombinant Nitish Agrawal Work Phone: [facility] 250 DO Work Phone: 08-29-2020 zoster vaccine, unspecified formulation Martni Elias DO Work Phone: [facility] Work Phone: 09-07-2019 influenza virus vaccine, unspecified formulation Nitish Agrawal Work Phone: [facility] 250 DO Work Phone: 08-26-2019 Influenza, injectabl e, Madin [place] Canine Kidney, preservative free, quadrivalent Nitish Agrawal Work Phone: [facility] 250 DO Work Phone: 11-05-2017 pneumococcal polysaccharide vaccine, 23 valent Nitish Agrawal Work Phone: [facility] 09-18-2017 influenza, injectabl e, quadrivalent, preservative free Nitish Agrawal Work Phone: [facility] 250 DO Work Phone: 08-06-2017 influenza, high dose seasonal, preservative-free Nitish Agrawal Work Phone: [facility] 250 DO Work Phone: 08-05-2016 influenza virus vaccine, unspecified formulation Nitish Agrawal Work Phone: [facility] 250 DO Work Phone: 07-24-2011 influenza, seasonal, injectable, preservative free [facility]itish [facility]rawal [facility] Work Phone: 11-05-2010 influenza virus vaccine, unspecified formulation Nitish Agrawal Work Phone: [facility] 250 DO Work Phone: 08-05-2010 pneumococcal polysaccharide vaccine, 23 valent Nitish Agrawal Work Phone: [facility] 250 DO Work Phone: 08-13-2008 influenza, seasonal, injectable, preservative free Nitish Agrawal Work Phone: [facility] 250 DO Work Phone: influenza virus vaccine, unspecified formulation Nitish Agrawal Work Phone: [facility] Work Phone: Comment on above: Sep 2010 Payers Date Payer Category Payer Self-pay 2021 Medicare [id number] 2021 Private Health Insurance [employer] [id number] 2021 Unknown 2017 Unknown [id number] 1959 Medicare [id number] 1959 Unknown [id number] 2.16.840.1.956467.19 1956 Unknown [id number] 2.16.840.1.981366.3.579.2. 356 1956 Unknown [id number] 2.16.840.1.207102.3.579.2. 356 1956 Unknown [id number] 2.16.840.1.694459.3.579.2. 356 1956 Unknown [id number] 2.16.840.1.892471.3.579.2. 593 1956 Unknown [id number] 2.16.840.1.872547.3.579.2. 593 1956 Unknown [id number] 2.16.840.1.386381.3.579.2. 593 1956 Unknown [id number] 2.16.840.1.056562.3.579.2. 593 1956 Unknown [id number] 2.16.840.1.573626.3.579.2. 593 1956 Unknown [id number] 2.16.840.1.353632.3.579.2. 593 1956 Unknown [id number] 2.16.840.1.004052.3.579.2. 593 1956 Unknown [id number] 2.16.840.1.989335.3.579.2. 593 1956 Unknown [id number] 2.16.840.1.719844.3.579.2. 593 1956 Unknown [id number] 2.16.840.1.817450.3.579.2. 593 1956 Unknown [id number] 2.16840.1.318938.3.579.2. 593 1956 Unknown [id number] 2.16.840.1.158806.3.579.2. 593 1956 Unknown [id number] 2.16.840.1.208572.3.579.2. 593 1956 Unknown [id number] 2.16.840.1.155209.3.579.2. 593 1956 Unknown [id number] 2.840.1.454508.3.579.2. 593 1956 Unknown [id number] 2.16.840.1.502399.3.579.2. 593 1956 Unknown [id number] 2.16.840.1.979886.3.579.2. 593 1956 Unknown [id number] 2.16.840.1.309327.3.579.2. 593 1956 Unknown [id number] 2.16.840.1.685650.3.579.2. 593 1956 Unknown [id number] 2.16.840.1.142349.3.579.2. 593 1956 Unknown [id number] 2.16.840.1.200800.3.579.2. 6 1956 Unknown [id number] 2.16.840.1.731349.3.579.2. 1245 1956 Unknown [id number] 2.16.840.1.668571.3.579.2. 1245 1956 Unknown [id number] 2.16.840.1.720125.3.579.2. 1245 1956 Unknown [id number] 2.840.1.151199.3.579.2. 1245 1956 Unknown [id number] 2.840.1.795378.3.579.2. 1258 1956 Unknown [id number] 2.840.1.195244.3.579.2. 1258 1956 Unknown [id number] 2.840.1.311733.3.579.2. 1258 1956 Unknown [id number] 2.840.1.923081.3.579.2. 1259 1956 Unknown [id number] 2.840.1.872776.3.579.2. 125 1956 Unknown [id number] 2.840.1.796625.3.579.2. 1258 1956 Unknown [id number] 2..840.1.350814.3.579.2. 1258 1956 Unknown [id number] 2.16.840.1.406807.3.579.2. 125 1956 Unknown [id number] 2.16.840.1.251606.3.579.2. 125 1956 Unknown [id number] 2.16.840.1.664221.3.579.2. 1259 1956 Unknown [id number] 2.16.840.1.237692.3.579.2. 1244 1956 Unknown [id number] 2.16.840.1.599581.3.579.2. 1244 Unknown [id number] 2.16.840.1.195454.3.579.2. 531 Social History Date Type Detail Facility Start: 01-29-2024 End: 03-27-2025 Caffeine use Caffeine use -[facility] 250 DO Work Phone: Comment on above: occassional; Start: 01-29-2024 End: 03-27-2025 Sex Assigned At [facility]OST[facility] Other Start: 01-29-2024 End: 06-16-2024 Tobacco smoking status NHIS Never smoked tobacco [facility] Start: 01-29-2024 End: 06-16-2024 Tobacco use and exposure Smokeless tobacco non-user [facility] Work Phone: Start: 01-29-2024 End: 03-27-2025 Alcohol intake Lifetime non-drinker (finding) [facility] Work Phone: Start: 1955 Sex Assigned At Not on file [facility] Work Phone: Start: 01-19-2024 End: 01-30-2025 Exposure to SARS-CoV-2 (event) Not sure [facility] How often to you hav e a drink containing alcohol? Never [facility] How many standard drinks containing alcohol do you have on a typical day? Patient does not drink [facility] Start: 1955 Sex assigned at Male [facility] Start: 09-23-2024 Gender identity Identifies as male gender (finding) [facility] Work Phone: Start: 03-10-2022 Tobacco smoking status NHIS Ex-smoker (finding) [facility] Sex Male (finding) [facility] NEGATED: Highlighted rowStart: PAULINO History of tobacco use Passive smoker [facility] Medical Equipment Procedure Code Equipment Code Equipment Origin al Text Equipment Identifier Dates Fsbs daily [id number] Start: 03-03-2024 Fsbs daily [id number] Start: 03-03-2024 Drug-eluting coronary artery stent, [id number] lymer-coated ()[id number] FDA Start: 11-09-2021 Drug-eluting coronary artery stent, [id number] lymer-coated ()[id number] [id number] FDA Start: 11-09-2021 Femoral artery closure plug/patch, synthetic polymer ()[id number] [id number] FDA Start: 11-09-2021 Clinical Notes 10-08-2017 to 01-29-2025 Latha Caicedo, PA - 01/29/2025 8:40 AM Nydia Elias, DO - 01/28/2025 9:50 AM EDTPatient [...] around large groups. Pt was told by Hospice Music Therapist he wants to have a stress test [...] or concerns. documented in this encounter [facility] 01-28-2025 History of Presen t illness Narrative [...] By signing my name below, I, Echo Lancaster LPN attest that this documentation has been [...] discussion and plan. documented in this encounter [facility] Work Phone: 01-28-2025 Instructions Mandi Oakley [...] instructions on exercise. documented in this encounter [facility] Work Phone: 12-04-2024 History of Presen [...] FOR 90 DAYS Blood Glucose Monitoring Suppl (OneTouch Verio Flex System) w/Device kit No dose, [...] (H) 0.70 - 1.30 mg/dL TBH EGFR-AF [place] >60 >=60 mL/min/1.73m 2 TBH EGFR-NON AF [place] 51 (L) >=60 mL/min/1.73m 2 BUN CREATININE [...] this encounter [facility] 12-01-2024 History of Presen t illness Narrative Associated Problem(s): Type 2 diabetes mellitus with other circulatory complications (CMS/[facility]) During the appointment today [...] 2 diabetes mellitus with other circulatory complications ([facility]) Anemia, unspecified Atherosclerotic heart disease of [place] coronary artery without angina pectoris ([facility]/HCC) Gastro-esophageal reflux disease without esophagitis Osteoarthritis of knee, unspecified Stage 3a chronic kidney disease (CKD) (CMS/HCC) Hypertension (CMS/HCC) Hyperlipidemia ([facility]) History of coronary artery bypass graft Type 2 diabetes mellitus with stage 3a chronic kidney disease, without long-term current use of insulin (HCC) ([facility]) Social History Tobacco Use [...] FOR 90 DAYS BLOOD GLUCOSE MONITORING SUPPL (Shopo VERIO FLEX SYSTEM) W/DEVICE KIT CARVEDILOL (COREG) [...] by mouth in the morning. GLUCOSE BLOOD (FruitfulllUCH VERIO) TEST STRIP Fsbs daily ISOSORBIDE MONONITRATE [...] (five) minutes if needed for chest pain. Shopo DELICA LANCETS 33G [facility] Fsbs daily SEMAGLUTIDE, 2 MG/DOSE, (OZEMPIC, 2 [...] (CMS/HCC) Anemia, unspecified Atherosclerotic heart disease of [place] coronary artery without angina pectoris (CMS/HCC) Gastro-esophageal reflux disease without esophagitis Osteoarthritis of knee, unspecified Stage 3a chronic kidney disease (CKD) ([facility]) Hypertension ([facility]) Hyperlipidemia ([facility]) History of coronary artery bypass graft Type 2 diabetes mellitus with stage 3a chronic kidney disease, without long-term current use of insulin (HCC) ([facility]) Social History Tobacco Use [...] 2 diabetes mellitus with other circulatory complications ([facility]) During the appointment today [...] FOR 90 DAYS BLOOD GLUCOSE MONITORING SUPPL (FruitfulllUCH VERIO FLEX SYSTEM) W/DEVICE KIT CARVEDILOL (COREG) [...] by mouth in the morning. GLUCOSE BLOOD (CADsurfTOUCH VERIO) TEST STRIP Fsbs daily ISOSORBIDE MONONITRATE [...] ONETOUCH DELICA LANCETS 33G MISC Fsbs daily Modified Medications No medications on [...] (2) Chest - Medial (Center), Left Axilla Moyers and brown stuck on verrucous scaly papule [...] limited to risks of scarring, darker or wrapper counter pigmentary changes, recurrence, incomplete removal and infection. [...] FOR 90 DAYS Blood Glucose Monitoring Suppl (OneTouch Verio Flex System) w/Device kit No dose, [...] blood (OneTouch Verio) test strip Fsbs daily isosorbide mononitrate [...] complication, with long-term current use of insulin ([facility]) 8. BMI 29.0-29.9,adult 9. [...] discussion and plan. documented in this encounter [facility] Work Phone: 01-29-2024 Instructions Sheri Newman [...] instructions on exercise. documented in this encounter [facility] Work Phone: 05-10-2023 Evaluation note Encounter [...] the ER for worsening symptoms or concerns. [facility] Other 01-24-2023 NotePROCEDURE: XR FOOT RT MIN [...] authenticated by: HUSAM GAMEZ Date: 2022-11-28 15:28[facility]08-08-2022 NotePROCEDURE: XR FOOT RT MIN 3 [...] by: ROSA MARIA MATOS Date: 2022-06-12 21:05[facility]08-02-2022 NotePROCEDURE: XR FOOT RT MIN 3 [...] authenticated by: HUSAM GAMEZ Date: 2022-06-06 19:33[facility]05-19-2022 NotePROCEDURE: XR FOOT RT MIN 3 [...] Electronically authenticated by: HUSAM GAMEZ Date: 2022-03-23 11:[address] [place], [place] 8112012-06-2021 Evaluation note* Encounter Date Diagnosis Assessment Notes Treatment Notes Treatment Clinical Notes Oct, Sore throat (ICD-10 - J02.9) symptoms appear viral in nature. Reassurance given. . Saltwater gargles may help with pain and disrupts bacteria and viral infections. Continue tylenol/ibu for general discomfort. Encourage fluids. Symptoms should improve within the next 4-7 days. [facility] Other 12-04-2017 History general Narrative - Reported* Type Description Date Medical History Diabetes mellitus Medical History Hyperlipidemia Medical History Hypothyroidism Surgical History CABG 1992 Surgical History cardiac stent 2002 Surgical History right knee arthroplasty 10/08/20 Surgical History left knee arthroplasty 03/2016 Surgical History Foot Surgery Hospitalization History see above surgical histo ry [facility] Other Evaluation note* Diagnosis Arteriosclerotic cardiovascular disease [...] Never smoked tobacco documented in this encounter [facility] Work Phone: Evaluation note* Diagnosis Type [...] circulatory complications (CMS/HCC) documented in this encounter [facility] Healthcare[facility]* Diagnosis Type 2 diabetes [...] with hyperosmolarity without coma, unspecified whether long term care administrator insulin use (CMS/HCC) Type 2 diabetes mellitus [...] circulatory complications (CMS/HCC) documented in this encounter [facility] HealthcareEvaluation note* Diagnosis Other seborrheic dermatitis- Primary Acrochordon Unspecified hypertrophic and atrophic condition of skin Other specified erythematous conditions Inflamed seborrheic keratosis documented in this encounter [facility] HealthcareEvaluation note* Diagnosis Type 2 diabetes mellitus with other circulatory complications (CMS/HCC)- Primary Screening for prostate cancer Special screening for malignant neoplasm of prostate Type 2 diabetes mellitus with stage 3a chronic kidney disease, without long-term current use of insulin (HCC) (CMS/HCC)- Primary Type 2 diabetes mellitus with other circulatory complications (CMS/HCC) Type 2 diabetes mellitus with hyperosmolarity without coma, unspecified whether long term care administrator insulin use (CMS/HCC) Type 2 diabetes mellitus [...] neoplasm of prostate documented in this encounter [facility] HealthcareEvaluation note* Diagnosis Type 2 diabetes mellitus with other circulatory complications (CMS/HCC)- Primary Screening for prostate cancer Special screening for malignant neoplasm of prostate Type 2 diabetes mellitus with stage 3a chronic kidney disease, without long-term current use of insulin (HCC) (CMS/HCC)- Primary Type 2 diabetes mellitus with other circulatory complications (CMS/HCC) Type 2 diabetes mellitus with hyperosmolarity without coma, unspecified whether long term care administrator insulin use (CMS/HCC) Type 2 diabetes mellitus [...] without long-term current use of insulin (HCC) ([facility]/HCC) Hyperlipidemia, unspecified hyperlipidemia type (CMS/HCC) documented in this encounter [facility] HealthcareEvaluation note* Diagnosis Arteriosclerotic cardiovascular disease [...] to ischemic cardiomyopathy documented in this encounter [facility] Work Phone: Evaluation note* Diagnosis Type [...] for malignant neoplasm of prostate Hypothyroidism (acquired) ([facility]/HCC)- Primary Unspecified hypothyroidism [facility] Diagnosis Arteriosclerotic cardiovascular disease (ASCVD) Unspecified cardiovascular disease History of coronary artery bypass graft Postsurgical aortocoronary bypass status Status post angioplasty Postsurgical percutaneous transluminal coronary angioplasty status Angina pectoris Other and unspecified angina pectoris Palpitations Tachycardia Unspecified tachycardia documented in this encounter [facility] Work Phone: Evaluation noteNo assessment information available [facility] Work Phone: Evaluation note* Diagnosis Type 2 diabetes mellitus with other circulatory complications (HCC)- Primary Screening for prostate cancer Special screening for malignant neoplasm of prostate Type 2 diabetes mellitus with stage 3a chronic kidney disease, without long-term current use of insulin (HCC)- Primary Type 2 diabetes mellitus with other circulatory complications (HCC) Type 2 diabetes mellitus with hyperosmolarity without coma, unspecified whether long term care administrator insulin use (HCC) Type 2 diabetes mellitus with stage 3a chronic kidney disease, without long-term current use of insulin (HCC) Type 2 diabetes mellitus with other circulatory complications (HCC) Type 2 diabetes mellitus with other circulatory complications (HCC) Type 2 diabetes mellitus with other circulatory complications (HCC)- Primary Type 2 diabetes mellitus with stage 3a chronic kidney disease, without long-term current use of insulin (HCC) Preventative health care Routine general medical examination at a health care facility Screening for prostate cancer Special screening for malignant neoplasm of prostate Type 2 diabetes mellitus with stage 3a chronic kidney disease, without long-term current use of insulin (HCC) Type 2 diabetes mellitus with other circulatory complications (HCC) Anxiety Anxiety state, unspecified documented in this encounter [facility] N[facility]* Mr. Ford is a 66-year-old male who is seen back today for follow-up on his history of coronary disease. He had bypass surgery that was done remotely back in 1992 at [facility] in [place]. He had a WALL graft to the [...] completed. No change made to medications today. [facility] 250 DO Work Phone: History of Present illness Narrative* Mr. Ford is a 66-year-old male who is seen back today for follow-up on his history of coronary disease. He had remote bypass surgery that was done back in 1992 at [facility].He had a WALL graft to the [...] This will be arranged for him through [facility]. He is to return in 6 months for follow-up. [facility] Red[facility]ter DO Work Phone: History of Present illness Narrative* Mr. Ford is a 67-year-old male who is seen back today for follow-up on his history of coronary disease. He had remote bypass surgery that was done back in 1992 at [facility]. 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 This was redilated and stented. He had a recent episode at cardiac rehab in [place] and because of this was seen in [...] He is to return in 6 months. -[facility] 250 DO Work Phone: History of Present illness Narrative* Joyce Loyd, LAZARO - 12/04/2024 1:00 PM EST Images from [...] 90 tablet 3 Blood Glucose Monitoring Suppl (MomentFeed Verio Flex System) w/Device kit carvedilol (Coreg) [...] by mouth in the morning. glucose blood (WorldMateuch Verio) test strip Fsbs daily 100 strip [...] Do you have a medical power of child day care provider?: Yes Who is your medical power of child day care provider?: alexis Ford Objective : BP 120/78 Pulse [...] conjugate vaccine 20-valent IM Hypertension, unspecified type ([facility]/HCC) Stage 3a chronic kidney disease (CKD) ([facility]) Type 2 diabetes mellitus with stage 3a chronic kidney disease, without long-term current use of insulin (HCC) ([facility]) Hyperlipidemia, unspecified hyperlipidemia type ([facility]) Patient here for annual [...] on December 04, 2024 documented in this encounterNOUniversity of [place] Health CareReason for referral (narrative)* Consultation (Routine) - Authorized Specialty Diagnoses / Procedures Referred By Vaughn t Referred To Contact Cardiology Diagnoses Arteriosclerotic cardiovascular disease (ASCVD) Procedures Follow Up In Cardiology Martin Elias DO [address] [facility] [address], [address] [place] [id number] Martin Elias DO [address] [facility] [address], [address] [place] [address] Referral ID Status Reason Start Date Expiration Date V isits Requested Visits Authorized [id number] Authorized 01/29/2024 01/28/2025 1 1 [facility] Work Phone: Rebcfy for referral (narrative)No reason for referral information [facility]Wooster [facility] Work Phone: Reason for visit Narrative* Cardiac Stress Testing (Routine) - Authorized Specialty Diagnoses / Procedures Referred By Contac t Referred To Contact Radiology Diagnoses 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 Status post angioplasty Angina pectoris Palpitations Tachycardia Procedures Nuclear Stress Test CHG MYOCARDIAL SPECT MULTIPLE STUDIES Martin Elias DO [address] [facility] [address], [address] [address] Phone: tel: fax: Referral ID Status Reason Start Date Expiration Date V isits Requested Visits Authorized [id number] Authorized 01/28/2025 01/28/2026 5 5 [facility] Work Phone: reason for visit Narrative* Cardiac Stress Testing (Routine) - Authorized Specialty Diagnoses / Procedures Referred By Contac t Referred To Contact Radiology Diagnoses 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 Status post angioplasty Angina pectoris Palpitations Tachycardia Procedures Nuclear Stress Test CHG MYOCARDIAL SPECT MULTIPLE STUDIES Martin Elias DO [address] [facility] [address], [address] [address] Phone: tel: fax: Referral ID Status Reason Start Date Expiration Date V isits Requested Visits Authorized [id number] Authorized 01/28/2025 01/28/2026 5 5 [facility] Work Phone: Summary Purpose Family History [...] pertinent family history: Mother, Sister(V49.89, Z78.9) Status:Active Relationship Condition Age at Onset Recorded Date/T connor father Cerebrovascular accident (CVA) Unknown Heart problem Unknown mother History of malignant neoplasm of kidney U nknown brother Congestive heart failure Unknown father Diabetes mellitus Unknown Unknown History of stroke Unknown mother Diabetes mellitus Unknown Malignant neoplasm Unknown Hypertension Unknown Family history of lung cancer Unknown Advance Directives Advance Directive Response Recorded Date/ Time Advance Directives No October 11:21am Chief Complaint JANICE FORD is being seen [...] section and content) DATE CREATED AUTHOR 05/01/2018 [facility] DATE CREATED AUTHOR AUTHOR'S ORGANIZ ATION 01/25/2022 [facility] dical Specialist DATE CREATED AUTHOR AUTHOR'S ORGANIZ ATION 03/03/2022 [facility] DATE CREATED AUTHOR AUTHOR'S ORGANIZ ATION 01/24/2023 [facility] DATE CREATED AUTHOR AUTHOR'S ORGANIZ ATION 02/20/2023 [facility] ical Center DATE CREATED AUTHOR AUTHOR'S ORGANIZ ATION 03/21/2023 [facility] DATE CREATED AUTHOR AUTHOR'S ORGANIZ ATION 03/18/2025 [facility] DATE CREATED AUTHOR AUTHOR'S ORGANIZ ATION 04/02/2025 [facility] dical Specialists EPIC DATE CREATED AUTHOR AUTHOR'S ORGANIZ ATION 05/10/2025 [facility] DATE CREATED AUTHOR AUTHOR'S ORGANIZ ATION 05/24/2025 [facility] ysician Group REASON FOR VISIT (unrecogniz ed section and content) Reason Comments Annual Exam Reason Comments Diabetes Reason Comments Rash Suspicious Skin Lesion Reason Comments Medicare Annual Wellness Visit Subsequen t Reason Comments Annual Exam 1 year, arterioscler otic cardiovascular disease Specialty Diagnoses / Procedures Referred By Vaughn costa Referred To Contact Cardiology Diagnoses Arteriosclerotic cardiovascular disease (ASCVD) Procedures Follow Up In Cardiology Martin Elias DO [address], [address] [address] Phone: tel: fax: Martin Elias DO [address], [address] [place] [address] Phone: tel: fax: Referral ID Status Reason Start Date Expiration Date V isits Requested Visits Authorized [id number] Authorized 01/29/2024 01/28/2025 1 1 Reason Comments Anxiety Pt presents to discu anxiety. Pt notes periods of chest tightness when going to work on things, noticing a difference in personality when around large groups. Pt was told by Hospice Music Therapist he wants to have a stress test and he started to get all tense about this. Reason Comments Med Refill Care Teams (unrecognized sec tion and content) Sourcing Coordinator Relationship Specialty Start Date End Date iNtish Agrawal, [address] [place] [phone] PCP - General 09/18/19 Sourcing Coordinator Relationship Specialty Start Date End Date Lashaun Bradley, [address] [facility] [address] [place] [address] PCP - ACO Reach 03/29/23 Nitish Agrawal, [address] [facility] [address] [place] [address] PCP - General Family Medicine 03/13/23 Sourcing Coordinator Relationship Specialty Start Date End Date Lashaun Bradley DO [address] [place] [address] PCP - ACO Reach 03/29/23 Nitish Agrawal, [address] [facility] [address] [place] [address] PCP - General Family Medicine 03/13/23 Sourcing Coordinator Relationship Specialty Start Date End Date Lashaun Bradley DO [address] [place] [address] PCP - ACO Reach 03/29/23 Nitish Agrawal, DO [address] [place] [place] [address] PCP - General Family Medicine 03/13/23 Sourcing Coordinator Relationship Specialty Start Date End Date Lashaun Bradley, DO [address] [place] [address] PCP - ACO Reach 03/29/23 Nitish Agrawal, DO [address] [place] [address] [place] [address] PCP - General Family Medicine 03/13/23 Sourcing Coordinator Relationship Specialty Start Date End Date Lashaun Bradley, DO [address] [place] [place] [address] PCP - ACO Reach 03/29/23 Nitish Agrawal, DO [address] [place] [address] PCP - General Family Medicine 03/13/23 Sourcing Coordinator Relationship Specialty Start Date End Date Lashaun Bradley, DO [address] [place] [place] [address] PCP - ACO Reach 03/29/23 Nitish Agrawal, DO [address] [place] [address] [place] [address] PCP - General Family Medicine 03/13/23 Sourcing Coordinator Relationship Specialty Start Date End Date Lashaun Bradley, [address] [place] [address] [place] [address] PCP - ACO Reach 03/29/23 Nitish Agrawal, DO [address] [place] [address] [place] [address] PCP - General Family Medicine 03/13/23 Elliot Elias MD [facility] [facility] 250 [place] [address] Referring Physician Cardiology 12/04/24 Nisha Farrar MD [address] [place] [address] [place] [address] Referring Physician Podiatry 12/04/24 Sourcing Coordinator Relationship Specialty Start Date End Date Lashaun Bradley DO [address] [place] [address] [place] [address] PCP - ACO Reach 03/29/23 Nitish Agrawal, [address] [place] [address] [place] [address] PCP - General Family Medicine 03/13/23 Sourcing Coordinator Relationship Specialty Start Date End Date Nitish Agrawal, [address] [address] PCP - General 09/18/19 Sourcing Coordinator Relationship Specialty Start Date End Date Lashaun Bradley DO [address] [place] [address] [place] [address] PCP - ACO Reach 03/29/23 Nitish Agrawal, [address] [place] [address] [place] [address] PCP - General Family Medicine 03/13/23 Elliot Elias MD [address] [facility], [address] [place] [address] Referring Physician Cardiology 12/04/24 Nisha Farrar MD [address] [place] [address] [place] [address] Referring Physician Podiatry 12/04/24 Sourcing Coordinator Relationship Specialty Start Date End Date Lashaun Bradley, DO [address] [place] [place] [address] PCP - ACO Reach 03/29/23 Nitish Agrawal, [address] [place] [address] [place] [address] PCP - General Family Medicine 03/13/23 Elliot Elias MD [address] [facility] [address], [address] [place] [address] Referring Physician Cardiology 12/04/24 Nisha Farrar MD [address] [place] [address] [place] [address] Referring Physician Podiatry 12/04/24 Sourcing Coordinator Relationship Specialty Start Date End Date Lashaun Bradley, DO [address] [place] [address] PCP - ACO Reach 03/29/23 Nitish Agrawal, [address] [place] [address] [place] [address] PCP - General Family Medicine 03/13/23 Elliot Elias MD [address] [facility], [address] [place] [address] Referring Physician Cardiology 12/04/24 Nisha Farrar MD [address] [place] [address] [place] [address] Referring Physician Podiatry 12/04/24 Sourcing Coordinator Relationship Specialty Start Date End Date Lashaun Bradley DO [address] [place] [address] [place] [address] PCP - ACO Reach 03/29/23 Nitish Agrawal DO [address] [place] [address] [place] [address] PCP - General Family Medicine 03/13/23 Elliot Elias MD [address] [facility], [address] [place] [address] Referring Physician Cardiology 12/04/24 Nisha Farrar MD [address] [place] [address] [place] [address] Referring Physician Podiatry 12/04/24 Sourcing Coordinator Relationship Specialty Start Date End Date Nitish Agrawal DO [address] [place] [phone] PCP - General 09/18/19 Sourcing Coordinator Relationship Specialty Start Date End Date Nitish Agrawal DO [address] [place] [address] PCP - General 09/18/19 Sourcing Coordinator Relationship Specialty Start Date End Date Nitish Agrawal DO [address] [place] [address] PCP - General 09/18/19 Sourcing Coordinator Relationship Specialty Start Date End Date Nitish Agrawal, DO [address] [place] [address] PCP - General 09/18/19 Sourcing Coordinator Relationship Specialty Start Date End Date Lashaun Bradley, DO [address] [place] [address] [place] [address] PCP - ACO Reach 03/29/23 Nitish Agrawal, DO [address] [place] [address] [place] [address] PCP - General Family Medicine 03/13/23 Elliot Elias MD [address] [facility], [address] [place] [address] Referring Physician Cardiology 12/04/24 Nisha Farrar MD [address] [place] [address] [place] [address] Referring Physician Podiatry 12/04/24 Sourcing Coordinator Relationship Specialty Start Date End Date Lashaun Bradley, DO [address] [place] [place] [address] PCP - ACO Reach 03/29/23 Nitish Agrawal, DO [address] [place] [address] [place] [address] PCP - General Family Medicine 03/13/23 Elliot Elias MD [address] [facility], [address] [place] [address] Referring Physician Cardiology 12/04/24 Nisha Farrar MD [address] [place] [address] [place] [address] Referring Physician Podiatry 12/04/24 Team Status: Inactive Member Role Status Dates Nisha Farrar DPM MS Attending Provider Active Start: May 19, 2025 End: May 19, 2025 Sourcing Coordinator Relationship Specialty Start Date End Date Lashaun Bradley DO [address] [facility] [address] [place] [address] PCP - ACO Reach 03/29/23 Nitish Agrawal DO [address] [facility] 230 [place] [address] PCP - General Family Medicine 03/13/23 Elliot Elias MD [address] [facility], [address] [place] [address] Referring Physician Cardiology 12/04/24 Nisha Farrar MD [address] [place], [place] [address] [place] [address] Referring Physician Podiatry 12/04/24 Goals (unrecognized section and content) Goals may be documented in a n alternate section FOR RECORDS PERTAINING TO PATIENTS WHO ARE [...] BE BASED ON THE PRIMARY CLINICAL RECORDS. [facility]. provides no warranty or guarantee of the accuracy or completeness of information in this document.
== END 2025-05-27 09:18 | disposition home or self-care (01) ==
LOC: WC 09:18
PROVIDERS: PCP Family Medicine; Visit Provider Physician Assistant
DX: E11.621 Type 2 diabetes mellitus with foot ulcer (principal); L97.425 Non-pressure chronic ulcer of left heel and midfoot with muscle involvement without evidence of necrosis; L97.522 Non-pressure chronic ulcer of other part of left foot with fat layer exposed
CPT/HCPCS: A6213; G0463

== ENCOUNTER 2025-05-29 10:11 | Outpatient (OUT) | payer MEDICARE, OTHER, SELFPAY ==
--- OUTSIDE RECORDS SUMMARY | 2025-05-29 10:13 | XMS_ITS | Encounter Summary ---
Author Organization [facility] Address [address] [place] [address] Care Team Providers Care Neighborhood Aide Name Role Phone Lashaun Madison DO Unavailable [phone] Nitish Agrawal DO Primary Care Provider [phone] Elliot Elias MD Unavailable [phone] Nisha Ivory MD Unavailable [phone] Encounter Details Date Type Department Care Team [...] Visit [facility] [address] [facility] [address] [place] [phone] Lashaun Madison M, DO [address] [place] [address] 12/07/2025 10:00 AM EST Office Visit [facility] [address] [place] [address] Joyce Loyd L, VALVE PIPE IRRIGATOR [address] [place] [place], [place] [id number] documented as of this encounter Procedures Procedure Name Priority Date/Time Associated Diagnosis Comments XR FOOT LT MIN 3V 05/20/2025 8:2 1 AM EDT documented in this encounter Results * XR FOOT LT MIN 3V (05/20/2025 8:21 AM EDT) Anatomical Region Laterality Modality Other 05/20/2025 8:21 AM EDT Narrative 05/20/2025 8:23 [place] [address] XRay Report Signed Patient: JANICE PANDYA Jr. MR#: [id number] : 1955 Acct:[id number] Age/Sex: 70 / M ADM Date: 05/19/25 Loc: SURGOUT Attending Dr: Nisha Ivory D.P.M. Ordering Physician: Nisha Ivory D.P.M. Date of Service: 05/19/25 Procedure(s): XR foot LT min 3V Accession Number(s): [id number] cc: NITISH AGRAWAL ; Nisha Ivory D.P.M. The [address] [address] Patient Name: JANICE PANDYA MRN: [id number] date: 1955 Sex: M Assigned Patient Location: [facility] Current Patient Location: Accession/Order Number: [id number] Exam Date: 05/20/2025 08:15 Report Date: 05/20/2025 [...] Owens M.D. 05/20/2025 8:21 AM Dictation Location: [place] [address] Electronically authenticated by: [id number] Y Date: 05/20/2025 08:21 Dictated By: Melani Owens M.D. Signed By: 05/20/2523 DD/ 0 TD/TT: Picker And Packer: Procedure Note Radiology, Radiologist, MD - 05/20/2025 [place] [address] XRay Report Signed Patient: JANICE PANDYA Jr.MR#: [id number] : 6Acct:[id number] Age/Sex: 70 / MADM Date: 05/19/25 Loc: SURGOUT Attending Dr: Nisha Ivory D.P.M. Ordering Physician: Nisha Ivory D.P.M. Date of Service: 05/19/25 Procedure(s): XR foot LT min 3V Accession Number(s): [id number] cc: NITISH AGRAWAL ; Nisha Ivory D.P.M. [address] [address] Patient Name: JANICE PANDYA MRN: [id number] date: 1955 Sex: M Assigned Patient Location: SURGOUT Current Patient Location: Accession/Order Number: [id number] Exam Date: 05/20/2025 08:15 Report Date: 05/20/2025 [...] Owens M.D. 05/20/2025 8:21 AM Dictation Location: [place] [address] Electronically authenticated by: [id number] Y Date: 508:21 Dictated By: Melani Owens M.D. Signed By:05/20/25822 DD/ 0 TD/TT: Picker And Packer: us Generic External Data Provider [facility] Final Result documented in this encounter Visit Diagnoses Not on filedocumented in this encounter Additional Health Concerns Assessment Noted Time PHQ-9 Depression Total Score: 0 12/04/19 11:00 AM EST documented as of this encounter Care Teams Neighborhood Aide Relationship Specialty Start Date End Date Lashaun Madison, DO [address] [facility] [address] [place] [address] PCP - ACO Reach 03/29/23 Nitish Agrawal DO [address] [facility] [address] [place] [address] PCP - General Family Medicine 03/13/23 Elliot Elias MD [address] [facility], [address] [place] [address] Referring Physician Cardiology 12/04/24 Nisha Ivory MD [address] [place] [address] [place] [address] Referring Physician Podiatry 12/04/24 documented as of this encounter
--- OUTSIDE RECORDS SUMMARY | 2025-05-29 10:13 | XMS_ITS | Encounter Summary ---
Author Organization [facility] Address [address] [place] [address] Care Team Providers Care Form Grader Operator Name Role Phone Lashaun Madison Judie DO Unavailable [phone] Nitish Agrawal DO Primary Care Provider [phone] Elliot Elias MD Unavailable [phone] Ranjan Ivory MD Unavailable [phone] Encounter Details Date Type Department Care Team ([facility] Contact Info) Description 05/19/2025 Abstract [facility] [address] [facility] [address] [place] [address] Nitish Agrawal, [address] [facility] 230 [place] [address] Social History Tobacco Use Types Packs/Day Years [...] Upcoming Encounters Date Type Department Care Team ([facility] Contact Info) Description 09/21/2025 8:30 AM EST Office Visit [facility] [address] [place] [address] Lashaun Madison DO [address] [place] [address] 12/07/2025 10:00 AM EST Office Visit [facility] [address] [address] [place] [address] Joyce Loyd, BIKE ASSEMBLER [address] [facility] [address] [place], [place] [phone] documented as of this encounter Visit Diagnoses Not on filedocumented in this encounter Additional Health Concerns Assessment Noted Time PHQ-9 Depression Total Score: 0 12/04/19 11:00 AM EST documented as of this encounter Care Teams Form Grader Operator Relationship Specialty Start Date End Date Lashaun Madison DO [address] [facility] [place] [address] PCP - ACO Reach 03/29/23 Nitish Agrawal DO [address] [facility] [place] [address] PCP - General Family Medicine 03/13/23 Elliot Elias MD [address] [facility], [address] [place] [address] Referring Physician Cardiology 12/04/24 Ranjan Ivory MD [address] [place] [address] [place] [address] Referring Physician Podiatry 12/04/24 documented as of this encounter
--- OUTSIDE RECORDS SUMMARY | 2025-05-29 10:13 | XMS_ITS | Clinical Summary ---
Author Organization [facility] Address [address] [place] [address] Care Team Providers Care Gambling Monitor Name Role Phone Lashaun Madison Judie RICH Unavailable [phone] Nitish Martin DO Primary Care Provider [phone] Elliot Elias MD Unavailable [phone] Nisha Ivory MD Unavailable [phone] Allergies No known active allergies Medications isosorbide [...] chest pain. Active Blood Glucose Monitoring Suppl ([employer]AK Verio Flex System) w/Device kit Active glucose [...] unspecified 03/29/2016 Atherosclerotic heart diseas e of [place] coronary artery without angina pectoris 03/29/2016 Gastro-esophageal reflux disease without esophag itis 03/29/2016 Osteoarthritis of knee, unspecified 03/29/2016 Difficulty in walking, not elsewhere classified 03/29/2016 Muscle weakness (generalized) 03/29/2016 Other reduced mobility 03/29/2016 Diabetes mellitus due to und erlying condition with unspecified complications 03/29/2016 Difficulty walking 03/29/2016 Muscle weakness 03/29/2016 Reduced mobility 03/29/2016 Encounters Date Type Department Care Team Description 05/24/2025 Refill [facility] [address] [place] [address] Robin Caicedo PA Anxiety 05/20/2025 Clinisync Result Encounter [facility] External Department Unsolicited Provider, Generic External Data 05/19/2025 Abstract [facility] [address] [place] [address] Nitish Martin, DO 05/18/2025 Clinisync Result Encounter [facility] External Department Unsolicited Provider, Generic External Data 05/15/2025 Clinisync Result Encounter [facility] External Department Unsolicited Provider, Generic External Data 05/15/2025 Abstract [facility] [address] [place] [address] Nitish Martin, DO 05/15/2025 Abstract [facility] [address] [facility] [address] [place] [address] Nitish Martin DO 05/15/2025 Clinisync Result Encounter [facility] External Department Unsolicited Provider, Generic External Data 04/22/2025 Clinisync Result Encounter [facility] External Department Unsolicited Provider, Generic External Data 03/27/2025 8:45 AM EDT Office Visit [facility] [address] [facility] [place] [place] [address] Lashaun Madison, Type 2 diabetes mellitus with stage 3a chronic kidney disease, without long-term current use of insulin (HCC); Type 2 diabetes mellitus with other circulatory complications (HCC) 03/27/2025 Orders Only [facility] [address] [facility] [address] [place] [address] Joyce Loyd NP Colon cancer screening (Primary Dx) 03/27/2025 Travel 03/01/2025 Refill [facility] [address] [facility] [address] [place] [address] Lashaun Madison, Type 2 diabetes mellitus with [...] 09/21/2025 8:30 AM EST Office Visit [facility] [address] [place] [address] Lashaun Madison, DO [address] [place] [address] 12/07/2025 10:00 AM EST Office Visit [facility] [address] [place] [address] Joyce Loyd, METER REPAIRER [address] [place] [address] Health Maintenance Due Date Last Done Comments [...] EDT Narrative 05/20/2025 8:23 AM EDT The [address] [address] XRay Report Signed Patient: JANICE PANDYA Jr. MR#: [id number] : 1955 Acct:[id number] Age/Sex: 70 / M ADM Date: 05/19/25 Loc: SURGOUT Attending Dr: Nisha Ivory D.P.M. Ordering Physician: Nisha Ivory D.P.M. Date of Service: 05/19/25 Procedure(s): XR foot LT min 3V Accession Number(s): [id number] cc: NITISH MARTIN ; Nisha Ivory D.P.M. [place] [id number] Patient Name: JANICE PANDYA MRN: [facility]:[id number] date: 1955 Sex: M Assigned Patient Location: SURGOUT Current Patient Location: Accession/Order Number: [id number] Exam Date: 05/20/2025 08:15 Report Date: 05/20/2025 [...] Owens M.D. 05/20/2025 8:21 AM Dictation Location: [place] [address] Electronically authenticated by: [id number] Y Date: 05/20/2025 08:21 Dictated By: Melani Owens M.D. Signed By: 05/20/25 0823 DD/ 0 TD/TT: Salesperson Parts: Procedure Note Radiology, Radiologist, - 05/20/2025 [place] [address] XRay Report Signed Patient: JANICE PANDYA Jr.MR#: [id number] : 1955cct:[id number] Age/Sex: 70 / MADM Date: 05/19/25 Loc: SURGOUT Attending Dr: Nisha Ivory D.P.M. Ordering Physician: Nisha Ivory D.P.M. Date of Service: 05/19/25 Procedure(s): XR foot LT min 3V Accession Number(s): [id number] cc: NITISH MARTIN ; Nisha Ivory D.P.M. The [place] [id number] Patient Name: JANICE PANDYA MRN: [id number] date: 1955 Sex: M Assigned Patient Location: [facility] Current Patient Location: Accession/Order Number: [id number] Exam Date: 05/20/2025 08:15 Report Date: 05/20/2025 [...] Owens M.D. 05/20/2025 8:21 AM Dictation Location: [place] [address] Electronically authenticated by: [id number] Y Date: 508:21 Dictated By: Melani Owens M.D. Signed By:05/20/25822 DD/ 0 TD/TT: Salesperson Parts: us Generic External Data Provider [facility] Final Result * SEGMENTAL BLOOD PRESSURE (05/18/2025 8:40 AM EDT) Anatomical Region Laterality Modality Radiographic Kelly ging 05/18/2025 8:40 AM EDT Narrative 05/19/2025 12:57 [place] [address] Cardiology Report Signed Patient: JANICE PANDYA Jr. MR#: [id number] : 1955 Acct:[id number] Age/Sex: 70 / M ADM Date: 05/18/25 Loc: CARD Attending Dr: Gisela HARRIS Ordering Physician: Gisela Crandall Date of Service: 05/18/25 Procedure(s): CA segmental UE or LE ANTHONY Accession Number(s): [id number] cc: NITISH MARTIN The [facility] Test Date: 2025-05-18 Pat Name: JANICE PANDYA Department: Room: - Gender: Male Burrer Marker Axle: : 1955 Requested By: Gisela Crandall Order Number: [id number] Reading MD: DEBRA FAITH Interpretive Statements Normal [...] 05/19/25 1257 05/19/25 1257 DD/ 0840 TD/TT: Salesperson Parts: Procedure Note Radiology, Radiologist, - 05/19/2025 [place] [address] Cardiology Report Signed Patient: JANICE PANDYA Jr.MR#: [id number] : 6Acct:[id number] Age/Sex: 70 / MADM Date: 05/18/25 Loc: CARD Attending Dr: Gisela HARRIS Ordering Physician: Gisela Crandall Date of Service: 05/18/25 Procedure(s): CA segmental UE or LE ANTHONY Accession Number(s): [id number] cc: NITISH MARTIN The [facility] Test Date: 2025-05-18 Pat Name: JANICE PANDYA Department: Room: - Gender: Male Burrer Marker Axle: : 1955 Requested By: Gisela Crandall Order Number: [id number] Reading MD: DEBRA FAITH Interpretive Statements Normal [...] By:05/19/25 1257 05/19/25 1257 DD/ 0840 TD/TT: Salesperson Parts: us Generic External Data Provider IMG XR PROCEDURES Final Result * XR CHEST 2V (05/15/2025 10:49 AM EDT) Anatomical Region Laterality Modality Other 05/15/2025 10:4 9 AM EDT Narrative 05/15/2025 10:51 AM EDT [address] [address] XRay Report Signed Patient: JANICE PANDYA Jr. MR#: [id number] : 1955 Acct:[id number] Age/Sex: 70 / M ADM Date: 05/15/25 Loc: PST Attending Dr: Nisha Ivory D.P.M. Ordering Physician: Nisha Ivory D.P.M. Date of Service: 05/15/25 Procedure(s): XR chest 2V Accession Number(s): [id number] cc: NITISH MARTIN ; Nisha Ivory D.P.M. [place] [address] Patient Name: JANICE PANDYA MRN: [id number] date: 1955 Sex: M Assigned Patient [facility] Accession/Order Number: [id number] Exam Date: 05/15/2025 10:46 Report Date: 05/15/2025 [...] Owens M.D. 05/15/2025 10:49 AM Dictation Location: [place] [address] Electronically authenticated by: [id number] Y Date: 05/15/2025 10:49 Dictated By: Melani Owens M.D. Signed By: 05/15/25 1051 DD/ 1049 TD/TT: Salesperson Parts: Procedure Note Radiology, Radiologist, - 05/15/2025 The [place] [id number] XRay Report Signed Patient: JANICE PANDYA Jr.MR#: [id number] : 1955cct:[id number] Age/Sex: 70 / MADM Date: 05/15/25 Loc: PST Attending Dr: Nisha Ivory D.P.M. Ordering Physician: Nisha Ivory D.P.M. Date of Service: 05/15/25 Procedure(s): XR chest 2V Accession Number(s): [id number] cc: NITISH MARTIN ; Nisha Ivory D.P.M. The [place] [id number] Patient Name: JANICE PANDYA MRN: [id number] date: 1955 Sex: M Assigned Patient Location: [facility] Current Patient Location: [facility] Accession/Order Number: [id number] Exam Date: 05/15/2025 10:46 Report Date: 05/15/2025 [...] Owens M.D. 05/15/2025 10:49 AM Dictation Location: [place] [address] Electronically authenticated by: [id number] Y Date: 0:49 Dictated By: Melani Owens M.D. Signed By:05/15/25 1051 DD/ TD/TT: Salesperson Parts: Generic External Data Provider [facility]AG[facility] Final Result * [facility] PROTHROMBIN TIME INR W/O COUM (05/15/2025 10:35 AM EDT) Pathologist [facility] PROTHROMBIN TIME 11.1 9.0 - 11.6 sec TB TB INR 1.05 TBH Comment: DESIRED INR: 2.0-3.0 CONDITIONS NOT LISTED BELOW 2.5-3.5 FOR PROSTHETIC HEART VALVE REPLACEMENT 2.5-3.5 RECURRENT THROMBOSIS 05/15/2025 10:3 5 AM EDT 05/15/2025 10:40 AM EDT Narrative CLINISYNC - 05/15/2025 11:18 AM EDT Generic External Data Provider CLIN[facility]NC F inal Result [facility] * [facility] APTT (05/15/2025 10:35 AM EDT) [facility] PARTIAL THROMBOPLASTIN TIME 32.2 22.3 - 36.2 sec TB 05/15/2025 10:3 5 AM EDT 05/15/2025 10:40 AM EDT Narrative CLINISYNC - 05/15/2025 11:18 AM EDT Generic External Data Provider CLINISYNC F inal Result [facility] * (ABNORMAL) ALL CBC WITH AUTO DIFF (05/15/2025 10:35 AM EDT) Pathologist [facility] TB WBC 7.1 4.0 - 11.0 10 [...] AM EDT 05/15/2025 10:40 AM EDT Narrative JACNC - 05/15/2025 11:06 AM EDT us Generic External Data Provider CLINEUGENIO F inal Result [facility] * (ABNORMAL) ALL BASIC METABOLIC PANEL (05/15/2025 [...] 0.70 - 1.30 mg/dL TBH TBH EGFR-AF [place]AN >60 >=60 mL/min/1.7 3m 2 TBH TBH EGFR-NON AF [place]GIAN 54(L) >=60 mL/min/1.7 3m 2 TBH BUN CREATININE RATIO 18.9 TBH CALCIUM 8.5 8.5 - 10.1 mg/dL TBH 05/15/2025 10:3 5 AM EDT 05/15/2025 10:40 AM EDT Narrative CLINISYNC - 05/15/2025 11:26 AM EDT us Generic External Data Provider CLINISYNC F inal Result [facility]INE[facility] * ECG 12-LEAD (05/15/2025 8:31 AM EDT) Anatomical Region Laterality Modality Other 05/15/2025 8:31 AM EDT Narrative 05/19/2025 4:10 [place] [address] Electrocardiograph Report Signed Patient: JANICE PANDYA Jr. MR#: [id number] : 1955 Acct:[id number] Age/Sex: 70 / M ADM Date: 05/15/25 Loc: PST Attending Dr: Nisha Ivory D.P.M. Ordering Physician: Nisha Ivory D.P.M. Date of Service: 05/15/25 Procedure(s): ECG 12 lead Accession Number(s): [id number] cc: [facility] Test Date: 2025-05-15 Pat Name: JANICE PANDYA Department: Room: - Gender: Male Burrer Marker Axle: : 1955 Requested By: NISHA IVORY Order Number: [id number] Jailyn MD: DEBRA FAITH Measurements Intervals [place] Rate: 63 P: 21 MD: 288 QRS: 35 QRSD: 114 T: 146 [...] Faith M.D. Signed By: 05/19/25 1610 DD/ 0 TD/TT: Salesperson Parts: Procedure Note Radiology, Radiologist, MD - 05/19/2025 [place] [address] Electrocardiograph Report Signed Patient: JANICE PANDYA Jr.MR#: [id number] : 1955cct:[id number] Age/Sex: 70 / MADM Date: 05/15/25 Loc: PST Attending Dr: Nisha Ivory D.P.M. Ordering Physician: Nisha Ivory D.P.M. Date of Service: 05/15/25 Procedure(s): ECG 12 lead Accession Number(s): [id number] cc: The [facility] Test Date: 2025-05-15 Pat Name: JANICE PANDYA Department: Room: - Gender: Male Burrer Marker Axle: : 1955 Requested By: NISHA IVORY Order Number: [id number] Reading MD: DEBRA FAITH Measurements Intervals [place] Rate: 63 P: 21 MD: 288 QRS: 35 QRSD: 114 T: 146 [...] Debra Faith M.D. Signed By:05/19/25 1610 DD/ 0 TD/TT: Salesperson Parts: Generic External Data Provider [facility] IMAG[facility] Final Result * POCT glycosylated hemoglobin (Hb A1C) docked device (03/27/2025 8:57 AM EDT) Hemoglobin A1C 7.1 Blood Venous blood specimen / Unknown 03/27/2025 8:57 AM EDT Result [facility] Lashaun Madison DO POINT OF CARE TEST [...] 10:07 AM EST Performed at: 01 - [facility] [id number] Rug Designer: Leonardo Stevens PhD, Phone: [phone] Result [facility] Lashaun Madison DO LAB URINE ORDERABLES Final Result [facility] * Color Fundus Photography - OU - Both Eyes (06/27/2022 12:00 PM EDT) Anatomical Region Laterality Modality Head Fundus Photograp hy 06/27/2022 12:0 0 PM EDT Narrative 06/27/2022 12:00 PM EDT PERFORMED AT [facility] LOCATION:[id number] [facility] Procedure Note CONVERSION, GENERIC - 03/21/2023 PERFORMED AT [facility] LOCATION:[id number] [facility] Result [facility] Lashaun M Petznick DO OPHTH PHOTOGRAPHY Final Re sult * [...] (Payam Dillon al, N Engl J Med 2014;370(14):5585-0290) The normal value (reference range) for this assay is negative. COLOGUARD RE-SCREENING RECOMMENDATION: Periodic colorectal cancer screening is an important part of preventive healthcare for asymptomatic individuals at average risk for colorectal cancer. Following a negative Cologuard result, the French Cancer Society and U.S. Multi-Society Task Force screening guidelines recommend a Cologuard re-screening interval of 3 years. References: French Cancer Society Guideline for Colorectal Cancer Screening: https://www.cancer.org/cancer/bebhp-wfulwq-gjxnbg/gwppbutoz-jnsbvxatg-jwtcicc/ac s-rec ommendations.html.; [place] DK, Oren CR, Harvey RomanK, Colorectal Cancer Screening: Recommendations for Physicians and Patients from the U.S. Multi-Society Task Force on Colorectal Cancer Screening , Am J Gastroenterology 2017; 112:0217-3460. TEST DESCRIPTION: Composite algorithmic analysis of stool [...] (Payam Dillon al, N Engl J Med 2014;370(14):5610-7119.) Cologuard may produce a false negative or false positive result (no colorectal cancer or precancerous polyp present at colonoscopy follow up). A negative Cologuard test result does not guarantee the absence of CRC or advanced adenoma (pre-cancer). The current Cologuard screening interval is every 3 years. (French Cancer Society and U.S. Multi-Society Task Force). Cologuard performance data in a 10,000 patient pivotal study using colonoscopy as the reference method can be accessed at the following location: www.[employer].com/results. Additional description of the Cologuard test process, warnings and precautions can be found at www.cologuard.com. 03/27/2022 Robin HARRIS LAB MOLECULAR DIAGNOSTICS ORDERA BLES Final Result [facility] from Last 3 Months or Most Recently Relevant to Health Maintenance Insurance [employer] Care Teams Gambling Monitor Relationship Specialty Start Date End Date Lashaun Madison DO [address] [place] [address] PCP - ACO Reach 03/29/23 Nitish Martin DO [address] [place] [address] PCP - General Family Medicine 03/13/23 Elliot Elias MD [address] [facility] [address] [place] [address] Referring Physician Cardiology 12/04/24 Nisha Ivory MD [address] [place] [address] [place] [address] Referring Physician Podiatry 12/04/24
--- OUTSIDE RECORDS SUMMARY | 2025-05-29 10:13 | XMS_ITS | Encounter Summary ---
Author Organization [facility] Address [address] [place] [address] Care Team Providers Care Water Filter Cleaner Name Role Phone Lashaun Madison DO Unavailable [phone] Nitish Agrawal DO Primary Care Provider [phone] Elliot Elias MD Unavailable [phone] Nisha Ivory MD Unavailable [phone] Encounter Details Date Type Department Care Team [...] Visit [facility] [address] [place] [address] Lashaun Madison, DO [address] [place] [address] 12/07/2025 10:00 AM EST Office Visit [facility] [address] [place] [address] Joyce Loyd, QA LEAD [address] [place], [place] [phone] documented as of this encounter Procedures Procedure Name Priority Date/Time Associated Diagnosis Comments ECG 12-LEAD 05/15/2025 8:31 AM EDT documented in this encounter Results * ECG 12-LEAD (05/15/2025 8:31 AM EDT) Anatomical Region Laterality Modality Other 05/15/2025 8:31 AM EDT Narrative 05/19/2025 4:10 PM EDT [place] [id number] Electrocardiograph Report Signed Patient: JANICE PANDYA Jr. MR#: [id number] : 1955 Acct:[id number] Age/Sex: 70 / M ADM Date: 05/15/25 Loc: PST Attending Dr: Nisha Ivory D.P.M. Ordering Physician: Nisha Ivory D.P.M. Date of Service: 05/15/25 Procedure(s): ECG 12 lead Accession Number(s): [id number] cc: The [facility] Test Date: 2025-05-15 Pat Name: JANICE PANDYA Department: Room: - Gender: Male Lead Rider: : 1955 Requested By: NISHA IVORY Order Number: [id number] Reading MD: SUKHWINDER FAITH Measurements Intervals [place] Rate: 63 P: 21 [place]: 288 QRS: 35 QRSD: 114 T: 146 [...] Signed By: 05/19/25 1610 DD/ 0831 TD/TT: Spooler Operator: Procedure Note Radiology, Radiologist, MD - 05/19/2025 [place] [address] Electrocardiograph Report Signed Patient: JANICE PANDYA Jr.MR#: [id number] : 1955cct:[id number] Age/Sex: 70 / MADM Date: 05/15/25 Loc: PST Attending Dr: Nisha Ivory D.P.M. Ordering Physician: Nisha Ivory D.P.M. Date of Service: 05/15/25 Procedure(s): ECG 12 lead Accession Number(s): [id number] cc: The [facility] Test Date: 2025-05-15 Pat Name: JANICE PANDYA Department: Room: - Gender: Male Lead Rider: : 1955 Requested By: NISHA IVORY Order Number: [id number] Reading MD: SUKHWINDER FAITH Measurements Intervals [place] Rate: 63 P: 21 [place]: 288 QRS: 35 QRSD: 114 T: 146 [...] M.D. Signed By:05/19/25 1610 DD/ 0831 TD/TT: Spooler Operator: Generic External Data Provider [facility] IMAG[facility] Final Result documented in this encounter Visit Diagnoses Not on filedocumented in this encounter Additional Health Concerns Assessment Noted Time PHQ-9 Depression Total Score: 0 12/04/19 25 11:00 AM EST documented as of this encounter Care Teams Water Filter Cleaner Relationship Specialty Start Date End Date Lashaun Madison DO [address] [place] [address] PCP - ACO Reach 03/29/23 Nitish Agrawal DO [address] [place] [address] PCP - General Family Medicine 03/13/23 Elliot Elias MD [address] [place] [address] [address] [place] [address] Referring Physician Cardiology 12/04/24 Nisha Ivory MD [address] [place] [address] [place] [address] Referring Physician Podiatry 12/04/24 documented as of this encounter
--- OUTSIDE RECORDS SUMMARY | 2025-05-29 10:13 | XMS_ITS | Encounter Summary ---
Author Organization [facility] Address [address] [place] [address] Care Team Providers Care Classroom Teacher Name Role Phone Lashaun Madison Judie DO Unavailable [phone] Nitish Agrawal DO Primary Care Provider [phone] Elliot Elias MD Unavailable [phone] Ranjan Ivory MD Unavailable [phone] Encounter Details Date Type Department Care Team (Late st Contact Info) Description 12/04/2024 Abstract [facility] [address] [facility] [address] [place] [address] Nitish Agrawal, [address] [facility] [address] [place] [address] Social History Tobacco Use Types Packs/Day Years [...] Not at all 12/04/2024 11 :00 AM Mihcela Petty MA Feeling bad about yourself - [...] 09/21/2025 8:30 AM EST Office Visit [facility] [address] [place] [address] Lashaun Madison, [address] [place] [address] 12/07/2025 10:00 AM EST Office Visit [facility] [address] [place] [address] Joyce Loyd, LAZARO [address] [place] [address] documented as of this encounter Visit Diagnoses Not on filedocumented in this encounter Additional Health Concerns Assessment Noted Time PHQ-9 Depression Total Score: 0 12/04/19 11:00 AM EST documented as of this encounter Care Teams Classroom Teacher Relationship Specialty Start Date End Date Lashaun Madison DO [address] [place] [address] PCP - ACO Reach 03/29/23 Nitish Agrawal DO [address] [place] [address] PCP - General Family Medicine 03/13/23 Elliot Elias MD [address] [facility] [address] [place] [address] Referring Physician Cardiology 12/04/24 Ranjan Ivory MD [address] [place] [address] [place] [address] Referring Physician Podiatry 12/04/24 documented as of this encounter
--- OUTSIDE RECORDS SUMMARY | 2025-05-29 10:13 | XMS_ITS | Encounter Summary ---
Author Organization [facility] Address [address] [facility] [place] [address] Care Team Providers Care Grading Clerk Name Role Phone Lashaun Madison DO Unavailable [phone] Nitish Agrawal DO Primary Care Provider [phone] Elliot Elias MD Unavailable [phone] Ranjan Ivory MD Unavailable [phone] Encounter Details Date Type Department Care Team [...] Visit [facility] [address] [place] [address] Lashaun Madison, DO [address] [place] [address] 12/07/2025 10:00 AM EST Office Visit [facility] [address] [place] [address] Jyoce Loyd L, MEALS ON WHEELS DRIVER [address] [place], [place] [phone] documented as of this encounter Procedures Procedure Name Priority Date/Time Associated Diagnosis Comments SEGMENTAL BLOOD PRESSURE 05/18/2025 8:40 AM EDT documented in this encounter Results * SEGMENTAL BLOOD PRESSURE (05/18/2025 8:40 AM EDT) Anatomical Region Laterality Modality Radiographic Kelly ging 05/18/2025 8:40 AM EDT Narrative 05/19/2025 12:57 [place] [address] Cardiology Report Signed Patient: JANICE PANDYA Jr. MR#: [id number] : 1955 Acct:[id number] Age/Sex: 70 / M ADM Date: 05/18/25 Loc: CARD Attending Dr: Gisela HARRIS Ordering Physician: Gisela Crandall Date of Service: 05/18/25 Procedure(s): CA segmental UE or LE ANTHONY Accession Number(s): [id number] cc: NITISH AGRAWAL [facility] Test Date: 2025-05-18 Pat Name: JANICE PANDYA Department: Room: - Gender: Male Photographer Scientific: : 1955 Requested By: Gisela Crandall Order Number: [id number] Jailyn MD: DEBRA FAITH Interpretive Statements Normal [...] 05/19/25 1257 05/19/25 1257 DD/ 0840 TD/TT: Histology Teacher: Procedure Note Radiology, Radiologist, MD - 05/19/2025 [place] [address] Cardiology Report Signed Patient: JANICE PANDYA Jr.MR#: [id number] : 1955cct:[id number] Age/Sex: 70 / MADM Date: 05/18/25 Loc: CARD Attending Dr: Gisela HARRIS Ordering Physician: Gisela Crandall Date of Service: 05/18/25 Procedure(s): CA segmental UE or LE ANTHONY Accession Number(s): [id number] cc: NITISH AGRAWAL [facility] Test Date: 2025-05-18 Pat Name: JANICE PANDYA Department: Room: - Gender: Male Photographer Scientific: : 1955 Requested By: Gisela Crandall Order Number: [id number] Reading MD: DEBRA FAITH Interpretive Statements Normal [...] By:05/19/25 1257 05/19/25 1257 DD/ 0840 TD/TT: Histology Teacher: Generic External Data Provider IMG XR PROCEDURES Final Result documented in this encounter Visit Diagnoses Not on filedocumented in this encounter Additional Health Concerns Assessment Noted Time PHQ-9 Depression Total Score: 0 12/04/19 25 11:00 AM EST documented as of this encounter Care Teams Grading Clerk Relationship Specialty Start Date End Date Lashaun Madison DO [address] [place] [address] PCP - ACO Reach 03/29/23 Nitish Agrawal DO [address] [place] [address] PCP - General Family Medicine 03/13/23 Elliot Elias MD [address] [facility] 2, [address] [place] [address] Referring Physician Cardiology 12/04/24 Ranjan Ivory MD [address] [place] [address] [place] [address] Referring Physician Podiatry 12/04/24 documented as of this encounter
--- OUTSIDE RECORDS SUMMARY | 2025-05-29 10:13 | XMS_ITS | Encounter Summary ---
Author Organization [facility] Address [address] [place] [address] Care Team Providers Care Triage Licensed Practical Nurse Name Role Phone Lashaun Madison Judie DO Unavailable [phone] Nitish Agrawal DO Primary Care Provider [phone] Elliot Elias MD Unavailable [phone] Ranjan Ivory MD Unavailable [phone] Reason for Visit * Reason Comments Med Refill Encounter Details Date Type Department Care Team (Late st Contact Info) Description 05/24/2025 Refill [facility] [address] [facility] 230 [place] [address] Robin Caicedo PA [address] [facility] 230 [place] [address] Anxiety Social History Tobacco Use Types Packs/Day [...] 09/21/2025 8:30 AM EST Office Visit [facility] [address] [place] [address] Lashaun Madison DO [address] [place] [address] 12/07/2025 10:00 AM EST Office Visit [facility] [address] [place] [address] Joyce Loyd, TYPING POOL SUPERVISOR [address] [place] [address] documented as of this encounter Visit Diagnoses Diagnosis Anxiety Anxiety state, unspecified documented in this encounter Additional Health Concerns Assessment Noted Time PHQ-9 Depression Total Score: 0 12/04/19 11:00 AM EST documented as of this encounter Care Teams Triage Licensed Practical Nurse Relationship Specialty Start Date End Date Lashaun Madison DO [address] [place] [address] PCP - ACO Reach 03/29/23 Nitish Agrawal DO [address] [place] [address] PCP - General Family Medicine 03/13/23 Elliot Elias MD [address] [facility] [address], [address] [place] [address] Referring Physician Cardiology 12/04/24 Ranjan Ivory MD [address] [place] [address] [place] [address] Referring Physician Podiatry 12/04/24 documented as of this encounter
--- OUTSIDE RECORDS SUMMARY | 2025-05-29 10:14 | XMS_ITS | Encounter Summary ---
Author Organization [facility] Address [address] [place] [address] Phone Care Team Providers Care Cook Fruit Name Role Phone Nitish Agrawal DO Primary Care Provider [phone] Encounter Details Date Type Department Care Team (Late st Contact Info) Description 11/07/2021 Orders Only [facility] [address] Virtual [place] [address] Conversion, Onbase Social History Tobacco Use Types [...] Description 08/04/2025 11:10 AM EDT Office Visit [facility] [address] [facility] [address] [place] [address] Martin Elias DO [address], [address] [place] [address] Scheduled Orders Name Type Priority Associated Diagnoses Orde r Schedule OUTSIDE LAB SCAN Lab Ordered: 11/07/2021 documented as of this encounter Visit Diagnoses Not on filedocumented in this encounter Care Teams Cook Fruit Relationship Specialty Start Date End Date Nitish Agrawal DO [address] [place] [address] PCP - General 09/18/19 documented as of this encounter
--- OUTSIDE RECORDS SUMMARY | 2025-05-29 10:14 | XMS_ITS | Encounter Summary ---
Author Organization [facility] Address [address] [place] [address] Care Team Providers Care Nutrition Worker Name Role Phone Lashaun Madison DO Unavailable [phone] Nitish Agrawal DO Primary Care Provider [phone] Elliot Elias MD Unavailable [phone] Ranjan Ivory MD Unavailable [phone] Reason for Visit * Reason Comments Med Refill Encounter Details Date Type Department Care Team (Late st Contact Info) Description 03/04/2024 Refill [facility] [address] [facility] [address] [place] [address] Lashaun Madison, DO [address] [facility] 230 [place] [address] Type 2 diabetes mellitus with [...] 09/21/2025 8:30 AM EST Office Visit [facility] [address] [place] [address] Lashaun Madison DO [address] [place] [address] 12/07/2025 10:00 AM EST Office Visit [facility] [address] [place] [address] Joyce Loyd, UTILITY ARBORIST [address] [place] [address] documented as of this encounter Visit Diagnoses Diagnosis Type 2 diabetes mellitus with other circulatory complications (HCC) documented in this encounter Care Teams Nutrition Worker Relationship Specialty Start Date End Date Lashaun Madison DO [address] [place] [address] PCP - ACO Reach 03/29/23 Nitish Agrawal DO [address] [place] [address] PCP - General Family Medicine 03/13/23 Elliot Elias MD [facility] [facility], [address] [place] [address] Referring Physician Cardiology 12/04/24 Ranjan Ivory MD [address] [place] [address] Dr LUCAS [place], [facility] Referring Physician Podiatry 12/04/24 documented as of this encounter
--- OUTSIDE RECORDS SUMMARY | 2025-05-29 10:14 | XMS_ITS | Encounter Summary ---
Author Organization [facility] Address [address] [place] [address] Care Team Providers Care Policy Officer Name Role Phone Lashaun Madison DO Unavailable [phone] Nitish Agrawal DO Primary Care Provider [phone] Elliot Elias MD Unavailable [phone] Ranjan Ivory MD Unavailable [phone] Encounter Details Date Type Department Care Team (Late st Contact Info) Description 02/19/2024 Abstract [facility] [address] [facility] 230 [place] [address] Lashaun Madison, [address] [facility] 230 [place] [address] Social History Tobacco Use Types Packs/Day Years [...] 09/21/2025 8:30 AM EST Office Visit [facility] [address] [place] [address] Lashaun Madison, DO [address] [place] [address] 12/07/2025 10:00 AM EST Office Visit [facility] [address] [place] [address] Joyce Loyd, BEDSPREAD SEAMER [address] [place] [address] documented as of this encounter Visit Diagnoses Not on filedocumented in this encounter Care Teams Policy Officer Relationship Specialty Start Date End Date Lashaun Madison, DO [address] [place] [address] PCP - ACO Reach 03/29/23 Nitish Agrawal DO [address] [place] [address] PCP - General Family Medicine 03/13/23 Elliot Elias MD [address] [facility] 2, [address] [place] [address] Referring Physician Cardiology 12/04/24 Ranjan Ivory MD [address] [place] [address] [place] [address] Referring Physician Podiatry 12/04/24 documented as of this encounter
--- OUTSIDE RECORDS SUMMARY | 2025-05-29 10:14 | XMS_ITS | Encounter Summary ---
Author Organization [facility] Address [address] [place] [address] Care Team Providers Care Compound Mixer Name Role Phone Lashaun Madison DO Unavailable [phone] Nitish Agrawal DO Primary Care Provider [phone] Elliot Elias MD Unavailable [phone] Ranjan Ivory MD Unavailable [phone] Encounter Details Date Type Department Care Team (Late st Contact Info) Description 07/19/2023 Abstract [facility] [address] [place] [phone] Kiel Lozano, DPM [address] [place] [address] Social History Tobacco Use Types Packs/Day Years [...] W [facility] 230 [place] [address] Lashaun Madison DO [address] [facility] 230 [place] [address] 12/07/2025 10:00 AM EST Office Visit [facility] [address] [place] [address] Joyce Loyd, ASSEMBLER MUSICAL EQUIPMENT [address] [place] [address] documented as of this encounter Visit Diagnoses Not on filedocumented in this encounter Care Teams Compound Mixer Relationship Specialty Start Date End Date Lashaun Madison DO [address] [place] [address] PCP - ACO Reach 03/29/23 Nitish Agrawal DO [address] [place] [address] PCP - General Family Medicine 03/13/23 Elliot Elias MD [address] [place] [address] 2, [address] [place] [address] Referring Physician Cardiology 12/04/24 Ranjan Ivory MD [address] [place] [address] [place] [address] Referring Physician Podiatry 12/04/24 documented as of this encounter
--- OUTSIDE RECORDS SUMMARY | 2025-05-29 10:14 | XMS_ITS | Encounter Summary ---
Author Organization [facility] Address [address] [place] [address] Care Team Providers Care Homogenizer Operator Name Role Phone Lashaun Madison DO Unavailable [phone] Nitish Agraawl DO Primary Care Provider [phone] Elliot Elias MD Unavailable [phone] Nisha Ivory MD Unavailable [phone] Encounter Details Date Type Department Care Team [...] Visit [facility] [address] [facility] [address] [place] [phone] Lashaun Madison M, DO [address] [place] [address] 12/07/2025 10:00 AM EST Office Visit [facility] [address] [place] [address] Joyce Loyd, DIVING SUPERVISOR [address] [...] EDT Narrative 05/15/2025 10:51 AM EDT The [address] [address] XRay Report Signed Patient: JANICE PANDYA Jr. MR#: [id number] : 1955 Acct:[id number] Age/Sex: 70 / M ADM Date: 05/15/25 Loc: PST Attending Dr: Nisha Ivory D.P.M. Ordering Physician: Nisha Ivory D.P.M. Date of Service: 05/15/25 Procedure(s): XR chest 2V Accession Number(s): [id number] cc: NITISH AGRAWAL ; Nisha Ivory D.P.M. The [address] [address] Patient Name: JANICE PANDYA MRN: [id number] date: 1955 Sex: M Assigned Patient Location: [facility] Current Patient Location: [facility] Accession/Order Number: [id number] Exam Date: 05/15/2025 10:46 Report Date: 05/15/2025 [...] Owens M.D. 05/15/2025 10:49 AM Dictation Location: [place] [address] Electronically authenticated by: [id number] Y Date: 05/15/2025 10:49 Dictated By: Melani Owens M.D. Signed By: 05/15/25 1051 DD/ 1049 TD/TT: Automation Clerk: Procedure Note Radiology, Radiologist, MD - 05/15/2025 [place] [address] XRay Report Signed Patient: JANICE PANDYA Jr.MR#: [id number] : 1955cct:[id number] Age/Sex: 70 / MADM Date: 05/15/25 Loc: [facility] Attending Dr: Nisha Ivory D.P.M. Ordering Physician: Nisha Ivory D.P.M. Date of Service: 05/15/25 Procedure(s): XR chest 2V Accession Number(s): [id number] cc: NITISH AGRAWAL ; Nisha Ivory D.P.M. [place] [id number] Patient Name: JANICE PANDYA MRN: [id number] date: 1955 Sex: M Assigned Patient Location: [facility] Current Patient Location: [facility] Accession/Order Number: [id number] Exam Date: 05/15/2025 10:46 Report Date: 05/15/2025 [...] Owens M.D. 05/15/2025 10:49 AM Dictation Location: [place] [address] Electronically authenticated by: [id number] Y Date: 0:49 Dictated By: Melani Owens M.D. Signed By:05/15/25 1051 DD/ 1049 TD/TT: Automation Clerk: Generic External Data Provider [facility] Final [...] 0.70 - 1.30 mg/dL TBH TBH EGFR-AF CAMEROONIAN >60 >=60 mL/min/1.7 3m 2 TBH TBH EGFR-NON AF CAMEROONIAN 54(L) >=60 mL/min/1.7 3m 2 TBH BUN CREATININE RATIO 18.9 TBH CALCIUM 8.5 8.5 - 10.1 mg/dL [facility] 05/15/2025 10:3 5 AM EDT 05/15/2025 10:40 AM EDT Narrative [facility] - 05/15/2025 11:26 AM EDT Generic External Data Provider [facility] F inal Result Performing Organization Address [facility] de Phone Number [facility] APTT (05/15/2025 10:35 AM EDT) PARTIAL THROMBOPLASTIN TIME 32.2 22.3 - 36.2 sec TB 05/15/2025 10:3 5 AM EDT 05/15/2025 10:40 AM EDT Narrative [facility] - 05/15/2025 11:18 AM EDT Generic External Data Provider [facility] F inal Result Performing Organization Address [facility] de Phone Number [facility] * SRMCOH PROTHROMBIN TIME INR W/O COUM (05/15/2025 10:35 AM EDT) PROTHROMBIN TIME 11.1 9.0 - 11.6 sec TB TB INR 1.05 [facility] Comment: DESIRED INR: 2.0-3.0 CONDITIONS NOT LISTED BELOW 2.5-3.5 FOR PROSTHETIC HEART VALVE REPLACEMENT 2.5-3.5 RECURRENT THROMBOSIS 05/15/2025 10:3 5 AM EDT 05/15/2025 10:40 AM EDT [facility] - 05/15/2025 11:18 AM EDT Generic External Data Provider [facility] F inal Result Performing Organization Address [facility] de Phone Number [facility] * (ABNORMAL) ALL CBC WITH AUTO DIFF [...] [facility] F inal Result [facility] documented in this encounter Visit Diagnoses Not on filedocumented in this encounter Additional Health Concerns Assessment Noted Time PHQ-9 Depression Total Score: 0 12/04/19 25 11:00 AM EST documented as of this encounter Care Teams Homogenizer Operator Relationship Specialty Start Date End Date Lashaun Madison DO [address] [facility] 230 [place] [address] PCP - ACO Reach 03/29/23 Nitish Agrawal DO [address] [facility] 230 [place] [address] PCP - General Family Medicine 03/13/23 Elliot Elias MD [address] [place] [address] 2, [facility] 250 [place] [address] Referring Physician Cardiology 12/04/24 Nisha Ivory MD [address] [place] [address] [place] [address] Referring Physician Podiatry 12/04/24 documented as of this encounter
--- OUTSIDE RECORDS SUMMARY | 2025-05-29 10:14 | XMS_ITS | Encounter Summary ---
Author Organization [facility] Address [address] [place] [address] Phone Care Team Providers Care Station Mechanic Helper Name Role Phone Nitish Agrawal DO Primary Care Provider [phone] Encounter Details Date Type Department Care Team (Late st Contact Info) Description 06/09/2022 Orders Only [facility] [address] [place] [address] Conversion, Onbase Social History Tobacco Use Types [...] Description 08/04/2025 11:10 AM EDT Office Visit [facility] [address] [facility] [address] [place] [address] Martin Elias DO [address], [address] [place] [address] Scheduled Orders Name Type Priority Associated Diagnoses Orde r Schedule OUTSIDE LAB SCAN Lab Ordered: 06/09/2022 documented as of this encounter Visit Diagnoses Not on filedocumented in this encounter Care Teams Station Mechanic Helper Relationship Specialty Start Date End Date Nitish Agrawal DO [address] [place] [address] PCP - General 09/18/19 documented as of this encounter
--- OUTSIDE RECORDS SUMMARY | 2025-05-29 10:14 | XMS_ITS | Encounter Summary ---
Author Organization [facility] Address [address] [place] [address] Phone Care Team Providers Care Project Management Manager Name Role Phone Nitish Agrawal DO Primary Care Provider [phone] Encounter Details Date Type Department Care Team (Late st Contact Info) Description 01/15/2019 Orders Only [facility] [address] [place] [address] Conversion, Onbase Social History Tobacco Use Types [...] Description 08/04/2025 11:10 AM EDT Office Visit [facility] [address] [facility] [address] [place] [address] Martin Elias DO 703 [facility] 2, [address] [place] [address] Scheduled Orders Name Type Priority Associated Diagnoses Orde r Schedule OUTSIDE LAB SCAN Lab Ordered: 01/15/2019 documented as of this encounter Visit Diagnoses Not on filedocumented in this encounter Care Teams Project Management Manager Relationship Specialty Start Date End Date Nitish Agrawal DO [address] [place] [address] PCP - General 09/18/19 documented as of this encounter
--- OUTSIDE RECORDS SUMMARY | 2025-05-29 10:14 | XMS_ITS | Clinical Summary ---
Author Organization [facility] [employer] Address [id number] [address] [place] [address] Care Team Providers Care Cisco Certified Network Associate Name Role Phone Brittany York Primary Care Provider [phone] Social History Tobacco Use Types Packs/Day Years [...] Medical Devices Not on file Care Teams [employer] Certified Network Associate Relationship Specialty Start Date End Date Brittany York APRN-CNP [address] [place] [address] PCP - General Family Medicine 01/12/21
--- OUTSIDE RECORDS SUMMARY | 2025-05-29 10:14 | XMS_ITS | Clinical Summary ---
Author Organization [facility] Address [address] [place] [address] Phone Care Team Providers Care Griddle Cook Name Role Phone Nitish Agrawal DO Primary Care Provider [phone] Allergies Active Allergy Reactions Criticality Noted Date [...] Type Department Care Team Description 05/07/[address] [address] Franchesca Adan LPN POC 04/11/2025 Refill [facility] [address] [place] [address] Martin Elias, Multiple vessel coronary artery disease; Hypertension, unspecified type 03/17/[address] [place] [address] Franchesca Adan LPN 03/17/[address] [address] Cristin Fulton RN 03/01/[address] [address] Martin Elias, Hyperlipidemia, unspecified hyperlipidemia [...] Description 08/04/2025 11:10 AM EDT Office Visit [address] [address] Martin Elias, DO [address] [place] [address] Health Maintenance Due Date Last [...] patient's age to complete this topic Insurance [facility] MEDICARE SUPPLEMENT MEDICARE PART A AND B Care Teams Griddle Cook Relationship Specialty Start Date End Date Nitish Agrawal DO [address] [place] [address] PCP - General 09/18/19
--- OUTSIDE RECORDS SUMMARY | 2025-05-29 10:14 | XMS_ITS | Encounter Summary ---
Author Organization [facility] Address [address] [place] [address] Care Team Providers Care Field Laboratory Operator Name Role Phone Lashaun Madison Judie DO Unavailable [phone] Nitish Agrawal DO Primary Care Provider [phone] Elliot Elias MD Unavailable [phone] Ranjan Ivory MD Unavailable [phone] Encounter Details Date Type Department Care Team (Late st Contact Info) Description 08/09/2023 Orders Only [facility] [address] [facility] [address] [place] [address] A, Unknown Practice [address] [place], [place] [address] Social History Tobacco Use Types Packs/Day Years [...] [address] [place] [address] Lashaun Madison DO [address] [place] [address] 12/07/2025 10:00 AM EST Office Visit [facility] [address] [place] [address] Joyce Loyd, LAZARO [address] [place] [address] documented as of this encounter Procedures Procedure [...] on filedocumented in this encounter Care Teams Field Laboratory Operator Relationship Specialty Start Date End Date Lashaun Madison DO [address] [place] [address] PCP - ACO Reach 03/29/23 Nitish Agrawal DO [address] [place] [address] PCP - General Family Medicine 03/13/23 Elliot Elias MD 703 [facility] 2, [address] [place] [address] Referring Physician Cardiology 12/04/24 Ranjan Ivory MD [address] [place] [address] Dr LUCAS [place], [facility] Referring Physician Podiatry 12/04/24 documented as of this encounter
--- OUTSIDE RECORDS SUMMARY | 2025-05-29 10:14 | XMS_ITS | Encounter Summary ---
Author Organization [facility] Address [address] [place] [address] Care Team Providers Care Chief Vendor Quality Name Role Phone Lashaun Madison Judie DO Unavailable [phone] Nitish Agrawal DO Primary Care Provider [phone] Elliot Elias MD Unavailable [phone] Ranjan Ivory MD Unavailable [phone] Encounter Details Date Type Department Care Team ([facility] Contact Info) Description 05/15/2025 Abstract [facility] [address] [facility] [address] [place] [address] Nitish Agrawal, [address] [facility] 230 [place] [address] Social History Tobacco Use Types Packs/Day Years [...] Upcoming Encounters Date Type Department Care Team ([facility] Contact Info) Description 09/21/2025 8:30 AM EST Office Visit [facility] [address] [place] [address] Lashaun Madison DO [address] [place] [address] 12/07/2025 10:00 AM EST Office Visit [facility] [address] [place] [address] Joyce Loyd, SALES SOLUTIONS REPRESENTATIVE [address] [place], [place] [id number] documented as of this encounter Visit Diagnoses Not on filedocumented in this encounter Additional Health Concerns Assessment Noted Time PHQ-9 Depression Total Score: 0 12/04/19 11:00 AM EST documented as of this encounter Care Teams Chief Vendor Quality Relationship Specialty Start Date End Date Lashaun Madison DO [address] [place] [address] PCP - ACO Reach 03/29/23 Nitish Agrawal DO [address] [place] [address] PCP - General Family Medicine 03/13/23 Elliot Elias MD 703 [facility] 2, [address] [place] [address] Referring Physician Cardiology 12/04/24 Ranjan Ivory MD [address] [place] [address] [place] [address] Referring Physician Podiatry 12/04/24 documented as of this encounter
--- OUTSIDE RECORDS SUMMARY | 2025-05-29 10:14 | XMS_ITS | Encounter Summary ---
Author Organization [facility] Address [address] [place] [address] Care Team Providers Care Residential Program Worker Name Role Phone Lashaun Madison DO Unavailable [phone] Nitish Agrawal DO Primary Care Provider [phone] Elliot Elias MD Unavailable [phone] Ranjan Ivory MD Unavailable [phone] Encounter Details Date Type Department Care Team (Late st Contact Info) Description 06/30/2023 Abstract [facility] [address] [place] [phone] Kiel Lozano, DPM [address] [place], [place] [id number] Social History Tobacco Use Types Packs/Day Years [...] Visit [facility] [address] [facility] 230 [place] [phone] Lashaun Madison DO [address] [facility] 230 [place] [address] 12/07/2025 10:00 AM EST Office Visit [facility] [address] [place] [address] Joyce Loyd, FORWARDER OPERATOR [address] [place] [address] documented as of this encounter Visit Diagnoses Not on filedocumented in this encounter Care Teams Residential Program Worker Relationship Specialty Start Date End Date Lashaun Madison DO [address] [place] [address] PCP - ACO Reach 03/29/23 Nitish Agrawal DO [address] [place] [address] PCP - General Family Medicine 03/13/23 Elliot Elias MD [address] [place] [address] 2, [address] [place] [address] Referring Physician Cardiology 12/04/24 Ranjan Ivory MD [address] [place] [address] [place] [address] Referring Physician Podiatry 12/04/24 documented as of this encounter
--- OUTSIDE RECORDS SUMMARY | 2025-05-29 10:14 | XMS_ITS | Encounter Summary ---
Author Organization [facility] Address [address] [place] [address] Care Team Providers Care Snow Ranger Name Role Phone Lashaun Madison DO Unavailable [phone] Nitish Agrawal DO Primary Care Provider [phone] Elliot Elias MD Unavailable [phone] Ranjan Ivory MD Unavailable [phone] Encounter Details Date Type Department Care Team (Late st Contact Info) Description 04/09/2023 Orders Only [facility] [address] [place] [address] Nitish Agrawal DO [address] [place] [address] Social History Tobacco Use Types Packs/Day Years [...] 09/21/2025 8:30 AM EST Office Visit [facility] [address] [place] [address] Lashaun Madison DO [address] [place] [address] 12/07/2025 10:00 AM EST Office Visit [facility] [address] [place] [address] Joyce Loyd, RIM TECHNICIAN [address] [facility] 230 [place] [address] documented as of this encounter Procedures Procedure [...] on filedocumented in this encounter Care Teams Snow Ranger Relationship Specialty Start Date End Date Lashaun Madison DO [address] [facility] 230 [place] [address] PCP - ACO Reach 03/29/23 Nitish Agrawal DO [address] [facility] 230 [place] [address] PCP - General Family Medicine 03/13/23 Elliot Elias MD 703 [facility] 2, [facility] 250 [place] [address] Referring Physician Cardiology 12/04/24 Ranjan Ivory MD [address] [place] [address] [place] [address] Referring Physician Podiatry 12/04/24 documented as of this encounter
--- OUTSIDE RECORDS SUMMARY | 2025-05-29 10:14 | XMS_ITS | Encounter Summary ---
Author Organization [facility] Address [address] [place] [address] Phone Care Team Providers Care Testing Coordinator Name Role Phone Nitish Agrawal DO Primary Care Provider [phone] Encounter Details Date Type Department Care Team (Late st Contact Info) Description 03/07/2021 Orders Only [facility] [address] [place] [address] Conversion, Onbase Social History Tobacco Use Types [...] Description 08/04/2025 11:10 AM EDT Office Visit [facility] 7[address] [facility] [address] [place] [address] Martin Elias DO [address], [address] [place] [address] Scheduled Orders Name Type Priority Associated Diagnoses Orde r Schedule OUTSIDE LAB SCAN Lab Ordered: 03/07/2021 documented as of this encounter Visit Diagnoses Not on filedocumented in this encounter Care Teams Testing Coordinator Relationship Specialty Start Date End Date Nitish Agrawal DO [address] [place] [address] PCP - General 09/18/19 documented as of this encounter
--- OUTSIDE RECORDS SUMMARY | 2025-05-29 10:14 | XMS_ITS | Encounter Summary ---
Author Organization [facility] Address [address] [place] [address] Care Team Providers Care Scroll Shear Operator Name Role Phone Lashaun Madison Judie DO Unavailable [phone] Nitish Agrawal DO Primary Care Provider [phone] Elliot Elias MD Unavailable [phone] Ranjan Ivory MD Unavailable [phone] Encounter Details Date Type Department Care Team ([facility] Contact Info) Description 05/15/2025 Abstract [facility] 230 [address] [facility] [address] [place] [address] Nitish Agrawal, [address] [facility] 230 [place] [address] Social History Tobacco Use Types Packs/Day Years [...] Upcoming Encounters Date Type Department Care Team ([facility] Contact Info) Description 09/21/2025 8:30 AM EST Office Visit [facility] [address] [place] [address] Lashaun Madison DO [address] [place] [address] 12/07/2025 10:00 AM EST Office Visit [facility] [address] [place] [address] Joyce Loyd, BED AND BREAKFAST OPERATOR [address] [place], [place] [address] documented as of this encounter Visit Diagnoses Not on filedocumented in this encounter Additional Health Concerns Assessment Noted Time PHQ-9 Depression Total Score: 0 12/04/19 11:00 AM EST documented as of this encounter Care Teams Scroll Shear Operator Relationship Specialty Start Date End Date Lashaun Madison DO [address] [place] [address] PCP - ACO Reach 03/29/23 Nitish Agrawal DO [address] [place] [address] PCP - General Family Medicine 03/13/23 Elliot Elias MD 703 [facility] 2, [address] [place] [address] Referring Physician Cardiology 12/04/24 Ranjan Ivory MD [address] [place] [address] [place] [address] Referring Physician Podiatry 12/04/24 documented as of this encounter
--- OUTSIDE RECORDS SUMMARY | 2025-05-29 10:14 | XMS_ITS | Encounter Summary ---
Author Organization [facility] Address [address] [place] [address] Care Team Providers Care Tools And Parts Attendant Name Role Phone Lashaun Madison Judie DO Unavailable [phone] Nitish Agrawal DO Primary Care Provider [phone] Elliot Elias MD Unavailable [phone] Ranjan Ivory MD Unavailable [phone] Encounter Details Date Type Department Care Team (Late st Contact Info) Description 02/19/2024 Abstract [facility] 230 [address] [facility] [address] [place] [address] Nitish Agrawal, [address] [facility] 230 [place] [address] Social History Tobacco Use Types Packs/Day Years [...] 09/21/2025 8:30 AM EST Office Visit [facility] [address] [place] [address] Lashaun Madison, DO [address] [place] [address] 12/07/2025 10:00 AM EST Office Visit [facility] [address] [place] [address] Joyce Loyd, SALT WASHER [employer] [address] [place] [address] documented as of this encounter Visit Diagnoses Not on filedocumented in this encounter Care Teams Tools And Parts Attendant Relationship Specialty Start Date End Date Lashaun Madison DO [address] [place] [address] PCP - ACO Reach 03/29/23 Nitish Agrawal DO [address] [place] [address] PCP - General Family Medicine 03/13/23 Elliot Elias MD 703 [facility] 2, [address] [place] [address] Referring Physician Cardiology 12/04/24 Ranjan Ivory MD [address] [place] [address] [place] [address] Referring Physician Podiatry 12/04/24 documented as of this encounter
--- OUTSIDE RECORDS SUMMARY | 2025-05-29 10:14 | XMS_ITS | Encounter Summary ---
Author Organization [facility] Address [address] [place] [address] Care Team Providers Care Thread Tool Grinder Set Up Operator Name Role Phone Lashaun Madison DO Unavailable [phone] Nitish Agrawal DO Primary Care Provider [phone] Elliot Elias MD Unavailable [phone] Ranjan Ivory MD Unavailable [phone] Encounter Details Date Type Department Care Team (Late st Contact Info) Description 07/30/2023 Abstract [facility] [address] [place] [phone] Kiel Lozano, DPM [address] [place] [address] Social History Tobacco Use Types Packs/Day Years [...] Visit [facility] [address] [facility] 230 [place] [address] Lashaun Madison DO [address] [facility] 230 [place] [address] 12/07/2025 10:00 AM EST Office Visit [facility] [address] [place] [address] Joyce Loyd, FICTION AND NONFICTION PROSE WRITER [address] [place] [address] documented as of this encounter Visit Diagnoses Not on filedocumented in this encounter Care Teams Thread Tool Grinder Set Up Operator Relationship Specialty Start Date End Date Lashaun Madison DO [address] [place] [address] PCP - ACO Reach 03/29/23 Nitish Agrawal DO [address] [place] [address] PCP - General Family Medicine 03/13/23 Elliot Elias MD [address] [place] [address] 2, [address] [place] [address] Referring Physician Cardiology 12/04/24 Ranjan Ivory MD [address] [place] [address] [place] [address] Referring Physician Podiatry 12/04/24 documented as of this encounter
--- OUTSIDE RECORDS SUMMARY | 2025-05-29 10:14 | XMS_ITS | Encounter Summary ---
Author Organization [facility] Address [address] [place] [address] Care Team Providers Care Heat Treat Furnace Operator Name Role Phone Lashaun Madison DO Unavailable [phone] Nitish Agrawal DO Primary Care Provider [phone] Elliot Elias MD Unavailable [phone] Ranjan Ivory MD Unavailable [phone] Encounter Details Date Type Department Care Team (Late st Contact Info) Description 08/06/[address] [facility] [address] [facility] [address] [place] [address] Lashaun Madison, [address] [facility] 230 [place] [address] Social History Tobacco Use Types Packs/Day Years [...] 09/21/2025 8:30 AM EST Office [facility] [address] [place] [address] Lashaun Madison DO [address] [place] [address] 12/07/2025 10:00 AM EST Office [facility] [address] [place] [address] Joyce Loyd NP [address] [place] [address] documented as of this encounter Visit Diagnoses Not on filedocumented in this encounter Care Teams Heat Treat Furnace Operator Relationship Specialty Start Date End Date Lashaun Madison DO [address] [place] [address] PCP - ACO Reach 03/29/23 Nitish Agrawal DO [address] [place] [address] PCP - General Family Medicine 03/13/23 Elliot Elias MD 703 [facility] 2, [address] [place] [address] Referring Physician Cardiology 12/04/24 Ranjan Ivory MD [address] [place] [address] [place] [address] Referring Physician Podiatry 12/04/24 documented as of this encounter
--- OUTSIDE RECORDS SUMMARY | 2025-05-29 10:14 | XMS_ITS | Encounter Summary ---
Author Organization [facility] Address [address] [place] [address] Care Team Providers Care Advertising Material Distributor Name Role Phone Lashaun Madison Judie DO Unavailable [phone] Nitish Agrawal DO Primary Care Provider [phone] Elliot Elias MD Unavailable [phone] Ranjan Ivory MD Unavailable [phone] Encounter Details Date Type Department Care Team (Late st Contact Info) Description 10/15/2023 Abstract [facility] [address] [place] [phone] Kiel Lozano, DPM [address] [place], [place] [phone] Social History Tobacco Use Types Packs/Day Years [...] 09/21/2025 8:30 AM EST Office Visit [facility] [address] [place] [address] Lashaun Madison, DO [address] [place] [address] 12/07/2025 10:00 AM EST Office Visit [facility] [address] [place] [address] Joyce oLyd, YARN DUMPER [address] [place] [address] documented as of this encounter Visit Diagnoses Not on filedocumented in this encounter Care Teams Advertising Material Distributor Relationship Specialty Start Date End Date Lashaun Madison, DO [address] [place] [address] PCP - ACO Reach 03/29/23 Nitish Agrawal DO [address] [place] [address] PCP - General Family Medicine 03/13/23 Elliot Elias MD 703 [facility] 2, [address] [place] [address] Referring Physician Cardiology 12/04/24 Ranjan Ivory MD [address] [place] [address] [place] [address] Referring Physician Podiatry 12/04/24 documented as of this encounter
== END 2025-05-29 10:12 | disposition home or self-care (01) ==
LOC: WC 10:11
PROVIDERS: PCP Family Medicine; Visit Provider Physician Assistant
DX: E11.621 Type 2 diabetes mellitus with foot ulcer (principal); L97.425 Non-pressure chronic ulcer of left heel and midfoot with muscle involvement without evidence of necrosis; L97.522 Non-pressure chronic ulcer of other part of left foot with fat layer exposed
CPT/HCPCS: G0463

== ENCOUNTER 2025-06-04 13:45 | Outpatient (OUT) | payer MEDICARE, OTHER, SELFPAY ==
--- OUTSIDE RECORDS SUMMARY | 2025-06-04 13:49 | XMS_ITS | Clinical Summary ---
Author Organization [facility] Address [address] [facility] [place] [address] Care Team Providers Care Certified Ethical Hacker Name Role Phone Lashaun Madison Judie RICH Unavailable [phone] Nitish Martin DO Primary Care Provider [phone] Elliot Elias MD Unavailable [phone] Nisha Ivory MD Unavailable [phone] Allergies No known active allergies Medications isosorbide [...] chest pain. Active Blood Glucose Monitoring Suppl ([employer] Survival Verio Flex System) w/Device kit Active glucose [...] DAY 180 tablet 1 02/26/20 25 Active sertraline (Zoloft) 50 MG tabletIndications: Anxiety TAKE 1 TABLET BY MOUTH EVERY DAY 90 tablet 1 05/25/20 25 Active dapagliflozin (Farxiga) 5 MGIndications:Type 2 diabetes mellitus with other circulatory complications (HCC) TAKE 1 TABLET BY MOUTH EVERY DAY 90 tablet 3 06/01/20 25 Active sertraline (Zoloft) 50 MG tabletIndications: Anxiety Take 1 tablet (50 mg) by mouth Daily 30 tablet 5 01/30/20 25 025 Discontinued dapagliflozin (Farxiga) 5 MGIndications:Type 2 diabetes mellitus with other circulatory complications (HCC) TAKE 1 TABLET BY MOUTH EVERY DAY 90 tablet 04/ 025 Discontinued Active Problems Problem Noted Date [...] unspecified 03/29/2016 Atherosclerotic heart diseas e of [place] coronary artery without angina pectoris 03/29/2016 Gastro-esophageal reflux disease without esophag itis 03/29/2016 Osteoarthritis of knee, unspecified 03/29/2016 Difficulty in walking, not elsewhere classified 03/29/2016 Muscle weakness (generalized) 03/29/2016 Other reduced mobility 03/29/2016 Diabetes mellitus due to und erlying condition with unspecified complications 03/29/2016 Difficulty walking 03/29/2016 Muscle weakness 03/29/2016 Reduced mobility 03/29/2016 Encounters Date Type Department Care Team Description 05/30/2025 Refill [facility] [address] [place] [phone] Lashaun Madison, DO Type 2 diabetes mellitus with other circulatory complications (HCC) 05/24/2025 Refill [facility] [address] [place] [address] Robin Caicedo, PA Anxiety 05/20/2025 Clinisync Result Encounter NOMS External Department Unsolicited Provider, Generic External Data 05/19/2025 Abstract [facility] [address] [place] [address] Nitish Martin, DO 05/18/2025 Clinisync Result Encounter NOMS External Department Unsolicited Provider, Generic External Data 05/15/2025 Clinisync Result Encounter NOMS External Department Unsolicited Provider, Generic External Data 05/15/2025 Abstract [facility] [address] [place] [address] Nitish Martin, DO 05/15/2025 Abstract [facility] [address] [place] [address] Nitish Martin, DO 05/15/2025 Clinisync Result Encounter NOMS External Department Unsolicited Provider, Generic External Data 04/22/2025 Clinisync Result Encounter NOMS External Department Unsolicited Provider, Generic External Data 03/27/2025 8:45 AM EDT Office Visit [facility] [address] [place] [address] Lashaun Madison, DO Type 2 diabetes mellitus with stage 3a chronic kidney disease, without long-term current use of insulin (HCC); Type 2 diabetes mellitus with other circulatory complications (HCC) 03/27/2025 [facility] [address] [place] [address] Joyce Loyd, LAZARO Colon cancer screening (Primary Dx) 03/27/2025 Travel from Last 3 Months Immunizations Immunization [...] Description 09/21/2025 8:30 AM EST Office Visit [facility] [address] [place] [address] Lashaun Madison DO [address] [place] [address] 12/07/2025 10:00 AM EST Office Visit [facility] [address] [place] [phone] Joyce Loyd NP [address] [place] [address] Health Maintenance Due Date Last Done Comments [...] EDT Narrative 05/20/2025 8:23 AM EDT The [address] [address] XRay Report Signed Patient: JANICE PANDYA Jr. MR#: [id number] : 1955 Acct:[id number] Age/Sex: 70 / M ADM Date: 05/19/25 Loc: SURGOUT Attending Dr: Nisha Ivory D.P.M. Ordering Physician: Nisha Ivory D.P.M. Date of Service: 05/19/25 Procedure(s): XR foot LT min 3V Accession Number(s): [id number] cc: NITISH MARTIN ; Nisha Ivory D.P.M. [address] [address] Patient Name: JANICE PANDYA MRN: [id number] date: 1955 Sex: M Assigned Patient Location: [facility] Current Patient Location: Accession/Order Number: [id number] Exam Date: 05/20/2025 08:15 Report Date: 05/20/2025 [...] Owens M.D. 05/20/2025 8:21 AM Dictation Location: [place] [address] Electronically authenticated by: [id number] Y Date: 05/20/2025 08:21 Dictated By: Melani Owens M.D. Signed By: 05/20/25822 DD/ 0 TD/TT: Book Reviewer: Procedure Note Radiology, Radiologist, - 05/20/2025 [place] [address] XRay Report Signed Patient: JANICE PANDYA Jr.MR#: [id number] : 1955cct:[id number] Age/Sex: 70 / MADM Date: 05/19/25 Loc: SURGOUT Attending Dr: Nisha Ivory D.P.M. Ordering Physician: Nisha Ivory D.P.M. Date of Service: 05/19/25 Procedure(s): XR foot LT min 3V Accession Number(s): [id number] cc: NITISH MARTIN ; Nisha Ivory D.P.M. The [place] [id number] Patient Name: JANICE PANDYA MRN: [id number] date: 1955 Sex: M Assigned Patient Location: [facility] Current Patient Location: Accession/Order Number: [id number] Exam Date: 05/20/2025 08:15 Report Date: 05/20/2025 [...] Owens M.D. 05/20/2025 8:21 AM Dictation Location: [place] [address] Electronically authenticated by: [id number] Y Date: 508:21 Dictated By: Melani Owens M.D. Signed By:05/20/25822 DD/ 0 TD/TT: Book Reviewer: us Generic External Data Provider [facility] Final Result * SEGMENTAL BLOOD PRESSURE (05/18/2025 8:40 AM EDT) Anatomical Region Laterality Modality Radiographic Kelly ging 05/18/2025 8:40 AM EDT Narrative 05/19/2025 12:57 [place] [address] Cardiology Report Signed Patient: JANICE PANDYA Jr. MR#: [id number] : 1955 Acct:[id number] Age/Sex: 70 / M ADM Date: 05/18/25 Loc: CARD Attending Dr: Gisela HARRIS Ordering Physician: Gisela Crandall Date of Service: 05/18/25 Procedure(s): CA segmental UE or LE ANTHONY Accession Number(s): [id number] cc: NITISH MARTIN The [facility] Test Date: 2025-05-18 Pat Name: JANICE PANDYA Department: Room: - Gender: Male Sustainability Director: : 1955 Requested By: Gisela Crandall Order Number: [id number] Reading MD: DEBRA FAITH Interpretive Statements Normal [...] 05/19/25 1257 05/19/25 1257 DD/ 0840 TD/TT: Book Reviewer: Procedure Note Radiology, Radiologist, - 05/19/2025 [place] [address] Cardiology Report Signed Patient: JANICE PANDYA Jr.MR#: [id number] : 6Acct:[id number] Age/Sex: 70 / MADM Date: 05/18/25 Loc: CARD Attending Dr: Gisela HARRIS Ordering Physician: Gisela Crandall Date of Service: 05/18/25 Procedure(s): CA segmental UE or LE ANTHONY Accession Number(s): [id number] cc: NITISH MARTIN ; Gisela Crandall The [facility] Test Date: 2025-05-18 Pat Name: JANICE PANDYA Department: Room: - Gender: Male Sustainability Director: : 1955 Requested By: Gisela Crandall Order Number: [id number] Reading MD: DEBRA FAITH Interpretive Statements Normal [...] By:05/19/25 1257 05/19/25 1257 DD/ 0840 TD/TT: Book Reviewer: Generic External Data Provider IMG XR PROCEDURES Final Result * XR CHEST 2V (05/15/2025 10:49 AM EDT) Anatomical Region Laterality Modality Other 05/15/2025 10:4 9 AM EDT Narrative 05/15/2025 10:51 [place] [address] XRay Report Signed Patient: JANICE PANDYA Jr. MR#: [id number] : 1955 Acct:[id number] Age/Sex: 70 / M ADM Date: 05/15/25 Loc: [facility] Attending Dr: Nisha Ivory D.P.M. Ordering Physician: Nisha Ivory D.P.M. Date of Service: 05/15/25 Procedure(s): XR chest 2V Accession Number(s): [id number] cc: NITISH MARTIN ; Nisha Ivory D.P.M. [place] [id number] Patient Name: JANICE PANDYA MRN: [id number] date: 1955 Sex: M Assigned Patient Location: [facility] Current Patient Location: [facility] Accession/Order Number: [id number] Exam Date: 05/15/2025 10:46 Report Date: 05/15/2025 [...] Owens M.D. 05/15/2025 10:49 AM Dictation Location: [place] [address] Electronically authenticated by: [id number] Y Date: 05/15/2025 10:49 Dictated By: Melani Owens M.D. Signed By: 05/15/25 1051 DD/ 1049 TD/TT: Book Reviewer: Procedure Note Radiology, Radiologist, MD - 05/15/2025 [place] [address] XRay Report Signed Patient: JANICE PANDYA Jr.MR#: [id number] : 1955cct:[id number] Age/Sex: 70 / MADM Date: 05/15/25 Loc: [facility] Attending Dr: Nisha Ivory D.P.M. Ordering Physician: Nisha Ivory D.P.M. Date of Service: 05/15/25 Procedure(s): XR chest 2V Accession Number(s): [id number] cc: NITISH MARTIN ; Nisha Ivory D.P.M. The [place] [address] Patient Name: JANICE PANDYA MRN: [id number] date: 1955 Sex: M Assigned Patient Location: [facility] Current Patient Location: [facility] Accession/Order Number: [id number] Exam Date: 05/15/2025 10:46 Report Date: 05/15/2025 [...] Owens M.D. 05/15/2025 10:49 AM Dictation Location: [place] [address] Electronically authenticated by: [id number] Y Date: 0:49 Dictated By: Melani Owens M.D. Signed By:05/15/25 1051 DD/ 1049 TD/TT: Book Reviewer: Generic External Data Provider [facility] Final [...] External Data Provider [facility] F [facility]al [facility] * [facility] APTT (05/15/2025 10:35 AM EDT) PARTIAL THROMBOPLASTIN TIME 32.2 22.3 - 36.2 sec TB 05/15/2025 10:3 5 AM EDT 05/15/2025 10:40 AM EDT Narrative [facility] - 05/15/2025 11:18 AM EDT Generic External Data Provider [facility] * (ABNORMAL) ALL CBC WITH AUTO DIFF (05/15/2025 10:35 AM EDT) TBH WBC 7.1 4.0 - 11.0 10 3/uL [...] External Data Provider [facility] F inal [facility] * (ABNORMAL) ALL BASIC METABOLIC PANEL (05/15/2025 [...] 0.70 - 1.30 mg/dL TBH TBH EGFR-AF [place] >60 >=60 mL/min/1.7 3m 2 TBH TBH EGFR-NON AF [place] 54(L) >=60 mL/min/1.7 3m 2 TBH BUN CREATININE RATIO 18.9 TBH CALCIUM 8.5 8.5 - 10.1 mg/dL TBH 05/15/2025 10:3 5 AM EDT 05/15/2025 10:40 AM EDT Narrative [facility] - 05/15/2025 11:26 AM EDT Generic External Data Provider [facility] F inal Result Performing Organization Address City/State/[facility] Co de Phone Number [facility] * ECG 12-LEAD (05/15/2025 8:31 AM EDT) Anatomical Region Laterality Modality Other 05/15/2025 8:31 AM EDT Narrative 05/19/2025 4:10 [place] [address] Electrocardiograph Report Signed Patient: JANICE PANDYA Jr. MR#: [id number] : 1955 Acct:[id number] Age/Sex: 70 / M ADM Date: 05/15/25 Loc: PST Attending Dr: Nisha Ivory D.P.M. Ordering Physician: Nisha Ivory D.P.M. Date of Service: 05/15/25 Procedure(s): ECG 12 lead Accession Number(s): [id number] cc: [facility] Test Date: 2025-05-15 Pat Name: JANICE PANDYA Department: Room: - Gender: Male Sustainability Director: : 1955 Requested By: NISHA IVORY Order Number: [id number] Reading MD: DEBRA FAITH Measurements Intervals [place] Rate: 63 P: 21 [place]: 288 QRS: 35 QRSD: 114 T: 146 [...] Signed By: 05/19/25 1610 DD/ 0831 TD/TT: Book Reviewer: Procedure Note Radiology, Radiologist, MD - 05/19/2025 [place] [address] Electrocardiograph Report Signed Patient: JANICE PANDYA Jr.MR#: [id number] : 1955cct:[id number] Age/Sex: 70 / MADM Date: 05/15/25 Loc: PST Attending Dr: Nisha Ivory D.P.M. Ordering Physician: Nisha Ivory D.P.M. Date of Service: 05/15/25 Procedure(s): ECG 12 lead Accession Number(s): [id number] cc: The [facility] Test Date: 2025-05-15 Pat Name: JANICE PANDYA Department: Room: - Gender: Male Sustainability Director: : 1955 Requested By: NISHA IVORY Order Number: [id number] Reading MD: DEBRA FAITH Measurements Intervals [place] Rate: 63 P: 21 [place]: 288 QRS: 35 QRSD: 114 T: 146 [...] M.D. Signed By:05/19/25 1610 DD/ 0831 TD/TT: Book Reviewer: us Generic External Data Provider [facility] [...] - 12/02/2024 10:07 AM EST Performed at: [facility] [id number] Lead Teller: Leonardo Stevens PhD, Phone: [phone] us Lashaun Madison DO LAB URINE ORDERABLES Final Result [facility] * Color Fundus Photography - OU - Both Eyes (06/27/2022 12:00 PM EDT) Anatomical Region Laterality Modality Head Fundus Photograp hy 06/27/2022 12:0 0 PM EDT Narrative 06/27/2022 12:00 PM EDT PERFORMED AT [facility] LOCATION:[id number] [facility] Procedure Note CONVERSION, GENERIC - 03/21/2023 PERFORMED AT [facility] LOCATION:[id number] [facility] us Lashaun Madison DO OPHTH PHOTOGRAPHY Final [...] Calle et al, N Engl J Med 2014;370(14):1634-6413) The normal value (reference range) for this assay is negative. COLOGUARD RE-SCREENING RECOMMENDATION: Periodic colorectal cancer screening is an important part of preventive healthcare for asymptomatic individuals at average risk for colorectal cancer. Following a negative Cologuard result, the [place] Cancer Society and U.S. Multi-Society Task Force screening guidelines recommend a Cologuard re-screening interval of 3 years. References: [place] Cancer Society Guideline for Colorectal Cancer Screening: https://www.cancer.org/cancer/zswjd-ubrwqa-qblxhi/bnstqskgo-khdczacuk-ceoaqag/ac s-rec ommendations.html.; [place] DK, Oren CR, Harvey RomanK, Colorectal Cancer Screening: Recommendations for Physicians and Patients from the U.S. Multi-Society Task Force on Colorectal Cancer Screening , Am J Gastroenterology 2017; 112:5992-7635. TEST DESCRIPTION: Composite algorithmic analysis of stool [...] Calle et al, N Engl J Med 2014;370(14):8186-1621.) Cologuard may produce a false negative or false positive result (no colorectal cancer or precancerous polyp present at colonoscopy follow up). A negative Cologuard test result does not guarantee the absence of CRC or advanced adenoma (pre-cancer). The current Cologuard screening interval is every 3 years. ([place] Cancer Society and U.S. Multi-Society Task Force). Cologuard performance data in a 10,000 patient pivotal study using colonoscopy as the reference method can be accessed at the following location: www.[employer].Audio Network/results. Additional description of the Cologuard test process, warnings and precautions can be found at www.cologuard.com. 03/27/2022 us Robin HARRIS [facility] MOLECULAR DIAGNOSTICS ORDERA BLESally Final Result [facility] from Last 3 Months or Most Recently Relevant to Health Maintenance Insurance [employer] [place] Care Teams Certified Ethical Hacker Relationship Specialty Start Date End Date Lashaun Madison DO [address] [facility] [address] [place] [address] PCP - ACO Reach 03/29/23 Nitish Martin DO [address] [place] [address] PCP - General Family Medicine 03/13/23 Elliot Elias MD [address] [facility] [address] [place] [address] Referring Physician Cardiology 12/04/24 Nisha Ivory MD [address] [place] [address] [place] [address] Referring Physician Podiatry 12/04/24
--- OUTSIDE RECORDS SUMMARY | 2025-06-04 13:49 | XMS_ITS | Encounter Summary ---
Author Organization [facility] Address [address] [place] [address] Care Team Providers Care Manager Urology Name Role Phone Lashaun Madison Judie DO Unavailable [phone] Nitish Agrawal DO Primary Care Provider [phone] Elliot Elias MD Unavailable [phone] Ranjan Ivory MD Unavailable [phone] Encounter Details Date Type Department Care Team (Late st Contact Info) Description 05/19/2025 Abstract [facility] [place] [facility] [address] [facility] [address] [place] [address] Nitish Agrawal, [address] [facility] [address] [place] [address] Social History Tobacco Use Types Packs/Day Years [...] 09/21/2025 8:30 AM EST Office Visit [facility] [place] [facility] [address] [place] [address] Lashaun Madison DO [address] [place] [address] 12/07/2025 10:00 AM EST Office Visit [facility] [place] [facility] [address] [place] [address] Joyce Loyd, LAZARO [address] [place] [address] documented as of this encounter Visit Diagnoses Not on filedocumented in this encounter Additional Health Concerns Assessment Noted Time PHQ-9 Depression Total Score: 0 12/04/19 11:00 AM EST documented as of this encounter Care Teams Manager Urology Relationship Specialty Start Date End Date Lashaun Madison DO [address] [place] [address] PCP - ACO Reach 03/29/23 Nitish Agrawal DO [address] [place] [address] PCP - General Family Medicine 03/13/23 Elliot Elias MD [address] [facility] [address], [address] [place] [address] Referring Physician Cardiology 12/04/24 Ranjan Ivory MD [address] [place] [address] [place] [address] Referring Physician Podiatry 12/04/24 documented as of this encounter
--- OUTSIDE RECORDS SUMMARY | 2025-06-04 13:49 | XMS_ITS | Encounter Summary ---
Author Organization [facility] Address [address] [place] [address] Care Team Providers Care Shoe Patternmaker Name Role Phone Lashaun Madison Judie DO Unavailable [phone] Nitish Agrawal DO Primary Care Provider [phone] Elliot Elias MD Unavailable [phone] Ranjan Ivory MD Unavailable [phone] Reason for Visit * Reason Comments Med Refill Encounter Details Date Type Department Care Team (Late st Contact Info) Description 05/24/2025 Refill [facility] [address] [facility] [address] [place] [phone] Robin Caicedo PA [address] [facility] [address] [place] [address] Anxiety Social History Tobacco Use Types Packs/Day [...] 09/21/2025 8:30 AM EST Office Visit [facility] [address] [place] [address] Lashaun Madison DO [address] [place] [address] 12/07/2025 10:00 AM EST [facility] [address] [place] [address] Joyce Loyd NP [address] [place] [address] documented as of this encounter Visit Diagnoses Diagnosis Anxiety Anxiety state, unspecified documented in this encounter Additional Health Concerns Assessment Noted Time PHQ-9 Depression Total Score: 0 12/04/19 11:00 AM EST documented as of this encounter Care Teams Shoe Patternmaker Relationship Specialty Start Date End Date Lashaun Madison DO [address] [place] [address] PCP - ACO Reach 03/29/23 Nitish Agrawal DO [address] [place] [address] PCP - General Family Medicine 03/13/23 Elliot Elias MD [address] [facility] [address] [address] [place] [address] Referring Physician Cardiology 12/04/24 Ranjan Ivory MD [address] [place] [address] [place] [address] Referring Physician Podiatry 12/04/24 documented as of this encounter
--- OUTSIDE RECORDS SUMMARY | 2025-06-04 13:49 | XMS_ITS | Encounter Summary ---
Author Organization [facility] Address [address] [place] [address] Care Team Providers Care Band Saw Runner Name Role Phone Lashaun Madison Judie DO Unavailable [phone] Nitish Agrawal DO Primary Care Provider [phone] Elliot Elias MD Unavailable [phone] Ranjan Ivory MD Unavailable [phone] Encounter Details Date Type Department Care Team (Late st Contact Info) Description 12/04/2024 Abstract [facility] [place] [facility] [address] [facility] [address] [place] [address] Nitish Agrawal, [address] [facility] [address] [place] [address] Social History Tobacco Use Types Packs/Day Years [...] 09/21/2025 8:30 AM EST Office Visit [facility] [address] [place] [address] Lashaun Madison DO [address] [place] [address] 12/07/2025 10:00 AM EST Office Visit [facility] [place] [facility] [address] [place] [address] Joyce Loyd, GRADUATE STUDENT [address] [place] [address] documented as of this encounter Visit Diagnoses Not on filedocumented in this encounter Additional Health Concerns Assessment Noted Time PHQ-9 Depression Total Score: 0 12/04/19 11:00 AM EST documented as of this encounter Care Teams Band Saw Runner Relationship Specialty Start Date End Date Lashaun Madison DO [address] [place] [address] PCP - ACO Reach 03/29/23 Nitish Agrawal DO [address] [place] [address] PCP - General Family Medicine 03/13/23 Elliot Elias MD [address] [facility] [address], [address] [place] [address] Referring Physician Cardiology 12/04/24 Ranjan Ivory MD [address] [place] [address] [place] [address] Referring Physician Podiatry 12/04/24 documented as of this encounter
--- OUTSIDE RECORDS SUMMARY | 2025-06-04 13:50 | XMS_ITS | Encounter Summary ---
Author Organization [facility] Address [address] [place] [address] Care Team Providers Care Technician Inventory Specialist Name Role Phone Lashaun Madison DO Unavailable [phone] Nitish Agrawal DO Primary Care Provider [phone] Elliot Elias MD Unavailable [phone] Ranjan Ivory MD Unavailable [phone] Reason for Visit * Reason Comments Med Refill Encounter Details Date Type Department Care Team (Late st Contact Info) Description [facility] [address] [facility] [address] [place] [address] Lashaun Madison, DO [address] [facility] [address] [place] [address] Type 2 diabetes mellitus with other circulatory [...] 09/21/2025 8:30 AM EST Office Visit [facility] [address] [place] [address] Lashaun Madison DO [address] [place] [address] 12/07/2025 10:00 AM EST Office Visit [facility] [address] [place] [address] Joyce Loyd NP [address] [place] [address] documented as of this encounter Visit Diagnoses Diagnosis Type 2 diabetes mellitus with other circulatory complications (HCC) documented in this encounter Care Teams Technician Inventory Specialist Relationship Specialty Start Date End Date Lashaun Madisno DO [address] [place] [address] PCP - ACO Reach 03/29/23 Nitish Agrawal DO [address] [place] [address] PCP - General Family Medicine 03/13/23 Elliot Elias MD [facility] [facility] [address] [place] [address] Referring Physician Cardiology 12/04/24 Ranjan Ivory MD [address] [place] [address] [place] [address] Referring Physician Podiatry 12/04/24 documented as of this encounter
--- OUTSIDE RECORDS SUMMARY | 2025-06-04 13:50 | XMS_ITS | Encounter Summary ---
Author Organization [facility] Address [address] [place] [address] Care Team Providers Care Superintendent Overhead Distribution Name Role Phone Lashaun Madison Judie DO Unavailable [phone] Nitish Agrawal DO Primary Care Provider [phone] Elliot Elias MD Unavailable [phone] Ranjan Ivory MD Unavailable [phone] Encounter Details Date Type Department Care Team ([facility] Contact Info) Description 10/15/2023 Abstract [facility] [address] [place] [phone] Kiel Lozano, DPJudie [address] [place], [place] [phone] Social History Tobacco Use Types Packs/Day Years [...] Care Team ([facility] Contact Info) Description 09/21/2025 8:30 AM EST Office Visit [facility] [place] [facility]1] [address] [place] [address] Lashaun Madison DO [address] [place] [address] 12/07/2025 10:00 AM EST Office Visit [facility] [place] [facility][1] [address] [place] [address] Joyce Loyd, BIOLOGY DEPARTMENT CHAIR [address] [place] [address] documented as of this encounter Visit Diagnoses Not on filedocumented in this encounter Care Teams Superintendent Overhead Distribution Relationship Specialty Start Date End Date Lashaun Madison DO [address] [place] [address] PCP - ACO Reach 03/29/23 Nitish Agrawal DO [address] [place] [address] PCP - General Family Medicine 03/13/23 Elliot Elias MD 703 [facility] 2, [address] [place] [address] Referring Physician Cardiology 12/04/24 Ranjan Ivory MD [address] [place] [address] [place] [address] Referring Physician Podiatry 12/04/24 documented as of this encounter
--- OUTSIDE RECORDS SUMMARY | 2025-06-04 13:50 | XMS_ITS | Encounter Summary ---
Author Organization [facility] Address [address] [place] [address] Phone Care Team Providers Care Email Campaign Specialist Name Role Phone Nitish Agrawal DO Primary Care Provider [phone] Encounter Details Date Type Department Care Team (Late st Contact Info) Description 11/07/2021 Orders Only [facility] LEGACY [address] [place] [address] Conversion, Onbase Social History Tobacco Use Types [...] Description 08/04/2025 11:10 AM EDT Office Visit [facility] [address] [employer] [place] [address] Martin Elias DO [address], [address] [place] [address] Scheduled Orders Name Type Priority Associated Diagnoses Orde r Schedule OUTSIDE LAB SCAN Lab Ordered: 11/07/2021 documented as of this encounter Visit Diagnoses Not on filedocumented in this encounter Care Teams Email Campaign Specialist Relationship Specialty Start Date End Date Nitish Agrawal DO [address] [place] [address] PCP - General 09/18/19 documented as of this encounter
--- OUTSIDE RECORDS SUMMARY | 2025-06-04 13:50 | XMS_ITS | Encounter Summary ---
Author Organization [facility] Address [address] [place] [address] Care Team Providers Care Kennel Keeper Name Role Phone Lashaun Madison DO Unavailable [phone] Nitish Agrawal DO Primary Care Provider [phone] Elliot Elias MD Unavailable [phone] Ranjan Ivory MD Unavailable [phone] Encounter Details Date Type Department Care Team ([facility] Contact Info) Description 02/19/2024 Abstract [facility] [place] [facility] [address] [facility] [address] [place] [address] Lashaun Madison, DO [address] [facility] 230 [place] [address] Social History Tobacco Use Types Packs/Day Years [...] Upcoming Encounters Date Type Department Care Team ([facility] Contact Info) Description 09/21/2025 8:30 AM EST Office Visit [facility] [place] [facility] [address] [place] [address] Lashaun Madison DO [address] [place] [address] 12/07/2025 10:00 AM EST Office Visit [facility] [place] [facility] [address] [place] [address] Joyce Loyd, WILDLIFE CONSERVATION PROFESSOR [address] [place] [address] documented as of this encounter Visit Diagnoses Not on filedocumented in this encounter Care Teams Kennel Keeper Relationship Specialty Start Date End Date Lashaun Madison DO [address] [place] [address] PCP - ACO Reach 03/29/23 Nitish Agrawal DO [address] [place] [address] PCP - General Family Medicine 03/13/23 Elliot Elias MD 703 [facility] 2, [address] [place] [address] Referring Physician Cardiology 12/04/24 Ranjan Ivory MD [address] [place] [address] [place] [address] Referring Physician Podiatry 12/04/24 documented as of this encounter
--- OUTSIDE RECORDS SUMMARY | 2025-06-04 13:50 | XMS_ITS | Encounter Summary ---
Author Organization [facility] Address [address] [place] [address] Care Team Providers Care Potable Water Treatment Operator Name Role Phone Lashaun Madison DO Unavailable [phone] Nitish Agrawal DO Primary Care Provider [phone] Elliot Elias MD Unavailable [phone] Ranjan Ivory MD Unavailable [phone] Reason for Visit * Reason Comments Med Refill Encounter Details Date Type Department Care Team (Late st Contact Info) Description 05/30/2025 Refill [facility] [place] [facility] [address] [place] [address] Lashaun Madison, DO [address] [facility] [address] [place] [address] Type 2 diabetes mellitus with other circulatory [...] encounter Miscellaneous Notes * Telephone Encounter - Zoie Del Real LPN - 06/01/2025 11:13 AM EDT Last ov 03/27/2025 RX sent in per Dr Wilks documented in this encounter Plan of Treatment Upcoming Encounters Date Type Department Care Team (Late st Contact Info) Description 09/21/2025 8:30 AM EST Office Visit [facility] [address] [place] [address] Lashaun Madison DO [address] [place] [address] 12/07/2025 10:00 AM EST Office Visit [facility] [address] [place] [address] Joyce Loyd NP [address] [place] [address] documented as of this encounter Visit Diagnoses Diagnosis Type 2 diabetes mellitus with other circulatory complications (HCC) documented in this encounter Additional Health Concerns Assessment Noted Time PHQ-9 Depression Total Score: 0 12/04/19 11:00 AM EST documented as of this encounter Care Teams Potable Water Treatment Operator Relationship Specialty Start Date End Date Lashaun Madison DO [address] [place] [address] PCP - ACO Reach 03/29/23 Nitish Agrawal DO [address] [place] [address] PCP - General Family Medicine 03/13/23 Elliot Elias MD [address] [facility] [address], [address] [place] [address] Referring Physician Cardiology 12/04/24 Ranjan Ivory MD [address] [place] [address] [place] [address] Referring Physician Podiatry 12/04/24 documented as of this encounter
--- OUTSIDE RECORDS SUMMARY | 2025-06-04 13:50 | XMS_ITS | Encounter Summary ---
Author Organization [facility] Address [address] [place] [address] Care Team Providers Care Mica Parts Sprayer Name Role Phone Lashaun Madison Judie DO Unavailable [phone] Nitish Agrawal DO Primary Care Provider [phone] Elliot Elias MD Unavailable [phone] Ranjan Ivory MD Unavailable [phone] Encounter Details Date Type Department Care Team (Late st Contact Info) Description 05/15/2025 Abstract [facility] [place] [facility] [address] [facility] [address] [place] [address] Nitish Agrawal, [address] [facility] [address] [place] [address] Social History Tobacco Use Types Packs/Day Years [...] AM EST Office Visit [facility] [place] [facility] [address] [place] [address] Lashaun Madison DO [address] [place] [address] 12/07/2025 10:00 AM EST Office Visit [facility] [place] [facility] [address] [place] [address] Joyce Loyd, LAZARO [address] [place] [address] documented as of this encounter Visit Diagnoses Not on filedocumented in this encounter Additional Health Concerns Assessment Noted Time PHQ-9 Depression Total Score: 0 12/04/19 11:00 AM EST documented as of this encounter Care Teams Mica Parts Sprayer Relationship Specialty Start Date End Date Lashaun Madison DO [address] [place] [address] PCP - ACO Reach 03/29/23 Nitish Agrawal DO [address] [place] [address] PCP - General Family Medicine 03/13/23 Elliot Elias MD 703 [facility] 2, [address] [place] [address] Referring Physician Cardiology 12/04/24 Ranjan Ivory MD [address] [place] [address] [place] [address] Referring Physician Podiatry 12/04/24 documented as of this encounter
--- OUTSIDE RECORDS SUMMARY | 2025-06-04 13:50 | XMS_ITS | Clinical Summary ---
Author Organization [facility] Address [id number] [address] [place] [address] Care Team Providers Care Skiff Operator Name Role Phone Brittany York Primary Care Provider [phone] Social History Tobacco Use Types Packs/Day Years [...] Medical Devices Not on file Care Teams Skiff Operator Relationship Specialty Start Date End Date Brittany York APRN-CNP [address] [place] [address] PCP - General Family Medicine 01/12/21
--- OUTSIDE RECORDS SUMMARY | 2025-06-04 13:50 | XMS_ITS | Encounter Summary ---
Author Organization [facility] Address [address] [place] [address] Phone Care Team Providers Care Real Estate Specialist Name Role Phone Nitish Agrawal DO Primary Care Provider [phone] Encounter Details Date Type Department Care Team (Late st Contact Info) Description 06/09/2022 Orders Only [facility] LE[facility]Y [address] [place] [address] Conversion, Onbase Social History Tobacco Use Types [...] [facility] 703 [facility] [address] [place] [address] Martin Elias DO [address], [address] [place] [address] Scheduled Orders Name Type Priority Associated Diagnoses Orde r Schedule OUTSIDE LAB SCAN Lab Ordered: 06/09/2022 documented as of this encounter Visit Diagnoses Not on filedocumented in this encounter Care Teams Real Estate Specialist Relationship Specialty Start Date End Date Nitish Agrawal DO [address] [place] [address] PCP - General 09/18/19 documented as of this encounter
--- OUTSIDE RECORDS SUMMARY | 2025-06-04 13:50 | XMS_ITS | Encounter Summary ---
Author Organization [facility] Address [address] [place] [address] Care Team Providers Care Loan Clerk Name Role Phone Lashaun Madison Judie DO Unavailable [phone] Nitish Agrawal DO Primary Care Provider [phone] Elliot Elias MD Unavailable [phone] Ranjan Ivory MD Unavailable [phone] Encounter Details Date Type Department Care Team (Late st Contact Info) Description 05/15/2025 Abstract [facility] [place] [facility] [address] [facility] [address] [place] [address] Nitish Agrawal, [address] [facility] [address] [place] [address] Social History Tobacco Use Types Packs/Day Years [...] 8:30 AM EST Office Visit [facility] [place] [facility] [address] [place] [address] Lashaun Madison DO [address] [place] [address] 12/07/2025 10:00 AM EST Office Visit [facility] [place] [facility] [address] [place] [address] Joyce Loyd, LAZARO [address] [place] [address] documented as of this encounter Visit Diagnoses Not on filedocumented in this encounter Additional Health Concerns Assessment Noted Time PHQ-9 Depression Total Score: 0 12/04/19 11:00 AM EST documented as of this encounter Care Teams Loan Clerk Relationship Specialty Start Date End Date Lashaun Madison DO [address] [place] [address] PCP - ACO Reach 03/29/23 Nitish Agrawal DO [address] [place] [address] PCP - General Family Medicine 03/13/23 Elliot Elias MD 703 [facility] 2, [address] [place] [address] Referring Physician Cardiology 12/04/24 Ranjan Ivory MD [address] [place] [address] [place] [address] Referring Physician Podiatry 12/04/24 documented as of this encounter
--- OUTSIDE RECORDS SUMMARY | 2025-06-04 13:50 | XMS_ITS | Encounter Summary ---
Author Organization [facility] Address [address] [place] [address] Care Team Providers Care Composition Worker Name Role Phone Lashaun Madison DO Unavailable [phone] Nitish Agrawal DO Primary Care Provider [phone] Elliot Elias MD Unavailable [phone] Ranjan Ivory MD Unavailable [phone] Encounter Details Date Type Department Care Team (Late st Contact Info) Description 04/09/2023 Orders Only [facility] [address] [place] [address] Nitish Agrawal DO [address] [place] [address] Social History Tobacco Use Types Packs/Day Years [...] 8:30 AM EST Office Visit [facility] [place] [facility] [address] [place] [address] Lashaun Madison DO [address] [place] [address] 12/07/2025 10:00 AM EST Office Visit [facility] [place] [facility] [address] [place] [address] Joyce Loyd, COMPUTER EQUIPMENT INSTALLER [address] [place] [address] documented as of this encounter Procedures Procedure [...] on filedocumented in this encounter Care Teams Composition Worker Relationship Specialty Start Date End Date Lashaun Madison DO [address] [place] [address] PCP - ACO Reach 03/29/23 Nitish Agrawal DO [address] [place] [address] PCP - General Family Medicine 03/13/23 Elliot Elias MD 7[address] [facility] 2, [address] [place] [address] Referring Physician Cardiology 12/04/24 Ranjan Ivory MD [address] [place] [address] [place] [address] Referring Physician Podiatry 12/04/24 documented as of this encounter
--- OUTSIDE RECORDS SUMMARY | 2025-06-04 13:50 | XMS_ITS | Encounter Summary ---
Author Organization [facility] Address [address] [place] [address] Care Team Providers Care Casket Trimmer Name Role Phone Lashaun Madison DO Unavailable [phone] Nitish Agrawal DO Primary Care Provider [phone] Elliot Elias MD Unavailable [phone] Ranjan Ivory MD Unavailable [phone] Encounter Details Date Type Department Care Team (Late st Contact Info) Description 08/06/2023 Abstract [facility] [place] [facility] [address] [facility] [address] [place] [address] Lashaun Madison, DO [address] [facility] 230 [place] [address] Social History Tobacco Use Types Packs/Day Years [...] Description 09/21/2025 8:30 AM EST Office Visit [facility] [address] [place] [address] Lashaun Madison DO [address] [place] [address] 12/07/2025 10:00 AM EST Office Visit [facility] [address] [place] [address] Joyce Loyd NP [address] [place] [address] documented as of this encounter Visit Diagnoses Not on filedocumented in this encounter Care Teams Casket Trimmer Relationship Specialty Start Date End Date Lashaun Madison DO [address] [place] [address] PCP - ACO Reach 03/29/23 Nitish Agrawal DO [address] [place] [address] PCP - General Family Medicine 03/13/23 Elliot Elias MD 703 [facility] 2, [address] [place] [address] Referring Physician Cardiology 12/04/24 Ranjan Ivory MD [address] [place] [address] [place] [address] Referring Physician Podiatry 12/04/24 documented as of this encounter
--- OUTSIDE RECORDS SUMMARY | 2025-06-04 13:50 | XMS_ITS | Encounter Summary ---
Author Organization [facility] Address [address] [place] [address] Phone Care Team Providers Care Reinforcing Steel Machine Operator Name Role Phone Nitish Agrawal DO Primary Care Provider [phone] Encounter Details Date Type Department Care Team (Late st Contact Info) Description 01/15/[address] [facility] LEGACY [address] [place] [address] Conversion, Onbase Social History Tobacco Use Types [...] AM EDT Office Visit [facility] 703 [facility] [address] [place] [address] Martin Elias DO 703 [facility] 2, [address] [place] [address] Scheduled Orders Name Type Priority Associated Diagnoses Orde r Schedule OUTSIDE LAB SCAN Lab Ordered: 01/15/2019 documented as of this encounter Visit Diagnoses Not on filedocumented in this encounter Care Teams Reinforcing Steel Machine Operator Relationship Specialty Start Date End Date Nitish Agrawal DO [address] [place] [address] PCP - General 09/18/19 documented as of this encounter
--- OUTSIDE RECORDS SUMMARY | 2025-06-04 13:50 | XMS_ITS | Encounter Summary ---
Author Organization [facility] Address [address] [place] [address] Care Team Providers Care Manager House Name Role Phone Lashaun Madison Judie DO Unavailable [phone] Nitish Agrawal DO Primary Care Provider [phone] Elliot Elias MD Unavailable [phone] Ranjan Ivory MD Unavailable [phone] Encounter Details Date Type Department Care Team (Late st Contact Info) Description 08/09/2023 Orders Only [facility] [address] [email or web address] [address] [place] [address] A, Unknown Practice [address] [phone] Social History Tobacco Use Types Packs/Day Years [...] 09/21/2025 8:30 AM EST Office Visit [facility] [address] [place] [address] Lashaun Madison DO [address] [place] [address] 12/07/2025 10:00 AM EST Office Visit [facility] [address] [place] [address] Joyce Loyd NP [address] [place] [address] documented as of this encounter Procedures Procedure [...] on filedocumented in this encounter Care Teams Manager House Relationship Specialty Start Date End Date Lashaun Madison DO [address] [place] [address] PCP - ACO Reach 03/29/23 Nitish Agrawal DO [address] [place] [address] PCP - General Family Medicine 03/13/23 Elliot Elias MD 703 [facility] 2, [address] [place] [address] Referring Physician Cardiology 12/04/24 Ranjan Ivory MD [address] [place] [address] Dr LUCAS [place], [place] [address] Referring Physician Podiatry 12/04/24 documented as of this encounter
--- OUTSIDE RECORDS SUMMARY | 2025-06-04 13:50 | XMS_ITS | Clinical Summary ---
Author Organization [facility] Address [address] [place] [address] Phone Care Team Providers Care Hand Shoe Cutter Name Role Phone Nitish Agrawal DO Primary Care Provider [phone] Allergies Active Allergy Reactions Criticality Noted Date [...] Type Department Care Team Description 05/07/[address] [address] Franchesca Adan LPN POC 04/11/2025 Refill [facility] [address] [place] [address] Martin Elias, Multiple vessel coronary artery disease; Hypertension, unspecified type 03/17/[address] [place] [address] Franchesca Adan LPN 03/17/[address] [address] Cristin Fulton RN from Last 3 Months Immunizations Immunization Administration [...] Description 08/04/2025 11:10 AM EDT Office Visit [address] [place] [address] Martin Elias, 703 [facility] [address], [address] [place] [address] Health Maintenance Due Date Last Done Comments CT Colonography 1956 Colonoscopy 1956 Creatinine Level 1956 Diabetes: Hemoglobin A1C 1956 Echocardiogram 1956 FIT 1956 Medicare Annual Wellness Visit (AWV) 1955 Potassium Level 1956 Sigmoidoscopy 1956 MMR Vaccines (1 of 1 - Standard series) 02/07/1957 Diabetes: Retinopathy Screening 02/07/1966 Hepatitis C Screening 02/07/1974 DTaP/Tdap/Td Vaccines (1 - Tdap) 02/07/1978 PSA Prostate Cancer Screening 02/07/2006 Zoster Vaccines (1 of 2) 02/07/2006 11/22/2020, [...] patient's age to complete this topic Insurance [facility] MEDICARE SUPPLEMENT MEDICARE PART A AND B Care Teams Hand Shoe Cutter Relationship Specialty Start Date End Date Nitish Agrawal DO [address] [place] [phone] PCP - General 09/18/19
--- OUTSIDE RECORDS SUMMARY | 2025-06-04 13:50 | XMS_ITS | Encounter Summary ---
Author Organization [facility] Address [address] [place] [address] Care Team Providers Care Ethylene Compressor Operator Name Role Phone Lashaun Madison Judie DO Unavailable [phone] Nitish Agrawal DO Primary Care Provider [phone] Elliot Elias MD Unavailable [phone] Ranjan Ivory MD Unavailable [phone] Encounter Details Date Type Department Care Team (Late st Contact Info) Description 02/19/2024 Abstract [facility] [place] [facility] [address] [facility] [address] [place] [address] Nitish Agrawal, [address] [facility] 230 [place] [address] Social History Tobacco Use Types Packs/Day Years [...] 8:30 AM EST Office Visit [facility] [address] [place] [address] Lashaun Madison, [address] [place] [address] 12/07/2025 10:00 AM EST Office Visit [facility] [place] [address] [place] [address] Joyce Loyd, WINCH DRIVER [address] [place] [address] documented as of this encounter Visit Diagnoses Not on filedocumented in this encounter Care Teams Ethylene Compressor Operator Relationship Specialty Start Date End Date Lashaun Madison DO [address] [place] [address] PCP - ACO Reach 03/29/23 Nitish Agrawal DO [address] [place] [address] PCP - General Family Medicine 03/13/23 Elliot Elias MD 703 [facility] [address], [address] [place] [address] Referring Physician Cardiology 12/04/24 Ranjan Ivory MD [address] [place] [address] [place] [address] Referring Physician Podiatry 12/04/24 documented as of this encounter
--- OUTSIDE RECORDS SUMMARY | 2025-06-04 13:50 | XMS_ITS | Encounter Summary ---
Author Organization [facility] Address [address] [place] [address] Care Team Providers Care Ceramics Artist Name Role Phone Lashaun Madison DO Unavailable [phone] Nitish Agrawal DO Primary Care Provider [phone] Elliot Elias MD Unavailable [phone] Ranjan Ivory MD Unavailable [phone] Encounter Details Date Type Department Care Team (Late st Contact Info) Description 07/19/2023 Abstract [facility] [address] [place] [address] Kiel Lozano, DPJudie [address] [place], [place] [id number] Social History Tobacco Use Types Packs/Day Years [...] 8:30 AM EST Office Visit [facility] [address] [facility] [address] [place] [address] Lashaun Madison DO [address] [place] [address] 12/07/2025 10:00 AM EST Office Visit [facility] [place] [facility] [address] [place] [address] Joyce Loyd, INFORMATION AND DATA ARCHITECT ANALYST [address] [place] [address] documented as of this encounter Visit Diagnoses Not on filedocumented in this encounter Care Teams Ceramics Artist Relationship Specialty Start Date End Date Lashaun Madison DO [address] [place] [address] PCP - ACO Reach 03/29/23 Nitish Agrawal DO [address] [place] [address] PCP - General Family Medicine 03/13/23 Elliot Elias MD [address] [place] [address] 2, [address] [place] [address] Referring Physician Cardiology 12/04/24 Ranjan Ivory MD [address] [place] [address] [place] [address] Referring Physician Podiatry 12/04/24 documented as of this encounter
--- OUTSIDE RECORDS SUMMARY | 2025-06-04 13:50 | XMS_ITS | Encounter Summary ---
Author Organization [facility] Address [address] [place] [address] Care Team Providers Care Trailhead Maintenance Worker Name Role Phone Lashaun Madison DO Unavailable [phone] Nitish Agrawal DO Primary Care Provider [phone] Elliot Elias MD Unavailable [phone] Ranjan Ivory MD Unavailable [phone] Encounter Details Date Type Department Care Team (Late st Contact Info) Description 07/30/2023 Abstract [facility] [address] [place] [phone] Kiel Lozano, DPJudie [address] [place], [place] [phone] Social History Tobacco Use Types Packs/Day Years [...] Family Practice [address] [facility] [address] [place] [address] Lashaun Madison DO [address] [place] [address] 12/07/2025 10:00 AM EST Office Visit [facility] [place] [facility] [address] [place] [address] Joyce Loyd, CARDIAC CARE UNIT NURSE [address] [place] [address] documented as of this encounter Visit Diagnoses Not on filedocumented in this encounter Care Teams Trailhead Maintenance Worker Relationship Specialty Start Date End Date Lashaun Madison DO [address] [place] [address] PCP - ACO Reach 03/29/23 Nitish Agrawal DO [address] [place] [address] PCP - General Family Medicine 03/13/23 Elliot Elias MD [address] [place] [address] 2, [address] [place] [address] Referring Physician Cardiology 12/04/24 Ranjan Ivory MD [address] [place] [address] [place] [address] Referring Physician Podiatry 12/04/24 documented as of this encounter
--- OUTSIDE RECORDS SUMMARY | 2025-06-04 13:50 | XMS_ITS | Encounter Summary ---
Author Organization [facility] Address [address] [place] [address] Care Team Providers Care Air Filler Name Role Phone Lashaun Madison DO Unavailable [phone] Nitish Agrawal DO Primary Care Provider [phone] Elliot Elias MD Unavailable [phone] Ranjan Ivory MD Unavailable [phone] Encounter Details Date Type Department Care Team (Late st Contact Info) Description 06/30/2023 Abstract [facility] [address] [place] [address] Kiel Lozano, DPJudie [address] [place], [place] [id number] Social History Tobacco Use Types Packs/Day Years [...] Description 09/21/2025 8:30 AM EST Office Visit [facility] [address] [facility] [address] [facility] 230 [place] [address] Lashaun Madison DO [address] [facility] [address] [place] [address] 12/07/2025 10:00 AM EST Office Visit [facility] [place] [facility] [address] [place] [address] Joyce Loyd, PASTORAL ASSISTANT [address] [place] [address] documented as of this encounter Visit Diagnoses Not on filedocumented in this encounter Care Teams Air Filler Relationship Specialty Start Date End Date Lashaun Madison DO [address] [place] [address] PCP - ACO Reach 03/29/23 Nitish Agrawal DO [address] [place] [address] PCP - General Family Medicine 03/13/23 Elliot Elias MD [address] [facility] 2, [address] [place] [address] Referring Physician Cardiology 12/04/24 Ranjan Ivory MD [address] [place] [address] [place] [address] Referring Physician Podiatry 12/04/24 documented as of this encounter
--- OUTSIDE RECORDS SUMMARY | 2025-06-04 13:50 | XMS_ITS | Encounter Summary ---
Author Organization [facility] Address [address] [place] [address] Phone Care Team Providers Care Cereal Supervisor Name Role Phone Nitish Agrawal DO Primary Care Provider [phone] Encounter Details Date Type Department Care Team (Late st Contact Info) Description 03/07/2021 Orders Only [facility] [address] [place] [address] Conversion, Onbase Social History Tobacco Use Types [...] EDT Office Visit [facility] [address] [facility] [address] [place] [address] Martin Elias DO [address], [address] [place] [address] Scheduled Orders Name Type Priority Associated Diagnoses Orde r Schedule OUTSIDE LAB SCAN Lab Ordered: 03/07/2021 documented as of this encounter Visit Diagnoses Not on filedocumented in this encounter Care Teams Cereal Supervisor Relationship Specialty Start Date End Date Nitish Agrawal DO [address] [place] [address] PCP - General 09/18/19 documented as of this encounter
== END 2025-06-04 13:46 | disposition home or self-care (01) ==
LOC: WC 13:46
PROVIDERS: PCP Family Medicine; Visit Provider Physician Assistant
DX: E11.621 Type 2 diabetes mellitus with foot ulcer (principal); L97.425 Non-pressure chronic ulcer of left heel and midfoot with muscle involvement without evidence of necrosis; L97.522 Non-pressure chronic ulcer of other part of left foot with fat layer exposed
CPT/HCPCS: 11043

== ENCOUNTER 2025-06-10 10:50 | Outpatient (OUT) | payer MEDICARE, OTHER, SELFPAY ==
--- OUTSIDE RECORDS SUMMARY | 2025-06-10 10:52 | XMS_ITS | Encounter Summary ---
Author Organization [facility] Address [address] [place] [address] Phone Care Team Providers Care Terrazzo Grinder Name Role Phone Niitsh Agrawal DO Primary Care Provider [phone] Encounter Details Date Type Department Care Team (Late st Contact Info) Description 11/07/[address] [facility] [address] [place] [address] Conversion, Onbase Social History Tobacco Use Types [...] Description 08/04/2025 11:10 AM EDT Office Visit [facility] [address] [facility] [address] [place] [address] Martin Elias DO [address], [address] [place] [address] Scheduled Orders Name Type Priority Associated Diagnoses Orde r Schedule OUTSIDE LAB SCAN Lab Ordered: 11/07/2021 documented as of this encounter Visit Diagnoses Not on filedocumented in this encounter Care Teams Terrazzo Grinder Relationship Specialty Start Date End Date Nitish Agrawal DO [address] [place] [address] PCP - General 09/18/19 documented as of this encounter
--- OUTSIDE RECORDS SUMMARY | 2025-06-10 10:52 | XMS_ITS | Encounter Summary ---
Author Organization [facility] Address [address] [place] [address] Care Team Providers Care Soloist Dancer Name Role Phone Lashaun Madison Judie DO Unavailable [phone] Nitish Agrawal DO Primary Care Provider [phone] Elliot Elias MD Unavailable [phone] Ranjan Ivory MD Unavailable [phone] Encounter Details Date Type Department Care Team (Late st Contact Info) Description 06/05/2025 Results Follow-Up [facility] [address] [facility] [address] [place] [address] Robin Caicedo PA [address] [facility] 230 [place] [address] Social History Tobacco Use Types Packs/Day Years [...] encounter Miscellaneous Notes * Telephone Encounter - Sindy Tello MA - 06/05/2025 11:59 AM EDT Pt has been advised. * Telephone Encounter - Carie Carrasco MA - 06/05/2025 11:56 AM EDT Left message on pt's voicemail to contact office. Ok to give results if pt calls back. * Telephone Encounter - Carie Carrasco MA - 06/05/2025 11:55 AM EDT ----- Message from STEVEN Ruiz sent at 06/05/2025 11:43 AM EDT ----- Negative cologuard. Please notify pt. Thank you. ----- Message ----- From: Christina Gama Results In Sent: 06/05/2025 11:20 AM EDT To: Joyce Loyd NP documented in this encounter Plan of Treatment Upcoming Encounters Date Type Department Care Team (Late st Contact Info) Description 09/21/2025 8:30 AM EST [facility] [address] [place] [address] Lashaun Madison DO [address] [place] [address] 12/07/2025 10:00 AM EST Office Visit [facility] [address] [place] [address] Joyce Loyd NP [address] [place] [address] documented as of this encounter Visit Diagnoses Not on filedocumented in this encounter Additional Health Concerns Assessment Noted Time PHQ-9 Depression Total Score: 0 12/04/19 25 11:00 AM EST documented as of this encounter Care Teams Soloist Dancer Relationship Specialty Start Date End Date Lashaun Madison DO [address] [place] [address] PCP - ACO Reach 03/29/23 Nitish Agrawal DO [address] [place] [address] PCP - General Family Medicine 03/13/23 Elliot Elias MD [address] [place] [address] 2, [address] [place] [address] Referring Physician Cardiology 12/04/24 Ranjan Ivory MD [address] [place] [address] [place] [address] Referring Physician Podiatry 12/04/24 documented as of this encounter
--- OUTSIDE RECORDS SUMMARY | 2025-06-10 10:52 | XMS_ITS | Encounter Summary ---
Author Organization [facility] Address [address] [place] [address] Care Team Providers Care Aircraft Machinist Name Role Phone Lashaun Madison Judie DO Unavailable [phone] Nitish Agrawal DO Primary Care Provider [phone] Elliot Elias MD Unavailable [phone] Ranjan Ivory MD Unavailable [phone] Encounter Details Date Type Department Care Team (Late st Contact Info) Description 08/09/2023 Orders Only [facility] [address] [facility] [address] [place] [address] A, Unknown Practice [address] [phone] Social History Tobacco Use Types Packs/Day Years [...] 8:30 AM EST Office Visit [facility] [address] [place] [address] Lashaun Madison DO [address] [place] [address] 12/07/2025 10:00 AM EST Office Visit [facility] [address] [place] [address] Joyce Loyd NP [address] [place] [address] documented as of this encounter Procedures Procedure [...] on filedocumented in this encounter Care Teams Aircraft Machinist Relationship Specialty Start Date End Date Lashaun Madison DO [address] [place] [address] PCP - ACO Reach 03/29/23 Nitish Agrawal DO [address] [place] [address] PCP - General Family Medicine 03/13/23 Elliot Elias MD [address] [facility] 2, [address] [place] [address] Referring Physician Cardiology 12/04/24 Ranjan Ivory MD [address] [place] [address] Dr [address] [place], [place] [address] Referring Physician Podiatry 12/04/24 documented as of this encounter
--- OUTSIDE RECORDS SUMMARY | 2025-06-10 10:52 | XMS_ITS | Encounter Summary ---
Author Organization [facility] Address [address] [place] [address] Care Team Providers Care Resistance Welder Name Role Phone Lashaun Madison DO Unavailable [phone] Nitish Agrawal DO Primary Care Provider [phone] Elliot Elias MD Unavailable [phone] Ranjan Ivory MD Unavailable [phone] Encounter Details Date Type Department Care Team (Late st Contact Info) Description 04/09/2023 Orders Only [facility] [address] [place] [address] Nitish Agrawal DO [address] [place] [address] Social History Tobacco Use Types Packs/Day Years [...] 09/21/2025 8:30 AM EST Office Visit [facility] [address] [place] [address] Lashaun Madison DO [address] [place] [address] 12/07/2025 10:00 AM EST Office Visit [facility] [address] [place] [address] Joyce Loyd, LABORATORY CUREMAN [address] [place] [address] documented as of this encounter Procedures Procedure [...] on filedocumented in this encounter Care Teams Resistance Welder Relationship Specialty Start Date End Date Lashaun Madison DO [address] [place] [address] PCP - ACO Reach 03/29/23 Nitish Agrawal DO [address] [place] [address] PCP - General Family Medicine 03/13/23 Elliot Elias MD [address] [facility] 2, [address] [place] [address] Referring Physician Cardiology 12/04/24 Ranjan Ivory MD [address] [place] [address] [place] [address] Referring Physician Podiatry 12/04/24 documented as of this encounter
--- OUTSIDE RECORDS SUMMARY | 2025-06-10 10:52 | XMS_ITS | Clinical Summary ---
Author Organization [facility] Address [address] [facility] [place] [address] Care Team Providers Care Assembler Product Name Role Phone Lashaun Madison Judie RICH Unavailable [phone] Nitish Martin DO Primary Care Provider [phone] Elliot Elias MD Unavailable [phone] Nisha Ivory MD Unavailable [phone] Allergies No known active allergies Medications isosorbide [...] chest pain. Active Blood Glucose Monitoring Suppl (InterStelNetTomarshallindex Verio Flex System) w/Device kit Active glucose [...] unspecified 03/29/2016 Atherosclerotic heart diseas e of [place] coronary artery without angina pectoris 03/29/2016 Gastro-esophageal reflux disease without esophag itis 03/29/2016 Osteoarthritis of knee, unspecified 03/29/2016 Difficulty in walking, not elsewhere classified 03/29/2016 Muscle weakness (generalized) 03/29/2016 Other reduced mobility 03/29/2016 Diabetes mellitus due to und erlying condition with unspecified complications 03/29/2016 Difficulty walking 03/29/2016 Muscle weakness 03/29/2016 Reduced mobility 03/29/2016 Encounters Date Type Department Care Team Description 06/05/2025 Results Follow-Up [facility] [address] [place] [address] Robin Caicedo, PA 05/30/2025 Refill [facility] [address] [place] [address] Lashaun Madison, Type 2 diabetes mellitus with other circulatory complications (HCC) 05/24/2025 Refill [facility] [address] [place] [address] Robin Caicedo, PA Anxiety 05/20/2025 Clinisync Result Encounter NOMS External Department Unsolicited Provider, Generic External Data 05/19/2025 Abstract [facility] [address] [place] [address] Nitish Martin, DO 05/18/2025 Clinisync Result Encounter NOMS External Department Unsolicited Provider, Generic External Data 05/15/2025 Clinisync Result Encounter NOMS External Department Unsolicited Provider, Generic External Data 05/15/2025 Abstract [facility] [address] [place] [address] Nitish Martin, DO 05/15/2025 Abstract [facility] [address] [place] [address] Nitish Martin, DO 05/15/2025 Clinisync Result Encounter NOMS External Department Unsolicited Provider, Generic External Data 04/22/2025 Clinisync Result Encounter NOMS External Department Unsolicited Provider, Generic External Data 03/27/2025 8:45 AM EDT Office Visit [facility] [address] [place] [address] Lashaun Madison, DO Type 2 diabetes mellitus with stage 3a chronic kidney disease, without long-term current use of insulin (HCC); Type 2 diabetes mellitus with other circulatory complications (HCC) 03/27/2025 Orders Only [facility] [address] [place] [address] Joyce Loyd, LAZARO Colon cancer screening (Primary [...] Description 09/21/2025 8:30 AM EST Office Visit [facility] [address] [place] [address] Lashaun Madison DO [address] [place] [address] 12/07/2025 10:00 AM EST Office Visit [facility] [address] [place] [address] Joyce Loyd, LAZARO [address] [place] [address] Health Maintenance Due Date Last Done Comments CT Colonography 1955 Colonoscopy 1955 FIT 1955 FOBT 1955 Sigmoidoscopy 1955 Diabetes: Retinopathy Screening 06/27/2024 Diabetes: Hemoglobin A1C 06/27/2025 025, 12/01/2024, 09/01/2024, Additional history exists Influenza Vaccine (#1) 2025 4, 08/21/2023, 08/02/2022, Additional history exists Diabetes: Urine Protein Screening 12/01/2025 12/01/2024, 12/28/2020, 12/23/2019, Additional history exists Colorectal Cancer Screening 05/28/2028 FIT-DNA 05/28/2028 05/28/2025, 052 01/2022, 03/27/2022, Additional history exists Pneumococcal Vaccine: 65+ Years Completed 12/04/2024, 08/25/2021, 11/05/2017, Additional history exists Procedures Procedure Name Priority Date/Time Associated Diagnosis Comments LAB COLOGUARD COLON CANCER SCREEN Routine 05/28/2025 7:00 AM EDT Colon cancer screening XR FOOT LT MIN 3V 05/20/2025 8:2 [...] BOTH EYES Routine 06/27/2022 12:00 PM EDT from Last 3 Months or Most Recently Relevant to Health Maintenance Results * Cologuard?? colon cancer screening (05/28/2025 7:00 AM EDT) NONINV COLON CA DNA+OCC BLD SCRN STL-IMP Negative Negative 06/05/2025 5:35 AM EDT [employer] (CLIA #:[id number]) Comment: The Cologuard Plus (TM) test was performed on this specimen. NEGATIVE TEST RESULT. A negative (normal) Cologuard Plus result means the patient has a fakc-prup-jjnfris chance of having colorectal cancer (CRC) or advanced precancer (polyps or lesions that could become cancer). Negative is the normal value (reference range) for this assay. Guidelines recommend screening again 3 years after a negative Cologuard Plus result. Continued screening increases the chance of finding CRC early or preventing it entirely. A clinical validation study showed the Cologuard Plus test is effective at ruling out CRC. Out of every 10,000 patients testing negative, approximately 2 will be falsely reassured that they do not have CRC, and out of every 100 patients testing negative, approximately 7 patients will be falsely reassured they do not have advanced precancer. TEST DESCRIPTION: The Cologuard Plus test is a multi-target stool DNA (mt-sDNA) test that analyzes DNA and hemoglobin biomarkers in stool. It uses a proprietary algorithm to qualitatively detect CRC and advanced precancer. It is FDA-approved and indicated for use in adults 45 years or older at average risk for CRC. A positive (abnormal) result should be followed by a colonoscopy. Patients with a negative (normal) result should screen again in 3 years. False positive and false negative results may occur. The USPSTF recommends the Cologuard test as a CRC screening option. Their modeling estimates that screening with the test every 3 years from ages 45-85 could prevent up to 73% of CRC and avoid up to 85% of CRC deaths. A 18,911-patient clinical trial found the Cologuard Plus test effectively detects CRC and precancer. The study found the test was 95% sensitive for CRC, 43% sensitive for advanced precancer, and had a 91% specificity (Cologuard Plus Clinician Brochure. [employer]. [place], [place] Visit www.Evim.net.com/about/iqpevefx-nxulkrddjuc-bqswjyfnnoj for more test information, references, warnings, and precautions. Stool specimen (specimen) 05/28/2025 7:00 AM EDT 05/29/2025 11:06 AM EDT us Joyce Loyd TERMINATION CLERK LAB MOLECULAR DIAGNOSTICS ORDERA BLES Final Result .[employer] (FIG) (CLIA #:[id number]) [address] [address], [employer]) (CLIA #:[id number]) [address] [address] * XR FOOT LT MIN 3V (05/20/2025 8:21 AM EDT) Only the most recent of2 resultswithin the time period is included. Anatomical Region Laterality Modality Other 05/20/2025 8:21 AM EDT Narrative 05/20/2025 8:23 [place] [address] XRay Report Signed Patient: JANICE PANDYA Jr. MR#: [id number] : 1955 Acct:[id number] Age/Sex: 70 / M ADM Date: 05/19/25 Loc: SURGOUT Attending Dr: Nisha Ivory D.P.M. Ordering Physician: Nisha Ivory D.P.M. Date of Service: 05/19/25 Procedure(s): XR foot LT min 3V Accession Number(s): [id number] cc: NITISH MARTIN ; Nisha Ivory D.P.M. [place] [id number] Patient Name: JANICE PANDYA MRN: [id number] date: 1955 Sex: M Assigned Patient Location: [facility] Current Patient Location: Accession/Order Number: [id number] Exam Date: 05/20/2025 08:15 Report Date: 05/20/2025 [...] Owens M.D. 05/20/2025 8:21 AM Dictation Location: [place] [address] Electronically authenticated by: [id number] Y Date: 05/20/2025 08:21 Dictated By: Melani Owens M.D. Signed By: 05/20/25 0823 DD/ 08 TD/TT: Renovator Machine Operator: Procedure Note Radiology, Radiologist, MD - 05/20/2025 [place] [address] XRay Report Signed Patient: JANICE PANDYA Jr.MR#: [id number] : 1955cct:[id number] Age/Sex: 70 / MADM Date: 05/19/25 Loc: SURGOUT Attending Dr: Nisha Ivory D.P.M. Ordering Physician: Nisha Ivory D.P.M. Date of Service: 05/19/25 Procedure(s): XR foot LT min 3V Accession Number(s): [id number] cc: NITISH MARTIN ; Nisha Ivory D.P.M. The [place] [address] Patient Name: JNAICE PANDYA MRN: [id number] date: 1955 Sex: M Assigned [facility] Current Patient Location: Accession/Order Number: [id number] Exam Date: 05/20/2025 08:15 Report Date: 05/20/2025 [...] Owens M.D. 05/20/2025 8:21 AM Dictation Location: [place] [address] Electronically authenticated by: [id number] Y Date: 508:21 Dictated By: Melani Owens M.D. Signed By:05/20/25 0823 DD/ 08 TD/TT: Renovator Machine Operator: us Generic External Data Provider [facility] IMAGING Final Result * SEGMENTAL BLOOD PRESSURE (05/18/2025 8:40 AM EDT) Anatomical Region Laterality Modality Radiographic Kelly ging 05/18/2025 8:40 AM EDT Narrative 05/19/2025 12:57 PM EDT The [place] [id number] Cardiology Report Signed Patient: JANICE PANDYA Jr. MR#: [id number] : 1955 Acct:[id number] Age/Sex: 70 / M ADM Date: 05/18/25 Loc: CARD Attending Dr: Gisela HARRIS Ordering Physician: Gisela Crandall Date of Service: 05/18/25 Procedure(s): CA segmental UE or LE ANTHONY Accession Number(s): [id number] cc: NITISH MARTIN ; Gisela Crandall [facility] Test Date: 2025-05-18 Pat Name: JANICE PANDYA Department: Room: - Gender: Male Vamp Cut Out Worker: : 1955 Requested By: Gisela Crandall Order Number: [id number] Reading MD: DEBAR FAITH Interpretive Statements Normal segmental pressures and [...] 05/19/25 1257 05/19/25 1257 DD/ 0840 TD/TT: Renovator Machine Operator: Procedure Note Radiology, Radiologist, MD - 05/19/2025 The [place] [id number] Cardiology Report Signed Patient: JANICE PANDYA Jr.MR#: [id number] : 1955cct:[id number] Age/Sex: 70 / MADM Date: 05/18/25 Loc: CARD Attending Dr: Gisela HARRIS Ordering Physician: Gisela Crandall Date of Service: 05/18/25 Procedure(s): CA segmental UE or LE ANTHONY Accession Number(s): [id number] cc: NITISH MARTIN ; Gisela Crandall [facility] Test Date: 2025-05-18 Pat Name: JANICE PANDYA Department: Room: - Gender: Male Vamp Cut Out Worker: : 1955 Requested By: Gisela Crandall Order Number: [id number] Reading MD: DEBRA FAITH Interpretive Statements Normal [...] By:05/19/25 1257 05/19/25 1257 DD/ 0840 TD/TT: Renovator Machine Operator: us Generic External Data Provider IMG XR PROCEDURES Final Result * XR CHEST 2V (05/15/2025 10:49 AM EDT) Anatomical Region Laterality Modality Other 05/15/2025 10:4 9 AM EDT Narrative 05/15/2025 10:51 [place] [address] XRay Report Signed Patient: JANICE PANDYA Jr. MR#: [id number] : 1955 Acct:[id number] Age/Sex: 70 / M ADM Date: 05/15/25 Loc: PST Attending Dr: Nisha Ivory D.P.M. Ordering Physician: Nisha Ivory D.P.M. Date of Service: 05/15/25 Procedure(s): XR chest 2V Accession Number(s): [id number] cc: NITISH MARTIN ; Nisha Ivory D.P.M. The [address] [address] Patient Name: JANICE PANDYA MRN: [id number] date: 1955 Sex: M Assigned Patient Location: [facility] Current Patient Location: [facility] Accession/Order Number: [id number] Exam Date: 05/15/2025 10:46 Report Date: 05/15/2025 10:49 At the request of: NISHA IVORY DPM Procedure: XR chest 2V PA AND [...] Owens M.D. 05/15/2025 10:49 AM Dictation Location: [place] [address] Electronically authenticated by: [id number] Y Date: 05/15/2025 10:49 Dictated By: Melani Owens M.D. Signed By: 05/15/25 1051 DD/ 1049 TD/TT: Renovator Machine Operator: Procedure Note Radiology, Radiologist, MD - 05/15/2025 [place] [address] XRay Report Signed Patient: JANICE PANDYA Jr.MR#: [id number] : 1955cct:[id number] Age/Sex: 70 / MADM Date: 05/15/25 Loc: [facility] Attending Dr: Nisha Ivory D.P.M. Ordering Physician: Nisha Ivory D.P.M. Date of Service: 05/15/25 Procedure(s): XR chest 2V Accession Number(s): [id number] cc: NITISH MARTIN ; Nisha Ivory D.P.M. The [place] [id number] Patient Name: JANICE PANDYA MRN: [id number] date: 1955 Sex: M Assigned Patient Location: [facility] Current Patient Location: [facility] Accession/Order Number: [id number] Exam Date: 05/15/2025 10:46 Report Date: 05/15/2025 [...] Owens M.D. 05/15/2025 10:49 AM Dictation Location: [place] [address] Electronically authenticated by: [id number] Y Date: 0:49 Dictated By: Melani Owens M.D. Signed By:05/15/25 1051 DD/ 1049 TD/TT: Renovator Machine Operator: Generic External Data Provider [facility] IMAGING [...] Data Provider CLINISYNC F inal Result [facility] * CCF APTT (05/15/2025 10:35 AM EDT) PARTIAL THROMBOPLASTIN TIME 32.2 22.3 - 36.2 sec [facility] 05/15/2025 10:3 5 AM EDT 05/15/2025 10:40 AM EDT Narrative CLINISYNC - 05/15/2025 11:18 AM EDT us Generic External Data Provider CLINISYNC F inal Result [facility] * (ABNORMAL) ALL CBC WITH AUTO DIFF (05/15/2025 10:35 AM EDT) Pathologist [facility] WBC 7.1 4.0 - 11.0 10 3/uL TBH TBH RBC 5.18 4.70 - 6.10 10 6/uL TBH TBH HGB 13.6(L) 14.0 - 18.0 g/dL TB TB HCT 42.9 42.0 - 54.0 % TBH TBH MCV 82.8 80.0 - 94.0 fL TBH TB MCH 26.3 25.9 - 34.0 pg TBH [...] 11:06 AM EDT Generic External Data Provider CLINISYNC F inal Result [facility] * (ABNORMAL) ALL BASIC METABOLIC PANEL [...] 0.70 - 1.30 mg/dL TBH TBH EGFR-AF BRITISH >60 >=60 mL/min/1.7 3m 2 TBH TBH EGFR-NON AF BRITISH 54(L) >=60 mL/min/1.7 3m 2 TBH BUN CREATININE RATIO 18.9 TBH CALCIUM 8.5 8.5 - 10.1 mg/dL [facility] 05/15/2025 10:3 5 AM EDT 05/15/2025 10:40 AM EDT Narrative CLIN[facility]YNC - 05/15/2025 11:26 AM EDT Generic External Data Provider CLINISYNC F inal Result [facility] * ECG 12-LEAD (05/15/2025 8:31 AM EDT) Anatomical Region Laterality Modality Other 05/15/2025 8:31 AM EDT Narrative 05/19/2025 4:10 [place] [address] Electrocardiograph Report Signed Patient: JANICE PANDYA Jr. MR#: [id number] : 1955 Acct:[id number] Age/Sex: 70 / M ADM Date: 05/15/25 Loc: PST Attending Dr: Nisha Ivory D.P.M. Ordering Physician: Nisha Ivory D.P.M. Date of Service: 05/15/25 Procedure(s): ECG 12 lead Accession Number(s): [id number] cc: [facility] Test Date: 2025-05-15 Pat Name: JANICE PANDYA Department: Room: - Gender: Male Vamp Cut Out Worker: : 1955 Requested By: NISHA IVORY Order Number: [id number] Reading MD: DEBRA FAITH Measurements Intervals [place] Rate: 63 P: 21 MS: 288 QRS: 35 QRSD: 114 T: 146 [...] Signed By: 05/19/25 1610 DD/ 0831 TD/TT: Renovator Machine Operator: Procedure Note Radiology, Radiologist, - 05/19/2025 The [place] [id number] Electrocardiograph Report Signed Patient: JANICE PANDYA Jr.MR#: [id number] : 1955cct:[id number] Age/Sex: 70 / MADM Date: 05/15/25 Loc: PST Attending Dr: Nisha Ivory D.P.M. Ordering Physician: Nisha Ivory D.P.M. Date of Service: 05/15/25 Procedure(s): ECG 12 lead Accession Number(s): [id number] cc: [facility] Test Date: 2025-05-15 Pat Name: JANICE PANDYA Department: Room: - Gender: Male Vamp Cut Out Worker: : 1955 Requested By: NISHA IVORY Order Number: [id number] Reading MD: DEBRA FAITH Measurements Intervals [place] Rate: 63 P: 21 MS: 288 QRS: 35 QRSD: 114 T: 146 [...] M.D. Signed By:05/19/25 1610 DD/ 0831 TD/TT: Renovator Machine Operator: Generic External Data Provider [facility] IMAGING [...] 12/02/2024 10:07 AM EST Performed at: - [facility] [id number] Display Artist: Leonardo Stevens PhD, Phone: [phone] us Lashaun Madison DO LAB URINE ORDERABLES Final Result [facility] * Color Fundus Photography - OU - Both Eyes (06/27/2022 12:00 PM EDT) Anatomical Region Laterality Modality Head Fundus Photograp hy 06/27/2022 12:0 0 PM EDT Narrative 06/27/2022 12:00 PM EDT PERFORMED AT [facility] LOCATION:[id number] [facility] Procedure Note CONVERSION, GENERIC - 03/21/2023 PERFORMED AT [facility] LOCATION:[id number] [facility] us Lashaun Madison DO OPHTH PHOTOGRAPHY Final Re sult from Last 3 Months or Most Recently Relevant to Health Maintenance Insurance [employer] Care Teams Assembler Product Relationship Specialty Start Date End Date Lashaun Madison DO [address] [place] [address] PCP - ACO Reach 03/29/23 Nitish Martin DO [address] [facility] [address] [place] [address] PCP - General Family Medicine 03/13/23 Elliot Elias MD [address] [facility] [address] [place] [address] Referring Physician Cardiology 12/04/24 Nisha Ivory MD [address] [place] [address] [place] [address] Referring Physician Podiatry 12/04/24
--- OUTSIDE RECORDS SUMMARY | 2025-06-10 10:52 | XMS_ITS | Encounter Summary ---
Author Organization [facility] Address [address] [place] [address] Care Team Providers Care Financial Investment Adviser Name Role Phone Lashaun Madison DO Unavailable [phone] Nitish Agrawal DO Primary Care Provider [phone] Elliot Elias MD Unavailable [phone] Ranjan Ivory MD Unavailable [phone] Encounter Details Date Type Department Care Team (Late st Contact Info) Description 08/06/2023 Abstract [facility] [place] [facility] [address] [facility] [address] [place] [address] Lashaun Madison, DO [address] [facility] [address] [place] [address] Social History Tobacco Use Types Packs/Day Years [...] Description 09/21/2025 8:30 AM EST Office Visit [facility] [address] [place] [address] Lashaun Madison DO [address] [place] [address] 12/07/2025 10:00 AM EST Office Visit [facility] [address] [place] [address] Joyce Loyd NP [address] [place] [address] documented as of this encounter Visit Diagnoses Not on filedocumented in this encounter Care Teams Financial Investment Adviser Relationship Specialty Start Date End Date Lashaun Madison DO [address] [place] [address] PCP - ACO Reach 03/29/23 Nitish Agrawal DO [address] [place] [address] PCP - General Family Medicine 03/13/23 Elliot Elias MD [address] [facility] [address], [address] [place] [address] Referring Physician Cardiology 12/04/24 Ranjan Ivory MD [address] [place] [address] [place] [address] Referring Physician Podiatry 12/04/24 documented as of this encounter
--- OUTSIDE RECORDS SUMMARY | 2025-06-10 10:52 | XMS_ITS | Encounter Summary ---
Author Organization [facility] Address [address] [place] [address] Care Team Providers Care Analyst Competitive Intelligence Name Role Phone Lashaun Madison DO Unavailable [phone] Nitish Agrawal DO Primary Care Provider [phone] Elliot Elias MD Unavailable [phone] Ranjan Ivory MD Unavailable [phone] Encounter Details Date Type Department Care Team (Late st Contact Info) Description 07/30/2023 Abstract [facility] [address] [place] [phone] Kiel Lozano, DPJudie [address] [place], [place] [address] Social History Tobacco Use Types Packs/Day Years [...] Family Practice [address] [facility] [address] [place] [address] Lashaun Madison DO [address] [place] [address] 12/07/2025 10:00 AM EST Office Visit [facility] [place] [facility] [address] [place] [address] Joyce Loyd, OUTSIDE SALES REPRESENTATIVE INSURANCE [address] [place] [address] documented as of this encounter Visit Diagnoses Not on filedocumented in this encounter Care Teams Analyst Competitive Intelligence Relationship Specialty Start Date End Date Lashaun Madison DO [address] [place] [address] PCP - ACO Reach 03/29/23 Nitish Agrawal DO [address] [place] [address] PCP - General Family Medicine 03/13/23 Elliot Elias MD [address] [place] [address] [address] [place] [address] Referring Physician Cardiology 12/04/24 Ranjan Ivory MD [address] [place] [address] [place] [address] Referring Physician Podiatry 12/04/24 documented as of this encounter
--- OUTSIDE RECORDS SUMMARY | 2025-06-10 10:52 | XMS_ITS | Encounter Summary ---
Author Organization [facility] Address [address] [place] [address] Care Team Providers Care Jackhammer Operator Name Role Phone Lashaun Madison Judie DO Unavailable [phone] Nitish Agrawal DO Primary Care Provider [phone] Elliot Elias MD Unavailable [phone] Ranjan Ivory MD Unavailable [phone] Encounter Details Date Type Department Care Team (Late st Contact Info) Description 05/19/2025 Abstract [facility] [place] [facility] [address] [facility] [address] [place] [address] Nitish Agrawal, [address] [facility] [address] [place] [address] Social History Tobacco Use Types Packs/Day Years [...] AM EST Office Visit [facility] [place] [facility] [address] [place] [address] Lashaun Madison DO [address] [place] [address] 12/07/2025 10:00 AM EST Office Visit [facility] [place] [facility] [address] [place] [address] Joyce Loyd, LAZARO [address] [place] [address] documented as of this encounter Visit Diagnoses Not on filedocumented in this encounter Additional Health Concerns Assessment Noted Time PHQ-9 Depression Total Score: 0 12/04/19 11:00 AM EST documented as of this encounter Care Teams Jackhammer Operator Relationship Specialty Start Date End Date Lashaun Madison DO [address] [place] [address] PCP - ACO Reach 03/29/23 Nitish Agrawal DO [address] [place] [address] PCP - General Family Medicine 03/13/23 Elliot Elias MD [address] [facility] [address], [address] [place] [address] Referring Physician Cardiology 12/04/24 Ranjan Ivory MD [address] [place] [address] [place] [address] Referring Physician Podiatry 12/04/24 documented as of this encounter
--- OUTSIDE RECORDS SUMMARY | 2025-06-10 10:52 | XMS_ITS | Encounter Summary ---
Author Organization [facility] Address [address] [place] [address] Phone Care Team Providers Care Sap Portal Architect Name Role Phone Nitish Agrawal DO Primary Care Provider [phone] Encounter Details Date Type Department Care Team (Late st Contact Info) Description 03/07/2021 Orders Only [facility] [address] [place] [address] Conversion, Onbase Social History Tobacco Use Types [...] Description 08/04/2025 11:10 AM EDT Office Visit [facility] [address] [facility] [address] [place] [address] Martin Elias DO [address], [address] [place] [address] Scheduled Orders Name Type Priority Associated Diagnoses Orde r Schedule OUTSIDE LAB SCAN Lab Ordered: 03/07/2021 documented as of this encounter Visit Diagnoses Not on filedocumented in this encounter Care Teams Sap Portal Architect Relationship Specialty Start Date End Date Nitish Agrawal DO [address] [place] [address] PCP - General 09/18/19 documented as of this encounter
--- OUTSIDE RECORDS SUMMARY | 2025-06-10 10:52 | XMS_ITS | Clinical Summary ---
Author Organization [facility] Address [id number] [address] [place] [address] Care Team Providers Care Delicatessen Slicer Name Role Phone Brittany York Primary Care Provider [phone] Social History Tobacco Use Types Packs/Day Years [...] Medical Devices Not on file Care Teams Delicatessen Slicer Relationship Specialty Start Date End Date Brittany York APRN-CNP [address] [place] [address] PCP - General Family Medicine 01/12/21
--- OUTSIDE RECORDS SUMMARY | 2025-06-10 10:52 | XMS_ITS | Encounter Summary ---
Author Organization [facility] Address [address] [place] [address] Care Team Providers Care Stone Spreader Operator Name Role Phone Lashaun Madison DO Unavailable [phone] Nitish Agrawal DO Primary Care Provider [phone] Elliot Elias MD Unavailable [phone] Ranjan Ivory MD Unavailable [phone] Encounter Details Date Type Department Care Team (Late st Contact Info) Description 07/19/2023 Abstract [facility] [address] [place] [address] Kiel Lozano, DPJudie [address] [place], [place] [address] Social History Tobacco Use Types Packs/Day Years [...] Family Practice [address] [facility] [address] [place] [address] Lashaun Madison DO [address] [place] [address] 12/07/2025 10:00 AM EST Office Visit [facility] [place] [facility] [address] [place] [address] Joyce Loyd, ALARM OPERATOR [address] [place] [address] documented as of this encounter Visit Diagnoses Not on filedocumented in this encounter Care Teams Stone Spreader Operator Relationship Specialty Start Date End Date Lashaun Madison DO [address] [place] [address] PCP - ACO Reach 03/29/23 Nitish Agrawal DO [address] [place] [address] PCP - General Family Medicine 03/13/23 Elliot Elias MD [address] [place] [address] 2, [address] [place] [address] Referring Physician Cardiology 12/04/24 Ranjan Ivory MD [address] [place] [address] [place] [address] Referring Physician Podiatry 12/04/24 documented as of this encounter
--- OUTSIDE RECORDS SUMMARY | 2025-06-10 10:52 | XMS_ITS | Encounter Summary ---
Author Organization [facility] Address [address] [place] [address] Care Team Providers Care Freight Sorter Name Role Phone Lashaun Madison DO Unavailable [phone] Nitish Agrawal DO Primary Care Provider [phone] Elliot Elias MD Unavailable [phone] Ranjan Ivory MD Unavailable [phone] Reason for Visit * Reason Comments Med Refill Encounter Details Date Type Department Care Team (Late st Contact Info) Description 05/30/2025 Refill [facility] [place] [facility] [address] [facility] [address] [place] [address] Lashaun Madison, DO [address] [facility] [address] [place] [address] Type 2 diabetes mellitus with other circulatory [...] 09/21/2025 8:30 AM EST Office Visit [facility] [address] [place] [address] Lashaun Madison DO [address] [place] [address] 12/07/2025 10:00 AM EST Office Visit [facility] [address] [place] [address] Joyce Loyd NP [address] [place] [address] documented as of this encounter Visit Diagnoses Diagnosis Type 2 diabetes mellitus with other circulatory complications (HCC) documented in this encounter Additional Health Concerns Assessment Noted Time PHQ-9 Depression Total Score: 0 12/04/19 11:00 AM EST documented as of this encounter Care Teams Freight Sorter Relationship Specialty Start Date End Date Lashaun Madison DO [address] [place] [address] PCP - ACO Reach 03/29/23 Nitish Agrawal DO [address] [place] [address] PCP - General Family Medicine 03/13/23 Elliot Elias MD [address] [facility] [address], [address] [place] [address] Referring Physician Cardiology 12/04/24 Ranjan Ivory MD [address] [place] [address] [place] [address] Referring Physician Podiatry 12/04/24 documented as of this encounter
--- OUTSIDE RECORDS SUMMARY | 2025-06-10 10:52 | XMS_ITS | Encounter Summary ---
Author Organization [facility] Address [address] [place] [address] Care Team Providers Care Ring Striker Name Role Phone Lashaun Madison DO Unavailable [phone] Nitish Agrawal DO Primary Care Provider [phone] Elliot Elias MD Unavailable [phone] Ranjan Ivory MD Unavailable [phone] Encounter Details Date Type Department Care Team (Late st Contact Info) Description 06/30/2023 Abstract [facility] [address] [place] [address] Kiel Lozano, DPJudie [address] [place], [place] [address] Social History Tobacco Use Types Packs/Day Years [...] [facility] [address] [facility] 230 [place] [address] Lashaun Madison DO [address] [facility] [address] [place] [address] 12/07/2025 10:00 AM EST Office Visit [facility] [place] [facility] [address] [place] [address] Joyce Loyd, HAZARDOUS MATERIALS ANALYST [address] [place] [address] documented as of this encounter Visit Diagnoses Not on filedocumented in this encounter Care Teams Ring Striker Relationship Specialty Start Date End Date Lashaun Madison DO [address] [place] [address] PCP - ACO Reach 03/29/23 Nitish Agrawal DO [address] [place] [address] PCP - General Family Medicine 03/13/23 Elliot Elias MD [address] [facility] 2, [address] [place] [address] Referring Physician Cardiology 12/04/24 Ranjan Ivory MD [address] [place] [address] [place] [address] Referring Physician Podiatry 12/04/24 documented as of this encounter
--- OUTSIDE RECORDS SUMMARY | 2025-06-10 10:53 | XMS_ITS | Clinical Summary ---
Author Organization [facility] Address [address] [place] [address] Phone Care Team Providers Care Sweep Press Operator Name Role Phone Nitish Agrawal DO Primary Care Provider [phone] Allergies Active Allergy Reactions Criticality Noted Date [...] Type Department Care Team Description 05/07/[address] [address] Franchesca Adan LPN POC 04/11/2025 Refill [facility] [address] [place] [address] Martin Elias, Multiple vessel coronary artery disease; Hypertension, unspecified type 03/17/[address] [place] [address] Franchesca Adan LPN 03/17/[address] [address] Cristin Fulton RN from Last [...] Description 08/04/2025 11:10 AM EDT Office Visit [address] [place] [address] Martin Elias, [address] [facility] [address], [address] [place] [address] Health Maintenance Due Date Last [...] patient's age to complete this topic Insurance [facility] MEDICARE SUPPLEMENT MEDICARE PART A AND B Care Teams Sweep Press Operator Relationship Specialty Start Date End Date Nitish Agrawal DO [address] [place] [address] PCP - General 09/18/19
--- OUTSIDE RECORDS SUMMARY | 2025-06-10 10:53 | XMS_ITS | Encounter Summary ---
Author Organization [facility] Address [address] [place] [address] Care Team Providers Care Hearing Aid Mechanic Name Role Phone Lashaun Madison Judie DO Unavailable [phone] Nitish Agrawal DO Primary Care Provider [phone] Elliot Elias MD Unavailable [phone] Ranjan Ivory MD Unavailable [phone] Encounter Details Date Type Department Care Team (Late st Contact Info) Description 05/15/2025 Abstract [facility] [place] [facility] [address] [facility] [address] [place] [address] Nitish Agrawal, [address] [facility] [address] [place] [address] Social History Tobacco Use Types Packs/Day Years [...] 8:30 AM EST Office Visit [facility] [place] [facility] [address] [place] [address] Lashaun Madison DO [address] [place] [address] 12/07/2025 10:00 AM EST Office Visit [facility] [place] [facility] [address] [place] [address] Joyce Loyd, LAZARO [address] [place] [address] documented as of this encounter Visit Diagnoses Not on filedocumented in this encounter Additional Health Concerns Assessment Noted Time PHQ-9 Depression Total Score: 0 12/04/19 11:00 AM EST documented as of this encounter Care Teams Hearing Aid Mechanic Relationship Specialty Start Date End Date Lashaun Madison DO [address] [place] [address] PCP - ACO Reach 03/29/23 Nitish Agrawal DO [address] [place] [address] PCP - General Family Medicine 03/13/23 Elliot Elias MD 703 [facility] 2, [address] [place] [address] Referring Physician Cardiology 12/04/24 Ranjan Ivory MD [address] [place] [address] [place] [address] Referring Physician Podiatry 12/04/24 documented as of this encounter
--- OUTSIDE RECORDS SUMMARY | 2025-06-10 10:53 | XMS_ITS | Encounter Summary ---
Author Organization [facility] Address [address] [place] [address] Care Team Providers Care Splicing Technician Name Role Phone Lashaun Madison Judie DO Unavailable [phone] Nitish Agrawal DO Primary Care Provider [phone] Elliot Elias MD Unavailable [phone] Ranjan Ivory MD Unavailable [phone] Encounter Details Date Type Department Care Team (Late st Contact Info) Description 05/15/2025 Abstract [facility] [place] [facility] [address] [facility] [address] [place] [address] Nitish Agrawal, [address] [facility] [address] [place] [address] Social History Tobacco Use Types Packs/Day Years [...] 8:30 AM EST Office Visit [facility] [place] [facility] [address] [place] [address] Lashaun Madison DO [address] [place] [address] 12/07/2025 10:00 AM EST Office Visit [facility] [place] [facility] [address] [place] [address] Joyce Loyd, LAZARO [address] [place] [address] documented as of this encounter Visit Diagnoses Not on filedocumented in this encounter Additional Health Concerns Assessment Noted Time PHQ-9 Depression Total Score: 0 12/04/19 11:00 AM EST documented as of this encounter Care Teams Splicing Technician Relationship Specialty Start Date End Date Lashaun Madison DO [address] [place] [address] PCP - ACO Reach 03/29/23 Nitish Agrawal DO [address] [place] [address] PCP - General Family Medicine 03/13/23 Elliot Elias MD 703 [facility] 2, [address] [place] [address] Referring Physician Cardiology 12/04/24 Ranjan Ivory MD [address] [place] [address] [place] [address] Referring Physician Podiatry 12/04/24 documented as of this encounter
--- OUTSIDE RECORDS SUMMARY | 2025-06-10 10:53 | XMS_ITS | Encounter Summary ---
Author Organization [facility] Address [address] [place] [address] Phone Care Team Providers Care Manager Video Games Name Role Phone Nitish Agrawal DO Primary Care Provider [phone] Encounter Details Date Type Department Care Team (Late st Contact Info) Description 06/09/2022 Orders Only [facility] [address] [place] [address] Conversion, Onbase Social History Tobacco Use Types [...] Description 08/04/2025 11:10 AM EDT Office Visit [facility] [address] [facility] [address] [place] [address] Martin Elias DO [address], [address] [place] [address] Scheduled Orders Name Type Priority Associated Diagnoses Orde r Schedule OUTSIDE LAB SCAN Lab Ordered: 06/09/2022 documented as of this encounter Visit Diagnoses Not on filedocumented in this encounter Care Teams Manager Video Games Relationship Specialty Start Date End Date Nitish Agrawal DO [address] [place] [address] PCP - General 09/18/19 documented as of this encounter
--- OUTSIDE RECORDS SUMMARY | 2025-06-10 10:53 | XMS_ITS | Encounter Summary ---
Author Organization [facility] Address [address] [place] [address] Care Team Providers Care Airplane Fueler Name Role Phone Lashaun Madison DO Unavailable [phone] Nitish Agrawal DO Primary Care Provider [phone] Elliot Elias MD Unavailable [phone] Ranjan Ivory MD Unavailable [phone] Reason for Visit * Reason Comments Med Refill Encounter Details Date Type Department Care Team (Late st Contact Info) Description 03/04/2024 Refill [facility] [place] [facility] [address] [facility] [address] [place] [address] Lashaun Madison, DO [address] [facility] [address] [place] [address] Type 2 diabetes mellitus with other circulatory [...] 09/21/2025 8:30 AM EST Office Visit [facility] [address] [place] [address] Lashaun Madison DO [address] [place] [address] 12/07/2025 10:00 AM EST Office Visit [facility] [address] [place] [address] Joyce Loyd NP [address] [place] [address] documented as of this encounter Visit Diagnoses Diagnosis Type 2 diabetes mellitus with other circulatory complications (HCC) documented in this encounter Care Teams Airplane Fueler Relationship Specialty Start Date End Date Lashaun Madison DO [address] [place] [address] PCP - ACO Reach 03/29/23 Nitish Agrawal DO [address] [place] [address] PCP - General Family Medicine 03/13/23 Elliot Elias MD [facility] [facility], [address] [place] [address] Referring Physician Cardiology 12/04/24 Ranjan Ivory MD [address] [place] [address] [place] [address] Referring Physician Podiatry 12/04/24 documented as of this encounter
--- OUTSIDE RECORDS SUMMARY | 2025-06-10 10:53 | XMS_ITS | Encounter Summary ---
Author Organization [facility] Address [address] [place] [address] Care Team Providers Care Press Supervisor Name Role Phone Lashaun Madison Judie DO Unavailable [phone] Nitish Agrawal DO Primary Care Provider [phone] Elliot Elias MD Unavailable [phone] Ranjan Ivory MD Unavailable [phone] Encounter Details Date Type Department Care Team (Late st Contact Info) Description 02/19/2024 Abstract [facility] [place] [facility] [address] [facility] [address] [place] [address] Nitish Agrawal, [address] [facility] 230 [place] [address] Social History Tobacco Use Types Packs/Day Years [...] 8:30 AM EST Office Visit [facility] [address] [place] [address] Lashaun Madison, [address] [place] [address] 12/07/2025 10:00 AM EST Office Visit [facility] [address] [place] [address] Joyce Loyd, RESTAURANT OPERATIONS MANAGER [address] [place] [address] documented as of this encounter Visit Diagnoses Not on filedocumented in this encounter Care Teams Press Supervisor Relationship Specialty Start Date End Date Lashaun Madison DO [address] [place] [address] PCP - ACO Reach 03/29/23 Nitish Agrawal DO [address] [place] [address] PCP - General Family Medicine 03/13/23 Elliot Elias MD 703 [facility] [address] 2, [address] [place] [address] Referring Physician Cardiology 12/04/24 Ranjan Ivory MD [address] [place] [address] [place] [address] Referring Physician Podiatry 12/04/24 documented as of this encounter
--- OUTSIDE RECORDS SUMMARY | 2025-06-10 10:53 | XMS_ITS | Encounter Summary ---
Author Organization [facility] Address [address] [place] [address] Care Team Providers Care Senior Engineer Name Role Phone Lashaun Madison Judie DO Unavailable [phone] Nitish Agrawal DO Primary Care Provider [phone] Elliot Elias MD Unavailable [phone] Ranjan Ivory MD Unavailable [phone] Encounter Details Date Type Department Care Team ([facility] Contact Info) Description 10/15/2023 Abstract [facility] [place] [facility] [address] [place] [address] Kiel Lozano, DPJudie [address] [place], [place] [address] Social History Tobacco Use Types Packs/Day Years [...] Upcoming Encounters Date Type Department Care Team ([facility] Contact Info) Description 09/21/2025 8:30 AM EST Office Visit [facility] [place] [facility] [address] [place] [address] Lashaun Madison DO [address] [place] [address] 12/07/2025 10:00 AM EST Office Visit [facility] [place] [facility] [address] [place] [address] Joyce Loyd, LUMBER CARRIER [address] [place] [address] documented as of this encounter Visit Diagnoses Not on filedocumented in this encounter Care Teams Senior Engineer Relationship Specialty Start Date End Date Lashaun Madison DO [address] [place] [address] PCP - ACO Reach 03/29/23 Nitish Agrawal DO [address] [place] [address] PCP - General Family Medicine 03/13/23 Elliot Elias MD 703 [facility] 2, [address] [place] [address] Referring Physician Cardiology 12/04/24 Ranjan Ivory MD [address] [place] [address] [place] [address] Referring Physician Podiatry 12/04/24 documented as of this encounter
--- OUTSIDE RECORDS SUMMARY | 2025-06-10 10:53 | XMS_ITS | Encounter Summary ---
Author Organization [facility] Address [address] [place] [address] Phone Care Team Providers Care Manager Baby Name Role Phone Nitish Agrawal DO Primary Care Provider [phone] Encounter Details Date Type Department Care Team (Late st Contact Info) Description 01/15/2019 Orders Only [facility] [address] [place] [address] Conversion, Onbase Social History Tobacco Use Types [...] 11:10 AM EDT Office Visit [facility] 703 [facility] [address] [place] [address] Martin Elias DO 703 [facility] 2, [address] [place] [address] Scheduled Orders Name Type Priority Associated Diagnoses Orde r Schedule OUTSIDE LAB SCAN Lab Ordered: 01/15/2019 documented as of this encounter Visit Diagnoses Not on filedocumented in this encounter Care Teams Manager Baby Relationship Specialty Start Date End Date Nitish Agrawal DO [address] [place] [address] PCP - General 09/18/19 documented as of this encounter
--- OUTSIDE RECORDS SUMMARY | 2025-06-10 10:53 | XMS_ITS | Encounter Summary ---
Author Organization [facility] Address [address] [place] [address] Care Team Providers Care Art Class Model Name Role Phone Lashaun Madison DO Unavailable [phone] Nitish Agrawal DO Primary Care Provider [phone] Elliot Elias MD Unavailable [phone] Ranjan Ivory MD Unavailable [phone] Encounter Details Date Type Department Care Team ([facility] Contact Info) Description 02/19/2024 Abstract [facility] [place] [facility] [address] [facility] [address] [place] [address] Lashaun Madison, DO [address] [facility] 230 [place] [address] Social History Tobacco Use Types Packs/Day Years [...] Upcoming Encounters Date Type Department Care Team ([facility] Contact Info) Description 09/21/2025 8:30 AM EST Office Visit [facility] [place] [facility] [address] [place] [address] Lashaun Madison DO [address] [place] [address] 12/07/2025 10:00 AM EST Office Visit [facility] [place] [facility] [address] [place] [address] Joyce Loyd, CLINICAL INSTRUCTOR [address] [place] [address] documented as of this encounter Visit Diagnoses Not on filedocumented in this encounter Care Teams Art Class Model Relationship Specialty Start Date End Date Lashaun Madison DO [address] [place] [address] PCP - ACO Reach 03/29/23 Nitish Agrawal DO [address] [place] [address] PCP - General Family Medicine 03/13/23 Elliot Elias MD 703 [facility] 2, [address] [place] [address] Referring Physician Cardiology 12/04/24 Ranjan Ivory MD [address] [place] [address] [place] [address] Referring Physician Podiatry 12/04/24 documented as of this encounter
== END 2025-06-10 10:51 | disposition home or self-care (01) ==
LOC: WC 10:50
PROVIDERS: PCP Family Medicine; Visit Provider Physician Assistant
DX: E11.621 Type 2 diabetes mellitus with foot ulcer (principal); L97.425 Non-pressure chronic ulcer of left heel and midfoot with muscle involvement without evidence of necrosis; L97.522 Non-pressure chronic ulcer of other part of left foot with fat layer exposed
CPT/HCPCS: G0463

== ENCOUNTER 2025-06-16 09:28 | Outpatient (OUT) | payer MEDICARE, OTHER, SELFPAY ==
--- OUTSIDE RECORDS SUMMARY | 2025-06-16 09:30 | XMS_ITS | Encounter Summary ---
Author Organization [facility] Address [address] [place] [address] Care Team Providers Care Scowman Name Role Phone Lashaun Madison Judie DO Unavailable [phone] Nitish Agrawal DO Primary Care Provider [phone] Elliot Elias MD Unavailable [phone] Ranjan Ivory MD Unavailable [phone] Encounter Details Date Type Department Care Team (Late st Contact Info) Description 05/19/2025 Abstract [facility] [place] [facility] [address] [facility] [address] [place] [address] Nitish Agrawal, [address] [facility] [address] [place] [address] Social History Tobacco Use Types Packs/Day Years [...] 8:30 AM EST Office Visit [facility] [place] [facility] [address] [place] [address] Lashaun Madison DO [address] [place] [address] 12/07/2025 10:00 AM EST Office Visit [facility] [place] [facility] [address] [place] [address] Joyce Loyd, LAZARO [address] [place] [address] documented as of this encounter Visit Diagnoses Not on filedocumented in this encounter Additional Health Concerns Assessment Noted Time PHQ-9 Depression Total Score: 0 12/04/19 11:00 AM EST documented as of this encounter Care Teams Scowman Relationship Specialty Start Date End Date Lashaun Madison DO [address] [place] [address] PCP - ACO Reach 03/29/23 Nitish Agrawal DO [address] [place] [address] PCP - General Family Medicine 03/13/23 Elliot Elias MD 703 [facility] 2, [address] [place] [address] Referring Physician Cardiology 12/04/24 Ranjan Ivory MD [address] [place] [address] [place] [address] Referring Physician Podiatry 12/04/24 documented as of this encounter
--- OUTSIDE RECORDS SUMMARY | 2025-06-16 09:31 | XMS_ITS | Encounter Summary ---
Author Organization [facility] Address [address] [place] [address] Phone Care Team Providers Care Line Painting Machine Operator Name Role Phone Nitish Agrawal DO Primary Care Provider [phone] Encounter Details Date Type Department Care Team (Late st Contact Info) Description 11/07/2021 Orders Only [facility] [address] [place] [address] Conversion, Onbase Social History Tobacco Use Types [...] [facility] [address] [employer] [address] [place] [address] Martin Elias DO [address], [address] [place] [address] Scheduled Orders Name Type Priority Associated Diagnoses Orde r Schedule OUTSIDE LAB SCAN Lab Ordered: 11/07/2021 documented as of this encounter Visit Diagnoses Not on filedocumented in this encounter Care Teams Line Painting Machine Operator Relationship Specialty Start Date End Date Nitish Agrawal DO [address] [place] [address] PCP - General 09/18/19 documented as of this encounter
--- OUTSIDE RECORDS SUMMARY | 2025-06-16 09:31 | XMS_ITS | Encounter Summary ---
Author Organization [facility] Address [address] [place] [address] Care Team Providers Care Bumper And Painter Name Role Phone Lashaun Madison Judie DO Unavailable [phone] Nitish Agrawal DO Primary Care Provider [phone] Elliot Elias MD Unavailable [phone] Ranjan Ivory MD Unavailable [phone] Encounter Details Date Type Department Care Team (Late st Contact Info) Description 08/09/2023 Orders Only [facility] [address] [place] [address] A, Unknown Practice [address] [phone] Social History Tobacco Use Types Packs/Day Years [...] 8:30 AM EST Office Visit [facility] [address] [place] [address] Lashaun Madison DO [address] [place] [address] 12/07/2025 10:00 AM EST Office Visit [facility] [address] [place] [address] Joyce Loyd NP [address] [place] [address] documented as of this encounter Procedures Procedure [...] on filedocumented in this encounter Care Teams Bumper And Painter Relationship Specialty Start Date End Date Lashaun Madison DO [address] [place] [address] PCP - ACO Reach 03/29/23 Nitish Agrawal DO [address] [place] [address] PCP - General Family Medicine 03/13/23 Elliot Elias MD 703 [facility] 2, [address] [place] [address] Referring Physician Cardiology 12/04/24 Ranjan Ivory MD [address] [place] [address] Dr LUCAS [place], [place] [address] Referring Physician Podiatry 12/04/24 documented as of this encounter
--- OUTSIDE RECORDS SUMMARY | 2025-06-16 09:31 | XMS_ITS | Encounter Summary ---
Author Organization [facility] Address [address] [place] [address] Care Team Providers Care Peoplesoft Business Analyst Name Role Phone Lashaun Madison Judie DO Unavailable [phone] Nitish Agrawal DO Primary Care Provider [phone] Elliot Elias MD Unavailable [phone] Ranjan Ivory MD Unavailable [phone] Encounter Details Date Type Department Care Team ([facility] Contact Info) Description 10/15/2023 Abstract [facility] [address] [place] [phone] Kiel Lozano, DPJudie [address] [place], [place] [phone] Social History Tobacco Use Types Packs/Day Years [...] Upcoming Encounters Date Type Department Care Team ([facility] Contact Info) Description 09/21/2025 8:30 AM EST Office Visit [facility] [place] [facility] [address] [place] [address] Lashaun Madison DO [address] [place] [address] 12/07/2025 10:00 AM EST Office Visit [facility] [place] [facility] [address] [place] [address] Joyce Loyd, ELECTRIC STOP INSTALLER [address] [place] [address] documented as of this encounter Visit Diagnoses Not on filedocumented in this encounter Care Teams Peoplesoft Business Analyst Relationship Specialty Start Date End Date Lashaun Madison DO [address] [place] [address] PCP - ACO Reach 03/29/23 Nitish Agrawal DO [address] [place] [address] PCP - General Family Medicine 03/13/23 Elliot Elias MD 703 [facility] 2, [address] [place] [address] Referring Physician Cardiology 12/04/24 Ranjan Ivory MD [address] [place] [address] [place] [address] Referring Physician Podiatry 12/04/24 documented as of this encounter
--- OUTSIDE RECORDS SUMMARY | 2025-06-16 09:31 | XMS_ITS | Encounter Summary ---
Author Organization [facility] Address [address] [place] [address] Care Team Providers Care Mechanical Intern Name Role Phone Lashaun Madison Judie DO Unavailable [phone] Nitish Agrawal DO Primary Care Provider [phone] Elliot Elias MD Unavailable [phone] Ranjan Ivory MD Unavailable [phone] Encounter Details Date Type Department Care Team (Late st Contact Info) Description 06/05/2025 Results Follow-Up [facility] [address] [facility] [address] [place] [phone] Robin Caicedo PA [address] [facility] 230 [place] [address] Social History Tobacco Use Types Packs/Day Years [...] Description 09/21/2025 8:30 AM EST [facility] [address] [place] [address] Lashaun Madison DO [address] [place] [address] 12/07/2025 10:00 AM EST Office Visit [facility] [address] [place] [address] Joyce Loyd NP [address] [place] [address] documented as of this encounter Visit Diagnoses Not on filedocumented in this encounter Additional Health Concerns Assessment Noted Time PHQ-9 Depression Total Score: 0 12/04/19 25 11:00 AM EST documented as of this encounter Care Teams Mechanical Intern Relationship Specialty Start Date End Date Lashaun Madison DO [address] [facility] 230 [place] [address] PCP - ACO Reach 03/29/23 Nitish Agrawal DO [address] [facility] 230 [place] [address] PCP - General Family Medicine 03/13/23 Elliot Elias MD [address] [place] [address] 2, [facility] 250 [place] [address] Referring Physician Cardiology 12/04/24 Ranjan Ivory MD [address] [place] [address] [place] [address] Referring Physician Podiatry 12/04/24 documented as of this encounter
--- OUTSIDE RECORDS SUMMARY | 2025-06-16 09:31 | XMS_ITS | Clinical Summary ---
Author Organization [facility] Address [address] [place] [address] Phone Care Team Providers Care Home Improvement Advisor Name Role Phone Nitish Agrawal DO Primary Care Provider [phone] Allergies Active Allergy Reactions Criticality Noted Date [...] Type Department Care Team Description 05/07/[address] [address] Franchesca Adan LPN POC 04/11/2025 Refill [facility] [address] [place] [address] Martin Elias, Multiple vessel coronary artery disease; Hypertension, unspecified type 03/17/[address] [place] [address] Franchesca Adan LPN 03/17/[address] [address] Cristin Fluton RN from Last 3 Months Immunizations Immunization [...] Description 08/04/2025 11:10 AM EDT Office Visit [address] [place] [address] Martin Elias, 703 [facility] [address], [address] [place] [address] Health Maintenance Due Date Last [...] this topic Meningococcal Vaccine Aged Out No mlea celia eligible based on patient's age to complete this topic Rotavirus Vaccines Aged Out No longer eligible based on patient's age to complete this topic Insurance [facility] MEDICARE SUPPLEMENT MEDICARE PART A AND B Care Teams Home Improvement Advisor Relationship Specialty Start Date End Date Nitish Agrawal DO [address] [place] [phone] PCP - General 09/18/19
--- OUTSIDE RECORDS SUMMARY | 2025-06-16 09:31 | XMS_ITS | Encounter Summary ---
Author Organization [facility] Address [address] [place] [address] Care Team Providers Care Steel Placer Name Role Phone Lashaun Madison DO Unavailable [phone] Nitish Agrawal DO Primary Care Provider [phone] Elliot Elias MD Unavailable [phone] Ranjan Ivory MD Unavailable [phone] Encounter Details Date Type Department Care Team (Late st Contact Info) Description 06/30/2023 Abstract [facility] [address] [place] [address] Kiel Lozano, DPJudie [address] [place], [place] [address] Social History Tobacco Use Types Packs/Day Years [...] [facility] [address] [facility] 230 [place] [address] Lashaun Madison DO [address] [facility] [address] [place] [address] 12/07/2025 10:00 AM EST Office Visit [facility] [place] [facility] [address] [place] [address] Joyce Loyd, BOWLING BALL MARKER [address] [place] [address] documented as of this encounter Visit Diagnoses Not on filedocumented in this encounter Care Teams Steel Placer Relationship Specialty Start Date End Date Lashaun Madison DO [address] [place] [address] PCP - ACO Reach 03/29/23 Nitish Agrawal DO [address] [place] [address] PCP - General Family Medicine 03/13/23 Elliot Elias MD 703 [facility] 2, [address] [place] [address] Referring Physician Cardiology 12/04/24 Ranjan Ivory MD [address] [place] [address] [place] [address] Referring Physician Podiatry 12/04/24 documented as of this encounter
--- OUTSIDE RECORDS SUMMARY | 2025-06-16 09:31 | XMS_ITS | Encounter Summary ---
Author Organization [facility] Address [address] [place] [address] Care Team Providers Care Tool Inspector Name Role Phone Lashaun Madison DO Unavailable [phone] Nitish Agrawal DO Primary Care Provider [phone] Elliot Elias MD Unavailable [phone] Ranjan Ivory MD Unavailable [phone] Encounter Details Date Type Department Care Team (Late st Contact Info) Description 04/09/2023 Orders Only [facility] [address] [place] [address] Nitish Agrawal DO [address] [place] [address] Social History Tobacco Use Types Packs/Day Years [...] 09/21/2025 8:30 AM EST Office Visit [facility] [address] [place] [address] aLshaun Madison DO [address] [place] [address] 12/07/2025 10:00 AM EST Office Visit [facility] [address] [place] [address] Joyce Loyd, CONTINUITY EDITOR [address] [place] [address] documented as of this encounter Procedures Procedure [...] on filedocumented in this encounter Care Teams Tool Inspector Relationship Specialty Start Date End Date Lashaun Madison DO [address] [place] [address] PCP - ACO Reach 03/29/23 Nitish Agrawal DO [address] [place] [address] PCP - General Family Medicine 03/13/23 Elliot Elias MD 703 [facility] 2, [address] [place] [address] Referring Physician Cardiology 12/04/24 Ranjan Ivory MD [address] [place] [address] [place] [address] Referring Physician Podiatry 12/04/24 documented as of this encounter
--- OUTSIDE RECORDS SUMMARY | 2025-06-16 09:31 | XMS_ITS | Encounter Summary ---
Author Organization [facility] Address [address] [place] [address] Care Team Providers Care Director Of Marketing Communications Name Role Phone Lashaun Madison Judie DO Unavailable [phone] Nitish Agrawal DO Primary Care Provider [phone] Elliot Elias MD Unavailable [phone] Ranjan Ivory MD Unavailable [phone] Encounter Details Date Type Department Care Team (Late st Contact Info) Description 05/15/2025 Abstract [facility] [place] [facility] [address] [facility] [address] [place] [address] Nitish Agrawal, [address] [facility] [address] [place] [address] Social History Tobacco Use Types Packs/Day Years [...] 8:30 AM EST Office Visit [facility] [place] [facility] [address] [place] [address] Lashaun Madison DO [address] [place] [address] 12/07/2025 10:00 AM EST Office Visit [facility] [place] [facility] [address] [place] [address] Joyec Loyd, LAZARO [address] [place] [address] documented as of this encounter Visit Diagnoses Not on filedocumented in this encounter Additional Health Concerns Assessment Noted Time PHQ-9 Depression Total Score: 0 12/04/19 11:00 AM EST documented as of this encounter Care Teams Director Of Marketing Communications Relationship Specialty Start Date End Date Lashaun Madison DO [address] [place] [address] PCP - ACO Reach 03/29/23 Nitish Agrawal DO [address] [place] [address] PCP - General Family Medicine 03/13/23 Elliot Elias MD 703 [facility] 2, [address] [place] [address] Referring Physician Cardiology 12/04/24 Ranjan Ivory MD [address] [place] [address] [place] [address] Referring Physician Podiatry 12/04/24 documented as of this encounter
--- OUTSIDE RECORDS SUMMARY | 2025-06-16 09:31 | XMS_ITS | Clinical Summary ---
Author Organization [facility] Address [id number] [address] [place] [address] Care Team Providers Care Senior Cytogenetics Laboratory Director Name Role Phone Brittany York Primary Care Provider [phone] Social History Tobacco Use Types Packs/Day Years [...] Medical Devices Not on file Care Teams Senior Cytogenetics Laboratory Director Relationship Specialty Start Date End Date Brittany York APRN-CNP [address] [place] [address] PCP - General Family Medicine 01/12/21
--- OUTSIDE RECORDS SUMMARY | 2025-06-16 09:31 | XMS_ITS | Encounter Summary ---
Author Organization [facility] Address [address] [place] [address] Care Team Providers Care Internal Investigator Name Role Phone Lashaun Madison DO Unavailable [phone] Nitish Agrawal DO Primary Care Provider [phone] Elliot Elias MD Unavailable [phone] Ranjan Ivory MD Unavailable [phone] Encounter Details Date Type Department Care Team (Late st Contact Info) Description 08/06/2023 Abstract [facility] [place] [facility] [address] [facility] [address] [place] [address] Lashaun Madison, DO [address] [facility] 230 [place] [address] Social History Tobacco Use Types Packs/Day Years [...] one occasion? Never 08/06/2023 1:02 PM Zoie Braynt LPN * Over the past 2 weeks, [...] Description 09/21/2025 8:30 AM EST Office Visit [facility] [address] [place] [address] Lashaun Madison DO [address] [place] [address] 12/07/2025 10:00 AM EST Office Visit [facility] [address] [place] [address] Joyce Loyd NP [address] [place] [address] documented as of this encounter Visit Diagnoses Not on filedocumented in this encounter Care Teams Internal Investigator Relationship Specialty Start Date End Date Lashaun Madison DO [address] [place] [address] PCP - ACO Reach 03/29/23 Nitish Agrawal DO [address] [place] [address] PCP - General Family Medicine 03/13/23 Elliot Elias MD 703 [facility] 2, [address] [place] [address] Referring Physician Cardiology 12/04/24 Ranjan Ivory MD [address] [place] [address] [place] [address] Referring Physician Podiatry 12/04/24 documented as of this encounter
--- OUTSIDE RECORDS SUMMARY | 2025-06-16 09:31 | XMS_ITS | Clinical Summary ---
Author Organization [facility] Address [address] [facility] [place] [address] Care Team Providers Care Marketing Intelligence Analyst Name Role Phone Lashaun Madison Judie RICH Unavailable [phone] Nitish Martin DO Primary Care Provider [phone] Elliot Elias MD Unavailable [phone] Nisha Ivory MD Unavailable [phone] Allergies No known active allergies Medications isosorbide [...] chest pain. Active Blood Glucose Monitoring Suppl ([employer] Verio Flex System) w/Device kit Active glucose [...] unspecified 03/29/2016 Atherosclerotic heart diseas e of [place] coronary artery without angina pectoris 03/29/2016 Gastro-esophageal [...] Care Team Description 06/05/2025 Results Follow-Up [facility] [address] [place] [address] Robin Caicedo, PA 05/30/2025 Refill [facility] [address] [place] [address] Lashaun Madison, Type 2 diabetes mellitus with other circulatory complications (HCC) 05/24/2025 Refill [facility] [address] [place] [address] Robin Caicedo, PA Anxiety 05/20/2025 Clinisync Result Encounter NOMS External Department Unsolicited Provider, Generic External Data 05/19/2025 Abstract [facility] [address] [place] [address] Nitish Martin, DO 05/18/2025 Clinisync Result Encounter NOMS External Department Unsolicited Provider, Generic External Data 05/15/2025 Clinisync Result Encounter NOMS External Department Unsolicited Provider, Generic External Data 05/15/2025 Abstract [facility] [address] [place] [address] Nitish Martin, DO 05/15/2025 Abstract [facility] [address] [place] [address] Nitish Martin, DO 05/15/2025 Clinisync Result Encounter NOMS External Department Unsolicited Provider, Generic External Data 04/22/2025 Clinisync Result Encounter NOMS External Department Unsolicited Provider, Generic External Data 03/27/2025 8:45 AM EDT Office Visit [facility] [address] [place] [address] Lashaun Madison, DO Type 2 diabetes mellitus with stage 3a chronic kidney disease, without long-term current use of insulin (HCC); Type 2 diabetes mellitus with other circulatory complications (HCC) 03/27/2025 Orders Only [facility] [address] [place] [address] Joyce Loyd, LAZARO Colon cancer screening (Primary [...] 09/21/2025 8:30 AM EST Office Visit [facility] [address] [place] [address] Lashaun Madison DO [address] [place] [address] 12/07/2025 10:00 AM EST Office Visit [facility] [address] [place] [address] Joyce Loyd, LAZARO [address] [place] [address] Health Maintenance Due Date Last Done Comments [...] STL-IMP Negative Negative 06/05/2025 5:35 AM EDT [facility] (CLIA #:[id number]) Comment: The Cologuard Plus (TM) test was performed on this specimen. NEGATIVE TEST RESULT. A negative (normal) Cologuard Plus result means the patient has a hqpc-nwsb-qcsjqnl chance of having colorectal cancer (CRC) or [...] a 91% specificity (Cologuard Plus Clinician Brochure. [employer]. [place] Visit [email or web address].com/about/peluvjaq-[email or web address] for more test information, references, warnings, and precautions. Stool specimen (specimen) 05/28/2025 7:00 AM EDT 05/29/2025 11:06 AM EDT us Joyce Loyd [facility] MOLECULAR DIAGNOSTICS ORDERA BLES Final Result .[employer] (CLIA #:[id number]) [address] [address], [employer] (CLIA #:[id number]) [address] [address] * XR FOOT LT MIN 3V (05/20/2025 8:21 AM EDT) Only the most recent of2 resultswithin the time period is included. Anatomical Region Laterality Modality Other 05/20/2025 8:21 AM EDT Narrative 05/20/2025 8:23 [place] [address] XRay Report Signed Patient: JANICE PANDYA Jr. MR#: [id number] : 1955 Acct:[id number] Age/Sex: 70 / M ADM Date: 05/19/25 Loc: SURGOUT Attending Dr: Nisha Ivory D.P.M. Ordering Physician: Nisha Ivory D.P.M. Date of Service: 05/19/25 Procedure(s): XR foot LT min 3V Accession Number(s): [id number] cc: NITISH MARTIN ; Nisha Ivory D.P.M. [place] [id number] Patient Name: JANICE PANDYA MRN: [id number] date: 1955 Sex: M Assigned Patient Location: [facility] Current Patient Location: Accession/Order Number: [id number] Exam Date: 05/20/2025 08:15 Report Date: 05/20/2025 [...] Owens M.D. 05/20/2025 8:21 AM Dictation Location: [place] [address] Electronically authenticated by: [id number] Y Date: 05/20/2025 08:21 Dictated By: Melani Owens M.D. Signed By: 05/20/25 0823 DD/ 08 TD/TT: Plating Equipment Tender: Procedure Note Radiology, Radiologist, MD - 05/20/2025 [place] [address] XRay Report Signed Patient: JANICE PANDYA Jr.MR#: [id number] : 1955cct:[id number] Age/Sex: 70 / MADM Date: 05/19/25 Loc: SURGOUT Attending Dr: Nisha Ivory D.P.M. Ordering Physician: Nisha Ivory D.P.M. Date of Service: 05/19/25 Procedure(s): XR foot LT min 3V Accession Number(s): [id number] cc: NITISH MARTIN ; Nisha Ivory D.P.M. The [place] [address] Patient Name: JANICE PANDYA MRN: [id number] date: 1955 Sex: M Assigned [facility] Current Patient Location: Accession/Order Number: [id number] Exam Date: 05/20/2025 08:15 Report Date: 05/20/2025 [...] Owens M.D. 05/20/2025 8:21 AM Dictation Location: [place] [address] Electronically authenticated by: [id number] Y Date: 508:21 Dictated By: Melani Owens M.D. Signed By:05/20/25 0823 DD/ 08 TD/TT: Plating Equipment Tender: us Generic External Data Provider [facility] IMAGING Final Result * SEGMENTAL BLOOD PRESSURE (05/18/2025 8:40 AM EDT) Anatomical Region Laterality Modality Radiographic Kelly ging 05/18/2025 8:40 AM EDT Narrative 05/19/2025 12:57 PM EDT The [place] [id number] Cardiology Report Signed Patient: JANICE PANDYA Jr. MR#: [id number] : 1955 Acct:[id number] Age/Sex: 70 / M ADM Date: 05/18/25 Loc: CARD Attending Dr: Gisela HARRIS Ordering Physician: Gisela Crandall Date of Service: 05/18/25 Procedure(s): CA segmental UE or LE ANTHONY Accession Number(s): [id number] cc: NITISH MARTIN ; Gisela Crandall [facility] Test Date: 2025-05-18 Pat Name: JANICE PANDYA Department: Room: - Gender: Male Book Retailer: : 1955 Requested By: Gisela Crandall Order Number: [id number] Reading MD: DEBRA FAITH Interpretive Statements Normal [...] 05/19/25 1257 05/19/25 1257 DD/ 0840 TD/TT: Plating Equipment Tender: Procedure Note Radiology, Radiologist, MD - 05/19/2025 The [place] [id number] Cardiology Report Signed Patient: JANICE PANDYA Jr.MR#: [id number] : 1955cct:[id number] Age/Sex: 70 / MADM Date: 05/18/25 Loc: CARD Attending Dr: Gisela HARRIS Ordering Physician: Gisela Crandall Date of Service: 05/18/25 Procedure(s): CA segmental UE or LE ANTHONY Accession Number(s): [id number] cc: NITISH MARTIN ; Gisela Crandall [facility] Test Date: 2025-05-18 Pat Name: JANICE PANDYA Department: Room: - Gender: Male Book Retailer: : 1955 Requested By: Gisela Crandall Order Number: [id number] Reading MD: DEBRA FAITH Interpretive Statements Normal [...] By:05/19/25 1257 05/19/25 1257 DD/ 0840 TD/TT: Plating Equipment Tender: us Generic External Data Provider IMG XR PROCEDURES Final Result * XR CHEST 2V (05/15/2025 10:49 AM EDT) Anatomical Region Laterality Modality Other 05/15/2025 10:4 9 AM EDT Narrative 05/15/2025 10:51 [place] [address] XRay Report Signed Patient: JANICE PANDYA Jr. MR#: [id number] : 1955 Acct:[id number] Age/Sex: 70 / M ADM Date: 05/15/25 Loc: PST Attending Dr: Nisha Ivory D.P.M. Ordering Physician: Nisha Ivory D.P.M. Date of Service: 05/15/25 Procedure(s): XR chest 2V Accession Number(s): [id number] cc: NITISH MARTIN ; Nisha Ivory D.P.M. The [address] [address] Patient Name: JANICE PANDYA MRN: [id number] date: 1955 Sex: M Assigned Patient Location: [facility] Current Patient Location: [facility] Accession/Order Number: [id number] Exam Date: 05/15/2025 10:46 Report Date: 05/15/2025 [...] Owens M.D. 05/15/2025 10:49 AM Dictation Location: [place] [address] Electronically authenticated by: [id number] Y Date: 05/15/2025 10:49 Dictated By: Melani Owens M.D. Signed By: 05/15/25 1051 DD/ 1049 TD/TT: Plating Equipment Tender: Procedure Note Radiology, Radiologist, MD - 05/15/2025 [place] [address] XRay Report Signed Patient: JANICE PANDYA Jr.MR#: [id number] : 1955cct:[id number] Age/Sex: 70 / MADM Date: 05/15/25 Loc: [facility] Attending Dr: Nisha Ivory D.P.M. Ordering Physician: Nisha Ivory D.P.M. Date of Service: 05/15/25 Procedure(s): XR chest 2V Accession Number(s): [id number] cc: NITISH MARTIN ; Nisha Ivory D.P.M. The [place] [id number] Patient Name: JANICE PANDYA MRN: [id number] date: 1955 Sex: M Assigned Patient Location: [facility] Current Patient Location: [facility] Accession/Order Number: [id number] Exam Date: 05/15/2025 10:46 Report Date: 05/15/2025 [...] Owens M.D. 05/15/2025 10:49 AM Dictation Location: [place] [address] Electronically authenticated by: [id number] Y Date: 0:49 Dictated By: Melani Owens M.D. Signed By:05/15/25 1051 DD/ 1049 TD/TT: Plating Equipment Tender: Generic External Data Provider [facility] Final [...] Data Provider CLINISYNC F inal Result [facility]NC [facility] * CCF APTT (05/15/2025 10:35 AM EDT) PARTIAL THROMBOPLASTIN TIME 32.2 22.3 - 36.2 sec [facility] 05/15/2025 10:3 5 AM EDT 05/15/2025 10:40 AM EDT Narrative CLINISYNC - 05/15/2025 11:18 AM EDT us Generic External Data Provider CLIN[facility]YNC F inal Result ANH [facility] * (ABNORMAL) ALL CBC WITH AUTO DIFF (05/15/2025 10:35 AM EDT) Pathologist [facility] WBC 7.1 4.0 - 11.0 10 [...] 0.70 - 1.30 mg/dL TBH TBH EGFR-AF [place] >60 >=60 mL/min/1.7 3m 2 TBH TBH EGFR-NON AF [place] 54(L) >=60 mL/min/1.7 3m 2 TBH BUN CREATININE RATIO 18.9 TBH CALCIUM 8.5 8.5 - 10.1 mg/dL [facility] 05/15/2025 10:3 5 AM EDT 05/15/2025 10:40 AM EDT Narrative CLINISYNC - 05/15/2025 11:26 AM EDT Generic External Data Provider CLINISYNC F inal Result [facility] * ECG 12-LEAD (05/15/2025 8:31 AM EDT) Anatomical Region Laterality Modality Other 05/15/2025 8:31 AM EDT Narrative 05/19/2025 4:10 [place] [address] Electrocardiograph Report Signed Patient: JANICE PANDYA Jr. MR#: [id number] : 1955 Acct:[id number] Age/Sex: 70 / M ADM Date: 05/15/25 Loc: PST Attending Dr: Nisha Ivory D.P.M. Ordering Physician: Nisha Ivory D.P.M. Date of Service: 05/15/25 Procedure(s): ECG 12 lead Accession Number(s): [id number] cc: [facility] Test Date: 2025-05-15 Pat Name: JANICE PANDYA Department: Room: - Gender: Male Book Retailer: : 1955 Requested By: NISHA IVORY Order Number: [id number] Reading MD: DEBRA FAITH Measurements Intervals [place] Rate: 63 P: 21 OK: 288 QRS: 35 QRSD: 114 T: 146 [...] Signed By: 05/19/25 1610 DD/ 0831 TD/TT: Plating Equipment Tender: Procedure Note Radiology, Radiologist, - 05/19/2025 The [place] [id number] Electrocardiograph Report Signed Patient: JANICE PANDYA Jr.MR#: [id number] : 1955cct:[id number] Age/Sex: 70 / MADM Date: 05/15/25 Loc: PST Attending Dr: Nisha Ivory D.P.M. Ordering Physician: Nisha Ivory D.P.M. Date of Service: 05/15/25 Procedure(s): ECG 12 lead Accession Number(s): [id number] cc: [facility] Test Date: 2025-05-15 Pat Name: JANICE PANDYA Department: Room: - Gender: Male Book Retailer: : 1955 Requested By: NISHA IVORY Order Number: [id number] Reading MD: DEBRA FAITH Measurements Intervals [place] Rate: 63 P: 21 OK: 288 QRS: 35 QRSD: 114 T: 146 [...] M.D. Signed By:05/19/25 1610 DD/ 0831 TD/TT: Plating Equipment Tender: Generic External Data Provider [facility]AG[facility] Final [...] 12/02/2024 10:07 AM EST Performed at: - [facility] [id number] Coat Tailor: Leonardo Stevens PhD, Phone: [phone] us Lashaun Madison DO LAB URINE ORDERABLES Final Result [facility] * Color Fundus Photography - OU - Both Eyes (06/27/2022 12:00 PM EDT) Anatomical Region Laterality Modality Head Fundus Photograp hy 06/27/2022 12:0 0 PM EDT Narrative 06/27/2022 12:00 PM EDT PERFORMED AT [facility] LOCATION:[id number] [facility] Procedure Note CONVERSION, GENERIC - 03/21/2023 PERFORMED AT [facility] LOCATION:[id number] [facility] us Lashaun Madison DO OPHTH PHOTOGRAPHY Final Re sult from Last 3 Months or Most Recently Relevant to Health Maintenance Insurance [facility]ARE [facility] [place] Care Teams Marketing Intelligence Analyst Relationship Specialty Start Date End Date Lashaun Madison DO [address] [place] [address] PCP - ACO Reach 03/29/23 Nitish Martin DO [address] [facility] [address] [place] [address] PCP - General Family Medicine 03/13/23 Elliot Elias MD [address] [facility] [address], [address] [place] [address] Referring Physician Cardiology 12/04/24 Nisha Ivory MD [address] [place] [address] [place] [address] Referring Physician Podiatry 12/04/24
--- OUTSIDE RECORDS SUMMARY | 2025-06-16 09:31 | XMS_ITS | Encounter Summary ---
Author Organization [facility] Address [address] [place] [address] Care Team Providers Care Modeling Agent Name Role Phone Lashaun Madison DO Unavailable [phone] Nitish Agrawal DO Primary Care Provider [phone] Elliot Elias MD Unavailable [phone] Ranjan Ivory MD Unavailable [phone] Reason for Visit * Reason Comments Med Refill Encounter Details Date Type Department Care Team (Late st Contact Info) Description 03/04/2024 Refill [facility] [place] [facility] [address] [facility] [address] [place] [address] Lashaun Madison, DO [address] [facility] [address] [place] [address] Type 2 diabetes mellitus with other circulatory [...] 09/21/2025 8:30 AM EST Office Visit [facility] [address] [place] [address] Lashaun Madison DO [address] [place] [address] 12/07/2025 10:00 AM EST Office Visit [facility] [address] [place] [address] Joyce Loyd NP [address] [place] [address] documented as of this encounter Visit Diagnoses Diagnosis Type 2 diabetes mellitus with other circulatory complications (HCC) documented in this encounter Care Teams Modeling Agent Relationship Specialty Start Date End Date Lashaun Madison DO [address] [place] [address] PCP - ACO Reach 03/29/23 Nitish Agrawal DO [address] [place] [address] PCP - General Family Medicine 03/13/23 Elliot Elias MD [facility], [address] [place] [address] Referring Physician Cardiology 12/04/24 Ranjan Ivory MD [address] [place] [address] [place] [address] Referring Physician Podiatry 12/04/24 documented as of this encounter
--- OUTSIDE RECORDS SUMMARY | 2025-06-16 09:31 | XMS_ITS | Encounter Summary ---
Author Organization [facility] Address [address] [place] [address] Phone Care Team Providers Care Grinding Machine Operator Portable Name Role Phone Nitish Agrawal DO Primary Care Provider [phone] Encounter Details Date Type Department Care Team (Late st Contact Info) Description 01/15/2019 Orders Only [facility] LEGACY [address] [place] [address] Conversion, Onbase Social History Tobacco Use Types [...] Description 08/04/2025 11:10 AM EDT Office Visit [facility] [address] [facility] [address] [place] [address] Martin Elias DO 7[address] [facility] 2, [address] [place] [address] Scheduled Orders Name Type Priority Associated Diagnoses Orde r Schedule OUTSIDE LAB SCAN Lab Ordered: 01/15/2019 documented as of this encounter Visit Diagnoses Not on filedocumented in this encounter Care Teams Grinding Machine Operator Portable Relationship Specialty Start Date End Date Nitish Agrawal DO [address] [place] [address] PCP - General 09/18/19 documented as of this encounter
--- OUTSIDE RECORDS SUMMARY | 2025-06-16 09:31 | XMS_ITS | Encounter Summary ---
Author Organization [facility] Address [address] [place] [address] Care Team Providers Care Testing Coordinator Name Role Phone Lashaun Madison Judie DO Unavailable [phone] Nitish Agrawal DO Primary Care Provider [phone] Elliot Elias MD Unavailable [phone] Ranjan Ivory MD Unavailable [phone] Encounter Details Date Type Department Care Team (Late st Contact Info) Description 05/15/2025 Abstract [facility] [place] [facility] [address] [facility] [address] [place] [address] Nitish Agrawal, [address] [facility] [address] [place] [address] Social History Tobacco Use Types Packs/Day Years [...] 8:30 AM EST Office Visit [facility] [place] [facility] [address] [place] [address] Lashaun [place] DO [address] [place] [address] 12/07/2025 10:00 AM EST Office Visit [facility] [place] [facility] [address] [place] [address] Joyce Loyd, LAZARO [address] [place] [address] documented as of this encounter Visit Diagnoses Not on filedocumented in this encounter Additional Health Concerns Assessment Noted Time PHQ-9 Depression Total Score: 0 12/04/19 11:00 AM EST documented as of this encounter Care Teams Testing Coordinator Relationship Specialty Start Date End Date Lashaun Madison DO [address] [place] [address] PCP - ACO Reach 03/29/23 Nitish Agrawal DO [address] [place] [address] PCP - General Family Medicine 03/13/23 Elliot Elias MD 703 [facility] 2, [address] [place] [address] Referring Physician Cardiology 12/04/24 Ranjan Ivory MD [address] [place] [address] [place] [address] Referring Physician Podiatry 12/04/24 documented as of this encounter
--- OUTSIDE RECORDS SUMMARY | 2025-06-16 09:31 | XMS_ITS | Encounter Summary ---
Author Organization [facility] Address [address] [place] [address] Phone Care Team Providers Care Reimbursement Manager Name Role Phone Nitish Agrawal DO Primary Care Provider [phone] Encounter Details Date Type Department Care Team (Late st Contact Info) Description 06/09/2022 Orders Only [facility] [address] [place] [address] Conversion, Onbase Social History Tobacco Use Types [...] Description 08/04/2025 11:10 AM EDT Office Visit [facility] [facility] [address] [place] [address] Martin Elias DO [address] [place] [address] Scheduled Orders Name Type Priority Associated Diagnoses Orde r Schedule OUTSIDE LAB SCAN Lab Ordered: 06/09/2022 documented as of this encounter Visit Diagnoses Not on filedocumented in this encounter Care Teams Reimbursement Manager Relationship Specialty Start Date End Date Nitish Agrawal DO [address] [place] [address] PCP - General 09/18/19 documented as of this encounter
--- OUTSIDE RECORDS SUMMARY | 2025-06-16 09:31 | XMS_ITS | Encounter Summary ---
Author Organization [facility] Address [address] [place] [address] Phone Care Team Providers Care Prescription Benefit Specialist Name Role Phone Nitish Agrawal DO Primary Care Provider [phone] Encounter Details Date Type Department Care Team (Late st Contact Info) Description 03/07/2021 Orders Only [facility] LEGACY [address] [place] [address] Conversion, Onbase Social History Tobacco Use Types [...] Description 08/04/2025 11:10 AM EDT Office Visit [facility] 7[address] [facility] [address] [place] [address] Martin Elias DO [address], [address] [place] [address] Scheduled Orders Name Type Priority Associated Diagnoses Orde r Schedule OUTSIDE LAB SCAN Lab Ordered: 03/07/2021 documented as of this encounter Visit Diagnoses Not on filedocumented in this encounter Care Teams Prescription Benefit Specialist Relationship Specialty Start Date End Date Nitish Agrawal DO [address] [place] [address] PCP - General 09/18/19 documented as of this encounter
--- OUTSIDE RECORDS SUMMARY | 2025-06-16 09:31 | XMS_ITS | Encounter Summary ---
Author Organization [facility] Address [address] [place] [address] Care Team Providers Care Plant Buyer Name Role Phone Lashaun Madison DO Unavailable [phone] Nitish Agrawal DO Primary Care Provider [phone] Elliot Elias MD Unavailable [phone] Ranjan Ivory MD Unavailable [phone] Encounter Details Date Type Department Care Team (Late st Contact Info) Description 07/19/2023 Abstract [facility] [address] [place] [address] Kiel Lozano, DPJudie [address] [place], [place] [address] Social History Tobacco Use Types Packs/Day Years [...] Family Practice [address] [facility] 230 [place] [address] Lashaun Madison DO [address] [place] [address] 12/07/2025 10:00 AM EST Office Visit [facility] [place] [facility] [address] [place] [address] Joyce Loyd, ENGINE INSTALLER [address] [place] [address] documented as of this encounter Visit Diagnoses Not on filedocumented in this encounter Care Teams Plant Buyer Relationship Specialty Start Date End Date Lashaun Madison DO [address] [place] [address] PCP - ACO Reach 03/29/23 Nitish Agrawal DO [address] [place] [address] PCP - General Family Medicine 03/13/23 Elliot Elias MD [address] [place] [address] [address], [address] [place] [address] Referring Physician Cardiology 12/04/24 Ranjan Ivory MD [address] [place] [address] [place] [address] Referring Physician Podiatry 12/04/24 documented as of this encounter
--- OUTSIDE RECORDS SUMMARY | 2025-06-16 09:31 | XMS_ITS | Encounter Summary ---
Author Organization [facility] Address [address] [place] [address] Care Team Providers Care Hand Polisher Name Role Phone Lashaun Madison Judie DO Unavailable [phone] Nitish Agrawal DO Primary Care Provider [phone] Elliot Elias MD Unavailable [phone] Ranjan Ivory MD Unavailable [phone] Encounter Details Date Type Department Care Team (Late st Contact Info) Description 02/19/2024 Abstract [facility] [place] [facility] [address] [facility] [address] [place] [phone] Nitish Agrawal, [address] [facility] [address] [place] [address] Social History Tobacco Use Types Packs/Day Years [...] 8:30 AM EST Office Visit [facility] [address] [place] [phone] Lashaun Madison, [address] [place] [address] 12/07/2025 10:00 AM EST Office Visit [facility] [address] [place] [phone] Joyce Loyd, ICE CREAM MAKER [address] [place] [address] documented as of this encounter Visit Diagnoses Not on filedocumented in this encounter Care Teams Hand Polisher Relationship Specialty Start Date End Date Lashaun Madison DO [address] [place] [address] PCP - ACO Reach 03/29/23 Nitish Agrawal DO [address] [place] [address] PCP - General Family Medicine 03/13/23 Elliot Elias MD [address] [facility] [address] [place] [address] Referring Physician Cardiology 12/04/24 Ranjan Ivory MD [address] [place] [address] [place] [address] Referring Physician Podiatry 12/04/24 documented as of this encounter
--- OUTSIDE RECORDS SUMMARY | 2025-06-16 09:31 | XMS_ITS | Encounter Summary ---
Author Organization [facility] Address [address] [place] [address] Care Team Providers Care Mailing Manager Name Role Phone Lashaun Madison DO Unavailable [phone] Nitish Agrawal DO Primary Care Provider [phone] Elliot Elias MD Unavailable [phone] Ranjan Ivory MD Unavailable [phone] Encounter Details Date Type Department Care Team ([facility] Contact Info) Description 02/19/2024 Abstract [facility] [place] [facility] [address] [facility] [address] [place] [phone] Lashaun Madison, DO [address] [facility] [address] [place] [address] Social History Tobacco Use Types Packs/Day Years [...] Upcoming Encounters Date Type Department Care Team ([facility] Contact Info) Description 09/21/2025 8:30 AM EST Office Visit [facility] [place] [facility] [place] [address] [place] [phone] Lashaun Madison DO [address] [place] [address] 12/07/2025 10:00 AM EST Office Visit [facility] [place] [facility] [place] [address] [place] [phone] Joyce Loyd, RURAL SERVICE ENGINEER [address] [place] [address] documented as of this encounter Visit Diagnoses Not on filedocumented in this encounter Care Teams Mailing Manager Relationship Specialty Start Date End Date Lashaun Madison DO [address] [place] [address] PCP - ACO Reach 03/29/23 Nitish Agrawal DO [address] [place] [address] PCP - General Family Medicine 03/13/23 Elliot Elias MD [address] [facility] [address], [address] [place] [address] Referring Physician Cardiology 12/04/24 Ranjan Ivory MD [address] [place] [address] [place] [address] Referring Physician Podiatry 12/04/24 documented as of this encounter
--- OUTSIDE RECORDS SUMMARY | 2025-06-16 09:31 | XMS_ITS | Encounter Summary ---
Author Organization [facility] Address [address] [place] [address] Care Team Providers Care Traffic Representative Name Role Phone Lashaun Madison DO Unavailable [phone] Nitish Agrawal DO Primary Care Provider [phone] Elliot Elias MD Unavailable [phone] Ranjan Ivory MD Unavailable [phone] Encounter Details Date Type Department Care Team (Late st Contact Info) Description 07/30/2023 Abstract [facility] [address] [place] [phone] Keil Lozano, DPJudie [address] [place], [place] [id number] Social History Tobacco Use Types Packs/Day Years [...] Family Practice [address] [facility] [address] [place] [address] Lashaun Madison DO [address] [place] [address] 12/07/2025 10:00 AM EST Office Visit [facility] [place] [facility] [address] [place] [phone] Joyce Loyd, LUMBER MOVER [address] [place] [address] documented as of this encounter Visit Diagnoses Not on filedocumented in this encounter Care Teams Traffic Representative Relationship Specialty Start Date End Date Lashaun Madison DO [address] [place] [address] PCP - ACO Reach 03/29/23 Nitish Agrawal DO [address] [place] [address] PCP - General Family Medicine 03/13/23 Elliot Elias MD [address] [place] [address] [address], [address] [place] [address] Referring Physician Cardiology 12/04/24 Ranjan Ivory MD [address] [place] [address] [place] [address] Referring Physician Podiatry 12/04/24 documented as of this encounter
== END 2025-06-16 09:29 | disposition home or self-care (01) ==
LOC: WC 09:29
PROVIDERS: PCP Family Medicine; Visit Provider Podiatrist Foot & Ankle Surgery
DX: E11.621 Type 2 diabetes mellitus with foot ulcer (principal); L97.425 Non-pressure chronic ulcer of left heel and midfoot with muscle involvement without evidence of necrosis; L97.522 Non-pressure chronic ulcer of other part of left foot with fat layer exposed
CPT/HCPCS: G0463

== ENCOUNTER 2025-06-24 10:00 | Outpatient (OUT) | payer MEDICARE, OTHER, SELFPAY ==
--- OUTSIDE RECORDS SUMMARY | 2025-07-07 15:50 | XMS_ITS | CCD ---
Author Organization [facility] Care Team Providers Care Assisted Living Associate Name Role Phone NITISH AGRAWAL~[phone] UNKNOWN Unavailable Unavailable Ayisire, Eseoghene N Unavailable [...] Unavailable Nitish Agrawal DO Primary Care Provider [phone] Lashaun Bradley DO Unavailable [phone] Nitish Agrawal DO Primary Care Provider Elliot Elias MD Unavailable Nisha Farrar MD Unavailable Nitish Agrawal DO [...] Care Unavailable Nisha Farrar DPM Attending Provider [phone] Nisha Farrar Attending Unavailable Nisha Farrar Admitting Unavailable Allergies Allergy Classification Reported Allergen(s) Allergy Type Date of Onset Reaction(s) Facility (5 sources) Angiotensin Converting Enzyme (Neris) Inhibitors; Translations: [NERIS Inhibitors] Allergy to drug (finding) 3 Hypotension [facility] Repository (7 sources) Angiotensin-conv erting enzyme inhibitor agent Drug Intolerance 3 Unknown [facility] Medications Current Medications Medication Drug Class(es) [...] Jacki cium Active Blood Glucose Monitoring Suppl ([employer] Verio Flex System) w/Device kit (20 sources) [...] [Coronary atherosclerosis of unspecified type of vessel, tunica-biloxi or graft] Onset: 03-29-2016 01-29-2024 Chronic Diabetes [...] Onset: 10-24-2022 Episodic Other aftercare (1 source) senior care (current) use of aspirin; Translations: [HIP HOP ARTIST CURRENT USE OF ASPIRIN] Onset: 03-28-2022 Episodic Other aftercare (1 source) Other buttermaker (current) drug therapy; Translations: [OTH HIP HOP ARTIST CURRENT DRUG THERAPY] Onset: 03-28-2022 Episodic Other aftercare (2 sources) senior care (current) use of insulin; Translations: [intermodal customer service (current) use of insulin (Multi)] Onset: 08-31-2023 [...] Facility XR FOOT LT MIN 3Von 05-20-20 [place] [address] XRay Report Signed Patient: JANICE FORD Jr. MR#: [id number] : 1955 Acct:[id number] Age/Sex: 70 / M ADM Date: 05/19/25 Loc: SURGOUT Attending Dr: Nisha Farrar D.P.M. Ordering Physician: Nisha Farrar D.P.M. Date of Service: 05/19/25 Procedure(s): XR foot LT min 3V Accession Number(s): [id number] cc: NITISH AGRAWAL ; Nisha Farrar D.P.M. [place] [id number] Patient Name: JANICE FORD MRN: [id number]:[id number] date: 1955 Sex: M Assigned Patient Location: [facility] Current Patient Location: Accession/Order Number: [id number] Exam Date: 05/20/2025 08:15 Report Date: 05/20/2025 [...] Owens M.D. 05/20/2025 8:21 AM Dictation Location: [place] [address] Electronically authenticated by: [id number] Date: 05/20/2025 08:21 Dictated By: Melani Owens M.D. Signed By: 05/20/25822 DD/ 0 TD/TT: Installation Coordinator: [facility] Radiology, Radiologist, MD - 05/20/2025 [place] [address] XRay Report Signed Patient: JANICE FORD Jr. MR#: [id number] : 1955 Acct:[id number] Age/Sex: 70 / M ADM Date: 05/19/25 Loc: SURGOUT Attending Dr: Nisha Farrar D.P.M. Ordering Physician: Nisha Farrar D.P.M. Date of Service: 05/19/25 Procedure(s): XR foot LT min 3V Accession Number(s): [id number] cc: NITISH AGRAWAL ; Nisha Farrar D.P.M. [place] [address] Patient Name: JANICE FORD MRN: [facility]:[id number] date: 1955 Sex: M Assigned Patient Location: [facility] Current Patient Location: Accession/Order Number: [id number] Exam Date: 05/20/2025 08:15 Report Date: 05/20/2025 [...] Owens M.D. 05/20/2025 8:21 AM Dictation Location: [place] [address] Electronically authenticated by: [id number] Y Date: 05/20/2025 08:21 Dictated By: Melani Owens M.D. Signed By: 05/20/25822 DD/ 0 TD/TT: Installation Coordinator: [facility] Radiology Study observation (narrative) [facility] XR FOOT LT MIN 3VOrdered By: Radiologist Radiology on 05-20-2025 [facility] [employer] Work Phone: ECG 12-LEADon 05-19-2025 [place] [address] Electrocardiograph Report Signed Patient: JANICE FORD Jr. MR#: [id number] : 1955 Acct:[id number] Age/Sex: 70 / M ADM Date: 05/15/25 Loc: PST Attending Dr: Nisha Farrar D.P.M. Ordering Physician: Nisha Farrar D.P.M. Date of Service: 05/15/25 Procedure(s): ECG 12 lead Accession Number(s): [id number] cc: [facility] Test Date: 2025-05-15 Pat Name: JANICE FORD Department: Room: - Gender: Male [employer] Support Workers: : 1955 Requested By: NISHA FARRAR Order Number: [id number] Reading MD: DEBRA FAITH Measurements Intervals [place] Rate: 63 P: 21 OR: 288 QRS: 35 QRSD: 114 T: 146 QT: 410 QTc: 423 Interpretive Statements SINUS RHYTHM WITH FIRST DEGREE AV BLOCK MODERATE INTRAVENTRICULAR CONDUCTION DELAY [105+ ms QRS DURATION, 80+ ms Q/S IN V1/V2, NO Q AND 60+ ms R IN I/aVL/V5/V6] NONSPECIFIC ST T-WAVE ABNORMALITY Compared to ECG 03/23/2022 05:05:27 No significant changes Electronically Signed On 05-19-2025 16:10:06 EDT by DERBA FAITH Dictated By: Debra Faith M.D. Signed By: 05/19/25 1610 DD/ 0831 TD/TT: Installation Coordinator: [facility] Radiology, Radiologist, MD - 05/19/2025 [place] [address] Electrocardiograph Report Signed Patient: JANICE FORD Jr. MR#: [id number] : 1955 Acct:[id number] Age/Sex: 70 / M ADM Date: 05/15/25 Loc: [facility] Attending Dr: Nisha Farrar D.P.M. Ordering Physician: Nisha Farrar D.P.M. Date of Service: 05/15/25 Procedure(s): ECG 12 lead Accession Number(s): [id number] cc: [facility] Test Date: 2025-05-15 Pat Name: JANICE FORD Department: Room: - Gender: Male Cler[employer] Office Support Workers: : 1955 Requested By: NISHA FARRAR Order Number: [id number] Reading MD: DEBRA FAITH Measurements Intervals [place] Rate: 63 P: 21 OR: 288 QRS: 35 QRSD: 114 T: 146 [...] Signed By: 05/19/25 1610 DD/ 0831 TD/TT: Installation Coordinator: [employer] ECG 12-LEADOrdered By: Sunrise Atelier logist Radiology on 05-19-2025 [employer] Work Phone: Mohit 05-19-2025 L - -------- Specimen: [id number] Received: 05/20/25 Status: EL Harris Num: [id number] Spec Type: Surgical Subm Dr: Nisha Farrar,LAVON, MS Tissues: A DIGIT AMPUTATION (LEFT 2nd METATARSAL) Procedures: HE/2, Gross/Micro L4, Decalcification -------- Age/ Patient Sex Location Account Attending Physician -------- Janice Ford 70/M LABELL [id number] Nisha Farrar DPM, MS -------- SPEC NUM: [id number] RECD: 05/20/25 STATUS: EL HARRIS NUM: [id number] KAMILA: 05/19/25 [facility] DR: Nisha Farrar DPM, MS ENTERED: 05/20/[address] [facility] DR: Luis F,Lab SPEC TYPE: Surgical DEPT: [facility] BILL ENTERED BY: [id number] RECV BY: [id number] ORDERED: HE/2, Gross/Micro L4, Decalcification ORDERED: HE/2, Gross/Micro L4, Decalcification Pathological Diagnosis Left second metatarsal, excision: - Degenerative osteocartilaginous tissue and benign soft tissue. - No evidence of acute osteomyelitis identified. Clinical Information Diabetic foot ulcer left plantar second metatarsal, contracture-equinus left, hammer of left third toe Gross Description Received in formalin labeled with the patients name, date of , and left second metatarsal is a negron ovoid domed portion of metatarsal bone, 2 x 1.5 x 1.6 cm resected with a small amount of fibrous, ro-negron to pink, up to 0.2 cm in thickness. One end of the specimen is smooth, glistening and convex, consistent with an articular surface, while the opposing end is flat and rough, consistent with surgical resection margin. The specimen is sectioned to reveal negron, firm and uniform medullary bone. A longitudinal section of the bone is submitted in A1 after decalcification with the soft tissue submitted in A2. (2, , [id number] A)HORTENCIA -------- Specimen: [id number] Received: 05/20/25 Status: EL Harris Num: [id number] Spec Type: Surgical Subm Dr: Nisha Farrar,DPJudie, MS Tissues: A DIGIT AMPUTATION (LEFT 2nd METATARSAL) Procedures: HE/2, Gross/Micro L4, Decalcification -------- Patient: Janice Ford Jr [id number] (Continued) -------- Specimen: [id number] Received: 05/20/25 (Continued) Signed (signature on file) Denys Forde MD 05/27/25 1030 -------- Specimen: [id number] Received: 05/20/25 Status: EL Harris Num: [id number] Spec Type: Surgical Subm Dr: Nisha Farrar,DPM, MS Tissues: A DIGIT AMPUTATION (LEFT 2nd METATARSAL) Procedures: HE/2, Gross/Micro L4, Decalcification -------- Patient: Janice Ford [id number] (Continued) -------- Specimen: [id number] Received: 05/20/25 (Continued) Microscopic Description Microscopic examination is performed. CPT Codes 47431, 13316 -------- -------- Specimen: [id number] Received: 05/20/25 Status: EL Harris Num: [id number] Spec Type: Surgical Subm Dr: Peter Highlander,DPM, MS Tissues: A DIGIT AMPUTATION (LEFT 2nd METATARSAL) Procedures: HE/2, Gross/Micro L4, Decalcification -------- Patient: Janice Ford Jr [id number] (Continued) -------- Signed (signature on file) Denys Forde MD 05/27/25 1030 Normal The [facility] SEGMENTAL BLOOD PRESSUREon 0 05-19-2025 [place] [address] Cardiology Report Signed Patient: JANICE FORD Jr. MR#: [id number] : 1955 Acct:[id number] Age/Sex: 70 / M ADM Date: 05/18/25 Loc: CARD Attending Dr: Gisela HARRIS Ordering Physician: Gisela Crandall Date of Service: 05/18/25 Procedure(s): CA segmental UE or LE ANTHONY Accession Number(s): [id number] cc: NITISH AGRAWAL ; Gisela Crandall [facility] Test Date: 2025-05-18 Pat Name: JANICE FORD Department: Room: - Gender: Male [employer]erical [employer] Office Support Workers: : 1955 Requested By: Gisela Crandall Order Number: [id number] Jailyn MD: DEBRA FAITH Interpretive Statements Normal [...] 05/19/25 1257 05/19/25 1257 DD/ 0840 TD/TT: Installation Coordinator: [facility] Radiology, Radiologist, - 05/19/2025 [place] [address] Cardiology Report Signed Patient: JANICE FORD Jr. 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 [employer] Office Support Workers: : 1955 Requested By: Gisela Crandall Order Number: [id number] Reading MD: DEBRA FAITH Interpretive Statements Normal [...] 05/19/25 1257 05/19/25 1257 DD/ 0840 TD/TT: Installation Coordinator: [facility] [employer] SEGMENTAL BLOOD PRESSUREOrde red By: Radiologist Radiology on 05-19-2025 [facility] [employer] Work Phone: SEGMENTAL BLOOD PRESSUREon 0 05-18-2025 Radiology Study observation (narrative) [facility] ECG 12-LEADon 05-15-2025 Radiology Study observation (narrative) [facility] XR CHEST 2Von 05-15-2025 [place] [address] XRay Report Signed Patient: JANICE FORD Jr. MR#: [id number] : 1955 Acct:[id number] Age/Sex: 70 / M ADM Date: 05/15/25 Loc: [facility] Attending Dr: Nisha Farrar D.P.M. Ordering Physician: Nisha Farrar D.P.M. Date of Service: 05/15/25 Procedure(s): XR chest 2V Accession Number(s): [id number] cc: NITISH AGRAWAL ; Nisha Farrar D.P.M. [place] [id number] Patient Name: JANICE FORD MRN: [id number] date: 1955 Sex: M Assigned Patient Location: [facility] Current Patient Location: [facility] Accession/Order Number: [id number] Exam Date: 05/15/2025 10:46 Report Date: 05/15/2025 [...] Owens M.D. 05/15/2025 10:49 AM Dictation Location: [place] [address] Electronically authenticated by: [id number] Date: 05/15/2025 10:49 Dictated By: Melani Owens M.D. Signed By: 05/15/25 1051 DD/ 1049 TD/TT: Installation Coordinator: [facility] Radiology, Radiologist, MD - 05/15/2025 [place] [address] XRay Report Signed Patient: JANICE FORD Jr. MR#: [id number] : 1955 Acct:[id number] Age/Sex: 70 / M ADM Date: 05/15/25 Loc: [facility] Attending Dr: Nisha Farrar D.P.M. Ordering Physician: Nisha Farrar D.P.M. Date of Service: 05/15/25 Procedure(s): XR chest 2V Accession Number(s): [id number] cc: NITISH AGRAWAL ; Nisha Farrar D.P.M. The [place] [id number] Patient Name: JANICE FORD MRN: [facility]:[id number] date: 1955 Sex: M Assigned Patient Location: [facility] Current Patient Location: [facility] Accession/Order Number: [id number] Exam Date: 05/15/2025 10:46 Report Date: 05/15/2025 [...] Owens M.D. 05/15/2025 10:49 AM Dictation Location: [place] [address] Electronically authenticated by: [id number] Y Date: 05/15/2025 10:49 Dictated By: Melani Owens M.D. Signed By: 05/15/25 1051 DD/ 1049 TD/TT: Installation Coordinator: [facility] [employer] Radiology Study observation (narrative) [facility] [employer] XR CHEST 2VOrdered By: Sunrise Atelier logist Radiology on 05-15-2025 [employer] Work Phone: XR FOOT LT MIN 3Von 04-22-20 [place] [address] XRay Report Signed Patient: JANICE FORD MR#: [id number] : 1955 Acct:[id number] Age/Sex: 70 / M ADM Date: 04/22/25 Loc: RAD Attending Dr: Nisha Farrar D.P.M. Ordering Physician: Nisha Farrar D.P.M. Date of Service: 04/22/25 Procedure(s): XR foot LT min 3V Accession Number(s): [id number] cc: NITISH AGRAWAL ; Nisha Farrar D.P.M. [place] [id number] Patient Name: JANICE FODR MRN: [id number] date: 1955 Sex: M Assigned Patient Location: [facility] Current Patient Location: [facility] Accession/Order Number: [id number] Exam Date: 04/22/2025 15:23 Report Date: 04/22/2025 [...] Jr., D.O. 04/22/2025 3:25 PM Dictation Location: [place] [address] Electronically authenticated by: [id number] Y Date: 04/22/2025 15:25 Dictated By: Theron Guerra M.D. Signed By: 04/22/25 1527 DD/ 1525 TD/TT: Installation Coordinator: [facility] Radiology, Radiologist, MD - 04/22/2025 [place] [address] XRay Report Signed Patient: JANICE FORD MR#: [id number] : 1955 Acct:[id number] Age/Sex: 70 / M ADM Date: 04/22/25 Loc: RAD Attending Dr: Nisha Fararr D.P.M. Ordering Physician: Nisha Farrar D.P.M. Date of Service: 04/22/25 Procedure(s): XR foot LT min 3V Accession Number(s): [id number] cc: NITISH AGRAWAL ; Nisha Farrar D.P.M. The [place] [id number] Patient Name: JANICE FORD MRN: [facility]:[id number] date: 1955 Sex: M Assigned Patient Location: [facility] Current Patient Location: [facility] Accession/Order Number: [id number] Exam Date: 04/22/2025 15:23 Report Date: 04/22/2025 [...] Jr., D.O. 04/22/2025 3:25 PM Dictation Location: [place] [address] Electronically authenticated by: [id number] Y Date: 04/22/2025 15:25 Dictated By: Theron Guerra M.D. Signed By: 04/22/25 1527 DD/ 1525 TD/TT: Installation Coordinator: [facility] [employer] Radiology Study observation (narrative) [facility] [employer] XR FOOT LT MIN 3VOrdered By: Radiologist Radiology on 04-22-2025 [employer] Work Phone: nm Heart Perfusion W [...] Erika Osborne 02/23/2025 6:21 PM Dictation workstation: [id number] Interpreted By: Erika Osborne, Sahil Lopez STUDY: MYOCARDIAL PERFUSION STRESS TEST WITH LEXISCAN Performing facility: [facility], [address] [place] [address], [address], [place] [address] [facility] Provider: Ratna Elias DO, FACC PCP: Dr. Vineet Agrawal Supervising provider: Yamilka Rebollar MD, FACC INDICATION: Signs/Symptoms:h/o pci, angina 2-3, palps, tachy. 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 COMPARISON: Previous nuclear testing completed at [facility]. ACCESSION NUMBER(S): [id number] ORDERING CLINICIAN: MARTIN ELIAS TECHNIQUE: ONE DAY [...] PERFUSION STRESS TEST WITH LEXISCAN Performing facility: [facility], [address] [place] [address], [address], [place] [address] [facility] Provider: Ratna Elias DO, [facility] PCP: Dr. Vineet Agrawal Supervising provider: Yamilka Rebollar MD, [facility] INDICATION: Signs/Symptoms:h/o pci, angina 2-3, palps, tachy. 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 COMPARISON: Previous nuclear testing completed at [facility]. ACCESSION NUMBER(S): [id number] ORDERING CLINICIAN: MARTIN ELIAS TECHNIQUE: ONE DAY [...] Erika Osborne 02/23/2025 6:21 PM Dictation workstation: [id number] [facility] Work Phone: Radiology Study observation (narrative) [facility] Work Phone: NM Heart Perfusion W stress and W radionuclide IVOrdered By: Erika Osborne on 02-23-2025 [facility] Work Phone: NUCLEAR STRESS TESTon 2024 NUCLEAR STRESS TEST Interpreted By: Erika Osborne and Giannuzzi Michael STUDY: MYOCARDIAL PERFUSION STRESS TEST WITH LEXISCAN Performing facility: [facility], [address] [place] [address], [address], [address] Provider: Ratna Elias DO, FACC PCP: Dr. Vineet Agrawal Supervising provider: Yamilka Rebollar MD, FACC INDICATION: Signs/Symptoms:h/o pci, angina 2-3, palps, tachy. ,I25.10 Atherosclerotic heart disease of [place]-bil[place] coronary artery without angina pectoris,Z95.1 Presence of [...] on 1992. COMPARISON: Previous nuclear testing completed [id number] at [facility]. ACCESSION NUMBER(S): [id number] ORDERING CLINICIAN: MARTIN ELIAS TECHNIQUE: ONE DAY [...] Erika Osborne 02/23/2025 6:21 PM Dictation workstation: [id number] [facility] NUCLEAR STRESS TEST EXERCISE (CARD)on 02-23-2025 Source Facility: [facility] Interpreted By: Erika Osborne and Maine Lopez STUDY: MYOCARDIAL PERFUSION STRESS TEST WITH LEXISCAN Performing facility: [facility], [address], [address], [place] [address] [facility] Provider: Ratna Elias DO, [facility] PCP: Dr. Vineet Agrawal Supervising provider: Yamilka Rebollar MD, [facility] INDICATION: Signs/Symptoms:h/o pci, angina 2-3, palps, tachy. 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 COMPARISON: Previous nuclear testing completed at [facility]. ACCESSION NUMBER(S): [id number] ORDERING CLINICIAN: MARTIN ELIAS TECHNIQUE: ONE DAY [...] Erika Osborne 02/23/2025 6:21 PM Dictation workstation: [id number] Radiology, Radiologist, MD - 02/24/2025 Source Facility: [facility] Interpreted By: Erika Osborne and Maine Lopez STUDY: MYOCARDIAL PERFUSION STRESS TEST WITH LEXISCAN Performing facility: [facility], [address] [place] [address], [address], [address] Provider: Ratna Elias DO, FACC PCP: Dr. Vineet Agrawal Supervising provider: Yamilka Rebollar MD, FACC INDICATION: Signs/Symptoms:h/o pci, angina 2-3, palps, tachy. 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 COMPARISON: Previous nuclear testing completed at [facility]. ACCESSION NUMBER(S): [id number] ORDERING CLINICIAN: MARTIN ELIAS TECHNIQUE: ONE DAY [...] Erika Osborne 02/23/2025 6:21 PM Dictation workstation: [id number] [facility] Radiology Study observation (narrative) [facility] NUCLEAR STRESS TEST EXERCISE (CARD)Ordered By: Radiologist Radiology on 02-23-2025 [facility] [employer] Work Phone: ALL BASIC METABOLIC PANELon 01-28-2025 Anion gap [Moles/Vol] 13.7 mmol/L [facility] Calcium [Mass/Vol] 8.8 mg/dL 8.5 - 10. 1 mg/dL [facility] Chloride [Moles/Vol] 104 mmol/L 98 - 10 7 mmol/L [facility] [employer] CO2 [Moles/Vol] 25.7 mmol/L 21.0 - 32.0 mmol/L [facility] [employer] Creatinine [Mass/Vol] 1.39 mg/dL High 0.70 - 1.30 mg/dL [facility] [employer] GFR/1.73 sq M.predicted CKD-EPI (S/P/Bld) [Vol rate/Area] >60 >=60 mL/min/1.73m 2 [facility] [employer] Glucose [Mass/Vol] 150 mg/dL High 74 - 106 mg/dL [facility] Potassium [Moles/Vol] 4.4 mmol/L 3.5 - 5.1 mmol/L [facility] [employer] Sodium [Moles/Vol] 139 mmol/L 136 - 145 mmol/L [facility] TBH EGFR-NON AF OMANI 51 Low >=60 mL/min/1.73m 2 [facility] [employer] Urea nitrogen [Mass/Vol] 25 mg/dL High 7.0 - 18.0 mg/dL [facility] [employer] Urea nitrogen/Creatinine [Mass ratio] 18 mg/mg [facility] [employer] ALL PRO BNPon 01-28-2025 NT PRO B TYPE NATRIURETIC PEPT 1185 pg/mL High NINF - 900.0 pg/mL [facility] [employer] No Panel Informationon 01-28 Interpretation and review of laboratory results Abnormal [facility] [employer] [facility] [employer] HbA1c (Bld) [Mass fraction]o n 12-01-2024 Interpretation and review of laboratory results Normal [facility] [employer] Laboratory - Hematology and Cell countson 12-01-2024 HbA1c (Bld) [Mass fraction] 7.7 % [facility] [employer] HbA1c (Bld) [Mass fraction]o n 09-01-2024 Interpretation and review of laboratory results Abnormal [facility] [employer] Laboratory - Hematology and Cell countson 09-01-2024 HbA1c (Bld) [Mass fraction] 8.6 % [facility] [employer] No Panel Informationon 06-27 [employer] Carcinoembryonic Ag [Mass/Vo l]on 06-20-2024 Performing Organization Information Site ID: QPT Name: [facility] Address: [address] [place] [address], [address] [place] [id number] Director: Edil Bedolla MD [facility] Laboratory - Chemistry and C hemistry - challengeon 06-20-2024 Calcitonin [Mass/Vol] 6 pg/mL NINF - 10 pg/mL [facility] Comment on above: This test was performed using the Siemens Chemiluminescent method. Values obtained with different assay methods cannot be used interchangeably. Calcitonin levels, regardless of value, should not be interpreted as absolute evidence of the presence or absence of the disease. Carcinoembryonic Ag [Mass/Vol] ng/mL See Note: ng/mL [facility] Comment on above: Reference Range: Non-Smoker: <2.5 Smoker: <5.0 This test was performed using the Siemens chemiluminescent method. Values obtained from different assay methods cannot be used interchangeably. CEA levels, regardless of value, should not be interpreted as absolute evidence of the presence or absence of disease. No Panel Informationon 06-20 Performing Organization Information Site ID: AMD Name: [facility] Address: [address] [place] [address] Dr [place], [place] Director: Huan Tate M.D.,PhD [facility] US THYROIDon 06-16-2024 US THYROID [...] report is generated using voice recognition reporting ([employer]). On occasion C[employer]and[employer] erroneously drops words from the report or [...] report is generated using voice recognition reporting ([employer] On occasion Power[employer]ribe erroneously drops words from [...] report is generated using voice recognition reporting ([employer] On occasion [employer] erroneously drops words from the report or replaces the spoken word with similar sounding words. Please call with any questions/concerns regarding this report.* Dictated and transcribed 06/16/2024/[place] This report has been electronically signed and approved by the interpreting radiologist. Electronically Signed Martin Christianson II, M.D. 2024-06-16 16:43:23 [facility] [employer] Radiology Study observation (narrative) [facility] [place] Thyroid glandOrdered By: Martin Christianson on 06-16-2024 [facility] [employer] Work Phone: Office Visit (Cardiology)on 01-23-2023 [...] are negat (more content not included)... Normal [place] Tobacco Screening.on 023 Adult depression screening assessment No [facility] [employer] 250 DO Work Phone: Fall risk assessment a) No falls within the last year [facility] [employer] 250 DO Work Phone: Tobacco use status CPHS b) No [facility] [employer] 250 DO Work Phone: ACID FAST SMEAR AND CXon Acid Fast Culture Negative Normal [facility] Comment on above: Result Comment: No a monse fast bacilli isolated after 6 weeks. Performed By: #### A FB #### [facility] [address] [place] [address] Dr. Balta Gorman Acid Fast Smear Negative Normal [facility] Comment on above: Performed By: #### A FB #### [facility] [address] [place] [address] Dr. Balta Gorman [employer] Specimen Processing Tissue Grinding Normal [facility] [place] [facility] Comment on above: Performed By: #### A FB #### [facility] [address] [place] [address] Dr. Balta Gorman FUNGAL CULTUREon 07-11-2022 Fungus (Mycology) Culture Final report Normal [facility] [place] [facility] Comment on above: Performed By: #### C XFUN #### [facility] [address] [place] [address] Dr. Balta Gorman Fungus Stain Final report Normal [facility] Comment on above: Performed By: #### C XFUN #### [facility] [address] [place] [address] Dr. Balta Gorman Result 1 Comment Normal [facility] [place] [facility] Comment on above: Result Comment: FRANCISCA/ Calcofluor preparation: no fungus observed. Performed By: #### C XFUN #### [facility] [address] [address] [address] Balta Gorman Result Comment: No y east or mold isolated after 4 weeks. WOUND CULTUREon 06-15-2022 Bacteria identified Aer cx Nom (Unsp spec) Final report Normal [facility] [place] [facility] Comment on above: Performed By: #### A FB #### [facility] [address] [place] [address] Dr. Balta Gorman Result 1 Comment Normal [facility] [place] [facility] Comment on above: Result Comment: No g rowth in 36 - 48 hours. Performed By: #### A FB #### [facility] [address] [place] [address] Dr. Balta Gorman GRAM STAINon 06-12-2022 DIPHTHEROIDS Normal [facility] Comment on above: Performed By: #### C VDTBH #### [facility] [address] [place] [address] Dr. Balta Gorman EPITHELIALS Normal [facility] Comment on above: Performed By: #### C VDTBH #### [facility] [address] [place] [address] Dr. Balta Gorman FUNGAL ELEMENTS Normal [facility] Comment on above: Performed By: #### C VDTBH #### [facility] [address] [place] [address] Dr. Balta Gorman GRAM NEG BACILLI Normal [facility] Comment on above: Performed By: #### C VDTBH #### [facility] [address] [place] [address] Dr. Balta CAVAZOS NEG DIPPLOCOCCI Normal [facility] Comment on above: Performed By: #### C VDTBH #### [facility] [address] [place] [address] Dr. Balta CAVAZOS POS BACILLI Normal [facility] Comment on above: Performed By: #### C VDTBH #### [facility] [address] [place] [address] Dr. Balta Gorman GRAM POSITIVE COCCI Normal [facility] Comment on above: Performed By: #### C VDTBH #### [facility] [address] [address] [address] Balta Gorman GRAM STAIN SOURCE Rt 4th Toe Bone Normal [facility] Comment on above: Performed By: #### C VDTBH #### [facility] [address] [address] [address] Balta Gorman GS_DIPTH Normal [facility] [place] [facility] Comment on above: Performed By: #### C VDTBH #### [facility] [address] [address] [address] Balta Gorman WBC NONE SEEN [facility] Comment on above: Performed By: #### C VDTBH #### [facility] [address] [address] [address] Balta Gorman POINT OF CARE GLUCOSEon Glucose [Mass/Vol] 168 mg/dL Critically high -106 [facility] Comment on above: Performed By: #### P OCGLUC ####[facility] [address] [address]Dr. Balta Gorman Glucose [Mass/Vol] 161 mg/dL Critically high -106 [facility] Comment on above: Performed By: #### P OCGLUC #### [facility] [address] [address] [address] Balta Gorman Covid-19 PCR (CVDTBH)on SARS-CoV-2 (COVID-19) RNA DERICK+probe Ql (Unsp spec) Not detected Normal NOT DETECTED [facility] Comment on above: Result Comment: This test is not yet approved or cleared by the [place] FDA. When there are no FDA-approved or cleared tests available, and other criteria are met, FDA can make tests available under an emergency access mechanism called an Emergency Use Authorization (EUA). The EUA for this test is supported by the [place] of Health and Human Service's (HHS's) declaration [...] with SARS-CoV-2. Performed By: #### C VDTBH ####[facility] [address] [address]Dr. Balta Gorman PROF CHEM 8 (BAS METB)on Anion gap [Moles/Vol] 13.3 mmol/L Normal [facility] [place] [facility] Comment on above: Performed By: #### C VDTBH #### [facility] [address] [address] [address] Balta Gorman Calcium [Mass/Vol] 8.7 mg/dL Normal 8.5-10.1 [facility] Comment on above: Performed By: #### C VDTBH #### [facility] [address] [address] [address] Balta Gorman Chloride [Moles/Vol] 106 mmol/L Normal 98-107 [facility] Comment on above: Performed By: #### C VDTBH #### [facility] [address] [address] [address] Balta Gorman CO2 [Moles/Vol] 23.9 mmol/L Normal 21.0-32.0 [facility] Comment on above: Performed By: #### C VDTBH #### [facility] [address] [address] [address] Balta Gorman Creatinine [Mass/Vol] 1.24 mg/dL Normal 0.70-1.30 [facility] [place] [facility] Comment on above: Performed By: #### C VDTBH #### [facility] [address] [place] [address] Dr. Balta Gorman EGFR-AF OMANI >60 Normal >=60 [facility] Comment on above: Performed By: #### C VDTBH #### [facility] [address] [address] [address] Balta Gorman EGFR-NON AF OMANI 58 mL/min/1.73m2 Critically low >=60 [facility] [place] [facility] Comment on above: Performed By: #### C VDTBH #### [facility] [address] [address] [address] Balta Gorman Glucose [Mass/Vol] 158 mg/dL Critically high 74-106 [facility] Comment on above: Performed By: #### C VDTBH #### [facility] [address] [address] [address] Balta Gorman Potassium [Moles/Vol] 4.2 mmol/L Normal 3.5-5.1 [facility] [place] [facility] Comment on above: Performed By: #### C VDTBH #### [facility] [address] [address] [address] Balta Gorman Sodium [Moles/Vol] 139 mmol/L Normal 136-145 [facility] Comment on above: Performed By: #### C VDTBH #### [facility] [address] [address] [address] Balta Gorman Urea nitrogen [Mass/Vol] 19.0 mg/dL Critically high 7.0-18.0 [facility] [place] [facility] Comment on above: Performed By: #### C VDTBH #### [facility] [address] [address] [address] Balta Gorman Urea nitrogen/Creatinine [Mass ratio] 15.3 mg/mg Normal [facility] [place] [facility] Comment on above: Performed By: #### C VDTBH #### [facility] [address] [id number] Balta Gorman ACID FAST SMEAR AND CXon Acid Fast Culture Negative Normal [facility] Comment on above: Result Comment: No a monse fast bacilli isolated after 6 weeks. Performed By: #### A FB ####[facility] [address] [place], [place] [address]FgDr. Balta Gorman Acid Fast Smear Negative Normal [facility] Comment on above: Performed By: #### A FB ####[facility] [address] [place], [place] [address]TuDr. 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 Balta Gorman FUNGAL CULTUREon 05-05-2022 Fungus (Mycology) Culture Final report Normal [facility] [place] [facility] Comment on above: Performed By: #### A FB #### [facility] [address] [place], [place] [address] Dr. Balta Gorman Fungus Stain Final report Normal [facility] Comment on above: Performed By: #### A FB #### [facility] [address] [place], [place] [address] Dr. Balta Gorman Result 1 Comment Normal [facility] [place] [facility] Comment on above: Result Comment: FRANCISCA/ Calcofluor preparation: no fungus observed. Performed By: #### A FB #### [facility] [address] [place], [place] [address] Dr. Balta Gorman Result Comment: No y [...] lose weight.; Status:Complete - Retrospective Authorization; Done: [id number] SocHx: Never a smoker Tobacco Use Screening; Status:Complete; Done: [id number] Patient Instructions By signing my name below, [...] that was done back in [address] [facility]. 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 This was redilated and stented. He had a recent episode at cardiac rehab in [place] and because of this was seen in [...] Recorded: 01May2022 09:28AM Heart Rate80, L Radial Ejdjopzz15, LUE, Sitting Ydhafadpo47, LUE, Sitting Height6 ft 1 in Rngeer740 lb BMI Ukxhzybzov21.42 kg/m2 BSA Calculated2.25 Tobacco Useb) No Falls Screening (Age 18+)a) No falls within the last year Signatures Electronically signed by : Helga Flores DO; May 01 2022 11:18AM EST (Author) Normal [place] Tobacco Screening.on 022 Fall risk assessment a) No falls within the last year [facility] [employer] 250 DO Work Phone: Tobacco use status [facility] b) No [facility] [employer] [place] 250 DO Work Phone: XR FOOT LT [...] MARTIN WHITAKER Date: 2022-04-14 10:08 Normal [facility] TISSUE CULTUREon 04-07-2022 Anaerobic Culture, Extended Incubation Final report Normal [facility] [place] [facility] Comment on above: Performed By: #### A FB #### [facility] [address] [place] [address] Dr. Balta Gorman Result 1 Comment Normal [facility] Comment on above: Result Comment: No g rowth in 56 - 72 hours. Performed By: #### A FB #### [facility] [address] [address] [address] Balta Gorman Result Comment: No g rowth after 14 days. Tissue Culture Final report Normal [facility] Comment on above: Performed By: #### A FB #### [facility] [address] [place] [address] Dr. Balta Gorman WOUND CULTUREon 03-26-2022 Antimicrobial Susceptibility Comment Normal [facility] [place] [facility] Comment on above: Result Comment: S = Susceptible; I = Intermediate; R = Resistant P = Positive; N = Negative MICS are expressed in micrograms per mL Antibiotic RSLT#1 RSLT#2 RSLT#3 RSLT#4 Ciprofloxacin R Clindamycin S Erythromycin S Gentamicin S Levofloxacin R Linezolid S Oxacillin R Penicillin R Rifampin S Tetracycline S Trimethoprim/Sulfa R Vancomycin S Performed By: #### A FB #### [facility] [address] [place] [address] Dr. Balta Gorman Bacteria identified Aer cx Nom (Unsp spec) Final report Abnormal [facility] Comment on above: Performed By: #### A FB #### [facility] [address] [address] [address] Balta Gorman Result 1 Comment Abnormal [facility] Comment on above: Result Comment: Meth icillin - resistant Staphylococcus aureus Based on resistance to oxacillin this isolate would be resistant to all currently available beta-lactam antimicrobial agents, with the exception of the newer cephalosporins with anti-MRSA activity, such as Ceftaroline Heavy growth Performed By: #### A FB #### [facility] [address] [address] [address] Balta Gorman CBC AUTO DIFFon 03-24-2022 BASO # 0.0 103/ul Normal 0.0-0.1 [facility] [place] [facility] Comment on above: Performed By: #### C BC ####[facility] [address] [address]DrPaola Gorman Basophils/100 WBC (Bld) 0.5 % Normal 0.2-2.0 [facility] [place] [facility] Comment on above: Performed By: #### C BC ####[facility] [address] [address]DrPaola Gorman EO # 0.1 103/ul Normal 0.0-0.7 [facility] Comment on above: Performed By: #### C BC ####[facility] [address] [address]DrPaola Gorman Eosinophils/100 WBC (Bld) 1.1 % Normal 0.9-7.0 [facility] Comment on above: Performed By: #### C BC ####[facility] [address] [address]DrPaola Gorman Erythrocyte distribution width (RBC) [Ratio] 16.9 % Critically high 11.0-15.0 [facility] [place] [facility] Comment on above: Performed By: #### C BC ####[facility] [address] [place], [place] [address]DrPaola Gorman Hematocrit (Bld) [Volume fraction] 34.5 % Critically low 42.0-54.0 [facility] [place] [facility] Comment on above: Performed By: #### C BC ####[facility] [address] [id number]. Balta Gorman Hemoglobin (Bld) [Mass/Vol] 10.2 g/dL Critically low 14.0-18.0 [facility] [place] [facility] Comment on above: Performed By: #### C BC ####[facility] [address] [address]Dr. Balta Gorman IG # 0.03 10e3/ul Normal 0.00-0.03 [facility] [place] [facility] Comment on above: Performed By: #### C BC ####[facility] [address] [id number]. Balta Gorman IG % 0.4 % Normal 0.0-0.5 [facility] [place] [facility] Comment on above: Performed By: #### C BC ####[facility] [address] [address]Dr. Balta Gorman LYMPH # 1.6 103/ul Normal 1.2-3.8 [facility] Comment on above: Performed By: #### C BC ####[facility] [address] [id number]. Aurabenja Gorman Lymphocytes/100 WBC (Bld) 18.4 % Critically low 20.5-60.0 [facility] [place] [facility] Comment on above: Performed By: #### C BC ####[facility] [address] [id number]. Balta Gorman MANUAL DIFF REQ NO Normal [facility] Comment on above: Performed By: #### C BC ####[facility] [address] [id number]. Aurabenja Gorman MCH (RBC) [Entitic mass] 22.7 pg Critically low 25.9-34.0 [facility] Comment on above: Performed By: #### C BC ####[facility] [address] [id number]. Balta Gorman MCHC (RBC) [Mass/Vol] 29.6 g/dL Critically low 29.9-35.2 [facility] Comment on above: Performed By: #### C BC ####[facility] [address] [id number]. Balta Gorman MCV (RBC) [Entitic vol] 76.7 fL Critically low 80.0-94.0 [facility] [place] [facility] Comment on above: Performed By: #### C BC ####[facility] [address] [id number]. Balta Gorman MONO # 0.9 103/ul Critically high 0.3-0.8 [facility] Comment on above: Performed By: #### C BC ####[facility] [address] [id number]. Balta Gorman Monocytes/100 WBC (Bld) 11.1 % Normal 1.7-12.0 [facility] [place] [facility] Comment on above: Performed By: #### C BC ####[facility] [address] [place], [place] [address]Dr. Balta Gorman NEUT # 5.8 103/ul Normal 1.4-6.5 [facility] [place] [facility] Comment on above: Performed By: #### C BC ####[facility] [address] [place], [place] [address]Dr. Balta Sherif Neutrophils/100 WBC (Bld) 68.5 % Normal 43.0-75.0 [facility] Comment on above: Performed By: #### C BC ####[facility] [address] [id number]. Balta Gorman Platelet mean volume (Bld) [Entitic vol] 10.2 fL Normal 9.5-13.5 [facility] Comment on above: Performed By: #### C BC ####[facility] [address] [id number]. Balta Sherif PLT 285 103/ul Normal 150-450 [facility] Comment on above: Performed By: #### C BC ####[facility] [address] [phone]. Aurabenja Sherif RBC 4.50 106/ul Critically low 4.70-6.10 [facility] Comment on above: Performed By: #### C BC ####[facility] [address] [phone] Gorman WBC 8.5 103/ul Normal 4.0-11.0 [facility] [place] [facility] Comment on above: Performed By: #### C BC ####[facility] [address] [phone] Gorman POINT OF CARE GLUCOSEon 03-06 Glucose [Mass/Vol] 209 mg/dL Critically high 74-106 [facility] Comment on above: Performed By: #### P OCGLUC #### [facility] [address] [address] [address] Balta Gorman PROF CHEM 8 (BAS METB)on Anion gap [Moles/Vol] 13.7 mmol/L Normal [facility] [place] [facility] Comment on above: Performed By: #### B MP ####[facility] [address] [address]DrPaola Gorman Calcium [Mass/Vol] 8.1 mg/dL Critically low 8.5-10.1 [facility] Comment on above: Performed By: #### B MP ####[facility] [address] [address]DrPaola Gorman Chloride [Moles/Vol] 105 mmol/L Normal 98-107 [facility] [place] [facility] Comment on above: Performed By: #### B MP ####[facility] [address] [address]DrPaola Gorman CO2 [Moles/Vol] 23.0 mmol/L Normal 21.0-32.0 [facility] Comment on above: Performed By: #### B MP ####[facility] [address] [address]DrPaola Gorman Creatinine [Mass/Vol] 1.15 mg/dL Normal 0.70-1.30 [facility] [place] [facility] Comment on above: Performed By: #### B MP ####[facility] [address] [address]DrPaola Gorman EGFR-AF OMANI >60 Normal >=60 [facility] Comment on above: Performed By: #### B MP ####[facility] [address] [phone]. Balta Gorman EGFR-NON AF OMANI >60 Normal >=60 [facility] [place] [facility] Comment on above: Performed By: #### B MP ####[facility] [address] [place], [place] [address]HtPaola Gorman Glucose [Mass/Vol] 214 mg/dL Critically high 74-106 [facility] Comment on above: Performed By: #### B MP ####[facility] [address] [place] [phone] Gorman Potassium [Moles/Vol] 3.7 mmol/L Normal 3.5-5.1 [facility] [place] [facility] Comment on above: Performed By: #### B MP ####[facility] [address] [place] [phone] Gorman Sodium [Moles/Vol] 138 mmol/L Normal 136-145 [facility] Comment on above: Performed By: #### B MP ####[facility] [address] [phone]. Balta Gorman Urea nitrogen [Mass/Vol] 21.0 mg/dL Critically high 7.0-18.0 [facility] [place] [facility] Comment on above: Performed By: #### B MP ####[facility] [address] [place] [phone] Gorman Urea nitrogen/Creatinine [Mass ratio] 18.3 mg/mg Normal [facility] [place] [facility] Comment on above: Performed By: #### B MP ####[facility] [address] [place] [phone]. Balta Gorman CBC AUTO DIFFon 03-23-2022 BASO # 0.1 103/ul Normal 0.0-0.1 [facility] [place] [facility] Comment on above: Performed By: #### C VDTB #### [facility] [address] [place], [place] [address] Dr. Balta Gorman Basophils/100 WBC (Bld) 1.0 % Normal 0.2-2.0 [facility] [place] [facility] Comment on above: Performed By: #### C VDTBH #### [facility] [address] [place] [address] Dr. Balta Gorman EO # 0.3 103/ul Normal 0.0-0.7 [facility] [place] [facility] Comment on above: Performed By: #### C VDTBH #### [facility] [address] [place] [address] Dr. Balta Gorman Eosinophils/100 WBC (Bld) 4.5 % Normal 0.9-7.0 [facility] [place] [facility] Comment on above: Performed By: #### C VDTBH #### [facility] [address] [place] [address] Dr. Balta Gorman Erythrocyte distribution width (RBC) [Ratio] 17.0 % Critically high 11.0-15.0 [facility] [place] [facility] Comment on above: Performed By: #### C VDTBH #### [facility] [address] [place] [address] Dr. Balta Gorman Hematocrit (Bld) [Volume fraction] 35.7 % Critically low 42.0-54.0 [facility] [place] [facility] Comment on above: Performed By: #### C VDTBH #### [facility] [address] [place] [address] Dr. Balta Gorman Hemoglobin (Bld) [Mass/Vol] 10.6 g/dL Critically low 14.0-18.0 [facility] [place] [facility] Comment on above: Performed By: #### C VDTBH #### [facility] [address] [place] [address] Dr. Balta Gorman IG # 0.03 10e3/ul Normal 0.00-0.03 [facility] Comment on above: Performed By: #### C VDTBH #### [facility] Laboratory [address] [place] [address] Dr. Balta Gorman IG % 0.4 % Normal 0.0-0.5 [facility] Comment on above: Performed By: #### C VDTBH #### [facility] Laboratory [address] [place] [address] Dr. Balta Gorman LYMPH # 1.8 103/ul Normal 1.2-3.8 [facility] Comment on above: Performed By: #### C VDTBH #### [facility] Laboratory [address] [place] [address] Dr. Balta Gorman Lymphocytes/100 WBC (Bld) 25.6 % Normal 20.5-60.0 [facility] [place] [facility] Comment on above: Performed By: #### C VDTBH #### [facility] Laboratory [address] [place] [address] Dr. Balta Gorman MANUAL DIFF REQ NO Normal [facility] Comment on above: Performed By: #### C VDTBH #### [facility] Laboratory [address] [place] [address] Dr. Balta Gorman MCH (RBC) [Entitic mass] 22.8 pg Critically low 25.9-34.0 [facility] [place] [facility] Comment on above: Performed By: #### C VDTBH #### [facility] Laboratory [address] [place] [address] Dr. Balta Gorman MCHC (RBC) [Mass/Vol] 29.7 g/dL Critically low 29.9-35.2 [facility] [place] [facility] Comment on above: Performed By: #### C VDTBH #### [facility] Laboratory [address] [place] [address] Dr. Balta Gorman MCV (RBC) [Entitic vol] 76.9 fL Critically low 80.0-94.0 [facility] [place] [facility] Comment on above: Performed By: #### C VDTBH #### [facility] Laboratory [address] [place] [address] Dr. Balta Gorman MONO # 1.0 103/ul Critically high 0.3-0.8 [facility] Comment on above: Performed By: #### C VDTBH #### [facility] Laboratory [address] [place] [address] Dr. Balta Gorman Monocytes/100 WBC (Bld) 13.8 % Critically high 1.7-12.0 [facility] [place] [facility] Comment on above: Performed By: #### C VDTBH #### [facility] Laboratory [address] [address] [address] Balta Gorman NEUT # 3.9 103/ul Normal 1.4-6.5 [facility] [place] [facility] Comment on above: Performed By: #### C VDTBH #### [facility] Laboratory [address] [place] [address] Dr. Balta Gorman Neutrophils/100 WBC (Bld) 54.7 % Normal 43.0-75.0 [facility] [place] [facility] Comment on above: Performed By: #### C VDTBH #### [facility] Laboratory [address] [place] [address] Dr. Balta Gorman Platelet mean volume (Bld) [Entitic vol] 10.5 fL Normal 9.5-13.5 [facility] Comment on above: Performed By: #### C VDTBH #### [facility] Laboratory [address] [place] [address] Dr. Balta Gormna PLT 271 103/ul Normal 150-450 [facility] [place] [facility] Comment on above: Performed By: #### C VDTBH #### [facility] Laboratory [address] [place] [address] Dr. Balta Gorman RBC 4.64 106/ul Critically low 4.70-6.10 [facility] Comment on above: Performed By: #### C VDTBH #### [facility] Laboratory [address] [place] [address] Dr. Balta Gorman WBC 7.2 103/ul Normal 4.0-11.0 [facility] [place] [facility] Comment on above: Performed By: #### C VDTBH #### [facility] Laboratory [address] [place] [address] Dr. Balta Gorman GLYCOHEMOGLOBIN A1Con 2021 ADA RECOMMENDATION SEE BELOW Normal [facility] Comment on above: Result Comment: ADA RECOMMENDED LIMIT 4.0 - 6.0 ADA THERAPEUTIC TARGET < 7.0 ACTION SUGGESTED > 7.0 Performed By: #### A 1C #### [facility] Laboratory [address] [place] [address] Dr. Balta Gorman Glucose [Mass/Vol] 177 mg/dL Normal [facility] Comment on above: Performed By: #### A 1C #### [facility] Laboratory [address] [place] [address] Dr. Balta Gorman HbA1c (Bld) [Mass fraction] 7.8 % Critically high 4.5-6.2 [facility] Comment on above: Performed By: #### A 1C #### [facility] Laboratory [address] [place] [address] Dr. Balta CAVAZOS STAINon 03-23-2022 COMMENTS NO ORGANISMS OBSERVED Normal [facility] Comment on above: Performed By: #### A FB #### [facility] Laboratory [address] [place] [address] Dr. Balta Gorman DIPHTHEROIDS Normal [facility] [place] [facility] Comment on above: Performed By: #### A FB #### [facility] Laboratory [address] [place] [address] Dr. Balta Gorman EPITHELIALS Normal [facility] [place] [facility] Comment on above: Performed By: #### A FB #### [facility] Laboratory [address] [place] [address] Dr. Balta Gorman FUNGAL ELEMENTS Normal [facility] Comment on above: Performed By: #### A FB #### [facility] Laboratory [address] [address] [address] Balta Gorman GRAM NEG BACILLI Normal [facility] Comment on above: Performed By: #### A FB #### [facility] Laboratory [address] [place] [address] Dr. Balta CAVAZOS NEG DIPPLOCOCCI Normal [facility] Comment on above: Performed By: #### A FB #### [facility] Laboratory [address] [place] [address] Dr. Balta Gorman GRAM POS BACILLI Normal [facility] Comment on above: Performed By: #### A FB #### [facility] Laboratory [address] [place] [address] Dr. Balta Gorman GRAM POSITIVE COCCI Normal [facility] Comment on above: Performed By: #### A FB #### [facility] Laboratory [address] [place] [address] Dr. Balta Gorman GRAM STAIN SOURCE r. 2nd toe bone- pos t irrigation Normal [facility] Comment on above: Performed By: #### A FB #### [facility] Laboratory [address] [address] [address] Balta Gorman GS_DIPTH [facility] Comment on above: Performed By: #### A FB #### [facility] Laboratory [address] [address] [address] Balta Gorman WBC RARE [facility] Comment on above: Performed By: #### A FB #### [facility] Laboratory [address] [address] [address] Balta Gorman POINT OF CARE GLUCOSEon 03-05 Glucose [Mass/Vol] 209 mg/dL Critically high [address] [place] [address] Comment on above: Performed By: #### A FB #### [facility] Laboratory [address] [place] [address] Dr. Balta Gorman Glucose [Mass/Vol] 203 mg/dL Critically high [address] [place] [address] Comment on above: Performed By: #### P OCGLUC #### [facility] Laboratory [address] [place] [address] Dr. Balta Gorman Glucose [Mass/Vol] 119 mg/dL Critically high [address] [place] [address] Comment on above: Performed By: #### A FB #### [facility] Laboratory [address] [place] [address] Dr. Balta Gorman Glucose [Mass/Vol] 115 mg/dL Critically high [address] [place] [address] Comment on above: Performed By: #### A FB #### [facility] Laboratory [address] [address] [address] Balta Gorman PROF CHEM 8 (BAS METB)on Anion gap [Moles/Vol] 12.2 mmol/L [facility] Comment on above: Performed By: #### A FB #### [facility] Laboratory [address] [place] [address] Dr. Balta Gorman Calcium [Mass/Vol] 8.1 mg/dL Critically low 8.5-10.1 [facility] Comment on above: Performed By: #### A FB #### [facility] Laboratory [address] [address] [address] Balta Gorman Chloride [Moles/Vol] 104 mmol/L Normal 98-107 [facility] [place] [facility] Comment on above: Performed By: #### A FB #### [facility] Laboratory [address] [place] [address] Dr. Balta Gorman CO2 [Moles/Vol] 24.5 mmol/L Normal 21.0-32.0 [facility] Comment on above: Performed By: #### A FB #### [facility] Laboratory [address] [place] [address] Dr. Balta Gorman Creatinine [Mass/Vol] 1.06 mg/dL Normal 0.70-1.30 [facility] [place] [facility] Comment on above: Performed By: #### A FB #### [facility] Laboratory [address] [place] [address] Dr. Balta Gorman EGFR-AF OMANI >60 Normal >=60 [facility] Comment on above: Performed By: #### A FB #### [facility] Laboratory [address] [place] [address] Dr. Balta Gorman EGFR-NON AF OMANI >60 Normal >=60 [facility] [place] [facility] Comment on above: Performed By: #### A FB #### [facility] Laboratory [address] [place] [address] Dr. Balta Gorman Glucose [Mass/Vol] 110 mg/dL Critically high 74-106 [facility] Comment on above: Performed By: #### A FB #### [facility] Laboratory [address] [place] [address] Dr. Balat Gorman Potassium [Moles/Vol] 3.7 mmol/L Normal 3.5-5.1 [facility] [place] [facility] Comment on above: Performed By: #### A FB #### [facility] Laboratory [address] [place] [address] Dr. Balta Gorman Sodium [Moles/Vol] 137 mmol/L Normal 136-145 [facility] Comment on above: Performed By: #### A FB #### [facility] Laboratory [address] [place] [address] Dr. Balta Gorman Urea nitrogen [Mass/Vol] 19.0 mg/dL Critically high 7.0-18.0 [facility] [place] [facility] Comment on above: Performed By: #### A FB #### [facility] Laboratory [address] [place] [address] Dr. Balta Gorman Urea nitrogen/Creatinine [Mass ratio] 17.9 mg/mg Normal [facility] [place] [facility] Comment on above: Performed By: #### A FB #### [facility] Laboratory [address] [address] [address] Balta Gorman PROTIMEon 03-23-2022 INR Coag (PPP) [Relative time] 1.06 {INR} Normal [facility] Comment on above: Performed By: #### P TT, PT ####[facility] [address] [place], [place] [address]DrPaola Gorman INR GUIDELINES SEE BELOW Normal The [facility] Comment on above: Result Comment: PORSCHE RED INR: 2.0 - 3.0 CONDITIONS NOT LISTED BELOW 2.5 - 3.5 FOR PROSTHETIC HEART VALVE REPLACEMENT 2.5 - 3.5 RECURRENT THROMBOSIS Performed By: #### P TT, PT ####[facility] [address] [place], [place] [address]DrPaola Gorman PT Coag (PPP) [Time] 11.4 s Normal 9.0-11.6 [facility] [place] [facility] Comment on above: Performed By: #### P TT, PT ####[facility] [address] [place], [place] [address]DrPaola Gorman PTTon 03-23-2022 aPTT Coag (Bld) [Time] 33.8 s Normal 22.3-36.2 [facility] [place] [facility] Comment on above: Performed By: #### P TT, PT ####[facility] [address] [place], [place] [address]DrPaola Gorman CBC AUTO DIFFon 03-22-2022 BASO # 0.1 103/ul Normal 0.0-0.1 [facility] [place] [facility] Comment on above: Performed By: #### C BC ####[facility] [address] [place], [place] [address]DrPaola Gorman Basophils/100 WBC (Bld) 0.9 % Normal 0.2-2.0 [facility] Comment on above: Performed By: #### C BC ####[facility] [address] [place], [place] [address]Dr. Balta Gorman EO # 0.3 103/ul Normal 0.0-0.7 [facility] Comment on above: Performed By: #### C BC ####[facility] [address] [place], [place] [address]Dr. Balta Gorman Eosinophils/100 WBC (Bld) 3.2 % Normal 0.9-7.0 [facility] Comment on above: Performed By: #### C BC ####[facility] [address] [place], [place] [address]Dr. Balta Gorman Erythrocyte distribution width (RBC) [Ratio] 17.5 % Critically high 11.0-15.0 [facility] [place] [facility] Comment on above: Performed By: #### C BC ####[facility] [address] [place], [place] [address]Dr. Balta Gorman Hematocrit (Bld) [Volume fraction] 39.5 % Critically low 42.0-54.0 [facility] [place] [facility] Comment on above: Performed By: #### C BC ####[facility] [address] [place], [place] [address]Dr. Balta Gorman Hemoglobin (Bld) [Mass/Vol] 11.6 g/dL Critically low 14.0-18.0 [facility] Comment on above: Performed By: #### C BC ####[facility] [address] [place], [place] [address]Dr. Balta Gorman IG # 0.03 10e3/ul Normal 0.00-0.03 [facility] Comment on above: Performed By: #### C BC ####[facility] [address] [place], [place] [address]Dr. Balta Gorman IG % 0.3 % Normal 0.0-0.5 [facility] Comment on above: Performed By: #### C BC ####[facility] [address] [place], [place] [address]Dr. Balta Gorman LYMPH # 1.6 103/ul Normal 1.2-3.8 [facility] Comment on above: Performed By: #### C BC ####[facility] [address] [address]Dr. Balta Gorman Lymphocytes/100 WBC (Bld) 17.7 % Critically low 20.5-60.0 [facility] Comment on above: Performed By: #### C BC ####[facility] [address] [place], [place] [address]DrPaola Gorman MANUAL DIFF REQ NO Normal [facility] Comment on above: Performed By: #### C BC ####[facility] [address] [address]DrPaola Gorman MCH (RBC) [Entitic mass] 22.5 pg Critically low 25.9-34.0 [facility] Comment on above: Performed By: #### C BC ####[facility] [address] [place], [place] [address]DrPaola Gorman MCHC (RBC) [Mass/Vol] 29.4 g/dL Critically low 29.9-35.2 [facility] Comment on above: Performed By: #### C BC ####[facility] [address] [place], [place] [address]DrPaola Gorman MCV (RBC) [Entitic vol] 76.6 fL Critically low 80.0-94.0 [facility] Comment on above: Performed By: #### C BC ####[facility] [address] [place], [place] [address]DrPaola Gorman MONO # 1.0 103/ul Critically high 0.3-0.8 [facility] Comment on above: Performed By: #### C BC ####[facility] [address] [place], [place] [address]DrPaola Gorman Monocytes/100 WBC (Bld) 11.0 % Normal 1.7-12.0 [facility] Comment on above: Performed By: #### C BC ####[facility] [address] [place], [place] [address]DrPaola Gorman NEUT # 5.9 103/ul Normal 1.4-6.5 [facility] Comment on above: Performed By: #### C BC ####[facility] [address] [id number]. Aurabenja Gorman Neutrophils/100 WBC (Bld) 66.9 % Normal 43.0-75.0 [facility] [place] [facility] Comment on above: Performed By: #### C BC ####[facility] [address] [address]DrPaola Gorman Platelet mean volume (Bld) [Entitic vol] 10.4 fL Normal 9.5-13.5 [facility] Comment on above: Performed By: #### C BC ####[facility] [address] [address]Dr. Balta Gorman PLT 319 103/ul Normal 150-450 [facility] Comment on above: Performed By: #### C BC ####[facility] [address] [address]DrPaola Gorman RBC 5.16 106/ul Normal 4.70-6.10 [facility] Comment on above: Result Comment: SLIG HT HYPOCHROMIA Performed By: #### C BC ####[facility] [address] [id number]. Balta Gorman WBC 8.8 103/ul Normal 4.0-11.0 [facility] Comment on above: Performed By: #### C BC ####[facility] [address] [id number]. Balta Gorman CULTURE BLOODon 03-22-2022 Microscopic examination of blood, culture Culture Observations: No growth at 5 days. Isolate 1 BC_BA_NA Normal [facility] Comment on above: Performed By: #### C VDTBH #### [facility] Laboratory [id number] Balta Gorman Microscopic examination of blood, culture Culture Observations: No growth at 5 days. Isolate 1 BC_BA_NA Normal [facility] Comment on above: Performed By: #### C VDTBH #### [facility] Laboratory [address] [address] [address] Balta Gorman Covid-19 PCR (CVDTB)on 03-05 SARS-CoV-2 (COVID-19) RNA DERICK+probe Ql (Unsp spec) Not detected Normal NOT DETECTED [facility] Comment on above: Result Comment: When diagnostic testing is negative, the possibility of a false negative should be considered in the context of a patient's recent exposures and the presence of clinical signs and symptoms consistent with SARS-CoV-2. This test is not yet approved or cleared by the [place] Food and Drug Administration (FDA). This test was developed by [employer], [place], [place]. The performance characteristics of this test were validated by The [facility] Laboratory. The results are not intended to be used as the sole means for clinical diagnosis or patient management decisions. The [facility] is authorized under Clinical Laboratory [...] for this test is supported by the [place] of Health and Human Service's declaration that [...] used). Performed By: #### C VDTBH #### [facility] Laboratory [address] [address] [address] Balta Gorman POINT OF CARE GLUCOSEon 03-05 Glucose [Mass/Vol] 121 mg/dL Critically high 74-106 [facility] Comment on above: Performed By: #### P OCGLUC #### [facility] Laboratory [address] [address] [address] Balta Gorman Glucose [Mass/Vol] 109 mg/dL Critically high 74-106 [facility] Comment on above: Performed By: #### P OCGLUC #### [facility] Laboratory [address] [place], [place] [address] Dr. Balta Gorman PROF 14(COMP METB)on 022 Albumin [Mass/Vol] 3.5 g/dL Normal 3.4-5.0 [facility] Comment on above: Performed By: #### C MP ####[facility] [address] [address]Dr. Balta Gorman Albumin/Globulin [Mass ratio] 0.8 {ratio} Normal [facility] Comment on above: Performed By: #### C MP ####[facility] [address] [address]Dr. Balta Gorman ALP [Catalytic activity/Vol] 78 U/L Normal 46-116 [facility] Comment on above: Performed By: #### C MP ####[facility] [address] [address]Dr. Balta Gorman ALT [Catalytic activity/Vol] 24 U/L Normal 16-63 [facility] Comment on above: Performed By: #### C MP ####[facility] [address] [address]Dr. Balta Gorman Anion gap [Moles/Vol] 11.9 mmol/L Normal [facility] Comment on above: Performed By: #### C MP ####[facility] [address] [address]Dr. Balta Gorman AST [Catalytic activity/Vol] 16 U/L Normal 15-37 [facility] Comment on above: Performed By: #### C MP ####[facility] [address] [address]Dr. Balta Gorman Bilirubin [Mass/Vol] 0.6 mg/dL Normal 0.2-1.0 [facility] Comment on above: Performed By: #### C MP ####[facility] [address] [address]Dr. Balta Gorman Calcium [Mass/Vol] 8.7 mg/dL Normal 8.5-10.1 [facility] Comment on above: Performed By: #### C MP ####[facility] [address] [id number]. Balta Gorman Chloride [Moles/Vol] 104 mmol/L Normal 98-107 [facility] Comment on above: Performed By: #### C MP ####[facility] [address] [id number]. Balta Gorman CO2 [Moles/Vol] 28.1 mmol/L Normal 21.0-32.0 [facility] Comment on above: Performed By: #### C MP ####[facility] [address] [id number]. Balta Gorman Creatinine [Mass/Vol] 1.24 mg/dL Normal 0.70-1.30 [facility] Comment on above: Performed By: #### C MP ####[facility] [address] [address]Dr. Aurabenja Sherif EGFR-AF OMANI >60 Normal >=60 [facility] Comment on above: Performed By: #### C MP ####[facility] [address] [id number]. Balta Sherif EGFR-NON AF OMANI 58 mL/min/1.73m2 Critically low >=60 [facility] Comment on above: Performed By: #### C MP ####[facility] [address] [address]Dr. Balta Gorman Globulin (S) [Mass/Vol] 4.4 g/dL Normal [facility] Comment on above: Performed By: #### C MP ####[facility] [address] [id number]. Balta Gorman Glucose [Mass/Vol] 205 mg/dL Critically high 74-106 [facility] Comment on above: Performed By: #### C MP ####[facility] [address] [address]Dr. Balta Gorman Potassium [Moles/Vol] 4.0 mmol/L Normal 3.5-5.1 [facility] Comment on above: Performed By: #### C MP ####[facility] [address] [address]Dr. Balta Gorman Protein [Mass/Vol] 7.9 g/dL Normal 6.4-8.2 [facility] Comment on above: Performed By: #### C MP ####[facility] [address] [place], [place] [address]Dr. Balta Gorman Sodium [Moles/Vol] 140 mmol/L Normal 136-145 [facility] Comment on above: Performed By: #### C MP ####[facility] [address] [place], [place] [address]Dr. Balta Gorman Urea nitrogen [Mass/Vol] 22.0 mg/dL Critically high 7.0-18.0 [facility] [place] [facility] Comment on above: Performed By: #### C MP ####[facility] [address] [place], [place] [address]Dr. Balta Gorman Urea nitrogen/Creatinine [Mass ratio] 17.7 mg/mg Normal [facility] [place] [facility] Comment on above: Performed By: #### C MP ####[facility] [address] [place], [place] [address]Dr. Balta Gorman UA (CLEAN/CATCH) MICROBIOLOGICAL LABORATORY TECHNICIAN/MICRO I F IND.on 03-22-2022 Bilirubin Ql (U) Negative Normal NEGATIVE [facility] Comment on above: Performed By: #### U ACSIND ####[facility] [address] [place], [place] [address]Dr. Balta Gorman Clarity (U) CLEAR Normal CLEAR [facility] [facility] Comment on above: Performed By: #### U ACSIND ####[facility] [address] [place], [place] [address]Dr. Balta Gorman Color (U) LT. YELLOW Normal YELLOW The [facility] Comment on above: Performed By: #### U ACSIND ####[facility] F[address] [place], [place] [address]Dr. Balta Gorman Glucose Ql (U) >1000 Abnormal NEGATIVE The [facility] Comment on above: Performed By: #### U ACSIND ####[facility] Ilxf[address] [place], [place] [address]Dr. Balta Gorman Hemoglobin Ql (U) Negative Normal NEGATIVE The [facility] Comment on above: Performed By: #### U ACSIND ####[facility] Hiewv[address] [place], [place] [address]Dr. Balta Gorman Ketones Ql (U) Negative Normal NEGATIVE The [facility] Comment on above: Performed By: #### U ACSIND ####[facility] [address] [place], [place] [address]Dr. Balta Gorman LEUKOCYTES Negative Normal NEGATIVE The [facility] Comment on above: Performed By: #### U ACSIND ####[facility] [address] [place], [place] [address]Dr. Balta Gorman Nitrite Ql (U) Negative Normal NEGATIVE The [facility] Comment on above: Performed By: #### U ACSIND ####[facility] Hyzzkx[address] [place], [place] [address]Dr. Balta Gorman pH (U) 6.0 [pH] Normal 5-9 The [facility] Comment on above: Performed By: #### U ACSIND ####[facility] F[address]uz[address] [place], [place] [address]Dr. Balta Gorman SPEC GRAVITY 1.010 Normal 1.005-<=1.02 5 [facility] Comment on above: Performed By: #### U ACSIND ####[facility] N[address] [place], [place] [address]Dr. Balta Gorman UA PROTEIN Negative Normal NEGATIVE/ TRACE The [facility] Comment on above: Performed By: #### U ACSIND ####[facility] Edktvg[address] [place], [place] [address]Dr. Balta Gorman UR MICRO IND NOT INDICATED Normal The [facility] Comment on above: Performed By: #### U ACSIND ####[facility] Gvzz[address] [place], [place] [address]Dr. Balta Sherif Urobilinogen Qn (U) 0.2 {Jose Luis'U}/dL Normal 0.2 - 1. 0 [facility] Comment on above: Performed By: #### U ACSIND ####[facility] [address] [place] [address]Nn. Balta Gorman XR FOOT RT MIN 3 [...] HELGA GOLDBERG Date: 2022-03-22 15:21 Normal The [facility] Laboratory - Chemistry and C hemistry - challengeon 03-10-2022 Cholesterol [Mass/Vol] 167\S\167 Normal 140-200 [place] [address] DO Work Phone: Comment on above: Chol less than 200 m g/dl low risk Chol 201-239 mg/dl borderline risk Chol 240 mg/dl and greater high risk Cholesterol in LDL [Mass/Vol] 80\S\80 Normal 0-100 [place] [address] DO Work Phone: Comment on above: LDL ATP III CLASSIFI CATION LDL less than 100 mg/dL Optimal LDL 100-129 mg/dL Near or above optimal LDL 130-159 mg/dL Borderline high LDL 160-189 mg/dL High LDL greater than 189 mg/dL Very high Laboratory - Microbiology an d Antimicrobial susceptibilityon 03-10-2022 SARS-CoV-2 (COVID-19) RNA DERICK+probe Ql (Unsp spec) [place] [address] DO Work Phone: No Panel Informationon 03-10 0.1\S\0.1 Normal 0-0.5 [place] [address] DO Work Phone: Comment on above: PERFORMED BY:[facility] [place], [place] [phone] MEDICAL DIRECTORERLIN GUPTA M.D. 0.2\S\0.2 Normal 0.0-0.45 -[facility] 600 DO Work Phone: 0.7\S\0.7 Normal 0.0-0.8 -[facility] [address] DO Work Phone: 1.6\S\1.6 Normal . -[facility] [address] DO Work Phone: 3.8\S\3.8 Normal 1.8-7.7 -[facility] [address] DO Work Phone: 3.4\S\3.4 Normal . [facility] 600 DO Work Phone: 10.2\S\10.2 Normal . [facility] 600 DO Work Phone: 25.1\S\25.1 Normal . -[facility] 600 DO Work Phone: 59.7\S\59.7 Normal . [facility] 600 DO Work Phone: 8.6\S\8.6 Normal 6.6-10.1 -[facility] 600 DO Work Phone: 270\S\270 Normal 150-450 [facility] 600 DO Work Phone: 17.0\S\17.0 above high threshold 12.0-14.8 -[facility] 600 DO Work Phone: 31.9\S\31.9 below low threshold 32.5-35.6 -[facility] 600 DO Work Phone: 22.6\S\22.6 below low threshold 27.5-35.2 [facility] [address] DO Work Phone: 70.8\S\70.8 below low threshold 83.5-101 [facility] DO Work Phone: 38.9\S\38.9 Normal 38.8-50.0 [facility] 600 DO Work Phone: 12.4\S\12.4 below low threshold 13.0-17.0 [facility] 600 DO Work Phone: 5.49\S\5.49 Normal 3.90-5.60 [facility] 600 DO Work Phone: 6.4\S\6.4 Normal 4.1-10.5 [facility] 600 DO Work Phone: 30.4\S\30.4 Normal 25.1-36.5 [facility] 600 DO Work Phone: Comment on above: PERFORMED BY:[place] [address] [address] [place], [place] [phone] MEDICAL DIRECTORERLIN GUPTA M.D. 1.1\S\1.1 Normal [employer] 600 DO Work Phone: Comment on above: [...] valves: 3 - 4.5 12.7\S\12.7 Normal 9.0-12.9 [facility] [address] DO Work Phone: Negative Normal Negative [facility] DO Work Phone: Comment on above: This is a duplicate Erum SARS Antigen (JOSE L) result to be used for statistical tracking purpose only.PERFORMED BY:[facility] [place], [place] [phone] MEDICAL DIRECTORERLIN GUPTA M.D. 22.9\S\22.9 Normal 22.0-30.0 [facility] 600 DO Work Phone: 105\S\105 Normal 95-114 [facility] [address] DO Work Phone: 4.3\S\4.3 Normal 3.5-5.1 -[facility] [address] DO Work Phone: 137\S\137 Normal 136-146 -[facility] [address] DO Work Phone: 21\S\21 below low threshold 29-71 [facility] 600 DO Work Phone: Comment on above: HDL CHOL ATP-III CLA SSIFICATION Cardiovascular Risk HDL > or equal to 60 mg/dL LOW HDL < 40 mg/dL HIGH > 60 Normal -[facility] 600 DO Work Phone: Comment on above: GFR estimated refere nce range: According to KDOQI guidelines, <60 ml/min/1.73m2 is sufficient to diagnose a patient with chronic kidney disease. 1.01\S\1.01 Normal 0.64-1.27 [facility] 600 DO Work Phone: 8.0\S\8.0 Normal <5.0 [facility] [address] DO Work Phone: Comment on above: PERFORMED BY:[facility] [place], [place] [phone] MEDICAL DIRECTORERLIN GUPTA M.D. 66\S\65 Normal [facility] 600 DO Work Phone: 328\S\328 above high threshold 35-149 [facility] 600 DO Work Phone: Comment on above: TRIG ATP III CLASSIF ICATION TRIG less than 150 mg/dL Normal TRIG 150-199 mg/dL Borderline high TRIG 200-500 mg/dL High TRIG greater than 500 mg/dL Very high Standard traceable to the Center for Disease Conrtrol and Prevention (CDC) test method. [facility] CARDIAC STRESS/REST INJE CTIONon 03-01-2022 [facility] CARDIAC STRESS/REST INJECTION Patient Name: JANICE FORD STUDY: MYOCARDIAL PERFUSION STRESS TEST WITH LEXISCAN Performing facility: [facility], [address] [place] [address], [address], [place] [address] [facility] Provider: Helga Flores DO, [facility] PCP: Dr. Vineet Agrawal Supervising provider: Ratna Elias DO, [facility] INDICATION: Angina CAD; S/P PTCA HISTORY: Gender: M; Age: 67 y/o ; Height: 185.42 cm; Weight: 106.161630 kg. High Cholesterol; CAD; Diabetes; HTN; Chest Pain; Denies smoking. Cardiac catheterization on 2021. PTCA on 2021. CABG on 1992. COMPARISON: Previous nuclear testing completed at [facility]. ACCESSION NUMBER(S): [id number]; [id number]; [id number] ORDERING CLINICIAN: HELGA FLORES TECHNIQUE: ONE DAY [...] Electronically signed by: MARGAUX CASTILLO MD Normal [facility] No Panel Informationon 03-01 Normal -[facility] 250 DO Work Phone: Complete Blood Count with Au to Diffon 01-23-2022 Basophils (Bld) [#/Vol] 0.08 10*3/uL Normal 0.00-0.20 [facility] Specialist Comment on above: Performed By: #### C BCAD #### [facility] [address], [place] [id number] Basophils/100 WBC (Bld) 1.1 % Normal [facility] Comment on above: Performed By: #### C BCAD #### [facility] [address], [place] [id number] Eosinophils (Bld) [#/Vol] 0.29 10*3/uL Normal 0.02-0.50 [facility] Comment on above: Performed By: #### C BCAD #### [facility] [address], [place] [id number] Eosinophils/100 WBC (Bld) 4.1 % Normal [facility] Comment on above: Performed By: #### C BCAD #### [facility] [address], [place] [id number] Erythrocyte distribution width (RBC) [Ratio] 17.6 % High 11.0-15.0 [place] [employer] Comment on above: Performed By: #### C BCAD #### [facility] [address], [place] [id number] Hematocrit (Bld) [Volume fraction] 41.0 % Normal 38.5-50.0 [facility] Specialist Comment on above: Performed By: #### C BCAD #### [facility] [address], [place] [id number] Hemoglobin (Bld) [Mass/Vol] 11.9 g/dL Low 13.0-17.1 [facility] Specialist Comment on above: Performed By: #### C BCAD #### [facility] [address], [place] [id number] Lymphocytes (Bld) [#/Vol] 1.8 10*3/uL Normal 0.9-3.9 [facility] Specialist Comment on above: Performed By: #### C BCAD #### [facility] [address], [place] [id number] Lymphocytes/100 WBC (Bld) 25.1 % Normal [facility] Specialist Comment on above: Performed By: #### C BCAD #### [facility] [address], [place] [id number] MCH (RBC) [Entitic mass] 21.9 pg Low 27.0-33.0 [facility] Specialist Comment on above: Performed By: #### C BCAD #### [facility] [address], [place] [id number] MCHC (RBC) [Mass/Vol] 29.0 g/dL Low 32.0-36.0 [facility] Specialist Comment on above: Performed By: #### C BCAD #### [facility] [address], [place] [id number] MCV (RBC) [Entitic vol] 76 fL Low 80-100 [facility] Specialist Comment on above: Performed By: #### C BCAD #### [facility] [address], [place] [id number] Monocytes (Bld) [#/Vol] 0.7 10*3/uL Normal 0.2-0.9 [facility] Specialist Comment on above: Performed By: #### C BCAD #### [facility] [address], [place] [id number] Monocytes/100 WBC (Bld) 9.3 % Normal [facility] Comment on above: Performed By: #### C BCAD #### [facility] [address], [place] [id number] Neutrophils (Bld) [#/Vol] 4.3 10*3/uL Normal 1.5-7.8 [facility] Comment on above: Performed By: #### C BCAD #### [facility] [address], [place] [id number] Neutrophils/100 WBC (Bld) 60.0 % Normal [facility] Comment on above: Performed By: #### C BCAD #### [facility] [address], [place] [id number] Platelet mean volume (Bld) [Entitic vol] 10.50 fL Normal 7.50-12.50 [facility] Comment on above: Performed By: #### C BCAD #### [facility] [address], [place] [id number] Platelets (Bld) [#/Vol] 306 10*3/uL Normal 140-400 [facility] Comment on above: Performed By: #### C BCAD #### [facility] [address], [place] [id number] RBC (Bld) [#/Vol] 5.43 10*6/uL Normal 4.20-5.80 [facility] Comment on above: Performed By: #### C BCAD #### [facility] [address], [place] [id number] RDW-SD 46.0 fL Normal 37.0-50.0 [facility] Comment on above: Performed By: #### C BCAD #### [facility] [address], [place] [id number] WBC (Bld) [#/Vol] 7.1 10*3/uL Normal 3.8-11.0 [facility] Comment on above: Performed By: #### C BCAD #### [facility] [address], [place] [id number] Hemoglobin A1Con 03-21-2022 EAG 182.90 Normal [facility] [employer] Comment on above: Performed By: #### A 1C #### [facility] [address], [place] [id number] HbA1c (Bld) [Mass fraction] 8.0 % High 4.0-6.0 [facility] [employer] Comment on above: Performed By: #### A 1C #### [facility] [address], [place] [id number] Lipid Panelon 01-23-2022 Cholesterol [Mass/Vol] 177 mg/dL Normal 125-200 [facility] [employer] Comment on above: Result Comment: Low risk < 200mg/dL Borderline risk 201-239 mg/dl High risk > or equal to 240 Performed By: #### L IPD #### [facility] [address], [place] [id number] Cholesterol in HDL [Mass/Vol] 25 mg/dL Low >40 [facility] [employer] Comment on above: Result Comment: High Cardiovascular Risk HDL <40 mg/dL Low Cardiovascular Risk HDL > or equal to 60 mg/dl Performed By: #### L IPD #### [facility] [address], [place] [id number] Cholesterol in LDL [Mass/Vol] 83 mg/dL Normal [facility] [employer] Comment on above: Result Comment: LDL ATP III CLASSIFICATION LDL less than 100 mg/dl Optimal LDL 100-129 mg/dl Near or above optimal LDL 130-159 Borderline high LDL 160-189 High LDL greater than 189 mg/dl Very High Performed By: #### L IPD #### [facility] [address], [place] [id number] Cholesterol in VLDL [Mass/Vol] 69 mg/dL Normal [facility] [employer] Comment on above: Performed By: #### L IPD #### [facility] [address], [place] [id number] Cholesterol.total/Ch olesterol in HDL [Mass ratio] 7 {ratio} Normal [facility] [employer] Comment on above: Performed By: #### L IPD #### [facility] [address], [place] [id number] Triglyceride [Mass/Vol] 343 mg/dL High 30-150 [facility] [employer] Comment on above: Result Comment: TRIG ATPIII CLASSIFICATIONS TRIG less than 150 mg/dl Normal TRIG 150-199 mg/dl Borderline High TRIG 200-500 mg/dl High TRIG greather than 500 mg/dl Very High Performed By: #### L IPD #### [facility] [address], [place] [id number] PSA SCREEN (MEDICARE)on 01-04 TPSA 0.405 ng/mL Normal <4.000 [facility] [employer] Comment on above: Result Comment: PSA Test Method: ECLIA/Joseph e 601 Performed By: #### P SA #### [facility] [address], [place] [id number] Tobacco Screening.on 022 Fall risk assessment a) No falls within the last year [facility] [employer] DO Work Phone: Tobacco use status CPHS b) No [place] [address] DO Work Phone: Laboratory - Chemistry and C hemistry - challengeon 11-07-2021 Cholesterol [Mass/Vol] 183\S\183 Normal 140-200 [facility] [employer] DO Work Phone: Comment on above: Chol less than 200 m g/dl low risk Chol 201-239 mg/dl borderline risk Chol 240 mg/dl and greater high risk Cholesterol in LDL [Mass/Vol] 97\S\97 Normal 0-100 [place] [address] DO Work Phone: Comment on above: LDL ATP III CLASSIFI CATION LDL less than 100 mg/dL Optimal LDL 100-129 mg/dL Near or above optimal LDL 130-159 mg/dL Borderline high LDL 160-189 mg/dL High LDL greater than 189 mg/dL Very high Laboratory - Microbiology an d Antimicrobial susceptibilityon 11-07-2021 SARS-CoV-2 (COVID-19) RNA DERICK+probe Ql (Unsp spec) [facility] [employer] DO Work Phone: No Panel Informationon 11-07 56.2\S\56.2 Normal . [facility] [facility] 250 DO Work Phone: 8.5\S\8.5 Normal 6.6-10.1 -[facility] 250 DO Work Phone: 279\S\279 Normal 150-450 [facility] [address] DO Work Phone: 16.0\S\16.0 above high threshold 12.0-14.8 [facility] [address] DO Work Phone: 31.3\S\31.3 below low threshold 32.5-35.6 -[facility] [address] DO Work Phone: 22.7\S\22.7 below low threshold 27.5-35.2 [facility] [address] DO Work Phone: 3.5\S\3.5 Normal 1.8-7.7 [facility] 250 DO Work Phone: 0.1\S\0.1 Normal 0.0-0.2 [facility] 250 DO Work Phone: Comment on above: PERFORMED BY:[place] [address] [address] [place], [place] [phone] MEDICAL DIRECTORERLIN GUPTA M.D. 1.4\S\1.4 Normal . [facility] 250 DO Work Phone: 4.0\S\4.0 Normal . [facility] 250 DO Work Phone: 10.2\S\10.2 Normal . [facility] 250 DO Work Phone: 28.2\S\28.2 Normal . [facility] 250 DO Work Phone: 0.2\S\0.2 Normal 0.0-0.45 -[facility] 250 DO Work Phone: 0.6\S\0.6 Normal 0.0-0.8 [facility] 250 DO Work Phone: 1.7\S\1.7 Normal 1.00-4.8 [facility] [address] DO Work Phone: 72.3\S\72.3 below low threshold 83.5-101 [facility] 250 DO Work Phone: 39.8\S\39.8 Normal 38.8-50.0 [facility] 250 DO Work Phone: 12.5\S\12.5 below low threshold 13.0-17.0 [facility] 250 DO Work Phone: 5.50\S\5.50 Normal 3.90-5.60 [facility] 250 DO Work Phone: 6.2\S\6.2 Normal 4.1-10.5 [facility] 250 DO Work Phone: 34.4\S\34.4 Normal 25.1-36.5 [facility] 250 DO Work Phone: Comment on above: PERFORMED BY:[place] [address] [address] [place], [place] [phone] MEDICAL DIRECTORERLIN GUPTA M.D. 1.1\S\1.1 Normal [facility] Work Phone: Comment on [...] valves: 3 - 4.5 12.2\S\12.2 Normal 9.0-12.9 [facility] [facility] [address] DO Work Phone: Negative Normal Negative -[facility] [address] DO Work Phone: Comment on above: This is a duplicate Erum SARS Antigen (JOSE L) result to be used for statistical tracking purpose only.PERFORMED BY:[facility] [place], [place] [phone] MEDICAL DIRECTORERLIN GUPTA M.D. 24.2\S\24.2 Normal 22.0-30.0 [facility] 250 DO Work Phone: 101\S\101 Normal 95-114 [facility] [address] DO Work Phone: 4.5\S\4.5 Normal 3.5-5.1 [facility] 250 DO Work Phone: 139\S\139 Normal 136-146 [facility] [address] DO Work Phone: 23\S\23 Normal 9-23 -[facility] [address] DO Work Phone: > 60 Normal [facility] [address] DO Work Phone: Comment on above: GFR estimated refere nce range: According to KDOQI guidelines, <60 ml/min/1.73m2 is sufficient to diagnose a patient with chronic kidney disease. 1.14\S\1.14 Normal 0.64-1.27 [facility] 250 DO Work Phone: 9.2\S\9.2 Normal <5.0 [facility] [address] DO Work Phone: Comment on above: PERFORMED BY:[facility] [place] [phone] MEDICAL DIRECTORERLIN GUPTA M.D. 65\S\65 Normal [facility] 250 DO Work Phone: 329\S\329 above high threshold 35-149 [facility] [address] DO Work Phone: Comment on above: TRIG ATP III CLASSIF ICATION TRIG less than 150 mg/dL Normal TRIG 150-199 mg/dL Borderline high TRIG 200-500 mg/dL High TRIG greater than 500 mg/dL Very high Standard traceable to the Center for Disease Conrtrol and Prevention (CDC) test method. 20\S\20 below low threshold 29-71 [facility] [address] DO Work Phone: Comment on above: HDL CHOL ATP-III CLA SSIFICATION Cardiovascular Risk HDL > or equal to 60 mg/dL LOW HDL < 40 mg/dL HIGH [facility] CARDIAC STRESS/REST INJE CTIONon 10-12-2021 [facility] CARDIAC STRESS/REST INJECTION Patient Name: JANICE FORD STUDY: MYOCARDIAL PERFUSION STRESS TEST WITH LEXISCAN Performing facility: [facility], [address] [place] [address], [address], [address] Provider: [facility] Flores [facility] PCP: Dr. Vineet Agrawal Supervising provider: Erika Osborne MD, [facility] INDICATION: CAD; HISTORY: Gender: M; Age: 66 y/o ; Height: 185.42 cm; Weight: 106.663491 kg. High Cholesterol; CAD; Diabetes; HTN; Chest Pain; Denies smoking. Cardiac catheterization on 2014. PTCA on 2014. COMPARISON: Previous nuclear testing completed at [facility]. ACCESSION NUMBER(S): [id number]; [id number]; [id number] ORDERING CLINICIAN: HELGA FLORES TECHNIQUE: ONE DAY [...] Electronically signed by: ERIKA OSBORNE MD Normal [facility] No Panel Informationon 10-12 Normal [facility] 600 DO Work Phone: Quick Strepon 10-10-2021 S. pyogenes Org specific cx Ql (Throat) Negative [employer] [facility] [email or web address] Other Quick Strep [facility] [email or web address] Other Tobacco Screening.on 021 Fall risk assessment a) No falls within the last year [facility] 250 DO Work Phone: Tobacco use status CPHS b) No [facility] [address] DO Work Phone: Vital Signs Date Time Vital Sign Value Performing Clinician Facility 02-23-2025 09:20-0400 Diastolic blood pressure 86 mm[Hg] Svetlana 1 [facility] 02-23-2025 09:20-0400 Heart rate 76 /min Svetlana 1 [facility] 02-23-2025 09:20-0400 Systolic blood pressure 136 mm[Hg] Svetlana 1 [facility] 01-29-2025 08:49-0400 Body height 185.4 cm Latha Caicedo PA Work Phone: [facility] 01-29-2025 08:49-0400 Body mass index (BMI) [Ratio] 28.1 kg/m2 Latha Caicedo PA Work Phone: [facility] 01-29-2025 08:49-0400 Body temperature 97.3 [degF] Latha Caicedo PA Work Phone: [facility] 01-29-2025 08:49-0400 Body weight 96.62 kg Latha Caicedo PA Work Phone: [facility] 01-29-2025 08:49-0400 Diastolic blood pressure 72 mm[Hg] Latha Caicedo PA Work Phone: [facility] 01-29-2025 08:49-0400 Heart rate 76 /min Latha Caicedo PA Work Phone: [facility] 01-29-2025 08:49-0400 SaO2% (BldA) [Mass fraction] 96 % Latha Caicedo PA Work Phone: [facility] 01-29-2025 08:49-0400 Systolic blood pressure 130 mm[Hg] Latha Caicedo PA Work Phone: [facility] 01-28-2025 10:05-0400 Body height 185.4 cm Martin Elias DO Work Phone: [facility] 01-28-2025 10:05-0400 Body mass index (BMI) [Ratio] 28.68 kg/m2 Martin Elias DO Work Phone: [facility] 01-28-2025 10:05-0400 Body weight 98.61 kg Martin Elias DO Work Phone: [facility] 01-28-2025 10:05-0400 Diastolic blood pressure 66 mm[Hg] Martin Elias DO Work Phone: [facility] 01-28-2025 10:05-0400 Heart rate 82 /min Martin Elias DO Work Phone: [facility] 01-28-2025 10:05-0400 Systolic blood pressure 116 mm[Hg] Martin Elias DO Work Phone: [facility] 12-04-2024 11:36-0500 Body height 185.4 cm Joyce Evert CASE BRIEFER Work Phone: [facility] 12-04-2024 11:36-0500 Body mass index (BMI) [Ratio] 28.23 kg/m2 Joyce Geney CASE BRIEFER Work Phone: [facility] 12-04-2024 11:36-0500 Body temperature 98.01 [degF] Joyce Geney CASE BRIEFER Work Phone: [facility] 12-04-2024 11:36-0500 Body weight 97.07 kg Joyce Geney CASE BRIEFER Work Phone: [facility] 12-04-2024 11:36-0500 Diastolic blood pressure 78 mm[Hg] Joyce Geney CASE BRIEFER Work Phone: [facility] 12-04-2024 11:36-0500 Heart rate 62 /min Joyce Millsmartinez CASE BRIEFER Work Phone: [facility] 12-04-2024 11:36-0500 SaO2% (BldA) [Mass fraction] 99 % Joyce Geney CASE BRIEFER Work Phone: [facility] 12-04-2024 11:36-0500 Systolic blood pressure 120 mm[Hg] Joyce Geney CASE BRIEFER Work Phone: [facility] 12-04-2024 11:15-0500 Body height 185.4 cm Nitish Agrawal DO Work Phone: [facility] 12-04-2024 11:15-0500 Body mass index (BMI) [Ratio] 28.23 kg/m2 Nitish Agrawal DO Work Phone: [facility] 12-04-2024 11:15-0500 Body temperature 98.01 [degF] Nitish Agrawal DO Work Phone: [facility] 12-04-2024 11:15-0500 Body weight 97.07 kg Nitish Agrawal DO Work Phone: [facility] 12-04-2024 11:15-0500 Diastolic blood pressure 78 mm[Hg] Nitish Agrawal DO Work Phone: [facility] 12-04-2024 11:15-0500 Heart rate 62 /min Nitish Agrawal DO Work Phone: [facility] 12-04-2024 11:15-0500 SaO2% (BldA) [Mass fraction] 99 % Nitish Agrawal DO Work Phone: [facility] 12-04-2024 11:15-0500 Systolic blood pressure 120 mm[Hg] Nitish Agrawal DO Work Phone: [facility] 12-01-2024 09:09-0500 Body height 185.4 cm Lashaun Petznick DO Work Phone: [facility] 12-01-2024 09:09-0500 Body mass index (BMI) [Ratio] 28.5 kg/m2 Lashaun Petznick DO Work Phone: [facility] 12-01-2024 09:09-0500 Body temperature 98.29 [degF] Lashaun Petznick DO Work Phone: [facility] 12-01-2024 09:09-0500 Body weight 97.98 kg Lashaun Petznick DO Work Phone: [facility] 12-01-2024 09:09-0500 Diastolic blood pressure 82 mm[Hg] Lashaun Petznick DO Work Phone: [facility] 12-01-2024 09:09-0500 Heart rate 83 /min Lashaun Petznick DO Work Phone: [facility] 12-01-2024 09:09-0500 SaO2% (BldA) [Mass fraction] 96 % Lashaun Petznick DO Work Phone: [facility] 12-01-2024 09:09-0500 Systolic blood pressure 140 mm[Hg] Lashaun Petznick DO Work Phone: [facility] 09-01-2024 09:14-0400 Body height 185.4 cm Lashaun Petznick DO Work Phone: [facility] 09-01-2024 09:14-0400 Body mass index (BMI) [Ratio] 29.5 kg/m2 Lashaun Petznick DO Work Phone: [facility] 09-01-2024 09:14-0400 Body temperature 96.6 [degF] Lashaun Petznick DO Work Phone: [facility] 09-01-2024 09:14-0400 Body weight 101.42 kg Lashaun Petznick DO Work Phone: [facility] 09-01-2024 09:14-0400 Diastolic blood pressure 72 mm[Hg] Lashaun Petznick DO Work Phone: [facility] 09-01-2024 09:14-0400 Heart rate 69 /min Lashaun Petznick DO Work Phone: [facility] 09-01-2024 09:14-0400 SaO2% (BldA) [Mass fraction] 96 % Lashaun Petznick DO Work Phone: [facility] 09-01-2024 09:14-0400 Systolic blood pressure 124 mm[Hg] Lashaun Petznick DO Work Phone: [facility] 06-16-2024 15:30-0400 Body height 185.4 cm Nitish Agrawal DO Work Phone: [facility] 06-16-2024 15:30-0400 Body mass index (BMI) [Ratio] 29.42 kg/m2 Nitish Agrawal DO Work Phone: [facility] 06-16-2024 15:30-0400 Body temperature 98.29 [degF] Nitish Agrawal DO Work Phone: [facility] 06-16-2024 15:30-0400 Body weight 101.15 kg Nitish Agrawal DO Work Phone: [facility] 06-16-2024 15:30-0400 Diastolic blood pressure 80 mm[Hg] Nitish Agrawal DO Work Phone: [facility] 06-16-2024 15:30-0400 Heart rate 80 /min Nitish Agrawal DO Work Phone: [facility] 06-16-2024 15:30-0400 Systolic blood pressure 122 mm[Hg] Nitish Agrawal DO Work Phone: [facility] 01-29-2024 14:36-0400 Body height 185.4 cm Martin Elias DO Work Phone: [facility] 01-29-2024 14:36-0400 Body mass index (BMI) [Ratio] 29.69 kg/m2 Martin Elias DO Work Phone: [facility] 01-29-2024 14:36-0400 Body weight 102.06 kg Martin Elias DO Work Phone: [facility] 01-29-2024 14:36-0400 Diastolic blood pressure 70 mm[Hg] Martin Elias DO Work Phone: [facility] 01-29-2024 14:36-0400 Heart rate 86 /min Martin Elias DO Work Phone: [facility] 01-29-2024 14:36-0400 Systolic blood pressure 138 mm[Hg] Martin Elias DO Work Phone: [facility] 05-10-2023 12:10-0400 Body height 185.42 cm Barbara Ellis Other [employer] Other 05-10-2023 12:10-0400 Body mass index (BMI) [Ratio] 30.26 kg/m2 Barbara Ellis Other [employer] Other 05-10-2023 12:10-0400 Body temperature 97.8 [degF] Barbara Ellis Other [employer] Other 05-10-2023 12:10-0400 Body weight 104.06 kg Barbara Ellis Other [employer] Other 05-10-2023 12:10-0400 Respiratory rate 18 /min Barbara Ellis Other [employer] Other 05-10-2023 12:10-0400 SaO2% (BldA) [Mass fraction] 97 % Barbara Ellis Other [employer] Other 01-23-2023 11:01-0400 Body height 185.42 cm Nitish Agrawal [facility] [facility] DO Work Phone: 01-23-2023 11:01-0400 Body mass index (BMI) [Ratio] 30.08 kg/m2 Nitish Agrawal Work Phone: [facility] [facility] DO Work Phone: 01-23-2023 11:01-0400 Body surface area Derived from formula 2.28 m2 Nitish Agrawal Work Phone: [facility] [facility] DO Work Phone: 01-23-2023 11:01-0400 Body weight 103.42 kg Nitish Agrawal Work Phone: [facility] 250 DO Work Phone: 01-23-2023 11:01-0400 Diastolic blood pressure 60 mm[Hg] Nitish Agrawal Work Phone: [facility] [facility] DO Work Phone: 01-23-2023 11:01-0400 Heart rate 60 /min Nitish Agrawal Work Phone: [facility] [facility] DO Work Phone: 01-23-2023 11:01-0400 Systolic blood pressure 108 mm[Hg] Nitish Agrawal Work Phone: [facility] [address] DO Work Phone: 05-01-2022 09:28-0400 Body height 185.42 cm Nitish Agrawal Work Phone: [facility] 250 DO Work Phone: 05-01-2022 09:28-0400 Body mass index (BMI) [Ratio] 29.42 kg/m2 Nitish Agrawal Work Phone: [facility] 250 DO Work Phone: 05-01-2022 09:28-0400 Body surface area Derived from formula 2.25 m2 Nitish Agrawal Work Phone: [facility] 250 DO Work Phone: 05-01-2022 09:28-0400 Body weight 101.15 kg Nitish Agrawal Work Phone: [facility] 250 DO Work Phone: 05-01-2022 09:28-0400 Diastolic blood pressure 50 mm[Hg] Nitish Agrawal Work Phone: [facility] 250 DO Work Phone: 05-01-2022 09:28-0400 Heart rate 80 /min Nitish Agrawal Work Phone: [facility] 250 DO Work Phone: 05-01-2022 09:28-0400 Systolic blood pressure 80 mm[Hg] Nitish Agrawal Work Phone: [facility] 250 DO Work Phone: 03-01-2022 07:30-0400 40 1 Nitish Agrawal Work Phone: [facility] 600 DO Work Phone: Comment on above: [id number] 11-22-2021 10:31-0500 Body height 182.88 cm Nitish Agrawal Work Phone: [facility] 250 DO Work Phone: 11-22-2021 10:31-0500 Body mass index (BMI) [Ratio] 30.38 kg/m2 Nitish Agrawal Work Phone: [facility] 250 DO Work Phone: 11-22-2021 10:31-0500 Body surface area Derived from formula 2.24 m2 Nitish Agrawal Work Phone: [facility] 250 DO Work Phone: 11-22-2021 10:31-0500 Body weight 101.61 kg Nitish Agrawal Work Phone: [facility] 250 DO Work Phone: 11-22-2021 10:31-0500 Diastolic blood pressure 72 mm[Hg] Nitish Agrawal Work Phone: [facility] 250 DO Work Phone: 11-22-2021 10:31-0500 Heart rate 66 /min Nitish Agrawal Work Phone: [facility] 250 DO Work Phone: 11-22-2021 10:31-0500 Systolic blood pressure 124 mm[Hg] Nitish Agrawal Work Phone: [facility] 250 DO Work Phone: 10-10-2021 10:00-0500 Body height 185.42 cm Jaelyn Espinal Other [employer] Other 10-10-2021 10:00-0500 Body temperature 97.5 [degF] Jaelyn Espinal Other [employer] Other 10-10-2021 10:00-0500 SaO2% (BldA) [Mass fraction] 99 % Jaelyn Espinal Other [facility] [email or web address] Other 09-27-2021 09:48-0500 Body height 182.88 cm Nitish Agrawal Work Phone: [facility] 250 DO Work Phone: 09-27-2021 09:48-0500 Body mass index (BMI) [Ratio] 30.65 kg/m2 Nitish Agrawal Work Phone: [facility] 250 DO Work Phone: 09-27-2021 09:48-0500 Body surface area Derived from formula 2.24 m2 Nitish Agrawal Work Phone: [facility] 250 DO Work Phone: 09-27-2021 09:48-0500 Body weight 102.51 kg Nitish Agrawal Work Phone: [facility] 250 DO Work Phone: 09-27-2021 09:48-0500 Diastolic blood pressure 59 mm[Hg] Nitish Agrawal Work Phone: [facility] 250 DO Work Phone: 09-27-2021 09:48-0500 Heart rate 73 /min Nitish Agrawal Work Phone: [facility] 250 DO Work Phone: 09-27-2021 09:48-0500 Systolic blood pressure 129 mm[Hg] Nitish Agrawal Work Phone: [facility] 250 DO Work Phone: 09-27-2021 09:48-0500 46 1 Nitish Agrawal Work Phone: [facility] [address] [place] Work Phone: Comment on above: [id number] Encounters Encounter Date Encounter Type Care Provider Facility Start: 05-24-2025 End: 05-25-2025 Refill Latha Caicedo PA Work Phone: [facility] 230 Comment on above: Anxiety Start: 05-20-2025 End: 05-20-2025 Clinisync Result Encounter Generic External Data Provider [facility] External Department Unsolicited Start: 05-20-2025 End: 05-20-2025 Clinisync Result Encounter Generic External Data Provider [facility] External Department Unsolicited Start: 05-19-2025 End: 05-19-2025 ambulatory Nisha Núñez [facility] Work Phone: Start: 05-19-2025 End: 05-19-2025 Departed Referred Nisha [facility] Start: 05-18-2025 End: 05-19-2025 Clinisync Result [...] Unsolicited Start: 03-27-2025 End: 03-27-2025 ambulatory LASHAUN Dimas KIRK Not Available Start: 02-23-2025 End: 02-24-2025 Clinisync Result Encounter Generic External Data Provider [facility] External Department Unsolicited Start: 02-23-2025 End: 02-24-2025 Clinisync Result Encounter Generic External Data Provider [facility] External Department Unsolicited Start: 02-23-2025 End: 02-23-2025 Subsequent hospital visit by physician Svetlana Garertt Nm Admin Room 1 [facility] Comment on above: Arteriosclerotic car diovascular disease (ASCVD); History of coronary artery bypass graft; Status post angioplasty; Angina pectoris; Palpitations; Tachycardia Start: 02-23-2025 End: 02-23-2025 ambulatory [facility] Start: 01-30-2025 End: 01-30-2025 ambulatory [facility] Ambulatory Start: 01-29-2025 End: 01-29-2025 Bamboo [...] End: 01-28-2025 Office outpatient visit 40 minutes [facility] DO Work Phone: [facility] Comment on above: Arteriosclerotic car diovascular [...] cardiomyopathy Start: 01-28-2025 End: 01-28-2025 ambulatory [facility] Ambulatory Start: 12-04-2024 End: 12-04-2024 Bamboo flowsheet Nitish Agrawal DO Work Phone: [facility] 230 Start: 12-04-2024 End: 12-04-2024 Bamboo flowsheet Nitish Agrawal DO [id number] Start: 12-04-2024 End: 12-04-2024 Assay of hemosiderin, quant Joyce Loyd CASE BRIEFER Work Phone: [facility] Start: 12-04-2024 End: 12-04-2024 Patient encounter procedure Joyce Loyd CASE BRIEFER [facility]: [facility] 230 Comment on above: Routine [...] 25 minutes Nitish Agrawal DO Work Phone: [facility] 230 Comment on above: Hypothyroidism (acqu ired) (CMS/HCC) (Primary Dx) Start: 12-04-2024 End: 12-04-2024 ambulatory JOYCE LOYD Not Available Start: 12-01-2024 End: 12-01-2024 Office outpatient visit 25 minutes Lashaun Bradley DO Work Phone: [facility] 230 Comment on above: Type 2 diabetes lisandro itus with other circulatory complications (CMS/HCC) (Primary Dx); Type 2 diabetes mellitus with stage 3a chronic kidney disease, without long-term current use of insulin (HCC) (CMS/HCC); Preventative health care; Screening for prostate cancer Start: 12-01-2024 End: 12-01-2024 Patient encounter status Lashaun Bradley DO Work Phone: [facility] Start: 12-01-2024 End: 12-01-2024 ambulatory LASHAUN BRADLEY Not Available Start: 09-01-2024 End: 09-01-2024 Office outpatient visit 25 minutes Lashaun Bradley DO Work Phone: [facility] 230 Comment on above: Type 2 diabetes lisandro itus with other circulatory complications (CMS/HCC) Start: 09-01-2024 End: 09-01-2024 ambulatory LASHAUN BRADLEY Not Available Start: 08-29-2024 End: 08-29-2024 Telephone encounter Lashaun Bradley DO Work Phone: [facility] 230 Start: 06-27-2024 End: 06-27-2024 Bamboo flowsheet [facility] PA Work Phone: [facility] Start: 06-27-2024 End: 06-27-2024 Bamboo flowsheet B[facility] PA Work Phone: [facility] Start: 06-27-2024 End: 06-27-2024 Office outpatient new 45 minutes [employer] PA Work Phone: [facility] Comment on above: Other seborrheic matthew matitis (Primary Dx); Acrochordon; Other specified erythematous conditions; Inflamed seborrheic keratosis Start: 06-27-2024 End: 06-27-2024 ambulatory BARI MONTEMAYOR Not Available Start: 06-16-2024 End: 06-16-2024 ambulatory NITISH AGRAWAL Not Available Start: 06-16-2024 End: 06-16-2024 Office outpatient visit 25 minutes Nitish Agrawal DO Work Phone: [facility] 230 Comment on above: Hypothyroidism (acqu [...] 25 minutes Martin Elias DO Work Phone: [facility] Comment on above: Arteriosclerotic car diovascular disease (ASCVD); History of coronary artery bypass graft; Multiple vessel coronary artery disease; Status post angioplasty; Hypertension, unspecified type; Mixed hyperlipidemia; Other specified diabetes mellitus with other specified complication, with long-term current use of insulin ([facility]); BMI 29.0-29.9,adult; Never smoked tobacco Start: 05-10-2023 End: 05-10-2023 ambulatory Barbara Ellis Other [employer] Other Start: 05-10-2023 Office outpatient vi sit 15 minutes Barbara Ellis [facility] Start: 03-19-2023 End: 03-20-[address] NITISH AGRAWAL Facility:H1 Start: 03-05-2023 Rx Renewal Nitish Agrawal Work Phone: [facility] 250 DO Work Phone: Start: 03-05-2023 End: 03-06-[address] NITISH AGRAWAL Facility:[facility]1 Start: 02-13-2023 End: 02-14-[address] NITISH AGRAWAL Facility:[facility]1 Start: 01-23-2023 Office outpatient vi sit 15 minutes Nitish Agrawal Work Phone: [facility] 250 DO Work Phone: Start: 01-23-[address] Nitish Agrawal Facility:[id number] Start: 11-28-2022 End: 11-29-[address] NITISH AGRAWAL Facility:H1 Start: 11-13-2022 End: 11-14-2022 ambulatory NISHA FARRAR Facility:[facility]1 Start: 10-24-2022 End: 10-25-2022 ambulatory NISHA FARRAR Facility:H1 Start: 07-18-2022 End: 07-19-2022 ambulatory NISHA FARRAR Facility:[facility]1 Start: 07-03-2022 End: 07-04-2022 ambulatory NISHA FARRAR Facility:H1 Start: 06-20-2022 End: 06-21-2022 ambulatory NISHA FARRAR Facility:H1 Start: 06-13-2022 Encounter for preprocedural laboratory examination NISHA FARRAR [facility] Start: 06-12-2022 End: 06-12-2022 ambulatory NISHA [...] sit 25 minutes Nitish Agrawal Work Phone: [facility] 250 DO Work Phone: Start: 05-01-[address] Helga Flores Facility: Start: 04-18-2022 End: 04-19-2022 ambulatory NISHA FARRAR Facility:[facility]1 Start: 04-14-2022 End: 04-15-2022 ambulatory NISHA FARRAR Facility:[facility]1 Start: 03-30-2022 End: 03-31-[address] NITISH AGRAWAL Facility:[facility]1 Start: 03-22-2022 End: 03-24-2022 Evaluation and management of inpatient SHAIKH Magui GOMEZ Facility:H1 Start: 03-22-2022 End: 03-23-[address] NITISH AGRAWAL Facility:[facility]1 Start: 03-14-[address] Nitish Agrawal Facility:[id number] Start: 03-14-2022 Patient encounter procedure Nitish Agrawal Work Phone: [facility] 250 DO Work Phone: Start: [facility] Provider: Margaux Castillo, Status: Pen, Time: 12:00 PM Nitish Agrawal Work Phone: [facility] 250 DO Work Phone: Start: 03-13-2022 Chart Update Nitish Agrawal Work Phone: [facility] 250 DO Work Phone: Start: 03-10-2022 Chart Update Nitish Agrawal Work Phone: [facility] 600 DO Work Phone: Start: 12-14-2021 Rx Renewal Nitish Agrawal Work Phone: [facility] 250 DO Work Phone: Start: 11-22-2021 Office outpatient vi sit 25 minutes Nitish Agrawal Work Phone: [facility] 250 DO Work Phone: Start: 11-09-2021 [facility], Provider: Martin Elias, Status: Pen, Time: 1:00 PM Nitish Agrawal Work Phone: -[facility] 250 DO Work Phone: Start: 11-08-2021 Chart Update Nitish Agrawal Work Phone: [facility] 250 DO Work Phone: Start: 10-18-2021 Telephone encounter Nitish luz Work Phone: [facility] 600 DO Work Phone: Start: 10-14-2021 Chart Update Nitish Agrawal Work Phone: [facility] 600 DO Work Phone: Start: 10-12-2021 Patient encounter procedure Nitish Agrawal Work Phone: [facility] [address] [place] Work Phone: Start: 10-10-2021 End: 10-10-2021 ambulatory Jaelyn Jonesault Other [facility] [email or web address] Other Start: 10-10-2021 Office outpatient vi sit 15 minutes Jaelyn Espinal [facility] Start: 09-28-2021 AUDIT Nitish Agrawal Work Phone: -[facility] [address] [place] Work Phone: Start: 09-27-2021 Office outpatient vi sit 25 minutes Nitish Agrawal Work Phone: -[facility] 250 DO Work Phone: Start: 04-11-2017 End: 04-12-2017 Ambulatory [id number] MAILE AGRAWAL Facility:[facility] Procedures Date Procedure Procedure Detail Performing Clinician [...] 12/07/2025 10:00 AM EST Office Visit [facility] [address] [place] [address] Joyce Loyd, LAZARO [address] [place] [address] [facility] 230 Start: 12-04-2025 Medicare Annual Wellness (AWV) Medicare Annual Wellness (AWV) [facility] Start: 12-01-2025 Lipid panel Lipid Panel [facility] Start: 12-01-2025 Thyroid stimulating hormone measurement TSH Level [facility] Start: 12-01-2025 Urine screening for protein Diabetes: Urine Protein Screening [facility] Start: 09-21-2025 End: 09-21-2025 Patient encounter procedure 09/21/2025 8:30 AM EST Office Visit [facility] [address] [place] [id number] Lashaun Bradley, DO [address] [place] [address] [facility] 230 Start: 08-04-2025 End: 08-04-2025 Patient encounter procedure 08/04/2025 11:10 AM EDT Office Visit [facility] [address] [place] [address] Martin Elias, DO [address] [place] [address] [facility] Start: 07-06-2025 Influenza vaccination Influenza Vaccine (#1) [facility] Start: 06-27-2025 Hemoglobin A1c measurement Diabetes: Hemoglobin A1C [facility] Start: 03-27-2025 Screening for malignant neoplasm of colon [facility] Start: 03-27-2025 End: 03-27-2025 Patient encounter procedure 03/27/2025 8:45 AM EDT Office Visit [facility] [address] [place] [id number] Lashaun Bradley, DO [address] [place] [address] [facility] 230 Start: 03-12-2025 End: 03-12-2025 Patient encounter procedure 03/12/2025 8:00 AM EDT Office Visit [facility] [address] [place] [phone] Latha Caicedo, PA [address] [place] [address] [facility] Start: 03-01-2025 Hemoglobin A1c measurement Diabetes: Hemoglobin A1C [facility] Start: 02-01-2025 COVID-19 Vaccine ( season) COVID-19 Vaccine ( season) [facility] Start: 01-29-2025 End: 01-29-2025 Patient encounter procedure 01/29/2025 8:40 AM EDT [facility] [address] [place] [id number] Latha Caicedo PA [address] [place] [address] Arrived [facility] 230 Comment on above: Arrived Start: 01-28-2025 End: 01-28-2026 Basic metabolic 2000 panel - Serum or Plasma Basic Metabolic Panel Lab Routine Arteriosclerotic cardiovascular disease (ASCVD) Expected: 01/28/2025 (Approximate), Expires: 01/28/2026 [facility] Work Phone: Comment on above: Expected: 01/28/2025 (Approximate), Expi res: 01/28/2026 Start: 01-28-2025 End: 01-28-2026 C reactive protein [Mass/volume] in Serum or Plasma by High sensitivity method C-Reactive Protein, High Sensitivity Lab Routine Arteriosclerotic cardiovascular disease (ASCVD) Expected: 01/28/2025 (Approximate), Expires: 01/28/2026 [facility] Work Phone: Comment on above: Expected: 01/28/2025 (Approximate), Expi res: 01/28/2026 Start: 01-28-2025 End: 01-28-2026 Holter monitor study Holter Or Event Outboard [employer] Cardiac Services Routine Angina pectoris Palpitations Tachycardia Expected: 01/28/2025, Expires: 01/28/2026 [facility] Service [facility] Work Phone: Comment on above: Expected: 01/28/2025, Expires: Start: 01-28-2025 End: 01-28-2026 Natriuretic peptide B [Mass/volume] in Blood B-Type Natriuretic Peptide Lab Routine Arteriosclerotic cardiovascular disease (ASCVD) ACC/AHA stage C congestive heart failure due to ischemic cardiomyopathy Expected: 01/28/2025 (Approximate), Expires: 01/28/2026 [facility] Work Phone: Comment on above: Expected: 01/28/2025 (Approximate), Expi res: 01/28/2026 Start: 01-28-2025 End: 01-28-2027 NM Heart Perfusion W stress and W radionuclide IV Nuclear Stress Test Cardiac Nuclear Medicine Routine 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 Status post angioplasty Angina pectoris Palpitations Tachycardia Expected: 01/28/2025 (Approximate), Expires: 01/28/2027 [facility] Work Phone: Comment on above: Expected: 01/28/2025 (Approximate), Expi res: 01/28/2027 Start: 01-28-2025 End: 01-28-2025 Patient encounter procedure 01/28/2025 9:50 AM EDT Office Visit [facility] [address] [place] [id number] Martin Elias, DO [address] [place] [address] [facility] Start: 12-04-2024 End: 12-04-2024 Patient encounter procedure 12/04/2024 11:20 AM EST Office Visit [facility] [address] [place] [phone] Nitish Agrawal DO [address] [place] [address] Arrived [facility] 230 Comment on above: Arrived Start: 12-02-2024 Hemoglobin A1c measurement Diabetes: Hemoglobin A1C [facility] Start: 12-01-2024 End: 12-01-2025 Prostate specific Ag [Mass/volume] in Serum or Plasma PSA Lab Routine Screening for prostate cancer Expected: 12/01/2024 (Approximate), Expires: 12/01/2025 [facility] Comment on above: Expected: 12/01/2024 (Approximate), Expi res: 12/01/2025 Start: 12-01-2024 End: 12-01-2024 Patient encounter procedure 12/01/2024 9:15 AM EST Office Visit [facility] [address] [place] [phone] Lashaun Bradley, DO [address] [place] [address] [facility] 230 Start: 09-02-2024 Hemoglobin A1c measurement Diabetes: Hemoglobin A1C [facility] Start: 09-01-2024 End: 09-01-2024 Patient encounter procedure 09/01/2024 9:15 AM EDT Office Visit [facility] [address] [place] [phone] Lashaun Bradley, DO [address] [place] [address] [facility] 230 Start: 08-09-2024 Urine screening for protein Diabetes: Urine Protein Screening [facility] Start: 07-06-2024 Influenza vaccination Influenza Vaccine (#1) [facility] Start: 06-27-2024 Glaucoma screening Diabetes: Retinopathy Screening [facility] Start: 06-27-2024 End: 06-27-2024 Patient encounter procedure 06/27/2024 8:50 AM EDT Office Visit [facility] [address] [place] [phone] Bari Chowdhury PA [address] [place] [address] Arrived [facility] Comment on above: Arrived Start: 01-29-2024 End: 01-28-2025 Alanine aminotransferase [Enzymatic activity/volume] in Serum or Plasma by With P-5'-P Alanine Aminotransferase Lab Routine 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 Multiple vessel coronary artery disease Hypertension, unspecified type Mixed hyperlipidemia Expected: 01/29/2024 (Approximate), Expires: 01/28/2025 [facility] Work Phone: Comment on above: Expected: 01/29/2024 (Approximate), Expi res: 01/28/2025 Start: 01-29-2024 End: 01-28-2025 Aspartate aminotransferase [Enzymatic activity/volume] in Serum or Plasma by With P-5'-P Aspartate Aminotransferase Lab Routine 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 Multiple vessel coronary artery disease Hypertension, unspecified type Mixed hyperlipidemia Expected: 01/29/2024 (Approximate), Expires: 01/28/2025 [facility] Work Phone: Comment on above: Expected: 01/29/2024 (Approximate), Expi res: 01/28/2025 Start: 01-29-2024 End: 01-28-2025 C reactive protein [Mass/volume] in Serum or Plasma by High sensitivity method C-Reactive Protein, High Sensitivity Lab Routine 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 Multiple vessel coronary artery disease Hypertension, unspecified type Mixed hyperlipidemia Expected: 01/29/2024 (Approximate), Expires: 01/28/2025 [facility] Work Phone: Comment on above: Expected: 01/29/2024 (Approximate), Expi res: 01/28/2025 Start: 01-29-2024 End: 01-28-2025 Lipid 1996 panel - Serum or Plasma Lipid Panel Lab Routine 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 Multiple vessel coronary artery disease Hypertension, unspecified type Mixed hyperlipidemia Expected: 01/29/2024 (Approximate), Expires: 01/28/2025 [facility] Work Phone: Comment on above: Expected: 01/29/2024 (Approximate), Expi res: 01/28/2025 Start: 01-24-2024 FUV, Provider: Martin Elias, Status: Pen, Time: 9:30 AM FUV, Provider: Martin Elias, Status: Fidencio, Time: 9:30 AM [facility] 250 DO Work Phone: Start: 01-23-2023 Medicare Annual Wellness (AWV) Medicare Annual Wellness (AWV) [facility] Start: 11-16-2022 FUV, Provider: Martin Elias, Status: Pen, Time: 10:20 AM FUV, Provider: Martin Elias, Status: Pen, Time: 10:20 AM [facility] 250 DO Work Phone: Start: 08-25-2022 Pneumococcal Vaccine: 65+ Years (2 - PCV) Pneumococcal Vaccine: 65+ Years (2 - PCV) [facility] Start: 08-25-2022 Pneumococcal Vaccine: 65+ Years (2 of 2 - PCV) Pneumococcal Vaccine: 65+ Years (2 of 2 - PCV) [facility] Start: 05-29-2022 FUV, Provider: Helga Flores, Status: Pen, Time: 10:15 AM FUV, Provider: Helga Flores, Status: Pen, Time: 10:15 AM [facility] 250 DO Work Phone: Start: 05-01-2022 FUV, Provider: Helga Flores, Status: Pen, Time: 9:30 AM FUV, Provider: Helga Flores, Status: Pen, Time: 9:30 AM [facility] 600 DO Work Phone: Start: 03-21-2022 FUV, Provider: Helga Flores, Status: Pen, Time: 9:15 AM FUV, Provider: Helga Flores, Status: Pen, Time: 9:15 AM [facility] 250 DO Work Phone: Start: 03-14-2022 SURGNONUH, Provider: Margaux Castillo, Status: Pen, Time: 12:00 PM [facility], Provider: Margaux Castillo, Status: Pen, Time: 12:00 PM [facility] 600 DO Work Phone: Start: 11-09-2021 SURGNONUH, Provider: Martin Elias, Status: Pen, Time: 1:00 PM [facility], Provider: Martin Elias, Status: Pen, Time: 1:00 PM [facility] 600 DO Work Phone: Start: 10-12-2021 STRESS NUC, Provider: [place] HHVI NUCLEAR 01,[id number], Status: Pen, Time: 7:30 AM STRESS NUC, Provider: [place] HHVI NUCLEAR 01,[id number], Status: Pen, Time: 7:30 AM [facility] 250 DO Work Phone: Start: 02-07-2006 Zoster Vaccines (1 of 2) Zoster Vaccines (1 of 2) [facility] Start: 02-07-1978 DTaP/Tdap/Td Vaccines (1 - Tdap) DTaP/Tdap/Td Vaccines (1 - Tdap) [facility] Start: 02-07-1975 Urine screening for protein Diabetes: Urine Protein Screening [facility] Start: 02-07-1974 Hepatitis C screening Hepatitis C Screening [facility] Start: 02-07-1966 Diabetic foot examination Diabetes: Foot Exam [facility] Start: 02-07-1966 Glaucoma screening Diabetes: Retinopathy Screening [facility] Start: 1956 Creatinine measurement Creatinine Level [facility] Start: 1956 Echocardiography Echocardiogram [facility] Start: 1956 Hemoglobin A1c measurement Diabetes: Hemoglobin A1C [facility] Start: 1956 Lipid panel Lipid Panel [facility] Start: 1956 Medicare Annual Wellness Visit Medicare Annual Wellness Visit (AWV) [facility] Start: 1956 Potassium measurement Potassium Level [facility] Start: 1956 Screening for malignant neoplasm of colon [facility] Start: 1956 Thyroid stimulating hormone measurement TSH Level [facility] CBC W Auto Different ial panel - Blood CBC and differential Lab Routine Preventative health care Ordered: 12/01/2024 [facility] [employer] Comment on above: Ordered: 12/01/2024 Comprehensive metabo lic 2000 panel - Serum or Plasma Comprehensive metabolic panel Lab Routine Preventative health care Ordered: 12/01/2024 [facility] [employer] Work Phone: Comment on above: Ordered: 12/01/2024 Lipid 1996 panel - S mariely or Plasma Lipid panel Lab Routine Preventative health care Ordered: 12/01/2024 [facility] Comment on above: Ordered: 12/01/2024 Microalbumin/Creatin ine panel in random Urine Microalbumin / creatinine urine ratio Lab Routine Type 2 diabetes mellitus with other circulatory complications (CMS/HCC) Ordered: 12/01/2024 [facility] Comment on above: Ordered: 12/01/2024 Thyrotropin [Units/volume] in Serum or Plasma TSH Lab Routine Preventative health care Ordered: 12/01/2024 [facility] Comment on above: Ordered: 12/01/2024 Immunizations Immunization Date Immunization Notes Care Provider Ele mcneal 12-04-2024 Pneumococcal Conjuga te PCV 20 Joyce Loyd CASE BRIEF[employer] Work Phone: [facility] 08-04-2024 influenza, high dose seasonal, preservative-free Lashaun Bradley DO Work Phone: [facility] 08-04-2024 influenza virus vaccine, unspecified formulation Generic Provider [facility] 08-21-2023 Influenza, Seasonal, Quadrivalent, Adjuvanted [facility] STEVEN Work Phone: [facility] 08-21-2023 influenza virus vaccine, unspecified formulation [facility] PA Work Phone: [facility] 08-09-2023 RSV, recombinant, protein subunit RSVpreF, adjuvant reconstitu, 120mcg/0.5mL, PF (Arexvy) [facility] PA Work Phone: [facility] 08-02-2022 Fluzone High-Dose Quadrivalent 0.7 ML Intramuscular Suspension Prefilled Syringe Nitish Agrawal Work Phone: [facility] 250 DO Work Phone: 08-02-2022 Pfizer COVID-19 Vac Bivalent 30 MCG/0.3ML Intramuscular Suspension Nitish Agrawal Work Phone: [facility] 09-02-2021 Pfizer-BioNTech COVID-19 Vacc 30 MCG/0.3ML Intramuscular Suspension Nitish Agrawal Work Phone: [facility] 08-25-2021 Fluad Quadrivalent 0 .5 ML Intramuscular Prefilled Syringe Nitish Agrawal Work Phone: [facility] 250 DO Work Phone: 08-25-2021 pneumococcal polysaccharide vaccine, 23 valent Nitish Agrawal Work Phone: [facility] 02-06-2021 Pfizer-BioNTech COVID-19 Vacc 30 MCG/0.3ML Intramuscular Suspension Nitish Agrawal Work Phone: [facility] 01-16-2021 Pfizer-BioNTech COVID-19 Vacc 30 MCG/0.3ML Intramuscular Suspension Nitish Agrawal Work Phone: [facility] 01-15-2021 COVID-19 mRNA, Comirnaty (Pfizer) Nisha Farrar DPM Work Phone: [facility] 11-22-2020 zoster vaccine recombinant Nitish Agrawal Work Phone: [facility] DO Work Phone: 11-22-2020 zoster vaccine, unspecified formulation Martin Elias DO Work Phone: [facility] Work Phone: 09-09-2020 influenza, high dose seasonal, preservative-free Nitish Agrawal Work Phone: [facility] 250 DO Work Phone: 09-05-2020 influenza virus vaccine, unspecified formulation Nitish Agrawal Work Phone: [facility] DO Work Phone: 09-05-2020 influenza, seasonal, injectable Barikvng HARRIS Work Phone: [facility] 08-29-2020 influenza, injectabl e, quadrivalent, preservative free Nitish Agrawal Work Phone: [facility] 250 DO Work Phone: 08-29-2020 zoster vaccine recombinant Nitish Agrawal Work Phone: [facility] 250 DO Work Phone: 08-29-2020 zoster vaccine, unspecified formulation Martin Elias DO Work Phone: [facility] Work Phone: 09-07-2019 influenza virus vaccine, unspecified formulation Nitish Agrawal Work Phone: [facility] 250 DO Work Phone: 08-26-2019 Influenza, injectabl e, Madin Caitie Canine Kidney, preservative free, quadrivalent Nitish Agrawal Work Phone: [facility] 250 DO Work Phone: 11-05-2017 pneumococcal polysaccharide vaccine, 23 valent Nitish Agrawal Work Phone: [facility] 09-18-2017 influenza, injectabl e, quadrivalent, preservative free Nitish Agrawal Work Phone: [facility] 250 DO Work Phone: 08-06-2017 influenza, high dose seasonal, preservative-free Nitish Agrawal Work Phone: [facility] 250 DO Work Phone: 08-05-2016 influenza virus vaccine, unspecified formulation Nitish Agrawal Work Phone: [facility] 250 DO Work Phone: 07-24-2011 influenza, seasonal, injectable, preservative free Nitish Agrawal Work Phone: [facility] 250 DO Work Phone: 11-05-2010 influenza virus vaccine, unspecified formulation Nitish Agrawal Work Phone: [facility] 250 DO Work Phone: 08-05-2010 pneumococcal polysaccharide vaccine, 23 valent Nitish Agrawal Work Phone: [facility] 250 DO Work Phone: 08-13-2008 influenza, seasonal, injectable, preservative free Nitish Gordoner Work Phone: [facility] 250 DO Work Phone: influenza virus vaccine, unspecified formulation Nitish Gordoner Work Phone: [place] [address] DO Work Phone: Comment on above: Sep 2010 Payers Date Payer Category Payer Self-pay 2021 Medicare [id number] 2021 Private Health Insurance [employer] [id number] 2021 Unknown 2017 Unknown [id number] 1959 Medicare [id number] 1959 Unknown [id number] 2..840.1.118334.19 1956 Unknown [id number] 2.840.1.038390.3.579.2. 356 1956 Unknown [id number] 2.16.840.1.549044.3.579.2. 356 1956 Unknown [id number] 2.16840.1.560523.3.579.2. 356 1956 Unknown [id number] 2.16.840.1.945229.3.579.2. 593 1956 Unknown [id number] 2.16.840.1.833391.3.579.2. 593 1956 Unknown [id number] 2.16.840.1.191045.3.579.2. 593 1956 Unknown [id number] 2.16.840.1.369185.3.579.2. 593 1956 Unknown [id number] 2.16.840.1.718756.3.579.2. 593 1956 Unknown [id number] 2.16.840.1.665869.3.579.2. 593 1956 Unknown [id number] 2.16.840.1.185511.3.579.2. 593 1956 Unknown [id number] 2.16.840.1.034823.3.579.2. 593 1956 Unknown [id number] 2.16.840.1.389597.3.579.2. 593 1956 Unknown [id number] 2.16.840.1.639885.3.579.2. 593 1956 Unknown [id number] 2.16.840.1.423528.3.579.2. 593 1956 Unknown [id number] 2.16.840.1.989831.3.579.2. 593 1956 Unknown [id number] 2.16.840.1.562268.3.579.2. 593 1956 Unknown [id number] 2.16.840.1.957598.3.579.2. 593 1956 Unknown [id number] 2.16.840.1.813280.3.579.2. 593 1956 Unknown [id number] 2.16.840.1.841574.3.579.2. 593 1956 Unknown [id number] 2.16.840.1.479234.3.579.2. 593 1956 Unknown [id number] 2.16.840.1.701328.3.579.2. 593 1956 Unknown [id number] 2.16.840.1.916472.3.579.2. 593 1956 Unknown [id number] 2.16.840.1.866860.3.579.2. 593 1956 Unknown [id number] 2.16.840.1.011646.3.579.2. 1246 1956 Unknown [id number] 2.16.840.1.253304.3.579.2. 1245 1956 Unknown [id number] 2.16.840.1.410521.3.579.2. 1245 1956 Unknown [id number] 2.16.840.1.783110.3.579.2. 1245 1956 Unknown [id number] 2.16.840.1.292534.3.579.2. 1245 1956 Unknown [id number] 2.16.840.1.299932.3.579.2. 1258 1956 Unknown [id number] 2.16.840.1.242661.3.579.2. 1258 1956 Unknown [id number] 2.16.840.1.047263.3.579.2. 1258 1956 Unknown [id number] 2.16.840.1.016589.3.579.2. 1258 1956 Unknown [id number] 2.16.840.1.451853.3.579.2. 1258 1956 Unknown [id number] 2.16.840.1.804706.3.579.2. 1258 1956 Unknown [id number] 2.16.840.1.820137.3.579.2. 1259 1956 Unknown [id number] 2.16.840.1.740365.3.579.2. 1259 1956 Unknown [id number] 2.16.840.1.648077.3.579.2. 1259 1956 Unknown [id number] 2.16.840.1.629005.3.579.2. 1259 1956 Unknown [id number] 2.16.840.1.226570.3.579.2. 1244 1956 Unknown [id number] 2.16.840.1.493968.3.579.2. 1244 Unknown [id number] 2.16.840.1.706569.3.579.2. 531 Social History Date Type Detail Facility Start: 01-29-2024 End: 03-27-2025 Caffeine use Caffeine use -[facility] 250 DO Work Phone: Comment on above: occassional; Start: 01-29-2024 End: 03-27-2025 Sex Assigned At [employer] [facility] [email or web address] Other Start: 01-29-2024 End: 06-16-2024 Tobacco smoking status NHIS Never smoked tobacco [facility] Start: 01-29-2024 End: 06-16-2024 Tobacco use and exposure Smokeless tobacco non-user [facility] Work Phone: Start: 01-29-2024 End: 03-27-2025 Alcohol intake Lifetime non-drinker (finding) [facility] Work Phone: Start: 1955 Sex Assigned At Not on file [facility] Work Phone: Start: 01-19-2024 End: 01-30-2025 Exposure to SARS-CoV-2 (event) Not sure [facility] How often to you hav e a drink containing alcohol? Never [facility] How many standard drinks containing alcohol do you have on a typical day? Patient does not drink [facility] Start: 1955 Sex assigned at Male [facility] Start: 09-23-2024 Gender identity Identifies as male gender (finding) [facility] Work Phone: Start: 03-10-2022 Tobacco smoking status NHIS Ex-smoker (finding) [facility] Sex Male (finding) [facility] NEGATED: Highlighted rowStart: NINF History of tobacco use Passive smoker [facility] Medical Equipment Procedure Code Equipment Code Equipment Origin al Text Equipment Identifier Dates Fsbs daily [id number] Start: 03-03-2024 Fsbs daily [id number] Start: 03-03-2024 Drug-eluting coronary artery stent, afl-gshtuwzfllicq-sk lymer-coated ()[id number] [id number] FDA Start: 11-09-2021 Drug-eluting coronary artery stent, tpl-btaiokvclkngv-xz lymer-coated ()[id number] [id number] FDA Start: 11-09-2021 Femoral artery closure plug/patch, synthetic polymer ()[id number] [id number] FDA Start: 11-09-2021 Clinical Notes 10-08-2017 to 01-29-2025 Latha Caicedo, PA - 01/29/2025 8:40 AM Nydia Elias, DO - 01/28/2025 9:50 AM EDTPchristiano Agrawal, DO - 12/04/2024 11:20 AM Trini [...] around large groups. Pt was told by Meat Scrubber he wants to have a stress test [...] questions or concerns. documented in this encounter [facility] 01-28-2025 History of Presen t illness [...] Scribe Attestation By signing my name below, IMandi LPN, Scribe attest that this documentation has [...] discussion and plan. documented in this encounter [facility] Work Phone: 01-28-2025 Instructions Mandi Oakley [...] instructions on exercise. documented in this encounter [facility] Work Phone: 12-04-2024 History of Presen [...] (H) 0.70 - 1.30 mg/dL [facility] EGFR-AF OMANI >60 >=60 mL/min/1.73m 2 [facility] EGFR-NON AF OMANI 51 (L) >=60 mL/min/1.73m 2 BUN CREATININE [...] the patient today. documented in this encounter [facility] 12-01-2024 History of Presen t illness [...] 2 diabetes mellitus with other circulatory complications ([facility]/HCC) Anemia, unspecified Atherosclerotic heart disease of [place] coronary artery without angina pectoris (CMS/HCC) Gastro-esophageal reflux disease without esophagitis Osteoarthritis of knee, unspecified Stage 3a chronic kidney disease (CKD) (CMS/HCC) Hypertension (CMS/HCC) Hyperlipidemia (CMS/HCC) History of coronary artery bypass graft Type 2 diabetes mellitus with stage 3a chronic kidney disease, without long-term current use of insulin (HCC) ([facility]) Social History Tobacco Use Smoking status: Never [...] without long-term current use of insulin (HCC) ([facility]/HCC) Other Visit Diagnoses Preventative health care Relevant [...] FOR 90 DAYS BLOOD GLUCOSE MONITORING SUPPL ([employer] VERIO FLEX SYSTEM) W/DEVICE KIT CARVEDILOL (COREG) [...] by mouth in the morning. GLUCOSE BLOOD ([employer] VERIO) TEST STRIP Fsbs daily ISOSORBIDE MONONITRATE [...] (five) minutes if needed for chest pain. [employer] DELICA LANCETS 33G MISC Fsbs daily SEMAGLUTIDE, 2 MG/DOSE, (OZEMPIC, 2 MG/DOSE,) 8 MG/3ML SOLUTION PEN-INJECTOR Inject 2 mg under the skin 1 (one) time per week Modified Medications No medications on file Discontinued Medications No medications on file I have reviewed and reconciled the history and medication list with the patient today. documented in this encounter [facility] 09-01-2024 History of Presen t illness Narrative Associated Problem(s): Type 2 diabetes mellitus with other circulatory complications ([facility]) During the appointment today all pertinent labs, [...] 2 diabetes mellitus with other circulatory complications ([facility]) Anemia, unspecified Atherosclerotic heart disease of [place]-bilox[place] coronary artery without angina pectoris ([facility]) Gastro-esophageal reflux disease without esophagitis Osteoarthritis of knee, unspecified Stage 3a chronic kidney disease (CKD) ([facility]) Hypertension ([facility]) Hyperlipidemia ([facility]) History of coronary artery bypass graft Type 2 diabetes mellitus with stage 3a chronic kidney disease, without long-term current use of insulin ([facility]) ([facility]) Social History Tobacco Use Smoking status: Never [...] FOR 90 DAYS BLOOD GLUCOSE MONITORING SUPPL ([employer] VERIO FLEX SYSTEM) W/DEVICE KIT CARVEDILOL (COREG) [...] the patient today. documented in this encounter [facility] 08-29-2024 Telephone encounter Note LV appointment reminder [facility] 08-29-2024 Miscellaneous Notes LV appointment reminder documented in this encounter [facility] 06-27-2024 History of Presen t illness [...] (2) Chest - Medial (Center), Left Axilla [place] and brown stuck on verrucous scaly papule [...] limited to risks of scarring, darker or gold charmer pigmentary changes, recurrence, incomplete removal and infection. [...] Visit: 1 year documented in this encounter [facility] 06-16-2024 History of Presen t illness [...] FOR 90 DAYS Blood Glucose Monitoring Suppl ([employer] Verio Flex System) w/Device kit No dose, [...] follow-ups on file. documented in this encounter [facility] 01-29-2024 History of Presen t illness Narrative [...] complication, with long-term current use of insulin ([facility]) 8. BMI 29.0-29.9,adult 9. Never smoked tobacco Scribe Attestation By signing my name below, Sheri Recio LPN, Scribe attest that this documentation [...] discussion and plan. documented in this encounter [facility] Work Phone: 01-29-2024 Instructions Sheri Newman [...] instructions on exercise. documented in this encounter [facility] Work Phone: 05-10-2023 Evaluation note Encounter [...] the ER for worsening symptoms or concerns. [employer] Other 01-24-2023 NotePROCEDURE: XR FOOT RT MIN [...] Electronically authenticated by: HUSAM GAMEZ Date: 2022-11-28 15:28[facility]08-08-2022 NotePROCEDURE: XR FOOT RT MIN 3 [...] authenticated by: ROSA MARIA MATOS Date: 2022-06-12 21:05[facility]08-02-2022 NotePROCEDURE: XR FOOT RT MIN 3 [...] Electronically authenticated by: HUSAM GAMEZ Date: 2022-06-06 19:33[facility]05-19-2022 NotePROCEDURE: XR FOOT RT MIN 3 [...] Electronically authenticated by: HUSAM GAMEZ Date: 2022-03-23 11:[address] [place], [place] [address]12-06-2021 Evaluation note* Encounter Date Diagnosis Assessment Notes Treatment Notes Treatment Clinical Notes Oct, Sore throat (ICD-10 - J02.9) symptoms appear viral in nature. Reassurance given. . Saltwater gargles may help with pain and disrupts bacteria and viral infections. Continue tylenol/ibu for general discomfort. Encourage fluids. Symptoms should improve within the next 4-7 days. [employer] Other 12-04-2017 History general Narrative - Reported* Type Description Date Medical History Diabetes mellitus Medical History Hyperlipidemia Medical History Hypothyroidism Surgical History CABG 1992 Surgical History cardiac stent 2002 Surgical History right knee arthroplasty 10/08/20 Surgical History left knee arthroplasty 03/2016 Surgical History Foot Surgery Hospitalization History see above surgical histo ry [facility] Other Evaluation note* Diagnosis Arteriosclerotic cardiovascular disease (ASCVD) Unspecified cardiovascular disease History of coronary artery bypass graft Postsurgical aortocoronary bypass status Multiple vessel coronary artery disease Status post angioplasty Postsurgical percutaneous transluminal coronary angioplasty status Hypertension, unspecified type Mixed hyperlipidemia Other specified diabetes mellitus with other specified complication, with long- term current use of insulin ([facility]) BMI 29.0-29.9,adult Never smoked tobacco documented in this encounter [facility] Work Phone: Evaluation note* Diagnosis Type [...] mellitus with hyperosmolarity without coma, unspecified whether jail insulin use (CMS/HCC) Type 2 diabetes mellitus with stage 3a chronic kidney disease, without long-term current use of insulin (HCC) (CMS/HCC) Type 2 diabetes mellitus with other circulatory complications (CMS/HCC) Type 2 diabetes mellitus with other circulatory complications (CMS/HCC) documented in this encounter [facility] HealthcareEvaluation note* Diagnosis Type 2 [...] mellitus with hyperosmolarity without coma, unspecified whether buttermaker insulin use (CMS/HCC) Type 2 diabetes mellitus [...] circulatory complications (CMS/HCC) documented in this encounter [facility] HealthcareEvaluation note* Diagnosis Other seborrheic dermatitis- Primary Acrochordon Unspecified hypertrophic and atrophic condition of skin Other specified erythematous conditions Inflamed seborrheic keratosis documented in this encounter [facility] HealthcareEvaluation note* Diagnosis Type 2 [...] mellitus with hyperosmolarity without coma, unspecified whether jail insulin use (CMS/HCC) Type 2 diabetes mellitus [...] neoplasm of prostate documented in this encounter [facility] HealthcareEvaluation note* Diagnosis Type 2 [...] mellitus with hyperosmolarity without coma, unspecified whether jail insulin use (CMS/HCC) Type 2 diabetes mellitus [...] hyperlipidemia type (CMS/HCC) documented in this encounter [facility] HealthcareEvaluation note* Diagnosis Arteriosclerotic cardiovascular [...] to ischemic cardiomyopathy documented in this encounter [facility] Work Phone: Evaluation note* Diagnosis Type [...] mellitus with hyperosmolarity without coma, unspecified whether buttermaker insulin use (CMS/HCC) Type 2 diabetes mellitus [...] Anxiety state, unspecified documented in this encounter [facility] HealthcareEvaluation note* Diagnosis Type 2 diabetes mellitus with other circulatory complications- Primary Screening for prostate cancer Special screening for malignant neoplasm of prostate Type 2 diabetes mellitus with stage 3a chronic kidney disease, without long-term current use of insulin (HCC) (CMS/HCC)- Primary Type 2 diabetes mellitus with other circulatory complications Type 2 diabetes mellitus with hyperosmolarity without coma, unspecified whether jail insulin use (CMS/HCC) Type 2 diabetes mellitus [...] for malignant neoplasm of prostate Hypothyroidism (acquired) (CMS/HCC)- Primary Unspecified hypothyroidism documented in this encounter [facility]* Diagnosis Arteriosclerotic cardiovascular disease (ASCVD) Unspecified cardiovascular disease History of coronary artery bypass graft Postsurgical aortocoronary bypass status Status post angioplasty Postsurgical percutaneous transluminal coronary angioplasty status Angina pectoris Other and unspecified angina pectoris Palpitations Tachycardia Unspecified tachycardia documented in this encounter [facility] Work Phone: Evaluation noteNo assessment information available [facility] Work Phone: Evaluation note* Diagnosis Type 2 diabetes mellitus with other circulatory complications (HCC)- Primary Screening for prostate cancer Special screening for malignant neoplasm of prostate Type 2 diabetes mellitus with stage 3a chronic kidney disease, without long-term current use of insulin (HCC)- Primary Type 2 diabetes mellitus with other circulatory complications (HCC) Type 2 diabetes mellitus with hyperosmolarity without coma, unspecified whether buttermaker insulin use (HCC) Type 2 diabetes mellitus [...] was done remotely back in 1992 at [facility]. He had a WALL graft to [...] completed. No change made to medications today. [facility] [employer] DO Work Phone: History of Present illness Narrative* Mr. Ford is a 66-year-old male who is seen back today for follow-up on his history of coronary disease. He had remote bypass surgery that was done back in 1992 at [facility].He had a WALL graft to the [...] This will be arranged for him through [facility]. He is to return in 6 months for follow-up. [facility] [employer] DO Work Phone: History of Present illness Narrative* Mr. Ford is a 67-year-old male who is seen back today for follow-up on his history of coronary disease. He had remote bypass surgery that was done back in [address] [facility]. 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 This was redilated and stented. He had a recent episode at cardiac rehab in [place] and because of this was seen in [...] He is to return in [address] [facility] [employer] DO Work Phone: History of Present illness [...] 90 tablet 3 Blood Glucose Monitoring Suppl ([employer] Verio Flex System) w/Device kit carvedilol (Coreg) [...] Do you have a medical power of patent prosecution attorney?: Yes Who is your medical power of patent prosecution attorney?: alexis Ford Objective : BP 120/78 [...] Advance Care Planning Has CARINA and KAREEN Romero was seen today for medicare annual wellness visit subsequent. Diagnoses and all orders for this visit: Routine general medical examination at health care facility (Primary) Encounter for vaccination - Pneumococcal conjugate vaccine 20-valent IM Hypertension, unspecified type ([facility]/HCC) Stage 3a chronic kidney disease (CKD) ([facility]) Type 2 diabetes mellitus with stage 3a chronic kidney disease, without long-term current use of insulin (HCC) ([facility]) Hyperlipidemia, unspecified hyperlipidemia type ([facility]) Patient here for annual Medicare Wellness visit. [...] Up In Cardiology Martin Elias DO [address] [facility] [address], [address] [place] [id number] Martin Elias, [address] [facility] [address], [address] [place] [address] Referral ID Status Reason Start Date Expiration Date V isits Requested Visits Authorized [id number] Authorized 01/29/2024 01/28/2025 1 1 [facility] Work Phone: Revnng for referral (narrative)No reason for referral [facility] Work [facility]: Reason for visit Narrative* Cardiac Stress Testing (Routine) - Authorized Specialty Diagnoses / Procedures Referred By Contac t Referred To Contact Radiology Diagnoses 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 Status post angioplasty Angina pectoris Palpitations Tachycardia Procedures Nuclear Stress Test CHG MYOCARDIAL SPECT MULTIPLE STUDIES Martin Elias DO [address] [facility] [address], [address] [address] Phone: tel: fax: Referral ID Status Reason Start Date Expiration Date V isits Requested Visits Authorized [id number] Authorized 01/28/2025 01/28/2026 5 5 [facility] Work Phone: reason for visit Narrative* Cardiac Stress Testing (Routine) - Authorized Specialty Diagnoses / Procedures Referred By Contac t Referred To Contact Radiology Diagnoses 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 Status post angioplasty Angina pectoris Palpitations Tachycardia Procedures Nuclear Stress Test CHG MYOCARDIAL SPECT MULTIPLE STUDIES Martin Elias, [address] [facility] [address], [address] [place] [address] Phone: tel: fax: Referral ID Status Reason Start Date Expiration Date V isits Requested Visits Authorized [id number] Authorized 01/28/2025 01/28/2026 5 5 [facility] Work Phone: Summary Purpose Family History [...] history of lung cancer Unknown Advance Directives No Advanced Directives Records Found Advance Directive Response Recorded Date/ Time Advance [...] section and content) DATE CREATED AUTHOR 05/01/2018 [facility] DATE CREATED AUTHOR AUTHOR'S ORGANIZ ATION 01/25/2022 [facility] dical Specialist DATE CREATED AUTHOR AUTHOR'S ORGANIZ ATION 03/03/2022 [facility] DATE CREATED AUTHOR AUTHOR'S ORGANIZ ATION 01/24/2023 [employer] DATE CREATED AUTHOR AUTHOR'S ORGANIZ ATION 02/20/[address] [facility] ical Center DATE CREATED AUTHOR AUTHOR'S ORGANIZ ATION 03/21/2023 [facility] DATE CREATED AUTHOR AUTHOR'S ORGANIZ ATION 03/18/2025 [facility] DATE CREATED AUTHOR AUTHOR'S ORGANIZ ATION 04/02/2025 [facility] dical Specialists [facility] DATE CREATED AUTHOR AUTHOR'S ORGANIZ ATION 05/10/2025 [facility] DATE CREATED AUTHOR AUTHOR'S ORGANIZ ATION 05/28/2025 [facility] ysician Group REASON FOR VISIT (unrecogniz ed section and content) Reason Comments Annual Exam Reason Comments Diabetes Reason Comments Rash Suspicious Skin Lesion Reason Comments Medicare Annual Wellness Visit Abe costa Reason Comments Annual Exam 1 year, arterioscler otic cardiovascular disease Specialty Diagnoses / Procedures Referred By Vaughn costa Referred To Contact Cardiology Diagnoses Arteriosclerotic cardiovascular disease (ASCVD) Procedures Follow Up In Cardiology Martin Elias, DO [address] [facility] [address], [address] [address] Phone: tel: fax: Martin Elias, DO [facility] [facility] [address] [place] [address] Phone: tel: fax: Referral ID Status Reason Start Date Expiration Date V isits Requested Visits Authorized [id number] Authorized 01/29/2024 01/28/2025 1 1 Reason Comments Anxiety Pt presents to discu anxiety. Pt notes periods of chest tightness when going to work on things, noticing a difference in personality when around large groups. Pt was told by Meat Scrubber he wants to have a stress test and he started to get all tense about this. Reason Comments Med Refill Care Teams (unrecognized sec tion and content) Assisted Living Associate Relationship Specialty Start Date End Date Nitish Agrawal DO [address] [place] [phone] PCP - General 09/18/19 Assisted Living Associate Relationship Specialty Start Date End Date Lashaun Bradley DO [address] [place] [address] PCP - ACO Reach 03/29/23 Nitish Agrawal DO [address] [place] [address] PCP - General Family Medicine 03/13/23 Assisted Living Associate Relationship Specialty Start Date End Date Lashaun Bradley DO [address] [place] [address] PCP - ACO Reach 03/29/23 Nitish Agrawal, DO [address] [place] [address] PCP - General Family Medicine 03/13/23 Assisted Living Associate Relationship Specialty Start Date End Date Lashaun Bradley, DO [address] [place] [address] PCP - ACO Reach 03/29/23 Nitish Agrawal, DO [address] [place] [address] PCP - General Family Medicine 03/13/23 Assisted Living Associate Relationship Specialty Start Date End Date Lashaun Bradley, DO [address] [place] [address] PCP - ACO Reach 03/29/23 Nitish Agrawal, DO [address] [place] [address] PCP - General Family Medicine 03/13/23 Assisted Living Associate Relationship Specialty Start Date End Date Lashaun Bradley, DO [address] [place] [address] PCP - ACO Reach 03/29/23 Nitish Agrawal, DO [address] [place] [address] PCP - General Family Medicine 03/13/23 Assisted Living Associate Relationship Specialty Start Date End Date Lashaun Bradley, DO [address] [place] [address] PCP - ACO Reach 03/29/23 Nitish Agrawal, DO [address] [place] [address] PCP - General Family Medicine 03/13/23 Assisted Living Associate Relationship Specialty Start Date End Date Lashaun Bradley, DO [address] [place] [address] PCP - ACO Reach 03/29/23 Nitish Agrawal, DO [address] [place] [address] PCP - General Family Medicine 03/13/23 Elliot Elias MD [address] [facility] [address] [place] [address] Referring Physician Cardiology 12/04/24 Nisha Farrar MD [address] [place] [address] [place] [address] Referring Physician Podiatry 12/04/24 Assisted Living Associate Relationship Specialty Start Date End Date Lashaun Bradley, DO [address] [place] [address] PCP - ACO Reach 03/29/23 Nitish Agrawal, DO [address] [place] [address] PCP - General Family Medicine 03/13/23 Assisted Living Associate Relationship Specialty Start Date End Date Nitish Agrawal, [facility] [address] [place] [phone] PCP - General 09/18/19 Assisted Living Associate Relationship Specialty Start Date End Date Lashaun Bradley, DO [address] [place] [address] PCP - ACO Reach 03/29/23 Nitish Agrawal, DO [address] [place] [address] PCP - General Family Medicine 03/13/23 Elliot Elias MD [address], [address] [place] [address] Referring Physician Cardiology 12/04/24 Nisha Farrar MD [facility] [place] [address] Referring Physician Podiatry 12/04/24 Assisted Living Associate Relationship Specialty Start Date End Date Lashaun Bradley, DO [address] [place] [address] PCP - ACO Reach 03/29/23 Nitish Agrawal, DO [address] [place] [address] PCP - General Family Medicine 03/13/23 Elliot Elias MD [facility] [address] [place] [address] Referring Physician Cardiology 12/04/24 Nisha Farrar MD [address] [place], [place] [address] [place] [address] Referring Physician Podiatry 12/04/24 Assisted Living Associate Relationship Specialty Start Date End Date Lashaun Bradley DO [address] [place] [address] PCP - ACO Reach 03/29/23 Nitish Agrawal DO [address] [place] [address] PCP - General Family Medicine 03/13/23 Elliot Elias MD [address] [facility] [address], [address] [place] [address] Referring Physician Cardiology 12/04/24 Nisha Farrar MD [facility] [place] [address] Referring Physician Podiatry 12/04/24 Assisted Living Associate Relationship Specialty Start Date End Date Lashaun Bradley, DO [address] [place] [address] PCP - ACO Reach 03/29/23 Nitish Agrawal, [address] [place] [address] PCP - General Family Medicine 03/13/23 Elliot Elias MD [address] [facility] [address], [address] [place] [address] Referring Physician Cardiology 12/04/24 Nisha Farrar MD [facility] [place] [address] Referring Physician Podiatry 12/04/24 Assisted Living Associate Relationship Specialty Start Date End Date Nitish Agrawal DO [address] [address] PCP - General 09/18/19 Assisted Living Associate Relationship Specialty Start Date End Date Nitish Agrawal, DO [address] [place] [address] PCP - General 09/18/19 Assisted Living Associate Relationship Specialty Start Date End Date Nitish Agrawal, DO [address] [place] [address] PCP - General 09/18/19 Assisted Living Associate Relationship Specialty Start Date End Date Nitish Agrawal DO [address] [place] [address] PCP - General 09/18/19 Assisted Living Associate Relationship Specialty Start Date End Date Lasahun Bradley DO [address] [place] [address] PCP - ACO Reach 03/29/23 Nitish Agrawal DO [address] [place] [address] PCP - General Family Medicine 03/13/23 Elliot Elias MD [address] [place] [address] [address], [address] [place] [address] Referring Physician Cardiology 12/04/24 Nisha Farrar MD [address] [place] [address] [place] [address] Referring Physician Podiatry 12/04/24 Assisted Living Associate Relationship Specialty Start Date End Date Lashaun Bradley DO [address] [place] [address] PCP - ACO Reach 03/29/23 Nitish Agrawal, [address] [place] [address] PCP - General Family Medicine 03/13/23 Elliot Elias MD [address], [address] [place] [address] Referring Physician Cardiology 12/04/24 Nisha Farrar MD [facility] [place] [address] Referring Physician Podiatry 12/04/24 Team Status: Inactive Member Role Status Dates Nisha Farrar DPM MS Attending Provider Active Start: May 19, 2025 End: May 19, 2025 Assisted Living Associate Relationship Specialty Start Date End Date Lashaun Bradley DO [address] [place] [address] PCP - ACO Reach 03/29/23 Nitish Agrawal, [address] [place] [address] PCP - General Family Medicine 03/13/23 Elliot Elias MD [address] [place] [address] Referring Physician Cardiology 12/04/24 Nisha Farrar MD [address] [place], [place] [address] [address] Referring Physician Podiatry 12/04/24 Goals (unrecognized section [...] BE BASED ON THE PRIMARY CLINICAL RECORDS. [facility]. provides no warranty or guarantee of the accuracy or completeness of information in this document.
== END 2025-06-24 10:01 | disposition home or self-care (01) ==
LOC: WC 07-07 15:43
PROVIDERS: PCP Family Medicine; Visit Provider Podiatrist Foot & Ankle Surgery
DX: E11.621 Type 2 diabetes mellitus with foot ulcer (principal); L97.522 Non-pressure chronic ulcer of other part of left foot with fat layer exposed
CPT/HCPCS: G0463

== ENCOUNTER 2025-07-14 09:25 | Outpatient (OUT) | payer MEDICARE, OTHER, SELFPAY ==
--- OUTSIDE RECORDS SUMMARY | 2025-07-14 09:28 | XMS_ITS | Encounter Summary ---
Author Organization [facility] Address [address] [place] [address] Phone Care Team Providers Care Supervising Broker Name Role Phone Nitish Agrawal DO Primary Care Provider [phone] Encounter Details Date Type Department Care Team (Late st Contact Info) Description 06/09/2022 Orders Only [facility] [address] [place] [address] Conversion, Onbase Social History Tobacco Use Types [...] Description 08/04/2025 11:10 AM EDT Office Visit [facility] [address] [facility] [address] [place] [address] Martin Elias DO [address], [address] [place] [address] Scheduled Orders Name Type Priority Associated Diagnoses Orde r Schedule OUTSIDE LAB SCAN Lab Ordered: 06/09/2022 documented as of this encounter Visit Diagnoses Not on filedocumented in this encounter Care Teams Supervising Broker Relationship Specialty Start Date End Date Nitish Agrawal DO [address] [place] [address] PCP - General 09/18/19 documented as of this encounter
--- OUTSIDE RECORDS SUMMARY | 2025-07-14 09:28 | XMS_ITS | Encounter Summary ---
Author Organization [facility] Address [address] [place] [address] Care Team Providers Care Medical Consultant Name Role Phone Lashaun [place] DO Unavailable [phone] Nitish Agrawal DO Primary Care Provider [phone] Elliot Elias MD Unavailable [phone] Ranjan Ivory MD Unavailable [phone] Encounter Details Date Type Department Care Team (Late st Contact Info) Description 08/06/2023 Abstract [facility] [place] [facility] [address] [facility] [address] [place] [phone] Lashaun Madison, DO [address] [facility] 230 [place] [address] Social History Tobacco Use Types Packs/Day Years [...] on one occasion? Never 08/06/2023 1:02 PM Zoei Bryant LPN * Over the past 2 [...] Care Team (Late st Contact Info) Description 07/16/2025 1:20 PM EDT Office Visit [facility] [address] [place] [address] Nitish Agrawal, DO [address] [place] [address] 09/21/2025 8:30 AM EST Office Visit [facility] [address] [place] [address] Lashaun Madison, DO [address] [place] [address] 12/07/2025 10:00 AM EST Office Visit [facility] [address] [place] [address] Joyce Loyd, DOUGH MIXING MACHINE OPERATOR [address] [place] [address] documented as of this encounter Visit Diagnoses Not on filedocumented in this encounter Care Teams Medical Consultant Relationship Specialty Start Date End Date Lashaun [place] DO [address] [place] [address] PCP - ACO Reach 03/29/23 Nitish Agrawal, DO [address] [facility] [address] [place] [address] PCP - General Family Medicine 03/13/23 Elliot Elias MD [address] [facility] 2, [address] [place] [address] Referring Physician Cardiology 12/04/24 Ranjan Ivory MD [address] [place] [address] [place] [address] Referring Physician Podiatry 12/04/24 documented as of this encounter
--- OUTSIDE RECORDS SUMMARY | 2025-07-14 09:28 | XMS_ITS | Encounter Summary ---
Author Organization [facility] Address [address] [place] [address] Care Team Providers Care Mark Up Designer Name Role Phone Lashaun [place] Judie DO Unavailable [phone] Nitish Agrawal DO Primary Care Provider [phone] Elliot Elias MD Unavailable [phone] Ranjan Ivory MD Unavailable [phone] Encounter Details Date Type Department Care Team (Late st Contact Info) Description 02/19/2024 Abstract [facility] [place] [facility] [address] [facility] [address] [place] [address] Nitish Agrawal, [address] [facility] [address] [place] [address] Social History Tobacco Use Types Packs/Day Years [...] Description 07/16/2025 1:20 PM EDT Office Visit [facility] [address] [place] [address] Nitish Agrawal, DO [address] [place] [address] 09/21/2025 8:30 AM EST Office [facility] [place] [facility] [address] [place] [address] Lashaun Madison, [address] [place] [address] 12/07/2025 10:00 AM EST Office Visit [facility] [address] [place] [address] Joyce Loyd, FAMILY PHYSICIAN [address] [place] [address] documented as of this encounter Visit Diagnoses Not on filedocumented in this encounter Care Teams Mark Up Designer Relationship Specialty Start Date End Date Lashaun [place] DO [address] [place] [address] PCP - ACO Reach 03/29/23 Nitish Agrawal DO [address] [place] [address] PCP - General Family Medicine 03/13/23 Elliot Elias MD [address] [facility] [address], [address] [place] [address] Referring Physician Cardiology 12/04/24 Ranjan Ivory MD [address] [place] [address] [place] [address] Referring Physician Podiatry 12/04/24 documented as of this encounter
--- OUTSIDE RECORDS SUMMARY | 2025-07-14 09:28 | XMS_ITS | Encounter Summary ---
Author Organization [facility] Address [address] [place] [address] Care Team Providers Care Bead Trimmer Name Role Phone Lashaun Madison Judie DO Unavailable [phone] Nitish Agrawal DO Primary Care Provider [phone] Elliot Elias MD Unavailable [phone] Ranjan Ivory MD Unavailable [phone] Encounter Details Date Type Department Care Team (Late st Contact Info) Description 05/19/2025 Abstract [facility] [place] [facility] [address] [facility] [address] [place] [address] Nitish Agrawal, [address] [facility] [address] [place] [address] Social History Tobacco Use Types Packs/Day Years [...] Description 07/16/2025 1:20 PM EDT Office Visit [facility] [address] [place] [address] Nitish Agrawal, DO [address] [place] [address] 09/21/2025 8:30 AM EST Office Visit [facility] [place] [facility] [address] [place] [address] Lashaun Madison, DO [address] [place] [address] 12/07/2025 10:00 AM EST Office Visit [facility] [address] [place] [address] Joyce Loyd, LIQUOR STORE MANAGER [address] [place] [address] documented as of this encounter Visit Diagnoses Not on filedocumented in this encounter Additional Health Concerns Assessment Noted Time PHQ-9 Depression Total Score: 0 12/04/19 11:00 AM EST documented as of this encounter Care Teams Bead Trimmer Relationship Specialty Start Date End Date Lashaun Madison DO [address] [place] [address] PCP - ACO Reach 03/29/23 Nitish Agrawal DO [address] [place] [address] PCP - General Family Medicine 03/13/23 Elliot Elias MD [address] [facility] [address], [address] [place] [address] Referring Physician Cardiology 12/04/24 Ranjan Ivory MD [address] [facility] [address] LUCAS [place], [facility]11 Referring Physician Podiatry 12/04/24 documented as of this encounter
--- OUTSIDE RECORDS SUMMARY | 2025-07-14 09:28 | XMS_ITS | Encounter Summary ---
Author Organization [facility] Address [address] [place] [address] Care Team Providers Care Ceramic Research Engineer Name Role Phone Lashaun Madison DO Unavailable [phone] Nitish Agrawal DO Primary Care Provider [phone] Elliot Elias MD Unavailable [phone] Ranjan Ivory MD Unavailable [phone] Encounter Details Date Type Department Care Team ([facility] Contact Info) Description 02/19/2024 Abstract [facility] [place] [facility] [address] [facility] [address] [place] [address] Lashaun Madison, DO [address] [facility] 230 [place] [address] Social History Tobacco Use Types Packs/Day Years [...] Team ([facility] Contact Info) Description 07/16/2025 1:20 PM EDT Office Visit [facility] [address] [place] [address] Nitish Agrawal, DO [address] [place] [address] 09/21/2025 8:30 AM EST Office Visit [facility] [address] [place] [address] Lashaun Madison, [address] [place] [address] 12/07/2025 10:00 AM EST Office Visit [facility] [address] [place] [address] Joyce Loyd, METAL POURER [address] [place] [address] documented as of this encounter Visit Diagnoses Not on filedocumented in this encounter Care Teams Ceramic Research Engineer Relationship Specialty Start Date End Date Lashaun Madison DO [address] [place] [address] PCP - ACO Reach 03/29/23 Nitish Agrawal DO [address] [place] [address] PCP - General Family Medicine 03/13/23 Elliot [facility]as MD [facility] [address] [place] [address] Referring Physician Cardiology 12/04/24 Ranjan Ivory MD [address] [place] [address] [place] [address] Referring Physician Podiatry 12/04/24 documented as of this encounter
--- OUTSIDE RECORDS SUMMARY | 2025-07-14 09:28 | XMS_ITS | Encounter Summary ---
Author Organization [facility] Address [address] [place] [address] Care Team Providers Care Insemination Worker Name Role Phone Lashaun Madison Unavailable [phone] Nitish Agrawal DO Primary Care Provider +[phone] Elliot Elias MD Unavailable [phone] Ranjan Ivory MD Unavailable [phone] Encounter Details Date Type Department Care Team (Late st Contact Info) Description 07/30/2023 Abstract [facility] [address] [place] [phone] Kiel Lozano, DPJudie [address] [place], [place] [address] Social History Tobacco Use Types Packs/Day Years [...] 1:20 PM EDT Office Visit [facility] [address] [facility] [address] [facility] 230 [place] [address] Nitish Agrawal DO [address] [facility] 230 [place] [address] 09/21/2025 8:30 AM EST Office Visit [facility] [place] [facility] [address] [place] [address] Lashaun Madison DO [address] [place] [address] 12/07/2025 10:00 AM EST Office Visit [facility] [place] [facility] [address] [place] [address] Joyce Loyd, ACOUSTIC SENSOR OPERATOR [address] [place] [address] documented as of this encounter Visit Diagnoses Not on filedocumented in this encounter Care Teams Insemination Worker Relationship Specialty Start Date End Date Lashaun Madison DO [address] [place] [address] PCP - ACO Reach 03/29/23 Nitish Agrawal DO [address] [place] [address] PCP - General Family Medicine 03/13/23 Elliot Elias MD 703 [facility], [address] [place] [address] Referring Physician Cardiology 12/04/24 Ranjan Ivory MD [address] [place] [address] [place] [address] Referring Physician Podiatry 12/04/24 documented as of this encounter
--- OUTSIDE RECORDS SUMMARY | 2025-07-14 09:28 | XMS_ITS | Clinical Summary ---
Author [facility] Address [id number] [address] [place] [address] Care Team Providers Care Payroll Examiner Name Role Phone Brittany York Primary Care Provider [phone] Social History Tobacco Use Types Packs/Day Years [...] Medical Devices Not on file Care Teams Payroll Examiner Relationship Specialty Start Date End Date Brittany York APRN-CNP [address] [place] [address] PCP - General Family Medicine 01/12/21
--- OUTSIDE RECORDS SUMMARY | 2025-07-14 09:28 | XMS_ITS | Encounter Summary ---
Author Organization [facility] Address [address] [place] [address] Care Team Providers Care Channel Lip Stiffener Insoles Name Role Phone Lashaun Madison Judie DO Unavailable [phone] Nitish Agrawal DO Primary Care Provider [phone] Elliot Elias MD Unavailable [phone] Ranjan Ivory MD Unavailable [phone] Encounter Details Date Type Department Care Team ([facility] Contact Info) Description 10/15/2023 Abstract [facility] [address] [place] [address] Kiel Lozano, DPJudie [address] [place], [place] [address] Social History Tobacco Use Types Packs/Day Years [...] Upcoming Encounters Date Type Department Care Team ([facility] Contact Info) Description 07/16/2025 1:20 PM EDT Office Visit [facility] [address] [place] [address] Nitish Agrawal, DO [address] [place] [address] 09/21/2025 8:30 AM EST Office Visit [facility] [address] [place] [address] Lashaun Madison, [address] [place] [address] 12/07/2025 10:00 AM EST Office Visit [facility] [address] [place] [address] Joyce Loyd, EDITOR IN CHIEF NEWSPAPER [address] [place] [address] documented as of this encounter Visit Diagnoses Not on filedocumented in this encounter Care Teams Channel Lip Stiffener Insoles Relationship Specialty Start Date End Date Lashaun Madison DO [address] [place] [address] PCP - ACO Reach 03/29/23 Nitish Agrawal DO [address] [place] [address] PCP - General Family Medicine 03/13/23 Elliot Elias MD [facility] [facility] [address] [place] [address] Referring Physician Cardiology 12/04/24 Ranjan Ivory MD [address] [place] [address] [place] [address] Referring Physician Podiatry 12/04/24 documented as of this encounter
--- OUTSIDE RECORDS SUMMARY | 2025-07-14 09:28 | XMS_ITS | Encounter Summary ---
Author Organization [facility] Address [address] [place] [address] Care Team Providers Care Chick Sexer Name Role Phone Lashaun Madison Judie DO Unavailable [phone] Nitish Agrawal DO Primary Care Provider [phone] Elliot Elias MD Unavailable [phone] Ranjan Ivory MD Unavailable [phone] Encounter Details Date Type Department Care Team (Late st Contact Info) Description 05/15/2025 Abstract [facility] [place] [facility] [address] [facility] [address] [place] [address] Nitish Agrawal, [address] [facility] [address] [place] [address] Social History Tobacco Use Types Packs/Day Years [...] 07/16/2025 1:20 PM EDT Office Visit [facility] [address] [place] [address] Nitish Agrawal, DO [address] [place] [address] 09/21/2025 8:30 AM EST Office Visit [facility] [place] [facility] [address] [place] [address] Lashaun Madison, DO [address] [place] [address] 12/07/2025 10:00 AM EST Office Visit [facility] [address] [place] [address] Joyce Loyd, MODELING INSTRUCTOR [address] [place] [address] documented as of this encounter Visit Diagnoses Not on filedocumented in this encounter Additional Health Concerns Assessment Noted Time PHQ-9 Depression Total Score: 0 12/04/19 11:00 AM EST documented as of this encounter Care Teams Chick Sexer Relationship Specialty Start Date End Date Lashaun Madison DO [address] [place] [address] PCP - ACO Reach 03/29/23 Nitish Agrawal DO [address] [place] [address] PCP - General Family Medicine 03/13/23 Elliot Elias MD 703 [facility] [address] 2, [address] [place] [address] Referring Physician Cardiology 12/04/24 Ranjan Ivory MD [address] [facility] [address] LUCAS [place], [facility]11 Referring Physician Podiatry 12/04/24 documented as of this encounter
--- OUTSIDE RECORDS SUMMARY | 2025-07-14 09:28 | XMS_ITS | Encounter Summary ---
Author Organization [facility] Address [address] [place] [address] Phone Care Team Providers Care Assistant Track Coach Name Role Phone Nitish Agrawal DO Primary Care Provider [phone] Encounter Details Date Type Department Care Team (Late st Contact Info) Description 11/07/2021 Orders Only [facility] [address] [place] [address] Conversion, Onbase Social History Tobacco Use Types [...] 11:10 AM EDT Office Visit [facility] 703 [facility] [address] [place] [address] Martin Elias DO [address], [address] [place] [address] Scheduled Orders Name Type Priority Associated Diagnoses Orde r Schedule OUTSIDE LAB SCAN Lab Ordered: 11/07/2021 documented as of this encounter Visit Diagnoses Not on filedocumented in this encounter Care Teams Assistant Track Coach Relationship Specialty Start Date End Date Nitish Agrawal DO [address] [place] [address] PCP - General 09/18/19 documented as of this encounter
--- OUTSIDE RECORDS SUMMARY | 2025-07-14 09:28 | XMS_ITS | Encounter Summary ---
Author Organization [facility] Address [address] [place] [address] Care Team Providers Care Belly Dancer Name Role Phone Lashaun Madison DO Unavailable [phone] Nitish Agrawal DO Primary Care Provider [phone] Elliot Elias MD Unavailable [phone] Ranjan Ivory MD Unavailable [phone] Encounter Details Date Type Department Care Team (Late st Contact Info) Description 04/09/2023 [facility] [address] [place] [address] Nitish Agrawal DO [address] [place], [place] [phone] Social History Tobacco Use Types Packs/Day Years [...] Description 07/16/2025 1:20 PM EDT [facility] [address] [place] [address] Nitish Agrawal DO [address] [place] [address] 09/21/2025 8:30 AM EST [facility] [facility] [address] [place] [address] Lashaun Madison, DO [address] [place] [address] 12/07/2025 10:00 AM EST Office Visit [facility] [place] [facility] [address] [place] [address] Joyce Loyd, RN GYNECOLOGY [address] [place] [address] documented as of this encounter Procedures Procedure Name Priority Date/Time Associated Diagnosis Comments XR FOOT 3+ VIEWS RIGHT Routine 04/09/2023 3:27 PM EDT documented in this encounter Results * XR FOOT 3+ VIEWS RIGHT (04/09/2023 3:27 PM EDT) Anatomical Region Laterality Modality Radiographic Kelly ging us Nitish Agrawal DO IMG XR PROCEDURES Final Result documented in this encounter Visit Diagnoses Not on filedocumented in this encounter Care Teams Belly Dancer Relationship Specialty Start Date End Date Lashaun Madison, DO [address] [place] [address] PCP - ACO Reach 03/29/23 Nitish Agrawal DO [address] [place] [address] PCP - General Family Medicine 03/13/23 Elliot Elias MD 703 [facility] [address] 2, [address] [place] [address] Referring Physician Cardiology 12/04/24 Ranjan Ivory MD [address] [place] [address] [place] [address] Referring Physician Podiatry 12/04/24 documented as of this encounter
--- OUTSIDE RECORDS SUMMARY | 2025-07-14 09:28 | XMS_ITS | Encounter Summary ---
Author Organization [facility] Address [address] [place] [address] Phone Care Team Providers Care Night Manager Name Role Phone Nitish Agrawal DO Primary Care Provider [phone] Encounter Details Date Type Department Care Team (Late st Contact Info) Description 03/07/2021 Orders Only [facility] [address] [place] [address] Conversion, Onbase Social History Tobacco Use Types [...] Description 08/04/2025 11:10 AM EDT Office Visit [facility] 703 [facility] [address] [place] [address] Martin Elias DO [address], [address] [place] [address] Scheduled Orders Name Type Priority Associated Diagnoses Orde r Schedule OUTSIDE LAB SCAN Lab Ordered: 03/07/2021 documented as of this encounter Visit Diagnoses Not on filedocumented in this encounter Care Teams Night Manager Relationship Specialty Start Date End Date Nitish Agrawal DO [address] [place] [address] PCP - General 09/18/19 documented as of this encounter
--- OUTSIDE RECORDS SUMMARY | 2025-07-14 09:28 | XMS_ITS | Encounter Summary ---
Author Organization [facility] Address [address] [place] [address] Care Team Providers Care Loft Worker Pile Driving Name Role Phone Lashaun Madison Unavailable [phone] Nitish Agrawal DO Primary Care Provider [phone] Elliot Elias MD Unavailable [phone] Ranjan Ivory MD Unavailable [phone] Encounter Details Date Type Department Care Team (Late st Contact Info) Description 06/30/2023 Abstract [facility] [address] [place] [address] Kiel Lozano, DPJudie [address] [place], [place] [phone] Social History Tobacco Use Types Packs/Day Years [...] Description 07/16/2025 1:20 PM EDT Office Visit [facility] [address] [facility] [address] [place] [address] Nitish Agrawal DO [address] [facility] [address] [place] [address] 09/21/2025 8:30 AM EST Office Visit [facility] [place] [facility] [address] [place] [address] Lashaun Madison DO [address] [place] [address] 12/07/2025 10:00 AM EST Office Visit [facility] [address] [place] [address] Joyce Loyd, LAZARO [address] [place] [address] documented as of this encounter Visit Diagnoses Not on filedocumented in this encounter Care Teams Loft Worker Pile Driving Relationship Specialty Start Date End Date Lashaun Madison DO [address] [place] [address] PCP - ACO Reach 03/29/23 Nitish Agrawal DO [address] [place] [address] PCP - General Family Medicine 03/13/23 Elliot Elias MD 703 [facility] 2, [address] [place] [address] Referring Physician Cardiology 12/04/24 Ranjan Ivory MD [address] [place] [address] [place] [address] Referring Physician Podiatry 12/04/24 documented as of this encounter
--- OUTSIDE RECORDS SUMMARY | 2025-07-14 09:28 | XMS_ITS | Encounter Summary ---
Author Organization [facility] Address [address] [place] [address] Care Team Providers Care Pyrotechnist Name Role Phone Lashaun Madison Judie DO Unavailable [phone] Nitish Agrawal DO Primary Care Provider [phone] Elliot Elias MD Unavailable [phone] Ranjan Ivory MD Unavailable [phone] Encounter Details Date Type Department Care Team (Late st Contact Info) Description 08/09/2023 Orders Only [facility] [address] [facility] [address] [place] [address] A, Unknown Practice [address] [phone] Social History Tobacco Use Types Packs/Day Years [...] Description 07/16/2025 1:20 PM EDT [facility] [address] [place] [address] Nitish Agrawal, [address] [place] [address] 09/21/2025 8:30 AM EST [facility] [address] [place] [address] Lashaun Madison, [address] [place], [place] [address] 12/07/2025 10:00 AM EST [facility] [address] [place] [address] Joyce Loyd, LAZARO [address] [place] [address] documented as of this encounter Procedures Procedure [...] on filedocumented in this encounter Care Teams Pyrotechnist Relationship Specialty Start Date End Date Lashaun Madison DO [address] [place] [address] PCP - ACO Reach 03/29/23 Nitish Agrawal DO [address] [place] [address] PCP - General Family Medicine 03/13/23 Elliot Elias MD 703 [facility] 2, [facility] 250 [place] [address] Referring Physician Cardiology 12/04/24 Ranjan Ivory MD [address] [place] [address] [place] [address] Referring Physician Podiatry 12/04/24 documented as of this encounter
--- OUTSIDE RECORDS SUMMARY | 2025-07-14 09:28 | XMS_ITS | Encounter Summary ---
Author Organization [facility] Address [address] [place] [address] Care Team Providers Care Ic Engineer Name Role Phone Lashaun Madison Unavailable [phone] Nitish Agrawal DO Primary Care Provider +[phone] Elliot Elias MD Unavailable [phone] Ranjan Ivory MD Unavailable [phone] Encounter Details Date Type Department Care Team (Late st Contact Info) Description 07/19/2023 Abstract [facility] [address] [place] [address] Kiel Lozano, DPJudie [address] [place], [place] [address] Social History Tobacco Use Types Packs/Day Years [...] [facility] [address] [facility] 230 [place] [address] Nitish Agrawal DO [address] [facility] 230 [place] [address] 09/21/2025 8:30 AM EST Office Visit [facility] [place] [facility] [address] [place] [address] Lashaun Madison DO [address] [place] [address] 12/07/2025 10:00 AM EST Office Visit [facility] [place] [facility] [address] [place] [address] Joyce Loyd, SUBSTITUTE CROSSING GUARD [address] [place] [address] documented as of this encounter Visit Diagnoses Not on filedocumented in this encounter Care Teams Ic Engineer Relationship Specialty Start Date End Date Lashaun Madison DO [address] [place] [address] PCP - ACO Reach 03/29/23 Nitish Agrawal DO [address] [place] [address] PCP - General Family Medicine 03/13/23 Elliot Elias MD 703 [facility] 2, [address] [place] [address] Referring Physician Cardiology 12/04/24 Ranjan Ivory MD [address] [place] [address] [place] [address] Referring Physician Podiatry 12/04/24 documented as of this encounter
--- OUTSIDE RECORDS SUMMARY | 2025-07-14 09:28 | XMS_ITS | Encounter Summary ---
Author Organization [facility] Address [address] [place] [address] Care Team Providers Care Jazz Musician Name Role Phone Lashaun Madison Judie DO Unavailable [phone] Nitish Agrawal DO Primary Care Provider [phone] Elliot Elias MD Unavailable [phone] Ranjan Ivory MD Unavailable [phone] Encounter Details Date Type Department Care Team (Late st Contact Info) Description 05/15/2025 Abstract [facility] [place] [facility] 230 [address] [facility] [address] [place] [address] Nitish Agrawal, [address] [facility] [address] [place] [address] Social History Tobacco Use Types Packs/Day Years [...] 07/16/2025 1:20 PM EDT Office Visit [facility] [address] [place] [address] Nitish Agrawal, DO [address] [place] [address] 09/21/2025 8:30 AM EST Office Visit [facility] [place] [address] [place] [address] Lashaun Madison, DO [address] [place] [address] 12/07/2025 10:00 AM EST Office Visit [facility] [address] [place] [address] Joyce Loyd, SNACK BAR COOK [address] [place] [address] documented as of this encounter Visit Diagnoses Not on filedocumented in this encounter Additional Health Concerns Assessment Noted Time PHQ-9 Depression Total Score: 0 12/04/19 11:00 AM EST documented as of this encounter Care Teams Jazz Musician Relationship Specialty Start Date End Date Lashaun Madison DO [address] [place] [address] PCP - ACO Reach 03/29/23 Nitish Agrawal DO [address] [place] [address] PCP - General Family Medicine 03/13/23 Elliot Elias MD 703 [facility] [address] 2, [address] [place] [address] Referring Physician Cardiology 12/04/24 Ranjan Ivory MD [address] [facility] [address] LUCAS [place], [facility] Referring Physician Podiatry 12/04/24 documented as of this encounter
--- OUTSIDE RECORDS SUMMARY | 2025-07-14 09:28 | XMS_ITS | Encounter Summary ---
Author Organization [facility] Address [address] [place] [address] Care Team Providers Care Fur Tailor Name Role Phone Lashaun Madison DO Unavailable [phone] Nitish Agrawal DO Primary Care Provider [phone] Elliot Elias MD Unavailable [phone] Ranjan Ivory MD Unavailable [phone] Reason for Visit * Reason Comments Med Refill Encounter Details Date Type Department Care Team (Late st Contact Info) Description 03/04/2024 Refill [facility] [address] [facility] [address] [place] [phone] Lashaun Madison, DO [address] [facility] [address] [place] [address] Type 2 diabetes mellitus with other circulatory [...] 07/16/2025 1:20 PM EDT Office Visit [facility] [address] [place] [address] Nitish Agrawal, [address] [place] [address] 09/21/2025 8:30 AM EST Office Visit [facility] [address] [place] [address] Lashaun Madison DO [address] [place] [address] 12/07/2025 10:00 AM EST Office Visit [facility] [address] [place] [address] Joyce Loyd NP [address] [place] [address] documented as of this encounter Visit Diagnoses Diagnosis Type 2 diabetes mellitus with other circulatory complications (HCC) documented in this encounter Care Teams Fur Tailor Relationship Specialty Start Date End Date Lashaun Madison DO [address] [place] [address] PCP - ACO Reach 03/29/23 Nitish Agrawal DO [address] [place] [address] PCP - General Family Medicine 03/13/23 Elliot Elias MD 703 [facility] 2, [facility] [address] [place] [address] Referring Physician Cardiology 12/04/24 Ranjan Ivory MD [address] [place] [address] [facility] [place] [address] Referring Physician Podiatry 12/04/24 documented as of this encounter
--- OUTSIDE RECORDS SUMMARY | 2025-07-14 09:28 | XMS_ITS | Clinical Summary ---
Author Organization [facility] Address [address] [facility] [place] [address] Care Team Providers Care Panel Edge Painter Name Role Phone Lashaun Madison Judie RICH Unavailable [phone] Nitish Martin DO Primary Care Provider [phone] Elliot Elias MD Unavailable [phone] Nisha Ivory MD Unavailable [phone] Allergies No known active allergies Medications isosorbide [...] chest pain. Active Blood Glucose Monitoring Suppl (ClctinToD square nv Verio Flex System) w/Device kit Active glucose [...] TO DRY AREAS ON FEET 5 Active hydrOXYzine HCl (Atarax) 25 MG tabletIndications:A nxiety Take 2 tablets (50 mg) by mouth 2 (two) times a day as needed for anxiety 40 tablet 5 Active metFORMIN XR (Glucophage-XR) 500 MG 24 hr tabletIndications:T ype 2 diabetes mellitus with other circulatory complications (HCC) TAKE 1 TABLET BY MOUTH TWICE A DAY 180 tablet 1 5 Active sertraline (Zoloft) 50 MG tabletIndications:A nxiety TAKE 1 TABLET BY MOUTH EVERY DAY 90 tablet 1 5 Active dapagliflozin (Farxiga) 5 MGIndications:Type 2 diabetes mellitus with other circulatory complications (HCC) TAKE 1 TABLET BY MOUTH EVERY DAY 90 tablet 3 5 Active Active Problems Problem [...] unspecified 03/29/2016 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 [...] Care Team Description 06/05/2025 Results Follow-Up [facility] [address] [place] [phone] Robin Caicedo PA Cologkeagan colon cancer screening 05/30/2025 Refill [facility] [address] [place] [address] Lashaun Madison DO Type 2 diabetes mellitus with other circulatory complications (HCC) 05/24/2025 Refill [facility] [address] [place] [address] Robin Caicedo PA Anxiety 05/20/2025 Clinisync Result Encounter [facility]OM[facility] External Department Unsolicited Provider, Generic External Data 05/19/2025 Abstract [facility] [address] [place] [phone] Nitish Martin DO 05/18/2025 Clinisync Result Encounter [facility]OMS External Department Unsolicited Provider, Generic External Data 05/15/2025 Clinisync Result Encounter NOMS External Department Unsolicited Provider, Generic External Data 05/15/2025 Abstract [facility] [address] [place] [address] Nitish Martin, DO 05/15/[address] [place] [facility] [address] [place] [address] Nitish Martin, DO 05/15/2025 Clinisync Result Encounter [...] Description 07/16/2025 1:20 PM EDT Office Visit [facility] [address] [place] [address] Nitish Martin, [address] [place] [address] 09/21/2025 8:30 AM EST Office Visit [facility] [address] [place] [address] Lashaun Madison M, DO [address] [place] [address] 12/07/2025 10:00 AM EST Office Visit [facility] [address] [place] [address] Joyce Loyd, HOUSECLEANER [address] [place] [address] Health Maintenance Due Date Last Done Comments CT Colonography 1955 Colonoscopy 1955 FIT 1955 FOBT 1955 Sigmoidoscopy 1955 Diabetes: Retinopathy Screening 06/27/2024 Diabetes: Hemoglobin A1C 06/27/2025 025, 12/01/2024, 09/01/2024, Additional history exists Influenza Vaccine (#1) 2025 , 08/21/2023, 08/02/2022, [...] STL-IMP Negative Negative 06/05/2025 5:35 AM EDT [employer] (CLIA #:[id number]) Comment: The Cologuard Plus (TM) test was performed on this specimen. NEGATIVE TEST RESULT. A negative (normal) Cologuard Plus result means the patient has a vmvf-iprb-wecuqos chance of having colorectal cancer (CRC) or [...] a 91% specificity (Cologuard Plus Clinician Brochure. [employer]. [place], [place] Visit [email or web address]/[email or web address] for more test information, references, warnings, and precautions. Stool specimen (specimen) 05/28/2025 7:00 AM EDT 05/29/2025 11:06 AM EDT us Joyce Loyd NP LAB MOLECULAR DIAGNOSTICS ORDERA BLES Final Result [employer] (CLIA #:[id number]) [address] [address], [employer] (CLIA #:[id number]) [address] [address] * XR FOOT LT MIN 3V (05/20/2025 8:21 AM EDT) Only the most recent of2 resultswithin the time period is included. Anatomical Region Laterality Modality Other 05/20/2025 8:21 AM EDT Narrative 05/20/2025 8:23 AM EDT [address] [address] XRay Report Signed Patient: JANICE PANDYA Jr. MR#: [id number] : 1955 Acct:[id number] Age/Sex: 70 / M ADM Date: 05/19/25 Loc: SURGOUT Attending Dr: Nisha Ivory D.P.M. Ordering Physician: Nisha Ivory D.P.M. Date of Service: 05/19/25 Procedure(s): XR foot LT min 3V Accession Number(s): [id number] cc: NITISH MARTIN ; Nisha Ivory D.P.M. [place] [id number] Patient Name: JANICE PANDYA MRN: [id number] date: 1955 Sex: M Assigned Patient Location: [facility] Current Patient Location: Accession/Order Number: [id number] Exam Date: 05/20/2025 08:15 Report Date: 05/20/2025 [...] Owens M.D. 05/20/2025 8:21 AM Dictation Location: [place] [address] Electronically authenticated by: [id number] Y Date: 05/20/2025 08:21 Dictated By: Melani Owens M.D. Signed By: 05/20/25822 DD/ 0 TD/TT: Right Of Way Maintenance Supervisor: Procedure Note Radiology, Radiologist, MD - 05/20/2025 [place] [address] XRay Report Signed Patient: JANICE PANDYA Jr.MR#: [id number] : 1955cct:[id number] Age/Sex: 70 / MADM Date: 05/19/25 Loc: SURGOUT Attending Dr: Nisha Ivory D.P.M. Ordering Physician: Nisha Ivory D.P.M. Date of Service: 05/19/25 Procedure(s): XR foot LT min 3V Accession Number(s): [id number] cc: NITISH MARTIN ; Nisha Ivory D.P.M. The [place] [id number] Patient Name: JANICE PANDYA MRN: [id number] date: 1955 Sex: M Assigned Patient Location: [facility] Current Patient Location: Accession/Order Number: [id number] Exam Date: 05/20/2025 08:15 Report Date: 05/20/2025 [...] Owens M.D. 05/20/2025 8:21 AM Dictation Location: [place] [address] Electronically authenticated by: [id number] Y Date: 508:21 Dictated By: Melani Owens M.D. Signed By:05/20/25 0823 DD/ 0821 TD/TT: Right Of Way Maintenance Supervisor: Generic External Data Provider [facility] IMAGING Final Result * SEGMENTAL BLOOD PRESSURE (05/18/2025 8:40 AM EDT) Anatomical Region Laterality Modality Radiographic Kelly ging 05/18/2025 8:40 AM EDT Narrative 05/19/2025 12:57 [place] [address] Cardiology Report Signed Patient: JANICE PANDYA Jr. MR#: [id number] : 1955 Acct:[id number] Age/Sex: 70 / M ADM Date: 05/18/25 Loc: CARD Attending Dr: Gisela HARRIS Ordering Physician: Gisela Crandall Date of Service: 05/18/25 Procedure(s): CA segmental UE or LE ANTHONY Accession Number(s): [id number] cc: NITISH MARTIN ; Gisela Crandall [facility] Test Date: 2025-05-18 Pat Name: JANICE PANDYA Department: Room: - Gender: Male Naphthalene Operator: : 1955 Requested By: Gisela Crandall Order Number: [id number] Reading MD: DEBRA FAITH Interpretive Statements Normal [...] 05/19/25 1257 05/19/25 1257 DD/ 0840 TD/TT: Right Of Way Maintenance Supervisor: Procedure Note Radiology, Radiologist, MD - 05/19/2025 [place] [address] Cardiology Report Signed Patient: JANICE PANDYA Jr.MR#: [id number] : 6Acct:[id number] Age/Sex: 70 / MADM Date: 05/18/25 Loc: CARD Attending Dr: Gisela HARRIS Ordering Physician: Gisela Crandall Date of Service: 05/18/25 Procedure(s): CA segmental UE or LE ANTHONY Accession Number(s): [id number] cc: NITISH MARTIN [facility] Test Date: 2025-05-18 Pat Name: JANICE PANDYA Department: Room: - Gender: Male Naphthalene Operator: : 1955 Requested By: Gisela Crandall Order Number: [id number] Reading MD: DEBRA FAITH Interpretive Statements Normal [...] By:05/19/25 1257 05/19/25 1257 DD/ 0840 TD/TT: Right Of Way Maintenance Supervisor: us Generic External Data Provider IMG XR PROCEDURES Final Result * XR CHEST 2V (05/15/2025 10:49 AM EDT) Anatomical Region Laterality Modality Other 05/15/2025 10:4 9 AM EDT Narrative 05/15/2025 10:51 [place] [address] XRay Report Signed Patient: JANICE PANDYA Jr. MR#: [id number] : 1955 Acct:[id number] Age/Sex: 70 / M ADM Date: 05/15/25 Loc: [facility] Attending Dr: Nisha Ivory D.P.M. Ordering Physician: Nisha Ivory D.P.M. Date of Service: 05/15/25 Procedure(s): XR chest 2V Accession Number(s): [id number] cc: NITISH MARTIN ; Nisha Ivory D.P.M. [facility] [place] [id number] Patient Name: JANICE PANDYA MRN: [id number] date: 1955 Sex: M Assigned Patient Location: [facility] Current Patient Location: [facility] Accession/Order Number: [id number] Exam Date: 05/15/2025 10:46 Report Date: 05/15/2025 [...] Owens M.D. 05/15/2025 10:49 AM Dictation Location: [place] [address] Electronically authenticated by: [id number] Y Date: 05/15/2025 10:49 Dictated By: Melani Owens M.D. Signed By: 05/15/25 1051 DD/ 1049 TD/TT: Right Of Way Maintenance Supervisor: Procedure Note Radiology, Radiologist, MD - 05/15/2025 [place] [address] XRay Report Signed Patient: JANICE PANDYA Jr.MR#: [id number] : 1955cct:[id number] Age/Sex: 70 / MADM Date: 05/15/25 Loc: [facility] Attending Dr: Nisha Ivory D.P.M. Ordering Physician: Nisha Ivory D.P.M. Date of Service: 05/15/25 Procedure(s): XR chest 2V Accession Number(s): [id number] cc: NITISH MARTIN ; Nisha Ivory D.P.M. [facility] [place] [id number] Patient Name: JANICE PANDYA MRN: [id number] date: 1955 Sex: M Assigned Patient Location: [facility] Current Patient Location: [facility] Accession/Order Number: [id number] Exam Date: 05/15/2025 10:46 Report Date: 05/15/2025 [...] Owens M.D. 05/15/2025 10:49 AM Dictation Location: [place] [address] Electronically authenticated by: [id number] Y Date: 0:49 Dictated By: Melani Owens M.D. Signed By:05/15/25 1051 DD/ 1049 TD/TT: Right Of Way Maintenance Supervisor: Generic External Data Provider [facility]AG[facility] [...] CLINISYNC F inal Result Performing Organization Address [facility] Co de Phone Number [facility] * [facility] APTT (05/15/2025 10:35 AM EDT) PARTIAL THROMBOPLASTIN TIME 32.2 22.3 - 36.2 sec TB 05/15/2025 10:3 5 AM EDT 05/15/2025 10:40 AM EDT Narrative [facility] - 05/15/2025 11:18 AM EDT Generic External Data Provider CL[facility] F inal Result Performing Organization Address [facility] Co de Phone Number [facility] * (ABNORMAL) ALL CBC WITH AUTO DIFF (05/15/2025 10:35 AM EDT) [facility] TB WBC 7.1 4.0 - 11.0 10 [...] Data Provider [facility] F inal Result [facility] * (ABNORMAL) ALL BASIC METABOLIC PANEL [...] 0.70 - 1.30 mg/dL TBH TBH EGFR-AF BURKINAN >60 >=60 mL/min/1.7 3m 2 TBH TBH EGFR-NON AF BURKINAN 54(L) >=60 mL/min/1.7 3m 2 TBH BUN CREATININE RATIO 18.9 TBH CALCIUM 8.5 8.5 - 10.1 mg/dL TBH 05/15/2025 10:3 5 AM EDT 05/15/2025 10:40 AM EDT Narrative [facility] - 05/15/2025 11:26 AM EDT Generic External Data Provider [facility] F inal Result [facility] TB * ECG 12-LEAD (05/15/2025 8:31 AM EDT) Anatomical Region Laterality Modality Other 05/15/2025 8:31 AM EDT Narrative 05/19/2025 4:10 PM EDT [address] [address] Electrocardiograph Report Signed Patient: JANICE PANDYA Jr. MR#: [id number] : 1955 Acct:[id number] Age/Sex: 70 / M ADM Date: 05/15/25 Loc: PST Attending Dr: Nisha Ivory D.P.M. Ordering Physician: Nisha Ivory D.P.M. Date of Service: 05/15/25 Procedure(s): ECG 12 lead Accession Number(s): [id number] cc: [facility] Test Date: 2025-05-15 Pat Name: JANICE PANDYA Department: Room: - Gender: Male Naphthalene Operator: : 1955 Requested By: NISHA IVORY Order Number: [id number] Reading MD: DEBRA FAITH Measurements Intervals [place] Rate: 63 P: 21 AK: 288 QRS: 35 QRSD: 114 T: 146 [...] Signed By: 05/19/25 1610 DD/ 0831 TD/TT: Right Of Way Maintenance Supervisor: Procedure Note Radiology, Radiologist, MD - 05/19/2025 [place] [address] Electrocardiograph Report Signed Patient: JANICE PANDYA Jr.MR#: [id number] : 6Acct:[id number] Age/Sex: 70 / MADM Date: 05/15/25 Loc: PST Attending Dr: Nisha Ivory D.P.M. Ordering Physician: Nisha Ivory D.P.M. Date of Service: 05/15/25 Procedure(s): ECG 12 lead Accession Number(s): [id number] cc: [facility] Test Date: 2025-05-15 Pat Name: JANICE PANDYA Department: Room: - Gender: Male Naphthalene Operator: : 1955 Requested By: NISHA IVORY Order Number: [id number] Reading MD: EHAB ELTAHAWY Measurements Intervals [place] Rate: 63 P: 21 AK: 288 QRS: 35 QRSD: 114 T: 146 [...] M.D. Signed By:05/19/25 1610 DD/ 0831 TD/TT: Right Of Way Maintenance Supervisor: Generic External Data Provider [facility] IMAG[facility] [...] - 12/02/2024 10:07 AM EST Performed at: [facility] [id number] Writer Editor: Leonardo Stevens PhD, Phone: [phone] us Lashaun Madison DO LAB URINE ORDERABLES Final Result [facility] * Color Fundus Photography - OU - Both Eyes (06/27/2022 12:00 PM EDT) Anatomical Region Laterality Modality Head Fundus Photograp hy 06/27/2022 12:0 0 PM EDT Narrative 06/27/2022 12:00 PM EDT PERFORMED AT [facility] LOCATION:[id number] SSI Procedure Note CONVERSION, GENERIC - 03/21/2023 PERFORMED AT [facility] LOCATION:[id number] SSI us Lashaun Madison DO OPHTH PHOTOGRAPHY Final Re sult from Last 3 Months or Most Recently Relevant to Health Maintenance Insurance [employer]ARE [employer] Care Teams Panel Edge Painter Relationship Specialty Start Date End Date Lashaun Madison DO [address] [place] [address] PCP - ACO Reach 03/29/23 Nitish Martin DO [address] [place] [address] PCP - General Family Medicine 03/13/23 Elliot Elias MD [address] [facility] 2, [address] [place] [address] Referring Physician Cardiology 12/04/24 Nisha Ivory MD [address] [place] [address] [place] [address] Referring Physician Podiatry 12/04/24
--- OUTSIDE RECORDS SUMMARY | 2025-07-14 09:28 | XMS_ITS | Clinical Summary ---
Author Organization [facility] Address [address] [place] [address] Phone Care Team Providers Care Airbrush Artist Name Role Phone Nitish Agrawal DO Primary Care Provider [phone] Allergies Active Allergy Reactions Criticality Noted Date [...] Type Department Care Team Description 05/07/[address] [address] Franchesca Adan LPN POC from Last 3 Months Immunizations Immunization Administration [...] Description 08/04/2025 11:10 AM EDT Office Visit [facility] [address] [phone] Martin Elias DO 703 [facility] 2, [address] [id number] Health Maintenance Due Date Last Done Comments [...] Vaccines (1 of 2) 02/07/2006 11/22/2020, 08/06 Colorectal Cancer Screening 03/27/2025 FIT-DNA (Cologuard) 03/27/2025 03/27/2022 COVID-19 Vaccine ( season) 2025 08/04/2024, 08/09/2023, 08/02/2022, Additional history exists Influenza Vaccine (#1) 2025 [...] patient's age to complete this topic Insurance [facility] MEDICARE SUPPLEMENT MEDICARE PART A AND B Care Teams Airbrush Artist Relationship Specialty Start Date End Date Nitish Agrawal DO [address] [place] [address] PCP - General 09/18/19
--- OUTSIDE RECORDS SUMMARY | 2025-07-14 09:28 | XMS_ITS | Encounter Summary ---
Author Organization [facility] Address [address] [place] [address] Phone Care Team Providers Care Non Destructive Evaluation Specialist Name Role Phone Nitish Agrawal DO Primary Care Provider [phone] Encounter Details Date Type Department Care Team (Late st Contact Info) Description 01/15/2019 Orders Only [facility] [address] [place] [address] Conversion, Onbase Social History Tobacco Use Types [...] AM EDT Office Visit [facility] [address] [facility] [address] [place] [address] Martin Elias DO 703 [facility] 2, [address] [place] [address] Scheduled Orders Name Type Priority Associated Diagnoses Orde r Schedule OUTSIDE LAB SCAN Lab Ordered: 01/15/2019 documented as of this encounter Visit Diagnoses Not on filedocumented in this encounter Care Teams Non Destructive Evaluation Specialist Relationship Specialty Start Date End Date Nitish Agrawal DO [address] [place] [address] PCP - General 09/18/19 documented as of this encounter
--- OUTSIDE RECORDS SUMMARY | 2025-07-14 09:40 | XMS_ITS | CCD ---
Author Organization [facility] Care Team Providers Care Net C Developer Name Role Phone NITISH [phone] UNKNOWN Unavailable Unavailable Ayisire, Eseoghene N Unavailable [...] Unavailable Nitish Agrawal DO Primary Care Provider [phone] Lashaun Bradley DO Unavailable Nitish Agrawal DO Primary Care Provider Elliot Elias MD Unavailable Nisha Farrar MD Unavailable Nitish Agrawal DO Primary Care Provider [phone] Elliot Elias MD Unavailable MARTIN ELIAS Referring Unavailable NITISH AGRAWAL Primary Care Unavailable LASHAUN BRADLEY Attending Unavailable NITISH AGRAWAL Referring Unavailable NITISH AGRAWAL Attending Unavailable LASHAUN BRADLEY Attending Unavailable NITISH AGRAWAL Referring Unavailable JOYCE LYOD Attending Unavailable LATHA CAICEDO Attending Unavailable LASHAUN [...] Inhibitors] Allergy to drug (finding) 3 Hypotension [facility] Repository (7 sources) Angiotensin-conv erting enzyme inhibitor agent Drug Intolerance 3 Unknown [facility] Medications Current Medications Medication Drug Class(es) Dates [...] Jacki cium Active Blood Glucose Monitoring Suppl (OneAstro [employer] Verio Flex System) w/Device kit (20 sources) [...] [Coronary atherosclerosis of unspecified type of vessel, [place] or graft] Onset: 03-29-2016 01-29-2024 Chronic Diabetes [...] Onset: 10-24-2022 Episodic Other aftercare (1 source) long-term (current) use of aspirin; 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 MR#: [id number] : 1955 Acct:[id number] Age/Sex: 70 / M ADM Date: 05/19/25 Loc: SURGOUT Attending Dr: Nisha Farrar D.P.M. Ordering Physician: Nisha Farrar D.P.M. Date of Service: 05/19/25 Procedure(s): XR foot LT min 3V Accession Number(s): [id number] cc: NITISH AGRAWAL ; Nisha Farrar D.P.M. [place] [id number] Patient Name: JANICE FORD MRN: TBH:[id number] date: 1955 Sex: M Assigned Patient Location: [facility] Current Patient Location: Accession/Order Number: [id number] Exam Date: 05/20/2025 08:15 Report Date: 05/20/2025 [...] Owens M.D. 05/20/2025 8:21 AM Dictation Location: [place] [address] Electronically authenticated by: [id number] Date: 05/20/2025 08:21 Dictated By: Melani Owens M.D. Signed By: 05/20/25822 DD/ 0 TD/TT: Wound Care Physician: [facility], Radiologist, MD - 05/20/2025 [place] [address] XRay Report Signed Patient: JANICE FORD Jr. MR#: [id number] : 1955 Acct:[id number] Age/Sex: 70 / M ADM Date: 05/19/25 Loc: SURGOUT Attending Dr: Nisha Farrar D.P.M. Ordering Physician: Nisha Farrar D.P.M. Date of Service: 05/19/25 Procedure(s): XR foot LT min 3V Accession Number(s): [id number] cc: NITISH AGRAWAL ; Nisha Farrar D.P.M. [place] [address] Patient Name: JANICE FORD MRN: [facility]:[id number] date: 1955 Sex: M Assigned Patient Location: [facility] Current Patient Location: Accession/Order Number: [id number] Exam Date: 05/20/2025 08:15 Report Date: 05/20/2025 [...] Owens M.D. 05/20/2025 8:21 AM Dictation Location: [place] [address] Electronically authenticated by: [id number] Y Date: 05/20/2025 08:21 Dictated By: Melani Owens M.D. Signed By: 05/20/25822 DD/ 0 TD/TT: Wound Care Physician: [facility] Radiology Study observation (narrative) [facility] XR FOOT LT MIN 3VOrdered By: Radiologist Radiology on 05-20-2025 [facility] Work Phone: ECG 12-LEADon 05-19-2025 [place] [address] Electrocardiograph Report Signed Patient: JANICE FORD Jr. MR#: [id number] : 1955 Acct:[id number] Age/Sex: 70 / M ADM Date: 05/15/25 Loc: PST Attending Dr: Nisha Farrar D.P.M. Ordering Physician: Nisha Farrar D.P.M. 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 MR#: [id number] : 1955 Acct:[id number] Age/Sex: 70 / M ADM Date: 05/15/25 Loc: RUST Attending Dr: Nisha Farrar D.P.M. Ordering Physician: Nisha Farrar D.P.M. 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1955 Requested By: NISHA FARRAR Order Number: [id number] Reading MD: DEBRA FAITH Measurements Intervals [place] Rate: 63 P: 21 DC: 288 QRS: 35 QRSD: 114 T: 146 [...] Signed By: 05/19/25 1610 DD/ 0831 TD/TT: Wound Care Physician: [employer] ECG 12-LEADOrdered By: [email or web address] logist Radiology on 05-19-2025 [employer] Work Phone: Mohit 05-19-2025 L - -------- Specimen: [id number] Received: 05/20/25 Status: EL Harris Num: [id number] Spec Type: Surgical Subm Dr: Nisha Farrar,[place], [place] Tissues: A DIGIT AMPUTATION (LEFT 2nd METATARSAL) Procedures: HE/2, Gross/Micro L4, Decalcification -------- Age/ Patient Sex Location Account Attending Physician -------- Janice Ford 70/M LABELL [id number] Nisha Farrar DPM, [place] -------- SPEC NUM: [id number] RECD: 05/20/25 STATUS: EL HARRIS NUM: [id number] KAMILA: 05/19/[address] [facility] [address]: Nisha Farrar DPM, MS ENTERED: 05/20/[address] [facility] [address]: Luis F,Lab SPEC TYPE: Surgical DEPT: VENECIA BILL ENTERED BY: [id number] RECV BY: [id number] ORDERED: HE/2, Gross/Micro L4, Decalcification ORDERED: HE/2, [...] soft tissue submitted in A2. (2, , [id number] A)HORTENCIA -------- Specimen: [id number] Received: 05/20/25 Status: EL Harris Num: [id number] Spec Type: Surgical Subm Dr: Nisha Farrar,DPJudie, [place] Tissues: A DIGIT AMPUTATION (LEFT 2nd METATARSAL) Procedures: HE/2, Gross/Micro L4, Decalcification -------- Patient: Janice Ford Jr [id number] (Continued) -------- Specimen: [id number] Received: 05/20/25 (Continued) Signed (signature on file) Denys Forde MD 05/27/25 1030 -------- Specimen: [id number] Received: 05/20/25 Status: EL Harris Num: [id number] Spec Type: Surgical Subm Dr: Nisha Farrar,DPM, MS Tissues: A DIGIT AMPUTATION (LEFT 2nd METATARSAL) Procedures: HE/2, Gross/Micro L4, Decalcification -------- Patient: Janice Ford [id number] (Continued) -------- Specimen: [id number] Received: 05/20/25 (Continued) Microscopic Description Microscopic examination is performed. CPT Codes 45361, 20034 -------- -------- Specimen: [id number] Received: 05/20/25 Status: EL Harris Num: [id number] Spec Type: Surgical Subm Dr: Peter Highlander,DPM, MS Tissues: A DIGIT AMPUTATION (LEFT 2nd METATARSAL) Procedures: HE/2, Gross/Micro L4, Decalcification -------- Patient: Janice Ford Jr [id number] (Continued) -------- Signed (signature on file) Denys Forde MD 05/27/25 1030 Normal [facility] SEGMENTAL BLOOD PRESSUREon 0 05-19-2025 [place] [address] Cardiology Report Signed Patient: JANICE FORD Jr. 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 SEGMENTAL BLOOD PRESSUREOrde red By: Radiologist Radiology on 05-19-2025 [facility] [employer] Work Phone: SEGMENTAL BLOOD PRESSUREon 0 05-18-2025 Radiology Study observation (narrative) [facility] ECG 12-LEADon 05-15-2025 Radiology Study observation (narrative) [facility] XR CHEST 2Von 05-15-2025 [place] [address] XRay Report Signed Patient: JANICE FORD Jr. MR#: [id number] : 1955 Acct:[id number] Age/Sex: 70 / M ADM Date: 05/15/25 Loc: RUST Attending Dr: Nisha Farrar D.P.M. Ordering Physician: Nisha Farrar D.P.M. Date of Service: 05/15/25 Procedure(s): XR chest 2V Accession Number(s): [id number] cc: NITISH AGRAWAL ; Nisha Farrar D.P.M. [place] [id number] Patient Name: JANICE FORD MRN: TBH:[id number] date: 1955 Sex: M Assigned Patient Location: [facility] Current Patient Location: [facility] Accession/Order Number: [id number] Exam Date: 05/15/2025 10:46 Report Date: 05/15/2025 [...] Owens M.D. 05/15/2025 10:49 AM Dictation Location: [place] [address] Electronically authenticated by: [id number] Date: 05/15/2025 10:49 Dictated By: Melani Owens M.D. Signed By: 05/15/25 1051 DD/ 1049 TD/TT: Wound Care Physician: [facility] Rad[facility], Radiologist, MD - 05/15/2025 [place] [address] XRay Report Signed Patient: JANICE FORD Jr. MR#: [id number] : 1955 Acct:[id number] Age/Sex: 70 / M ADM Date: 05/15/25 Loc: RUST Attending Dr: Nisha Farrar D.P.M. Ordering Physician: Nisha Farrar D.P.M. Date of Service: 05/15/25 Procedure(s): XR chest 2V Accession Number(s): [id number] cc: NITISH AGRAWAL ; Nisha Farrar D.P.M. The [place] [id number] Patient Name: JANICE FORD MRN: [facility]:[id number] date: 1955 Sex: M Assigned Patient Location: [facility] Current Patient Location: [facility] Accession/Order Number: [id number] Exam Date: 05/15/2025 10:46 Report Date: 05/15/2025 [...] Owens M.D. 05/15/2025 10:49 AM Dictation Location: [place] [address] Electronically authenticated by: [id number] Y Date: 05/15/2025 10:49 Dictated By: Melani Owens M.D. Signed By: 05/15/25 1051 DD/ 1049 TD/TT: Wound Care Physician: [facility] [employer] Radiology Study observation (narrative) [facility] [employer] XR CHEST 2VOrdered By: [email or web address] logist Radiology on 05-15-2025 [employer] [facility] Work Phone: XR FOOT LT MIN 3Von 04-22-20 [place] [address] XRay Report Signed Patient: JANICE FORD MR#: [id number] : 1955 Acct:[id number] Age/Sex: 70 / M ADM Date: 04/22/25 Loc: RAD Attending Dr: Nisha Farrar D.P.M. Ordering Physician: Nisha Farrar D.P.M. Date of Service: 04/22/25 Procedure(s): XR foot LT min 3V Accession Number(s): [id number] cc: NITISH AGRAWAL ; Nisha Farrar D.P.M. [place] [id number] Patient Name: JANICE FORD MRN: [id number]:[id number] date: 1955 Sex: M Assigned Patient Location: [facility] Current Patient Location: [facility] Accession/Order Number: [id number] Exam Date: 04/22/2025 15:23 Report Date: 04/22/2025 [...] 04/22/2025 3:25 PM Dictation Location: [place] [address] Electronically authenticated by: [id number] Y Date: 04/22/2025 15:25 Dictated By: Theron Guerra M.D. Signed By: 04/22/25 1527 DD/ 1525 TD/TT: Wound Care Physician: [facility] Radiology, Radiologist, MD - 04/22/2025 [place] [address] XRay Report Signed Patient: JANICE FORD MR#: [id number] : 1955 Acct:[id number] Age/Sex: 70 / M ADM Date: 04/22/25 Loc: RAD Attending Dr: Nisha Farrar D.P.M. Ordering Physician: Nisha Farrar D.P.M. Date of Service: 04/22/25 Procedure(s): XR foot LT min 3V Accession Number(s): [id number] cc: NITISH AGRAWAL ; Nisha Farrar D.P.M. The [place] [id number] Patient Name: JANICE FORD MRN: [facility]:[id number] date: 1955 Sex: M Assigned Patient Location: [facility] Current Patient Location: [facility] Accession/Order Number: [id number] Exam Date: 04/22/2025 15:23 Report Date: 04/22/2025 [...] 04/22/2025 3:25 PM Dictation Location: [place] [address] Electronically authenticated by: [id number] Y Date: 04/22/2025 15:25 Dictated By: Theron Guerra M.D. Signed By: 04/22/25 1527 DD/ 1525 TD/TT: Wound Care Physician: [facility] [employer] Radiology Study observation (narrative) [facility] [employer] XR FOOT LT MIN 3VOrdered By: Radiologist Radiology on 04-22-2025 [employer] Work Phone: nm Heart Perfusion W [...] Erika Osborne 02/23/2025 6:21 PM Dictation workstation: [id number] Interpreted By: Erika Osborne, Sahil Lopez STUDY: MYOCARDIAL PERFUSION STRESS TEST WITH LEXISCAN Performing facility: [facility], [address] [place] [address], [address], [place] [address] [facility] Provider: Ratna Elias DO, FACC PCP: Dr. Vineet Agrawal Supervising provider: Yamilka Rebollar MD, FACC INDICATION: Signs/Symptoms:h/o pci, angina 2-3, palps, tachy. ,I25.10 Atherosclerotic heart disease of [place] coronary artery without angina pectoris,Z95.1 Presence of [...] 1992. COMPARISON: Previous nuclear testing completed at [facility]. ACCESSION NUMBER(S): [id number] ORDERING CLINICIAN: MARTIN ELIAS TECHNIQUE: ONE DAY [...] PERFUSION STRESS TEST WITH LEXISCAN Performing facility: [facility], [address] [place] [address], [address], [place] [address] [facility] Provider: Ratna Elias DO, [facility] PCP: Dr. Vineet Agrawal Supervising provider: Yamilka Rebollar MD, [facility] INDICATION: Signs/Symptoms:h/o pci, angina 2-3, palps, tachy. ,I25.10 Atherosclerotic heart disease of [place] coronary artery without angina pectoris,Z95.1 Presence of [...] 1992. COMPARISON: Previous nuclear testing completed at [facility]. ACCESSION NUMBER(S): [id number] ORDERING CLINICIAN: MARTIN ELIAS TECHNIQUE: ONE DAY [...] Erika Osborne 02/23/2025 6:21 PM Dictation workstation: [id number] [facility] Work Phone: Radiology Study observation (narrative) [facility] Work Phone: NM Heart Perfusion W stress and W radionuclide IVOrdered By: Erika Osborne on 02-23-2025 [facility] Work Phone: NUCLEAR STRESS TESTon 2024 NUCLEAR STRESS TEST Interpreted By: Erika Osborne and Giannuzzi Michael STUDY: MYOCARDIAL PERFUSION STRESS TEST WITH LEXISCAN Performing facility: [facility], [address] [place] [address], [address], [address] Provider: Ratna Elias DO, FACC PCP: Dr. Vineet Agrawal Supervising provider: Yamilka Rebollar MD, FACC INDICATION: Signs/Symptoms:h/o pci, angina 2-3, palps, tachy. ,I25.10 Atherosclerotic heart disease of [place] coronary artery without angina pectoris,Z95.1 Presence of [...] on 1992. COMPARISON: Previous nuclear testing completed [id number] at [facility]. ACCESSION NUMBER(S): [id number] ORDERING CLINICIAN: MARTIN ELIAS TECHNIQUE: ONE DAY [...] Erika Osborne 02/23/2025 6:21 PM Dictation workstation: [id number] [facility] NUCLEAR STRESS TEST EXERCISE (CARD)on 02-23-2025 Source Facility: [facility] Interpreted By: Erika Osborne and Maine Lopez STUDY: MYOCARDIAL PERFUSION STRESS TEST WITH LEXISCAN Performing facility: [facility], [address], [address], [place] [address] [facility] Provider: Ratna Elias DO, [facility] PCP: Dr. Vineet Agrawal Supervising provider: Yamilka Rebollar MD, [facility] INDICATION: Signs/Symptoms:h/o pci, angina 2-3, palps, tachy. ,I25.10 Atherosclerotic heart disease of [place] coronary artery without angina pectoris,Z95.1 Presence of [...] 1992. COMPARISON: Previous nuclear testing completed at [facility]. ACCESSION NUMBER(S): [id number] ORDERING CLINICIAN: MARTIN ELIAS TECHNIQUE: ONE DAY [...] Erika Osborne 02/23/2025 6:21 PM Dictation workstation: [id number] Radiology, Radiologist, MD - 02/24/2025 Source Facility: [facility] Interpreted By: Erika Osborne and Maine Lopez STUDY: MYOCARDIAL PERFUSION STRESS TEST WITH LEXISCAN Performing facility: [facility], [address] [place] [address], [address], [address] Provider: Ratna Elias DO, FACC PCP: Dr. Vineet Agrawal Supervising provider: Yamilka Rebollar MD, FACC INDICATION: Signs/Symptoms:h/o pci, angina 2-3, palps, tachy. ,I25.10 Atherosclerotic heart disease of [place] coronary artery without angina pectoris,Z95.1 Presence of [...] 1992. COMPARISON: Previous nuclear testing completed at [facility]. ACCESSION NUMBER(S): [id number] ORDERING CLINICIAN: MARTIN ELIAS TECHNIQUE: ONE DAY [...] Erika Osborne 02/23/2025 6:21 PM Dictation workstation: [id number] [facility] Radiology Study observation (narrative) [facility] NUCLEAR STRESS TEST EXERCISE (CARD)Ordered By: Radiologist Radiology on 02-23-2025 [facility] [employer] Work Phone: ALL BASIC METABOLIC PANELon 01-28-2025 Anion gap [Moles/Vol] 13.7 mmol/L [facility] Calcium [Mass/Vol] 8.8 mg/dL 8.5 - 10. 1 mg/dL [facility] Chloride [Moles/Vol] 104 mmol/L 98 - 10 7 mmol/L [facility] [employer] CO2 [Moles/Vol] 25.7 mmol/L 21.0 - 32.0 mmol/L [facility] [employer] Creatinine [Mass/Vol] 1.39 mg/dL High 0.70 - 1.30 mg/dL [facility] [employer] GFR/1.73 sq M.predicted CKD-EPI (S/P/Bld) [Vol rate/Area] >60 >=60 mL/min/1.73m 2 [facility] [employer] Glucose [Mass/Vol] 150 mg/dL High 74 - 106 mg/dL [facility] Potassium [Moles/Vol] 4.4 mmol/L 3.5 - 5.1 mmol/L [facility] [employer] Sodium [Moles/Vol] 139 mmol/L 136 - 145 mmol/L [facility] TBH EGFR-NON AF LIBYAN 51 Low >=60 mL/min/1.73m 2 [facility] [employer] Urea nitrogen [Mass/Vol] 25 mg/dL High 7.0 - 18.0 mg/dL [facility] [employer] Urea nitrogen/Creatinine [Mass ratio] 18 mg/mg [facility] [employer] ALL PRO BNPon 01-28-2025 NT PRO B TYPE NATRIURETIC PEPT 1185 pg/mL High NINF - 900.0 pg/mL [facility] [employer] No Panel Informationon 01-28 Interpretation and review of laboratory results Abnormal [facility] [employer] [facility] [employer] HbA1c (Bld) [Mass fraction]o n 12-01-2024 Interpretation and review of laboratory results Normal [facility] - Hematology and Cell countson 12-01-2024 HbA1c (Bld) [Mass fraction] 7.7 % [facility] [employer] HbA1c (Bld) [Mass fraction]o n 09-01-2024 Interpretation and review of laboratory results Abnormal [facility] - Hematology and Cell countson 09-01-2024 HbA1c (Bld) [Mass fraction] 8.6 % [facility] [employer] No Panel Informationon 06-27 [employer] Carcinoembryonic Ag [Mass/Vo l]on 06-20-2024 Performing Organization Information Site ID: QPT Name: [employer] [facility] Address: [address] [place] [address], [address] [place] [id number] Director: Edil Bedolla MD [facility] Laboratory - Chemistry and C hemistry - challengeon 06-20-2024 Calcitonin [Mass/Vol] 6 pg/mL NINF - 10 pg/mL [facility] Comment on above: This test was performed using the Siemens Chemiluminescent method. Values obtained with different assay methods cannot be used interchangeably. Calcitonin levels, regardless of value, should not be interpreted as absolute evidence of the presence or absence of the disease. Carcinoembryonic Ag [Mass/Vol] ng/mL See Note: ng/mL [facility] Comment on above: Reference Range: Non-Smoker: <2.5 Smoker: <5.0 This test was performed using the Siemens chemiluminescent method. Values obtained from different assay methods cannot be used interchangeably. CEA levels, regardless of value, should not be interpreted as absolute evidence of the presence or absence of disease. No Panel Informationon 06-20 Performing Organization Information Site ID: AMD Name: [employer] Address: [address] [place] [address] [place], [place] Director: Huan Tate M.D.,PhD [facility] US THYROIDon 06-16-2024 [place] [...] report is generated using voice recognition reporting ([employer]). On occasion [employer] erroneously drops words from the report or [...] report is generated using voice recognition reporting ([employer]). On occasion [employer] erroneously drops words from [...] report is generated using voice recognition reporting ([employer]). On occasion [employer] erroneously drops words from the report or replaces the spoken word with similar sounding words. Please call with any questions/concerns regarding this report.* Dictated and transcribed 06/16/2024/[place] This report has been electronically signed and approved by the interpreting radiologist. Electronically Signed Martin Christianson II, M.D. 2024-06-16 16:43:23 [facility] [employer] Radiology Study observation (narrative) [facility] US Thyroid glandOrdered By: Martin Christianson on 06-16-2024 [facility] [employer] Work Phone: Office Visit (Cardiology)on 01-23-2023 [...] are negat (more content not included)... Normal [employer] Tobacco Screening.on 023 Adult depression screening assessment No [facility] [employer] 250 DO Work Phone: Fall risk assessment a) No falls within the last year [facility] [employer] 250 DO Work Phone: Tobacco use status CPHS b) No [facility] [employer] 250 DO Work Phone: ACID FAST SMEAR AND CXon Acid Fast Culture Negative Normal [facility] Comment on above: Result Comment: No a monse fast bacilli isolated after 6 weeks. Performed By: #### A FB #### [facility] [address] [place] [address] Dr. Balta Gorman Acid Fast Smear Negative Normal [facility] Comment on above: Performed By: #### A FB #### [facility] [address] [place] [address] Dr. Balta Gorman [employer] Specimen Processing Tissue Grinding Normal [facility] Comment on above: Performed By: #### A FB #### [facility] [address] [place] [address] Dr. Balta Gorman FUNGAL CULTUREon 07-11-2022 Fungus (Mycology) Culture Final report Normal [facility] Comment on above: Performed By: #### C XFUN #### [facility] [address] [place] [address] Dr. Balta Gorman Fungus Stain Final report Normal [facility] Comment on above: Performed By: #### C XFUN #### [facility] [address] [place] [address] Dr. Balta Gorman Result 1 Comment Normal [facility] Comment on above: Result Comment: FRANCISCA/ Calcofluor preparation: no fungus observed. Performed By: #### C XFUN #### [facility] [address] [address] [address] Balta Gorman Result Comment: No y east or mold isolated after 4 weeks. WOUND CULTUREon 06-15-2022 Bacteria identified Aer cx Nom (Unsp spec) Final report Normal [facility] Comment on above: Performed By: #### A FB #### [facility] [address] [place] [address] Dr. Balta Gorman Result 1 Comment Normal [facility] Comment on above: Result Comment: No g rowth in 36 - 48 hours. Performed By: #### A FB #### [facility] [address] [place] [address] Dr. Balta Gorman GRAM STAINon 06-12-2022 DIPHTHEROIDS Normal [facility] Comment on above: Performed By: #### C VDTBH #### [facility] [address] [place] [address] Dr. Balta Gorman EPITHELIALS Normal [facility] Comment on above: Performed By: #### C VDTBH #### [facility] [address] [place] [address] Dr. Balta Gorman FUNGAL ELEMENTS Normal [facility] Comment on above: Performed By: #### C VDTBH #### [facility] [address] [place] [address] Dr. Balta Gorman GRAM NEG BACILLI Normal [facility] Comment on above: Performed By: #### C VDTBH #### [facility] [address] [place] [address] Dr. Balta CAVAZOS NEG DIPPLOCOCCI Normal [facility] Comment on above: Performed By: #### C VDTBH #### [facility] [address] [place] [address] Dr. Balta CAVAZOS POS BACILLI Normal [facility] Comment on above: Performed By: #### C VDTBH #### [facility] [address] [place] [address] Dr. Balta Gorman GRAM POSITIVE COCCI Normal [facility] Comment on above: Performed By: #### C VDTBH #### [facility] [address] [address] [address] Balta Gorman GRAM STAIN SOURCE Rt 4th Toe Bone Normal [facility] Comment on above: Performed By: #### C VDTBH #### [facility] [address] [address] [address] Balta Gorman GS_DIPTH Normal [facility] Comment on above: Performed By: #### C VDTBH #### [facility] [address] [address] [address] Balta Gorman WBC NONE SEEN [facility] Comment on above: Performed By: #### C VDTBH #### [facility] [address] [address] [address] Balta Gorman POINT OF CARE GLUCOSEon Glucose [Mass/Vol] 168 mg/dL Critically high -106 [facility] Comment on above: Performed By: #### P OCGLUC ####[facility] [address] [address]Dr. Balta Gorman Glucose [Mass/Vol] 161 mg/dL Critically high -106 [facility] Comment on above: Performed By: #### P OCGLUC #### [facility] [address] [address] [address] Balta Gorman Covid-19 PCR (CVDTBH)on SARS-CoV-2 (COVID-19) RNA DERICK+probe Ql (Unsp spec) Not detected Normal NOT DETECTED [facility] Comment on above: Result Comment: This test is not yet approved or cleared by the [place] FDA. When there are no FDA-approved or cleared tests available, and other criteria are met, FDA can make tests available under an emergency access mechanism called an Emergency Use Authorization (EUA). The EUA for this test is supported by the [place] of Health and Human Service's (HHS's) declaration [...] with SARS-CoV-2. Performed By: #### C VDTBH ####[facility] [address] [address]Dr. Balta Gorman PROF CHEM 8 (BAS METB)on Anion gap [Moles/Vol] 13.3 mmol/L Normal [facility] Comment on above: Performed By: #### C VDTBH #### [facility] [address] [address] [address] Balta Gorman Calcium [Mass/Vol] 8.7 mg/dL Normal 8.5-10.1 [facility] Comment on above: Performed By: #### C VDTBH #### [facility] [address] [address] [address] Balta Gorman Chloride [Moles/Vol] 106 mmol/L Normal 98-107 [facility] Comment on above: Performed By: #### C VDTBH #### [facility] [address] [address] [address] Balta Gorman CO2 [Moles/Vol] 23.9 mmol/L Normal 21.0-32.0 [facility] Comment on above: Performed By: #### C VDTBH #### [facility] [address] [address] [address] Balta Gorman Creatinine [Mass/Vol] 1.24 mg/dL Normal 0.70-1.30 [facility] Comment on above: Performed By: #### C VDTBH #### [facility] [address] [place] [address] Dr. Balta Gorman EGFR-AF LIBYAN >60 Normal >=60 [facility] Comment on above: Performed By: #### C VDTBH #### [facility] [address] [address] [address] Balta Gorman EGFR-NON AF LIBYAN 58 mL/min/1.73m2 Critically low >=60 [facility] Comment on above: Performed By: #### C VDTBH #### [facility] [address] [address] [address] Balta Gorman Glucose [Mass/Vol] 158 mg/dL Critically high 74-106 [facility] Comment on above: Performed By: #### C VDTBH #### [facility] [address] [address] [address] Balta Gorman Potassium [Moles/Vol] 4.2 mmol/L Normal 3.5-5.1 [facility] Comment on above: Performed By: #### C VDTBH #### [facility] [address] [address] [address] Balta Gorman Sodium [Moles/Vol] 139 mmol/L Normal 136-145 [facility] Comment on above: Performed By: #### C VDTBH #### [facility] [address] [address] [address] Balta Gorman Urea nitrogen [Mass/Vol] 19.0 mg/dL Critically high 7.0-18.0 [facility] Comment on above: Performed By: #### C VDTBH #### [facility] [address] [address] [address] Balta Gorman Urea nitrogen/Creatinine [Mass ratio] 15.3 mg/mg Normal [facility] Comment on above: Performed By: #### C VDTBH #### [facility] [address] [id number] [address] Balta Gorman ACID FAST SMEAR AND CXon Acid Fast Culture Negative Normal [facility] Comment on above: Result Comment: No a monse fast bacilli isolated after 6 weeks. Performed By: #### A FB ####[facility] [address] [place], [place] [address]VdDr. Balta Gorman Acid Fast Smear Negative Normal [facility] Comment on above: Performed By: #### A FB ####[facility] [address] [place], [place] [address]OxDr. 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 Balta Gorman FUNGAL CULTUREon 05-05-2022 Fungus (Mycology) Culture Final report Normal [facility] Comment on above: Performed By: #### A FB #### [facility] [address] [place], [place] [address] Dr. Balta Gorman Fungus Stain Final report Normal [facility] Comment on above: Performed By: #### A FB #### [facility] [address] [place], [place] [address] Dr. Balta Gorman Result 1 Comment Normal [facility] Comment on above: Result Comment: FRANCISCA/ Calcofluor preparation: no fungus observed. Performed By: #### A FB #### [facility] [address] [place], [place] [address] Dr. Balta Gorman Result Comment: No y [...] lose weight.; Status:Complete - Retrospective Authorization; Done: [id number] SocHx: Never a smoker Tobacco Use Screening; Status:Complete; Done: [id number] Patient Instructions By signing my name below, [...] that was done back in 1992 at [facility]. 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 This was redilated and stented. He had a recent episode at cardiac rehab in [place] and because of this was seen in [...] Recorded: 01May2022 09:28AM Heart Rate80, L Radial Hitaeifl81, LUE, Sitting Uifncryce51, LUE, Sitting Height6 ft 1 in Xaiztg007 lb BMI Nhxwgnnkzz37.42 kg/m2 BSA Calculated2.25 Tobacco Useb) No Falls Screening (Age 18+)a) No falls within the last year Signatures Electronically signed by : Helga Flores DO; May 01 2022 11:18AM EST (Author) Normal [facility] Tobacco Screening.on 022 Fall risk assessment a) No falls within the last year [facility] [employer] [address] DO Work Phone: Tobacco use status [facility] b) No [facility] [employer] 250 DO Work Phone: XR FOOT LT [...] MARTIN WHITAKER Date: 2022-04-14 10:08 Normal [facility] TISSUE CULTUREon 04-07-2022 Anaerobic Culture, Extended Incubation Final report Normal [facility] Comment on above: Performed By: #### A FB #### [facility] [address] [place] [address] Dr. Balta Gorman Result 1 Comment Normal [facility] Comment on above: Result Comment: No g rowth in 56 - 72 hours. Performed By: #### A FB #### [facility] [address] [address] [address] Balta Gorman Result Comment: No g rowth after 14 days. Tissue Culture Final report Normal [facility] Comment on above: Performed By: #### A FB #### [facility] [address] [place] [address] Dr. Balta Gorman WOUND CULTUREon 03-26-2022 Antimicrobial Susceptibility Comment Normal [facility] Comment on above: Result Comment: S = Susceptible; I = Intermediate; R = Resistant P = Positive; N = Negative MICS are expressed in micrograms per mL Antibiotic RSLT#1 RSLT#2 RSLT#3 RSLT#4 Ciprofloxacin R Clindamycin S Erythromycin S Gentamicin S Levofloxacin R Linezolid S Oxacillin R Penicillin R Rifampin S Tetracycline S Trimethoprim/Sulfa R Vancomycin S Performed By: #### A FB #### [facility] [address] [place] [address] Dr. Balta Gorman Bacteria identified Aer cx Nom (Unsp spec) Final report Abnormal [facility] Comment on above: Performed By: #### A FB #### [facility] [address] [address] [address] Balta Gorman Result 1 Comment Abnormal [facility] Comment on above: Result Comment: Meth icillin - resistant Staphylococcus aureus Based on resistance to oxacillin this isolate would be resistant to all currently available beta-lactam antimicrobial agents, with the exception of the newer cephalosporins with anti-MRSA activity, such as Ceftaroline Heavy growth Performed By: #### A FB #### [facility] [address] [address] [address] Blata Gorman CBC AUTO DIFFon 03-24-2022 BASO # 0.0 103/ul Normal 0.0-0.1 [facility] Comment on above: Performed By: #### C BC ####[facility] [address] [address]DrPaola Gorman Basophils/100 WBC (Bld) 0.5 % Normal 0.2-2.0 [facility] Comment on above: Performed By: #### C BC ####[facility] [address] [address]DrPaola Gorman EO # 0.1 103/ul Normal 0.0-0.7 [facility] Comment on above: Performed By: #### C BC ####[facility] [address] [address]DrPaola Gorman Eosinophils/100 WBC (Bld) 1.1 % Normal 0.9-7.0 [facility] Comment on above: Performed By: #### C BC ####[facility] [address] [address]DrPaola Gorman Erythrocyte distribution width (RBC) [Ratio] 16.9 % Critically high 11.0-15.0 [facility] Comment on above: Performed By: #### C BC ####[facility] [address] [place], [place] [address]DrPaola Gorman Hematocrit (Bld) [Volume fraction] 34.5 % Critically low 42.0-54.0 [facility] Comment on above: Performed By: #### C BC ####[facility] [address] [id number]. Balta Gorman Hemoglobin (Bld) [Mass/Vol] 10.2 g/dL Critically low 14.0-18.0 [facility] Comment on above: Performed By: #### C BC ####[facility] [address] [id number]. Balta Gorman IG # 0.03 10e3/ul Normal 0.00-0.03 [facility] Comment on above: Performed By: #### C BC ####[facility] [address] [address]Dr. Balta Gorman IG % 0.4 % Normal 0.0-0.5 [facility] Comment on above: Performed By: #### C BC ####[facility] [address] [address]Dr. Balta Gorman LYMPH # 1.6 103/ul Normal 1.2-3.8 [facility] Comment on above: Performed By: #### C BC ####[facility] [address] [address]Dr. Aurabenja Gorman Lymphocytes/100 WBC (Bld) 18.4 % Critically low 20.5-60.0 [facility] Comment on above: Performed By: #### C BC ####[facility] [address] [id number]. Balta Gorman MANUAL DIFF REQ NO Normal [facility] Comment on above: Performed By: #### C BC ####[facility] [address] [address]Dr. Aurabenja Gorman MCH (RBC) [Entitic mass] 22.7 pg Critically low 25.9-34.0 [facility] Comment on above: Performed By: #### C BC ####[facility] [address] [address]Dr. Balta Gorman MCHC (RBC) [Mass/Vol] 29.6 g/dL Critically low 29.9-35.2 [facility] Comment on above: Performed By: #### C BC ####[facility] [address] [address]Dr. Balta Gorman MCV (RBC) [Entitic vol] 76.7 fL Critically low 80.0-94.0 [facility] Comment on above: Performed By: #### C BC ####[facility] [address] [address]Dr. Balta Gorman MONO # 0.9 103/ul Critically high 0.3-0.8 [facility] Comment on above: Performed By: #### C BC ####[facility] [address] [address]Dr. Balta Gorman Monocytes/100 WBC (Bld) 11.1 % Normal 1.7-12.0 [facility] Comment on above: Performed By: #### C BC ####[facility] [address] [place], [place] [address]Dr. Balta Gorman NEUT # 5.8 103/ul Normal 1.4-6.5 [facility] Comment on above: Performed By: #### C BC ####[facility] [address] [place], [place] [address]Dr. Balta Sherif Neutrophils/100 WBC (Bld) 68.5 % Normal 43.0-75.0 [facility] Comment on above: Performed By: #### C BC ####[facility] [address] [id number]. Balta Gorman Platelet mean volume (Bld) [Entitic vol] 10.2 fL Normal 9.5-13.5 [facility] Comment on above: Performed By: #### C BC ####[facility] [address] [address]Dr. Balta Sherif PLT 285 103/ul Normal 150-450 [facility] Comment on above: Performed By: #### C BC ####[facility] [address] [id number]. Aurabenja Sherif RBC 4.50 106/ul Critically low 4.70-6.10 [facility] Comment on above: Performed By: #### C BC ####[facility] [address] [id number] Gorman WBC 8.5 103/ul Normal 4.0-11.0 [facility] Comment on above: Performed By: #### C BC ####[facility] [address] [id number] Gorman POINT OF CARE GLUCOSEon 03-06 Glucose [Mass/Vol] 209 mg/dL Critically high 74-106 [facility] Comment on above: Performed By: #### P OCGLUC #### [facility] [address] [address] [address] Balta Gorman PROF CHEM 8 (BAS METB)on Anion gap [Moles/Vol] 13.7 mmol/L Normal [facility] Comment on above: Performed By: #### B MP ####[facility] [address] [address]DrPaola Gorman Calcium [Mass/Vol] 8.1 mg/dL Critically low 8.5-10.1 [facility] Comment on above: Performed By: #### B MP ####[facility] [address] [address]DrPaola Gorman Chloride [Moles/Vol] 105 mmol/L Normal 98-107 [facility] Comment on above: Performed By: #### B MP ####[facility] [address] [address]DrPaola Gorman CO2 [Moles/Vol] 23.0 mmol/L Normal 21.0-32.0 [facility] Comment on above: Performed By: #### B MP ####[facility] [address] [address]DrPaola Gorman Creatinine [Mass/Vol] 1.15 mg/dL Normal 0.70-1.30 [facility] Comment on above: Performed By: #### B MP ####[facility] [address] [address]DrPaola Gorman EGFR-AF LIBYAN >60 Normal >=60 [facility] Comment on above: Performed By: #### B MP ####[facility] [address] [id number]. Balta Gorman EGFR-NON AF LIBYAN >60 Normal >=60 [facility] Comment on above: Performed By: #### B MP ####[facility] [address] [place], [place] [address]CzPaola Gorman Glucose [Mass/Vol] 214 mg/dL Critically high 74-106 [facility] Comment on above: Performed By: #### B MP ####[facility] [address] [id number] Gorman Potassium [Moles/Vol] 3.7 mmol/L Normal 3.5-5.1 [facility] Comment on above: Performed By: #### B MP ####[facility] [address] [id number] Gorman Sodium [Moles/Vol] 138 mmol/L Normal 136-145 [facility] Comment on above: Performed By: #### B MP ####[facility] [address] [id number]. Balta Gorman Urea nitrogen [Mass/Vol] 21.0 mg/dL Critically high 7.0-18.0 [facility] Comment on above: Performed By: #### B MP ####[facility] [address] [id number] Gorman Urea nitrogen/Creatinine [Mass ratio] 18.3 mg/mg Normal [facility] Comment on above: Performed By: #### B MP ####[facility] [address] [id number]. Balta Gorman CBC AUTO DIFFon 03-23-2022 BASO # 0.1 103/ul Normal 0.0-0.1 [facility] Comment on above: Performed By: #### C VDTB #### [facility] [address] [place], [place] [address] Dr. Balta Gorman Basophils/100 WBC (Bld) 1.0 % Normal 0.2-2.0 [facility] Comment on above: Performed By: #### C VDTBH #### [facility] [address] [place] [address] Dr. Balta Gorman EO # 0.3 103/ul Normal 0.0-0.7 [facility] Comment on above: Performed By: #### C VDTBH #### [facility] [address] [place] [address] Dr. Balta Gorman Eosinophils/100 WBC (Bld) 4.5 % Normal 0.9-7.0 [facility] Comment on above: Performed By: #### C VDTBH #### [facility] [address] [place] [address] Dr. Balta Gorman Erythrocyte distribution width (RBC) [Ratio] 17.0 % Critically high 11.0-15.0 [facility] Comment on above: Performed By: #### C VDTBH #### [facility] [address] [place] [address] Dr. Balta Gorman Hematocrit (Bld) [Volume fraction] 35.7 % Critically low 42.0-54.0 [facility] Comment on above: Performed By: #### C VDTBH #### [facility] [address] [place] [address] Dr. Balta Gorman Hemoglobin (Bld) [Mass/Vol] 10.6 g/dL Critically low 14.0-18.0 [facility] Comment on above: Performed By: #### C VDTBH #### [facility] [address] [place] [address] Dr. Balta Gorman IG # 0.03 10e3/ul Normal 0.00-0.03 [facility] Comment on above: Performed By: #### C VDTBH #### [facility] [address] [place] [address] Dr. Balta Gorman IG % 0.4 % Normal 0.0-0.5 [facility] Comment on above: Performed By: #### C VDTBH #### [facility] [address] [place] [address] Dr. Balta Gorman LYMPH # 1.8 103/ul Normal 1.2-3.8 [facility] Comment on above: Performed By: #### C VDTBH #### [facility] [address] [place] [address] Dr. Balta Gorman Lymphocytes/100 WBC (Bld) 25.6 % Normal 20.5-60.0 [facility] Comment on above: Performed By: #### C VDTBH #### [facility] [address] [place] [address] Dr. Balta Gorman MANUAL DIFF REQ NO Normal [facility] Comment on above: Performed By: #### C VDTBH #### [facility] [address] [place] [address] Dr. Balta Gorman MCH (RBC) [Entitic mass] 22.8 pg Critically low 25.9-34.0 [facility] Comment on above: Performed By: #### C VDTBH #### [facility] [address] [place] [address] Dr. Balta Gorman MCHC (RBC) [Mass/Vol] 29.7 g/dL Critically low 29.9-35.2 [facility] Comment on above: Performed By: #### C VDTBH #### [facility] [address] [place] [address] Dr. Balta Gorman MCV (RBC) [Entitic vol] 76.9 fL Critically low 80.0-94.0 [facility] Comment on above: Performed By: #### C VDTBH #### [facility] [address] [place] [address] Dr. Balta Gorman MONO # 1.0 103/ul Critically high 0.3-0.8 [facility] Comment on above: Performed By: #### C VDTBH #### [facility] [address] [place] [address] Dr. Balta Gorman Monocytes/100 WBC (Bld) 13.8 % Critically high 1.7-12.0 [facility] Comment on above: Performed By: #### C VDTBH #### [facility] [address] [address] [address] Balta Gorman NEUT # 3.9 103/ul Normal 1.4-6.5 [facility] Comment on above: Performed By: #### C VDTBH #### [facility] [address] [place] [address] Dr. Balta Gorman Neutrophils/100 WBC (Bld) 54.7 % Normal 43.0-75.0 [facility] Comment on above: Performed By: #### C VDTBH #### [facility] [address] [place] [address] Dr. Balta Gorman Platelet mean volume (Bld) [Entitic vol] 10.5 fL Normal 9.5-13.5 [facility] Comment on above: Performed By: #### C VDTBH #### [facility] [address] [place] [address] Dr. Balta Gorman PLT 271 103/ul Normal 150-450 [facility] Comment on above: Performed By: #### C VDTBH #### [facility] [address] [place] [address] Dr. Balta Gorman RBC 4.64 106/ul Critically low 4.70-6.10 [facility] Comment on above: Performed By: #### C VDTBH #### [facility] [address] [place] [address] Dr. Balta Gorman WBC 7.2 103/ul Normal 4.0-11.0 [facility] Comment on above: Performed By: #### C VDTBH #### [facility] [address] [place] [address] Dr. Balta Gorman GLYCOHEMOGLOBIN A1Con 2021 ADA RECOMMENDATION SEE BELOW Normal [facility] Comment on above: Result Comment: ADA RECOMMENDED LIMIT 4.0 - 6.0 ADA THERAPEUTIC TARGET < 7.0 ACTION SUGGESTED > 7.0 Performed By: #### A 1C #### [facility] [address] [place] [address] Dr. Balta Gorman Glucose [Mass/Vol] 177 mg/dL Normal [facility] Comment on above: Performed By: #### A 1C #### [facility] [address] [place] [address] Dr. Balta Gorman HbA1c (Bld) [Mass fraction] 7.8 % Critically high 4.5-6.2 [facility] Comment on above: Performed By: #### A 1C #### [facility] [address] [place] [address] Dr. Balta CAVAZOS STAINon 03-23-2022 COMMENTS NO ORGANISMS OBSERVED Normal [facility] Comment on above: Performed By: #### A FB #### [facility] [address] [place] [address] Dr. Balta Gorman DIPHTHEROIDS Normal [facility] Comment on above: Performed By: #### A FB #### [facility] [address] [place] [address] Dr. Balta Gorman EPITHELIALS Normal [facility] Comment on above: Performed By: #### A FB #### [facility] [address] [place] [address] Dr. Balta Gorman FUNGAL ELEMENTS Normal [facility] Comment on above: Performed By: #### A FB #### [facility] [address] [address] [address] Balta Gorman GRAM NEG BACILLI Normal [facility] Comment on above: Performed By: #### A FB #### [facility] [address] [place] [address] Dr. Balta CAVAZOS NEG DIPPLOCOCCI Normal [facility] Comment on above: Performed By: #### A FB #### [facility] [address] [place] [address] Dr. Balta Gorman GRAM POS BACILLI Normal [facility] Comment on above: Performed By: #### A FB #### [facility] [address] [place] [address] Dr. Balta Gorman GRAM POSITIVE COCCI Normal [facility] Comment on above: Performed By: #### A FB #### [facility] [address] [place] [address] Dr. Balta Gorman GRAM STAIN SOURCE r. 2nd toe bone- pos t irrigation Normal [facility] Comment on above: Performed By: #### A FB #### [facility] [address] [address] [address] Balta Gorman GS_DIPTH [facility] Comment on above: Performed By: #### A FB #### [facility] [address] [address] [address] Balta Gorman WBC RARE [facility] Comment on above: Performed By: #### A FB #### [facility] [address] [address] [address] Balta Gorman POINT OF CARE GLUCOSEon 03-05 Glucose [Mass/Vol] 209 mg/dL Critically high [address] [place] [address] Comment on above: Performed By: #### A FB #### [facility] [address] [place] [address] Dr. Balta Gorman Glucose [Mass/Vol] 203 mg/dL Critically high [address] [place] [address] Comment on above: Performed By: #### P OCGLUC #### [facility] [address] [place] [address] Dr. Balta Gorman Glucose [Mass/Vol] 119 mg/dL Critically high [address] [place] [address] Comment on above: Performed By: #### A FB #### [facility] [address] [place] [address] Dr. Balta Gorman Glucose [Mass/Vol] 115 mg/dL Critically high [address] [place] [address] Comment on above: Performed By: #### A FB #### [facility] [address] [address] [address] Balta Gorman PROF CHEM 8 (BAS METB)on Anion gap [Moles/Vol] 12.2 mmol/L [facility] Comment on above: Performed By: #### A FB #### [facility] [address] [place] [address] Dr. Balta Gorman Calcium [Mass/Vol] 8.1 mg/dL Critically low 8.5-10.1 [facility] Comment on above: Performed By: #### A FB #### [facility] [address] [address] [address] Balta Gorman Chloride [Moles/Vol] 104 mmol/L Normal 98-107 [facility] Comment on above: Performed By: #### A FB #### [facility] [address] [place] [address] Dr. Balta Gorman CO2 [Moles/Vol] 24.5 mmol/L Normal 21.0-32.0 [facility] Comment on above: Performed By: #### A FB #### [facility] [address] [place] [address] Dr. Balta Gorman Creatinine [Mass/Vol] 1.06 mg/dL Normal 0.70-1.30 [facility] Comment on above: Performed By: #### A FB #### [facility] [address] [place] [address] Dr. Balta Gorman EGFR-AF LIBYAN >60 Normal >=60 [facility] Comment on above: Performed By: #### A FB #### [facility] [address] [place] [address] Dr. Balta Gorman EGFR-NON AF LIBYAN >60 Normal >=60 [facility] Comment on above: Performed By: #### A FB #### [facility] [address] [place] [address] Dr. Balta Gorman Glucose [Mass/Vol] 110 mg/dL Critically high 74-106 [facility] Comment on above: Performed By: #### A FB #### [facility] [address] [place] [address] Dr. Balta Gorman Potassium [Moles/Vol] 3.7 mmol/L Normal 3.5-5.1 [facility] Comment on above: Performed By: #### A FB #### [facility] [address] [place] [address] Dr. Balta Gorman Sodium [Moles/Vol] 137 mmol/L Normal 136-145 [facility] Comment on above: Performed By: #### A FB #### [facility] [address] [place] [address] Dr. Balta Gorman Urea nitrogen [Mass/Vol] 19.0 mg/dL Critically high 7.0-18.0 [facility] Comment on above: Performed By: #### A FB #### [facility] [address] [place] [address] Dr. Balta Gorman Urea nitrogen/Creatinine [Mass ratio] 17.9 mg/mg Normal [facility] Comment on above: Performed By: #### A FB #### [facility] [address] [address] [address] Balta Gorman PROTIMEon 03-23-2022 INR Coag (PPP) [Relative time] 1.06 {INR} Normal [facility] Comment on above: Performed By: #### P TT, PT ####[facility] [address] [place], [place] [address]DrPaola Gorman INR GUIDELINES SEE BELOW Normal [facility] Comment on above: Result Comment: PORSCHE RED INR: 2.0 - 3.0 CONDITIONS NOT LISTED BELOW 2.5 - 3.5 FOR PROSTHETIC HEART VALVE REPLACEMENT 2.5 - 3.5 RECURRENT THROMBOSIS Performed By: #### P TT, PT ####[facility] [address] [place], [place] [address]DrPaola Gorman PT Coag (PPP) [Time] 11.4 s Normal 9.0-11.6 [facility] Comment on above: Performed By: #### P TT, PT ####[facility] [address] [place], [place] [address]DrPaola Gorman PTTon 03-23-2022 aPTT Coag (Bld) [Time] 33.8 s Normal 22.3-36.2 [facility] Comment on above: Performed By: #### P TT, PT ####[facility] [address] [place], [place] [address]DrPaola Gorman CBC AUTO DIFFon 03-22-2022 BASO # 0.1 103/ul Normal 0.0-0.1 [facility] Comment on above: Performed By: #### C BC ####[facility] [address] [place], [place] [address]DrPaola Gorman Basophils/100 WBC (Bld) 0.9 % Normal 0.2-2.0 [facility] Comment on above: Performed By: #### C BC ####[facility] [address] [place], [place] [address]Dr. Balta Gorman EO # 0.3 103/ul Normal 0.0-0.7 [facility] Comment on above: Performed By: #### C BC ####[facility] [address] [place], [place] [address]Dr. Balta Gorman Eosinophils/100 WBC (Bld) 3.2 % Normal 0.9-7.0 [facility] Comment on above: Performed By: #### C BC ####[facility] [address] [place], [place] [address]Dr. Balta Gorman Erythrocyte distribution width (RBC) [Ratio] 17.5 % Critically high 11.0-15.0 [facility] Comment on above: Performed By: #### C BC ####[facility] [address] [place], [place] [address]Dr. Balta Gorman Hematocrit (Bld) [Volume fraction] 39.5 % Critically low 42.0-54.0 [facility] Comment on above: Performed By: #### C BC ####[facility] [address] [place], [place] [address]Dr. Balta Gorman Hemoglobin (Bld) [Mass/Vol] 11.6 g/dL Critically low 14.0-18.0 [facility] Comment on above: Performed By: #### C BC ####[facility] [address] [place], [place] [address]Dr. Balta Gorman IG # 0.03 10e3/ul Normal 0.00-0.03 [facility] Comment on above: Performed By: #### C BC ####[facility] [address] [place], [place] [address]Dr. Balta Gorman IG % 0.3 % Normal 0.0-0.5 [facility] Comment on above: Performed By: #### C BC ####[facility] [address] [place], [place] [address]Dr. Balta Gorman LYMPH # 1.6 103/ul Normal 1.2-3.8 [facility] Comment on above: Performed By: #### C BC ####[facility] [address] [address]Dr. Balta Gorman Lymphocytes/100 WBC (Bld) 17.7 % Critically low 20.5-60.0 [facility] Comment on above: Performed By: #### C BC ####[facility] [address] [place], [place] [address]DrPaola Gorman MANUAL DIFF REQ NO Normal [facility] Comment on above: Performed By: #### C BC ####[facility] [address] [address]DrPaola Gorman MCH (RBC) [Entitic mass] 22.5 pg Critically low 25.9-34.0 [facility] Comment on above: Performed By: #### C BC ####[facility] [address] [place], [place] [address]DrPaola Gorman MCHC (RBC) [Mass/Vol] 29.4 g/dL Critically low 29.9-35.2 [facility] Comment on above: Performed By: #### C BC ####[facility] [address] [place], [place] [address]DrPaola Gorman MCV (RBC) [Entitic vol] 76.6 fL Critically low 80.0-94.0 [facility] Comment on above: Performed By: #### C BC ####[facility] [address] [place], [place] [address]DrPaola Gorman MONO # 1.0 103/ul Critically high 0.3-0.8 [facility] Comment on above: Performed By: #### C BC ####[facility] [address] [place], [place] [address]DrPaola Gorman Monocytes/100 WBC (Bld) 11.0 % Normal 1.7-12.0 [facility] Comment on above: Performed By: #### C BC ####[facility] [address] [place], [place] [address]DrPaola Gorman NEUT # 5.9 103/ul Normal 1.4-6.5 [facility] Comment on above: Performed By: #### C BC ####[facility] [address] [id number]. Aurabenja Gorman Neutrophils/100 WBC (Bld) 66.9 % Normal 43.0-75.0 [facility] Comment on above: Performed By: #### C BC ####[facility] [address] [address]DrPaola Gorman Platelet mean volume (Bld) [Entitic vol] 10.4 fL Normal 9.5-13.5 [facility] Comment on above: Performed By: #### C BC ####[facility] [address] [address]Dr. Balta Gorman PLT 319 103/ul Normal 150-450 [facility] Comment on above: Performed By: #### C BC ####[facility] [address] [address]DrPaola Gorman RBC 5.16 106/ul Normal 4.70-6.10 [facility] Comment on above: Result Comment: SLIG HT HYPOCHROMIA Performed By: #### C BC ####[facility] [address] [address]Dr. Balta Gorman WBC 8.8 103/ul Normal 4.0-11.0 [facility] Comment on above: Performed By: #### C BC ####[facility] [address] [address]Dr. Balta Gorman CULTURE BLOODon 03-22-2022 Microscopic examination of blood, culture Culture Observations: No growth at 5 days. Isolate 1 BC_BA_NA Normal [facility] Comment on above: Performed By: #### C VDTBH #### [facility] [address] [id number] Balta Gorman Microscopic examination of blood, culture Culture Observations: No growth at 5 days. Isolate 1 BC_BA_NA Normal [facility] Comment on above: Performed By: #### C VDTBH #### [facility] [address] [address] [address] Balta Gorman Covid-19 PCR (CVDTB)on 03-05 SARS-CoV-2 (COVID-19) RNA DERICK+probe Ql (Unsp spec) Not detected Normal NOT DETECTED [facility] Comment on above: Result Comment: When diagnostic testing is negative, the possibility of a false negative should be considered in the context of a patient's recent exposures and the presence of clinical signs and symptoms consistent with SARS-CoV-2. This test is not yet approved or cleared by the [place] Food and Drug Administration (FDA). This test was developed by [employer], [place], [place]. The performance characteristics of this test were validated by [facility]. The results are not intended to be used as the sole means for clinical diagnosis or patient management decisions. [facility] is authorized under Clinical [...] for this test is supported by the [place] of Health and Human Service's declaration that [...] used). Performed By: #### C VDTBH #### [facility] [address] [address] [address] Balta Gorman POINT OF CARE GLUCOSEon 03-05 Glucose [Mass/Vol] 121 mg/dL Critically high 74-106 [facility] Comment on above: Performed By: #### P OCGLUC #### [facility] [address] [address] [address] Balta Gorman Glucose [Mass/Vol] 109 mg/dL Critically high 74-106 [facility] Comment on above: Performed By: #### P OCGLUC #### [facility] [address] [place], [place] [address] Dr. Balta Gorman PROF 14(COMP METB)on 022 Albumin [Mass/Vol] 3.5 g/dL Normal 3.4-5.0 [facility] Comment on above: Performed By: #### C MP ####[facility] [address] [address]Dr. Balta Gorman Albumin/Globulin [Mass ratio] 0.8 {ratio} Normal [facility] Comment on above: Performed By: #### C MP ####[facility] [address] [address]Dr. Balta Gorman ALP [Catalytic activity/Vol] 78 U/L Normal 46-116 [facility] Comment on above: Performed By: #### C MP ####[facility] [address] [address]Dr. Balta Gorman ALT [Catalytic activity/Vol] 24 U/L Normal 16-63 [facility] Comment on above: Performed By: #### C MP ####[facility] [address] [address]Dr. Balta Gorman Anion gap [Moles/Vol] 11.9 mmol/L Normal [facility] Comment on above: Performed By: #### C MP ####[facility] [address] [address]Dr. Balta Gorman AST [Catalytic activity/Vol] 16 U/L Normal 15-37 [facility] Comment on above: Performed By: #### C MP ####[facility] [address] [address]Dr. Balta Gorman Bilirubin [Mass/Vol] 0.6 mg/dL Normal 0.2-1.0 [facility] Comment on above: Performed By: #### C MP ####[facility] [address] [address]Dr. Balta Gorman Calcium [Mass/Vol] 8.7 mg/dL Normal 8.5-10.1 [facility] Comment on above: Performed By: #### C MP ####[facility] [address] [address]Dr. Balta Gorman Chloride [Moles/Vol] 104 mmol/L Normal 98-107 [facility] Comment on above: Performed By: #### C MP ####[facility] [address] [address]Dr. Balta Gorman CO2 [Moles/Vol] 28.1 mmol/L Normal 21.0-32.0 [facility] Comment on above: Performed By: #### C MP ####[facility] [address] [id number]. Balta Gorman Creatinine [Mass/Vol] 1.24 mg/dL Normal 0.70-1.30 [facility] Comment on above: Performed By: #### C MP ####[facility] [address] [address]Dr. Aurabenja Sherif EGFR-AF LIBYAN >60 Normal >=60 [facility] Comment on above: Performed By: #### C MP ####[facility] [address] [address]Dr. Balta Sherif EGFR-NON AF LIBYAN 58 mL/min/1.73m2 Critically low >=60 [facility] Comment on above: Performed By: #### C MP ####[facility] [address] [address]Dr. Balta Gorman Globulin (S) [Mass/Vol] 4.4 g/dL Normal [facility] Comment on above: Performed By: #### C MP ####[facility] [address] [address]Dr. Balta Gorman Glucose [Mass/Vol] 205 mg/dL Critically high 74-106 [facility] Comment on above: Performed By: #### C MP ####[facility] [address] [address]Dr. Balta Gorman Potassium [Moles/Vol] 4.0 mmol/L Normal 3.5-5.1 [facility] Comment on above: Performed By: #### C MP ####[facility] [address] [address]Dr. Balta Gorman Protein [Mass/Vol] 7.9 g/dL Normal 6.4-8.2 [facility] Comment on above: Performed By: #### C MP ####[facility] [address] [place], [place] [address]Dr. Balta Gorman Sodium [Moles/Vol] 140 mmol/L Normal 136-145 [facility] Comment on above: Performed By: #### C MP ####[facility] [address] [place], [place] [address]Dr. Balta Gorman Urea nitrogen [Mass/Vol] 22.0 mg/dL Critically high 7.0-18.0 [facility] Comment on above: Performed By: #### C MP ####[facility] [address] [place], [place] [address]Dr. Balta Gorman Urea nitrogen/Creatinine [Mass ratio] 17.7 mg/mg Normal [facility] Comment on above: Performed By: #### C MP ####[facility] [address] [place], [place] [address]Dr. Balta Gorman UA (CLEAN/CATCH) SAMPLER TESTER/MICRO I F IND.on 03-22-2022 Bilirubin Ql (U) Negative Normal NEGATIVE [facility] Comment on above: Performed By: #### U ACSIND ####[facility] [address] [place], [place] [address]Dr. Balta Gorman Clarity (U) CLEAR Normal CLEAR [facility] Comment on above: Performed By: #### U ACSIND ####[facility] [address] [place], [place] [address]Dr. Balta Gorman Color (U) LT. YELLOW Normal YELLOW [facility] Comment on above: Performed By: #### U ACSIND ####[facility] [address] [place], [place] [address]Dr. Balta Gorman Glucose Ql (U) >1000 Abnormal NEGATIVE [facility] Comment on above: Performed By: #### U ACSIND ####[facility] [address] [place], [place] [address]Dr. Balta Gorman Hemoglobin Ql (U) Negative Normal NEGATIVE [facility] Comment on above: Performed By: #### U ACSIND ####[facility] [address] [place], [place] [address]Dr. Balta Gorman Ketones Ql (U) Negative Normal NEGATIVE [facility] Comment on above: Performed By: #### U ACSIND ####[facility] [address] [place], [place] [address]Dr. Balta Gorman LEUKOCYTES Negative Normal NEGATIVE [facility] Comment on above: Performed By: #### U ACSIND ####[facility] [address] [place], [place] [address]Dr. Balta Gorman Nitrite Ql (U) Negative Normal NEGATIVE [facility] Comment on above: Performed By: #### U ACSIND ####[facility] [address] [place], [place] [address]Dr. Balta Gorman pH (U) 6.0 [pH] Normal 5-9 [facility] Comment on above: Performed By: #### U ACSIND ####[facility] [address] [place], [place] [address]Dr. Balta Gorman SPEC GRAVITY 1.010 Normal 1.005-<=1.02 5 [facility] Comment on above: Performed By: #### U ACSIND ####[facility] [address] [place], [place] [address]Dr. Balta Gorman UA PROTEIN Negative Normal NEGATIVE/ TRACE [facility] Comment on above: Performed By: #### U ACSIND ####[facility] [address] [place], [place] [address]Dr. Balta Gorman UR MICRO IND NOT INDICATED Normal [facility] Comment on above: Performed By: #### U ACSIND ####[facility] [address] [place], [place] [address]Dr. Balta Sherif Urobilinogen Qn (U) 0.2 {Jose Luis'U}/dL Normal 0.2 - 1. 0 [facility] Comment on above: Performed By: #### U ACSIND ####[facility] [address] [place] [id number]. Balta Gorman XR FOOT RT MIN 3 [...] HELGA GOLDBERG Date: 2022-03-22 15:21 Normal [facility] - Chemistry and C hemistry - challengeon 03-10-2022 Cholesterol [Mass/Vol] 167\S\167 Normal 140-[address] [address] DO Work Phone: Comment on above: Chol less than 200 m g/dl low risk Chol 201-239 mg/dl borderline risk Chol 240 mg/dl and greater high risk Cholesterol in LDL [Mass/Vol] 80\S\80 Normal 0-100 [address] [place] [address] DO Work Phone: Comment on above: LDL ATP III CLASSIFI CATION LDL less than 100 mg/dL Optimal LDL 100-129 mg/dL Near or above optimal LDL 130-159 mg/dL Borderline high LDL 160-189 mg/dL High LDL greater than 189 mg/dL Very high Laboratory - Microbiology an d Antimicrobial susceptibilityon 03-10-2022 SARS-CoV-2 (COVID-19) RNA DERICK+probe Ql (Unsp spec) [address] [place] [address] DO Work Phone: No Panel Informationon 03-10 0.1\S\0.1 Normal 0-0.5 [address] [place] [address] DO Work Phone: Comment on above: PERFORMED BY:[facility] [place], [place] [phone] MEDICAL DIRECTORERLIN GUPTA M.D. 0.2\S\0.2 Normal 0.0-0.45 -[facility] 600 DO Work Phone: 0.7\S\0.7 Normal 0.0-0.8 -[facility] 600 DO Work Phone: 1.6\S\1.6 Normal . -[facility] 600 DO Work Phone: 3.8\S\3.8 Normal 1.8-7.7 -[facility] 600 DO Work Phone: 3.4\S\3.4 Normal . [facility] 600 DO Work Phone: 10.2\S\10.2 Normal . [facility] 600 DO Work Phone: 25.1\S\25.1 Normal . -[facility] 600 DO Work Phone: 59.7\S\59.7 Normal . [facility] 600 DO Work Phone: 8.6\S\8.6 Normal 6.6-10.1 -[facility] 600 DO Work Phone: 270\S\270 Normal 150-450 [facility] 600 DO Work Phone: 17.0\S\17.0 above high threshold 12.0-14.8 -[facility] 600 DO Work Phone: 31.9\S\31.9 below low threshold 32.5-35.6 -[facility] 600 DO Work Phone: 22.6\S\22.6 below low threshold 27.5-35.2 [facility] 600 DO Work Phone: 70.8\S\70.8 below low threshold 83.5-101 [facility] 600 DO Work Phone: 38.9\S\38.9 Normal 38.8-50.0 [facility] 600 DO Work Phone: 12.4\S\12.4 below low threshold 13.0-17.0 [facility] 600 DO Work Phone: 5.49\S\5.49 Normal 3.90-5.60 [facility] 600 DO Work Phone: 6.4\S\6.4 Normal 4.1-10.5 [facility] 600 DO Work Phone: 30.4\S\30.4 Normal 25.1-36.5 [facility] 600 DO Work Phone: Comment on above: PERFORMED BY:[place] [address] [address], [place] [phone] MEDICAL DIRECTORERLIN GUPTA M.D. 1.1\S\1.1 [facility] Work Phone: Comment [...] valves: 3 - 4.5 12.7\S\12.7 Normal 9.0-12.9 [facility] 600 DO Work Phone: Negative Normal Negative [facility] Work Phone: Comment on above: This is a duplicate Erum SARS Antigen (JOSE L) result to be used for statistical tracking purpose only.PERFORMED BY:[facility] [place], [place] [phone] MEDICAL DIRECTORERLIN GUPTA M.D. 22.9\S\22.9 Normal 22.0-30.0 [facility] 600 DO Work Phone: 105\S\105 Normal 95-114 [facility] 600 DO Work Phone: 4.3\S\4.3 Normal 3.5-5.1 -[facility] 600 DO Work Phone: 137\S\137 Normal 136-146 -[facility] 600 DO Work Phone: 21\S\21 below low threshold 29-71 [facility] 600 DO Work Phone: Comment on above: HDL CHOL ATP-III CLA SSIFICATION Cardiovascular Risk HDL > or equal to 60 mg/dL LOW HDL < 40 mg/dL HIGH > 60 Normal -[facility] 600 DO Work Phone: Comment on above: GFR estimated refere nce range: According to KDOQI guidelines, <60 ml/min/1.73m2 is sufficient to diagnose a patient with chronic kidney disease. 1.01\S\1.01 Normal 0.64-1.27 [facility] 600 DO Work Phone: 8.0\S\8.0 Normal <5.0 [facility] 600 DO Work Phone: Comment on above: PERFORMED BY:[facility] [place], [place] [phone] MEDICAL DIRECTORERLIN GUPTA M.D. 66\S\66 Normal [facility] 600 DO Work Phone: 328\S\328 above high threshold 35-149 [facility] 600 DO Work Phone: Comment on above: TRIG ATP III CLASSIF ICATION TRIG less than 150 mg/dL Normal TRIG 150-199 mg/dL Borderline high TRIG 200-500 mg/dL High TRIG greater than 500 mg/dL Very high Standard traceable to the Center for Disease Conrtrol and Prevention (CDC) test method. [facility] CARDIAC STRESS/REST INJE CTIONon 03-01-2022 [facility] CARDIAC STRESS/REST INJECTION Patient Name: JANICE FORD STUDY: MYOCARDIAL PERFUSION STRESS TEST WITH LEXISCAN Performing facility: [facility], [address] [place] [address], [address], [place] [address] [facility] Provider: Helga Flores DO, [facility] PCP: Dr. Vineet Agrawal Supervising provider: Ratna Elias DO, [facility] INDICATION: Angina CAD; S/P PTCA HISTORY: Gender: M; Age: 67 y/o ; Height: 185.42 cm; Weight: 106.281430 kg. High Cholesterol; CAD; Diabetes; HTN; Chest Pain; Denies smoking. Cardiac catheterization on 2021. PTCA on 2021. CABG on 1992. COMPARISON: Previous nuclear testing completed at [facility]. ACCESSION NUMBER(S): [id number]; [id number]; [id number] ORDERING CLINICIAN: HELGA FLORES TECHNIQUE: ONE DAY [...] Electronically signed by: MARGAUX CASTILLO MD Normal [facility] No Panel Informationon 03-01 Normal -[facility] 250 DO Work Phone: Complete Blood Count with Au to Diffon 01-23-2022 Basophils (Bld) [#/Vol] 0.08 10*3/uL Normal 0.00-0.20 [facility] Specialist Comment on above: Performed By: #### C BCAD #### [facility] [address] [place], [place] [id number] Basophils/100 WBC (Bld) 1.1 % Normal [facility] Comment on above: Performed By: #### C BCAD #### [facility] [address] [place], [place] [id number] Eosinophils (Bld) [#/Vol] 0.29 10*3/uL Normal 0.02-0.50 [facility] Comment on above: Performed By: #### C BCAD #### [facility] [address] [place], [place] [id number] Eosinophils/100 WBC (Bld) 4.1 % Normal [facility] Comment on above: Performed By: #### C BCAD #### [facility] [address] [place], [place] [id number] Erythrocyte distribution width (RBC) [Ratio] 17.6 % High 11.0-15.0 [facility] Comment on above: Performed By: #### C BCAD #### [facility] [address] [place], [place] [id number] Hematocrit (Bld) [Volume fraction] 41.0 % Normal 38.5-50.0 [facility] Specialist Comment on above: Performed By: #### C BCAD #### [facility] [address] [place], [place] [id number] Hemoglobin (Bld) [Mass/Vol] 11.9 g/dL Low 13.0-17.1 [facility] Specialist Comment on above: Performed By: #### C BCAD #### [facility] [address] [place], [place] [id number] Lymphocytes (Bld) [#/Vol] 1.8 10*3/uL Normal 0.9-3.9 [facility] Specialist Comment on above: Performed By: #### C BCAD #### [facility] [address] [place], [place] [id number] Lymphocytes/100 WBC (Bld) 25.1 % Normal [facility] Specialist Comment on above: Performed By: #### C BCAD #### [facility] [address] [place], [place] [id number] MCH (RBC) [Entitic mass] 21.9 pg Low 27.0-33.0 [facility] Specialist Comment on above: Performed By: #### C BCAD #### [facility] [address] [place], [place] [id number] MCHC (RBC) [Mass/Vol] 29.0 g/dL Low 32.0-36.0 [facility] Specialist Comment on above: Performed By: #### C BCAD #### [facility] [address] [place], [place] [id number] MCV (RBC) [Entitic vol] 76 fL Low 80-100 [facility] Specialist Comment on above: Performed By: #### C BCAD #### [facility] [address] [place], [place] [id number] Monocytes (Bld) [#/Vol] 0.7 10*3/uL Normal 0.2-0.9 [facility] Specialist Comment on above: Performed By: #### C BCAD #### [facility] [address] [place], [place] [id number] Monocytes/100 WBC (Bld) 9.3 % Normal [facility] Comment on above: Performed By: #### C BCAD #### [facility] [address] [place], [place] [id number] Neutrophils (Bld) [#/Vol] 4.3 10*3/uL Normal 1.5-7.8 [facility] Comment on above: Performed By: #### C BCAD #### [facility] [address] [place], [place] [id number] Neutrophils/100 WBC (Bld) 60.0 % Normal [facility] Comment on above: Performed By: #### C BCAD #### [facility] [address] [place], [place] [id number] Platelet mean volume (Bld) [Entitic vol] 10.50 fL Normal 7.50-12.50 [facility] Comment on above: Performed By: #### C BCAD #### [facility] [address] [place], [place] [id number] Platelets (Bld) [#/Vol] 306 10*3/uL Normal 140-400 [facility] Comment on above: Performed By: #### C BCAD #### [facility] [address] [place], [place] [id number] RBC (Bld) [#/Vol] 5.43 10*6/uL Normal 4.20-5.80 [facility] Comment on above: Performed By: #### C BCAD #### [facility] [address] [place], [place] [id number] RDW-SD 46.0 fL Normal 37.0-50.0 [facility] Comment on above: Performed By: #### C BCAD #### [facility] [address] [place], [place] [id number] WBC (Bld) [#/Vol] 7.1 10*3/uL Normal 3.8-11.0 [facility] Comment on above: Performed By: #### C BCAD #### [facility] [address] [place], [place] [id number] Hemoglobin A1Con 03-21-2022 EAG 182.90 Normal [facility] Comment on above: Performed By: #### A 1C #### [facility] [address] [place], [place] [id number] HbA1c (Bld) [Mass fraction] 8.0 % High 4.0-6.0 [facility] Comment on above: Performed By: #### A 1C #### [facility] [address] [place], [place] [id number] Lipid Panelon 01-23-2022 Cholesterol [Mass/Vol] 177 mg/dL Normal 125-200 [facility] Comment on above: Result Comment: Low risk < 200mg/dL Borderline risk 201-239 mg/dl High risk > or equal to 240 Performed By: #### L IPD #### [facility] [address] [place], [place] [id number] Cholesterol in HDL [Mass/Vol] 25 mg/dL Low >40 [facility] Comment on above: Result Comment: High Cardiovascular Risk HDL <40 mg/dL Low Cardiovascular Risk HDL > or equal to 60 mg/dl Performed By: #### L IPD #### [facility] [address] [place], [place] [id number] Cholesterol in LDL [Mass/Vol] 83 mg/dL Normal [facility] Comment on above: Result Comment: LDL ATP III CLASSIFICATION LDL less than 100 mg/dl Optimal LDL 100-129 mg/dl Near or above optimal LDL 130-159 Borderline high LDL 160-189 High LDL greater than 189 mg/dl Very High Performed By: #### L IPD #### [facility] [address] [place], [place] [id number] Cholesterol in VLDL [Mass/Vol] 69 mg/dL Normal [facility] Comment on above: Performed By: #### L IPD #### [facility] [address] [place], [place] [id number] Cholesterol.total/Ch olesterol in HDL [Mass ratio] 7 {ratio} Normal [facility] Comment on above: Performed By: #### L IPD #### [facility] [address] [place], [place] [id number] Triglyceride [Mass/Vol] 343 mg/dL High 30-150 [facility] Comment on above: Result Comment: TRIG ATPIII CLASSIFICATIONS TRIG less than 150 mg/dl Normal TRIG 150-199 mg/dl Borderline High TRIG 200-500 mg/dl High TRIG greather than 500 mg/dl Very High Performed By: #### L IPD #### [facility] [address] [place], [place] [id number] PSA SCREEN (MEDICARE)on 01-04 TPSA 0.405 ng/mL Normal <4.000 [facility] Comment on above: Result Comment: PSA Test Method: ECLIA/Joseph e 601 Performed By: #### P SA #### [facility] [address] [place], [place] [id number] Tobacco Screening.on 022 Fall risk assessment a) No falls within the last year [email or web address] [employer] DO Work Phone: Tobacco use status CPHS b) No [place] [address] DO Work Phone: Laboratory - Chemistry and C hemistry - challengeon 11-07-2021 Cholesterol [Mass/Vol] 183\S\183 Normal 140-200 [facility] [employer] DO Work Phone: Comment on above: Chol less than 200 m g/dl low risk Chol 201-239 mg/dl borderline risk Chol 240 mg/dl and greater high risk Cholesterol in LDL [Mass/Vol] 97\S\97 Normal 0-100 [place] [address] DO Work Phone: Comment on above: LDL ATP III CLASSIFI CATION LDL less than 100 mg/dL Optimal LDL 100-129 mg/dL Near or above optimal LDL 130-159 mg/dL Borderline high LDL 160-189 mg/dL High LDL greater than 189 mg/dL Very high Laboratory - Microbiology an d Antimicrobial susceptibilityon 11-07-2021 SARS-CoV-2 (COVID-19) RNA DERICK+probe Ql (Unsp spec) [facility] [employer] DO Work Phone: No Panel Informationon 11-07 56.2\S\56.2 Normal . [facility] 250 DO Work Phone: 8.5\S\8.5 Normal 6.6-10.1 -[facility] 250 DO Work Phone: 279\S\279 Normal 150-450 [facility] 250 DO Work Phone: 16.0\S\16.0 above high threshold 12.0-14.8 [facility] 250 DO Work Phone: 31.3\S\31.3 below low threshold 32.5-35.6 -[facility] 250 DO Work Phone: 22.7\S\22.7 below low threshold 27.5-35.2 [facility] 250 DO Work Phone: 3.5\S\3.5 Normal 1.8-7.7 [facility] 250 DO Work Phone: 0.1\S\0.1 Normal 0.0-0.2 [facility] 250 DO Work Phone: Comment on above: PERFORMED BY:[place] [address] [address] [place], [place] [phone] MEDICAL DIRECTORERLIN GUPTA M.D. 1.4\S\1.4 Normal . [facility] 250 DO Work Phone: 4.0\S\4.0 Normal . [facility] 250 DO Work Phone: 10.2\S\10.2 Normal . [facility] 250 DO Work Phone: 28.2\S\28.2 Normal . [facility] 250 DO Work Phone: 0.2\S\0.2 Normal 0.0-0.45 -[facility] 250 DO Work Phone: 0.6\S\0.6 Normal 0.0-0.8 [facility] 250 DO Work Phone: 1.7\S\1.7 Normal 1.00-4.8 [facility] 250 DO Work Phone: 72.3\S\72.3 below low threshold 83.5-101 [facility] 250 DO Work Phone: 39.8\S\39.8 Normal 38.8-50.0 [facility] 250 DO Work Phone: 12.5\S\12.5 below low threshold 13.0-17.0 [facility] 250 DO Work Phone: 5.50\S\5.50 Normal 3.90-5.60 [facility] 250 DO Work Phone: 6.2\S\6.2 Normal 4.1-10.5 [facility] 250 DO Work Phone: 34.4\S\34.4 Normal 25.1-36.5 [facility] 250 DO Work Phone: Comment on above: PERFORMED BY:[place] [address] [address], [place] [phone] MEDICAL DIRECTORERLIN GUPTA M.D. 1.1\S\1.1 [facility] Work Phone: Comment on [...] 3 - 4.5 12.2\S\12.2 Normal 9.0-12.9 [facility] 250 DO Work Phone: Negative Normal Negative -[facility] 250 DO Work Phone: Comment on above: This is a duplicate Erum SARS Antigen (JOSE L) result to be used for statistical tracking purpose only.PERFORMED BY:[facility] [place], [place] [id number] MEDICAL DIRECTORERLIN GUPTA M.D. 24.2\S\24.2 Normal 22.0-30.0 [facility] 250 DO Work Phone: 101\S\101 Normal 95-114 [facility] 250 DO Work Phone: 4.5\S\4.5 Normal 3.5-5.1 [facility] 250 DO Work Phone: 139\S\139 Normal 136-146 [facility] 250 DO Work Phone: 23\S\23 Normal 9-23 -[facility] 250 DO Work Phone: > 60 Normal [facility] 250 DO Work Phone: Comment on above: GFR estimated refere nce range: According to KDOQI guidelines, <60 ml/min/1.73m2 is sufficient to diagnose a patient with chronic kidney disease. 1.14\S\1.14 Normal 0.64-1.27 [facility] 250 DO Work Phone: 9.2\S\9.2 Normal <5.0 [facility] 250 DO Work Phone: Comment on above: PERFORMED BY:[facility] [place] [id number] MEDICAL DIRECTORERLIN GUPTA M.D. 66\S\65 Normal [facility] 250 DO Work Phone: 329\S\329 above high threshold 35-149 [facility] 250 DO Work Phone: Comment on above: TRIG ATP III CLASSIF ICATION TRIG less than 150 mg/dL Normal TRIG 150-199 mg/dL Borderline high TRIG 200-500 mg/dL High TRIG greater than 500 mg/dL Very high Standard traceable to the Center for Disease Conrtrol and Prevention (CDC) test method. 20\S\20 below low threshold 29-71 [facility] 250 DO Work Phone: Comment on above: HDL CHOL ATP-III CLA SSIFICATION Cardiovascular Risk HDL > or equal to 60 mg/dL LOW HDL < 40 mg/dL HIGH [facility] CARDIAC STRESS/REST INJE CTIONon 10-12-2021 [facility] CARDIAC STRESS/REST INJECTION Patient Name: JANICE FORD STUDY: MYOCARDIAL PERFUSION STRESS TEST WITH LEXISCAN Performing facility: [facility], [address] [place] [address], [address], [address] Provider: [facility], [facility] PCP: Dr. Vineet Agrawal Supervising provider: Erika Osborne MD, [facility] INDICATION: CAD; HISTORY: Gender: M; Age: 66 y/o ; Height: 185.42 cm; Weight: 106.784996 kg. High Cholesterol; CAD; Diabetes; HTN; Chest Pain; Denies smoking. Cardiac catheterization on 2014. PTCA on 2014. COMPARISON: Previous nuclear testing completed at [facility]. ACCESSION NUMBER(S): [id number]; [id number]; [id number] ORDERING CLINICIAN: HELGA FLORES TECHNIQUE: ONE DAY [...] Electronically signed by: ERIKA OSBORNE MD Normal [facility] No Panel Informationon 10-12 Normal [facility] 600 DO Work Phone: Quick Strepon 10-10-2021 S. pyogenes Org specific cx Ql (Throat) Negative [facility] [employer] Other Quick Strep [facility] [employer] Other Tobacco Screening.on 021 Fall risk assessment a) No falls within the last year [facility] 250 DO Work Phone: Tobacco use status CPHS b) No [facility] 250 DO Work Phone: Vital Signs Date Time Vital Sign Value Performing Clinician Facility 02-23-2025 09:20-0400 Diastolic blood pressure 86 mm[Hg] Svetlana 1 [facility] 02-23-2025 09:20-0400 Heart rate 76 /min Svetlana 1 [facility] 02-23-2025 09:20-0400 Systolic blood pressure 136 mm[Hg] Svetlana 1 [facility] 01-29-2025 08:49-0400 Body height 185.4 cm Latha Caicedo PA Work Phone: [facility] 01-29-2025 08:49-0400 Body mass index (BMI) [Ratio] 28.1 kg/m2 Latha Caicedo PA Work Phone: [facility] 01-29-2025 08:49-0400 Body temperature 97.3 [degF] Latha Caicedo PA Work Phone: [facility] 01-29-2025 08:49-0400 Body weight 96.62 kg Latha Caicedo PA Work Phone: [facility] 01-29-2025 08:49-0400 Diastolic blood pressure 72 mm[Hg] Latha Caicedo PA Work Phone: [facility] 01-29-2025 08:49-0400 Heart rate 76 /min Latha Caicedo PA Work Phone: [facility] 01-29-2025 08:49-0400 SaO2% (BldA) [Mass fraction] 96 % Latha Caicedo PA Work Phone: [facility] 01-29-2025 08:49-0400 Systolic blood pressure 130 mm[Hg] Latha Caicedo PA Work Phone: [facility] 01-28-2025 10:05-0400 Body height 185.4 cm Martin Elias DO Work Phone: [facility] 01-28-2025 10:05-0400 Body mass index (BMI) [Ratio] 28.68 kg/m2 Martin Elias DO Work Phone: [facility] 01-28-2025 10:05-0400 Body weight 98.61 kg Martin Elias DO Work Phone: [facility] 01-28-2025 10:05-0400 Diastolic blood pressure 66 mm[Hg] Martin Elias DO Work Phone: [facility] 01-28-2025 10:05-0400 Heart rate 82 /min Martin Elias DO Work Phone: [facility] 01-28-2025 10:05-0400 Systolic blood pressure 116 mm[Hg] Martin Elias DO Work Phone: [facility] 12-04-2024 11:36-0500 Body height 185.4 cm Joyce Evert 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 Work Phone: [facility] 12-04-2024 11:36-0500 Body mass index (BMI) [Ratio] 28.23 kg/m2 Joyce Geney 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 Work Phone: [facility] 12-04-2024 11:36-0500 Body temperature 98.01 [degF] Joyce Geney 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 Work Phone: [facility] 12-04-2024 11:36-0500 Body weight 97.07 kg Joyce Geney 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 Work Phone: [facility] 12-04-2024 11:36-0500 Diastolic blood pressure 78 mm[Hg] Joyce Geney 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 Work Phone: [facility] 12-04-2024 11:36-0500 Heart rate 62 /min Joyce Millsmartinez 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 Work Phone: [facility] 12-04-2024 11:36-0500 SaO2% (BldA) [Mass fraction] 99 % Joyce Geney 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 Work Phone: [facility] 12-04-2024 11:36-0500 Systolic blood pressure 120 mm[Hg] Joyce Geney 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 Work Phone: [facility] 12-04-2024 11:15-0500 Body height 185.4 cm Nitish Agrawal DO Work Phone: [facility] 12-04-2024 11:15-0500 Body mass index (BMI) [Ratio] 28.23 kg/m2 Nitish Agrawal DO Work Phone: [facility] 12-04-2024 11:15-0500 Body temperature 98.01 [degF] Nitish Agrawal DO Work Phone: [facility] 12-04-2024 11:15-0500 Body weight 97.07 kg Nitish Agrawal DO Work Phone: [facility] 12-04-2024 11:15-0500 Diastolic blood pressure 78 mm[Hg] Nitish Agrawal DO Work Phone: [facility] 12-04-2024 11:15-0500 Heart rate 62 /min Nitish Agrawal DO Work Phone: [facility] 12-04-2024 11:15-0500 SaO2% (BldA) [Mass fraction] 99 % Nitish Agrawal DO Work Phone: [facility] 12-04-2024 11:15-0500 Systolic blood pressure 120 mm[Hg] Nitish Agrawal DO Work Phone: [facility] 12-01-2024 09:09-0500 Body height 185.4 cm Lashaun Petznick DO Work Phone: [facility] 12-01-2024 09:09-0500 Body mass index (BMI) [Ratio] 28.5 kg/m2 Lashaun Petznick DO Work Phone: [facility] 12-01-2024 09:09-0500 Body temperature 98.29 [degF] Lashaun Petznick DO Work Phone: [facility] 12-01-2024 09:09-0500 Body weight 97.98 kg Lashaun Petznick DO Work Phone: [facility] 12-01-2024 09:09-0500 Diastolic blood pressure 82 mm[Hg] Lashaun Petznick DO Work Phone: [facility] 12-01-2024 09:09-0500 Heart rate 83 /min Lashaun Petznick DO Work Phone: [facility] 12-01-2024 09:09-0500 SaO2% (BldA) [Mass fraction] 96 % Lashaun Petznick DO Work Phone: [facility] 12-01-2024 09:09-0500 Systolic blood pressure 140 mm[Hg] Lashaun Petznick DO Work Phone: [facility] 09-01-2024 09:14-0400 Body height 185.4 cm Lashaun Petznick DO Work Phone: [facility] 09-01-2024 09:14-0400 Body mass index (BMI) [Ratio] 29.5 kg/m2 Lashaun Petznick DO Work Phone: [facility] 09-01-2024 09:14-0400 Body temperature 96.6 [degF] Lashaun Petznick DO Work Phone: [facility] 09-01-2024 09:14-0400 Body weight 101.42 kg Lashaun Petznick DO Work Phone: [facility] 09-01-2024 09:14-0400 Diastolic blood pressure 72 mm[Hg] Lashaun Petznick DO Work Phone: [facility] 09-01-2024 09:14-0400 Heart rate 69 /min Lashaun Petznick DO Work Phone: [facility] 09-01-2024 09:14-0400 SaO2% (BldA) [Mass fraction] 96 % Lashaun Petznick DO Work Phone: [facility] 09-01-2024 09:14-0400 Systolic blood pressure 124 mm[Hg] Lashaun Petznick DO Work Phone: [facility] 06-16-2024 15:30-0400 Body height 185.4 cm Nitish Agrawal DO Work Phone: [facility] 06-16-2024 15:30-0400 Body mass index (BMI) [Ratio] 29.42 kg/m2 Ntiish Agrawal DO Work Phone: [facility] [facility] 06-16-2024 15:30-0400 Body temperature 98.29 [degF] Nitish Agrawal DO Work Phone: [facility] 06-16-2024 15:30-0400 Body weight 101.15 kg Nitish Agrawal DO Work Phone: [facility] 06-16-2024 15:30-0400 Diastolic blood pressure 80 mm[Hg] Nitish Agrawal DO Work Phone: [facility] 06-16-2024 15:30-0400 Heart rate 80 /min Nitish Agrawal DO Work Phone: [facility] 06-16-2024 15:30-0400 Systolic blood pressure 122 mm[Hg] Nitish Agrawal DO Work Phone: [facility] 01-29-2024 14:36-0400 Body height 185.4 cm Martin Elias DO Work Phone: [facility] 01-29-2024 14:36-0400 Body mass index (BMI) [Ratio] 29.69 kg/m2 Martin Elias DO Work Phone: [facility] 01-29-2024 14:36-0400 Body weight 102.06 kg Martin Elias DO Work Phone: [facility] 01-29-2024 14:36-0400 Diastolic blood pressure 70 mm[Hg] Martin Elias DO Work Phone: [facility] 01-29-2024 14:36-0400 Heart rate 86 /min Martin Elias DO Work Phone: [facility] 01-29-2024 14:36-0400 Systolic blood pressure 138 mm[Hg] Martin Elias DO Work Phone: [facility] 05-10-2023 12:10-0400 Body height 185.42 cm Barbara Ellis Other [employer] Other 05-10-2023 12:10-0400 Body mass index (BMI) [Ratio] 30.26 kg/m2 aBrbara Ellis Other [employer] Other 05-10-2023 12:10-0400 Body temperature 97.8 [degF] Barbara Ellis Other [employer] Other 05-10-2023 12:10-0400 Body weight 104.06 kg Barbara Ellis Other [employer] Other 05-10-2023 12:10-0400 Respiratory rate 18 /min Barbara Ellis Other [employer] Other 05-10-2023 12:10-0400 SaO2% (BldA) [Mass fraction] 97 % Barbara Ellis Other [employer] Other 01-23-2023 11:01-0400 Body height 185.42 cm Nitish Agrawal Work Phone: [facility] [facility] DO Work Phone: 01-23-2023 11:01-0400 Body mass index (BMI) [Ratio] 30.08 kg/m2 Nitish Agrawal Work Phone: [facility] [facility] DO Work Phone: 01-23-2023 11:01-0400 Body surface area Derived from formula 2.28 m2 Nitish Agrawal Work Phone: [facility] [facility] DO Work Phone: 01-23-2023 11:01-0400 Body weight 103.42 kg Nitish Agrawal Work Phone: [facility] 250 DO Work Phone: 01-23-2023 11:01-0400 Diastolic blood pressure 60 mm[Hg] Nitish Agrawal Work Phone: [facility] [facility] DO Work Phone: 01-23-2023 11:01-0400 Heart rate 60 /min Nitish Agrawal Work Phone: [facility] [facility] DO Work Phone: 01-23-2023 11:01-0400 Systolic blood pressure 108 mm[Hg] Nitish Agrawal Work Phone: [facility] 250 DO Work Phone: 05-01-2022 09:28-0400 Body height 185.42 cm Nitish Agrawal Work Phone: [facility] 250 DO Work Phone: 05-01-2022 09:28-0400 Body mass index (BMI) [Ratio] 29.42 kg/m2 Nitish Agrawal Work Phone: [facility] 250 DO Work Phone: 05-01-2022 09:28-0400 Body surface area Derived from formula 2.25 m2 Nitish Agrawal Work Phone: [facility] 250 DO Work Phone: 05-01-2022 09:28-0400 Body weight 101.15 kg Nitish Agrawal Work Phone: [facility] 250 DO Work Phone: 05-01-2022 09:28-0400 Diastolic blood pressure 50 mm[Hg] Nitish Agrawal Work Phone: [facility] 250 DO Work Phone: 05-01-2022 09:28-0400 Heart rate 80 /min Nitish Agrawal Work Phone: [facility] 250 DO Work Phone: 05-01-2022 09:28-0400 Systolic blood pressure 80 mm[Hg] Nitish Agrawal Work Phone: [facility] 250 DO Work Phone: 03-01-2022 07:30-0400 40 1 Nitish Agrawal Work Phone: [facility] 600 DO Work Phone: Comment on above: [id number] 11-22-2021 10:31-0500 Body height 182.88 cm Nitish Agrawal Work Phone: [facility] 250 DO Work Phone: 11-22-2021 10:31-0500 Body mass index (BMI) [Ratio] 30.38 kg/m2 Nitish Agrawal Work Phone: [facility] 250 DO Work Phone: 11-22-2021 10:31-0500 Body surface area Derived from formula 2.24 m2 Nitish Agrawal Work Phone: [facility] 250 DO Work Phone: 11-22-2021 10:31-0500 Body weight 101.61 kg Nitish Agrawal Work Phone: [facility] 250 DO Work Phone: 11-22-2021 10:31-0500 Diastolic blood pressure 72 mm[Hg] Nitish Agrawal Work Phone: [facility] 250 DO Work Phone: 11-22-2021 10:31-0500 Heart rate 66 /min Nitish Agrawal Work Phone: [facility] 250 DO Work Phone: 11-22-2021 10:31-0500 Systolic blood pressure 124 mm[Hg] Nitish Agrawal Work Phone: [facility] 250 DO Work Phone: 10-10-2021 10:00-0500 Body height 185.42 cm Jaelyn Espinal Other [employer] Other 10-10-2021 10:00-0500 Body temperature 97.5 [degF] Jaelyn Espinal Other [employer] Other 10-10-2021 10:00-0500 SaO2% (BldA) [Mass fraction] 99 % Jaelyn Espinal Other [facility] Other 09-27-2021 09:48-0500 Body height 182.88 cm Nitish Agrawal Work Phone: [facility] 250 DO Work Phone: 09-27-2021 09:48-0500 Body mass index (BMI) [Ratio] 30.65 kg/m2 Nitish Agrawal Work Phone: [facility] 250 DO Work Phone: 09-27-2021 09:48-0500 Body surface area Derived from formula 2.24 m2 Nitish Agrawal Work Phone: [facility] 250 DO Work Phone: 09-27-2021 09:48-0500 Body weight 102.51 kg Nitish Agrawal Work Phone: [facility] 250 DO Work Phone: 09-27-2021 09:48-0500 Diastolic blood pressure 59 mm[Hg] Nitish Agrawal Work Phone: [facility] 250 DO Work Phone: 09-27-2021 09:48-0500 Heart rate 73 /min Nitish Agrawal Work Phone: [facility] 250 DO Work Phone: 09-27-2021 09:48-0500 Systolic blood pressure 129 mm[Hg] Nitish Agrawal Work Phone: [facility] 250 DO Work Phone: 09-27-2021 09:48-0500 46 1 Nitish Agrawal Work Phone: [facility] [facility] [place] Work Phone: Comment on above: [id number] Encounters Encounter Date Encounter Type Care Provider Facility Start: 05-24-2025 End: 05-25-2025 Refill Latha Caicedo PA Work Phone: [facility] 230 Comment on above: Anxiety Start: 05-20-2025 End: 05-20-2025 Clinisync Result Encounter Generic External Data Provider [facility] External Department Unsolicited Start: 05-20-2025 End: 05-20-2025 Clinisync Result Encounter Generic External Data Provider [facility] External Department Unsolicited Start: 05-19-2025 End: 05-19-2025 ambulatory Nisha Núñez [facility] Work Phone: Start: 05-19-2025 End: 05-19-2025 Departed Referred Nisha [facility] DP MS -LAB Path Spec Luis F [...] 02-23-2025 Subsequent hospital visit by physician Svetlana Garrett [facility] Room [facility] Comment on above: Arteriosclerotic car diovascular disease (ASCVD); History of coronary artery bypass graft; Status post angioplasty; Angina pectoris; Palpitations; Tachycardia Start: 02-23-2025 End: 02-23-2025 ambulatory [facility] Start: 01-30-2025 End: 01-30-2025 ambulatory [facility] Start: 01-29-2025 End: 01-29-2025 Bamboo flowsheet [...] End: 01-28-2025 Office outpatient visit 40 minutes [facility] DO Work Phone: [facility] [...] ischemic cardiomyopathy Start: 01-28-2025 End: 01-28-2025 ambulatory [facility] Start: 12-04-2024 End: 12-04-2024 Bamboo flowsheet Nitish Agrawal DO Work Phone: [facility] 230 Start: 12-04-2024 End: 12-04-2024 Bamboo flowsheet Nitish Agrawal DO [facility] Start: 12-04-2024 End: 12-04-2024 Assay of hemosiderin, quant Joyce Loyd 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 Work Phone: [facility] Start: 12-04-2024 End: 12-04-2024 Patient encounter procedure Joyce Loyd 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 Work Phone: [facility] 230 Comment on above: Routine general medi [...] 25 minutes Nitish Agrawal DO Work Phone: [facility] Comment on above: Hypothyroidism (acqu ired) (CMS/HCC) (Primary Dx) Start: 12-04-2024 End: 12-04-2024 ambulatory JOYCE LOYD Not Available Start: 12-01-2024 End: 12-01-2024 Office outpatient visit 25 minutes Lashaun Bradley DO Work Phone: [facility] 230 Comment on above: Type 2 diabetes lisandro itus with other circulatory complications (CMS/HCC) (Primary Dx); Type 2 diabetes mellitus with stage 3a chronic kidney disease, without long-term current use of insulin (HCC) (CMS/HCC); Preventative health care; Screening for prostate cancer Start: 12-01-2024 End: 12-01-2024 Patient encounter status Lashaun Bradley DO Work Phone: [facility] Start: 12-01-2024 End: 12-01-2024 ambulatory LASHAUN BRADLEY Not Available Start: 09-01-2024 End: 09-01-2024 Office outpatient visit 25 minutes Lashaun Bradley DO Work Phone: [facility] 230 Comment on above: Type 2 diabetes lisandro itus with other circulatory complications (CMS/HCC) Start: 09-01-2024 End: 09-01-2024 ambulatory LASHAUN BRADLEY Not Available Start: 08-29-2024 End: 08-29-2024 Telephone encounter Lashaun Bradley DO Work Phone: [facility] Start: 06-27-2024 End: 06-27-2024 Bamboo flowsheet [facility] Work Phone: [facility] Start: 06-27-2024 End: 06-27-2024 Bamboo flowsheet [facility] Work Phone: [facility] Start: 06-27-2024 End: 06-27-2024 Office outpatient new 45 minutes [employer] PA Work Phone: [facility] Comment on above: Other seborrheic matthew matitis (Primary Dx); Acrochordon; Other specified erythematous conditions; Inflamed seborrheic keratosis Start: 06-27-2024 End: 06-27-2024 ambulatory BARI MONTEMAYOR Not Available Start: 06-16-2024 End: 06-16-2024 ambulatory NITISH AGRAWAL Not Available Start: 06-16-2024 End: 06-16-2024 Office outpatient visit 25 minutes Nitish Agrawal DO Work Phone: [facility] 230 Comment on above: Hypothyroidism (acqu [...] 25 minutes Martin Elias DO Work Phone: [facility] Comment on above: Arteriosclerotic car diovascular disease (ASCVD); History of coronary artery bypass graft; Multiple vessel coronary artery disease; Status post angioplasty; Hypertension, unspecified type; Mixed hyperlipidemia; Other specified diabetes mellitus with other specified complication, with long-term current use of insulin ([facility]); BMI 29.0-29.9,adult; Never smoked tobacco Start: 05-10-2023 End: 05-10-2023 ambulatory Barbara Ellis Other [employer] Other Start: 05-10-2023 Office outpatient vi sit 15 minutes Barbara Ellis [facility] [place] Start: 03-19-2023 End: 03-20-[address] NITISH AGRAWAL Facility:H1 Start: 03-05-2023 Rx Renewal Nitish Agrawal Work Phone: [facility] 250 DO Work Phone: Start: 03-05-2023 End: 03-06-[address] NITISH AGRAWAL Facility:[facility] Start: 02-13-2023 End: 02-14-[address] NITISH AGRAWAL Facility:[facility]1 Start: 01-23-2023 Office outpatient vi sit 15 minutes Nitish Agrawal Work Phone: [facility] 250 DO Work Phone: Start: 01-23-[address] Nitish Agrawal Facility:[id number] Start: 11-28-2022 End: 11-29-[address] NITISH AGRAWAL Facility:[facility]1 Start: 11-13-2022 End: 11-14-2022 ambulatory NISHA FARRAR Facility:[facility]1 Start: 10-24-2022 End: 10-25-2022 ambulatory NISHA FARRAR Facility:[facility]1 Start: 07-18-2022 End: 07-19-2022 ambulatory NISHA FARRAR Facility:[facility]1 Start: 07-03-2022 End: 07-04-2022 ambulatory NISHA FARRAR Facility:[facility]1 Start: 06-20-2022 End: 06-21-2022 ambulatory NISHA FARRAR Facility:[facility]1 Start: 06-13-2022 Encounter for preprocedural laboratory examination NISHA FARRAR [facility] Start: 06-12-2022 End: 06-12-2022 ambulatory NISHA [...] sit 25 minutes Nitish Agrawal Work Phone: [facility] 250 DO Work Phone: Start: 05-01-2022 ambulatory [...] Patient encounter procedure Nitish Agrawal Work Phone: [facility] 250 DO Work Phone: Start: 03-14-2022 [facility], Provider: Margaux Castillo, Status: Pen, Time: 12:00 PM Nitish Agrawal Work Phone: [facility] 250 DO Work Phone: Start: 03-13-2022 Chart Update Nitish Agrawal Work Phone: [facility] 250 DO Work Phone: Start: 03-10-2022 Chart Update Nitish Agrawal Work Phone: [facility] 600 DO Work Phone: Start: 12-14-2021 Rx Renewal Nitish Agrawal Work Phone: [facility] 250 DO Work Phone: Start: 11-22-2021 Office outpatient vi sit 25 minutes Nitish Agrawal Work Phone: [facility] 250 DO Work Phone: Start: 11-09-2021 [facility], Provider: Martin Elias, Status: Pen, Time: 1:00 PM Nitish Agrawal Work Phone: [facility] 250 DO Work Phone: Start: 11-08-2021 Chart Update Nitish Agrawal Work Phone: [facility] 250 DO Work Phone: Start: 10-18-2021 Telephone encounter Nitish luz Work Phone: [facility] 600 DO Work Phone: Start: 10-14-2021 Chart Update Nitish Agrawal Work Phone: [facility] 600 DO Work Phone: Start: 10-12-2021 Patient encounter procedure Nitish Agrawal Work Phone: [facility] [facility] [place] Work Phone: Start: 10-10-2021 End: 10-10-2021 ambulatory Jaelyn Jonesault Other [facility] Other Start: 10-10-2021 Office outpatient vi sit 15 minutes Jaelyn Espinal [facility] Start: 09-28-2021 AUDIT Nitish Agrawal Work Phone: [facility] [facility] [place] Work Phone: Start: 09-27-2021 Office outpatient vi sit 25 minutes Nitish Agrawal Work Phone: -[facility] 250 DO Work Phone: Start: 04-11-2017 End: 04-12-2017 Ambulatory [id number] MAILE AGRAWAL Facility:[facility] Procedures Date Procedure Procedure Detail Performing Clinician [...] 12/07/2025 10:00 AM EST Office Visit [facility] [address] [place] [address] Joyce Loyd, LAZARO [address] [place] [address] [facility] 230 Start: 12-04-2025 Medicare Annual Wellness (AWV) Medicare Annual Wellness (AWV) [facility] Start: 12-01-2025 Lipid panel Lipid Panel [facility] Start: 12-01-2025 Thyroid stimulating hormone measurement TSH Level [facility] Start: 12-01-2025 Urine screening for protein Diabetes: Urine Protein Screening [facility] Start: 09-21-2025 End: 09-21-2025 Patient encounter procedure 09/21/2025 8:30 AM EST Office Visit [facility] [address] [place] [phone] Lashaun Bradley, DO [address] [place] [address] [facility] 230 Start: 08-04-2025 End: 08-04-2025 Patient encounter procedure 08/04/2025 11:10 AM EDT Office Visit [facility] [address] [place] [address] Martin Elias, DO [address] [place] [address] [facility] Start: 07-06-2025 Influenza vaccination Influenza Vaccine (#1) [facility] Start: 06-27-2025 Hemoglobin A1c measurement Diabetes: Hemoglobin A1C [facility] Start: 03-27-2025 Screening for malignant neoplasm of colon [facility] Start: 03-27-2025 End: 03-27-2025 Patient encounter procedure 03/27/2025 8:45 AM EDT Office Visit [facility] [address] [place] [address] Lashaun Bradley, DO [address] [place] [address] [facility] 230 Start: 03-12-2025 End: 03-12-2025 Patient encounter procedure 03/12/2025 8:00 AM EDT Office Visit [facility] [address] [place] [phone] Latha Caicedo, PA [address] [place] [address] [facility] 230 Start: 03-01-2025 Hemoglobin A1c measurement Diabetes: Hemoglobin A1C [facility] Start: 02-01-2025 COVID-19 Vaccine ( season) COVID-19 Vaccine ( season) [facility] Start: 01-29-2025 End: 01-29-2025 Patient encounter procedure 01/29/2025 8:40 AM EDT [facility] [address] [place] [phone] Latha Caicedo PA [address] [place] [address] Arrived [facility] 230 Comment on above: Arrived Start: 01-28-2025 End: 01-28-2026 Basic metabolic 2000 panel - Serum or Plasma Basic Metabolic Panel Lab Routine Arteriosclerotic cardiovascular disease (ASCVD) Expected: 01/28/2025 (Approximate), Expires: 01/28/2026 [facility] Work Phone: Comment on above: Expected: 01/28/2025 (Approximate), Expi res: 01/28/2026 Start: 01-28-2025 End: 01-28-2026 C reactive protein [Mass/volume] in Serum or Plasma by High sensitivity method C-Reactive Protein, High Sensitivity Lab Routine Arteriosclerotic cardiovascular disease (ASCVD) Expected: 01/28/2025 (Approximate), Expires: 01/28/2026 [facility] Work Phone: Comment on above: Expected: 01/28/2025 (Approximate), Expi res: 01/28/2026 Start: 01-28-2025 End: 01-28-2026 Holter monitor study Holter Or Event Programming Engineer Cardiac Services Routine Angina pectoris Palpitations Tachycardia Expected: 01/28/2025, Expires: 01/28/2026 [facility] Service Area Work Phone: Comment on above: Expected: 01/28/2025, Expires: Start: 01-28-2025 End: 01-28-2026 Natriuretic peptide B [Mass/volume] in Blood B-Type Natriuretic Peptide Lab Routine Arteriosclerotic cardiovascular disease (ASCVD) ACC/AHA stage C congestive heart failure due to ischemic cardiomyopathy Expected: 01/28/2025 (Approximate), Expires: 01/28/2026 [facility] Work Phone: Comment on above: Expected: 01/28/2025 (Approximate), Expi res: 01/28/2026 Start: 01-28-2025 End: 01-28-2027 NM Heart Perfusion W stress and W radionuclide IV Nuclear Stress Test Cardiac Nuclear Medicine Routine 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 Status post angioplasty Angina pectoris Palpitations Tachycardia Expected: 01/28/2025 (Approximate), Expires: 01/28/2027 [facility] Work Phone: Comment on above: Expected: 01/28/2025 (Approximate), Expi res: 01/28/2027 Start: 01-28-2025 End: 01-28-2025 Patient encounter procedure 01/28/2025 9:50 AM EDT Office Visit [facility] [address] [place] [phone] Martin Elias, DO [address] [place] [address] [facility] Start: 12-04-2024 End: 12-04-2024 Patient encounter procedure 12/04/2024 11:20 AM EST Office Visit [facility] [address] [place] [phone] Nitish Agrawal DO [address] [place] [address] Arrived [facility] 230 Comment on above: Arrived Start: 12-02-2024 Hemoglobin A1c measurement Diabetes: Hemoglobin A1C [facility] Start: 12-01-2024 End: 12-01-2025 Prostate specific Ag [Mass/volume] in Serum or Plasma PSA Lab Routine Screening for prostate cancer Expected: 12/01/2024 (Approximate), Expires: 12/01/2025 [facility] Comment on above: Expected: 12/01/2024 (Approximate), Expi res: 12/01/2025 Start: 12-01-2024 End: 12-01-2024 Patient encounter procedure 12/01/2024 9:15 AM EST Office Visit [facility] [address] [place] [phone] Lashaun Bradley, DO [address] [place] [address] [facility] 230 Start: 09-02-2024 Hemoglobin A1c measurement Diabetes: Hemoglobin A1C [facility] Start: 09-01-2024 End: 09-01-2024 Patient encounter procedure 09/01/2024 9:15 AM EDT Office Visit [facility] [address] [place] [phone] Lashanu Bradley, DO [address] [place] [address] [facility] 230 Start: 08-09-2024 Urine screening for protein Diabetes: Urine Protein Screening [facility] Start: 07-06-2024 Influenza vaccination Influenza Vaccine (#1) [facility] Start: 06-27-2024 Glaucoma screening Diabetes: Retinopathy Screening [facility] Start: 06-27-2024 End: 06-27-2024 Patient encounter procedure 06/27/2024 8:50 AM EDT Office Visit [facility] [address] [place] [phone] Bari Chowdhury PA [address] [place] [address] Arrived [facility] Comment on above: Arrived Start: 01-29-2024 End: 01-28-2025 Alanine aminotransferase [Enzymatic activity/volume] in Serum or Plasma by With P-5'-P Alanine Aminotransferase Lab Routine 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 Multiple vessel coronary artery disease Hypertension, unspecified type Mixed hyperlipidemia Expected: 01/29/2024 (Approximate), Expires: 01/28/2025 [facility] Work Phone: Comment on above: Expected: 01/29/2024 (Approximate), Expi res: 01/28/2025 Start: 01-29-2024 End: 01-28-2025 Aspartate aminotransferase [Enzymatic activity/volume] in Serum or Plasma by With P-5'-P Aspartate Aminotransferase Lab Routine 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 Multiple vessel coronary artery disease Hypertension, unspecified type Mixed hyperlipidemia Expected: 01/29/2024 (Approximate), Expires: 01/28/2025 [facility] Work Phone: Comment on above: Expected: 01/29/2024 (Approximate), Expi res: 01/28/2025 Start: 01-29-2024 End: 01-28-2025 C reactive protein [Mass/volume] in Serum or Plasma by High sensitivity method C-Reactive Protein, High Sensitivity Lab Routine 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 Multiple vessel coronary artery disease Hypertension, unspecified type Mixed hyperlipidemia Expected: 01/29/2024 (Approximate), Expires: 01/28/2025 [facility] Work Phone: Comment on above: Expected: 01/29/2024 (Approximate), Expi res: 01/28/2025 Start: 01-29-2024 End: 01-28-2025 Lipid 1996 panel - Serum or Plasma Lipid Panel Lab Routine 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 Multiple vessel coronary artery disease Hypertension, unspecified type Mixed hyperlipidemia Expected: 01/29/2024 (Approximate), Expires: 01/28/2025 [facility] Service Area Work Phone: Comment on above: Expected: 01/29/2024 (Approximate), Expi res: 01/28/2025 Start: 01-24-2024 [facility], Provider: Martin Elias, Status: Pen, Time: 9:30 AM [facility], Provider: Martin Elias, Status: Fidencio, Time: 9:30 AM [facility] [facility] DO Work Phone: Start: 01-23-2023 Medicare Annual Wellness (AWV) Medicare Annual Wellness (AWV) [facility] Start: 11-16-2022 [facility], Provider: Martin Elias, Status: Pen, Time: 10:20 AM [facility], Provider: Martin Elias, Status: Pen, Time: 10:20 AM [facility] 250 DO Work Phone: Start: 08-25-2022 Pneumococcal Vaccine: 65+ Years (2 - PCV) Pneumococcal Vaccine: 65+ Years (2 - PCV) [facility] Start: 08-25-2022 Pneumococcal Vaccine: 65+ Years (2 of 2 - PCV) Pneumococcal Vaccine: 65+ Years (2 of 2 - PCV) [facility] Start: 05-29-2022 [facility]UV, Provider: Helga Flores, Status: Pen, Time: 10:15 AM FUV, Provider: Helga Flores, Status: Pen, Time: 10:15 AM [facility] 250 DO Work Phone: Start: 05-01-2022 FUV, Provider: Helga Flores, Status: Pen, Time: 9:30 AM FUV, Provider: Helga Flores, Status: Pen, Time: 9:30 AM [facility] 600 DO Work Phone: Start: 03-21-2022 FUV, Provider: Helga Flores, Status: Pen, Time: 9:15 AM FUV, Provider: Helga Flores, Status: Pen, Time: 9:15 AM [facility] 250 DO Work Phone: Start: 03-14-2022 SURGNONUH, Provider: Margaux Castillo, Status: Pen, Time: 12:00 PM SURGNONUH, Provider: Margaux Castillo, Status: Pen, Time: 12:00 PM [facility] 600 DO Work Phone: Start: 11-09-2021 SURGNONUH, Provider: Martin Elias, Status: Pen, Time: 1:00 PM SURGNONUH, Provider: Martin Elias, Status: Pen, Time: 1:00 PM [facility] 600 DO Work Phone: Start: 10-12-2021 STRESS NUC, Provider: TANO HHVI NUCLEAR 01,[id number], Status: Pen, Time: 7:30 AM STRESS NUC, Provider: TANO HHVI NUCLEAR 01,[id number], Status: Pen, Time: 7:30 AM [facility] 250 DO Work Phone: Start: 02-07-2006 Zoster Vaccines (1 of 2) Zoster Vaccines (1 of 2) [facility] Start: 02-07-1978 DTaP/Tdap/Td Vaccines (1 - Tdap) DTaP/Tdap/Td Vaccines (1 - Tdap) [facility] Start: 02-07-1975 Urine screening for protein Diabetes: Urine Protein Screening [facility] Start: 02-07-1974 Hepatitis C screening Hepatitis C Screening [facility] Start: 02-07-1966 Diabetic foot examination Diabetes: Foot Exam [facility] Start: 02-07-1966 Glaucoma screening Diabetes: Retinopathy Screening [facility] Start: 1956 Creatinine measurement Creatinine Level [facility] Start: 1956 Echocardiography Echocardiogram [facility] Start: 1956 Hemoglobin A1c measurement Diabetes: Hemoglobin A1C [facility] Start: 1956 Lipid panel Lipid Panel [facility] Start: 1956 Medicare Annual Wellness Visit Medicare Annual Wellness Visit (AWV) [facility] Start: 1956 Potassium measurement Potassium Level [facility] Start: 1956 Screening for malignant neoplasm of colon [facility] Start: 1956 Thyroid stimulating hormone measurement TSH Level [facility] CBC W Auto Different ial panel - Blood CBC and differential Lab Routine Preventative health care Ordered: 12/01/2024 [facility] [employer] Comment on above: Ordered: 12/01/2024 Comprehensive metabo lic 2000 panel - Serum or Plasma Comprehensive metabolic panel Lab Routine Preventative health care Ordered: 12/01/2024 [facility] [employer] Work Phone: Comment on above: Ordered: 12/01/2024 Lipid 1996 panel - S mariely or Plasma Lipid panel Lab Routine Preventative health care Ordered: 12/01/2024 [facility] Comment on above: Ordered: 12/01/2024 Microalbumin/Creatin ine panel in random Urine Microalbumin / creatinine urine ratio Lab Routine Type 2 diabetes mellitus with other circulatory complications (CMS/HCC) Ordered: 12/01/2024 [facility] Comment on above: Ordered: 12/01/2024 Thyrotropin [Units/volume] in Serum or Plasma TSH Lab Routine Preventative health care Ordered: 12/01/2024 [facility] Comment on above: Ordered: 12/01/2024 Immunizations Immunization Date Immunization Notes Care Provider Ele mcneal 12-04-2024 Pneumococcal Conjuga te PCV 20 Joyce Loyd 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 Work 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: [facility] 08-04-2024 influenza, high dose seasonal, preservative-free Lashaun Bradley DO Work Phone: [facility] 08-04-2024 influenza virus vaccine, unspecified formulation Generic Provider [facility] 08-21-2023 Influenza, Seasonal, Quadrivalent, Adjuvanted [facility] STEVEN Work Phone: [facility] 08-21-2023 influenza virus vaccine, unspecified formulation [facility] PA Work Phone: [facility] 08-09-2023 RSV, recombinant, protein subunit RSVpreF, adjuvant reconstitu, 120mcg/0.5mL, PF (Arexvy) [facility] PA Work Phone: [facility] 08-02-2022 Fluzone High-Dose Quadrivalent 0.7 ML Intramuscular Suspension Prefilled Syringe Nitish Agrawal Work Phone: [facility] 250 DO Work Phone: 08-02-2022 Pfizer COVID-19 Vac Bivalent 30 MCG/0.3ML Intramuscular Suspension Nitish Agrawal Work Phone: [facility] 09-02-2021 Pfizer-BioNTech COVID-19 Vacc 30 MCG/0.3ML Intramuscular Suspension Nitish Agrawal Work Phone: [facility] 08-25-2021 Fluad Quadrivalent 0 .5 ML Intramuscular Prefilled Syringe Nitish Agrawal Work Phone: [facility] 250 DO Work Phone: 08-25-2021 pneumococcal polysaccharide vaccine, 23 valent Nitish Agrawal Work Phone: [facility] 02-06-2021 Pfizer-BioNTech COVID-19 Vacc 30 MCG/0.3ML Intramuscular Suspension Nitish Agrawal Work Phone: [facility] 01-16-2021 Pfizer-BioNTech COVID-19 Vacc 30 MCG/0.3ML Intramuscular Suspension Nitish Agrawal Work Phone: [facility] 01-15-2021 COVID-19 mRNA, Comirnaty (Pfizer) Nisha Farrar DPM Work Phone: [facility] [place] 11-22-2020 zoster vaccine recombinant Nitish Agrawal [facility] Phone[facility] 250 DO Work Phone: 11-22-2020 zoster vaccine, unspecified formulation Martin Elias DO Work Phone: [facility] Work Phone: 09-09-2020 influenza, high dose seasonal, preservative-free Nitish Agrawal Work Phone: [facility] 250 DO Work Phone: 09-05-2020 influenza virus vaccine, unspecified formulation Nitish Agrawal Work Phone: [facility] 250 DO Work Phone: 09-05-2020 influenza, seasonal, injectable Barikvng HARRIS Work Phone: [facility] 08-29-2020 influenza, injectabl e, quadrivalent, preservative free Nitish Agrawal [facility] Phone: [facility] 250 DO Work Phone: 08-29-2020 zoster vaccine recombinant Nitish Agrawal Work Phone: [facility] 250 DO Work Phone: 08-29-2020 zoster vaccine, unspecified formulation Martin Elias DO Work Phone: [facility] Work Phone: 09-07-2019 influenza virus vaccine, unspecified formulation Nitish Agrawal Work Phone: [facility] 250 DO Work Phone: 08-26-2019 Influenza, injectabl e, Madin Caitie Canine Kidney, preservative free, quadrivalent Nitish Agrawal Work Phone: [facility] 250 DO Work Phone: 11-05-2017 pneumococcal polysaccharide vaccine, 23 valent Nitish Agrawal Work Phone: [facility] 09-18-2017 influenza, injectabl e, quadrivalent, preservative free Nitish Agrawal Work Phone: [facility] 250 DO Work Phone: 08-06-2017 influenza, high dose seasonal, preservative-free Nitish Agrawal Work Phone: [facility] 250 DO Work Phone: 08-05-2016 influenza virus vaccine, unspecified formulation Nitish Agrawal Work Phone: [facility] 250 DO Work Phone: 07-24-2011 influenza, seasonal, injectable, preservative free Nitish Agrawal Work Phone: [facility] 250 DO Work Phone: 11-05-2010 influenza virus vaccine, unspecified formulation Nitish Agrawal Work Phone: [facility] 250 DO Work Phone: 08-05-2010 pneumococcal polysaccharide vaccine, 23 valent Nitish Agrawal Work Phone: [facility] 250 DO Work Phone: 08-13-2008 influenza, seasonal, injectable, preservative free Nitish Gordoner Work Phone: [facility] 250 DO Work Phone: influenza virus vaccine, unspecified formulation Nitish Gordoner Work Phone: [place] [address] DO Work Phone: Comment on above: Sep 2010 Payers Date Payer Category Payer Self-pay 2021 Medicare [id number] 2021 Private Health Insurance [employer] [id number] 2021 Unknown 2017 Unknown [id number] 1959 Medicare [id number] 1959 Unknown [id number] 2..840.1.244748.19 1956 Unknown [id number] 2.840.1.649605.3.579.2. 356 1956 Unknown [id number] 2.16.840.1.962145.3.579.2. 356 1956 Unknown [id number] 2.16840.1.548164.3.579.2. 356 1956 Unknown [id number] 2.16.840.1.705557.3.579.2. 593 1956 Unknown [id number] 2.16.840.1.124394.3.579.2. 593 1956 Unknown [id number] 2.16.840.1.682753.3.579.2. 593 1956 Unknown [id number] 2.16.840.1.798650.3.579.2. 593 1956 Unknown [id number] 2.16.840.1.401170.3.579.2. 593 1956 Unknown [id number] 2.16.840.1.123530.3.579.2. 593 1956 Unknown [id number] 2.16.840.1.440141.3.579.2. 593 1956 Unknown [id number] 2.16.840.1.208280.3.579.2. 593 1956 Unknown [id number] 2.16.840.1.053381.3.579.2. 593 1956 Unknown [id number] 2.16.840.1.240607.3.579.2. 593 1956 Unknown [id number] 2.16.840.1.912326.3.579.2. 593 1956 Unknown [id number] 2.16.840.1.270426.3.579.2. 593 1956 Unknown [id number] 2.16.840.1.155638.3.579.2. 593 1956 Unknown [id number] 2.16.840.1.011528.3.579.2. 593 1956 Unknown [id number] 2.16.840.1.313173.3.579.2. 593 1956 Unknown [id number] 2.16.840.1.336017.3.579.2. 593 1956 Unknown [id number] 2.16.840.1.923449.3.579.2. 593 1956 Unknown [id number] 2.16.840.1.663359.3.579.2. 593 1956 Unknown [id number] 2.16.840.1.657485.3.579.2. 593 1956 Unknown [id number] 2.16.840.1.487494.3.579.2. 593 1956 Unknown [id number] 2.16.840.1.837182.3.579.2. 1246 1956 Unknown [id number] 2.16.840.1.318189.3.579.2. 1245 1956 Unknown [id number] 2.16.840.1.854302.3.579.2. 1245 1956 Unknown [id number] 2.16.840.1.444581.3.579.2. 1245 1956 Unknown [id number] 2.16.840.1.316224.3.579.2. 1245 1956 Unknown [id number] 2.16.840.1.369124.3.579.2. 1258 1956 Unknown [id number] 2.16.840.1.770834.3.579.2. 1258 1956 Unknown [id number] 2.16.840.1.025608.3.579.2. 1258 1956 Unknown [id number] 2.16.840.1.630417.3.579.2. 1258 1956 Unknown [id number] 2.16.840.1.762045.3.579.2. 1258 1956 Unknown [id number] 2.16.840.1.965929.3.579.2. 1258 1956 Unknown [id number] 2.16.840.1.755670.3.579.2. 1259 1956 Unknown [id number] 2.16.840.1.739510.3.579.2. 1259 1956 Unknown [id number] 2.16.840.1.046715.3.579.2. 1259 1956 Unknown [id number] 2.16.840.1.173012.3.579.2. 1259 1956 Unknown [id number] 2.16.840.1.404059.3.579.2. 1244 1956 Unknown [id number] 2.16.840.1.448877.3.579.2. 1244 Unknown [id number] 2.16.840.1.022375.3.579.2. 531 Social History Date Type Detail Facility Start: 01-29-2024 End: 03-27-2025 Caffeine use Caffeine use -[facility] 250 DO Work Phone: Comment on above: occassional; Start: 01-29-2024 End: 03-27-2025 Sex Assigned At [facility] [employer] Other Start: 01-29-2024 End: 06-16-2024 Tobacco smoking status NHIS Never smoked tobacco [facility] Start: 01-29-2024 End: 06-16-2024 Tobacco use and exposure Smokeless tobacco non-user [facility] Work Phone: Start: 01-29-2024 End: 03-27-2025 Alcohol intake Lifetime non-drinker (finding) [facility] Work Phone: Start: 1955 Sex Assigned At Not on file [facility] Work Phone: Start: 01-19-2024 End: 01-30-2025 Exposure to SARS-CoV-2 (event) Not sure [facility] How often to you hav e a drink containing alcohol? Never [facility] How many standard drinks containing alcohol do you have on a typical day? Patient does not drink [facility] Start: 1955 Sex assigned at Male [facility] Start: 09-23-2024 Gender identity Identifies as male gender (finding) [facility] Work Phone: Start: 03-10-2022 Tobacco smoking status NHIS Ex-smoker (finding) [facility] [place] Sex Male (finding) [facility] NEGATED: Highlighted rowStart: NINF History of tobacco use Passive smoker [facility] Medical Equipment Procedure Code Equipment Code Equipment Origin al Text Equipment Identifier Dates Fsbs daily [id number] Start: 03-03-2024 Fsbs daily [id number] Start: 03-03-2024 Drug-eluting coronary artery stent, [id number]-[id number] lymer-coated ()[id number] [id number] FDA Start: 11-09-2021 Drug-eluting coronary artery stent, [id number] lymer-coated ()[id number] [id number] FDA Start: 11-09-2021 Femoral artery closure plug/patch, synthetic polymer ()[id number] [id number] FDA Start: 11-09-2021 Clinical Notes 10-08-2017 to [...] around large groups. Pt was told by [employer] he wants to have a stress test [...] questions or concerns. documented in this encounter [facility] 01-28-2025 History of Presen t illness [...] discussion and plan. documented in this encounter [facility] Work Phone: 01-28-2025 Instructions Mandi Oakley LPN [...] instructions on exercise. documented in this encounter [facility] Work Phone: 12-04-2024 History of Presen t [...] (H) 0.70 - 1.30 mg/dL [facility] EGFR-AF LIBYAN >60 >=60 mL/min/1.73m 2 TBH EGFR-NON AF LIBYAN 51 (L) >=60 mL/min/1.73m 2 BUN CREATININE [...] the patient today. documented in this encounter [facility] 12-01-2024 History of Presen t illness [...] diabetes mellitus with other circulatory complications ([facility]/HCC) Anemia, unspecified Atherosclerotic heart disease of [place] coronary artery without angina pectoris (CMS/HCC) Gastro-esophageal reflux disease without esophagitis Osteoarthritis of knee, unspecified Stage 3a chronic kidney disease (CKD) (CMS/HCC) Hypertension (CMS/HCC) Hyperlipidemia (CMS/HCC) History of coronary artery bypass graft Type 2 diabetes mellitus with stage 3a chronic kidney disease, without long-term current use of insulin (HCC) ([facility]) Social History Tobacco Use Smoking status: Never [...] long-term current use of insulin (HCC) ([facility]/HCC) Other Visit Diagnoses Preventative health care Relevant [...] FOR 90 DAYS BLOOD GLUCOSE MONITORING SUPPL ([employer] VERIO FLEX SYSTEM) W/DEVICE KIT CARVEDILOL (COREG) [...] by mouth in the morning. GLUCOSE BLOOD ([email or web address] VERIO) TEST STRIP Fsbs daily ISOSORBIDE MONONITRATE [...] (five) minutes if needed for chest pain. [email or web address] DELICA LANCETS 33G MISC Fsbs daily SEMAGLUTIDE, 2 MG/DOSE, (OZEMPIC, 2 MG/DOSE,) 8 MG/3ML SOLUTION PEN-INJECTOR Inject 2 mg under the skin 1 (one) time per week Modified Medications No medications on file Discontinued Medications No medications on file I have reviewed and reconciled the history and medication list with the patient today. documented in this encounter [facility] 09-01-2024 History of Presen t illness Narrative Associated Problem(s): Type 2 diabetes mellitus with other circulatory complications ([facility]) During the appointment today all pertinent labs, [...] diabetes mellitus with other circulatory complications ([facility]) Anemia, unspecified Atherosclerotic heart disease of [place] coronary artery without angina pectoris ([facility]) Gastro-esophageal reflux disease without esophagitis Osteoarthritis of knee, unspecified Stage 3a chronic kidney disease (CKD) ([facility]) Hypertension ([facility] Hyperlipidemia ([facility]) History of coronary artery bypass graft Type 2 diabetes mellitus with stage 3a chronic kidney disease, without long-term current use of insulin ([facility]) ([facility]) Social History Tobacco Use Smoking status: Never [...] FOR 90 DAYS BLOOD GLUCOSE MONITORING SUPPL (Tiempo VERIO FLEX SYSTEM) W/DEVICE KIT CARVEDILOL (COREG) [...] the patient today. 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 BMI 29.0-29.9,adult 9. Never smoked tobacco [...] discussion and plan. documented in this encounter [facility] Work Phone: 01-29-2024 Instructions Sheri Newman LPN [...] instructions on exercise. documented in this encounter [facility] Work Phone: 05-10-2023 Evaluation note Encounter Date [...] the ER for worsening symptoms or concerns. [employer] Other 01-24-2023 NotePROCEDURE: XR FOOT RT MIN [...] Electronically authenticated by: HUSAM GAMEZ Date: 2022-11-28 15:28[facility]08-08-2022 NotePROCEDURE: XR FOOT RT MIN 3 [...] authenticated by: ROSA MARIA MATOS Date: 2022-06-12 21:05[facility]08-02-2022 NotePROCEDURE: XR FOOT RT MIN 3 [...] Electronically authenticated by: HUSAM GAMEZ Date: 2022-06-06 19:33[facility]05-19-2022 NotePROCEDURE: XR FOOT RT MIN 3 [...] Electronically authenticated by: HUSAM GAMEZ Date: 2022-03-23 11:[address] [place], [place] 0403012-06-2021 Evaluation note* Encounter Date Diagnosis Assessment Notes Treatment Notes Treatment Clinical Notes Oct, Sore throat (ICD-10 - J02.9) symptoms appear viral in nature. Reassurance given. . Saltwater gargles may help with pain and disrupts bacteria and viral infections. Continue tylenol/ibu for general discomfort. Encourage fluids. Symptoms should improve within the next 4-7 days. [employer] Other 12-04-2017 History general Narrative - Reported* Type Description Date Medical History Diabetes mellitus Medical History Hyperlipidemia Medical History Hypothyroidism Surgical History CABG 1992 Surgical History cardiac stent 2002 Surgical History right knee arthroplasty 10/08/20 Surgical History left knee arthroplasty 03/2016 Surgical History Foot Surgery Hospitalization History see above surgical histo ry [facility] Other Evaluation note* Diagnosis Arteriosclerotic cardiovascular disease (ASCVD) Unspecified cardiovascular disease History of coronary artery bypass graft Postsurgical aortocoronary bypass status Multiple vessel coronary artery disease Status post angioplasty Postsurgical percutaneous transluminal coronary angioplasty status Hypertension, unspecified type Mixed hyperlipidemia Other specified diabetes mellitus with other specified complication, with long- term current use of insulin ([facility]) BMI 29.0-29.9,adult Never smoked tobacco documented in this encounter [facility] Work Phone: Evaluation note* Diagnosis Type 2 [...] mellitus with hyperosmolarity without coma, unspecified whether mcc insulin use (CMS/HCC) Type 2 diabetes mellitus with stage 3a chronic kidney disease, without long-term current use of insulin (HCC) (CMS/HCC) Type 2 diabetes mellitus with other circulatory complications (CMS/HCC) Type 2 diabetes mellitus with other circulatory complications (CMS/HCC) documented in this encounter [facility] HealthcareEvaluation note* Diagnosis Type 2 diabetes mellitus with other circulatory complications (CMS/HCC)- Primary Screening for prostate cancer Special screening for malignant neoplasm of prostate Type 2 diabetes mellitus with stage 3a chronic kidney disease, without long-term current use of insulin (HCC) (CMS/HCC)- Primary Type 2 diabetes mellitus with other circulatory complications (CMS/HCC) Type 2 diabetes mellitus with hyperosmolarity without coma, unspecified whether terminologist insulin use (CMS/HCC) Type 2 diabetes mellitus [...] circulatory complications (CMS/HCC) documented in this encounter [facility] HealthcareEvaluation note* Diagnosis Other seborrheic dermatitis- Primary Acrochordon Unspecified hypertrophic and atrophic condition of skin Other specified erythematous conditions Inflamed seborrheic keratosis documented in this encounter [facility] HealthcareEvaluation note* Diagnosis Type 2 diabetes mellitus with other circulatory complications (CMS/HCC)- Primary Screening for prostate cancer Special screening for malignant neoplasm of prostate Type 2 diabetes mellitus with stage 3a chronic kidney disease, without long-term current use of insulin (HCC) (CMS/HCC)- Primary Type 2 diabetes mellitus with other circulatory complications (CMS/HCC) Type 2 diabetes mellitus with hyperosmolarity without coma, unspecified whether mcc insulin use (CMS/HCC) Type 2 diabetes mellitus [...] neoplasm of prostate documented in this encounter [facility] HealthcareEvaluation note* Diagnosis Type 2 diabetes mellitus with other circulatory complications (CMS/HCC)- Primary Screening for prostate cancer Special screening for malignant neoplasm of prostate Type 2 diabetes mellitus with stage 3a chronic kidney disease, without long-term current use of insulin (HCC) (CMS/HCC)- Primary Type 2 diabetes mellitus with other circulatory complications (CMS/HCC) Type 2 diabetes mellitus with hyperosmolarity without coma, unspecified whether mcc insulin use (CMS/HCC) Type 2 diabetes mellitus [...] hyperlipidemia type (CMS/HCC) documented in this encounter [facility] HealthcareEvaluation note* Diagnosis Arteriosclerotic cardiovascular disease [...] to ischemic cardiomyopathy documented in this encounter [facility] Work Phone: Evaluation note* Diagnosis Type 2 [...] mellitus with hyperosmolarity without coma, unspecified whether terminologist insulin use (CMS/HCC) Type 2 diabetes mellitus [...] Anxiety state, unspecified documented in this encounter [facility] HealthcareEvaluation note* Diagnosis Type 2 diabetes mellitus with other circulatory complications- Primary Screening for prostate cancer Special screening for malignant neoplasm of prostate Type 2 diabetes mellitus with stage 3a chronic kidney disease, without long-term current use of insulin (HCC) (CMS/HCC)- Primary Type 2 diabetes mellitus with other circulatory complications Type 2 diabetes mellitus with hyperosmolarity without coma, unspecified whether mcc insulin use (CMS/HCC) Type 2 diabetes mellitus [...] Tachycardia Unspecified tachycardia documented in this encounter [facility] Work Phone: Evaluation noteNo assessment information available [facility] Work Phone: Evaluation note* Diagnosis Type 2 diabetes mellitus with other circulatory complications (HCC)- Primary Screening for prostate cancer Special screening for malignant neoplasm of prostate Type 2 diabetes mellitus with stage 3a chronic kidney disease, without long-term current use of insulin (HCC)- Primary Type 2 diabetes mellitus with other circulatory complications (HCC) Type 2 diabetes mellitus with hyperosmolarity without coma, unspecified whether terminologist insulin use (HCC) Type 2 diabetes mellitus [...] was done remotely back in 1992 at [facility]. He had a WALL graft to the [...] completed. No change made to medications today. [facility] 250 DO Work Phone: History of Present illness Narrative* Mr. Ford is a 66-year-old male who is seen back today for follow-up on his history of coronary disease. He had remote bypass surgery that was done back in 1992 at [facility].He had a WALL graft to [...] This will be arranged for him through [facility]. He is to return in 6 months for follow-up. [facility] [address] DO Work Phone: History of Present illness Narrative* Mr. Ford is a 67-year-old male who is seen back today for follow-up on his history of coronary disease. He had remote bypass surgery that was done back in 1992 at [facility]. 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 This was redilated and stented. He had a recent episode at cardiac rehab in [place] and because of this was seen in [...] is to return in 6 months. [facility] [employer] DO Work Phone: History of Present illness [...] 90 tablet 3 Blood Glucose Monitoring Suppl (P[employer] Verio Flex System) w/Device kit carvedilol (Coreg) [...] Do you have a medical power of mystery shopper?: Yes Who is your medical power of mystery shopper?: alexis Ford Objective : BP 120/78 Pulse [...] vaccine 20-valent IM Hypertension, unspecified type ([facility]/HCC) Stage 3a chronic kidney disease (CKD) ([facility]) Type 2 diabetes mellitus with stage 3a chronic kidney disease, without long-term current use of insulin (HCC) ([facility]) Hyperlipidemia, unspecified hyperlipidemia type ([facility]) Patient here for annual Medicare Wellness visit. [...] Up In Cardiology Martin Elias DO [address] [facility] [address], [address] [place] [id number] Martin Elias, [address] [facility], [address] [place] [address] Referral ID Status Reason Start Date Expiration Date V isits Requested Visits Authorized [id number] Authorized 01/29/2024 01/28/2025 1 1 [facility] Work Phone: Reecgc for referral (narrative)No reason for referral [facility]: Reason for visit Narrative* Cardiac Stress Testing (Routine) - Authorized Specialty Diagnoses / Procedures Referred By Contac t Referred To Contact Radiology Diagnoses 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 Status post angioplasty Angina pectoris Palpitations Tachycardia Procedures Nuclear Stress Test CHG MYOCARDIAL SPECT MULTIPLE STUDIES Martin Elias DO [address] [facility] [address], [address] [address] Phone: tel: fax: Referral ID Status Reason Start Date Expiration Date V isits Requested Visits Authorized [id number] Authorized 01/28/2025 01/28/2026 5 5 [facility] Work Phone: reason for visit Narrative* Cardiac Stress Testing (Routine) - Authorized Specialty Diagnoses / Procedures Referred By Contac t Referred To Contact Radiology Diagnoses 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 dical Specialist DATE CREATED AUTHOR AUTHOR'S ORGANIZ ATION 03/03/2022 [facility] DATE CREATED AUTHOR AUTHOR'S ORGANIZ ATION 01/24/2023 [employer] DATE CREATED AUTHOR AUTHOR'S ORGANIZ ATION 02/20/2023 [facility] DATE CREATED AUTHOR AUTHOR'S ORGANIZ ATION 03/21/2023 [facility] DATE CREATED AUTHOR AUTHOR'S ORGANIZ ATION 03/18/2025 [facility] DATE CREATED AUTHOR AUTHOR'S ORGANIZ ATION 04/02/2025 [facility] dical Specialists [facility] DATE CREATED AUTHOR AUTHOR'S ORGANIZ ATION 05/10/2025 [facility] DATE CREATED AUTHOR AUTHOR'S ORGANIZ ATION 05/28/2025 [facility] ysician Group REASON FOR VISIT (unrecogniz [...] Up In Cardiology Martin Elias, DO [address] [facility] [address], [address] [address] Phone: tel: fax: Martin Elias, DO [facility], [address] [place] [address] Phone: tel: fax: Referral ID Status Reason Start Date Expiration Date V isits Requested Visits Authorized [id number] Authorized 01/29/2024 01/28/2025 1 1 Reason Comments Anxiety Pt presents to discu anxiety. Pt notes periods of chest tightness when going to work on things, noticing a difference in personality when around large groups. Pt was told by [employer] he wants to have a stress test and he started to get all tense about this. Reason Comments Med Refill Care Teams (unrecognized sec tion and content) Net C Developer Relationship Specialty Start Date End Date Nitish Agrawal DO [address] [place] [phone] PCP - General 09/18/19 Net [employer] Developer Relationship Specialty Start Date End Date Lashaun Bradley DO [address] [place] [address] PCP - ACO Reach 03/29/23 Nitish Agrawal DO [address] [place] [address] PCP - General Family Medicine 03/13/23 Net C Developer Relationship Specialty Start Date End Date Lashaun Bradley DO [address] [place] [address] PCP - ACO Reach 03/29/23 Nitish Agrawal, DO [address] [place] [address] PCP - General Family Medicine 03/13/23 Net C Developer Relationship Specialty Start Date End Date Lashaun Bradley, DO [address] [place] [address] PCP - ACO Reach 03/29/23 Nitish Agrawal, DO [address] [place] [address] PCP - General Family Medicine 03/13/23 Net C Developer Relationship Specialty Start Date End Date Lashaun Bradley, DO [address] [place] [address] PCP - ACO Reach 03/29/23 Nitish Agrawal, DO [address] [place] [address] PCP - General Family Medicine 03/13/23 Net C Developer Relationship Specialty Start Date End Date Lashaun Bradley, DO [address] [place] [address] PCP - ACO Reach 03/29/23 Nitish Agrawal, DO [address] [place] [address] PCP - General Family Medicine 03/13/23 Net C Developer Relationship Specialty Start Date End Date Lashaun Bradley, DO [address] [place] [address] PCP - ACO Reach 03/29/23 Nitish Agrawal, DO [address] [place] [address] PCP - General Family Medicine 03/13/23 Net C Developer Relationship Specialty Start Date End Date Lashaun Bradley, DO [address] [place] [address] PCP - ACO Reach 03/29/23 Nitish Agrawal, DO [address] [place] [address] PCP - General Family Medicine 03/13/23 Elliot Elias MD [address] [facility] [address] [place] [address] Referring Physician Cardiology 12/04/24 Nisha Farrar MD [address] [place] [address] [place] [address] Referring Physician Podiatry 12/04/24 Net C Developer Relationship Specialty Start Date End Date Lashaun Bradley, DO [address] [place] [address] PCP - ACO Reach 03/29/23 Nitish Agrawal, DO [address] [place] [address] PCP - General Family Medicine 03/13/23 Net C Developer Relationship Specialty Start Date End Date Nitish Agrawal, [facility] [address] [place] [phone] PCP - General 09/18/19 Net C Developer Relationship Specialty Start Date End Date Lashaun Bradley, DO [address] [place] [address] PCP - ACO Reach 03/29/23 Nitish Agrawal, DO [address] [place] [address] PCP - General Family Medicine 03/13/23 Elliot Elias MD [address] [place] [address] Referring Physician Cardiology 12/04/24 Nisha Farrar MD [facility] [place] [address] Referring Physician Podiatry 12/04/24 Net C Developer Relationship Specialty Start Date End Date Lashaun Bradley, DO [address] [place] [address] PCP - ACO Reach 03/29/23 Nitish Agrawal, DO [address] [place] [address] PCP - General Family Medicine 03/13/23 Elliot [facility]as MD [facility] [address] [place] [address] Referring Physician Cardiology 12/04/24 Nisha Farrar MD [address] [place], [place] [address] [place] [address] Referring Physician Podiatry 12/04/24 Net C Developer Relationship Specialty Start Date End Date Lashaun Bradley DO [address] [place] [address] PCP - ACO Reach 03/29/23 Nitish Agrawal DO [address] [place] [address] PCP - General Family Medicine 03/13/23 Elliot Elias MD [address] [facility] [address], [address] [place] [address] Referring Physician Cardiology 12/04/24 Nisha Farrar MD [facility] [place] [address] Referring Physician Podiatry 12/04/24 Net C Developer Relationship Specialty Start Date End Date Lashaun Bradley, DO [address] [place] [address] PCP - ACO Reach 03/29/23 Nitish Agrawal, [address] [place] [address] PCP - General Family Medicine 03/13/23 Elliot Elias MD [address] [facility] [address], [address] [place] [address] Referring Physician Cardiology 12/04/24 Nisha Farrar MD [facility] [place] [address] Referring Physician Podiatry 12/04/24 Net C Developer Relationship Specialty Start Date End Date Nitish Agrawal DO [address] [phone] PCP - General 09/18/19 Net C Developer Relationship Specialty Start Date End Date Nitish Agrawal, DO [address] [place] [address] PCP - General 09/18/19 Net C Developer Relationship Specialty Start Date End Date Nitish Agrawal, DO [address] [place] [address] PCP - General 09/18/19 Net C Developer Relationship Specialty Start Date End Date Nitish Agrawal DO [address] [place] [address] PCP - General 09/18/19 Net C Developer Relationship Specialty Start Date End Date Lashaun Bradley DO [address] [place] [address] PCP - ACO Reach 03/29/23 Nitish Agrawal DO [address] [place] [address] PCP - General Family Medicine 03/13/23 Elliot Elias MD [address] [place] [address] [address], [address] [place] [address] Referring Physician Cardiology 12/04/24 Nisha Farrar MD [address] [place] [address] [place] [address] Referring Physician Podiatry 12/04/24 Net C Developer Relationship Specialty Start Date End Date Lashaun Bradley DO [address] [place] [address] PCP - ACO Reach 03/29/23 Nitish Agrawal, [address] [place] [address] PCP - General Family Medicine 03/13/23 Elliot Elias MD [address] [place] [address] Referring Physician Cardiology 12/04/24 Nisha Farrar MD [facility] [place] [address] Referring Physician Podiatry 12/04/24 Team Status: Inactive Member Role Status Dates Nisha Farrar DPM MS Attending Provider Active Start: May 19, 2025 End: May 19, 2025 Net C Developer Relationship Specialty Start Date End Date Lashaun Bradley DO [address] [place] [address] PCP - ACO Reach 03/29/23 Nitish Agrawal, [address] [place] [address] PCP - General Family Medicine 03/13/23 Elliot Elias MD [address] [place] [address] Referring Physician Cardiology 12/04/24 Nisha Farrar MD [address] [place], [place] [address] [place] [address] Referring Physician Podiatry 12/04/24 Goals (unrecognized section [...] BE BASED ON THE PRIMARY CLINICAL RECORDS. [facility]. provides no warranty or guarantee of the accuracy or completeness of information in this document.
== END 2025-07-14 09:26 | disposition home or self-care (01) ==
LOC: WC 09:25
PROVIDERS: PCP Family Medicine; Visit Provider Physician Assistant
DX: E11.621 Type 2 diabetes mellitus with foot ulcer (principal); L97.522 Non-pressure chronic ulcer of other part of left foot with fat layer exposed
CPT/HCPCS: G0463

== ENCOUNTER 2025-08-04 09:52 | Outpatient (OUT) | payer MEDICARE, OTHER, SELFPAY | END 2025-08-04 09:53 | disposition home or self-care (01) | LOC: WC 09:53 | PROVIDERS: PCP Family Medicine; Visit Provider Physician Assistant | DX: E11.621 Type 2 diabetes mellitus with foot ulcer (principal); L97.522 Non-pressure chronic ulcer of other part of left foot with fat layer exposed | CPT/HCPCS: G0463 ==